=== PATIENT | male | born 1965 | race Caucasian/White ===

== ENCOUNTER → 2017-10-26 16:55 | Outpatient (CLI) | payer OTHER, SELFPAY ==
[2017-10-26 17:10] LABS: Absolute Lymphocyte Count 2.62 X10^3/ul (0.83-4.51); Absolute Neutrophil Count 7.2 X10^3/uL (2.0-7.7); Basophil# 0.02 X10^3/uL; Basophil% 0.2 % (0-1); Differential Indicated SCAN CRITERIA MET; Eosinophil# 0.07 X10^3/uL; Eosinophils% 0.7 % (0-5); Hematocrit 39.6 % (40-54); Hemoglobin 11.9 g/dl (13.0-16.5); Lymphocyte # 2.62 X10^3/ul (4.0); Mean Corp Hgb Conc 30.1 g/gl (32-36); Mean Corpuscular Hgb 22.5 pg (27.0-32.0); Mean Corpuscular Volume 74.9 fL (80-94); Mean Platelet Vol. 9.1 fl (6.2-12.0); Monocyte# 0.54 X10^3/uL; Monocyte% 5.2 % (0-10); Neutrophil # 7.19 X10^3/uL (2.7-7.7); Neutrophil % 68.6 % (47-70); POSITIVE COUNT NO; POSITIVE DIFFERENTIAL NO; POSITIVE MORPHOLOGY YES; Platelet Count 465 K/mm3 (150-450); RBC Distribution Width CV 17.4 % (11.6-14.6); RBC Distribution Width SD 45.7 fl (35.1-43.9); Red Blood Count 5.29 M/mm3 (4.6-6.2); White Blood Count 10.5 K/mm3 (4.4-11.0)
[2017-10-26 17:25] LABS: ALB/GLOB Ratio 0.4 RATIO (0.9-2.4); AST(SGOT) 6 U/L (15-37); Alanine Aminotransfer ALT/SGPT 13 U/L (16-61); Albumin, Serum 2.7 g/dL (3.2-5.0); Alkaline Phosphatase 131 U/L (45-117); Anion Gap 7 (5-15); BUN 6 mg/dL (7-18); BUN/Creat Ratio 6.7 RATIO (10-20); Calcium,Total 9.4 mg/dL (8.5-10.1); Chloride 99 mmol/L (98-107); EST Glomerular Filtration Rate 94 mL/min (>60); Est Glom Filt Rate - Afr Amer 113 mL/min (>60); Globulin 7.1 g/dL (2.2-4.2); Glucose 206 mg/dL (74-106); Potassium 4.4 mmol/L (3.5-5.1); Prealbumin 18.8 mg/dL (20.0-40.0); Protein, Total 9.8 g/dL (6.4-8.2); Sodium Level 135 mmol/L (136-145)
[2017-10-26 17:38] LABS: Differential Comment SCANNED
== END ==
PROVIDERS: Visit Provider Nurse Practitioner
DX: E44.0 Moderate protein-calorie malnutrition (principal); E11.8 Type 2 diabetes mellitus with unspecified complications; E11.65 Type 2 diabetes mellitus with hyperglycemia; D50.9 Iron deficiency anemia, unspecified
CPT/HCPCS: 80053; 84134; 84550; 85025

== ENCOUNTER → 2018-08-09 18:54 | Outpatient (CLI) | payer OTHER, SELFPAY ==
[2018-08-09 10:03] VITALS: BMI 26.1
[2018-08-09 19:55] LABS: ALB/GLOB Ratio 0.4 RATIO (0.9-2.4); AST(SGOT) 9 U/L (15-37); Alanine Aminotransfer ALT/SGPT 15 U/L (16-61); Albumin, Serum 2.7 g/dL (3.2-5.0); Alkaline Phosphatase 123 U/L (45-117); Anion Gap 7 (5-15); BUN 9 mg/dL (7-18); Chloride 102 mmol/L (98-107); Cholesterol 177 mg/dL (200); EST Glomerular Filtration Rate 83 mL/min (>60); Est Glom Filt Rate - Afr Amer 100 mL/min (>60); Globulin 6.7 g/dL (2.2-4.2); Glucose 219 mg/dL (74-106); High Density Lipoprotein 47 mg/dL; Magnesium 2.1 mg/dL (1.6-2.6); Potassium 4.4 mmol/L (3.5-5.1); Prealbumin 27.5 mg/dL (20.0-40.0); Protein, Total 9.4 g/dL (6.4-8.2); Sodium Level 137 mmol/L (136-145); Triglycerides 86 mg/dL; Very Low Density Lipoprotein 17 mg/dL (5-40)
[2018-08-09 19:56] LABS: Absolute Lymphocyte Count 2.84 X10^3/ul (0.83-4.51); Absolute Neutrophil Count 9.2 X10^3/uL (2.0-7.7); Basophil# 0.05 X10^3/uL; Basophil% 0.4 % (0-1); Eosinophils% 0.8 % (0-5); Hemoglobin 11.9 g/dl (13.0-16.5); Lymphocyte # 2.84 X10^3/ul (4.0); Lymphocyte % 21.9 % (19-41); Mean Corp Hgb Conc 30.5 g/gl (32-36); Mean Corpuscular Hgb 22.8 pg (27.0-32.0); Mean Corpuscular Volume 74.9 fL (80-94); Mean Platelet Vol. 9.5 fl (6.2-12.0); Monocyte# 0.71 X10^3/uL; Monocyte% 5.5 % (0-10); Neutrophil # 9.23 X10^3/uL (2.7-7.7); Neutrophil % 71.2 % (47-70); Platelet Count 386 K/mm3 (150-450); RBC Distribution Width CV 15.4 % (11.6-14.6); Red Blood Count 5.21 M/mm3 (4.6-6.2)
[2018-08-09 19:59] LABS: Differential Indicated SCAN CRITERIA MET; POSITIVE COUNT YES; POSITIVE DIFFERENTIAL NO; POSITIVE MORPHOLOGY YES
[2018-08-09 20:26] LABS: Anisocytosis RARE; Differential Comment SCANNED; Hypochromasia RARE
== END ==
PROVIDERS: Referring Provider Nurse Practitioner; Visit Provider Nurse Practitioner
DX: E46 Unspecified protein-calorie malnutrition (principal); L73.2 Hidradenitis suppurativa; R25.2 Cramp and spasm; E11.65 Type 2 diabetes mellitus with hyperglycemia
CPT/HCPCS: 80053; 80061; 83735; 84134; 85025; 86140

== ENCOUNTER → 2019-08-04 21:59 | Outpatient (CLI) | payer OTHER, SELFPAY ==
[2019-08-04 18:36] VITALS: BMI 27.2
[2019-08-04 22:11] LABS: Absolute Lymphocyte Count 2.85 X10^3/uL (0.83-4.51); Absolute Neutrophil Count 5.3 X10^3/uL (2.0-7.7); Basophil# 0.06 X10^3/uL; Basophil% 0.7 % (0-1); Eosinophil# 0.11 X10^3/uL; Eosinophils% 1.2 % (0-5); Hematocrit 31.8 % (40-54); Hemoglobin 9.3 g/dL (13.0-16.5); Lymphocyte # 2.85 X10^3/ul (4.0); Lymphocyte % 31.9 % (19-41); Mean Corp Hgb Conc 29.2 g/dL (32-36); Mean Corpuscular Hgb 22.4 pg (27.0-32.0); Mean Corpuscular Volume 76.4 fL (80-94); Monocyte# 0.61 X10^3/uL; Monocyte% 6.8 % (0-10); NRBC Flagged by Analyzer 0 % (0-5); Neutrophil # 5.28 X10^3/uL (2.7-7.7); Neutrophil % 59.1 % (47-70); Platelet Count 234 K/mm3 (150-450); RBC Distribution Width CV 17.1 % (11.6-14.6); RBC Distribution Width SD 46.3 fl (35.1-43.9); Red Blood Count 4.16 M/mm3 (4.6-6.2); White Blood Count 8.9 K/mm3 (4.4-11.0)
[2019-08-04 22:19] LABS: ALB/GLOB Ratio 0.4 RATIO (0.9-2.4); AST(SGOT) 13 U/L (15-37); Alanine Aminotransfer ALT/SGPT 15 U/L (16-61); Albumin, Serum 2.3 g/dL (3.2-5.0); Alkaline Phosphatase 116 U/L (45-117); Anion Gap 5 (5-15); BUN 5 mg/dL (7-18); BUN/Creat Ratio 4.4 RATIO (10-20); Calcium,Total 8.8 mg/dL (8.5-10.1); Chloride 100 mmol/L (98-107); Cholesterol 170 mg/dL (200); Creatinine, Serum 1.13 mg/dL (0.70-1.30); EST Glomerular Filtration Rate 71 mL/min (>60); Est Glom Filt Rate - Afr Amer 86 mL/min (>60); Globulin 6.4 g/dL (2.2-4.2); Glucose 176 mg/dL (74-106); High Density Lipoprotein 50 mg/dL; Potassium 4.1 mmol/L (3.5-5.1); Protein, Total 8.7 g/dL (6.4-8.2); Sodium Level 136 mmol/L (136-145); Triglycerides 99 mg/dL; Very Low Density Lipoprotein 20 mg/dL (5-40)
== END ==
PROVIDERS: Referring Provider Nurse Practitioner; Visit Provider Nurse Practitioner
DX: E11.65 Type 2 diabetes mellitus with hyperglycemia (principal)
CPT/HCPCS: 80053; 80061; 85025

== ENCOUNTER → 2020-01-04 09:54 | Outpatient (CLI) | payer OTHER, SELFPAY ==
[2019-12-28 19:00] VITALS: BMI 27.1
== END ==
PROVIDERS: PCP Nurse Practitioner; Referring Provider Nurse Practitioner; Visit Provider Nurse Practitioner
DX: L73.2 Hidradenitis suppurativa (principal)
CPT/HCPCS: 87635; C9803; U0003

== ENCOUNTER 2020-03-22 08:46 | Observation (INO) | payer OTHER, SELFPAY ==
[2020-02-17 11:14] VITALS: BMI 27.7
[2020-03-11 12:16] VITALS: BMI 26.6
--- NOTE | 2020-03-16 15:59 | EKG12_ITS ---
Test Reason : PRE-OP Blood Pressure : / mmHG Vent. Rate : 080 BPM Atrial Rate : 080 BPM P-R Int : 128 ms QRS Dur : 096 ms QT Int : 374 ms P-R-T Axes : -21 062 097 degrees QTc Int : 431 ms Normal sinus rhythm Nonspecific T wave abnormality Abnormal ECG Confirmed by JOHN RODRIGUEZ, RAN ([id number]), newspaper managing editor JORDON DODD ([id number]) on 03/17/2020 9:53:09 AM Referred By: Cortez Smith Confirmed By:RAN LOPEZ MD
--- NOTE | 2020-03-21 20:38 | PCM.HP.BLA ---
History and Physical Date of Admission: 03/22/20 HISTORY OF PRESENT ILLNESS 54 year old man presents with longstanding hidradenitis in his bilateral inguinal areas, perineal area, and bilateral perianal areas. He is currently on Remicade. He has been on antibiotics intermittently in the past. He has had recent drainage and increasing pain in these areas. He denies fever. He has a history of diabetes mellitus and he had a HgbA1c in 03/11/20 which was 8.8. His last dose of Remicade was 02/09/20. His next dose of Remicade was scheduled for 03/08/20 and was put on hold. He presents at this time to discuss surgical options for treatment. PAST MEDICAL HISTORY Hidradenitis suppurativa of anus Anemia Malnutrition Pneumonia involving right lung COPD (chronic obstructive pulmonary disease) Diabetes type 2, uncontrolled Heart disease Hydradenitis Hyperlipidemia associated with type 2 diabetes mellitus Myocardial infarct Hypertension PAST SURGICAL HISTORY removal of cyst tonsillectomy and adenoidectomy hernia repair Stented coronary artery ALLERGIES Penicillins Sulfa (Sulfonamide Antibiotics) bupropion [From Wellbutrin] MEDICATIONS ferrous sulfate infliximab - on hold tramadol empagliflozin-metformin ER lisinopril semaglutide minocycline FAMILY HISTORY Aunt - Lung disease, lung cancer Father - Heart disease, Hypertension, high cholesterol, Diabetes Mother - Diabetes Daughter - Epilepsy SOCIAL HISTORY Smoking Status: Current every day smoker counseling given: provider counseling, counseling >10 minutes alcohol intake: never substance use type: does not use REVIEW OF SYSTEMS General - Denies fever and weight loss. Has fatigue. Eyes - Denies cataracts and glaucoma. ENT - Denies nasal congestion and sore throat. Has chronic sinus problems. Endocrine - Denies excessive thirst and urination. Skin - Denies suspicious lesions and skin cancer. Has multiple areas of hidradenitis involving bilateral inguinal areas, perineal area, and bilateral perianal areas. Musculoskeletal - Has joint pain and joint stiffness. Denies weakness of muscles and joints, back pain, and arthritis. Neuro - Denies headaches. Has lightheadedness. Cardiovascular - Denies chest pain and shortness of breath with exertion. Has fatigue and lightheadedness. Psych - Denies anxiety and depression. Respiratory - Denies chronic cough and shortness of breath. Patient is a smoker. Gastrointestinal - Denies nausea, vomiting and constipation. Has diarrhea. Hematologic - Denies abnormal bruising and bleeding. Has anemia. Genitourinary - Denies hematuria and urinary frequency. PHYSICAL EXAMINATION General - Alert and Oriented. HEENT - PERRL. EOMI. Throat is clear. Neck - Supple and nontender. No cervical adenopathy. Lungs - Clear to auscultation. Heart - Regular rate and rhythm. Abdomen - Soft and nondistended. On bilateral inguinal areas are extensive hidradenitis with induration, redness, and tenderness. No fluctuance. No purulent drainage. The left inguinal area measures 12 cm. The right inguinal area measures 10 cm. There is extension into the perineal area. Rectal - On bilateral perianal areas are extensive hidradenitis with induration, redness, and tenderness. No fluctuance. No purulent drainage. The left perianal area measures 8 cm. The right perianal area measures 10 cm. Approaches the anal opening. Extremities - FROM. No axillary adenopathy. Radial pulses are palpable. Neuro - CN II-XII grossly intact. Psych - Normal mood and affect. ASSESSMENT 1. Extensive hidradenitis bilateral inguinal and perineal areas. 2. Extensive hidradenitis bilateral perianal areas. 3. Smoker. 4. On watermaster use of Remicade. 5. Diabetes mellitus. PLAN Patient has extensive hidradenitis involving bilateral inguinal and perineal areas and bilateral perianal areas. He needs excision of the hidradenitis. Will excise in stages. Will leave the wound open and proceed with postoperative wound care with the VAC or daily Dakin's or Silver dressing changes. He states his most symptomatic area at this time is the left inguinal area which will be done first. Surgery will be done under general anesthesia with a surgical observation overnight stay in the hospital. Will send tissue to Pathology for analysis to rule out carcinoma and to Microbiology for culture. A positive culture will necessitate antibiotic therapy. After discharge will followup at [facility]. If there is a plateau in the healing process, can proceed with delayed closure with skin grafting. After healing, can then proceed with the next area of hidradenitis. It is important to stop the Remicade prior to any surgery as it will have a deleterious effect on the healing process. I would like him to be off the Remicade for up to 6 weeks prior to surgery. Will tentatively schedule the surgery for the first week of March. I instructed him to not take the 03/08/20 dose of Remicade. In the meantime, will order Doxycycline that he will take until surgery and for flare ups in the future. His HgbA1c result from 03/11/20 was 8.8. For an elective skin graft, if needed, in the future, his HgbA1c needs to be less than 8. Patient was informed of the risks and complications of the procedure including alternatives to surgery. These were discussed with the patient personally. Patient voices understanding and wishes to proceed. Some of the risks and complications were included in a form from the [place] [employer]. Encouraged patient to stop smoking as it may have deleterious effects on wound healing. After excision of the perianal hidradenitis, if there is a problem with healing secondary to stool contamination, then he would need a diverting colostomy. After surgery, depending on the healing process and his need for narcotics, he may need evaluation with Pain Management. Patient voices understanding. We discussed the current risks associated with COVID-19. While it is understood that there is a community spread of COVID-19, the risk of brennan COVID-19 while at [facility] ([facility]) is very low; however, the risk cannot be completely mitigated because of the community spread of the disease. We discussed in detail the risk of exposure to and/or potential harm posed by the COVID-19 virus with having a surgery/procedure at this time versus the risk of delaying the surgery/procedure. It is not possible to know either the risk of delaying the surgery or procedure or chance of getting an infection with perfect accuracy, but a joint decision was made to proceed at this time with the scheduled surgery/procedure as indicated on the consent form. Patient was notified that we will need to comply with any screening or testing [facility] wishes to perform or that surgery may be delayed for any positive results. Discussed with the patient that I was tested for COVID-19 on 08/13/19 which was negative and on 08/27/19 which was negative and on 09/10/19 which was negative and on 09/24/19 which was negative and on 10/08/19 which was negative and on 10/29/19 which was negative and on 11/19/19 which was negative and on 12/24/19 which was negative and on 01/14/20 which was negative and on 02/02/20 which was negative. My testing regimen at this time is to be COVID-19 tested every 2 weeks or so. I received the COVID-19 vaccine (Moderna) on 02/10/20 and the second vaccine dose was received on 03/09/20. Procedure Criteria Procedure Type: Elective COVID Risk Discussion: The surgeon/proceduralist and patient have discussed in detail the risk of exposure to and/or potential harm posed by the COVID-19 virus with having a surgery/procedure at this time versus the risk of delaying the surgery/procedure. It is not possible to know either the risk of delaying the surgery or procedure or chance of getting an infection with perfect accuracy, but a joint decision was made between the patient and the surgeon/proceduralist to proceed at this time with the scheduled surgery/procedure as indicated on the consent form.
[2020-03-22] VITALS (10 sets, daily range): BP systolic 100–160; BP diastolic 43–77; PULSE 76–90; RESP 16–18; TEMP 36.4–38.2; O2SAT 92–100; BMI 24.5
--- NOTE | 2020-03-22 | IMM_PTH ---
PATIENT: SVEN DUONG LOC: MS3 U#:[id number] AGE/SX: 54/M ROOM: [facility] [place] RE03/22/[address]: Dr. Cortez Smith MD : 1965 BED: 1 DIS: 03/24/2020 SPEC #: [id number] RECD: 03/23/20 13:05 STATUS: SOUT REQ #: [id number] DARRELL: 03/22/20 00:[address]: Cortez Smith DEPT: IMMUNOHISTOCHEMISTRY RECD BY: Criselda Scott ENTERED: 03/23/20 13:07 SP TYPE: IMMUNO OTHR DR: Adina Bhat, RADIOLOGIC TECHNOLOGIST MAMMOGRAM-C Tissues: Inguinal region, NOS Procedures: BCL-2 (add) CD138 (add) CD20 (add) CD3 (add) CD43 (add) CD45 (add) CD5 (add) CD79A (add) KI-67 (add) Pankeratin (initial) PHYSICIAN & [address] [address] SPECIMEN INFORMATION: Tissue Source: Left inguinal and perineal areas Clinical Info: Hidradenitis bilateral inguinal and perineal areas Specimen Number: [id number] #4 CPT code: 19681, 52563 x9 METHODOLOGY: Deparaffinized sections of prefer/formalin-fixed tissue or PAP/DQ stained slides are incubated with monoclonal/polyclonal antibodies/oligonucleotide probes. Localization is made via biotin free immunoperoxidase method. Appropriate controls are performed and reacted as expected. Results on target cell population are indicated in the following table: RESULTS: ANTIBODY / CLONE RESULT Block 4 AE1-3 (AE1/AE3/PCK26) negative CD3 (PS1) positive CD5 (SP10) positive CD20 (L26) positive CD43 (L60) positive CD45 (RP2/18) positive CD79a (11E3) positive CD138 (B-A38) negative BCL-2 (bcl-2/100/D5) negative Ki-67 (30-9) negative These tests were developed and their performance characteristics determined by [facility]. They may not have been cleared or approved by the U.S. Food and Drug Administration. The FDA has determined that such clearance or approval is not necessary. The above immunohistochemical/dualISH markers are ordered and reviewed by the Pathologist. INTERPRETATION: Skin and soft tissue of left inguinal and perineal regions, excisions: Polytypic (benign) lymph node tissue. AM:chrissie 03/24/2020
[2020-03-22 06:36] LABS: Bedside Glucose 129 mg/dL (70-110)
[2020-03-22] MEDS: Lactated Ringers 1,000 ML 100 ML IV ×2 (06:42→08:31)
--- NOTE | 2020-03-22 07:30 | SOF_PTH ---
PATIENT: SVEN DUONG LOC: MS3 U#:[id number] AGE/SX: 54/M ROOM: [facility] RE03/22/[address]: Dr. Cortez Smith MD : 1965 BED: 1 DIS: 03/24/2020 SPEC #: [id number] RECD: 03/22/20 09:26 STATUS: NIELS REGuero #: [id number] DARRELL: 03/22/20 07:[address]: Cortez Smith DEPT: SURGICAL PATHOLOGY RECD BY: Belinda Rondon ENTERED: 03/22/20 09:49 SP TYPE: SOFT TISS OTHR DR: Adina Bhat, DEVONTE Tissues: Soft tissues, NOS Procedures: Surgery Specimen Level IV HEADER OPERATION: Surgical preparation inguinal and perineal areas with excision PRE-OP DIAGNOSIS: Extensive hidradenitis bilateral inguinal and perineal areas; extensive hidradenitis bilateral perianal areas TISSUE SUBMITTED: Debrided hidradenitis left inguinal and perineal area MICROSCOPIC DIAGNOSIS Skin and soft tissue of left inguinal and perineal regions, excisions: Consistent with hidradenitis. Lymph node with reactive change. See comment. MELO:chrissie 03/23/2020 COMMENT Immunohistochemistry ([id number]) supports the above diagnosis. MICROSCOPIC DESCRIPTION Slides are reviewed. GROSS DESCRIPTION Received in fixative is one container labeled with the patient's name and designated debrided hidradenitis left inguinal and perineal area. The specimen consists of an irregular to semi-circular piece of ha-white to light brown skin measuring 17 x 6.5 cm and up to 2 cm in thickness. Also present in the container is a piece of soft tissue measuring 1.5 x 1.5 x 1.5 cm. The smaller piece may represent lymph node tissue. Sections do not reveal any mass lesion. Store Clerk Checker sections are submitted in four cassettes as follows: 1-3 - largest piece of skin with soft tissue, 4 - detached piece of soft tissue and possible lymph node, entirely submitted. / SJ:chrissie 03/22/20 TC:2 CPT: 14411
[2020-03-22] MEDS: Lidocaine 2% /Epi 1:100 (50ml) 50 ML Vial (08:10)
--- NOTE | 2020-03-22 08:37 | PCM.OPRPT ---
Report of Operation Date of Procedure: 03/22/20 Pre-Operative Diagnosis: 1. Extensive hidradenitis bilateral inguinal and perineal areas. 2. Extensive hidradenitis bilateral perianal areas. 3. Smoker. 4. On long term care pharmacist use of Remicade. 5. Diabetes mellitus. Post-Operative Diagnosis: 1. Extensive hidradenitis bilateral inguinal and perineal areas with extension to base of scrotum. 2. Extensive hidradenitis bilateral perianal areas. 3. Smoker. 4. On long term care pharmacist use of Remicade. 5. Diabetes mellitus. Surgery/Procedure Performed:: 1. Surgical preparation left inguinal area with excision hidradenitis (315 cm2 total wound). 2. Surgical preparation perineal area with excision hidradenitis (315 cm2 total wound). 3. Surgical preparation base left scrotum with incision and drainage and excision hidradenitis (315 cm2 total wound). Description of Surgical Findings:: 54 year old man presents with longstanding hidradenitis in his bilateral inguinal areas, perineal area, and bilateral perianal areas. He is currently on Remicade. He has been on antibiotics intermittently in the past. He has had recent drainage and increasing pain in these areas. He denies fever. He has a history of diabetes mellitus and he had a HgbA1c in 03/11/20 which was 8.8. His last dose of Remicade was 02/09/20. His next dose of Remicade was scheduled for 03/08/20 and was put on hold. He presents at this time to discuss surgical options for treatment. Patient was informed of the risks and complications of the procedure including alternatives to surgery. These were discussed with the patient personally. Patient voices understanding and wishes to proceed. Some of the risks and complications were included in a form from the [place] [employer]. Encouraged patient to stop smoking as it may have deleterious effects on wound healing. Size of defect left inguinal, perineal, and left base of scrotum - 21 x 15 x 2 cm. caramel cutter machine: None Type of Anesthesia:: General Specimen's removed: Hidradenitis left inguinal, perineal, and left base of scrotum to Pathology and Microbiology. Drains: None. Estimated Blood Loss (mL): 350 ml. Description of Procedure: Patient was taken to OR in supine position and was placed under general anesthesia. The left inguinal, perineal, and left scrotum areas werer prepped and draped in the usual fashion. Excess hair was shaved. SCD's were placed for DVT prophylaxis. Perioperative antibiotics were given intravenously. A lucas catheter was placed. Using xylocaine with epinephrine, the left inguinal, perineal, and left base of scrotum was infiltrated to help with postoperative pain relief. After waiting 5 minutes for the anesthetic to take effect, I proceeded with excision of extensive hidradenitis with purulent drainage and induration extending from the left inguinal area and mons pubis and perineal area and left base of scrotum. Extensive scarring was seen in the subcutaneous tissue and fat necrosis was present. Excision was carried down to the underlying muscular fascia. Hemostasis was obtained with electrocautery. The wound was irrigated with saline. There was more hidradenitis present in his right inguinal and mons pubis area and right perineal area and bilateral perianal area that will need excision in the future depending on how well this current wound heals. Discussed with the patient the need for a temporary diverting colostomy when the excision occurs in the perianal area. He understands that if stool contamination occurs after the surgery today, then the diverting colostomy would need to be done sooner. The size of the large hidradenitis wound involving the left inguinal area, mons pubis, perineal, and left base of scrotum area is 21 x 15 x 2 cm or 315 cm2. The wound was packed with Mepitel nonadherent dressing followed by Kerlix gauze and Betadine followed by dry Kerlix gauze and ABD pads compression dressing followed by meshed underwear. Patient tolerated the procedure well and was sent to PACU in satisfactory condition. Patient will be sent upstairs for continued postop care. Will begin Dakin's dressing changes tomorrow. Won't be able to maintain a VAC seal because of the surrounding infection that is still present. He will discharged home when he is tolerating po analgesia. After discharge, he will followup at the [facility]. If there is a plateau in the healing process, can then proceed with delayed closure with skin grafting. Grafts/Implants Used: None. - Complications None. - Admit VTE Documentation VTE Present on Admission: No VTE Mechan Device Prophylaxis: SCD's VTE Pharm Prophylaxis ordered?: No Surgery Charges CPT - 81501 ICD-10 - L73.2, E11.8, Z79.899, F17.200 00276 L73.2, E11.8, Z79.899, F17.200 87140 N49.2, L73.2, E11.8, Z79.899, F17.200
[2020-03-22 09:36] LABS: Bedside Glucose 144 mg/dL (70-110)
[2020-03-22] MEDS: Juven (unflavored) Packet 1 PACKET PO (16:21)
[2020-03-22] MEDS: Lactated Ringers 1,000 ML 60 ML IV (17:59)
[2020-03-22] MEDS: Lisinopril 20 MG Tablet PO (21:33)
[2020-03-23] VITALS (8 sets, daily range): BP systolic 128–166; BP diastolic 55–71; PULSE 70–85; RESP 16–20; TEMP 36.9–37.9; O2SAT 95–99
[2020-03-23 05:27] LABS: Hematocrit 24.6 % (40-54); Hemoglobin 7.4 g/dL (13.0-16.5); Mean Corp Hgb Conc 30.1 g/dL (32-36); Mean Corpuscular Hgb 23.6 pg (27.0-32.0); Mean Corpuscular Volume 78.6 fL (80-94); Mean Platelet Vol. 8.3 fl (6.2-12.0); Platelet Count 315 K/mm3 (150-450); RBC Distribution Width CV 13.9 % (11.6-14.6); RBC Distribution Width SD 39.8 fl (35.1-43.9); Red Blood Count 3.13 M/mm3 (4.6-6.2)
[2020-03-23 05:37] LABS: Erythrocyte Sedimentation Rate 50 mm/hr (0-20)
[2020-03-23 05:58] LABS: ALB/GLOB Ratio 0.3 RATIO (0.9-2.4); AST(SGOT) 8 U/L (15-37); Alanine Aminotransfer ALT/SGPT 7 U/L (16-61); Albumin, Serum 1.6 g/dL (3.2-5.0); Alkaline Phosphatase 84 U/L (45-117); Anion Gap 6 (5-15); BUN 12 mg/dL (7-18); BUN/Creat Ratio 11.3 RATIO (10-20); Calcium,Total 7.8 mg/dL (8.5-10.1); Chloride 102 mmol/L (98-107); Creatinine, Serum 1.06 mg/dL (0.70-1.30); EST Glomerular Filtration Rate 77 mL/min (>60); Est Glom Filt Rate - Afr Amer 93 mL/min (>60); Estimated Creatinine Clearance 75.28 ml/min; Globulin 4.6 g/dL (2.2-4.2); Glucose 116 mg/dL (74-106); Potassium 4.2 mmol/L (3.5-5.1); Prealbumin 8.2 mg/dL (20.0-40.0); Protein, Total 6.2 g/dL (6.4-8.2); Sodium Level 137 mmol/L (136-145)
[2020-03-23] MEDS: Iron Polysaccharide Complex 150 MG CAPSULE PO (08:35)
[2020-03-23] MEDS: Juven (unflavored) Packet 1 PACKET PO (08:35)
[2020-03-23] MEDS: Lisinopril 20 MG Tablet PO ×2 (10:31→21:27)
[2020-03-23] MEDS: Docusate Sodium 100 MG Capsule PO ×2 (10:31→21:27)
[2020-03-23] MEDS: Glucerna Shake 120 ML LIQUID PO ×4 (10:31→21:27)
--- NOTE | 2020-03-23 10:50 | CASEMGMT ---
SOLANGE NATARAJAN updated that patient will need HHC for wound care. Patient was provided a list of HHC providers including quality and resource use data and consistent with the patient?s preferred geographic region, medical needs, and insurance network. Patient to review agencies with and give choices.
[2020-03-23] MEDS: Lactated Ringers 1,000 ML 60 ML IV (11:23)
[2020-03-23] MEDS: HYDROmorphone 1 MG/ML Syringe IV (11:29)
[2020-03-23] MEDS: DAKIN'S SOL HALF STRENGTH (=0.25%) 1 APPLIC TOPICAL (11:31)
--- NOTE | 2020-03-23 12:13 | NURSING ---
wound photo: left groin/perineum
--- NOTE | 2020-03-23 14:00 | CASEMGMT ---
SOLANGE NATARAJAN in to discuss C choices with patient and . Patient and prefer [facility] or [facility]. SOLANGE NATARAJAN sent referral to [facility] and awaiting call back. SOLANGE NATARAJAN will continue to follow this patient and plan for a safe discharge.
--- NOTE | 2020-03-23 15:25 | PN.SURG_ITS ---
Subjective: Postop #1 Resting in bed, requiring IV pain meds for pain control. - Physical Exam Vitals/I&O's: Vital Signs Temp Pulse Resp BP Pulse Ox 99.3 F H 75 20 H 128/55 H 98 03/23/20 11:01 03/23/20 11:01 03/23/20 11:01 03/23/20 11:01 03/23/20 11:01 Oxygen Flow Rate (L/min) 6 Oxygen Delivery Method Room Air Weight: 160 lb 14.999 oz Body Mass Index (BMI) 24.5 Finger Stick Blood Glucose 144 Intake and Output for Last 24 Hours 03/21/20 03/22/20 03/23/20 23:59 23:59 23:59 Intake Total 2070.67 / 2070.67 1504 / 1504 Output Total 1600 / 1600 1700 / 1700 Balance 470.67 / 470.67 -196 / -196 General: Alert, Oriented x3, Cooperative HEENT: Atraumatic Oral: Moist Mucosa Lungs: Normal air movement Cardiovascular: Regular rate Extremities: No edema, Capillary Refill Less than 3 Seconds Skin: Ulcer/ Wound - Left groin wound is stable, no active bleeding. Dakin's dressing applied. Musculoskeletal: No Tenderness to Palpation of Joints or Extremities Neurological: Cranial nerves II-XII grossly intact Psych/Mental Status: Normal Affect, Appropriate Microbiology Past 72 Hours 03/22/20 08:30 Incision/Surgical Site Gram Stain - Final 03/22/20 08:30 Incision/Surgical Site Wound Culture - Preliminary Mixed Gram Positive Organisms 03/21/20 08:35 Interface Orders SARS-CoV-2 Antigen (Rapid) - Final Laboratory Results 03/23/20 05:16: WBC 9.0, RBC 3.13 L, Hgb 7.4 L, Hct 24.6 L, MCV 78.6 L, MCH 23.6 L, MCHC 30.1 L, RDW Std Deviation 39.8, RDW Coeff of Dana 13.9, Plt Count 315, MPV 8.3, ESR 50 H 03/23/20 05:16: Sodium 137, Potassium 4.2, Chloride 102, Carbon Dioxide 29.0, Anion Gap 6, BUN 12, Creatinine 1.06, Estim Creat Clear Calc 75.28, Est GFR (MDRD) Af Amer 93, Est GFR (MDRD) Non-Af 77, BUN/Creatinine Ratio 11.3, Glucose 116 H, Calcium 7.8 L, Total Bilirubin 0.20, AST 8 L, ALT 7 L, Alkaline Phosp hatase 84, C-React Prot Ext Range 118.00 H, Total Protein 6.2 L, Albumin 1.6 L, Globulin 4.6 H, Albumin/Globulin Ratio 0.3 L, Prealbumin 8.2 L Current Medications Diazepam (Diazepam 5 Mg Tablet) 5 mg PO 4X/DAY PRN PRN PRN Reason: SPASMS Docusate Sodium (Docusate Sodium 100 Mg Capsule) 100 mg PO BID [facility] Last Admin: 03/23/20 10:31 Dose: 100 mg Documented by: Hydromorphone HCl (Hydromorphone 1 Mg/Ml Syringe) 1 mg IV Q3H PRN PRN PRN Reason: Pain Score 6-10 Last Admin: 03/23/20 11:29 Dose: 1 mg Documented by: Clindamycin Phosphate 600 mg/ (Dextrose) 54 mls @ 100 mls/hr IV Q8 [facility] Last Admin: 03/23/20 13:37 Dose: 100 mls/hr Documented by: Lactated Ringer's () 1,000 mls @ 60 mls/hr IV .[id number] [facility] Last Admin: 03/23/20 11:23 Dose: 60 mls/hr Documented by: Sodium Chloride () 250 mls @ 15 mls/hr IV .[id number] PRN PRN Reason: Saline Flush Sodium Chloride () 250 mls @ 15 mls/hr IV .[id number] PRN PRN Reason: Additional IVPB Infusion L-Arginine/L-Glutamine/Calcium HMB (Curtis (Unflavored) Packet) 1 packet PO BIDCM [facility] Last Admin: 03/23/20 08:35 Dose: 1 packet Documented by: Lisinopril (Lisinopril 20 Mg Tablet) 20 mg PO BID [facility] Last Admin: 03/23/20 10:31 Dose: 20 mg Documented by: Nutritional Formula (Lactose Free) (Glucerna Shake 120 Ml Liquid) 120 ml PO 4X/DAY [facility] Last Admin: 03/23/20 13:37 Dose: 120 ml Documented by: Ondansetron HCl (Ondansetron 4 Mg/2 Ml Vial) 4 mg IV Q6H PRN PRN PRN Reason: NAUSEA Oxycodone HCl (Oxycodone 5 Mg Tablet) 10 mg PO Q4H PRN PRN PRN Reason: Pain Score 4-5 Polysaccharide Iron Complex (Iron Polysaccharide Complex 150 Mg Capsule) 150 mg PO DAILYCM [facility] Last Admin: 03/23/20 08:35 Dose: 150 mg Documented by: Promethazine HCl (Promethazine 25 Mg Tablet) 25 mg PO Q4H PRN PRN PRN Reason: NAUSEA/VOMITING Sodium Chloride (0.9% Saline Lock 10 Ml Syringe) 10 - 40 ml IV UD PRN PRN Reason: SALINE FLUSH Sodium Hypochlorite (Dakin's Selena Half Strength (=0.25%)) 1 applic TOPICAL DAILY [facility]; Protocol Last Admin: 03/23/20 11:31 Dose: 1 dose Documented by: Tramadol HCl (Tramadol 50 Mg Tablet) 50 mg PO TID PRN PRN PRN Reason: Pain Score 1-3 Medical Necessity - Tobacco Use Smoking Status: Heavy Smoker (>10/day) Assessment/Plan All Active Problems (Last Reviewed 03/14/20 @ 12:17 by Adina Bhat SENIOR CHEMICAL ENGINEER, SENIOR CHEMICAL ENGINEER-C) Tobacco dependence syndrome (Acute) Anemia (Acute) Malnutrition (Acute) Cough (Acute) Pneumonia involving right lung (Acute) Pain in the groin (Acute) Diabetes mellitus type 2, uncontrolled, with complications (Acute) 1. Extensive hidradenitis bilateral inguinal and perineal areas. 2. Extensive hidradenitis bilateral perianal areas. 3. Smoker. 4. On senior care use of Remicade. 5. Diabetes mellitus. Patient is complaining of incisional pain and not being able to sleep at night. Requiring IV pain meds for pain control. Wound is stable. No active bleeding. Daily Dakin's moistened gauze dressing changes. Preliminary operative wound cultures show Mixed gram positive organisms, continue Clindamycin. Hgb 7.4. Will continue to monitor. Prealbumin 7.4. Continue protein supplementation. Plan on discharge tomorrow.
--- NOTE | 2020-03-23 17:02 | CHAPLAIN ---
Type of Pastoral Visit _x__ Initial Visit ___ Follow-up Visit ___ On-call Visit ___ General Patient Visit ___ Spiritual Assessment ___ Family Conference ___ Bereavement ___ Rapid Response ___ Code Blue ___ Other (describe below) Pastoral Care Referral From _x__ Patient ___ Family ___ Nurse ___ Physician ___ Amusement Park Worker ___ Insurance Legal Assistant ___ Other (describe below) Sacrament/Intervention ___ Active listening ___ Anointing ___ Muslim ___ Bereavement ___ Communion ___ Susy exploration ___ ___ Life review ___ Prayer ___ Reconciliation ___ Sacrament of Sick _x__ Supportive presence ___ Wedding ___ Other (describe below) Pastoral Comments a referral was made for this patient for spiritual care; pt was resting at time of visit and is at bedside; states that patient needs to rest and will go home tomorrow, saying they do not need anything
[2020-03-24] VITALS (10 sets, daily range): BP systolic 148–157; BP diastolic 65–99; PULSE 60–80; RESP 16–18; TEMP 36.9–37.6; O2SAT 95–100
[2020-03-24] MEDS: HYDROmorphone 1 MG/ML Syringe IV (00:12)
[2020-03-24 07:04] LABS: Hemoglobin 9.3 g/dL (13.0-16.5); Mean Corpuscular Hgb 24.6 pg (27.0-32.0); Mean Corpuscular Volume 79.4 fL (80-94); Mean Platelet Vol. 8.3 fl (6.2-12.0); Platelet Count 310 K/mm3 (150-450); RBC Distribution Width CV 15.1 % (11.6-14.6); RBC Distribution Width SD 43.3 fl (35.1-43.9); Red Blood Count 3.78 M/mm3 (4.6-6.2); White Blood Count 11.4 K/mm3 (4.4-11.0)
[2020-03-24 07:34] LABS: Anion Gap 3 (5-15); BUN 13 mg/dL (7-18); BUN/Creat Ratio 11.9 RATIO (10-20); Calcium,Total 8.7 mg/dL (8.5-10.1); Chloride 100 mmol/L (98-107); Creatinine, Serum 1.09 mg/dL (0.70-1.30); EST Glomerular Filtration Rate 74 mL/min (>60); Est Glom Filt Rate - Afr Amer 90 mL/min (>60); Estimated Creatinine Clearance 73.21 ml/min; Glucose 135 mg/dL (74-106); Potassium 4.6 mmol/L (3.5-5.1); Sodium Level 134 mmol/L (136-145)
--- NOTE | 2020-03-24 09:07 | CASEMGMT ---
SOLANGE NATARAJAN called [facility] to follow-up regarding referral for [facility] for usp. [facility] is able to accept the patient. CM to fax discharge instructions when available. SOLANGE NATARAJAN updated the patient regarding HHC setup. Patient voiced understanding. Patient had no further questions or concerns at this time.
[2020-03-24] MEDS: Lisinopril 20 MG Tablet PO (09:32)
[2020-03-24] MEDS: Iron Polysaccharide Complex 150 MG CAPSULE PO (09:32)
[2020-03-24] MEDS: Juven (unflavored) Packet 1 PACKET PO (09:32)
[2020-03-24] MEDS: Docusate Sodium 100 MG Capsule PO (09:32)
[2020-03-24] MEDS: DAKIN'S SOL HALF STRENGTH (=0.25%) 1 APPLIC TOPICAL (09:33)
[2020-03-24] MEDS: Glucerna Shake 120 ML LIQUID PO ×2 (09:46→14:39)
[2020-03-24] MEDS: Lactated Ringers 1,000 ML 60 ML IV (11:25)
--- NOTE | 2020-03-24 14:16 | PN.SURG_ITS ---
Subjective: Postop #2 Patient is resting in bed - Physical Exam Vitals/I&O's: Vital Signs Temp Pulse Resp BP Pulse Ox 98.5 F 60 18 153/69 H 97 03/24/20 09:25 03/24/20 09:25 03/24/20 09:25 03/24/20 09:25 03/24/20 09:25 Oxygen Flow Rate (L/min) 6 Oxygen Delivery Method Room Air Weight: 160 lb 14.999 oz Body Mass Index (BMI) 24.5 Finger Stick Blood Glucose 144 Intake and Output for Last 24 Hours 03/22/20 03/23/20 03/24/20 23:59 23:59 23:59 Intake Total 2070.67 / 2070.67 2616 / 2616 1250 / 1250 Output Total 1600 / 1600 3850 / 3850 1000 / 1000 Balance 470.67 / 470.67 -1234 / -1234 250 / 250 General: Alert, Oriented x3, Cooperative HEENT: Atraumatic Oral: Moist Mucosa Lungs: Normal air movement Cardiovascular: Regular rate Extremities: Capillary Refill Less than 3 Seconds, No Calf Tenderness Skin: Ulcer/ Wound - Left groin wound is stable, not active bleeding. Dakin's dressing intact. Musculoskeletal: No Tenderness to Palpation of Joints or Extremities Neurological: Cranial nerves II-XII grossly intact Psych/Mental Status: Normal Affect, Appropriate Microbiology Past 72 Hours 03/22/20 08:30 Incision/Surgical Site Gram Stain - Final 03/22/20 08:30 Incision/Surgical Site Wound Culture - Preliminary GPC Poss Enterococcus sp Streptococcus group F 03/22/20 08:30 Incision/Surgical Site Anaerobic Culture - Preliminary Checking for anaerobes, further studies to follow. 03/21/20 08:35 Interface Orders SARS-CoV-2 Antigen (Rapid) - Final Laboratory Results 03/23/20 22:19: Blood Type A POSITIVE, Antibody Screen NEGATIVE, Crossmatch See Detail 03/24/20 06:52: WBC 11.4 H, RBC 3.78 L, Hgb 9.3 L, Hct 30.0 L, MCV 79.4 L, MCH 24.6 L, MCHC 31.0 L, RDW Std Deviation 43.3, RDW Coeff of Dana 15.1 H, Plt Count 310, MPV 8.3 03/24/20 06:52: Sodium 134 L, Potassium 4.6, Chloride 100, Carbon Dioxide 31.0, Anion Gap 3 L, BUN 13, Creatinine 1.09, Estim Creat Clear Calc 73.21, Est GFR (MDRD) Af Amer 90, Est GFR (MDRD) Non-Af 74, BUN/Creatinine Ratio 11.9, Glucose 135 H, Calcium 8.7 Current Medications Diazepam (Diazepam 5 Mg Tablet) 5 mg PO 4X/DAY PRN PRN PRN Reason: SPASMS Diphenhydramine HCl (Diphenhydramine 25 Mg Capsule) 50 mg PO QHS PRN PRN PRN Reason: SLEEP Docusate Sodium (Docusate Sodium 100 Mg Capsule) 100 mg PO BID [facility] Last Admin: 03/24/20 09:32 Dose: 100 mg Documented by: Hydromorphone HCl (Hydromorphone 1 Mg/Ml Syringe) 1 mg IV Q3H PRN PRN PRN Reason: Pain Score 6-10 Last Admin: 03/24/20 00:12 Dose: 1 mg Documented by: Clindamycin Phosphate 600 mg/ (Dextrose) 54 mls @ 100 mls/hr IV Q8 [facility] Last Infusion: 03/24/20 06:38 Dose: Infused Documented by: Lactated Ringer's () 1,000 mls @ 60 mls/hr IV .[id number] [facility] Last Admin: 03/24/20 11:25 Dose: 60 mls/hr Documented by: Sodium Chloride () 250 mls @ 15 mls/hr IV .[id number] PRN PRN Reason: Saline Flush Sodium Chloride () 250 mls @ 15 mls/hr IV .[id number] PRN PRN Reason: Additional IVPB Infusion L-Arginine/L-Glutamine/Calcium HMB (Curtis (Unflavored) Packet) 1 packet PO BIDCM [facility] Last Admin: 03/24/20 09:32 Dose: 1 packet Documented by: Lisinopril (Lisinopril 20 Mg Tablet) 20 mg PO BID [facility] Last Admin: 03/24/20 09:32 Dose: 20 mg Documented by: Nutritional Formula (Lactose Free) (Glucerna Shake 120 Ml Liquid) 120 ml PO 4X/DAY [facility] Last Admin: 03/24/20 09:46 Dose: 120 ml Documented by: Ondansetron HCl (Ondansetron 4 Mg/2 Ml Vial) 4 mg IV Q6H PRN PRN PRN Reason: NAUSEA Oxycodone HCl (Oxycodone 5 Mg Tablet) 10 mg PO Q4H PRN PRN PRN Reason: Pain Score 4-5 Polysaccharide Iron Complex (Iron Polysaccharide Complex 150 Mg Capsule) 150 mg PO DAILYCM [facility] Last Admin: 03/24/20 09:32 Dose: 150 mg Documented by: Promethazine HCl (Promethazine 25 Mg Tablet) 25 mg PO Q4H PRN PRN PRN Reason: NAUSEA/VOMITING Sodium Chloride (0.9% Saline Lock 10 Ml Syringe) 10 - 40 ml IV UD PRN PRN Reason: SALINE FLUSH Sodium Hypochlorite (Dakin's Selena Half Strength (=0.25%)) 1 applic TOPICAL DAILY [facility]; Protocol Last Admin: 03/24/20 09:33 Dose: 1 dose Documented by: Tramadol HCl (Tramadol 50 Mg Tablet) 50 mg PO TID PRN PRN PRN Reason: Pain Score 1-3 Medical Necessity - Tobacco Use Smoking Status: Heavy Smoker (>10/day) Assessment/Plan All Active Problems (Last Reviewed 03/14/20 @ 12:17 by Adian Bhat MACHINE HOOP MAKER HELPER, MACHINE HOOP MAKER HELPER-C) Acute postoperative anemia due to expected blood loss (Acute) Tobacco dependence syndrome (Acute) Anemia (Acute) Malnutrition (Acute) Cough (Acute) Pneumonia involving right lung (Acute) Pain in the groin (Acute) Diabetes mellitus type 2, uncontrolled, with complications (Acute) 1. Extensive hidradenitis bilateral inguinal and perineal areas. 2. Extensive hidradenitis bilateral perianal areas. 3. Smoker. 4. 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 5. Diabetes mellitus. 6. Anemia of chronic disease, acute on chronic due to expected blood loss. Patient is complaining of incisional pain and not being able to sleep at night. Requiring IV pain meds for pain control. Wound is stable. No active bleeding. Daily Dakin's moistened gauze dressing changes. Preliminary operative wound cultures show Mixed gram positive organisms, continue Clindamycin. Hgb 7.4 yesterday. Transfused 2 units of PRBC's. Hgb today 9.3. Continue iron supplementation. Prealbumin 7.4. Continue protein supplementation. Discharge today.
--- NOTE | 2020-03-24 14:17 | DS.PCM_ITS ---
Discharge Date and Diagnosis Date of Admission: 03/22/20 - Secondary Discharge Diagnosis Chronic Problems: Chronic Problems (Last Reviewed 03/14/20 @ 12:17 by Adina Bhat NP, DOCUMENT MANAGEMENT SPECIALIST-C) Infliximab (Remicade) long-term use (Chronic) Hidradenitis suppurativa of anus (Chronic) Hypertension (Chronic) Hydradenitis (Chronic) Hospital Course and Treatment Consultations 03/22/20 10:05 Consult: Onc/Wound/freelance graphic designer Routine Comment: Reason for Consult:: left perineal wound Summary of Care Provided: The patient is a 54 year old M [] - Physical Exam Vitals/I&O's: Vital Signs Temp Pulse Resp BP Pulse Ox 98.5 F 60 18 153/69 H 97 03/24/20 09:25 03/24/20 09:25 03/24/20 09:25 03/24/20 09:25 03/24/20 09:25 Oxygen Flow Rate (L/min) 6 Oxygen Delivery Method Room Air Weight: 160 lb 14.999 oz Body Mass Index (BMI) 24.5 Finger Stick Blood Glucose 144 Intake and Output for Last 24 Hours 03/22/20 03/23/20 03/24/20 23:59 23:59 23:59 Intake Total 2070.67 / 2070.67 2616 / 2616 1250 / 1250 Output Total 1600 / 1600 3850 / 3850 1000 / 1000 Balance 470.67 / 470.67 -1234 / -1234 250 / 250 Microbiology Past 72 Hours 03/22/20 08:30 Incision/Surgical Site Gram Stain - Final 03/22/20 08:30 Incision/Surgical Site Wound Culture - Preliminary GPC Poss Enterococcus sp Streptococcus group F 03/22/20 08:30 Incision/Surgical Site Anaerobic Culture - Preliminary Checking for anaerobes, further studies to follow. 03/21/20 08:35 Interface Orders SARS-CoV-2 Antigen (Rapid) - Final Laboratory Results 03/23/20 22:19: Blood Type A POSITIVE, Antibody Screen NEGATIVE, Crossmatch See Detail 03/24/20 06:52: WBC 11.4 H, RBC 3.78 L, Hgb 9.3 L, Hct 30.0 L, MCV 79.4 L, MCH 24.6 L, MCHC 31.0 L, RDW Std Deviation 43.3, RDW Coeff of Dana 15.1 H, Plt Count 310, MPV 8.3 03/24/20 06:52: Sodium 134 L, Potassium 4.6, Chloride 100, Carbon Dioxide 31.0, Anion Gap 3 L, BUN 13, Creatinine 1.09, Estim Creat Clear Calc 73.21, Est GFR (MDRD) Af Amer 90, Est GFR (MDRD) Non-Af 74, BUN/Creatinine Ratio 11.9, Glucose 135 H, Calcium 8.7 Current Medications Diazepam (Diazepam 5 Mg Tablet) 5 mg PO 4X/DAY PRN PRN PRN Reason: SPASMS Diphenhydramine HCl (Diphenhydramine 25 Mg Capsule) 50 mg PO QHS PRN PRN PRN Reason: SLEEP Docusate Sodium (Docusate Sodium 100 Mg Capsule) 100 mg PO BID [facility] Last Admin: 03/24/20 09:32 Dose: 100 mg Documented by: Hydromorphone HCl (Hydromorphone 1 Mg/Ml Syringe) 1 mg IV Q3H PRN PRN PRN Reason: Pain Score 6-10 Last Admin: 03/24/20 00:12 Dose: 1 mg Documented by: Clindamycin Phosphate 600 mg/ (Dextrose) 54 mls @ 100 mls/hr IV Q8 [facility] Last Infusion: 03/24/20 06:38 Dose: Infused Documented by: Lactated Ringer's () 1,000 mls @ 60 mls/hr IV .[id number] [facility] Last Admin: 03/24/20 11:25 Dose: 60 mls/hr Documented by: Sodium Chloride () 250 mls @ 15 mls/hr IV .[id number] PRN PRN Reason: Saline Flush Sodium Chloride () 250 mls @ 15 mls/hr IV .[id number] PRN PRN Reason: Additional IVPB Infusion L-Arginine/L-Glutamine/Calcium HMB (Curtis (Unflavored) Packet) [facility] Last Admin: 03/24/20 09:32 Dose: 1 packet Documented by: Lisinopril (Lisinopril 20 Mg Tablet) 20 mg PO BID [facility] Last Admin: 03/24/20 09:32 Dose: 20 mg Documented by: Nutritional Formula (Lactose Free) (Glucerna Shake 120 Ml Liquid) 120 ml PO 4X/DAY [facility] Last Admin: 03/24/20 09:46 Dose: 120 ml Documented by: Ondansetron HCl (Ondansetron 4 Mg/2 Ml Vial) 4 mg IV Q6H PRN PRN PRN Reason: NAUSEA Oxycodone HCl (Oxycodone 5 Mg Tablet) 10 mg PO Q4H PRN PRN PRN Reason: Pain Score 4-5 Polysaccharide Iron Complex (Iron Polysaccharide Complex 150 Mg Capsule) 150 mg PO DAILYCM [facility] Last Admin: 03/24/20 09:32 Dose: 150 mg Documented by: Promethazine HCl (Promethazine 25 Mg Tablet) 25 mg PO Q4H PRN PRN PRN Reason: NAUSEA/VOMITING Sodium Chloride (0.9% Saline Lock 10 Ml Syringe) 10 - 40 ml IV UD PRN PRN Reason: SALINE FLUSH Sodium Hypochlorite (Dakin's Selena Half Strength (=0.25%)) 1 applic TOPICAL DAILY [facility]; Protocol Last Admin: 03/24/20 09:33 Dose: 1 dose Documented by: Tramadol HCl (Tramadol 50 Mg Tablet) 50 mg PO TID PRN PRN PRN Reason: Pain Score 1-3 Home Medications: Medications to take at Discharge pen needle, diabetic 32 gauge x 1/6 See Rx Instructions .ROUTE .MEDSUPPLY #1 ea 08/09/18 tramadol 50 mg tablet 50 mg PO TID PRN #90 tab 08/04/19 semaglutide 0.25 mg SC QWEEK 30 Days #1 ml 12/28/19 doxycycline hyclate 100 mg capsule 100 mg PO BID #60 cap 03/11/20 Ferrous Sulfate [High Potency Iron] 27 mg PO 03/15/20 Lisinopril 20 mg PO BID 03/15/20 Primary Care Physician: Adina Bhat NP, DOCUMENT MANAGEMENT SPECIALIST-C [Primary Care Provider] - Medical Necessity - Tobacco Use Smoking Status: Heavy Smoker (>10/day)
--- NOTE | 2020-03-24 16:26 | DCINST_ITS ---
You will use the following diet at home:: Regular Discharge Activity: May not drive while taking narcotic pain medications., May Shower, - - 20 lb weight lifting restriction May shower in (days): 1 - May wash wound with soap and water in the shower May resume sexual activity in: 4 weeks Weight Bearing Status: Weight bearing as tolerated Keep extremity elevated above heart level: Operative Extremity - When sitting keep legs elevated to help reduce swelling Call your doctor if your incision/area has: Continuous Slow Oozing, Sudden Increased Bleeding, Increased Pain/ Swelling, Increased Redness, Foul Smelling Discharge, Swelling at the incision site Call your doctor if you observe: Fever of 101 or Higher, Inability to urinate, Inability to have a bowel movement, Shortness of breath, Chest pain, Calf discomfort, Uncontrolled pain Change Dressing in (Days):: 1 - Wash wound with soap and water daily and apply Dakin's moistened gauze to the area, cover with ABDs and secure with tape Cleanse incision/area with: Soap & Water Allergies/Adverse Reactions: Allergies Penicillins Allergy (Verified 03/15/20 14:28) Unknown Sulfa (Sulfonamide Antibiotics) Allergy (Verified 03/15/20 14:28) Unknown bupropion [From Wellbutrin] Adverse Reaction (Severe, Verified 03/15/20 14:28) change in personality ,meanness and smoked more Medications to take at Discharge pen needle, diabetic 32 gauge x 1/6 See Rx Instructions .ROUTE .MEDSUPPLY #1 ea 08/09/18 tramadol 50 mg tablet 50 mg PO TID PRN #90 tab 08/04/19 semaglutide 0.25 mg SC QWEEK 30 Days #1 ml 12/28/19 Lisinopril 20 mg PO BID 03/15/20 Clindamycin [Cleocin] 300 mg PO TID 10 Days #60 cap 03/24/20 Docusate Sodium [Colace] 100 mg PO BID 30 Days #60 cap 03/24/20 Iron Polysaccharide Complex [Ferrex 150] 150 mg PO DAILYCM 30 Days #30 cap 03/24/20 Oxycodone HCl/Acetaminophen [Percocet 5-325 mg Tablet] 1 each PO Q6H PRN PRN 7 Days #40 tablet 03/24/20 Sodium Hypochlorite [Dakins Solution 0.25% (1/2 Strength)] 1 applic TOPICAL DAILY bottle 03/24/20 The following prescriptions were given: Clindamycin [Cleocin] 300 mg PO TID 10 Days #60 cap Transmission Status: Pending to [facility] Docusate Sodium [Colace] 100 mg PO BID 30 Days #60 cap Transmission Status: Pending to [facility] Iron Polysaccharide Complex [Ferrex 150] 150 mg PO DAILYCM 30 Days #30 cap Transmission Status: Pending to [facility] Oxycodone HCl/Acetaminophen [Percocet 5-325 mg Tablet] 1 each PO Q6H PRN PRN 7 Days #40 tablet PRN Reason: Pain Score 6-10 Transmission Status: Received by [facility] Primary Care Physician: Adina Bhat SWATCH MAKER, SWATCH MAKER-C [Primary Care Provider] - Test Results: Test results from this visit will be discussed in further detail at your follow- up appointment, if applicable. Please Follow Up With: Dr. Smith or Antonella When: Saturday03/28/20 at [facility] [phone] Proposed Discharge Date: 03/24/20
--- NOTE | 2020-03-24 17:10 | PCA ---
THIS WILTON WEAVER CALLED [facility] AND FAXED THE DISCHARGE INSTRUCTIONS, MEDICATION LIST, AND THE DRESSING INSTRUCTIONS TO THEM TO LET THEM KNOW THAT THEY ARE GOING HOME THIS EVENING
== END 2020-03-24 17:20 | disposition home health service (06) ==
LOC: MS3 03-23 07:14
PROVIDERS: Admitting Provider Surgery; PCP Nurse Practitioner; Referring Provider Surgery; Visit Provider Surgery
PROC: (CPT 11462; principal; 2020-03-22 07:15)
DX: L73.2 Hidradenitis suppurativa (principal); Z20.828 Contact with and (suspected) exposure to other viral communicable diseases; J44.9 Chronic obstructive pulmonary disease, unspecified; E78.5 Hyperlipidemia, unspecified; I10 Essential (primary) hypertension; I25.2 Old myocardial infarction; E11.9 Type 2 diabetes mellitus without complications; Z79.899 Other long term (current) drug therapy; F17.200 Nicotine dependence, unspecified, uncomplicated; D63.8 Anemia in other chronic diseases classified elsewhere; I25.10 Atherosclerotic heart disease of native coronary artery without angina pectoris; Z95.5 Presence of coronary angioplasty implant and graft; R94.31 Abnormal electrocardiogram [ECG] [EKG]
CPT/HCPCS: 00400; 11462; 11470; 55100; 36415; 36430; 80048; 80053; 82962; 84134; 85027; 85652; 86140; 86850; 86900; 86901; 86920; 86922; 87070; 87075; 87077; 87102; 87176; 87186; 87205; 87206; 87426; 88305; 88341; 88342; 93005; 94762; 96361; 96365; 96366; 96375; 96376; 97802; 99218; 99251; 99406; C9803; J7040; J7120; P9016; G0378; G0379; G0463; J2405

== ENCOUNTER 2020-04-04 08:15 | Outpatient (RCR) | payer OTHER, SELFPAY ==
[2020-03-22 11:10] VITALS: BMI 24.5
[2020-03-28 08:11] VITALS: BP 148/81; PULSE 106; RESP 18; TEMP 35.4; BMI 24.5
--- NOTE | 2020-03-28 23:08 | PCM.WC.PN ---
Type of Wound Date of Service: 03/28/20 Chief Complaint: Open surgical hidradenitis wound left inguinal, perineal, and base of scrotum. History of Wound: Surgery 03/22/20 - 1. Surgical preparation left inguinal area with excision hidradenitis (315 cm2 total wound). 2. Surgical preparation perineal area with excision hidradenitis (315 cm2 total wound). 3. Surgical preparation base left scrotum with incision and drainage and excision hidradenitis (315 cm2 total wound). Wound care - Dakin's dressing changes. Operative culture - Enterococcus faecalis and Streptococcus group F. Anaerobes are pending. Will stop his Cleocin and start Linezolid. Pathology - hidradenitis. Prealbumin from 03/23/20 was 8.2. Encourage nutritional supplementation with protein to help the healing process. HgbA1c from 03/11/20 was 8.8. Today he denies fever. His appetite is good. Progress of Wound: Recent surgery on 03/22/20. - Physical Exam Vital Signs Temp Pulse Resp BP 95.8 F L 106 H 18 148/81 H 03/28/20 08:11 03/28/20 08:11 03/28/20 08:11 03/28/20 08:11 Wound Measurements and Assessment WC - Nurse 1 - General Ulcer Measurement Start: 03/28/20 08:10 Freq: Status: Active Protocol: Activity Type Activity Date Activity User E-Sign Co-Sign Detail Recorded Client Recorded Date Recorded By Document 03/28/20 08:11 [facility] [id number] 03/28/20 08:37 [facility] 03/28/20 08:11 Wound Center Nurse 1 [Ulcer Assessment] #1- L GROIN/BUTTOCK POST OP -Combined with other wound No -Current Size (cm) - Length 23.7 -Current Size (cm) - Width 13.1 -Current Size (cm) - Depth 2.8 -Total Square Cm 310.47 -Date of Last Picture (Recall this 03/28/20 field) -Photo Taken Yes -Epithelialization None Present -Tunneling No -Undermining/Tunneling No -Circular Undermining No -Exudate Amt Large -Exudate Type Serosanguineous -Wound Margin Distinct, Outline Attached -Granulation Amt Large (67-100%) -Granulation Quality Pale,Red -Slough/Fibrin Yes -Necrosis Amt Small (1-33%) -Necrotic Tissue Type Adherent Slough -Texture ([place]imbola-wound Skin Appearance) Assessed, Scarring -Moisture ([place]imbola-wound Skin Appearance Assessed ) -Color ([place]ola-wound Skin Appearance) Assessed, Erythema -Temperature ([place]ola-wound Skin No Abnormality Appearance) (Pt Warm) -Tenderness on Palpation ([place]imbola-wound Yes Skin Appearance) -Ulcer Cleansing SOAPY WATER -Foul Odor after Cleansing No -Anesthetic Used 4% Lidocaine Solution - Nurse 2 - General Ulcer CM Notes Start: 03/28/20 08:10 Freq: Status: Active Protocol: Activity Type Activity Date Activity User E-Sign Co-Sign Detail Recorded Client Recorded Date Recorded By Document 03/28/20 09:37 LIZETTE [id number] 03/28/20 09:47 LIZETTE 03/28/20 09:37 Wound Center Nurse 2 [Procedure/Treatment] -Time 09:37 -Correct Patient No -Correct Side, Site, Position No -Correct Procedure No -Procedure Performed No -Tunneling No -Undermining/Tunneling No -Circular Undermining No -Wound/Ulcer Outcome Not Healed -Ulcer Cleansing Rinsed/ Irrigated with Saline -Foul Odor after Cleansing No -Bioengineered Tissue No -Treatment Response Procedure Tolerated Well -Debridement - Subq, 1st 20sq cm No [See Physician Procedure note for Specifics] Pain Scale: 0-10 Numeric [Pain] -Is Patient Pain Free? Yes - Nurse 3 - General Ulcer D/C NN Start: 03/28/20 08:10 Freq: Status: Active Protocol: Activity Type Activity Date Activity User E-Sign Co-Sign Detail Recorded Client Recorded Date Recorded By Document 03/28/20 10:00 DL [id number] 03/28/20 10:02 DL 03/28/20 10:00 Wound Care Nurse 3 [Wound Dressing] #1- L GROIN/BUTTOCK POST OP -Ulcer Cleansing Wound Cleanser -Foul Odor after Cleansing No -Other Dressing Moist Dressing -Primary Dressing Covered/Secured Dry Gauze, with Secured with Tape [Post Procedure Tolerated] -Treatment Response Procedure Tolerated Well Pain Scale: 0-10 Numeric [Pain] -Is Patient Pain Free? Yes - Visit Discharge [Visit Discharge Information] -Discharge Condition Stable -Ambulatory Status Ambulatory, Walker -Transportation Private Auto -Notes: Pt to resume Dakins at home Debridement Note Post-Debridement Measurements/Treatment WC - Nurse 2 - General Ulcer CM Notes Start: 03/28/20 08:10 Freq: Status: Active Protocol: Activity Type Activity Date Activity User E-Sign Co-Sign Detail Recorded Client Recorded Date Recorded By Document 03/28/20 09:37 [id number] 03/28/20 09:47 JF 03/28/20 09:37 Wound Center Nurse 2 #1- L GROIN/BUTTOCK POST OP -Time 09:37 -Correct Patient No -Correct Side, Site, Position No -Correct Procedure No -Procedure Performed No -Tunneling No -Undermining/Tunneling No -Circular Undermining No -Wound/Ulcer Outcome Not Healed -Ulcer Cleansing Rinsed/ Irrigated with Saline -Foul Odor after Cleansing No -Bioengineered Tissue No -Treatment Response Procedure Tolerated Well -Debridement - Subq, 1st 20sq cm No Pain Scale: 0-10 Numeric Is Patient Pain Free? Yes WC - Nurse 3 - General Ulcer D/C NN Start: 03/28/20 08:10 Freq: Status: Active Protocol: Activity Type Activity Date Activity User E-Sign Co-Sign Detail Recorded Client Recorded Date Recorded By Document 03/28/20 10:00 DL [id number] 03/28/20 10:02 DL 03/28/20 10:00 Wound Care Nurse 3 #1- L GROIN/BUTTOCK POST OP -Ulcer Cleansing Wound Cleanser -Foul Odor after Cleansing No -Other Dressing Moist Dressing -Primary Dressing Covered/Secured with Dry Gauze, Secured with Tape Treatment Response Procedure Tolerated Well Pain Scale: 0-10 Numeric Is Patient Pain Free? Yes WC - Visit Discharge Discharge Condition Stable Ambulatory Status Ambulatory, Walker Transportation Private Auto Notes: Pt to resume Dakins at home Wound debrided: #1 Left inguinal, perineal, and base of scrotum. Laterality: Left Wound Grade/Stage: 2. No debridement was completed today - Patient had recent surgery on 03/22/20. Assessment/Plan Assessment: 1. Extensive hidradenitis bilateral inguinal and perineal areas with extension to base of scrotum. 2. Extensive hidradenitis bilateral perianal areas. 3. Smoker. 4. 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 5. Diabetes mellitus. 6. s/p surgical preparation left inguinal area with excision hidradenitis (315 cm2 total wound) and surgical preparation perineal area with excision hidradenitis (315 cm2 total wound) and surgical preparation base left scrotum with incision and drainage and excision hidradenitis (315 cm2 total wound). Plan: Continue Dakin's dressing changes daily. Operative culture shows Enterococcus faecalis and Streptococcus group F. He will stop the Clindamycin and start Linezolid. Prealbumin from 03/23/20 was 8.2. Encourage nutritional supplementation with protein to help the healing process. HgbA1c from 03/11/20 was 8.8. If a skin graft is needed in the future, his HgbA1c needs to be less than 8. Followup one week. [id number]: [id number] Global Visit - ICD-10 - Z48.89, S31.104A, S31.30xA, N49.2, L73.2, E11.8, Z79.899, F17.200
[2020-04-04 08:07] VITALS: BP 158/63; PULSE 98; RESP 18; TEMP 35.8; BMI 24.5
--- NOTE | 2020-04-04 13:10 | PCM.WC.PN ---
(1) Non-healing open wound of left groin Status: Acute Code(s): S31.104A - Unspecified open wound of abdominal wall, left lower quadrant without penetration into peritoneal cavity, initial encounter (2) Open wound of scrotum Status: Acute Code(s): S31.30XA - Unspecified open wound of scrotum and testes, initial encounter (3) Acute postoperative anemia due to expected blood loss Status: Acute Code(s): D62 - Acute posthemorrhagic anemia (4) Malnutrition Status: Chronic Qualifiers: Malnutrition type: protein-calorie malnutrition Protein-calorie malnutrition severity: severe Qualified Code(s): E43 - Unspecified severe protein-calorie malnutrition Code(s): E46 - Unspecified protein-calorie malnutrition (5) Hydradenitis Status: Chronic Code(s): L73.2 - Hidradenitis suppurativa Comment: bilateral inguinal and left base of scrotum (6) Tobacco dependence syndrome Status: Chronic Code(s): F17.200 - Nicotine dependence, unspecified, uncomplicated (7) Infection of scrotum Status: Chronic Code(s): N49.2 - Inflammatory disorders of scrotum Comment: hidradenitis left base of scrotum Type of Wound Date of Service: 04/04/20 Chief Complaint: Open surgical hidradenitis wound left inguinal, perineal, and base of scrotum. History of Wound: Surgery 03/22/20 - 1. Surgical preparation left inguinal area with excision hidradenitis (315 cm2 total wound). 2. Surgical preparation perineal area with excision hidradenitis (315 cm2 total wound). 3. Surgical preparation base left scrotum with incision and drainage and excision hidradenitis (315 cm2 total wound). Wound care - Dakin's dressing changes. Operative culture - Enterococcus faecalis and Streptococcus group F, Anaerobic cocci and Prevotella bivia. Will stop his Cleocin and start Linezolid. Will start Flagyl for the anaerobes. Pathology - hidradenitis. Prealbumin from 03/23/20 was 8.2. Encourage nutritional supplementation with protein to help the healing process. HgbA1c from 03/11/20 was 8.8. Today he denies fever. His appetite has not been good. Encouraged protein supplementation. Progress of Wound: Recent surgery on 03/22/20. - Physical Exam Vital Signs Temp Pulse Resp BP 96.5 F L 98 18 158/63 H 04/04/20 08:07 04/04/20 08:07 04/04/20 08:07 04/04/20 08:07 General: Alert, Oriented x3, Cooperative HEENT: Atraumatic Oral: Moist Mucosa Lungs: Normal air movement Cardiovascular: Regular rate Abdomen: Soft Extremities: Capillary Refill Less than 3 Seconds Skin: Ulcer/ Wound - Left groin surgical wound is pink with granulation tissue. He is having drainage from an area on his right groin (not present at time of exam) but there is an area of firmness on the right groin. There is also a painful firm area on left buttock, just distal to the wound. The area is not draining. Wound Measurements and Assessment - Nurse 1 - General Ulcer Measurement Start: 03/28/20 08:10 Freq: Status: Active Protocol: Activity Type Activity Date Activity User E-Sign Co-Sign Detail Recorded Client Recorded Date Recorded By Document 04/04/20 08:07 [facility] [id number] 04/04/20 08:20 [facility] 04/04/20 08:07 Wound Center Nurse 1 [Ulcer Assessment] #1- L GROIN/BUTTOCK POST OP -Combined with other wound No -Current Size (cm) - Length 18 -Current Size (cm) - Width 13 -Current Size (cm) - Depth 2 -Total Square Cm 234 -Photo Taken No -Epithelialization None Present -Tunneling No -Undermining/Tunneling No -Circular Undermining No -Exudate Amt Large -Exudate Type Serosanguineous -Wound Margin Distinct, Outline Attached -Granulation Amt Large (67-100%) -Granulation Quality Red -Slough/Fibrin Yes -Necrosis Amt Medium (34-66%) -Texture (Abimbola-wound Skin Appearance) Assessed, Scarring -Moisture (Abimbola-wound Skin Appearance Assessed ) -Color (Abimbola-wound Skin Appearance) Assessed -Temperature (Abimbola-wound Skin No Abnormality Appearance) (Pt Warm) -Tenderness on Palpation (Abimbola-wound Yes Skin Appearance) -Ulcer Cleansing soapy water -Foul Odor after Cleansing No -Anesthetic Used 4% Lidocaine Solution BEKA - Nurse 2 - General Ulcer CM Notes Start: 03/28/20 08:10 Freq: Status: Active Protocol: Activity Type Activity Date Activity User E-Sign Co-Sign Detail Recorded Client Recorded Date Recorded By Document 04/04/20 09:02 [id number] 04/04/20 09:12 04/04/20 09:02 Wound Center Nurse 2 [Procedure/Treatment] -Time 09:05 -Correct Patient Yes -Correct Side, Site, Position Yes -Correct Procedure Yes -Procedure Performed Yes -Type of Procedure Debridement -Clinical Debridement Subcutaneous -Tissue Removed Subcutaneous -Post Debridement (cm) - Length 20 -Post Debridement (cm) - Width 9 -Post Debridement (cm) - Depth 1.5 -Total Square (Post) (cm) 180 -Area of Debridement (cm) - Length 20 -Area of Debridement (cm) - Width 9 -Total Square (Area) (cm) 180 -Tunneling No -Undermining/Tunneling No -Circular Undermining No -Wound/Ulcer Outcome Not Healed -Ulcer Cleansing Rinsed/ Irrigated with Saline -Foul Odor after Cleansing No -Bioengineered Tissue No -Bleeding Controlled with Pressure -Offloading No -Treatment Response Procedure Tolerated Well -Debridement - Subq, 1st 20sq cm Yes -Debridement, SubQ, ea addt'l 20sq cm 8 or part thereof [See Physician Procedure note for Specifics] Pain Scale: 0-10 Numeric [Pain] -Is Patient Pain Free? Yes Musculoskeletal: Tenderness Neurological: Cranial nerves II-XII grossly intact Psych/Mental Status: Normal Affect, Appropriate Debridement Note Post-Debridement Measurements/Treatment WC - Nurse 2 - General Ulcer CM Notes Start: 03/28/20 08:10 Freq: Status: Active Protocol: Activity Type Activity Date Activity User E-Sign Co-Sign Detail Recorded Client Recorded Date Recorded By Document 03/28/20 09:37 [id number] 03/28/20 09:47 Document 04/04/20 09:02 [id number] 04/04/20 09:12 03/28/20 04/04/20 09:37 09:02 Wound Center Nurse 2 #1- L GROIN/BUTTOCK POST OP -Time 09:37 09:05 -Correct Patient No Yes -Correct Side, Site, Position No Yes -Correct Procedure No Yes -Procedure Performed No Yes -Type of Procedure Debridement -Clinical Debridement Subcutaneous -Tissue Removed Subcutaneous -Post Debridement (cm) - Length 20 -Post Debridement (cm) - Width 9 -Post Debridement (cm) - Depth 1.5 -Total Square (Post) (cm) 180 -Area of Debridement (cm) - Length 20 -Area of Debridement (cm) - Width 9 -Total Square (Area) (cm) 180 -Tunneling No No -Undermining/Tunneling No No -Circular Undermining No No -Wound/Ulcer Outcome Not Healed Not Healed -Ulcer Cleansing Rinsed/ Rinsed/ Irrigated with Irrigated with Saline Saline -Foul Odor after Cleansing No No -Bioengineered Tissue No No -Bleeding Controlled with Pressure -Offloading No -Treatment Response Procedure Procedure Tolerated Well Tolerated Well -Debridement - Subq, 1st 20sq cm No Yes -Debridement, SubQ, ea addt'l 20sq cm 8 or part thereof Pain Scale: 0-10 Numeric Is Patient Pain Free? Yes Yes - Nurse 3 - General Ulcer D/C NN Start: 03/28/20 08:10 Freq: Status: Active Protocol: Activity Type Activity Date Activity User E-Sign Co-Sign Detail Recorded Client Recorded Date Recorded By Document 03/28/20 10:00 BREANNA [id number] 03/28/20 10:02 BREANNA 03/28/20 10:00 Wound Care Nurse 3 #1- L GROIN/BUTTOCK POST OP -Ulcer Cleansing Wound Cleanser -Foul Odor after Cleansing No -Other Dressing Moist Dressing -Primary Dressing Covered/Secured with Dry Gauze, Secured with Tape Treatment Response Procedure Tolerated Well Pain Scale: 0-10 Numeric Is Patient Pain Free? Yes WC - Visit Discharge Discharge Condition Stable Ambulatory Status Ambulatory, Walker Transportation Private Auto Notes: Pt to resume Dakins at home Wound debrided: Groin wound Laterality: Left Type of Debridement: Excisional debridement Anesthesia Used: 5% Lidocaine Gel, Cetacaine Depth: Down to and including healthy tissue, in the subcutaneous layer Percentage of wound debrided: 100 Instrument Used: 7mm curette Tissue Removed: Subcutaneous tissue and slough Severity: Fat Layer Exposed Amount of bleeding with debridement: Moderate Bleeding Controlled with: Pressure, Compression and gauze Patient tolerated procedure well Assessment/Plan Active Problems (Last Updated 03/24/20 @ 21:[address] Cortez Smith MD) Open wound of scrotum (Acute) Non-healing open wound of left groin (Acute) Infection of scrotum (Chronic) hidradenitis left base of scrotum Acute postoperative anemia due to expected blood loss (Acute) Tobacco dependence syndrome (Chronic) Malnutrition (Chronic) Hydradenitis (Chronic) bilateral inguinal and left base of scrotum Assessment: 1. Extensive hidradenitis bilateral inguinal and perineal areas with extension to base of scrotum. 2. Extensive hidradenitis bilateral perianal areas. 3. Smoker. 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 5. Diabetes mellitus. 6. s/p surgical preparation left inguinal area with excision hidradenitis (315 cm2 total wound) and surgical preparation perineal area with excision hidradenitis (315 cm2 total wound) and surgical preparation base left scrotum with incision and drainage and excision hidradenitis (315 cm2 total wound). Plan: Continue Dakin's dressing changes daily. Operative culture shows Enterococcus faecalis and Streptococcus group F, Anaerobic cocci and Prevotella bivia. He stopped the Clindamycin and is now taking Linezolid. Will start him on Flagyl for the anaerobes. Prealbumin from 03/23/20 was 8.2. Encourage nutritional supplementation with protein to help the healing process. Discussed this at length with both the patient and his . HgbA1c from 03/11/20 was 8.8. If a skin graft is needed in the future, his HgbA1c needs to be less than 8. Followup one week. 111xxx-113xx: [id number] Ayla subq tissue 20 sq cm/<
== END 2020-04-10 23:59 ==
LOC: WC 08:15
PROVIDERS: PCP Nurse Practitioner; Referring Provider Nurse Practitioner Family; Visit Provider Surgery
DX: L73.2 Hidradenitis suppurativa (principal); E11.9 Type 2 diabetes mellitus without complications; F17.200 Nicotine dependence, unspecified, uncomplicated; E43 Unspecified severe protein-calorie malnutrition; Z68.24 Body mass index [BMI] 24.0-24.9, adult; N49.2 Inflammatory disorders of scrotum; Z48.89 Encounter for other specified surgical aftercare; L98.492 Non-pressure chronic ulcer of skin of other sites with fat layer exposed
CPT/HCPCS: 11042; 11045; 99213; G0463

== ENCOUNTER → 2020-04-25 10:17 | Outpatient (CLI) | payer OTHER, SELFPAY ==
[2020-04-25 08:43] VITALS: BMI 24.5
--- NOTE | 2020-04-25 10:19 | VDLE_ITS ---
Reason For Study: Lt leg/foot swelling Procedure LEFT This is a venous duplex using B-mode, color GSV is normal. flow and spectral Doppler. FV is compressible, spontaneous, phasic, Exam performed in department. competent and demonstrates normal A preliminary report was called and/or faxed augmentation. to Jorge Alberto. POP V is compressible, spontaneous, phasic, competent and demonstrates normal augmentation. T/P Trunk is compressible. PTV is compressible. LT PerV is compressible. CFV and SFJ not visualized due to open wound with bandage. Interpretation Summary Deep veins of the left lower extremity are patent and compressible segmentally. There is no evidence of left lower extremity deep vein thrombosis. Valvular competence appears intact within the proximal deep venous system on the left . The left great saphenous vein appears patent and compressible segmentally. The left common femoral vein and sapheno-femoral junction were not visualized due to the presence of an open wound with a bandage. Ordering Physician: Antonella Azul Referring Physician: Adina Bhat Performed By: Valeria Kinney RVT
== END ==
PROVIDERS: PCP Nurse Practitioner; Referring Provider Nurse Practitioner Family; Visit Provider Nurse Practitioner Family
DX: M79.89 Other specified soft tissue disorders (principal)
CPT/HCPCS: 93971

== ENCOUNTER 2020-05-09 08:45 | Outpatient (RCR) | payer OTHER, SELFPAY ==
[2020-04-11 00:38] VITALS: BP 158/63; PULSE 98; RESP 18; TEMP 35.8
[2020-04-11 08:50] VITALS: BP 161/46; PULSE 84; RESP 16; TEMP 35.9; BMI 24.5
--- NOTE | 2020-04-11 11:01 | PN.PCM_ITS ---
(1) Non-healing open wound of left groin Status: Acute Code(s): S31.104A - Unspecified open wound of abdominal wall, left lower quadrant without penetration into peritoneal cavity, initial encounter (2) Hydradenitis Status: Chronic Code(s): L73.2 - Hidradenitis suppurativa Comment: bilateral inguinal and left base of scrotum (3) Acute postoperative anemia due to expected blood loss Status: Acute Code(s): D62 - Acute posthemorrhagic anemia (4) Tobacco dependence syndrome Status: Chronic Code(s): F17.200 - Nicotine dependence, unspecified, uncomplicated (5) Diabetes mellitus type 2, uncontrolled, with complications Status: Acute Code(s): E11.8 - Type 2 diabetes mellitus with unspecified complications; E11.65 - Type 2 diabetes mellitus with hyperglycemia Type of Wound Date of Service: 04/11/20 Chief Complaint: Open surgical hidradenitis wound left inguinal, perineal, and base of scrotum. History of Wound: Surgery 03/22/20 - 1. Surgical preparation left inguinal area with excision hidradenitis (315 cm2 total wound). 2. Surgical preparation perineal area with excision hidradenitis (315 cm2 total wound). 3. Surgical preparation base left scrotum with incision and drainage and excision hidradenitis (315 cm2 total wound). Wound care - Dakin's dressing changes. Operative culture - Enterococcus faecalis and Streptococcus group F, Anaerobic cocci and Prevotella bivia. Taking Linezolid and Flagyl. Pathology - hidradenitis. Prealbumin from 03/23/20 was 8.2. Encourage nutritional supplementation with protein to help the healing process. HgbA1c from 03/11/20 was 8.8. Today he denies fever. His appetite has not been good. Encouraged protein supplementation. Progress of Wound: Stable. Wound bed is a nice beefy pink color. - Physical Exam Vital Signs Temp Pulse Resp BP 96.6 F L 84 16 161/46 H 04/11/20 08:50 04/11/20 08:50 04/11/20 08:50 04/11/20 08:50 General: Alert, Oriented x3, Cooperative HEENT: Atraumatic Oral: Moist Mucosa Lungs: Normal air movement Cardiovascular: Regular rate Abdomen: Soft Extremities: Capillary Refill Less than 3 Seconds Skin: Ulcer/ Wound - Left groin woun is beefy pink. He has some undermining on the posterior aspect of the wound that has increased slough. He has a firm area on left buttocks just distal to wound. Right groin hidradenitis is stable and not draining at this time. Wound Measurements and Assessment WC - Nurse 1 - General Ulcer Measurement Start: 04/11/20 08:49 Freq: Status: Active Protocol: Activity Type Activity Date Activity User E-Sign Co-Sign Detail Recorded Client Recorded Date Recorded By Document 04/11/20 08:50 DL [id number] 04/11/20 08:58 DL 04/11/20 08:50 Wound Center Nurse 1 [Ulcer Assessment] #1- L GROIN/BUTTOCK POST OP -Combined with other wound No -Current Size (cm) - Length 16.5 -Current Size (cm) - Width 11.1 -Current Size (cm) - Depth 1 -Total Square Cm 183.15 -Photo Taken No -Epithelialization Small 1-33% -Tunneling No -Undermining/Tunneling Yes -Undermining/Tunneling Starts (O' 4 clock) -Undermining/Tunneling Ends (O'clock) 8 -Maximum Distance (cm) 1.8 -Circular Undermining No -Exudate Amt Large -Exudate Type Serosanguineous -Wound Margin Distinct, Outline Attached -Granulation Amt Large (67-100%) -Granulation Quality Red -Slough/Fibrin Yes -Necrosis Amt Small (1-33%) -Necrotic Tissue Type Adherent Slough -Texture (Abimbola-wound Skin Appearance) Assessed, Scarring -Moisture (Abimbola-wound Skin Appearance Assessed ) -Color (Abimbola-wound Skin Appearance) Assessed -Temperature (Abimbola-wound Skin No Abnormality Appearance) (Pt Warm) -Tenderness on Palpation (Abimbola-wound Yes Skin Appearance) -Ulcer Cleansing Wound Cleanser -Foul Odor after Cleansing No -Anesthetic Used 4% Lidocaine Solution WC - Nurse 2 - General Ulcer CM Notes Start: 04/11/20 08:49 Freq: Status: Active Protocol: Activity Type Activity Date Activity User E-Sign Co-Sign Detail Recorded Client Recorded Date Recorded By Document 04/11/20 09:29 [email or web address] [id number] 04/11/20 09:32 LIZETTE 04/11/20 09:29 Wound Center Nurse 2 [Procedure/Treatment] -Time 09:29 -Correct Patient Yes -Correct Side, Site, Position Yes -Correct Procedure Yes -Procedure Performed Yes -Type of Procedure Debridement -Clinical Debridement Subcutaneous -Tissue Removed Subcutaneous -Post Debridement (cm) - Length 18.6 -Post Debridement (cm) - Width 11.5 -Post Debridement (cm) - Depth 1.0 -Total Square (Post) (cm) 213.90 -Area of Debridement (cm) - Length 18.6 -Area of Debridement (cm) - Width 11.5 -Total Square (Area) (cm) 213.90 -Tunneling No -Undermining/Tunneling No -Circular Undermining No -Wound/Ulcer Outcome Not Healed -Ulcer Cleansing Rinsed/ Irrigated with Saline -Foul Odor after Cleansing No -Bioengineered Tissue No -Bleeding Controlled with Pressure -Offloading No -Treatment Response Procedure Tolerated Well -Debridement - Subq, 1st 20sq cm Yes -Debridement, SubQ, ea addt'l 20sq cm 10 or part thereof [See Physician Procedure note for Specifics] Pain Scale: 0-10 Numeric [Pain] -Is Patient Pain Free? Yes - Nurse 3 - General Ulcer D/C NN Start: 04/11/20 08:49 Freq: Status: Active Protocol: Activity Type Activity Date Activity User E-Sign Co-Sign Detail Recorded Client Recorded Date Recorded By Document 04/11/20 09:51 [facility] [id number] 04/11/20 09:53 [facility] 04/11/20 09:51 Wound Care Nurse 3 [Wound Dressing] #1- L GROIN/BUTTOCK POST OP -Ulcer Cleansing Rinsed/ Irrigated with Saline -Foul Odor after Cleansing No -Primary Dressing Applied Other -Other Dressing moist to dry -Primary Dressing Covered/Secured Dry Gauze, with Secured with Tape,Other -Other Covering abd [Post Procedure Tolerated] -Treatment Response Procedure Tolerated Well Pain Scale: 0-10 Numeric [Pain] -Is Patient Pain Free? Yes - Visit Discharge [Visit Discharge Information] -Discharge Condition Stable -Ambulatory Status Ambulatory -Transportation Private Auto -Accompanied by Musculoskeletal: No Tenderness to Palpation of Joints or Extremities Neurological: Cranial nerves II-XII grossly intact Psych/Mental Status: Normal Affect, Appropriate Debridement Note Post-Debridement Measurements/Treatment - Nurse 2 - General Ulcer CM Notes Start: 04/11/20 08:49 Freq: Status: Active Protocol: Activity Type Activity Date Activity User E-Sign Co-Sign Detail Recorded Client Recorded Date Recorded By Document 04/11/20 09:29 [id number] 04/11/20 09:32 LIZETTE 04/11/20 09:29 Wound Center Nurse 2 #1- L GROIN/BUTTOCK POST OP -Time 09:29 -Correct Patient Yes -Correct Side, Site, Position Yes -Correct Procedure Yes -Procedure Performed Yes -Type of Procedure Debridement -Clinical Debridement Subcutaneous -Tissue Removed Subcutaneous -Post Debridement (cm) - Length 18.6 -Post Debridement (cm) - Width 11.5 -Post Debridement (cm) - Depth 1.0 -Total Square (Post) (cm) 213.90 -Area of Debridement (cm) - Length 18.6 -Area of Debridement (cm) - Width 11.5 -Total Square (Area) (cm) 213.90 -Tunneling No -Undermining/Tunneling No -Circular Undermining No -Wound/Ulcer Outcome Not Healed -Ulcer Cleansing Rinsed/ Irrigated with Saline -Foul Odor after Cleansing No -Bioengineered Tissue No -Bleeding Controlled with Pressure -Offloading No -Treatment Response Procedure Tolerated Well -Debridement - Subq, 1st 20sq cm Yes -Debridement, SubQ, ea addt'l 20sq cm 10 or part thereof Pain Scale: 0-10 Numeric Is Patient Pain Free? Yes - Nurse 3 - General Ulcer D/C NN Start: 04/11/20 08:49 Freq: Status: Active Protocol: Activity Type Activity Date Activity User E-Sign Co-Sign Detail Recorded Client Recorded Date Recorded By Document 04/11/20 09:51 [facility] [id number] 04/11/20 09:53 [facility] 04/11/20 09:51 Wound Care Nurse 3 #1- L GROIN/BUTTOCK POST OP -Ulcer Cleansing Rinsed/ Irrigated with Saline -Foul Odor after Cleansing No -Primary Dressing Applied Other -Other Dressing moist to dry -Primary Dressing Covered/Secured with Dry Gauze, Secured with Tape,Other -Other Covering abd Treatment Response Procedure Tolerated Well Pain Scale: 0-10 Numeric Is Patient Pain Free? Yes - Visit Discharge Discharge Condition Stable Ambulatory Status Ambulatory Transportation Private Auto Accompanied by Wound debrided: Groin wound Laterality: Left Type of Debridement: Excisional debridement Anesthesia Used: 5% Lidocaine Gel Depth: Down to and including healthy tissue, in the subcutaneous layer Percentage of wound debrided: 100 Instrument Used: 7mm curette Tissue Removed: Subcutaneous tissue and slough. Increased biofilm on distal portion Severity: Fat Layer Exposed Amount of bleeding with debridement: Mild Bleeding Controlled with: Pressure, Compression and gauze Patient tolerated procedure well Assessment/Plan Assessment: 1. Extensive hidradenitis bilateral inguinal and perineal areas with extension to base of scrotum. 2. Extensive hidradenitis bilateral perianal areas. 3. Smoker. 4. On fdc use of Remicade. 5. Diabetes mellitus. 6. s/p surgical preparation left inguinal area with excision hidradenitis (315 cm2 total wound) and surgical preparation perineal area with excision hidradenitis (315 cm2 total wound) and surgical preparation base left scrotum with incision and drainage and excision hidradenitis (315 cm2 total wound). Plan: Continue Dakin's dressing changes daily. Make sure to place gauze on the distal portion of wound where there is some minor undermining. Operative culture shows Enterococcus faecalis and Streptococcus group F, Anaerobic cocci and Prevotella bivia. He stopped the Clindamycin and is now taking Linezolid and Flagyl for the anaerobes. The Flagyl is upsetting his stomach. Prealbumin from 03/23/20 was 8.2. Encourage nutritional supplementation with protein to help the healing process. Discussed this at length with both the patient and his . He has been drinking Boost. HgbA1c from 03/11/20 was 8.8. If a skin graft is needed in the future, his HgbA1c needs to be less than 8. Renewed his iron and Percocet (28 tabs). Followup one week. 111xxx-113xx: [id number] [facility] Visit
[2020-04-18 08:39] VITALS: BP 162/45; PULSE 82; RESP 18; TEMP 36.3; BMI 24.5
--- NOTE | 2020-04-18 09:56 | PN.PCM_ITS ---
(1) Non-healing open wound of left groin Status: Acute Code(s): S31.104A - Unspecified open wound of abdominal wall, left lower quadrant without penetration into peritoneal cavity, initial encounter (2) Hydradenitis Status: Chronic Code(s): L73.2 - Hidradenitis suppurativa Comment: bilateral inguinal and left base of scrotum (3) Acute postoperative anemia due to expected blood loss Status: Acute Code(s): D62 - Acute posthemorrhagic anemia (4) Diabetes mellitus type 2, uncontrolled, with complications Status: Chronic Code(s): E11.8 - Type 2 diabetes mellitus with unspecified complications; E11.65 - Type 2 diabetes mellitus with hyperglycemia (5) Tobacco dependence syndrome Status: Chronic Code(s): F17.200 - Nicotine dependence, unspecified, uncomplicated Type of Wound Date of Service: 04/18/20 Chief Complaint: Open surgical hidradenitis wound left inguinal, perineal, and base of scrotum. History of Wound: Surgery 03/22/20 - 1. Surgical preparation left inguinal area with excision hidradenitis (315 cm2 total wound). 2. Surgical preparation perineal area with excision hidradenitis (315 cm2 total wound). 3. Surgical preparation base left scrotum with incision and drainage and excision hidradenitis (315 cm2 total wound). Wound care - Dakin's dressing changes daily, covered with gauze or ABD. Operative culture - Enterococcus faecalis and Streptococcus group F, Anaerobic cocci and Prevotella bivia. Taking Linezolid and Flagyl. Pathology - hidradenitis. Prealbumin from 03/23/20 was 8.2. Encourage nutritional supplementation with protein to help the healing process. HgbA1c from 03/11/20 was 8.8. Today he denies fever. His appetite has not been good. Encouraged protein supplementation. Progress of Wound: Stable. Wound bed is a nice beefy pink color. - Physical Exam Vital Signs Temp Pulse Resp BP 97.4 F L 82 18 162/45 H 04/18/20 08:39 04/18/20 08:39 04/18/20 08:39 04/18/20 08:39 General: Alert, Oriented x3, Cooperative HEENT: Atraumatic Oral: Moist Mucosa Lungs: Normal air movement Cardiovascular: Regular rate Abdomen: Bowel Sounds Present Extremities: Capillary Refill Less than 3 Seconds Skin: Ulcer/ Wound - Left groin wound is beefy pink. There is undermining at 6 o'clock. Left groin is firm with several small areas that are draining a white drainage. Wound Measurements and Assessment WC - Nurse 1 - General Ulcer Measurement Start: 04/11/20 08:49 Freq: Status: Active Protocol: Activity Type Activity Date Activity User E-Sign Co-Sign Detail Recorded Client Recorded Date Recorded By Document 04/18/20 08:39 DL [id number] 04/18/20 08:51 DL 04/18/20 08:39 Wound Center Nurse 1 [Ulcer Assessment] #1- L GROIN/BUTTOCK POST OP -Current Size (cm) - Length 16.2 -Current Size (cm) - Width 10 -Current Size (cm) - Depth 0.7 -Total Square Cm 162.0 -Photo Taken No -Exudate Amt Medium -Exudate Type Serosanguineous -Wound Margin Thickened & Rolled Under -Granulation Amt Large (67-100%) -Granulation Quality Red -Necrosis Amt Small (1-33%) -Necrotic Tissue Type Adherent Slough -Structure Exposed N/A -Texture (Abimbola-wound Skin Appearance) Scarring -Moisture (Abimbola-wound Skin Appearance No Abnormality ) -Color (Abimbola-wound Skin Appearance) No Abnormality -Temperature (Abimbola-wound Skin No Abnormality Appearance) (Pt Warm) -Tenderness on Palpation (Abimbola-wound No Skin Appearance) -Ulcer Cleansing Wound Cleanser -Foul Odor after Cleansing No -Anesthetic Used 4% Lidocaine Solution WC - Nurse 2 - General Ulcer CM Notes Start: 04/11/20 08:49 Freq: Status: Active Protocol: Activity Type Activity Date Activity User E-Sign Co-Sign Detail Recorded Client Recorded Date Recorded By Document 04/18/20 09:09 LIZETTE [id number] 04/18/20 09:11 LIZETTE 04/18/20 09:09 Wound Center Nurse 2 [Procedure/Treatment] -Time 09:10 -Correct Patient Yes -Correct Side, Site, Position Yes -Correct Procedure Yes -Procedure Performed Yes -Type of Procedure Debridement -Clinical Debridement Subcutaneous -Tissue Removed Subcutaneous -Post Debridement (cm) - Length 16.5 -Post Debridement (cm) - Width 11 -Post Debridement (cm) - Depth 1 -Total Square (Post) (cm) 181.5 -Area of Debridement (cm) - Length 16.5 -Area of Debridement (cm) - Width 11 -Total Square (Area) (cm) 181.5 -Tunneling Yes -Tunneling Position (O'clock) 6 -Tunneling Distance (cm) 3.2 -Undermining/Tunneling No -Circular Undermining No -Wound/Ulcer Outcome Not Healed -Ulcer Cleansing Rinsed/ Irrigated with Saline -Foul Odor after Cleansing No -Bioengineered Tissue No -Bleeding Controlled with Pressure -Offloading No -Treatment Response Procedure Tolerated Well -Debridement - Subq, 1st 20sq cm Yes -Debridement, SubQ, ea addt'l 20sq cm 9 or part thereof [See Physician Procedure note for Specifics] Pain Scale: 0-10 Numeric [Pain] -Is Patient Pain Free? Yes Musculoskeletal: No Tenderness to Palpation of Joints or Extremities Neurological: Cranial nerves II-XII grossly intact Psych/Mental Status: Normal Affect, Appropriate Debridement Note Post-Debridement Measurements/Treatment WC - Nurse 2 - General Ulcer CM Notes Start: 04/11/20 08:49 Freq: Status: Active Protocol: Activity Type Activity Date Activity User E-Sign Co-Sign Detail Recorded Client Recorded Date Recorded By Document 04/11/20 09:29 [id number] 04/11/20 09:32 Document 04/18/20 09:09 [id number] 04/18/20 09:11 04/11/20 04/18/20 09:29 09:09 Wound Center Nurse 2 #1- L GROIN/BUTTOCK POST OP -Time 09:29 09:10 -Correct Patient Yes Yes -Correct Side, Site, Position Yes Yes -Correct Procedure Yes Yes -Procedure Performed Yes Yes -Type of Procedure Debridement Debridement -Clinical Debridement Subcutaneous Subcutaneous -Tissue Removed Subcutaneous Subcutaneous -Post Debridement (cm) - Length 18.6 16.5 -Post Debridement (cm) - Width 11.5 11 -Post Debridement (cm) - Depth 1.0 1 -Total Square (Post) (cm) 213.90 181.5 -Area of Debridement (cm) - Length 18.6 16.5 -Area of Debridement (cm) - Width 11.5 11 -Total Square (Area) (cm) 213.90 181.5 -Tunneling No Yes -Tunneling Position (O'clock) 6 -Tunneling Distance (cm) 3.2 -Undermining/Tunneling No No -Circular Undermining No No -Wound/Ulcer Outcome Not Healed Not Healed -Ulcer Cleansing Rinsed/ Rinsed/ Irrigated with Irrigated with Saline Saline -Foul Odor after Cleansing No No -Bioengineered Tissue No No -Bleeding Controlled with Pressure Pressure -Offloading No No -Treatment Response Procedure Procedure Tolerated Well Tolerated Well -Debridement - Subq, 1st 20sq cm Yes Yes -Debridement, SubQ, ea addt'l 20sq cm 10 9 or part thereof Pain Scale: 0-10 Numeric Is Patient Pain Free? Yes Yes - Nurse 3 - General Ulcer D/C NN Start: 04/11/20 08:49 Freq: Status: Active Protocol: Activity Type Activity Date Activity User E-Sign Co-Sign Detail Recorded Client Recorded Date Recorded By Document 04/11/20 09:51 [facility] [id number] 04/11/20 09:53 [facility] 04/11/20 09:51 Wound Care Nurse 3 #1- L GROIN/BUTTOCK POST OP -Ulcer Cleansing Rinsed/ Irrigated with Saline -Foul Odor after Cleansing No -Primary Dressing Applied Other -Other Dressing moist to dry -Primary Dressing Covered/Secured with Dry Gauze, Secured with Tape,Other -Other Covering abd Treatment Response Procedure Tolerated Well Pain Scale: 0-10 Numeric Is Patient Pain Free? Yes - Visit Discharge Discharge Condition Stable Ambulatory Status Ambulatory Transportation Private Auto Accompanied by Wound debrided: Groin wound Laterality: Left Type of Debridement: Excisional debridement Anesthesia Used: 5% Lidocaine Gel Depth: Down to and including healthy tissue, in the subcutaneous layer Percentage of wound debrided: 100 Instrument Used: 7mm curette Tissue Removed: Subcutaneous tissue and slough Severity: Fat Layer Exposed Amount of bleeding with debridement: Mild Bleeding Controlled with: Pressure, Compression and gauze Patient tolerated procedure well Assessment/Plan Active Problems (Last Updated 03/24/20 @ 21:[address] Cortez Smith MD) Non-healing open wound of left groin (Acute) Acute postoperative anemia due to expected blood loss (Acute) Tobacco dependence syndrome (Chronic) Hydradenitis (Chronic) bilateral inguinal and left base of scrotum Diabetes mellitus type 2, uncontrolled, with complications (Chronic) Assessment: 1. Extensive hidradenitis bilateral inguinal and perineal areas with extension to base of scrotum. 2. Extensive hidradenitis bilateral perianal areas. 3. Smoker. 4. On ch[facility] use of Remicade. 5. Diabetes mellitus. 6. s/p surgical preparation left inguinal area with excision hidradenitis (315 cm2 total wound) and surgical preparation perineal area with excision hidradenitis (315 cm2 total wound) and surgical preparation base left scrotum with incision and drainage and excision hidradenitis (315 cm2 total wound). Plan: Continue Dakin's dressing changes daily to the left groin. At the undermining at 6 o'clock, will place silver in that area due to the dakin's ,moistened gauze coms out when he sits. Operative culture shows Enterococcus faecalis and Streptococcus group F, Anaerobic cocci and Prevotella bivia. He stopped the Clindamycin and is now taking Linezolid and Flagyl for the anaerobes. The Flagyl is upsetting his stomach. Prealbumin from 03/23/20 was 8.2. Encourage nutritional supplementation with protein to help the healing process. Discussed this at length with both the patient and his . He has been drinking Boost. HgbA1c from 03/11/20 was 8.8. If a skin graft is needed in the future, his HgbA1c needs to be less than 8. Followup one week. [id number]: [id number] Global Visit
[2020-04-25 08:43] VITALS: BP 192/59; PULSE 94; RESP 18; TEMP 36.6; BMI 24.5
--- NOTE | 2020-04-25 10:36 | PCM.WC.PN ---
(1) Ulcer of left groin with fat layer exposed Status: Chronic Code(s): L98.492 - Non-pressure chronic ulcer of skin of other sites with fat layer exposed (2) Hydradenitis Status: Chronic Code(s): L73.2 - Hidradenitis suppurativa Comment: bilateral inguinal and left base of scrotum (3) Acute postoperative anemia due to expected blood loss Status: Acute Code(s): D62 - Acute posthemorrhagic anemia (4) Diabetes mellitus type 2, uncontrolled, with complications Status: Chronic Code(s): E11.8 - Type 2 diabetes mellitus with unspecified complications; E11.65 - Type 2 diabetes mellitus with hyperglycemia (5) Tobacco dependence syndrome Status: Chronic Code(s): F17.200 - Nicotine dependence, unspecified, uncomplicated Type of Wound Date of Service: 04/25/20 Chief Complaint: Open surgical hidradenitis wound left inguinal, perineal, and base of scrotum. History of Wound: Surgery 03/22/20 - 1. Surgical preparation left inguinal area with excision hidradenitis (315 cm2 total wound). 2. Surgical preparation perineal area with excision hidradenitis (315 cm2 total wound). 3. Surgical preparation base left scrotum with incision and drainage and excision hidradenitis (315 cm2 total wound). Wound care - Dakin's dressing changes daily, covered with gauze or ABD. Operative culture - Enterococcus faecalis and Streptococcus group F, Anaerobic cocci and Prevotella bivia. Taking Linezolid and Flagyl. Pathology - hidradenitis. Prealbumin from 03/23/20 was 8.2. Encourage nutritional supplementation with protein to help the healing process. HgbA1c from 03/11/20 was 8.8. Today he is complaining about left leg and foot swelling with some calf tenderness. Ultrasound of his his left lower extremity ordered and done 04/15/2020. It showed there was no evidence of left lower extremity deep vein thrombosis. Valves are competent and compressible. He will wear Tubigrip for compression. Instructed him to keep legs elevated when sitting. Instructed him to avoid standing for long periods of time. Today he denies fever. His appetite has not been good. Encouraged protein supplementation. Progress of Wound: Improved. Wound bed is a nice beefy pink color. - Physical Exam Vital Signs Temp Pulse Resp BP 97.9 F 94 18 192/59 H 04/25/20 08:43 04/25/20 08:43 04/25/20 08:43 04/25/20 08:43 General: Alert, Oriented x3, Cooperative HEENT: Atraumatic Oral: Moist Mucosa Lungs: Normal air movement Cardiovascular: Regular rate Extremities: Capillary Refill Less than 3 Seconds, Edema - Left leg and foot with edema., Tenderness - He states he is having some left calf tenderness. Positive Homans' sign. Skin: Ulcer/ Wound - Left groin ulcer is beefy pink. He does have some tunneling at the 6 o'clock position. Wound Measurements and Assessment WC - Nurse 1 - General Ulcer Measurement Start: 04/11/20 08:49 Freq: Status: Active Protocol: Activity Type Activity Date Activity User E-Sign Co-Sign Detail Recorded Client Recorded Date Recorded By Document 04/25/20 08:43 [facility] [id number] 04/25/20 08:51 BM 04/25/20 08:43 Wound Center Nurse 1 [Ulcer Assessment] #1- L GROIN/BUTTOCK POST OP -Combined with other wound No -Current Size (cm) - Length 14.8 -Current Size (cm) - Width 10.4 -Current Size (cm) - Depth 1.1 -Total Square Cm 153.92 -Photo Taken No -Epithelialization Small 1-33% -Tunneling No -Undermining/Tunneling Yes -Undermining/Tunneling Starts (O' 5 clock) -Undermining/Tunneling Ends (O'clock) 7 -Maximum Distance (cm) 1.5 -Circular Undermining No -Exudate Amt Large -Exudate Type Serosanguineous -Wound Margin Distinct, Outline Attached -Granulation Amt Large (67-100%) -Granulation Quality Red -Slough/Fibrin Yes -Necrosis Amt Small (1-33%) -Necrotic Tissue Type Adherent Slough -Texture (Abimbola-wound Skin Appearance) Not Assessed, Scarring -Moisture (Abimbola-wound Skin Appearance Assessed ) -Color (Abimbola-wound Skin Appearance) Assessed -Temperature (Abimbola-wound Skin No Abnormality Appearance) (Pt Warm) -Tenderness on Palpation (Abimbola-wound No Skin Appearance) -Ulcer Cleansing soapy water -Foul Odor after Cleansing No -Anesthetic Used 4% Lidocaine Solution WC - Nurse 2 - General Ulcer CM Notes Start: 04/11/20 08:49 Freq: Status: Active Protocol: Activity Type Activity Date Activity User E-Sign Co-Sign Detail Recorded Client Recorded Date Recorded By Document 04/25/20 09:23 [id number] 04/25/20 09:28 LIZETTE 04/25/20 09:23 Wound Center Nurse 2 [Procedure/Treatment] -Time 09:25 -Correct Patient Yes -Correct Side, Site, Position Yes -Correct Procedure Yes -Procedure Performed Yes -Type of Procedure Debridement -Clinical Debridement Subcutaneous -Tissue Removed Subcutaneous -Post Debridement (cm) - Length 16 -Post Debridement (cm) - Width 10.5 -Post Debridement (cm) - Depth 0.5 -Total Square (Post) (cm) 168.0 -Area of Debridement (cm) - Length 16 -Area of Debridement (cm) - Width 10.5 -Total Square (Area) (cm) 168.0 -Tunneling Yes -Tunneling Position (O'clock) 6 -Tunneling Distance (cm) 3 -Undermining/Tunneling No -Circular Undermining No -Wound/Ulcer Outcome Not Healed -Ulcer Cleansing Rinsed/ Irrigated with Saline -Foul Odor after Cleansing No -Bioengineered Tissue No -Bleeding Controlled with Pressure -Offloading No -Treatment Response Procedure Tolerated Well -Debridement - Subq, 1st 20sq cm Yes -Debridement, SubQ, ea addt'l 20sq cm 8 or part thereof [See Physician Procedure note for Specifics] Pain Scale: 0-10 Numeric [Pain] -Is Patient Pain Free? Yes WC - Nurse 3 - General Ulcer D/C NN Start: 04/11/20 08:49 Freq: Status: Active Protocol: Activity Type Activity Date Activity User E-Sign Co-Sign Detail Recorded Client Recorded Date Recorded By Document 04/25/20 09:44 [facility] [id number] 04/25/20 09:45 [facility] 04/25/20 09:44 Wound Care Nurse 3 [Wound Dressing] #1- L GROIN/BUTTOCK POST OP -Ulcer Cleansing Rinsed/ Irrigated with Saline -Foul Odor after Cleansing No -Primary Dressing Applied Other -Other Dressing moist to dry per r latanya rn -Primary Dressing Covered/Secured Secured with with Tape,Other -Other Covering abd [Post Procedure Tolerated] -Treatment Response Procedure Tolerated Well Pain Scale: 0-10 Numeric [Pain] -Is Patient Pain Free? Yes WC - Visit Discharge [Visit Discharge Information] -Discharge Condition Stable -Ambulatory Status Ambulatory -Transportation Private Auto -Accompanied by [Facility Notification] -Facility Type Home Health Musculoskeletal: Tenderness Neurological: Cranial nerves II-XII grossly intact Psych/Mental Status: Normal Affect, Appropriate Debridement Note Post-Debridement Measurements/Treatment - Nurse 2 - General Ulcer CM Notes Start: 04/11/20 08:49 Freq: Status: Active Protocol: Activity Type Activity Date Activity User E-Sign Co-Sign Detail Recorded Client Recorded Date Recorded By Document 04/11/20 09:29 [id number] 04/11/20 09:32 Document 04/18/20 09:09 [id number] 04/18/20 09:11 Document 04/25/20 09:23 [id number] 04/25/20 09:28 04/11/20 04/18/20 04/25/20 09:29 09:09 09:23 Wound Center Nurse 2 #1- L GROIN/BUTTOCK POST OP -Time 09:29 09:10 09:25 -Correct Patient Yes Yes Yes -Correct Side, Site, Position Yes Yes Yes -Correct Procedure Yes Yes Yes -Procedure Performed Yes Yes Yes -Type of Procedure Debridement Debridement Debridement -Clinical Debridement Subcutaneous Subcutaneous Subcutaneous -Tissue Removed Subcutaneous Subcutaneous Subcutaneous -Post Debridement (cm) - Length 18.6 16.5 16 -Post Debridement (cm) - Width 11.5 11 10.5 -Post Debridement (cm) - Depth 1.0 1 0.5 -Total Square (Post) (cm) 213.90 181.5 168.0 -Area of Debridement (cm) - Length 18.6 16.5 16 -Area of Debridement (cm) - Width 11.5 11 10.5 -Total Square (Area) (cm) 213.90 181.5 168.0 -Tunneling No Yes Yes -Tunneling Position (O'clock) 6 6 -Tunneling Distance (cm) 3.2 3 -Undermining/Tunneling No No No -Circular Undermining No No No -Wound/Ulcer Outcome Not Healed Not Healed Not Healed -Ulcer Cleansing Rinsed/ Rinsed/ Rinsed/ Irrigated with Irrigated with Irrigated with Saline Saline Saline -Foul Odor after Cleansing No No No -Bioengineered Tissue No No No -Bleeding Controlled with Pressure Pressure Pressure -Offloading No No No -Treatment Response Procedure Procedure Procedure Tolerated Well Tolerated Well Tolerated Well -Debridement - Subq, 1st 20sq cm Yes Yes Yes -Debridement, SubQ, ea addt'l 20sq cm 10 9 8 or part thereof Pain Scale: 0-10 Numeric Is Patient Pain Free? Yes Yes Yes - Nurse 3 - General Ulcer D/C NN Start: 04/11/20 08:49 Freq: Status: Active Protocol: Activity Type Activity Date Activity User E-Sign Co-Sign Detail Recorded Client Recorded Date Recorded By Document 04/11/20 09:51 [facility] [id number] 04/11/20 09:53 [facility] Document 04/25/20 09:44 [facility] [id number] 04/25/20 09:45 [facility] 04/11/20 04/25/20 09:51 09:44 Wound Care Nurse 3 #1- L GROIN/BUTTOCK POST OP -Ulcer Cleansing Rinsed/ Rinsed/ Irrigated with Irrigated with Saline Saline -Foul Odor after Cleansing No No -Primary Dressing Applied Other Other -Other Dressing moist to dry moist to dry per serena pelaez rn -Primary Dressing Covered/Secured with Dry Gauze, Secured with Secured with Tape,Other Tape,Other -Other Covering abd abd Treatment Response Procedure Procedure Tolerated Well Tolerated Well Pain Scale: 0-10 Numeric Is Patient Pain Free? Yes Yes - Visit Discharge Discharge Condition Stable Stable Ambulatory Status Ambulatory Ambulatory Transportation Private Auto Private Auto Accompanied by Facility Type Home Health Wound debrided: Groin ulcer Laterality: Left Type of Debridement: Excisional debridement Anesthesia Used: 5% Lidocaine Gel Depth: Down to and including healthy tissue, in the subcutaneous layer Percentage of wound debrided: 100 Instrument Used: 7mm curette Tissue Removed: Subcutaneous tissue and slough Severity: Fat Layer Exposed Amount of bleeding with debridement: Mild Bleeding Controlled with: Pressure, Compression and gauze Patient tolerated procedure well Assessment/Plan Active Problems (Last Updated 03/24/20 @ 21:[address] Cortez Smith MD) Acute postoperative anemia due to expected blood loss (Acute) Tobacco dependence syndrome (Chronic) Hydradenitis (Chronic) bilateral inguinal and left base of scrotum Diabetes mellitus type 2, uncontrolled, with complications (Chronic) Assessment: 1. Extensive hidradenitis bilateral inguinal and perineal areas with extension to base of scrotum. 2. Extensive hidradenitis bilateral perianal areas. 3. Smoker. 4. On fdc use of Remicade. 5. Diabetes mellitus. 6. s/p surgical preparation left inguinal area with excision hidradenitis (315 cm2 total wound) and surgical preparation perineal area with excision hidradenitis (315 cm2 total wound) and surgical preparation base left scrotum with incision and drainage and excision hidradenitis (315 cm2 total wound). Plan: Continue Dakin's dressing changes daily to the left groin ulcer. At the tunneling at 6 o'clock, will place silver in that area. Today he is complaining about left leg and foot swelling with some calf tenderness. Ultrasound of his his left lower extremity ordered and done today, 04/15/2020. It showed there was no evidence of left lower extremity deep vein thrombosis. Valves are competent and compressible. He will wear Tubigrip for compression. Instructed him to keep legs elevated when sitting. Instructed him to avoid standing for long periods of time. Operative culture shows Enterococcus faecalis and Streptococcus group F, Anaerobic cocci and Prevotella bivia. He stopped the Clindamycin and is now taking Linezolid and Flagyl for the anaerobes. The Flagyl is completed. Prealbumin from 03/23/20 was 8.2. Encourage nutritional supplementation with protein to help the healing process. Discussed this at length with both the patient and his . He has been drinking Boost. HgbA1c from 03/11/20 was 8.8. If a skin graft is needed in the future, his HgbA1c needs to be less than 8. Followup one week. 111xxx-113xx: [id number] Global Visit
[2020-05-02 08:41] VITALS: BP 187/65; PULSE 98; RESP 22; TEMP 37; BMI 24.5
--- NOTE | 2020-05-02 11:54 | PN.PCM_ITS ---
(1) Ulcer of left groin with fat layer exposed Status: Chronic Code(s): L98.492 - Non-pressure chronic ulcer of skin of other sites with fat layer exposed (2) Hydradenitis Status: Chronic Code(s): L73.2 - Hidradenitis suppurativa Comment: bilateral inguinal and left base of scrotum (3) Acute postoperative anemia due to expected blood loss Status: Acute Code(s): D62 - Acute posthemorrhagic anemia (4) Diabetes mellitus type 2, uncontrolled, with complications Status: Chronic Code(s): E11.8 - Type 2 diabetes mellitus with unspecified complications; E11.65 - Type 2 diabetes mellitus with hyperglycemia (5) Tobacco dependence syndrome Status: Chronic Code(s): F17.200 - Nicotine dependence, unspecified, uncomplicated Type of Wound Date of Service: 05/02/20 Chief Complaint: Open surgical hidradenitis wound left inguinal, perineal, and base of scrotum. History of Wound: Surgery 03/22/20 - 1. Surgical preparation left inguinal area with excision hidradenitis (315 cm2 total wound). 2. Surgical preparation perineal area with excision hidradenitis (315 cm2 total wound). 3. Surgical preparation base left scrotum with incision and drainage and excision hidradenitis (315 cm2 total wound). Wound care - Dakin's dressing changes daily, silver packed into undermining at 6:00, covered with gauze or ABD. Operative culture - Enterococcus faecalis and Streptococcus group F, Anaerobic cocci and Prevotella bivia. Taking Linezolid and Flagyl. Pathology - hidradenitis. Prealbumin from 03/23/20 was 8.2. Encourage nutritional supplementation with protein to help the healing process. HgbA1c from 03/11/20 was 8.8. Today he is complaining about left leg and foot swelling with some calf tenderness. Ultrasound of his his left lower extremity ordered and done 04/15/2020. It showed there was no evidence of left lower extremity deep vein thrombosis. Valves are competent and compressible. He will wear Tubigrip for compression. Instructed him to keep legs elevated when sitting. Instructed him to avoid standing for long periods of time. Today he denies fever. His appetite has not been good. Encouraged protein supplementation. Progress of Wound: Improved. Wound bed is a nice beefy pink color. - Physical Exam Vital Signs Temp Pulse Resp BP 98.6 F 98 22 H 187/65 H 05/02/20 08:41 05/02/20 08:41 05/02/20 08:41 05/02/20 08:41 General: Alert, Oriented x3, Cooperative HEENT: Atraumatic Oral: Moist Mucosa Lungs: Normal air movement Cardiovascular: Regular rate Extremities: Capillary Refill Less than 3 Seconds, Edema Skin: Ulcer/ Wound - Left groin ulcer is beefy. Undermining at 6:00. Wound Measurements and Assessment WC - Nurse 1 - General Ulcer Measurement Start: 04/11/20 08:49 Freq: Status: Active Protocol: Activity Type Activity Date Activity User E-Sign Co-Sign Detail Recorded Client Recorded Date Recorded By Document 05/02/20 08:41 DL [id number] 05/02/20 08:47 DL 05/02/20 08:41 Wound Center Nurse 1 [Ulcer Assessment] #1- L GROIN/BUTTOCK POST OP -Current Size (cm) - Length 15 -Current Size (cm) - Width 9 -Current Size (cm) - Depth 1.4 -Total Square Cm 135 -Photo Taken No -Exudate Amt Medium -Exudate Type Serosanguineous -Wound Margin Thickened & Rolled Under -Granulation Amt Medium (34-66%) -Granulation Quality Red -Necrosis Amt Small (1-33%) -Necrotic Tissue Type Adherent Slough -Structure Exposed N/A -Texture ([place]imbola-wound Skin Appearance) Scarring -Color ([place]ola-wound Skin Appearance) No Abnormality -Temperature ([place]ola-wound Skin No Abnormality Appearance) (Pt Warm) -Tenderness on Palpation ([place]ola-wound No Skin Appearance) -Ulcer Cleansing Wound Cleanser -Foul Odor after Cleansing No -Anesthetic Used 4% Lidocaine Solution WC - Nurse 2 - General Ulcer CM Notes Start: 04/11/20 08:49 Freq: Status: Active Protocol: Activity Type Activity Date Activity User E-Sign Co-Sign Detail Recorded Client Recorded Date Recorded By Document 05/02/20 09:08 LIZETTE [id number] 05/02/20 09:12 LIZETTE 05/02/20 09:08 Wound Center Nurse 2 [Procedure/Treatment] -Time 09:08 -Correct Patient Yes -Correct Side, Site, Position Yes -Correct Procedure Yes -Procedure Performed Yes -Type of Procedure Debridement -Clinical Debridement Subcutaneous -Tissue Removed Subcutaneous -Post Debridement (cm) - Length 17.5 -Post Debridement (cm) - Width 9 -Post Debridement (cm) - Depth 0.5 -Total Square (Post) (cm) 157.5 -Area of Debridement (cm) - Length 17.5 -Area of Debridement (cm) - Width 9 -Total Square (Area) (cm) 157.5 -Tunneling Yes -Tunneling Position (O'clock) 6 -Tunneling Distance (cm) 3.3 -Undermining/Tunneling No -Circular Undermining No -Wound/Ulcer Outcome Not Healed -Ulcer Cleansing Rinsed/ Irrigated with Saline -Foul Odor after Cleansing No -Bioengineered Tissue No -Bleeding Controlled with Pressure -Offloading No -Treatment Response Procedure Tolerated Well -Debridement - Subq, 1st 20sq cm Yes -Debridement, SubQ, ea addt'l 20sq cm 7 or part thereof [See Physician Procedure note for Specifics] Pain Scale: 0-10 Numeric [Pain] -Is Patient Pain Free? Yes - Nurse 3 - General Ulcer D/C NN Start: 04/11/20 08:49 Freq: Status: Active Protocol: Activity Type Activity Date Activity User E-Sign Co-Sign Detail Recorded Client Recorded Date Recorded By Document 05/02/20 09:28 DL [id number] 05/02/20 09:29 DL 05/02/20 09:28 Wound Care Nurse 3 [Wound Dressing] #1- L GROIN/BUTTOCK POST OP -Ulcer Cleansing Rinsed/ Irrigated with Saline -Foul Odor after Cleansing No -Primary Dressing Applied Aquacel AG 2x2 -Other Dressing moist gauze -Primary Dressing Covered/Secured Dry Gauze, with Secured with Tape -Aquacel AG 2x2 1 [Post Procedure Tolerated] -Treatment Response Procedure Tolerated Well Pain Scale: 0-10 Numeric [Pain] -Is Patient Pain Free? Yes - Visit Discharge [Visit Discharge Information] -Discharge Condition Stable -Ambulatory Status Ambulatory -Transportation Private Auto Musculoskeletal: No Tenderness to Palpation of Joints or Extremities Neurological: Cranial nerves II-XII grossly intact Psych/Mental Status: Normal Affect, Appropriate Debridement Note Post-Debridement Measurements/Treatment BEKA - Nurse 2 - General Ulcer CM Notes Start: 04/11/20 08:49 Freq: Status: Active Protocol: Activity Type Activity Date Activity User E-Sign Co-Sign Detail Recorded Client Recorded Date Recorded By Document 04/11/20 09:29 [id number] 04/11/20 09:32 Document 04/18/20 09:09 JF [id number] 04/18/20 09:11 JF Document 04/25/20 09:23 JF [id number] 04/25/20 09:28 JF Document 05/02/20 09:08 [id number] 05/02/20 09:12 04/11/20 04/18/20 04/25/20 09:29 09:09 09:23 Wound Center Nurse 2 #1- L GROIN/BUTTOCK POST OP -Time 09: 09:10 09:25 -Correct Patient Yes Yes Yes -Correct Side, Site, Position Yes Yes Yes -Correct Procedure Yes Yes Yes -Procedure Performed Yes Yes Yes -Type of Procedure Debridement Debridement Debridement -Clinical Debridement Subcutaneous Subcutaneous Subcutaneous -Tissue Removed Subcutaneous Subcutaneous Subcutaneous -Post Debridement (cm) - Length 18.6 16.5 16 -Post Debridement (cm) - Width 11.5 11 10.5 -Post Debridement (cm) - Depth 1.0 1 0.5 -Total Square (Post) (cm) 213.90 181.5 168.0 -Area of Debridement (cm) - Length 18.6 16.5 16 -Area of Debridement (cm) - Width 11.5 11 10.5 -Total Square (Area) (cm) 213.90 181.5 168.0 -Tunneling No Yes Yes -Tunneling Position (O'clock) 6 6 -Tunneling Distance (cm) 3.2 3 -Undermining/Tunneling No No No -Circular Undermining No No No -Wound/Ulcer Outcome Not Healed Not Healed Not Healed -Ulcer Cleansing Rinsed/ Rinsed/ Rinsed/ Irrigated with Irrigated with Irrigated with Saline Saline Saline -Foul Odor after Cleansing No No No -Bioengineered Tissue No No No -Bleeding Controlled with Pressure Pressure Pressure -Offloading No No No -Treatment Response Procedure Procedure Procedure Tolerated Well Tolerated Well Tolerated Well -Debridement - Subq, 1st 20sq cm Yes Yes Yes -Debridement, SubQ, ea addt'l 20sq cm 10 9 8 or part thereof Pain Scale: 0-10 Numeric Is Patient Pain Free? Yes Yes Yes 05/02/20 09:08 Wound Center Nurse 2 #1- L GROIN/BUTTOCK POST OP -Time 09:08 -Correct Patient Yes -Correct Side, Site, Position Yes -Correct Procedure Yes -Procedure Performed Yes -Type of Procedure Debridement -Clinical Debridement Subcutaneous -Tissue Removed Subcutaneous -Post Debridement (cm) - Length 17.5 -Post Debridement (cm) - Width 9 -Post Debridement (cm) - Depth 0.5 -Total Square (Post) (cm) 157.5 -Area of Debridement (cm) - Length 17.5 -Area of Debridement (cm) - Width 9 -Total Square (Area) (cm) 157.5 -Tunneling Yes -Tunneling Position (O'clock) 6 -Tunneling Distance (cm) 3.3 -Undermining/Tunneling No -Circular Undermining No -Wound/Ulcer Outcome Not Healed -Ulcer Cleansing Rinsed/ Irrigated with Saline -Foul Odor after Cleansing No -Bioengineered Tissue No -Bleeding Controlled with Pressure -Offloading No -Treatment Response Procedure Tolerated Well -Debridement - Subq, 1st 20sq cm Yes -Debridement, SubQ, ea addt'l 20sq cm 7 or part thereof Pain Scale: 0-10 Numeric Is Patient Pain Free? Yes WC - Nurse 3 - General Ulcer D/C NN Start: 04/11/20 08:49 Freq: Status: Active Protocol: Activity Type Activity Date Activity User E-Sign Co-Sign Detail Recorded Client Recorded Date Recorded By Document 04/11/20 09:51 [facility] [id number] 04/11/20 09:53 BM Document 04/25/20 09:44 BM [id number] 04/25/20 09:45 BM Document 05/02/20 09:28 DL [id number] 05/02/20 09:29 DL 04/11/20 04/25/20 05/02/20 09:51 09:44 09:28 Wound Care Nurse 3 #1- L GROIN/BUTTOCK POST OP -Ulcer Cleansing Rinsed/ Rinsed/ Rinsed/ Irrigated with Irrigated with Irrigated with Saline Saline Saline -Foul Odor after Cleansing No No No -Primary Dressing Applied Other Other Aquacel AG 2x2 -Other Dressing moist to dry moist to dry moist gauze per serena pelaez rn -Primary Dressing Covered/Secured with Dry Gauze, Secured with Dry Gauze, Secured with Tape,Other Secured with Tape,Other Tape -Other Covering abd abd -Aquacel AG 2x2 1 Treatment Response Procedure Procedure Procedure Tolerated Well Tolerated Well Tolerated Well Pain Scale: 0-10 Numeric Is Patient Pain Free? Yes Yes Yes WC - Visit Discharge Discharge Condition Stable Stable Stable Ambulatory Status Ambulatory Ambulatory Ambulatory Transportation Private Auto Private Auto Private Auto Accompanied by Facility Type Home Health Wound debrided: groin ulcer Laterality: Left Type of Debridement: Excisional debridement Anesthesia Used: 5% Lidocaine Gel Depth: Down to and including healthy tissue, in the subcutaneous layer Percentage of wound debrided: 100 Instrument Used: 7mm curette Tissue Removed: Subcutaneous tissue and slough Severity: Limited To Skin Breakdown Amount of bleeding with debridement: Mild Bleeding Controlled with: Pressure, Compression and gauze Patient tolerated procedure well Assessment/Plan Active Problems (Last Updated 03/24/20 @ 21:[address] Cortez Smith MD) Ulcer of left groin with fat layer exposed (Chronic) Acute postoperative anemia due to expected blood loss (Acute) Tobacco dependence syndrome (Chronic) Hydradenitis (Chronic) bilateral inguinal and left base of scrotum Diabetes mellitus type 2, uncontrolled, with complications (Chronic) Assessment: 1. Extensive hidradenitis bilateral inguinal and perineal areas with extension to base of scrotum. 2. Extensive hidradenitis bilateral perianal areas. 3. Smoker. 4. On fpc use of Remicade. 5. Diabetes mellitus. 6. s/p surgical preparation left inguinal area with excision hidradenitis (315 cm2 total wound) and surgical preparation perineal area with excision hidradenitis (315 cm2 total wound) and surgical preparation base left scrotum with incision and drainage and excision hidradenitis (315 cm2 total wound). Plan: Continue Dakin's dressing changes daily to the left groin ulcer. At the tunneling at 6 o'clock, will place silver in that area. Ultrasound of his his left lower extremity ordered and done on 04/15/2020. It showed there was no evidence of left lower extremity deep vein thrombosis. Valves are competent and compressible. He will wear Tubigrip for compression. Instructed him to keep legs elevated when sitting. Instructed him to avoid standing for long periods of time. Operative culture shows Enterococcus faecalis and Streptococcus group F, Anaerobic cocci and Prevotella bivia. He stopped the Clindamycin and is now taking Linezolid and Flagyl for the anaerobes. The Flagyl is completed. Prealbumin from 03/23/20 was 8.2. Encourage nutritional supplementation with protein to help the healing process. Discussed this at length with both the patient and his . He has been drinking Boost. HgbA1c from 03/11/20 was 8.8. If a skin graft is needed in the future, his HgbA1c needs to be less than 8. Renewed Percocet (14). PDMP reviewed. Followup one week. [id number]: [id number] Global Visit
[2020-05-09 08:50] VITALS: BP 180/60; PULSE 103; RESP 18; TEMP 36.6; BMI 24.5
--- NOTE | 2020-05-09 11:27 | PCM.WC.PN ---
(1) Ulcer of left groin with fat layer exposed Status: Chronic Code(s): L98.492 - Non-pressure chronic ulcer of skin of other sites with fat layer exposed (2) Hydradenitis Status: Chronic Code(s): L73.2 - Hidradenitis suppurativa Comment: bilateral inguinal and left base of scrotum (3) Acute postoperative anemia due to expected blood loss Status: Acute Code(s): D62 - Acute posthemorrhagic anemia (4) Diabetes mellitus type 2, uncontrolled, with complications Status: Chronic Code(s): E11.8 - Type 2 diabetes mellitus with unspecified complications; E11.65 - Type 2 diabetes mellitus with hyperglycemia (5) Tobacco dependence syndrome Status: Chronic Code(s): F17.200 - Nicotine dependence, unspecified, uncomplicated Type of Wound Date of Service: 05/09/20 Chief Complaint: Open surgical hidradenitis wound left inguinal, perineal, and base of scrotum. History of Wound: Surgery 03/22/20 - 1. Surgical preparation left inguinal area with excision hidradenitis (315 cm2 total wound). 2. Surgical preparation perineal area with excision hidradenitis (315 cm2 total wound). 3. Surgical preparation base left scrotum with incision and drainage and excision hidradenitis (315 cm2 total wound). Wound care - Dakin's dressing changes daily, silver packed into undermining at 6:00, covered with gauze or ABD. Operative culture - Enterococcus faecalis and Streptococcus group F, Anaerobic cocci and Prevotella bivia. Taking Linezolid and completed Flagyl. Pathology - hidradenitis. Prealbumin from 03/23/20 was 8.2. Encourage nutritional supplementation with protein to help the healing process. HgbA1c from 03/11/20 was 8.8. Today he is complaining about left leg and foot swelling with some calf tenderness. Ultrasound of his his left lower extremity ordered and done 04/15/2020. It showed there was no evidence of left lower extremity deep vein thrombosis. Valves are competent and compressible. He will wear Tubigrip for compression. Instructed him to keep legs elevated when sitting. Instructed him to avoid standing for long periods of time. Today he denies fever. His appetite has not been good. Encouraged protein supplementation. Progress of Wound: Improved. Wound bed is a nice beefy pink color. - Physical Exam Vital Signs Temp Pulse Resp BP 98 F 103 H 18 180/60 H 05/09/20 08:50 05/09/20 08:50 05/09/20 08:50 05/09/20 08:50 General: Alert, Oriented x3, Cooperative HEENT: Atraumatic Oral: Moist Mucosa Lungs: Normal air movement Cardiovascular: Regular rate Extremities: Capillary Refill Less than 3 Seconds, Edema - Bilateral lower extremity edema, +1 pitting. Skin: Ulcer/ Wound - Left groin ulcer is beefy pink. There is tunneling at 6:00 and some undermining at 9:00. Wound Measurements and Assessment WC - Nurse 1 - General Ulcer Measurement Start: 04/11/20 08:49 Freq: Status: Active Protocol: Activity Type Activity Date Activity User E-Sign Co-Sign Detail Recorded Client Recorded Date Recorded By Document 05/09/20 08:50 DL [id number] 05/09/20 08:53 DL 05/09/20 08:50 Wound Center Nurse 1 [Ulcer Assessment] #1- L GROIN/BUTTOCK POST OP -Current Size (cm) - Length 13.8 -Current Size (cm) - Width 8.2 -Current Size (cm) - Depth 0.6 -Total Square Cm 113.16 -Photo Taken No -Undermining/Tunneling Starts (O' 6 clock) -Undermining/Tunneling Ends (O'clock) 6 -Maximum Distance (cm) 0.2 -Exudate Amt Medium -Exudate Type Serosanguineous -Wound Margin Distinct, Outline Attached -Granulation Amt Large (67-100%) -Granulation Quality Red -Necrosis Amt Small (1-33%) -Necrotic Tissue Type Adherent Slough -Structure Exposed N/A -Texture ([place]imbola-wound Skin Appearance) Scarring -Moisture ([place]ola-wound Skin Appearance No Abnormality ) -Color ([place]ola-wound Skin Appearance) No Abnormality -Temperature ([place]ola-wound Skin No Abnormality Appearance) (Pt Warm) -Tenderness on Palpation ([place]imbola-wound No Skin Appearance) -Ulcer Cleansing Wound Cleanser -Foul Odor after Cleansing No -Anesthetic Used 4% Lidocaine Solution WC - Nurse 2 - General Ulcer CM Notes Start: 04/11/20 08:49 Freq: Status: Active Protocol: Activity Type Activity Date Activity User E-Sign Co-Sign Detail Recorded Client Recorded Date Recorded By Document 05/09/20 09:23 [id number] 05/09/20 09:34 LIZETTE 05/09/20 09:23 Wound Center Nurse 2 [Procedure/Treatment] -Time 09:23 -Correct Patient Yes -Correct Side, Site, Position Yes -Correct Procedure Yes -Procedure Performed Yes -Type of Procedure Debridement -Clinical Debridement Subcutaneous -Tissue Removed Subcutaneous -Post Debridement (cm) - Length 14.8 -Post Debridement (cm) - Width 9 -Post Debridement (cm) - Depth 0.4 -Total Square (Post) (cm) 133.2 -Area of Debridement (cm) - Length 14.8 -Area of Debridement (cm) - Width 9 -Total Square (Area) (cm) 133.2 -Tunneling Yes -Tunneling Position (O'clock) 6 -Tunneling Distance (cm) 4.5 -Undermining/Tunneling No -Circular Undermining No -Wound/Ulcer Outcome Not Healed -Ulcer Cleansing Rinsed/ Irrigated with Saline -Foul Odor after Cleansing No -Bioengineered Tissue No -Bleeding Controlled with Pressure,Silver Nitrate -Offloading No -Treatment Response Procedure Tolerated Well -Debridement - Subq, 1st 20sq cm Yes -Debridement, SubQ, ea addt'l 20sq cm 6 or part thereof [See Physician Procedure note for Specifics] Pain Scale: 0-10 Numeric [Pain] -Is Patient Pain Free? Yes - Nurse 3 - General Ulcer D/C NN Start: 04/11/20 08:49 Freq: Status: Active Protocol: Activity Type Activity Date Activity User E-Sign Co-Sign Detail Recorded Client Recorded Date Recorded By Document 05/09/20 09:50 [facility] [id number] 05/09/20 09:50 [facility] 05/09/20 09:50 Wound Care Nurse 3 [Wound Dressing] #1- L GROIN/BUTTOCK POST OP -Ulcer Cleansing Rinsed/ Irrigated with Saline -Foul Odor after Cleansing No -Primary Dressing Applied Aquacel AG 4x4, Other -Other Dressing moist to dry, ag to tunneled/ undermined area -Primary Dressing Covered/Secured Secured with with Tape,Other -Other Covering abd -Aquacel AG 4x4 1 [Post Procedure Tolerated] -Treatment Response Procedure Tolerated Well Pain Scale: 0-10 Numeric [Pain] -Is Patient Pain Free? Yes - Visit Discharge [Visit Discharge Information] -Discharge Condition Stable -Ambulatory Status Ambulatory -Transportation Private Auto -Accompanied by [Facility Notification] -Facility Type Home Health Musculoskeletal: No Tenderness to Palpation of Joints or Extremities Neurological: Cranial nerves II-XII grossly intact Psych/Mental Status: Normal Affect, Appropriate Debridement Note Post-Debridement Measurements/Treatment - Nurse 2 - General Ulcer CM Notes Start: 04/11/20 08:49 Freq: Status: Active Protocol: Activity Type Activity Date Activity User E-Sign Co-Sign Detail Recorded Client Recorded Date Recorded By Document 04/11/20 09:29 [id number] 04/11/20 09:32 Document 04/18/20 09:09 JF [id number] 04/18/20 09:11 Document 04/25/20 09:23 JF [id number] 04/25/20 09:28 Document 05/02/20 09:08 JF [id number] 05/02/20 09:12 Document 05/09/20 09:23 [id number] 05/09/20 09:34 JF 04/11/20 04/18/20 04/25/20 09:29 09:09 09:23 Wound Center Nurse 2 #1- L GROIN/BUTTOCK POST OP -Time 09:29 09:10 09:25 -Correct Patient Yes Yes Yes -Correct Side, Site, Position Yes Yes Yes -Correct Procedure Yes Yes Yes -Procedure Performed Yes Yes Yes -Type of Procedure Debridement Debridement Debridement -Clinical Debridement Subcutaneous Subcutaneous Subcutaneous -Tissue Removed Subcutaneous Subcutaneous Subcutaneous -Post Debridement (cm) - Length 18.6 16.5 16 -Post Debridement (cm) - Width 11.5 11 10.5 -Post Debridement (cm) - Depth 1.0 1 0.5 -Total Square (Post) (cm) 213.90 181.5 168.0 -Area of Debridement (cm) - Length 18.6 16.5 16 -Area of Debridement (cm) - Width 11.5 11 10.5 -Total Square (Area) (cm) 213.90 181.5 168.0 -Tunneling No Yes Yes -Tunneling Position (O'clock) 6 6 -Tunneling Distance (cm) 3.2 3 -Undermining/Tunneling No No No -Circular Undermining No No No -Wound/Ulcer Outcome Not Healed Not Healed Not Healed -Ulcer Cleansing Rinsed/ Rinsed/ Rinsed/ Irrigated with Irrigated with Irrigated with Saline Saline Saline -Foul Odor after Cleansing No No No -Bioengineered Tissue No No No -Bleeding Controlled with Pressure Pressure Pressure -Offloading No No No -Treatment Response Procedure Procedure Procedure Tolerated Well Tolerated Well Tolerated Well -Debridement - Subq, 1st 20sq cm Yes Yes Yes -Debridement, SubQ, ea addt'l 20sq cm 10 9 8 or part thereof Pain Scale: 0-10 Numeric Is Patient Pain Free? Yes Yes Yes 05/02/20 05/09/20 09:08 09:23 Wound Center Nurse 2 #1- L GROIN/BUTTOCK POST OP -Time 09:08 09:23 -Correct Patient Yes Yes -Correct Side, Site, Position Yes Yes -Correct Procedure Yes Yes -Procedure Performed Yes Yes -Type of Procedure Debridement Debridement -Clinical Debridement Subcutaneous Subcutaneous -Tissue Removed Subcutaneous Subcutaneous -Post Debridement (cm) - Length 17.5 14.8 -Post Debridement (cm) - Width 9 9 -Post Debridement (cm) - Depth 0.5 0.4 -Total Square (Post) (cm) 157.5 133.2 -Area of Debridement (cm) - Length 17.5 14.8 -Area of Debridement (cm) - Width 9 9 -Total Square (Area) (cm) 157.5 133.2 -Tunneling Yes Yes -Tunneling Position (O'clock) 6 6 -Tunneling Distance (cm) 3.3 4.5 -Undermining/Tunneling No No -Circular Undermining No No -Wound/Ulcer Outcome Not Healed Not Healed -Ulcer Cleansing Rinsed/ Rinsed/ Irrigated with Irrigated with Saline Saline -Foul Odor after Cleansing No No -Bioengineered Tissue No No -Bleeding Controlled with Pressure Pressure,Silver Nitrate -Offloading No No -Treatment Response Procedure Procedure Tolerated Well Tolerated Well -Debridement - Subq, 1st 20sq cm Yes Yes -Debridement, SubQ, ea addt'l 20sq cm 7 6 or part thereof Pain Scale: 0-10 Numeric Is Patient Pain Free? Yes Yes - Nurse 3 - General Ulcer D/C NN Start: 04/11/20 08:49 Freq: Status: Active Protocol: Activity Type Activity Date Activity User E-Sign Co-Sign Detail Recorded Client Recorded Date Recorded By Document 04/11/20 09:51 [facility] [id number] 04/11/20 09:53 BMF Document 04/25/20 09:44 BMF [id number] 04/25/20 09:45 BMF Document 05/02/20 09:28 DL [id number] 05/02/20 09:29 DL Document 05/09/20 09:50 [facility] [id number] 05/09/20 09:50 [facility] 04/11/20 04/25/20 05/02/20 09:51 09:44 09:28 Wound Care Nurse 3 #1- L GROIN/BUTTOCK POST OP -Ulcer Cleansing Rinsed/ Rinsed/ Rinsed/ Irrigated with Irrigated with Irrigated with Saline Saline Saline -Foul Odor after Cleansing No No No -Primary Dressing Applied Other Other Aquacel AG 2x2 -Other Dressing moist to dry moist to dry moist gauze per serena pelaez rn -Primary Dressing Covered/Secured with Dry Gauze, Secured with Dry Gauze, Secured with Tape,Other Secured with Tape,Other Tape -Other Covering abd abd -Aquacel AG 4x4 -Aquacel AG 2x2 1 Treatment Response Procedure Procedure Procedure Tolerated Well Tolerated Well Tolerated Well Pain Scale: 0-10 Numeric Is Patient Pain Free? Yes Yes Yes WC - Visit Discharge Discharge Condition Stable Stable Stable Ambulatory Status Ambulatory Ambulatory Ambulatory Transportation Private Auto Private Auto Private Auto Accompanied by Facility Type Home Health 05/09/20 09:50 Wound Care Nurse 3 #1- L GROIN/BUTTOCK POST OP -Ulcer Cleansing Rinsed/ Irrigated with Saline -Foul Odor after Cleansing No -Primary Dressing Applied Aquacel AG 4x4, Other -Other Dressing moist to dry, ag to tunneled/ undermined area -Primary Dressing Covered/Secured with Secured with Tape,Other -Other Covering abd -Aquacel AG 4x4 1 -Aquacel AG 2x2 Treatment Response Procedure Tolerated Well Pain Scale: 0-10 Numeric Is Patient Pain Free? Yes WC - Visit Discharge Discharge Condition Stable Ambulatory Status Ambulatory Transportation Private Auto Accompanied by Facility Type Home Health Wound debrided: Groin ulcer Laterality: Left Type of Debridement: Excisional debridement Anesthesia Used: 5% Lidocaine Gel Depth: Down to and including healthy tissue, in the subcutaneous layer Percentage of wound debrided: 100 Instrument Used: 7mm curette Tissue Removed: Subcutaneous tissue and slough Severity: Fat Layer Exposed Amount of bleeding with debridement: Moderate Bleeding Controlled with: Pressure, Compression and gauze, Silver Nitrate, Gel Foam Patient tolerated procedure well Assessment/Plan Active Problems (Last Updated 03/24/20 @ 21:[address] Cortez Smith MD) Ulcer of left groin with fat layer exposed (Chronic) Acute postoperative anemia due to expected blood loss (Acute) Tobacco dependence syndrome (Chronic) Hydradenitis (Chronic) bilateral inguinal and left base of scrotum Diabetes mellitus type 2, uncontrolled, with complications (Chronic) Assessment: 1. Extensive hidradenitis bilateral inguinal and perineal areas with extension to base of scrotum. 2. Extensive hidradenitis bilateral perianal areas. 3. Smoker. 4. On long term care social worker use of Remicade. 5. Diabetes mellitus. 6. s/p surgical preparation left inguinal area with excision hidradenitis (315 cm2 total wound) and surgical preparation perineal area with excision hidradenitis (315 cm2 total wound) and surgical preparation base left scrotum with incision and drainage and excision hidradenitis (315 cm2 total wound). Plan: Today with the debridement of his ulcer, he had increased bleeding from the tunneled area that required compression, gel foam and then finally silver nitrate before it stopped bleeding. The patient tolerated it well. Wound care - continue Dakin's dressing changes daily to the left groin ulcer. At the tunneling at 6 o'clock, will place silver in that area. Ultrasound of his his left lower extremity ordered and done on 04/15/2020. It showed there was no evidence of left lower extremity deep vein thrombosis. Valves are competent and compressible. He will wear Tubigrip for compression. Instructed him to keep legs elevated when sitting. Instructed him to avoid standing for long periods of time. Operative culture shows Enterococcus faecalis and Streptococcus group F, Anaerobic cocci and Prevotella bivia. He stopped the Clindamycin and is now taking Linezolid and has completed the Flagyl for the anaerobes. Prealbumin from 03/23/20 was 8.2. Encourage nutritional supplementation with protein to help the healing process. Discussed this at length with both the patient and his . He has been drinking Boost. HgbA1c from 03/11/20 was 8.8. If a skin graft is needed in the future, his HgbA1c needs to be less than 8. Renewed Percocet (14). PDMP reviewed. Followup one week. [id number]: [id number] Global Visit
== END 2020-05-11 23:59 ==
LOC: WC 08:45
PROVIDERS: PCP Nurse Practitioner; Referring Provider Nurse Practitioner Family; Visit Provider Surgery
DX: L73.2 Hidradenitis suppurativa (principal); F17.200 Nicotine dependence, unspecified, uncomplicated; E11.65 Type 2 diabetes mellitus with hyperglycemia; T81.89XA Other complications of procedures, not elsewhere classified, initial encounter; Y83.8 Other surgical procedures as the cause of abnormal reaction of the patient, or of later complication, without mention of misadventure at the time of the procedure; M79.89 Other specified soft tissue disorders; L98.491 Non-pressure chronic ulcer of skin of other sites limited to breakdown of skin; L98.492 Non-pressure chronic ulcer of skin of other sites with fat layer exposed
CPT/HCPCS: 11042; 11045

== ENCOUNTER → 2020-05-18 22:54 | Outpatient (CLI) | payer OTHER, SELFPAY ==
[2020-05-16 08:46] VITALS: BMI 24.5
[2020-05-18 23:04] LABS: Hematocrit 17.9 % (40-54); Hemoglobin 5.3 g/dL (13.0-16.5); Mean Corp Hgb Conc 29.6 g/dL (32-36); Mean Corpuscular Hgb 26.4 pg (27.0-32.0); Mean Corpuscular Volume 89.1 fL (80-94); Mean Platelet Vol. 10.9 fl (6.2-12.0); POSITIVE COUNT YES; POSITIVE MORPHOLOGY YES; Platelet Count 293 K/mm3 (150-450); RBC Distribution Width CV 24.5 % (11.6-14.6); RBC Distribution Width SD 63.8 fl (35.1-43.9); Red Blood Count 2.01 M/mm3 (4.6-6.2)
[2020-05-18 23:12] LABS: Differential Indicated MANUAL DIFF
[2020-05-18 23:25] LABS: ALB/GLOB Ratio 0.5 RATIO (0.9-2.4); AST(SGOT) 14 U/L (15-37); Alanine Aminotransfer ALT/SGPT 21 U/L (16-61); Albumin, Serum 2.6 g/dL (3.2-5.0); Alkaline Phosphatase 129 U/L (45-117); Anion Gap 3 (5-15); BUN 8 mg/dL (7-18); BUN/Creat Ratio 7.1 RATIO (10-20); Calcium,Total 8.4 mg/dL (8.5-10.1); Chloride 104 mmol/L (98-107); Cholesterol 116 mg/dL (200); Creatinine, Serum 1.12 mg/dL (0.70-1.30); EST Glomerular Filtration Rate 72 mL/min (>60); Est Glom Filt Rate - Afr Amer 87 mL/min (>60); Glucose 149 mg/dL (74-106); High Density Lipoprotein 34 mg/dL; Potassium 4.7 mmol/L (3.5-5.1); Protein, Total 7.6 g/dL (6.4-8.2); Sodium Level 133 mmol/L (136-145); Triglycerides 94 mg/dL; Very Low Density Lipoprotein 19 mg/dL (5-40)
[2020-05-18 23:53] LABS: Corrected WBC 14.2 K/mm3 (4.4-11.0); Hypochromasia 3+; Lymphocyte 20 % (19-41); Metamyelocyte 1 % (0-1); Monocyte 5 % (0-10); Neutrophil-Segmented 74 % (47-70); Nucleated Red Bld Cells,Manual 8 % (0-5); Platelet Estimate ADEQUATE (ADEQ); Red Cell Morphology N CYTIC NORMAL (NORM C&C); Total Cells Counted 100 (MANUAL DIFF)
[2020-05-19 00:05] LABS: Absolute Lymphocyte Count 2.85 X10^3/uL (0.83-4.51); Absolute Neutrophil Count 10.5 X10^3/uL (2.0-7.7)
[2020-05-19 14:21] LABS: Pathologist Review Reviewed
== END ==
PROVIDERS: PCP Nurse Practitioner; Referring Provider Nurse Practitioner; Visit Provider Nurse Practitioner
DX: E11.65 Type 2 diabetes mellitus with hyperglycemia (principal); I10 Essential (primary) hypertension; L73.2 Hidradenitis suppurativa
CPT/HCPCS: 80053; 80061; 83036; 85025

== ENCOUNTER 2020-05-19 08:42 | Inpatient (IN) | payer OTHER, SELFPAY ==
[2020-05-16 08:46] VITALS: BMI 24.5
[2020-05-19] VITALS (23 sets, daily range): BP systolic 148–182; BP diastolic 52–88; PULSE 77–90; RESP 14–24; TEMP 36.3–37.1; O2SAT 95–100; BMI 24.9
--- NOTE | 2020-05-19 09:11 | EKG12_ITS ---
Test Reason : ABN LABS Blood Pressure : / mmHG Vent. Rate : 085 BPM Atrial Rate : 085 BPM P-R Int : 126 ms QRS Dur : 086 ms QT Int : 386 ms P-R-T Axes : 070 070 096 degrees QTc Int : 459 ms Sinus rhythm with Premature supraventricular complexes Moderate voltage criteria for LVH, may be normal variant Borderline ECG Confirmed by NOE RODRIGUEZ, STELLA ([id number]), editor department JORDON DODD ([id number]) on 05/23/2020 2:12:37 PM Referred By: DIETER Confirmed By:STELLA LIU MD
--- NOTE | 2020-05-19 09:13 | ED.VISSUMM ---
- ER Visit Summary Date of Service: 05/19/20 Chief Complaint: [Abnormal labs] History of Present Illness: The patient is a 54 M [presents to the emergency department with complaint of abnormal labs that were drawn yesterday. Patient was called today and told to come to the ER because his hemoglobin was low and his white blood cell count was high. Patient tells me he had a surgery on March 22 for hidradenitis suppurativa of his left groin. Patient has a wound to this area that he goes and sees the wound center for every Saturday. Patient denies any blood in stool or black tarry stools. He denies abdominal pain. Patient also mentions that he is had some left-sided back pain for a couple of weeks in a week and a half ago when saw a chiropractor to get adjusted but does not seem to have helped the pain. He describes a sharp pain that at times takes his breath away. Pain at times is positional. Patient has history of coronary artery disease, COPD, hypertension, type 2 diabetes, and hidradenitis suppurativa. Patient states that after his surgery on March 22 he required a blood transfusion.] Physical Examination: [HEENT-PERRLA, EOMI. Cranial nerves II through XII grossly intact. TMs clear. Mucous membranes moist. No adenopathy. Cardiovascular-regular rate and rhythm without murmur or ectopy Lungs-clear to auscultation, chest wall stable without crepitus or subcu emphysema Abdomen-normoactive bowel sounds, soft, nontender, no rebound or rigidity, no peritoneal signs. Rectal exam-brown stool present. No rectal masses palpated. Back exam-patient does have tenderness palpation over the left thoracic paraspinal musculature as well as the left posterior mid rib area with no ecchymosis or bruising noted. No tenderness over the thoracic or lumbar spine noted. Extremities-intact ?4, normal range of motion, normal pulses, atraumatic. Left groin-patient does have a open wound with the dressings noted in place in the left groin. Small amount of drainage is noted that is yellowish in color. No significant cellulitic changes noted.] Test Results: [EKG obtained arrival shows sinus rhythm with a ventricular rate of 85 bpm with occasional PACs. CBC with differential showed a white count of 12, hemoglobin 5.6, hematocrit 19, platelets 321. Chemistries unremarkable. Urinalysis normal. D-dimer was elevated 1.14. Stool Hemoccult was positive. CTA of the chest showed no PE or dissection. He had findings consistent with some CHF and bilateral small pleural effusions. Troponin was less than 0.015.] Emergency Department Course and Treatment: [] IV line established on arrival. Patient was medicated morphine and Zofran for his back pain. Patient was typed and crossed for 2 units of packed red cells Treatment Plan: [Admit] Disposition: [Admit] Impression: [Anemia Back pain Positive stool occult blood] This note was generated with [employer] dictation software. It may contain incorrect words, spelling, and punctuation that were not noted in review of the chart prior to signing ED Disposition - Plan for ED Patient: Referrals: Adina Bhat NP, INSERTER OPERATOR-C [Primary Care Provider] -
[2020-05-19 10:01] LABS: Absolute Lymphocyte Count 1.84 X10^3/uL (0.83-4.51); Absolute Neutrophil Count 8.9 X10^3/uL (2.0-7.7); Basophil# 0.03 X10^3/uL; Basophil% 0.3 % (0-1); Eosinophil# 0.06 X10^3/uL; Eosinophils% 0.5 % (0-5); Hematocrit 19.2 % (40-54); Lymphocyte # 1.84 X10^3/ul (4.0); Lymphocyte % 15.4 % (19-41); Mean Corp Hgb Conc 29.2 g/dL (32-36); Mean Corpuscular Hgb 25.7 pg (27.0-32.0); Mean Corpuscular Volume 88.1 fL (80-94); Mean Platelet Vol. 8.9 fl (6.2-12.0); Monocyte# 0.92 X10^3/uL; Monocyte% 7.7 % (0-10); NRBC Flagged by Analyzer 4.8 % (0-5); Neutrophil # 8.85 X10^3/uL (2.7-7.7); Neutrophil % 73.8 % (47-70); POSITIVE COUNT YES; POSITIVE MORPHOLOGY YES; Platelet Count 321 K/mm3 (150-450); RBC Distribution Width CV 25.6 % (11.6-14.6); RBC Distribution Width SD 70.6 fl (35.1-43.9); Red Blood Count 2.18 M/mm3 (4.6-6.2)
[2020-05-19 10:03] LABS: Differential Indicated SCAN CRITERIA MET
[2020-05-19 10:07] LABS: Hemoglobin 5.6 g/dL (13.0-16.5)
[2020-05-19 10:10] LABS: D-Dimer Quantitative (DVT/PE) 1.14 FEU/ug/m (0.27-0.49)
[2020-05-19 10:13] LABS: Anion Gap 4 (5-15); BUN 8 mg/dL (7-18); BUN/Creat Ratio 8.3 RATIO (10-20); Calcium,Total 8.5 mg/dL (8.5-10.1); Chloride 103 mmol/L (98-107); Creatinine, Serum 0.96 mg/dL (0.70-1.30); EST Glomerular Filtration Rate 86 mL/min (>60); Est Glom Filt Rate - Afr Amer 104 mL/min (>60); Estimated Creatinine Clearance 83.13 ml/min; Glucose 181 mg/dL (74-106); Sodium Level 133 mmol/L (136-145)
[2020-05-19] MEDS: 0.9% Normal Saline 1,000 ML 150 ML IV (10:19)
[2020-05-19 10:21] LABS: Bacteria 0 SEEN /hpf (None Seen); Mucous, Urine 0 SEEN /hpf (<or=2+); Red Blood Cells-Urine 0 SEEN /hpf (0-5); Squamous Epithelial Cells - UA 0 SEEN /hpf (0-5); White Blood Cells 0 SEEN /hpf (0-5)
[2020-05-19 10:22] LABS: Color, Urine Straw (Yellow); Glucose, Dipstick Normal (Normal); Ketone-Dipstick Negative (Negative); Leukocyte Esterase-Dipstick Negative /ul (Negative); Nitrite-Dipstick Negative (Negative); Occult Blood-Urine 10 /ul (Negative); Protein-Dipstick 100 mg/dl (Negative); Urine Bilirubin Dipstick Negative (Negative); Urine Clarity Clear (Clear); Urine Urobilinogen Normal (Normal); Urine pH 6.5 (5.0 - 8.0)
[2020-05-19 10:22] LABS: Anisocytosis 1+; Hypochromasia 3+; Microcytosis 2+; Platelet Estimate ADEQUATE (ADEQ); Polychromasia 2+
--- NOTE | 2020-05-19 11:01 | CT_ITS ---
STUDY: CTA CHEST REASON FOR EXAM: Male, 54 years old. back pain RADIATION DOSAGE (If Supplied By Facility): CTDIvol = ( 9.31 ) mGy, DLP = ( 446.60 ) mGycm TECHNIQUE: The examination was performed with the intravenous administration of IV 100mL Isovue-370. Post-processing of the angiographic images was performed, with multiplanar reformation and 3D reconstruction. Individualized dose optimization techniques were used for this CT. COMPARISON: None. FINDINGS: Normal enhancement of the main pulmonary artery and right and left pulmonary arteries. Normal enhancement of the bilateral peripheral pulmonary arteries. There is no demonstrated pulmonary embolism. Normal thoracic aorta and visualized great vessels. There is no demonstrated aortic dissection. Normal heart and pericardium. There is borderline enlargement of the mediastinal lymph nodes most likely due to congestion or reactive lymphoid hyperplasia. Normal hilar regions. Normal visualized trachea and bronchi. The lungs are well expanded. There is diffuse interstitial thickening suggesting pulmonary edema. Small bilateral pleural effusions are evident. Normal chest wall structures. Normal osseous structures. Normal visualized upper abdomen. CT/CTA Chest W/WO Contrast IMPRESSION: CHF. No demonstrated pulmonary embolism or arterial dissection. Electronically Signed: Roxy Reveles MD at 12:40 EDT Tel , Service support ,
[2020-05-19] MEDS: Ondansetron 4 MG/2 ML Vial IV (12:35)
[2020-05-19] MEDS: Morphine 4 MG/ML Syringe IV ×2 (12:35→17:40)
--- NOTE | 2020-05-19 13:18 | PCM.HP.STD ---
Problem List (1) Acute blood loss anemia Status: Acute (2) Anemia of chronic disease Status: Chronic (3) Ulcer of left groin with fat layer exposed Status: Chronic (4) Open wound of scrotum Status: Acute (5) Infection of scrotum Status: Chronic Comment: hidradenitis left base of scrotum (6) Acute postoperative anemia due to expected blood loss Status: Acute (7) Infliximab (Remicade) long-term use Status: Chronic (8) Hidradenitis suppurativa of anus Status: Chronic Comment: bilateral perianal (9) Hypertension Status: Chronic Qualifiers: (10) Tobacco dependence syndrome Status: Chronic (11) Anemia Status: Acute Qualifiers: (12) Malnutrition Status: Chronic Qualifiers: (13) Cough Status: Acute (14) Pneumonia involving right lung Status: Acute (15) Pain in the groin Status: Acute Qualifiers: (16) Hydradenitis Status: Chronic Comment: bilateral inguinal and left base of scrotum (17) Diabetes mellitus type 2, uncontrolled, with complications Status: Chronic History of Present Illness Date of Admission: 05/19/20 Chief Complaint: Severe anemia The patient is a 54 year old M with history of hidradenitis in the groin status post debridement x2 in the last 2 weeks was sent by PCP for hemoglobin of about 5, WBC 15,000. Patient had left groin adenitis suppurativa and had surgery in March 2020. Last 2 weeks patient had debridement and had severe bleeding which took 15 to 20 minutes for hemostasis. For past 2 weeks, patient also feels generalized weakness, shortness of breath on exertion, bilateral lower leg swelling, left more than right. He denies obvious or visible hematemesis, melena or hematochezia. He never had EGD or colonoscopy. Stool for occult blood positive. In triage vitals shows blood pressure 168/65, heart rate 51. No hypoxia or tachypnea. Lab work in ER shows hemoglobin 5.6. Leukocytosis 12,000 improved from outpatient 14.2 thousand. Past Medical History Past Medical History (Chronic Problems): Chronic Problems (Last Updated 03/24/20 @ 21:[address] Cortez Smith MD) Ulcer of left groin with fat layer exposed (Chronic) Anemia of chronic disease (Chronic) Infection of scrotum (Chronic) hidradenitis left base of scrotum Infliximab (Remicade) long-term use (Chronic) Hidradenitis suppurativa of anus (Chronic) bilateral perianal Hypertension (Chronic) Tobacco dependence syndrome (Chronic) Malnutrition (Chronic) Hydradenitis (Chronic) bilateral inguinal and left base of scrotum Diabetes mellitus type 2, uncontrolled, with complications (Chronic) Medical History: Medical History (Last Updated 03/24/20 @ 21:[address] Cortez Smith MD) Hidradenitis suppurativa of anus (Chronic) L73.2 bilateral perianal Anemia (Acute) D64.9 Malnutrition (Chronic) E46 Pneumonia involving right lung (Acute) J18.9 Pain in the groin (Acute) R10.30 Hydradenitis (Chronic) L73.2 bilateral inguinal and left base of scrotum Diabetes mellitus type 2, uncontrolled, with complications (Chronic) E11.8, E11.65 COPD (chronic obstructive pulmonary disease) J44.9 Diabetes type 2, uncontrolled E11.65 Heart disease I51.9 Hydradenitis L73.2 groin Hyperlipidemia associated with type 2 diabetes mellitus E11.69, E78.5 Myocardial infarct I21.9 Hypertension I10 Allergies Penicillins Allergy (Verified 05/19/20 08:44) Unknown Sulfa (Sulfonamide Antibiotics) Allergy (Verified 05/19/20 08:44) Unknown bupropion [From Wellbutrin] Adverse Reaction (Severe, Verified 05/19/20 08:44) change in personality ,meanness and smoked more Home Medications: Ambulatory Orders Medication Instructions Recorded Oxycodone HCl/Acetaminophen 1 each PO BID PRN PRN 05/19/20 [Oxycodone-Acetaminophen 5-325] Surgical History: Surgical History (Last Reviewed 03/14/20 @ 12:17 by Adina Bhat NP, [employer] SALES CONSULTANT-C) History of removal of cyst Z98.890 History of tonsillectomy and adenoidectomy Z98.890 Hx of hernia repair Z98.890, Z87.19 Stented coronary artery Z95.5 2014 Smoking Status: Current every day smoker - *Family History Paternal Family History: Family History (Last Reviewed 03/14/20 @ 12:17 by Adina Bhat NP, [employer] SAL[employer] CONSULTANT-C) Aunt Lung disease Father Heart disease Hypertension Family history of high cholesterol Diabetes Mother Diabetes Daughter Epilepsy Review of Systems Constitutional: Denies: Chills, Fever, Weight Change HEENT: Denies: Head Aches, Sinus Congestion, Sinus Drainage Cardiovascular: Reports: Edema. Denies: Chest Pain, Palpitations Respiratory: Denies: Cough, Shortness of breath at rest, Sputum production Gastrointestinal: Denies: Abdominal Pain, Nausea, Vomiting Genitourinary: Denies: Dysuria Musculoskeletal: Reports: Joint Pain. Denies: Joint Tenderness Skin: Reports: Skin Changes, Wounds - Left groin wound with hidradenitis, scarring.. Denies: Rash Neurological: Denies: Numbness, Tingling, Focal weakness Psychiatric: Denies: Anxiety, Depression, Homicidal Ideations, Suicidal Ideations Hematologic/ Lymphatic: Denies: Easy Bruising, Easy Bleeding VTE Information - Inpt Only VTE Present on Admission: No VTE Mechan Device Prophylaxis: None VTE Pharm Prophylaxis ordered?: Yes Objective: Physical exam: General: Alert, Oriented x3, Cooperative HEENT: Atraumatic, PERRLA, EOMI, Normocephalic Oral: No Gingival or Mucosal Lesions/ Ulcerations Neck: Supple, No JVD, Negative Carotid Bruits Lungs: Air entry diminished in bilateral lung bases. No crepitation/rhonchi Cardiovascular: Regular rate, Regular Rhythm, Normal S1, Normal S2, No murmurs Abdomen: Bowel Sounds Present, Soft, Non Tender, Non-Distended : No renal angle tenderness. No suprapubic tenderness. Extremities: Acute bilateral leg eating edema, Capillary Refill Less than 3 Seconds Skin: Ulcer over left groin with surrounding scarring and skin changes of hidradenitis suppurativa. Tunneling of ulcer on posterior side of ulcer. Musculoskeletal: No Tenderness to Palpation of Joints or Extremities Neurological: Cranial nerves II-XII grossly intact, Deep Tendon Reflexes 2+/4 and Symmetrical, Neuro grossly intact Psych/Mental Status: Normal Affect, Appropriate. - Physical Exam Vitals/I&O's: Vital Signs Temp Pulse Resp BP Pulse Ox 97.9 F 88 19 H 167/83 H 99 05/19/20 13:00 05/19/20 13:00 05/19/20 13:00 05/19/20 13:00 05/19/20 13:00 Oxygen Delivery Method Room Air Weight: 164 lb Body Mass Index (BMI) 24.9 Finger Stick Blood Glucose 144 Intake and Output for Last 24 Hours 05/17/20 05/18/20 05/19/20 23:59 23:59 23:59 Intake Total 0 / 0 Balance 0 / 0 Microbiology Past 72 Hours 05/19/20 09:40 Stool Stool Occult Blood (RODRIGUE) - Final Occult Blood Positive Laboratory Results 05/19/20 09:42: WBC 12.0 H, RBC 2.18 L, Hgb 5.6 L*, Hct 19.2 L, MCV 88.1, MCH 25.7 L, MCHC 29.2 L, RDW Std Deviation 70.6 H, RDW Coeff of Dana 25.6 H, Plt Count 321, MPV 8.9, Immature Gran % (Auto) 2.300 H, Neut % (Auto) 73.8 H, Lymph % (Auto) 15.4 L, [place] % (Auto) 7.7, Eos % (Auto) 0.5, Baso % (Auto) 0.3, Absolute Neuts (auto) 8.9 H, Absolute Lymphs (auto) 1.84, Nucleated RBC % 4.8, Diff Path Review June, Platelet Estimate ADEQUATE, Polychromasia 2+, Hypochromasia 3+, Anisocytosis 1+, Microcytosis 2+ 05/19/20 09:42: D-Dimer Quant (PE/DVT) 1.14 H* 05/19/20 09:42: Sodium 133 L, Potassium 4.0, Chloride 103, Carbon Dioxide 26.0, Anion Gap 4 L, BUN 8, Creatinine 0.96, Estim Creat Clear Calc 83.13, Est GFR (MDRD) Af Amer 104, Est GFR (MDRD) Non-Af 86, BUN/Creatinine Ratio 8.3 L, Glucose 181 H, Calcium 8.5, Troponin I 0.027 05/19/20 09:42: Blood Type A POSITIVE, Antibody Screen NEGATIVE 05/19/20 09:42: Crossmatch See Detail 05/19/20 10:18: Urine Color Straw, Urine Clarity Clear, Urine pH 6.5, Ur Specific [place] 1.010, Urine Protein 100 H, Urine Glucose (UA) Normal, Urine Ketones Negative, Urine Occult Blood 10 H, Urine Nitrite Negative, Urine Bilirubin Negative, Urine Urobilinogen Normal, Ur Leukocyte Esterase Negative, Urine RBC 0 SEEN, Urine WBC 0 SEEN, Ur Squamous Epith Cells 0 SEEN, Urine Bacteria 0 SEEN, Urine Mucus 0 SEEN Current Medications Sodium Chloride () 1,000 mls @ 150 mls/hr IV .Q6H40M [facility] Last Admin: 05/19/20 10:19 Dose: 150 mls/hr Documented by: Assessment/Plan All Active Problems (Last Updated 03/24/20 @ 21:[address] Cortez Smith MD) Acute blood loss anemia (Acute) Open wound of scrotum (Acute) Acute postoperative anemia due to expected blood loss (Acute) Anemia (Acute) Cough (Acute) Pneumonia involving right lung (Acute) Pain in the groin (Acute) The patient is a 54 year old M with history of hidradenitis in the groin status post debridement x2 in the last 2 weeks was sent by PCP for hemoglobin of about 5, WBC 15,000 and clinical circumstance for subacute bleeding from wound debridement In triage vitals shows blood pressure 168/65, heart rate 51. No hypoxia or tachypnea. Lab work in ER shows hemoglobin 5.6. Leukocytosis 12,000 improved from outpatient 14.2 thousand. 1. Acute anemia of blood loss mostly due to recent wound debridement on top of anemia of chronic disease: Patient is being admitted in PCU. Patient baseline hemoglobin runs around 9.3/30 in March 2020. H&H dropped to 5.6/19. 2 units of PRBC transfusion ordered. Patient has occult blood test positive as per nursing staff probably trickling from wound. Patient denies recent or past history of GI bleed. If patient gets GI bleed during hospital course will consult surgeon. 2. Chronic left groin ulcer and inguinal and perineal area with tunneling, history of bilateral hidradenitis suppurativa status post debridement: Consult wound nurse. Patient has leukocytosis which is improving. He denies fever chills, nausea or vomiting or systemic symptoms. Blood culture ordered in ER. At present, no indication of systemic antibiotic. In April 03 wound culture grew Enterococcus faecalis and Streptococcus group F, anaerobic cocci. 3. Diabetes mellitus type 2: Accu-Chek insulin is covered with Humalog sliding scale. Currently is not on oral hypoglycemic agent. Glucose in BMP 181. 4. Chronic left-sided posterior back pain: Patient had the back pain for many years without benefit from chiropractor. In ER, CTPA was done with elevated D-dimer 1.14. It is negative for PE or arterial dissection. Shows small bilateral pleural effusion. No more IV fluid except blood transfusion. Lasix as needed for fluid overload in between PRBC transfusion VTE prophylaxis: Bilateral SCDs. Pharmacological prophylaxis contraindicated. Living will/advanced directive/end of life care: Patient does not have living will or advanced directive. His is power of business attorney for health after discussion of benefits/risks procedures involved with full code, DNR CC arrest and DNR CC, the patient and opted for full code Patient does want artificial life support including intubation, tube feed, ventilator and/chest compression, central venous catheter, vasopressor and DC shock if needed Total time spent in [id number] encounter in discussion of advanced directive 16 minutes. Clinical Impression(s) from Imaging Studies Chest CTA 05/19/20 11:01 IMPRESSION: CHF. No demonstrated pulmonary embolism or arterial dissection. Electronically Signed: Roxy Reveles MD at 12:40 EDT Tel , Service support , Inpatient E&M: 69603 Init Hosp L3 Procedures: 92248 Advncd Care Plan 30 Min
--- NOTE | 2020-05-19 15:20 | NURSING ---
wound photo: left groin
[2020-05-19] MEDS: Glucerna Shake 120 ML LIQUID PO ×2 (17:36→20:32)
[2020-05-19] MEDS: 0.9% Saline Lock 10 ML Syringe IV (17:40)
[2020-05-19] MEDS: oxyCODONE 5 MG Tablet PO (19:26)
--- NOTE | 2020-05-19 22:48 | PCM.PN.SRG ---
Patient Problems: Active and Suspected Problems (Last Reviewed 05/19/20 @ 13:24 by Adina Bhat RESEARCH LABORATORY TECHNICIAN, RESEARCH LABORATORY TECHNICIAN-C) Acute blood loss anemia (Acute) Acute postoperative anemia due to expected blood loss (Acute) Anemia (Acute) Cough (Acute) Pneumonia involving right lung (Acute) Pain in the groin (Acute) Subjective: Patient is known to me. Postop #[id number] On 03/22/20 patient underwent surgical preparation left inguinal area with excision hidradenitis (315 cm2 total wound) and surgical preparation perineal area with excision hidradenitis (315 cm2 total wound) and surgical preparation base left scrotum with incision and drainage and excision hidradenitis (315 cm2 total wound). He is admitted today because of a recent lab value, Hgb 5.6. His Hgb after his surgery in March was 9.3. He has had some debridements at [facility]. Had about 50 ml blood loss after a couple of debridements. Patient had no bleeding issues at home. He denies abdominal pain. - Physical Exam Vitals/I&O's: Vital Signs Temp Pulse Resp BP Pulse Ox 98.2 F 79 18 154/64 H 95 05/19/20 21:34 05/19/20 21:34 05/19/20 21:34 05/19/20 21:34 05/19/20 21:34 Oxygen Delivery Method Room Air Weight: 163 lb 15.995 oz Body Mass Index (BMI) 24.9 Finger Stick Blood Glucose 144 Intake and Output for Last 24 Hours 05/17/20 05/18/20 05/19/20 23:59 23:59 23:59 Intake Total 4 / 1864 Balance 1863 / 186 General: Alert, Oriented x3 HEENT: PERRLA, EOMI Oral: Moist Mucosa Neck: Supple Abdomen: Soft, Non-Distended Skin: Ulcer/ Wound - Hidradenitis ulcers are stable. No bleedings seen. Good granulation tissue seen. Ulcer redressed with Dakin's dressing changes. Neurological: Cranial nerves II-XII grossly intact Psych/Mental Status: Normal Affect, Appropriate Microbiology Past 72 Hours 05/19/20 09:40 Stool Stool Occult Blood (RODRIGUE) - Final Occult Blood Positive Laboratory Results 05/19/20 09:42: WBC 12.0 H, RBC 2.18 L, Hgb 5.6 L*, Hct 19.2 L, MCV 88.1, MCH 25.7 L, MCHC 29.2 L, RDW Std Deviation 70.6 H, RDW Coeff of Dana 25.6 H, Plt Count 321, MPV 8.9, Immature Gran % (Auto) 2.300 H, Neut % (Auto) 73.8 H, Lymph % (Auto) 15.4 L, [place] % (Auto) 7.7, Eos % (Auto) 0.5, Baso % (Auto) 0.3, Absolute Neuts (auto) 8.9 H, Absolute Lymphs (auto) 1.84, Nucleated RBC % 4.8, Diff Path Review June, Platelet Estimate ADEQUATE, Polychromasia 2+, Hypochromasia 3+, Anisocytosis 1+, Microcytosis 2+ 05/19/20 09:42: D-Dimer Quant (PE/DVT) 1.14 H* 05/19/20 09:42: Sodium 133 L, Potassium 4.0, Chloride 103, Carbon Dioxide 26.0, Anion Gap 4 L, BUN 8, Creatinine 0.96, Estim Creat Clear Calc 83.13, Est GFR (MDRD) Af Amer 104, Est GFR (MDRD) Non-Af 86, BUN/Creatinine Ratio 8.3 L, Glucose 181 H, Calcium 8.5, Troponin I 0.027 05/19/20 09:42: Blood Type A POSITIVE, Antibody Screen NEGATIVE 05/19/20 09:42: Crossmatch See Detail 05/19/20 10:18: Urine Color Straw, Urine Clarity Clear, Urine pH 6.5, Ur Specific [place] 1.010, Urine Protein 100 H, Urine Glucose (UA) Normal, Urine Ketones Negative, Urine Occult Blood 10 H, Urine Nitrite Negative, Urine Bilirubin Negative, Urine Urobilinogen Normal, Ur Leukocyte Esterase Negative, Urine RBC 0 SEEN, Urine WBC 0 SEEN, Ur Squamous Epith Cells 0 SEEN, Urine Bacteria 0 SEEN, Urine Mucus 0 SEEN Current Medications Acetaminophen (Acetaminophen 325 Mg Tablet) 650 mg PO Q6H PRN PRN PRN Reason: Pain Score 1-10/Temp > 100.7 F Melatonin (Melatonin 3 Mg Tablet) 3 mg PO QHS PRN PRN PRN Reason: INSOMNIA Morphine Sulfate (Morphine 4 Mg/Ml Syringe) 4 mg IV Q3H PRN PRN PRN Reason: Pain Score 6-10 Last Admin: 05/19/20 17:40 Dose: 4 mg Documented by: Nitroglycerin (Nitroglycerin (Inpatient Use) 0.4 Mg Tab.Subl) 0.4 mg SL Q5M PRN PRN Reason: CARDIAC/CHEST PAIN Nutritional Formula (Lactose Free) (Glucerna Shake 120 Ml Liquid) 120 ml PO 4X/DAY MAE Last Admin: 05/19/20 20:32 Dose: 120 ml Documented by: Oxycodone HCl (Oxycodone 5 Mg Tablet) 5 mg PO Q4H PRN PRN PRN Reason: Pain Score 4-5 Last Admin: 05/19/20 19:26 Dose: 5 mg Documented by: Prochlorperazine Edisylate (Prochlorperazine 10 Mg/2 Ml Vial) 5 mg IV Q4H PRN PRN PRN Reason: Breakthrough Nausea/Vomiting Senna/Docusate Sodium (Senna/Docusate Sodium 1 Tablet) 2 tablet PO BID PRN PRN PRN Reason: Constipation Sodium Chloride (0.9% Saline Lock 10 Ml Syringe) 10 - 40 ml IV UD PRN PRN Reason: SALINE FLUSH Last Admin: 05/19/20 17:40 Dose: 10 ml Documented by: Sodium Hypochlorite (Dakin's Selena Half Strength (=0.25%)) 1 applic TOPICAL DAILY MAE; Protocol Medical Necessity - Tobacco Use Smoking Status: Current every day smoker Tobacco Use: Cigarettes Assessment/Plan All Active Problems (Last Reviewed 05/19/20 @ 13:24 by Adina Bhat RESEARCH LABORATORY TECHNICIAN, RESEARCH LABORATORY TECHNICIAN-C) Acute blood loss anemia (Acute) Acute postoperative anemia due to expected blood loss (Acute) Anemia (Acute) Cough (Acute) Pneumonia involving right lung (Acute) Pain in the groin (Acute) 1. Extensive hidradenitis bilateral inguinal and perineal areas with extension to base of scrotum. 2. Extensive hidradenitis bilateral perianal areas. 3. Smoker. 4. On [facility] use of Remicade. 5. Diabetes mellitus. 6. s/p surgical preparation left inguinal area with excision hidradenitis (315 cm2 total wound) and surgical preparation perineal area with excision hidradenitis (315 cm2 total wound) and surgical preparation base left scrotum with incision and drainage and excision hidradenitis (315 cm2 total wound). 7. Acute blood loss anemia, acute on chronic. 8. Nonhealing hidradenitis ulcer left inguinal area, perineal area, and base left scrotum. Ulcers appear stable with good granulation tissue. He has surrounding areas of hidradenitis that will need further surgery as well. Getting Dakin's dressing changes. Will obtain a wound culture. A positive culture will necessitate antibiotic therapy. Patient had some bleeding after debridements at the [facility]. Hemostasis was obtained with gauze compression and silver nitrate chemical cauterization. Approximate volume about 50 ml each time. Hgb was 5.6 upon admission. Getting PRBC. His Hgb after surgery in March was 9.3. Patient may have lost a unit of blood since surgery. Recommend anemia workup to look for other areas of potential blood loss, such as upper and lower endoscopy. I discussed further surgery with the patient. He wants to hold off at this time. He wants to see some more healing before proceeding with additional surgery. Will discuss further at the Wound Center. After discharge, followup at the Wound Center on 05/30/20. Encouraged patient to stop smoking as it may have deleterious effects on wound healing.
[2020-05-20] VITALS (7 sets, daily range): BP systolic 151–161; BP diastolic 65–71; PULSE 66–78; RESP 15–18; TEMP 36.6; O2SAT 95–98
[2020-05-20 06:21] LABS: Absolute Lymphocyte Count 2.21 X10^3/uL (0.83-4.51); Basophil# 0.02 X10^3/uL; Basophil% 0.2 % (0-1); Eosinophils% 1.1 % (0-5); Hematocrit 25.8 % (40-54); Hemoglobin 7.6 g/dL (13.0-16.5); Lymphocyte # 2.21 X10^3/ul (4.0); Lymphocyte % 23.9 % (19-41); Mean Corp Hgb Conc 29.5 g/dL (32-36); Mean Corpuscular Hgb 26.7 pg (27.0-32.0); Mean Corpuscular Volume 90.5 fL (80-94); Mean Platelet Vol. 9.4 fl (6.2-12.0); Monocyte# 0.84 X10^3/uL; Monocyte% 9.1 % (0-10); Neutrophil # 5.95 X10^3/uL (2.7-7.7); Neutrophil % 64.5 % (47-70); POSITIVE MORPHOLOGY YES; Platelet Count 277 K/mm3 (150-450); RBC Distribution Width CV 22.4 % (11.6-14.6); RBC Distribution Width SD 69.6 fl (35.1-43.9); Red Blood Count 2.85 M/mm3 (4.6-6.2); White Blood Count 9.2 K/mm3 (4.4-11.0)
[2020-05-20 06:33] LABS: Differential Indicated SCAN CRITERIA MET
[2020-05-20 06:44] LABS: Anisocytosis 2+; Polychromasia 1+
[2020-05-20 07:11] LABS: Anion Gap 5 (5-15); BUN 12 mg/dL (7-18); BUN/Creat Ratio 12.2 RATIO (10-20); Calcium,Total 8.2 mg/dL (8.5-10.1); Chloride 106 mmol/L (98-107); Creatinine, Serum 0.98 mg/dL (0.70-1.30); EST Glomerular Filtration Rate 84 mL/min (>60); Est Glom Filt Rate - Afr Amer 101 mL/min (>60); Estimated Creatinine Clearance 81.43 ml/min; Glucose 156 mg/dL (74-106); Potassium 4.3 mmol/L (3.5-5.1); Sodium Level 134 mmol/L (136-145)
[2020-05-20 08:43] LABS: Magnesium 2.2 mg/dL (1.6-2.6); Phosphorus 3.2 mg/dL (2.5-4.9)
[2020-05-20] MEDS: Acetaminophen 325 MG Tablet 650 MG PO (09:03)
[2020-05-20] MEDS: Glucerna Shake 120 ML LIQUID PO ×2 (09:04→13:20)
--- NOTE | 2020-05-20 09:47 | PCM.PN.SRG ---
Patient Problems: Active and Suspected Problems (Last Reviewed 05/19/20 @ 13:24 by Adina Bhat AERIAL LINEMAN, AERIAL LINEMAN-C) Acute blood loss anemia (Acute) Open wound of scrotum (Acute) Acute postoperative anemia due to expected blood loss (Acute) Anemia (Acute) Cough (Acute) Pneumonia involving right lung (Acute) Pain in the groin (Acute) Subjective: Patient sitting up in bed. He states that his rib pain is not as severe if he is sitting up. - Physical Exam Vitals/I&O's: Vital Signs Temp Pulse Resp BP Pulse Ox 97.8 F 68 15 151/65 H 96 05/20/20 08:52 05/20/20 08:52 05/20/20 08:52 05/20/20 08:52 05/20/20 08:52 Oxygen Delivery Method Room Air Weight: 163 lb 15.995 oz Body Mass Index (BMI) 24.9 Finger Stick Blood Glucose 144 Intake and Output for Last 24 Hours 05/18/20 05/19/20 05/20/20 23:59 23:59 23:59 Intake Total 1864 / 2184 560 / 560 Balance 1864 / 2184 560 / 560 General: Alert, Oriented x3, Cooperative HEENT: Atraumatic Oral: Moist Mucosa Lungs: Normal air movement Cardiovascular: Regular rate Abdomen: Soft Extremities: Capillary Refill Less than 3 Seconds, Edema - Dependent edema bilateral lower extremities. Skin: Ulcer/ Wound - Left groin ulcer is beefy pink. He has tunneling at 6 o'clock. Today there is some yellow/green drainage present with the dressing change. Wound culture obtained. Musculoskeletal: No Tenderness to Palpation of Joints or Extremities Neurological: Cranial nerves II-XII grossly intact Psych/Mental Status: Normal Affect, Appropriate Microbiology Past 72 Hours 05/19/20 09:40 Stool Stool Occult Blood (RODRIGUE) - Final Occult Blood Positive Laboratory Results 05/19/20 09:42: WBC 12.0 H, RBC 2.18 L, Hgb 5.6 L*, Hct 19.2 L, MCV 88.1, MCH 25.7 L, MCHC 29.2 L, RDW Std Deviation 70.6 H, RDW Coeff of Dana 25.6 H, Plt Count 321, MPV 8.9, Immature Gran % (Auto) 2.300 H, Neut % (Auto) 73.8 H, Lymph % (Auto) 15.4 L, [place] % (Auto) 7.7, Eos % (Auto) 0.5, Baso % (Auto) 0.3, Absolute Neuts (auto) 8.9 H, Absolute Lymphs (auto) 1.84, Nucleated RBC % 4.8, Diff Path Review May , Platelet Estimate ADEQUATE, Polychromasia 2+, Hypochromasia 3+, Anisocytosis 1+, Microcytosis 2+ 05/19/20 09:42: D-Dimer Quant (PE/DVT) 1.14 H* 05/19/20 09:42: Sodium 133 L, Potassium 4.0, Chloride 103, Carbon Dioxide 26.0, Anion Gap 4 L, BUN 8, Creatinine 0.96, Estim Creat Clear Calc 83.13, Est GFR (MDRD) Af Amer 104, Est GFR (MDRD) Non-Af 86, BUN/Creatinine Ratio 8.3 L, Glucose 181 H, Calcium 8.5, Troponin I 0.027 05/19/20 09:42: Blood Type A POSITIVE, Antibody Screen NEGATIVE 05/19/20 09:42: Crossmatch See Detail 05/19/20 10:18: Urine Color Straw, Urine Clarity Clear, Urine pH 6.5, Ur Specific [place] 1.010, Urine Protein 100 H, Urine Glucose (UA) Normal, Urine Ketones Negative, Urine Occult Blood 10 H, Urine Nitrite Negative, Urine Bilirubin Negative, Urine Urobilinogen Normal, Ur Leukocyte Esterase Negative, Urine RBC 0 SEEN, Urine WBC 0 SEEN, Ur Squamous Epith Cells 0 SEEN, Urine Bacteria 0 SEEN, Urine Mucus 0 SEEN 05/20/20 05:40: WBC 9.2, RBC 2.85 L, Hgb 7.6 L, Hct 25.8 L, MCV 90.5, MCH 26.7 L, MCHC 29.5 L, RDW Std Deviation 69.6 H, RDW Coeff of Dana 22.4 H, Plt Count 277, MPV 9.4, Immature Gran % (Auto) 1.200 H, Neut % (Auto) 64.5, Lymph % (Auto) 23.9, [place] % (Auto) 9.1, Eos % (Auto) 1.1, Baso % (Auto) 0.2, Absolute Neuts (auto) 6.0, Absolute Lymphs (auto) 2.21, Nucleated RBC % 2.0, Polychromasia 1+, Anisocytosis 2+ 05/20/20 05:40: Sodium 134 L, Potassium 4.3, Chloride 106, Carbon Dioxide 23.0, Anion Gap 5, BUN 12, Creatinine 0.98, Estim Creat Clear Calc 81.43, Est GFR (MDRD) Af Amer 101, Est GFR (MDRD) Non-Af 84, BUN/Creatinine Ratio 12.2, Glucose 156 H, Calcium 8.2 L 05/20/20 05:40: Phosphorus 3.2, Magnesium 2.2 Current Medications Acetaminophen (Acetaminophen 325 Mg Tablet) 650 mg PO Q6H PRN PRN PRN Reason: Pain Score 1-10/Temp > 100.7 F Last Admin: 05/20/20 09:03 Dose: 650 mg Documented by: Melatonin (Melatonin 3 Mg Tablet) 3 mg PO QHS PRN PRN PRN Reason: INSOMNIA Morphine Sulfate (Morphine 4 Mg/Ml Syringe) 4 mg IV Q3H PRN PRN PRN Reason: Pain Score 6-10 Last Admin: 05/19/20 17:40 Dose: 4 mg Documented by: Nitroglycerin (Nitroglycerin (Inpatient Use) 0.4 Mg Tab.Subl) 0.4 mg SL Q5M PRN PRN Reason: CARDIAC/CHEST PAIN Nutritional Formula (Lactose Free) (Glucerna Shake 120 Ml Liquid) 120 ml PO 4X/DAY MAE Last Admin: 05/20/20 09:04 Dose: 120 ml Documented by: Oxycodone HCl (Oxycodone 5 Mg Tablet) 5 mg PO Q4H PRN PRN PRN Reason: Pain Score 4-5 Last Admin: 05/19/20 19:26 Dose: 5 mg Documented by: Prochlorperazine Edisylate (Prochlorperazine 10 Mg/2 Ml Vial) 5 mg IV Q4H PRN PRN PRN Reason: Breakthrough Nausea/Vomiting Senna/Docusate Sodium (Senna/Docusate Sodium 1 Tablet) 2 tablet PO BID PRN PRN PRN Reason: Constipation Sodium Chloride (0.9% Saline Lock 10 Ml Syringe) 10 - 40 ml IV UD PRN PRN Reason: SALINE FLUSH Last Admin: 05/19/20 17:40 Dose: 10 ml Documented by: Sodium Hypochlorite (Dakin's Selena Half Strength (=0.25%)) 1 applic TOPICAL DAILY MAE; Protocol Medical Necessity - Tobacco Use Smoking Status: Current every day smoker Tobacco Use: Cigarettes Assessment/Plan All Active Problems (Last Reviewed 05/19/20 @ 13:24 by Adina Bhat AERIAL LINEMAN, AERIAL LINEMAN-C) Acute blood loss anemia (Acute) Open wound of scrotum (Acute) Acute postoperative anemia due to expected blood loss (Acute) Anemia (Acute) Cough (Acute) Pneumonia involving right lung (Acute) Pain in the groin (Acute) 1. Acute blood loss anemia. 2. Left groin ulcer. 3. Left groin pain. 4. Hidradenitis suppurative 5. DM, type 2. 6. Left back/flank pain. 7. Tobacco dependance. Patient states his pain has been controlled with the medication they are giving him in the hospital. He states his left back pain is worse than his left groin pain from his ulcer. Left groin dressing changed. No bleeding noticed. Dakin's moistened gauzed placed in ulcer, including the tunneling at 6 o'clock. Covered by an ABD. Wound culture obtained today. Depending on the results of the culture, it may necessitate the need for treatment with antibiotics. He continues to have active flare up of hidradenitis of his right groin and right scrotum. He is draining thick, white drainage. When he was at the wound center this past Saturday and the on Saturday05/09/20,he experienced some bleeding from the tunnel area after debridement. This bleeding was controlled with pressure and silver nitrate. The approximate blood loss each week was 50 ml. He was no longer bleeding when he left the wound center. He has been having left back/flank pain for weeks. He had been seeing a chiropractor. On Saturday he was instructed to follow up with his PCP for further workup (which he did, because the lab work was obtained and hemoglobin 5.6 on 05/19/20). He has received 2 units of PRBC's. Hemoglobin 7.6 today. He does not need to follow up at the wound center on Tuesday 05/23. He can be seen 05/30/20. Encouraged to increase protein intake and to supplement protein. Encouraged to stop smoking. [id number]: [id number] Global Visit
[2020-05-20] MEDS: DAKIN'S SOL HALF STRENGTH (=0.25%) 1 APPLIC TOPICAL (09:52)
--- NOTE | 2020-05-20 10:00 | CASEMGMT ---
Per Evelia, principal secretary, [facility] called and states is active with pt. JAVY order placed and faxed with H&P to [facility]. CM to follow. Yoshi NARVAEZ CM
--- NOTE | 2020-05-20 10:15 | CASEMGMT ---
RN CM Face to Face with patient for initial transition planning/care coordination assessment. RN CM introduced self and role at [facility]. Patient lying in bed, alert and oriented. Patient willing to participate in assessment and is able to answer all questions appropriately. Care providers, pharmacy, and demographics verified. [facility] Patient states he has no further needs or concerns at this time. CM to follow for discharge planning needs that may arise. PCP: [facility] Specialists: fred Smith Preferred Pharmacy: [facility] Insurance: [place] Prescription Benefit: yes Living Will/HPOA: yes Shima Santos HPOA LNOK: , alisson Living Arrangements: Patient lives with in a single story home with 5 steps and railing to enter the home. Patient states he is independent at home. Transportation: self/ DME/HHC: Patient states he has raised toilet, cane, and walker at home. Patient is active with [facility]. Disposition Plan: Patient to discharge home with resumption of HHC, family support, and follow-up plans in place. Valeria TAYLORN, RN, CM
--- NOTE | 2020-05-20 11:18 | DCINST_ITS ---
- Discharge Diagnoses Current Active Problems: Current Active and Chronic Problems (Last Reviewed 05/19/20 @ 13:24 by Adina Bhat CENTRIFUGAL SUPERVISOR, CENTRIFUGAL SUPERVISOR-C) Ulcer of left groin with fat layer exposed (Chronic) Acute blood loss anemia (Acute) Anemia of chronic disease (Chronic) Open wound of scrotum (Acute) Infection of scrotum (Chronic) hidradenitis left base of scrotum Acute postoperative anemia due to expected blood loss (Acute) Infliximab (Remicade) long-term use (Chronic) Hidradenitis suppurativa of anus (Chronic) bilateral perianal Hypertension (Chronic) Tobacco dependence syndrome (Chronic) Anemia (Acute) Malnutrition (Chronic) Cough (Acute) Pneumonia involving right lung (Acute) Pain in the groin (Acute) Hydradenitis (Chronic) bilateral inguinal and left base of scrotum Diabetes mellitus type 2, uncontrolled, with complications (Chronic) You will use the following diet at home:: Cardiac Your food should be the consistency of: Regular Discharge Activity: May Not Drive Call your doctor if you observe: Fever of 101 or Higher, Numbness or Tingling, Change in Color, Inability to urinate, Inability to have a bowel movement, Shortness of breath, Dizziness, Fainting spells, Swelling in the ankles, Chest pain, Prolonged hiccoughing, Increased palpitations (irregular heartbeat), Calf discomfort, Uncontrolled pain Allergies/Adverse Reactions: Allergies Penicillins Allergy (Verified 05/19/20 08:44) Unknown Sulfa (Sulfonamide Antibiotics) Allergy (Verified 05/19/20 08:44) Unknown bupropion [From Wellbutrin] Adverse Reaction (Severe, Verified 05/19/20 08:44) change in personality ,meanness and smoked more Medications to take at Discharge Oxycodone HCl/Acetaminophen [Oxycodone-Acetaminophen 5-325] 1 each PO BID PRN PRN 05/19/20 Ascorbic Acid [Vitamin C] 500 mg PO BID #60 tablet 05/20/20 Cyanocobalamin [Vitamin B12] 1,000 mcg PO DAILY@0800 #30 tab 05/20/20 Ferrous Sulfate [Iron] 325 mg PO DAILY #90 tablet 05/20/20 Folic Acid 1 mg PO DAILY #30 tablet 05/20/20 The following prescriptions were given: Folic Acid 1 mg PO DAILY #30 tablet Transmission Status: Pending to [facility] Ferrous Sulfate [Iron] 325 mg PO DAILY #90 tablet Transmission Status: Pending to [facility] Cyanocobalamin [Vitamin B12] 1,000 mcg PO DAILY@0800 #30 tab Transmission Status: Pending to [facility] Ascorbic Acid [Vitamin C] 500 mg PO BID #60 tablet Transmission Status: Pending to [facility] Primary Care Physician: Adina Bhat CENTRIFUGAL SUPERVISOR, CENTRIFUGAL SUPERVISOR-C [Primary Care Provider] - Please follow up with your Primary Care Physician in: in 2 weeks for anemia Test Results: Test results from this visit will be discussed in further detail at your follow- up appointment, if applicable. Please Follow Up With: Cortez Smith MD When: in wound clinic
--- NOTE | 2020-05-20 11:21 | DS.PCM_ITS ---
Discharge Date and Diagnosis - Problem List Patient Problems: Active and Suspected Problems (Last Reviewed 05/19/20 @ 13:24 by Adina Bhat NP, CHAIN MAKER LOOM CONTROL-C) Acute blood loss anemia (Acute) Open wound of scrotum (Acute) Acute postoperative anemia due to expected blood loss (Acute) Anemia (Acute) Cough (Acute) Pneumonia involving right lung (Acute) Pain in the groin (Acute) Date of Admission: 05/19/20 Date of Discharge: 05/20/20 - Primary Discharge Diagnosis Acute Problems: Active Problems (Last Reviewed 05/19/20 @ 13:24 by Adina Bhat NP, CHAIN MAKER LOOM CONTROL-C) Acute blood loss anemia (Acute) Open wound of scrotum (Acute) Acute postoperative anemia due to expected blood loss (Acute) Anemia (Acute) Cough (Acute) Pneumonia involving right lung (Acute) Pain in the groin (Acute) - Secondary Discharge Diagnosis Chronic Problems: Chronic Problems (Last Reviewed 05/19/20 @ 13:24 by Adina Bhat NP, CHAIN MAKER LOOM CONTROL-C) Ulcer of left groin with fat layer exposed (Chronic) Anemia of chronic disease (Chronic) Infection of scrotum (Chronic) hidradenitis left base of scrotum Infliximab (Remicade) long-term use (Chronic) Hidradenitis suppurativa of anus (Chronic) bilateral perianal Hypertension (Chronic) Tobacco dependence syndrome (Chronic) Malnutrition (Chronic) Hydradenitis (Chronic) bilateral inguinal and left base of scrotum Diabetes mellitus type 2, uncontrolled, with complications (Chronic) Hospital Course and Treatment Consultations 05/19/20 14:19 Consult: Onc/Wound/poultry processing supervisor Routine Comment: Reason for Consult:: left groin wound Summary of Care Provided: [] The patient is a 54 year old M with history of hidradenitis in the groin status post debridement x2 in the last 2 weeks was sent by PCP for hemoglobin of about 5, WBC 15,000 and clinical circumstance for subacute bleeding from wound debridement In triage vitals shows blood pressure 168/65, heart rate 51. No hypoxia or tachypnea. Lab work in ER shows hemoglobin 5.6. Leukocytosis 12,000 improved from outpatient 14.2 thousand. 1. Acute anemia of blood loss mostly due to recent wound debridement on top of anemia of chronic disease: Patient is being admitted in PCU. Patient baseline hemoglobin runs around 9.3/30 in March 2020. H&H dropped to 5.6/19. 2 units of PRBC transfused. H&H improved to 7.6/25.8. Patient does not have GI bleed. 200 mg IV iron infusion done. B12 348. Folate 6.7. Discharged on ferrous sulfate 325 mg daily along with vitamin C, folic acid and vitamin B12. Patient has occult blood test positive as per nursing staff probably trickling from wound. 2. 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 Smith. Wound dressing was done. Leukocytosis resolved. Patient did not have systemic symptoms of severe sepsis or infection like fever chills, nausea or vomiting. Magnesium and phosphorus are normal today. 3. Diabetes mellitus type 2: Accu-Chek insulin is covered with Humalog sliding scale. Currently is not on oral hypoglycemic agent. Glucose in BMP 181. Repeat glucose 156. Discharged on Metformin 500 mg twice daily. 4. Chronic left-sided posterior back pain: Patient had the back pain for many years without benefit from chiropractor. In ER, CTPA was done with elevated D- dimer 1.14. It is negative for PE or arterial dissection. Shows small bilateral pleural effusion. No more IV fluid except blood transfusion. VTE prophylaxis: Bilateral SCDs. Pharmacological prophylaxis contraindicated. Discharge medication reconciliation done. Discharge follow-up instructions completed. Discharge process discussed with the patient and all questions were answered to patient's satisfaction. Patient was admitted as inpatient but was discharged because of sooner recovery than expected at time of admission. Total time spent, exact 35 minutes on discharge meds reconciliation, examination, coordination of care with nurses and ancillary staff, review of imaging and blood test and discussion with the patient on follow-up instructi ons Microbiology Past 72 Hours 05/20/20 09:30 Wound Drainage - Groin Gram Stain - Final 05/19/20 09:40 Stool Stool Occult Blood (RODRIGUE) - Final Occult Blood Positive Laboratory Results 05/19/20 09:42: Diff Path Review Reviewed 05/19/20 09:42: Crossmatch See Detail 05/19/20 09:42: Vitamin B12 348 05/20/20 05:40: WBC 9.2, RBC 2.85 L, Hgb 7.6 L, Hct 25.8 L, MCV 90.5, MCH 26.7 L , MCHC 29.5 L, RDW Std Deviation 69.6 H, RDW Coeff of Dana 22.4 H, Plt Count 277, MPV 9.4, Immature Gran % (Auto) 1.200 H, Neut % (Auto) 64.5, Lymph % (Auto) 23.9, [place] % (Auto) 9.1, Eos % (Auto) 1.1, Baso % (Auto) 0.2, Absolute Neuts (auto) 6.0, Absolute Lymphs (auto) 2.21, Nucleated RBC % 2.0, Polychromasia 1+, Anisocytosis 2+ 05/20/20 05:40: Sodium 134 L, Potassium 4.3, Chloride 106, Carbon Dioxide 23.0, Anion Gap 5, BUN 12, Creatinine 0.98, Estim Creat Clear Calc 81.43, Est GFR (MDRD) Af Amer 101, Est GFR (MDRD) Non-Af 84, BUN/Creatinine Ratio 12.2, Glucose 156 H, Calcium 8.2 L 05/20/20 05:40: Phosphorus 3.2, Magnesium 2.2 05/20/20 05:40: Folate 6.70 Patient Problems: Active and Suspected Problems (Last Reviewed 05/19/20 @ 13:24 by Adina Bhat CHAIN MAKER LOOM CONTROL, CHAIN MAKER LOOM CONTROL-C) Acute blood loss anemia (Acute) Open wound of scrotum (Acute) Acute postoperative anemia due to expected blood loss (Acute) Anemia (Acute) Cough (Acute) Pneumonia involving right lung (Acute) Pain in the groin (Acute) Objective: Seen and examined. Patient symptoms of weakness, dyspnea on exertion improved. No chest pain. No headache Blood pressure elevated 164/74?180/72. Most recent 161/65 Physical exam: General: Alert, Oriented x3, Cooperative HEENT: Atraumatic, PERRLA, EOMI, Normocephalic Oral: No Gingival or Mucosal Lesions/ Ulcerations Neck: Supple, No JVD, Negative Carotid Bruits Lungs: Air entry diminished in bilateral lung bases. No crepitation/rhonchi Cardiovascular: Regular rate, Regular Rhythm, Normal S1, Normal S2, No murmurs Abdomen: Bowel Sounds Present, Soft, Non Tender, Non-Distended : No renal angle tenderness. No suprapubic tenderness. Extremities: Acute bilateral leg eating edema, Capillary Refill Less than 3 Seconds Skin: Dressing was done in the morning. Ulcer over left inguinal region with scarring and skin changes of hidradenitis suppurativa. Tunneling of ulcer on posterior side of ulcer. Musculoskeletal: No Tenderness to Palpation of Joints or Extremities Neurological: Cranial nerves II-XII grossly intact, Deep Tendon Reflexes 2+/4 and Symmetrical, Neuro grossly intact Psych/Mental Status: Normal Affect, Appropriate. - Physical Exam Vitals/I&O's: Vital Signs Temp Pulse Resp BP Pulse Ox 97.8 F 77 15 151/65 H 97 05/20/20 08:52 05/20/20 10:35 05/20/20 08:52 05/20/20 08:52 05/20/20 10:33 Oxygen Delivery Method Room Air Weight: 163 lb 15.995 oz Body Mass Index (BMI) 24.9 Finger Stick Blood Glucose 144 Intake and Output for Last 24 Hours 05/18/20 05/19/20 05/20/20 23:59 23:59 23:59 Intake Total 1864 / 2184 920 / 920 Balance 1864 / 2184 920 / 920 Microbiology Past 72 Hours 05/19/20 09:40 Stool Stool Occult Blood (RODRIGUE) - Final Occult Blood Positive Laboratory Results 05/19/20 09:42: Crossmatch See Detail 05/20/20 05:40: WBC 9.2, RBC 2.85 L, Hgb 7.6 L, Hct 25.8 L, MCV 90.5, MCH 26.7 L , MCHC 29.5 L, RDW Std Deviation 69.6 H, RDW Coeff of Dana 22.4 H, Plt Count 277, MPV 9.4, Immature Gran % (Auto) 1.200 H, Neut % (Auto) 64.5, Lymph % (Auto) 23.9, [place] % (Auto) 9.1, Eos % (Auto) 1.1, Baso % (Auto) 0.2, Absolute Neuts (auto) 6.0, Absolute Lymphs (auto) 2.21, Nucleated RBC % 2.0, Polychromasia 1+, Anisocytosis 2+ 05/20/20 05:40: Sodium 134 L, Potassium 4.3, Chloride 106, Carbon Dioxide 23.0, Anion Gap 5, BUN 12, Creatinine 0.98, Estim Creat Clear Calc 81.43, Est GFR (MDRD) Af Amer 101, Est GFR (MDRD) Non-Af 84, BUN/Creatinine Ratio 12.2, Glucose 156 H, Calcium 8.2 L 05/20/20 05:40: Phosphorus 3.2, Magnesium 2.2 Current Medications Acetaminophen (Acetaminophen 325 Mg Tablet) 650 mg PO Q6H PRN PRN PRN Reason: Pain Score 1-10/Temp > 100.7 F Last Admin: 05/20/20 09:03 Dose: 650 mg Documented by: Ferric Sodium Gluconate Complex 250 mg/ Sodium Chloride 270 mls @ 135 mls/hr IV X1 ONE Stop: 05/20/20 13:59 Melatonin (Melatonin 3 Mg Tablet) 3 mg PO QHS PRN PRN PRN Reason: INSOMNIA Morphine Sulfate (Morphine 4 Mg/Ml Syringe) 4 mg IV Q3H PRN PRN PRN Reason: Pain Score 6-10 Last Admin: 05/19/20 17:40 Dose: 4 mg Documented by: Nitroglycerin (Nitroglycerin (Inpatient Use) 0.4 Mg Tab.Subl) 0.4 mg SL Q5M PRN PRN Reason: CARDIAC/CHEST PAIN Nutritional Formula (Lactose Free) (Glucerna Shake 120 Ml Liquid) 120 ml PO 4X/DAY MAE Last Admin: 05/20/20 09:04 Dose: 120 ml Documented by: Oxycodone HCl (Oxycodone 5 Mg Tablet) 5 mg PO Q4H PRN PRN PRN Reason: Pain Score 4-5 Last Admin: 05/19/20 19:26 Dose: 5 mg Documented by: Prochlorperazine Edisylate (Prochlorperazine 10 Mg/2 Ml Vial) 5 mg IV Q4H PRN PRN PRN Reason: Breakthrough Nausea/Vomiting Senna/Docusate Sodium (Senna/Docusate Sodium 1 Tablet) 2 tablet PO BID PRN PRN PRN Reason: Constipation Sodium Chloride (0.9% Saline Lock 10 Ml Syringe) 10 - 40 ml IV UD PRN PRN Reason: SALINE FLUSH Last Admin: 05/19/20 17:40 Dose: 10 ml Documented by: Sodium Hypochlorite (Dakin's Selena Half Strength (=0.25%)) 1 applic TOPICAL DAILY MAE; Protocol Last Admin: 05/20/20 09:52 Dose: 1 applic Documented by: Discharge Activity: May Not Drive Call your doctor if you observe: Fever of 101 or Higher, Numbness or Tingling, Change in Color, Inability to urinate, Inability to have a bowel movement, Shortness of breath, Dizziness, Fainting spells, Swelling in the ankles, Chest pain, Prolonged hiccoughing, Increased palpitations (irregular heartbeat), Calf discomfort, Uncontrolled pain Home Medications: Medications to take at Discharge Oxycodone HCl/Acetaminophen [Oxycodone-Acetaminophen 5-325] 1 each PO BID PRN PRN 05/19/20 Ascorbic Acid [Vitamin C] 500 mg PO BID #60 tablet 05/20/20 Cyanocobalamin [Vitamin B12] 1,000 mcg PO DAILY@0800 #30 tab 05/20/20 Ferrous Sulfate [Iron] 325 mg PO DAILY #90 tablet 05/20/20 Folic Acid 1 mg PO DAILY #30 tablet 05/20/20 Losartan Potassium [Cozaar] 50 mg PO DAILY #30 tablet 05/20/20 Following Prescriptions Were Given to Patient: Losartan Potassium [Cozaar] 50 mg PO DAILY #30 tablet Transmission Status: Received by [facility] Folic Acid 1 mg PO DAILY #30 tablet Transmission Status: Received by [facility] Ferrous Sulfate [Iron] 325 mg PO DAILY #90 tablet Transmission Status: Received by [facility] Cyanocobalamin [Vitamin B12] 1,000 mcg PO DAILY@0800 #30 tab Transmission Status: Received by [facility] Ascorbic Acid [Vitamin C] 500 mg PO BID #60 tablet Transmission Status: Received by [facility] Primary Care Physician: Adina Bhat CHAIN MAKER LOOM CONTROL, CHAIN MAKER LOOM CONTROL-C [Primary Care Provider] - Please follow up with your Primary Care Physician in: in 2 weeks for anemia Please Follow Up With: Cortez Smith MD When: in wound clinic Medical Necessity - Tobacco Use Smoking Status: Current every day smoker Tobacco Use: Cigarettes Meaningful Use Info Meaningful Use Diagnoses (Choose all that apply): None applicable Inpatient E&M: 00176 [facility]
[2020-05-20] MEDS: 0.9% Saline Lock 10 ML Syringe IV (11:47)
[2020-05-20] MEDS: Sodium Ferric Gluconat 250 MG in 0.9% Normal Saline 250 ML 135 MG IV (11:47)
[2020-05-20 12:11] LABS: Vitamin B12 348 pg/mL (211-911)
[2020-05-20 13:10] LABS: Pathologist Review Reviewed
[2020-05-20] MEDS: oxyCODONE 5 MG Tablet PO (14:00)
--- NOTE | 2020-05-20 14:24 | CASEMGMT ---
Addendum entered by Valeria Mabry 05/20/20 15:52: D/C summ/instructions faxed to [facility]. Yoshi NARVAEZ CM Original Note: Pt to be discharged. Call to [facility] to notify-voice understanding, and D/C summ/instructions to be faxed once obtained. Yoshi NARVAEZ CM
== END 2020-05-20 15:40 | disposition home health service (06) | DRG 812 ==
LOC: ED 09:17 → PCU 13:47
PROVIDERS: Admitting Provider Internal Medicine; Emergency Provider Emergency Medicine; PCP Nurse Practitioner; Visit Provider Internal Medicine
DX: D62 Acute posthemorrhagic anemia (principal); E44.0 Moderate protein-calorie malnutrition; L73.2 Hidradenitis suppurativa; I25.10 Atherosclerotic heart disease of native coronary artery without angina pectoris; J44.9 Chronic obstructive pulmonary disease, unspecified; I10 Essential (primary) hypertension; E11.9 Type 2 diabetes mellitus without complications; D63.8 Anemia in other chronic diseases classified elsewhere; E78.5 Hyperlipidemia, unspecified; I25.2 Old myocardial infarction; M54.9 Dorsalgia, unspecified; G89.29 Other chronic pain; F17.210 Nicotine dependence, cigarettes, uncomplicated; L98.492 Non-pressure chronic ulcer of skin of other sites with fat layer exposed; Z68.24 Body mass index [BMI] 24.0-24.9, adult
CPT/HCPCS: 36415; 71275; 80048; 81001; 82274; 82607; 82746; 83735; 84100; 84484; 85025; 85379; 86850; 86900; 86901; 86920; 87040; 87070; 87075; 87077; 87186; 87205; 93005; 97802; 99251; 99285; 99406; J7030; J7050; P9016; Q9967; A4216; G0463; J2405; J2916

== ENCOUNTER → 2020-05-25 21:23 | Outpatient (CLI) | payer OTHER, SELFPAY ==
[2020-05-25 18:46] VITALS: BMI 25.0
[2020-05-25 21:38] LABS: Absolute Lymphocyte Count 1.73 X10^3/uL (0.83-4.51); Absolute Neutrophil Count 12.5 X10^3/uL (2.0-7.7); Basophil# 0.03 X10^3/uL; Basophil% 0.2 % (0-1); Hematocrit 31.7 % (40-54); Hemoglobin 9.4 g/dL (13.0-16.5); Lymphocyte # 1.73 X10^3/ul (0.83-4.51); Lymphocyte % 11.6 % (19-41); Mean Corp Hgb Conc 29.7 g/dL (32-36); Mean Corpuscular Hgb 26.6 pg (27.0-32.0); Mean Corpuscular Volume 89.8 fL (80-94); Monocyte# 0.62 X10^3/uL; Monocyte% 4.1 % (0-10); NRBC Flagged by Analyzer 0 % (0-5); Neutrophil # 12.51 X10^3/uL (2.7-7.7); Neutrophil % 83.6 % (47-70); POSITIVE MORPHOLOGY YES; Platelet Count 342 K/mm3 (150-450); RBC Distribution Width CV 22.1 % (11.6-14.6); Red Blood Count 3.53 M/mm3 (4.6-6.2)
[2020-05-25 21:43] LABS: Differential Indicated SCAN CRITERIA MET
[2020-05-25 21:55] LABS: ALB/GLOB Ratio 0.5 RATIO (0.9-2.4); AST(SGOT) 8 U/L (15-37); Alanine Aminotransfer ALT/SGPT 27 U/L (16-61); Albumin, Serum 2.5 g/dL (3.2-5.0); Alkaline Phosphatase 107 U/L (45-117); Anion Gap 2 (5-15); BUN 8 mg/dL (7-18); BUN/Creat Ratio 7.7 RATIO (10-20); Calcium,Total 8.7 mg/dL (8.5-10.1); Chloride 103 mmol/L (98-107); Creatinine, Serum 1.04 mg/dL (0.70-1.30); EST Glomerular Filtration Rate 78 mL/min (>60); Est Glom Filt Rate - Afr Amer 95 mL/min (>60); Ferritin 153 ng/mL (26-388); Globulin 4.8 g/dL (2.2-4.2); Glucose 268 mg/dL (74-106); Iron Binding Capacity,Total 261 ug/dL (250-450); Lipase 105 U/L (73-393); Potassium 4.5 mmol/L (3.5-5.1); Protein, Total 7.3 g/dL (6.4-8.2); Sodium Level 134 mmol/L (136-145)
[2020-05-25 22:59] LABS: Anisocytosis 1+; Differential Comment SCANNED
[2020-05-27 15:49] LABS: Transferrin 217 mg/dL (177-329)
[2020-05-28 20:05] LABS: Vitamin D 1,25-Dihydroxy 49.6 pg/mL (19.9-79.3)
== END ==
PROVIDERS: PCP Nurse Practitioner; Referring Provider Nurse Practitioner; Visit Provider Nurse Practitioner
DX: D62 Acute posthemorrhagic anemia (principal); R10.9 Unspecified abdominal pain; E55.9 Vitamin D deficiency, unspecified; D64.9 Anemia, unspecified
CPT/HCPCS: 80053; 82652; 82728; 83550; 83690; 84466; 85025

== ENCOUNTER 2020-05-29 04:06 | Emergency (ER) | payer OTHER, SELFPAY ==
[2020-05-25 18:46] VITALS: BMI 25.0
[2020-05-29 04:07] VITALS: BP 148/60; PULSE 107; RESP 18; TEMP 39.3; O2SAT 95; BMI 24.2
[2020-05-29 04:10] VITALS: BP 148/60; PULSE 107; RESP 18; TEMP 39.3; O2SAT 95
[2020-05-29 04:52] LABS: Absolute Lymphocyte Count 0.39 X10^3/uL (0.83-4.51); Absolute Neutrophil Count 12.6 X10^3/uL (2.0-7.7); Basophil# 0.03 X10^3/uL; Basophil% 0.2 % (0-1); Differential Indicated SCAN CRITERIA MET; Eosinophil# 0.02 X10^3/uL; Eosinophils% 0.2 % (0-5); Hematocrit 30.5 % (40-54); Hemoglobin 9.1 g/dL (13.0-16.5); Lymphocyte # 0.39 X10^3/ul (0.83-4.51); Lymphocyte % 2.9 % (19-41); Mean Corp Hgb Conc 29.8 g/dL (32-36); Mean Corpuscular Hgb 26.5 pg (27.0-32.0); Mean Corpuscular Volume 88.9 fL (80-94); Mean Platelet Vol. 9.3 fl (6.2-12.0); Monocyte% 1.5 % (0-10); NRBC Flagged by Analyzer 0 % (0-5); Neutrophil # 12.58 X10^3/uL (2.7-7.7); Neutrophil % 94.7 % (47-70); POSITIVE DIFFERENTIAL YES; Platelet Count 333 K/mm3 (150-450); RBC Distribution Width CV 19.9 % (11.6-14.6); RBC Distribution Width SD 63.9 fl (35.1-43.9); Red Blood Count 3.43 M/mm3 (4.6-6.2); White Blood Count 13.3 K/mm3 (4.4-11.0)
--- NOTE | 2020-05-29 05:00 | RAD_ITS ---
STUDY: X-RAY CHEST REASON FOR EXAM: Male, 54 years old. fever -- recent EGD TECHNIQUE: Single AP portable view of the chest. 2 images COMPARISON: None. FINDINGS: There are superimposed monitor leads. There is bilateral predominantly basilar left greater than right interstitial prominence, blunting of the left costophrenic angle. There are areas of hyperinflation. There is no demonstrated pleural abnormality. Normal size heart. Normal mediastinum and anthony. Normal visualized pulmonary arteries. Normal visualized aortic arch and descending thoracic aorta. Normal visualized thoracic spine. Normal visualized ribs, clavicles, and shoulders. There is no demonstrated abnormality of the visualized soft tissue structures of the upper abdomen. RAD/Chest 1 View (Portable) IMPRESSION: Interstitial disease probably chronic. No pulmonary edema, congestive heart failure or confluent pneumonia. Electronically Signed: Lanie Henry MD at 5:32 EDT , Service support ,
[2020-05-29 05:07] LABS: AST(SGOT) 19 U/L (15-37); Alanine Aminotransfer ALT/SGPT 22 U/L (16-61); Albumin, Serum 2.3 g/dL (3.2-5.0); Alkaline Phosphatase 111 U/L (45-117); Anion Gap 6 (5-15); BUN 13 mg/dL (7-18); BUN/Creat Ratio 10.1 RATIO (10-20); Bilirubin, Direct 0.26 mg/dL (0.00-0.30); Calcium,Total 8.5 mg/dL (8.5-10.1); Chloride 100 mmol/L (98-107); Creatinine, Serum 1.29 mg/dL (0.70-1.30); EST Glomerular Filtration Rate 61 mL/min (>60); Est Glom Filt Rate - Afr Amer 74 mL/min (>60); Estimated Creatinine Clearance 61.86 ml/min; Globulin 4.7 g/dL (2.2-4.2); Glucose 180 mg/dL (74-106); Sodium Level 133 mmol/L (136-145)
[2020-05-29] MEDS: Acetaminophen 500 MG Tablet 1000 MG PO (05:18)
[2020-05-29] MEDS: 0.9% Normal Saline 1,000 ML 150 ML IV (05:18)
[2020-05-29 06:22] LABS: Anisocytosis 1+; Differential Comment SCANNED; Hypochromasia RARE
[2020-05-29 06:33] VITALS: BP 133/59; PULSE 87; RESP 21; O2SAT 93
--- NOTE | 2020-05-29 07:25 | ED.VIS.GEN ---
History of Present Illness Chief Complaint: Fever Informant: Patient Onset: Yesterday Timing: Waxes and wanes Current Severity: Moderate Maximum Severity: Moderate Narrative: Patient presents secondary to fever. Patient was recently admitted here with symptomatic anemia requiring blood transfusion. He also has had recent surgery to the left groin/scrotum secondary to hidradenitis. On the of this month patient underwent an upper GI scope in [place]. On the evening of the patient developed fever up to 103.9 max at home. Patient's spoke with Dr. Smith, the surgeon who did his surgery. He recommended taking ibuprofen. When the temperature returned he presented to the emergency room for evaluation. Patient does have follow-up scheduled with Dr. Smith in the office tomorrow. - Past Medical History (1) Hypertension Status: Chronic (2) Hydradenitis Status: Chronic Comment: bilateral inguinal and left base of scrotum (3) Diabetes mellitus type 2, uncontrolled, with complications Status: Chronic Past Medical History - Allergies and Home Meds Allergies/Adverse Reactions: Allergies Penicillins Allergy (Verified 05/29/20 04:13) Unknown Sulfa (Sulfonamide Antibiotics) Allergy (Verified 05/29/20 04:13) Unknown bupropion [From Wellbutrin] Adverse Reaction (Severe, Verified 05/29/20 04:13) change in personality ,meanness and smoked more Primary Care Physician: Cortez Smith MD [STAFF PHYSICIAN] - Keep Dorothy appointment Prior records reviewed: Yes Lives: Spouse/ Significant Other Smoking Status: Current every day smoker Review of Systems General: Reports: Fever Eyes: Denies: Visual changes - bilaterally ENT: Denies: Bilateral ear pain Cardiovascular: Denies: Chest pain Respiratory: Denies: Dyspnea, Cough Gastrointestinal: Denies: Abdominal pain, Nausea, Vomiting, Diarrhea Skin: Reports: Wounds - Open wound noted to the lateral scrotum. Neurological: Denies: Headache Hematologic: Denies: Easy bruising, Easy bleeding Allergy: Denies: Uticaria Physical Exam Vital Signs/Narrative: Vital Signs Temp Pulse Resp BP Pulse Ox 05/29/20 06:33 87 21 H 133/59 H 93 05/29/20 04:10 102.7 F H 107 H 18 148/60 H 95 05/29/20 04:07 102.7 F H 107 H 18 148/60 H 95 Inital Vital Signs reviewed: Yes General: Well nourished, Well developed Head: Normocephalic Neck: Supple Cardiovascular: Regular rate, Regular rhythm Respiratory: No distress, CTA bilaterally Abdomen: Soft, Nontender : - - Open wounds noted on the left groin line/lateral to scrotum. Wound edges are clean with no significant drainage. No evidence of surrounding cellulitis. Neurological: Alert, Oriented x3 Psychological: Normal affect Diagnostic/Tx/Re-eval Chest X-Ray - ED: 1 View, Read by ED Physician, Chronic Changes, No Infiltrates Impressions Chest X-Ray 05/29/20 05:00 IMPRESSION: Interstitial disease probably chronic. No pulmonary edema, congestive heart failure or confluent pneumonia. Electronically Signed: Lanie Henry MD at 5:32 EDT , Service support , 05/29/20 05:00 Chest 1 View (Portable) [RAD] Stat 05/29/20 04:53 Nasal Secretion SARS-CoV-2 Antigen (Rapid) - Final Laboratory Results 05/29/20 05/29/20 04:22 04:22 WBC 13.3 H RBC 3.43 L Hgb 9.1 L Hct 30.5 L MCV 88.9 MCH 26.5 L MCHC 29.8 L RDW Std Deviation 63.9 H RDW Coeff of Dana 19.9 H Plt Count 333 MPV 9.3 Immature Gran % (Auto) 0.500 Neut % (Auto) 94.7 H Lymph % (Auto) 2.9 L Freestone % (Auto) 1.5 Eos % (Auto) 0.2 Baso % (Auto) 0.2 Absolute Neuts (auto) 12.6 H Absolute Lymphs (auto) 0.39 L Nucleated RBC % 0 Differential Comment SCANNED Hypochromasia RARE Anisocytosis 1+ Sodium 133 L Potassium 4.0 Chloride 100 Carbon Dioxide 27.0 Anion Gap 6 BUN 13 Creatinine 1.29 Estim Creat Clear Calc 61.86 Est GFR (MDRD) Af Amer 74 Est GFR (MDRD) Non-Af 61 BUN/Creatinine Ratio 10.1 Glucose 180 H Calcium 8.5 Total Bilirubin 0.50 Direct Bilirubin 0.26 AST 19 ALT 22 Alkaline Phosphatase 111 Total Protein 7.0 Albumin 2.3 L Globulin 4.7 H - Medical Decision Making Patient was given Tylenol here for fever. Covid swab is negative. Portable chest x-ray per my interpretation reveals no infiltrate. Radiologist interpretation is reviewed. White count is 13, improved from a white count of 15 a few days ago. Chemistry studies are largely unremarkable. Blood and wound cultures were obtained today. Wound culture from May 20 is reviewed. Patient at that time had Serratia marcescens and E. coli. These are sensitive to Cipro so patient is placed on Cipro. At the time of discharge repeat temperature is 99. He will follow-up with Dr. Smith tomorrow morning as scheduled. He is given return instructions. ED Disposition - Plan for ED Patient: Disposition: Home or Assisted Living Diagnosis: Fever Instructions: ED FUO Adult Prescriptions: Ciprofloxacin [Cipro] 500 mg PO BID #14 tab Transmission Status: Received by [facility]69 Referrals: Cortez Smith MD [STAFF PHYSICIAN] - Keep Dorothy appointment
[2020-05-29 07:36] VITALS: BP 115/84; PULSE 80; RESP 18; O2SAT 95
[2020-05-29] MEDS: Ciprofloxacin 500 MG Tablet PO (07:38)
== END 2020-05-29 07:47 | disposition home or self-care (01) ==
PROVIDERS: Emergency Provider Emergency Medicine; PCP Nurse Practitioner
DX: R50.9 Fever, unspecified (principal); F17.200 Nicotine dependence, unspecified, uncomplicated; I10 Essential (primary) hypertension; E11.9 Type 2 diabetes mellitus without complications; Z79.84 Long term (current) use of oral hypoglycemic drugs
CPT/HCPCS: 71045; 80048; 80076; 85025; 87040; 87070; 87077; 87186; 87205; 87426; 96360; 96361; 99285; J7030; A4216

== ENCOUNTER 2020-06-06 08:30 | Outpatient (RCR) | payer OTHER, SELFPAY ==
[2020-05-12 00:44] VITALS: BP 180/60; PULSE 103; RESP 18; TEMP 36.6
[2020-05-16 08:46] VITALS: BP 148/47; PULSE 102; RESP 18; TEMP 37.2; BMI 24.5
--- NOTE | 2020-05-16 11:13 | PCM.WC.PN ---
(1) Ulcer of left groin with fat layer exposed Status: Chronic Code(s): L98.492 - Non-pressure chronic ulcer of skin of other sites with fat layer exposed (2) Hydradenitis Status: Chronic Code(s): L73.2 - Hidradenitis suppurativa Comment: bilateral inguinal and left base of scrotum (3) Diabetes mellitus type 2, uncontrolled, with complications Status: Chronic Code(s): E11.8 - Type 2 diabetes mellitus with unspecified complications; E11.65 - Type 2 diabetes mellitus with hyperglycemia (4) Tobacco dependence syndrome Status: Chronic Code(s): F17.200 - Nicotine dependence, unspecified, uncomplicated Type of Wound Date of Service: 05/16/20 Chief Complaint: Open surgical hidradenitis wound left inguinal, perineal, and base of scrotum. History of Wound: Surgery 03/22/20 - 1. Surgical preparation left inguinal area with excision hidradenitis (315 cm2 total wound). 2. Surgical preparation perineal area with excision hidradenitis (315 cm2 total wound). 3. Surgical preparation base left scrotum with incision and drainage and excision hidradenitis (315 cm2 total wound). Wound care - Dakin's dressing changes daily, silver packed into the tunnel at 6:00, covered with gauze or ABD. Operative culture - Enterococcus faecalis and Streptococcus group F, Anaerobic cocci and Prevotella bivia. Taking Linezolid and completed Flagyl. Pathology - hidradenitis. Prealbumin from 03/23/20 was 8.2. Encourage nutritional supplementation with protein to help the healing process. HgbA1c from 03/11/20 was 8.8. Today he is complaining about left leg and foot swelling with some calf tenderness. Ultrasound of his his left lower extremity ordered and done 04/15/2020. It showed there was no evidence of left lower extremity deep vein thrombosis. Valves are competent and compressible. He will wear Tubigrip for compression. Instructed him to keep legs elevated when sitting. Instructed him to avoid standing for long periods of time. Today he denies fever. His appetite has not been good. Encouraged protein supplementation. Progress of Wound: Improved. Wound bed is a nice beefy pink color. - Physical Exam Vital Signs Temp Pulse Resp BP 98.9 F 102 H 18 148/47 H 05/16/20 08:46 05/16/20 08:46 05/16/20 08:46 05/16/20 08:46 General: Alert, Oriented x3, Cooperative HEENT: Atraumatic Oral: Moist Mucosa Lungs: Normal air movement Cardiovascular: Regular rate Extremities: Capillary Refill Less than 3 Seconds, Edema - Bilateral lower extremities. Skin: Ulcer/ Wound - Left groin ulcer is beefy pink, there is tunneling at 6:00. He has a hidradenitis flare in his right groin and scrotum, draining thick white drainage. Wound Measurements and Assessment WC - Nurse 1 - General Ulcer Measurement Start: 05/16/20 08:46 Freq: Status: Active Protocol: Activity Type Activity Date Activity User E-Sign Co-Sign Detail Recorded Client Recorded Date Recorded By Document 05/16/20 08:46 [facility] [id number] 05/16/20 08:54 [facility] 05/16/20 08:46 Wound Center Nurse 1 [Ulcer Assessment] #1- L GROIN/BUTTOCK POST OP -Combined with other wound No -Current Size (cm) - Length 13.5 -Current Size (cm) - Width 8 -Current Size (cm) - Depth 0.7 -Total Square Cm 108.0 -Photo Taken No -Epithelialization Small 1-33% -Tunneling Yes -Tunneling Position (O'clock) 6 -Tunneling Distance (cm) 1.5 -Undermining/Tunneling No -Circular Undermining No -Exudate Amt Medium -Exudate Type Serosanguineous -Wound Margin Distinct, Outline Attached -Granulation Amt Large (67-100%) -Granulation Quality Red -Slough/Fibrin Yes -Necrosis Amt Small (1-33%) -Necrotic Tissue Type Adherent Slough -Texture (Abimbola-wound Skin Appearance) Assessed, Scarring -Moisture ([place]imbola-wound Skin Appearance Assessed ) -Color ([place]imbola-wound Skin Appearance) Assessed -Temperature ([place]imbola-wound Skin No Abnormality Appearance) (Pt Warm) -Tenderness on Palpation ([place]imbola-wound No Skin Appearance) -Ulcer Cleansing SOAPY WATER -Foul Odor after Cleansing No -Anesthetic Used 4% Lidocaine Solution WC - Nurse 2 - General Ulcer CM Notes Start: 05/16/20 08:46 Freq: Status: Active Protocol: Activity Type Activity Date Activity User E-Sign Co-Sign Detail Recorded Client Recorded Date Recorded By Document 05/16/20 09:18 LIZETTE [id number] 05/16/20 09:28 LIZETTE 05/16/20 09:18 Wound Center Nurse 2 [Procedure/Treatment] -Time 09:18 -Correct Patient Yes -Correct Side, Site, Position Yes -Correct Procedure Yes -Procedure Performed Yes -Type of Procedure Debridement -Clinical Debridement Subcutaneous -Tissue Removed Subcutaneous -Post Debridement (cm) - Length 14.8 -Post Debridement (cm) - Width 8.5 -Post Debridement (cm) - Depth 0.4 -Total Square (Post) (cm) 125.80 -Area of Debridement (cm) - Length 14.8 -Area of Debridement (cm) - Width 8.5 -Total Square (Area) (cm) 125.80 -Tunneling Yes -Tunneling Position (O'clock) 6 -Tunneling Distance (cm) 4.6 -Undermining/Tunneling No -Circular Undermining No -Wound/Ulcer Outcome Not Healed -Ulcer Cleansing Rinsed/ Irrigated with Saline -Foul Odor after Cleansing No -Bioengineered Tissue No -Bleeding Controlled with Pressure,Silver Nitrate -Offloading No -Treatment Response Procedure Tolerated Well -Debridement - Subq, 1st 20sq cm Yes -Debridement, SubQ, ea addt'l 20sq cm 6 or part thereof [See Physician Procedure note for Specifics] Pain Scale: 0-10 Numeric [Pain] -Is Patient Pain Free? Yes - Nurse 3 - General Ulcer D/C NN Start: 05/16/20 08:46 Freq: Status: Active Protocol: Activity Type Activity Date Activity User E-Sign Co-Sign Detail Recorded Client Recorded Date Recorded By Document 05/16/20 09:36 BREANNA [id number] 05/16/20 09:37 DL 05/16/20 09:36 Wound Care Nurse 3 [Wound Dressing] #1- L GROIN/BUTTOCK POST OP -Ulcer Cleansing Rinsed/ Irrigated with Saline -Foul Odor after Cleansing No -Primary Dressing Applied Aquacel AG 4x4 -Primary Dressing Covered/Secured Dry Gauze, with Secured with Tape -Other Covering moist gauze -Aquacel AG 4x4 1 [Post Procedure Tolerated] -Treatment Response Procedure Tolerated Well Pain Scale: 0-10 Numeric [Pain] -Is Patient Pain Free? Yes - Visit Discharge [Visit Discharge Information] -Discharge Condition Stable -Ambulatory Status Ambulatory -Transportation Private Auto [Facility Notification] -Facility Type Home Health -Telephoned (if yes, spoke with:) Yes Musculoskeletal: No Tenderness to Palpation of Joints or Extremities Neurological: Cranial nerves II-XII grossly intact Psych/Mental Status: Normal Affect, Appropriate Debridement Note Post-Debridement Measurements/Treatment WC - Nurse 2 - General Ulcer CM Notes Start: 05/16/20 08:46 Freq: Status: Active Protocol: Activity Type Activity Date Activity User E-Sign Co-Sign Detail Recorded Client Recorded Date Recorded By Document 05/16/20 09:18 LIZETTE [id number] 05/16/20 09:28 LIZETTE 05/16/20 09:18 Wound Center Nurse 2 #1- L GROIN/BUTTOCK POST OP -Time 09:18 -Correct Patient Yes -Correct Side, Site, Position Yes -Correct Procedure Yes -Procedure Performed Yes -Type of Procedure Debridement -Clinical Debridement Subcutaneous -Tissue Removed Subcutaneous -Post Debridement (cm) - Length 14.8 -Post Debridement (cm) - Width 8.5 -Post Debridement (cm) - Depth 0.4 -Total Square (Post) (cm) 125.80 -Area of Debridement (cm) - Length 14.8 -Area of Debridement (cm) - Width 8.5 -Total Square (Area) (cm) 125.80 -Tunneling Yes -Tunneling Position (O'clock) 6 -Tunneling Distance (cm) 4.6 -Undermining/Tunneling No -Circular Undermining No -Wound/Ulcer Outcome Not Healed -Ulcer Cleansing Rinsed/ Irrigated with Saline -Foul Odor after Cleansing No -Bioengineered Tissue No -Bleeding Controlled with Pressure,Silver Nitrate -Offloading No -Treatment Response Procedure Tolerated Well -Debridement - Subq, 1st 20sq cm Yes -Debridement, SubQ, ea addt'l 20sq cm 6 or part thereof Pain Scale: 0-10 Numeric Is Patient Pain Free? Yes WC - Nurse 3 - General Ulcer D/C NN Start: 05/16/20 08:46 Freq: Status: Active Protocol: Activity Type Activity Date Activity User E-Sign Co-Sign Detail Recorded Client Recorded Date Recorded By Document 05/16/20 09:36 DL [id number] 05/16/20 09:37 DL 05/16/20 09:36 Wound Care Nurse 3 #1- L GROIN/BUTTOCK POST OP -Ulcer Cleansing Rinsed/ Irrigated with Saline -Foul Odor after Cleansing No -Primary Dressing Applied Aquacel AG 4x4 -Primary Dressing Covered/Secured with Dry Gauze, Secured with Tape -Other Covering moist gauze -Aquacel AG 4x4 1 Treatment Response Procedure Tolerated Well Pain Scale: 0-10 Numeric Is Patient Pain Free? Yes WC - Visit Discharge Discharge Condition Stable Ambulatory Status Ambulatory Transportation Private Auto Facility Type Home Health Telephoned (if yes, spoke with:) Yes Wound debrided: Groin ulcer Laterality: Left Type of Debridement: Excisional debridement Anesthesia Used: 5% Lidocaine Gel Depth: Down to and including healthy tissue, in the subcutaneous layer Percentage of wound debrided: 100 Instrument Used: 5mm curette Tissue Removed: Subcutaneous tissue and slough Severity: Fat Layer Exposed Amount of bleeding with debridement: Moderate Bleeding Controlled with: Compression and gauze, Silver Nitrate - Silver nitrate and compression used into the the tunnel area at 6:00. Patient tolerated procedure well Assessment/Plan Assessment: 1. Extensive hidradenitis bilateral inguinal and perineal areas with extension to base of scrotum. 2. Extensive hidradenitis bilateral perianal areas. 3. Smoker. 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 5. Diabetes mellitus. 6. s/p surgical preparation left inguinal area with excision hidradenitis (315 cm2 total wound) and surgical preparation perineal area with excision hidradenitis (315 cm2 total wound) and surgical preparation base left scrotum with incision and drainage and excision hidradenitis (315 cm2 total wound). Plan: Today with the debridement of his ulcer, he had increased bleeding from the tunneled area that required compression and silver nitrate before it stopped bleeding. The patient tolerated it well. Wound care - continue Dakin's dressing changes daily to the left groin ulcer. At the tunneling at 6 o'clock, will place silver in that area. Instructed his to make sure that she is getting the silver into the base of the tunnel. Double Tubigrip's to bilateral lower extremities for compression. Ultrasound of his his left lower extremity ordered and done on 04/15/2020. It showed there was no evidence of left lower extremity deep vein thrombosis. Valves are competent and compressible. He will wear Tubigrip for compression. Instructed him to keep legs elevated when sitting. Instructed him to avoid standing for long periods of time. Operative culture shows Enterococcus faecalis and Streptococcus group F, Anaerobic cocci and Prevotella bivia. He stopped the Clindamycin and is now taking Linezolid and has completed the Flagyl for the anaerobes. Prealbumin from 03/23/20 was 8.2. Encourage nutritional supplementation with protein to help the healing process. Discussed this at length with both the patient and his . He has been drinking Boost. HgbA1c from 03/11/20 was 8.8. If a skin graft is needed in the future, his HgbA1c needs to be less than 8. He continues to have increased pain of his ulcer area. Renewed Percocet (14). PDMP reviewed. Followup one week. [id number]: [id number] Global Visit
[2020-05-30 08:35] VITALS: BP 130/45; PULSE 85; RESP 18; TEMP 35.5; BMI 24.5
--- NOTE | 2020-05-30 11:33 | PCM.WC.PN ---
(1) Ulcer of left groin with fat layer exposed Status: Chronic Code(s): L98.492 - Non-pressure chronic ulcer of skin of other sites with fat layer exposed (2) Hydradenitis Status: Chronic Code(s): L73.2 - Hidradenitis suppurativa Comment: bilateral inguinal and left base of scrotum (3) Diabetes mellitus type 2, uncontrolled, with complications Status: Chronic Code(s): E11.8 - Type 2 diabetes mellitus with unspecified complications; E11.65 - Type 2 diabetes mellitus with hyperglycemia (4) Tobacco dependence syndrome Status: Chronic Code(s): F17.200 - Nicotine dependence, unspecified, uncomplicated Type of Wound Date of Service: 05/30/20 Chief Complaint: Open surgical hidradenitis wound left inguinal, perineal, and base of scrotum. History of Wound: Surgery 03/22/20 - 1. Surgical preparation left inguinal area with excision hidradenitis (315 cm2 total wound). 2. Surgical preparation perineal area with excision hidradenitis (315 cm2 total wound). 3. Surgical preparation base left scrotum with incision and drainage and excision hidradenitis (315 cm2 total wound). Wound care - Dakin's dressing changes daily, silver packed into the tunnel at 6:00, covered with gauze or ABD. Wound culture 05/20/20- Serratia marcenscens, Escherichia coli, Streptococcus group F, Anaerobic cocci, Prevotella disiens. He was started on Cipro 2 days ago but he states he doesn't like how it makes him feel. Will start him on Levaquin and Flagyl. When he completes the Flagyl, we will start him on erythromycin to treat the Streptococcus group F. Operative culture - Enterococcus faecalis and Streptococcus group F, Anaerobic cocci and Prevotella bivia. Taking Linezolid and completed Flagyl. Pathology - hidradenitis. Prealbumin from 03/23/20 was 8.2. Encourage nutritional supplementation with protein to help the healing process. HgbA1c from 03/11/20 was 8.8. Today he is complaining about left leg and foot swelling with some calf tenderness. Ultrasound of his his left lower extremity ordered and done 04/15/2020. It showed there was no evidence of left lower extremity deep vein thrombosis. Valves are competent and compressible. He will wear Tubigrip for compression. Instructed him to keep legs elevated when sitting. Instructed him to avoid standing for long periods of time. Today he denies fever. His appetite has not been good. Encouraged protein supplementation. Progress of Wound: Improved. Wound bed is a nice beefy pink color. - Physical Exam Vital Signs Temp Pulse Resp BP 96 F L 85 18 130/45 H 05/30/20 08:35 05/30/20 08:35 05/30/20 08:35 05/30/20 08:35 General: Alert, Oriented x3, Cooperative HEENT: Atraumatic Oral: Moist Mucosa Lungs: Normal air movement Cardiovascular: Regular rate Abdomen: Distended Extremities: Capillary Refill Less than 3 Seconds Skin: Ulcer/ Wound - Left groin ulcer is beefy pink, there is tunneling at 6 o'clock, which is smaller than previous visit. Right groin has several areas of hidradenitis which are draining white, milky area. Wound Measurements and Assessment WC - Nurse 1 - General Ulcer Measurement Start: 05/16/20 08:46 Freq: Status: Active Protocol: Activity Type Activity Date Activity User E-Sign Co-Sign Detail Recorded Client Recorded Date Recorded By Document 05/30/20 08:35 [facility] [id number] 05/30/20 08:44 [facility] 05/30/20 08:35 Wound Center Nurse 1 [Ulcer Assessment] #1- L GROIN/BUTTOCK POST OP -Combined with other wound No -Current Size (cm) - Length 13.3 -Current Size (cm) - Width 6.5 -Current Size (cm) - Depth 0.1 -Total Square Cm 86.45 -Photo Taken No -Epithelialization Small 1-33% -Tunneling Yes -Tunneling Position (O'clock) 6 -Tunneling Distance (cm) 1.5 -Undermining/Tunneling No -Circular Undermining No -Wound Margin Distinct, Outline Attached -Granulation Amt Large (67-100%) -Granulation Quality Red -Slough/Fibrin Yes -Necrosis Amt Small (1-33%) -Necrotic Tissue Type Adherent Slough -Texture ([place]imbola-wound Skin Appearance) Assessed, Scarring -Moisture ([place]-wound Skin Appearance Assessed ) -Color ([place]-wound Skin Appearance) Assessed -Temperature ([place]-wound Skin No Abnormality Appearance) (Pt Warm) -Tenderness on Palpation ([place]-wound Yes Skin Appearance) -Ulcer Cleansing soapy water -Foul Odor after Cleansing No -Anesthetic Used 4% Lidocaine Solution BEKA - Nurse 2 - General Ulcer CM Notes Start: 05/16/20 08:46 Freq: Status: Active Protocol: Activity Type Activity Date Activity User E-Sign Co-Sign Detail Recorded Client Recorded Date Recorded By Document 05/30/20 08:56 [id number] 05/30/20 09:05 05/30/20 08:56 Wound Center Nurse 2 [Procedure/Treatment] -Time 08:56 -Correct Patient Yes -Correct Side, Site, Position Yes -Correct Procedure Yes -Procedure Performed Yes -Type of Procedure Debridement -Clinical Debridement Subcutaneous -Tissue Removed Subcutaneous -Post Debridement (cm) - Length 12.3 -Post Debridement (cm) - Width 6.5 -Post Debridement (cm) - Depth 0.3 -Total Square (Post) (cm) 79.95 -Area of Debridement (cm) - Length 12.3 -Area of Debridement (cm) - Width 6.5 -Total Square (Area) (cm) 79.95 -Tunneling Yes -Tunneling Position (O'clock) 6 -Tunneling Distance (cm) 2 -Undermining/Tunneling No -Circular Undermining No -Wound/Ulcer Outcome Not Healed -Ulcer Cleansing Rinsed/ Irrigated with Saline -Foul Odor after Cleansing No -Bioengineered Tissue No -Bleeding Controlled with Pressure -Offloading No -Treatment Response Procedure Tolerated Well -Debridement - Subq, 1st 20sq cm Yes -Debridement, SubQ, ea addt'l 20sq cm 3 or part thereof [See Physician Procedure note for Specifics] Pain Scale: 0-10 Numeric [Pain] -Is Patient Pain Free? Yes BEKA - Nurse 3 - General Ulcer D/C NN Start: 05/16/20 08:46 Freq: Status: Active Protocol: Activity Type Activity Date Activity User E-Sign Co-Sign Detail Recorded Client Recorded Date Recorded By Document 05/30/20 09:09 DL [id number] 05/30/20 09:12 DL 05/30/20 09:09 Wound Care Nurse 3 [Wound Dressing] #1- L GROIN/BUTTOCK POST OP -Ulcer Cleansing Rinsed/ Irrigated with Saline -Foul Odor after Cleansing No -Primary Dressing Applied Aquacel AG 4x4, Other -Other Dressing saline moistened gauze , ag to tunneled area -Primary Dressing Covered/Secured Secured with with Tape,Other -Other Covering abd -Aquacel AG 4x4 1 [Post Procedure Tolerated] -Treatment Response Procedure Tolerated Well Pain Scale: 0-10 Numeric [Pain] -Is Patient Pain Free? Yes WC - Visit Discharge [Visit Discharge Information] -Discharge Condition Stable -Ambulatory Status Ambulatory -Transportation Private Auto -Accompanied by [Facility Notification] -Facility Type Home Health Musculoskeletal: No Tenderness to Palpation of Joints or Extremities Neurological: Cranial nerves II-XII grossly intact Psych/Mental Status: Normal Affect, Appropriate Debridement Note Post-Debridement Measurements/Treatment WC - Nurse 2 - General Ulcer CM Notes Start: 05/16/20 08:46 Freq: Status: Active Protocol: Activity Type Activity Date Activity User E-Sign Co-Sign Detail Recorded Client Recorded Date Recorded By Document 05/16/20 09:18 [id number] 05/16/20 09:28 Document 05/30/20 08:56 [id number] 05/30/20 09:05 05/16/20 05/30/20 09:18 08:56 Wound Center Nurse 2 #1- L GROIN/BUTTOCK POST OP -Time 09:18 08:56 -Correct Patient Yes Yes -Correct Side, Site, Position Yes Yes -Correct Procedure Yes Yes -Procedure Performed Yes Yes -Type of Procedure Debridement Debridement -Clinical Debridement Subcutaneous Subcutaneous -Tissue Removed Subcutaneous Subcutaneous -Post Debridement (cm) - Length 14.8 12.3 -Post Debridement (cm) - Width 8.5 6.5 -Post Debridement (cm) - Depth 0.4 0.3 -Total Square (Post) (cm) 125.80 79.95 -Area of Debridement (cm) - Length 14.8 12.3 -Area of Debridement (cm) - Width 8.5 6.5 -Total Square (Area) (cm) 125.80 79.95 -Tunneling Yes Yes -Tunneling Position (O'clock) 6 6 -Tunneling Distance (cm) 4.6 2 -Undermining/Tunneling No No -Circular Undermining No No -Wound/Ulcer Outcome Not Healed Not Healed -Ulcer Cleansing Rinsed/ Rinsed/ Irrigated with Irrigated with Saline Saline -Foul Odor after Cleansing No No -Bioengineered Tissue No No -Bleeding Controlled with Pressure,Silver Pressure Nitrate -Offloading No No -Treatment Response Procedure Procedure Tolerated Well Tolerated Well -Debridement - Subq, 1st 20sq cm Yes Yes -Debridement, SubQ, ea addt'l 20sq cm 6 3 or part thereof Pain Scale: 0-10 Numeric Is Patient Pain Free? Yes Yes - Nurse 3 - General Ulcer D/C NN Start: 05/16/20 08:46 Freq: Status: Active Protocol: Activity Type Activity Date Activity User E-Sign Co-Sign Detail Recorded Client Recorded Date Recorded By Document 05/16/20 09:36 DL [id number] 05/16/20 09:37 DL Document 05/30/20 09:09 DL [id number] 05/30/20 09:12 DL 05/16/20 05/30/20 09:36 09:09 Wound Care Nurse 3 #1- L GROIN/BUTTOCK POST OP -Ulcer Cleansing Rinsed/ Rinsed/ Irrigated with Irrigated with Saline Saline -Foul Odor after Cleansing No No -Primary Dressing Applied Aquacel AG 4x4 Aquacel AG 4x4, Other -Other Dressing saline moistened gauze , ag to tunneled area -Primary Dressing Covered/Secured with Dry Gauze, Secured with Secured with Tape,Other Tape -Other Covering moist gauze abd -Aquacel AG 4x4 1 1 Treatment Response Procedure Procedure Tolerated Well Tolerated Well Pain Scale: 0-10 Numeric Is Patient Pain Free? Yes Yes - Visit Discharge Discharge Condition Stable Stable Ambulatory Status Ambulatory Ambulatory Transportation Private Auto Private Auto Accompanied by Facility Type Home Health Home Health Telephoned (if yes, spoke with:) Yes Wound debrided: Groin ulcer Laterality: Left Type of Debridement: Excisional debridement Anesthesia Used: 5% Lidocaine Gel Depth: Down to and including healthy tissue, in the subcutaneous layer Percentage of wound debrided: 100 Instrument Used: 7mm curette Tissue Removed: Subcutaneous tissue and slough Severity: Fat Layer Exposed Amount of bleeding with debridement: Mild Bleeding Controlled with: Pressure, Compression and gauze Patient tolerated procedure well Assessment/Plan Active Problems (Last Reviewed 05/19/20 @ 13:24 by Adina Bhat [employer]LECT[employer]ICAL TRANSMISSION ENGINEER, ELECTRICAL TRANSMISSION ENGINEER-C) Ulcer of left groin with fat layer exposed (Chronic) Tobacco dependence syndrome (Chronic) Hydradenitis (Chronic) bilateral inguinal and left base of scrotum Diabetes mellitus type 2, uncontrolled, with complications (Chronic) Assessment: 1. Extensive hidradenitis bilateral inguinal and perineal areas with extension to base of scrotum. 2. Extensive hidradenitis bilateral perianal areas. 3. Smoker. 4. On snf use of Remicade. 5. Diabetes mellitus. 6. s/p surgical preparation left inguinal area with excision hidradenitis (315 cm2 total wound) and surgical preparation perineal area with excision hidradenitis (315 cm2 total wound) and surgical preparation base left scrotum with incision and drainage and excision hidradenitis (315 cm2 total wound). Plan: Today with the debridement. Wound care - continue Dakin's dressing changes daily to the left groin ulcer. At the tunneling at 6 o'clock, will place silver in that area. Instructed his to make sure that she is getting the silver into the base of the tunnel. Double Tubigrip's to bilateral lower extremities for compression. Wound culture 05/20/20- Serratia marcenscens, Escherichia coli, Streptococcus group F, Anaerobic cocci, Prevotella disiens. He was started on Cipro 2 days ago but he states he doesn't like how it makes him feel. Will start him on Levaquin and Flagyl. When he completes the Flagyl, will start him on Erythromycin for the Streptococcus group F. Ultrasound of his his left lower extremity ordered and done on 04/15/2020. It showed there was no evidence of left lower extremity deep vein thrombosis. Valves are competent and compressible. He will wear Tubigrip for compression. Instructed him to keep legs elevated when sitting. Instructed him to avoid standing for long periods of time. Operative culture shows Enterococcus faecalis and Streptococcus group F, Anaerobic cocci and Prevotella bivia. He stopped the Clindamycin and is now taking Linezolid and has completed the Flagyl for the anaerobes. Prealbumin from 03/23/20 was 8.2. Encourage nutritional supplementation with protein to help the healing process. Discussed this at length with both the patient and his . He has been drinking Boost. HgbA1c from 03/11/20 was 8.8. If a skin graft is needed in the future, his HgbA1c needs to be less than 8. He continues to have increased pain of his ulcer area. Renewed Percocet (14). PDMP reviewed. Followup one week. [id number]: [id number] Global Visit
[2020-06-06 08:39] VITALS: BP 137/49; PULSE 89; RESP 18; TEMP 37.1; BMI 24.5
--- NOTE | 2020-06-06 11:36 | PN.PCM_ITS ---
(1) Ulcer of left groin with fat layer exposed Status: Chronic Code(s): L98.492 - Non-pressure chronic ulcer of skin of other sites with fat layer exposed (2) Hydradenitis Status: Chronic Code(s): L73.2 - Hidradenitis suppurativa Comment: bilateral inguinal and left base of scrotum (3) Diabetes mellitus type 2, uncontrolled, with complications Status: Chronic Code(s): E11.8 - Type 2 diabetes mellitus with unspecified complications; E11.65 - Type 2 diabetes mellitus with hyperglycemia (4) Tobacco dependence syndrome Status: Chronic Code(s): F17.200 - Nicotine dependence, unspecified, uncomplicated Type of Wound Date of Service: 06/06/20 Chief Complaint: Open surgical hidradenitis wound left inguinal, perineal, and base of scrotum. History of Wound: Surgery 03/22/20 - 1. Surgical preparation left inguinal area with excision hidradenitis (315 cm2 total wound). 2. Surgical preparation perineal area with excision hidradenitis (315 cm2 total wound). 3. Surgical preparation base left scrotum with incision and drainage and excision hidradenitis (315 cm2 total wound). Wound care - Dakin's dressing changes daily, silver packed into the tunnel at 6:00, covered with gauze or ABD. Wound culture 05/20/20- Serratia marcenscens, Escherichia coli, Streptococcus group F, Anaerobic cocci, Prevotella disiens. He was started on Cipro 2 days ago but he states he doesn't like how it makes him feel. Will start him on Levaquin and Flagyl. When he completes the Flagyl, we will start him on erythromycin to treat the Streptococcus group F. Operative culture - Enterococcus faecalis and Stre ptococcus group F, Anaerobic cocci and Prevotella bivia. Taking Linezolid and completed Flagyl. Pathology - hidradenitis. Prealbumin from 03/23/20 was 8.2. Encourage nutritional supplementation with protein to help the healing process. HgbA1c from 03/11/20 was 8.8. Today he is complaining about left leg and foot swelling with some calf tenderness. Ultrasound of his his left lower extremity ordered and done 04/15/2020. It showed there was no evidence of left lower extremity deep vein thrombosis. Valves are competent and compressible. He will wear Tubigrip for compression. Instructed him to keep legs elevated when sitting. Instructed him to avoid standing for long periods of time. Today he denies fever. His appetite has not been good. Encouraged protein supplementation. Progress of Wound: Improved. Wound bed is a nice beefy pink color. - Physical Exam Vital Signs Temp Pulse Resp BP 98.8 F 89 18 137/49 H 06/06/20 08:39 06/06/20 08:39 06/06/20 08:39 06/06/20 08:39 Wound Measurements and Assessment - Nurse 1 - General Ulcer Measurement Start: 05/16/20 08:46 Freq: Status: Active Protocol: Activity Type Activity Date Activity User E-Sign Co-Sign Detail Recorded Client Recorded Date Recorded By Document 06/06/20 08:39 DL [id number] 06/06/20 08:47 DL 06/06/20 08:39 Wound Center Nurse 1 [Ulcer Assessment] #1- L GROIN/BUTTOCK POST OP -Current Size (cm) - Length 11.7 -Current Size (cm) - Width 5.4 -Current Size (cm) - Depth 0.6 -Total Square Cm 63.18 -Photo Taken No -Undermining/Tunneling Starts (O' 5 clock) -Undermining/Tunneling Ends (O'clock) 6 -Maximum Distance (cm) 3.8 -Exudate Amt Medium -Exudate Type Serosanguineous -Wound Margin Thickened & Rolled Under -Granulation Amt Medium (34-66%) -Granulation Quality Red -Necrosis Amt Small (1-33%) -Necrotic Tissue Type Adherent Slough -Structure Exposed N/A -Texture (Abimbola-wound Skin Appearance) Scarring -Moisture ([place]imbola-wound Skin Appearance No Abnormality ) -Color ([place]imbola-wound Skin Appearance) No Abnormality -Temperature ([place]imbola-wound Skin No Abnormality Appearance) (Pt Warm) -Tenderness on Palpation ([place]imbola-wound No Skin Appearance) -Ulcer Cleansing Wound Cleanser -Foul Odor after Cleansing No -Anesthetic Used 4% Lidocaine Solution - Nurse 2 - General Ulcer CM Notes Start: 05/16/20 08:46 Freq: Status: Active Protocol: Activity Type Activity Date Activity User E-Sign Co-Sign Detail Recorded Client Recorded Date Recorded By Document 06/06/20 09:09 LIZETTE [id number] 06/06/20 09:13 JF 06/06/20 09:09 Wound Center Nurse 2 [Procedure/Treatment] -Time 09:10 -Correct Patient Yes -Correct Side, Site, Position Yes -Correct Procedure Yes -Procedure Performed Yes -Type of Procedure Debridement -Clinical Debridement Subcutaneous -Tissue Removed Subcutaneous -Post Debridement (cm) - Length 13 -Post Debridement (cm) - Width 5.4 -Post Debridement (cm) - Depth 0.2 -Total Square (Post) (cm) 70.2 -Area of Debridement (cm) - Length 13 -Area of Debridement (cm) - Width 5.4 -Total Square (Area) (cm) 70.2 -Tunneling Yes -Tunneling Position (O'clock) 6 -Tunneling Distance (cm) 1 -Undermining/Tunneling No -Circular Undermining No -Wound/Ulcer Outcome Not Healed -Ulcer Cleansing Rinsed/ Irrigated with Saline -Foul Odor after Cleansing No -Bioengineered Tissue No -Bleeding Controlled with Pressure -Offloading No -Treatment Response Procedure Tolerated Well -Debridement - Subq, 1st 20sq cm Yes -Debridement, SubQ, ea addt'l 20sq cm 3 or part thereof [See Physician Procedure note for Specifics] Pain Scale: 0-10 Numeric [Pain] -Is Patient Pain Free? Yes - Nurse 3 - General Ulcer D/C NN Start: 05/16/20 08:46 Freq: Status: Active Protocol: Activity Type Activity Date Activity User E-Sign Co-Sign Detail Recorded Client Recorded Date Recorded By Document 06/06/20 09:25 [facility] [id number] 06/06/20 09:26 [facility] 06/06/20 09:25 Wound Care Nurse 3 [Wound Dressing] #1- L GROIN/BUTTOCK POST OP -Ulcer Cleansing Rinsed/ Irrigated with Saline -Foul Odor after Cleansing No -Primary Dressing Applied Aquacel AG 4x4, Other -Other Dressing moist to dry, aquacel to undermined area -Primary Dressing Covered/Secured Secured with with Tape,Other -Other Covering abd -Aquacel AG 4x4 1 [Post Procedure Tolerated] -Treatment Response Procedure Tolerated Well Pain Scale: 0-10 Numeric [Pain] -Is Patient Pain Free? Yes WC - Visit Discharge [Visit Discharge Information] -Discharge Condition Stable -Ambulatory Status Ambulatory -Transportation Private Auto -Accompanied by Debridement Note Post-Debridement Measurements/Treatment - Nurse 2 - General Ulcer CM Notes Start: 05/16/20 08:46 Freq: Status: Active Protocol: Activity Type Activity Date Activity User E-Sign Co-Sign Detail Recorded Client Recorded Date Recorded By Document 05/16/20 09:18 LIZETTE [id number] 05/16/20 09:28 JF Document 05/30/20 08:56 JF [id number] 05/30/20 09:05 JF Document 06/06/20 09:09 JF [id number] 06/06/20 09:13 JF 05/16/20 05/30/20 06/06/20 09:18 08:56 09:09 Wound Center Nurse 2 #1- L GROIN/BUTTOCK POST OP -Time 09:18 08:56 09:10 -Correct Patient Yes Yes Yes -Correct Side, Site, Position Yes Yes Yes -Correct Procedure Yes Yes Yes -Procedure Performed Yes Yes Yes -Type of Procedure Debridement Debridement Debridement -Clinical Debridement Subcutaneous Subcutaneous Subcutaneous -Tissue Removed Subcutaneous Subcutaneous Subcutaneous -Post Debridement (cm) - Length 14.8 12.3 13 -Post Debridement (cm) - Width 8.5 6.5 5.4 -Post Debridement (cm) - Depth 0.4 0.3 0.2 -Total Square (Post) (cm) 125.80 79.95 70.2 -Area of Debridement (cm) - Length 14.8 12.3 13 -Area of Debridement (cm) - Width 8.5 6.5 5.4 -Total Square (Area) (cm) 125.80 79.95 70.2 -Tunneling Yes Yes Yes -Tunneling Position (O'clock) 6 6 6 -Tunneling Distance (cm) 4.6 2 1 -Undermining/Tunneling No No No -Circular Undermining No No No -Wound/Ulcer Outcome Not Healed Not Healed Not Healed -Ulcer Cleansing Rinsed/ Rinsed/ Rinsed/ Irrigated with Irrigated with Irrigated with Saline Saline Saline -Foul Odor after Cleansing No No No -Bioengineered Tissue No No No -Bleeding Controlled with Pressure,Silver Pressure Pressure Nitrate -Offloading No No No -Treatment Response Procedure Procedure Procedure Tolerated Well Tolerated Well Tolerated Well -Debridement - Subq, 1st 20sq cm Yes Yes Yes -Debridement, SubQ, ea addt'l 20sq cm 6 3 3 or part thereof Pain Scale: 0-10 Numeric Is Patient Pain Free? Yes Yes Yes - Nurse 3 - General Ulcer D/C NN Start: 05/16/20 08:46 Freq: Status: Active Protocol: Activity Type Activity Date Activity User E-Sign Co-Sign Detail Recorded Client Recorded Date Recorded By Document 05/16/20 09:36 DL [id number] 05/16/20 09:37 DL Document 05/30/20 09:09 DL [id number] 05/30/20 09:12 DL Document 06/06/20 09:25 [facility] [id number] 06/06/20 09:26 BM 05/16/20 05/30/20 06/06/20 09:36 09:09 09:25 Wound Care Nurse 3 #1- L GROIN/BUTTOCK POST OP -Ulcer Cleansing Rinsed/ Rinsed/ Rinsed/ Irrigated with Irrigated with Irrigated with Saline Saline Saline -Foul Odor after Cleansing No No No -Primary Dressing Applied Aquacel AG 4x4 Aquacel AG 4x4, Aquacel AG 4x4, Other Other -Other Dressing saline moist to dry, moistened gauze aquacel to , ag to undermined area tunneled area -Primary Dressing Covered/Secured with Dry Gauze, Secured with Secured with Secured with Tape,Other Tape,Other Tape -Other Covering moist gauze abd abd -Aquacel AG 4x4 1 1 1 Treatment Response Procedure Procedure Procedure Tolerated Well Tolerated Well Tolerated Well Pain Scale: 0-10 Numeric Is Patient Pain Free? Yes Yes Yes - Visit Discharge Discharge Condition Stable Stable Stable Ambulatory Status Ambulatory Ambulatory Ambulatory Transportation Private Auto Private Auto Private Auto Accompanied by Facility Type Home Health Home Health Telephoned (if yes, spoke with:) Yes Assessment/Plan Active Problems (Last Reviewed 05/19/20 @ 13:24 by Adina Bhat COOK CHILI, COOK CHILI-C) Tobacco dependence syndrome (Chronic) Ulcer of left groin with fat layer exposed (Chronic) Hydradenitis (Chronic) bilateral inguinal and left base of scrotum Diabetes mellitus type 2, uncontrolled, with complications (Chronic) Assessment: 1. Extensive hidradenitis bilateral inguinal and perineal areas with extension to base of scrotum. 2. Extensive hidradenitis bilateral perianal areas. 3. Smoker. 4. On manager long term care use of Remicade. 5. Diabetes mellitus. 6. s/p surgical preparation left inguinal area with excision hidradenitis (315 cm2 total wound) and surgical preparation perineal area with excision hidradenitis (315 cm2 total wound) and surgical preparation base left scrotum with incision and drainage and excision hidradenitis (315 cm2 total wound). Plan: Today with the debridement. Wound care - continue Dakin's dressing changes daily to the left groin ulcer. At the tunneling at 6 o'clock, will place silver in that area. Instructed his to make sure that she is getting the silver into the base of the tunnel. Double Tubigrip's to bilateral lower extremities for compression. Wound culture 05/20/20- Serratia marcenscens, Escherichia coli, Streptococcus group F, Anaerobic cocci, Prevotella disiens. He was started on Cipro 2 days ago but he states he doesn't like how it makes him feel. Will start him on Levaquin and Flagyl. When he completes the Flagyl, will start him on Erythromycin for the Streptococcus group F. Ultrasound of his his left lower extremity ordered and done on 04/15/2020. It showed there was no evidence of left lower extremity deep vein thrombosis. Valves are competent and compressible. He will wear Tubigrip for compression. Instructed him to keep legs elevated when sitting. Instructed him to avoid standing for long periods of time. Operative culture shows Enterococcus faecalis and Streptococcus group F, Anaerobic cocci and Prevotella bivia. He stopped the Clindamycin and is now taking Linezolid and has completed the Flagyl for the anaerobes. Prealbumin from 03/23/20 was 8.2. Encourage nutritional supplementation with protein to help the healing process. Discussed this at length with both the patient and his . He has been drinking Boost. HgbA1c from 03/11/20 was 8.8. If a skin graft is needed in the future, his HgbA1c needs to be less than 8. He continues to have increased pain of his ulcer area. Renewed Percocet (14). PDMP reviewed. Followup one week.
== END 2020-06-10 23:59 ==
LOC: WC 08:30
PROVIDERS: PCP Nurse Practitioner; Referring Provider Nurse Practitioner Family; Visit Provider Surgery
DX: L73.2 Hidradenitis suppurativa (principal); F17.200 Nicotine dependence, unspecified, uncomplicated; E11.65 Type 2 diabetes mellitus with hyperglycemia; L98.492 Non-pressure chronic ulcer of skin of other sites with fat layer exposed
CPT/HCPCS: 11042; 11045

== ENCOUNTER 2020-07-05 15:15 | Outpatient (RCR) | payer OTHER, SELFPAY ==
[2020-06-07 13:55] VITALS: BMI 24.2
[2020-06-11 00:42] VITALS: BP 137/49; PULSE 89; RESP 18; TEMP 37.1
[2020-06-13 08:48] VITALS: BP 151/73; PULSE 87; RESP 18; TEMP 37; BMI 24.2
--- NOTE | 2020-06-13 11:48 | PCM.WC.PN ---
History of Present Illness Date of Service: 06/13/20 Chief Complaint: Open surgical hidradenitis wound left inguinal, perineal, and base of scrotum. History of Wound: Surgery 03/22/20 - 1. Surgical preparation left inguinal area with excision hidradenitis (315 cm2 total wound). 2. Surgical preparation perineal area with excision hidradenitis (315 cm2 total wound). 3. Surgical preparation base left scrotum with incision and drainage and excision hidradenitis (315 cm2 total wound). Wound care - Dakin's dressing changes daily, silver packed into the tunnel at 6:00, covered with gauze or ABD. Wound culture 05/20/20- Serratia marcenscens, Escherichia coli, Streptococcus group F, Anaerobic cocci, Prevotella disiens. He was started on Cipro 2 days ago but he states he doesn't like how it makes him feel. Will start him on Levaquin and Flagyl. He has completed the Flagyl. After speaking with Dr. Palmer, the Strep group F is covered by the Levaquin. Operative culture - Enterococcus faecalis and Streptococcus group F, Anaerobic cocci and Prevotella bivia. Taking Linezolid and completed Flagyl. Pathology - hidradenitis. Prealbumin from 03/23/20 was 8.2. Encourage nutritional supplementation with protein to help the healing process. HgbA1c from 03/11/20 was 8.8. Ultrasound of his his left lower extremity ordered and done 04/15/2020. It showed there was no evidence of left lower extremity deep vein thrombosis. Valves are competent and compressible. He will wear Tubigrip for compression. Instructed him to keep legs elevated when sitting. Instructed him to avoid standing for long periods of time. Today he denies fever. His appetite has not been good. Encouraged protein supplementation. Subjective Subjective: Patient comes in today complaining of left back pain that has not improved for the past month. Objective Data Objective Data Vital Signs: Vital Signs Temp Pulse Resp BP 98.6 F 87 18 151/73 H 06/13/20 08:48 06/13/20 08:48 06/13/20 08:48 06/13/20 08:48 Oxygen Delivery Method Room Air Weight: 161 lb Body Mass Index (BMI) 24.2 Finger Stick Blood Glucose 144 Assessment & Plan Assessment/Plan (1) Ulcer of left groin with fat layer exposed: Status: Chronic Code(s): L98.492 - Non-pressure chronic ulcer of skin of other sites with fat layer exposed (2) Skin ulcer of scrotum: Status: Chronic Code(s): N50.89 - Other specified disorders of the male genital organs (3) Infection of scrotum: Status: Chronic Code(s): N49.2 - Inflammatory disorders of scrotum (4) Hydradenitis: Status: Chronic Code(s): L73.2 - Hidradenitis suppurativa (5) Diabetes mellitus type 2, uncontrolled, with complications: Status: Chronic Code(s): E11.8 - Type 2 diabetes mellitus with unspecified complications; E11.65 - Type 2 diabetes mellitus with hyperglycemia (6) Acute blood loss anemia: Status: Acute Code(s): D62 - Acute posthemorrhagic anemia (7) Tobacco dependence syndrome: Status: Chronic Code(s): F17.200 - Nicotine dependence, unspecified, uncomplicated Plan: Wound care - continue Dakin's dressing changes daily to the left groin ulcer. At the tunneling at 6 o'clock, will place silver in that area.? Ultrasound of his his left lower extremity ordered and done on 04/15/2020.? It showed there was no evidence of left lower extremity deep vein thrombosis.? Valves are competent and compressible.? He will wear Tubigrip for compression.? Instructed him to keep legs elevated when sitting.? Instructed him to avoid standing for long periods of time.? Operative culture shows Enterococcus faecalis and Streptococcus group F, Anaerobic cocci and Prevotella bivia.? He completed the Linezolid and the Flagyl for the anaerobes.? He was hospitalized 05/19-05/20/20 for Acute blood loss anemia.? He received 2 units of PRBCs for a Hgb 5.6.? Repeat Hgb 9.4 from 05/25/20. Wound Culture from 05/20/20 positive for Serratia marcescens, E coli, Streptococcus group F, Anaerobic cocci and Prevotella disiens.? He was placed on Levaquin and Flagyl.?? EGD 05/26/20, patient states he has an ulcer which is being treated medically.? He is scheduled to have a colonoscopy soon. He went to the ED on 05/29 for fevers.? They cultured his left groin ulcer and it showed Ecoli, Klebsiella pneumoniae, Serratia marcenscens, Streptococcus constellatus, Staphylococcus peudintermedia.? He was placed on levaquin and Flagyl.? Continue the Levaquin and he finished Flagyl. ?Prealbumin from 03/23/20 was 8.2.? Encourage nutritional supplementation with protein to help the healing process. Discussed this at length with both the patient and his . He has been drinking Boost.? HgbA1c from 03/11/20 was 8.8.? If a skin graft is needed in the future, his HgbA1c needs to be less than 8. He is scheduled to see his PCP later this week about his back pain. ? Renewed Percocet (14).? PDMP reviewed.? Followup one week. Physical Exam Const oriented x3 Constitutional Narrative: Patient appears uncomfortable sitting due to his left back pain. General Appearance: cooperative HEENT normocephalic Eyes PERRL Lymph Lymphatic: no lymphadenopathy noted Resp normal respiratory effort Cardio regular rate GI non-tender; Negative for non-distended Extremity normal to inspection Skin Wound Narrative: Left groin ulcer is beefy pink. There is improvement in the size of the ulcer. Neuro CN's II-XII intact bilaterally Psych Appearance: grossly normal Debridement Note Debridement Note Post-Debridement Measurements and Additional Note: Post-Debridement Measurements/Treatment WC - Nurse 2 - General Ulcer CM Notes Start: 06/13/20 08:47 Freq: Status: Active Protocol: Activity Type Activity Date Activity User E-Sign Co-Sign Detail Recorded Client Recorded Date Recorded By Document 06/13/20 09:19 LIZETTE [id number] 06/13/20 09:25 LIZETTE 06/13/20 09:19 Wound Center Nurse 2 #1- L GROIN/BUTTOCK POST OP -Time 09:20 -Correct Patient Yes -Correct Side, Site, Position Yes -Correct Procedure Yes -Procedure Performed Yes -Type of Procedure Debridement -Clinical Debridement Subcutaneous -Tissue Removed Subcutaneous -Post Debridement (cm) - Length 11.8 -Post Debridement (cm) - Width 5 -Post Debridement (cm) - Depth 0.1 -Total Square (Post) (cm) 59.0 -Area of Debridement (cm) - Length 11.8 -Area of Debridement (cm) - Width 5 -Total Square (Area) (cm) 59.0 -Tunneling Yes -Tunneling Position (O'clock) 6 -Tunneling Distance (cm) 5 -Undermining/Tunneling No -Circular Undermining No -Wound/Ulcer Outcome Not Healed -Foul Odor after Cleansing No -Bioengineered Tissue No -Bleeding Controlled with Pressure -Offloading No -Treatment Response Procedure Tolerated Well -Debridement - Subq, 1st 20sq cm Yes -Debridement, SubQ, ea addt'l 20sq cm 2 or part thereof Pain Scale: 0-10 Numeric Is Patient Pain Free? Yes WC - Nurse 3 - General Ulcer D/C NN Start: 06/13/20 08:47 Freq: Status: Active Protocol: Activity Type Activity Date Activity User E-Sign Co-Sign Detail Recorded Client Recorded Date Recorded By Document 06/13/20 09:36 BLUE [id number] 06/13/20 09:36 BLUE 06/13/20 09:36 Wound Care Nurse 3 #1- L GROIN/BUTTOCK POST OP -Ulcer Cleansing Rinsed/ Irrigated with Saline -Primary Dressing Applied Aquacel Extra -Primary Dressing Covered/Secured with Dry Gauze, Secured with Tape -Aquacel Extra 1 Pain Scale: 0-10 Numeric Is Patient Pain Free? Yes WC - Visit Discharge Discharge Condition Stable Ambulatory Status Ambulatory Transportation Private Auto Accompanied by Wound debrided: Left groin ulcer Laterality: Left Type of Debridement: Excisional debridement Anesthesia Used: 5% Lidocaine Gel Depth: Down to and including healthy tissue and in the subcutaneous layer Percentage of wound debrided: 100 Instrument Used: 7mm curette Tissue Removed: Subcutaneous tissue and slough Severity: Fat Layer Exposed Amount of bleeding with debridement: Moderate Bleeding Controlled with: Pressure and Compression and gauze Patient tolerated procedure: Patient tolerated procedure well
[2020-06-13 21:35] LABS: Absolute Lymphocyte Count 2.71 X10^3/uL (0.83-4.51); Absolute Neutrophil Count 8.5 X10^3/uL (2.0-7.7); Basophil# 0.07 X10^3/uL; Basophil% 0.6 % (0-1); Eosinophil# 0.12 X10^3/uL; Hematocrit 32.7 % (40-54); Hemoglobin 9.7 g/dL (13.0-16.5); Lymphocyte # 2.71 X10^3/ul (0.83-4.51); Lymphocyte % 22.1 % (19-41); Mean Corp Hgb Conc 29.7 g/dL (32-36); Mean Corpuscular Hgb 26.2 pg (27.0-32.0); Mean Corpuscular Volume 88.4 fL (80-94); Mean Platelet Vol. 10.7 fl (6.2-12.0); Monocyte# 0.77 X10^3/uL; Monocyte% 6.3 % (0-10); NRBC Flagged by Analyzer 0 % (0-5); Neutrophil # 8.52 X10^3/uL (2.7-7.7); Neutrophil % 69.6 % (47-70); Platelet Count 325 K/mm3 (150-450); RBC Distribution Width SD 61.5 fl (35.1-43.9); White Blood Count 12.2 K/mm3 (4.4-11.0)
[2020-06-13 21:49] LABS: ALB/GLOB Ratio 0.4 RATIO (0.9-2.4); AST(SGOT) 7 U/L (15-37); Alanine Aminotransfer ALT/SGPT 14 U/L (16-61); Albumin, Serum 2.4 g/dL (3.2-5.0); Alkaline Phosphatase 131 U/L (45-117); Amylase 40 U/L (25-115); Anion Gap 4 (5-15); BUN 8 mg/dL (7-18); BUN/Creat Ratio 7.3 RATIO (10-20); Calcium,Total 9.1 mg/dL (8.5-10.1); Chloride 101 mmol/L (98-107); EST Glomerular Filtration Rate 73 mL/min (>60); Est Glom Filt Rate - Afr Amer 89 mL/min (>60); Estimated Creatinine Clearance 72.55 ml/min; Globulin 5.6 g/dL (2.2-4.2); Glucose 186 mg/dL (74-106); Lipase 88 U/L (73-393); Potassium 4.9 mmol/L (3.5-5.1); Sodium Level 135 mmol/L (136-145)
[2020-06-20 08:35] VITALS: BP 166/76; PULSE 95; TEMP 36.1; BMI 24.2
--- NOTE | 2020-06-20 09:36 | RAD_ITS ---
STUDY: X-RAY CHEST REASON FOR EXAM: Male, 54 years old. L rib pain TECHNIQUE: PA and lateral views of the chest. COMPARISON: Comparison is made with prior study dated 05/29/2020. FINDINGS: Hyperinflation. Stable mild increased markings at the lung bases suggestive of a double scarring. Normal size heart. Normal mediastinum and anthony. Normal visualized pulmonary arteries. Normal visualized aortic arch and descending thoracic aorta. There are diffuse degenerative changes of the visualized thoracic spine. Normal visualized ribs, clavicles, and shoulders. There is no demonstrated abnormality of the visualized soft tissue structures of the upper abdomen. RAD/Chest PA and Lateral IMPRESSION: Hyperinflation. Stable examination. Electronically Signed: Jose Alberto Bartholomew MD at 10:11 EDT , Service support ,
--- NOTE | 2020-06-20 12:39 | PCM.WC.PN ---
History of Present Illness Date of Service: 06/20/20 Chief Complaint: Open surgical hidradenitis wound left inguinal, perineal, and base of scrotum. History of Wound: Surgery 03/22/20 - 1. Surgical preparation left inguinal area with excision hidradenitis (315 cm2 total wound). 2. Surgical preparation perineal area with excision hidradenitis (315 cm2 total wound). 3. Surgical preparation base left scrotum with incision and drainage and excision hidradenitis (315 cm2 total wound). Wound care - Dakin's dressing changes daily, silver packed into the tunnel at 6:00, covered with gauze or ABD. Wound culture 05/20/20- Serratia marcenscens, Escherichia coli, Streptococcus group F, Anaerobic cocci, Prevotella disiens. He was started on Cipro 2 days ago but he states he doesn't like how it makes him feel. Will start him on Levaquin and Flagyl. He has completed the Flagyl. After speaking with Dr. Palmer, the Strep group F is covered by the Levaquin. Operative culture - Enterococcus faecalis and Streptococcus group F, Anaerobic cocci and Prevotella bivia. Taking Linezolid and completed Flagyl. Pathology - hidradenitis. Prealbumin from 03/23/20 was 8.2. Encourage nutritional supplementation with protein to help the healing process. HgbA1c from 03/11/20 was 8.8. Ultrasound of his his left lower extremity ordered and done 04/15/2020. It showed there was no evidence of left lower extremity deep vein thrombosis. Valves are competent and compressible. He will wear Tubigrip for compression. Instructed him to keep legs elevated when sitting. Instructed him to avoid standing for long periods of time. Today he denies fever. His appetite has not been good. Encouraged protein supplementation. Progress of Wound: Left groin ulcer is improving. Right groin hidradenitis draining and right base of scrotum has areas of hidradenitis that are draining milky white drainage. Objective Data Objective Data Vital Signs: Vital Signs Temp Pulse Resp BP 97.0 F L 95 18 166/76 H 06/20/20 08:35 06/20/20 08:35 06/13/20 08:48 06/20/20 08:35 Oxygen Delivery Method Room Air Weight: 161 lb Body Mass Index (BMI) 24.2 Finger Stick Blood Glucose 144 Lab / Micro Data Result Diagrams: 06/13/20 Unknown 06/13/20 Unknown Assessment & Plan Assessment/Plan (1) Ulcer of left groin with fat layer exposed: (2) Tobacco dependence syndrome: (3) Acute postoperative anemia due to expected blood loss: (4) Infection of scrotum: (5) Anemia of chronic disease: (6) Ulcer of perineum with fat layer exposed: (7) Hidradenitis suppurativa of anus: (8) Malnutrition: QUALIFIERS: Malnutrition type: protein-calorie malnutrition Protein-calorie malnutrition severity: moderate Qualified Code(s): E44.0 - Moderate protein-calorie malnutrition (9) Hydradenitis: (10) Diabetes mellitus type 2, uncontrolled, with complications: PLAN: Wound care - Stop Dakin's dressing changes and start Aquacel-Ag? daily to the left groin ulcer. At the tunneling at 6 o'clock, will place silver in that area. Due to the increase in his drainage of his hidradenitis, he can use a handheld shower to rinse his groin and perineal area.? He may try sitz bath only if he cleans his bathtub before sitting in it, and rinses the left groin ulcer after the sitz bath with the handheld shower and then rinses the ulcer with Dakin's before applying his silver dressing.? Ultrasound of his his left lower extremity ordered and done on 04/15/2020.? It showed there was no evidence of left lower extremity deep vein thrombosis.? Valves are competent and compressible.? He will wear Tubigrip for compression.? Instructed him to keep legs elevated when sitting.? Instructed him to avoid standing for long periods of time.? Operative culture shows Enterococcus faecalis and Streptococcus group F, Anaerobic cocci and Prevotella bivia.? He completed the Linezolid and the Flagyl for the anaerobes.? He was hospitalized 05/19-05/20/20 for Acute blood loss anemia.? He received 2 units of PRBCs for a Hgb 5.6.? Repeat Hgb 9.4 from 05/25/20. Wound Culture from 05/20/20 positive for Serratia marcescens, E coli, Streptococcus group F, Anaerobic cocci and Prevotella disiens.? He was placed on Levaquin and Flagyl.?? EGD 05/26/20, patient states he has an ulcer which is being treated medically.? He is scheduled to have a colonoscopy soon. He went to the ED on 05/29 for fevers.? They cultured his left groin ulcer and it showed Ecoli, Klebsiella pneumoniae, Serratia marcenscens, Streptococcus constellatus, Staphylococcus peudintermedia.? He was placed on levaquin and Flagyl.? Continue the Levaquin and he finished Flagyl. ?Prealbumin from 03/23/20 was 8.2.? Encourage nutritional supplementation with protein to help the healing process. Discussed this at length with both the patient and his . He has been drinking Boost.? HgbA1c from 03/11/20 was 8.8.? If a skin graft is needed in the future, his HgbA1c needs to be less than 8. He is scheduled to see his PCP later this week about his back pain. Discussed with his PCP, Adina Bhat about his pain control.? She will have him make an appointment to discuss this issue with him.? This week I will renewed Percocet (14).? PDMP reviewed. ? Followup one week. Charges/Coding Procedures Integumentary [id number]: [id number] Ayla subq tissue 20 sq cm/< Add On Codes: 44832 Ayla subq tissue add-on (x2) Physical Exam Const alert and oriented x3 General Appearance: cooperative HEENT normocephalic Head and Scalp: atraumatic Eyes PERRL Resp normal respiratory effort Cardio regular rate Extremity normal capillary refill General Extremity: edema bilateral lower extremity Details: trace Skin Wound Narrative: Left groin ulcer is beefy pink, there are areas on base of scrotum that are draining milky white discharge on the left and right groin hidradenitis flare Neuro CN's II-XII intact bilaterally Psych Appearance: grossly normal Debridement Note Debridement Note Post-Debridement Measurements and Additional Note: Post-Debridement Measurements/Treatment BEKA - Nurse 1 - General Ulcer Assessment Start: 06/13/20 08:47 Freq: Status: Active Protocol: BEKA.LOWSARMAD Activity Type Activity Date Activity User E-Sign Co-Sign Detail Recorded Client Recorded Date Recorded By Document 06/13/20 08:48 BMF [id number] 06/13/20 08:54 BMF Document 06/20/20 08:35 KR [id number] 06/20/20 08:42 KR 06/13/20 06/20/20 08:48 08:35 - Today's Visit Information Type of service Follow-up Visit Follow-up Visit (Physician/CONFECTIONERY COOKER (Physician/CONFECTIONERY COOKER ) ) Arrival Mode Ambulatory Ambulatory Transfer Assistance None Accompanied by Patient Identification Verified (Name & Yes Yes ) Patient Requires Transmission-Based No Precautions Height and Weight Body Mass Index (BMI) 24.2 24.2 BMI Classification Normal Normal Vital Signs Temperature (97.8 F-99.1 F) 98.6 F 97.0 F L Temperature Source Temporal Temporal Pulse Rate (60-100) 87 95 Pulse Location Monitor Monitor Respiratory Rate (12-18) 18 Respiratory rate source Observation Oxygen Delivery Method Room Air Blood Pressure (90/60-120/80) 151/73 H 166/76 H Blood Pressure Mean (mm Hg) 99 106 Source Monitor Monitor Position Supine Semi-Fowlers Blood Pressure Location Left Arm Left Arm History Since Last Visit- (Skip if this is Patient's initial visit) Have you changed medications since your No No last visit? Any new allergies or adverse reactions No No Had a fall/change in ADL's that may No No increase risk of falls Signs or symptoms of abuse and/or No No neglect since last visit Have you been in the hospital since your No No last visit? Has dressing in place as prescribed Yes Yes Has compression in place as prescribed N/A N/A Has offloadiing in place as prescribed N/A N/A Experienced any changes in pain level or No No management Left Footwear Regular Shoe Regular Shoe Right Footwear Regular Shoe Regular Shoe Pain Scale: 0-10 Numeric Is Patient Pain Free? Yes Yes - Nurse 1 - General Ulcer Measurement Start: 06/13/20 08:47 Freq: Status: Active Protocol: Activity Type Activity Date Activity User E-Sign Co-Sign Detail Recorded Client Recorded Date Recorded By Document 06/13/20 08:48 [facility] [id number] 06/13/20 08:54 [facility] Document 06/20/20 08:35 KR [id number] 06/20/20 08:42 BLUE 06/13/20 06/20/20 08:48 08:35 Wound Center Nurse 1 #1- L GROIN/BUTTOCK POST OP -Current Size (cm) - Length 11.1 11.9 -Current Size (cm) - Width 3.3 4.8 -Current Size (cm) - Depth 0.9 0.1 -Total Square Cm 36.63 57.12 -Tunneling Position (O'clock) 6 -Tunneling Distance (cm) 2.1 -Exudate Amt Medium Large -Exudate Type Serosanguineous Serosanguineous -Wound Margin Distinct, Distinct, Outline Outline Attached Attached -Granulation Amt Large (67-100%) Large (67-100%) -Granulation Quality Red Red -Slough/Fibrin No -Necrosis Amt None Present (0 None Present (0 %) %) -Texture (Abimbola-wound Skin Appearance) Assessed, Assessed, Scarring Scarring -Moisture (Abimbola-wound Skin Appearance) No Abnormality, No Abnormality, Assessed Assessed -Color (Abimbola-wound Skin Appearance) No Abnormality, No Abnormality, Assessed Assessed, Ecchymosis -Temperature (Abimbola-wound Skin No Abnormality Appearance) (Pt Warm) -Tenderness on Palpation (Abimbola-wound No No Skin Appearance) -Ulcer Cleansing Rinsed/ Rinsed/ Irrigated with Irrigated with Saline Saline -Foul Odor after Cleansing No No -Anesthetic Used 4% Lidocaine 4% Lidocaine Solution Solution WC - Nurse 2 - General Ulcer CM Notes Start: 06/13/20 08:47 Freq: Status: Active Protocol: Activity Type Activity Date Activity User E-Sign Co-Sign Detail Recorded Client Recorded Date Recorded By Document 06/13/20 09:19 JF [id number] 06/13/20 09:25 Document 06/20/20 08:56 [id number] 06/20/20 09:04 06/13/20 06/20/20 09:19 08:56 Wound Center Nurse 2 #1- L GROIN/BUTTOCK POST OP -Time 09:20 08:56 -Correct Patient Yes Yes -Correct Side, Site, Position Yes Yes -Correct Procedure Yes Yes -Procedure Performed Yes Yes -Type of Procedure Debridement Debridement -Clinical Debridement Subcutaneous Subcutaneous -Tissue Removed Subcutaneous Subcutaneous -Post Debridement (cm) - Length 11.8 11.5 -Post Debridement (cm) - Width 5 3.5 -Post Debridement (cm) - Depth 0.1 0.1 -Total Square (Post) (cm) 59.0 40.25 -Area of Debridement (cm) - Length 11.8 11.5 -Area of Debridement (cm) - Width 5 3.5 -Total Square (Area) (cm) 59.0 40.25 -Tunneling Yes Yes -Tunneling Position (O'clock) 6 6 -Tunneling Distance (cm) 5 4.5 -Undermining/Tunneling No No -Circular Undermining No No -Wound/Ulcer Outcome Not Healed Not Healed -Ulcer Cleansing Rinsed/ Irrigated with Saline -Foul Odor after Cleansing No No -Bioengineered Tissue No No -Bleeding Controlled with Pressure Pressure -Offloading No No -Treatment Response Procedure Procedure Tolerated Well Tolerated Well -Debridement - Subq, 1st 20sq cm Yes Yes -Debridement, SubQ, ea addt'l 20sq cm 2 2 or part thereof Pain Scale: 0-10 Numeric Is Patient Pain Free? Yes Yes - Nurse 3 - General Ulcer D/C NN Start: 06/13/20 08:47 Freq: Status: Active Protocol: Activity Type Activity Date Activity User E-Sign Co-Sign Detail Recorded Client Recorded Date Recorded By Document 06/13/20 09:36 KR [id number] 06/13/20 09:36 KR Document 06/20/20 09:21 KR [id number] 06/20/20 09:21 KR 06/13/20 06/20/20 09:36 09:21 Wound Care Nurse 3 #1- L GROIN/BUTTOCK POST OP -Ulcer Cleansing Rinsed/ Rinsed/ Irrigated with Irrigated with Saline Saline -Foul Odor after Cleansing No -Primary Dressing Applied Aquacel Extra Aquacel AG 4x4 -Primary Dressing Covered/Secured with Dry Gauze, Dry Gauze, Secured with Secured with Tape Tape -Aquacel Extra 1 -Aquacel AG 4x4 1 Pain Scale: 0-10 Numeric Is Patient Pain Free? Yes Yes - Visit Discharge Discharge Condition Stable Stable Ambulatory Status Ambulatory Ambulatory Transportation Private Auto Private Auto Accompanied by Facility Type Home Health Orders Sent Yes Wound debrided: groin ulcer Laterality: Left Type of Debridement: Excisional debridement Anesthesia Used: 5% Lidocaine Gel Depth: Down to and including healthy tissue and in the subcutaneous layer Percentage of wound debrided: 100 Instrument Used: 7mm curette Tissue Removed: Subcutaneous tissue and slough Severity: Fat Layer Exposed Bleeding Controlled with: Compression and gauze Debridement Free Text: He has a tunnel at 6 o'clock on the left groin ulcer
[2020-06-28 15:58] VITALS: BP 170/66; PULSE 100; RESP 18; TEMP 37.1; BMI 24.2
--- NOTE | 2020-06-28 16:59 | PN.PCM_ITS ---
History of Present Illness Date of Service: 06/28/20 Chief Complaint: Open surgical hidradenitis wound left inguinal, perineal, and base of scrotum. History of Wound: Surgery 03/22/20 - 1. Surgical preparation left inguinal area with excision hidradenitis (315 cm2 total wound). 2. Surgical preparation perineal area with excision hidradenitis (315 cm2 total wound). 3. Surgical preparation base left scrotum with incision and drainage and excision hidradenitis (315 cm2 total wound). Wound care - Aquace-Ag, making sure to pack the silver into the tunnel at 6:00, covered with gauze or ABD. Wound culture 05/20/20- Serratia marcenscens, Escherichia coli, Streptococcus group F, Anaerobic cocci, Prevotella disiens. He was started on Cipro 2 days ago but he states he doesn't like how it makes him feel. Will start him on Levaquin and Flagyl. He has completed the Flagyl. After speaking with Dr. Palmer, the Strep group F is covered by the Levaquin. Operative culture - Enterococcus faecalis and Streptococcus group F, Anaerobic cocci and Prevotella bivia. Taking Linezolid and completed Flagyl. Pathology - hidradenitis. Prealbumin from 03/23/20 was 8.2. Encourage nutritional supplementation with protein to help the healing process. HgbA1c from 03/11/20 was 8.8. Ultrasound of his his left lower extremity ordered and done 04/15/2020. It showed there was no evidence of left lower extremity deep vein thrombosis. Valves are competent and compressible. He will wear Tubigrip for compression. Instructed him to keep legs elevated when sitting. Instructed him to avoid standing for lo ng periods of time. Today he denies fever. His appetite has not been good. Encouraged protein supp lementation. Progress of Wound: Left groin ulcer is improving. Right groin hidradenitis still has some drainage. Objective Data Objective Data Vital Signs: Vital Signs Temp Pulse Resp BP 98.7 F 100 18 170/66 H 06/28/20 15:58 06/28/20 15:58 06/28/20 15:58 06/28/20 15:58 Oxygen Delivery Method Room Air Weight: 161 lb Body Mass Index (BMI) 24.2 Lab / Micro Data Result Diagrams: 06/13/20 Unknown 06/13/20 Unknown Physical Exam Const alert and oriented x3 General Appearance: cooperative HEENT normocephalic Head and Scalp: atraumatic Eyes PERRL Lymph Lymphatic: no lymphedema noted Resp normal respiratory effort Cardio regular rate GI non-tender Palpation: soft Extremity General Extremity: edema bilateral lower extremity Details: mild Skin Wound Narrative: Left groin ulcer is beefy red. Tunnel at 6 o'clock is not as deep today. He continues to have discomfort, swelling and drainage on the right groin and the base of penis and scrotal area from hidradenitis. Neuro CN's II-XII intact bilaterally Psych Appearance: grossly normal Debridement Note Debridement Note Post-Debridement Measurements and Additional Note: Post-Debridement Measurements/Treatment - Nurse 1 - General Ulcer Assessment Start: 06/13/20 08:47 Freq: Status: Active Protocol: BEKA.[email or web address] Activity Type Activity Date Activity User E-Sign Co-Sign Detail Recorded Client Recorded Date Recorded By Document 06/13/20 08:48 [facility] [id number] 06/13/20 08:54 [facility] Document 06/20/20 08:35 KR [id number] 06/20/20 08:42 KR Document 06/28/20 15:58 PL Desktop 06/28/20 16:06 PL 06/13/20 06/20/20 06/28/20 08:48 08:35 15:58 - Today's Visit Information Type of service Follow-up Visit Follow-up Visit Follow-up Visit (Physician/REGIONAL SALES DIRECTOR (Physician/REGIONAL SALES DIRECTOR (Physician/REGIONAL SALES DIRECTOR ) ) ) Arrival Mode Ambulatory Ambulatory Ambulatory Transfer Assistance None None Accompanied by Patient Identification Verified (Name & Yes Yes Yes ) Patient Requires Transmission-Based No No Precautions Safety Precautions NA Height and Weight Body Mass Index (BMI) 24.2 24.2 24.2 BMI Classification Normal Normal Normal Vital Signs Temperature (97.8 F-99.1 F) 98.6 F 97.0 F L 98.7 F Temperature Source Temporal Temporal Temporal Pulse Rate (60-100) 87 95 100 Pulse Location Monitor Monitor Respiratory Rate (12-18) 18 18 Respiratory rate source Observation Oxygen Delivery Method Room Air Blood Pressure (90/60-120/80) 151/73 H 166/76 H 170/66 H Blood Pressure Mean (mm Hg) 99 106 100 Source Monitor Monitor Position Supine Semi-Fowlers Blood Pressure Location Left Arm Left Arm History Since Last Visit- (Skip if this is Patient's initial visit) Have you changed medications since your No No No last visit? Any new allergies or adverse reactions No No No Had a fall/change in ADL's that may No No No increase risk of falls Signs or symptoms of abuse and/or No No No neglect since last visit Have you been in the hospital since your No No No last visit? Has dressing in place as prescribed Yes Yes Yes Has compression in place as prescribed N/A N/A N/A Has offloadiing in place as prescribed N/A N/A N/A Experienced any changes in pain level or No No No management Left Footwear Regular Shoe Regular Shoe Right Footwear Regular Shoe Regular Shoe Pain Scale: 0-10 Numeric Is Patient Pain Free? Yes Yes Yes WC - Nurse 1 - General Ulcer Measurement Start: 06/13/20 08:47 Freq: Status: Active Protocol: Activity Type Activity Date Activity User E-Sign Co-Sign Detail Recorded Client Recorded Date Recorded By Document 06/13/20 08:48 [facility] [id number] 06/13/20 08:54 BM Document 06/20/20 08:35 KR [id number] 06/20/20 08:42 KR Document 06/28/20 15:58 PL Desktop 06/28/20 16:06 PL 06/13/20 06/20/20 06/28/20 08:48 08:35 15:58 Wound Center Nurse 1 #1- L GROIN/BUTTOCK POST OP -Combined with other wound No -Current Size (cm) - Length 11.1 11.9 11 -Current Size (cm) - Width 3.3 4.8 3.5 -Current Size (cm) - Depth 0.9 0.1 0.1 -Total Square Cm 36.63 57.12 38.5 -Photo Taken No -Epithelialization None Present -Tunneling Position (O'clock) 6 -Tunneling Distance (cm) 2.1 -Circular Undermining No -Exudate Amt Medium Large Large -Exudate Type Serosanguineous Serosanguineous Serosanguineous -Wound Margin Distinct, Distinct, Outline Outline Attached Attached -Granulation Amt Large (67-100%) Large (67-100%) Large (67-100%) -Granulation Quality Red Red [place],Red -Slough/Fibrin No Yes -Necrosis Amt None Present (0 None Present (0 None Present (0 %) %) %) -Necrotic Tissue Type Adherent Slough -Texture (Abimbola-wound Skin Appearance) Assessed, Assessed, No Abnormality Scarring Scarring -Moisture (Abimbola-wound Skin Appearance) No Abnormality, No Abnormality, No Abnormality Assessed Assessed -Color (Abimbola-wound Skin Appearance) No Abnormality, No Abnormality, No Abnormality Assessed Assessed, Ecchymosis -Temperature (Abimbola-wound Skin No Abnormality No Abnormality Appearance) (Pt Warm) (Pt Warm) -Tenderness on Palpation (Abimbola-wound No No Skin Appearance) -Ulcer Cleansing Rinsed/ Rinsed/ Rinsed/ Irrigated with Irrigated with Irrigated with Saline Saline Saline -Foul Odor after Cleansing No No No -Anesthetic Used 4% Lidocaine 4% Lidocaine 4% Lidocaine Solution Solution Solution WC - Nurse 2 - General Ulcer CM Notes Start: 06/13/20 08:47 Freq: Status: Active Protocol: Activity Type Activity Date Activity User E-Sign Co-Sign Detail Recorded Client Recorded Date Recorded By Document 06/13/20 09:19 [id number] 06/13/20 09:25 Document 06/20/20 08:56 [id number] 06/20/20 09:04 Document 06/28/20 16:14 [id number] 06/28/20 16:19 Edit Result 06/28/20 16:14 JF (1) [id number] 06/28/20 16:21 JF (1) #1- L GROIN/BUTTOCK POST OP - Tunneling No => Yes - Tunneling Position (O'clock) => 6 - Tunneling Distance (cm) => 2.6 06/13/20 06/20/20 06/28/20 09:19 08:56 16:14 Wound Center Nurse 2 #1- L GROIN/BUTTOCK POST OP -Time 09:20 08:56 16:15 -Correct Patient Yes Yes Yes -Correct Side, Site, Position Yes Yes Yes -Correct Procedure Yes Yes Yes -Procedure Performed Yes Yes Yes -Type of Procedure Debridement Debridement Debridement -Clinical Debridement Subcutaneous Subcutaneous Subcutaneous -Tissue Removed Subcutaneous Subcutaneous Subcutaneous -Post Debridement (cm) - Length 11.8 11.5 10.2 -Post Debridement (cm) - Width 5 3.5 4 -Post Debridement (cm) - Depth 0.1 0.1 0.2 -Total Square (Post) (cm) 59.0 40.25 40.8 -Area of Debridement (cm) - Length 11.8 11.5 10.2 -Area of Debridement (cm) - Width 5 3.5 4 -Total Square (Area) (cm) 59.0 40.25 40.8 -Tunneling Yes Yes Yes -Tunneling Position (O'clock) 6 6 6 -Tunneling Distance (cm) 5 4.5 2.6 -Undermining/Tunneling No No No -Circular Undermining No No No -Wound/Ulcer Outcome Not Healed Not Healed Not Healed -Ulcer Cleansing Rinsed/ Rinsed/ Irrigated with Irrigated with Saline Saline -Foul Odor after Cleansing No No No -Bioengineered Tissue No No No -Bleeding Controlled with Pressure Pressure Pressure -Offloading No No No -Treatment Response Procedure Procedure Procedure Tolerated Well Tolerated Well Tolerated Well -Debridement - Subq, 1st 20sq cm Yes Yes Yes -Debridement, SubQ, ea addt'l 20sq cm 2 2 2 or part thereof Pain Scale: 0-10 Numeric Is Patient Pain Free? Yes Yes Yes WC - Nurse 3 - General Ulcer D/C NN Start: 06/13/20 08:47 Freq: Status: Active Protocol: Activity Type Activity Date Activity User E-Sign Co-Sign Detail Recorded Client Recorded Date Recorded By Document 06/13/20 09:36 KR [id number] 06/13/20 09:36 KR Document 06/20/20 09:21 KR [id number] 06/20/20 09:21 KR Document 06/28/20 16:42 PL [id number] 06/28/20 16:43 PL 06/13/20 06/20/20 06/28/20 09:36 09:21 16:42 Wound Care Nurse 3 #1- L GROIN/BUTTOCK POST OP -Ulcer Cleansing Rinsed/ Rinsed/ Rinsed/ Irrigated with Irrigated with Irrigated with Saline Saline Saline -Foul Odor after Cleansing No No -Primary Dressing Applied Aquacel Extra Aquacel AG 4x4 Aquacel AG 4x4 -Other Dressing ABD -Primary Dressing Covered/Secured with Dry Gauze, Dry Gauze, Secured with Secured with Secured with Tape Tape Tape -Aquacel Extra 1 -Aquacel AG 4x4 1 1 Pain Scale: 0-10 Numeric Is Patient Pain Free? Yes Yes WC - Visit Discharge Discharge Condition Stable Stable Stable Ambulatory Status Ambulatory Ambulatory Ambulatory Transportation Private Auto Private Auto Private Auto Accompanied by Clinical Summary of Care Provided Yes Facility Type Home Health Orders Sent Yes Wound debrided: Groin ulcer Laterality: Left Type of Debridement: Excisional debridement Anesthesia Used: 5% Lidocaine Gel Depth: Down to and including healthy tissue and in the subcutaneous layer Percentage of wound debrided: 100 Instrument Used: 7mm curette Tissue Removed: Subcutaneous tissue and slough Severity: Fat Layer Exposed Amount of bleeding with debridement: Mild Bleeding Controlled with: Pressure Patient tolerated procedure: Patient tolerated procedure well
[2020-07-05 14:57] VITALS: BP 172/80; PULSE 94; RESP 18; TEMP 36.2; BMI 24.2
--- NOTE | 2020-07-05 16:35 | PN.PCM_ITS ---
History of Present Illness Date of Service: 07/05/20 Chief Complaint: Open surgical hidradenitis wound left inguinal, perineal, and base of scrotum. History of Wound: Surgery 03/22/20 - 1. Surgical preparation left inguinal area with excision hidradenitis (315 cm2 total wound). 2. Surgical preparation perineal area with excision hidradenitis (315 cm2 total wound). 3. Surgical preparation base left scrotum with incision and drainage and excision hidradenitis (315 cm2 total wound). Wound care - Aquacel-Ag, making sure to pack the silver into the tunnel at 6:00, covered with gauze or ABD. Wound culture obtained today, 07/05/20. Depending on the results of the culture, it may necessitate the need for antibiotics. Wound culture 05/20/20- Serratia marcenscens, Escherichia coli, Streptococcus group F, Anaerobic cocci, Prevotella disiens. He was started on Cipro 2 days ago but he states he doesn't like how it makes him feel. Will start him on Levaquin and Flagyl. He has completed the Flagyl. After speaking with Dr. Palmer, the Strep group F is covered by the Levaquin. Operative culture - Enterococcus faecalis and Streptococcus group F, Anaerobic cocci and Prevotella bivia. Taking Linezolid and completed Flagyl. Pathology - hidradenitis. Prealbumin from 03/23/20 was 8.2. Encourage nutritional supplementation with protein to help the healing process. HgbA1c from 03/11/20 was 8.8. Ultrasound of his his left lower extremity ordered and done 04/15/2020. It showed there was no evidence of left lower extremity deep vein thrombosis. Valves are competent and compressible. He will wear Tubigrip for compression. Instructed him to keep legs elevated when sitting. Instructed him to avoid standing for long periods of time. Today he denies fever. His appetite has not been good. Encouraged protein supplementation. Progress of Wound: Left groin ulcer is not beefy pink like it typically is. There is a purple hue to it and he is complaining of increased pain. Wound culture obtained today. Objective Data Objective Data Vital Signs: Vital Signs Temp Pulse Resp BP 97.1 F L 94 18 172/80 H 07/05/20 14:57 07/05/20 14:57 07/05/20 14:57 07/05/20 14:57 Oxygen Delivery Method Room Air Weight: 161 lb Body Mass Index (BMI) 24.2 Lab / Micro Data Result Diagrams: 06/13/20 Unknown 06/13/20 Unknown Charges/Coding Procedures Integumentary 111xxx-113xx: [id number] Ayla subq tissue 20 sq cm/< Add On Codes: 37069 Ayla subq tissue add-on (x2) Physical Exam Const alert and oriented x3 General Appearance: cooperative HEENT normocephalic Eyes PERRL Resp normal respiratory effort Cardio regular rate GI non-tender Palpation: soft Extremity normal capillary refill Skin Wound Narrative: Left groin ulcer is a purple/pink color. Continues to have a tunnel at 6 o'clock. He has some white drainage from his hidradenitis on his scrotum and base of penis. Neuro CN's II-XII intact bilaterally Psych Thought Process: normal thought process Debridement Note Debridement Note Post-Debridement Measurements and Additional Note: Post-Debridement Measurements/Treatment - Nurse 1 - General Ulcer Assessment Start: 06/13/20 08:47 Freq: Status: Active Protocol: BEKA.PADMINI Activity Type Activity Date Activity User E-Sign Co-Sign Detail Recorded Client Recorded Date Recorded By Document 06/13/20 08:48 [facility] [id number] 06/13/20 08:54 BMF Document 06/20/20 08:35 KR [id number] 06/20/20 08:42 KR Document 06/28/20 15:58 PL Desktop 06/28/20 16:06 PL Document 07/05/20 14:57 PL [id number] 07/05/20 15:04 PL 06/13/20 06/20/20 06/28/20 08:48 08:35 15:58 - Today's Visit Information Type of service Follow-up Visit Follow-up Visit Follow-up Visit (Physician/CONFERENCE TRANSLATOR (Physician/CONFERENCE TRANSLATOR (Physician/CONFERENCE TRANSLATOR ) ) ) Arrival Mode Ambulatory Ambulatory Ambulatory Transfer Assistance None None Accompanied by Patient Identification Verified (Name & Yes Yes Yes ) Patient Requires Transmission-Based No No Precautions Safety Precautions NA Height and Weight Body Mass Index (BMI) 24.2 24.2 24.2 BMI Classification Normal Normal Normal Vital Signs Temperature (97.8 F-99.1 F) 98.6 F 97.0 F L 98.7 F Temperature Source Temporal Temporal Temporal Pulse Rate (60-100) 87 95 100 Pulse Location Monitor Monitor Respiratory Rate (12-18) 18 18 Respiratory rate source Observation Oxygen Delivery Method Room Air Blood Pressure (90/60-120/80) 151/73 H 166/76 H 170/66 H Blood Pressure Mean (mm Hg) 99 106 100 Source Monitor Monitor Position Supine Semi-Fowlers Blood Pressure Location Left Arm Left Arm History Since Last Visit- (Skip if this is Patient's initial visit) Have you changed medications since your No No No last visit? Any new allergies or adverse reactions No No No Had a fall/change in ADL's that may No No No increase risk of falls Signs or symptoms of abuse and/or No No No neglect since last visit Have you been in the hospital since your No No No last visit? Has dressing in place as prescribed Yes Yes Yes Has compression in place as prescribed N/A N/A N/A Has offloadiing in place as prescribed N/A N/A N/A Experienced any changes in pain level or No No No management Left Footwear Regular Shoe Regular Shoe Right Footwear Regular Shoe Regular Shoe Pain Scale: 0-10 Numeric Is Patient Pain Free? Yes Yes Yes 07/05/20 14:57 WC - Today's Visit Information Type of service Follow-up Visit (Physician/CONFERENCE TRANSLATOR ) Arrival Mode Ambulatory Transfer Assistance None Accompanied by Patient Identification Verified (Name & Yes ) Patient Requires Transmission-Based No Precautions Safety Precautions NA Height and Weight Body Mass Index (BMI) 24.2 BMI Classification Normal Vital Signs Temperature (97.8 F-99.1 F) 97.1 F L Temperature Source Temporal Pulse Rate (60-100) 94 Pulse Location Respiratory Rate (12-18) 18 Respiratory rate source Oxygen Delivery Method Blood Pressure (90/60-120/80) 172/80 H Blood Pressure Mean (mm Hg) 110 Source Position Blood Pressure Location History Since Last Visit- (Skip if this is Patient's initial visit) Have you changed medications since your No last visit? Any new allergies or adverse reactions No Had a fall/change in ADL's that may No increase risk of falls Signs or symptoms of abuse and/or No neglect since last visit Have you been in the hospital since your No last visit? Has dressing in place as prescribed Yes Has compression in place as prescribed N/A Has offloadiing in place as prescribed N/A Experienced any changes in pain level or management Left Footwear Right Footwear Pain Scale: 0-10 Numeric Is Patient Pain Free? Yes WC - Nurse 1 - General Ulcer Measurement Start: 06/13/20 08:47 Freq: Status: Active Protocol: Activity Type Activity Date Activity User E-Sign Co-Sign Detail Recorded Client Recorded Date Recorded By Document 06/13/20 08:48 BMF [id number] 06/13/20 08:54 BMF Document 06/20/20 08:35 KR [id number] 06/20/20 08:42 KR Document 06/28/20 15:58 PL Desktop 06/28/20 16:06 PL Document 07/05/20 14:57 PL [id number] 07/05/20 15:04 PL 06/13/20 06/20/20 06/28/20 08:48 08:35 15:58 Wound Center Nurse 1 #1- L GROIN/BUTTOCK POST OP -Combined with other wound No -Current Size (cm) - Length 11.1 11.9 11 -Current Size (cm) - Width 3.3 4.8 3.5 -Current Size (cm) - Depth 0.9 0.1 0.1 -Total Square Cm 36.63 57.12 38.5 -Photo Taken No -Epithelialization None Present -Tunneling -Tunneling Position (O'clock) 6 -Tunneling Distance (cm) 2.1 -Undermining/Tunneling -Circular Undermining No -Exudate Amt Medium Large Large -Exudate Type Serosanguineous Serosanguineous Serosanguineous -Wound Margin Distinct, Distinct, Outline Outline Attached Attached -Granulation Amt Large (67-100%) Large (67-100%) Large (67-100%) -Granulation Quality Red Red [place],Red -Slough/Fibrin No Yes -Necrosis Amt None Present (0 None Present (0 None Present (0 %) %) %) -Necrotic Tissue Type Adherent Slough -Texture ([place]-wound Skin Appearance) Assessed, Assessed, No Abnormality Scarring Scarring -Moisture ([place]-wound Skin Appearance) No Abnormality, No Abnormality, No Abnormality Assessed Assessed -Color ([place]-wound Skin Appearance) No Abnormality, No Abnormality, No Abnormality Assessed Assessed, Ecchymosis -Temperature ([place]-wound Skin No Abnormality No Abnormality Appearance) (Pt Warm) (Pt Warm) -Tenderness on Palpation ([place]-wound No No Skin Appearance) -Ulcer Cleansing Rinsed/ Rinsed/ Rinsed/ Irrigated with Irrigated with Irrigated with Saline Saline Saline -Foul Odor after Cleansing No No No -Anesthetic Used 4% Lidocaine 4% Lidocaine 4% Lidocaine Solution Solution Solution 07/05/20 14:57 Wound Center Nurse 1 #1- L GROIN/BUTTOCK POST OP -Combined with other wound No -Current Size (cm) - Length 4.5 -Current Size (cm) - Width 9.5 -Current Size (cm) - Depth 0.2 -Total Square Cm 42.75 -Photo Taken No -Epithelialization None Present -Tunneling No -Tunneling Position (O'clock) -Tunneling Distance (cm) -Undermining/Tunneling No -Circular Undermining No -Exudate Amt Large -Exudate Type Serosanguineous -Wound Margin -Granulation Amt Large (67-100%) -Granulation Quality [place] -Slough/Fibrin Yes -Necrosis Amt Small (1-33%) -Necrotic Tissue Type Adherent Slough -Texture ([place]-wound Skin Appearance) -Moisture ([place]-wound Skin Appearance) -Color ([place]-wound Skin Appearance) -Temperature ([place]-wound Skin Appearance) -Tenderness on Palpation ([place]-wound Skin Appearance) -Ulcer Cleansing Rinsed/ Irrigated with Saline -Foul Odor after Cleansing No -Anesthetic Used 4% Lidocaine Solution WC - Nurse 2 - General Ulcer CM Notes Start: 06/13/20 08:47 Freq: Status: Active Protocol: Activity Type Activity Date Activity User E-Sign Co-Sign Detail Recorded Client Recorded Date Recorded By Document 06/13/20 09:19 [id number] 06/13/20 09:25 JF Document 06/20/20 08:56 JF [id number] 06/20/20 09:04 JF Document 06/28/20 16:14 JF [id number] 06/28/20 16:19 JF Edit Result 06/28/20 16:14 JF (1) [id number] 06/28/20 16:21 JF Document 07/05/20 15:26 JF [id number] 07/05/20 15:33 JF (1) #1- L GROIN/BUTTOCK POST OP - Tunneling No => Yes - Tunneling Position (O'clock) => 6 - Tunneling Distance (cm) => 2.6 06/13/20 06/20/20 06/28/20 09:19 08:56 16:14 Wound Center Nurse 2 #1- L GROIN/BUTTOCK POST OP -Time 09:20 08:56 16:15 -Correct Patient Yes Yes Yes -Correct Side, Site, Position Yes Yes Yes -Correct Procedure Yes Yes Yes -Procedure Performed Yes Yes Yes -Type of Procedure Debridement Debridement Debridement -Clinical Debridement Subcutaneous Subcutaneous Subcutaneous -Tissue Removed Subcutaneous Subcutaneous Subcutaneous -Post Debridement (cm) - Length 11.8 11.5 10.2 -Post Debridement (cm) - Width 5 3.5 4 -Post Debridement (cm) - Depth 0.1 0.1 0.2 -Total Square (Post) (cm) 59.0 40.25 40.8 -Area of Debridement (cm) - Length 11.8 11.5 10.2 -Area of Debridement (cm) - Width 5 3.5 4 -Total Square (Area) (cm) 59.0 40.25 40.8 -Tunneling Yes Yes Yes -Tunneling Position (O'clock) 6 6 6 -Tunneling Distance (cm) 5 4.5 2.6 -Undermining/Tunneling No No No -Circular Undermining No No No -Wound/Ulcer Outcome Not Healed Not Healed Not Healed -Ulcer Cleansing Rinsed/ Rinsed/ Irrigated with Irrigated with Saline Saline -Foul Odor after Cleansing No No No -Bioengineered Tissue No No No -Bleeding Controlled with Pressure Pressure Pressure -Offloading No No No -Treatment Response Procedure Procedure Procedure Tolerated Well Tolerated Well Tolerated Well -Debridement - Subq, 1st 20sq cm Yes Yes Yes -Debridement, SubQ, ea addt'l 20sq cm 2 2 2 or part thereof Pain Scale: 0-10 Numeric Is Patient Pain Free? Yes Yes Yes 07/05/20 15:26 Wound Center Nurse 2 #1- L GROIN/BUTTOCK POST OP -Time 15:32 -Correct Patient Yes -Correct Side, Site, Position Yes -Correct Procedure Yes -Procedure Performed Yes -Type of Procedure Debridement -Clinical Debridement Subcutaneous -Tissue Removed Subcutaneous -Post Debridement (cm) - Length 10.5 -Post Debridement (cm) - Width 4 -Post Debridement (cm) - Depth 0.1 -Total Square (Post) (cm) 42.0 -Area of Debridement (cm) - Length 10.5 -Area of Debridement (cm) - Width 4 -Total Square (Area) (cm) 42.0 -Tunneling No -Tunneling Position (O'clock) -Tunneling Distance (cm) -Undermining/Tunneling No -Circular Undermining No -Wound/Ulcer Outcome Not Healed -Ulcer Cleansing Rinsed/ Irrigated with Saline -Foul Odor after Cleansing No -Bioengineered Tissue No -Bleeding Controlled with Pressure -Offloading No -Treatment Response Procedure Tolerated Well -Debridement - Subq, 1st 20sq cm Yes -Debridement, SubQ, ea addt'l 20sq cm 2 or part thereof Pain Scale: 0-10 Numeric Is Patient Pain Free? Yes - Nurse 3 - General Ulcer D/C NN Start: 06/13/20 08:47 Freq: Status: Active Protocol: Activity Type Activity Date Activity User E-Sign Co-Sign Detail Recorded Client Recorded Date Recorded By Document 06/13/20 09:36 KR [id number] 06/13/20 09:36 KR Document 06/20/20 09:21 KR [id number] 06/20/20 09:21 KR Document 06/28/20 16:42 PL [id number] 06/28/20 16:43 PL Document 07/05/20 15:42 [facility] [id number] 07/05/20 15:43 [facility] 06/13/20 06/20/20 06/28/20 09:36 09:21 16:42 Wound Care Nurse 3 #1- L GROIN/BUTTOCK POST OP -Ulcer Cleansing Rinsed/ Rinsed/ Rinsed/ Irrigated with Irrigated with Irrigated with Saline Saline Saline -Foul Odor after Cleansing No No -Primary Dressing Applied Aquacel Extra Aquacel AG 4x4 Aquacel AG 4x4 -Other Dressing ABD -Primary Dressing Covered/Secured with Dry Gauze, Dry Gauze, Secured with Secured with Secured with Tape Tape Tape -Other Covering -Aquacel Extra 1 -Aquacel AG 4x4 1 1 Treatment Response Pain Scale: 0-10 Numeric Is Patient Pain Free? Yes Yes WC - Visit Discharge Discharge Condition Stable Stable Stable Ambulatory Status Ambulatory Ambulatory Ambulatory Transportation Private Auto Private Auto Private Auto Accompanied by Clinical Summary of Care Provided Yes Facility Type Home Health Orders Sent Yes 07/05/20 15:42 Wound Care Nurse 3 #1- L GROIN/BUTTOCK POST OP -Ulcer Cleansing Rinsed/ Irrigated with Saline -Foul Odor after Cleansing No -Primary Dressing Applied Aquacel AG 4x4 -Other Dressing -Primary Dressing Covered/Secured with Secured with Tape,Other -Other Covering abd -Aquacel Extra -Aquacel AG 4x4 1 Treatment Response Procedure Tolerated Well Pain Scale: 0-10 Numeric Is Patient Pain Free? WC - Visit Discharge Discharge Condition Stable Ambulatory Status Ambulatory Transportation Private Auto Accompanied by Clinical Summary of Care Provided Facility Type Home Health Orders Sent Wound debrided: Left groin ulcer Laterality: Left Type of Debridement: Excisional debridement Anesthesia Used: 5% Lidocaine Gel Depth: Down to and including healthy tissue and in the subcutaneous layer Percentage of wound debrided: 100 Instrument Used: 7mm curette Tissue Removed: Subcutaneous tissue and slough Severity: Fat Layer Exposed Amount of bleeding with debridement: Mild Bleeding Controlled with: Pressure Patient tolerated procedure: Patient tolerated procedure well Assessment/Plan Assessment/Plan (1) Ulcer of left groin with fat layer exposed: CODE(S): L98.492 - Non-pressure chronic ulcer of skin of other sites with fat layer exposed (2) Infection of scrotum: CODE(S): N49.2 - Inflammatory disorders of scrotum (3) Acute blood loss anemia: CODE(S): D62 - Acute posthemorrhagic anemia (4) Anemia of chronic disease: CODE(S): D63.8 - Anemia in other chronic diseases classified elsewhere (5) Hidradenitis suppurativa of anus: CODE(S): L73.2 - Hidradenitis suppurativa (6) Diabetes type 2, uncontrolled: CODE(S): E11.65 - Type 2 diabetes mellitus with hyperglycemia (7) Tobacco dependence syndrome: CODE(S): F17.200 - Nicotine dependence, unspecified, uncomplicated PLAN: Wound care - Aquacel-Ag? daily to the left groin ulcer. At the tunneling at 6 o'clock, will place silver in that area. Cover with dry gauze or ABD.? Due to the increase in his drainage of his hidradenitis, he can use a handheld shower to rinse his groin and perineal area.?Wound culture obtained today, 07/05/20 due to the color of his left groin ulcer and the increased pain he is having there.? Depending on the results of the culture, it may necessitate the need for antibiotic therapy. Ultrasound of his his left lower extremity ordered and done on 04/15/2020.? It showed there was no evidence of left lower extremity deep vein thrombosis.? Valves are competent and compressible.? He will wear Tubigrip for compression.? Instructed him to keep legs elevated when sitting.? Instructed him to avoid standing for long periods of time.? Operative culture shows Enterococcus faecalis and Streptococcus group F, Anaerobic cocci and Prevotella bivia.? He completed the Linezolid and the Flagyl for the anaerobes.? He was hospitalized 05/19-05/20/20 for Acute blood loss anemia.? He received 2 units of PRBCs for a Hgb 5.6.? Repeat Hgb 9.4 from 05/25/20. Wound Culture from 05/20/20 positive for Serratia marcescens, E coli, Streptococcus group F, Anaerobic cocci and Prevotella disiens.? He was placed on Levaquin and Flagyl.?? EGD 05/26/20, patient states he has an ulcer which is being treated medically.? He is scheduled to have a colonoscopy soon. He went to the ED on 05/29 for fevers.? They cultured his left groin ulcer and it showed Ecoli, Klebsiella pneumoniae, Serratia marcenscens, Streptococcus constellatus, Staphylococcus peudintermedia.? He was placed on levaquin and Flagyl.? Continue the Levaquin and he finished Flagyl. ?Prealbumin from 03/23/20 was 8.2.? Encourage nutritional supplementation with protein to help the healing process. Discussed this at length with both the patient and his . He has been drinking Boost.? HgbA1c from 03/11/20 was 8.8.? If a skin graft is needed in the future, his HgbA1c needs to be less than 8.? Followup two weeks due to the holiday next week.
== END 2020-07-11 23:59 ==
LOC: WC 15:15
PROVIDERS: PCP Nurse Practitioner; Referring Provider Nurse Practitioner Family; Visit Provider Surgery
DX: L73.2 Hidradenitis suppurativa (principal); L98.492 Non-pressure chronic ulcer of skin of other sites with fat layer exposed; M54.9 Dorsalgia, unspecified; N50.89 Other specified disorders of the male genital organs; N49.2 Inflammatory disorders of scrotum; E11.9 Type 2 diabetes mellitus without complications; F17.200 Nicotine dependence, unspecified, uncomplicated
CPT/HCPCS: 11042; 11045; 71046; 80053; 82150; 83690; 85025; 87070; 87075; 87077; 87186; 87205

== ENCOUNTER → 2020-07-18 21:31 | Outpatient (CLI) | payer OTHER, SELFPAY ==
[2020-07-18 08:38] VITALS: BMI 22.9
[2020-07-18 21:54] LABS: Absolute Lymphocyte Count 2.89 X10^3/uL (0.83-4.51); Absolute Neutrophil Count 6.9 X10^3/uL (2.0-7.7); Basophil# 0.06 X10^3/uL; Basophil% 0.6 % (0-1); Eosinophils% 1.9 % (0-5); Hematocrit 33.1 % (40-54); Hemoglobin 9.9 g/dL (13.0-16.5); Lymphocyte # 2.89 X10^3/ul (0.83-4.51); Lymphocyte % 26.8 % (19-41); Mean Corp Hgb Conc 29.9 g/dL (32-36); Mean Corpuscular Hgb 24.9 pg (27.0-32.0); Mean Corpuscular Volume 83.4 fL (80-94); Mean Platelet Vol. 9.8 fl (6.2-12.0); Monocyte# 0.71 X10^3/uL; Monocyte% 6.6 % (0-10); NRBC Flagged by Analyzer 0 % (0-5); Neutrophil # 6.87 X10^3/uL (2.7-7.7); Neutrophil % 63.6 % (47-70); Platelet Count 341 K/mm3 (150-450); RBC Distribution Width CV 16.2 % (11.6-14.6); RBC Distribution Width SD 48.5 fl (35.1-43.9); Red Blood Count 3.97 M/mm3 (4.6-6.2); White Blood Count 10.8 K/mm3 (4.4-11.0)
[2020-07-18 22:14] LABS: Vitamin B12 337 pg/mL (211-911)
[2020-07-18 22:17] LABS: Hemoglobin A1c 7.8 % (3.8-5.6)
[2020-07-18 22:21] LABS: ALB/GLOB Ratio 0.4 RATIO (0.9-2.4); AST(SGOT) 9 U/L (15-37); Alanine Aminotransfer ALT/SGPT 10 U/L (16-61); Albumin, Serum 2.4 g/dL (3.2-5.0); Alkaline Phosphatase 99 U/L (45-117); Anion Gap 9 (5-15); BUN 8 mg/dL (7-18); Calcium,Total 8.8 mg/dL (8.5-10.1); Chloride 104 mmol/L (98-107); EST Glomerular Filtration Rate 82 mL/min (>60); Est Glom Filt Rate - Afr Amer 99 mL/min (>60); Ferritin 128 ng/mL (26-388); Globulin 5.4 g/dL (2.2-4.2); Glucose 159 mg/dL (74-106); Iron 31 ug/dL (65-175); Iron Binding Capacity,Total 183 ug/dL (250-450); Potassium 4.1 mmol/L (3.5-5.1); Protein, Total 7.8 g/dL (6.4-8.2); Sodium Level 139 mmol/L (136-145)
== END ==
PROVIDERS: PCP Nurse Practitioner; Referring Provider Nurse Practitioner; Visit Provider Nurse Practitioner
DX: D62 Acute posthemorrhagic anemia (principal); D63.8 Anemia in other chronic diseases classified elsewhere; E53.8 Deficiency of other specified B group vitamins; E11.65 Type 2 diabetes mellitus with hyperglycemia
CPT/HCPCS: 80053; 82607; 82728; 83036; 83540; 83550; 85025

== ENCOUNTER → 2020-07-27 15:02 | Outpatient (CLI) | payer OTHER, SELFPAY ==
[2020-07-25 08:36] VITALS: BMI 22.9
[2020-07-27 15:18] VITALS: BP 171/88; PULSE 91; RESP 18; TEMP 37.1; O2SAT 99; BMI 22.9
[2020-07-27] MEDS: 0.9% NaCl Peripheral Flush Adult/Peds IV (15:23)
[2020-07-27] MEDS: 0.9% NaCl IVPB Med Flush (250 mL) 15 ML IV (15:25)
[2020-07-27 16:18] VITALS: BP 182/71; PULSE 88
== END ==
PROVIDERS: PCP Nurse Practitioner; Referring Provider Nurse Practitioner; Visit Provider Nurse Practitioner
DX: D64.9 Anemia, unspecified (principal); E46 Unspecified protein-calorie malnutrition
CPT/HCPCS: 96365; J1756; J7050; A4216

== ENCOUNTER → 2020-07-29 14:57 | Outpatient (CLI) | payer OTHER, SELFPAY ==
[2020-07-25 08:36] VITALS: BMI 22.9
[2020-07-27 15:18] VITALS: BMI 22.9
[2020-07-29 15:06] VITALS: BP 168/91; PULSE 96; RESP 16; TEMP 36.6; O2SAT 99; BMI 22.9
[2020-07-29] MEDS: 0.9% NaCl Peripheral Flush Adult/Peds IV (15:10)
[2020-07-29] MEDS: 0.9% NaCl IVPB Med Flush (250 mL) 15 ML IV (15:11)
[2020-07-29 16:00] VITALS: BP 181/72; PULSE 77; RESP 16; TEMP 36.8; O2SAT 99
== END ==
PROVIDERS: PCP Nurse Practitioner; Referring Provider Nurse Practitioner; Visit Provider Nurse Practitioner
DX: D64.9 Anemia, unspecified (principal)
CPT/HCPCS: 96365; J1756; J7050; A4216

== ENCOUNTER 2020-08-01 08:45 | Outpatient (RCR) | payer OTHER, SELFPAY ==
[2020-07-06 13:47] VITALS: BMI 22.9
[2020-07-12 00:28] VITALS: BP 172/80; PULSE 94; RESP 18; TEMP 36.2
[2020-07-18 08:38] VITALS: BP 166/61; PULSE 83; RESP 16; TEMP 36.8; BMI 22.9
--- NOTE | 2020-07-18 15:46 | PN.PCM_ITS ---
History of Present Illness Date of Service: 07/18/20 Chief Complaint: Nonhealing hidradenitis ulcer left inguinal, perineal, and base of scrotum. History of Wound: Surgery 03/22/20 - 1. Surgical preparation left inguinal area with excision hidradenitis (315 cm2 total wound). 2. Surgical preparation perineal area with excision hidradenitis (315 cm2 total wound). 3. Surgical preparation base left scrotum with incision and drainage and excision hidradenitis (315 cm2 total wound). Wound care - [facility]. Wound culture from 07/05/20 showed Methicillin resistant Staphylococcus haemolyticus, Corynebacterium striatum, and Prevotella bivia. He was started on Doxycycline and Flagyl. He went to the ED on 05/29 for fevers. They cultured his left groin ulcer and it showed Ecoli, Klebsiella pneumoniae, Serratia marcenscens, Streptococcus constellatus, Staphylococcus peudintermedia. He continued the Levaquin and Flagyl and has completed them. Wound culture 05/20/20- Serratia marcenscens, Escherichia coli, Streptococcus group F, Anaerobic cocci, Prevotella disiens. He was started on Levaquin and Flagyl and has completed them. After speaking with Dr. Palmer, the Strep group F was covered by the Levaquin. Operative culture from 03/22/20 - Enterococcus faecalis and Streptococcus group F, Anaerobic cocci and Prevotella bivia. He was treated with Linezolid and Flagyl and has completed them. He was hospitalized on 05/19/20 and his Hgb was 5.6. He received PRBC. EGD was done on 05/26/20. According to the patient he has a gastric ulcer and is being treated medically. He is scheduled to have a colonoscopy as well. Pathology - hidradenitis. Prealbumin from 03/23/20 was 8.2. Encourage nutritional supplementation with protein to help the healing process. HgbA1c from 03/11/20 was 8.8. Ultrasound of his his left lower extremity ordered and done 04/15/2020. It showed there was no evidence of left lower extremity deep vein thrombosis. Valves are competent and compressible. He will wear Tubigrip for compression. Instructed him to keep legs elevated when sitting. Instructed him to avoid standing for long periods of time. Today he denies fever. His appetite has not been good. Encouraged protein supplementation. Progress of Wound: Improved. Objective Data Objective Data Vital Signs: Vital Signs Temp Pulse Resp BP 98.3 F 83 16 166/61 H 07/18/20 08:38 07/18/20 08:38 07/18/20 08:38 07/18/20 08:38 Oxygen Delivery Method Room Air Weight: 161 lb Body Mass Index (BMI) 22.9 Charges/Coding Procedures Integumentary 111xxx-113xx: [id number] Ayla subq tissue 20 sq cm/< ( ICD-10 - L98.492, N50.89, L73.2, E11.65, D62, D63.8, Z79.899, F17.200) Add On Codes: 82537 Ayla subq tissue add-on (ICD-10 - L98.492, N50.89, L73.2, E11.65, D62, D63.8, Z79.899, F17.200) Debridement Note Debridement Note Post-Debridement Measurements and Additional Note: Post-Debridement Measurements/Treatment - Nurse 1 - General Ulcer Assessment Start: 07/18/20 08:38 Freq: Status: Active Protocol: BEKA.PADMINI Activity Type Activity Date Activity User E-Sign Co-Sign Detail Recorded Client Recorded Date Recorded By Document 07/18/20 08:38 [facility] [id number] 07/18/20 08:44 [facility] 07/18/20 08:38 - Today's Visit Information Type of service Follow-up Visit (Physician/[employer] ) Arrival Mode Ambulatory Transfer Assistance None Accompanied by Patient Identification Verified (Name & Yes ) Patient Requires Transmission-Based No Precautions Height and Weight Body Mass Index (BMI) 22.9 BMI Classification Normal Vital Signs Temperature (97.8 F-99.1 F) 98.3 F Temperature Source Temporal Pulse Rate (60-100) 83 Pulse Location Monitor Respiratory Rate (12-18) 16 Respiratory rate source Observation Oxygen Delivery Method Room Air Blood Pressure (90/60-120/80) 166/61 H Blood Pressure Mean (mm Hg) 96 Source Monitor Position Sitting Blood Pressure Location Right Arm History Since Last Visit- (Skip if this is Patient's initial visit) Have you changed medications since your No last visit? Any new allergies or adverse reactions No Had a fall/change in ADL's that may No increase risk of falls Signs or symptoms of abuse and/or No neglect since last visit Have you been in the hospital since your No last visit? Has dressing in place as prescribed Yes Has compression in place as prescribed N/A Has offloadiing in place as prescribed N/A Experienced any changes in pain level or No management Left Footwear Regular Shoe Right Footwear Regular Shoe Pain Scale: 0-10 Numeric Is Patient Pain Free? Yes BEKA - Nurse 1 - General Ulcer Measurement Start: 07/18/20 08:38 Freq: Status: Active Protocol: Activity Type Activity Date Activity User E-Sign Co-Sign Detail Recorded Client Recorded Date Recorded By Document 07/18/20 08:38 [facility] [id number] 07/18/20 08:44 [facility] 07/18/20 08:38 Wound Center Nurse 1 #1- L GROIN/BUTTOCK POST OP -Combined with other wound No -Current Size (cm) - Length 9.5 -Current Size (cm) - Width 3.5 -Current Size (cm) - Depth 0.2 -Total Square Cm 33.25 -Photo Taken No -Epithelialization Small 1-33% -Tunneling Yes -Tunneling Position (O'clock) 6 -Tunneling Distance (cm) 0.3 -Undermining/Tunneling No -Circular Undermining No -Exudate Amt Large -Exudate Type Serosanguineous -Wound Margin Distinct, Outline Attached -Granulation Amt Large (67-100%) -Granulation Quality Red -Slough/Fibrin No -Necrosis Amt None Present (0 %) -Texture ([place]-wound Skin Appearance) Assessed, Scarring -Moisture ([place]-wound Skin Appearance) Assessed -Color ([place]-wound Skin Appearance) Assessed -Temperature ([place]-wound Skin No Abnormality Appearance) (Pt Warm) -Tenderness on Palpation ([place]-wound No Skin Appearance) -Ulcer Cleansing Rinsed/ Irrigated with Saline -Foul Odor after Cleansing No -Anesthetic Used 4% Lidocaine Solution BEKA - Nurse 2 - General Ulcer CM Notes Start: 07/18/20 08:38 Freq: Status: Active Protocol: Activity Type Activity Date Activity User E-Sign Co-Sign Detail Recorded Client Recorded Date Recorded By Document 07/18/20 08:55 LIZETTE [id number] 07/18/20 08:56 LIZETTE 07/18/20 08:55 Wound Center Nurse 2 -Time 08:55 -Correct Patient Yes -Correct Side, Site, Position Yes -Correct Procedure Yes -Procedure Performed Yes -Type of Procedure Debridement -Clinical Debridement Subcutaneous -Tissue Removed Subcutaneous -Post Debridement (cm) - Length 9.5 -Post Debridement (cm) - Width 3.6 -Post Debridement (cm) - Depth 0.3 -Total Square (Post) (cm) 34.20 -Area of Debridement (cm) - Length 9.5 -Area of Debridement (cm) - Width 3.6 -Total Square (Area) (cm) 34.20 -Tunneling No -Undermining/Tunneling No -Circular Undermining No -Wound/Ulcer Outcome Not Healed -Ulcer Cleansing Rinsed/ Irrigated with Saline -Foul Odor after Cleansing No -Bioengineered Tissue No -Bleeding Controlled with Pressure -Offloading No -Treatment Response Procedure Tolerated Well -Debridement - Subq, 1st 20sq cm Yes -Debridement, SubQ, ea addt'l 20sq cm 1 or part thereof Pain Scale: 0-10 Numeric Is Patient Pain Free? Yes - Nurse 3 - General Ulcer D/C NN Start: 07/18/20 08:38 Freq: Status: Active Protocol: Activity Type Activity Date Activity User E-Sign Co-Sign Detail Recorded Client Recorded Date Recorded By Document 07/18/20 09:10 [facility] [id number] 07/18/20 09:10 [facility] 07/18/20 09:10 Wound Care Nurse 3 #1- L GROIN/BUTTOCK POST OP -Ulcer Cleansing Rinsed/ Irrigated with Saline -Foul Odor after Cleansing No -Primary Dressing Applied Other -Other Dressing moist to dry -Primary Dressing Covered/Secured with Secured with Tape,Other -Other Covering abd Treatment Response Procedure Tolerated Well Pain Scale: 0-10 Numeric Is Patient Pain Free? Yes - Visit Discharge Discharge Condition Stable Ambulatory Status Ambulatory Transportation Private Auto Accompanied by Facility Type Home Health Additional Wound Wound debrided: #1 Left inguinal, perineal, and base of scrotum Laterality: Left Wound Grade/Stage: 2. Type of Debridement: Excisional debridement Anesthesia Used: 4% Lidocaine Solution Depth: Down to and including healthy tissue and in the subcutaneous layer Percentage of wound debrided: 100 Instrument Used: 5mm curette Tissue Removed: subcutaneous tissue. Severity: Fat Layer Exposed Amount of bleeding with debridement: Mild Bleeding Controlled with: Pressure and Compression and gauze Patient tolerated procedure: Patient tolerated procedure well Assessment/Plan Assessment/Plan (1) Ulcer of left groin with fat layer exposed: CODE(S): L98.492 - Non-pressure chronic ulcer of skin of other sites with fat layer exposed (2) Skin ulcer of scrotum: CODE(S): N50.89 - Other specified disorders of the male genital organs (3) Ulcer of perineum with fat layer exposed: CODE(S): L98.492 - Non-pressure chronic ulcer of skin of other sites with fat layer exposed (4) Hidradenitis suppurativa of anus: CODE(S): L73.2 - Hidradenitis suppurativa (5) Hydradenitis: CODE(S): L73.2 - Hidradenitis suppurativa (6) Tobacco dependence syndrome: CODE(S): F17.200 - Nicotine dependence, unspecified, uncomplicated (7) Diabetes type 2, uncontrolled: CODE(S): E11.65 - Type 2 diabetes mellitus with hyperglycemia (8) Acute blood loss anemia: CODE(S): D62 - Acute posthemorrhagic anemia (9) Anemia of chronic disease: CODE(S): D63.8 - Anemia in other chronic diseases classified elsewhere (10) Infliximab (Remicade) long-term use: CODE(S): Z79.899 - Other [facility] (current) drug therapy PLAN: Continue wound care with Dakin's dressing changes daily. At home he can use a handheld shower to rinse his groin and perineal area when showering and after going to the bathroom. Wound culture from 07/05/20 showed Methicillin resistant Staphylococcus haemolyticus, Corynebacterium striatum, and Prevotella bivia. He was placed on Doxycycline and Flagyl. Ultrasound of his his left lower extremity ordered and done on 04/15/2020. It showed there was no evidence of left lower extremity deep vein thrombosis. Valves are competent and compressible. He will wear Tubigrip for compression. Instructed him to keep legs elevated when sitting. Instructed him to avoid standing for long periods of time. He was hospitalized 05/19-05/20/20 for Acute blood loss anemia. He received 2 units of PRBCs for a Hgb 5.6. Repeat Hgb 9.4 from 05/25/20. EGD 05/26/20, patient states he has an ulcer which is being treated medically. He is scheduled to have a colonoscopy as well. Prealbumin from 03/23/20 was 8.2. Encourage nutritional supplementation with protein to help the healing process. Discussed this at length with both the patient and his . He has been drinking Boost. HgbA1c from 03/11/20 was 8.8. If a skin graft is needed in the future, his HgbA1c needs to be less than 8. He voices understanding. Discussed further surgery with the patient regarding his right inguinal area and the base of his scrotum. His perianal area is stable at the moment. If that area worsens, sometimes a diverting colostomy is needed as well as surgical excision followed by wound care in order for his perianal wounds to heal. He voices understanding. Once healed, the colostomy can be reversed. He states his right side drains intermittently but is not stopping him from activities of daily living at the present time. He is working ok. He would like to wait ideally until the Fall to proceed with surgery. Will continue to observe. He understands that if the right side gets acute infected that needs IV antibiotics in the hospital, then operative intervention would be needed sooner before the Fall. Followup one week.
[2020-07-25 08:36] VITALS: BP 185/61; PULSE 80; RESP 18; TEMP 36.9; BMI 22.9
--- NOTE | 2020-07-25 12:42 | PN.PCM_ITS ---
History of Present Illness Date of Service: 07/25/20 Chief Complaint: Nonhealing hidradenitis ulcer left inguinal, perineal, and base of scrotum. History of Wound: Surgery 03/22/20 - 1. Surgical preparation left inguinal area with excision hidradenitis (315 cm2 total wound). 2. Surgical preparation perineal area with excision hidradenitis (315 cm2 total wound). 3. Surgical preparation base left scrotum with incision and drainage and excision hidradenitis (315 cm2 total wound). Wound care - Dakin's 0.25% moistened gauze daily, Aquacel-Ag wicked into the tunnel at 6 o'clock. Wound culture from 07/05/20 showed Methicillin resistant Staphylococcus haemolyticus, Corynebacterium striatum, and Prevotella bivia. He was started on Doxycycline and Flagyl. He went to the ED on 05/29 for fevers. They cultured his left groin ulcer and it showed Ecoli, Klebsiella pneumoniae, Serratia marcenscens, Streptococcus constellatus, Staphylococcus peudintermedia. He continued the Levaquin and Flagyl and has completed them. Wound culture 05/20/20- Serratia marcenscens, Escherichia coli, Streptococcus group F, Anaerobic cocci, Prevotella disiens. He was started on Levaquin and Flagyl and has completed them. After speaking with Dr. Palmer, the Strep group F was covered by the Levaquin. Operative culture from 03/22/20 - Enterococcus faecalis and Streptococcus group F, Anaerobic cocci and Prevotella bivia. He was treated with Linezolid and Flagyl and has completed them. He was hospitalized on 05/19/20 and his Hgb was 5.6. He received PRBC. EGD was done on 05/26/20. According to the patient he has a gastric ulcer and is being treated medically. He is scheduled to have a colonoscopy as well. Pathology - hidradenitis. Prealbumin from 03/23/20 was 8.2. Encourage nutritional supplementation with protein to help the healing process. HgbA1c from 03/11/20 was 8.8. Ultrasound of his his left lower extremity ordered and done 04/15/2020. It showed there was no evidence of left lower extremity deep vein thrombosis. Valves are competent and compressible. He will wear Tubigrip for compression. Instructed him to keep legs elevated when sitting. Instructed him to avoid standing for long periods of time. Today he denies fever. His appetite has not been good. Encouraged protein supplementation. Progress of Wound: Improved. Objective Data Objective Data Vital Signs: Vital Signs Temp Pulse Resp BP 98.4 F 80 18 185/61 H 07/25/20 08:36 07/25/20 08:36 07/25/20 08:36 07/25/20 08:36 Oxygen Delivery Method Room Air Weight: 161 lb Body Mass Index (BMI) 22.9 Charges/Coding Procedures Integumentary 111xxx-113xx: [id number] Ayla subq tissue 20 sq cm/< Physical Exam Const alert and oriented x3 General Appearance: cooperative HEENT normocephalic Head and Scalp: atraumatic Eyes PERRL Lymph Lymphatic: no lymphedema noted Resp normal respiratory effort Cardio regular rate GI Palpation: soft Extremity normal capillary refill and no calf tenderness Skin Wound Narrative: Left groin ulcer is beefy pink. Ulcer bed is improved since restarting to use Dakin's moistened gauze dressing changes. Continues to have a tunnel at 6 o'clock. Neuro CN's II-XII intact bilaterally Cranial Nerves: CN normal except as noted Psych Appearance: grossly normal Debridement Note Debridement Note Post-Debridement Measurements and Additional Note: Post-Debridement Measurements/Treatment - Nurse 1 - General Ulcer Assessment Start: 07/18/20 08:38 Freq: Status: Active Protocol: WC.LOWEXT Activity Type Activity Date Activity User E-Sign Co-Sign Detail Recorded Client Recorded Date Recorded By Document 07/18/20 08:38 [facility] [id number] 07/18/20 08:44 [facility] Document 07/25/20 08:36 [facility] [id number] 07/25/20 08:45 [facility] 07/18/20 07/25/20 08:38 08:36 - Today's Visit Information Type of service Follow-up Visit Follow-up Visit (Physician/YACHT MASTER (Physician/YACHT MASTER ) ) Arrival Mode Ambulatory Ambulatory Transfer Assistance None None Accompanied by Patient Identification Verified (Name & Yes Yes ) Patient Requires Transmission-Based No No Precautions Height and Weight Body Mass Index (BMI) 22.9 22.9 BMI Classification Normal Normal Vital Signs Temperature (97.8 F-99.1 F) 98.3 F 98.4 F Temperature Source Temporal Temporal Pulse Rate (60-100) 83 80 Pulse Location Monitor Monitor Respiratory Rate (12-18) 16 18 Respiratory rate source Observation Observation Oxygen Delivery Method Room Air Room Air Blood Pressure (90/60-120/80) 166/61 H 185/61 H Blood Pressure Mean (mm Hg) 96 102 Source Monitor Monitor Position Sitting Sitting Blood Pressure Location Right Arm Left Arm History Since Last Visit- (Skip if this is Patient's initial visit) Have you changed medications since your No No last visit? Any new allergies or adverse reactions No No Had a fall/change in ADL's that may No No increase risk of falls Signs or symptoms of abuse and/or No No neglect since last visit Have you been in the hospital since your No No last visit? Has dressing in place as prescribed Yes Yes Has compression in place as prescribed N/A N/A Has offloadiing in place as prescribed N/A N/A Experienced any changes in pain level or No No management Left Footwear Regular Shoe Regular Shoe Right Footwear Regular Shoe Regular Shoe Pain Scale: 0-10 Numeric Is Patient Pain Free? Yes Yes - Nurse 1 - General Ulcer Measurement Start: 07/18/20 08:38 Freq: Status: Active Protocol: Activity Type Activity Date Activity User E-Sign Co-Sign Detail Recorded Client Recorded Date Recorded By Document 07/18/20 08:38 [facility] [id number] 07/18/20 08:44 [facility] Document 07/25/20 08:36 [facility] [id number] 07/25/20 08:45 [facility] 07/18/20 07/25/20 08:38 08:36 Wound Center Nurse 1 #1- L GROIN/BUTTOCK POST OP -Combined with other wound No No -Current Size (cm) - Length 9.5 8.8 -Current Size (cm) - Width 3.5 2.2 -Current Size (cm) - Depth 0.2 0.1 -Total Square Cm 33.25 19.36 -Photo Taken No No -Epithelialization Small 1-33% Small 1-33% -Tunneling Yes No -Tunneling Position (O'clock) 6 -Tunneling Distance (cm) 0.3 -Undermining/Tunneling No No -Circular Undermining No No -Exudate Amt Large Large -Exudate Type Serosanguineous Yellow/Green -Wound Margin Distinct, Distinct, Outline Outline Attached Attached -Granulation Amt Large (67-100%) Large (67-100%) -Granulation Quality Red Red -Slough/Fibrin No No -Necrosis Amt None Present (0 None Present (0 %) %) -Texture ([place]-wound Skin Appearance) Assessed, Assessed, Scarring Scarring -Moisture ([place]-wound Skin Appearance) Assessed Assessed -Color ([place]-wound Skin Appearance) Assessed Assessed -Temperature ([place]-wound Skin No Abnormality No Abnormality Appearance) (Pt Warm) (Pt Warm) -Tenderness on Palpation ([place]-wound No No Skin Appearance) -Ulcer Cleansing Rinsed/ Rinsed/ Irrigated with Irrigated with Saline Saline -Foul Odor after Cleansing No No -Anesthetic Used 4% Lidocaine 4% Lidocaine Solution Solution WC - Nurse 2 - General Ulcer CM Notes Start: 07/18/20 08:38 Freq: Status: Active Protocol: Activity Type Activity Date Activity User E-Sign Co-Sign Detail Recorded Client Recorded Date Recorded By Document 07/18/20 08:55 [id number] 07/18/20 08:56 Document 07/25/20 09:48 PL [id number] 07/25/20 09:50 PL 07/18/20 07/25/20 08:55 09:48 Wound Center Nurse 2 #1- L GROIN/BUTTOCK POST OP -Time 08:55 09:02 -Correct Patient Yes Yes -Correct Side, Site, Position Yes Yes -Correct Procedure Yes Yes -Procedure Performed Yes Yes -Type of Procedure Debridement Debridement -Clinical Debridement Subcutaneous Subcutaneous -Tissue Removed Subcutaneous Subcutaneous -Post Debridement (cm) - Length 9.5 9 -Post Debridement (cm) - Width 3.6 3.4 -Post Debridement (cm) - Depth 0.3 0.3 -Total Square (Post) (cm) 34.20 30.6 -Area of Debridement (cm) - Length 9.5 9 -Area of Debridement (cm) - Width 3.6 3.4 -Total Square (Area) (cm) 34.20 30.6 -Tunneling No Yes -Tunneling Position (O'clock) 6 -Tunneling Distance (cm) 4.0 -Undermining/Tunneling No No -Circular Undermining No No -Wound/Ulcer Outcome Not Healed Not Healed -Ulcer Cleansing Rinsed/ Rinsed/ Irrigated with Irrigated with Saline Saline -Foul Odor after Cleansing No No -Bioengineered Tissue No No -Bleeding Controlled with Pressure Pressure -Offloading No -Treatment Response Procedure Procedure Tolerated Well Tolerated Well -Debridement - Subq, 1st 20sq cm Yes Yes -Debridement, SubQ, ea addt'l 20sq cm 1 1 or part thereof Pain Scale: 0-10 Numeric Is Patient Pain Free? Yes Yes - Nurse 3 - General Ulcer D/C NN Start: 07/18/20 08:38 Freq: Status: Active Protocol: Activity Type Activity Date Activity User E-Sign Co-Sign Detail Recorded Client Recorded Date Recorded By Document 07/18/20 09:10 [facility] [id number] 07/18/20 09:10 [facility] 07/18/20 09:10 Wound Care Nurse 3 #1- L GROIN/BUTTOCK POST OP -Ulcer Cleansing Rinsed/ Irrigated with Saline -Foul Odor after Cleansing No -Primary Dressing Applied Other -Other Dressing moist to dry -Primary Dressing Covered/Secured with Secured with Tape,Other -Other Covering abd Treatment Response Procedure Tolerated Well Pain Scale: 0-10 Numeric Is Patient Pain Free? Yes - Visit Discharge Discharge Condition Stable Ambulatory Status Ambulatory Transportation Private Auto Accompanied by Facility Type Home Health Wound debrided: Groin ulcer Laterality: Left Type of Debridement: Excisional debridement Anesthesia Used: 5% Lidocaine Gel Depth: Down to and including healthy tissue and in the subcutaneous layer Percentage of wound debrided: 100 Instrument Used: 7mm curette Tissue Removed: Subcutaneous tissue and slough Severity: Fat Layer Exposed Amount of bleeding with debridement: Mild Bleeding Controlled with: Compression and gauze Patient tolerated procedure: Patient tolerated procedure well Assessment/Plan Assessment/Plan (1) Ulcer of left groin with fat layer exposed: CODE(S): L98.492 - Non-pressure chronic ulcer of skin of other sites with fat layer exposed (2) Skin ulcer of scrotum: CODE(S): N50.89 - Other specified disorders of the male genital organs (3) Ulcer of perineum with fat layer exposed: CODE(S): L98.492 - Non-pressure chronic ulcer of skin of other sites with fat layer exposed (4) Hidradenitis suppurativa of anus: CODE(S): L73.2 - Hidradenitis suppurativa (5) Hydradenitis: CODE(S): L73.2 - Hidradenitis suppurativa (6) Tobacco dependence syndrome: CODE(S): F17.200 - Nicotine dependence, unspecified, uncomplicated (7) Diabetes mellitus type 2, uncontrolled, with complications: CODE(S): E11.8 - Type 2 diabetes mellitus with unspecified complications; E11.65 - Type 2 diabetes mellitus with hyperglycemia (8) Acute blood loss anemia: CODE(S): D62 - Acute posthemorrhagic anemia (9) Anemia of chronic disease: CODE(S): D63.8 - Anemia in other chronic diseases classified elsewhere (10) Infliximab (Remicade) long-term use: CODE(S): Z79.899 - Other extermination supervisor (current) drug therapy PLAN: Continue wound care with Dakin's moistened gauze, with Aquacel-Ag wicked into the tunnel at 6 o'clock, covered by ABD dressing changes daily. At home he can use a handheld shower to rinse his groin and perineal area when showering and after going to the bathroom. Wound culture from 07/05/20 showed Methicillin resistant Staphylococcus haemolyticus, Corynebacterium striatum, and Prevotella bivia. He was placed on Doxycycline and Flagyl. He has completed the Flagyl. Ultrasound of his his left lower extremity ordered and done on 04/15/2020. It showed there was no evidence of left lower extremity deep vein thrombosis. Valves are competent and compressible. He will wear Tubigrip for compression. Instructed him to keep legs elevated when sitting. Instructed him to avoid standing for long periods of time. He was hospitalized 05/19-05/20/20 for Acute blood loss anemia. He received 2 units of PRBCs for a Hgb 5.6. Repeat Hgb 9.4 from 05/25/20. Repeat Hgb 9.9 from 07/18/20. EGD 05/26/20, patient states he has an ulcer which is being treated medically. He is scheduled to have a colonoscopy as well. Prealbumin from 03/23/20 was 8.2. Encourage nutritional supplementation with protein to help the healing process. Discussed this at length with both the patient and his . He has been drinking Boost. HgbA1c from 03/11/20 was 8.8. If a skin graft is needed in the future, his HgbA1c needs to be less than 8. He voices understanding. Discussed further surgery with the patient regarding his right inguinal area and the base of his scrotum. His perianal area is stable at the moment. If that area worsens, sometimes a diverting colostomy is needed as well as surgical excision followed by wound care in order for his perianal wounds to heal. He voices understanding. Once healed, the colostomy can be reversed. He states his right side drains intermittently but is not stopping him from activities of daily living at the present time. He is working ok. He would like to wait ideally until the Fall to proceed with surgery. Will continue to observe. He understands that if the right side gets acute infected that needs IV antibiotics in the hospital, then operative intervention would be needed sooner before the Fall. Followup one week.
[2020-08-01 08:42] VITALS: BP 185/74; PULSE 73; TEMP 36.3; BMI 22.9
--- NOTE | 2020-08-01 10:06 | PCM.WC.PN ---
History of Present Illness Date of Service: 08/01/20 Chief Complaint: Nonhealing hidradenitis ulcer left inguinal, perineal, and base of scrotum. History of Wound: Surgery 03/22/20 - 1. Surgical preparation left inguinal area with excision hidradenitis (315 cm2 total wound). 2. Surgical preparation perineal area with excision hidradenitis (315 cm2 total wound). 3. Surgical preparation base left scrotum with incision and drainage and excision hidradenitis (315 cm2 total wound). Wound care - Dakin's 0.25% moistened gauze daily, Aquacel-Ag wicked into the tunnel at 6 o'clock. Wound culture from 07/05/20 showed Methicillin resistant Staphylococcus haemolyticus, Corynebacterium striatum, and Prevotella bivia. He was started on Doxycycline and Flagyl. He went to the ED on 05/29 for fevers. They cultured his left groin ulcer and it showed Ecoli, Klebsiella pneumoniae, Serratia marcenscens, Streptococcus constellatus, Staphylococcus peudintermedia. He continued the Levaquin and Flagyl and has completed them. Wound culture 05/20/20- Serratia marcenscens, Escherichia coli, Streptococcus group F, Anaerobic cocci, Prevotella disiens. He was started on Levaquin and Flagyl and has completed them. After speaking with Dr. Palmer, the Strep group F was covered by the Levaquin. Operative culture from 03/22/20 - Enterococcus faecalis and Streptococcus group F, Anaerobic cocci and Prevotella bivia. He was treated with Linezolid and Flagyl and has completed them. He was hospitalized on 05/19/20 and his Hgb was 5.6. He received PRBC. EGD was done on 05/26/20. According to the patient he has a gastric ulcer and is being treated medically. He is scheduled to have a colonoscopy as well. Pathology - hidradenitis. Prealbumin from 03/23/20 was 8.2. Encourage nutritional supplementation with protein to help the healing process. HgbA1c from 03/11/20 was 8.8. Ultrasound of his his left lower extremity ordered and done 04/15/2020. It showed there was no evidence of left lower extremity deep vein thrombosis. Valves are competent and compressible. He will wear Tubigrip for compression. Instructed him to keep legs elevated when sitting. Instructed him to avoid standing for long periods of time. Today he denies fever. His appetite has not been good. Encouraged protein supplementation. Progress of Wound: Improved. Objective Data Objective Data Vital Signs: Vital Signs Temp Pulse Resp BP 97.4 F L 73 18 185/74 H 08/01/20 08:42 08/01/20 08:42 07/25/20 08:36 08/01/20 08:42 Oxygen Delivery Method Room Air Weight: 161 lb Body Mass Index (BMI) 22.9 Charges/Coding Procedures Integumentary 111xxx-113xx: 38127 Ayla subq tissue 20 sq cm/< Add On Codes: 59718 Ayla subq tissue add-on (x1) Physical Exam Const alert and oriented x3 General Appearance: cooperative HEENT normocephalic Head and Scalp: atraumatic Eyes PERRL Lymph Lymphatic: no lymphedema noted Resp normal respiratory effort Cardio regular rate GI Palpation: soft Extremity normal capillary refill and no calf tenderness Skin Wound Narrative: Left groin ulcer is beefy pink. He continues to have tunneling at 6 o'clock that needs to be packed. Ulcer is decreasing in size. Neuro CN's II-XII intact bilaterally Psych Appearance: grossly normal Debridement Note Debridement Note Post-Debridement Measurements and Additional Note: Post-Debridement Measurements/Treatment - Nurse 1 - General Ulcer Assessment Start: 07/18/20 08:38 Freq: Status: Active Protocol: BEKA.[email or web address] Activity Type Activity Date Activity User E-Sign Co-Sign Detail Recorded Client Recorded Date Recorded By Document 07/18/20 08:38 [facility] [id number] 07/18/20 08:44 [facility] Document 07/25/20 08:36 [facility] [id number] 07/25/20 08:45 [facility] Document 08/01/20 08:42 KR [id number] 08/01/20 08:44 KR 07/18/20 07/25/20 08/01/20 08:38 08:36 08:42 - Today's Visit Information Type of service Follow-up Visit Follow-up Visit Follow-up Visit (Physician/EDUCATION SITE MANAGER (Physician/EDUCATION SITE MANAGER (Physician/EDUCATION SITE MANAGER ) ) ) Arrival Mode Ambulatory Ambulatory Ambulatory Transfer Assistance None None Accompanied by Patient Identification Verified (Name & Yes Yes Yes ) Patient Requires Transmission-Based No No Precautions Height and Weight Body Mass Index (BMI) 22.9 22.9 22.9 BMI Classification Normal Normal Normal Vital Signs Temperature (97.8 F-99.1 F) 98.3 F 98.4 F 97.4 F L Temperature Source Temporal Temporal Temporal Pulse Rate (60-100) 83 80 73 Pulse Location Monitor Monitor Monitor Respiratory Rate (12-18) 16 18 Respiratory rate source Observation Observation Oxygen Delivery Method Room Air Room Air Blood Pressure (90/60-120/80) 166/61 H 185/61 H 185/74 H Blood Pressure Mean (mm Hg) 96 102 111 Source Monitor Monitor Monitor Position Sitting Sitting Semi-Fowlers Blood Pressure Location Right Arm Left Arm Left Arm History Since Last Visit- (Skip if this is Patient's initial visit) Have you changed medications since your No No No last visit? Any new allergies or adverse reactions No No No Had a fall/change in ADL's that may No No No increase risk of falls Signs or symptoms of abuse and/or No No No neglect since last visit Have you been in the hospital since your No No No last visit? Has dressing in place as prescribed Yes Yes Yes Has compression in place as prescribed N/A N/A N/A Has offloadiing in place as prescribed N/A N/A N/A Experienced any changes in pain level or No No No management Left Footwear Regular Shoe Regular Shoe Regular Shoe Right Footwear Regular Shoe Regular Shoe Regular Shoe Pain Scale: 0-10 Numeric Is Patient Pain Free? Yes Yes Yes WC - Nurse 1 - General Ulcer Measurement Start: 07/18/20 08:38 Freq: Status: Active Protocol: Activity Type Activity Date Activity User E-Sign Co-Sign Detail Recorded Client Recorded Date Recorded By Document 07/18/20 08:38 [facility] [id number] 07/18/20 08:44 [facility] Document 07/25/20 08:36 [facility] [id number] 07/25/20 08:45 BM Document 08/01/20 08:42 KR [id number] 08/01/20 08:44 KR 07/18/20 07/25/20 08/01/20 08:38 08:36 08:42 Wound Center Nurse 1 #1- L GROIN/BUTTOCK POST OP -Combined with other wound No No -Current Size (cm) - Length 9.5 8.8 8.5 -Current Size (cm) - Width 3.5 2.2 3.5 -Current Size (cm) - Depth 0.2 0.1 0.1 -Total Square Cm 33.25 19.36 29.75 -Photo Taken No No -Epithelialization Small 1-33% Small 1-33% -Tunneling Yes No -Tunneling Position (O'clock) 6 6 -Tunneling Distance (cm) 0.3 2.3 -Undermining/Tunneling No No -Circular Undermining No No -Exudate Amt Large Large Medium -Exudate Type Serosanguineous Yellow/Green Serosanguineous -Wound Margin Distinct, Distinct, Distinct, Outline Outline Outline Attached Attached Attached -Granulation Amt Large (67-100%) Large (67-100%) Large (67-100%) -Granulation Quality Red Red Red -Slough/Fibrin No No -Necrosis Amt None Present (0 None Present (0 Small (1-33%) %) %) -Necrotic Tissue Type Adherent Slough -Texture ([place]ola-wound Skin Appearance) Assessed, Assessed, Assessed, Scarring Scarring Scarring -Moisture ([place]-wound Skin Appearance) Assessed Assessed No Abnormality, Assessed -Color ([place]-wound Skin Appearance) Assessed Assessed No Abnormality, Assessed -Temperature ([place]-wound Skin No Abnormality No Abnormality No Abnormality Appearance) (Pt Warm) (Pt Warm) (Pt Warm) -Tenderness on Palpation ([place]-wound No No No Skin Appearance) -Ulcer Cleansing Rinsed/ Rinsed/ Rinsed/ Irrigated with Irrigated with Irrigated with Saline Saline Saline -Foul Odor after Cleansing No No No -Anesthetic Used 4% Lidocaine 4% Lidocaine 5% Lidocaine Solution Solution Gel WC - Nurse 2 - General Ulcer CM Notes Start: 07/18/20 08:38 Freq: Status: Active Protocol: Activity Type Activity Date Activity User E-Sign Co-Sign Detail Recorded Client Recorded Date Recorded By Document 07/18/20 08:55 JF [id number] 07/18/20 08:56 JF Document 07/25/20 09:48 PL [id number] 07/25/20 09:50 PL Document 08/01/20 09:27 JF [id number] 08/01/20 09:29 JF 07/18/20 07/25/20 08/01/20 08:55 09:48 09:27 Wound Center Nurse 2 #1- L GROIN/BUTTOCK POST OP -Time 08:55 09:02 09:27 -Correct Patient Yes Yes Yes -Correct Side, Site, Position Yes Yes Yes -Correct Procedure Yes Yes -Procedure Performed Yes Yes Yes -Type of Procedure Debridement Debridement Debridement -Clinical Debridement Subcutaneous Subcutaneous Subcutaneous -Tissue Removed Subcutaneous Subcutaneous Subcutaneous -Post Debridement (cm) - Length 9.5 9 9 -Post Debridement (cm) - Width 3.6 3.4 2.7 -Post Debridement (cm) - Depth 0.3 0.3 0.2 -Total Square (Post) (cm) 34.20 30.6 24.3 -Area of Debridement (cm) - Length 9.5 9 9 -Area of Debridement (cm) - Width 3.6 3.4 2.7 -Total Square (Area) (cm) 34.20 30.6 24.3 -Tunneling No Yes Yes -Tunneling Position (O'clock) 6 6 -Tunneling Distance (cm) 4.0 3.6 -Undermining/Tunneling No No No -Circular Undermining No No No -Wound/Ulcer Outcome Not Healed Not Healed Not Healed -Ulcer Cleansing Rinsed/ Rinsed/ Rinsed/ Irrigated with Irrigated with Irrigated with Saline Saline Saline -Foul Odor after Cleansing No No No -Bioengineered Tissue No No No -Bleeding Controlled with Pressure Pressure Pressure -Offloading No No -Treatment Response Procedure Procedure Procedure Tolerated Well Tolerated Well Tolerated Well -Debridement - Subq, 1st 20sq cm Yes Yes Yes -Debridement, SubQ, ea addt'l 20sq cm 1 1 1 or part thereof Pain Scale: 0-10 Numeric Is Patient Pain Free? Yes Yes Yes - Nurse 3 - General Ulcer D/C NN Start: 07/18/20 08:38 Freq: Status: Active Protocol: Activity Type Activity Date Activity User E-Sign Co-Sign Detail Recorded Client Recorded Date Recorded By Document 07/18/20 09:10 [facility] [id number] 07/18/20 09:10 [facility] Document 08/01/20 09:38 KR [id number] 08/01/20 09:38 KR 07/18/20 08/01/20 09:10 09:38 Wound Care Nurse 3 #1- L GROIN/BUTTOCK POST OP -Ulcer Cleansing Rinsed/ Rinsed/ Irrigated with Irrigated with Saline Saline -Foul Odor after Cleansing No -Primary Dressing Applied Other Aquacel AG 4x4 -Other Dressing moist to dry -Primary Dressing Covered/Secured with Secured with Dry Gauze, Tape,Other Secured with Tape -Other Covering abd -Aquacel AG 4x4 1 Treatment Response Procedure Tolerated Well Pain Scale: 0-10 Numeric Is Patient Pain Free? Yes Yes WC - Visit Discharge Discharge Condition Stable Stable Ambulatory Status Ambulatory Ambulatory Transportation Private Auto Private Auto Accompanied by Facility Type Home Health Wound debrided: Groin ulcer Laterality: Left Type of Debridement: Excisional debridement Anesthesia Used: 5% Lidocaine Gel Depth: Down to and including healthy tissue and in the subcutaneous layer Percentage of wound debrided: 100 Instrument Used: 5mm curette Tissue Removed: Subcutaneous tissue and slough Severity: Fat Layer Exposed Amount of bleeding with debridement: Mild Bleeding Controlled with: Pressure and Compression and gauze Patient tolerated procedure: Patient tolerated procedure well Assessment/Plan Assessment/Plan (1) Ulcer of perineum with fat layer exposed: CODE(S): L98.492 - Non-pressure chronic ulcer of skin of other sites with fat layer exposed (2) Skin ulcer of scrotum: CODE(S): N50.89 - Other specified disorders of the male genital organs (3) Ulcer of left groin with fat layer exposed: CODE(S): L98.492 - Non-pressure chronic ulcer of skin of other sites with fat layer exposed (4) Hydradenitis: CODE(S): L73.2 - Hidradenitis suppurativa (5) Tobacco dependence syndrome: CODE(S): F17.200 - Nicotine dependence, unspecified, uncomplicated (6) Anemia: CODE(S): D64.9 - Anemia, unspecified (7) Malnutrition: CODE(S): E46 - Unspecified protein-calorie malnutrition QUALIFIERS: Malnutrition type: protein-calorie malnutrition Protein-calorie malnutrition severity: moderate Qualified Code(s): E44.0 - Moderate protein-calorie malnutrition (8) Diabetes type 2, uncontrolled: CODE(S): E11.65 - Type 2 diabetes mellitus with hyperglycemia (9) Infliximab (Remicade) long-term use: CODE(S): Z79.899 - Other intermediate manager (current) drug therapy (10) Infection of scrotum: CODE(S): N49.2 - Inflammatory disorders of scrotum PLAN: Continue wound care with Dakin's moistened gauze, with Aquacel-Ag wicked into the tunnel at 6 o'clock, covered by ABD dressing changes daily. At home he can use a handheld shower to rinse his groin and perineal area when showering and after going to the bathroom. Wound culture from 07/05/20 showed Methicillin resistant Staphylococcus haemolyticus, Corynebacterium striatum, and Prevotella bivia. He was placed on Doxycycline and Flagyl. He has completed the Flagyl. Ultrasound of his his left lower extremity ordered and done on 04/15/2020. It showed there was no evidence of left lower extremity deep vein thrombosis. Valves are competent and compressible. He will wear Tubigrip for compression. Instructed him to keep legs elevated when sitting. Instructed him to avoid standing for long periods of time. He was hospitalized 05/19-05/20/20 for Acute blood loss anemia. He received 2 units of PRBCs for a Hgb 5.6. Repeat Hgb 9.4 from 05/25/20. Repeat Hgb 9.9 from 07/18/20. EGD 05/26/20, patient states he has an ulcer which is being treated medically. He is scheduled to have a colonoscopy as well. Prealbumin from 03/23/20 was 8.2. Encourage nutritional supplementation with protein to help the healing process. Discussed this at length with both the patient and his . He has been drinking Boost. HgbA1c from 03/11/20 was 8.8. If a skin graft is needed in the future, his HgbA1c needs to be less than 8. He voices understanding. Discussed further surgery with the patient regarding his right inguinal area and the base of his scrotum. His perianal area is stable at the moment. If that area worsens, sometimes a diverting colostomy is needed as well as surgical excision followed by wound care in order for his perianal wounds to heal. He voices understanding. Once healed, the colostomy can be reversed. He states his right side drains intermittently but is not stopping him from activities of daily living at the present time. He is working ok. He would like to wait ideally until the Fall to proceed with surgery. Will continue to observe. He understands that if the right side gets acute infected that needs IV antibiotics in the hospital, then operative intervention would be needed sooner before the Fall. He is back to work and is doing ok. Followup three weeks due to me being on vacation and the following week is August 14 hol.
== END 2020-08-10 23:59 ==
LOC: WC 08:45
PROVIDERS: PCP Nurse Practitioner; Referring Provider Nurse Practitioner Family; Visit Provider Surgery
DX: L73.2 Hidradenitis suppurativa (principal); L98.492 Non-pressure chronic ulcer of skin of other sites with fat layer exposed; F17.200 Nicotine dependence, unspecified, uncomplicated; E11.65 Type 2 diabetes mellitus with hyperglycemia; Z79.899 Other long term (current) drug therapy
CPT/HCPCS: 11042; 11045

== ENCOUNTER → 2020-08-01 09:49 | Outpatient (CLI) | payer OTHER, SELFPAY ==
[2020-07-25 08:36] VITALS: BMI 22.9
[2020-08-01 08:42] VITALS: BMI 22.9
[2020-08-01 09:59] VITALS: BP 133/78; PULSE 82; RESP 16; TEMP 36.1; O2SAT 97; BMI 22.9
[2020-08-01] MEDS: 0.9% NaCl IVPB Med Flush (250 mL) 15 ML IV (10:23)
[2020-08-01] MEDS: 0.9% NaCl Peripheral Flush Adult/Peds IV (10:23)
[2020-08-01 11:07] VITALS: BP 155/70; PULSE 70; RESP 16; TEMP 36.2; O2SAT 98
== END ==
PROVIDERS: PCP Nurse Practitioner; Referring Provider Nurse Practitioner; Visit Provider Nurse Practitioner
DX: D64.9 Anemia, unspecified (principal); E46 Unspecified protein-calorie malnutrition
CPT/HCPCS: 96365; J1756; J7050; A4216

== ENCOUNTER → 2020-08-03 14:39 | Outpatient (CLI) | payer OTHER, SELFPAY ==
[2020-07-25 08:36] VITALS: BMI 22.9
[2020-08-01 09:59] VITALS: BMI 22.9
[2020-08-03] MEDS: 0.9% NaCl IVPB Med Flush (250 mL) 15 ML IV (14:53)
[2020-08-03] MEDS: 0.9% NaCl Peripheral Flush Adult/Peds IV (14:54)
[2020-08-03 14:55] VITALS: BP 171/95; PULSE 114; RESP 16; TEMP 36.6; O2SAT 100; BMI 22.9
[2020-08-03 15:39] VITALS: BP 181/69; PULSE 89; RESP 14; TEMP 36.8; O2SAT 99
== END ==
PROVIDERS: PCP Nurse Practitioner; Referring Provider Nurse Practitioner; Visit Provider Nurse Practitioner
DX: D64.9 Anemia, unspecified (principal); E46 Unspecified protein-calorie malnutrition
CPT/HCPCS: 96365; J1756; J7050; A4216

== ENCOUNTER → 2020-08-05 14:44 | Outpatient (CLI) | payer OTHER, SELFPAY ==
[2020-07-25 08:36] VITALS: BMI 22.9
[2020-08-03 14:55] VITALS: BMI 22.9
[2020-08-05 14:54] VITALS: BP 183/85; PULSE 87; RESP 16; TEMP 36.6; O2SAT 98
[2020-08-05] MEDS: 0.9% NaCl Peripheral Flush Adult/Peds IV (14:58)
[2020-08-05] MEDS: 0.9% NaCl IVPB Med Flush (250 mL) 15 ML IV (14:58)
[2020-08-05 15:47] VITALS: BP 149/81; PULSE 86; RESP 16; O2SAT 98
== END ==
PROVIDERS: PCP Nurse Practitioner; Referring Provider Nurse Practitioner; Visit Provider Nurse Practitioner
DX: D64.9 Anemia, unspecified (principal); E46 Unspecified protein-calorie malnutrition
CPT/HCPCS: 96365; J1756; J7050; A4216

== ENCOUNTER → 2020-09-02 21:51 | Outpatient (CLI) | payer OTHER, SELFPAY ==
[2020-09-02 18:08] VITALS: BMI 23.1
[2020-09-02 21:58] LABS: Absolute Lymphocyte Count 3.11 X10^3/uL (0.83-4.51); Absolute Neutrophil Count 8.3 X10^3/uL (2.0-7.7); Basophil# 0.06 X10^3/uL; Basophil% 0.5 % (0-1); Eosinophil# 0.14 X10^3/uL; Eosinophils% 1.1 % (0-5); Hematocrit 34.7 % (40-54); Hemoglobin 10.6 g/dL (13.0-16.5); Lymphocyte # 3.11 X10^3/ul (0.83-4.51); Lymphocyte % 25.2 % (19-41); Mean Corp Hgb Conc 30.5 g/dL (32-36); Mean Platelet Vol. 9.7 fl (6.2-12.0); Monocyte# 0.71 X10^3/uL; Monocyte% 5.7 % (0-10); NRBC Flagged by Analyzer 0 % (0-5); Neutrophil # 8.28 X10^3/uL (2.7-7.7); Neutrophil % 67.1 % (47-70); Platelet Count 367 K/mm3 (150-450); RBC Distribution Width CV 15.1 % (11.6-14.6); RBC Distribution Width SD 46.9 fl (35.1-43.9); Red Blood Count 4.08 M/mm3 (4.6-6.2); White Blood Count 12.4 K/mm3 (4.4-11.0)
[2020-09-02 22:10] LABS: Ferritin 478 ng/mL (26-388); Iron 37 ug/dL (65-175); Iron Binding Capacity,Total 150 ug/dL (250-450)
== END ==
PROVIDERS: PCP Nurse Practitioner; Referring Provider Nurse Practitioner; Visit Provider Nurse Practitioner
DX: D50.9 Iron deficiency anemia, unspecified (principal); D63.8 Anemia in other chronic diseases classified elsewhere
CPT/HCPCS: 82728; 83540; 83550; 85025

== ENCOUNTER 2020-09-05 09:00 | Outpatient (RCR) | payer OTHER, SELFPAY ==
[2020-08-03 14:55] VITALS: BMI 22.9
[2020-08-11 00:22] VITALS: BP 185/74; PULSE 73; RESP 18; TEMP 36.3
[2020-08-22 09:15] VITALS: BP 193/71; PULSE 78; RESP 16; TEMP 36.3; BMI 22.9
--- NOTE | 2020-08-22 12:18 | PCM.WC.PN ---
History of Present Illness Date of Service: 08/22/20 Chief Complaint: Nonhealing hidradenitis ulcer left inguinal, perineal, and base of scrotum. History of Wound: Surgery 03/22/20 - 1. Surgical preparation left inguinal area with excision hidradenitis (315 cm2 total wound). 2. Surgical preparation perineal area with excision hidradenitis (315 cm2 total wound). 3. Surgical preparation base left scrotum with incision and drainage and excision hidradenitis (315 cm2 total wound). Wound care - Dakin's 0.25% moistened gauze daily, Aquacel-Ag wicked into the tunnel at 6 o'clock. Wound culture from 07/05/20 showed Methicillin resistant Staphylococcus haemolyticus, Corynebacterium striatum, and Prevotella bivia. He has completed the Doxycycline and Flagyl. He went to the ED on 05/29 for fevers. They cultured his left groin ulcer and it showed Ecoli, Klebsiella pneumoniae, Serratia marcenscens, Streptococcus constellatus, Staphylococcus peudintermedia. He continued the Levaquin and Flagyl and has completed them. Wound culture 05/20/20- Serratia marcenscens, Escherichia coli, Streptococcus group F, Anaerobic cocci, Prevotella disiens. He was started on Levaquin and Flagyl and has completed them. After speaking with Dr. Palmer, the Strep group F was covered by the Levaquin. Operative culture from 03/22/20 - Enterococcus faecalis and Streptococcus group F, Anaerobic cocci and Prevotella bivia. He was treated with Linezolid and Flagyl and has completed them. He was hospitalized on 05/19/20 and his Hgb was 5.6. He received PRBC. EGD was done on 05/26/20. According to the patient he has a gastric ulcer and is being treated medically. He is scheduled to have a colonoscopy as well. Pathology - hidradenitis. Prealbumin from 03/23/20 was 8.2. Encourage nutritional supplementation with protein to help the healing process. HgbA1c from 03/11/20 was 8.8. Ultrasound of his his left lower extremity ordered and done 04/15/2020. It showed there was no evidence of left lower extremity deep vein thrombosis. Valves are competent and compressible. He will wear Tubigrip for compression. Instructed him to keep legs elevated when sitting. Instructed him to avoid standing for long periods of time. Today he denies fever. His appetite has not been good. Encouraged protein supplementation. Progress of Wound: Improved. The tunnel is also not as deep. Subjective Subjective He states he is doing ok back at work. He has increased fatigue and pain, but they are manageable. Objective Data Objective Data Vital Signs: Vital Signs Temp Pulse Resp BP 97.4 F L 78 16 193/71 H 08/22/20 09:15 08/22/20 09:15 08/22/20 09:15 08/22/20 09:15 Oxygen Delivery Method Room Air Weight: 161 lb Body Mass Index (BMI) 22.9 Charges/Coding Procedures Integumentary 111xxx-113xx: 35038 Ayla subq tissue 20 sq cm/< Physical Exam Const alert and oriented x3 HEENT normocephalic Head and Scalp: atraumatic Eyes PERRL Lymph Lymphatic: no lymphedema noted Resp normal respiratory effort Cardio regular rate GI non-tender Extremity normal capillary refill Skin Wound Narrative: Left groin ulcer is beefy pink and smaller in size. He continues to have a tunnel at 6 o'clock that is not as deep. Neuro CN's II-XII intact bilaterally Psych Appearance: grossly normal Debridement Note Debridement Note Post-Debridement Measurements and Additional Note: Post-Debridement Measurements/Treatment - Nurse 1 - General Ulcer Assessment Start: 08/22/20 09:14 Freq: Status: Active Protocol: .LOWEXFederico Activity Type Activity Date Activity User E-Sign Co-Sign Detail Recorded Client Recorded Date Recorded By Document 08/22/20 09:15 [facility] [id number] 08/22/20 09:23 [facility] 08/22/20 09:15 - Today's Visit Information Type of service Follow-up Visit (Physician/[employer] ) Arrival Mode Ambulatory Transfer Assistance None Patient Identification Verified (Name & Yes ) Patient Requires Transmission-Based No Precautions Height and Weight Body Mass Index (BMI) 22.9 BMI Classification Normal Vital Signs Temperature (97.8 F-99.1 F) 97.4 F L Temperature Source Temporal Pulse Rate (60-100) 78 Pulse Location Monitor Respiratory Rate (12-18) 16 Respiratory rate source Observation Oxygen Delivery Method Room Air Blood Pressure (90/60-120/80) 193/71 H Blood Pressure Mean (mm Hg) 111 Source Monitor Position Sitting Blood Pressure Location Right Arm History Since Last Visit- (Skip if this is Patient's initial visit) Have you changed medications since your No last visit? Any new allergies or adverse reactions No Had a fall/change in ADL's that may No increase risk of falls Signs or symptoms of abuse and/or No neglect since last visit Have you been in the hospital since your No last visit? Has dressing in place as prescribed Yes Has compression in place as prescribed N/A Has offloadiing in place as prescribed N/A Experienced any changes in pain level or No management Left Footwear Regular Shoe Right Footwear Regular Shoe Pain Scale: 0-10 Numeric Is Patient Pain Free? Yes - Nurse 1 - General Ulcer Measurement Start: 08/22/20 09:14 Freq: Status: Active Protocol: Activity Type Activity Date Activity User E-Sign Co-Sign Detail Recorded Client Recorded Date Recorded By Document 08/22/20 09:15 [facility] [id number] 08/22/20 09:23 [facility] 08/22/20 09:15 Wound Center Nurse 1 #1- L GROIN/BUTTOCK POST OP -Combined with other wound No -Current Size (cm) - Length 9 -Current Size (cm) - Width 2.5 -Current Size (cm) - Depth 0.2 -Total Square Cm 22.5 -Photo Taken No -Epithelialization None Present -Tunneling Yes -Tunneling Position (O'clock) 6 -Tunneling Distance (cm) 1.7 -Undermining/Tunneling No -Circular Undermining No -Exudate Amt Large -Exudate Type Serosanguineous -Wound Margin Distinct, Outline Attached -Granulation Amt Large (67-100%) -Granulation Quality Red -Slough/Fibrin Yes -Necrosis Amt Small (1-33%) -Necrotic Tissue Type Adherent Slough -Texture ([place]imbola-wound Skin Appearance) Assessed, Scarring -Moisture ([place]ola-wound Skin Appearance) Assessed -Color ([place]ola-wound Skin Appearance) Assessed -Temperature ([place]ola-wound Skin No Abnormality Appearance) (Pt Warm) -Tenderness on Palpation ([place]ola-wound Yes Skin Appearance) -Ulcer Cleansing Rinsed/ Irrigated with Saline -Foul Odor after Cleansing No -Anesthetic Used 4% Lidocaine Solution - Nurse 2 - General Ulcer CM Notes Start: 08/22/20 09:14 Freq: Status: Active Protocol: Activity Type Activity Date Activity User E-Sign Co-Sign Detail Recorded Client Recorded Date Recorded By Document 08/22/20 12:13 PL [id number] 08/22/20 12:15 PL 08/22/20 12:13 Wound Center Nurse 2 -Time 09:47 -Correct Patient Yes -Correct Side, Site, Position Yes -Correct Procedure Yes -Procedure Performed Yes -Type of Procedure Debridement -Clinical Debridement Subcutaneous -Tissue Removed Subcutaneous -Post Debridement (cm) - Length 7.0 -Post Debridement (cm) - Width 3.5 -Post Debridement (cm) - Depth 0.2 -Total Square (Post) (cm) 24.50 -Area of Debridement (cm) - Length 7.0 -Area of Debridement (cm) - Width 3.5 -Total Square (Area) (cm) 24.50 -Tunneling No -Undermining/Tunneling No -Circular Undermining No -Wound/Ulcer Outcome Not Healed -Ulcer Cleansing Rinsed/ Irrigated with Saline -Foul Odor after Cleansing No -Bioengineered Tissue No -Bleeding Controlled with Pressure -Treatment Response Procedure Tolerated Well -Debridement - Subq, 1st 20sq cm Yes -Debridement, SubQ, ea addt'l 20sq cm 1 or part thereof Pain Scale: 0-10 Numeric Is Patient Pain Free? Yes WC - Nurse 3 - General Ulcer D/C NN Start: 08/22/20 09:14 Freq: Status: Active Protocol: Activity Type Activity Date Activity User E-Sign Co-Sign Detail Recorded Client Recorded Date Recorded By Document 08/22/20 10:00 [facility] [id number] 08/22/20 10:02 [facility] 08/22/20 10:00 Wound Care Nurse 3 #1- L GROIN/BUTTOCK POST OP -Ulcer Cleansing Rinsed/ Irrigated with Saline -Foul Odor after Cleansing No -Primary Dressing Applied Aquacel AG 4x4, Other -Other Dressing moist to dry -Primary Dressing Covered/Secured with Secured with Tape,Other -Other Covering abd -Aquacel AG 4x4 1 Treatment Response Procedure Tolerated Well Pain Scale: 0-10 Numeric Is Patient Pain Free? Yes WC - Visit Discharge Discharge Condition Stable Ambulatory Status Ambulatory Transportation Private Auto Accompanied by Wound debrided: Groin ulcer Laterality: Left Type of Debridement: Excisional debridement Anesthesia Used: 5% Lidocaine Gel Depth: Down to and including healthy tissue and in the subcutaneous layer Percentage of wound debrided: 100 Instrument Used: 5mm curette Tissue Removed: Subcutaneous tissue and slough Severity: Fat Layer Exposed Amount of bleeding with debridement: Mild Bleeding Controlled with: Pressure and Compression and gauze Patient tolerated procedure: Patient tolerated procedure well Assessment/Plan Assessment/Plan (1) Ulcer of perineum with fat layer exposed: CODE(S): L98.492 - Non-pressure chronic ulcer of skin of other sites with fat layer exposed (2) Skin ulcer of scrotum: CODE(S): N50.89 - Other specified disorders of the male genital organs (3) Anemia of chronic disease: CODE(S): D63.8 - Anemia in other chronic diseases classified elsewhere (4) Ulcer of left groin with fat layer exposed: CODE(S): L98.492 - Non-pressure chronic ulcer of skin of other sites with fat layer exposed (5) Diabetes type 2, uncontrolled: CODE(S): E11.65 - Type 2 diabetes mellitus with hyperglycemia (6) Acute blood loss anemia: CODE(S): D62 - Acute posthemorrhagic anemia (7) Tobacco dependence syndrome: CODE(S): F17.200 - Nicotine dependence, unspecified, uncomplicated (8) Infliximab (Remicade) long-term use: CODE(S): 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 (9) Malnutrition: CODE(S): E46 - Unspecified protein-calorie malnutrition QUALIFIERS: Malnutrition type: protein-calorie malnutrition Protein-calorie malnutrition severity: moderate Qualified Code(s): E44.0 - Moderate protein-calorie malnutrition (10) Hydradenitis: CODE(S): L73.2 - Hidradenitis suppurativa (11) Diabetes mellitus type 2, uncontrolled, with complications: CODE(S): E11.8 - Type 2 diabetes mellitus with unspecified complications; E11.65 - Type 2 diabetes mellitus with hyperglycemia PLAN: Continue wound care with Dakin's moistened gauze, with Aquacel-Ag wicked into the tunnel at 6 o'clock, covered by ABD dressing changes daily. At home he can use a handheld shower to rinse his groin and perineal area when showering and after going to the bathroom. Wound culture from 07/05/20 showed Methicillin resistant Staphylococcus haemolyticus, Corynebacterium striatum, and Prevotella bivia. He has completed the Doxycycline and Flagyl. Ultrasound of his his left lower extremity ordered and done on 04/15/2020. It showed there was no evidence of left lower extremity deep vein thrombosis. Valves are competent and compressible. He will wear Tubigrip for compression. Instructed him to keep legs elevated when sitting. Instructed him to avoid standing for long periods of time. He was hospitalized 05/19-05/20/20 for Acute blood loss anemia. He received 2 units of PRBCs for a Hgb 5.6. Repeat Hgb 9.4 from 05/25/20. Repeat Hgb 9.9 from 07/18/20. EGD 05/26/20, patient states he has an ulcer which is being treated medically. He is scheduled to have a colonoscopy as well. Prealbumin from 03/23/20 was 8.2. Encourage nutritional supplementation with protein to help the healing process. Discussed this at length with both the patient and his . He has been drinking Boost. HgbA1c from 03/11/20 was 8.8. If a skin graft is needed in the future, his HgbA1c needs to be less than 8. He voices understanding. Discussed further surgery with the patient regarding his right inguinal area and the base of his scrotum. His perianal area is stable at the moment. If that area worsens, sometimes a diverting colostomy is needed as well as surgical excision followed by wound care in order for his perianal wounds to heal. He voices understanding. Once healed, the colostomy can be reversed. He states his right side drains intermittently but is not stopping him from activities of daily living at the present time. He is working ok. He would like to wait ideally until the Fall to proceed with surgery. Will continue to observe. He understands that if the right side gets acute infected that needs IV antibiotics in the hospital, then operative intervention would be needed sooner before the Fall. He is back to work and is doing ok. Followup two weeks.
[2020-09-05 08:52] VITALS: PULSE 82; TEMP 36.3; BMI 22.9
--- NOTE | 2020-09-05 14:45 | PCM.WC.PN ---
History of Present Illness Date of Service: 09/05/20 Chief Complaint: Nonhealing hidradenitis ulcer left inguinal, perineal, and base of scrotum. History of Wound: Surgery 03/22/20 - 1. Surgical preparation left inguinal area with excision hidradenitis (315 cm2 total wound). 2. Surgical preparation perineal area with excision hidradenitis (315 cm2 total wound). 3. Surgical preparation base left scrotum with incision and drainage and excision hidradenitis (315 cm2 total wound). Wound care - Dakin's 0.25% moistened gauze daily to the left groin. The posterior ulcer tunnel will start Iodoform gauze packed daily. He is having increased drainage. Wound culture obtained today, 09/05/20. Wound culture from 07/05/20 showed Methicillin resistant Staphylococcus haemolyticus, Corynebacterium striatum, and Prevotella bivia. He has completed the Doxycycline and Flagyl. He went to the ED on 05/29 for fevers. They cultured his left groin ulcer and it showed Ecoli, Klebsiella pneumoniae, Serratia marcenscens, Streptococcus constellatus, Staphylococcus peudintermedia. He continued the Levaquin and Flagyl and has completed them. Wound culture 05/20/20- Serratia marcenscens, Escherichia coli, Streptococcus group F, Anaerobic cocci, Prevotella disiens. He was started on Levaquin and Flagyl and has completed them. After speaking with Dr. Palmer, the Strep group F was covered by the Levaquin. Operative culture from 03/22/20 - Enterococcus faecalis and Streptococcus group F, Anaerobic cocci and Prevotella bivia. He was treated with Linezolid and Flagyl and has completed them. He was hospitalized on 05/19/20 and his Hgb was 5.6. He received PRBC. EGD was done on 05/26/20. According to the patient he has a gastric ulcer and is being treated medically. He is scheduled to have a colonoscopy as well. Pathology - hidradenitis. Prealbumin from 03/23/20 was 8.2. Encourage nutritional supplementation with protein to help the healing process. HgbA1c from 03/11/20 was 8.8. Ultrasound of his his left lower extremity ordered and done 04/15/2020. It showed there was no evidence of left lower extremity deep vein thrombosis. Valves are competent and compressible. He will wear Tubigrip for compression. Instructed him to keep legs elevated when sitting. Instructed him to avoid standing for long periods of time. Today he denies fever. His appetite has not been good. Encouraged protein supplementation. Progress of Wound: Stable. Increased drainage. There is now healed skin between the left groin ulcer and the tunnel area, we will separate these two ulcers. Objective Data Objective Data Vital Signs: Vital Signs Temp Pulse Resp BP 97.4 F L 82 16 193/71 H 09/05/20 08:52 09/05/20 08:52 08/22/20 09:15 08/22/20 09:15 Oxygen Delivery Method Room Air Weight: 161 lb Body Mass Index (BMI) 22.9 Charges/Coding Procedures Integumentary 111xxx-113xx: [id number] Ayla subq tissue 20 sq cm/< Add On Codes: 04040 Ayla subq tissue add-on Physical Exam Const alert and oriented x3 General Appearance: cooperative HEENT normocephalic Eyes PERRL Lymph Lymphatic: no lymphedema noted Resp normal respiratory effort Cardio regular rate GI non-tender Extremity normal capillary refill Skin Wound Narrative: Left groin ulcer is stable. Increased drainage. Left posterior ulcer tunnel is stable, becoming more difficult to pack due to the opening becoming smaller. Neuro CN's II-XII intact bilaterally Psych Appearance: grossly normal Debridement Note Debridement Note Post-Debridement Measurements and Additional Note: Post-Debridement Measurements/Treatment - Nurse 1 - General Ulcer Assessment Start: 08/22/20 09:14 Freq: Status: Active Protocol: ROC Activity Type Activity Date Activity User E-Sign Co-Sign Detail Recorded Client Recorded Date Recorded By Document 08/22/20 09:15 [facility] [id number] 08/22/20 09:23 [facility] Document 09/05/20 08:52 KR [id number] 09/05/20 08:58 KR 08/22/20 09/05/20 09:15 08:52 - Today's Visit Information Type of service Follow-up Visit Follow-up Visit (Physician/INSPECTOR FLOOR SUB ASSEMBLY (Physician/INSPECTOR FLOOR SUB ASSEMBLY ) ) Arrival Mode Ambulatory Ambulatory Transfer Assistance None Patient Identification Verified (Name & Yes Yes ) Patient Requires Transmission-Based No Precautions Height and Weight Body Mass Index (BMI) 22.9 22.9 BMI Classification Normal Normal Vital Signs Temperature (97.8 F-99.1 F) 97.4 F L 97.4 F L Temperature Source Temporal Temporal Pulse Rate (60-100) 78 82 Pulse Location Monitor Monitor Respiratory Rate (12-18) 16 Respiratory rate source Observation Oxygen Delivery Method Room Air Blood Pressure (90/60-120/80) 193/71 H Blood Pressure Mean (mm Hg) 111 Source Monitor Position Sitting Blood Pressure Location Right Arm History Since Last Visit- (Skip if this is Patient's initial visit) Have you changed medications since your No No last visit? Any new allergies or adverse reactions No No Had a fall/change in ADL's that may No No increase risk of falls Signs or symptoms of abuse and/or No No neglect since last visit Have you been in the hospital since your No No last visit? Has dressing in place as prescribed Yes Yes Has compression in place as prescribed N/A N/A Has offloadiing in place as prescribed N/A N/A Experienced any changes in pain level or No No management Left Footwear Regular Shoe Regular Shoe Right Footwear Regular Shoe Regular Shoe Pain Scale: 0-10 Numeric Is Patient Pain Free? Yes Yes WC - Nurse 1 - General Ulcer Measurement Start: 08/22/20 09:14 Freq: Status: Active Protocol: Activity Type Activity Date Activity User E-Sign Co-Sign Detail Recorded Client Recorded Date Recorded By Document 08/22/20 09:15 [facility] [id number] 08/22/20 09:23 [facility] Document 09/05/20 08:52 KR [id number] 09/05/20 08:58 KR 08/22/20 09/05/20 09:15 08:52 Wound Center Nurse 1 #1- L GROIN -Combined with other wound No -Current Size (cm) - Length 9 7.5 -Current Size (cm) - Width 2.5 3.3 -Current Size (cm) - Depth 0.2 0.1 -Total Square Cm 22.5 24.75 -Photo Taken No -Epithelialization None Present -Tunneling Yes -Tunneling Position (O'clock) 6 -Tunneling Distance (cm) 1.7 -Undermining/Tunneling No -Circular Undermining No -Exudate Amt Large Small -Exudate Type Serosanguineous Serosanguineous -Wound Margin Distinct, Distinct, Outline Outline Attached Attached -Granulation Amt Large (67-100%) Medium (34-66%) -Granulation Quality Red Red -Slough/Fibrin Yes No -Necrosis Amt Small (1-33%) -Necrotic Tissue Type Adherent Slough -Texture ([place]ola-wound Skin Appearance) Assessed, Assessed, Scarring Scarring -Moisture ([place]-wound Skin Appearance) Assessed No Abnormality, Assessed -Color ([place]ola-wound Skin Appearance) Assessed No Abnormality, Assessed -Temperature ([place]-wound Skin No Abnormality No Abnormality Appearance) (Pt Warm) (Pt Warm) -Tenderness on Palpation ([place]ola-wound Yes No Skin Appearance) -Ulcer Cleansing Rinsed/ soap and water Irrigated with Saline -Foul Odor after Cleansing No No -Anesthetic Used 4% Lidocaine 4% Lidocaine Solution Solution WC - Nurse 2 - General Ulcer CM Notes Start: 08/22/20 09:14 Freq: Status: Active Protocol: Activity Type Activity Date Activity User E-Sign Co-Sign Detail Recorded Client Recorded Date Recorded By Document 08/22/20 12:13 PL [id number] 08/22/20 12:15 PL Document 09/05/20 09:12 [id number] 09/05/20 09:17 08/22/20 09/05/20 12:13 09:12 Wound Center Nurse 2 2-left posterior groin -Time 09:16 -Correct Patient Yes -Correct Side, Site, Position Yes -Correct Procedure Yes -Procedure Performed Yes -Type of Procedure Debridement -Clinical Debridement Subcutaneous -Tissue Removed Subcutaneous -Post Debridement (cm) - Length 0.2 -Post Debridement (cm) - Width 0.2 -Post Debridement (cm) - Depth 3.5 -Total Square (Post) (cm) 0.04 -Area of Debridement (cm) - Length 0.2 -Area of Debridement (cm) - Width 0.2 -Total Square (Area) (cm) 0.04 -Tunneling No -Undermining/Tunneling No -Circular Undermining No -Wound/Ulcer Outcome Not Healed -Ulcer Cleansing Rinsed/ Irrigated with Saline -Foul Odor after Cleansing No -Bioengineered Tissue No -Bleeding Controlled with Pressure -Offloading No -Treatment Response Procedure Tolerated Well -Debridement - Subq, 1st 20sq cm No #1- L GROIN -Time 09:47 09:15 -Correct Patient Yes Yes -Correct Side, Site, Position Yes Yes -Correct Procedure Yes Yes -Procedure Performed Yes Yes -Type of Procedure Debridement Debridement -Clinical Debridement Subcutaneous Subcutaneous -Tissue Removed Subcutaneous Subcutaneous -Post Debridement (cm) - Length 7.0 7 -Post Debridement (cm) - Width 3.5 4.4 -Post Debridement (cm) - Depth 0.2 0.2 -Total Square (Post) (cm) 24.50 30.8 -Area of Debridement (cm) - Length 7.0 7 -Area of Debridement (cm) - Width 3.5 4.4 -Total Square (Area) (cm) 24.50 30.8 -Tunneling No No -Undermining/Tunneling No No -Circular Undermining No No -Wound/Ulcer Outcome Not Healed Not Healed -Ulcer Cleansing Rinsed/ Rinsed/ Irrigated with Irrigated with Saline Saline -Foul Odor after Cleansing No Yes, Due to Product Use -Bioengineered Tissue No No -Bleeding Controlled with Pressure Pressure -Offloading No -Treatment Response Procedure Procedure Tolerated Well Tolerated Well -Debridement - Subq, 1st 20sq cm Yes Yes -Debridement, SubQ, ea addt'l 20sq cm 1 1 or part thereof Pain Scale: 0-10 Numeric Is Patient Pain Free? Yes Yes WC - Nurse 3 - General Ulcer D/C NN Start: 08/22/20 09:14 Freq: Status: Active Protocol: Activity Type Activity Date Activity User E-Sign Co-Sign Detail Recorded Client Recorded Date Recorded By Document 08/22/20 10:00 [facility] [id number] 08/22/20 10:02 [facility] Document 09/05/20 09:32 [place] [id number] 09/05/20 09:34 [place] 08/22/20 09/05/20 10:00 09:32 Wound Care Nurse 3 2-left posterior groin -Primary Dressing Applied Nugauze, Iodoform -Primary Dressing Covered/Secured with Dry Gauze, Secured with Tape -Nugauze, Iodoform 1/4 1 #1- L GROIN -Ulcer Cleansing Rinsed/ Irrigated with Saline -Foul Odor after Cleansing No -Primary Dressing Applied Aquacel AG 4x4, Aquacel AG 4x4 Other -Other Dressing moist to dry -Primary Dressing Covered/Secured with Secured with Tape,Other -Other Covering abd -Aquacel AG 4x4 1 1 Treatment Response Procedure Tolerated Well Pain Scale: 0-10 Numeric Is Patient Pain Free? Yes Yes WC - Visit Discharge Discharge Condition Stable Stable Ambulatory Status Ambulatory Ambulatory Transportation Private Auto Private Auto Accompanied by Wound debrided: Left groin ulcer Laterality: Left Type of Debridement: Excisional debridement Anesthesia Used: 5% Lidocaine Gel Depth: Down to and including healthy tissue and in the subcutaneous layer Instrument Used: 5mm curette Tissue Removed: Subcutaneous tissue and slough Severity: Fat Layer Exposed Amount of bleeding with debridement: Mild Bleeding Controlled with: Pressure Patient tolerated procedure: Patient tolerated procedure well Additional Wound Wound debrided: Left posterior ulcer Laterality: Left Type of Debridement: Excisional debridement Anesthesia Used: 5% Lidocaine Gel Depth: Down to and including healthy tissue and in the subcutaneous layer Percentage of wound debrided: 100 Instrument Used: 5mm curette Tissue Removed: Subcutaneous tissue and slough Severity: Fat Layer Exposed Amount of bleeding with debridement: Mild Bleeding Controlled with: Pressure and Compression and gauze Patient tolerated procedure: Patient tolerated procedure well Assessment/Plan Assessment/Plan (1) Ulcer of left groin with fat layer exposed: CODE(S): L98.492 - Non-pressure chronic ulcer of skin of other sites with fat layer exposed (2) Ulcer of perineum with fat layer exposed: CODE(S): L98.492 - Non-pressure chronic ulcer of skin of other sites with fat layer exposed (3) Hydradenitis: CODE(S): L73.2 - Hidradenitis suppurativa (4) Anemia of chronic disease: CODE(S): D63.8 - Anemia in other chronic diseases classified elsewhere (5) Tobacco dependence syndrome: CODE(S): F17.200 - Nicotine dependence, unspecified, uncomplicated (6) Diabetes mellitus type 2, uncontrolled, with complications: CODE(S): E11.8 - Type 2 diabetes mellitus with unspecified complications; E11.65 - Type 2 diabetes mellitus with hyperglycemia (7) Malnutrition: CODE(S): E46 - Unspecified protein-calorie malnutrition QUALIFIERS: Malnutrition type: protein-calorie malnutrition Protein-calorie malnutrition severity: moderate Qualified Code(s): E44.0 - Moderate protein-calorie malnutrition PLAN: Continue wound care with Dakin's moistened gauze to the left groin ulcer daily. Will place Aquacel -Ag because he did not bring his Dakin's solution today. Will stop the Aquacel-Ag wicked into the posterior ulcer tunnel at 6 o'clock and start Iodoform gauze, covered by ABD dressing changes daily. At home he can use a handheld shower to rinse his groin and perineal area when showering and after going to the bathroom. Obtained a new wound culture today due to increased drainage and odor. Wound culture from 07/05/20 showed Methicillin resistant Staphylococcus haemolyticus, Corynebacterium striatum, and Prevotella bivia. He has completed the Doxycycline and Flagyl. Ultrasound of his his left lower extremity ordered and done on 04/15/2020. It showed there was no evidence of left lower extremity deep vein thrombosis. Valves are competent and compressible. He will wear Tubigrip for compression. Instructed him to keep legs elevated when sitting. Instructed him to avoid standing for long periods of time. He was hospitalized 05/19-05/20/20 for Acute blood loss anemia. He received 2 units of PRBCs for a Hgb 5.6. Repeat Hgb 9.4 from 05/25/20. Repeat Hgb 9.9 from 07/18/20. EGD 05/26/20, patient states he has an ulcer which is being treated medically. He is scheduled to have a colonoscopy as well. Prealbumin from 03/23/20 was 8.2. Encourage nutritional supplementation with protein to help the healing process. Discussed this at length with both the patient and his . He has been drinking Boost. HgbA1c from 03/11/20 was 8.8. If a skin graft is needed in the future, his HgbA1c needs to be less than 8. He voices understanding. Discussed further surgery with the patient regarding his right inguinal area and the base of his scrotum. His perianal area is stable at the moment. If that area worsens, sometimes a diverting colostomy is needed as well as surgical excision followed by wound care in order for his perianal wounds to heal. He voices understanding. Once healed, the colostomy can be reversed. He states his right side drains intermittently but is not stopping him from activities of daily living at the present time. He is working ok. He would like to wait ideally until the Fall to proceed with surgery. Will continue to observe. He understands that if the right side gets acute infected that needs IV antibiotics in the hospital, then operative intervention would be needed sooner before the Fall. He is back to work and is doing ok. Encouraged patient to stop smoking as it may have deleterious effects on wound healing. Followup two weeks.
== END 2020-09-10 23:59 ==
LOC: WC 09:00
PROVIDERS: PCP Nurse Practitioner; Referring Provider Nurse Practitioner Family; Visit Provider Nurse Practitioner Family
DX: L73.2 Hidradenitis suppurativa (principal); L98.492 Non-pressure chronic ulcer of skin of other sites with fat layer exposed; E11.65 Type 2 diabetes mellitus with hyperglycemia; Z79.899 Other long term (current) drug therapy
CPT/HCPCS: 11042; 11045; 87070; 87075; 87077; 87186; 87205

== ENCOUNTER 2020-09-14 06:25 | Emergency (ER) | payer OTHER, SELFPAY ==
[2020-09-07 09:18] VITALS: BMI 23.1
[2020-09-14 06:26] VITALS: BP 175/78; PULSE 89; RESP 18; TEMP 36.2; O2SAT 100; BMI 22.1
--- NOTE | 2020-09-14 06:35 | RAD_ITS ---
STUDY: X-RAY - LEFT ANKLE REASON FOR EXAM: Medial malleolar left ankle pain, no specific injury. TECHNIQUE: 3 view(s) of the ankle. COMPARISON: None. FINDINGS: Normal visualized distal tibia and fibula. Normal medial and lateral malleoli. There is a radiolucency in the medial talar dome suggestive of an osteochondral lesion. Normal visualized calcaneus. The visualized subtalar, talonavicular, calcaneocuboid and tarsal articulations are normal. The soft tissue structures are unremarkable. RAD/Ankle min 3 Views IMPRESSION: Radiolucency in the medial talar dome suggestive of an osteochondral lesion. Electronically Signed: Bals Contreras MD at 7:33 EDT Tel , Service support ,
--- NOTE | 2020-09-14 06:42 | EDS_ITS ---
HPI History of Present Illness Chief Complaint: Lower Extremity Injury Informant: patient Narrative Narrative: Patient is a 55-year-old male with a past medical history of hidradenitis suppurativa, diabetes, hypertension who presents to the emergency department for left ankle pain. He states that has been bothersome over the past couple of weeks. Over the past 2 to 3 days has become very severe. Is worse initially in the mornings. He noticed a red spot starting on the medial aspect of his ankle yesterday. He denies any fevers or chills. He states he has been vomiting. He was started on cefdinir as well as metronidazole given his groin wound from his hidradenitis. Patient denies any previous injury to the left ankle. No pain going up the leg. No loss of sensation. He has not been taking anything for this. He currently describes the pain as severe. [facility] Medical History Acute blood loss anemia Anemia Anemia of chronic disease COPD (chronic obstructive pulmonary disease) Diabetes mellitus type 2, uncontrolled, with complications Diabetes type 2, uncontrolled Heart disease Hidradenitis suppurativa of anus Hydradenitis Hydradenitis Hyperlipidemia associated with type 2 diabetes mellitus Hypertension Malnutrition Myocardial infarct Pain in the groin Skin ulcer of scrotum Ulcer of left groin with fat layer exposed Ulcer of perineum with fat layer exposed Home Medications ascorbic acid (vitamin C) 500 mg PO BID #60 tablet 05/20/20 [Rx Last Taken Unknown] cyanocobalamin (vitamin B-12) 1,000 mcg PO DAILY@0800 #30 tab 05/20/20 [Rx Last Taken Unknown] folic acid 1 mg PO DAILY #30 tablet 05/20/20 [Rx Last Taken Unknown] metformin 500 mg PO BID #60 tablet 05/20/20 [Rx Last Taken Unknown] cyclobenzaprine 5 mg tablet 5 mg PO TID PRN 05/25/20 [History Last Taken Unknown] lisinopril 20 mg tablet 20 mg PO DAILY 05/25/20 [History Last Taken Unknown] pantoprazole 40 mg PO DAILY 05/29/20 [History Last Taken Unknown] levofloxacin 500 mg PO DAILY 21 Days #21 tablet 05/30/20 [Rx Last Taken Unknown] buspirone 15 mg tablet 5 mg PO TID tab 06/13/20 [History Last Taken Unknown] diazepam 10 mg tablet 10 mg PO BID PRN #60 tab 06/13/20 [Rx Last Taken Unknown] ferrous sulfate 325 mg (65 mg iron) tablet 325 mg PO DAILY #30 tab 06/13/20 [Rx Last Taken Unknown] fluconazole 100 mg tablet 100 mg PO DAILY 06/13/20 [History Last Taken Unknown] levofloxacin 500 mg tablet 500 mg PO DAILY 06/13/20 [History Last Taken Unknown] oxycodone-acetaminophen [Percocet] 1 tab PO BID 7 Days #14 tab 06/20/20 [Rx Last Taken Unknown] doxycycline monohydrate 100 mg capsule 100 mg PO BID 21 Days #42 cap 07/12/20 [Rx Last Taken Unknown] tramadol 50 mg tablet 50 mg PO Q6H PRN 30 Days #120 tab 09/02/20 [Rx Last Taken Unknown] doxycycline monohydrate 100 mg tablet 100 mg PO BID 21 Days #42 tab 09/05/20 [Rx Last Taken Unknown] metronidazole 500 mg tablet 500 mg PO TID #30 tab 09/05/20 [Rx Last Taken Unknown] cefdinir 300 mg capsule 300 mg PO Q12H 21 Days #42 cap 09/09/20 [Rx Last Taken Unknown] doxycycline hyclate 100 mg PO BID #14 cap 09/14/20 [Rx Last Taken Unknown] hydrocodone-acetaminophen 1 tab PO Q8H PRN 3 Days #10 tab 09/14/20 [Rx Last Taken Unknown] Allergy/AdvReac Type Severity Reaction Status Date / Time Penicillins Allergy Unknown Verified 09/14/20 06:29 Sulfa (Sulfonamide Allergy Unknown Verified 09/14/20 06:29 Antibiotics) bupropion [From Wellbutrin] AdvReac Severe change in Verified 09/14/20 06:29 personality ,meanness and smoked more Family History Aunt Lung disease lung cancer Father Heart disease Hypertension Family history of high cholesterol Diabetes Mother Diabetes Daughter Epilepsy Surgical History History of removal of cyst History of tonsillectomy and adenoidectomy Hx of hernia repair Stented coronary artery Social History (Reviewed 09/14/20 @ 06:43 by DrDESMOND Randolph Smoking Status: Current every day smoker tobacco type: cigarettes alcohol intake: never substance use type: does not use additional social history: DOES NOT TAKE ASPIRIN DOES NOT TAKE IBUPROFEN ROS ROS ED Constitutional Constitutional ED: Denies chills or fever(s) ENT ENT ED: Denies epistaxis or rhinorrhea Cardiovascular Cardiovascular: Denies chest pain Respiratory/Chest Respiratory/Chest: Reports dyspnea; Denies cough or sputum Gastrointestinal Gastrointestinal: Reports vomiting; Denies abdominal pain, diarrhea or nausea Genitourinary Genitourinary ED: Denies dysuria, hematuria or urinary frequency Musculoskeletal Musculoskeletal: Reports arthralgias; Denies back pain or neck pain Integumentary Denies rash Neurologic Neurologic: Denies dizziness, headache(s) or weakness EXAM Physical Exam Const Vital Signs: 09/14/20 06:26 Temperature 97.2 F L Temperature Source Temporal Pulse Rate 89 Respiratory Rate 18 Blood Pressure 175/78 H Blood Pressure Mean 110 Pulse Ox 100 Oxygen Delivery Method Room Air Positive well nourished and well developed General Appearance ED: well developed and NAD HEENT Reports normocephalic and head/scalp atraumatic Eyes PERRL and EOMs intact bilaterally Neck supple Chest Wall inspection of chest normal Resp normal respiratory effort Auscultation: wheezes; Negative for rales or rhonchi Cardio regular rate, regular rhythm and no murmurs GI normal to inspection, nondistended, normoactive bowel sounds and non-tender Palpation: soft; Negative for guarding or rebound tenderness present Extremity Extremity Narrative: There is a 2 cm area of erythema, warmth and tenderness over the medial malleolus of the left ankle. He does have good range of motion. 2+ DP pulse. Sensation intact. General Extremety ED: Negative for edema General Extremity: Negative for edema Neuro no sensory deficits noted Sensorium / Orientation: alert Motor Exam: strength 5/5 throughout Psych mental status grossly normal Skin Skin Narrative: Hidradenitis suppurativa wound in the left groin without any evidence of active infection. MDM MDM MDM Narrative Medical decision making narrative: Patient presents to the ED for left ankle pain. This has been going on for a few weeks but worsening recently. There is now a red spot which is very tender over his medial ankle. On arrival to the ED his vital signs are within normal limits. He is in no acute distress. With the erythema, warmth and tenderness I would consider this to be infectious. He does have a groin wound which is currently packed. This does not appear infected. I would expect if this was an infection at the ankle causing his pain that the cefdinir he has been taking should be treating this. Given this fact will check basic lab work along with x-ray of the ankle. I have low concern for septic ar thritis given that he has good range of motion without pain out of proportion. Was drawn around the area of erythema. Does not have a high white blood cell count. His ESR is elevated. His CRP is actually come down from previous lab draw. We will add doxycycline to cover staph aureus. Patient has an allergy to sulfa. He is to ice and elevate that area. If any significant erythema, warmth spreads past the line he needs to come back for further evaluation or if he develops any fever/chills. He otherwise is to contact his PCP today to get a appointment in the next 2 days for repeat examination of this. He understands and is agreeable this plan. Discharged home in stable condition. All questions are answered. Lab Data Labs: Laboratory Results - last 24 hr 09/14/20 09/14/20 06:40 06:40 WBC 11.3 H RBC 4.20 L Hgb 11.0 L Hct 35.2 L MCV 83.8 MCH 26.2 L MCHC 31.3 L RDW Std Deviation 45.0 H RDW Coeff of Dana 14.8 H Plt Count 399 MPV 8.4 Immature Gran % (Auto) 0.500 Neut % (Auto) 69.8 Lymph % (Auto) 22.9 [place] % (Auto) 5.4 Eos % (Auto) 0.9 Baso % (Auto) 0.5 Absolute Neuts (auto) 7.9 H Absolute Lymphs (auto) 2.59 Nucleated RBC % 0 ESR 97 H Sodium 134 L Potassium 4.1 Chloride 103 Carbon Dioxide 25.0 Anion Gap 6 BUN 6 L Creatinine 1.02 Estim Creat Clear Calc 74.82 Est GFR (MDRD) Af Amer 97 Est GFR (MDRD) Non-Af 80 BUN/Creatinine Ratio 5.9 L Glucose 193 H Calcium 8.8 C-React Prot Ext Range 50.60 H Discharge Plan Triage Chief Complaint: Lower Extremity Injury ED Provider: Herminio Corbin Dx/Rx/DC Orders Clinical Impression: Ankle pain, Cellulitis Instructions: ED Cellulitis Prescriptions: New doxycycline hyclate 100 mg capsule 100 mg PO BID Qty: 14 RF: 0 hydrocodone-acetaminophen 5-325 mg tablet 1 tab PO Q8H PRN (Reason: pain) 3 Days Qty: 10 RF: 0 No Action lisinopril 20 mg tablet 20 mg PO DAILY RF: 0 cyclobenzaprine 5 mg tablet 5 mg PO TID PRN (Reason: Pain 1-10 Or Fever) RF: 0 buspirone 15 mg tablet 5 mg PO TID RF: 0 levofloxacin 500 mg tablet 500 mg PO DAILY RF: 0 fluconazole 100 mg tablet 100 mg PO DAILY RF: 0 ferrous sulfate 325 mg (65 mg iron) tablet 325 mg PO DAILY Qty: 30 RF: 12 diazepam 10 mg tablet 10 mg PO BID PRN (Reason: muscle spasm) Qty: 60 RF: 5 tramadol 50 mg tablet 50 mg PO Q6H PRN (Reason: wound pain) 30 Days Qty: 120 RF: 5 levofloxacin 500 MG tablet 500 mg PO DAILY 21 Days Qty: 21 RF: 1 cyanocobalamin (vitamin B-12) 500 MCG tablet 1,000 mcg PO DAILY@0800 Qty: 30 RF: 0 ascorbic acid (vitamin C) 500 MG tablet 500 mg PO BID Qty: 60 RF: 0 folic acid 1 MG tablet 1 mg PO DAILY Qty: 30 RF: 0 metformin 500 MG tablet 500 mg PO BID Qty: 60 RF: 0 pantoprazole 40 MG tablet 40 mg PO DAILY RF: 0 oxycodone-acetaminophen [Percocet] 5-325 mg tablet 1 tab PO BID 7 Days Qty: 14 RF: 0 doxycycline monohydrate 100 mg capsule 100 mg PO BID 21 Days Qty: 42 RF: 1 doxycycline monohydrate 100 mg tablet 100 mg PO BID 21 Days Qty: 42 RF: 1 metronidazole [Flagyl] 500 mg tablet 500 mg PO TID Qty: 30 RF: 0 cefdinir 300 mg capsule 300 mg PO Q12H 21 Days Qty: 42 RF: 1 Primary Care Provider: Adina Bhat NP Referrals: Adina Bhat NP, [employer] [Primary Care Provider] - 2 Days for wound check Disposition Disposition: Home, Self Care
[2020-09-14] MEDS: HYDROcodone Bitartrate/Apap 5/325 Tablet PO (06:45)
[2020-09-14 06:47] LABS: Absolute Lymphocyte Count 2.59 X10^3/uL (0.83-4.51); Absolute Neutrophil Count 7.9 X10^3/uL (2.0-7.7); Basophil# 0.06 X10^3/uL; Basophil% 0.5 % (0-1); Eosinophils% 0.9 % (0-5); Hematocrit 35.2 % (40-54); Lymphocyte # 2.59 X10^3/ul (0.83-4.51); Lymphocyte % 22.9 % (19-41); Mean Corp Hgb Conc 31.3 g/dL (32-36); Mean Corpuscular Hgb 26.2 pg (27.0-32.0); Mean Corpuscular Volume 83.8 fL (80-94); Mean Platelet Vol. 8.4 fl (6.2-12.0); Monocyte# 0.61 X10^3/uL; Monocyte% 5.4 % (0-10); NRBC Flagged by Analyzer 0 % (0-5); Neutrophil % 69.8 % (47-70); Platelet Count 399 K/mm3 (150-450); RBC Distribution Width CV 14.8 % (11.6-14.6); White Blood Count 11.3 K/mm3 (4.4-11.0)
[2020-09-14 06:52] LABS: Erythrocyte Sedimentation Rate 97 mm/hr (0-20)
[2020-09-14 07:00] LABS: Anion Gap 6 (5-15); BUN 6 mg/dL (7-18); BUN/Creat Ratio 5.9 RATIO (10-20); Calcium,Total 8.8 mg/dL (8.5-10.1); Chloride 103 mmol/L (98-107); Creatinine, Serum 1.02 mg/dL (0.70-1.30); EST Glomerular Filtration Rate 80 mL/min (>60); Est Glom Filt Rate - Afr Amer 97 mL/min (>60); Estimated Creatinine Clearance 74.82 ml/min; Glucose 193 mg/dL (74-106); Potassium 4.1 mmol/L (3.5-5.1); Sodium Level 134 mmol/L (136-145)
== END 2020-09-14 08:21 | disposition home or self-care (01) ==
PROVIDERS: Emergency Provider Emergency Medicine; PCP Nurse Practitioner
DX: M25.572 Pain in left ankle and joints of left foot (principal); L03.90 Cellulitis, unspecified; F17.210 Nicotine dependence, cigarettes, uncomplicated; I25.2 Old myocardial infarction
CPT/HCPCS: 73610; 80048; 85025; 85652; 86140; 99284

== ENCOUNTER 2020-09-19 09:00 | Outpatient (RCR) | payer OTHER, SELFPAY ==
[2020-09-07 09:18] VITALS: BMI 23.1
[2020-09-11 00:26] VITALS: BP 193/71; PULSE 82; RESP 16; TEMP 36.3
[2020-09-19 09:05] VITALS: BP 199/82; PULSE 91; RESP 20; TEMP 36.3; BMI 22.1
--- NOTE | 2020-09-19 09:56 | PN.PCM_ITS ---
History of Present Illness Date of Service: 09/19/20 Chief Complaint: Nonhealing hidradenitis ulcer left inguinal, perineal, and base of scrotum. History of Wound: Surgery 03/22/20 - 1. Surgical preparation left inguinal area with excision hidradenitis (315 cm2 total wound). 2. Surgical preparation perineal area with excision hidradenitis (315 cm2 total wound). 3. Surgical preparation base left scrotum with incision and drainage and excision hidradenitis (315 cm2 total wound). Wound care - Rinse ulcer with Dakin's 0.25% moistened gauze daily to the left groin. Place Aquaphor-AG onto left groin ulcer and wick into the left posterior groin ulcer tunnel and cover with gauze daily. Wound culture from 09/05/20 positive for Streptococcus constellatus, Kocuria Kristinae, Staphylococcus epidermidis, Anaerobic cocci, Bacteroides caccae, Prevotella bivia and Lactobacillus fermentum. He is being treated with Cefdinir and Flagyl. Wound culture from 07/05/20 showed Methicillin resistant Staphylococcus haemolyticus, Corynebacterium striatum, and Prevotella bivia. He has completed the Doxycycline and Flagyl. He went to the ED on 05/29 for fevers. They cultured his left groin ulcer and it showed Ecoli, Klebsiella pneumoniae, Serratia marcenscens, Streptococcus constellatus, Staphylococcus peudintermedia. He continued the Levaquin and Flagyl and has completed them. Wound culture 05/20/20- Serratia marcenscens, Escherichia coli, Streptococcus group F, Anaerobic cocci, Prevotella disiens. He was started on Levaquin and Flagyl and has completed them. After speaking with Dr. Palmer, the Strep group F was covered by the Levaquin. Operative culture from 03/22/20 - Enterococcus faecalis and Streptococcus group F, Anaerobic cocci and Prevotella bivia. He was treated with Linezolid and Flagyl and has completed them. He was hospitalized on 05/19/20 and his Hgb was 5.6. He received PRBC. EGD was done on 05/26/20. According to the patient he has a gastric ulcer and is being treated medically. He is scheduled to have a colonoscopy as well. Pathology - hidradenitis. Prealbumin from 03/23/20 was 8.2. Encourage nutritional supplementation with protein to help the healing process. HgbA1c from 03/11/20 was 8.8. Ultrasound of his his left lower extremity ordered and done 04/15/2020. It showed there was no evidence of left lower extremity deep vein thrombosis. Valves are competent and compressible. He will wear Tubigrip for compression. Instructed him to keep legs elevated when sitting. Instructed him to avoid standing for long periods of time. Today he denies fever. His appetite has not been good. Encouraged protein supplementation. Objective Data Objective Data Vital Signs: Vital Signs Temp Pulse Resp BP 97.4 F L 91 20 H 199/82 H 09/19/20 09:05 09/19/20 09:05 09/19/20 09:05 09/19/20 09:05 Weight: 161 lb Body Mass Index (BMI) 22.1 Charges/Coding Procedures Integumentary [id number]: [id number] Ayla subq tissue 20 sq cm/< Physical Exam Const alert and oriented x3 General Appearance: cooperative HEENT normocephalic Head and Scalp: atraumatic Eyes PERRL Lymph Lymphatic: no lymphedema noted Resp normal respiratory effort Cardio regular rate GI non-tender Palpation: soft Extremity normal capillary refill General Extremity: Negative for edema Skin Wound Narrative: Left groin ulcers are beefy pink. Tunneling on the posterior u lcer. He continues to have areas at the base of his scrotum where he has flare of his hidradenitis and will drain a thick, white drainage. Neuro CN's II-XII intact bilaterally Psych Appearance: grossly normal Debridement Note Debridement Note Post-Debridement Measurements and Additional Note: Post-Debridement Measurements/Treatment - Nurse 1 - General Ulcer Assessment Start: 09/19/20 09:05 Freq: Status: Active Protocol: [email or web address].[email or web address] Activity Type Activity Date Activity User E-Sign Co-Sign Detail Recorded Client Recorded Date Recorded By Document 09/19/20 09:05 BREANNA [id number] 09/19/20 09:14 DL 09/19/20 09:05 - Today's Visit Information Type of service Follow-up Visit (Physician/[employer] ) Arrival Mode Ambulatory Transfer Assistance Transfer Board Patient Identification Verified (Name & Yes ) Patient Requires Transmission-Based No Precautions Height and Weight Body Mass Index (BMI) 22.1 BMI Classification Normal Vital Signs Temperature (97.8 F-99.1 F) 97.4 F L Temperature Source Temporal Pulse Rate (60-100) 91 Pulse Location Monitor Respiratory Rate (12-18) 20 H Respiratory rate source Observation Blood Pressure (90/60-120/80) 199/82 H Blood Pressure Mean (mm Hg) 121 Source Monitor History Since Last Visit- (Skip if this is Patient's initial visit) Any new allergies or adverse reactions No Had a fall/change in ADL's that may No increase risk of falls Signs or symptoms of abuse and/or No neglect since last visit Have you been in the hospital since your No last visit? Has dressing in place as prescribed Yes Has compression in place as prescribed N/A Pain Scale: 0-10 Numeric Is Patient Pain Free? Yes WC - Nurse 1 - General Ulcer Measurement Start: 09/19/20 09:05 Freq: Status: Active Protocol: Activity Type Activity Date Activity User E-Sign Co-Sign Detail Recorded Client Recorded Date Recorded By Document 09/19/20 09:05 BREANNA [id number] 09/19/20 09:14 BREANNA 09/19/20 09:05 Wound Center Nurse 1 2-left posterior groin -Current Size (cm) - Length 0.2 -Current Size (cm) - Width 0.4 -Current Size (cm) - Depth 2.6 -Total Square Cm 0.08 -Tunneling Position (O'clock) 1 -Tunneling Distance (cm) 2.6 -Exudate Amt Medium -Exudate Type Serosanguineous -Wound Margin Distinct, Outline Attached -Granulation Amt Medium (34-66%) -Granulation Quality Red -Necrosis Amt None Present (0 %) -Texture ([place]imbola-wound Skin Appearance) Assessed, Scarring -Moisture ([place]ola-wound Skin Appearance) No Abnormality, Assessed -Color ([place]imbola-wound Skin Appearance) No Abnormality, Assessed -Temperature ([place]imbola-wound Skin No Abnormality Appearance) (Pt Warm) -Tenderness on Palpation ([place]imbola-wound No Skin Appearance) -Ulcer Cleansing Rinsed/ Irrigated with Saline -Foul Odor after Cleansing No -Anesthetic Used 4% Lidocaine Solution #1- L GROIN -Current Size (cm) - Length 6.7 -Current Size (cm) - Width 2.4 -Current Size (cm) - Depth 0.2 -Total Square Cm 16.08 -Exudate Amt Medium -Exudate Type Serosanguineous -Wound Margin Distinct, Outline Attached -Granulation Amt Medium (34-66%) -Granulation Quality Red -Necrosis Amt None Present (0 %) -Texture ([place]imbola-wound Skin Appearance) Assessed, Scarring -Moisture ([place]imbola-wound Skin Appearance) No Abnormality, Assessed -Color ([place]imbola-wound Skin Appearance) No Abnormality, Assessed -Temperature ([place]imbola-wound Skin No Abnormality Appearance) (Pt Warm) -Tenderness on Palpation ([place]imbola-wound No Skin Appearance) -Ulcer Cleansing Rinsed/ Irrigated with Saline -Foul Odor after Cleansing No -Anesthetic Used 4% Lidocaine Solution WC - Nurse 2 - General Ulcer CM Notes Start: 09/19/20 09:05 Freq: Status: Active Protocol: Activity Type Activity Date Activity User E-Sign Co-Sign Detail Recorded Client Recorded Date Recorded By Document 09/19/20 09:39 LIZETTE [id number] 09/19/20 09:42 LIZETTE 09/19/20 09:39 Wound Center Nurse 2 2-left posterior groin -Time 09:39 -Correct Patient Yes -Correct Side, Site, Position Yes -Correct Procedure Yes -Procedure Performed Yes -Type of Procedure Debridement -Clinical Debridement Subcutaneous -Tissue Removed Subcutaneous -Post Debridement (cm) - Length 0.3 -Post Debridement (cm) - Width 0.2 -Post Debridement (cm) - Depth 3.5 -Total Square (Post) (cm) 0.06 -Area of Debridement (cm) - Length 0.3 -Area of Debridement (cm) - Width 0.2 -Total Square (Area) (cm) 0.06 -Tunneling No -Undermining/Tunneling No -Circular Undermining No -Wound/Ulcer Outcome Healed- Surgical Closure -Foul Odor after Cleansing No -Bioengineered Tissue No -Bleeding Controlled with Pressure -Offloading No -Treatment Response Procedure Tolerated Well -Debridement - Subq, 1st 20sq cm Yes #1- L GROIN -Time 09:39 -Correct Patient Yes -Correct Side, Site, Position Yes -Correct Procedure Yes -Procedure Performed Yes -Type of Procedure Debridement -Clinical Debridement Subcutaneous -Tissue Removed Subcutaneous -Post Debridement (cm) - Length 6.5 -Post Debridement (cm) - Width 2.5 -Post Debridement (cm) - Depth 0.2 -Total Square (Post) (cm) 16.25 -Area of Debridement (cm) - Length 6.5 -Area of Debridement (cm) - Width 2.5 -Total Square (Area) (cm) 16.25 -Tunneling No -Undermining/Tunneling No -Circular Undermining No -Wound/Ulcer Outcome Not Healed -Ulcer Cleansing Rinsed/ Irrigated with Saline -Foul Odor after Cleansing No -Bioengineered Tissue No -Bleeding Controlled with Pressure -Offloading No -Treatment Response Procedure Tolerated Well -Debridement - Subq, 1st 20sq cm No Pain Scale: 0-10 Numeric Is Patient Pain Free? Yes - Nurse 3 - General Ulcer D/C NN Start: 09/19/20 09:05 Freq: Status: Active Protocol: Activity Type Activity Date Activity User E-Sign Co-Sign Detail Recorded Client Recorded Date Recorded By Document 09/19/20 09:53 LIZETTE [id number] 09/19/20 09:54 LIZETTE 09/19/20 09:53 Wound Care Nurse 3 2-left posterior groin -Ulcer Cleansing Rinsed/ Irrigated with Saline -Foul Odor after Cleansing No -Primary Dressing Applied Aquacel AG 4x4 -Primary Dressing Covered/Secured with Dry Gauze & Roll Gauze, Secured with Tape -Aquacel AG 4x4 1 #1- L GROIN -Ulcer Cleansing Rinsed/ Irrigated with Saline -Foul Odor after Cleansing No -Primary Dressing Applied Aquacel AG 4x4 -Primary Dressing Covered/Secured with Dry Gauze, Secured with Tape -Aquacel AG 4x4 0 Pain Scale: 0-10 Numeric Is Patient Pain Free? Yes - Visit Discharge Discharge Condition Stable Ambulatory Status Ambulatory Transportation Private Auto Medication Reconcilliation completed & Yes provided to patient/care provider Clinical Summary of Care Provided Yes Wound debrided: Groin/scrotal ulcer Laterality: Left Type of Debridement: Excisional debridement Anesthesia Used: 5% Lidocaine Gel Depth: Down to and including healthy tissue and in the subcutaneous layer Percentage of wound debrided: 100 Instrument Used: 5mm curette Tissue Removed: Subcutaneous tissue and slough Severity: Fat Layer Exposed Amount of bleeding with debridement: Mild Bleeding Controlled with: Pressure Patient tolerated procedure: Patient tolerated procedure well Additional Wound Wound debrided: Posterior groin ulcer/tunnel Laterality: Left Type of Debridement: Excisional debridement Anesthesia Used: 5% Lidocaine Gel Depth: Down to and including healthy tissue and in the subcutaneous layer Percentage of wound debrided: 100 Instrument Used: 5mm curette Tissue Removed: Subcutaneous tissue and slough Severity: Fat Layer Exposed Amount of bleeding with debridement: Mild Bleeding Controlled with: Pressure and Compression and gauze Patient tolerated procedure: Patient tolerated procedure well Assessment/Plan Assessment/Plan (1) Ulcer of left groin with fat layer exposed: CODE(S): L98.492 - Non-pressure chronic ulcer of skin of other sites with fat layer exposed (2) Ulcer of perineum with fat layer exposed: CODE(S): L98.492 - Non-pressure chronic ulcer of skin of other sites with fat layer exposed (3) Skin ulcer of scrotum: CODE(S): N50.89 - Other specified disorders of the male genital organs (4) Tobacco dependence syndrome: CODE(S): F17.200 - Nicotine dependence, unspecified, uncomplicated (5) Acute postoperative anemia due to expected blood loss: CODE(S): D62 - Acute posthemorrhagic anemia (6) Diabetes mellitus type 2, uncontrolled, with complications: CODE(S): E11.8 - Type 2 diabetes mellitus with unspecified complications; E11.65 - Type 2 diabetes mellitus with hyperglycemia (7) Infliximab (Remicade) long-term use: CODE(S): Z79.899 - Other watermelon inspector (current) drug therapy (8) Hidradenitis suppurativa of anus: CODE(S): L73.2 - Hidradenitis suppurativa (9) Hydradenitis: CODE(S): L73.2 - Hidradenitis suppurativa PLAN: Rinse wound with Dakin's and then place Aquacel-Ag onto the left groin ulcer with Aquacel-Ag wicked into the tunnel at 6 o'clock, covered by ABD dressing changes daily. At home he can use a handheld shower to rinse his groin and perineal area when showering and after going to the bathroom. Wound culture from 09/05/20 positive for Streptococcus constellatus, Kocuria Kristinae, Staphylococcus epidermidis, Anaerobic cocci, Bacteroides caccae, Prevotella bivia and Lactobacillus fermentum. He is being treated with Cefdinir and Flagyl. Wound culture from 07/05/20 showed Methicillin resistant Staphylococcus haemolyticus, Corynebacterium striatum, and Prevotella bivia. He has completed the Doxycycline and Flagyl. Ultrasound of his his left lower extremity ordered and done on 04/15/2020. It showed there was no evidence of left lower extremity deep vein thrombosis. Valves are competent and compressible. He will wear Tubigrip for compression. Instructed him to keep legs elevated when sitting. Instructed him to avoid standing for long periods of time. He was hospitalized 05/19-05/20/20 for Acute blood loss anemia. He received 2 units of PRBCs for a Hgb 5.6. Repeat Hgb 9.4 from 05/25/20. Repeat Hgb 9.9 from 07/18/20. EGD 05/26/20, patient states he has an ulcer which is being treated medically. He is scheduled to have a colonoscopy as well. Prealbumin from 03/23/20 was 8.2. Encourage nutritional supplementation with protein to help the healing process. Discussed this at length with both the patient and his . He has been drinking Boost. HgbA1c from 03/11/20 was 8.8. If a skin graft is needed in the future, his HgbA1c needs to be less than 8. He voices understanding. Discussed further surgery with the patient regarding his right inguinal area and the base of his scrotum. His perianal area is stable at the moment. If that area worsens, sometimes a diverting colostomy is needed as well as surgical excision followed by wound care in order for his perianal wounds to heal. He voices understanding. Once healed, the colostomy can be reversed. He states his right side drains intermittently but is not stopping him from activities of daily living at the present time. He is working ok. He would like to wait ideally until the Fall to proceed with surgery. Will continue to observe. He understands that if the right side gets acute infected that needs IV antibiotics in the hospital, then operative intervention would be needed sooner before the Fall. He is back to work and is doing ok. Encouraged patient to stop smoking as it may have deleterious effects on wound healing. Patient had questions about if he should receive the Covid-19 vaccine. Dis cussed the pros and cons of both receiving and not receiving the vaccine. With his significant medical history, of being on Remicade and smoking, it would benefit him to receive the vaccine. He states he will think about it. Followup two weeks.
== END 2020-10-11 23:59 ==
LOC: WC 09:00
PROVIDERS: PCP Nurse Practitioner; Referring Provider Nurse Practitioner Family; Visit Provider Nurse Practitioner Family
DX: L73.2 Hidradenitis suppurativa (principal); L98.492 Non-pressure chronic ulcer of skin of other sites with fat layer exposed; E11.622 Type 2 diabetes mellitus with other skin ulcer; E11.65 Type 2 diabetes mellitus with hyperglycemia
CPT/HCPCS: 11042

== ENCOUNTER 2020-09-27 19:00 | Inpatient (IN) | payer OTHER, SELFPAY ==
[2020-09-27 19:02] VITALS: BP 173/81; PULSE 106; RESP 18; TEMP 36.2; O2SAT 100; BMI 22.8
--- NOTE | 2020-09-27 19:41 | CT_ITS ---
STUDY: CT LEFT FEMUR WITH CONTRAST REASON FOR EXAM: Male, 55 years old. Wound left femur/buttock. Cellulitis. Hx of COPD, HTN, heart stent RADIATION DOSAGE (If Supplied By Facility): CTDIvol = ( 16.64 ) mGy, DLP = ( 1132.93 ) mGycm TECHNIQUE: Transaxial CT imaging of the femur was performed post contrast administration. The examination was performed with intravenous administration of IV 100mL Isovue-370. Sagittal and coronal images were reconstructed. Individualized dose optimization techniques were used for this CT. COMPARISON: None. FINDINGS: The skin in the perineum and inner buttock regions is moderately thickened and indurated. The perianal soft tissues are also moderately thickened. Moderate to significant thickening of the skin and induration of the underlying subcutaneous fat is seen in the medial and posterior aspects of the left upper thigh with 2 loculated ovoid fluid collections located in the subcutaneous fat and lateral aspect of the left buttock measuring 6.66 x 1.26 cm and the second collection is present in the posterior and slightly medial aspect of the left thigh measuring 11.0 x 5.39 x 1.38 cm. The outer investing fascia of the semimembranosus and semitendinosus muscles is mildly thickened and forms a posterior wall of the fluid collection in the upper to mid thigh region, however the underlying muscles and intervening fat plane are preserved. The remaining muscles of the anterior and posterior compartments of the left extremity are normal. Subcutaneous abscesses are favored particularly given the extension from the perineum/upper gluteal region into these collections. Alternatively the loculated fluid collections could be related to chronic pressure sores, with granulation/inflammatory cells and cellulitis. Aspiration or wound washout can be performed for definitive pathologic diagnosis. No visualized subcutaneous gas. Small cortical-based cyst of the left kidney noted. The remaining visualized internal structures of the abdomen and pelvis are grossly unremarkable. Degenerative changes are present in the knee and hip joints. No fracture is seen. There is no evidence of osteomyelitis. Normal visualized femur. IMPRESSION:Subcutaneous abscesses are favored particularly given the extension from the perineum/upper gluteal region into these upper posterior left thigh collections. Alternatively the loculated fluid collections could be related to chronic pressure sores, with granulation/inflammatory cells and cellulitis. 1. The skin in the perineum and inner buttock regions is moderately thickened and indurated. The perianal soft tissues are also moderately thickened. Moderate to significant thickening of the skin and induration of the underlying subcutaneous fat is seen in the medial and posterior aspects of the left upper thigh with 2 loculated ovoid fluid collections located in the subcutaneous fat and lateral aspect of the left buttock measuring 6.66 x 1.26 cm and the second collection is present in the posterior and slightly medial aspect of the left thigh measuring 11.0 x 5.39 x 1.38 cm. 2. The outer investing fascia of the semimembranosus and semitendinosus muscles is mildly thickened and forms a posterior wall of the fluid collection in the upper to mid thigh region, however the underlying muscles and intervening fat plane are preserved. Electronically Signed: Kalin Raman MD at 22:16 EDT , Service support , CT/Extremity Lower WITH Contrast
[2020-09-27] MEDS: 0.9% Normal Saline 1,000 ML 999 ML IV (20:03)
[2020-09-27] MEDS: Morphine 4 MG/ML Syringe IV (20:04)
[2020-09-27 20:16] LABS: Absolute Lymphocyte Count 2.37 X10^3/uL (0.83-4.51); Absolute Neutrophil Count 8.2 X10^3/uL (2.0-7.7); Basophil# 0.05 X10^3/uL; Basophil% 0.4 % (0-1); Eosinophils% 0.9 % (0-5); Hematocrit 32.6 % (40-54); Hemoglobin 10.1 g/dL (13.0-16.5); Lymphocyte # 2.37 X10^3/ul (0.83-4.51); Lymphocyte % 20.9 % (19-41); Mean Corpuscular Hgb 26.2 pg (27.0-32.0); Mean Corpuscular Volume 84.7 fL (80-94); Monocyte# 0.53 X10^3/uL; Monocyte% 4.7 % (0-10); NRBC Flagged by Analyzer 0 % (0-5); Neutrophil # 8.24 X10^3/uL (2.7-7.7); Neutrophil % 72.6 % (47-70); Platelet Count 349 K/mm3 (150-450); RBC Distribution Width CV 14.6 % (11.6-14.6); RBC Distribution Width SD 44.9 fl (35.1-43.9); Red Blood Count 3.85 M/mm3 (4.6-6.2); White Blood Count 11.4 K/mm3 (4.4-11.0)
[2020-09-27 20:39] LABS: ALB/GLOB Ratio 0.4 RATIO (0.9-2.4); AST(SGOT) 12 U/L (15-37); Alanine Aminotransfer ALT/SGPT 20 U/L (16-61); Albumin, Serum 2.1 g/dL (3.2-5.0); Alkaline Phosphatase 85 U/L (45-117); Anion Gap 6 (5-15); BUN 12 mg/dL (7-18); BUN/Creat Ratio 11.3 RATIO (10-20); Calcium,Total 8.9 mg/dL (8.5-10.1); Chloride 99 mmol/L (98-107); Creatinine, Serum 1.06 mg/dL (0.70-1.30); EST Glomerular Filtration Rate 77 mL/min (>60); Est Glom Filt Rate - Afr Amer 93 mL/min (>60); Estimated Creatinine Clearance 73.99 ml/min; Glucose 196 mg/dL (74-106); Protein, Total 8.1 g/dL (6.4-8.2); Sodium Level 132 mmol/L (136-145)
[2020-09-27 20:41] LABS: Lactic Acid 1.1 mmol/L (0.4-1.9)
[2020-09-27 21:00] VITALS: BP 124/88; PULSE 72; RESP 12; O2SAT 95
[2020-09-27] MEDS: Vancomycin IV 1,000 MG/200 ML BAG 200 MG IV (21:16)
[2020-09-27 22:38] VITALS: BP 163/76; PULSE 75; RESP 16; TEMP 37.1; O2SAT 99
--- NOTE | 2020-09-27 22:53 | EDS_ITS ---
HPI History of Present Illness Chief Complaint: Cellulitis Informant: patient Onset/Context/Timing Onset: Weeks (1) Context: Gradual Onset Timing: Continuous Current Severity: Severe Maximum Severity: Severe Worsened by: palpation, movement Relieved by: remaining still Associated Symptoms Associated Symptoms: see below. no fevers/chills or other new systemic sx. Narrative Narrative: Patient presents with painful swollen area in his left medial posterior thigh that has become erythematous he thinks in the past week, he is not exactly sure, but it developed while he was on doxycycline. He is a very poor historian with regards to the details, but states that a nurse practitioner with Dr. Smith sent him to the hospital to possibly be admitted, although they did not call to discuss an I am limited to the information given to me by the patient. Patient states back in March he had a surgery in his left groin and buttocks to remove an abnormal area of tissue related to hidradenitis suppurativa, and he is supposed to go back for other surgeries later after this heals. He has been having wound care in order to get these wounds to heal. Around 2 weeks ago he developed some redness at the medial aspect of his left ankle and was put on doxycycline. Similar timeframe, he had a wound culture done, was put on antibiotics empirically, and when the culture returned he was narrowed down to doxycycline as well. States he had 2 prescriptions, he saved one of them and started taking it several days ago, starting it a couple days after he finished the other 1 that he took for 10 days. During all of this, his left thigh distal to the wound started to become red, swollen, and painful. He states if I press hard enough, I can get more discharge to come out of my open wound. [facility] Medical History Acute blood loss anemia Anemia Anemia of chronic disease COPD (chronic obstructive pulmonary disease) Diabetes mellitus type 2, uncontrolled, with complications Diabetes type 2, uncontrolled Heart disease Hidradenitis suppurativa of anus Hydradenitis Hydradenitis Hyperlipidemia associated with type 2 diabetes mellitus Hypertension Malnutrition Myocardial infarct Pain in the groin Skin ulcer of scrotum Ulcer of left groin with fat layer exposed Ulcer of perineum with fat layer exposed Home Medications tramadol 50 mg tablet 50 mg PO Q6H PRN 30 Days #120 tab 09/02/20 [Rx Last Taken Unknown] cefdinir 300 mg capsule 300 mg PO Q12H 21 Days #42 cap 09/09/20 [Rx Last Taken Unknown] Allergy/AdvReac Type Severity Reaction Status Date / Time Penicillins Allergy Unknown Verified 09/27/20 19:04 Sulfa (Sulfonamide Allergy Unknown Verified 09/27/20 19:04 Antibiotics) bupropion [From Wellbutrin] AdvReac Severe change in Verified 09/27/20 19:04 personality ,meanness and smoked more Family History (Reviewed 09/02/20 @ 20:45 by Adina Bhat SHOWER SCREEN INSTALLER, SHOWER SCREEN INSTALLER-C) Aunt Lung disease lung cancer Father Heart disease Hypertension Family history of high cholesterol Diabetes Mother Diabetes Daughter Epilepsy Surgical History History of removal of cyst History of tonsillectomy and adenoidectomy Hx of hernia repair Stented coronary artery Social History Smoking Status: Current every day smoker tobacco type: cigarettes alcohol intake: never substance use type: does not use additional social history: DOES NOT TAKE ASPIRIN DOES NOT TAKE IBUPROFEN ROS ROS ED Constitutional Constitutional ED: Denies chills or fever(s) Eyes Eyes: Denies change in vision or diplopia ENT ENT ED: Denies rhinorrhea or sore throat Cardiovascular Cardiovascular: Denies chest pain or palpitations Respiratory/Chest Respiratory/Chest: Denies cough or dyspnea Gastrointestinal Gastrointestinal: Denies abdominal pain, diarrhea, nausea or vomiting Genitourinary Genitourinary ED: Denies dysuria or hematuria Musculoskeletal Musculoskeletal: Reports as per HPI and extremity pain; Denies back pain or neck pain Integumentary Reports as per HPI, rash and wounds Neurologic Neurologic: Denies headache(s), paresthesias or weakness Psychiatric Psychiatric: Denies anxiety or suicidal thoughts EXAM Physical Exam Const Vital Signs: 09/27/20 19:02 09/27/20 20:02 09/27/20 21:00 Temperature 97.2 F L Temperature Source Temporal Pulse Rate 106 H 72 Respiratory Rate 18 12 Blood Pressure 173/81 H 124/88 H Blood Pressure Mean 111 100 Pulse Ox 100 95 Oxygen Delivery Method Room Air Room Air Room Air 09/27/20 22:38 Temperature 98.7 F Temperature Source Temporal Pulse Rate 75 Respiratory Rate 16 Blood Pressure 163/76 H Blood Pressure Mean 105 Pulse Ox 99 Oxygen Delivery Method Room Air Positive well nourished and well developed General Appearance ED: well developed and NAD HEENT Reports moist mucous membranes normocephalic and atraumatic Eyes PERRL and EOMs intact bilaterally Neck full ROM and supple Resp normal respiratory effort and clear to auscultation bilaterally Cardio regular rate, regular rhythm and no murmurs GI non-tender and non-distended Auscultation: normoactive bowel sounds Palpation: soft Back/Spine no CVA tenderness General Back: other FROM Extremity Extremity Narrative: Tender in erythematous area left proximal medial thigh, down to almost the mid-thigh. All compartments soft. Full range of motion of hip and knee as well as the ankle which is mildly tender at a small erythematous area at the medial malleolus, where there is no soft tissue swelling or lymphangitis. General Extremety ED: Yes tenderness; Negative for edema or pulses abnormal General Extremity: Negative for edema or pulses abnormal Neuro oriented x3, CN's II-XII intact bilaterally and no sensory deficits noted Sensorium / Orientation: awake and alert Motor Exam: strength 5/5 throughout Skin Skin Narrative: Large open wound with granulation tissue in the left groin, progressing posterior toward the perineum/buttock, with some mild thin discharge present in multiple areas. Distal to the wound, in the thigh, very tender erythema and feels nodular to palpation. MDM MDM MDM Narrative Medical decision making narrative: Septic work-up was performed including blood cultures prior to starting vancomycin for 3 recent organisms seen in the recent wound culture, all of which are sensitive to vancomycin. Blood work is all unremarkable including normal lactate, except for white blood count slightly abnormal 11.4. I performed a CT of the hip and thigh to evaluate the soft tissue areas, it confirms the presence of multiple abscesses. I discussed with Dr. Smith, he was unaware the patient was here and agrees with admitting him and he will consult and see the patient tomorrow. Discussed with hospitalist. Lab Data Attestation: I reviewed the patient's lab results. Labs: Laboratory Results - last 24 hr 09/27/20 09/27/20 09/27/20 20:00 20:00 20:00 WBC 11.4 H RBC 3.85 L Hgb 10.1 L Hct 32.6 L MCV 84.7 MCH 26.2 L MCHC 31.0 L RDW Std Deviation 44.9 H RDW Coeff of Dana 14.6 Plt Count 349 MPV 9.0 Immature Gran % (Auto) 0.500 Neut % (Auto) 72.6 H Lymph % (Auto) 20.9 [place] % (Auto) 4.7 Eos % (Auto) 0.9 Baso % (Auto) 0.4 Absolute Neuts (auto) 8.2 H Absolute Lymphs (auto) 2.37 Nucleated RBC % 0 Sodium 132 L Potassium 4.0 Chloride 99 Carbon Dioxide 27.0 Anion Gap 6 BUN 12 Creatinine 1.06 Estim Creat Clear Calc 73.99 Est GFR (MDRD) Af Amer 93 Est GFR (MDRD) Non-Af 77 BUN/Creatinine Ratio 11.3 Glucose 196 H Lactic Acid 1.1 Calcium 8.9 Total Bilirubin 0.20 AST 12 L ALT 20 Alkaline Phosphatase 85 Total Protein 8.1 Albumin 2.1 L Globulin 6.0 H Albumin/Globulin Ratio 0.4 L Radiography Diagnostic Testing: Radiology Impression Lower Extremity CT 09/27/20 19:41 Discharge Plan Dx/Rx/DC Orders Clinical Impression: Wound infection, Failure of outpatient treatment, Abscess of left thigh Disposition Disposition: Acute Care [facility]
--- NOTE | 2020-09-27 23:15 | HP.PCM_ITS ---
Documented by User: GUSTABO MoranC 09/27/20 23:46 HPI - General General Date of Admission: 09/27/20 Date of Service: 09/27/20 Chief Complaint: Nonhealing wound HPI Narrative SVEN DUONG, is a 55 M who presents with concerns regarding a nonhealing wound to left groin. Patient has a history of hydradenitis suppurativa. Patient has been following with Dr. Smith following his last surgery on 05/20/19. Patient states that his he has continued to have difficulties with his wound healing and has been on multiple courses of doxycycline and most recently cefdinir. Patient reports that he has noticed that area has become more red and more swollen and painful and has been able to get pussy discharge out of it. Patient also reports that he has diabetes mellitus type 2 that is uncontrolled. Patient denies fever, chills, shortness of breath, chest pain, cough, nausea, vomiting, diarrhea, constipation. [facility] Medical History (Updated 09/27/20 @ 23:59 by Irma Neely) Acute blood loss anemia Anemia Anemia of chronic disease COPD (chronic obstructive pulmonary disease) Coronary artery disease Diabetes Diabetes mellitus type 2, uncontrolled, with complications Diabetes type 2, uncontrolled Heart disease Hidradenitis suppurativa of anus Hydradenitis Hydradenitis Hyperlipidemia associated with type 2 diabetes mellitus Hypertension Malnutrition Myocardial infarct Pain in the groin Skin ulcer of scrotum Sleep apnea Smoker Ulcer of left groin with fat layer exposed Ulcer of perineum with fat layer exposed Home Medications tramadol 50 mg tablet 50 mg PO Q6H PRN 30 Days #120 tab 09/02/20 [Rx Last Taken 09/26/20 14:00] cefdinir 300 mg capsule 300 mg PO Q12H 21 Days #42 cap 09/09/20 [Rx Last Taken 09/27/20 09:00] Allergy/AdvReac Type Severity Reaction Status Date / Time Penicillins Allergy Unknown Verified 09/27/20 19:04 Sulfa (Sulfonamide Allergy Unknown Verified 09/27/20 19:04 Antibiotics) bupropion [From Wellbutrin] AdvReac Severe change in Verified 09/27/20 19:04 personality ,meanness and smoked more Family History Aunt Lung disease lung cancer Father Heart disease Hypertension Family history of high cholesterol Diabetes Mother Diabetes Daughter Epilepsy Surgical History (Updated 09/27/20 @ 23:59 by Irma Neely) History of coronary artery stent placement History of removal of cyst History of tonsillectomy and adenoidectomy Hx of CABG Hx of hernia repair Stented coronary artery Social History Smoking Status: Current every day smoker tobacco type: cigarettes alcohol intake: never substance use type: does not use additional social history: DOES NOT TAKE ASPIRIN DOES NOT TAKE IBUPROFEN ROS Constitutional Constitutional: Denies anorexia, chills, fever(s) or weakness Cardiovascular Cardiovascular: Denies chest pain, edema or palpitations Respiratory/Chest Respiratory/Chest: Denies cough, shortness of breath at rest, shortness of breath with exertion or wheezing Gastrointestinal Gastrointestinal: Denies abdominal pain, constipation, diarrhea, nausea or vomiting Genitourinary Genitourinary: Denies dysuria Musculoskeletal Musculoskeletal: Denies back pain, extremity pain, joint pain or joint stiffness Integumentary Integumentary: Reports wounds; Denies dry skin Neurologic Neurologic: Denies abnormal gait, abnormal speech, confusion, dizziness or focal weakness Psychiatric Psychiatric: Denies anxiety or depression Endocrine Endocrinology: Denies change in body appearance Hematologic/Lymphatic Hematologic/Lymphatic: Denies easy bleeding or easy bruising Vital Signs Vital Signs Vital Signs: 09/27/20 19:02 09/27/20 20:02 09/27/20 21:00 Temperature 97.2 F L Temperature Source Temporal Pulse Rate 106 H 72 Respiratory Rate 18 12 Blood Pressure 173/81 H 124/88 H Blood Pressure Mean 111 100 Pulse Ox 100 95 Oxygen Delivery Method Room Air Room Air Room Air 09/27/20 22:38 Temperature 98.7 F Temperature Source Temporal Pulse Rate 75 Respiratory Rate 16 Blood Pressure 163/76 H Blood Pressure Mean 105 Pulse Ox 99 Oxygen Delivery Method Room Air Weight Weight: 150 lb Body Mass Index (BMI) 22.8 Physical Exam Const alert and oriented x3 General Appearance: cooperative HEENT normocephalic and head/scalp atraumatic Eyes conjunctivae normal and no scleral icterus Neck supple and no JVD General: trachea midline Resp normal respiratory effort, normal air movement and clear to auscultation bilaterally Cardio regular rate, regular rhythm, S1 normal heart sound and S2 normal heart sound GI normal to inspection, nondistended, normoactive bowel sounds, soft to palpation and non-tender Extremity normal capillary refill and no clubbing, cyanosis or edema General Extremity: no tenderness to palpation of joints or extremities Skin Skin Narrative: Patient has a large open wound with granulation to left groin extending to the perineum and buttock. There is moderate amounts of purulent drainage noted in multiple areas. Surrounding tissue is erythematous. General Skin Exam: turgor normal Lesions: no lesions Rashes: no rashes Wounds: wounds noted Neuro no focal motor deficits and no sensory deficits noted Speech: speech normal Motor Exam: Negative for general weakness Psych thought process normal, cooperative and affect normal Appearance: appropriate Results Lab / Micro Data Result Diagrams: 09/27/20 20:00 09/27/20 20:00 Labs: Laboratory Results - last 24 hr 09/27/20 20:00: WBC 11.4 H, RBC 3.85 L, Hgb 10.1 L, Hct 32.6 L, MCV 84.7, MCH 26.2 L, MCHC 31.0 L, RDW Std Deviation 44.9 H, RDW Coeff of Dana 14.6, Plt Count 349, MPV 9.0, Immature Gran % (Auto) 0.500, Neut % (Auto) 72.6 H, Lymph % (Auto) 20.9, [place] % (Auto) 4.7, Eos % (Auto) 0.9, Baso % (Auto) 0.4, Absolute Neuts (auto) 8.2 H, Absolute Lymphs (auto) 2.37, Nucleated RBC % 0 09/27/20 20:00: Sodium 132 L, Potassium 4.0, Chloride 99, Carbon Dioxide 27.0, Anion Gap 6, BUN 12, Creatinine 1.06, Estim Creat Clear Calc 73.99, Est GFR (MDRD) Af Amer 93, Est GFR (MDRD) Non-Af 77, BUN/Creatinine Ratio 11.3, Glucose 196 H, Calcium 8.9, Total Bilirubin 0.20, AST 12 L, ALT 20, Alkaline Phosphatase 85, Total Protein 8.1, Albumin 2.1 L, Globulin 6.0 H, Albumin/Globulin Ratio 0.4 L 09/27/20 20:00: Lactic Acid 1.1 Radiology Impression Lower Extremity CT 09/27/20 19:41 Assessment & Plan Assessment/Plan (1) Abscess of left thigh: (2) Failure of outpatient treatment: PLAN: 1. Abscess of left thigh, failure of outpatient treatment -Admit to [facility] -Patient has completed multiple courses of doxycycline and most recently cefdinir. -Dr. Smith consulted, case discussed with him by ER physician. Patient has followed with Dr. Smith for months regarding this wound. -Vancomycin initiated in ER, will continue. Review of wound culture completed 09/05/2020 organisms all susceptible to vancomycin. -Consult case management for assistance with discharge planning, will need wound care follow-up -Consult wound nurse -Regular diet ordered, n.p.o. at midnight pending surgical evaluation in a.m. -Encourage I-S -O2 per protocol -Vital signs per protocol -CBC and BMP ordered for a.m. -Tylenol, oxycodone, morphine ordered as needed for pain 2. Hypertension -Patient not currently on medication regimen, noncompliant -Vital signs per protocol -As needed hydralazine ordered 3. Diabetes mellitus type 2 -AC at bedtime blood sugars with sliding scale insulin ordered -Consult nutrition, patient noncompliant with diet 4. Tobacco use -Inpatient smoking cessation ordered -1 to 1-1/2 packs/day smoker -Nicotine patch ordered DVT prophylaxis-SCDs This patient was seen by GUSTABO MoranC under the supervision of Dr. Chang. Documented by User: Dr. Herminio Chang MD 09/28/20 00:47 HPI - General General Date of Admission: 09/27/20 [facility] Medical History (Updated 09/27/20 @ 23:59 by Irma Neely) Acute blood loss anemia Anemia Anemia of chronic disease COPD (chronic obstructive pulmonary disease) Coronary artery disease Diabetes Diabetes mellitus type 2, uncontrolled, with complications Diabetes type 2, uncontrolled Heart disease Hidradenitis suppurativa of anus Hydradenitis Hydradenitis Hyperlipidemia associated with type 2 diabetes mellitus Hypertension Malnutrition Myocardial infarct Pain in the groin Skin ulcer of scrotum Sleep apnea Smoker Ulcer of left groin with fat layer exposed Ulcer of perineum with fat layer exposed Home Medications tramadol 50 mg tablet 50 mg PO Q6H PRN 30 Days #120 tab 09/02/20 [Rx Last Taken 09/26/20 14:00] cefdinir 300 mg capsule 300 mg PO Q12H 21 Days #42 cap 09/09/20 [Rx Last Taken 09/27/20 09:00] Allergy/AdvReac Type Severity Reaction Status Date / Time Penicillins Allergy Unknown Verified 09/27/20 19:04 Sulfa (Sulfonamide Allergy Unknown Verified 09/27/20 19:04 Antibiotics) bupropion [From Wellbutrin] AdvReac Severe change in Verified 09/27/20 19:04 personality ,meanness and smoked more Family History Aunt Lung disease lung cancer Father Heart disease Hypertension Family history of high cholesterol Diabetes Mother Diabetes Daughter Epilepsy Surgical History (Updated 09/27/20 @ 23:59 by Irma Neely) History of coronary artery stent placement History of removal of cyst History of tonsillectomy and adenoidectomy Hx of CABG Hx of hernia repair Stented coronary artery Social History Smoking Status: Current every day smoker tobacco type: cigarettes alcohol intake: never substance use type: does not use additional social history: DOES NOT TAKE ASPIRIN DOES NOT TAKE IBUPROFEN Results Lab / Micro Data Result Diagrams: 09/27/20 20:00 09/27/20 20:00 Charges/Coding Addendum Addendum: Patient was seen and examined independently. I agree with assessment and plan by Jane Morel NP-C In summary patient is a 55-year-old male with a significant history of hidradenitis suppurativa who had excision of his hidradenitis by Dr. Osman, plastic surgeon. He follows up with the wound care center. He reported that for the past 2 weeks he has had excruciating pain; swelling and tenderness of his posterior left thigh. Also he develop an area of erythema on his left ankle. He has been on multiple p.o. antibiotics. He called his plastic surgeon group/wound care and he was instructed to come to the emergency department. Physical exam: General: Well-nourished, well-developed, no acute distress Head: Normocephalic, atraumatic, no tenderness Eyes: PERRLA, EOMI ENT, no trauma, moist mucous membranes, no rhinorrhea Neck: Nontender, full range of motion, no spinal tenderness, deformities, step- off CVS: Regular rate and rhythm Respiratory no acute distress, clear to auscultation bilaterally, chest wall n ontender, no wheezing Abdomen: Soft, nontender, nondistended, normal bowel sounds, no masses : Deferred Back: Nontender, no CVA tenderness, no midline spinal tenderness, deformities, step-offs Extremities: Nontender full range of motion, no trauma Skin: Open wound and drainage on the buttocks; tender. Erythema of left ankle. Neuro: Alert, oriented, cranial nerves II through XII grossly intact. Psychiatry: Normal mood. Normal affect. Not depressed. Not anxious. Abscess of left thigh Wound culture obtained on 09/05/2020 showed up a polymicrobial infection susceptible to Flagyl and vancomycin. Vancomycin and Flagyl ordered. Trend CBC and BMP. N.p.o. after midnight. Consult plastic surgery. Tobacco abuse Counseled Nicotine patch prescribed. Hypertension Blood pressure is not within goal Previously prescribed lisinopril but patient has not been taking. Lisinopril ordered. As needed hydralazine ordered. Trend blood pressure and adjust blood pressure medications. Diabetes mellitus Patient with hyperglycemia on presentation Accu-Chek with correction scale insulin ordered. DVT prophylaxis: SCD ordered. Visit Charges [facility]M: [id number]
[2020-09-27 23:30] VITALS: BP 163/76; PULSE 75; RESP 16; TEMP 37.1; O2SAT 99
[2020-09-27 23:40] VITALS: BMI 22.4
[2020-09-28] VITALS (11 sets, daily range): BP systolic 150–189; BP diastolic 63–82; PULSE 68–96; RESP 12–18; TEMP 36.7–37.4; O2SAT 97–100
[2020-09-28] MEDS: 0.9% Normal Saline 1,000 ML 100 ML IV ×2 (00:50→17:25)
[2020-09-28] MEDS: Morphine 2 MG/ML Syringe IV ×2 (00:53→06:14)
[2020-09-28] MEDS: metroNIDAZOLE 500 MG/100 ML BAG 100 MG IV ×4 (01:00→22:42)
--- NOTE | 2020-09-28 02:24 | PCM.RX.CS ---
Consult Pharmacy has been consulted to manage selected antiobiotic: Vancomycin Type of Consult: New start Suspected Infection: Skin/Soft tissue Labs: Sodium 132 mmol/L (136-145) L 09/27/20 20:00 Potassium 4.0 mmol/L (3.5-5.1) 09/27/20 20:00 Chloride 99 mmol/L (98-107) 09/27/20 20:00 Carbon Dioxide 27.0 mmol/L (21.0-32.0) 09/27/20 20:00 Anion Gap 6 (5-15) 09/27/20 20:00 BUN 12 mg/dL (7-18) 09/27/20 20:00 Creatinine 1.06 mg/dL (0.70-1.30) 09/27/20 20:00 Est GFR (MDRD) Af Amer 93 mL/min (>60) 09/27/20 20:00 Est GFR (MDRD) Non-Af 77 mL/min (>60) 09/27/20 20:00 BUN/Creatinine Ratio 11.3 RATIO (10-20) 09/27/20 20:00 Glucose 196 mg/dL (74-106) H 09/27/20 20:00 Goal Trough: 10-15 mcg/mL Pharmacy Plan for Drug Dosing: Pharmacy Service will continue to monitor and adjust dosing as required. Medications Vancomycin HCl 750 mg/ Sodium (Chloride) 265 mls @ 250 mls/hr IV Q12H MAE Discontinued Medications Vancomycin HCl (Vancomycin) 1,000 mg in 200 mls @ 200 mls/hr 15 mg/kg (1000 mg) IV X1 ONE Stop: 09/27/20 20:40 Last Admin: 09/27/20 22:31 Dose: Infused Documented by: Follow-Up Labs: Trough Vancomycin Labs to be done on [date and time ordered]: 09/29 @ 4001
[2020-09-28 05:53] LABS: Absolute Lymphocyte Count 2.28 X10^3/uL (0.83-4.51); Absolute Neutrophil Count 6.7 X10^3/uL (2.0-7.7); Basophil# 0.03 X10^3/uL; Basophil% 0.3 % (0-1); Eosinophil# 0.16 X10^3/uL; Eosinophils% 1.6 % (0-5); Hemoglobin 9.2 g/dL (13.0-16.5); Lymphocyte # 2.28 X10^3/ul (0.83-4.51); Lymphocyte % 23.2 % (19-41); Mean Corp Hgb Conc 30.7 g/dL (32-36); Mean Corpuscular Hgb 26.1 pg (27.0-32.0); Mean Corpuscular Volume 85.2 fL (80-94); Mean Platelet Vol. 9.2 fl (6.2-12.0); Monocyte# 0.57 X10^3/uL; Monocyte% 5.8 % (0-10); NRBC Flagged by Analyzer 0 % (0-5); Neutrophil # 6.73 X10^3/uL (2.7-7.7); Neutrophil % 68.6 % (47-70); Platelet Count 333 K/mm3 (150-450); RBC Distribution Width CV 14.6 % (11.6-14.6); RBC Distribution Width SD 45.7 fl (35.1-43.9); Red Blood Count 3.52 M/mm3 (4.6-6.2); White Blood Count 9.8 K/mm3 (4.4-11.0)
[2020-09-28] MEDS: 0.9% Saline Lock 10 ML Syringe IV ×3 (06:14→21:22)
[2020-09-28 06:17] LABS: Anion Gap 6 (5-15); BUN 8 mg/dL (7-18); BUN/Creat Ratio 9.5 RATIO (10-20); Calcium,Total 8.7 mg/dL (8.5-10.1); Chloride 105 mmol/L (98-107); Creatinine, Serum 0.84 mg/dL (0.70-1.30); EST Glomerular Filtration Rate 99 mL/min (>60); Est Glom Filt Rate - Afr Amer 120 mL/min (>60); Estimated Creatinine Clearance 91.54 ml/min; Glucose 142 mg/dL (74-106); Sodium Level 137 mmol/L (136-145)
[2020-09-28 06:21] LABS: Bedside Glucose 141 mg/dL (70-110)
[2020-09-28] MEDS: oxyCODONE 5 MG Tablet PO (07:27)
[2020-09-28] MEDS: Morphine 2 MG/ML Syringe 4 MG IV ×2 (09:45→22:28)
[2020-09-28] MEDS: Lisinopril 10 MG Tablet PO (09:48)
--- NOTE | 2020-09-28 09:59 | PN.HOSP_ITS ---
Subjective Subjective Patient was seen and examined. he complained of pain in his perineum. Going for surgery today. Kept NPO. Objective Data Objective Data Vital Signs: Vital Signs Temp Pulse Resp BP Pulse Ox 98.4 F 74 16 156/79 H 99 09/28/20 06:07 09/28/20 07:22 09/28/20 06:07 09/28/20 07:22 09/28/20 06:07 Oxygen Delivery Method Room Air Weight: 66.7 kg Body Mass Index (BMI) 22.4 Intake & Output: Intake and Output for Last 24 Hours 09/26/20 09/27/20 09/28/20 23:59 23:59 23:59 Intake Total 1200 / 1200 895.00 / 895.00 Balance 1200 / 1200 895.00 / 895.00 Lab / Micro Data Result Diagrams: 09/28/20 05:08 09/28/20 05:08 Labs: Laboratory Results - last 24 hr 09/27/20 20:00: WBC 11.4 H, RBC 3.85 L, Hgb 10.1 L, Hct 32.6 L, MCV 84.7, MCH 26.2 L, MCHC 31.0 L, RDW Std Deviation 44.9 H, RDW Coeff of Dana 14.6, Plt Count 349, MPV 9.0, Immature Gran % (Auto) 0.500, Neut % (Auto) 72.6 H, Lymph % (Auto) 20.9, [place] % (Auto) 4.7, Eos % (Auto) 0.9, Baso % (Auto) 0.4, Absolute Neuts (auto) 8.2 H, Absolute Lymphs (auto) 2.37, Nucleated RBC % 0 09/27/20 20:00: Sodium 132 L, Potassium 4.0, Chloride 99, Carbon Dioxide 27.0, Anion Gap 6, BUN 12, Creatinine 1.06, Estim Creat Clear Calc 73.99, Est GFR (MDRD) Af Amer 93, Est GFR (MDRD) Non-Af 77, BUN/Creatinine Ratio 11.3, Glucose 196 H, Calcium 8.9, Total Bilirubin 0.20, AST 12 L, ALT 20, Alkaline Phosphatase 85, Total Protein 8.1, Albumin 2.1 L, Globulin 6.0 H, Albumin/Globulin Ratio 0.4 L 09/27/20 20:00: Lactic Acid 1.1 09/28/20 05:08: Sodium 137, Potassium 4.0, Chloride 105, Carbon Dioxide 26.0, Anion Gap 6, BUN 8, Creatinine 0.84, Estim Creat Clear Calc 91.54, Est GFR ( MDRD) Af Amer 120, Est GFR (MDRD) Non-Af 99, BUN/Creatinine Ratio 9.5 L, Glucose 142 H, Calcium 8.7 09/28/20 05:08: WBC 9.8, RBC 3.52 L, Hgb 9.2 L, Hct 30.0 L, MCV 85.2, MCH 26.1 L , MCHC 30.7 L, RDW Std Deviation 45.7 H, RDW Coeff of Dana 14.6, Plt Count 333, MPV 9.2, Immature Gran % (Auto) 0.500, Neut % (Auto) 68.6, Lymph % (Auto) 23.2, [place] % (Auto) 5.8, Eos % (Auto) 1.6, Baso % (Auto) 0.3, Absolute Neuts (auto) 6.7, Absolute Lymphs (auto) 2.28, Nucleated RBC % 0 09/28/20 06:09: POC Glucose 141 H Radiography Diagnostic Testing: Radiology Impression Lower Extremity CT 09/27/20 19:41 Physical Exam Narrative Physical exam: General: Alert, Oriented x3, Cooperative, No apparent distress, in mild distress from pain HEENT: Atraumatic Oral: Moist Mucosa Neck: Supple Lungs: Clear to auscultation Cardiovascular: HS I+II, regular, no murmurs Abdomen: Bowel Sounds Present, Soft, Non Tender, ulcerations in the left groin and perineal area Extremities: No edema Assessment & Plan Assessment/Plan (1) Abscess of left thigh: (2) Failure of outpatient treatment: PLAN: 1. Acute multiple subcutaneous abscesses in the perineal, upper gluteal and posterior left thigh, infected ulcers/hidradenitis In a patient with severe hidradenitis. Going for I&D and excision Pain regimen increased-morphine increased to 4 mg every 3h We will add IV Levaquin to vancomycin and Flagyl Consult ID 2. Hypertension, blood pressure is uncontrolled, Will increase lisinopril to 20 mg p.o. daily, continue with hydralazine as needed 3. Diabetes mellitus type 2, blood glucose is controlled Last HbA1c in July 2020 was 7.8 Continue with insulin sliding scale 4. Nicotine dependence, continue replacement Charges/Coding Visit Charges Inpatient E&M: 79664 Subs Hosp L3
[2020-09-28] MEDS: hydrALAZINE 20 MG/ML Vial 5 MG IV ×2 (11:42→17:40)
[2020-09-28 11:51] LABS: Bedside Glucose 133 mg/dL (70-110)
--- NOTE | 2020-09-28 14:50 | CASEMGMT ---
RN CM Assessment Introduced role of RN CM to patient.? Patient is alert, oriented and able?to participate in RN CM Assessment. ?Care providers, pharmacy, and demographics verified. Admit Dx: Cellulitis, Nonhealing wound. Re-Admit: Barriers/Issues: H/o Hydradenitis Suppurativa. 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 Does not have a Glucometer and does not check blood sugars. has a Glucometer. Current at [facility] Wound clinic- sent by [place] and has an appointment on 10/10/20. Wound Cx 09/05/20 susceptible to Vancomycin. PCP: [facility]- Adina Bhat Specialists: Foot and ankle- Sarah Luis- last surgery 05/19/20. [facility]erred [facility]acy: [facility] Insurance: [employer] Rx Benefit:?Yes LNOK: Shima Santos LW/HPOA: Believes he has completed both and HPOA is . Aware not on file with [facility] and if brought in a copy can be scanned on file. Aware if does not have completed, can return as an outpatient and complete with dept. Living Arrangements:?Lives with in a [facility], 5 steps to enter. ADL?s: Independent with ambulation and ADLs Transportation: Both patient and drive. will transport upon DC DME: Cane, stationary walker, crutches, ortho boot HHC: Past [facility]: None Goal: Home and continue to f/u with wound clinic, vs possible HH wound care and IV Abx. Discussed with patient has Dr Smith to see patient and decide if needs to go to OR. If IV Abx/Wound care needed- discussed in network list of HH and infusion companies. Patient states [facility] as first preference. Second HH Preference [facility]. DC PLAN: Home with possible HH SN wound care, IV Abx and resume [facility] wound clinic. Chandrakant Sunshine RNCM
--- NOTE | 2020-09-28 15:03 | PCM.PN.SRG ---
Subjective Subjective Patient resting in bed. Currently NPO Objective Data Objective Data Vital Signs: Vital Signs Temp Pulse Resp BP Pulse Ox 99.0 F 68 16 164/73 H 100 09/28/20 12:52 09/28/20 12:52 09/28/20 12:52 09/28/20 12:52 09/28/20 12:52 Oxygen Delivery Method Room Air Weight: 147 lb 0.773 oz Body Mass Index (BMI) 22.4 Intake & Output: Intake and Output for Last 24 Hours 09/26/20 09/27/20 09/28/20 23:59 23:59 23:59 Intake Total 1200 / 1200 1435.00 / 1435.00 Balance 1200 / 1200 1435.00 / 1435.00 Medical Nutrition Assessment Dietitian: Malnutrition Criteria Met Start: 09/28/20 11:20 Freq: Status: Active Protocol: Document 09/28/20 11:30 AG (Rec: 09/28/20 11:30 AG Desktop) Nutrition Malnutrition Evidence of Malnutrition Exists Yes Malnutrition (severe): Chronic Evidenced By Suboptimal Energy Intake ( Severe),Weight Loss (Severe) Clinical Problem Chronic Disease or Condition Related Malnutrition Etiology severe malnutrition r/t inadequate energy intake w/ increased nutrient need d/t nonhealing wound Signs/Symptoms as evidenced by estimataed PO intake meeting <75% of estimated nutritional needs x 4 months, unintentional wt loss of 17#/10% x 4 months Status Active Problem Recommendation Dietitian Recommendations/Changes consistent carbohydrate diet, Curtis BID, and Glucerna 120mL 4x/day when PO diet is medically indicated. Lab / Micro Data Attestation: I reviewed the patient's lab results. Result Diagrams: 09/28/20 05:08 09/28/20 05:08 Labs: Laboratory Results - last 24 hr 09/27/20 20:00: WBC 11.4 H, RBC 3.85 L, Hgb 10.1 L, Hct 32.6 L, MCV 84.7, MCH 26.2 L, MCHC 31.0 L, RDW Std Deviation 44.9 H, RDW Coeff of Dana 14.6, Plt Count 349, MPV 9.0, Immature Gran % (Auto) 0.500, Neut % (Auto) 72.6 H, Lymph % (Auto) 20.9, [place] % (Auto) 4.7, Eos % (Auto) 0.9, Baso % (Auto) 0.4, Absolute Neuts (auto) 8.2 H, Absolute Lymphs (auto) 2.37, Nucleated RBC % 0 09/27/20 20:00: Sodium 132 L, Potassium 4.0, Chloride 99, Carbon Dioxide 27.0, Anion Gap 6, BUN 12, Creatinine 1.06, Estim Creat Clear Calc 73.99, Est GFR (MDRD) Af Amer 93, Est GFR (MDRD) Non-Af 77, BUN/Creatinine Ratio 11.3, Glucose 196 H, Calcium 8.9, Total Bilirubin 0.20, AST 12 L, ALT 20, Alkaline Phosphatase 85, Total Protein 8.1, Albumin 2.1 L, Globulin 6.0 H, Albumin/Globulin Ratio 0.4 L 09/27/20 20:00: Lactic Acid 1.1 09/28/20 05:08: Sodium 137, Potassium 4.0, Chloride 105, Carbon Dioxide 26.0, Anion Gap 6, BUN 8, Creatinine 0.84, Estim Creat Clear Calc 91.54, Est GFR (MDRD) Af Amer 120, Est GFR (MDRD) Non-Af 99, BUN/Creatinine Ratio 9.5 L, Glucose 142 H, Calcium 8.7 09/28/20 05:08: WBC 9.8, RBC 3.52 L, Hgb 9.2 L, Hct 30.0 L, MCV 85.2, MCH 26.1 L, MCHC 30.7 L, RDW Std Deviation 45.7 H, RDW Coeff of Dana 14.6, Plt Count 333, MPV 9.2, Immature Gran % (Auto) 0.500, Neut % (Auto) 68.6, Lymph % (Auto) 23.2, [place] % (Auto) 5.8, Eos % (Auto) 1.6, Baso % (Auto) 0.3, Absolute Neuts (auto) 6.7, Absolute Lymphs (auto) 2.28, Nucleated RBC % 0 09/28/20 06:09: POC Glucose 141 H 09/28/20 11:12: POC Glucose 133 H Radiography Diagnostic Testing: Radiology Impression Lower Extremity CT 09/27/20 19:41 IMPRESSION:Subcutaneous abscesses are favored particularly given the extension from the perineum/upper gluteal region into these upper posterior left thigh collections. Alternatively the loculated fluid collections could be related to chronic pressure sores, with granulation/inflammatory cells and cellulitis. 1. The skin in the perineum and inner buttock regions is moderately thickened and indurated. The perianal soft tissues are also moderately thickened. Moderate to significant thickening of the skin and induration of the underlying subcutaneous fat is seen in the medial and posterior aspects of the left upper thigh with 2 loculated ovoid fluid collections located in the subcutaneous fat and lateral aspect of the left buttock measuring 6.66 x 1.26 cm and the second collection is present in the posterior and slightly medial aspect of the left thigh measuring 11.0 x 5.39 x 1.38 cm. 2. The outer investing fascia of the semimembranosus and semitendinosus muscles is mildly thickened and forms a posterior wall of the fluid collection in the upper to mid thigh region, however the underlying muscles and intervening fat plane are preserved. Electronically Signed: Kailn Raman MD at 22:16 EDT , Service support , CT/Extremity Lower WITH Contrast Physical Exam Const oriented x3 Eyes PERRL Resp normal respiratory effort Cardio regular rate GI soft to palpation and non-tender Extremity full ROM Skin Wound Narrative: Left groin ulcer is stable. Pain, swelling, induration of left perineum, gluteus to proximal posterior thigh with tunnelled areas of white, thick drainage. Neuro oriented x3 Psych mental status grossly normal Assessment & Plan Assessment/Plan (1) Ulcer of left groin with fat layer exposed: (2) Hidradenitis suppurativa of anus: (3) Malnutrition: QUALIFIERS: Malnutrition type: protein-calorie malnutrition Protein-calorie malnutrition severity: moderate Qualified Code(s): E44.0 - Moderate protein-calorie malnutrition (4) Pain in the groin: (5) Diabetes type 2, uncontrolled: (6) Tobacco dependence syndrome: PLAN: Left groin ulcer is stable. Pain, swelling, induration of left perineum, gluteus to proximal posterior thigh with tunnelled areas of white, thick drainage. Currently on Levaquin and Vancomycin. Currently NPO until I speak with Dr. Smith. Once he is able to eat, encouraged protein intake for wound healing with protein supplementation. Currently has a Nicotine patch on. Encouraged to stop smoking.
[2020-09-28] MEDS: levoFLOXacin IV 500 MG/100 ML BAG 100 MG IV (17:25)
[2020-09-28 17:41] LABS: Bedside Glucose 295 mg/dL (70-110)
[2020-09-28] MEDS: Insulin Lispro 100 UNIT/ML INSULN.PEN SC ×2 (17:42→22:41)
[2020-09-28] MEDS: amLODIPine 5 MG Tablet PO (21:29)
[2020-09-28] MEDS: Heparin Injection (Vial) 5,000 UNIT/ML VIAL 5000 UNIT SC (22:19)
[2020-09-28 23:40] LABS: Bedside Glucose 195 mg/dL (70-110)
[2020-09-29] VITALS (12 sets, daily range): BP systolic 97–168; BP diastolic 60–81; PULSE 70–91; RESP 14–18; TEMP 36.3–36.9; O2SAT 94–100; BMI 22.4
[2020-09-29] MEDS: Acetaminophen 325 MG Tablet 650 MG PO ×2 (01:22→22:42)
[2020-09-29] MEDS: oxyCODONE 5 MG Tablet PO ×2 (01:22→22:42)
[2020-09-29] MEDS: Morphine 4 MG/ML Syringe IV ×2 (02:22→08:37)
[2020-09-29] MEDS: metroNIDAZOLE 500 MG/100 ML BAG 100 MG IV ×3 (05:25→22:27)
[2020-09-29 06:00] LABS: Absolute Neutrophil Count 5.6 X10^3/uL (2.0-7.7); Basophil# 0.05 X10^3/uL; Basophil% 0.6 % (0-1); Eosinophil# 0.14 X10^3/uL; Eosinophils% 1.6 % (0-5); Hematocrit 28.3 % (40-54); Hemoglobin 8.8 g/dL (13.0-16.5); Lymphocyte % 25.7 % (19-41); Mean Corp Hgb Conc 31.1 g/dL (32-36); Mean Corpuscular Hgb 26.6 pg (27.0-32.0); Mean Corpuscular Volume 85.5 fL (80-94); Mean Platelet Vol. 8.9 fl (6.2-12.0); Monocyte% 5.8 % (0-10); NRBC Flagged by Analyzer 0 % (0-5); Neutrophil # 5.63 X10^3/uL (2.7-7.7); Neutrophil % 65.8 % (47-70); Platelet Count 329 K/mm3 (150-450); RBC Distribution Width CV 14.6 % (11.6-14.6); RBC Distribution Width SD 45.1 fl (35.1-43.9); Red Blood Count 3.31 M/mm3 (4.6-6.2); White Blood Count 8.6 K/mm3 (4.4-11.0)
--- NOTE | 2020-09-29 06:00 | EKG12_ITS ---
Test Reason : PRE-OP Blood Pressure : / mmHG Vent. Rate : 066 BPM Atrial Rate : 066 BPM P-R Int : 146 ms QRS Dur : 092 ms QT Int : 436 ms P-R-T Axes : 063 048 104 degrees QTc Int : 457 ms Normal sinus rhythm Nonspecific T wave abnormality Abnormal ECG Confirmed by NOE RODRIGUEZ, STELLA ([id number]), photographic editor GILLIAN GONCALVES ([id number]) on 10/03/2020 1:13:32 PM Referred By: PABLITO Confirmed By:STELLA LIU MD
[2020-09-29 06:20] LABS: International Normalized Ratio 1.2; Prothrombin Time (Protime)PT. 14.6 SECONDS (11.7-14.9)
[2020-09-29 06:21] LABS: Partial Thromboplast Time 46.4 Seconds (24.1-36.2)
[2020-09-29] MEDS: Insulin Lispro 100 UNIT/ML INSULN.PEN SC ×2 (06:26→22:34)
[2020-09-29 06:27] LABS: Anion Gap 6 (5-15); BUN 7 mg/dL (7-18); BUN/Creat Ratio 7.7 RATIO (10-20); Calcium,Total 8.6 mg/dL (8.5-10.1); Chloride 108 mmol/L (98-107); Creatinine, Serum 0.91 mg/dL (0.70-1.30); EST Glomerular Filtration Rate 91 mL/min (>60); Est Glom Filt Rate - Afr Amer 110 mL/min (>60); Estimated Creatinine Clearance 84.49 ml/min; Glucose 133 mg/dL (74-106); Potassium 3.6 mmol/L (3.5-5.1); Sodium Level 139 mmol/L (136-145)
[2020-09-29 06:30] LABS: Bedside Glucose 153 mg/dL (70-110)
[2020-09-29] MEDS: 0.9% Normal Saline 1,000 ML 100 ML IV ×2 (08:08→15:47)
[2020-09-29] MEDS: 0.9% Saline Lock 10 ML Syringe IV (08:37)
[2020-09-29 08:57] LABS: Vancomycin, Trough Level 12.6 ug/mL (5.0-15.0)
--- NOTE | 2020-09-29 09:48 | PCM.RX.CS ---
Consult Pharmacy has been consulted to manage selected antiobiotic: Vancomycin Type of Consult: Follow-up Suspected Infection: Skin/Soft tissue Labs: Sodium 139 mmol/L (136-145) 09/29/20 05:40 Potassium 3.6 mmol/L (3.5-5.1) 09/29/20 05:40 Chloride 108 mmol/L (98-107) H 09/29/20 05:40 Carbon Dioxide 25.0 mmol/L (21.0-32.0) 09/29/20 05:40 Anion Gap 6 (5-15) 09/29/20 05:40 BUN 7 mg/dL (7-18) 09/29/20 05:40 Creatinine 0.91 mg/dL (0.70-1.30) 09/29/20 05:40 Est GFR (MDRD) Af Amer 110 mL/min (>60) 09/29/20 05:40 Est GFR (MDRD) Non-Af 91 mL/min (>60) 09/29/20 05:40 BUN/Creatinine Ratio 7.7 RATIO (10-20) L 09/29/20 05:40 Glucose 133 mg/dL (74-106) H 09/29/20 05:40 Vancomycin Trough 12.6 ug/mL (5.0-15.0) 09/29/20 08:18 Microbiology: Microbiology 09/29/20 08:15 Mucosa - Nose SARS-CoV-2 Antigen (Rapid) - Final Goal Trough: 10-15 mcg/mL Pharmacy Plan for Drug Dosing: VANCOMYCIN LEVEL RECEIVED Current Vancomycin Dose: 750mg q12h () Number of Doses Received: x1 dose of 1000mg, x2 doses of 750mg Vancomycin Level: 12.6 Hours Since Last Dose: 11 Renal Function: SrCr is 0.91 Renal Function Trend: stable Lab/Micro: Vancomycin Plan/Comments: trough resulted at 12.6 which is within the ordered goal range of 10-15. recommend continuing current dose of 750mg q12h Pending Level: 09/30/20 at 2030 Pharmacy Service will continue to monitor and adjust dosing as required. Follow-Up Labs: Trough Vancomycin - 09/30/20 at 2030
--- NOTE | 2020-09-29 10:33 | NURSING ---
wound photo: left groin
--- NOTE | 2020-09-29 10:37 | CON.PCM.ID_ITS ---
Assessment & Plan Assessment/Plan (1) Abscess of left thigh: PLAN: Surgery planned for today. On vanc/levaquin/flagyl, will change levaquin to ceftriaxone. Had no issue with omnicef as an outpt. Encouraged him to get covid vaccine. Will follow, thank you HPI Consult Data Date of Consult: 09/29/20 HPI Narrative HPI Narrative: SVEN DUONG, is a 55 M with DM, hidradenitis, CAD, COPD, presented with 2-3 weeks of worsening L ankle pain and L upper thigh/groin woun d. No inciting event, does have a puppy at home that scratches a lot. No fever or chills. Was started on doxy/omnicef/flagyl as outpt. 50 years ago has reported h/o unknown PCN reaction. No issues with omnicef. Follows at wound center. Admitted here on vanc/levaquin/flagyl, CT done, plan is for OR today for fluid collections seen. Full ROS performed and neg except as noted above. [facility] Medical History Acute blood loss anemia Anemia Anemia of chronic disease Back pain due to injury COPD (chronic obstructive pulmonary disease) Coronary artery disease Current use of insulin Diabetes Diabetes mellitus type 2, uncontrolled, with complications Diabetes type 2, uncontrolled Heart disease Hidradenitis suppurativa of anus History of stress test Hydradenitis Hydradenitis Hyperlipidemia associated with type 2 diabetes mellitus Hypertension Malnutrition Myocardial infarct Pain in the groin Skin ulcer of scrotum Sleep apnea Smoker Ulcer of left groin with fat layer exposed Ulcer of perineum with fat layer exposed Home Medications tramadol 50 mg tablet 50 mg PO Q6H PRN 30 Days #120 tab 09/02/20 [Rx Last Taken 09/26/20 14:00] cefdinir 300 mg capsule 300 mg PO Q12H 21 Days #42 cap 09/09/20 [Rx Last Taken 09/27/20 09:00] Allergy/AdvReac Type Severity Reaction Status Date / Time Penicillins Allergy Unknown Verified 09/27/20 19:04 Sulfa (Sulfonamide Allergy Unknown Verified 09/27/20 19:04 Antibiotics) bupropion [From Wellbutrin] AdvReac Severe change in Verified 09/27/20 19:04 personality ,meanness and smoked more Family History Aunt Lung disease lung cancer Father Heart disease Hypertension Family history of high cholesterol Diabetes Mother Diabetes Daughter Epilepsy Surgical History History of coronary artery stent placement History of removal of cyst History of tonsillectomy and adenoidectomy Hx of CABG Hx of hernia repair Stented coronary artery Social History Smoking Status: Current every day smoker tobacco type: cigarettes alcohol intake: never substance use type: does not use additional social history: DOES NOT TAKE ASPIRIN DOES NOT TAKE IBUPROFEN Physical Exam Const alert, oriented x3 and no apparent distress General Appearance: cooperative HEENT normocephalic and head/scalp atraumatic Eyes PERRL and EOMs intact bilaterally Neck supple and No nodes Resp normal air movement and clear to auscultation bilaterally Cardio regular rate and regular rhythm GI normal to inspection, nondistended, normoactive bowel sounds Extremity no clubbing, cyanosis or edema Skin Skin Narrative: L posterior thigh/inguinal induration and wound Neuro CN's II-XII intact bilaterally Medical Records Data Medical Nutrition Assessment Dietitian: Malnutrition Criteria Met Start: 09/28/20 11:20 Freq: Status: Active Protocol: Document 09/28/20 11:30 AG (Rec: 09/28/20 11:30 AG Desktop) Nutrition Malnutrition Evidence of Malnutrition Exists Yes Malnutrition (severe): Chronic Evidenced By Suboptimal Energy Intake ( Severe),Weight Loss (Severe) Clinical Problem Chronic Disease or Condition Related Malnutrition Etiology severe malnutrition r/t inadequate energy intake w/ increased nutrient need d/t nonhealing wound Signs/Symptoms as evidenced by estimataed PO intake meeting <75% of estimated nutritional needs x 4 months, unintentional wt loss of 17#/10% x 4 months Status Active Problem Recommendation Dietitian Recommendations/Changes consistent carbohydrate diet, Curtis BID, and Glucerna 120mL 4x/day when PO diet is medically indicated. Lab / Micro Data Result Diagrams: 09/29/20 05:40 09/29/20 05:40 Labs: Laboratory Results - last 24 hr 09/28/20 11:12: POC Glucose 133 H 09/28/20 17:28: POC Glucose 295 H 09/28/20 22:40: POC Glucose 195 H 09/29/20 05:40: WBC 8.6, RBC 3.31 L, Hgb 8.8 L, Hct 28.3 L, MCV 85.5, MCH 26.6 L , MCHC 31.1 L, RDW Std Deviation 45.1 H, RDW Coeff of Dana 14.6, Plt Count 329, MPV 8.9, Immature Gran % (Auto) 0.500, Neut % (Auto) 65.8, Lymph % (Auto) 25.7, [place] % (Auto) 5.8, Eos % (Auto) 1.6, Baso % (Auto) 0.6, Absolute Neuts (auto) 5.6, Absolute Lymphs (auto) 2.20, Nucleated RBC % 0 09/29/20 05:40: Sodium 139, Potassium 3.6, Chloride 108 H, Carbon Dioxide 25.0, Anion Gap 6, BUN 7, Creatinine 0.91, Estim Creat Clear Calc 84.49, Est GFR (MDRD) Af Amer 110, Est GFR (MDRD) Non-Af 91, BUN/Creatinine Ratio 7.7 L, Glucose 133 H, Calcium 8.6 09/29/20 05:40: PT 14.6, INR 1.2, APTT 46.4 H 09/29/20 06:24: POC Glucose 153 H 09/29/20 08:18: Vancomycin Trough 12.6 Micro: Microbiology 09/29/20 08:15 Mucosa - Nose SARS-CoV-2 Antigen (Rapid) - Final
--- NOTE | 2020-09-29 11:30 | NURSING ---
Patient off unit to at this time. 1100 atb sent down in tube system. SOLANGE Esteves aware.
--- NOTE | 2020-09-29 12:00 | PCM.PN.HOSP ---
Subjective Subjective Patient was seen and examined. Denied any new complaint. Going for surgery today. Objective Data Objective Data Vital Signs: Vital Signs Temp Pulse Resp BP Pulse Ox 97.8 F 70 18 150/63 H 99 09/29/20 08:05 09/29/20 08:05 09/29/20 08:05 09/29/20 08:05 09/29/20 08:05 Oxygen Delivery Method Room Air Weight: 66.7 kg Body Mass Index (BMI) 22.4 Intake & Output: Intake and Output for Last 24 Hours 09/27/20 09/28/20 09/29/20 23:59 23:59 23:59 Intake Total 1200 / 1200 2541.67 / 2741.67 1091.66 / 1091.66 Balance 1200 / 1200 2541.67 / 2741.67 1091.66 / 1091.66 Medical Nutrition Assessment Dietitian: Malnutrition Criteria Met Start: 09/28/20 11:20 Freq: Status: Active Protocol: Document 09/28/20 11:30 AG (Rec: 09/28/20 11:30 AG Desktop) Nutrition Malnutrition Evidence of Malnutrition Exists Yes Malnutrition (severe): Chronic Evidenced By Suboptimal Energy Intake ( Severe),Weight Loss (Severe) Clinical Problem Chronic Disease or Condition Related Malnutrition Etiology severe malnutrition r/t inadequate energy intake w/ increased nutrient need d/t nonhealing wound Signs/Symptoms as evidenced by estimataed PO intake meeting <75% of estimated nutritional needs x 4 months, unintentional wt loss of 17#/10% x 4 months Status Active Problem Recommendation Dietitian Recommendations/Changes consistent carbohydrate diet, Curtis BID, and Glucerna 120mL 4x/day when PO diet is medically indicated. Lab / Micro Data Result Diagrams: 09/29/20 05:40 09/29/20 05:40 Labs: Laboratory Results - last 24 hr 09/28/20 17:28: POC Glucose 295 H 09/28/20 22:40: POC Glucose 195 H 09/29/20 05:40: WBC 8.6, RBC 3.31 L, Hgb 8.8 L, Hct 28.3 L, MCV 85.5, MCH 26.6 L, MCHC 31.1 L, RDW Std Deviation 45.1 H, RDW Coeff of Dana 14.6, Plt Count 329, MPV 8.9, Immature Gran % (Auto) 0.500, Neut % (Auto) 65.8, Lymph % (Auto) 25.7, [place] % (Auto) 5.8, Eos % (Auto) 1.6, Baso % (Auto) 0.6, Absolute Neuts (auto) 5.6, Absolute Lymphs (auto) 2.20, Nucleated RBC % 0 09/29/20 05:40: Sodium 139, Potassium 3.6, Chloride 108 H, Carbon Dioxide 25.0, Anion Gap 6, BUN 7, Creatinine 0.91, Estim Creat Clear Calc 84.49, Est GFR (MDRD) Af Amer 110, Est GFR (MDRD) Non-Af 91, BUN/Creatinine Ratio 7.7 L, Glucose 133 H, Calcium 8.6 09/29/20 05:40: PT 14.6, INR 1.2, APTT 46.4 H 09/29/20 06:24: POC Glucose 153 H 09/29/20 08:18: Vancomycin Trough 12.6 Micro: Microbiology 09/29/20 08:15 Mucosa - Nose SARS-CoV-2 Antigen (Rapid) - Final Physical Exam Narrative Physical exam: General: Alert, Oriented x3, Cooperative, No apparent distress, in mild distress from pain HEENT: Atraumatic Oral: Moist Mucosa Neck: Supple Lungs: Clear to auscultation Cardiovascular: HS I+II, regular, no murmurs Abdomen: Bowel Sounds Present, Soft, Non Tender, ulcerations in the left groin and perineal area Extremities: No edema Assessment & Plan Assessment/Plan (1) Abscess of left thigh: (2) Failure of outpatient treatment: PLAN: 1. Acute multiple subcutaneous abscesses in the perineal, upper gluteal and posterior left thigh, infected ulcers/hidradenitis In a patient with severe hidradenitis. Going for I&D and excision Pain regimen increased-morphine increased to 4 mg every 3h Continue on IV vancomycin, ceftriaxone and Flagyl ID consulted 2. Hypertension, blood pressure is fairly uncontrolled, Started on amlodipine 5 mg yesterday; will increase it to 10 mg today Continue lisinopril 3. Diabetes mellitus type 2, blood glucose is controlled Last HbA1c in July 2020 was 7.8 Continue with insulin sliding scale 4. Nicotine dependence, continue replacement Charges/Coding Visit Charges Inpatient E&M: 79872 Subs Hosp L2
--- NOTE | 2020-09-29 12:07 | RAD_ITS ---
STUDY: X-RAY CHEST REASON FOR EXAM: Male, 55 years old. SOB TECHNIQUE: Single AP portable view of the chest. COMPARISON: Comparison is made with prior examination dated 06/20/2020. FINDINGS: There is hyperinflation of the lungs consistent with chronic obstructive lung disease (COPD). No acute abnormality is seen. There is no demonstrated pleural abnormality. Normal size heart. Normal mediastinum and anthony. Normal visualized pulmonary arteries. Normal visualized aortic arch and descending thoracic aorta. There are degenerative changes of the visualized thoracic spine. Normal visualized ribs, clavicles, and shoulders. There is no demonstrated abnormality of the visualized soft tissue structures of the upper abdomen. RAD/Chest 1 View (Portable) IMPRESSION: Hyperinflation. No acute abnormality is seen. Electronically Signed: Jose Alberto Bartholomew MD at 12:56 EDT , Service support ,
[2020-09-29] MEDS: Lactated Ringers 1,000 ML 100 ML IV ×2 (13:00→14:00)
--- NOTE | 2020-09-29 13:55 | HID_PTH ---
PATIENT: SVEN DUONG LOC: MS3 U#:[id number] AGE/SX: 55/M ROOM: [place] RE09/27/[address]: Dr. Wai Cavazos MD : 1965 BED: 1 DIS: 10/03/2020 SPEC #: [id number] RECD: 09/29/20 15:10 STATUS: NIELS RE #: [id number] DARRELL: 09/29/20 13:[address]: Cortez Smith DEPT: SURGICAL PATHOLOGY RECD BY: Belinda Rondon ENTERED: 09/30/20 07:44 SP TYPE: Hidradenit OTHR DR: MD Dr. Herminio Miller MD Dr. James A Slaby, MD Dr. Robert Leininger, MD Dora Richardson, PARALEGALS-C Tissues: Perianal tissue Procedures: Surgery Specimen Level III Comments: @ Ordering doctor for SUIV edited from to @ by VICENTA at 09/30/20 0856 @ Submitting doctor edited from to @ by RGOOD at 09/30/20 0856 HEADER OPERATION: Excision hidradenitis, I & D left buttock, posterior thigh PRE-OP DIAGNOSIS: Ulcer of left groin with fat layer exposed; hidradenitis suppurativa of anus TISSUE SUBMITTED: Hidradenitis abscess, left perianal abscess and left posterior thigh abscess MICROSCOPIC DIAGNOSIS Left perianal and left posterior thigh abscess: Pieces of skin with underlying tissue with acute and chronic inflammation, granulation tissue reaction and abscess formation. PAPA:chrissie 10/03/2020 MICROSCOPIC DESCRIPTION Slides are reviewed. GROSS DESCRIPTION Received in fixative is one container labeled with the patient's name and designated hidradenitis abscess, left perianal abscess and left posterior thigh abscess. The specimen consists of multiple pieces of skin with underlying tissue that in aggregate measure 16 x 15 x 4 cm. Aged Or Disabled Care Worker sections are submitted in four cassettes. / Royce 09/30/20 TC:2 CPT: 19644
--- NOTE | 2020-09-29 14:23 | OP.PCM_ITS ---
Problems Associated Problem List Diagnoses (1) Abscess of buttock, left: (2) Abscess of left thigh: (3) Hidradenitis suppurativa of anus: (4) Hydradenitis: (5) Infliximab (Remicade) long-term use: (6) Anemia of chronic disease: (7) Diabetes type 2, uncontrolled: (8) Tobacco dependence syndrome: (9) Open wound of left buttock with complication: (10) Complicated open wound of left thigh: Report of Operation Date of Procedure: 09/29/20 Pre-Operative Diagnosis: 1. Left perianal hidradenitis abscess. 2. Left posterior thigh hidradenitis abscess. 3. Extensive hidradenitis bilateral inguinal and perineal areas. 4. Extensive hidradenitis bilateral perianal areas. 5. Smoker. 6. On terminal make up operator use of Remicade, on hold presently. 7. Diabetes mellitus. 8. Anemia of chronic disease. Post-Operative Diagnosis: 1. Left perianal hidradenitis abscess. 2. Left posterior thigh hidradenitis abscess. 3. Open surgical hidradenitis abscess wound left perianal area. 4. Open surgical hidradenitis abscess wound left posterior thigh. 5. Extensive hidradenitis bilateral inguinal and perineal areas. 6. Extensive hidradenitis bilateral perianal areas. 7. Smoker. 8. On halfway use of Remicade, on hold presently. 9. Diabetes mellitus. 10. Anemia of chronic disease. Surgery/Procedure Performed:: 1. Surgical preparation left perianal area with excision hidradenitis abscess (144 cm2). 2. Surgical preparation left posterior thigh with incision and drainage and excisional debridement hidradenitis abscess (96 cm2). Description of Surgical Findings:: Patient was admitted with increasing pain and redness and swelling involving his left buttock, perineum, and posterior thigh. He has complex extensive hidradenitis involving his bilateral inguinal and perineal areas with extension to base of scrotum and bilateral perianal areas. He had surgery on 03/22/20 where he underwent surgical preparation left inguinal area with excision hidradenitis (315 cm2 total wound) and surgical preparation perineal area with excision hidradenitis (315 cm2 total wound) and surgical preparation base left scrotum with incision and drainage and excision hidradenitis (315 cm2 total wound). Postoperatively he has been going to the [facility] with Dakin's dressing changes and antibiotics. He has had multiple cultures that have shown Staphylococcus (some resistant), Streptococcus, Anaerobes, E. coli, Klebsiella, Serratia, and Enterococcus faecalis. He was admitted to the hospital and started on Vancomycin. Levaquin and Flagyl have been added. Levaquin has been changed to Ceftriaxone. CT scan shows fluid collections in his lateral buttock and left posteromedial thigh. I was asked to evaluate this patient for surgical options for treatment. Patient was informed of the risks and complications of the procedure including alternatives to surgery. These were discussed with the patient personally. Patient voices understanding and wishes to proceed. Encouraged patient to stop smoking as it may have deleterious effects on wound healing. Size of defect left perianal area - 16 x 9 x 3 cm. Size of defect left posterior thigh area - 16 x 6 x 3 cm. Surgeon: Cortez Smith sanitation worker hosing machinery: None Type of Anesthesia: General Specimen's removed: Left perianal and left posterior thigh hidradenitis abscess to Pathology and Microbiology. Drains: None. Estimated Blood Loss (mL): 150. Description of Procedure: Patient was taken to OR in supine position and was placed under general anesthesia. He was then placed in the prone position. The buttocks and left posterior thigh areas were prepped and draped in the usual fashion. SCD's were placed for DVT prophylaxis. Perioperative antibiotics were given intravenously. Incision was made on the left buttock around areas of purulent drainage. He has extensive redness and induration on the buttocks. Incision was very close to the anal opening. Incision was carried down to the gluteus muscle as there was extensive fat necrosis and pus noted. There were some purulent tracks of infection laterally and inferiorly toward the gluteal crease. The fat necrosis and exudate and areas of hidradenitis induration were excised and debrided. Hemostasis was obtained with electrocautery. The size of the left perianal hidradenitis abscess wound was 16 x 9 x 3 cm. I now addressed the left posterior thigh area as there was redness and induration and fluctuance. It extended medially to the healing left inguinal hidradenitis ulcer. There was a cavity involving the edge of this ulcer as the hidradenitis abscess extended to the ulcer. Laterally on the left posterior thigh there was copious pus seen extending down to the hamstring muscles. Some thickened capsular scar tissue remained after draining the pus. Extensive fat necrosis and exudate were seen. The capsular scar tissue along with the extensive fat necrosis and exudate were excised and debrided. Hemostasis was obtained with electrocautery. The left posterior thigh wound extended medially to the left inguinal hidradenitis ulcer as that infected cavity adjacent to the left inguinal hidradenitis ulcer was opened up. Both wounds (left perianal and left posterior thigh) were copiously irrigated with saline. Both abscess wounds were very close to each other so I excised the small skin bridge to make this one larger abscess wound to make the wound care easier. The size of the left posterior thigh hidradenitis abscess wound was 16 x 6 x 3 cm. Tissue that was removed from both abscesses were sent as one specimen to Pathology for analysis to rule out carcinoma and to Microbiology for culture. A positive culture will necessitate antibiotic therapy. The abscess wound was then dressed with Mepitel nonadherent dressing followed by Kerlix gauze and Betadine followed by dry Kerlix gauze and ABD pads compression dressing. Patient tolerated the procedure well and was sent to PACU in satisfactory condition. Patient will be sent upstairs for continued postop care. The left perianal wound is very close to the anal opening (about 1.5 cm). Will discuss with the patient and family postoperatively that he would benefit from a diverting colostomy. Will start Dakin's dressing changes tomorrow. Grafts/Implants Used: None. Complications None. Admit VTE Documentation VTE Present on Admission: No VTE Mechan Device Prophylaxis: SCD's VTE Pharm Prophylaxis ordered?: Yes Addendum Addendum: Surgery Charges CPT - 59543 ICD-10 - L02.31, S31.829A, L73.2, L02.416, S71.102A, E11.65, D63.8, Z79.899, F17.200 79339 S71.102A, L02.416, L73.2, L02.31, S31.829A, E11.65, D63.8, Z79.899, F17.200 16761 L02.416, S71.102A, L73.2, L02.31, S31.829A, E11.65, D63.8, Z79.899, F17.200
--- NOTE | 2020-09-29 14:44 | CASEMGMT ---
Pt screened with [facility] Palliative Care Screening Tool due to strata 3, pt did not meet criteria.
[2020-09-29 14:46] LABS: Bedside Glucose 126 mg/dL (70-110)
--- NOTE | 2020-09-29 16:03 | SUR.PHASEI ---
1550; awaiting transportation to [facility]
[2020-09-29 17:30] LABS: Bedside Glucose 159 mg/dL (70-110)
[2020-09-29] MEDS: Lisinopril 20 MG Tablet PO (18:42)
[2020-09-29] MEDS: HYDROmorphone 1 MG/ML Syringe IV (20:46)
[2020-09-29] MEDS: Heparin Injection (Vial) 5,000 UNIT/ML VIAL 5000 UNIT SC (22:28)
[2020-09-29 22:41] LABS: Bedside Glucose 157 mg/dL (70-110)
[2020-09-30 00:25] VITALS: BP 128/68; PULSE 72; RESP 16; TEMP 36.9; O2SAT 98
[2020-09-30] MEDS: HYDROmorphone 1 MG/ML Syringe IV (00:30)
[2020-09-30] MEDS: oxyCODONE 5 MG Tablet PO ×2 (02:49→08:49)
[2020-09-30 04:48] VITALS: BP 150/72; PULSE 64; RESP 16; TEMP 36.8; O2SAT 99
[2020-09-30] MEDS: metroNIDAZOLE 500 MG/100 ML BAG 100 MG IV ×3 (05:22→22:18)
[2020-09-30] MEDS: Insulin Lispro 100 UNIT/ML INSULN.PEN SC ×4 (06:35→22:23)
[2020-09-30 06:56] LABS: Bedside Glucose 228 mg/dL (70-110)
[2020-09-30 06:58] LABS: Absolute Lymphocyte Count 1.66 X10^3/uL (0.83-4.51); Absolute Neutrophil Count 5.8 X10^3/uL (2.0-7.7); Basophil# 0.04 X10^3/uL; Basophil% 0.5 % (0-1); Eosinophil# 0.12 X10^3/uL; Eosinophils% 1.5 % (0-5); Hematocrit 26.3 % (40-54); Lymphocyte # 1.66 X10^3/ul (0.83-4.51); Lymphocyte % 20.4 % (19-41); Mean Corp Hgb Conc 30.4 g/dL (32-36); Mean Corpuscular Hgb 26.6 pg (27.0-32.0); Mean Corpuscular Volume 87.4 fL (80-94); Mean Platelet Vol. 9.3 fl (6.2-12.0); Monocyte# 0.46 X10^3/uL; Monocyte% 5.7 % (0-10); NRBC Flagged by Analyzer 0 % (0-5); Neutrophil % 71.4 % (47-70); Platelet Count 320 K/mm3 (150-450); RBC Distribution Width CV 14.6 % (11.6-14.6); Red Blood Count 3.01 M/mm3 (4.6-6.2); White Blood Count 8.1 K/mm3 (4.4-11.0)
[2020-09-30 07:20] VITALS: O2SAT 98
[2020-09-30 07:27] LABS: ALB/GLOB Ratio 0.4 RATIO (0.9-2.4); AST(SGOT) 9 U/L (15-37); Alanine Aminotransfer ALT/SGPT 11 U/L (16-61); Albumin, Serum 1.8 g/dL (3.2-5.0); Alkaline Phosphatase 61 U/L (45-117); Anion Gap 6 (5-15); BUN 5 mg/dL (7-18); BUN/Creat Ratio 4.9 RATIO (10-20); Calcium,Total 8.1 mg/dL (8.5-10.1); Chloride 106 mmol/L (98-107); Creatinine, Serum 1.03 mg/dL (0.70-1.30); EST Glomerular Filtration Rate 79 mL/min (>60); Est Glom Filt Rate - Afr Amer 96 mL/min (>60); Estimated Creatinine Clearance 74.65 ml/min; Globulin 4.5 g/dL (2.2-4.2); Glucose 275 mg/dL (74-106); Potassium 3.8 mmol/L (3.5-5.1); Protein, Total 6.3 g/dL (6.4-8.2); Sodium Level 137 mmol/L (136-145)
[2020-09-30] MEDS: DAKIN'S SOL HALF STRENGTH (=0.25%) 1 APPLIC TOPICAL (08:50)
[2020-09-30] MEDS: 0.9% Normal Saline 1,000 ML 100 ML IV (08:50)
[2020-09-30] MEDS: Acetaminophen 325 MG Tablet 650 MG PO ×2 (08:50→18:06)
[2020-09-30 09:13] VITALS: BP 184/77; PULSE 84; RESP 18; TEMP 36.8; O2SAT 100
[2020-09-30] MEDS: amLODIPine 10 MG Tablet PO (09:20)
[2020-09-30] MEDS: Lisinopril 20 MG Tablet PO (09:20)
[2020-09-30] MEDS: Senna/Docusate Sodium 1 Tablet 2 TABLET PO (09:20)
--- NOTE | 2020-09-30 10:07 | NURSING ---
wound photo: left buttock/posterior thigh
--- NOTE | 2020-09-30 10:08 | NURSING ---
wound photo: left groin
--- NOTE | 2020-09-30 10:25 | CASEMGMT ---
Addendum entered by Kristina Wang 09/30/20 10:47: TC to [facility] to cancel HHC as pt is going to SNF. Addendum entered by Kristina Wang 09/30/20 10:31: Received notification from wound nurse and hospitalist that pt would greatly benefit to being placed in a SNF due to extensive wounds. to discuss with patient. Original Note: RN CM in to pt room, pt states he has previously had [facility] and would prefer them back. He states his has been doing dressing changes and will continue. TC to Osmany at [facility] who states they will be able to take pt back for SN services. Faxed referral info at this time.
--- NOTE | 2020-09-30 10:56 | CASEMGMT ---
Addendum entered by Valeria Monet 09/30/20 15:24: SW received call from Leyda with TCU stating pt's insurance is stating they are contracted with one [facility], [facility] which is [place] miles away from pt's home address. Leyda states pt could still admit to TCU/ or other SNF but pt will be out of network and have out of network costs and copays. Leyda states she is not able to say how much pt's out of pocket costs would be. MICHAEL in to speak with pt. SW informed pt that pt's insurance is stating they are only contracted with [facility] in [place], [place]. SW explained in network vs out of network. SW explained pt can still admit to TCU but pt will have higher out of network costs for TCU then other SNF in the area as TCU rates are more expensive. Pt states he would like to discuss options with his . Plan: TBD Original Note: Social Work Note SW updated that pt will need to go to a SNF at discharge. Pt has MMO/TPA insurance. SW checked insurance website and was directed to MMO's website. SW reviewed SNF in network with pt's insurance. SW in to speak with pt. SW introduced self and role at [facility]. SW spoke with pt about recommendation of SNF. Patient was provided a list of SNF providers including quality and resource use data and consistent with the patient?s preferred geographic region, medical needs, and insurance network. Pt's preferred provider is [facility]. SW explained referral process and that pt will need a pre-cert. Pt states understanding. SW placed a call to Leyda with TCU and provided referral. TCU is able to accept pt and will submit for pre-cert. Plan: TCU pending pre-cert Valeria Monet EMERGENCY DEPARTMENT MANAGER, DIRECTOR ELECTRONICS
--- NOTE | 2020-09-30 11:45 | PCM.PN.HOSP ---
Subjective Subjective Patient was seen and examined. His pain is fairly uncontrolled. He denied any fever chills Objective Data Objective Data Vital Signs: Vital Signs Temp Pulse Resp BP Pulse Ox 98.2 F 84 18 184/77 H 100 09/30/20 09:13 09/30/20 09:13 09/30/20 09:13 09/30/20 09:13 09/30/20 09:13 Oxygen Flow Rate (L/min) 2 Oxygen Delivery Method Room Air Weight: 66.7 kg Body Mass Index (BMI) 22.4 Intake & Output: Intake and Output for Last 24 Hours 09/28/20 09/29/20 09/30/20 23:59 23:59 23:59 Intake Total 2541.67 / 2741.67 4933.33 / 4933.33 1886.67 / 1886.67 Output Total 925 / 925 525 / 525 Balance 2541.67 / 2741.67 4008.33 / 4008.33 1361.67 / 1361.67 Medical Nutrition Assessment Dietitian: Malnutrition Criteria Met Start: 09/28/20 11:20 Freq: Status: Active Protocol: Document 09/28/20 11:30 AG (Rec: 09/28/20 11:30 AG Desktop) Nutrition Malnutrition Evidence of Malnutrition Exists Yes Malnutrition (severe): Chronic Evidenced By Suboptimal Energy Intake ( Severe),Weight Loss (Severe) Clinical Problem Chronic Disease or Condition Related Malnutrition Etiology severe malnutrition r/t inadequate energy intake w/ increased nutrient need d/t nonhealing wound Signs/Symptoms as evidenced by estimataed PO intake meeting <75% of estimated nutritional needs x 4 months, unintentional wt loss of 17#/10% x 4 months Status Active Problem Recommendation Dietitian Recommendations/Changes consistent carbohydrate diet, Curtis BID, and Glucerna 120mL 4x/day when PO diet is medically indicated. Lab / Micro Data Result Diagrams: 09/30/20 05:40 09/30/20 05:40 Labs: Laboratory Results - last 24 hr 09/29/20 14:42: POC Glucose 126 H 09/29/20 17:22: POC Glucose 159 H 09/29/20 22:34: POC Glucose 157 H 09/30/20 05:40: WBC 8.1, RBC 3.01 L, Hgb 8.0 L, Hct 26.3 L, MCV 87.4, MCH 26.6 L, MCHC 30.4 L, RDW Std Deviation 47.0 H, RDW Coeff of Dana 14.6, Plt Count 320, MPV 9.3, Immature Gran % (Auto) 0.500, Neut % (Auto) 71.4 H, Lymph % (Auto) 20.4, [place] % (Auto) 5.7, Eos % (Auto) 1.5, Baso % (Auto) 0.5, Absolute Neuts (auto) 5.8, Absolute Lymphs (auto) 1.66, Nucleated RBC % 0 09/30/20 05:40: Sodium 137, Potassium 3.8, Chloride 106, Carbon Dioxide 25.0, Anion Gap 6, BUN 5 L, Creatinine 1.03, Estim Creat Clear Calc 74.65, Est GFR (MDRD) Af Amer 96, Est GFR (MDRD) Non-Af 79, BUN/Creatinine Ratio 4.9 L, Glucose 275 H, Calcium 8.1 L, Total Bilirubin 0.20, AST 9 L, ALT 11 L, Alkaline Phosphatase 61, Total Protein 6.3 L, Albumin 1.8 L, Globulin 4.5 H, Albumin/Globulin Ratio 0.4 L 09/30/20 06:34: POC Glucose 228 H Micro: Microbiology 09/27/20 21:15 Blood Culture (Wb) - Anticubital Right Blood Culture - Preliminary No growth in 48 hours. 09/27/20 20:00 Blood Culture (Wb) - Anticubital Left Blood Culture - Preliminary No growth in 48 hours. 09/29/20 14:00 Tissue - Sacral Gram Stain - Final 09/29/20 08:15 Mucosa - Nose SARS-CoV-2 Antigen (Rapid) - Final Radiography Diagnostic Testing: Radiology Impression Chest X-Ray 09/29/20 12:07 IMPRESSION: Hyperinflation. No acute abnormality is seen. Electronically Signed: Jose Alberto Bartholomew MD at 12:56 EDT , Service support , Physical Exam Narrative Physical exam: General: Alert, Oriented x3, Cooperative, No apparent distress, in mild distress from pain HEENT: Atraumatic Oral: Moist Mucosa Neck: Supple Lungs: Clear to auscultation Cardiovascular: HS I+II, regular, no murmurs Abdomen: Bowel Sounds Present, Soft, Non Tender, ulcerations in the left groin and perineal area Extremities: No edema Assessment & Plan Assessment/Plan (1) Abscess of left thigh: (2) Failure of outpatient treatment: PLAN: 1. POD #1 status post I&D and excision of hidradenitis abscess for acute multiple subcutaneous abscesses in the perineal, upper gluteal and posterior left thigh, infected ulcers/hidradenitis Pain is uncontrolled, will increase Dilaudid and oxycodone -2 mg IV Dilaudid every 3 hours, oxycodone 10 mg p.o. every 4 as needed Intraoperative wound cultures are pending Continue on IV vancomycin, ceftriaxone and Flagyl ID consulted 2. Hypertension, blood pressure is fairly uncontrolled, suspect it is related to pain Continue lisinopril and amlodipine 3. Diabetes mellitus type 2, blood glucose is controlled Last HbA1c in July 2020 was 7.8 Continue with insulin sliding scale for now 4. Nicotine dependence, continue replacement Charges/Coding Visit Charges Inpatient E&M: 31523 Subs Hosp L2
--- NOTE | 2020-09-30 12:13 | PN.SURG_ITS ---
Subjective Subjective Postop #1 Resting in bed. States pain is controlled. Objective Data Objective Data Vital Signs: Vital Signs Temp Pulse Resp BP Pulse Ox 98.2 F 84 18 184/77 H 100 09/30/20 09:13 09/30/20 09:13 09/30/20 09:13 09/30/20 09:13 09/30/20 09:13 Oxygen Flow Rate (L/min) 2 Oxygen Delivery Method Room Air Weight: 147 lb 0.773 oz Body Mass Index (BMI) 22.4 Intake & Output: Intake and Output for Last 24 Hours 09/28/20 09/29/20 09/30/20 23:59 23:59 23:59 Intake Total 2541.67 / 2741.67 4933.33 / 4933.33 1886.67 / 1886.67 Output Total 925 / 925 525 / 525 Balance 2541.67 / 2741.67 4008.33 / 4008.33 1361.67 / 1361.67 Medical Nutrition Assessment Dietitian: Malnutrition Criteria Met Start: 09/28/20 11:20 Freq: Status: Active Protocol: Document 09/28/20 11:30 AG (Rec: 09/28/20 11:30 AG Desktop) Nutrition Malnutrition Evidence of Malnutrition Exists Yes Malnutrition (severe): Chronic Evidenced By Suboptimal Energy Intake ( Severe),Weight Loss (Severe) Clinical Problem Chronic Disease or Condition Related Malnutrition Etiology severe malnutrition r/t inadequate energy intake w/ increased nutrient need d/t nonhealing wound Signs/Symptoms as evidenced by estimataed PO intake meeting <75% of estimated nutritional needs x 4 months, unintentional wt loss of 17#/10% x 4 months Status Active Problem Recommendation Dietitian Recommendations/Changes consistent carbohydrate diet, Curtis BID, and Glucerna 120mL 4x/day when PO diet is medically indicated. Lab / Micro Data Result Diagrams: 09/30/20 05:40 09/30/20 05:40 Labs: Laboratory Results - last 24 hr 09/29/20 14:42: POC Glucose 126 H 09/29/20 17:22: POC Glucose 159 H 09/29/20 22:34: POC Glucose 157 H 09/30/20 05:40: WBC 8.1, RBC 3.01 L, Hgb 8.0 L, Hct 26.3 L, MCV 87.4, MCH 26.6 L , MCHC 30.4 L, RDW Std Deviation 47.0 H, RDW Coeff of Dana 14.6, Plt Count 320, MPV 9.3, Immature Gran % (Auto) 0.500, Neut % (Auto) 71.4 H, Lymph % (Auto) 20.4, [place] % (Auto) 5.7, Eos % (Auto) 1.5, Baso % (Auto) 0.5, Absolute Neuts (auto) 5.8, Absolute Lymphs (auto) 1.66, Nucleated RBC % 0 09/30/20 05:40: Sodium 137, Potassium 3.8, Chloride 106, Carbon Dioxide 25.0, A nion Gap 6, BUN 5 L, Creatinine 1.03, Estim Creat Clear Calc 74.65, Est GFR ( MDRD) Af Amer 96, Est GFR (MDRD) Non-Af 79, BUN/Creatinine Ratio 4.9 L, Glucose 275 H, Calcium 8.1 L, Total Bilirubin 0.20, AST 9 L, ALT 11 L, Alkaline Phosphatase 61, Total Protein 6.3 L, Albumin 1.8 L, Globulin 4.5 H, Albumin/Globulin Ratio 0.4 L 09/30/20 06:34: POC Glucose 228 H Micro: Microbiology 09/27/20 21:15 Blood Culture (Wb) - Anticubital Right Blood Culture - Preli minary No growth in 48 hours. 09/27/20 20:00 Blood Culture (Wb) - Anticubital Left Blood Culture - Preliminary No growth in 48 hours. 09/29/20 14:00 Tissue - Sacral Gram Stain - Final 09/29/20 08:15 Mucosa - Nose SARS-CoV-2 Antigen (Rapid) - Final Radiography Diagnostic Testing: Radiology Impression Chest X-Ray 09/29/20 12:07 IMPRESSION: Hyperinflation. No acute abnormality is seen. Electronically Signed: Jose Alberto Bartholomew MD at 12:56 EDT , Service support , Physical Exam Const oriented x3 and no apparent distress Resp normal respiratory effort Cardio regular rate GI soft to palpation and non-tender Extremity full ROM Skin Wound Narrative: Left posterior thigh and left perianal surgical wounds are stable and not actively bleeding. Left groin ulcer is pink and stable. Neuro oriented x3 Psych mental status grossly normal Assessment & Plan Assessment/Plan (1) Abscess of buttock, left: (2) Abscess of left thigh: (3) Hidradenitis suppurativa of anus: (4) Hydradenitis: (5) Diabetes type 2, uncontrolled: (6) Ulcer of left groin with fat layer exposed: (7) Ulcer of perineum with fat layer exposed: (8) Acute postoperative anemia due to expected blood loss: (9) Tobacco dependence syndrome: PLAN: Patient is resting in bed. He states his pain is well controlled. Operative cultures are pending. He is currently on Ceftriaxone and Vancomycin IV. Left posterior thigh and left perianal wounds are stable with no active bleeding. Redressed today with Dakin's wet to dry dressings. Left groin ulcer is stable. Hgb 8.0 today. Acute postoperative anemia due to expected blood loss. He also has a history of chronic anemia. Will continue to monitor. Will obtain Prealbumin level in the morning. His last level was 8.2 on 03/23/20. With his chronic ulcers, he will need protein supplementation. He will need a SNF at discharge to help manage his recovery. When he is discharged from the SNF, he will follow up at the wound healing center. Charges/Coding Procedures Integumentary [id number]: 18190 Global Visit
[2020-09-30 12:25] LABS: Bedside Glucose 180 mg/dL (70-110)
[2020-09-30] MEDS: oxyCODONE 5 MG Tablet 10 MG PO ×3 (13:22→22:26)
[2020-09-30] MEDS: Heparin Injection (Vial) 5,000 UNIT/ML VIAL 5000 UNIT SC (13:23)
--- NOTE | 2020-09-30 14:26 | PCM.PN.ID ---
Physical Exam Narrative Feeling ok, some pain, no fever Const alert and no apparent distress General Appearance: cooperative Resp normal air movement and clear to auscultation bilaterally Cardio regular rate and regular rhythm GI normal to inspection, nondistended, normoactive bowel sounds Skin Skin Narrative: reviewed photos ID ID: Route of nutrition/ use of supplements: [] Nutritional Intake: [] IV Site: [] Murillo Catheter: [] Assessment & Plan Assessment/Plan (1) Abscess of left thigh: PLAN: Surgery 09/[address] Smith. On vanc/ceftriaxone/flagyl. Had no issue with omnicef as an outpt. Encouraged him to get covid vaccine. With extent and location of the wound, high concern for contamination with any bowel movement. Will consult surgery for diverting ostomy. Will follow, d/w Dr. Perez
[2020-09-30 15:29] VITALS: BP 170/73; PULSE 79; RESP 16; TEMP 36.9; O2SAT 100
[2020-09-30 17:56] LABS: Bedside Glucose 211 mg/dL (70-110)
--- NOTE | 2020-09-30 18:28 | CON.PCM.SX_ITS ---
Assessment & Plan Assessment/Plan (1) Open wound of left buttock with complication: QUALIFIERS: Encounter type: initial encounter Qualified Code(s): S31.829A - Unspecified open wound of left buttock, initial encounter PLAN: My plan is to perform a laparoscopic diverting colostomy on him. We reviewed the pre-operative plans with the patient. Risks and benefits of the procedure were fully explained, including but not limited to infection, neurovascular injury, continued pain, arthritis, stiffness, need for further surgery, re-injury, DVT, PE, general risks of anesthesia, and loss of the limb or life. The patient understands all the risks and does wish to proceed with written consent. I have discussed this case with Dr. Smith and he is in agreement that with the further surgeries that he is going to undertake having a diverting colostomy on him would be of benefit. HPI Consult Data Date of Consult: 09/30/20 HPI Narrative HPI Narrative: SVEN DUONG, is a 55 M who presents nonhealing hidradenitis suppurativa to his perineal area.Patient has a history of hydradenitis suppurativa. Patient has been following with Dr. Smith following his last surgery on 05/19/2020. Patient states that his he has continued to have difficulties with his wound healing and has been on multiple courses of doxycycline and most recently cefdinir. Patient reports that he has noticed th at area has become more red and more swollen and painful and has been able to get pussy discharge out of it. Patient also reports that he has diabetes mellitus type 2 that is uncontrolled. Patient denies fever, chills, shortness of breath, chest pain, cough, nausea, vomiting, diarrhea, constipation. Patient underwent extensive debridement of the left perineal area size of the defect was 16 x 9 x 3 cm. In addition he has other disease located in the right perineal area is going to need surgery at a later date. I been asked to see this patient for diverting colostomy to aid in the healing of this perineal wound. [facility] Medical History Abscess of buttock, left Abscess of left thigh Acute blood loss anemia Anemia Anemia of chronic disease Back pain due to injury Complicated open wound of left thigh COPD (chronic obstructive pulmonary disease) Coronary artery disease Current use of insulin Diabetes Diabetes mellitus type 2, uncontrolled, with complications Diabetes type 2, uncontrolled Heart disease Hidradenitis suppurativa of anus History of stress test Hydradenitis Hydradenitis Hyperlipidemia associated with type 2 diabetes mellitus Hypertension Malnutrition Myocardial infarct Open wound of left buttock with complication Pain in the groin Skin ulcer of scrotum Sleep apnea Smoker Ulcer of left groin with fat layer exposed Ulcer of perineum with fat layer exposed Home Medications tramadol 50 mg tablet 50 mg PO Q6H PRN 30 Days #120 tab 09/02/20 [Rx Last Taken 09/26/20 14:00] cefdinir 300 mg capsule 300 mg PO Q12H 21 Days #42 cap 09/09/20 [Rx Last Taken 09/27/20 09:00] Allergy/AdvReac Type Severity Reaction Status Date / Time Penicillins Allergy Unknown Verified 09/27/20 19:04 Sulfa (Sulfonamide Allergy Unknown Verified 09/27/20 19:04 Antibiotics) bupropion [From Wellbutrin] AdvReac Severe change in Verified 09/27/20 19:04 personality ,meanness and smoked more Family History Aunt Lung disease lung cancer Father Heart disease Hypertension Family history of high cholesterol Diabetes Mother Diabetes Daughter Epilepsy Surgical History History of coronary artery stent placement History of removal of cyst History of tonsillectomy and adenoidectomy Hx of CABG Hx of hernia repair Stented coronary artery Social History Smoking Status: Current every day smoker tobacco type: cigarettes alcohol intake: never substance use type: does not use additional social history: DOES NOT TAKE ASPIRIN DOES NOT TAKE IBUPROFEN ROS Constitutional Constitutional: Denies anorexia, chills or fatigue Cardiovascular Cardiovascular: Denies chest pain Respiratory/Chest Respiratory/Chest: Denies cough or dyspnea Gastrointestinal Gastrointestinal: Denies abdominal pain or bloating Physical Exam Const alert, oriented x3 and no apparent distress General Appearance: cooperative HEENT normocephalic and head/scalp atraumatic Eyes PERRL and EOMs intact bilaterally Resp normal respiratory effort and clear to auscultation bilaterally Cardio Rate: regular rate Rhythm: regular rhythm GI soft to palpation, non-tender and non-distended Medical Records Data Medical Nutrition Assessment Dietitian: Malnutrition Criteria Met Start: 09/28/20 11:20 Freq: Status: Active Protocol: Document 09/28/20 11:30 AG (Rec: 09/28/20 11:30 AG Desktop) Nutrition Malnutrition Evidence of Malnutrition Exists Yes Malnutrition (severe): Chronic Evidenced By Suboptimal Energy Intake ( Severe),Weight Loss (Severe) Clinical Problem Chronic Disease or Condition Related Malnutrition Etiology severe malnutrition r/t inadequate energy intake w/ increased nutrient need d/t nonhealing wound Signs/Symptoms as evidenced by estimataed PO intake meeting <75% of estimated nutritional needs x 4 months, unintentional wt loss of 17#/10% x 4 months Status Active Problem Recommendation Dietitian Recommendations/Changes consistent carbohydrate diet, Curtis BID, and Glucerna 120mL 4x/day when PO diet is medically indicated. Lab / Micro Data Result Diagrams: 09/30/20 05:40 09/30/20 05:40 Labs: Laboratory Results - last 24 hr 09/29/20 22:34: POC Glucose 157 H 09/30/20 05:40: WBC 8.1, RBC 3.01 L, Hgb 8.0 L, Hct 26.3 L, MCV 87.4, MCH 26.6 L , MCHC 30.4 L, RDW Std Deviation 47.0 H, RDW Coeff of Dana 14.6, Plt Count 320, MPV 9.3, Immature Gran % (Auto) 0.500, Neut % (Auto) 71.4 H, Lymph % (Auto) 20.4, Gladwin % (Auto) 5.7, Eos % (Auto) 1.5, Baso % (Auto) 0.5, Absolute Neuts (auto) 5.8, Absolute Lymphs (auto) 1.66, Nucleated RBC % 0 09/30/20 05:40: Sodium 137, Potassium 3.8, Chloride 106, Carbon Dioxide 25.0, Anion Gap 6, BUN 5 L, Creatinine 1.03, Estim Creat Clear Calc 74.65, Est GFR (MDRD) Af Amer 96, Est GFR (MDRD) Non-Af 79, BUN/Creatinine Ratio 4.9 L, Glucose 275 H, Calcium 8.1 L, Total Bilirubin 0.20, AST 9 L, ALT 11 L, Alkaline Phosphatase 61, Total Protein 6.3 L, Albumin 1.8 L, Globulin 4.5 H, Albumin/Globulin Ratio 0.4 L 09/30/20 06:34: POC Glucose 228 H 09/30/20 12:20: POC Glucose 180 H 09/30/20 17:43: POC Glucose 211 H Micro: Microbiology 09/29/20 14:00 Tissue - Sacral Gram Stain - Final 09/29/20 14:00 Tissue - Sacral Wound Culture - Preliminary No growth-Final to follow 09/27/20 21:15 Blood Culture (Wb) - Anticubital Right Blood Culture - Preliminary No growth in 48 hours. 09/27/20 20:00 Blood Culture (Wb) - Anticubital Left Blood Culture - Preliminary No growth in 48 hours.
[2020-09-30 21:11] LABS: Vancomycin, Trough Level 15.7 ug/mL (5.0-15.0)
[2020-09-30 21:30] VITALS: BP 163/75; PULSE 67; RESP 16; TEMP 36.6; O2SAT 99
--- NOTE | 2020-09-30 22:24 | PCM.RX.CS ---
Consult Pharmacy has been consulted to manage selected antiobiotic: Vancomycin Type of Consult: Follow-up Suspected Infection: Skin/Soft tissue Prior Doses of Antibiotics Received/Current Regimen: Medications Vancomycin HCl 750 mg/ Sodium (Chloride) 265 mls @ 250 mls/hr IV Q12H MAE Last Admin: 09/30/20 20:50 Dose: 250 mls/hr Labs: Sodium 137 mmol/L (136-145) 09/30/20 05:40 Potassium 3.8 mmol/L (3.5-5.1) 09/30/20 05:40 Chloride 106 mmol/L (98-107) 09/30/20 05:40 Carbon Dioxide 25.0 mmol/L (21.0-32.0) 09/30/20 05:40 Anion Gap 6 (5-15) 09/30/20 05:40 BUN 5 mg/dL (7-18) L 09/30/20 05:40 Creatinine 1.03 mg/dL (0.70-1.30) 09/30/20 05:40 Est GFR (MDRD) Af Amer 96 mL/min (>60) 09/30/20 05:40 Est GFR (MDRD) Non-Af 79 mL/min (>60) 09/30/20 05:40 BUN/Creatinine Ratio 4.9 RATIO (10-20) L 09/30/20 05:40 Glucose 275 mg/dL (74-106) H 09/30/20 05:40 Vancomycin Trough 15.7 ug/mL (5.0-15.0) H 09/30/20 20:31 Microbiology: Microbiology 09/29/20 14:00 Tissue - Sacral Gram Stain - Final 09/29/20 14:00 Tissue - Sacral Wound Culture - Preliminary No growth-Final to follow 09/27/20 21:15 Blood Culture (Wb) - Anticubital Right Blood Culture - Preliminary No growth in 48 hours. 09/27/20 20:00 Blood Culture (Wb) - Anticubital Left Blood Culture - Preliminary No growth in 48 hours. 09/29/20 08:15 Mucosa - Nose SARS-CoV-2 Antigen (Rapid) - Final Weight used for dosin.7 kg Estimated Creatinine Clearance: 75 Goal Trough: 10-15 mcg/mL Pharmacy Plan for Drug Dosing: Vancomycin trough level of 15.7 was just at the top end of the target range of 10-15. Will continue same dosing of 750mg q12h and re-draw trough on 10/03/20. Pharmacy Service will continue to monitor and adjust dosing as required. Follow-Up Labs: Trough Vancomycin Labs to be done on [date and time ordered]: 10/03/20 @2775
[2020-09-30 22:31] LABS: Bedside Glucose 309 mg/dL (70-110)
[2020-10-01] VITALS (13 sets, daily range): BP systolic 132–183; BP diastolic 63–79; PULSE 72–94; RESP 16–20; TEMP 36.4–37.3; O2SAT 93–98; BMI 22.4
[2020-10-01] MEDS: hydrALAZINE 20 MG/ML Vial 5 MG IV ×2 (03:35→08:07)
[2020-10-01] MEDS: 0.9% Saline Lock 10 ML Syringe IV ×3 (03:36→20:15)
[2020-10-01] MEDS: metroNIDAZOLE 500 MG/100 ML BAG 100 MG IV ×3 (05:46→22:17)
[2020-10-01] MEDS: oxyCODONE 5 MG Tablet 10 MG PO ×2 (05:53→15:25)
[2020-10-01] MEDS: Insulin Lispro 100 UNIT/ML INSULN.PEN SC ×4 (06:43→21:40)
[2020-10-01 06:50] LABS: Bedside Glucose 156 mg/dL (70-110)
[2020-10-01 07:14] LABS: Absolute Lymphocyte Count 1.57 X10^3/uL (0.83-4.51); Absolute Neutrophil Count 4.8 X10^3/uL (2.0-7.7); Basophil# 0.04 X10^3/uL; Basophil% 0.6 % (0-1); Eosinophils% 1.4 % (0-5); Hematocrit 25.8 % (40-54); Hemoglobin 8.1 g/dL (13.0-16.5); Lymphocyte # 1.57 X10^3/ul (0.83-4.51); Lymphocyte % 22.6 % (19-41); Mean Corp Hgb Conc 31.4 g/dL (32-36); Mean Corpuscular Hgb 26.9 pg (27.0-32.0); Mean Corpuscular Volume 85.7 fL (80-94); Mean Platelet Vol. 9.2 fl (6.2-12.0); Monocyte# 0.41 X10^3/uL; Monocyte% 5.9 % (0-10); NRBC Flagged by Analyzer 0 % (0-5); Neutrophil % 69.2 % (47-70); Platelet Count 302 K/mm3 (150-450); RBC Distribution Width CV 14.4 % (11.6-14.6); RBC Distribution Width SD 45.1 fl (35.1-43.9); Red Blood Count 3.01 M/mm3 (4.6-6.2); White Blood Count 6.9 K/mm3 (4.4-11.0)
[2020-10-01 07:53] LABS: ALB/GLOB Ratio 0.4 RATIO (0.9-2.4); AST(SGOT) 9 U/L (15-37); Alanine Aminotransfer ALT/SGPT 10 U/L (16-61); Albumin, Serum 1.9 g/dL (3.2-5.0); Alkaline Phosphatase 63 U/L (45-117); Anion Gap 6 (5-15); BUN 2 mg/dL (7-18); BUN/Creat Ratio 2.4 RATIO (10-20); Calcium,Total 8.6 mg/dL (8.5-10.1); Chloride 109 mmol/L (98-107); Creatinine, Serum 0.84 mg/dL (0.70-1.30); EST Glomerular Filtration Rate 100 mL/min (>60); Est Glom Filt Rate - Afr Amer 122 mL/min (>60); Estimated Creatinine Clearance 91.54 ml/min; Globulin 4.5 g/dL (2.2-4.2); Glucose 154 mg/dL (74-106); Potassium 3.5 mmol/L (3.5-5.1); Prealbumin 10.8 mg/dL (20.0-40.0); Protein, Total 6.4 g/dL (6.4-8.2); Sodium Level 139 mmol/L (136-145)
[2020-10-01] MEDS: Lisinopril 20 MG Tablet PO (08:00)
[2020-10-01] MEDS: amLODIPine 10 MG Tablet PO (08:01)
[2020-10-01] MEDS: BUPIVACAINE LIPOSOME/PF 20 ML VIAL OPERA.SITE ×2 (09:52)
--- NOTE | 2020-10-01 09:59 | PCM.OPRPT ---
Problems Associated Problem List Diagnoses (1) Open wound of left buttock with complication: Report of Operation Date of Procedure: 10/01/20 Pre-Operative Diagnosis: Complicated perineal wound secondary to hidradenitis suppurativa status post excision Post-Operative Diagnosis: Same Surgery/Procedure Performed:: Laparoscopic sigmoid colostomy Description of Surgical Findings:: This 55-year-old white male who had an extensive debridement of the perineal area secondary to hidradenitis suppurativa I was consulted for diverting colostomy so that the wound would not get significantly contaminated when he had bowel movements. Surgeon: Barney Osorio Type of Anesthesia: General Anesthesiologist: Lena Thompson Specimen's removed: Sigmoid staple line Drains: None Estimated Blood Loss (mL): < 25 cc Fluids Replaced: 600 cc Description of Procedure: Patient was brought in the operating room. Placed in the supine position. Under excellent general endotracheal intubation. Murillo catheter was placed. The abdomen was sterilely prepped draped in usual fashion. Local was injected above the umbilicus. Incision was made varies needle was placed inside the abdomen the abdomen was insufflated 15 torr a #5 trocar was placed without difficulty. Under direct visualization in the right lower quadrant a 1012 trocar was placed in the midclavicular line on the right side another #5 trocar was placed suprapubically a #5 trocar was placed all these under direct visualization without injury to underlying structures. Patient was placed in the headdown and rotated to the left position I grasped the sigmoid colon lifted in the cephalad direction came down on the mesentery with the Enseal created a preperitoneal window I then dissected down the mesentery and then up towards the colon itself. I transected the colon with the 60 stapler. I mobilized more of the mesentery check to make sure I was going to have adequate length to bring my stoma up I had excellent length. I injected local into the fascia. I cut a circular incision on the left side of the abdomen made a cruciate incision on the anterior aspect of the fascia split the rectus muscle came down to the posterior fascia and entered this without difficulty. I presented the end of the sigmoid colon through the stoma grabbed with a Arnie clamp. It came up very easily. I reinflated the abdomen there was no twisting of the mesentery it looked viable it look good as far as being straight without twist. I deflated the abdomen. I put 2 sutures of 0 Vicryl into the fascia tacking one of them into the colon itself. This was on the lateral aspect of the medial aspect 8 put another suture of 0 Vicryl into the fascia. I then matured the stoma with 3-0 Vicryl repeat creating a cherokee type of pattern to the colonic mucosa. It was pink and viable and the ends were bleeding. Once this was completed I closed the fascia of the 1012 trocar with a single suture of 0 Vicryl. Skin incisions were closed with subcuticular stitches of 4-0 Monocryl. Steri-Strips were applied sterile dressings were applied ostomy device was applied. Patient tolerated the procedure well. He made 400 cc of urine during the procedure. Admit VTE Documentation VTE Present on Admission: No VTE Mechan Device Prophylaxis: SCD's VTE Pharm Prophylaxis ordered?: No Reason prophylaxis not ordered:: Treatment Not Indicated
[2020-10-01 10:41] LABS: Bedside Glucose 154 mg/dL (70-110)
--- NOTE | 2020-10-01 11:20 | PN.HOSP_ITS ---
Subjective Subjective Patient was seen and examined. He had colostomy placement done today. His pain is fairly controlled. Objective Data Objective Data Vital Signs: Vital Signs Temp Pulse Resp BP Pulse Ox 98.2 F 79 16 138/66 H 95 10/01/20 11:12 10/01/20 11:12 10/01/20 11:12 10/01/20 11:12 10/01/20 11:12 Oxygen Flow Rate (L/min) 2 Oxygen Delivery Method Room Air Weight: 66.7 kg Body Mass Index (BMI) 22.4 Intake & Output: Intake and Output for Last 24 Hours 09/29/20 09/30/20 10/01/20 23:59 23:59 23:59 Intake Total 4933.33 / 4933.33 3331.67 / 3331.67 415 / 415 Output Total 925 / 925 1125 / 1125 500 / 500 Balance 4008.33 / 4008.33 2206.67 / 2206.67 -85 / -85 Medical Nutrition Assessment Dietitian: Malnutrition Criteria Met Start: 09/28/20 11:20 Freq: Status: Active Protocol: Document 09/28/20 11:30 AG (Rec: 09/28/20 11:30 AG Desktop) Nutrition Malnutrition Evidence of Malnutrition Exists Yes Malnutrition (severe): Chronic Evidenced By Suboptimal Energy Intake ( Severe),Weight Loss (Severe) Clinical Problem Chronic Disease or Condition Related Malnutrition Etiology severe malnutrition r/t inadequate energy intake w/ increased nutrient need d/t nonhealing wound Signs/Symptoms as evidenced by estimataed PO intake meeting <75% of estimated nutritional needs x 4 months, unintentional wt loss of 17#/10% x 4 months Status Active Problem Recommendation Dietitian Recommendations/Changes consistent carbohydrate diet, Curtis BID, and Glucerna 120mL 4x/day when PO diet is medically indicated. Lab / Micro Data Result Diagrams: 10/01/20 06:10 10/01/20 06:10 Labs: Laboratory Results - last 24 hr 09/30/20 12:20: POC Glucose 180 H 09/30/20 17:43: POC Glucose 211 H 09/30/20 20:31: Vancomycin Trough 15.7 H 09/30/20 22:22: POC Glucose 309 H 10/01/20 06:10: WBC 6.9, RBC 3.01 L, Hgb 8.1 L, Hct 25.8 L, MCV 85.7, MCH 26.9 L , MCHC 31.4 L, RDW Std Deviation 45.1 H, RDW Coeff of Dana 14.4, Plt Count 302, MPV 9.2, Immature Gran % (Auto) 0.300, Neut % (Auto) 69.2, Lymph % (Auto) 22.6, Lipscomb % (Auto) 5.9, Eos % (Auto) 1.4, Baso % (Auto) 0.6, Absolute Neuts (auto) 4.8, Absolute Lymphs (auto) 1.57, Nucleated RBC % 0 10/01/20 06:10: Sodium 139, Potassium 3.5, Chloride 109 H, Carbon Dioxide 24.0, Anion Gap 6, BUN 2 L, Creatinine 0.84, Estim Creat Clear Calc 91.54, Est GFR (MDRD) Af Amer 122, Est GFR (MDRD) Non-Af 100, BUN/Creatinine Ratio 2.4 L, Glucose 154 H, Calcium 8.6, Total Bilirubin 0.20, AST 9 L, ALT 10 L, Alkaline Phosphatase 63, Total Protein 6.4, Albumin 1.9 L, Globulin 4.5 H, Al bumin/Globulin Ratio 0.4 L, Prealbumin 10.8 L 10/01/20 06:40: POC Glucose 156 H 10/01/20 10:36: POC Glucose 154 H Micro: Microbiology 09/29/20 14:00 Tissue - Sacral Gram Stain - Final 09/29/20 14:00 Tissue - Sacral Wound Culture - Preliminary Beta streptococcus 09/27/20 21:15 Blood Culture (Wb) - Anticubital Right Blood Culture - Preliminary No growth in 48 hours. 09/27/20 20:00 Blood Culture (Wb) - Anticubital Left Blood Culture - P reliminary No growth in 48 hours. 09/29/20 08:15 Mucosa - Nose SARS-CoV-2 Antigen (Rapid) - Final Physical Exam Narrative Physical exam: General: Alert, Oriented x3, Cooperative, No apparent distress, in mild distress from pain HEENT: Atraumatic Oral: Moist Mucosa Neck: Supple Lungs: Clear to auscultation Cardiovascular: HS I+II, regular, no murmurs Abdomen: Left upper quadrant colostomy, bowel Sounds Present, Soft, Non Tender, ulcerations in the left groin and perineal area Extremities: No edema Assessment & Plan Assessment/Plan (1) Abscess of left thigh: (2) Failure of outpatient treatment: PLAN: 1. POD #2 status post I&D and excision of hidradenitis abscess for acute multiple subcutaneous abscesses in the perineal, upper gluteal and posterior left thigh, infected ulcers/hidradenitis POD#0 s/p left diverting colostomy Intraoperative cultures growing beta Streptococcus continue on IV antibiotics - IV vancomycin, ceftriaxone and Flagyl ID, plastic surgery, general surgery following 2. Hypertension, blood pressure is fairly uncontrolled, suspect it is related to pain Continue lisinopril and amlodipine 3. Diabetes mellitus type 2, blood glucose is controlled Last HbA1c in July 2020 was 7.8 Continue with insulin sliding scale for now 4. Nicotine dependence, continue replacement Charges/Coding Visit Charges Inpatient E&M: 12736 [facility] Hosp L3
[2020-10-01 12:21] LABS: Bedside Glucose 183 mg/dL (70-110)
[2020-10-01] MEDS: Ondansetron 4 MG/2 ML Vial IV (15:24)
[2020-10-01] MEDS: DAKIN'S SOL HALF STRENGTH (=0.25%) 1 APPLIC TOPICAL (15:29)
--- NOTE | 2020-10-01 16:23 | CASEMGMT ---
MICHAEL Note: Referral Source: [employer] Referral Reason: SNF placement SW met with patient and his called just as this technical document writer introduced self. said that she called the insurance and they are looking at using out of area benefits. She said that [place] is too far away. She said that she has talked to Leyda in TCU and they would like to go to the TCU but Leyda is needing additional information. Patient's said that there second choice in [facility] in [place] ([phone]). MICHAEL sent email to Leyda and CC'd to Valeria Monet. SW remains available if needs arise. Plan: To Be determined Vivi LIN
[2020-10-01 19:31] LABS: Bedside Glucose 354 mg/dL (70-110)
[2020-10-01] MEDS: Senna/Docusate Sodium 1 Tablet 2 TABLET PO (21:38)
[2020-10-01 22:00] LABS: Bedside Glucose 210 mg/dL (70-110)
[2020-10-02] VITALS (10 sets, daily range): BP systolic 150–181; BP diastolic 54–84; PULSE 63–80; RESP 16–20; TEMP 36.5–36.7; O2SAT 94–99
[2020-10-02] MEDS: 0.9% Saline Lock 10 ML Syringe IV ×3 (00:15→21:41)
[2020-10-02] MEDS: oxyCODONE 5 MG Tablet 10 MG PO ×2 (04:23→09:13)
[2020-10-02 05:27] LABS: Absolute Lymphocyte Count 1.68 X10^3/uL (0.83-4.51); Absolute Neutrophil Count 9.3 X10^3/uL (2.0-7.7); Basophil# 0.01 X10^3/uL; Basophil% 0.1 % (0-1); Eosinophil# 0.01 X10^3/uL; Eosinophils% 0.1 % (0-5); Hematocrit 24.1 % (40-54); Hemoglobin 7.8 g/dL (13.0-16.5); Lymphocyte # 1.68 X10^3/ul (0.83-4.51); Lymphocyte % 14.6 % (19-41); Mean Corp Hgb Conc 32.4 g/dL (32-36); Mean Corpuscular Hgb 27.5 pg (27.0-32.0); Mean Corpuscular Volume 84.9 fL (80-94); Mean Platelet Vol. 8.8 fl (6.2-12.0); Monocyte# 0.47 X10^3/uL; Monocyte% 4.1 % (0-10); NRBC Flagged by Analyzer 0 % (0-5); Neutrophil # 9.28 X10^3/uL (2.7-7.7); Neutrophil % 80.6 % (47-70); Platelet Count 302 K/mm3 (150-450); RBC Distribution Width CV 14.6 % (11.6-14.6); RBC Distribution Width SD 45.1 fl (35.1-43.9); Red Blood Count 2.84 M/mm3 (4.6-6.2); White Blood Count 11.5 K/mm3 (4.4-11.0)
[2020-10-02] MEDS: Insulin Lispro 100 UNIT/ML INSULN.PEN SC ×4 (05:38→21:49)
[2020-10-02] MEDS: metroNIDAZOLE 500 MG/100 ML BAG 100 MG IV ×3 (05:46→21:48)
[2020-10-02 05:56] LABS: ALB/GLOB Ratio 0.4 RATIO (0.9-2.4); AST(SGOT) 9 U/L (15-37); Alanine Aminotransfer ALT/SGPT 9 U/L (16-61); Albumin, Serum 1.9 g/dL (3.2-5.0); Alkaline Phosphatase 60 U/L (45-117); Anion Gap 7 (5-15); BUN 3 mg/dL (7-18); BUN/Creat Ratio 2.8 RATIO (10-20); Calcium,Total 8.3 mg/dL (8.5-10.1); Chloride 107 mmol/L (98-107); Creatinine, Serum 1.06 mg/dL (0.70-1.30); EST Glomerular Filtration Rate 77 mL/min (>60); Est Glom Filt Rate - Afr Amer 93 mL/min (>60); Estimated Creatinine Clearance 72.54 ml/min; Globulin 4.4 g/dL (2.2-4.2); Glucose 310 mg/dL (74-106); Potassium 3.4 mmol/L (3.5-5.1); Protein, Total 6.3 g/dL (6.4-8.2); Sodium Level 138 mmol/L (136-145)
[2020-10-02 06:11] LABS: Bedside Glucose 293 mg/dL (70-110)
[2020-10-02] MEDS: Lisinopril 20 MG Tablet PO (09:00)
[2020-10-02] MEDS: amLODIPine 10 MG Tablet PO (09:00)
[2020-10-02] MEDS: Acetaminophen 325 MG Tablet 650 MG PO (09:13)
--- NOTE | 2020-10-02 09:47 | PN.SURG_ITS ---
Subjective Subjective Minimal discomfort in his abdomen at this time. Ostomy is functioning on postoperative day #1 Objective Data Objective Data Stoma slightly swollen stool coming out of it looks great dressings are dry Vital Signs: Vital Signs Temp Pulse Resp BP Pulse Ox 98 F 63 20 H 150/60 H 94 10/02/20 07:59 10/02/20 08:01 10/02/20 08:01 10/02/20 07:59 10/02/20 08:01 Oxygen Flow Rate (L/min) 2 Oxygen Delivery Method Room Air Weight: 147 lb 0.773 oz Body Mass Index (BMI) 22.4 Intake & Output: Intake and Output for Last 24 Hours 09/30/20 10/01/20 10/02/20 23:59 23:59 23:59 Intake Total 3331.67 / 3331.67 1380 / 1880 800 / 800 Output Total 1125 / 1125 1350 / 2650 2300 / 2300 Balance 2206.67 / 2206.67 30 / -770 -1500 / -1500 Medical Nutrition Assessment Dietitian: Malnutrition Criteria Met Start: 09/28/20 11:20 Freq: Status: Active Protocol: Document 09/28/20 11:30 AG (Rec: 09/28/20 11:30 AG Desktop) Nutrition Malnutrition Evidence of Malnutrition Exists Yes Malnutrition (severe): Chronic Evidenced By Suboptimal Energy Intake ( Severe),Weight Loss (Severe) Clinical Problem Chronic Disease or Condition Related Malnutrition Etiology severe malnutrition r/t inadequate energy intake w/ increased nutrient need d/t nonhealing wound Signs/Symptoms as evidenced by estimataed PO intake meeting <75% of estimated nutritional needs x 4 months, unintentional wt loss of 17#/10% x 4 months Status Active Problem Recommendation Dietitian Recommendations/Changes consistent carbohydrate diet, Curtis BID, and Glucerna 120mL 4x/day when PO diet is medically indicated. Lab / Micro Data Result Diagrams: 10/02/20 05:10 10/02/20 05:10 Labs: Laboratory Results - last 24 hr 10/01/20 10:36: POC Glucose 154 H 10/01/20 12:06: POC Glucose 183 H 10/01/20 17:50: POC Glucose 354 H 10/01/20 21:40: POC Glucose 210 H 10/02/20 05:10: WBC 11.5 H, RBC 2.84 L, Hgb 7.8 L, Hct 24.1 L, MCV 84.9, MCH 27.5, MCHC 32.4, RDW Std Deviation 45.1 H, RDW Coeff of Dana 14.6, Plt Count 302, MPV 8.8, Immature Gran % (Auto) 0.500, Neut % (Auto) 80.6 H, Lymph % (Auto) 14.6 L, Travis % (Auto) 4.1, Eos % (Auto) 0.1, Baso % (Auto) 0.1, Absolute Neuts (auto) 9.3 H, Absolute Lymphs (auto) 1.68, Nucleated RBC % 0 10/02/20 05:10: Sodium 138, Potassium 3.4 L, Chloride 107, Carbon Dioxide 24.0, Anion Gap 7, BUN 3 L, Creatinine 1.06, Estim Creat Clear Calc 72.54, Est GFR (MDRD) Af Amer 93, Est GFR (MDRD) Non-Af 77, BUN/Creatinine Ratio 2.8 L, Glucose 310 H, Calcium 8.3 L, Total Bilirubin 0.20, AST 9 L, ALT 9 L, Alkaline Phosphatase 60, Total Protein 6.3 L, Albumin 1.9 L, Globulin 4.4 H, Albumin/Globulin Ratio 0.4 L 10/02/20 05:36: POC Glucose 293 H Micro: Microbiology 09/29/20 14:00 Tissue - Sacral Gram Stain - Final 09/29/20 14:00 Tissue - Sacral Wound Culture - Preliminary Beta streptococcus 09/27/20 21:15 Blood Culture (Wb) - Anticubital Right Blood Culture - Preliminary No growth in 48 hours. 09/27/20 20:00 Blood Culture (Wb) - Anticubital Left Blood Culture - Preliminary No growth in 48 hours. 09/29/20 08:15 Mucosa - Nose SARS-CoV-2 Antigen (Rapid) - Final Assessment & Plan Assessment/Plan (1) Open wound of left buttock with complication: QUALIFIERS: Encounter type: initial encounter Qualified Code(s): S31.829A - Unspecified open wound of left buttock, initial encounter PLAN: Postoperative day #1 Advance diet Remove Murillo
--- NOTE | 2020-10-02 10:44 | PCM.PN.HOSP ---
Subjective Subjective Patient was seen and examined. No new complaints. No acute events. Denied any fever or chills. No diarrhea. Objective Data Objective Data Vital Signs: Vital Signs Temp Pulse Resp BP Pulse Ox 98 F 63 20 H 150/60 H 94 10/02/20 07:59 10/02/20 08:01 10/02/20 08:01 10/02/20 07:59 10/02/20 08:01 Oxygen Flow Rate (L/min) 2 Oxygen Delivery Method Room Air Weight: 66.7 kg Body Mass Index (BMI) 22.4 Intake & Output: Intake and Output for Last 24 Hours 09/30/20 10/01/20 10/02/20 23:59 23:59 23:59 Intake Total 3331.67 / 3331.67 1380 / 1880 800 / 800 Output Total 1125 / 1125 1350 / 2650 2300 / 2300 Balance 2206.67 / 2206.67 30 / -770 -1500 / -1500 Medical Nutrition Assessment Dietitian: Malnutrition Criteria Met Start: 09/28/20 11:20 Freq: Status: Active Protocol: Document 09/28/20 11:30 AG (Rec: 09/28/20 11:30 AG Desktop) Nutrition Malnutrition Evidence of Malnutrition Exists Yes Malnutrition (severe): Chronic Evidenced By Suboptimal Energy Intake ( Severe),Weight Loss (Severe) Clinical Problem Chronic Disease or Condition Related Malnutrition Etiology severe malnutrition r/t inadequate energy intake w/ increased nutrient need d/t nonhealing wound Signs/Symptoms as evidenced by estimataed PO intake meeting <75% of estimated nutritional needs x 4 months, unintentional wt loss of 17#/10% x 4 months Status Active Problem Recommendation Dietitian Recommendations/Changes consistent carbohydrate diet, Curtis BID, and Glucerna 120mL 4x/day when PO diet is medically indicated. Lab / Micro Data Result Diagrams: 10/02/20 05:10 10/02/20 05:10 Labs: Laboratory Results - last 24 hr 10/01/20 12:06: POC Glucose 183 H 10/01/20 17:50: POC Glucose 354 H 10/01/20 21:40: POC Glucose 210 H 10/02/20 05:10: WBC 11.5 H, RBC 2.84 L, Hgb 7.8 L, Hct 24.1 L, MCV 84.9, MCH 27.5, MCHC 32.4, RDW Std Deviation 45.1 H, RDW Coeff of Dana 14.6, Plt Count 302, MPV 8.8, Immature Gran % (Auto) 0.500, Neut % (Auto) 80.6 H, Lymph % (Auto) 14.6 L, [place] % (Auto) 4.1, Eos % (Auto) 0.1, Baso % (Auto) 0.1, Absolute Neuts (auto) 9.3 H, Absolute Lymphs (auto) 1.68, Nucleated RBC % 0 10/02/20 05:10: Sodium 138, Potassium 3.4 L, Chloride 107, Carbon Dioxide 24.0, Anion Gap 7, BUN 3 L, Creatinine 1.06, Estim Creat Clear Calc 72.54, Est GFR (MDRD) Af Amer 93, Est GFR (MDRD) Non-Af 77, BUN/Creatinine Ratio 2.8 L, Glucose 310 H, Calcium 8.3 L, Total Bilirubin 0.20, AST 9 L, ALT 9 L, Alkaline Phosphatase 60, Total Protein 6.3 L, Albumin 1.9 L, Globulin 4.4 H, Albumin/Globulin Ratio 0.4 L 10/02/20 05:36: POC Glucose 293 H Micro: Microbiology 09/29/20 14:00 Tissue - Sacral Gram Stain - Final 09/29/20 14:00 Tissue - Sacral Wound Culture - Preliminary Beta streptococcus 09/27/20 21:15 Blood Culture (Wb) - Anticubital Right Blood Culture - Preliminary No growth in 48 hours. 09/27/20 20:00 Blood Culture (Wb) - Anticubital Left Blood Culture - Preliminary No growth in 48 hours. 09/29/20 08:15 Mucosa - Nose SARS-CoV-2 Antigen (Rapid) - Final Physical Exam Narrative Physical exam: General: Alert, Oriented x3, Cooperative, No apparent distress, in mild distress from pain HEENT: Atraumatic Oral: Moist Mucosa Neck: Supple Lungs: Clear to auscultation Cardiovascular: HS I+II, regular, no murmurs Abdomen: Left upper quadrant colostomy, bowel Sounds Present, Soft, Non Tender, ulcerations in the left groin and perineal area Extremities: No edema Assessment & Plan Assessment/Plan (1) Abscess of left thigh: (2) Failure of outpatient treatment: PLAN: Summary: 55-year-old diabetic who comes in referred from Dr. Smith's office for surgery for infected extensive perineal, left thigh hidradenitis /abscesses 1. POD #3 status post I&D and excision of hidradenitis abscesses in the perineal, upper gluteal and posterior left thigh POD#1 s/p left diverting colostomy to allow for wound healing Intraoperative cultures growing beta Streptococcus Continue on IV antibiotics - IV vancomycin, ceftriaxone and Flagyl ID, plastic surgery, general surgery, wound RN following 2. Hypokalemia, replaced 3. Anemia, likely secondary to acute blood loss from surgeries Drop in hemoglobin from 10.1-7.8 We will check iron stores, start on oral iron, vitamin C, continue stool softeners 4. Hypertension, blood pressure remains uncontrolled, this may be related to pain control However will increase lisinopril to 40 mg p.o. daily, amlodipine 10 mg daily, continue hydralazine as needed 5. Diabetes mellitus type 2, blood glucose is uncontrolled as patient is eating Last HbA1c in July 2020 was 7.8 We will start on Lantus 5 units nightly today, continue with medium to high-dose insulin sliding scale 6. Nicotine dependence, continue replacement Disposition: Pending discharge to SNF Charges/Coding Visit Charges Inpatient E&M: 07870 Subs Hosp L2
[2020-10-02 11:20] LABS: Iron 51 ug/dL (65-175); Iron Binding Capacity,Total 106 ug/dL (250-450); PERCENT IRON SATURATION 48.1 % (15.0-55.0)
[2020-10-02] MEDS: Potassium Chloride Oral Tablet 20 MEQ 60 MEQ PO (12:47)
[2020-10-02] MEDS: Ferrous Sulfate 325 MG Tablet PO ×2 (12:50→16:22)
[2020-10-02 13:51] LABS: Bedside Glucose 187 mg/dL (70-110)
[2020-10-02] MEDS: DAKIN'S SOL HALF STRENGTH (=0.25%) 1 APPLIC TOPICAL (14:55)
[2020-10-02] MEDS: hydrALAZINE 20 MG/ML Vial 5 MG IV (16:15)
[2020-10-02 16:16] LABS: Bedside Glucose 151 mg/dL (70-110)
[2020-10-02] MEDS: HYDROmorphone 1 MG/ML Syringe 2 MG IV ×2 (16:16→21:41)
[2020-10-02] MEDS: Ascorbic Acid 500 MG Tablet PO (16:16)
[2020-10-02] MEDS: Senna/Docusate Sodium 1 Tablet 2 TABLET PO (21:50)
[2020-10-02 22:06] LABS: Bedside Glucose 224 mg/dL (70-110)
[2020-10-03 02:41] VITALS: BP 176/81; PULSE 72; RESP 16; TEMP 36.8; O2SAT 98
[2020-10-03] MEDS: HYDROmorphone 1 MG/ML Syringe 2 MG IV ×3 (02:48→10:07)
[2020-10-03] MEDS: 0.9% Saline Lock 10 ML Syringe IV ×2 (02:48→06:36)
[2020-10-03 06:32] VITALS: BP 191/84
[2020-10-03 06:41] LABS: Bedside Glucose 122 mg/dL (70-110)
[2020-10-03 06:43] VITALS: BP 191/84; PULSE 75
[2020-10-03] MEDS: hydrALAZINE 20 MG/ML Vial 5 MG IV (06:43)
[2020-10-03 06:44] LABS: Absolute Lymphocyte Count 2.32 X10^3/uL (0.83-4.51); Absolute Neutrophil Count 5.7 X10^3/uL (2.0-7.7); Basophil# 0.06 X10^3/uL; Basophil% 0.7 % (0-1); Eosinophil# 0.14 X10^3/uL; Eosinophils% 1.6 % (0-5); Hemoglobin 8.7 g/dL (13.0-16.5); Lymphocyte # 2.32 X10^3/ul (0.83-4.51); Lymphocyte % 26.2 % (19-41); Mean Corp Hgb Conc 31.1 g/dL (32-36); Mean Corpuscular Hgb 26.9 pg (27.0-32.0); Mean Corpuscular Volume 86.4 fL (80-94); Mean Platelet Vol. 8.6 fl (6.2-12.0); Monocyte# 0.57 X10^3/uL; Monocyte% 6.4 % (0-10); NRBC Flagged by Analyzer 0 % (0-5); Neutrophil # 5.71 X10^3/uL (2.7-7.7); Neutrophil % 64.4 % (47-70); Platelet Count 351 K/mm3 (150-450); RBC Distribution Width SD 47.1 fl (35.1-43.9); Red Blood Count 3.24 M/mm3 (4.6-6.2); White Blood Count 8.9 K/mm3 (4.4-11.0)
[2020-10-03] MEDS: metroNIDAZOLE 500 MG/100 ML BAG 100 MG IV ×2 (06:49→13:59)
[2020-10-03 07:09] LABS: ALB/GLOB Ratio 0.4 RATIO (0.9-2.4); AST(SGOT) 13 U/L (15-37); Alanine Aminotransfer ALT/SGPT 13 U/L (16-61); Albumin, Serum 2.1 g/dL (3.2-5.0); Alkaline Phosphatase 66 U/L (45-117); Anion Gap 5 (5-15); BUN 4 mg/dL (7-18); BUN/Creat Ratio 4.5 RATIO (10-20); Calcium,Total 8.6 mg/dL (8.5-10.1); Chloride 109 mmol/L (98-107); Creatinine, Serum 0.89 mg/dL (0.70-1.30); EST Glomerular Filtration Rate 94 mL/min (>60); Est Glom Filt Rate - Afr Amer 113 mL/min (>60); Estimated Creatinine Clearance 86.39 ml/min; Globulin 4.7 g/dL (2.2-4.2); Glucose 127 mg/dL (74-106); Potassium 3.7 mmol/L (3.5-5.1); Protein, Total 6.8 g/dL (6.4-8.2); Sodium Level 142 mmol/L (136-145)
--- NOTE | 2020-10-03 08:35 | NURSING ---
removed the ostomy appliance from the left lower abdomen. there was a small amount of serosanguineous drainage noted in the appliance. stoma is beefy red, moist, and edematous. Peristomal skin is intact. no redness noted. stoma is very well budded and measures approx 2 in diameter. cleansed peristomal skin with warm water. pat dry. applied a new 2 piece flat Shruthi appliance with an [employer] ring. pt tolerated well. pt states plan is for a short stay in a [place] [facility] facility prior to discharge home with .
[2020-10-03 08:40] VITALS: BP 159/60; PULSE 93; RESP 18; TEMP 36.3; O2SAT 97
--- NOTE | 2020-10-03 08:42 | NURSING ---
stoma photo: left abdomen
--- NOTE | 2020-10-03 08:42 | NURSING ---
wound photo: left buttock/posterior thigh
--- NOTE | 2020-10-03 08:43 | NURSING ---
wound photo: left groin
[2020-10-03] MEDS: DAKIN'S SOL HALF STRENGTH (=0.25%) 1 APPLIC TOPICAL (08:55)
--- NOTE | 2020-10-03 08:55 | PN.HOSP_ITS ---
Subjective Subjective 55-year-old diabetic who comes in referred from Dr. Smith's office for surgery for infected extensive perineal, left thigh hidradenitis /abscesses Objective Data Objective Data Vital Signs: Vital Signs Temp Pulse Resp BP Pulse Ox 97.3 F L 93 18 159/60 H 97 10/03/20 08:40 10/03/20 08:40 10/03/20 08:40 10/03/20 08:40 10/03/20 08:40 Oxygen Flow Rate (L/min) 2 Oxygen Delivery Method Room Air Weight: 66.7 kg Body Mass Index (BMI) 22.4 Intake & Output: Intake and Output for Last 24 Hours 10/01/20 10/02/20 10/03/20 23:59 23:59 23:59 Intake Total 1380 / 1880 2430 / 2930 500 / 500 Output Total 1350 / 2650 2500 / 2500 75 / 75 Balance 30 / -770 -70 / 430 425 / 425 Medical Nutrition Assessment Dietitian: Malnutrition Criteria Met Start: 09/28/20 11:20 Freq: Status: Active Protocol: Document 09/28/20 11:30 AG (Rec: 09/28/20 11:30 AG Desktop) Nutrition Malnutrition Evidence of Malnutrition Exists Yes Malnutrition (severe): Chronic Evidenced By Suboptimal Energy Intake ( Severe),Weight Loss (Severe) Clinical Problem Chronic Disease or Condition Related Malnutrition Etiology severe malnutrition r/t inadequate energy intake w/ increased nutrient need d/t nonhealing wound Signs/Symptoms as evidenced by estimataed PO intake meeting <75% of estimated nutritional needs x 4 months, unintentional wt loss of 17#/10% x 4 months Status Active Problem Recommendation Dietitian Recommendations/Changes consistent carbohydrate diet, Curtis BID, and Glucerna 120mL 4x/day when PO diet is medically indicated. Lab / Micro Data Result Diagrams: 10/03/20 05:45 10/03/20 05:45 Labs: Laboratory Results - last 24 hr 10/02/20 05:10: Iron 51 L, TIBC 106 L, Iron Saturation 48.1 10/02/20 13:32: POC Glucose 187 H 10/02/20 16:08: POC Glucose 151 H 10/02/20 21:46: POC Glucose 224 H 10/03/20 05:45: WBC 8.9, RBC 3.24 L, Hgb 8.7 L, Hct 28.0 L, MCV 86.4, MCH 26.9 L , MCHC 31.1 L, RDW Std Deviation 47.1 H, RDW Coeff of Dana 15.0 H, Plt Count 351, MPV 8.6, Immature Gran % (Auto) 0.700, Neut % (Auto) 64.4, Lymph % (Auto) 26.2, [place] % (Auto) 6.4, Eos % (Auto) 1.6, Baso % (Auto) 0.7, Absolute Neuts (auto) 5.7, Absolute Lymphs (auto) 2.32, Nucleated RBC % 0 10/03/20 05:45: Sodium 142, Potassium 3.7, Chloride 109 H, Carbon Dioxide 28.0, Anion Gap 5, BUN 4 L, Creatinine 0.89, Estim Creat Clear Calc 86.39, Est GFR (MDRD) Af Amer 113, Est GFR (MDRD) Non-Af 94, BUN/Creatinine Ratio 4.5 L, Glucose 127 H, Calcium 8.6, Total Bilirubin 0.20, AST 13 L, ALT 13 L, Alkaline Phosphatase 66, Total Protein 6.8, Albumin 2.1 L, Globulin 4.7 H, Albumin/Globulin Ratio 0.4 L 10/03/20 06:35: POC Glucose 122 H Micro: Microbiology 09/29/20 14:00 Tissue - Sacral Gram Stain - Final 09/29/20 14:00 Tissue - Sacral Wound Culture - Final Streptococcus constellatus pha Corynebacterium striatum 09/29/20 14:00 Tissue - Sacral Anaerobic Culture - Preliminary Checking for anaerobes, further studies to follow. 09/27/20 21:15 Blood Culture (Wb) - Anticubital Right Blood Culture - Final No growth in 5 days. 09/27/20 20:00 Blood Culture (Wb) - Anticubital Left Blood Culture - Final No growth in 5 days. 09/29/20 08:15 Mucosa - Nose SARS-CoV-2 Antigen (Rapid) - Final Physical Exam Narrative GENERAL: cooperative HEENT: Atraumatic; EYES; Anicteric, Normal Conjunctiva NECK; supple, normal thyroid, RESPIRATORY: Diminished to auscultation CARDIOVASCULAR: Regular S1 S2, GI: soft, normoactive bowel sounds, colostomy left lower quadrant : No Renal angle tenderness; EXTREMITIES: Surgical dressing in groin MUSCULOSKELETAL: no muscle waisting NEURO: Awake; no lateralizing signs. SKIN: No Rash PSYCH; Flat affect Assessment & Plan Assessment/Plan (1) Abscess of left thigh: (2) Failure of outpatient treatment: PLAN: 55-year-old diabetic who comes in referred from Dr. Smith's office for surgery for infected extensive perineal, left thigh hidradenitis /abscesses 1. Infected left thigh hidradenitis as well as abscess of the left buttock ?Patient underwent incision and drainage by Dr. Smith on 09/29/2020 as well as Laparoscopic sigmoid dilating colostomy by Dr. Osorio on 09/29/2020. Subsequently started on broad-spectrum antibiotic therapy. Cultures so far positive for Streptococcus constellatus pha and Corynebacterium striatum antibiotic therapy deferred to infectious disease 2. Hypertension - Blood pressure controlled, home medications continued with dose adjustment as needed 3. Diabetes mellitus type 2 uncontrolled with hyperglycemia ?Due to patient not being compliant with diet therapy. Did continue with long- acting insulin in addition to Accu-Cheks before meals and at bedtime with sliding scale coverage 4. Anemia - Secondary to chronic disorder as well as acute blood loss anemia monitoring H&H and transfuse if patient becomes symptomatic or hemoglobin falls below 7 5. Tobacco dependence - Counseled on cessation, offered nicotine patch for tobacco cravings 6. DVT prophylaxis - On enoxaparin Charges/Coding Visit Charges Inpatient E&M: 45921 Subs Hosp L2
[2020-10-03] MEDS: amLODIPine 10 MG Tablet PO (08:57)
[2020-10-03] MEDS: Senna/Docusate Sodium 1 Tablet 2 TABLET PO (08:57)
[2020-10-03] MEDS: Ascorbic Acid 500 MG Tablet PO (08:58)
[2020-10-03] MEDS: Lisinopril 40 MG Tablet PO (08:58)
[2020-10-03 09:00] VITALS: RESP 18
[2020-10-03] MEDS: oxyCODONE 5 MG Tablet 10 MG PO (09:04)
[2020-10-03] MEDS: Acetaminophen 325 MG Tablet 650 MG PO (09:04)
[2020-10-03 09:08] LABS: Vancomycin, Trough Level 15.9 ug/mL (5.0-15.0)
--- NOTE | 2020-10-03 09:46 | PCM.RX.CS ---
Consult Pharmacy has been consulted to manage selected antiobiotic: Vancomycin Type of Consult: Follow-up Suspected Infection: Skin/Soft tissue Labs: Sodium 142 mmol/L (136-145) 10/03/20 05:45 Potassium 3.7 mmol/L (3.5-5.1) 10/03/20 05:45 Chloride 109 mmol/L (98-107) H 10/03/20 05:45 Carbon Dioxide 28.0 mmol/L (21.0-32.0) 10/03/20 05:45 Anion Gap 5 (5-15) 10/03/20 05:45 BUN 4 mg/dL (7-18) L 10/03/20 05:45 Creatinine 0.89 mg/dL (0.70-1.30) 10/03/20 05:45 Est GFR (MDRD) Af Amer 113 mL/min (>60) 10/03/20 05:45 Est GFR (MDRD) Non-Af 94 mL/min (>60) 10/03/20 05:45 BUN/Creatinine Ratio 4.5 RATIO (10-20) L 10/03/20 05:45 Glucose 127 mg/dL (74-106) H 10/03/20 05:45 Vancomycin Trough 15.9 ug/mL (5.0-15.0) H 10/03/20 08:28 Microbiology: Microbiology 09/29/20 14:00 Tissue - Sacral Gram Stain - Final 09/29/20 14:00 Tissue - Sacral Wound Culture - Final Streptococcus constellatus pha Corynebacterium striatum 09/29/20 14:00 Tissue - Sacral Anaerobic Culture - Preliminary Checking for anaerobes, further studies to follow. 09/27/20 21:15 Blood Culture (Wb) - Anticubital Right Blood Culture - Final No growth in 5 days. 09/27/20 20:00 Blood Culture (Wb) - Anticubital Left Blood Culture - Final No growth in 5 days. 09/29/20 08:15 Mucosa - Nose SARS-CoV-2 Antigen (Rapid) - Final Goal Trough: 10-15 mcg/mL Pharmacy Plan for Drug Dosing: Patient trough is 15.9 today, although that is a little high, he will be continued on vancomycin 750mg q12h. trough level scheduled for 2099 Pharmacy Service will continue to monitor and adjust dosing as required. Follow-Up Labs: Trough Vancomycin Labs to be done on [date and time ordered]: 10/01/2020 @ 2100
[2020-10-03] MEDS: Enoxaparin 40 MG/0.4 ML Syringe SC (10:15)
--- NOTE | 2020-10-03 10:24 | DS.PCM_ITS ---
Providers Date of Admission: 09/27/20 Primary Care Physician: DEVONTE Zimmerman Consultations 09/27/20 23:53 Consult: Onc/Wound/radio division officer Routine Comment: Consult: Plastic Surgery Routine Consulting Provider: Cortez Smith Reason for Consult: HS EMERGENT Consult: No Notified: Yes Date Notified: 09/27/20 Time Notified: 23:20 Method of Notification: Provider Initiated 09/28/20 15:54 Consult: Infectious Disease Routine Consulting Provider: Mariano Palmer Reason for Consult: Severe infected hidradenitis EMERGENT Consult: No MD Notified: Yes Date Notified: 09/28/20 Time Notified: 16:43 Method of Notification: Text 09/30/20 14:25 Consult: General Surgery Routine Consulting Provider: Barney Osorio Reason for Consult: diverting ostomy EMERGENT Consult: No Notified: Yes Date Notified: 09/30/20 Time Notified: 17:53 Method of Notification: spoke on phone Reason For Visit: CELLULITIS, NONHEALING WOUND Diagnosis Discharge Diagnosis (1) Abscess of left thigh: Status: Acute Code(s): L02.416 - Cutaneous abscess of left lower limb (2) Failure of outpatient treatment: Status: Acute Code(s): Z78.9 - Other specified health status Medications at Discharge Home Medications cefdinir 300 mg capsule 300 mg PO Q12H 21 Days #42 cap 09/09/20 acetaminophen [Tylenol] 650 mg PO Q6H PRN PRN #0 tab 10/03/20 albuterol sulfate 2.5 mg INHALATION Q2H PRN PRN #0 ml 10/03/20 amlodipine 10 mg PO DAILY #0 tab 10/03/20 ascorbic acid (vitamin C) 500 mg PO BIDCM #0 tab 10/03/20 docusate sodium [DOK] 100 mg PO BID PRN PRN #0 cap 10/03/20 doxycycline hyclate 100 mg PO BID #14 cap 10/03/20 ferrous sulfate [FeroSul] 325 mg PO 1200,1700 #0 tab 10/03/20 insulin glargine [Lantus Solostar U-100 Insulin] 5 units SUBCUT QHS #0 ml 10/03/20 insulin lispro [Humalog KwikPen Insulin] See Protocol SUBCUT ACHS #0 ml 10/03/20 lisinopril 40 mg PO DAILY #0 tab 10/03/20 melatonin 3 mg PO QHS PRN PRN #0 tab 10/03/20 nicotine 21 mg TRANSDERMAL DAILY #0 ea 10/03/20 oxycodone 10 mg PO Q4H PRN PRN 3 Days #12 tab 10/03/20 polyethylene glycol 3350 17 g PO DAILY PRN #0 ea 10/03/20 sennosides-docusate sodium [Stool Softener-Stimulant Laxat] 2 tab PO BID #0 tab 10/03/20 Hospital Course Summary of Care Provided Minutes Spent on Discharge: 45 Hospital Course: 55-year-old diabetic who comes in referred from Dr. Smith's office for surgery for infected extensive perineal, left thigh hidradenitis /abscesses 1. Infected left thigh hidradenitis as well as abscess of the left buttock ?Patient underwent incision and drainage by Dr. Smith on 09/29/2020 as well as Laparoscopic sigmoid dilating colostomy by Dr. Oosrio on 09/29/2020. Subsequently started on broad-spectrum antibiotic therapy. Cultures so far positive for Streptococcus constellatus pha and Corynebacterium striatum antibiotic therapy deferred to infectious disease -Patient was discharged to the transitional care unit to continue with recuperation. Patient was discharged on cefdinir and doxycycline 2. Hypertension - Blood pressure controlled, home medications continued with dose adjustment as needed 3. Diabetes mellitus type 2 uncontrolled with hyperglycemia ?Due to patient not being compliant with diet therapy. Did continue with long- acting insulin in addition to Accu-Cheks before meals and at bedtime with sliding scale coverage 4. Anemia - Secondary to chronic disorder as well as acute blood loss anemia monitoring H&H and transfuse if patient becomes symptomatic or hemoglobin falls below 7 5. Tobacco dependence - Counseled on cessation, offered nicotine patch for tobacco cravings 6. DVT prophylaxis - On enoxaparin Physical Exam Narrative GENERAL: cooperative HEENT: Atraumatic; EYES; Anicteric, Normal Conjunctiva NECK; supple, normal thyroid, RESPIRATORY: Diminished to auscultation CARDIOVASCULAR: Regular S1 S2, GI: soft, normoactive bowel sounds, colostomy left lower quadrant : No Renal angle tenderness; EXTREMITIES: Surgical dressing in groin MUSCULOSKELETAL: no muscle waisting NEURO: Awake; no lateralizing signs. SKIN: No Rash PSYCH; Flat affect Medical Records Data Medical Nutrition Assessment Dietitian: Malnutrition Criteria Met Start: 09/28/20 11:20 Freq: Status: Active Protocol: Document 09/28/20 11:30 AG (Rec: 09/28/20 11:30 AG Desktop) Nutrition Malnutrition Evidence of Malnutrition Exists Yes Malnutrition (severe): Chronic Evidenced By Suboptimal Energy Intake ( Severe),Weight Loss (Severe) Clinical Problem Chronic Disease or Condition Related Malnutrition Etiology severe malnutrition r/t inadequate energy intake w/ increased nutrient need d/t nonhealing wound Signs/Symptoms as evidenced by estimataed PO intake meeting <75% of estimated nutritional needs x 4 months, unintentional wt loss of 17#/10% x 4 months Status Active Problem Recommendation Dietitian Recommendations/Changes consistent carbohydrate diet, Curtis BID, and Glucerna 120mL 4x/day when PO diet is medically indicated. Weight / BMI Weight Weight: 66.7 kg Body Mass Index (BMI) 22.4 ABG / Lab / Microbiology Data Result Diagrams: 10/03/20 05:45 10/03/20 05:45 Laboratory: Laboratory Results - last 24 hr 10/02/20 05:10: Iron 51 L, TIBC 106 L, Iron Saturation 48.1 10/02/20 13:32: POC Glucose 187 H 10/02/20 16:08: POC Glucose 151 H 10/02/20 21:46: POC Glucose 224 H 10/03/20 05:45: WBC 8.9, RBC 3.24 L, Hgb 8.7 L, Hct 28.0 L, MCV 86.4, MCH 26.9 L , MCHC 31.1 L, RDW Std Deviation 47.1 H, RDW Coeff of Dana 15.0 H, Plt Count 351, MPV 8.6, Immature Gran % (Auto) 0.700, Neut % (Auto) 64.4, Lymph % (Auto) 26.2, [place] % (Auto) 6.4, Eos % (Auto) 1.6, Baso % (Auto) 0.7, Absolute Neuts (auto) 5.7, Absolute Lymphs (auto) 2.32, Nucleated RBC % 0 10/03/20 05:45: Sodium 142, Potassium 3.7, Chloride 109 H, Carbon Dioxide 28.0, Anion Gap 5, BUN 4 L, Creatinine 0.89, Estim Creat Clear Calc 86.39, Est GFR (MDRD) Af Amer 113, Est GFR (MDRD) Non-Af 94, BUN/Creatinine Ratio 4.5 L, Glucose 127 H, Calcium 8.6, Total Bilirubin 0.20, AST 13 L, ALT 13 L, Alkaline Phosphatase 66, Total Protein 6.8, Albumin 2.1 L, Globulin 4.7 H, Albumin/Globulin Ratio 0.4 L 10/03/20 06:35: POC Glucose 122 H 10/03/20 08:28: Vancomycin Trough 15.9 H Microbiology: Microbiology 09/29/20 14:00 Tissue - Sacral Gram Stain - Final 09/29/20 14:00 Tissue - Sacral Wound Culture - Final Streptococcus constellatus pha Corynebacterium striatum 09/29/20 14:00 Tissue - Sacral Anaerobic Culture - Preliminary Checking for anaerobes, further studies to follow. 09/27/20 21:15 Blood Culture (Wb) - Anticubital Right Blood Culture - Final No growth in 5 days. 09/27/20 20:00 Blood Culture (Wb) - Anticubital Left Blood Culture - Final No growth in 5 days. 09/29/20 08:15 Mucosa - Nose SARS-CoV-2 Antigen (Rapid) - Final D/C Instructions Discharge Diet: 1800 Calorie Control Diet Discharge Activity: Return to Normal Activity Call your doctor if you observe: Fever of 101 or Higher, Shortness of breath, Fainting spells and Chest pain Meaningful Use Info Meaningful Use Diagnoses (Choose all that apply): None applicable Discharge Plan Admission Admit Date/Time: 09/27/20 23:21 Primary Reason for Your Visit: Gluteal abscess, hidradenitis Attending Provider: Wai Cavazos Primary Care Provider: Adina Bhat NP Consulting Providers: Barney Osorio ; Mariano Palmer ; Cortez Smith Discharge Orders/Prescriptions Prescriptions: New acetaminophen [Tylenol] 325 mg Tablet 650 mg PO Q6H PRN PRN (Reason: Pain Score 1-10/Temp > 100.7 F) Qty: 0 RF: 0 albuterol sulfate 2.5 mg /3 mL (0.083 %) Solution For Nebulization 2.5 mg inhalation Q2H PRN PRN (Reason: Shortness of Breath/Wheezing) Qty: 0 RF: 0 ascorbic acid (vitamin C) 500 mg Tablet 500 mg PO BIDCM Qty: 0 RF: 0 amlodipine 10 mg Tablet 10 mg PO DAILY Qty: 0 RF: 0 docusate sodium [DOK] 100 mg Capsule 100 mg PO BID PRN PRN (Reason: constipation) Qty: 0 RF: 0 ferrous sulfate [FeroSul] 325 mg (65 mg iron) Tablet 325 mg PO 1200,1700 Qty: 0 RF: 0 insulin lispro [Humalog KwikPen Insulin] 100 unit/mL Insulin Pen See Protocol unit subcut ACHS Qty: 0 RF: 0 Lantus Solostar U-100 Insulin 100 unit/mL (3 mL) Insulin Pen 5 units subcut QHS Qty: 0 RF: 0 melatonin 3 mg Tablet 3 mg PO QHS PRN PRN (Reason: Insomnia) Qty: 0 RF: 0 lisinopril 40 mg Tablet 40 mg PO DAILY Qty: 0 RF: 0 polyethylene glycol 3350 17 gram Powder In Packet 17 g PO DAILY PRN (Reason: Constipation) Qty: 0 RF: 0 nicotine 21 mg/24 hr Patch 24 Hour 21 mg transdermal DAILY Qty: 0 RF: 0 oxycodone 5 mg Tablet 10 mg PO Q4H PRN PRN (Reason: Pain Score 4-5) 3 Days Qty: 12 RF: 0 sennosides-docusate sodium [Stool Softener-Stimulant Laxat] 8.6-50 mg Tablet 2 tab PO BID Qty: 0 RF: 0 doxycycline hyclate 100 mg capsule 100 mg PO BID Qty: 14 RF: 0 Continued cefdinir 300 mg capsule 300 mg PO Q12H 21 Days Qty: 42 RF: 1 Discontinued tramadol 50 mg tablet 50 mg PO Q6H PRN (Reason: wound pain) 30 Days Qty: 120 RF: 5 Referrals / Follow Up: Adina Bhat NP, ACCREDITED LEGAL SECRETARY-C [Primary Care Provider] - Disposition Disposition (needs filled in before D/C Order can be placed): Intermediate Facility Charges/Coding Visit Charges Inpatient E&M: 33625 Disch Hosp
--- NOTE | 2020-10-03 10:25 | TREXTCAR_ITS ---
Diet 10/02/20 00:46 Diet: Regular - General Is pt able to select menu?: Yes Wound(s) left medial thigh and left buttock: Wound Type: Surgical Incision L groin: Wound Type: Open Surgical Wound Dressing Change: AntiMicrobial (Aquacel AG, etc) left posterior thigh and left buttock: Wound Type: Open Surgical Wound left buttock/left posterior thigh/left groin: Wound Type: Open Surgical Wound Dressing Change: Dakins moistened gauze abd: Wound Type: Surgical Incision left abd: Wound Type: colostomy Therapies Physical Therapy: Eval and Treat Occupational Therapy: Eval and Treat Problem/Diagnosis (1) Abscess of left thigh: Status: Acute (2) Failure of outpatient treatment: Status: Acute Allergies/Procedures Done in Hospital Allergies Penicillins Allergy (Verified 09/27/20 19:04) Unknown Sulfa (Sulfonamide Antibiotics) Allergy (Verified 09/27/20 19:04) Unknown bupropion [From Wellbutrin] Adverse Reaction (Severe, Verified 09/27/20 19:04) change in personality ,meanness and smoked more Type of Care/Length of Stay Estimated LOS: Convalescent Care Less Than 30 days Type of Care Needed: Skilled Rehab Potential: Good Prognosis: Good Additional Orders/Day of Discharge Day of Discharge: 10/03/20 Dietary and Speech Recommendations Dietitian Recommendations/Changes: consistent carbohydrate diet, Curtis BID, and Glucerna 120mL 4x/day when PO diet is medically indicated. Follow Up Care Please Follow Up With: fatoumata Please Follow Up With: Mariano Palmer MD Please Follow Up With: Barney Osorio MD Please Follow Up With: wound care Discharge Plan Admission Admit Date/Time: 09/27/20 23:21 Primary Reason for Your Visit: Gluteal abscess, hidradenitis Attending Provider: Wai Cavazos Primary Care Provider: Adina Bhat NP Consulting Providers: Barney Osorio ; Mariano Palmer ; Cortze Smith Discharge Orders/Prescriptions Prescriptions: New acetaminophen [Tylenol] 325 mg Tablet 650 mg PO Q6H PRN PRN (Reason: Pain Score 1-10/Temp > 100.7 F) Qty: 0 RF: 0 albuterol sulfate 2.5 mg /3 mL (0.083 %) Solution For Nebulization 2.5 mg inhalation Q2H PRN PRN (Reason: Shortness of Breath/Wheezing) Qty: 0 RF: 0 ascorbic acid (vitamin C) 500 mg Tablet 500 mg PO BIDCM Qty: 0 RF: 0 amlodipine 10 mg Tablet 10 mg PO DAILY Qty: 0 RF: 0 docusate sodium [DOK] 100 mg Capsule 100 mg PO BID PRN PRN (Reason: constipation) Qty: 0 RF: 0 ferrous sulfate [FeroSul] 325 mg (65 mg iron) Tablet 325 mg PO 1200,1700 Qty: 0 RF: 0 insulin lispro [Humalog KwikPen Insulin] 100 unit/mL Insulin Pen See Protocol unit subcut ACHS Qty: 0 RF: 0 Lantus Solostar U-100 Insulin 100 unit/mL (3 mL) Insulin Pen 5 units subcut QHS Qty: 0 RF: 0 melatonin 3 mg Tablet 3 mg PO QHS PRN PRN (Reason: Insomnia) Qty: 0 RF: 0 lisinopril 40 mg Tablet 40 mg PO DAILY Qty: 0 RF: 0 polyethylene glycol 3350 17 gram Powder In Packet 17 g PO DAILY PRN (Reason: Constipation) Qty: 0 RF: 0 nicotine 21 mg/24 hr Patch 24 Hour 21 mg transdermal DAILY Qty: 0 RF: 0 oxycodone 5 mg Tablet 10 mg PO Q4H PRN PRN (Reason: Pain Score 4-5) 3 Days Qty: 12 RF: 0 sennosides-docusate sodium [Stool Softener-Stimulant Laxat] 8.6-50 mg Tablet 2 tab PO BID Qty: 0 RF: 0 doxycycline hyclate 100 mg capsule 100 mg PO BID Qty: 14 RF: 0 Continued cefdinir 300 mg capsule 300 mg PO Q12H 21 Days Qty: 42 RF: 1 Discontinued tramadol 50 mg tablet 50 mg PO Q6H PRN (Reason: wound pain) 30 Days Qty: 120 RF: 5 Referrals / Follow Up: Adina Bhat NP, [employer] [Primary Care Provider] - Disposition Disposition (needs filled in before D/C Order can be placed): [facility]
[2020-10-03] MEDS: Insulin Lispro 100 UNIT/ML INSULN.PEN SC (11:38)
--- NOTE | 2020-10-03 11:39 | CASEMGMT ---
Social Work Note MICHAEL received call from Leyda with TCU stating pre-cert has been obtained, pt can discharge to TCU today. MICHAEL updated physician. SW in to speak with pt. SW updated pt on approval to TCU and discharge to TCU today. Pt states understanding. 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
[2020-10-03] MEDS: Ferrous Sulfate 325 MG Tablet PO (11:42)
[2020-10-03 12:11] LABS: Bedside Glucose 245 mg/dL (70-110)
--- NOTE | 2020-10-03 13:15 | PCM.PN.SRG ---
Subjective Subjective Tolerating a diet. Pain controlled with oral medications Objective Data Objective Data Stoma looks viable in has output from it. Vital Signs: Vital Signs Temp Pulse Resp BP Pulse Ox 97.3 F L 93 18 159/60 H 97 10/03/20 08:40 10/03/20 08:40 10/03/20 08:40 10/03/20 08:40 10/03/20 08:40 Oxygen Flow Rate (L/min) 2 Oxygen Delivery Method Room Air Weight: 147 lb 0.773 oz Body Mass Index (BMI) 22.4 Intake & Output: Intake and Output for Last 24 Hours 10/01/20 10/02/20 10/03/20 23:59 23:59 23:59 Intake Total 1380 / 1880 2430 / 2930 915 / 915 Output Total 1350 / 2650 2500 / 2500 75 / 75 Balance 30 / -770 -70 / 430 840 / 840 Medical Nutrition Assessment Dietitian: Malnutrition Criteria Met Start: 09/28/20 11:20 Freq: Status: Active Protocol: Document 09/28/20 11:30 AG (Rec: 09/28/20 11:30 AG Desktop) Nutrition Malnutrition Evidence of Malnutrition Exists Yes Malnutrition (severe): Chronic Evidenced By Suboptimal Energy Intake ( Severe),Weight Loss (Severe) Clinical Problem Chronic Disease or Condition Related Malnutrition Etiology severe malnutrition r/t inadequate energy intake w/ increased nutrient need d/t nonhealing wound Signs/Symptoms as evidenced by estimataed PO intake meeting <75% of estimated nutritional needs x 4 months, unintentional wt loss of 17#/10% x 4 months Status Active Problem Recommendation Dietitian Recommendations/Changes consistent carbohydrate diet, Curtis BID, and Glucerna 120mL 4x/day when PO diet is medically indicated. Lab / Micro Data Result Diagrams: 10/03/20 05:45 10/03/20 05:45 Labs: Laboratory Results - last 24 hr 10/02/20 13:32: POC Glucose 187 H 10/02/20 16:08: POC Glucose 151 H 10/02/20 21:46: POC Glucose 224 H 10/03/20 05:45: WBC 8.9, RBC 3.24 L, Hgb 8.7 L, Hct 28.0 L, MCV 86.4, MCH 26.9 L, MCHC 31.1 L, RDW Std Deviation 47.1 H, RDW Coeff of Dnaa 15.0 H, Plt Count 351, MPV 8.6, Immature Gran % (Auto) 0.700, Neut % (Auto) 64.4, Lymph % (Auto) 26.2, Bollinger % (Auto) 6.4, Eos % (Auto) 1.6, Baso % (Auto) 0.7, Absolute Neuts (auto) 5.7, Absolute Lymphs (auto) 2.32, Nucleated RBC % 0 10/03/20 05:45: Sodium 142, Potassium 3.7, Chloride 109 H, Carbon Dioxide 28.0, Anion Gap 5, BUN 4 L, Creatinine 0.89, Estim Creat Clear Calc 86.39, Est GFR (MDRD) Af Amer 113, Est GFR (MDRD) Non-Af 94, BUN/Creatinine Ratio 4.5 L, Glucose 127 H, Calcium 8.6, Total Bilirubin 0.20, AST 13 L, ALT 13 L, Alkaline Phosphatase 66, Total Protein 6.8, Albumin 2.1 L, Globulin 4.7 H, Albumin/Globulin Ratio 0.4 L 10/03/20 06:35: POC Glucose 122 H 10/03/20 08:28: Vancomycin Trough 15.9 H 10/03/20 11:35: POC Glucose 245 H Micro: Microbiology 09/29/20 14:00 Tissue - Sacral Gram Stain - Final 09/29/20 14:00 Tissue - Sacral Wound Culture - Final Streptococcus constellatus pha Corynebacterium striatum 09/29/20 14:00 Tissue - Sacral Anaerobic Culture - Preliminary Checking for anaerobes, further studies to follow. 09/27/20 21:15 Blood Culture (Wb) - Anticubital Right Blood Culture - Final No growth in 5 days. 09/27/20 20:00 Blood Culture (Wb) - Anticubital Left Blood Culture - Final No growth in 5 days. 09/29/20 08:15 Mucosa - Nose SARS-CoV-2 Antigen (Rapid) - Final Assessment & Plan Assessment/Plan (1) Open wound of left buttock with complication: QUALIFIERS: Encounter type: initial encounter Qualified Code(s): S31.829A - Unspecified open wound of left buttock, initial encounter PLAN: Okay to be transferred to TCU from my standpoint. Follow-up with me in 1 week
[2020-10-03 14:10] VITALS: BP 155/72; PULSE 88; RESP 18; TEMP 36.7; O2SAT 97
--- NOTE | 2020-10-03 14:15 | NURSING ---
REPORT CALLED TO SOLANGE ISAAC ON TCU
--- NOTE | 2020-10-03 14:45 | PCM.PN.ID ---
Physical Exam Narrative Feeling ok, some abd soreness, no fever Const alert General Appearance: cooperative Resp normal air movement and clear to auscultation bilaterally Cardio regular rate and regular rhythm GI normal to inspection, nondistended, normoactive bowel sounds Skin Skin Narrative: reviewed photos ID ID: Route of nutrition/ use of supplements: [] Nutritional Intake: [] IV Site: [] Murillo Catheter: [] Assessment & Plan Assessment/Plan (1) Abscess of left thigh: PLAN: Surgery 09/[address] Smith. On vanc/ceftriaxone/flagyl. Had no issue with omnicef as an outpt. Encouraged him to get covid vaccine. With extent and location of the wound, high concern for contamination with any bowel movement, ostomy placed by Dr. Osorio 10/01. Ok for tcu on one week doxy/omnicef/flagyl. Will follow as needed, d/w Dr. Cavazos
== END 2020-10-03 14:55 | disposition skilled nursing facility (03) | DRG 570 ==
LOC: ED 22:57 → MS3 23:23
PROVIDERS: Anesthesiology; Internal Medicine; Nurse Practitioner Family; Surgery; Admitting Provider Hospitalist; Emergency Provider Emergency Medicine; PCP Nurse Practitioner; Visit Provider Internal Medicine
PROC: 0JBB0ZZ Excision of Perineum Subcutaneous Tissue and Fascia, Open Approach (ICD-10-PCS; principal; 2020-09-29 13:40)
PROC: 0D1E4Z4 Bypass Large Intestine to Cutaneous, Percutaneous Endoscopic Approach (ICD-10-PCS; CPT 44188; principal; 2020-10-01 09:00)
DX: L02.416 Cutaneous abscess of left lower limb (principal); E43 Unspecified severe protein-calorie malnutrition; L02.31 Cutaneous abscess of buttock; D62 Acute posthemorrhagic anemia; J44.0 Chronic obstructive pulmonary disease with (acute) lower respiratory infection; L02.215 Cutaneous abscess of perineum; L73.2 Hidradenitis suppurativa; I10 Essential (primary) hypertension; E11.65 Type 2 diabetes mellitus with hyperglycemia; D63.8 Anemia in other chronic diseases classified elsewhere; F17.210 Nicotine dependence, cigarettes, uncomplicated; I25.10 Atherosclerotic heart disease of native coronary artery without angina pectoris; B95.4 Other streptococcus as the cause of diseases classified elsewhere; B96.89 Other specified bacterial agents as the cause of diseases classified elsewhere; G47.30 Sleep apnea, unspecified; E11.622 Type 2 diabetes mellitus with other skin ulcer; L98.492 Non-pressure chronic ulcer of skin of other sites with fat layer exposed; E78.5 Hyperlipidemia, unspecified; I25.2 Old myocardial infarction; Z91.11 Patient's noncompliance with dietary regimen; Z68.22 Body mass index [BMI] 22.0-22.9, adult; Z95.1 Presence of aortocoronary bypass graft; Z46.89 Encounter for fitting and adjustment of other specified devices
CPT/HCPCS: 36415; 71045; 73701; 80048; 80053; 80202; 82962; 83540; 83550; 83605; 84134; 85025; 85610; 85730; 87040; 87070; 87075; 87077; 87176; 87186; 87205; 87426; 88304; 88305; 93005; 97110; 97162; 97166; 97530; 97535; 97802; 99251; 99285; 99406; J7030; J7050; J7120; Q9967; A4216; C1760; G0463; J0696; J2405; J3490

== ENCOUNTER 2020-10-03 15:05 | Inpatient (IN) | payer OTHER, SELFPAY ==
[2020-10-03 15:27] VITALS: BP 174/69; PULSE 92; RESP 18; TEMP 36.2; O2SAT 98; BMI 22.8
[2020-10-03 16:56] LABS: Bedside Glucose 305 mg/dL (70-110)
[2020-10-03] MEDS: oxyCODONE 5 MG Tablet 10 MG PO ×3 (17:14→22:23)
[2020-10-03] MEDS: Doxycycline 100 MG CAPSULE PO (18:18)
[2020-10-03] MEDS: Cefdinir 300 MG Capsule PO (18:18)
[2020-10-03] MEDS: Ascorbic Acid 500 MG Tablet PO (18:19)
[2020-10-03] MEDS: Senna Tablet 2 TABLET PO (18:19)
[2020-10-03] MEDS: Ferrous Sulfate 325 MG Tablet PO (18:20)
[2020-10-03 18:25] LABS: Bedside Glucose 232 mg/dL (70-110)
[2020-10-03] MEDS: Acetaminophen 325 MG Tablet 650 MG PO (18:29)
--- NOTE | 2020-10-03 19:43 | HP.PCM_ITS ---
HPI - General General Date of Admission: 10/03/20 HPI Narrative 09/27/2020 SVEN DUONG, is a 55 Male who presents to [facility] Emergency Department. Cellulitis of left buttock, left thigh, on Doxycycline, Cefdinir. Pancultured, Vancomycin given. CT left hip, left groin showed multiple abscesses. 09/27/2020 Admit to hospital. Continue Vancomycin IV left buttock cellulitis. Tylenol, Oxycodone, Morphine for pain. Consult Dr. Smith. 09/28/2020 Perineal pain. Levaquin, Vancomycin, Flagyl, consult Infectious disease for left buttock cellulitis. 09/29/2020 Dr. Palmer changed antibiotics to Vancomycin, Ceftriaxone, Flagyl pending cultures. 09/29/2020 Dr. Smith performed surgical preparation left perineal area, left posterior thigh with incision, drainage, excisional debridement of hydradenitis abscess. 09/30/2020 Increase Dilaudid, Oxycodone for pain control. Continue Vancomycin, Ceftriaxone, Flagyl. 09/30/2020 Dr. Palmer recommended diverting colostomy. 10/01/2020 Dr. Osorio performed laparoscopic sigmoid colostomy. 10/03/2020 Dr. Palmer recommended 1 week of Doxycycline, Cefdinir, Flagyl. 10/03/2020 Admit to TCU with debility, here for rehabilitation, strengthening, wound care, prior to discharge home with . [facility] Medical History (Updated 10/03/20 @ 19:[address] Yogesh Daniel MD) Abscess of buttock, left Abscess of left thigh Acute blood loss anemia Anemia Anemia of chronic disease Back pain due to injury Colostomy in place Complicated open wound of left thigh COPD (chronic obstructive pulmonary disease) Coronary artery disease Current use of insulin Diabetes Diabetes mellitus type 2, uncontrolled, with complications Diabetes type 2, uncontrolled Heart disease Hidradenitis suppurativa of anus History of stress test Hydradenitis Hydradenitis Hyperlipidemia associated with type 2 diabetes mellitus Hypertension Malnutrition Myocardial infarct Open wound of left buttock with complication Pain in the groin Skin ulcer of scrotum Sleep apnea Smoker Ulcer of left groin with fat layer exposed Ulcer of perineum with fat layer exposed Home Medications cefdinir 300 mg capsule 300 mg PO Q12H 21 Days #42 cap 09/09/20 [Rx Last Taken 09/27/20 09:00] acetaminophen [Tylenol] 650 mg PO Q6H PRN PRN #0 tab 10/03/20 [Rx Last Taken Unknown] albuterol sulfate 2.5 mg INHALATION Q2H PRN PRN #0 ml 10/03/20 [Rx Last Taken Unknown] amlodipine 10 mg PO DAILY #0 tab 10/03/20 [Rx Last Taken Unknown] ascorbic acid (vitamin C) 500 mg PO BIDCM #0 tab 10/03/20 [Rx Last Taken Unknown] docusate sodium [DOK] 100 mg PO BID PRN PRN #0 cap 10/03/20 [Rx Last Taken Unknown] doxycycline hyclate 100 mg PO BID #14 cap 10/03/20 [Rx Last Taken Unknown] ferrous sulfate [FeroSul] 325 mg PO 1200,1700 #0 tab 10/03/20 [Rx Last Taken Unknown] insulin glargine [Lantus Solostar U-100 Insulin] 5 units SUBCUT QHS #0 ml 10/03/20 [Rx Last Taken Unknown] insulin lispro [Humalog KwikPen Insulin] See Protocol SUBCUT ACHS #0 ml 10/03/20 [Rx Last Taken Unknown] lisinopril 40 mg PO DAILY #0 tab 10/03/20 [Rx Last Taken Unknown] melatonin 3 mg PO QHS PRN PRN #0 tab 10/03/20 [Rx Last Taken Unknown] metronidazole [Flagyl] 500 mg PO TID #20 tab 10/03/20 [Rx Last Taken Unknown] nicotine 21 mg TRANSDERMAL DAILY #0 ea 10/03/20 [Rx Last Taken Unknown] oxycodone 10 mg PO Q4H PRN PRN 3 Days #12 tab 10/03/20 [Rx Last Taken Unknown] polyethylene glycol 3350 17 g PO DAILY PRN #0 ea 10/03/20 [Rx Last Taken Unknown] sennosides-docusate sodium [Stool Softener-Stimulant Laxat] 2 tab PO BID #0 tab 10/03/20 [Rx Last Taken Unknown] Allergy/AdvReac Type Severity Reaction Status Date / Time Penicillins Allergy Unknown Verified 09/27/20 19:04 Sulfa (Sulfonamide Allergy Unknown Verified 09/27/20 19:04 Antibiotics) bupropion [From Wellbutrin] AdvReac Severe change in Verified 09/27/20 19:04 personality ,meanness and smoked more Family History Aunt Lung disease lung cancer Father Heart disease Hypertension Family history of high cholesterol Diabetes Mother Diabetes Daughter Epilepsy Surgical History (Updated 10/03/20 @ 19:[address] Yogesh Daniel MD) History of coronary artery stent placement History of incision and drainage History of removal of cyst History of tonsillectomy and adenoidectomy Hx of CABG Hx of hernia repair Stented coronary artery Social History (Updated 10/03/20 @ 19:[address] Yogesh Daniel MD) household members: spouse Smoking Status: Current every day smoker tobacco type: cigarettes alcohol intake: never substance use type: does not use additional social history: DOES NOT TAKE ASPIRIN DOES NOT TAKE IBUPROFEN ROS Constitutional Constitutional: Denies chills, fever(s) or weight gain ENT HEENT: Denies headache(s), nasal congestion or nasal discharge Cardiovascular Cardiovascular: Denies chest pain or palpitations Respiratory/Chest Respiratory/Chest: Denies cough, excessive phlegm production or shortness of breath with exertion Gastrointestinal Gastrointestinal: Denies abdominal pain, nausea or vomiting Genitourinary Genitourinary: Denies dysuria Musculoskeletal Musculoskeletal: Denies joint pain or joint swelling Integumentary Integumentary: Reports wounds; Denies rash Neurologic Neurologic: Denies focal weakness, numbness or tingling Psychiatric Psychiatric: Reports auditory hallucinations; Denies anxiety, depression, homicidal ideation or suicidal ideation Vital Signs Vital Signs Vital Signs: 10/03/20 15:27 Temperature 97.2 F L Temperature Source Temporal Pulse Rate 92 Respiratory Rate 18 Respiratory Effort Normal Non-Labored Blood Pressure 174/69 H Blood Pressure Mean 104 Blood Pressure Source Monitor Blood Pressure Position Supine Blood Pressure Location Left Arm Pulse Ox 98 Oxygen Delivery Method Room Air Weight Weight: 68.039 kg Body Mass Index (BMI) 22.8 Physical Exam Const alert and oriented x3 General Appearance: cooperative HEENT normocephalic Eyes PERRL and EOMs intact bilaterally Neck supple, no JVD and no carotid bruits Resp normal respiratory effort, normal air movement and clear to auscultation bilaterally Cardio regular rate and regular rhythm GI normal to inspection, nondistended, normoactive bowel sounds, non-tender and non-distended GI Narrative: Colostomy in place. Extremity normal capillary refill General Extremity: Negative for edema Skin no rashes or lesions noted Skin Narrative: Left buttock, left thigh wound per wound nurse. General Skin Exam: no breakdown Psych affect normal Appearance: appropriate Results Lab / Micro Data Labs: Laboratory Results - last 24 hr 10/03/20 16:36: POC Glucose 305 H 10/03/20 18:20: POC Glucose 232 H Assessment & Plan Assessment/Plan (1) Debility: (2) Hydradenitis: (3) Hidradenitis suppurativa of anus: (4) Abscess of buttock, left: (5) Abscess of left thigh: (6) Open wound of left buttock with complication: QUALIFIERS: Encounter type: initial encounter Qualified Code(s): S31.829A - Unspecified open wound of left buttock, initial encounter (7) Complicated open wound of left thigh: (8) Hypertension: (9) Diabetes type 2, uncontrolled: (10) Chronic obstructive pulmonary disease: (11) Diabetes mellitus: (12) Coronary artery disease: (13) Hyperlipidemia: PLAN: 55 year old male with below past medical history significant for hydradenitis suppurativa, hospitalized for left buttock cellulitis/abscess, underwent incision & drainage 09/29/[address] Smith, the diverting colostomy 10/01/[address] Osorio, admitted to TCU with debility, here for rehabilitation, strengthening, wound care, prior to discharge home with . * Debility - PT/OT. * Pain - Tylenol 1000mg Q6H prn pain (1-3), Oxycodone 10mg Q4H prn pain (4-10). * Bowel - Miralax 17gm daily, Senna/colace 2 tablets twice daily, Dulcolax 10MG daily PRN. * Adult immunization - Administer Pneumovax 23, flushot, covid19 vaccine as appropriate. * DVT prophylaxis - Lovenox 40mg sc daily. * COPD - Albuterol 2.5MG Q2H PRN. * Hypertension - Lisinopril 40MG daily, Amlodipine 10mg daily. * Vitamin C deficiency - Vitamin C 500mg twice daily. * Left buttock abscess status post debridement - Cefdinir 300mg Q12H, Doxycycline 100mg twice daily, Flagyl 500mg tid thru 10/10/2020. Dakins daily, wound nurse consult. * Iron deficiency anemia - Iron sulfate 325mg twice daily. * Diabetes Mellitus II - Lantus 5 units QHS. * Insomnia - Melatonin 3mg QHS PRN. * Tobacco abuse - Nicotine patch 21mg 1 patch daily.
[2020-10-03 21:20] LABS: Bedside Glucose 183 mg/dL (70-110)
[2020-10-03] MEDS: Ondansetron ODT 4 MG Tablet PO (22:22)
[2020-10-03] MEDS: metroNIDAZOLE 500 MG Tablet PO (22:23)
[2020-10-04 05:00] VITALS: BP 182/77; PULSE 81
[2020-10-04 05:55] LABS: Absolute Lymphocyte Count 1.66 X10^3/uL (0.83-4.51); Absolute Neutrophil Count 6.9 X10^3/uL (2.0-7.7); Basophil# 0.03 X10^3/uL; Basophil% 0.3 % (0-1); Eosinophil# 0.15 X10^3/uL; Eosinophils% 1.6 % (0-5); Hematocrit 27.5 % (40-54); Hemoglobin 8.6 g/dL (13.0-16.5); Lymphocyte # 1.66 X10^3/ul (0.83-4.51); Lymphocyte % 17.6 % (19-41); Mean Corp Hgb Conc 31.3 g/dL (32-36); Mean Corpuscular Hgb 26.7 pg (27.0-32.0); Mean Corpuscular Volume 85.4 fL (80-94); Mean Platelet Vol. 8.4 fl (6.2-12.0); Monocyte# 0.65 X10^3/uL; Monocyte% 6.9 % (0-10); NRBC Flagged by Analyzer 0 % (0-5); Platelet Count 329 K/mm3 (150-450); RBC Distribution Width SD 45.9 fl (35.1-43.9); Red Blood Count 3.22 M/mm3 (4.6-6.2); White Blood Count 9.5 K/mm3 (4.4-11.0)
[2020-10-04] MEDS: Ondansetron ODT 4 MG Tablet PO (05:57)
[2020-10-04] MEDS: Doxycycline 100 MG CAPSULE PO ×2 (05:58→17:34)
[2020-10-04] MEDS: oxyCODONE 5 MG Tablet 10 MG PO (05:58)
[2020-10-04] MEDS: metroNIDAZOLE 500 MG Tablet PO ×3 (05:59→22:30)
[2020-10-04] MEDS: amLODIPine 10 MG Tablet PO (06:00)
[2020-10-04] MEDS: Cefdinir 300 MG Capsule PO ×2 (06:00→17:33)
[2020-10-04] MEDS: Senna Tablet 2 TABLET PO ×2 (06:01→17:33)
[2020-10-04] MEDS: Lisinopril 40 MG Tablet PO (06:01)
[2020-10-04] MEDS: Enoxaparin 40 MG/0.4 ML Syringe SC (06:03)
[2020-10-04] MEDS: Polyethylene Glycol 3350 17 GM PACKET PO (06:03)
[2020-10-04 06:21] LABS: Anion Gap 5 (5-15); BUN 4 mg/dL (7-18); BUN/Creat Ratio 4.5 RATIO (10-20); Calcium,Total 8.7 mg/dL (8.5-10.1); Chloride 106 mmol/L (98-107); Creatinine, Serum 0.88 mg/dL (0.70-1.30); EST Glomerular Filtration Rate 95 mL/min (>60); Est Glom Filt Rate - Afr Amer 115 mL/min (>60); Estimated Creatinine Clearance 89.13 ml/min; Glucose 155 mg/dL (74-106); Potassium 3.7 mmol/L (3.5-5.1); Sodium Level 138 mmol/L (136-145)
[2020-10-04] MEDS: Ascorbic Acid 500 MG Tablet PO ×2 (08:43→17:33)
[2020-10-04 08:46] VITALS: BP 177/79; PULSE 79
[2020-10-04] MEDS: HYDROmorphone 2 MG TABLET PO ×4 (09:05→22:38)
[2020-10-04] MEDS: Iron Polysaccharide Complex 150 MG CAPSULE PO ×2 (09:06→22:29)
[2020-10-04 10:56] LABS: Bedside Glucose 209 mg/dL (70-110)
[2020-10-04 11:26] LABS: Bedside Glucose 158 mg/dL (70-110)
[2020-10-04] MEDS: Tuberculin,Purif.prot.deriv. 50 TU/ML Vial 0.1 ML ID (12:16)
--- NOTE | 2020-10-04 12:18 | NURSING ---
Pt had order for Ferrous BID and Ferrex Daily Clarified order with Dr. Daniel New order to stop Ferrous and change Ferrex BID.
[2020-10-04 13:25] VITALS: BP 140/73; PULSE 107; RESP 18; TEMP 36.9; O2SAT 95
--- NOTE | 2020-10-04 14:12 | NURSING ---
wound photo: left buttock/posterior thigh
--- NOTE | 2020-10-04 14:12 | NURSING ---
wound photo: left groin
[2020-10-04] MEDS: Glucerna Shake 120 ML LIQUID PO ×3 (14:27→22:30)
[2020-10-04] MEDS: DAKIN'S SOL HALF STRENGTH (=0.25%) 1 APPLIC TOPICAL (14:28)
[2020-10-04] MEDS: 0.9% Saline Lock 10 ML Syringe IV (14:29)
[2020-10-04 14:44] VITALS: PULSE 80; RESP 16; O2SAT 98
--- NOTE | 2020-10-04 14:58 | PHA.CONS_ITS ---
Progress Note - Pharmacy Subjective: TCU Admission Objective: Allergies Penicillins Allergy (Verified 09/27/20 19:04) Unknown Sulfa (Sulfonamide Antibiotics) Allergy (Verified 09/27/20 19:04) Unknown bupropion [From Wellbutrin] Adverse Reaction (Severe, Verified 09/27/20 19:04) change in personality ,meanness and smoked more Current Medications Generic Name Dose Route Start Last Admin Trade Name Freq PRN Reason Stop Dose Admin Acetaminophen 1,000 mg 10/03/20 20:08 Acetaminophen 500 Mg Tablet PO Q6H PRN PRN Pain Score 1-3 Albuterol Sulfate 2.5 mg 10/03/20 16:29 Albuterol 2.5 Mg/3 Ml Vial.Neb. INHALATION Q2H PRN PRN WHEEZING Amlodipine Besylate 10 mg 10/04/20 06:00 10/04/20 06:00 Amlodipine 10 Mg Tablet PO 10 mg DAILY MAE Administration Ascorbic Acid 500 mg 10/03/20 17:00 10/04/20 08:43 Ascorbic Acid 500 Mg Tablet PO 500 mg BIDCM MAE Administration Cefdinir 300 mg 10/03/20 18:00 10/04/20 06:00 Cefdinir 300 Mg Capsule PO 10/10/20 06:01 300 mg Q12 MAE Administration Doxycycline Monohydrate 100 mg 10/03/20 18:00 10/04/20 05:58 Doxycycline 100 Mg Capsule PO 10/10/20 06:01 100 mg BID MAE Administration Hydromorphone HCl 2 mg 10/04/20 07:44 10/04/20 12:15 Hydromorphone 2 Mg Tablet PO 2 mg Q3H PRN PRN Administration Pain Score 6-10 Insulin Glargine 5 units 10/04/20 22:00 Insulin Glargine 100 Units/Ml Pen SC DAILY [facility] L-Arginine/L-Glutamine/Calcium HMB 1 packet 10/04/20 17:00 Curtis (Unflavored) Packet PO BIDCM [facility] Lisinopril 40 mg 10/04/20 06:00 10/04/20 06:01 Lisinopril 40 Mg Tablet PO 40 mg DAILY MAE Administration Melatonin 3 mg 10/03/20 16:43 Melatonin 3 Mg Tablet PO QHS PRN INSOMNIA Metronidazole 500 mg 10/03/20 22:00 10/04/20 14:27 Metronidazole 500 Mg Tablet PO 10/10/20 06:01 500 mg TID MAE Administration Nicotine 21 mg 10/04/20 06:00 10/04/20 05:59 Nicotine 21 Mg Patch TD 21 mg DAILY MAE Administration Nutritional Formula (Lactose Free) 120 ml 10/04/20 17:00 10/04/20 14:27 Glucerna Shake 120 Ml Liquid PO 120 ml 4X/DAY MAE Administration Ondansetron HCl 4 mg 10/03/20 20:13 10/04/20 05:57 Ondansetron Odt 4 Mg Tablet PO 4 mg Q6H PRN PRN Administration NAUSEA Oxycodone HCl 10 mg 10/04/20 07:45 Oxycodone 5 Mg Tablet PO Q4H PRN PRN Pain Score 1-5 Polyethylene Glycol 17 gm 10/04/20 06:00 10/04/20 06:03 Polyethylene Glycol 3350 17 Gm Packet PO 17 gm DAILY MAE Administration Polysaccharide Iron Complex 150 mg 10/04/20 22:00 Iron Polysaccharide Complex 150 Mg Capsule PO BID@1000,2200 MAE Senna 2 tablet 10/03/20 18:00 10/04/20 06:01 Senna Tablet PO 2 tablet BID MAE Administration Sodium Chloride 10 - 40 ml 10/03/20 17:55 10/04/20 14:29 0.9% Saline Lock 10 Ml Syringe IV 10 ml UD PRN Administration SALINE FLUSH Sodium Hypochlorite 1 applic 10/04/20 06:00 10/04/20 14:28 Dakin's Selena Half Strength (=0.25%) TOPICAL 1 applic DAILY MAE Administration Protocol Tuberculin PPD 0.1 ml 10/11/20 10:00 Tuberculin,Purif.Prot.Deriv. 50 Tu/Ml Vial ID 10/11/20 10:01 X1 ONE Problem List (Last Updated 10/03/20 @ 19:[address] Yogesh Daniel MD) Hyperlipidemia (Acute) Coronary artery disease (Acute) Diabetes mellitus (Acute) Chronic obstructive pulmonary disease (Chronic) Debility (Acute) Complicated open wound of left thigh (Acute) Open wound of left buttock with complication (Acute) Abscess of buttock, left (Acute) Abscess of left thigh (Acute) Hypertension (Chronic) Diabetes type 2, uncontrolled (Chronic) Hidradenitis suppurativa of anus (Chronic) Hydradenitis (Chronic) Vital Signs Temp Pulse Resp BP Pulse Ox 98.5 F 107 H 18 140/73 H 95 10/04/20 13:25 10/04/20 13:25 10/04/20 13:25 10/04/20 13:25 10/04/20 13:25 Oxygen Delivery Method Room Air Weight: 68.577 kg Body Mass Index (BMI) 22.8 Sodium 138 mmol/L (136-145) 10/04/20 05:40 Potassium 3.7 mmol/L (3.5-5.1) 10/04/20 05:40 Chloride 106 mmol/L (98-107) 10/04/20 05:40 Carbon Dioxide 27.0 mmol/L (21.0-32.0) 10/04/20 05:40 Anion Gap 5 (5-15) 10/04/20 05:40 BUN 4 mg/dL (7-18) L 10/04/20 05:40 Creatinine 0.88 mg/dL (0.70-1.30) 10/04/20 05:40 Est GFR (MDRD) Af Amer 115 mL/min (>60) 10/04/20 05:40 Est GFR (MDRD) Non-Af 95 mL/min (>60) 10/04/20 05:40 BUN/Creatinine Ratio 4.5 RATIO (10-20) L 10/04/20 05:40 Glucose 155 mg/dL (74-106) H 10/04/20 05:40 Assessment/Plan: 1. Pain: acetaminophen 1000mg PO Q6H PRN pain 1-3, oxycodone 10mg PO Q4H PRN pain 1-5 and hydromorphone 2mg PO Q3H PRN pain 6-10. Please continue to monitor for S/S of increased pain, PRN usage, constipation and respiratory depression. 2. Left buttock abscess s/p debridement: cefdinir 300mg PO Q12H thru 10/10/20, doxycycline 100mg PO BID thru 10/10/20 and metronidazole 500mg PO TID thru 10/10/20. Please continue to monitor for S/S of infection, diarrhea, renal function, stool discoloration, and metallic taste. 3. Hypertension: lisinopril 40mg PO daily and amlodipine 10mg PO daily. Please continue to monitor BP (last 140/73), potassium (last 3.7mmol/L), cough, swelling and renal function. 4. COPD: albuterol nebulized solution 2.5mg inhalation Q2H PRN wheezing. Please continue to monitor for wheezing and PRN usage. 5. Iron deficiency anemia: Ferrex 150mg PO BID. Please continue to monitor hemoglobin (last 8.6g/dL), constipation and dark stools. 6. Diabetes mellitus II: insulin glargine 5units SC QHS. Please continue to monitor for S/S of hypoglycemia, hemoglobin A1c (last 7.8% 07/18/20) and blood glucose (last 155mg/dL). 7. Insomnia: melatonin 3mg PO QHS PRN insomnia. Please continue to monitor for excessive drowsiness and PRN usage. 8. Tobacco abuse: nicotine patch 21mg 1patch TD daily. Please continue to monitor for nicotine cravings, skin irritation and vivid dreams. 9. Nausea: ondansetron 4mg PO Q6H PRN nausea. Please continue to monitor for nausea and PRN usage. 10. Vitamin C deficiency: ascorbic acid 500mg PO BIDCM. Please continue to monitor. Psychotropic Medications: None Unnecessary Medications: None Bowel Regimen: Miralax 17gm PO daily and senna 2T PO BID. Please continue to monitor for S/S of constipation. Date of Note:: 10/04/20
--- NOTE | 2020-10-04 16:03 | CASEMGMT ---
Social Work Met with pt for initial assessment. MICHAEL discussed code status with pt and assisted with completing MOLST form. Pt wishes for full code with intubation. Nursing and physician notified of MOLST and form placed in the chart. SW spoke with pt about insurance with next review date on 10/10/20 and that pt is responsible for calling insurance about copay amount. Per pt request, VM left with pt about insurance as well. Pt had been assisting pt with are needs and dressing changes prior to admission and pt plans to return home at time of discharge. SW to follow. DAV Baptiste
[2020-10-04 16:21] LABS: Bedside Glucose 274 mg/dL (70-110)
[2020-10-04] MEDS: Juven (unflavored) Packet 1 PACKET PO (17:32)
[2020-10-04 21:31] LABS: Bedside Glucose 216 mg/dL (70-110)
[2020-10-05 06:25] LABS: Bedside Glucose 163 mg/dL (70-110)
[2020-10-05] MEDS: Lisinopril 40 MG Tablet PO (06:33)
[2020-10-05] MEDS: Senna Tablet 2 TABLET PO ×2 (06:33→17:10)
[2020-10-05] MEDS: amLODIPine 10 MG Tablet PO (06:34)
[2020-10-05] MEDS: metroNIDAZOLE 500 MG Tablet PO ×3 (06:34→21:27)
[2020-10-05] MEDS: Cefdinir 300 MG Capsule PO ×2 (06:34→17:10)
[2020-10-05] MEDS: Doxycycline 100 MG CAPSULE PO ×2 (06:34→20:03)
[2020-10-05] MEDS: Polyethylene Glycol 3350 17 GM PACKET PO (07:08)
[2020-10-05] MEDS: Glucerna Shake 120 ML LIQUID PO ×4 (08:36→21:27)
[2020-10-05] MEDS: Juven (unflavored) Packet 1 PACKET PO ×2 (08:37→17:09)
[2020-10-05] MEDS: Ascorbic Acid 500 MG Tablet PO ×2 (08:37→17:09)
[2020-10-05] MEDS: Iron Polysaccharide Complex 150 MG CAPSULE PO ×2 (10:40→21:27)
[2020-10-05] MEDS: HYDROmorphone 2 MG TABLET PO ×3 (10:42→19:58)
--- NOTE | 2020-10-05 10:50 | NURSING ---
Nicotene patch to Lt deltoid. Resident wanting to get up on his own. He states he will talk to therapy about this today. at bedside and shows interest in caring for colostomy when this nurse does care.
[2020-10-05 11:11] LABS: Bedside Glucose 261 mg/dL (70-110)
--- NOTE | 2020-10-05 11:40 | NURSING ---
Dr Smith callled in regards to resident being able to shower. He states resident can shower right before his dressing changes. Will let resident know.
[2020-10-05] MEDS: DAKIN'S SOL HALF STRENGTH (=0.25%) 1 APPLIC TOPICAL (15:06)
[2020-10-05 16:21] LABS: Bedside Glucose 217 mg/dL (70-110)
[2020-10-05 16:32] VITALS: BP 157/89; PULSE 88; RESP 18; TEMP 36.7; O2SAT 96
[2020-10-05] MEDS: 0.9% Saline Lock 10 ML Syringe IV (20:03)
[2020-10-05 20:11] VITALS: PULSE 86; RESP 16; O2SAT 94
[2020-10-05] MEDS: oxyCODONE 5 MG Tablet 10 MG PO (21:32)
[2020-10-05 21:41] LABS: Bedside Glucose 261 mg/dL (70-110)
[2020-10-06] MEDS: HYDROmorphone 2 MG TABLET PO ×5 (04:24→19:45)
[2020-10-06] MEDS: Glucerna Shake 120 ML LIQUID PO ×4 (05:00→20:09)
[2020-10-06] MEDS: DAKIN'S SOL HALF STRENGTH (=0.25%) 1 APPLIC TOPICAL (05:01)
[2020-10-06] MEDS: metroNIDAZOLE 500 MG Tablet PO ×3 (05:06→20:10)
[2020-10-06] MEDS: amLODIPine 10 MG Tablet PO (05:07)
[2020-10-06] MEDS: Lisinopril 40 MG Tablet PO (05:07)
[2020-10-06] MEDS: Cefdinir 300 MG Capsule PO ×2 (05:07→18:33)
[2020-10-06] MEDS: Senna Tablet 2 TABLET PO (05:07)
[2020-10-06] MEDS: Doxycycline 100 MG CAPSULE PO ×2 (05:10→18:33)
[2020-10-06] MEDS: Polyethylene Glycol 3350 17 GM PACKET PO (05:11)
[2020-10-06 05:16] VITALS: BP 147/69; PULSE 86
--- NOTE | 2020-10-06 05:21 | NURSING ---
Patient asking for pain medicine and to have RN to check his dressing. Dilaudid given. Dressings coming off, noted small amount of loose stool from rectum when removing dressings. Helped patient to shower to clean up, helped him back to bed and applied dakins moistened gauze to wound beds, covered w/ DSD and secured with tape. Patient tolerated fairly well, continues to have to pain groin/gluteal area and lower abdomen.
[2020-10-06 05:45] LABS: Hematocrit 29.2 % (40-54); Hemoglobin 9.3 g/dL (13.0-16.5)
[2020-10-06 06:16] LABS: Bedside Glucose 299 mg/dL (70-110)
[2020-10-06] MEDS: Iron Polysaccharide Complex 150 MG CAPSULE PO ×2 (08:08→20:10)
[2020-10-06] MEDS: Ascorbic Acid 500 MG Tablet PO ×2 (08:08→18:33)
[2020-10-06] MEDS: Juven (unflavored) Packet 1 PACKET PO (08:08)
[2020-10-06] MEDS: Acetaminophen 500 MG Tablet 1000 MG PO ×2 (08:09→18:38)
[2020-10-06 13:06] LABS: Bedside Glucose 270 mg/dL (70-110)
--- NOTE | 2020-10-06 14:27 | CASEMGMT ---
Social Work Clinical Statistical Programmer reporting pt making statements of wanting a gun and frustration with pain. SW met with pt in room and introduced self to pt. SW inquired about pt pain level and he states it is a manageable 10/10. SW inquired about pt coping with chronic illness and now new medical issues including wounds and associated pain. Pt stating that he does not believe in all the pills for your head but that you need to pull yourself together and look forward. SW asked pt if he would ever consider harming himself. Pt denies stating that he says some rough things some times but would not harm himself. Pt stating, that's the chicken shit way out. I would be out of misery but would cause so much pain for the people I love. 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 Pt denies suicidal attempts in the past and denies having a plan to harm himself at this time. 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 No denies any suicidal ideation or plans, SW will continue to follow. DAV Baptiste
[2020-10-06 16:35] LABS: Bedside Glucose 264 mg/dL (70-110)
[2020-10-06] MEDS: oxyCODONE 5 MG Tablet 10 MG PO ×2 (18:38→22:43)
[2020-10-06] MEDS: MELATONIN 3 MG TABLET PO (20:14)
[2020-10-06 21:31] LABS: Bedside Glucose 347 mg/dL (70-110)
[2020-10-07] MEDS: HYDROmorphone 2 MG TABLET PO ×7 (00:13→21:45)
[2020-10-07 04:50] VITALS: BP 134/57; PULSE 73; RESP 14; TEMP 36.6; O2SAT 98
[2020-10-07] MEDS: metroNIDAZOLE 500 MG Tablet PO ×3 (04:54→21:45)
[2020-10-07] MEDS: Doxycycline 100 MG CAPSULE PO ×2 (04:54→17:00)
[2020-10-07] MEDS: Senna Tablet 2 TABLET PO (04:54)
[2020-10-07] MEDS: amLODIPine 10 MG Tablet PO (04:54)
[2020-10-07] MEDS: Cefdinir 300 MG Capsule PO ×2 (04:55→17:00)
[2020-10-07] MEDS: Lisinopril 40 MG Tablet PO (04:55)
[2020-10-07] MEDS: Glucerna Shake 120 ML LIQUID PO ×4 (04:57→21:45)
[2020-10-07 06:31] LABS: Bedside Glucose 243 mg/dL (70-110)
[2020-10-07] MEDS: Ascorbic Acid 500 MG Tablet PO ×2 (08:22→17:00)
[2020-10-07] MEDS: Juven (unflavored) Packet 1 PACKET PO ×2 (08:22→17:03)
[2020-10-07] MEDS: Iron Polysaccharide Complex 150 MG CAPSULE PO ×2 (08:23→21:45)
--- NOTE | 2020-10-07 09:07 | NURSING ---
Was going to change patient's dressing, but patient is wanting to shower first. will try to assess wound again on Saturday.
[2020-10-07] MEDS: oxyCODONE 5 MG Tablet 10 MG PO (09:51)
[2020-10-07 10:45] LABS: Bedside Glucose 277 mg/dL (70-110)
[2020-10-07] MEDS: DAKIN'S SOL HALF STRENGTH (=0.25%) 1 APPLIC TOPICAL (10:46)
[2020-10-07 12:37] VITALS: PULSE 78; RESP 16; O2SAT 97
--- NOTE | 2020-10-07 14:20 | CASEMGMT ---
Social Work SW met with pt and in room and provided written information on applying for disability. Questions answered and pt appreciative for information. Chandrakant DEMARCO
[2020-10-07 14:58] VITALS: BP 130/69; PULSE 85; RESP 20; TEMP 36.5; O2SAT 95
[2020-10-07 17:06] LABS: Bedside Glucose 180 mg/dL (70-110)
--- NOTE | 2020-10-07 17:10 | PN.SURG_ITS ---
Subjective Subjective Postop day #8 from 1. Surgical preparation left perianal area with excision hidradenitis abscess (144 cm2). 2. Surgical preparation left posterior thigh with incision and drainage and excisional debridement hidradenitis abscess (96 cm2). Resting in bed. States he is having issues with pain control. Objective Data Objective Data Vital Signs: Vital Signs Temp Pulse Resp BP Pulse Ox 97.7 F L 85 20 H 130/69 H 95 10/07/20 14:58 10/07/20 14:58 10/07/20 14:58 10/07/20 14:58 10/07/20 14:58 Oxygen Delivery Method Room Air Weight: 151 lb 2.982 oz Body Mass Index (BMI) 22.8 Intake & Output: Intake and Output for Last 24 Hours 10/05/20 10/06/20 10/07/20 23:59 23:59 23:59 Intake Total 480 / 480 1100 / 1100 480 / 480 Output Total 725 / 725 450 / 450 75 / 75 Balance -245 / -245 650 / 650 405 / 405 Medical Nutrition Assessment Dietitian: Malnutrition Criteria Met Start: 10/04/20 12:24 Freq: Status: Active Protocol: Document 10/04/20 12:24 AG (Rec: 10/04/20 12:25 [id number]) Nutrition Malnutrition Evidence of Malnutrition Exists Yes Malnutrition (severe): Chronic Evidenced By Suboptimal Energy Intake ( Severe),Weight Loss (Severe) Clinical Problem Chronic Disease or Condition Related Malnutrition Etiology severe malnutrition r/t inadequate energy intake w/ increased nutrient need d/t nonhealing wound Signs/Symptoms as evidenced by estimated PO intake meeting <50% of estimated nutritional needs >3 months, unintentional wt loss of 12.8#/8% wt loss x 3-4 months Status Active Problem Recommendation Dietitian Recommendations/Changes continue CHO controlled diet; will add 120mL ensure enlive 4x/day and Curtis BID for additional calories/protein. Lab / Micro Data Result Diagrams: 10/06/20 05:17 10/04/20 05:40 Labs: Laboratory Results - last 24 hr 10/06/20 21:21: POC Glucose 347 H 10/07/20 06:23: POC Glucose 243 H 10/07/20 10:36: POC Glucose 277 H 10/07/20 17:01: POC Glucose 180 H Physical Exam Const oriented x3 Constitutional Narrative: Looks uncomfortable do to being in pain. Resp normal respiratory effort Cardio regular rate GI soft to palpation Extremity full ROM Skin Wound Narrative: Left perianal and left posterior thigh ulcer is stable. No active bleeding. Dressing dry and intact. Neuro oriented x3 Psych mental status grossly normal Assessment & Plan Assessment/Plan (1) Open wound of left buttock with complication: QUALIFIERS: Encounter type: initial encounter Qualified Code(s): S31.829A - Unspecified open wound of left buttock, initial encounter (2) Complicated open wound of left thigh: (3) Debility: (4) Diabetes mellitus: (5) Acute postoperative anemia due to expected blood loss: (6) Malnutrition: QUALIFIERS: Malnutrition type: protein-calorie malnutrition Protein-calorie malnutrition severity: moderate Qualified Code(s): E44.0 - Moderate protein-calorie malnutrition (7) Other acute postprocedural pain: PLAN: Patient is resting in bed. He states he is having issues with pain control. Operative cultures from 09/29/20 positive for Streptococcus constellatus, Corynebacterium striatum, Anaerobic cocci and Prevotella species. He is currently on Cefdinir, Doxycycline, and FLagyl. Left posterior thigh and left perianal wounds are stable with no active bleedi ng. Redressed today with Dakin's wet to dry dressings. Left groin ulcer is stable. Hgb 9.3 on 10/06/20. Acute postoperative anemia due to expected blood loss. He also has a history of chronic anemia. Will continue to monitor. Encouraged increase protein intake and protein supplementation to help with healing his ulcer. When he is discharged from the TCU, he will follow up at the wound healing c enter. Charges/Coding Procedures Integumentary [id number]: [id number] Global Visit
[2020-10-07 21:31] LABS: Bedside Glucose 197 mg/dL (70-110)
[2020-10-07] MEDS: Acetaminophen 500 MG Tablet 1000 MG PO (21:44)
[2020-10-08] MEDS: HYDROmorphone 2 MG TABLET PO ×6 (02:27→23:16)
--- NOTE | 2020-10-08 02:30 | NURSING ---
Dressing changed per dr order to lt buttock and medial thigh d/t soiling of ABDs. Large aount of serosanguinous and yellow drainage. No foul odor.Wound bed pink and w/ small amounts of yellow slough. Several 4x4s moistened w/ Dakins solution, covered w/ ABDs, and secured w/ medipore tape. Pt tolerated fair. Medicated w/ Dilaudid just prior to start of wound care. Ostomy then starts to leak and entire appliance change completed. Stool dark brown and of liquid consistency. Flange removed w/ etoh. Periwound skin cleansed w/ bathing wipes, skin prep [id number] and allowed to dry, thin layer of stoma paste applied, flange applied w/ drainage bag attached, pt tolerated fair. In no acute distress.
[2020-10-08] MEDS: DAKIN'S SOL HALF STRENGTH (=0.25%) 1 APPLIC TOPICAL (02:52)
[2020-10-08] MEDS: oxyCODONE 5 MG Tablet 10 MG PO ×2 (03:35→16:26)
[2020-10-08] MEDS: Glucerna Shake 120 ML LIQUID PO ×4 (04:55→20:12)
[2020-10-08] MEDS: Acetaminophen 500 MG Tablet 1000 MG PO (04:56)
[2020-10-08] MEDS: Lisinopril 40 MG Tablet PO (04:56)
[2020-10-08] MEDS: Doxycycline 100 MG CAPSULE PO ×2 (04:57→17:29)
[2020-10-08] MEDS: Cefdinir 300 MG Capsule PO ×2 (04:57→17:29)
[2020-10-08] MEDS: amLODIPine 10 MG Tablet PO (04:57)
[2020-10-08] MEDS: Polyethylene Glycol 3350 17 GM PACKET PO (04:58)
[2020-10-08] MEDS: metroNIDAZOLE 500 MG Tablet PO ×4 (04:58→21:01)
[2020-10-08 05:04] VITALS: BP 130/55; PULSE 79; RESP 16; O2SAT 96
[2020-10-08 06:30] LABS: Bedside Glucose 304 mg/dL (70-110)
--- NOTE | 2020-10-08 07:23 | NURSING ---
Addendum entered by Belinda Turner 10/08/20 07:30: Appliance change completed at 2200. Original Note: DRAWBRIDGE OPERATOR reports colostomy is dislodged. Upon entering room, one wet wipe is covering stoma. Dried stool noted on abdomen. Soiled skin cleansed w/ soap and water. Stoma paste removed. Skin prep applied to periwound skin and allowed to dry. Thin layer of stoma paste applied to periwound skin. Stoma red, round, and moist. Flange applied and bag applied. Pt tolerated well.
[2020-10-08] MEDS: Ascorbic Acid 500 MG Tablet PO ×2 (08:29→17:29)
[2020-10-08] MEDS: Juven (unflavored) Packet 1 PACKET PO ×2 (08:29→16:32)
[2020-10-08 10:41] LABS: Bedside Glucose 318 mg/dL (70-110)
[2020-10-08] MEDS: Iron Polysaccharide Complex 150 MG CAPSULE PO ×2 (10:59→21:00)
[2020-10-08 17:05] LABS: Bedside Glucose 196 mg/dL (70-110)
[2020-10-09] MEDS: oxyCODONE 5 MG Tablet 10 MG PO ×3 (00:29→17:35)
[2020-10-09 01:01] LABS: Bedside Glucose 151 mg/dL (70-110)
[2020-10-09] MEDS: HYDROmorphone 2 MG TABLET PO ×5 (03:25→20:41)
[2020-10-09 06:53] VITALS: BP 134/58; PULSE 78
[2020-10-09] MEDS: Polyethylene Glycol 3350 17 GM PACKET PO (06:54)
[2020-10-09] MEDS: Cefdinir 300 MG Capsule PO ×2 (06:55→17:35)
[2020-10-09] MEDS: amLODIPine 10 MG Tablet PO (06:55)
[2020-10-09] MEDS: Doxycycline 100 MG CAPSULE PO ×2 (06:56→17:35)
[2020-10-09] MEDS: Lisinopril 40 MG Tablet PO (06:56)
[2020-10-09 07:10] LABS: Bedside Glucose 134 mg/dL (70-110)
[2020-10-09] MEDS: Ascorbic Acid 500 MG Tablet PO ×2 (09:23→17:35)
[2020-10-09] MEDS: Juven (unflavored) Packet 1 PACKET PO ×2 (09:23→16:36)
[2020-10-09] MEDS: Iron Polysaccharide Complex 150 MG CAPSULE PO ×2 (10:45→20:41)
[2020-10-09 11:01] LABS: Bedside Glucose 300 mg/dL (70-110)
[2020-10-09] MEDS: DAKIN'S SOL HALF STRENGTH (=0.25%) 1 APPLIC TOPICAL (13:01)
[2020-10-09] MEDS: Glucerna Shake 120 ML LIQUID PO ×3 (13:25→20:42)
[2020-10-09] MEDS: metroNIDAZOLE 500 MG Tablet PO ×2 (13:25→20:41)
[2020-10-09 15:12] VITALS: BP 126/71; PULSE 87; RESP 16; TEMP 36.6; O2SAT 98
[2020-10-09 17:05] LABS: Bedside Glucose 130 mg/dL (70-110)
--- NOTE | 2020-10-09 18:00 | RAD_ITS ---
STUDY: X-RAY - ABDOMEN/PELVIS REASON FOR EXAM: Male, 55 years old. Rule out Constipation recent placed colostomy TECHNIQUE: Single AP view of the abdomen / pelvis. COMPARISON: None. FINDINGS: Normal visualized lung bases. There is an unremarkable bowel gas pattern. There is no demonstrated free abdominal air. The visualized liver, spleen and kidneys are grossly normal in size and morphology. Normal soft tissue structures. There are diffuse degenerative changes of the visualized lumbar spine. RAD/Abdomen Single View (Portable) IMPRESSION: Nonobstructive bowel gas pattern. Electronically Signed: Uli Junior MD (Brooks) at 18:21 EDT , Service support ,
[2020-10-09 21:21] LABS: Bedside Glucose 257 mg/dL (70-110)
[2020-10-10] MEDS: HYDROmorphone 2 MG TABLET PO ×4 (00:25→20:20)
[2020-10-10] MEDS: Polyethylene Glycol 3350 17 GM PACKET PO (05:51)
[2020-10-10] MEDS: oxyCODONE 5 MG Tablet 10 MG PO ×4 (05:51→23:14)
[2020-10-10] MEDS: Cefdinir 300 MG Capsule PO (05:52)
[2020-10-10] MEDS: Doxycycline 100 MG CAPSULE PO (05:53)
[2020-10-10] MEDS: metroNIDAZOLE 500 MG Tablet PO (05:53)
[2020-10-10] MEDS: Lisinopril 40 MG Tablet PO (05:54)
[2020-10-10] MEDS: amLODIPine 10 MG Tablet PO (05:54)
[2020-10-10 05:55] LABS: Absolute Lymphocyte Count 2.14 X10^3/uL (0.83-4.51); Absolute Neutrophil Count 8.9 X10^3/uL (2.0-7.7); Basophil# 0.04 X10^3/uL; Basophil% 0.3 % (0-1); Eosinophil# 0.12 X10^3/uL; Hematocrit 27.5 % (40-54); Hemoglobin 8.6 g/dL (13.0-16.5); Lymphocyte # 2.14 X10^3/ul (0.83-4.51); Lymphocyte % 17.8 % (19-41); Mean Corp Hgb Conc 31.3 g/dL (32-36); Mean Corpuscular Hgb 27.1 pg (27.0-32.0); Mean Corpuscular Volume 86.8 fL (80-94); Monocyte# 0.76 X10^3/uL; Monocyte% 6.3 % (0-10); NRBC Flagged by Analyzer 0 % (0-5); Neutrophil # 8.89 X10^3/uL (2.7-7.7); Neutrophil % 74.3 % (47-70); Platelet Count 351 K/mm3 (150-450); RBC Distribution Width CV 15.4 % (11.6-14.6); RBC Distribution Width SD 49.1 fl (35.1-43.9); Red Blood Count 3.17 M/mm3 (4.6-6.2)
[2020-10-10] MEDS: Ondansetron ODT 4 MG Tablet PO (05:58)
[2020-10-10] MEDS: Glucerna Shake 120 ML LIQUID PO ×4 (05:58→20:27)
[2020-10-10 05:59] VITALS: BP 148/57; PULSE 86
[2020-10-10 06:06] LABS: Bedside Glucose 170 mg/dL (70-110)
[2020-10-10 06:24] LABS: Anion Gap 5 (5-15); BUN 22 mg/dL (7-18); BUN/Creat Ratio 23.8 RATIO (10-20); Calcium,Total 8.7 mg/dL (8.5-10.1); Chloride 107 mmol/L (98-107); Creatinine, Serum 0.92 mg/dL (0.70-1.30); EST Glomerular Filtration Rate 90 mL/min (>60); Est Glom Filt Rate - Afr Amer 109 mL/min (>60); Estimated Creatinine Clearance 85.71 ml/min; Glucose 204 mg/dL (74-106); Potassium 4.4 mmol/L (3.5-5.1); Sodium Level 137 mmol/L (136-145)
[2020-10-10] MEDS: Juven (unflavored) Packet 1 PACKET PO ×2 (08:35→16:10)
[2020-10-10] MEDS: Ascorbic Acid 500 MG Tablet PO ×2 (08:39→16:10)
--- NOTE | 2020-10-10 08:59 | CASEMGMT ---
Social Work Referral made to palliative medicine for consultation per physician request. DAV Baptiste
[2020-10-10] MEDS: DAKIN'S SOL HALF STRENGTH (=0.25%) 1 APPLIC TOPICAL (10:00)
[2020-10-10] MEDS: Iron Polysaccharide Complex 150 MG CAPSULE PO ×2 (10:03→20:28)
[2020-10-10 10:51] LABS: Bedside Glucose 206 mg/dL (70-110)
[2020-10-10 16:00] VITALS: BP 136/54; PULSE 79; RESP 16; TEMP 36.8; O2SAT 98
[2020-10-10 16:01] LABS: Bedside Glucose 281 mg/dL (70-110)
[2020-10-10 21:27] LABS: Bedside Glucose 209 mg/dL (70-110)
[2020-10-11] MEDS: HYDROmorphone 2 MG TABLET PO ×5 (00:59→23:50)
[2020-10-11] MEDS: Polyethylene Glycol 3350 17 GM PACKET PO (05:35)
[2020-10-11] MEDS: Glucerna Shake 120 ML LIQUID PO ×4 (05:37→19:53)
[2020-10-11] MEDS: Lisinopril 40 MG Tablet PO (05:40)
[2020-10-11] MEDS: amLODIPine 10 MG Tablet PO (05:40)
--- NOTE | 2020-10-11 05:40 | NURSING ---
Attempt to locate and remove prior nicotine patch before application of new patch as ordered, no patch located on body/skin- pt. states It came off earlier, I had a shower yesterday. New patch applied. Pt. educated only one nicotine patch to be on body at a time, nurse to remove- pt. verbalizes understanding.
[2020-10-11 06:26] LABS: Bedside Glucose 175 mg/dL (70-110)
[2020-10-11] MEDS: oxyCODONE 5 MG Tablet 10 MG PO ×3 (07:57→19:53)
--- NOTE | 2020-10-11 09:02 | PCM.CONS.P ---
Assessment & Plan Assessment/Plan (1) Chronic pain: QUALIFIERS: Chronic pain type: other chronic pain Qualified Code(s): G89.29 - Other chronic pain (2) Complicated open wound of left thigh: (3) Open wound of left buttock with complication: QUALIFIERS: Encounter type: initial encounter Qualified Code(s): S31.829A - Unspecified open wound of left buttock, initial encounter (4) Abscess of buttock, left: (5) Debility: (6) Diabetes mellitus: QUALIFIERS: Diabetes mellitus type: type 2 (7) Chronic obstructive pulmonary disease: (8) Coronary artery disease: PLAN: SVEN DUONG, is a 55 Male referred to [facility] for management of acute on chronic pain. Due to life expectancy greater than 3 years or without documented homebound status, patient would not qualify for Palliative pain management. 1) Chronic pain: Discussed case with Dr. Daniel and feel that pain management would be the best option to control acute on chronic pain. Referral to Dr. Ramirez would be our recommendation. 2) DM, debility, COPD, CAD, Hidradenitis suppurativa, wound complications: Defer to PCP and specialists. OT/PT was ordered. Palliative willing to follow patient if continues to have frequent hospitalizations, increased functional and physical decline. Discussed with patient options for Palliative to follow at discharge for support of chronic conditions. Will have Liaison reach out at discharge. Thank you for the opportunity to participate in this patient's care, please do not hesitate to contact [facility] with any further questions or concerns. Palliative direct line is [phone]. Greater than 50% of F2F visit dedicated to education and counseling of palliative care, comorbid conditions and qualifications of management, and plan of care moving forward. . Start time: 08:15 End time: 09:30 . HPI Consult Data Date of Consult: 10/11/20 HPI Narrative HPI Narrative: SVEN DUONG, is a 55 M who was referred to [facility] for management of acute pain related to drainage of abscess and cellulitis of left buttocks/ srini area related to nonhealing hidradenitis suppurativa. He was on Tramadol at home and was on multiple courses of Doxycycline and a course of Cefdinir. Noted increased pain and pus drainage. He underwent debridement of the perineal area. Dr. Osorio performed a laparoscopic sigmoid colostomy on 10/01/20 to aide with wound healing. Dr. Paulino recommended 1 week of Doxycycline, Cefdiner and Flagyl. He was admitted to TCU on 10/03/20 with debility, rehab and strengthening, wound care before discharge home with his . He has uncontrolled diabetes and past medical history included below. Seen today in his TCU room holding to the left side rail with gritted teeth. They don't know how to control my pain. I take Dilaudid then fall asleep and wake up completely miserable. Describes pain in hips and legs 10/10 and that it hurts to move them. Incisional pain and colostomy is not bad. Denies any accompanying symptoms at this time. Patient was standing at bedside when re-entered room. Mood was improved. Describes pain over 10/10 in back, hip and knees. Reports accidents dating back to childhood and has tried critical care physician etc. Understanding of pain management consult and Palliative management and support discussed with patient more open to discussion. [facility] Medical History (Updated 10/11/20 @ 09:30 by Michelle Renee NP-C) Abscess of buttock, left Abscess of left thigh Acute blood loss anemia Anemia Anemia of chronic disease Back pain due to injury Colostomy in place Complicated open wound of left thigh COPD (chronic obstructive pulmonary disease) Coronary artery disease Current use of insulin Diabetes Diabetes mellitus type 2, uncontrolled, with complications Diabetes type 2, uncontrolled Heart disease Hidradenitis suppurativa of anus History of stress test Hydradenitis Hydradenitis Hyperlipidemia associated with type 2 diabetes mellitus Hypertension Malnutrition Myocardial infarct Open wound of left buttock with complication Pain in the groin Skin ulcer of scrotum Sleep apnea Smoker Ulcer of left groin with fat layer exposed Ulcer of perineum with fat layer exposed Home Medications acetaminophen [Tylenol] 650 mg PO Q6H PRN PRN #0 tab 10/03/20 [Rx Last Taken Unknown] albuterol sulfate 2.5 mg INHALATION Q2H PRN PRN #0 ml 10/03/20 [Rx Last Taken Unknown] docusate sodium [DOK] 100 mg PO BID PRN PRN #0 cap 10/03/20 [Rx Last Taken Unknown] melatonin 3 mg PO QHS PRN PRN #0 tab 10/03/20 [Rx Last Taken Unknown] oxycodone 10 mg PO Q4H PRN PRN 3 Days #12 tab 10/03/20 [Rx Last Taken Unknown] polyethylene glycol 3350 17 g PO DAILY PRN #0 ea 10/03/20 [Rx Last Taken Unknown] amlodipine 10 mg PO DAILY 10/10/20 [History Last Taken Unknown] ascorbic acid (vitamin C) 500 mg PO BIDCM 10/10/20 [History Last Taken Unknown] cefdinir 300 mg PO Q12H 10/10/20 [History Last Taken Unknown] doxycycline hyclate 100 mg PO BID 10/10/20 [History Last Taken Unknown] ferrous sulfate [FeroSul] 325 mg PO 1200,1700 10/10/20 [History Last Taken Unknown] insulin glargine [Lantus Solostar U-100 Insulin] 5 units SUBCUT QHS 10/10/20 [History Last Taken Unknown] insulin lispro [Humalog KwikPen Insulin] See Protocol SUBCUT ACHS 10/10/20 [History Last Taken Unknown] lisinopril 40 mg PO DAILY 10/10/20 [History Last Taken Unknown] metronidazole [Flagyl] 500 mg PO TID 10/10/20 [History Last Taken Unknown] nicotine 21 mg TRANSDERMAL DAILY 10/10/20 [History Last Taken Unknown] sennosides-docusate sodium [Stool Softener-Stimulant Laxat] 2 tab PO BID 10/10/20 [History Last Taken Unknown] Allergy/AdvReac Type Severity Reaction Status Date / Time Penicillins Allergy Unknown Verified 09/27/20 19:04 Sulfa (Sulfonamide Allergy Unknown Verified 09/27/20 19:04 Antibiotics) bupropion [From Wellbutrin] AdvReac Severe change in Verified 09/27/20 19:04 personality ,meanness and smoked more Family History Aunt Lung disease lung cancer Father Heart disease Hypertension Family history of high cholesterol Diabetes Mother Diabetes Daughter Epilepsy Surgical History History of coronary artery stent placement History of incision and drainage History of removal of cyst History of tonsillectomy and adenoidectomy Hx of CABG Hx of hernia repair Stented coronary artery Social History (Updated 10/03/20 @ 19:[address] Yogesh Daniel MD) household members: spouse Smoking Status: Current every day smoker tobacco type: cigarettes alcohol intake: never substance use type: does not use additional social history: DOES NOT TAKE ASPIRIN DOES NOT TAKE IBUPROFEN ROS Cardiovascular Cardiovascular: Denies chest pain at rest or chest pain with activity Respiratory/Chest Respiratory/Chest: Denies chest congestion, chest tightness, cough or dyspnea on exertion Gastrointestinal Gastrointestinal: Reports other Details: Denies issues with colostomy ; Denies abdominal pain, constipation or nausea Musculoskeletal Musculoskeletal: Reports back pain, difficulty walking, extremity pain, joint pain and joint stiffness Integumentary Integumentary: Reports other Details: perineal/ left hip wound Psychiatric Psychiatric: Reports irritability Physical Exam Const General Appearance: in distress Positive for moderate (tense, painful), anxious and disheveled Orientation / Consciousness: awake, oriented to person, oriented to place and oriented to time Exam Limitations: behavioral limitations HEENT Head and Scalp: normal to inspection, normocephalic and atraumatic Chest Chest: symmetrical chest wall rise Resp normal respiratory effort and normal air movement Effort and Inspection: able to speak in complete sentences and symmetric chest movement Auscultation: clear to auscultation bilaterally Cardio regular rate, regular rhythm, S1 normal heart sound and S2 normal heart sound GI Auscultation: normoactive bowel sounds and other Other Details: colostomy intact Palpation: soft Back/Spine Thoracic Spine / Upper Back: ROM limited Extremity no clubbing, cyanosis or edema Skin General Skin Exam: other Dressings to left hip/ groin intact Psych Attitude: belligerent and agitated
[2020-10-11] MEDS: Juven (unflavored) Packet 1 PACKET PO ×2 (09:45→17:35)
[2020-10-11] MEDS: Ascorbic Acid 500 MG Tablet PO ×2 (09:46→17:35)
[2020-10-11] MEDS: DAKIN'S SOL HALF STRENGTH (=0.25%) 1 APPLIC TOPICAL (09:50)
[2020-10-11 10:00] VITALS: PULSE 107; RESP 16; O2SAT 99
--- NOTE | 2020-10-11 10:13 | WOUNDNOTE ---
Nursing had just changed dressing. will attempt to assess wound again tomorrow.
[2020-10-11] MEDS: Iron Polysaccharide Complex 150 MG CAPSULE PO ×2 (11:01→19:53)
[2020-10-11] MEDS: Tuberculin,Purif.prot.deriv. 50 TU/ML Vial 0.1 ML ID (11:02)
[2020-10-11] MEDS: Acetaminophen 500 MG Tablet 1000 MG PO ×2 (11:06→19:54)
[2020-10-11 11:25] LABS: Bedside Glucose 214 mg/dL (70-110)
--- NOTE | 2020-10-11 12:01 | PCA ---
patient got taco waters brought into him
--- NOTE | 2020-10-11 15:12 | NURSING ---
Resident educated on COVID Vaccine and does not want to receive it. Resident and spouse, Shima, notified of COVID status on the unit.
[2020-10-11 16:36] VITALS: BP 124/52; PULSE 79; RESP 15; TEMP 37; O2SAT 98
[2020-10-11 17:26] LABS: Bedside Glucose 216 mg/dL (70-110)
--- NOTE | 2020-10-11 18:52 | NURSING ---
Dr Ramirez to unit to see patient.
--- NOTE | 2020-10-11 20:18 | RAD_ITS ---
STUDY: X-RAY - THORACIC SPINE REASON FOR EXAM: Male, 55 years old. Mid back pain TECHNIQUE: 3 view(s) of the thoracic spine were obtained. COMPARISON: None. FINDINGS: Normal kyphosis of the thoracic spine. There is no substantial scoliosis. There is demineralization of the thoracic spine with endplate spondylosis. There is multilevel disc space narrowing of the thoracic spine. The soft tissue structures are unremarkable. RAD/Thoracic Spine 3 Views IMPRESSION: Multilevel degenerative changes, no acute findings Electronically Signed: Douglas Avila MD at 21:36 EDT , Service support ,
[2020-10-11 21:31] LABS: Bedside Glucose 315 mg/dL (70-110)
[2020-10-11] MEDS: MELATONIN 3 MG TABLET PO (23:55)
[2020-10-12] MEDS: HYDROmorphone 2 MG TABLET PO ×5 (03:15→19:48)
[2020-10-12 05:58] LABS: Hematocrit 27.3 % (40-54); Hemoglobin 8.3 g/dL (13.0-16.5)
[2020-10-12 06:25] LABS: Bedside Glucose 150 mg/dL (70-110)
[2020-10-12] MEDS: Acetaminophen 500 MG Tablet 1000 MG PO ×2 (06:43→21:16)
[2020-10-12] MEDS: amLODIPine 10 MG Tablet PO (06:44)
[2020-10-12] MEDS: Lisinopril 40 MG Tablet PO (06:44)
[2020-10-12] MEDS: Polyethylene Glycol 3350 17 GM PACKET PO (06:46)
[2020-10-12] MEDS: Glucerna Shake 120 ML LIQUID PO ×4 (06:46→19:48)
[2020-10-12] MEDS: Juven (unflavored) Packet 1 PACKET PO ×2 (08:31→17:15)
[2020-10-12] MEDS: Ascorbic Acid 500 MG Tablet PO ×2 (08:31→17:15)
--- NOTE | 2020-10-12 10:32 | WOUNDNOTE ---
wound photo: left buttock/posterior thigh
--- NOTE | 2020-10-12 10:33 | WOUNDNOTE ---
wound photo: left groin
[2020-10-12] MEDS: DAKIN'S SOL HALF STRENGTH (=0.25%) 1 APPLIC TOPICAL (11:32)
[2020-10-12] MEDS: Iron Polysaccharide Complex 150 MG CAPSULE PO ×2 (11:32→19:53)
--- NOTE | 2020-10-12 12:13 | CASEMGMT ---
Social Work Plan of care meeting held with pt present and pt on conference call. Pt is receiving PT/OT and making good progress. [facility] for wound care and new colostomy care. Pt states that he has been learning and taking care of his colostomy. Pt lives at home with his and plans to return home at time of discharge. Pt's was assisting with wound care dressing changes at home and can assist again. Pt was active with [facility] prior to admission and pt would like to restart this upon discharge. Pt aware that Insurance has approved stay with an update on 10/19/20 and that pt will discharge on day after insurance issues non coverage date. Will continue with treatment plan on TCU at this time. DAV Baptiste
--- NOTE | 2020-10-12 15:58 | NURSING ---
Addendum entered by Valeria Guthrie 10/12/20 17:18: NOTIFIED R' OF NEW ORDER. AGREEABLE. Original Note: Called Dr. Ramirez's office and spoke with junior legal secretary let them know that pharmacy does not carry Butran Patches. Awaiting call back.
[2020-10-12] MEDS: Gabapentin 300 MG Capsule PO (17:15)
[2020-10-12 17:25] LABS: Bedside Glucose 181 mg/dL (70-110)
[2020-10-12 17:33] VITALS: BP 144/90; PULSE 101; RESP 20; TEMP 36.7; O2SAT 95
[2020-10-12 20:15] VITALS: PULSE 103; RESP 16; O2SAT 95
[2020-10-12] MEDS: oxyCODONE 5 MG Tablet 10 MG PO (21:16)
[2020-10-12 21:36] LABS: Bedside Glucose 302 mg/dL (70-110)
[2020-10-13] MEDS: HYDROmorphone 2 MG TABLET PO ×6 (00:20→23:57)
[2020-10-13 06:20] LABS: Bedside Glucose 142 mg/dL (70-110)
[2020-10-13] MEDS: amLODIPine 10 MG Tablet PO (06:38)
[2020-10-13] MEDS: Polyethylene Glycol 3350 17 GM PACKET PO (06:39)
[2020-10-13] MEDS: Lisinopril 40 MG Tablet PO (06:39)
[2020-10-13 06:44] VITALS: BP 138/76; PULSE 83
--- NOTE | 2020-10-13 07:35 | NURSING ---
Ostomy leaking out from under wafer early this morning. Cleansed around stoma, applied skin prep, applied new wafer and ostomy bag. Patient tolerated well. Peristomal skin intact without redness.
[2020-10-13] MEDS: Ascorbic Acid 500 MG Tablet PO ×2 (08:30→16:57)
[2020-10-13] MEDS: Juven (unflavored) Packet 1 PACKET PO ×2 (08:30→16:57)
[2020-10-13] MEDS: Gabapentin 300 MG Capsule PO ×2 (08:30→16:57)
--- NOTE | 2020-10-13 09:33 | MDS.RN ---
Information for the mds was obtained from review of the clinical record, interview of resident, staff, and direct observation of resident's care.
[2020-10-13 11:00] LABS: Bedside Glucose 310 mg/dL (70-110)
[2020-10-13] MEDS: oxyCODONE 5 MG Tablet 10 MG PO ×2 (12:50→21:45)
[2020-10-13] MEDS: Iron Polysaccharide Complex 150 MG CAPSULE PO ×2 (12:51→20:28)
[2020-10-13 14:08] VITALS: PULSE 118; RESP 22; O2SAT 95
[2020-10-13 16:17] LABS: Bedside Glucose 272 mg/dL (70-110)
[2020-10-13] MEDS: Glucerna Shake 120 ML LIQUID PO ×2 (16:57→20:28)
[2020-10-13] MEDS: DAKIN'S SOL HALF STRENGTH (=0.25%) 1 APPLIC TOPICAL (16:58)
[2020-10-13 18:35] VITALS: BP 144/81; PULSE 118; RESP 22; TEMP 36.6; O2SAT 95
[2020-10-13 21:16] LABS: Bedside Glucose 230 mg/dL (70-110)
[2020-10-14] MEDS: HYDROmorphone 2 MG TABLET PO ×5 (04:21→21:58)
[2020-10-14] MEDS: Polyethylene Glycol 3350 17 GM PACKET PO (04:30)
[2020-10-14] MEDS: Glucerna Shake 120 ML LIQUID PO ×4 (04:30→20:10)
[2020-10-14] MEDS: Lisinopril 40 MG Tablet PO (04:31)
[2020-10-14] MEDS: amLODIPine 10 MG Tablet PO (04:31)
[2020-10-14 04:40] VITALS: BP 153/61; PULSE 61
[2020-10-14 06:20] LABS: Bedside Glucose 199 mg/dL (70-110)
[2020-10-14] MEDS: Gabapentin 300 MG Capsule PO ×2 (08:30→17:22)
[2020-10-14] MEDS: Iron Polysaccharide Complex 150 MG CAPSULE PO ×2 (08:30→20:10)
[2020-10-14] MEDS: Ascorbic Acid 500 MG Tablet PO ×2 (08:31→17:22)
[2020-10-14] MEDS: Juven (unflavored) Packet 1 PACKET PO ×2 (08:31→17:21)
[2020-10-14] MEDS: DAKIN'S SOL HALF STRENGTH (=0.25%) 1 APPLIC TOPICAL (08:32)
[2020-10-14 11:10] LABS: Bedside Glucose 282 mg/dL (70-110)
--- NOTE | 2020-10-14 12:41 | NURSING ---
R' STATES HE IS TOLERATING GABAPENTIN AND IS REQUESTING IT BE INCREASED TO TID. DR HERNANDEZ'S OFFICE NOTIFIED. SPOKE WITH BASILIA AND THE ORDER IS NOW INCREASED TO TID. WILL UPDATE R'. R' CONT' TO RATE PAIN 10/10 IN BACK. R' CURRENTLY RESTING IN BED/RECENTLY MEDICATED WITH DILAUDID. WILL MONITOR.
[2020-10-14] MEDS: oxyCODONE 5 MG Tablet 10 MG PO ×3 (13:19→23:59)
--- NOTE | 2020-10-14 13:32 | NURSING ---
Addendum entered by Valeria Guthrie 10/14/20 17:27: R' MADE AWARE OF NEW ORDERS FOR INSULIN AND INCREASED GABAPENTIN FREQUENCY STARTING TOMORROW. AGREEABLE. Original Note: NOTIFIED DR RUBIO OF INCREASED BLOOD SUGARS. NEW ORDERS TO INCREASE LANTUS AND START ON HUMALOG.
[2020-10-14 15:10] VITALS: BP 128/70; PULSE 81; RESP 18; TEMP 36.8; O2SAT 97
[2020-10-14 17:11] LABS: Bedside Glucose 176 mg/dL (70-110)
[2020-10-14] MEDS: Insulin Lispro 100 UNIT/ML INSULN.PEN 7 UNIT SC (17:22)
[2020-10-14 20:00] VITALS: PULSE 104; RESP 20; O2SAT 99
--- NOTE | 2020-10-14 20:22 | NURSING ---
New colostomy appliance applied at this time due to patient report of leaking. Stoma moist, beefy red, soft dark brown stool observed. Pt. education provided regarding stoma assessment and colostomy appliance application, education effective as evidence by pt. verbalizing understanding and repeating back steps of application. HS medication administered with PRN Oxy per pt. request. No distress observed or reported. Denies further requests. Call light in reach.
[2020-10-14 22:20] LABS: Bedside Glucose 219 mg/dL (70-110)
[2020-10-15] MEDS: HYDROmorphone 2 MG TABLET PO ×5 (02:10→17:17)
[2020-10-15] MEDS: Glucerna Shake 120 ML LIQUID PO ×3 (06:38→17:17)
[2020-10-15] MEDS: Polyethylene Glycol 3350 17 GM PACKET PO (06:39)
[2020-10-15 06:41] LABS: Bedside Glucose 237 mg/dL (70-110)
[2020-10-15] MEDS: Lisinopril 40 MG Tablet PO (06:43)
[2020-10-15] MEDS: amLODIPine 10 MG Tablet PO (06:43)
[2020-10-15 07:08] VITALS: BP 146/70; PULSE 100; RESP 16
[2020-10-15] MEDS: Gabapentin 300 MG Capsule PO ×3 (09:08→17:20)
[2020-10-15] MEDS: Juven (unflavored) Packet 1 PACKET PO ×2 (09:08→17:19)
[2020-10-15] MEDS: Ascorbic Acid 500 MG Tablet PO ×2 (09:08→17:20)
[2020-10-15] MEDS: oxyCODONE 5 MG Tablet 10 MG PO ×2 (09:09→16:11)
[2020-10-15] MEDS: Iron Polysaccharide Complex 150 MG CAPSULE PO ×2 (09:09→17:20)
[2020-10-15] MEDS: Insulin Lispro 100 UNIT/ML INSULN.PEN 7 UNIT SC (09:09)
[2020-10-15 11:30] VITALS: RESP 18; O2SAT 98
[2020-10-15] MEDS: DAKIN'S SOL HALF STRENGTH (=0.25%) 1 APPLIC TOPICAL (12:34)
[2020-10-15] MEDS: Insulin Lispro 100 UNIT/ML INSULN.PEN 10 UNIT SC ×2 (12:35→17:21)
[2020-10-15] MEDS: Lidocaine 5% Patch 2 PATCH TOPICAL (14:04)
[2020-10-15 14:06] LABS: Bedside Glucose 151 mg/dL (70-110)
[2020-10-15 16:00] VITALS: BP 126/48; PULSE 86; RESP 16; TEMP 36.9; O2SAT 100
[2020-10-15] MEDS: Acetaminophen 500 MG Tablet 1000 MG PO (16:11)
[2020-10-15 17:31] LABS: Bedside Glucose 206 mg/dL (70-110)
--- NOTE | 2020-10-15 23:08 | NURSING ---
Pt sleeping. Glucerna not given. Plan to leave patch on as initial application was less than 12 hours ago.
[2020-10-15 23:41] LABS: Bedside Glucose 145 mg/dL (70-110)
[2020-10-16] MEDS: HYDROmorphone 2 MG TABLET PO ×5 (00:43→17:34)
[2020-10-16 05:21] VITALS: BP 140/52; PULSE 81; RESP 16; TEMP 37
[2020-10-16] MEDS: Lidocaine 5% Patch 2 PATCH TOPICAL (05:23)
[2020-10-16] MEDS: Glucerna Shake 120 ML LIQUID PO ×4 (05:23→20:36)
[2020-10-16] MEDS: Lisinopril 40 MG Tablet PO (05:25)
[2020-10-16] MEDS: amLODIPine 10 MG Tablet PO (05:25)
[2020-10-16] MEDS: Polyethylene Glycol 3350 17 GM PACKET PO (05:42)
--- NOTE | 2020-10-16 05:42 | NURSING ---
Pt requests only one Lidoderm patch. Does not think patch afforded any relief. In no acute distress. Will continue to monitor.
[2020-10-16 06:25] LABS: Bedside Glucose 147 mg/dL (70-110)
[2020-10-16] MEDS: oxyCODONE 5 MG Tablet 10 MG PO ×3 (07:03→20:19)
[2020-10-16] MEDS: Gabapentin 300 MG Capsule PO ×3 (08:37→17:34)
[2020-10-16] MEDS: Ascorbic Acid 500 MG Tablet PO ×2 (08:37→17:34)
[2020-10-16] MEDS: Insulin Lispro 100 UNIT/ML INSULN.PEN 10 UNIT SC ×3 (08:37→17:34)
[2020-10-16] MEDS: Juven (unflavored) Packet 1 PACKET PO ×2 (08:37→17:34)
[2020-10-16] MEDS: Iron Polysaccharide Complex 150 MG CAPSULE PO ×2 (09:44→20:42)
[2020-10-16 12:45] LABS: Bedside Glucose 190 mg/dL (70-110)
[2020-10-16 16:25] VITALS: BP 124/77; PULSE 88; RESP 18; TEMP 36.6; O2SAT 97
[2020-10-16 17:21] LABS: Bedside Glucose 210 mg/dL (70-110)
[2020-10-16] MEDS: DAKIN'S SOL HALF STRENGTH (=0.25%) 1 APPLIC TOPICAL (17:28)
[2020-10-16] MEDS: Acetaminophen 500 MG Tablet 1000 MG PO (20:19)
[2020-10-16 21:25] LABS: Bedside Glucose 243 mg/dL (70-110)
[2020-10-17] MEDS: HYDROmorphone 2 MG TABLET PO ×5 (02:58→22:20)
--- NOTE | 2020-10-17 03:30 | NURSING ---
Wound care completed per dr order d/t heavily soiled dressing to lt buttock/gluteal cleft, posterior thigh, and groin. Drainage serosanguinous and thick, dark yellow. Slightlt malodorous. Pt on hands and knees in bed d/t pain associated w/ wound. Wound irrigated w/ sterile water and pat dry. One roll of kerlex moistened w/ Dakins solution applied to wound bed. Covered w/ three ABD pads, secured w/ paper tape, wrapped w/ roll gauze from base of distal end of wound to groin, securing kerlex w/ additional paper tape. Pt tolerated well and reports some relief of nursing pain due to roll gauze wrapped over dressing. All linens changed d/t soiling fro wound drainage.
[2020-10-17] MEDS: oxyCODONE 5 MG Tablet 10 MG PO ×3 (04:17→14:17)
[2020-10-17] MEDS: Acetaminophen 500 MG Tablet 1000 MG PO ×2 (04:18→17:32)
[2020-10-17] MEDS: DAKIN'S SOL HALF STRENGTH (=0.25%) 1 APPLIC TOPICAL (04:19)
[2020-10-17 06:15] VITALS: BP 131/40; PULSE 79; RESP 16; TEMP 36.2; O2SAT 97
[2020-10-17] MEDS: amLODIPine 10 MG Tablet PO (06:18)
[2020-10-17] MEDS: Lisinopril 40 MG Tablet PO (06:19)
[2020-10-17 06:21] LABS: Bedside Glucose 154 mg/dL (70-110)
[2020-10-17] MEDS: Polyethylene Glycol 3350 17 GM PACKET PO (06:27)
[2020-10-17 07:39] LABS: Absolute Lymphocyte Count 2.14 X10^3/uL (0.83-4.51); Absolute Neutrophil Count 6.4 X10^3/uL (2.0-7.7); Basophil# 0.06 X10^3/uL; Basophil% 0.6 % (0-1); Eosinophil# 0.14 X10^3/uL; Eosinophils% 1.5 % (0-5); Hematocrit 25.4 % (40-54); Lymphocyte # 2.14 X10^3/ul (0.83-4.51); Lymphocyte % 22.9 % (19-41); Mean Corp Hgb Conc 31.5 g/dL (32-36); Mean Corpuscular Hgb 27.4 pg (27.0-32.0); Mean Platelet Vol. 8.9 fl (6.2-12.0); Monocyte# 0.61 X10^3/uL; Monocyte% 6.5 % (0-10); NRBC Flagged by Analyzer 0 % (0-5); Neutrophil # 6.35 X10^3/uL (2.7-7.7); Neutrophil % 68.1 % (47-70); Platelet Count 356 K/mm3 (150-450); RBC Distribution Width CV 14.5 % (11.6-14.6); RBC Distribution Width SD 46.1 fl (35.1-43.9); Red Blood Count 2.92 M/mm3 (4.6-6.2); White Blood Count 9.3 K/mm3 (4.4-11.0)
[2020-10-17 07:51] LABS: Anion Gap 5 (5-15); BUN 33 mg/dL (7-18); BUN/Creat Ratio 26.4 RATIO (10-20); Chloride 102 mmol/L (98-107); Creatinine, Serum 1.25 mg/dL (0.70-1.30); EST Glomerular Filtration Rate 63 mL/min (>60); Est Glom Filt Rate - Afr Amer 77 mL/min (>60); Estimated Creatinine Clearance 63.08 ml/min; Glucose 277 mg/dL (74-106); Potassium 4.8 mmol/L (3.5-5.1); Sodium Level 133 mmol/L (136-145)
[2020-10-17] MEDS: Gabapentin 300 MG Capsule PO ×3 (08:22→17:08)
[2020-10-17] MEDS: Juven (unflavored) Packet 1 PACKET PO ×2 (08:22→17:08)
[2020-10-17] MEDS: Ascorbic Acid 500 MG Tablet PO ×2 (08:22→17:08)
[2020-10-17] MEDS: Insulin Lispro 100 UNIT/ML INSULN.PEN 10 UNIT SC ×3 (08:23→17:32)
[2020-10-17] MEDS: Iron Polysaccharide Complex 150 MG CAPSULE PO ×2 (09:48→22:20)
[2020-10-17 10:30] VITALS: RESP 18
[2020-10-17 11:21] LABS: Bedside Glucose 190 mg/dL (70-110)
[2020-10-17] MEDS: Glucerna Shake 120 ML LIQUID PO ×3 (12:16→22:20)
[2020-10-17 14:51] VITALS: BP 109/87; PULSE 76; RESP 16; TEMP 36.3; O2SAT 97
[2020-10-17 16:26] LABS: Bedside Glucose 210 mg/dL (70-110)
[2020-10-17 22:11] LABS: Bedside Glucose 192 mg/dL (70-110)
[2020-10-18 06:50] VITALS: BP 138/37; PULSE 76; RESP 16; TEMP 36.6; O2SAT 97
[2020-10-18] MEDS: Glucerna Shake 120 ML LIQUID PO ×4 (06:51→20:44)
[2020-10-18] MEDS: Polyethylene Glycol 3350 17 GM PACKET PO (06:52)
[2020-10-18] MEDS: amLODIPine 10 MG Tablet PO (06:52)
[2020-10-18] MEDS: Lisinopril 40 MG Tablet PO (06:53)
[2020-10-18 07:01] LABS: Bedside Glucose 214 mg/dL (70-110)
[2020-10-18] MEDS: HYDROmorphone 2 MG TABLET PO ×3 (07:01→17:37)
[2020-10-18] MEDS: oxyCODONE 5 MG Tablet 10 MG PO ×2 (08:33→19:48)
[2020-10-18] MEDS: Gabapentin 300 MG Capsule PO ×3 (08:34→17:34)
[2020-10-18] MEDS: Juven (unflavored) Packet 1 PACKET PO ×2 (08:34→17:34)
[2020-10-18] MEDS: Ascorbic Acid 500 MG Tablet PO ×2 (08:35→17:35)
[2020-10-18] MEDS: Insulin Lispro 100 UNIT/ML INSULN.PEN 10 UNIT SC ×3 (08:36→17:34)
[2020-10-18 10:41] LABS: Bedside Glucose 193 mg/dL (70-110)
[2020-10-18] MEDS: Iron Polysaccharide Complex 150 MG CAPSULE PO ×2 (11:14→20:45)
[2020-10-18] MEDS: DAKIN'S SOL HALF STRENGTH (=0.25%) 1 APPLIC TOPICAL (14:06)
[2020-10-18 14:11] VITALS: BP 120/51; PULSE 86; RESP 16; TEMP 36.4; O2SAT 96
--- NOTE | 2020-10-18 15:52 | WOUNDNOTE ---
wound photo: left buttock/posterior thigh
--- NOTE | 2020-10-18 15:53 | WOUNDNOTE ---
wound photo: left groin
[2020-10-18 17:10] LABS: Bedside Glucose 170 mg/dL (70-110)
[2020-10-18 21:25] LABS: Bedside Glucose 274 mg/dL (70-110)
[2020-10-18 23:01] VITALS: PULSE 90; RESP 18; O2SAT 99
[2020-10-19] MEDS: HYDROmorphone 2 MG TABLET PO ×5 (01:45→22:31)
[2020-10-19] MEDS: Glucerna Shake 120 ML LIQUID PO ×4 (04:58→20:24)
[2020-10-19] MEDS: Polyethylene Glycol 3350 17 GM PACKET PO (05:07)
[2020-10-19] MEDS: DAKIN'S SOL HALF STRENGTH (=0.25%) 1 APPLIC TOPICAL (05:08)
[2020-10-19 05:20] VITALS: BP 146/46; PULSE 74; RESP 16
--- NOTE | 2020-10-19 05:25 | NURSING ---
pt. observed self-removing dressing, requests new dressing at this time. Dressing applied to buttock/groin area per order, pt. tolerated well. No distress observed or reported. Call light in reach.
[2020-10-19] MEDS: Lisinopril 40 MG Tablet PO (05:28)
[2020-10-19] MEDS: amLODIPine 10 MG Tablet PO (05:28)
[2020-10-19 06:00] LABS: Hematocrit 27.1 % (40-54); Hemoglobin 8.4 g/dL (13.0-16.5)
[2020-10-19 06:31] LABS: Bedside Glucose 156 mg/dL (70-110)
[2020-10-19] MEDS: oxyCODONE 5 MG Tablet 10 MG PO ×2 (07:35→20:25)
[2020-10-19] MEDS: Ascorbic Acid 500 MG Tablet PO ×2 (08:38→17:45)
[2020-10-19] MEDS: Insulin Lispro 100 UNIT/ML INSULN.PEN 13 UNIT SC ×3 (08:38→17:44)
[2020-10-19] MEDS: Juven (unflavored) Packet 1 PACKET PO ×2 (08:38→17:45)
[2020-10-19] MEDS: Gabapentin 300 MG Capsule PO ×3 (08:38→17:45)
[2020-10-19] MEDS: Iron Polysaccharide Complex 150 MG CAPSULE PO ×2 (10:15→20:34)
--- NOTE | 2020-10-19 11:30 | NURSING ---
Addendum entered by Carina Mendes 10/19/20 13:40: Back from appointment. Brings lunch from [employer]. Eating burrito at this time. Insulin given at this time. Original Note: Out with to go to chirpractor appointment.
[2020-10-19 13:46] LABS: Bedside Glucose 102 mg/dL (70-110)
[2020-10-19 16:50] VITALS: BP 130/56; PULSE 79; RESP 16; TEMP 35.8; O2SAT 97
[2020-10-19 17:10] LABS: Bedside Glucose 168 mg/dL (70-110)
[2020-10-19] MEDS: Acetaminophen 500 MG Tablet 1000 MG PO (20:24)
[2020-10-19 21:26] LABS: Bedside Glucose 169 mg/dL (70-110)
--- NOTE | 2020-10-19 22:30 | NURSING ---
Dressing falling apart and coming off. Cleansed wounds with sterile NS, applied dakins moistened gauze to wound bed, covered with ABD pads and secured with tape. Patient tolerated well.
[2020-10-20] MEDS: amLODIPine 10 MG Tablet PO (06:28)
[2020-10-20] MEDS: Lisinopril 40 MG Tablet PO (06:28)
[2020-10-20] MEDS: Lidocaine 5% Patch 2 PATCH TOPICAL (06:29)
[2020-10-20] MEDS: HYDROmorphone 2 MG TABLET PO ×4 (06:33→18:23)
[2020-10-20] MEDS: Polyethylene Glycol 3350 17 GM PACKET PO (06:36)
[2020-10-20] MEDS: Glucerna Shake 120 ML LIQUID PO ×4 (06:36→21:45)
[2020-10-20 07:05] LABS: Bedside Glucose 181 mg/dL (70-110)
[2020-10-20] MEDS: Ascorbic Acid 500 MG Tablet PO ×2 (08:49→17:11)
[2020-10-20] MEDS: Gabapentin 300 MG Capsule PO ×3 (08:49→17:11)
[2020-10-20] MEDS: Juven (unflavored) Packet 1 PACKET PO ×2 (08:49→17:11)
[2020-10-20] MEDS: Insulin Lispro 100 UNIT/ML INSULN.PEN 13 UNIT SC ×3 (08:51→17:25)
[2020-10-20] MEDS: Iron Polysaccharide Complex 150 MG CAPSULE PO ×2 (10:16→21:46)
[2020-10-20 10:46] LABS: Bedside Glucose 132 mg/dL (70-110)
[2020-10-20] MEDS: DAKIN'S SOL HALF STRENGTH (=0.25%) 1 APPLIC TOPICAL (11:37)
[2020-10-20 11:44] VITALS: PULSE 103; RESP 20; O2SAT 98
[2020-10-20 15:26] VITALS: BP 145/64; PULSE 103; RESP 20; TEMP 36.8; O2SAT 98
[2020-10-20] MEDS: oxyCODONE 5 MG Tablet 10 MG PO (15:43)
[2020-10-20] MEDS: Acetaminophen 500 MG Tablet 1000 MG PO (15:43)
--- NOTE | 2020-10-20 15:50 | CASEMGMT ---
Social Work This social and political studies professor updated patient that continued stay was approved by insurance with next update being 10/26. Patient voiced understanding Will continue to follow. Nico GOOD, BERNADETTE-S
[2020-10-20 16:50] LABS: Bedside Glucose 108 mg/dL (70-110)
[2020-10-20 22:16] LABS: Bedside Glucose 126 mg/dL (70-110)
--- NOTE | 2020-10-21 00:15 | NURSING ---
Patient asked nurse to check dressing, said some pieces were falling out. Dressing coming off, removed dressing and cleansed wounds w/ NS. Re-applied dakins moistened gauze, covered w/ abds, secured w/ tape.
[2020-10-21] MEDS: HYDROmorphone 2 MG TABLET PO ×3 (00:38→18:11)
[2020-10-21 05:48] LABS: Hematocrit 26.5 % (40-54); Hemoglobin 8.1 g/dL (13.0-16.5)
[2020-10-21 06:13] VITALS: BP 115/52; PULSE 80
[2020-10-21] MEDS: amLODIPine 10 MG Tablet PO (06:14)
[2020-10-21] MEDS: Lisinopril 40 MG Tablet PO (06:14)
[2020-10-21] MEDS: Glucerna Shake 120 ML LIQUID PO ×4 (06:19→20:03)
[2020-10-21] MEDS: Polyethylene Glycol 3350 17 GM PACKET PO (06:19)
[2020-10-21] MEDS: DAKIN'S SOL HALF STRENGTH (=0.25%) 1 APPLIC TOPICAL (06:20)
[2020-10-21 06:21] LABS: Bedside Glucose 185 mg/dL (70-110)
[2020-10-21 06:39] VITALS: BP 156/71; PULSE 82
[2020-10-21] MEDS: Insulin Lispro 100 UNIT/ML INSULN.PEN 13 UNIT SC ×3 (08:45→18:06)
[2020-10-21] MEDS: Juven (unflavored) Packet 1 PACKET PO ×2 (08:46→18:07)
[2020-10-21] MEDS: Iron Polysaccharide Complex 150 MG CAPSULE PO ×2 (08:46→20:02)
[2020-10-21] MEDS: Gabapentin 300 MG Capsule PO ×3 (08:46→18:08)
[2020-10-21] MEDS: Ascorbic Acid 500 MG Tablet PO ×2 (08:46→18:08)
[2020-10-21 11:04] LABS: Bedside Glucose 117 mg/dL (70-110)
[2020-10-21] MEDS: oxyCODONE 5 MG Tablet 10 MG PO ×2 (11:17→20:00)
[2020-10-21 12:06] VITALS: BP 145/62; PULSE 84; RESP 16; TEMP 35.7; O2SAT 97
--- NOTE | 2020-10-21 13:46 | PCM.PN.SRG ---
Subjective Subjective Postop day #22 from 1. Surgical preparation left perianal area with excision hidradenitis abscess (144 cm2). 2. Surgical preparation left posterior thigh with incision and drainage and excisional debridement hidradenitis abscess (96 cm2). Sitting up in bed. States his pain is better controlled today. The abdominal pain is starting to improve. He states he is still getting white drainage from his scrotum/base of penis/right groin area. He states his is wanting him to go home. He is not sure if he is ready to go home due to all the drainage he is having from his left posterior thigh wound. Objective Data Objective Data Vital Signs: Vital Signs Temp Pulse Resp BP Pulse Ox 96.2 F L 84 16 145/62 H 97 10/21/20 12:06 10/21/20 12:06 10/21/20 12:06 10/21/20 12:10/21/20 12:06 Oxygen Delivery Method Room Air Weight: 142 lb 7 oz Body Mass Index (BMI) 22.8 Intake & Output: Intake and Output for Last 24 Hours 10/19/20 10/20/20 10/21/20 23:59 23:59 23:59 Intake Total 240 / 240 1200 / 1200 360 / 360 Balance 240 / 240 1200 / 1200 360 / 360 Medical Nutrition Assessment Dietitian: Malnutrition Criteria Met Start: 10/04/20 12:24 Freq: Status: Active Protocol: Document 10/04/20 12:24 AG (Rec: 10/04/20 12:25 [id number]) Nutrition Malnutrition Evidence of Malnutrition Exists Yes Malnutrition (severe): Chronic Evidenced By Suboptimal Energy Intake ( Severe),Weight Loss (Severe) Clinical Problem Chronic Disease or Condition Related Malnutrition Etiology severe malnutrition r/t inadequate energy intake w/ increased nutrient need d/t nonhealing wound Signs/Symptoms as evidenced by estimated PO intake meeting <50% of estimated nutritional needs >3 months, unintentional wt loss of 12.8#/8% wt loss x 3-4 months Status Active Problem Recommendation Dietitian Recommendations/Changes continue CHO controlled diet; will add 120mL ensure enlive 4x/day and Curtis BID for additional calories/protein. Lab / Micro Data Result Diagrams: 10/21/20 05:22 10/17/20 07:25 Labs: Laboratory Results - last 24 hr 10/20/20 16:40: POC Glucose 108 10/20/20 22:09: POC Glucose 126 H 10/21/20 05:22: Hgb 8.1 L, Hct 26.5 L 10/21/20 06:07: POC Glucose 185 H 10/21/20 10:52: POC Glucose 117 H Physical Exam Const oriented x3 and no apparent distress Resp normal respiratory effort Cardio regular rate GI soft to palpation and non-tender GI Narrative: Colostomy bag intact. Extremity full ROM Skin Wound Narrative: Left posterior thigh and left perianal area ulcer dressing intact. It is saturated with serosanguineous drainage at the bottom. Pictures of ulcer reviewed from earlier this week. Neuro oriented x3 and CN's II-XII intact bilaterally Psych mental status grossly normal Assessment & Plan Assessment/Plan (1) Open wound of left buttock with complication: QUALIFIERS: Encounter type: initial encounter Qualified Code(s): S31.829A - Unspecified open wound of left buttock, initial encounter (2) Complicated open wound of left thigh: (3) Debility: (4) Diabetes mellitus: QUALIFIERS: Diabetes mellitus type: type 2 (5) Acute postoperative anemia due to expected blood loss: (6) Malnutrition: QUALIFIERS: Malnutrition type: protein-calorie malnutrition Protein-calorie malnutrition severity: moderate Qualified Code(s): E44.0 - Moderate protein-calorie malnutrition (7) Infection of scrotum: (8) Hidradenitis suppurativa of anus: (9) Hydradenitis: PLAN: Pain is better controlled. He states that Dilaudid works but makes him sleepy. Percocet takes the edge off of his pain but he continues to have pain while taking it. Dressing changes are Dakin's 0.25% moistened gauze/kerlix covered with ABDs daily and prn. Wounds need to be washed with soap and water daily. Will order an MRI due to continued pain and drainage of hidradenitis of scrotum, rectum, base of penis and groin areas. Unable to find where he has ever had a CT or MRI in the past of his pelvis. Hgb 8.1 today. Acute postoperative anemia due to expected blood loss. He also has a history of chronic anemia. He is on Iron supplementation. Will continue to monitor. Prealbumin 10.8 on 10/01/20. Encouraged increased protein intake with supplementation. His would like him to go home, he states he is not sure he is ready to go home due to the size of his wound and the amount of drainage he is experiencing. His concern is it will be too much on his . When he is discharged from TCU, he will need to follow up with me at the wound healing center. Charges/Coding Procedures Integumentary [id number]: [id number] Global Visit
--- NOTE | 2020-10-21 15:29 | NURSING ---
. Precert called for authorization of MRI of pelvis that was ordered by Antonella Azul NP. MRI to go to clincial review. Papers filled out and faxed to [phone].
[2020-10-21 17:15] LABS: Bedside Glucose 122 mg/dL (70-110)
[2020-10-21] MEDS: Acetaminophen 500 MG Tablet 1000 MG PO (20:00)
[2020-10-21 21:35] LABS: Bedside Glucose 245 mg/dL (70-110)
--- NOTE | 2020-10-21 22:49 | NURSING ---
pt's Blood Sugar 224 pt educated on importance of controlling Blood sugar. Pt wants to wait to see if Blood sugar comes down in the morning adv him I would update Dr. Daniel of his Blood sugar patient refused.
--- NOTE | 2020-10-21 22:51 | NURSING ---
Pt took shower this evening dressing was removed. Reapplied dressing after shower applied Dakins soaked gauze and covered with abds.
[2020-10-22] MEDS: HYDROmorphone 2 MG TABLET PO ×3 (06:20→19:49)
[2020-10-22] MEDS: Glucerna Shake 120 ML LIQUID PO ×4 (06:20→23:03)
[2020-10-22] MEDS: Lisinopril 40 MG Tablet PO (06:21)
[2020-10-22] MEDS: Lidocaine 5% Patch 2 PATCH TOPICAL (06:22)
[2020-10-22] MEDS: amLODIPine 10 MG Tablet PO (06:23)
[2020-10-22 06:29] VITALS: BP 132/55; PULSE 72
[2020-10-22] MEDS: Polyethylene Glycol 3350 17 GM PACKET PO (06:36)
[2020-10-22 06:50] LABS: Bedside Glucose 106 mg/dL (70-110)
[2020-10-22] MEDS: Ascorbic Acid 500 MG Tablet PO ×2 (08:42→16:19)
[2020-10-22] MEDS: Juven (unflavored) Packet 1 PACKET PO ×2 (08:42→16:19)
[2020-10-22] MEDS: Gabapentin 300 MG Capsule PO ×3 (08:42→16:22)
[2020-10-22] MEDS: Iron Polysaccharide Complex 150 MG CAPSULE PO ×2 (08:42→23:03)
[2020-10-22] MEDS: Acetaminophen 500 MG Tablet 1000 MG PO (08:48)
[2020-10-22] MEDS: oxyCODONE 5 MG Tablet 10 MG PO (08:48)
[2020-10-22] MEDS: DAKIN'S SOL HALF STRENGTH (=0.25%) 1 APPLIC TOPICAL (10:30)
[2020-10-22 11:21] LABS: Bedside Glucose 286 mg/dL (70-110)
[2020-10-22] MEDS: Insulin Lispro 100 UNIT/ML INSULN.PEN 13 UNIT SC (12:18)
[2020-10-22 16:00] VITALS: BP 119/63; PULSE 79; RESP 18; TEMP 36.5; O2SAT 98
[2020-10-22 16:11] LABS: Bedside Glucose 109 mg/dL (70-110)
[2020-10-22 20:10] VITALS: PULSE 89; RESP 18; O2SAT 99
[2020-10-22 21:46] LABS: Bedside Glucose 167 mg/dL (70-110)
[2020-10-23] MEDS: HYDROmorphone 2 MG TABLET PO ×3 (02:50→21:33)
[2020-10-23] MEDS: Glucerna Shake 120 ML LIQUID PO ×4 (06:31→21:31)
[2020-10-23] MEDS: Polyethylene Glycol 3350 17 GM PACKET PO (06:32)
[2020-10-23] MEDS: Lisinopril 40 MG Tablet PO (06:34)
[2020-10-23] MEDS: amLODIPine 10 MG Tablet PO (06:34)
[2020-10-23 06:36] LABS: Bedside Glucose 110 mg/dL (70-110)
--- NOTE | 2020-10-23 06:40 | NURSING ---
Pt. declined Lantus this AM despite education, pt. states I don't take insulin at home, I don't need to take it here, my blood sugar was fine this morning.
[2020-10-23 07:12] LABS: Hematocrit 27.6 % (40-54); Hemoglobin 8.5 g/dL (13.0-16.5)
[2020-10-23] MEDS: Iron Polysaccharide Complex 150 MG CAPSULE PO ×2 (08:11→21:31)
[2020-10-23] MEDS: Juven (unflavored) Packet 1 PACKET PO ×2 (08:11→16:32)
[2020-10-23] MEDS: Ascorbic Acid 500 MG Tablet PO ×2 (08:11→16:32)
[2020-10-23] MEDS: Gabapentin 300 MG Capsule PO ×3 (08:12→16:31)
[2020-10-23] MEDS: oxyCODONE 5 MG Tablet 10 MG PO (08:16)
[2020-10-23 11:11] LABS: Bedside Glucose 244 mg/dL (70-110)
[2020-10-23] MEDS: DAKIN'S SOL HALF STRENGTH (=0.25%) 1 APPLIC TOPICAL (11:45)
[2020-10-23] MEDS: Insulin Lispro 100 UNIT/ML INSULN.PEN 13 UNIT SC (12:30)
[2020-10-23 14:02] VITALS: BP 125/62; PULSE 73; RESP 18; TEMP 36.2; O2SAT 98
[2020-10-23 16:20] LABS: Bedside Glucose 114 mg/dL (70-110)
[2020-10-23 21:36] LABS: Bedside Glucose 200 mg/dL (70-110)
--- NOTE | 2020-10-23 22:04 | NURSING ---
Pt. 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 states it wasn't insulin but it was for my diabetes but it didn't work and I kept cutting it back because it would make me go days without eating. Pt. states nothing works and I don't want insulin. Pt reports my blood sugars are fine at home, I don't even need to check them. updated via telephone of patient refusal. New order to discontinue Humalog and Lantus due to patient refusal.
[2020-10-24] MEDS: Glucerna Shake 120 ML LIQUID PO ×4 (05:27→22:33)
[2020-10-24] MEDS: HYDROmorphone 2 MG TABLET PO ×2 (05:27→22:33)
[2020-10-24] MEDS: Polyethylene Glycol 3350 17 GM PACKET PO (05:27)
[2020-10-24] MEDS: Lisinopril 40 MG Tablet PO (05:28)
[2020-10-24] MEDS: amLODIPine 10 MG Tablet PO (05:28)
[2020-10-24 05:57] LABS: Absolute Lymphocyte Count 1.94 X10^3/uL (0.83-4.51); Absolute Neutrophil Count 6.7 X10^3/uL (2.0-7.7); Basophil# 0.04 X10^3/uL; Basophil% 0.4 % (0-1); Eosinophil# 0.22 X10^3/uL; Eosinophils% 2.3 % (0-5); Hematocrit 26.6 % (40-54); Hemoglobin 8.3 g/dL (13.0-16.5); Lymphocyte # 1.94 X10^3/ul (0.83-4.51); Lymphocyte % 20.1 % (19-41); Mean Corp Hgb Conc 31.2 g/dL (32-36); Mean Corpuscular Hgb 27.3 pg (27.0-32.0); Mean Corpuscular Volume 87.5 fL (80-94); Mean Platelet Vol. 8.5 fl (6.2-12.0); Monocyte# 0.67 X10^3/uL; Monocyte% 6.9 % (0-10); NRBC Flagged by Analyzer 0 % (0-5); Neutrophil # 6.74 X10^3/uL (2.7-7.7); Neutrophil % 69.7 % (47-70); Platelet Count 350 K/mm3 (150-450); RBC Distribution Width CV 14.3 % (11.6-14.6); RBC Distribution Width SD 45.9 fl (35.1-43.9); Red Blood Count 3.04 M/mm3 (4.6-6.2); White Blood Count 9.7 K/mm3 (4.4-11.0)
[2020-10-24 06:11] LABS: Bedside Glucose 139 mg/dL (70-110)
[2020-10-24 06:20] LABS: Anion Gap 5 (5-15); BUN 31 mg/dL (7-18); BUN/Creat Ratio 27.9 RATIO (10-20); Calcium,Total 9.1 mg/dL (8.5-10.1); Chloride 104 mmol/L (98-107); Creatinine, Serum 1.11 mg/dL (0.70-1.30); EST Glomerular Filtration Rate 73 mL/min (>60); Est Glom Filt Rate - Afr Amer 88 mL/min (>60); Glucose 112 mg/dL (74-106); Potassium 5.4 mmol/L (3.5-5.1); Sodium Level 137 mmol/L (136-145)
[2020-10-24] MEDS: Sodium Polystyrene Sulfonate 15 GM/60 ML UDC 30 GM PO (08:21)
[2020-10-24] MEDS: Gabapentin 300 MG Capsule PO ×3 (08:23→16:07)
[2020-10-24] MEDS: Ascorbic Acid 500 MG Tablet PO ×2 (08:23→16:07)
[2020-10-24] MEDS: Juven (unflavored) Packet 1 PACKET PO ×2 (08:24→16:07)
[2020-10-24] MEDS: oxyCODONE 5 MG Tablet 10 MG PO ×2 (09:49→16:10)
[2020-10-24] MEDS: Iron Polysaccharide Complex 150 MG CAPSULE PO ×2 (09:50→22:32)
[2020-10-24] MEDS: Acetaminophen 500 MG Tablet 1000 MG PO ×2 (09:50→16:11)
--- NOTE | 2020-10-24 10:48 | WOUNDNOTE ---
Ostomy appliance changed with . removed the appliance. small amount of unformed brown stool noted in the appliance. some mild irritation noted to the peristomal skin. washed the skin with warm water. pat dry. applied a new 2 piece flat [place] appliance with a small amount of stoma paste. pt tolerated well. and patient deny questions. there is a prescription on the front of the chart for ostomy supplies once patient is discharged home which feels will be later this week.
--- NOTE | 2020-10-24 10:51 | WOUNDNOTE ---
wound photo: left buttock/posterior thigh
--- NOTE | 2020-10-24 10:52 | WOUNDNOTE ---
wound photo: left groin
[2020-10-24] MEDS: DAKIN'S SOL HALF STRENGTH (=0.25%) 1 APPLIC TOPICAL (11:23)
[2020-10-24 15:46] VITALS: BP 123/63; PULSE 95; RESP 18; TEMP 36.2; O2SAT 98
--- NOTE | 2020-10-24 16:32 | NURSING ---
Called [facility] to check on pre-cert for MRI of pelvis, it is still under review at this time.
[2020-10-24 16:56] LABS: Bedside Glucose 271 mg/dL (70-110)
[2020-10-24 17:16] LABS: Bedside Glucose 197 mg/dL (70-110)
[2020-10-24 21:27] LABS: Bedside Glucose 152 mg/dL (70-110)
[2020-10-24 22:45] VITALS: PULSE 68; RESP 16; O2SAT 98
--- NOTE | 2020-10-24 22:45 | NURSING ---
Dressing coming off and packing fell out, removed remaining pieces of dressing and cleansed wounds with NS. Applied dakins moistened gauze covered by abd pads and secured with tape.
[2020-10-25 05:38] LABS: Anion Gap 4 (5-15); BUN 37 mg/dL (7-18); BUN/Creat Ratio 30.3 RATIO (10-20); Calcium,Total 8.9 mg/dL (8.5-10.1); Chloride 104 mmol/L (98-107); Creatinine, Serum 1.22 mg/dL (0.70-1.30); EST Glomerular Filtration Rate 65 mL/min (>60); Est Glom Filt Rate - Afr Amer 79 mL/min (>60); Estimated Creatinine Clearance 61.05 ml/min; Glucose 132 mg/dL (74-106); Potassium 5.4 mmol/L (3.5-5.1); Sodium Level 134 mmol/L (136-145)
[2020-10-25] MEDS: HYDROmorphone 2 MG TABLET PO ×2 (05:42→21:19)
[2020-10-25] MEDS: Glucerna Shake 120 ML LIQUID PO ×4 (05:43→21:16)
[2020-10-25] MEDS: Lisinopril 40 MG Tablet PO (05:44)
[2020-10-25] MEDS: amLODIPine 10 MG Tablet PO (05:44)
[2020-10-25] MEDS: Polyethylene Glycol 3350 17 GM PACKET PO (05:45)
[2020-10-25 06:36] LABS: Bedside Glucose 138 mg/dL (70-110)
[2020-10-25] MEDS: Ascorbic Acid 500 MG Tablet PO ×2 (08:28→17:37)
[2020-10-25] MEDS: Gabapentin 300 MG Capsule PO ×3 (08:28→17:37)
[2020-10-25] MEDS: Juven (unflavored) Packet 1 PACKET PO ×2 (08:28→17:36)
[2020-10-25 10:46] LABS: Bedside Glucose 326 mg/dL (70-110)
[2020-10-25] MEDS: DAKIN'S SOL HALF STRENGTH (=0.25%) 1 APPLIC TOPICAL (11:02)
[2020-10-25] MEDS: Iron Polysaccharide Complex 150 MG CAPSULE PO ×2 (11:02→21:17)
[2020-10-25] MEDS: oxyCODONE 5 MG Tablet 10 MG PO (11:12)
[2020-10-25] MEDS: Acetaminophen 500 MG Tablet 1000 MG PO (11:13)
[2020-10-25 13:21] VITALS: PULSE 84; RESP 18; O2SAT 98
[2020-10-25 15:29] VITALS: BP 119/57; PULSE 84; RESP 18; TEMP 37.2; O2SAT 98
--- NOTE | 2020-10-25 16:23 | NURSING ---
[employer] called asking for clinical information for MRI precert, information faxed to [phone]
[2020-10-25 17:01] LABS: Bedside Glucose 136 mg/dL (70-110)
[2020-10-25 21:31] LABS: Bedside Glucose 136 mg/dL (70-110)
[2020-10-26] MEDS: amLODIPine 10 MG Tablet PO (06:23)
[2020-10-26] MEDS: Polyethylene Glycol 3350 17 GM PACKET PO (06:23)
[2020-10-26] MEDS: Lisinopril 40 MG Tablet PO (06:23)
[2020-10-26] MEDS: Glucerna Shake 120 ML LIQUID PO ×4 (06:28→21:23)
[2020-10-26 06:31] LABS: Bedside Glucose 184 mg/dL (70-110)
[2020-10-26 06:32] VITALS: BP 117/56; PULSE 76
[2020-10-26] MEDS: Gabapentin 300 MG Capsule PO ×3 (07:47→17:13)
[2020-10-26] MEDS: Juven (unflavored) Packet 1 PACKET PO ×2 (07:47→17:13)
[2020-10-26] MEDS: Ascorbic Acid 500 MG Tablet PO ×2 (07:47→17:13)
[2020-10-26 08:52] LABS: Anion Gap 4 (5-15); BUN 31 mg/dL (7-18); BUN/Creat Ratio 25.4 RATIO (10-20); Calcium,Total 9.3 mg/dL (8.5-10.1); Chloride 103 mmol/L (98-107); Creatinine, Serum 1.22 mg/dL (0.70-1.30); EST Glomerular Filtration Rate 65 mL/min (>60); Est Glom Filt Rate - Afr Amer 79 mL/min (>60); Estimated Creatinine Clearance 60.97 ml/min; Glucose 225 mg/dL (74-106); Potassium 4.8 mmol/L (3.5-5.1); Sodium Level 135 mmol/L (136-145)
[2020-10-26] MEDS: Iron Polysaccharide Complex 150 MG CAPSULE PO ×2 (11:07→21:15)
[2020-10-26 11:11] LABS: Bedside Glucose 207 mg/dL (70-110)
--- NOTE | 2020-10-26 12:19 | CASEMGMT ---
Social Work Insurance issued LCD 10/27, DC 10/28. Spoke with patient about DC 10/28, explained appeal rights. Pt agreed to DC 10/28 with previously used [facility] for wound care/supplies. Referral made to [facility] SN. Pt's states can transport home. No DME needs. Plan: DC home with and [facility] SN 10/28 LATISHA BoseW
[2020-10-26] MEDS: DAKIN'S SOL HALF STRENGTH (=0.25%) 1 APPLIC TOPICAL (13:08)
[2020-10-26 15:56] LABS: Bedside Glucose 122 mg/dL (70-110)
[2020-10-26 16:00] VITALS: BP 125/59; PULSE 78; RESP 16; TEMP 36.6; O2SAT 98
--- NOTE | 2020-10-26 16:42 | NURSING ---
Addendum entered by Candida Llamas 10/26/20 18:42: Fax received with Authorization Number [id number]. Original Note: Called [facility] to check on status of pre-cert for MRI of pelvis. [facility] transferred this nurse to [facility] insurance d/t pending status of out of network. Talked with [facility] (ref # [id number]) and it is being reviewed by the medical management team. We are to call The medical Management team tomorrow to check for approval [id number].
--- NOTE | 2020-10-26 20:39 | DS.PCM_ITS ---
Providers Date of Admission: 10/03/20 Primary Care Physician: DEVONTE Zimmerman Consultations 10/04/20 06:31 Consult: Onc/Wound/landing worker Routine Comment: Reason for Consult:: new colostomy 10/10/20 07:52 Consult: Hospice / Palliative Care Routine Consulting Provider: [facility] Reason for Consult: Palliative for uncontrolled pain. EMERGENT Consult: Yes MD Notified: Yes Date Notified: 10/10/20 Time Notified: 07:52 Method of Notification: Verbal 10/11/20 09:03 Consult: Pain Management Routine Consulting Provider: Derrek Ramirez Reason for Consult: Uncontrolled pain EMERGENT Consult: No MD Notified: Yes Date Notified: 10/11/20 Time Notified: 09:03 Method of Notification: Verbal Reason For Visit: COLOSTOMY WOUND/NONHEALING WOUNDS Diagnosis Discharge Diagnosis (1) Open wound of left buttock with complication: Status: Acute Code(s): S31.829A - Unspecified open wound of left buttock, initial encounter Qualifiers: Encounter type: initial encounter Qualified Code(s): S31.829A - Unspecified open wound of left buttock, initial encounter (2) Complicated open wound of left thigh: Status: Acute Code(s): S71.102A - Unspecified open wound, left thigh, initial encounter (3) Debility: Status: Acute Code(s): R53.81 - Other malaise (4) Diabetes mellitus: Status: Acute Code(s): E11.9 - Type 2 diabetes mellitus without complications Qualifiers: Diabetes mellitus type: type 2 (5) Acute postoperative anemia due to expected blood loss: Status: Acute Code(s): D62 - Acute posthemorrhagic anemia (6) Malnutrition: Status: Chronic Code(s): E46 - Unspecified protein-calorie malnutrition Qualifiers: Malnutrition type: protein-calorie malnutrition Protein-calorie malnutrition severity: moderate Qualified Code(s): E44.0 - Moderate protein- calorie malnutrition (7) Infection of scrotum: Status: Chronic Code(s): N49.2 - Inflammatory disorders of scrotum (8) Hidradenitis suppurativa of anus: Status: Chronic Code(s): L73.2 - Hidradenitis suppurativa (9) Hydradenitis: Status: Chronic Code(s): L73.2 - Hidradenitis suppurativa Medications at Discharge Home Medications acetaminophen [Tylenol] 650 mg PO Q6H PRN PRN #0 tab 10/03/20 albuterol sulfate 2.5 mg INHALATION Q2H PRN PRN #0 ml 10/03/20 docusate sodium [DOK] 100 mg PO BID PRN PRN #0 cap 10/03/20 melatonin 3 mg PO QHS PRN PRN #0 tab 10/03/20 oxycodone 10 mg PO Q4H PRN PRN 3 Days #12 tab 10/03/20 polyethylene glycol 3350 17 g PO DAILY PRN #0 ea 10/03/20 amlodipine 10 mg PO DAILY 10/10/20 ascorbic acid (vitamin C) 500 mg PO BIDCM 10/10/20 cefdinir 300 mg PO Q12H 10/10/20 doxycycline hyclate 100 mg PO BID 10/10/20 ferrous sulfate [FeroSul] 325 mg PO 1200,1700 10/10/20 insulin glargine [Lantus Solostar U-100 Insulin] 5 units SUBCUT QHS 10/10/20 insulin lispro [Humalog KwikPen Insulin] See Protocol SUBCUT ACHS 10/10/20 lisinopril 40 mg PO DAILY 10/10/20 metronidazole [Flagyl] 500 mg PO TID 10/10/20 nicotine 21 mg TRANSDERMAL DAILY 10/10/20 sennosides-docusate sodium [Stool Softener-Stimulant Laxat] 2 tab PO BID 10/10/20 acetaminophen 1,000 mg PO Q6H PRN PRN #0 tab 10/26/20 amlodipine 10 mg PO DAILY 30 Days #30 tab 10/26/20 [id number] [Curtis (with collagen)] 1 packet PO BIDCM 30 Days #60 ea 10/26/20 ascorbic acid (vitamin C) 500 mg PO BIDCM #0 tab 10/26/20 gabapentin 300 mg PO TIDCM 30 Days #90 cap 10/26/20 hydromorphone 2 mg PO Q3H PRN PRN 7 Days #56 tab 10/26/20 lidocaine 2 patch TOPICAL DAILY 30 Days #60 ea 10/26/20 lisinopril 40 mg PO DAILY 30 Days #30 tab 10/26/20 melatonin 3 mg PO QHS PRN #0 tab 10/26/20 nicotine 21 mg TRANSDERMAL DAILY 30 Days #30 ea 10/26/20 oxycodone 10 mg PO Q4H PRN PRN 7 Days #84 tab 10/26/20 polyethylene glycol 3350 [HealthyLax] 17 g PO DAILY 30 Days #30 ea 10/26/20 polysaccharide iron complex [Ferrex 150] 150 mg PO BID@1000,2200 30 Days #60 cap 10/26/20 sodium hypochlorite [HySept] 1 applic TOPICAL DAILY 30 Days #500 ml 10/26/20 Hospital Course Operations - (Incision and Drainage buttock abscess.) Procedures None Summary of Care Provided Minutes Spent on Discharge: 35 Hospital Course: 55 year old male with below past medical history significant for hydradenitis suppurativa, hospitalized for left buttock cellulitis/abscess, underwent incision & drainage 09/29/[address] Smith, the diverting colostomy 10/01/[address] Osorio, admitted to TCU with debility, here for rehabilitation, strengthening, wound care, prior to discharge home with . Discharge home with 10/28/2020, [facility] SN. Physical Exam Const alert and oriented x3 General Appearance: cooperative HEENT normocephalic Eyes PERRL and EOMs intact bilaterally Neck supple, no JVD and no carotid bruits Resp normal respiratory effort, normal air movement and clear to auscultation bilaterally Cardio regular rate and regular rhythm GI normal to inspection, nondistended, normoactive bowel sounds, non-tender and non-distended Extremity normal capillary refill General Extremity: Negative for edema Skin Skin Narrative: Per wound nurse. General Skin Exam: no breakdown Psych affect normal Appearance: appropriate Medical Records Data Medical Nutrition Assessment Dietitian: Malnutrition Criteria Met Start: 10/04/20 12:24 Freq: Status: Active Protocol: Document 10/04/20 12:24 AG (Rec: 10/04/20 12:25 [id number]) Nutrition Malnutrition Evidence of Malnutrition Exists Yes Malnutrition (severe): Chronic Evidenced By Suboptimal Energy Intake ( Severe),Weight Loss (Severe) Clinical Problem Chronic Disease or Condition Related Malnutrition Etiology severe malnutrition r/t inadequate energy intake w/ increased nutrient need d/t nonhealing wound Signs/Symptoms as evidenced by estimated PO intake meeting <50% of estimated nutritional needs >3 months, unintentional wt loss of 12.8#/8% wt loss x 3-4 months Status Active Problem Recommendation Dietitian Recommendations/Changes continue CHO controlled diet; will add 120mL ensure enlive 4x/day and Curtis BID for additional calories/protein. Weight / BMI Weight Weight: 64.524 kg Body Mass Index (BMI) 22.8 ABG / Lab / Microbiology Data Result Diagrams: 10/24/20 05:20 10/26/20 08:32 Laboratory: Laboratory Results - last 24 hr 10/25/20 21:24: POC Glucose 136 H 10/26/20 06:28: POC Glucose 184 H 10/26/20 08:32: Sodium 135 L, Potassium 4.8, Chloride 103, Carbon Dioxide 28.0, Anion Gap 4 L, BUN 31 H, Creatinine 1.22, Estim Creat Clear Calc 60.97, Est GFR (MDRD) Af Amer 79, Est GFR (MDRD) Non-Af 65, BUN/Creatinine Ratio 25.4 H, Glucose 225 H, Calcium 9.3 10/26/20 11:08: POC Glucose 207 H 10/26/20 15:52: POC Glucose 122 H D/C Instructions Discharge Diet: No restrictions Discharge Activity: Return to Normal Activity and May Shower May resume sexual activity in: 4-6 weeks Weight Bearing Status: Weight bearing as tolerated Call your doctor if you observe: Fever of 101 or Higher, Inability to urinate, Inability to have a bowel movement, Shortness of breath, Dizziness, Fainting spells, Swelling in the ankles, Chest pain, Increased palpitations (irregular heartbeat) and Uncontrolled pain Additional Instructions: Discharge home with 10/28/2020, [facility] . Please Follow Up With: fatoumata When: 2 weeks. Meaningful Use Info Meaningful Use Diagnoses (Choose all that apply): None applicable Discharge Plan Admission Admit Date/Time: 10/03/20 15:05 Primary Reason for Your Visit: Debility. Attending Provider: Yogesh Daniel Chi Primary Care Provider: Adina Bhat NP Consulting Providers: Julia Tee ; Wai Mayer ; Abbi Seay ; Monica Munguia ; Michelle Renee ; Acacia Gaitan MEDICAL SECRETARY RECEPTIONIST ; Derrek Ramirez Instructions Additional Instructions / Restrictions: Discharge home with 10/28/2020, [facility] . Discharge Orders/Prescriptions Prescriptions: New acetaminophen 500 mg Tablet 1,000 mg PO Q6H PRN PRN (Reason: Pain Score 1-3) Qty: 0 RF: 0 ascorbic acid (vitamin C) 500 mg Tablet 500 mg PO BIDCM Qty: 0 RF: 0 amlodipine 10 mg Tablet 10 mg PO DAILY 30 Days Qty: 30 RF: 0 polysaccharide iron complex [Ferrex 150] 150 mg iron Capsule 150 mg PO BID@1000,2200 30 Days Qty: 60 RF: 0 hydromorphone 2 mg Tablet 2 mg PO Q3H PRN PRN (Reason: Pain Score 6-10) 7 Days Qty: 56 RF: 0 gabapentin 300 mg Capsule 300 mg PO TIDCM 30 Days Qty: 90 RF: 0 melatonin 3 mg Tablet 3 mg PO QHS PRN (Reason: Insomnia) Qty: 0 RF: 0 lidocaine 5 % Adhesive Patch,Medicated 2 patch topical DAILY 30 Days Qty: 60 RF: 0 lisinopril 40 mg Tablet 40 mg PO DAILY 30 Days Qty: 30 RF: 0 Curtis (with collagen) 7-7-1.5 gram Powder In Packet 1 packet PO BIDCM 30 Days Qty: 60 RF: 0 polyethylene glycol 3350 [HealthyLax] 17 gram Powder In Packet 17 g PO DAILY 30 Days Qty: 30 RF: 0 nicotine 21 mg/24 hr Patch 24 Hour 21 mg transdermal DAILY 30 Days Qty: 30 RF: 0 oxycodone 5 mg Tablet 10 mg PO Q4H PRN PRN (Reason: Pain Score 1-5) 7 Days Qty: 84 RF: 0 HySept 0.25 % Solution 1 applic topical DAILY 30 Days Qty: 500 RF: 0 No Action acetaminophen [Tylenol] 325 mg Tablet 650 mg PO Q6H PRN PRN (Reason: Pain Score 1-10/Temp > 100.7 F) Qty: 0 RF: 0 albuterol sulfate 2.5 mg /3 mL (0.083 %) Solution For Nebulization 2.5 mg inhalation Q2H PRN PRN (Reason: Shortness of Breath/Wheezing) Qty: 0 RF: 0 docusate sodium [DOK] 100 mg Capsule 100 mg PO BID PRN PRN (Reason: constipation) Qty: 0 RF: 0 melatonin 3 mg Tablet 3 mg PO QHS PRN PRN (Reason: Insomnia) Qty: 0 RF: 0 polyethylene glycol 3350 17 gram Powder In Packet 17 g PO DAILY PRN (Reason: Constipation) Qty: 0 RF: 0 oxycodone 5 mg Tablet 10 mg PO Q4H PRN PRN (Reason: Pain Score 4-5) 3 Days Qty: 12 RF: 0 doxycycline hyclate 100 mg capsule 100 mg PO BID RF: 0 ascorbic acid (vitamin C) 500 mg tablet 500 mg PO BIDCM RF: 0 amlodipine 10 mg tablet 10 mg PO DAILY RF: 0 ferrous sulfate [FeroSul] 325 mg (65 mg iron) tablet 325 mg PO 1200,1700 RF: 0 cefdinir 300 mg capsule 300 mg PO Q12H RF: 0 sennosides-docusate sodium [Stool Softener-Stimulant Laxat] 8.6-50 mg tablet 2 tab PO BID RF: 0 metronidazole [Flagyl] 500 mg tablet 500 mg PO TID RF: 0 nicotine 21 mg/24 hr patch 24 hour 21 mg transdermal DAILY RF: 0 lisinopril 40 mg tablet 40 mg PO DAILY RF: 0 insulin lispro [Humalog KwikPen Insulin] 100 unit/mL insulin pen See Protocol unit subcut ACHS RF: 0 Lantus Solostar U-100 Insulin 100 unit/mL (3 mL) insulin pen 5 units subcut QHS RF: 0 Referrals / Follow Up: Adina Bhat NP, MEDICAL SECRETARY RECEPTIONIST-C [Primary Care Provider] - Disposition Disposition (needs filled in before D/C Order can be placed): Home Health Service
[2020-10-26] MEDS: Acetaminophen 500 MG Tablet 1000 MG PO (21:23)
[2020-10-26] MEDS: oxyCODONE 5 MG Tablet 10 MG PO (21:23)
[2020-10-26 21:40] LABS: Bedside Glucose 277 mg/dL (70-110)
[2020-10-27] MEDS: Lisinopril 40 MG Tablet PO (05:38)
[2020-10-27] MEDS: Glucerna Shake 120 ML LIQUID PO ×4 (05:38→21:40)
[2020-10-27] MEDS: amLODIPine 10 MG Tablet PO (05:39)
[2020-10-27 05:41] VITALS: BP 133/50; PULSE 70
[2020-10-27] MEDS: Polyethylene Glycol 3350 17 GM PACKET PO (05:41)
[2020-10-27 06:35] LABS: Bedside Glucose 155 mg/dL (70-110)
[2020-10-27] MEDS: Gabapentin 300 MG Capsule PO ×3 (08:04→16:18)
[2020-10-27] MEDS: Juven (unflavored) Packet 1 PACKET PO ×2 (08:04→16:18)
[2020-10-27] MEDS: Ascorbic Acid 500 MG Tablet PO ×2 (08:04→16:19)
[2020-10-27] MEDS: oxyCODONE 5 MG Tablet 10 MG PO ×2 (08:06→21:39)
[2020-10-27] MEDS: Acetaminophen 500 MG Tablet 1000 MG PO ×2 (08:06→21:39)
[2020-10-27] MEDS: Iron Polysaccharide Complex 150 MG CAPSULE PO ×2 (09:06→21:39)
[2020-10-27] MEDS: DAKIN'S SOL HALF STRENGTH (=0.25%) 1 APPLIC TOPICAL (10:57)
[2020-10-27 11:10] LABS: Bedside Glucose 251 mg/dL (70-110)
[2020-10-27 15:06] VITALS: BP 111/59; PULSE 92; RESP 16; TEMP 36.1; O2SAT 93
[2020-10-27 15:09] VITALS: PULSE 92; RESP 16; O2SAT 93
[2020-10-27 16:41] LABS: Bedside Glucose 108 mg/dL (70-110)
[2020-10-27 22:36] LABS: Bedside Glucose 253 mg/dL (70-110)
[2020-10-28] MEDS: Glucerna Shake 120 ML LIQUID PO ×2 (05:22→11:21)
[2020-10-28] MEDS: amLODIPine 10 MG Tablet PO (05:23)
[2020-10-28] MEDS: Lisinopril 40 MG Tablet PO (05:23)
[2020-10-28] MEDS: Polyethylene Glycol 3350 17 GM PACKET PO (05:23)
[2020-10-28 06:03] VITALS: BP 116/48; PULSE 67; RESP 16
[2020-10-28 06:40] LABS: Bedside Glucose 242 mg/dL (70-110)
[2020-10-28] MEDS: Juven (unflavored) Packet 1 PACKET PO (07:56)
[2020-10-28] MEDS: Ascorbic Acid 500 MG Tablet PO (07:56)
[2020-10-28] MEDS: Gabapentin 300 MG Capsule PO ×2 (07:56→11:22)
[2020-10-28] MEDS: Iron Polysaccharide Complex 150 MG CAPSULE PO (07:56)
[2020-10-28] MEDS: Acetaminophen 500 MG Tablet 1000 MG PO (08:01)
[2020-10-28] MEDS: oxyCODONE 5 MG Tablet 10 MG PO ×2 (08:02→14:59)
[2020-10-28] MEDS: DAKIN'S SOL HALF STRENGTH (=0.25%) 1 APPLIC TOPICAL (09:49)
[2020-10-28] MEDS: HYDROmorphone 2 MG TABLET PO (10:01)
[2020-10-28 10:56] LABS: Bedside Glucose 288 mg/dL (70-110)
--- NOTE | 2020-10-28 11:40 | WOUNDNOTE ---
Nursing had changed dressing. 3 ostomy appliance will be sent home with patient. Home health will be ordering supplies for patient at home.
[2020-10-28 15:14] VITALS: BP 133/76; PULSE 90; RESP 18; TEMP 35.8; O2SAT 99
== END 2020-10-28 16:30 | disposition home health service (06) | DRG 949 ==
PROVIDERS: Admitting Provider Family Medicine Geriatric Medicine; PCP Nurse Practitioner; Visit Provider Family Medicine Geriatric Medicine
DX: Z48.815 Encounter for surgical aftercare following surgery on the digestive system (principal); L03.317 Cellulitis of buttock; L02.31 Cutaneous abscess of buttock; E44.0 Moderate protein-calorie malnutrition; D62 Acute posthemorrhagic anemia; L03.116 Cellulitis of left lower limb; L02.416 Cutaneous abscess of left lower limb; L73.2 Hidradenitis suppurativa; J44.9 Chronic obstructive pulmonary disease, unspecified; I10 Essential (primary) hypertension; I25.10 Atherosclerotic heart disease of native coronary artery without angina pectoris; E11.69 Type 2 diabetes mellitus with other specified complication; E78.5 Hyperlipidemia, unspecified; F17.210 Nicotine dependence, cigarettes, uncomplicated; N49.2 Inflammatory disorders of scrotum; G47.30 Sleep apnea, unspecified; I25.2 Old myocardial infarction; S71.102D Unspecified open wound, left thigh, subsequent encounter; S31.829D Unspecified open wound of left buttock, subsequent encounter; X58.XXXD Exposure to other specified factors, subsequent encounter; Z93.3 Colostomy status; Z79.4 Long term (current) use of insulin; Z79.899 Other long term (current) drug therapy; Z68.22 Body mass index [BMI] 22.0-22.9, adult
CPT/HCPCS: 36415; 72072; 74018; 80048; 82962; 85014; 85018; 85025; 87635; 97110; 97116; 97162; 97166; 97530; 97535; 97802; 99406; U0005; A4216; U0003

== ENCOUNTER → 2020-10-27 10:18 | Outpatient (CLI) | payer OTHER, SELFPAY ==
--- NOTE | 2020-10-27 14:33 | MRI_ITS ---
EXAM: MR PELVIS WITHOUT INTRAVENOUS CONTRAST : 1965 CLINICAL INDICATION: HIDRADENITIS SUPPURATIVE OF ANUS, SCROTUM AND GROIN TECHNIQUE: Multiplanar and multisequence MR images of the pelvis without intravenous contrast. This report was created using [employer] report [employer] technology. COMPARISON: None. FINDINGS: APPENDIX: No evidence of acute appendicitis. INTRAPERITONEAL SPACE: Unremarkable. No ascites or other fluid collection. BLADDER: Unremarkable. REPRODUCTIVE: Prostate gland appears normal. Seminal vesicles are normal. BONES/JOINTS: Unremarkable. No suspicious lytic or blastic abnormality. SOFT TISSUES: Perianal fistula noted arising from the 5 to 6 o'clock position and involving the intersphincteric region. Associated edema of the medial portion of the buttocks noted bilaterally. 2.4 and 12 mm fluid collections are seen within the subcutaneous tissues of the right buttock medially which may represent localized abscesses. Inflammatory changes extends along the right side of the perineum and involves the right side of the scrotum. Inflammatory process also extends along the posterior superior aspect of the right buttock. No pelvic wall hernia. LYMPH NODES: Unremarkable. No enlarged lymph nodes. MRI/Pelvis (Routine) IMPRESSION: 1. 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 2. 2.4 and 1.2 cm fluid collections along the medial subcutaneous tissues of the right buttock suggestive of localized abscesses. at 1536 Reported and signed by: Berry Ramirez MD Electronically Signed: Berry Ramirez MD at 15:34 EDT Tel , Service support ,
== END ==
PROVIDERS: PCP Nurse Practitioner; Visit Provider Nurse Practitioner Family
DX: L73.2 Hidradenitis suppurativa (principal)
CPT/HCPCS: 72195

== ENCOUNTER 2020-10-31 08:01 | Outpatient (RCR) | payer OTHER, SELFPAY ==
[2020-10-12 00:31] VITALS: BP 199/82; PULSE 91; RESP 20; TEMP 36.3; BMI 22.1
[2020-10-31 08:03] VITALS: BP 150/51; PULSE 75; TEMP 36.6; BMI 22.1
--- NOTE | 2020-10-31 12:52 | PCM.WC.PN ---
History of Present Illness Date of Service: 10/31/20 Chief Complaint: Nonhealing hidradenitis ulcer left inguinal, perineal, and base of scrotum. History of Wound: Patient admitted to the hospital for increased redness and swelling of his left groin and buttocks on 09/27/20. Patient was started on IV Vancomycin, Levaquin and Flagyl by ID. Surgery 09/29/20 - 1. Surgical preparation left perianal area with excision hidradenitis abscess (144 cm2). 2. Surgical preparation left posterior thigh with incision and drainage and excisional debridement hidradenitis abscess (96 cm2). Operative cultures from 09/29/20 positive for Streptococcus constellatus, Corynebacterium striatum, Anaerobic cocci, and Prevotella species. Pathology of left perianal and left posterior thigh abscess showed pieces of skin with underlying tisse with acute and chronic inflammation, granulation tissue reaction and abscess formation. 10/01/20 - Laparoscopic sigmoid colostomy placed by Dr. Osorio due to the complicated perineal wound secondary to hidradenitis suppurativa status post excision. Transferred TCU on 10/03/20. On Doxycycline and Cefdinir while in TCU. Discharged home on 10/28/20. 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 2.4 and 1.2 cm fluid collections along the medial subcutaneous tissues of the right buttock suggestive of localized abscesses. We will refer him to Dr. Osorio who placed his colostomy. Wound care - Dakin's 0.25% moistened gauze covered with ABD daily and as needed. Today he denies fever. His appetite has not been good. Encouraged protein supplementation. Surgery 03/22/20 - 1. Surgical preparation left inguinal area with excision hidradenitis (315 cm2 total wound). 2. Surgical preparation perineal area with excision hidradenitis (315 cm2 total wound). 3. Surgical preparation base left scrotum with incision and drainage and excision hidradenitis (315 cm2 total wound). Wound culture from 09/05/20 positive for Streptococcus constellatus, Kocuria Kristinae, Staphylococcus epidermidis, Anaerobic cocci, Bacteroides caccae, Prevotella bivia and Lactobacillus fermentum. He is being treated with Cefdinir and Flagyl. Wound culture from 07/05/20 showed Methicillin resistant Staphylococcus haemolyticus, Corynebacterium striatum, and Prevotella bivia. He has completed the Doxycycline and Flagyl. He went to the ED on 05/29 for fevers. They cultured his left groin ulcer and it showed Ecoli, Klebsiella pneumoniae, Serratia marcenscens, Streptococcus constellatus, Staphylococcus peudintermedia. He continued the Levaquin and Flagyl and has completed them. Wound culture 05/20/20- Serratia marcenscens, Escherichia coli, Streptococcus group F, Anaerobic cocci, Prevotella disiens. He was started on Levaquin and Flagyl and has completed them. After speaking with Dr. Palmer, the Strep group F was covered by the Levaquin. Operative culture from 03/22/20 - Enterococcus faecalis and Streptococcus group F, Anaerobic cocci and Prevotella bivia. He was treated with Linezolid and Flagyl and has completed them. He was hospitalized on 05/19/20 and his Hgb was 5.6. He received PRBC. EGD was done on 05/26/20. According to the patient he has a gastric ulcer and is being treated medically. He is scheduled to have a colonoscopy as well. Pathology - hidradenitis. Prealbumin from 03/23/20 was 8.2. Encourage nutritional supplementation with protein to help the healing process. HgbA1c from 03/11/20 was 8.8. Ultrasound of his his left lower extremity ordered and done 04/15/2020. It showed there was no evidence of left lower extremity deep vein thrombosis. Valves are competent and compressible. He will wear Tubigrip for compression. Instructed him to keep legs elevated when sitting. Instructed him to avoid standing for long periods of time. Progress of Wound: Stable. Objective Data Objective Data Vital Signs: Vital Signs Temp Pulse Resp BP 97.8 F 75 20 H 150/51 H 10/31/20 08:03 10/31/20 08:03 10/12/20 00:31 10/31/20 08:03 Weight: 161 lb Body Mass Index (BMI) 22.1 Charges/Coding Procedures Integumentary 111xxx-113xx: 89753 Global Visit Physical Exam Const alert and oriented x3 General Appearance: cooperative HEENT normocephalic Eyes PERRL Lymph Lymphatic: no lymphedema noted Resp normal respiratory effort Cardio regular rate GI non-tender Palpation: soft Extremity normal capillary refill Skin Wound Narrative: Left groin, perianal and posterior thigh ulcer is pink and stable. It is into the muscle. Neuro CN's II-XII intact bilaterally Psych Appearance: grossly normal Debridement Note Debridement Note Wound debrided: perianal, posterior thigh, groin ulcer Laterality: Left Type of Debridement: Excisional debridement Anesthesia Used: 4% Lidocaine Solution Depth: Down to and including healthy tissue, in the subcutaneous layer and to muscle Percentage of wound debrided: 100 Instrument Used: 7mm curette Tissue Removed: Subcutaneous tissue and slough into the muscle. Severity: Fat Layer Exposed Amount of bleeding with debridement: Mild Bleeding Controlled with: Pressure and Compression and gauze Patient tolerated procedure: Patient tolerated procedure well Post-Debridement Measurements and Additional Note: Post-Debridement Measurements/Treatment - Nurse 1 - General Ulcer Assessment Start: 10/31/20 08:03 Freq: Status: Active Protocol: BEKA.PADMINI Activity Type Activity Date Activity User E-Sign Co-Sign Detail Recorded Client Recorded Date Recorded By Document 10/31/20 08:03 JAN [id number] 10/31/20 08:12 JAN 10/31/20 08:03 - Today's Visit Information Type of service Follow-up Visit (Physician/BIOMETRIC FINGERPRINTING TECHNICIAN ) Arrival Mode Ambulatory Patient Identification Verified (Name & Yes ) Height and Weight Body Mass Index (BMI) 22.1 BMI Classification Normal Vital Signs Temperature (97.8 F-99.1 F) 97.8 F Temperature Source Temporal Pulse Rate (60-100) 75 Pulse Location Monitor Blood Pressure (90/60-120/80) 150/51 H Blood Pressure Mean (mm Hg) 84 Source Monitor Position Semi-Fowlers Blood Pressure Location Right Arm History Since Last Visit- (Skip if this is Patient's initial visit) Have you changed medications since your No last visit? Any new allergies or adverse reactions No Had a fall/change in ADL's that may No increase risk of falls Signs or symptoms of abuse and/or No neglect since last visit Have you been in the hospital since your No last visit? Has dressing in place as prescribed Yes Has compression in place as prescribed N/A Has offloadiing in place as prescribed N/A Experienced any changes in pain level or No management Left Footwear Regular Shoe Right Footwear Regular Shoe Pain Scale: 0-10 Numeric Is Patient Pain Free? Yes - Nurse 1 - General Ulcer Measurement Start: 10/31/20 08:03 Freq: Status: Active Protocol: Activity Type Activity Date Activity User E-Sign Co-Sign Detail Recorded Client Recorded Date Recorded By Document 10/31/20 08:03 JAN [id number] 10/31/20 08:12 JAN 10/31/20 08:03 Wound Center Nurse 1 2-left posterior groin -Current Size (cm) - Length 0.1 -Current Size (cm) - Width 0.1 -Current Size (cm) - Depth 0.1 -Total Square Cm 0.01 -Exudate Amt Medium -Exudate Type Serosanguineous -Wound Margin Distinct, Outline Attached -Granulation Amt Large (67-100%) -Granulation Quality Red -Texture (Abimbola-wound Skin Appearance) Assessed, Scarring -Moisture (Abimbola-wound Skin Appearance) No Abnormality, Assessed -Color (Abimbola-wound Skin Appearance) No Abnormality, Assessed -Temperature (Abimbola-wound Skin No Abnormality Appearance) (Pt Warm) -Tenderness on Palpation (Abimbola-wound No Skin Appearance) -Ulcer Cleansing Rinsed/ Irrigated with Saline -Foul Odor after Cleansing No -Anesthetic Used 4% Lidocaine Solution - Nurse 2 - General Ulcer CM Notes Start: 10/31/20 08:03 Freq: Status: Active Protocol: Activity Type Activity Date Activity User E-Sign Co-Sign Detail Recorded Client Recorded Date Recorded By Document 10/31/20 08:25 LIZETTE [id number] 10/31/20 08:44 LIZETTE 10/31/20 08:25 Wound Center Nurse 2 -Correct Patient No -Correct Side, Site, Position No -Correct Procedure No -Procedure Performed No -Wound/Ulcer Outcome Converted #1- L GROIN -Time 08:32 -Correct Patient Yes -Correct Side, Site, Position Yes -Correct Procedure Yes -Procedure Performed Yes -Type of Procedure Debridement -Clinical Debridement Subcutaneous -Tissue Removed Subcutaneous -Post Debridement (cm) - Length 26.5 -Post Debridement (cm) - Width 13 -Post Debridement (cm) - Depth 5 -Total Square (Post) (cm) 344.5 -Area of Debridement (cm) - Length 26.5 -Area of Debridement (cm) - Width 13 -Total Square (Area) (cm) 344.5 -Tunneling No -Undermining/Tunneling No -Circular Undermining No -Wound/Ulcer Outcome Not Healed -Ulcer Cleansing Rinsed/ Irrigated with Saline -Foul Odor after Cleansing No -Bioengineered Tissue No -Bleeding Controlled with Pressure -Offloading No -Treatment Response Procedure Tolerated Well -Debridement - Subq, 1st 20sq cm Yes -Debridement, SubQ, ea addt'l 20sq cm 11 or part thereof Pain Scale: 0-10 Numeric Is Patient Pain Free? Yes - Nurse 3 - General Ulcer D/C NN Start: 10/31/20 08:03 Freq: Status: Active Protocol: Activity Type Activity Date Activity User E-Sign Co-Sign Detail Recorded Client Recorded Date Recorded By Document 10/31/20 08:49 DL [id number] 10/31/20 08:50 DL 10/31/20 08:49 Wound Care Nurse 3 #1- L GROIN -Ulcer Cleansing soap and water -Primary Dressing Applied Other -Other Dressing wet to dry -Primary Dressing Covered/Secured with Dry Gauze, Secured with Tape Pain Scale: 0-10 Numeric Is Patient Pain Free? Yes - Visit Discharge Discharge Condition Stable Ambulatory Status Ambulatory Transportation Private Auto Assessment/Plan Assessment/Plan (1) Open wound of left buttock with complication: CODE(S): S31.829A - Unspecified open wound of left buttock, initial encounter QUALIFIERS: Encounter type: initial encounter Qualified Code(s): S31.829A - Unspecified open wound of left buttock, initial encounter (2) Complicated open wound of left thigh: CODE(S): S71.102A - Unspecified open wound, left thigh, initial encounter (3) Diabetes mellitus: CODE(S): E11.9 - Type 2 diabetes mellitus without complications QUALIFIERS: Diabetes mellitus type: type 2 (4) Acute postoperative anemia due to expected blood loss: CODE(S): D62 - Acute posthemorrhagic anemia (5) Iron deficiency anemia: CODE(S): D50.9 - Iron deficiency anemia, unspecified QUALIFIERS: Iron deficiency anemia type: chronic blood loss Qualified Code(s): D50.0 - Iron deficiency anemia secondary to blood loss (chronic) (6) Tobacco dependence syndrome: CODE(S): F17.200 - Nicotine dependence, unspecified, uncomplicated (7) Hidradenitis suppurativa of anus: CODE(S): L73.2 - Hidradenitis suppurativa (8) Hydradenitis: CODE(S): L73.2 - Hidradenitis suppurativa PLAN: Wound care - Dakin's 0.25% moistened gauze covered by ABD daily. Discussed MRI results. Will refer him to Dr. Osorio for intersphincteric perianal fistula for further evaluation. Prealbumin 10.8 on 10/01/20. Encouraged increased protein intake to help with wound healing. Encouraged to stop smoking to help with wound healing. Follow up 2 weeks.
== END 2020-11-10 23:59 ==
LOC: WC 08:01
PROVIDERS: PCP Nurse Practitioner; Referring Provider Nurse Practitioner Family; Visit Provider Nurse Practitioner Family
DX: L73.2 Hidradenitis suppurativa (principal); L02.416 Cutaneous abscess of left lower limb; Z86.718 Personal history of other venous thrombosis and embolism; L98.492 Non-pressure chronic ulcer of skin of other sites with fat layer exposed; E11.622 Type 2 diabetes mellitus with other skin ulcer; F17.200 Nicotine dependence, unspecified, uncomplicated; D50.9 Iron deficiency anemia, unspecified; K60.3 Anal fistula
CPT/HCPCS: 11042; 11045

== ENCOUNTER → 2020-11-24 09:29 | Outpatient (CLI) | payer OTHER, SELFPAY ==
--- NOTE | 2020-11-24 09:34 | ART_ITS ---
Reason For Study: PVD Procedure A bilateral lower extremity continuous wave Doppler with analog waveform analysis,segmental pressures,and ankle brachial indexes without exercise. Left Segmental Pressures Left brachial= 158mmHg. Left thigh = 99mmHg. Left calf = 78mmHg. Left posterior tibial artery = 81mmHg. Left dorsalis pedis artery = 78mmHg. Left digit = 52 mmHg. The left dorsalis pedis waveforms are monophasic. The left posterior tibial artery waveforms are monophasic. Right Segmental Pressures Right brachial= 160mmHg. Right thigh = 83mmHg. Right calf = 66mmHg. Right posterior tibial artery = 76mmHg. Right dorsalis pedis artery = 65mmHg. Right digit = 51 mmHg. The right dorsalis pedis waveforms are monophasic. The right posterior tibial artery waveforms are monophasic. Indices The right ankle brachial index by the dorsalis pedis is 0.41. The right ankle brachial index by the posterior tibial artery is 0.48. The right digital-brachial index is 0.32. The left ankle brachial index by the dorsalis pedis is 0.49. The left ankle brachial index by the posterior tibial artery is 0.51. The left digital-brachial index is 0.33. VL/Lower Ext Art Exam w/o Exercis Interpretation Summary Abnormal right lower extremity ankle-brachial indices of rest of 0.48 and 0.41 for the PT and DP respectively. Monophasic right posterior tibial and dorsalis pedis Doppler wave forms consistent with severe disease Abnormal left lower extremity ankle-brachial indices of 0.51 and 0.49 for the P T and DP respectively at rest. Left posterior tibial and dorsalis pedis monophasic Doppler waveforms consistent with severe disease Abnormal right digital brachial index of 0.32 and abnormal left digital brachia l index of 0.33 Ordering Physician: Dileep Luis Referring Physician: Adina Bhat Performed By: Valeria Kinney RVT
== END ==
PROVIDERS: PCP Nurse Practitioner; Referring Provider Podiatrist; Visit Provider Podiatrist
DX: I73.9 Peripheral vascular disease, unspecified (principal)
CPT/HCPCS: 93923

== ENCOUNTER 2020-11-28 08:30 | Outpatient (RCR) | payer OTHER, SELFPAY ==
[2020-11-11 00:24] VITALS: BP 150/51; PULSE 75; RESP 20; TEMP 36.6; BMI 22.1
[2020-11-14 08:05] VITALS: BP 157/48; PULSE 83; TEMP 36.4; BMI 22.1
--- NOTE | 2020-11-14 12:52 | PCM.WC.PN ---
History of Present Illness Date of Service: 11/14/20 Chief Complaint: Nonhealing hidradenitis ulcer left inguinal, perineal, and base of scrotum. History of Wound: Patient admitted to the hospital for increased redness and swelling of his left groin and buttocks on 09/27/20. Patient was started on IV Vancomycin, Levaquin and Flagyl by ID. Surgery 09/29/20 - 1. Surgical preparation left perianal area with excision hidradenitis abscess (144 cm2). 2. Surgical preparation left posterior thigh with incision and drainage and excisional debridement hidradenitis abscess (96 cm2). Operative cultures from 09/29/20 positive for Streptococcus constellatus, Corynebacterium striatum, Anaerobic cocci, and Prevotella species. Pathology of left perianal and left posterior thigh abscess showed pieces of skin with underlying tisse with acute and chronic inflammation, granulation tissue reaction and abscess formation. 10/01/20 - Laparoscopic sigmoid colostomy placed by Dr. Osorio due to the complicated perineal wound secondary to hidradenitis suppurativa status post excision. Transferred TCU on 10/03/20. On Doxycycline and Cefdinir while in TCU. Discharged home on 10/28/20. 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 2.4 and 1.2 cm fluid collections along the medial subcutaneous tissues of the right buttock suggestive of localized abscesses. He saw Dr. Osorio who placed his colostomy, and he said this is all related to his hidradenitis and that Dr. Smith is able to keep treating him. He does suggest doing daily Epsom sitz baths to help with the drainage of the hidradenitis abscesses. Wound care - Dakin's 0.25% moistened gauze covered with ABD daily and as needed. Today he denies fever. His appetite has not been good. Encouraged protein supplementation. Surgery 03/22/20 - 1. Surgical preparation left inguinal area with excision hidradenitis (315 cm2 total wound). 2. Surgical preparation perineal area with excision hidradenitis (315 cm2 total wound). 3. Surgical preparation base left scrotum with incision and drainage and excision hidradenitis (315 cm2 total wound). Wound culture from 09/05/20 positive for Streptococcus constellatus, Kocuria Kristinae, Staphylococcus epidermidis, Anaerobic cocci, Bacteroides caccae, Prevotella bivia and Lactobacillus fermentum. He is being treated with Cefdinir and Flagyl. Wound culture from 07/05/20 showed Methicillin resistant Staphylococcus haemolyticus, Corynebacterium striatum, and Prevotella bivia. He has completed the Doxycycline and Flagyl. He went to the ED on 05/29 for fevers. They cultured his left groin ulcer and it showed Ecoli, Klebsiella pneumoniae, Serratia marcenscens, Streptococcus constellatus, Staphylococcus peudintermedia. He continued the Levaquin and Flagyl and has completed them. Wound culture 05/20/20- Serratia marcenscens, Escherichia coli, Streptococcus group F, Anaerobic cocci, Prevotella disiens. He was started on Levaquin and Flagyl and has completed them. After speaking with Dr. Palmer, the Strep group F was covered by the Levaquin. Operative culture from 03/22/20 - Enterococcus faecalis and Streptococcus group F, Anaerobic cocci and Prevotella bivia. He was treated with Linezolid and Flagyl and has completed them. He was hospitalized on 05/19/20 and his Hgb was 5.6. He received PRBC. EGD was done on 05/26/20. According to the patient he has a gastric ulcer and is being treated medically. He is scheduled to have a colonoscopy as well. Pathology - hidradenitis. Prealbumin from 03/23/20 was 8.2. Encourage nutritional supplementation with protein to help the healing process. HgbA1c from 03/11/20 was 8.8. Ultrasound of his his left lower extremity ordered and done 04/15/2020. It showed there was no evidence of left lower extremity deep vein thrombosis. Valves are competent and compressible. He will wear Tubigrip for compression. Instructed him to keep legs elevated when sitting. Instructed him to avoid standing for long periods of time. Progress of Wound: Improved. Objective Data Objective Data Vital Signs: Vital Signs Temp Pulse Resp BP 97.6 F L 83 20 H 157/48 H 10/04/21 08:05 11/14/20 08:05 11/11/20 00:24 11/14/20 08:05 Weight: 161 lb Body Mass Index (BMI) 22.1 Charges/Coding Procedures Integumentary 111xxx-113xx: 29503 Global Visit Physical Exam Const alert and oriented x3 HEENT normocephalic Head and Scalp: atraumatic Lymph Lymphatic: no lymphedema noted Resp normal respiratory effort Cardio regular rate GI non-tender Palpation: soft Extremity normal capillary refill Skin Wound Narrative: Left groin, buttocks and posterior thigh ulcer is beefy pink. It looks good. He does have firmness on his right buttocks that if palpated it will drain thick, white drainage from his hidradenitis that he has there. Neuro CN's II-XII intact bilaterally Psych Appearance: grossly normal Debridement Note Debridement Note Wound debrided: Groin/buttocks/posterior thigh ulcer Laterality: Left Type of Debridement: Excisional debridement Anesthesia Used: 5% Lidocaine Gel Depth: Down to and including healthy tissue and in the subcutaneous layer Percentage of wound debrided: 100 Instrument Used: 7mm curette Tissue Removed: Subcutaneous tissue and slough Severity: Fat Layer Exposed Amount of bleeding with debridement: Mild Bleeding Controlled with: Pressure and Compression and gauze Patient tolerated procedure: Patient tolerated procedure well Post-Debridement Measurements and Additional Note: Post-Debridement Measurements/Treatment - Nurse 1 - General Ulcer Assessment Start: 11/14/20 08:05 Freq: Status: Active Protocol: [email or web address].[email or web address] Activity Type Activity Date Activity User E-Sign Co-Sign Detail Recorded Client Recorded Date Recorded By Document 11/14/20 08:05 JAN [id number] 11/14/20 08:13 JAN 11/14/20 08:05 - Today's Visit Information Type of service Follow-up Visit (Physician/PRESS TENDER INCENDIARY GRENADE ) Arrival Mode Ambulatory Patient Identification Verified (Name & No ) Patient Requires Transmission-Based No Precautions Safety Precautions NA Height and Weight Body Mass Index (BMI) 22.1 BMI Classification Normal Vital Signs Temperature (97.8 F-99.1 F) 97.6 F L Temperature Source Temporal Pulse Rate (60-100) 83 Pulse Location Monitor Blood Pressure (90/60-120/80) 157/48 H Blood Pressure Mean (mm Hg) 84 Source Monitor History Since Last Visit- (Skip if this is Patient's initial visit) Have you changed medications since your No last visit? Any new allergies or adverse reactions No Had a fall/change in ADL's that may No increase risk of falls Signs or symptoms of abuse and/or No neglect since last visit Have you been in the hospital since your No last visit? Has dressing in place as prescribed Yes Has compression in place as prescribed N/A Has offloadiing in place as prescribed N/A Left Footwear Regular Shoe Right Footwear Regular Shoe Pain Scale: 0-10 Numeric Is Patient Pain Free? Yes WC - Nurse 1 - General Ulcer Measurement Start: 11/14/20 08:05 Freq: Status: Active Protocol: Activity Type Activity Date Activity User E-Sign Co-Sign Detail Recorded Client Recorded Date Recorded By Document 11/14/20 08:05 JAN [id number] 11/14/20 08:13 JAN 11/14/20 08:05 Wound Center Nurse 1 2-left posterior groin -Combined with other wound No -Current Size (cm) - Length 24.2 -Current Size (cm) - Width 17 -Total Square Cm 411.4 -Photo Taken No -Epithelialization None Present -Tunneling No -Undermining/Tunneling No -Circular Undermining No -Change in Wound Grade/Stage No #3 LEFT GROIN -Combined with other wound No -Current Size (cm) - Length 24.2 -Current Size (cm) - Width 17 -Current Size (cm) - Depth 0.3 -Total Square Cm 411.4 -Photo Taken No -Epithelialization None Present -Tunneling No -Undermining/Tunneling No -Circular Undermining No -Exudate Amt Medium -Exudate Type Serosanguineous -Wound Margin Distinct, Outline Attached -Granulation Amt Large (67-100%) -Granulation Quality Hyper- granulation,Red -Slough/Fibrin No -Necrosis Amt None Present (0 %) -Structure Exposed N/A -Texture (Abimbola-wound Skin Appearance) No Abnormality, Assessed -Moisture (Abimbola-wound Skin Appearance) No Abnormality, Assessed -Color (Abimbola-wound Skin Appearance) No Abnormality, Assessed -Temperature (Abimbola-wound Skin No Abnormality Appearance) (Pt Warm) -Tenderness on Palpation (Abimbola-wound Yes Skin Appearance) -Ulcer Cleansing Soap and Water -Foul Odor after Cleansing No -Anesthetic Used 4% Lidocaine Solution - Nurse 2 - General Ulcer CM Notes Start: 11/14/20 08:05 Freq: Status: Active Protocol: Activity Type Activity Date Activity User E-Sign Co-Sign Detail Recorded Client Recorded Date Recorded By Document 11/14/20 08:46 LIZETTE [id number] 11/14/20 08:56 LIZETTE 11/14/20 08:46 Wound Center Nurse 2 -Time 08:46 -Correct Patient Yes -Correct Side, Site, Position Yes -Correct Procedure Yes -Procedure Performed Yes -Type of Procedure Debridement -Clinical Debridement Subcutaneous -Tissue Removed Subcutaneous -Post Debridement (cm) - Length 24.5 -Post Debridement (cm) - Width 10.5 -Post Debridement (cm) - Depth 4.2 -Total Square (Post) (cm) 257.25 -Area of Debridement (cm) - Length 24.5 -Area of Debridement (cm) - Width 10.5 -Total Square (Area) (cm) 257.25 -Tunneling No -Undermining/Tunneling No -Circular Undermining No -Wound/Ulcer Outcome Not Healed -Ulcer Cleansing Rinsed/ Irrigated with Saline -Foul Odor after Cleansing No -Bioengineered Tissue No -Bleeding Controlled with Pressure -Offloading No -Treatment Response Procedure Tolerated Well -Debridement - Subq, 1st 20sq cm Yes -Debridement, SubQ, ea addt'l 20sq cm 11 or part thereof Pain Scale: 0-10 Numeric Is Patient Pain Free? Yes - Nurse 3 - General Ulcer D/C NN Start: 11/14/20 08:05 Freq: Status: Active Protocol: Activity Type Activity Date Activity User E-Sign Co-Sign Detail Recorded Client Recorded Date Recorded By Document 11/14/20 09:05 [facility] [id number] 11/14/20 09:05 [facility] 11/14/20 09:05 Wound Care Nurse 3 #3 LEFT GROIN -Ulcer Cleansing Rinsed/ Irrigated with Saline -Foul Odor after Cleansing No -Primary Dressing Applied Other -Other Dressing moist to dry, per ak manual training teacher -Primary Dressing Covered/Secured with Secured with Tape,Other -Other Covering abd Treatment Response Procedure Tolerated Well Pain Scale: 0-10 Numeric Is Patient Pain Free? Yes - Visit Discharge Discharge Condition Stable Ambulatory Status Ambulatory Transportation Private [facility] Facility Type Home Health Assessment/Plan Assessment/Plan (1) Ulcer of left groin with fat layer exposed: CODE(S): L98.492 - Non-pressure chronic ulcer of skin of other sites with fat layer exposed (2) Chronic ulcer of buttock: CODE(S): L98.419 - Non-pressure chronic ulcer of buttock with unspecified severity (3) Diabetes mellitus: CODE(S): E11.9 - Type 2 diabetes mellitus without complications QUALIFIERS: Diabetes mellitus type: type 2 Diabetes mellitus supplier quality engineer insulin use: without supplier quality engineer use Diabetes mellitus complication status: with circulatory complication Diabetes mellitus complication detail: with other circulatory complications Qualified Code(s): E11.59 - Type 2 diabetes mellitus with other circulatory complications (4) Debility: CODE(S): R53.81 - Other malaise (5) 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 He saw Dr. Osorio who would like him to do daily Epsom salt bath soaks for 20 minutes daily. Prealbumin 10.8 on 10/01/20. Encouraged increased protein intake to help with wound healing. Encouraged to stop smoking to help with wound healing. He has been taking his pain medication. He currently states he does not need any refills at this time. Follow up 2 weeks.
[2020-11-28 08:27] VITALS: BP 165/54; PULSE 80; RESP 20; TEMP 36.2; BMI 22.1
--- NOTE | 2020-11-28 10:45 | PN.PCM_ITS ---
History of Present Illness Date of Service: 11/28/20 Chief Complaint: Nonhealing hidradenitis ulcer left inguinal, perineal, and base of scrotum. History of Wound: Patient admitted to the hospital for increased redness and swelling of his left groin and buttocks on 09/27/20. Patient was started on IV Vancomycin, Levaquin and Flagyl by ID. Surgery 09/29/20 - 1. Surgical preparation left perianal area with excision hidradenitis abscess (144 cm2). 2. Surgical preparation left posterior thigh with incision and drainage and excisional debridement hidradenitis abscess (96 cm2). Operative cultures from 09/29/20 positive for Streptococcus constellatus, Corynebacterium striatum, Anaerobic cocci, and Prevotella species. Pathology of left perianal and left posterior thigh abscess showed pieces of skin with underlying tisse with acute and chronic inflammation, granulation tissue reaction and abscess formation. 10/01/20 - Laparoscopic sigmoid colostomy placed by Dr. Osorio due to the complicated perineal wound secondary to hidradenitis suppurativa status post excision. Transferred TCU on 10/03/20. On Doxycycline and Cefdinir while in TCU. Discharged home on 10/28/20. 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 2.4 and 1.2 cm fluid collections along the medial subcutaneous tissues of the right buttock suggestive of localized abscesses. He saw Dr. Osorio who placed his colostomy, and he said this is all related to his hidradenitis and that Dr. Smith is able to keep treating him. He does suggest doing daily Epsom sitz baths to help with the drainage of the hidradenitis abscesses. Wound care - Alternate between silver alginate and Dakin's 0.25% moistened gauze covered with ABD daily. Some areas are becoming difficult to keep Dakin's on. Will re-evaluate at next visit. Today he denies fever. His appetite has not been good. Encouraged protein supplementation. Surgery 03/22/20 - 1. Surgical preparation left inguinal area with excision hidradenitis (315 cm2 total wound). 2. Surgical preparation perineal area with excision hidradenitis (315 cm2 total wound). 3. Surgical preparation base left scrotum with incision and drainage and excision hidradenitis (315 cm2 total wound). Wound culture from 09/05/20 positive for Streptococcus constellatus, Kocuria Kristinae, Staphylococcus epidermidis, Anaerobic cocci, Bacteroides caccae, Prevotella bivia and Lactobacillus fermentum. He is being treated with Cefdinir and Flagyl. Wound culture from 07/05/20 showed Methicillin resistant Staphylococcus haemolyticus, Corynebacterium striatum, and Prevotella bivia. He has completed the Doxycycline and Flagyl. He went to the ED on 05/29 for fevers. They cultured his left groin ulcer and it showed Ecoli, Klebsiella pneumoniae, Serratia marcenscens, Streptococcus constellatus, Staphylococcus peudintermedia. He continued the Levaquin and Flagyl and has completed them. Wound culture 05/20/20- Serratia marcenscens, Escherichia coli, Streptococcus group F, Anaerobic cocci, Prevotella disiens. He was started on Levaquin and Flagyl and has completed them. After speaking with Dr. Palmer, the Strep group F was covered by the Levaquin. Operative culture from 03/22/20 - Enterococcus faecalis and Streptococcus group F, Anaerobic cocci and Prevotella bivia. He was treated with Linezolid and Flagyl and has completed them. He was hospitalized on 05/19/20 and his Hgb was 5.6. He received PRBC. EGD was done on 05/26/20. According to the patient he has a gastric ulcer and is being treated medically. He is scheduled to have a colonoscopy as well. Pathology - hidradenitis. Prealbumin from 03/23/20 was 8.2. Encourage nutritional supplementation with protein to help the healing process. HgbA1c from 03/11/20 was 8.8. Ultrasound of his his left lower extremity ordered and done 04/15/2020. It showed there was no evidence of left lower extremity deep vein thrombosis. Valves are competent and compressible. He will wear Tubigrip for compression. Instructed him to keep legs elevated when sitting. Instructed him to avoid standing for long periods of time. Progress of Wound: Improved. Objective Data Objective Data Vital Signs: Vital Signs Temp Pulse Resp BP 97.1 F L 80 20 H 165/54 H 11/28/20 08:27 11/28/20 08:27 11/28/20 08:27 11/28/20 08:27 Weight: 161 lb Body Mass Index (BMI) 22.1 Charges/Coding Procedures Integumentary [id number]: [id number] Global Visit Physical Exam Const alert and oriented x3 General Appearance: cooperative HEENT normocephalic Lymph Lymphatic: no lymphedema noted Resp normal respiratory effort GI non-tender Palpation: soft Extremity normal capillary refill Skin Wound Narrative: Ulcer that starts in left groin and continues into left buttock. It is decreasing in size. He has areas of hidradenitis that do not look as inflamed and are not draining thick white drainage like they usually do, since he has been doing epsome salt sitz baths daily. Neuro CN's II-XII intact bilaterally Psych Appearance: grossly normal Debridement Note Debridement Note Wound debrided: Ulcer starts left groin and goes to left buttock Laterality: Left Type of Debridement: Excisional debridement Anesthesia Used: 4% Lidocaine Solution and 5% Lidocaine Gel Depth: Down to and including healthy tissue and in the subcutaneous layer Percentage of wound debrided: 100 Instrument Used: 7mm curette Tissue Removed: Subcutaneous tissue and slough Severity: Fat Layer Exposed Amount of bleeding with debridement: Moderate Bleeding Controlled with: Pressure, Compression and gauze and Silver Nitrate Patient tolerated procedure: Patient tolerated procedure well Post-Debridement Measurements and Additional Note: Post-Debridement Measurements/Treatment - Nurse 1 - General Ulcer Assessment Start: 11/14/20 08:05 Freq: Status: Active Protocol: ROC Activity Type Activity Date Activity User E-Sign Co-Sign Detail Recorded Client Recorded Date Recorded By Document 11/14/20 08:05 AK [id number] 11/14/20 08:13 AK Document 11/28/20 08:27 DL [id number] 11/28/20 08:35 DL 11/14/20 11/28/20 08:05 08:27 - Today's Visit Information Type of service Follow-up Visit Follow-up Visit (Physician/SUPERVISOR ENGINE REPAIR (Physician/SUPERVISOR ENGINE REPAIR ) ) Arrival Mode Ambulatory Ambulatory Transfer Assistance None Patient Identification Verified (Name & No Yes ) Patient Requires Transmission-Based No No Precautions Safety Precautions NA Finger Stick Blood Sugar(mg/dl) (if didnt check indicated): Blood Sugar Stated by Patient Height and Weight Body Mass Index (BMI) 22.1 22.1 BMI Classification Normal Normal Vital Signs Temperature (97.8 F-99.1 F) 97.6 F L 97.1 F L Temperature Source Temporal Temporal Pulse Rate (60-100) 83 80 Pulse Location Monitor Monitor Respiratory Rate (12-18) 20 H Respiratory rate source Observation Blood Pressure (90/60-120/80) 157/48 H 165/54 H Blood Pressure Mean (mm Hg) 84 91 Source Monitor Monitor History Since Last Visit- (Skip if this is Patient's initial visit) Have you changed medications since your No No last visit? Any new allergies or adverse reactions No No Had a fall/change in ADL's that may No No increase risk of falls Signs or symptoms of abuse and/or No No neglect since last visit Have you been in the hospital since your No No last visit? Has dressing in place as prescribed Yes Yes Has compression in place as prescribed N/A N/A Has offloadiing in place as prescribed N/A Yes Experienced any changes in pain level or No management Left Footwear Regular Shoe Right Footwear Regular Shoe Pain Scale: 0-10 Numeric Is Patient Pain Free? Yes Yes WC - Nurse 1 - General Ulcer Measurement Start: 11/14/20 08:05 Freq: Status: Active Protocol: Activity Type Activity Date Activity User E-Sign Co-Sign Detail Recorded Client Recorded Date Recorded By Document 11/14/20 08:05 AK [id number] 11/14/20 08:13 AK Document 11/28/20 08:27 DL [id number] 11/28/20 08:35 DL 11/14/20 11/28/20 08:05 08:27 Wound Center Nurse 1 2-left posterior groin -Combined with other wound No -Current Size (cm) - Length 24.2 -Current Size (cm) - Width 17 -Total Square Cm 411.4 -Photo Taken No -Epithelialization None Present -Tunneling No -Undermining/Tunneling No -Circular Undermining No -Change in Wound Grade/Stage No #3 LEFT GROIN -Combined with other wound No -Current Size (cm) - Length 24.2 21 -Current Size (cm) - Width 17 10 -Current Size (cm) - Depth 0.3 0.2 -Total Square Cm 411.4 210 -Photo Taken No No -Epithelialization None Present -Tunneling No -Tunneling Position (O'clock) 7 -Tunneling Distance (cm) 1.4 -Undermining/Tunneling No -Undermining/Tunneling Starts (O'clock 7 ) -Circular Undermining No -Exudate Amt Medium Medium -Exudate Type Serosanguineous Serosanguineous -Wound Margin Distinct, Distinct, Outline Outline Attached Attached -Granulation Amt Large (67-100%) Large (67-100%) -Granulation Quality Hyper- granulation,Red -Slough/Fibrin No -Necrosis Amt None Present (0 Small (1-33%) %) -Necrotic Tissue Type Adherent Slough -Structure Exposed N/A N/A -Texture ([place]ola-wound Skin Appearance) No Abnormality, Scarring Assessed -Moisture ([place]ola-wound Skin Appearance) No Abnormality, No Abnormality Assessed -Color ([place]ola-wound Skin Appearance) No Abnormality, No Abnormality Assessed -Temperature ([place]-wound Skin No Abnormality No Abnormality Appearance) (Pt Warm) (Pt Warm) -Tenderness on Palpation ([place]ola-wound Yes No Skin Appearance) -Ulcer Cleansing Soap and Water Wound Cleanser -Foul Odor after Cleansing No No -Anesthetic Used 4% Lidocaine 4% Lidocaine Solution Solution WC - Nurse 2 - General Ulcer CM Notes Start: 11/14/20 08:05 Freq: Status: Active Protocol: Activity Type Activity Date Activity User E-Sign Co-Sign Detail Recorded Client Recorded Date Recorded By Document 11/14/20 08:46 [id number] 11/14/20 08:56 Document 11/28/20 08:58 [id number] 11/28/20 09:04 11/14/20 11/28/20 08:46 08:58 Wound Center Nurse 2 #3 LEFT GROIN -Time 08:46 08:58 -Correct Patient Yes Yes -Correct Side, Site, Position Yes Yes -Correct Procedure Yes Yes -Procedure Performed Yes Yes -Type of Procedure Debridement Debridement -Clinical Debridement Subcutaneous Subcutaneous -Tissue Removed Subcutaneous Subcutaneous -Post Debridement (cm) - Length 24.5 15 -Post Debridement (cm) - Width 10.5 9.5 -Post Debridement (cm) - Depth 4.2 1.6 -Total Square (Post) (cm) 257.25 142.5 -Area of Debridement (cm) - Length 24.5 15 -Area of Debridement (cm) - Width 10.5 9.5 -Total Square (Area) (cm) 257.25 142.5 -Tunneling No No -Undermining/Tunneling No No -Circular Undermining No No -Wound/Ulcer Outcome Not Healed Not Healed -Ulcer Cleansing Rinsed/ Rinsed/ Irrigated with Irrigated with Saline Saline -Foul Odor after Cleansing No No -Bioengineered Tissue No No -Bleeding Controlled with Pressure Pressure,Silver Nitrate -Offloading No No -Treatment Response Procedure Procedure Tolerated Well Tolerated Well -Debridement - Subq, 1st 20sq cm Yes Yes -Debridement, SubQ, ea addt'l 20sq cm 11 7 or part thereof Pain Scale: 0-10 Numeric Is Patient Pain Free? Yes Yes - Nurse 3 - General Ulcer D/C NN Start: 11/14/20 08:05 Freq: Status: Active Protocol: Activity Type Activity Date Activity User E-Sign Co-Sign Detail Recorded Client Recorded Date Recorded By Document 11/14/20 09:05 BMF [id number] 11/14/20 09:05 BMF Document 11/28/20 09:10 DL [id number] 11/28/20 09:11 DL Edit Result 11/28/20 09:10 DL (1) [id number] 11/28/20 09:13 DL (1) Notes: => Dressing applied per Chuy Lee LPN today 11/14/20 11/28/20 09:05 09:10 Wound Care Nurse 3 #3 LEFT GROIN -Ulcer Cleansing Rinsed/ Rinsed/ Irrigated with Irrigated with Saline Saline -Foul Odor after Cleansing No No -Primary Dressing Applied Other Aquacel AG 4x4 -Other Dressing moist to dry, per [place] residential electrician -Primary Dressing Covered/Secured with Secured with Dry Gauze, Tape,Other Secured with Tape -Other Covering abd ABD -Aquacel AG 4x4 1 Treatment Response Procedure Procedure Tolerated Well Tolerated Well Pain Scale: 0-10 Numeric Is Patient Pain Free? Yes Yes WC - Visit Discharge Discharge Condition Stable Stable Ambulatory Status Ambulatory Ambulatory Transportation Private Auto Private Auto Notes: Dressing applied per Chuy Lee LPN today Facility Type Home Health Home Health Orders Sent Yes Assessment/Plan Assessment/Plan (1) Chronic ulcer of left thigh with fat layer exposed: CODE(S): L97.122 - Non-pressure chronic ulcer of left thigh with fat layer exposed (2) Chronic ulcer of buttock: CODE(S): L98.419 - Non-pressure chronic ulcer of buttock with unspecified severity (3) Ulcer of left groin with fat layer exposed: CODE(S): L98.492 - Non-pressure chronic ulcer of skin of other sites with fat layer exposed (4) Diabetes mellitus type 2, uncontrolled, with complications: CODE(S): E11.8 - Type 2 diabetes mellitus with unspecified complications; E11.65 - Type 2 diabetes mellitus with hyperglycemia (5) Hydradenitis: CODE(S): L73.2 - Hidradenitis suppurativa (6) Malnutrition: CODE(S): E46 - Unspecified protein-calorie malnutrition QUALIFIERS: Malnutrition type: protein-calorie malnutrition Protein-calorie malnutrition severity: moderate Qualified Code(s): E44.0 - Moderate protein-calorie malnutrition (7) Anemia: CODE(S): D64.9 - Anemia, unspecified (8) Tobacco dependence syndrome: CODE(S): F17.200 - Nicotine dependence, unspecified, uncomplicated (9) Debility: CODE(S): R53.81 - Other malaise PLAN: Wound care - Alternate between silver alginate and Dakin's 0.25% moistened gauze covered with ABD daily. Some areas are becoming difficult to keep Dakin's on. Will re-evaluate at next visit. He saw Dr. Osorio who would like him to do daily Epsom salt bath soaks for 20 minutes daily. This has shown an improvement in the erythema and there is no thick, white drainage from the hidradenitis today. Prealbumin 10.8 on 10/01/20. Encouraged increased protein intake to help with wound healing. Encouraged to stop smoking to help with wound healing. Follow up 2 weeks.
== END 2020-12-11 23:59 ==
LOC: WC 08:30
PROVIDERS: PCP Nurse Practitioner; Referring Provider Nurse Practitioner Family; Visit Provider Nurse Practitioner Family
DX: L73.2 Hidradenitis suppurativa (principal); L02.416 Cutaneous abscess of left lower limb; L97.122 Non-pressure chronic ulcer of left thigh with fat layer exposed; L98.492 Non-pressure chronic ulcer of skin of other sites with fat layer exposed; E11.622 Type 2 diabetes mellitus with other skin ulcer; E11.59 Type 2 diabetes mellitus with other circulatory complications; F17.200 Nicotine dependence, unspecified, uncomplicated; K60.3 Anal fistula
CPT/HCPCS: 11042; 11045

== ENCOUNTER 2020-12-26 08:30 | Outpatient (RCR) | payer OTHER, SELFPAY ==
[2020-12-12 00:20] VITALS: BP 165/54; PULSE 80; RESP 20; TEMP 36.2; BMI 22.1
[2020-12-12 08:32] VITALS: BP 192/77; PULSE 82; RESP 18; TEMP 36.7; BMI 22.1
--- NOTE | 2020-12-12 12:44 | PCM.WC.PN ---
History of Present Illness Date of Service: 12/12/20 Chief Complaint: Nonhealing hidradenitis ulcer left inguinal, perineal, and base of scrotum. History of Wound: Patient admitted to the hospital for increased redness and swelling of his left groin and buttocks on 09/27/20. Patient was started on IV Vancomycin, Levaquin and Flagyl by ID. Surgery 09/29/20 - 1. Surgical preparation left perianal area with excision hidradenitis abscess (144 cm2). 2. Surgical preparation left posterior thigh with incision and drainage and excisional debridement hidradenitis abscess (96 cm2). Operative cultures from 09/29/20 positive for Streptococcus constellatus, Corynebacterium striatum, Anaerobic cocci, and Prevotella species. Pathology of left perianal and left posterior thigh abscess showed pieces of skin with underlying tisse with acute and chronic inflammation, granulation tissue reaction and abscess formation. 10/01/20 - Laparoscopic sigmoid colostomy placed by Dr. Osorio due to the complicated perineal wound secondary to hidradenitis suppurativa status post excision. Transferred TCU on 10/03/20. On Doxycycline and Cefdinir while in TCU. Discharged home on 10/28/20. 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 2.4 and 1.2 cm fluid collections along the medial subcutaneous tissues of the right buttock suggestive of localized abscesses. He saw Dr. Osorio who placed his colostomy, and he said this is all related to his hidradenitis and that Dr. Smith is able to keep treating him. He does suggest doing daily Epsom sitz baths to help with the drainage of the hidradenitis abscesses. Wound care - Alternate between silver alginate and Dakin's 0.25% moistened gauze covered with ABD daily. Some areas are becoming difficult to keep Dakin's on. Will re-evaluate at next visit. Today he denies fever. His appetite has not been good. Encouraged protein supplementation. Surgery 03/22/20 - 1. Surgical preparation left inguinal area with excision hidradenitis (315 cm2 total wound). 2. Surgical preparation perineal area with excision hidradenitis (315 cm2 total wound). 3. Surgical preparation base left scrotum with incision and drainage and excision hidradenitis (315 cm2 total wound). Wound culture from 09/05/20 positive for Streptococcus constellatus, Kocuria Kristinae, Staphylococcus epidermidis, Anaerobic cocci, Bacteroides caccae, Prevotella bivia and Lactobacillus fermentum. He is being treated with Cefdinir and Flagyl. Wound culture from 07/05/20 showed Methicillin resistant Staphylococcus haemolyticus, Corynebacterium striatum, and Prevotella bivia. He has completed the Doxycycline and Flagyl. He went to the ED on 05/29 for fevers. They cultured his left groin ulcer and it showed Ecoli, Klebsiella pneumoniae, Serratia marcenscens, Streptococcus constellatus, Staphylococcus peudintermedia. He continued the Levaquin and Flagyl and has completed them. Wound culture 05/20/20- Serratia marcenscens, Escherichia coli, Streptococcus group F, Anaerobic cocci, Prevotella disiens. He was started on Levaquin and Flagyl and has completed them. After speaking with Dr. Palmer, the Strep group F was covered by the Levaquin. Operative culture from 03/22/20 - Enterococcus faecalis and Streptococcus group F, Anaerobic cocci and Prevotella bivia. He was treated with Linezolid and Flagyl and has completed them. He was hospitalized on 05/19/20 and his Hgb was 5.6. He received PRBC. EGD was done on 05/26/20. According to the patient he has a gastric ulcer and is being treated medically. He is scheduled to have a colonoscopy as well. Pathology - hidradenitis. Prealbumin from 03/23/20 was 8.2. Encourage nutritional supplementation with protein to help the healing process. HgbA1c from 03/11/20 was 8.8. Ultrasound of his his left lower extremity ordered and done 04/15/2020. It showed there was no evidence of left lower extremity deep vein thrombosis. Valves are competent and compressible. He will wear Tubigrip for compression. Instructed him to keep legs elevated when sitting. Instructed him to avoid standing for long periods of time. He sees Dr. Parks on Saturday. Progress of Wound: Improved. Objective Data Objective Data Vital Signs: Vital Signs Temp Pulse Resp BP 98.1 F 82 18 192/77 H 12/12/20 08:32 12/12/20 08:32 12/12/20 08:32 12/12/20 08:32 Oxygen Delivery Method Room Air Weight: 161 lb Body Mass Index (BMI) 22.1 Charges/Coding Procedures Integumentary 111xxx-113xx: [id number] Global Visit Physical Exam Const alert and oriented x3 General Appearance: cooperative HEENT normocephalic Resp normal respiratory effort Cardio regular rate GI non-tender Palpation: soft Extremity normal capillary refill Skin Wound Narrative: Left groin, left buttock/perianal ulcer is beefy pink and decreasing in size. Neuro CN's II-XII intact bilaterally Psych Appearance: grossly normal Debridement Note Debridement Note Wound debrided: groin/buttock/perianal ulcer Laterality: Left Type of Debridement: Excisional debridement Anesthesia Used: 5% Lidocaine Gel Depth: Down to and including healthy tissue and in the subcutaneous layer Percentage of wound debrided: 100 Instrument Used: 7mm curette Tissue Removed: Subcutaneous tissue and slough Severity: Fat Layer Exposed Amount of bleeding with debridement: Mild Bleeding Controlled with: Pressure and Compression and gauze Patient tolerated procedure: Patient tolerated procedure well Post-Debridement Measurements and Additional Note: Post-Debridement Measurements/Treatment - Nurse 1 - General Ulcer Assessment Start: 12/12/20 08:32 Freq: Status: Active Protocol: .PADMINI Activity Type Activity Date Activity User E-Sign Co-Sign Detail Recorded Client Recorded Date Recorded By Document 12/12/20 08:32 [facility] [id number] 12/12/20 08:36 [facility] 12/12/20 08:32 - Today's Visit Information 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 service 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 ) Arrival Mode Ambulatory Transfer Assistance None Accompanied by Patient Identification Verified (Name & Yes ) Patient Requires Transmission-Based No Precautions Height and Weight Body Mass Index (BMI) 22.1 BMI Classification Normal Vital Signs Temperature (97.8 F-99.1 F) 98.1 F Temperature Source Temporal Pulse Rate (60-100) 82 Pulse Location Monitor Respiratory Rate (12-18) 18 Respiratory rate source Observation Oxygen Delivery Method Room Air Blood Pressure (90/60-120/80) 192/77 H Blood Pressure Mean (mm Hg) 115 Source Monitor Position Sitting Blood Pressure Location Right Arm History Since Last Visit- (Skip if this is Patient's initial visit) Have you changed medications since your No last visit? Any new allergies or adverse reactions No Had a fall/change in ADL's that may No increase risk of falls Signs or symptoms of abuse and/or No neglect since last visit Have you been in the hospital since your No last visit? Has dressing in place as prescribed Yes Has compression in place as prescribed N/A Has offloadiing in place as prescribed N/A Experienced any changes in pain level or No management Left Footwear Regular Shoe Right Footwear Regular Shoe Pain Scale: 0-10 Numeric Is Patient Pain Free? Yes BEKA - Nurse 1 - General Ulcer Measurement Start: 12/12/20 08:32 Freq: Status: Active Protocol: Activity Type Activity Date Activity User E-Sign Co-Sign Detail Recorded Client Recorded Date Recorded By Document 12/12/20 08:32 [facility] [id number] 12/12/20 08:36 [facility] 12/12/20 08:32 Wound Center Nurse 1 #3 LEFT GROIN -Combined with other wound No -Current Size (cm) - Length 15.5 -Current Size (cm) - Width 7.2 -Current Size (cm) - Depth 0.1 -Total Square Cm 111.60 -Photo Taken No -Epithelialization Small 1-33% -Tunneling No -Undermining/Tunneling No -Circular Undermining No -Exudate Amt Large -Exudate Type Serosanguineous -Wound Margin Distinct, Outline Attached -Granulation Amt Large (67-100%) -Granulation Quality Red -Slough/Fibrin Yes -Necrosis Amt Small (1-33%) -Necrotic Tissue Type Adherent Slough -Texture ([place]-wound Skin Appearance) Assessed,Rash -Moisture ([place]-wound Skin Appearance) Assessed -Color ([place]-wound Skin Appearance) Assessed -Temperature ([place]-wound Skin No Abnormality Appearance) (Pt Warm) -Tenderness on Palpation ([place]-wound No Skin Appearance) -Ulcer Cleansing Soap and Water -Foul Odor after Cleansing No -Anesthetic Used 4% Lidocaine Solution BEKA - Nurse 2 - General Ulcer CM Notes Start: 12/12/20 08:32 Freq: Status: Active Protocol: Activity Type Activity Date Activity User E-Sign Co-Sign Detail Recorded Client Recorded Date Recorded By Document 12/12/20 09:02 LIZETTE [id number] 12/12/20 09:07 LIZETTE 12/12/20 09:02 Wound Center Nurse 2 -Time 09:05 -Correct Patient Yes -Correct Side, Site, Position Yes -Correct Procedure Yes -Procedure Performed Yes -Type of Procedure Debridement -Clinical Debridement Subcutaneous -Tissue Removed Subcutaneous -Post Debridement (cm) - Length 19 -Post Debridement (cm) - Width 9.5 -Post Debridement (cm) - Depth 1.0 -Total Square (Post) (cm) 180.5 -Area of Debridement (cm) - Length 19 -Area of Debridement (cm) - Width 9.5 -Total Square (Area) (cm) 180.5 -Tunneling No -Undermining/Tunneling No -Circular Undermining No -Wound/Ulcer Outcome Not Healed -Ulcer Cleansing Rinsed/ Irrigated with Saline -Foul Odor after Cleansing No -Bioengineered Tissue No -Bleeding Controlled with Pressure -Offloading No -Treatment Response Procedure Tolerated Well -Debridement - Subq, 1st 20sq cm Yes -Debridement, SubQ, ea addt'l 20sq cm 9 or part thereof Pain Scale: 0-10 Numeric Is Patient Pain Free? Yes WC - Nurse 3 - General Ulcer D/C NN Start: 12/12/20 08:32 Freq: Status: Active Protocol: Activity Type Activity Date Activity User E-Sign Co-Sign Detail Recorded Client Recorded Date Recorded By Document 12/12/20 09:13 DL [id number] 12/12/20 09:14 DL 12/12/20 09:13 Wound Care Nurse 3 #3 LEFT GROIN -Ulcer Cleansing Rinsed/ Irrigated with Saline -Foul Odor after Cleansing No -Primary Dressing Applied Aquacel AG 4x4 -Primary Dressing Covered/Secured with Secured with Tape,Other -Other Covering abd -Aquacel AG 4x4 1 Treatment Response Procedure Tolerated Well Pain Scale: 0-10 Numeric Is Patient Pain Free? 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: CODE(S): L97.122 - Non-pressure chronic ulcer of left thigh with fat layer exposed (2) Chronic ulcer of buttock: CODE(S): L98.419 - Non-pressure chronic ulcer of buttock with unspecified severity (3) Ulcer of left groin with fat layer exposed: CODE(S): L98.492 - Non-pressure chronic ulcer of skin of other sites with fat layer exposed (4) Diabetes mellitus type 2, uncontrolled, with complications: CODE(S): E11.8 - Type 2 diabetes mellitus with unspecified complications; E11.65 - Type 2 diabetes mellitus with hyperglycemia (5) Hydradenitis: CODE(S): L73.2 - Hidradenitis suppurativa (6) Malnutrition: CODE(S): E46 - Unspecified protein-calorie malnutrition QUALIFIERS: Malnutrition type: protein-calorie malnutrition Protein-calorie malnutrition severity: moderate Qualified Code(s): E44.0 - Moderate protein-calorie malnutrition (7) Acute post-operative pain: CODE(S): G89.18 - Other acute postprocedural pain (8) Tobacco dependence syndrome: CODE(S): F17.200 - Nicotine dependence, unspecified, uncomplicated PLAN: Wound care - Alternate between silver alginate and Dakin's 0.25% moistened gauze covered with ABD daily. Some areas are becoming difficult to keep Dakin's on. Will re-evaluate at next visit. He saw Dr. Osorio who would like him to do daily Epsom salt bath soaks for 20 minutes daily. This has shown an improvement in the erythema and there is no thick, white drainage from the hidradenitis today. Prealbumin 10.8 on 10/01/20. Encouraged increased protein intake to help with wound healing. Encouraged to stop smoking to help with wound healing. He sees Dr. Parks on Saturday for further vascular issues. He is complaining of pain. Will renew Percocet (20 tabs). PDMP reviewed. Follow up 2 weeks.
[2020-12-26 08:58] VITALS: BP 169/76; PULSE 71; TEMP 36.4; BMI 22.1
--- NOTE | 2020-12-26 15:30 | PCM.WC.PN ---
History of Present Illness Date of Service: 12/26/20 Chief Complaint: Nonhealing hidradenitis ulcer left inguinal, perineal, and base of scrotum. History of Wound: Patient admitted to the hospital for increased redness and swelling of his left groin and buttocks on 09/27/20. Patient was started on IV Vancomycin, Levaquin and Flagyl by ID. Surgery 09/29/20 - 1. Surgical preparation left perianal area with excision hidradenitis abscess (144 cm2). 2. Surgical preparation left posterior thigh with incision and drainage and excisional debridement hidradenitis abscess (96 cm2). Operative cultures from 09/29/20 positive for Streptococcus constellatus, Corynebacterium striatum, Anaerobic cocci, and Prevotella species. Pathology of left perianal and left posterior thigh abscess showed pieces of skin with underlying tisse with acute and chronic inflammation, granulation tissue reaction and abscess formation. 10/01/20 - Laparoscopic sigmoid colostomy placed by Dr. Osorio due to the complicated perineal wound secondary to hidradenitis suppurativa status post excision. Transferred TCU on 10/03/20. On Doxycycline and Cefdinir while in TCU. Discharged home on 10/28/20. 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 2.4 and 1.2 cm fluid collections along the medial subcutaneous tissues of the right buttock suggestive of localized abscesses. He saw Dr. Osorio who placed his colostomy, and he said this is all related to his hidradenitis and that Dr. Smith is able to keep treating him. He does suggest doing daily Epsom sitz baths to help with the drainage of the hidradenitis abscesses. Wound care - Alternate between silver alginate and Dakin's 0.25% moistened gauze covered with ABD daily. Some areas are becoming difficult to keep Dakin's on. Will re-evaluate at next visit. Today he denies fever. His appetite has not been good. Encouraged protein supplementation. Surgery 03/22/20 - 1. Surgical preparation left inguinal area with excision hidradenitis (315 cm2 total wound). 2. Surgical preparation perineal area with excision hidradenitis (315 cm2 total wound). 3. Surgical preparation base left scrotum with incision and drainage and excision hidradenitis (315 cm2 total wound). Wound culture from 09/05/20 positive for Streptococcus constellatus, Kocuria Kristinae, Staphylococcus epidermidis, Anaerobic cocci, Bacteroides caccae, Prevotella bivia and Lactobacillus fermentum. He is being treated with Cefdinir and Flagyl. Wound culture from 07/05/20 showed Methicillin resistant Staphylococcus haemolyticus, Corynebacterium striatum, and Prevotella bivia. He has completed the Doxycycline and Flagyl. He went to the ED on 05/29 for fevers. They cultured his left groin ulcer and it showed Ecoli, Klebsiella pneumoniae, Serratia marcenscens, Streptococcus constellatus, Staphylococcus peudintermedia. He continued the Levaquin and Flagyl and has completed them. Wound culture 05/20/20- Serratia marcenscens, Escherichia coli, Streptococcus group F, Anaerobic cocci, Prevotella disiens. He was started on Levaquin and Flagyl and has completed them. After speaking with Dr. Palmer, the Strep group F was covered by the Levaquin. Operative culture from 03/22/20 - Enterococcus faecalis and Streptococcus group F, Anaerobic cocci and Prevotella bivia. He was treated with Linezolid and Flagyl and has completed them. He was hospitalized on 05/19/20 and his Hgb was 5.6. He received PRBC. EGD was done on 05/26/20. According to the patient he has a gastric ulcer and is being treated medically. He is scheduled to have a colonoscopy as well. Pathology - hidradenitis. Prealbumin from 03/23/20 was 8.2. Encourage nutritional supplementation with protein to help the healing process. HgbA1c from 03/11/20 was 8.8. Ultrasound of his his left lower extremity ordered and done 04/15/2020. It showed there was no evidence of left lower extremity deep vein thrombosis. Valves are competent and compressible. He will wear Tubigrip for compression. Instructed him to keep legs elevated when sitting. Instructed him to avoid standing for long periods of time. He sees Dr. Parks on Saturday. Progress of Wound: Improved on the left ulcer. He is having increased pain and drainage from his right groin, even with doing the sitz baths. He has redness there with thick, white drainage. Objective Data Objective Data Vital Signs: Vital Signs Temp Pulse Resp BP 97.6 F L 71 18 169/76 H 12/26/20 08:58 12/26/20 08:58 12/12/20 08:32 12/26/20 08:58 Oxygen Delivery Method Room Air Weight: 161 lb Body Mass Index (BMI) 22.1 Charges/Coding Procedures Integumentary 111xxx-113xx: [id number] Global Visit Physical Exam Const alert and oriented x3 General Appearance: cooperative HEENT normocephalic Head and Scalp: atraumatic Eyes PERRL Lymph Lymphatic: no lymphedema noted Resp normal respiratory effort Cardio regular rate GI non-tender Palpation: soft Extremity normal capillary refill Extremity Narrative: Left leg +1 edema Skin Wound Narrative: Improved on the left ulcer. He is having increased pain and drainage from his right groin, even with doing the sitz baths. He has redness there with thick, white odoriferous drainage. Neuro CN's II-XII intact bilaterally Psych Appearance: grossly normal Debridement Note Debridement Note Wound debrided: groin/perineal/perianal/buttock ulcer Laterality: Left Type of Debridement: Excisional debridement Anesthesia Used: 5% Lidocaine Gel Depth: Down to and including healthy tissue and in the subcutaneous layer Percentage of wound debrided: 100 Instrument Used: 5mm curette Tissue Removed: Subcutaneous tissue and slough Severity: Fat Layer Exposed Amount of bleeding with debridement: Mild Bleeding Controlled with: Pressure and Compression and gauze Patient tolerated procedure: Patient tolerated procedure well Post-Debridement Measurements and Additional Note: Post-Debridement Measurements/Treatment BEKA - Nurse 1 - General Ulcer Assessment Start: 12/12/20 08:32 Freq: Status: Active Protocol: ROC Activity Type Activity Date Activity User E-Sign Co-Sign Detail Recorded Client Recorded Date Recorded By Document 12/12/20 08:32 [facility] [id number] 12/12/20 08:36 [facility] Document 12/26/20 08:58 BLUE [id number] 12/26/20 09:03 BLUE 12/12/20 12/26/20 08:32 08:58 WC - Today's Visit Information Type of service Follow-up Visit Follow-up Visit (Physician/MACHINE REPAIR PERSON (Physician/MACHINE REPAIR PERSON ) ) Arrival Mode Ambulatory Ambulatory Transfer Assistance None Accompanied by Patient Identification Verified (Name & Yes Yes ) Patient Requires Transmission-Based No Precautions Height and Weight Body Mass Index (BMI) 22.1 22.1 BMI Classification Normal Normal Vital Signs Temperature (97.8 F-99.1 F) 98.1 F 97.6 F L Temperature Source Temporal Temporal Pulse Rate (60-100) 82 71 Pulse Location Monitor Monitor Respiratory Rate (12-18) 18 Respiratory rate source Observation Oxygen Delivery Method Room Air Blood Pressure (90/60-120/80) 192/77 H 169/76 H Blood Pressure Mean (mm Hg) 115 107 Source Monitor Monitor Position Sitting Sitting Blood Pressure Location Right Arm Left Arm History Since Last Visit- (Skip if this is Patient's initial visit) Have you changed medications since your No No last visit? Any new allergies or adverse reactions No No Had a fall/change in ADL's that may No No increase risk of falls Signs or symptoms of abuse and/or No No neglect since last visit Have you been in the hospital since your No No last visit? Has dressing in place as prescribed Yes Yes Has compression in place as prescribed N/A N/A Has offloadiing in place as prescribed N/A N/A Experienced any changes in pain level or No No management Left Footwear Regular Shoe Regular Shoe Right Footwear Regular Shoe Regular Shoe Pain Scale: 0-10 Numeric Is Patient Pain Free? Yes Yes - Nurse 1 - General Ulcer Measurement Start: 12/12/20 08:32 Freq: Status: Active Protocol: Activity Type Activity Date Activity User E-Sign Co-Sign Detail Recorded Client Recorded Date Recorded By Document 12/12/20 08:32 [facility] [id number] 12/12/20 08:36 BM Document 12/26/20 08:58 KR [id number] 12/26/20 09:03 KR 12/12/20 12/26/20 08:32 08:58 Wound Center Nurse 1 #3 LEFT GROIN -Combined with other wound No -Current Size (cm) - Length 15.5 18.7 -Current Size (cm) - Width 7.2 9.5 -Current Size (cm) - Depth 0.1 0.1 -Total Square Cm 111.60 177.65 -Photo Taken No -Epithelialization Small 1-33% -Tunneling No -Undermining/Tunneling No -Circular Undermining No -Exudate Amt Large Medium -Exudate Type Serosanguineous Serosanguineous -Wound Margin Distinct, Distinct, Outline Outline Attached Attached -Granulation Amt Large (67-100%) Large (67-100%) -Granulation Quality Red Red -Slough/Fibrin Yes No -Necrosis Amt Small (1-33%) -Necrotic Tissue Type Adherent Slough -Texture ([place]imbola-wound Skin Appearance) Assessed,Rash Assessed, Scarring -Moisture ([place]ola-wound Skin Appearance) Assessed No Abnormality, Assessed -Color ([place]ola-wound Skin Appearance) Assessed No Abnormality, Assessed -Temperature ([place]ola-wound Skin No Abnormality No Abnormality Appearance) (Pt Warm) (Pt Warm) -Tenderness on Palpation ([place]ola-wound No No Skin Appearance) -Ulcer Cleansing Soap and Water Rinsed/ Irrigated with Saline -Foul Odor after Cleansing No No -Anesthetic Used 4% Lidocaine 4% Lidocaine Solution Solution WC - Nurse 2 - General Ulcer CM Notes Start: 12/12/20 08:32 Freq: Status: Active Protocol: Activity Type Activity Date Activity User E-Sign Co-Sign Detail Recorded Client Recorded Date Recorded By Document 12/12/20 09:02 JF [id number] 12/12/20 09:07 Document 12/26/20 09:17 JF [id number] 12/26/20 09:22 12/12/20 12/26/20 09:02 09:17 Wound Center Nurse 2 #3 LEFT GROIN -Time 09:05 09:18 -Correct Patient Yes Yes -Correct Side, Site, Position Yes Yes -Correct Procedure Yes Yes -Procedure Performed Yes Yes -Type of Procedure Debridement Debridement -Clinical Debridement Subcutaneous Subcutaneous -Tissue Removed Subcutaneous Subcutaneous -Post Debridement (cm) - Length 19 14.5 -Post Debridement (cm) - Width 9.5 10.5 -Post Debridement (cm) - Depth 1.0 1 -Total Square (Post) (cm) 180.5 152.25 -Area of Debridement (cm) - Length 19 14.5 -Area of Debridement (cm) - Width 9.5 10.5 -Total Square (Area) (cm) 180.5 152.25 -Tunneling No No -Undermining/Tunneling No No -Circular Undermining No No -Wound/Ulcer Outcome Not Healed Not Healed -Ulcer Cleansing Rinsed/ Rinsed/ Irrigated with Irrigated with Saline Saline -Foul Odor after Cleansing No No -Bioengineered Tissue No No -Bleeding Controlled with Pressure Pressure -Offloading No No -Treatment Response Procedure Procedure Tolerated Well Tolerated Well -Debridement - Subq, 1st 20sq cm Yes Yes -Debridement, SubQ, ea addt'l 20sq cm 9 7 or part thereof Pain Scale: 0-10 Numeric Is Patient Pain Free? Yes Yes - Nurse 3 - General Ulcer D/C NN Start: 12/12/20 08:32 Freq: Status: Active Protocol: Activity Type Activity Date Activity User E-Sign Co-Sign Detail Recorded Client Recorded Date Recorded By Document 12/12/20 09:13 DL [id number] 12/12/20 09:14 DL Document 12/26/20 09:30 KR [id number] 12/26/20 09:31 KR 12/12/20 12/26/20 09:13 09:30 Wound Care Nurse 3 #3 LEFT GROIN -Ulcer Cleansing Rinsed/ Irrigated with Saline -Foul Odor after Cleansing No -Primary Dressing Applied Aquacel AG 4x4 Aquacel AG 4x4 -Primary Dressing Covered/Secured with Secured with Dry Gauze, Tape,Other Secured with Tape -Other Covering abd -Aquacel AG 4x4 1 1 Treatment Response Procedure Tolerated Well Pain Scale: 0-10 Numeric Is Patient Pain Free? Yes Yes - Visit Discharge Discharge Condition Stable Stable Ambulatory Status Ambulatory Ambulatory Transportation Private Auto Private Auto Accompanied by Facility Type Home Health Assessment/Plan Assessment/Plan (1) Chronic ulcer of left thigh with fat layer exposed: CODE(S): L97.122 - Non-pressure chronic ulcer of left thigh with fat layer exposed (2) Chronic ulcer of buttock: CODE(S): L98.419 - Non-pressure chronic ulcer of buttock with unspecified severity (3) Ulcer of left groin with fat layer exposed: CODE(S): L98.492 - Non-pressure chronic ulcer of skin of other sites with fat layer exposed (4) Hydradenitis: CODE(S): L73.2 - Hidradenitis suppurativa (5) Diabetes mellitus type 2, uncontrolled, with complications: CODE(S): E11.8 - Type 2 diabetes mellitus with unspecified complications; E11.65 - Type 2 diabetes mellitus with hyperglycemia (6) Tobacco dependence syndrome: CODE(S): F17.200 - Nicotine dependence, unspecified, uncomplicated (7) Edema of both legs: CODE(S): R60.0 - Localized edema PLAN: Wound care - Alternate between silver alginate and Dakin's 0.25% moistened gauze covered with ABD daily. Some areas are becoming difficult to keep Dakin's on. Will re-evaluate at next visit. He saw Dr. Osorio who would like him to do daily Epsom salt bath soaks for 20 minutes daily. He is having issues with a hidradenitis flare on his right groin. It is red, painful with thick, white, odoriferous drainage. Will start him on Doxycycline to see if this will help temper his infection. He is currently on Prednisone from his PCP due to right eye pain. Prealbumin 10.8 on 10/01/20. Encouraged increased protein intake to help with wound healing. Encouraged to stop smoking to help with wound healing. He sees Dr. Parks on 12/28/20 for further vascular issues. He is dealing with his edema. He is complaining of pain. Will renew Percocet (20 tabs). PDMP reviewed. Follow up 2 weeks.
== END 2021-01-10 23:59 ==
LOC: WC 08:30
PROVIDERS: PCP Nurse Practitioner; Referring Provider Nurse Practitioner Family; Visit Provider Nurse Practitioner Family
DX: L73.2 Hidradenitis suppurativa (principal); Z93.3 Colostomy status; K25.9 Gastric ulcer, unspecified as acute or chronic, without hemorrhage or perforation; L98.492 Non-pressure chronic ulcer of skin of other sites with fat layer exposed; L97.122 Non-pressure chronic ulcer of left thigh with fat layer exposed; F17.200 Nicotine dependence, unspecified, uncomplicated; E11.65 Type 2 diabetes mellitus with hyperglycemia; R60.0 Localized edema
CPT/HCPCS: 11042; 11045

== ENCOUNTER → 2020-12-28 13:09 | Outpatient (CLI) | payer OTHER, SELFPAY ==
[2020-12-16 10:23] LABS: BUN 27 mg/dL (7-18); Creatinine, Serum 1.34 mg/dL (0.70-1.30); EST Glomerular Filtration Rate 58 mL/min (>60); Est Glom Filt Rate - Afr Amer 71 mL/min (>60)
--- NOTE | 2020-12-28 13:16 | CDU_ITS ---
Reason For Study: STENOSIS Rt. Velocities/BP Lt. Velocities/BP Prox CCA 104/11 cm/sec. Prox CCA 119/16 cm/sec. Mid CCA 86/15 cm/sec. Mid CCA 116/21 cm/sec. Dist CCA 67/15 cm/sec. Dist CCA 78/19 cm/sec. Prox ICA 83/24 cm/sec. Prox ICA 61/13 cm/sec. Mid ICA 79/27 cm/sec. Mid ICA 85/18 cm/sec. Dist ICA 99/36 cm/sec. Dist ICA 96/30 cm/sec. Rt. ICA/CCA = 1.2. Lt. ICA/CCA = .8. Prox ECA 92/10 cm/sec. Prox ECA 125/10 cm/sec. Rt. Vert. 49/16 cm/sec. Right Extracranial There is homogeneous, smooth atherosclerotic plaque noted in the right common carotid artery. There is homogeneous, irregular atherosclerotic plaque noted in the right internal carotid artery. There is homogeneous, smooth atherosclerotic plaque noted in the right external carotid artery. Antegrade flow is noted in the right vertebral artery. There is homogeneous, smooth atherosclerotic plaque noted in the right bulb. There is homogeneous, irregular atherosclerotic plaque noted in the right bulb. Left Extracranial There is homogeneous, smooth atherosclerotic plaque noted in the left common carotid artery. There is heterogeneous, irregular atherosclerotic plaque noted in the left internal carotid artery. There is homogeneous, smooth atherosclerotic plaque noted in the left external carotid artery. Flow could not be demonstrated in the left vertebral artery. There is heterogeneous, irregular atherosclerotic plaque noted in the left bulb. Procedure Carotid Duplex 16917. Exam performed in department. VL/Carotid Duplex Ultrasound Interpretation Summary Mild (<50%) stenosis right extracranial internal carotid. Mild (<50%) stenosis left extracranial internal carotid. Flow within the right verterbral artery is antegrade. Left ve rtebral occluded. Flow could not be demonstrated in the left vertebral artery. Ordering Physician: Juliano Parks Referring Physician: VINAY RO Performed By: Amanda Genao, CONTRERAS, RVT
--- NOTE | 2020-12-28 13:18 | CT_ITS ---
STUDY: CTA OF THE ABDOMINAL AORTA AND BILATERAL LOWER EXTREMITIES REASON FOR EXAM: Male, 55 years old. Stricture of the arteries RADIATION DOSAGE (If Supplied By Facility): CTDIvol = ( 7.12 ) mGy, DLP = ( 1034.37 ) mGycm TECHNIQUE: Axial CT angiography multi-detector data acquisition was obtained from the diaphragm to the feet following intravenous administration of IV 100mL Isovue-370. Axial images and MIP images were reconstructed from the axial data set. Post-processing of the angiographic images was performed, with multiplanar reformation and 3D reconstruction. Individualized dose optimization techniques were used for this CT. TECHNICAL QUALITY: Good COMPARISON: None. Descriptors of Narrowing: None (0%) Mild (< 50%) Moderate (50-70%) Severe (70-90%) Subtotal/Total Occlusion (90-100%) Non-Evaluable (technically non-diagnostic FINDINGS: Abdominal aorta: Atherosclerotic changes of the abdominal aorta without marked stricture dissection or aneurysm. Celiac and superior mesenteric arteries: No demonstrated narrowing. Inferior mesenteric artery: No demonstrated narrowing. Right renal artery(arteries): No demonstrated narrowing. Left renal artery(arteries): No demonstrated narrowing. Right common iliac artery: Minimal atherosclerotic changes without stenosis. Right external iliac artery: Occluded Right internal iliac artery: Minimal atherosclerotic changes without stenosis. Left common iliac artery: Occluded Left external iliac artery: Occluded Left internal iliac artery: Occluded proximally. Reconstitutes distally via collaterals. RIGHT LOWER EXTREMITY Right common femoral artery: Reconstitutes via collaterals. Atherosclerotic changes with mild stenosis. Right profundus femoris: No demonstrated narrowing. Right superficial femoral: Normal proximally. There is short segment occlusion in the distal SFA. Right popliteal artery: No demonstrated narrowing. Right tibioperoneal trunk: No demonstrated narrowing. Right anterior tibial artery: No demonstrated narrowing. Right posterior tibial artery: No demonstrated narrowing. Right peroneal artery: No demonstrated narrowing. LEFT LOWER EXTREMITY Left common femoral artery: Reconstitute via collaterals. There is atherosclerotic change and mild stenosis. Left profundus femoris: Reconstitutes via collaterals. Otherwise grossly normal. Left superficial femoral: Focal areas of calcific plaque with mild stenosis. Left popliteal artery: No demonstrated narrowing. Left tibioperoneal trunk: No demonstrated narrowing. Left anterior tibial artery: No demonstrated narrowing. Left posterior tibial artery: No demonstrated narrowing. Left peroneal artery: No demonstrated narrowing. Lung bases are clear. The heart is normal in size. Geographic fatty infiltration of the liver. Normal gallbladder and biliary ductal system. Normal spleen. Normal pancreas. Normal adrenal glands. Normal kidneys. Normal visualized ureter. Normal IVC and retroperitoneum. Normal stomach. Normal small bowel. There is evidence of resection of the left colon with left lower quadrant colostomy. The rectal stump appears grossly normal. Normal retrocecal appendix. Normal urinary bladder. Normal prostate. No pelvic lymphadenopathy. No free air or free fluid is seen within the peritoneal cavity. Left lower quadrant colostomy. The abdominal wall is otherwise intact. There are enlarged bilateral inguinal lymph nodes.. There is mildly enhancing soft tissue thickening along the inner thighs and in the perineal region raising concern for inflammatory change. Minimal foci of gas is seen in the soft tissues. Similar findings are seen on MRI of 10/27/2020. 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 Degenerative changes lumbar spine and hips. CT/CTA Abd w/Runoff W/WO Contrast IMPRESSION: 1. Atherosclerotic changes of the abdominal aorta without aneurysm or dissection. 2. Occlusion of the right external iliac artery. 3. Short segment occlusion of the distal right SFA. 4. Occlusion of the left common iliac and external iliac arteries. 5. Enhancing soft tissue thickening in the perineum and groin pain with small foci of air. These findings appear stable when compared to a prior MRI. Fatty infiltration of the liver. Electronically Signed: Serafin Mobley DO at 17:49 EST Tel [phone], Service support ,
== END ==
PROVIDERS: PCP Nurse Practitioner; Referring Provider Surgery Vascular Surgery; Visit Provider Surgery Vascular Surgery
DX: I77.1 Stricture of artery (principal); I70.213 Atherosclerosis of native arteries of extremities with intermittent claudication, bilateral legs; I10 Essential (primary) hypertension; I20.9 Angina pectoris, unspecified; E11.9 Type 2 diabetes mellitus without complications; D64.9 Anemia, unspecified; F17.290 Nicotine dependence, other tobacco product, uncomplicated; I65.29 Occlusion and stenosis of unspecified carotid artery
CPT/HCPCS: 36415; 75635; 82565; 84520; 93880; Q9967

== ENCOUNTER → 2021-01-12 21:27 | Outpatient (CLI) | payer OTHER, SELFPAY ==
[2021-01-12 21:33] LABS: Absolute Lymphocyte Count 2.41 X10^3/uL (0.83-4.51); Absolute Neutrophil Count 9.2 X10^3/uL (2.0-7.7); Basophil# 0.07 X10^3/uL; Basophil% 0.6 % (0-1); Eosinophil# 0.08 X10^3/uL; Eosinophils% 0.6 % (0-5); Hematocrit 35.4 % (40-54); Hemoglobin 11.5 g/dL (13.0-16.5); Lymphocyte # 2.41 X10^3/ul (0.83-4.51); Lymphocyte % 19.1 % (19-41); Mean Corp Hgb Conc 32.5 g/dL (32-36); Mean Corpuscular Hgb 27.5 pg (27.0-32.0); Mean Corpuscular Volume 84.7 fL (80-94); Mean Platelet Vol. 10.5 fl (6.2-12.0); Monocyte# 0.81 X10^3/uL; Monocyte% 6.4 % (0-10); NRBC Flagged by Analyzer 0 % (0-5); Neutrophil # 9.22 X10^3/uL (2.7-7.7); Neutrophil % 72.8 % (47-70); Platelet Count 298 K/mm3 (150-450); RBC Distribution Width CV 14.1 % (11.6-14.6); RBC Distribution Width SD 43.6 fl (35.1-43.9); Red Blood Count 4.18 M/mm3 (4.6-6.2); White Blood Count 12.7 K/mm3 (4.4-11.0)
[2021-01-12 21:54] LABS: ALB/GLOB Ratio 0.3 RATIO (0.9-2.4); AST(SGOT) 8 U/L (15-37); Alanine Aminotransfer ALT/SGPT 12 U/L (16-61); Albumin, Serum 1.7 g/dL (3.2-5.0); Alkaline Phosphatase 125 U/L (45-117); Anion Gap 6 (5-15); BUN 18 mg/dL (7-18); BUN/Creat Ratio 12.9 RATIO (10-20); Calcium,Total 9.3 mg/dL (8.5-10.1); Chloride 101 mmol/L (98-107); Cholesterol 227 mg/dL (200); Creatinine, Serum 1.39 mg/dL (0.70-1.30); EST Glomerular Filtration Rate 56 mL/min (>60); Est Glom Filt Rate - Afr Amer 68 mL/min (>60); Globulin 5.6 g/dL (2.2-4.2); Glucose 368 mg/dL (74-106); Hemoglobin A1c 11.9 % (3.8-5.6); High Density Lipoprotein 51 mg/dL; Potassium 4.4 mmol/L (3.5-5.1); Protein, Total 7.3 g/dL (6.4-8.2); Sodium Level 134 mmol/L (136-145); Thyroid Stim Hormone (TSH) 1.01 uIU/mL (0.358-3.74); Triglycerides 146 mg/dL; Very Low Density Lipoprotein 29 mg/dL (5-40)
[2021-01-15 17:07] LABS: ANTINUCLEAR ANTIBODIES DIRECT Positive (Negative); Anti-Centromere B Ab <0.2 AI (0.0-0.9); Anti-Chromatin <0.2 AI (0.0-0.9); Anti-Jo <0.2 AI (0.0-0.9); Anti-Scleroderma-70 AB <0.2 AI (0.0-0.9); RNP Ab 0.4 AI (0.0-0.9); SJOGREN'S Anti-SS-A test < 0.2 AI (0.0-0.9); SJOGREN'S Anti-SS-B test < 0.2 AI (0.0-0.9); Smith Ab <0.2 AI (0.0-0.9)
[2021-01-16 08:59] LABS: Anti-dsDNA Ab 12 IU/mL (0-9)
== END ==
PROVIDERS: PCP Nurse Practitioner; Visit Provider Nurse Practitioner
DX: E11.59 Type 2 diabetes mellitus with other circulatory complications (principal); R53.1 Weakness; D63.8 Anemia in other chronic diseases classified elsewhere; R53.81 Other malaise; E78.5 Hyperlipidemia, unspecified
CPT/HCPCS: 80053; 80061; 83036; 84443; 85025; 86038; 86225; 86235

== ENCOUNTER 2021-01-14 22:15 | Emergency (ER) | payer OTHER, SELFPAY ==
[2021-01-14 22:15] VITALS: BP 175/72; PULSE 90; RESP 16; TEMP 36.8; O2SAT 97; BMI 24.9
--- NOTE | 2021-01-14 23:01 | RAD_ITS ---
STUDY: X-RAY - RIGHT KNEE REASON FOR EXAM: Male, 55 years old. pain TECHNIQUE: 4 view(s) of the knee. COMPARISON: None. FINDINGS: No acute fracture or dislocation. No destructive bone changes. Joint spaces are well-maintained. Normal alignment. Soft tissues are unremarkable. No radiopaque foreign body or soft tissue gas. RAD/Knee 4 or More Views IMPRESSION: Normal x-ray examination of the knee. Electronically Signed: Clara Peres MD at 23:53 EST Tel , Service support ,
--- NOTE | 2021-01-15 00:17 | ED.VIS.LOWEX ---
HPI History of Present Illness Chief Complaint: Lower Extremity Injury Narrative Narrative: 55-year-old male presenting with nontraumatic right knee pain. He describes it as pain on the medial aspect of the inferior portion of the right knee. Patient is ambulatory. He states he took Tylenol, 2 tramadol, hydromorphone at home today. His pain is not improving. He has not tried ice. He states he is not allowed to take anti-inflammatories. He has had no systemic signs or symptoms. [facility] Medical History Abscess of buttock, left Abscess of left thigh Acute blood loss anemia Anemia Anemia of chronic disease Back pain due to injury Colostomy in place Complicated open wound of left thigh COPD (chronic obstructive pulmonary disease) Coronary artery disease Current use of insulin Diabetes Diabetes mellitus type 2, uncontrolled, with complications Diabetes type 2, uncontrolled Heart disease Hidradenitis suppurativa of anus History of stress test Hydradenitis Hydradenitis Hyperlipidemia associated with type 2 diabetes mellitus Hypertension Malnutrition Myocardial infarct Open wound of left buttock with complication Open wound of scrotum Pain in the groin Skin ulcer of scrotum Sleep apnea Smoker Ulcer of left groin with fat layer exposed Ulcer of perineum with fat layer exposed Home Medications oxycodone 10 mg PO Q4H PRN PRN 3 Days #12 tab 10/03/20 [Rx Last Taken Unknown] hydromorphone 2 mg PO Q3H PRN PRN 7 Days #56 tab 10/26/20 [Rx Last Taken Unknown] nicotine 21 mg TRANSDERMAL DAILY 30 Days #30 ea 10/26/20 [Rx Last Taken Unknown] amlodipine 10 mg tablet 10 mg PO DAILY #30 tab 11/29/20 [Rx Last Taken Unknown] docusate sodium 100 mg capsule 100 mg PO BID #60 cap 11/29/20 [Rx Last Taken Unknown] lisinopril 40 mg tablet 40 mg PO DAILY #30 tab 11/29/20 [Rx Last Taken Unknown] doxycycline monohydrate 100 mg PO BID 14 Days #28 tab 12/27/20 [Rx Last Taken Unknown] tramadol 50 mg tablet 50 mg PO TID PRN 12/30/20 [History Last Taken Unknown] clopidogrel 75 mg PO DAILY 01/14/21 [History Last Taken Unknown] Allergy/AdvReac Type Severity Reaction Status Date / Time Penicillins Allergy Unknown Verified 01/14/21 22:21 Sulfa (Sulfonamide Allergy Unknown Verified 01/14/21 22:21 Antibiotics) bupropion [From Wellbutrin] AdvReac Severe change in Verified 01/14/21 22:21 personality ,meanness and smoked more Family History Aunt Lung disease lung cancer Father Heart disease Hypertension Family history of high cholesterol Diabetes Mother Diabetes Daughter Epilepsy Surgical History History of coronary artery stent placement History of incision and drainage History of removal of cyst History of tonsillectomy and adenoidectomy Hx of CABG Hx of hernia repair Stented coronary artery Social History household members: spouse Smoking Status: Current every day smoker tobacco type: cigarettes alcohol intake: never substance use type: does not use additional social history: DOES NOT TAKE ASPIRIN DOES NOT TAKE IBUPROFEN ROS ROS ED Constitutional Constitutional ED: Denies chills or fever(s) Eyes Eyes: Denies blurry vision or diplopia ENT ENT ED: Denies rhinorrhea or sore throat Cardiovascular Cardiovascular: Denies chest pain or palpitations Respiratory/Chest Respiratory/Chest: Denies cough or dyspnea Gastrointestinal Gastrointestinal: Denies abdominal pain or nausea Genitourinary Genitourinary ED: Denies dysuria or hematuria Musculoskeletal Musculoskeletal: Reports other Details: Right knee pain ; Denies arthralgias or myalgias Integumentary Denies Abrasions or rash Neurologic Neurologic: Denies headache(s) or weakness EXAM Physical Exam Const Vital Signs: 01/14/21 22:15 Temperature 98.3 F Temperature Source Temporal Pulse Rate 90 Respiratory Rate 16 Blood Pressure 175/72 H Blood Pressure Mean 106 Pulse Ox 97 Oxygen Delivery Method Room Air Positive well nourished General Appearance ED: NAD HEENT normocephalic and atraumatic Resp normal respiratory effort and clear to auscultation bilaterally Cardio regular rate and regular rhythm Extremity Extremity Narrative: Tenderness palpation over the right medial joint line. Slight edema at the inferior aspect medially. Right knee has full range of motion. Right knee extensor mechanism is intact. There is no warmth or erythema. Neuro oriented x3 Sensorium / Orientation: alert Psych mental status grossly normal Skin no wounds Rashes: no rashes MDM MDM MDM Narrative Medical decision making narrative: Patient given a shot of Toradol and Dilaudid for control his pain. His x-ray on my interpretation of the right knee does not show any acute findings. The radiologist does agree. Patient will be given a referral to follow-up with orthopedics as this is a chronic intermittent problem. Patient is discharged home in stable condition. Impression: 1. Right knee strain Lab Data Attestation: I reviewed the patient's lab results. Radiography Diagnostic Testing: Clinical Impression(s) from Imaging Studies Knee X-Ray 01/14/21 23:01 IMPRESSION: Normal x-ray examination of the knee. Electronically Signed: Clara Peres MD at 23:53 EST Tel , Service support , Discharge Plan Triage Chief Complaint: Lower Extremity Injury ED Provider: Kvng Callahan Dx/Rx/DC Orders Prescriptions: No Action docusate sodium 100 mg capsule 100 mg PO BID Qty: 60 RF: 12 amlodipine 10 mg tablet 10 mg PO DAILY Qty: 30 RF: 12 lisinopril 40 mg tablet 40 mg PO DAILY Qty: 30 RF: 12 tramadol 50 mg tablet 50 mg PO TID PRN (Reason: Pain (Scale Score 4-6)) RF: 0 oxycodone 5 mg Tablet 10 mg PO Q4H PRN PRN (Reason: Pain Score 4-5) 3 Days Qty: 12 RF: 0 hydromorphone 2 mg Tablet 2 mg PO Q3H PRN PRN (Reason: Pain Score 6-10) 7 Days Qty: 56 RF: 0 nicotine 21 mg/24 hr Patch 24 Hour 21 mg transdermal DAILY 30 Days Qty: 30 RF: 0 doxycycline monohydrate 100 mg tablet 100 mg PO BID 14 Days Qty: 28 RF: 0 clopidogrel 75 mg Tablet 75 mg PO DAILY RF: 0 Primary Care Provider: Adina Bhat NP
[2021-01-15] MEDS: Ketorolac 15 MG/ML Vial IM (00:47)
[2021-01-15] MEDS: HYDROmorphone 0.5 MG/0.5 ML SYRINGE IM (00:48)
== END 2021-01-15 01:15 | disposition home or self-care (01) ==
PROVIDERS: Emergency Provider Student in an Organized Health Care Education/Training Program; PCP Nurse Practitioner
DX: S86.911A Strain of unspecified muscle(s) and tendon(s) at lower leg level, right leg, initial encounter (principal); I25.2 Old myocardial infarction; G47.30 Sleep apnea, unspecified; F17.210 Nicotine dependence, cigarettes, uncomplicated; I25.10 Atherosclerotic heart disease of native coronary artery without angina pectoris; I10 Essential (primary) hypertension; Z93.3 Colostomy status; Z79.899 Other long term (current) drug therapy; X58.XXXA Exposure to other specified factors, initial encounter
CPT/HCPCS: 73564; 96372; 99281

== ENCOUNTER 2021-01-30 08:45 | Outpatient (RCR) | payer OTHER, SELFPAY ==
[2021-01-11 00:25] VITALS: BP 169/76; PULSE 71; RESP 18; TEMP 36.4; BMI 22.1
[2021-01-16 08:31] VITALS: BP 178/57; PULSE 87; RESP 20; TEMP 36.6; BMI 22.1
--- NOTE | 2021-01-16 11:58 | PN.PCM_ITS ---
History of Present Illness Date of Service: 01/16/21 Chief Complaint: Nonhealing hidradenitis ulcer left inguinal, perineal, and base of scrotum. History of Wound: Patient admitted to the hospital for increased redness and swelling of his left groin and buttocks on 09/27/20. Patient was started on IV Vancomycin, Levaquin and Flagyl by ID. Surgery 09/29/20 - 1. Surgical preparation left perianal area with excision hidradenitis abscess (144 cm2). 2. Surgical preparation left posterior thigh with incision and drainage and excisional debridement hidradenitis abscess (96 cm2). Operative cultures from 09/29/20 positive for Streptococcus constellatus, Corynebacterium striatum, Anaerobic cocci, and Prevotella species. Pathology of left perianal and left posterior thigh abscess showed pieces of skin with underlying tisse with acute and chronic inflammation, granulation tissue reaction and abscess formation. 10/01/20 - Laparoscopic sigmoid colostomy placed by Dr. Osorio due to the complicated perineal wound secondary to hidradenitis suppurativa status post excision. Transferred TCU on 10/03/20. On Doxycycline and Cefdinir while in TCU. Discharged home on 10/28/20. 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 2.4 and 1.2 cm fluid collections along the medial subcutaneous tissues of the right buttock suggestive of localized abscesses. He saw Dr. Osorio who placed his colostomy, and he said this is all related to his hidradenitis and that Dr. Smith is able to keep treating him. He does suggest doing daily Epsom sitz baths to help with the drainage of the hidradenitis abscesses. Wound care - Alternate between silver alginate and Dakin's 0.25% moistened gauze covered with ABD daily. Some areas are becoming difficult to keep Dakin's on. Will re-evaluate at next visit. Today he denies fever. His appetite has not been good. Encouraged protein supplementation. Surgery 03/22/20 - 1. Surgical preparation left inguinal area with excision hidradenitis (315 cm2 total wound). 2. Surgical preparation perineal area with excision hidradenitis (315 cm2 total wound). 3. Surgical preparation base left scrotum with incision and drainage and excision hidradenitis (315 cm2 total wound). Wound culture from 09/05/20 positive for Streptococcus constellatus, Kocuria Kristinae, Staphylococcus epidermidis, Anaerobic cocci, Bacteroides caccae, Prevotella bivia and Lactobacillus fermentum. He is being treated with Cefdinir and Flagyl. Wound culture from 07/05/20 showed Methicillin resistant Staphylococcus haemolyticus, Corynebacterium striatum, and Prevotella bivia. He has completed the Doxycycline and Flagyl. He went to the ED on 05/29 for fevers. They cultured his left groin ulcer and it showed Ecoli, Klebsiella pneumoniae, Serratia marcenscens, Streptococcus constellatus, Staphylococcus peudintermedia. He continued the Levaquin and Flagyl and has completed them. Wound culture 05/20/20- Serratia marcenscens, Escherichia coli, Streptococcus group F, Anaerobic cocci, Prevotella disiens. He was started on Levaquin and Flagyl and has completed them. After speaking with Dr. Palmer, the Strep group F was covered by the Levaquin. Operative culture from 03/22/20 - Enterococcus faecalis and Streptococcus group F, Anaerobic cocci and Prevotella bivia. He was treated with Linezolid and Flagyl and has completed them. He was hospitalized on 05/19/20 and his Hgb was 5.6. He received PRBC. EGD was done on 05/26/20. According to the patient he has a gastric ulcer and is being treated medically. He is scheduled to have a colonoscopy as well. Pathology - hidradenitis. Prealbumin from 03/23/20 was 8.2. Encourage nutritional supplementation with protein to help the healing process. HgbA1c from 03/11/20 was 8.8. Ultrasound of his his left lower extremity ordered and done 04/15/2020. It showed there was no evidence of left lower extremity deep vein thrombosis. Valves are competent and compressible. He will wear Tubigrip for compression. Instructed him to keep legs elevated when sitting. Instructed him to avoid standing for long periods of time. He sees Dr. Parks on Saturday. Progress of Wound: Left groin/buttock ulcer is decreasing in size. The abscess on the right buttock and groin is draining white, thick drainage today. He states he is still doing his daily sitz bath to help with that but it is painful. He completed the Doxycycline that he was on. Objective Data Objective Data Vital Signs: Vital Signs Temp Pulse Resp BP 97.9 F 87 20 H 178/57 H 01/16/21 08:31 01/16/21 08:31 01/16/21 08:31 01/16/21 08:31 Weight: 161 lb Body Mass Index (BMI) 22.1 Charges/Coding Procedures Integumentary 111xxx-113xx: 48230 Ayla subq tissue 20 sq cm/< Add On Codes: 14003 Ayla subq tissue add-on (x5) Physical Exam Const alert and oriented x3 General Appearance: cooperative HEENT normocephalic Head and Scalp: atraumatic Eyes PERRL Lymph Lymphatic: no lymphedema noted Resp normal respiratory effort Cardio regular rate GI non-tender Palpation: soft Extremity Extremity Narrative: Bilateral lower extremity edema, left leg is more edematous than right at a +2. Skin Wound Narrative: Left groin/buttock ulcer is beefy pink and decreasing in size. His right buttock hidradenitis abscess is draining thick, white drainage today. Neuro CN's II-XII intact bilaterally Psych Appearance: grossly normal Debridement Note Debridement Note Wound debrided: groin/buttock ulcer Laterality: Left Type of Debridement: Excisional debridement Anesthesia Used: 4% Lidocaine Solution Depth: Down to and including healthy tissue and in the subcutaneous layer Percentage of wound debrided: 100 Instrument Used: 5mm curette Tissue Removed: Subcutaneous tissue and slough Severity: Fat Layer Exposed Amount of bleeding with debridement: Mild Bleeding Controlled with: Pressure and Compression and gauze Patient tolerated procedure: Patient tolerated procedure well Post-Debridement Measurements and Additional Note: Post-Debridement Measurements/Treatment WC - Nurse 1 - General Ulcer Assessment Start: 01/16/21 08:28 Freq: Status: Active Protocol: ROC Activity Type Activity Date Activity User E-Sign Co-Sign Detail Recorded Client Recorded Date Recorded By Document 01/16/21 08:31 DL [id number] 01/16/21 08:39 DL 01/16/21 08:31 - Today's Visit Information Type of service Follow-up Visit (Physician/APPLICATIONS SYSTEM ANALYST ) Arrival Mode Ambulatory Transfer Assistance None Patient Identification Verified (Name & Yes ) Patient Requires Transmission-Based No Precautions Height and Weight Body Mass Index (BMI) 22.1 BMI Classification Normal Vital Signs Temperature (97.8 F-99.1 F) 97.9 F Temperature Source Temporal Pulse Rate (60-100) 87 Pulse Location Monitor Respiratory Rate (12-18) 20 H Respiratory rate source Observation Blood Pressure (90/60-120/80) 178/57 H Blood Pressure Mean (mm Hg) 97 Source Monitor History Since Last Visit- (Skip if this is Patient's initial visit) Have you changed medications since your No last visit? Any new allergies or adverse reactions No Had a fall/change in ADL's that may No increase risk of falls Signs or symptoms of abuse and/or No neglect since last visit Have you been in the hospital since your No last visit? Has dressing in place as prescribed Yes Has offloadiing in place as prescribed Yes Experienced any changes in pain level or No management Pain Scale: 0-10 Numeric Is Patient Pain Free? Yes - Nurse 1 - General Ulcer Measurement Start: 01/16/21 08:28 Freq: Status: Active Protocol: Activity Type Activity Date Activity User E-Sign Co-Sign Detail Recorded Client Recorded Date Recorded By Document 01/16/21 08:31 DL [id number] 01/16/21 08:39 DL 01/16/21 08:31 Wound Center Nurse 1 #3 LEFT GROIN -Current Size (cm) - Length 14.5 -Current Size (cm) - Width 9.2 -Current Size (cm) - Depth 0.1 -Total Square Cm 133.40 -Photo Taken No -Exudate Amt Medium -Exudate Type Serosanguineous -Wound Margin Distinct, Outline Attached -Granulation Amt Large (67-100%) -Granulation Quality Red -Necrosis Amt Small (1-33%) -Necrotic Tissue Type Adherent Slough -Structure Exposed N/A -Texture ([place]-wound Skin Appearance) Scarring -Moisture ([place]-wound Skin Appearance) No Abnormality -Color ([place]-wound Skin Appearance) No Abnormality -Temperature ([place]-wound Skin No Abnormality Appearance) (Pt Warm) -Ulcer Cleansing Soap and Water -Foul Odor after Cleansing Yes, Due to Product Use -Anesthetic Used 4% Lidocaine Solution WC - Nurse 2 - General Ulcer CM Notes Start: 01/16/21 08:28 Freq: Status: Active Protocol: Activity Type Activity Date Activity User E-Sign Co-Sign Detail Recorded Client Recorded Date Recorded By Document 01/16/21 08:56 LIZETTE [id number] 01/16/21 09:55 LIZETTE 01/16/21 08:56 Wound Center Nurse 2 -Time 08:56 -Correct Patient Yes -Correct Side, Site, Position Yes -Correct Procedure Yes -Procedure Performed Yes -Type of Procedure Debridement -Clinical Debridement Subcutaneous -Tissue Removed Subcutaneous -Post Debridement (cm) - Length 13 -Post Debridement (cm) - Width 8 -Post Debridement (cm) - Depth 0.7 -Total Square (Post) (cm) 104 -Area of Debridement (cm) - Length 13 -Area of Debridement (cm) - Width 8 -Total Square (Area) (cm) 104 -Tunneling No -Undermining/Tunneling No -Circular Undermining No -Wound/Ulcer Outcome Not Healed -Ulcer Cleansing Rinsed/ Irrigated with Saline -Foul Odor after Cleansing No -Bioengineered Tissue No -Bleeding Controlled with Pressure -Offloading No -Treatment Response Procedure Tolerated Well -Debridement - Subq, 1st 20sq cm Yes -Debridement, SubQ, ea addt'l 20sq cm 5 or part thereof Pain Scale: 0-10 Numeric Is Patient Pain Free? Yes - Nurse 3 - General Ulcer D/C NN Start: 01/16/21 08:28 Freq: Status: Active Protocol: Activity Type Activity Date Activity User E-Sign Co-Sign Detail Recorded Client Recorded Date Recorded By Document 01/16/21 09:11 [id number] 01/16/21 09:12 DL 01/16/21 09:11 Wound Care Nurse 3 #3 LEFT GROIN -Ulcer Cleansing Rinsed/ Irrigated with Saline -Foul Odor after Cleansing No -Primary Dressing Applied Aquacel AG 4x4 -Primary Dressing Covered/Secured with Dry Gauze, Secured with Tape -Aquacel AG 4x4 1 Treatment Response Procedure Tolerated Well Pain Scale: 0-10 Numeric Is Patient Pain Free? 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: CODE(S): L97.122 - Non-pressure chronic ulcer of left thigh with fat layer exposed (2) Chronic ulcer of buttock: CODE(S): L98.419 - Non-pressure chronic ulcer of buttock with unspecified severity (3) Ulcer of left groin with fat layer exposed: CODE(S): L98.492 - Non-pressure chronic ulcer of skin of other sites with fat layer exposed (4) Hydradenitis: CODE(S): L73.2 - Hidradenitis suppurativa (5) Diabetes mellitus type 2, uncontrolled, with complications: CODE(S): E11.8 - Type 2 diabetes mellitus with unspecified complications; E11.65 - Type 2 diabetes mellitus with hyperglycemia (6) Tobacco dependence syndrome: CODE(S): F17.200 - Nicotine dependence, unspecified, uncomplicated (7) Edema of both legs: CODE(S): R60.0 - Localized edema PLAN: Wound care - Alternate between silver alginate and Dakin's 0.25% moistened gauze covered with ABD daily. Some areas are becoming difficult to keep Dakin's on. Will re-evaluate at next visit. He saw Dr. Osorio who would like him to do daily Epsom salt bath soaks for 20 minutes daily. He is having issues with a hidradenitis flare on his right groin. It is red, painful with thick, white, odoriferous drainage. He completed the Doxycycline, the hidradenitis showed minimal improvement on the Doxycycline. He completed Prednisone from his PCP due to right eye pain. Prealbumin 10.8 on 10/01/20. Encouraged increased protein intake to help with wound healing. Encouraged to stop smoking to help with wound healing. He saw Dr. Parks on 12/28/20 for further vascular issues. He is dealing with his edema. Patient is waiting to have a vascular procedure. He is now on blood thinners from Dr. Parks until he has his procedure. Follow up 2 weeks.
[2021-01-30 08:28] VITALS: BP 189/73; PULSE 94; RESP 16; TEMP 36.2; BMI 22.1
--- NOTE | 2021-01-30 09:12 | PCM.WC.PN ---
History of Present Illness Date of Service: 01/30/21 Chief Complaint: Nonhealing hidradenitis ulcer left inguinal, perineal, and base of scrotum. History of Wound: Patient admitted to the hospital for increased redness and swelling of his left groin and buttocks on 09/27/20. Patient was started on IV Vancomycin, Levaquin and Flagyl by ID. Surgery 09/29/20 - 1. Surgical preparation left perianal area with excision hidradenitis abscess (144 cm2). 2. Surgical preparation left posterior thigh with incision and drainage and excisional debridement hidradenitis abscess (96 cm2). Operative cultures from 09/29/20 positive for Streptococcus constellatus, Corynebacterium striatum, Anaerobic cocci, and Prevotella species. Pathology of left perianal and left posterior thigh abscess showed pieces of skin with underlying tisse with acute and chronic inflammation, granulation tissue reaction and abscess formation. 10/01/20 - Laparoscopic sigmoid colostomy placed by Dr. Osorio due to the complicated perineal wound secondary to hidradenitis suppurativa status post excision. Transferred TCU on 10/03/20. On Doxycycline and Cefdinir while in TCU. Discharged home on 10/28/20. 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 2.4 and 1.2 cm fluid collections along the medial subcutaneous tissues of the right buttock suggestive of localized abscesses. He saw Dr. Osorio who placed his colostomy, and he said this is all related to his hidradenitis and that Dr. Smith is able to keep treating him. He does suggest doing daily Epsom sitz baths to help with the drainage of the hidradenitis abscesses. Wound care - Silver alginate covered with ABD daily. Today he denies fever. His appetite has not been good. Encouraged protein supplementation. Surgery 03/22/20 - 1. Surgical preparation left inguinal area with excision hidradenitis (315 cm2 total wound). 2. Surgical preparation perineal area with excision hidradenitis (315 cm2 total wound). 3. Surgical preparation base left scrotum with incision and drainage and excision hidradenitis (315 cm2 total wound). Wound culture from 09/05/20 positive for Streptococcus constellatus, Kocuria Kristinae, Staphylococcus epidermidis, Anaerobic cocci, Bacteroides caccae, Prevotella bivia and Lactobacillus fermentum. He is being treated with Cefdinir and Flagyl. Wound culture from 07/05/20 showed Methicillin resistant Staphylococcus haemolyticus, Corynebacterium striatum, and Prevotella bivia. He has completed the Doxycycline and Flagyl. He went to the ED on 05/29 for fevers. They cultured his left groin ulcer and it showed Ecoli, Klebsiella pneumoniae, Serratia marcenscens, Streptococcus constellatus, Staphylococcus peudintermedia. He continued the Levaquin and Flagyl and has completed them. Wound culture 05/20/20- Serratia marcenscens, Escherichia coli, Streptococcus group F, Anaerobic cocci, Prevotella disiens. He was started on Levaquin and Flagyl and has completed them. After speaking with Dr. Palmer, the Strep group F was covered by the Levaquin. Operative culture from 03/22/20 - Enterococcus faecalis and Streptococcus group F, Anaerobic cocci and Prevotella bivia. He was treated with Linezolid and Flagyl and has completed them. He was hospitalized on 05/19/20 and his Hgb was 5.6. He received PRBC. EGD was done on 05/26/20. According to the patient he has a gastric ulcer and is being treated medically. He is scheduled to have a colonoscopy as well. Pathology - hidradenitis. Prealbumin from 03/23/20 was 8.2. Encourage nutritional supplementation with protein to help the healing process. HgbA1c from 03/11/20 was 8.8. Ultrasound of his his left lower extremity ordered and done 04/15/2020. It showed there was no evidence of left lower extremity deep vein thrombosis. Valves are competent and compressible. He will wear Tubigrip for compression. Instructed him to keep legs elevated when sitting. Instructed him to avoid standing for long periods of time. He saw Dr. Kasey live had an angioplasty of some of his vessels in his legs last week. He states that his PCP ran some blood work and states he has Lupus. He has an appointment in March with a facsimile operator. Progress of Wound: Left groin/buttock ulcer is decreasing in size. The abscess on the right buttock and groin is not draining today. He just completed his antibiotics. Will renew his Doxycycline so he has it on hand over the holiday weekend in case the redness and drainage start to worsen. He states he is still doing his daily sitz bath to help with the drainage. Objective Data Objective Data Vital Signs: Vital Signs Temp Pulse Resp BP 97.2 F L 94 16 189/73 H 01/30/21 08:28 01/30/21 08:28 01/30/21 08:28 01/30/21 08:28 Oxygen Delivery Method Room Air Weight: 161 lb Body Mass Index (BMI) 22.1 Charges/Coding Procedures Integumentary 111xxx-113xx: [id number] Ayla subq tissue 20 sq cm/< Add On Codes: 75239 Ayla subq tissue add-on (x5) Physical Exam Const alert and oriented x3 General Appearance: cooperative HEENT normocephalic Head and Scalp: atraumatic Eyes PERRL Lymph Lymphatic: no lymphedema noted Resp normal respiratory effort Cardio regular rate GI non-tender Palpation: soft Extremity normal capillary refill Skin Wound Narrative: Left groin, perineum and left buttock ulcer is pink, granulation tissue present. The right buttock abscess is currently stable, no drainage present today. Neuro CN's II-XII intact bilaterally Psych Appearance: grossly normal Debridement Note Debridement Note Wound debrided: Groin/perineum/buttock ulcer Laterality: Left Type of Debridement: Excisional debridement Anesthesia Used: 4% Lidocaine Solution Depth: Down to and including healthy tissue and in the subcutaneous layer Percentage of wound debrided: 100 Instrument Used: 5mm curette Tissue Removed: Subcutaneous tissue and slough Severity: Fat Layer Exposed Amount of bleeding with debridement: Mild Bleeding Controlled with: Pressure and Compression and gauze Patient tolerated procedure: Patient tolerated procedure well Post-Debridement Measurements and Additional Note: Post-Debridement Measurements/Treatment WC - Nurse 1 - General Ulcer Assessment Start: 01/16/21 08:28 Freq: Status: Active Protocol: ROC Activity Type Activity Date Activity User E-Sign Co-Sign Detail Recorded Client Recorded Date Recorded By Document 01/16/21 08:31 DL [id number] 01/16/21 08:39 DL Document 01/30/21 08:28 BM [id number] 01/30/21 08:36 BMF 01/16/21 01/30/21 08:31 08:28 - Today's Visit Information Type of service Follow-up Visit Follow-up Visit (Physician/FROG SHAKER (Physician/FROG SHAKER ) ) Arrival Mode Ambulatory Ambulatory Transfer Assistance None None Patient Identification Verified (Name & Yes Yes ) Patient Requires Transmission-Based No No Precautions Height and Weight Body Mass Index (BMI) 22.1 22.1 BMI Classification Normal Normal Vital Signs Temperature (97.8 F-99.1 F) 97.9 F 97.2 F L Temperature Source Temporal Temporal Pulse Rate (60-100) 87 94 Pulse Location Monitor Monitor Respiratory Rate (12-18) 20 H 16 Respiratory rate source Observation Observation Oxygen Delivery Method Room Air Blood Pressure (90/60-120/80) 178/57 H 189/73 H Blood Pressure Mean (mm Hg) 97 111 Source Monitor Monitor Position Supine Blood Pressure Location Left Arm History Since Last Visit- (Skip if this is Patient's initial visit) Have you changed medications since your No No last visit? Any new allergies or adverse reactions No No Had a fall/change in ADL's that may No No increase risk of falls Signs or symptoms of abuse and/or No No neglect since last visit Have you been in the hospital since your No No last visit? Has dressing in place as prescribed Yes Yes Has compression in place as prescribed N/A Has offloadiing in place as prescribed Yes N/A Experienced any changes in pain level or No No management Left Footwear Regular Shoe Right Footwear Regular Shoe Pain Scale: 0-10 Numeric Is Patient Pain Free? Yes Yes - Nurse 1 - General Ulcer Measurement Start: 01/16/21 08:28 Freq: Status: Active Protocol: Activity Type Activity Date Activity User E-Sign Co-Sign Detail Recorded Client Recorded Date Recorded By Document 01/16/21 08:31 DL [id number] 01/16/21 08:39 DL Document 01/30/21 08:28 [facility] [id number] 01/30/21 08:36 BMF 01/16/21 01/30/21 08:31 08:28 Wound Center Nurse 1 #3 LEFT GROIN -Combined with other wound No -Current Size (cm) - Length 14.5 11.2 -Current Size (cm) - Width 9.2 3 -Current Size (cm) - Depth 0.1 0.1 -Total Square Cm 133.40 33.6 -Photo Taken No No -Epithelialization Small 1-33% -Tunneling No -Undermining/Tunneling No -Circular Undermining No -Exudate Amt Medium Large -Exudate Type Serosanguineous Serosanguineous -Wound Margin Distinct, Distinct, Outline Outline Attached Attached -Granulation Amt Large (67-100%) Large (67-100%) -Granulation Quality Red Red -Slough/Fibrin Yes -Necrosis Amt Small (1-33%) Small (1-33%) -Necrotic Tissue Type Adherent Slough Adherent Slough -Structure Exposed N/A -Texture ([place]-wound Skin Appearance) Scarring Assessed, Scarring -Moisture ([place]-wound Skin Appearance) No Abnormality Assessed -Color ([place]-wound Skin Appearance) No Abnormality Assessed -Temperature ([place]-wound Skin No Abnormality No Abnormality Appearance) (Pt Warm) (Pt Warm) -Tenderness on Palpation ([place]ola-wound No Skin Appearance) -Ulcer Cleansing Soap and Water Soap and Water -Foul Odor after Cleansing Yes, Due to No Product Use -Anesthetic Used 4% Lidocaine 4% Lidocaine Solution Solution WC - Nurse 2 - General Ulcer CM Notes Start: 01/16/21 08:28 Freq: Status: Active Protocol: Activity Type Activity Date Activity User E-Sign Co-Sign Detail Recorded Client Recorded Date Recorded By Document 01/16/21 08:56 [id number] 01/16/21 09:55 Document 01/30/21 08:46 [id number] 01/30/21 08:52 01/16/21 01/30/21 08:56 08:46 Wound Center Nurse 2 #3 LEFT GROIN -Time 08:56 08:47 -Correct Patient Yes Yes -Correct Side, Site, Position Yes Yes -Correct Procedure Yes Yes -Procedure Performed Yes Yes -Type of Procedure Debridement Debridement -Clinical Debridement Subcutaneous Subcutaneous -Tissue Removed Subcutaneous Subcutaneous -Post Debridement (cm) - Length 13 15 -Post Debridement (cm) - Width 8 8 -Post Debridement (cm) - Depth 0.7 0.4 -Total Square (Post) (cm) 104 120 -Area of Debridement (cm) - Length 13 15 -Area of Debridement (cm) - Width 8 8 -Total Square (Area) (cm) 104 120 -Tunneling No No -Undermining/Tunneling No No -Circular Undermining No No -Wound/Ulcer Outcome Not Healed Not Healed -Ulcer Cleansing Rinsed/ Rinsed/ Irrigated with Irrigated with Saline Saline -Foul Odor after Cleansing No No -Bioengineered Tissue No No -Bleeding Controlled with Pressure Pressure -Offloading No No -Treatment Response Procedure Procedure Tolerated Well Tolerated Well -Debridement - Subq, 1st 20sq cm Yes Yes -Debridement, SubQ, ea addt'l 20sq cm 5 5 or part thereof Pain Scale: 0-10 Numeric Is Patient Pain Free? Yes Yes - Nurse 3 - General Ulcer D/C NN Start: 01/16/21 08:28 Freq: Status: Active Protocol: Activity Type Activity Date Activity User E-Sign Co-Sign Detail Recorded Client Recorded Date Recorded By Document 01/16/21 09:11 DL [id number] 01/16/21 09:12 DL Document 01/30/21 08:58 [facility] [id number] 01/30/21 08:59 BM 01/16/21 01/30/21 09:11 08:58 Wound Care Nurse 3 #3 LEFT GROIN -Ulcer Cleansing Rinsed/ Rinsed/ Irrigated with Irrigated with Saline Saline -Foul Odor after Cleansing No No -Primary Dressing Applied Aquacel AG 4x4 Aquacel AG 4x4 -Other Dressing drsg per [place] disaster recovery analyst -Primary Dressing Covered/Secured with Dry Gauze, Secured with Secured with Tape,Other Tape -Other Covering abd -Aquacel AG 4x4 1 1 Treatment Response Procedure Procedure Tolerated Well Tolerated Well Pain Scale: 0-10 Numeric Is Patient Pain Free? 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: CODE(S): L97.122 - Non-pressure chronic ulcer of left thigh with fat layer exposed (2) Chronic ulcer of buttock: CODE(S): L98.419 - Non-pressure chronic ulcer of buttock with unspecified severity (3) Ulcer of perineum with fat layer exposed: CODE(S): L98.492 - Non-pressure chronic ulcer of skin of other sites with fat layer exposed (4) Hydradenitis: CODE(S): L73.2 - Hidradenitis suppurativa (5) Diabetes type 2, uncontrolled: CODE(S): E11.65 - Type 2 diabetes mellitus with hyperglycemia (6) Tobacco dependence syndrome: CODE(S): F17.200 - Nicotine dependence, unspecified, uncomplicated (7) Edema of both legs: CODE(S): R60.0 - Localized edema PLAN: Wound care - Silver alginate covered with ABD daily. He saw Dr. Osorio who would like him to do daily Epsom salt bath soaks for 20 minutes daily. He is having issues with a hidradenitis flare on his right groin. He completed the Doxycycline. I will renew it so he can start it if his right groin/buttocks starts to increase pain, redness and drainage. He completed Prednisone from his PCP due to right eye pain. Prealbumin 10.8 on 10/01/20. Encouraged increased protein intake to help with wound healing. Encouraged to stop smoking to help with wound healing. He states he has cut back to 1/2 pack per day. He saw Dr. Parks recently and he did a procedure with a balloon on his vessels. Dr. Parks is dealing with his edema. His PCP states he now has Lupus due to labwork, he will see a facsimile operator in March. Follow up 2 weeks.
== END 2021-02-10 23:59 ==
LOC: WC 08:45
PROVIDERS: PCP Nurse Practitioner; Referring Provider Nurse Practitioner Family; Visit Provider Nurse Practitioner Family
DX: L73.2 Hidradenitis suppurativa (principal); Z93.3 Colostomy status; K25.9 Gastric ulcer, unspecified as acute or chronic, without hemorrhage or perforation; R60.0 Localized edema; L97.122 Non-pressure chronic ulcer of left thigh with fat layer exposed; E11.65 Type 2 diabetes mellitus with hyperglycemia; F17.200 Nicotine dependence, unspecified, uncomplicated; L98.492 Non-pressure chronic ulcer of skin of other sites with fat layer exposed
CPT/HCPCS: 11042; 11045

== ENCOUNTER 2021-03-13 08:45 | Outpatient (RCR) | payer OTHER, SELFPAY ==
[2021-02-11 00:24] VITALS: BP 189/73; PULSE 94; RESP 16; TEMP 36.2; BMI 22.1
[2021-02-13 08:48] VITALS: RESP 16; TEMP 36.4; BMI 22.1
--- NOTE | 2021-02-13 09:55 | PCM.WC.PN ---
History of Present Illness Date of Service: 02/13/21 Chief Complaint: Nonhealing hidradenitis ulcer left inguinal, perineal, and base of scrotum. History of Wound: Patient admitted to the hospital for increased redness and swelling of his left groin and buttocks on 09/27/20. Patient was started on IV Vancomycin, Levaquin and Flagyl by ID. Surgery 09/29/20 - 1. Surgical preparation left perianal area with excision hidradenitis abscess (144 cm2). 2. Surgical preparation left posterior thigh with incision and drainage and excisional debridement hidradenitis abscess (96 cm2). Operative cultures from 09/29/20 positive for Streptococcus constellatus, Corynebacterium striatum, Anaerobic cocci, and Prevotella species. Pathology of left perianal and left posterior thigh abscess showed pieces of skin with underlying tisse with acute and chronic inflammation, granulation tissue reaction and abscess formation. 10/01/20 - Laparoscopic sigmoid colostomy placed by Dr. Osorio due to the complicated perineal wound secondary to hidradenitis suppurativa status post excision. Transferred TCU on 10/03/20. On Doxycycline and Cefdinir while in TCU. Discharged home on 10/28/20. 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 2.4 and 1.2 cm fluid collections along the medial subcutaneous tissues of the right buttock suggestive of localized abscesses. He saw Dr. Osorio who placed his colostomy, and he said this is all related to his hidradenitis and that Dr. Smith is able to keep treating him. He does suggest doing daily Epsom sitz baths to help with the drainage of the hidradenitis abscesses. Wound care - Silver alginate covered with ABD daily. Today he denies fever. His appetite has not been good. Encouraged protein supplementation. Surgery 03/22/20 - 1. Surgical preparation left inguinal area with excision hidradenitis (315 cm2 total wound). 2. Surgical preparation perineal area with excision hidradenitis (315 cm2 total wound). 3. Surgical preparation base left scrotum with incision and drainage and excision hidradenitis (315 cm2 total wound). Wound culture from 09/05/20 positive for Streptococcus constellatus, Kocuria Kristinae, Staphylococcus epidermidis, Anaerobic cocci, Bacteroides caccae, Prevotella bivia and Lactobacillus fermentum. He is being treated with Cefdinir and Flagyl. Wound culture from 07/05/20 showed Methicillin resistant Staphylococcus haemolyticus, Corynebacterium striatum, and Prevotella bivia. He has completed the Doxycycline and Flagyl. He went to the ED on 05/29 for fevers. They cultured his left groin ulcer and it showed Ecoli, Klebsiella pneumoniae, Serratia marcenscens, Streptococcus constellatus, Staphylococcus peudintermedia. He continued the Levaquin and Flagyl and has completed them. Wound culture 05/20/20- Serratia marcenscens, Escherichia coli, Streptococcus group F, Anaerobic cocci, Prevotella disiens. He was started on Levaquin and Flagyl and has completed them. After speaking with Dr. Palmer, the Strep group F was covered by the Levaquin. Operative culture from 03/22/20 - Enterococcus faecalis and Streptococcus group F, Anaerobic cocci and Prevotella bivia. He was treated with Linezolid and Flagyl and has completed them. He was hospitalized on 05/19/20 and his Hgb was 5.6. He received PRBC. EGD was done on 05/26/20. According to the patient he has a gastric ulcer and is being treated medically. He is scheduled to have a colonoscopy as well. Pathology - hidradenitis. Prealbumin from 03/23/20 was 8.2. Encourage nutritional supplementation with protein to help the healing process. HgbA1c from 03/11/20 was 8.8. Ultrasound of his his left lower extremity ordered and done 04/15/2020. It showed there was no evidence of left lower extremity deep vein thrombosis. Valves are competent and compressible. He will wear Tubigrip for compression. Instructed him to keep legs elevated when sitting. Instructed him to avoid standing for long periods of time. He saw Dr. Kasey live had an angioplasty of some of his vessels in his legs last week. He states that his PCP ran some blood work and states he has Lupus. He has an appointment in March with a hot metal crane operator. Progress of Wound: He now has a 4 cm tunnel on the posterior portion near the perianal area. It is too small to pack. It was discovered when measuring the depth of the ulcer. His over ulcer size has improved and is not a cluster with healing skin bridge between sections of his ulcer. Objective Data Objective Data Vital Signs: Vital Signs Temp Pulse Resp BP 97.6 F L 94 16 189/73 H 02/13/21 08:48 02/11/21 00:24 02/13/21 08:48 02/11/21 00:24 Oxygen Delivery Method Room Air Weight: 161 lb Body Mass Index (BMI) 22.1 Charges/Coding Procedures Integumentary 111xxx-113xx: [id number] Ayla subq tissue 20 sq cm/< Add On Codes: 57131 Ayla subq tissue add-on (x4) Physical Exam Const alert and oriented x3 General Appearance: cooperative HEENT normocephalic Head and Scalp: atraumatic Resp normal respiratory effort Cardio regular rate GI non-tender Palpation: soft Extremity normal capillary refill General Extremity: edema Skin Wound Narrative: Left groin, perineal, perianal ulcer is pink with areas of healed skin to make this ulcer now a cluster. He has a 4 cm tunnel in the perianal ulcer area, it is too small to pack, only able to get the stick end of the cotton swap into it. Neuro CN's II-XII intact bilaterally Psych Appearance: grossly normal Debridement Note Debridement Note Wound debrided: groin/perineal/perianal ulcer Laterality: Left Type of Debridement: Excisional debridement Anesthesia Used: 5% Lidocaine Gel Depth: Down to and including healthy tissue and in the subcutaneous layer Percentage of wound debrided: 100 Instrument Used: 7mm curette Tissue Removed: Subcutaneous tissue and slough Severity: Fat Layer Exposed Amount of bleeding with debridement: Mild Bleeding Controlled with: Pressure and Compression and gauze Patient tolerated procedure: Patient tolerated procedure well Post-Debridement Measurements and Additional Note: Post-Debridement Measurements/Treatment WC - Nurse 1 - General Ulcer Assessment Start: 02/13/21 08:48 Freq: Status: Active Protocol: ROC Activity Type Activity Date Activity User E-Sign Co-Sign Detail Recorded Client Recorded Date Recorded By Document 02/13/21 08:48 [facility] [id number] 02/13/21 08:53 BMF 02/13/21 08:48 - Today's Visit Information Type of service Follow-up Visit (Physician/INSTRUCTIONAL SUPPORT ASSISTANT ) Arrival Mode Ambulatory Transfer Assistance None Patient Identification Verified (Name & Yes ) Patient Requires Transmission-Based No Precautions Height and Weight Body Mass Index (BMI) 22.1 BMI Classification Normal Vital Signs Temperature (97.8 F-99.1 F) 97.6 F L Temperature Source Temporal Pulse Location Monitor Respiratory Rate (12-18) 16 Respiratory rate source Observation Oxygen Delivery Method Room Air Source Monitor Position Supine Blood Pressure Location Right Arm History Since Last Visit- (Skip if this is Patient's initial visit) Have you changed medications since your No last visit? Any new allergies or adverse reactions No Had a fall/change in ADL's that may No increase risk of falls Signs or symptoms of abuse and/or No neglect since last visit Have you been in the hospital since your No last visit? Has dressing in place as prescribed Yes Has compression in place as prescribed N/A Has offloadiing in place as prescribed N/A Experienced any changes in pain level or No management Left Footwear Regular Shoe Right Footwear Regular Shoe Pain Scale: 0-10 Numeric Is Patient Pain Free? Yes - Nurse 1 - General Ulcer Measurement Start: 02/13/21 08:48 Freq: Status: Active Protocol: Activity Type Activity Date Activity User E-Sign Co-Sign Detail Recorded Client Recorded Date Recorded By Document 02/13/21 08:48 [facility] [id number] 02/13/21 08:53 [facility] 02/13/21 08:48 Wound Center Nurse 1 #3 LEFT GROIN -Combined with other wound No -Current Size (cm) - Length 10.5 -Current Size (cm) - Width 7.8 -Current Size (cm) - Depth 0.1 -Total Square Cm 81.90 -Photo Taken No -Epithelialization Small 1-33% -Tunneling No -Undermining/Tunneling No -Circular Undermining No -Exudate Amt Large -Exudate Type Serosanguineous -Wound Margin Distinct, Outline Attached -Granulation Amt Large (67-100%) -Granulation Quality Red -Texture ([place]-wound Skin Appearance) Assessed, Scarring -Moisture ([place]-wound Skin Appearance) Assessed -Color ([place]-wound Skin Appearance) Assessed -Temperature ([place]-wound Skin No Abnormality Appearance) (Pt Warm) -Tenderness on Palpation ([place]-wound No Skin Appearance) -Ulcer Cleansing Soap and Water -Foul Odor after Cleansing No -Anesthetic Used 4% Lidocaine Solution BEKA - Nurse 2 - General Ulcer CM Notes Start: 02/13/21 08:48 Freq: Status: Active Protocol: Activity Type Activity Date Activity User E-Sign Co-Sign Detail Recorded Client Recorded Date Recorded By Document 02/13/21 09:09 [id number] 02/13/21 09:15 02/13/21 09:09 Wound Center Nurse 2 -Time 09:10 -Correct Patient Yes -Correct Side, Site, Position Yes -Correct Procedure Yes -Procedure Performed Yes -Type of Procedure Debridement -Clinical Debridement Subcutaneous -Tissue Removed Subcutaneous -Post Debridement (cm) - Length 12.0 -Post Debridement (cm) - Width 8.0 -Post Debridement (cm) - Depth 4.0 -Total Square (Post) (cm) 96.00 -Area of Debridement (cm) - Length 12 -Area of Debridement (cm) - Width 8.0 -Total Square (Area) (cm) 96.0 -Tunneling No -Undermining/Tunneling No -Circular Undermining No -Wound/Ulcer Outcome Not Healed -Ulcer Cleansing Rinsed/ Irrigated with Saline -Foul Odor after Cleansing No -Bioengineered Tissue No -Bleeding Controlled with Pressure -Offloading No -Treatment Response Procedure Tolerated Well -Debridement - Subq, 1st 20sq cm Yes -Debridement, SubQ, ea addt'l 20sq cm 4 or part thereof Pain Scale: 0-10 Numeric Is Patient Pain Free? Yes - Nurse 3 - General Ulcer D/C NN Start: 02/13/21 08:48 Freq: Status: Active Protocol: Activity Type Activity Date Activity User E-Sign Co-Sign Detail Recorded Client Recorded Date Recorded By Document 02/13/21 09:23 [facility] [id number] 02/13/21 09:24 [facility] 02/13/21 09:23 Wound Care Nurse 3 #3 LEFT GROIN -Ulcer Cleansing Rinsed/ Irrigated with Saline -Foul Odor after Cleansing No -Primary Dressing Applied Aquacel AG 4x4 -Other Dressing drsg per ak audit manager -Primary Dressing Covered/Secured with Secured with Tape,Other -Other Covering abd -Aquacel AG 4x4 1 Treatment Response Procedure Tolerated Well Pain Scale: 0-10 Numeric Is Patient Pain Free? 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: CODE(S): L97.122 - Non-pressure chronic ulcer of left thigh with fat layer exposed (3) Chronic ulcer of buttock: CODE(S): L98.419 - Non-pressure chronic ulcer of buttock with unspecified severity (4) Hydradenitis: CODE(S): L73.2 - Hidradenitis suppurativa (5) Edema of both legs: CODE(S): R60.0 - Localized edema (6) Diabetes mellitus: CODE(S): E11.9 - Type 2 diabetes mellitus without complications QUALIFIERS: Diabetes mellitus complication detail: with other circulatory complications Diabetes mellitus complication status: with circulatory complication 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 use: without buttermilk drier operator use Diabetes mellitus type: type 2 Qualified Code(s): E11.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 He has a 4 cm tunnel on the left perianal area that is too small to pack. Will continue to monitor this area. He saw Dr. Osorio who would like him to do daily Epsom salt bath soaks for 20 minutes daily. He is having issues with a hidradenitis flare on his right groin. He completed the Doxycycline. It is more stable. He completed Prednisone from his PCP due to right eye pain. Prealbumin 10.8 on 10/01/20. Encouraged increased protein intake to help with wound healing. Encouraged to stop smoking to help with wound healing. He states he has cut back to 1/2 pack per day. He saw Dr. Parks recently and he did a procedure with a balloon on his vessels. Dr. Parks is dealing with his edema. His PCP states he now has Lupus due to labwork, he will see a hot metal crane operator in March. Follow up 2 weeks.
[2021-03-13 08:32] VITALS: BP 196/71; PULSE 76; RESP 16; TEMP 36.3; BMI 22.1
--- NOTE | 2021-03-13 09:45 | PCM.WC.PN ---
History of Present Illness Date of Service: 03/13/21 Chief Complaint: Nonhealing hidradenitis ulcer left inguinal, perineal, and base of scrotum. History of Wound: Patient admitted to the hospital for increased redness and swelling of his left groin and buttocks on 09/27/20. Patient was started on IV Vancomycin, Levaquin and Flagyl by ID. Surgery 09/29/20 - 1. Surgical preparation left perianal area with excision hidradenitis abscess (144 cm2). 2. Surgical preparation left posterior thigh with incision and drainage and excisional debridement hidradenitis abscess (96 cm2). Operative cultures from 09/29/20 positive for Streptococcus constellatus, Corynebacterium striatum, Anaerobic cocci, and Prevotella species. Pathology of left perianal and left posterior thigh abscess showed pieces of skin with underlying tisse with acute and chronic inflammation, granulation tissue reaction and abscess formation. 10/01/20 - Laparoscopic sigmoid colostomy placed by Dr. Osorio due to the complicated perineal wound secondary to hidradenitis suppurativa status post excision. Transferred TCU on 10/03/20. On Doxycycline and Cefdinir while in TCU. Discharged home on 10/28/20. 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 2.4 and 1.2 cm fluid collections along the medial subcutaneous tissues of the right buttock suggestive of localized abscesses. He saw Dr. Osorio who placed his colostomy, and he said this is all related to his hidradenitis and that Dr. Smith is able to keep treating him. He does suggest doing daily Epsom sitz baths to help with the drainage of the hidradenitis abscesses. Wound care - Silver alginate covered with ABD daily. Pack silver into the tunnel on the perianal portion of the ulcer. Today he denies fever. His appetite has not been good. Encouraged protein supplementation. Surgery 03/22/20 - 1. Surgical preparation left inguinal area with excision hidradenitis (315 cm2 total wound). 2. Surgical preparation perineal area with excision hidradenitis (315 cm2 total wound). 3. Surgical preparation base left scrotum with incision and drainage and excision hidradenitis (315 cm2 total wound). Wound culture from 09/05/20 positive for Streptococcus constellatus, Kocuria Kristinae, Staphylococcus epidermidis, Anaerobic cocci, Bacteroides caccae, Prevotella bivia and Lactobacillus fermentum. He is being treated with Cefdinir and Flagyl. Wound culture from 07/05/20 showed Methicillin resistant Staphylococcus haemolyticus, Corynebacterium striatum, and Prevotella bivia. He has completed the Doxycycline and Flagyl. He went to the ED on 05/29 for fevers. They cultured his left groin ulcer and it showed Ecoli, Klebsiella pneumoniae, Serratia marcenscens, Streptococcus constellatus, Staphylococcus peudintermedia. He continued the Levaquin and Flagyl and has completed them. Wound culture 05/20/20- Serratia marcenscens, Escherichia coli, Streptococcus group F, Anaerobic cocci, Prevotella disiens. He was started on Levaquin and Flagyl and has completed them. After speaking with Dr. Palmer, the Strep group F was covered by the Levaquin. Operative culture from 03/22/20 - Enterococcus faecalis and Streptococcus group F, Anaerobic cocci and Prevotella bivia. He was treated with Linezolid and Flagyl and has completed them. He was hospitalized on 05/19/20 and his Hgb was 5.6. He received PRBC. EGD was done on 05/26/20. According to the patient he has a gastric ulcer and is being treated medically. He is scheduled to have a colonoscopy as well. Pathology - hidradenitis. Prealbumin from 03/23/20 was 8.2. Encourage nutritional supplementation with protein to help the healing process. HgbA1c from 03/11/20 was 8.8. Ultrasound of his his left lower extremity ordered and done 04/15/2020. It showed there was no evidence of left lower extremity deep vein thrombosis. Valves are competent and compressible. He will wear Tubigrip for compression. Instructed him to keep legs elevated when sitting. Instructed him to avoid standing for long periods of time. He saw Dr. Kasey live had an angioplasty of some of his vessels in his legs last week. He states that his PCP ran some blood work and states he has Lupus. He has an appointment in March with a associate spa director. Progress of Wound: He now has a tunnel on the posterior portion near the perianal area, which is measuring smaller today. I believe it can now be backed. His ulcer is now a cluster. Objective Data Objective Data Vital Signs: Vital Signs Temp Pulse Resp BP 97.4 F L 76 16 196/71 H 03/13/21 08:32 03/13/21 08:32 03/13/21 08:32 03/13/21 08:32 Oxygen Delivery Method Room Air Weight: 161 lb Body Mass Index (BMI) 22.1 Charges/Coding Procedures Integumentary 111xxx-113xx: 31961 Ayla subq tissue 20 sq cm/< Add On Codes: 24098 Ayla subq tissue add-on (x3) Physical Exam Const alert and oriented x3 General Appearance: cooperative HEENT normocephalic Resp normal respiratory effort Cardio regular rate GI non-tender Palpation: soft Extremity normal capillary refill Extremity Narrative: bilateral +1 edema of lower legs Skin Wound Narrative: Left groin, perineum and perianal ulcer is now a cluster. The tunnel near the perianal ulcer is large enough to pack and is not as deep as it was previously was. Neuro CN's II-XII intact bilaterally Psych Appearance: grossly normal Debridement Note Debridement Note Wound debrided: groin/perineal/perianal ulcer cluster Laterality: Left Type of Debridement: Excisional debridement Anesthesia Used: 4% Lidocaine Solution and 5% Lidocaine Gel Depth: Down to and including healthy tissue and in the subcutaneous layer Percentage of wound debrided: 100 Instrument Used: 3mm curette Tissue Removed: Subcutaneous tissue and slough Severity: Fat Layer Exposed Amount of bleeding with debridement: Moderate Bleeding Controlled with: Pressure and Compression and gauze Patient tolerated procedure: Patient tolerated procedure well Post-Debridement Measurements and Additional Note: Post-Debridement Measurements/Treatment - Nurse 1 - General Ulcer Assessment Start: 02/13/21 08:48 Freq: Status: Active Protocol: ROC Activity Type Activity Date Activity User E-Sign Co-Sign Detail Recorded Client Recorded Date Recorded By Document 02/13/21 08:48 [facility] [id number] 02/13/21 08:53 [facility] Document 03/13/21 08:32 [facility] [id number] 03/13/21 08:42 [facility] 02/13/21 03/13/21 08:48 08:32 - Today's Visit Information Type of service Follow-up Visit Follow-up Visit (Physician/[facility] (Physician/[facility] ) ) Arrival Mode Ambulatory Ambulatory Transfer Assistance None None Patient Identification Verified (Name & Yes Yes ) Patient Requires Transmission-Based No Precautions Height and Weight Body Mass Index (BMI) 22.1 22.1 BMI Classification Normal Normal Vital Signs Temperature (97.8 F-99.1 F) 97.6 F L 97.4 F L Temperature Source Temporal Temporal Pulse Rate (60-100) 76 Pulse Location Monitor Monitor Respiratory Rate (12-18) 16 16 Respiratory rate source Observation Observation Oxygen Delivery Method Room Air Room Air Blood Pressure (90/60-120/80) 196/71 H Blood Pressure Mean (mm Hg) 112 Source Monitor Monitor Position Supine Supine Blood Pressure Location Right Arm Left Arm Comment counseled on bp . will update pcb designer/cm History Since Last Visit- (Skip if this is Patient's initial visit) Have you changed medications since your No No last visit? Any new allergies or adverse reactions No No Had a fall/change in ADL's that may No No increase risk of falls Signs or symptoms of abuse and/or No No neglect since last visit Have you been in the hospital since your No No last visit? Has dressing in place as prescribed Yes Yes Has compression in place as prescribed N/A N/A Has offloadiing in place as prescribed N/A N/A Experienced any changes in pain level or No No management Left Footwear Regular Shoe Regular Shoe Right Footwear Regular Shoe Regular Shoe Pain Scale: 0-10 Numeric Is Patient Pain Free? Yes Yes - Nurse 1 - General Ulcer Measurement Start: 02/13/21 08:48 Freq: Status: Active Protocol: Activity Type Activity Date Activity User E-Sign Co-Sign Detail Recorded Client Recorded Date Recorded By Document 02/13/21 08:48 [facility] [id number] 02/13/21 08:53 [facility] Document 03/13/21 08:32 [facility] [id number] 03/13/21 08:42 [facility] 02/13/21 03/13/21 08:48 08:32 Wound Center Nurse 1 #3 LEFT GROIN cluster -Combined with other wound No No -Current Size (cm) - Length 10.5 2.4 -Current Size (cm) - Width 7.8 6.5 -Current Size (cm) - Depth 0.1 0.1 -Total Square Cm 81.90 15.60 -Date of Last Picture (Recall this 03/13/21 field) -Photo Taken No Yes -Epithelialization Small 1-33% Small 1-33% -Tunneling No No -Undermining/Tunneling No No -Circular Undermining No No -Exudate Amt Large Large -Exudate Type Serosanguineous Serosanguineous -Wound Margin Distinct, Distinct, Outline Outline Attached Attached -Granulation Amt Large (67-100%) Large (67-100%) -Granulation Quality Red Red -Slough/Fibrin Yes -Necrosis Amt Small (1-33%) -Necrotic Tissue Type Adherent Slough -Texture ([place]-wound Skin Appearance) Assessed, Assessed, Scarring Scarring -Moisture ([place]-wound Skin Appearance) Assessed Assessed -Color ([place]-wound Skin Appearance) Assessed Assessed -Temperature ([place]-wound Skin No Abnormality No Abnormality Appearance) (Pt Warm) (Pt Warm) -Tenderness on Palpation ([place]-wound No No Skin Appearance) -Ulcer Cleansing Soap and Water Soap and Water -Foul Odor after Cleansing No No -Anesthetic Used 4% Lidocaine 4% Lidocaine Solution Solution WC - Nurse 2 - General Ulcer CM Notes Start: 02/13/21 08:48 Freq: Status: Active Protocol: Activity Type Activity Date Activity User E-Sign Co-Sign Detail Recorded Client Recorded Date Recorded By Document 02/13/21 09:09 [id number] 02/13/21 09:15 Document 03/13/21 08:59 [id number] 03/13/21 09:03 JF 02/13/21 03/13/21 09:09 08:59 Wound Center Nurse 2 #3 LEFT GROIN cluster -Time 09:10 08:59 -Correct Patient Yes Yes -Correct Side, Site, Position Yes Yes -Correct Procedure Yes Yes -Procedure Performed Yes Yes -Type of Procedure Debridement Debridement -Clinical Debridement Subcutaneous Subcutaneous -Tissue Removed Subcutaneous Subcutaneous -Post Debridement (cm) - Length 12.0 12.0 -Post Debridement (cm) - Width 8.0 6.2 -Post Debridement (cm) - Depth 4.0 2.5 -Total Square (Post) (cm) 96.00 74.40 -Area of Debridement (cm) - Length 12 12 -Area of Debridement (cm) - Width 8.0 6.2 -Total Square (Area) (cm) 96.0 74.4 -Tunneling No No -Undermining/Tunneling No No -Circular Undermining No No -Wound/Ulcer Outcome Not Healed Not Healed -Ulcer Cleansing Rinsed/ Rinsed/ Irrigated with Irrigated with Saline Saline -Foul Odor after Cleansing No No -Bioengineered Tissue No No -Bleeding Controlled with Pressure Pressure -Offloading No No -Treatment Response Procedure Procedure Tolerated Well Tolerated Well -Debridement - Subq, 1st 20sq cm Yes Yes -Debridement, SubQ, ea addt'l 20sq cm 4 3 or part thereof Pain Scale: 0-10 Numeric Is Patient Pain Free? Yes Yes - Nurse 3 - General Ulcer D/C NN Start: 02/13/21 08:48 Freq: Status: Active Protocol: Activity Type Activity Date Activity User E-Sign Co-Sign Detail Recorded Client Recorded Date Recorded By Document 02/13/21 09:23 [facility] [id number] 02/13/21 09:24 [facility] Document 03/13/21 09:18 [facility] [id number] 03/13/21 09:19 [facility] 02/13/21 03/13/21 09:23 09:18 Wound Care Nurse 3 #3 LEFT GROIN cluster -Ulcer Cleansing Rinsed/ Rinsed/ Irrigated with Irrigated with Saline Saline -Foul Odor after Cleansing No No -Primary Dressing Applied Aquacel AG 4x4 Aquacel AG 4x4 -Other Dressing drsg per [place] anesthesiology fellow -Primary Dressing Covered/Secured with Secured with Secured with Tape,Other Tape,Other -Other Covering abd abd -Aquacel AG 4x4 1 1 Treatment Response Procedure Procedure Tolerated Well Tolerated Well Pain Scale: 0-10 Numeric Is Patient Pain Free? 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: CODE(S): L97.122 - Non-pressure chronic ulcer of left thigh with fat layer exposed (3) Chronic ulcer of buttock: CODE(S): L98.419 - Non-pressure chronic ulcer of buttock with unspecified severity (4) Diabetes mellitus: CODE(S): E11.9 - Type 2 diabetes mellitus without complications QUALIFIERS: Diabetes mellitus type: type 2 Diabetes mellitus chcf insulin use: without chcf use Diabetes mellitus complication status: with circulatory complication Diabetes mellitus complication detail: with other circulatory complications Qualified Code(s): E11.59 - Type 2 diabetes mellitus with other circulatory complications (5) Tobacco dependence syndrome: CODE(S): F17.200 - Nicotine dependence, unspecified, uncomplicated (6) Hydradenitis: CODE(S): L73.2 - Hidradenitis suppurativa PLAN: Wound care - ULcer is now a cluster. Silver alginate covered with ABD daily. His tunnel on the left perianal area that is not as deep but is able to pack with silver. He saw Dr. Osorio who would like him to do daily Epsom salt bath soaks for 20 minutes daily. He is having issues with a hidradenitis flare on his right groin. He completed the Doxycycline. It is more stable. He completed Prednisone from his PCP due to right eye pain. Prealbumin 10.8 on 10/01/20. Encouraged increased protein intake to help with wound healing. Encouraged to stop smoking to help with wound healing. He states he has cut back to 1/2 pack per day. He saw Dr. Parks recently and he did a procedure with a balloon on his vessels. Dr. Parks is dealing with his edema. He has +1 edema of bilateral lower extremities. His PCP states he now has Lupus due to labwork, he will see a associate spa director in March. Follow up 2 weeks.
== END 2021-03-13 23:59 ==
LOC: WC 08:45
PROVIDERS: PCP Nurse Practitioner; Referring Provider Nurse Practitioner Family; Visit Provider Nurse Practitioner Family
DX: E11.622 Type 2 diabetes mellitus with other skin ulcer (principal); L73.2 Hidradenitis suppurativa; L97.122 Non-pressure chronic ulcer of left thigh with fat layer exposed; L98.492 Non-pressure chronic ulcer of skin of other sites with fat layer exposed; E11.59 Type 2 diabetes mellitus with other circulatory complications; R60.0 Localized edema; F17.200 Nicotine dependence, unspecified, uncomplicated
CPT/HCPCS: 11042; 11045

== ENCOUNTER 2021-03-22 10:08 | Outpatient (CLI) | payer OTHER, SELFPAY ==
[2021-03-22 11:26] LABS: EXAGEN MAILED SPECIMEN
[2021-03-22 12:24] LABS: Color, Urine Yellow (Yellow); Glucose, Dipstick 50 mg/dl (Normal); Ketone-Dipstick Negative (Negative); Leukocyte Esterase-Dipstick Negative /ul (Negative); Nitrite-Dipstick Negative (Negative); Occult Blood-Urine 25 /ul (Negative); Protein-Dipstick 500 mg/dl (Negative); Specific Gravity, Urine 1.015 (1.002-1.030); Urine Bilirubin Dipstick Negative (Negative); Urine Clarity Sl. Cloudy (Clear); Urine Urobilinogen Normal (Normal)
[2021-03-22 12:30] LABS: Erythrocyte Sedimentation Rate 63 mm/hr (0-20)
[2021-03-22 12:32] LABS: Absolute Lymphocyte Count 2.26 X10^3/uL (0.83-4.51); Absolute Neutrophil Count 9.4 X10^3/uL (2.0-7.7); Basophil# 0.08 X10^3/uL; Basophil% 0.6 % (0-1); Eosinophil# 0.16 X10^3/uL; Eosinophils% 1.3 % (0-5); Hematocrit 33.1 % (40-54); Hemoglobin 10.3 g/dL (13.0-16.5); Lymphocyte # 2.26 X10^3/ul (0.83-4.51); Mean Corp Hgb Conc 31.1 g/dL (32-36); Mean Corpuscular Hgb 26.8 pg (27.0-32.0); Mean Platelet Vol. 9.3 fl (6.2-12.0); Monocyte# 0.66 X10^3/uL; Monocyte% 5.2 % (0-10); NRBC Flagged by Analyzer 0 % (0-5); Neutrophil # 9.37 X10^3/uL (2.7-7.7); Neutrophil % 74.4 % (47-70); Platelet Count 460 K/mm3 (150-450); RBC Distribution Width CV 14.1 % (11.6-14.6); Red Blood Count 3.85 M/mm3 (4.6-6.2); White Blood Count 12.6 K/mm3 (4.4-11.0)
[2021-03-22 12:50] LABS: ALB/GLOB Ratio 0.3 RATIO (0.9-2.4); AST(SGOT) 8 U/L (15-37); Alanine Aminotransfer ALT/SGPT 11 U/L (16-61); Albumin, Serum 1.9 g/dL (3.2-5.0); Alkaline Phosphatase 145 U/L (45-117); Anion Gap 6 (5-15); BUN 5 mg/dL (7-18); BUN/Creat Ratio 4.7 RATIO (10-20); Calcium,Total 8.6 mg/dL (8.5-10.1); Chloride 104 mmol/L (98-107); Creatinine, Serum 1.06 mg/dL (0.70-1.30); EST Glomerular Filtration Rate 76 mL/min (>60); Est Glom Filt Rate - Afr Amer 92 mL/min (>60); Globulin 5.7 g/dL (2.2-4.2); Glucose 140 mg/dL (74-106); Potassium 3.6 mmol/L (3.5-5.1); Protein, Total 7.6 g/dL (6.4-8.2); Sodium Level 138 mmol/L (136-145)
[2021-03-22 12:51] LABS: Partial Thromboplast Time 46.5 Seconds (24.1-36.2); Prothrombin Time (Protime)PT. 12.8 SECONDS (11.7-14.9)
[2021-03-22 13:11] LABS: Protein, Urine (Random) 498.4 mg/dL (<11.9); Protein:Creat Ratio 6071 mg/g CRE (0-200)
[2021-03-22 13:21] LABS: Hepatitis B Surface Antibody Non-Reactive; Hepatitis B Surface Antigen Non-Reactive (Nonreactive); Hepatitis C Antibody Non-Reactive (Nonreactive)
[2021-03-24 14:34] LABS: Thrombin Time 15.8 sec (0.0-23.0)
[2021-03-24 16:09] LABS: Albumin 2.3 g/dL (2.9-4.4); Alpha-1-Globulins 0.4 g/dL (0.0-0.4); Alpha-2-Globulins 1.3 g/dL (0.4-1.0); Immunoglobulin G 1047 mg/dL (603-1613); Immunoglobulin M 137 mg/dL (20-172); PROEL- TOTAL PROTEIN 6.6 g/dL (6.0-8.5)
[2021-03-24 20:46] LABS: IMMUNOFIXATION RESULT,S Comment: (.); Immunoglobulin A 814 mg/dL (90-386)
[2021-03-26 15:07] LABS: Dilute Prothrombin Time (dPT) 40.3 sec (0.0-47.6); Dilute Russell Viper Venom 59.8 sec (0.0-47.0); Hexagonal Phase Phospholipid 3 sec (0-11); Hexagonal Phase Phospholipid 2 3 sec (0-11); PTT-LA Mix 55.1 sec (0.0-48.9); Thrombin Time 15.1 sec (0.0-23.0); dPT Confirm Ratio 1.22 Ratio (0.00-1.34)
[2021-03-27 08:10] LABS: Interpretation Comment: (.)
== END 2021-03-22 23:59 | disposition home or self-care (01) ==
LOC: MTLAB 10:10
PROVIDERS: PCP Nurse Practitioner; Referring Provider Internal Medicine Rheumatology; Visit Provider Internal Medicine Rheumatology
DX: M06.4 Inflammatory polyarthropathy (principal); J44.9 Chronic obstructive pulmonary disease, unspecified; I73.9 Peripheral vascular disease, unspecified; E11.9 Type 2 diabetes mellitus without complications; R76.8 Other specified abnormal immunological findings in serum; L73.2 Hidradenitis suppurativa; I25.10 Atherosclerotic heart disease of native coronary artery without angina pectoris; I10 Essential (primary) hypertension; E78.5 Hyperlipidemia, unspecified
CPT/HCPCS: 36415; 80053; 81002; 82570; 82784; 84156; 84165; 85025; 85598; 85610; 85652; 85670; 85730; 86140; 86334; 86706; 86803; 87340

== ENCOUNTER 2021-04-10 08:45 | Outpatient (RCR) | payer OTHER, SELFPAY ==
[2021-03-14 00:29] VITALS: BP 196/71; PULSE 76; RESP 16; TEMP 36.3; BMI 22.1
[2021-03-27 08:39] VITALS: BP 192/61; PULSE 83; RESP 16; TEMP 36.8; BMI 22.1
--- NOTE | 2021-03-27 11:02 | PN.PCM_ITS ---
History of Present Illness Date of Service: 03/27/21 Chief Complaint: Nonhealing hidradenitis ulcer left inguinal, perineal, and base of scrotum. History of Wound: Patient admitted to the hospital for increased redness and swelling of his left groin and buttocks on 09/27/20. Patient was started on IV Vancomycin, Levaquin and Flagyl by ID. Surgery 09/29/20 - 1. Surgical preparation left perianal area with excision hidradenitis abscess (144 cm2). 2. Surgical preparation left posterior thigh with incision and drainage and excisional debridement hidradenitis abscess (96 cm2). Operative cultures from 09/29/20 positive for Streptococcus constellatus, Corynebacterium striatum, Anaerobic cocci, and Prevotella species. Pathology of left perianal and left posterior thigh abscess showed pieces of skin with underlying tisse with acute and chronic inflammation, granulation tissue reaction and abscess formation. 10/01/20 - Laparoscopic sigmoid colostomy placed by Dr. Osorio due to the complicated perineal wound secondary to hidradenitis suppurativa status post excision. Transferred TCU on 10/03/20. On Doxycycline and Cefdinir while in TCU. Discharged home on 10/28/20. 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 2.4 and 1.2 cm fluid collections along the medial subcutaneous tissues of the right buttock suggestive of localized abscesses. He saw Dr. Osorio who placed his colostomy, and he said this is all related to his hidradenitis and that Dr. Smith is able to keep treating him. He does suggest doing daily Epsom sitz baths to help with the drainage of the hidradenitis abscesses. Wound care - Silver alginate covered with ABD daily. Pack silver into the tunnel on the perianal portion of the ulcer. Today he denies fever. His appetite has not been good. Encouraged protein supplementation. Surgery 03/22/20 - 1. Surgical preparation left inguinal area with excision hidradenitis (315 cm2 total wound). 2. Surgical preparation perineal area with excision hidradenitis (315 cm2 total wound). 3. Surgical preparation base left scrotum with incision and drainage and excision hidradenitis (315 cm2 total wound). Wound culture from 09/05/20 positive for Streptococcus constellatus, Kocuria Kristinae, Staphylococcus epidermidis, Anaerobic cocci, Bacteroides caccae, Prevotella bivia and Lactobacillus fermentum. He is being treated with Cefdinir and Flagyl. Wound culture from 07/05/20 showed Methicillin resistant Staphylococcus haemolyticus, Corynebacterium striatum, and Prevotella bivia. He has completed the Doxycycline and Flagyl. He went to the ED on 05/29 for fevers. They cultured his left groin ulcer and it showed Ecoli, Klebsiella pneumoniae, Serratia marcenscens, Streptococcus constellatus, Staphylococcus peudintermedia. He continued the Levaquin and Flagyl and has completed them. Wound culture 05/20/20- Serratia marcenscens, Escherichia coli, Streptococcus group F, Anaerobic cocci, Prevotella disiens. He was started on Levaquin and Flagyl and has completed them. After speaking with Dr. Palmer, the Strep group F was covered by the Levaquin. Operative culture from 03/22/20 - Enterococcus faecalis and Streptococcus group F, Anaerobic cocci and Prevotella bivia. He was treated with Linezolid and Flagyl and has completed them. He was hospitalized on 05/19/20 and his Hgb was 5.6. He received PRBC. EGD was done on 05/26/20. According to the patient he has a gastric ulcer and is being treated medically. He is scheduled to have a colonoscopy as well. Pathology - hidradenitis. Prealbumin from 03/23/20 was 8.2. Encourage nutritional supplementation with protein to help the healing process. HgbA1c from 03/11/20 was 8.8. Ultrasound of his his left lower extremity ordered and done 04/15/2020. It showed there was no evidence of left lower extremity deep vein thrombosis. Valves are competent and compressible. He will wear Tubigrip for compression. Instructed him to keep legs elevated when sitting. Instructed him to avoid standing for long periods of time. He saw Dr. Kasey live had an angioplasty of some of his vessels in his legs last week. He states that his PCP ran some blood work and states he has Lupus. He has an appointment in March with a heart nurse. Progress of Wound: Ulcer cluster is much improved. The left groin area is healed. There continues to be a tunnel in the left perianal area. Objective Data Objective Data Vital Signs: Vital Signs Temp Pulse Resp BP 98.3 F 83 16 192/61 H 03/27/21 08:39 03/27/21 08:39 03/27/21 08:39 03/27/21 08:39 Oxygen Delivery Method Room Air Weight: 161 lb Body Mass Index (BMI) 22.1 Charges/Coding Procedures Integumentary 111xxx-113xx: 10969 Ayla subq tissue 20 sq cm/< Add On Codes: 00356 Ayla subq tissue add-on (x2) Physical Exam Const alert and oriented x3 HEENT normocephalic Resp normal respiratory effort Cardio regular rate Extremity normal capillary refill Extremity Narrative: +1 to +2 edema bilateral lower extremities. Skin Wound Narrative: Ulcer cluster is much improved. The left groin area is healed. There continues to be a tunnel in the left perianal area. Neuro CN's II-XII intact bilaterally Psych Appearance: grossly normal Debridement Note Debridement Note Wound debrided: Buttock and perianal area ulcer cluster Laterality: Left Type of Debridement: Excisional debridement Anesthesia Used: 5% Lidocaine Gel Depth: Down to and including healthy tissue and in the subcutaneous layer Percentage of wound debrided: 100 Instrument Used: 5mm curette Tissue Removed: Subcutaneous tissue and slough Severity: Fat Layer Exposed Amount of bleeding with debridement: Mild Bleeding Controlled with: Pressure and Compression and gauze Patient tolerated procedure: Patient tolerated procedure well Post-Debridement Measurements and Additional Note: Post-Debridement Measurements/Treatment - Nurse 1 - General Ulcer Assessment Start: 03/27/21 08:39 Freq: Status: Active Protocol: ROC Activity Type Activity Date Activity User E-Sign Co-Sign Detail Recorded Client Recorded Date Recorded By Document 03/27/21 08:39 [facility] [id number] 03/27/21 08:48 [facility] 03/27/21 08:39 - Today's Visit Information Type of service Follow-up Visit (Physician/SUBSTATION OPERATOR CONVERSION ) Arrival Mode Ambulatory Transfer Assistance None Accompanied by Patient Identification Verified (Name & Yes ) Height and Weight Body Mass Index (BMI) 22.1 BMI Classification Normal Vital Signs Temperature (97.8 F-99.1 F) 98.3 F Temperature Source Temporal Pulse Rate (60-100) 83 Pulse Location Monitor Respiratory Rate (12-18) 16 Respiratory rate source Observation Oxygen Delivery Method Room Air Blood Pressure (90/60-120/80) 192/61 H Blood Pressure Mean (mm Hg) 104 Source Monitor Position Supine Blood Pressure Location Right Arm Comment counseled pt about bp History Since Last Visit- (Skip if this is Patient's initial visit) Have you changed medications since your No last visit? Any new allergies or adverse reactions No Had a fall/change in ADL's that may No increase risk of falls Signs or symptoms of abuse and/or No neglect since last visit Have you been in the hospital since your No last visit? Has dressing in place as prescribed Yes Has compression in place as prescribed N/A Has offloadiing in place as prescribed N/A Experienced any changes in pain level or No management Left Footwear Regular Shoe Right Footwear Regular Shoe Pain Scale: 0-10 Numeric Is Patient Pain Free? Yes WC - Nurse 1 - General Ulcer Measurement Start: 03/27/21 08:39 Freq: Status: Active Protocol: Activity Type Activity Date Activity User E-Sign Co-Sign Detail Recorded Client Recorded Date Recorded By Document 03/27/21 08:39 [facility] [id number] 03/27/21 08:48 [facility] 03/27/21 08:39 Wound Center Nurse 1 #3 LEFT GROIN cluster -Combined with other wound No -Current Size (cm) - Length 16 -Current Size (cm) - Width 6 -Current Size (cm) - Depth 3 -Total Square Cm 96 -Date of Last Picture (Recall this 03/27/21 field) -Photo Taken Yes -Epithelialization Small 1-33% -Tunneling No -Undermining/Tunneling No -Circular Undermining No -Exudate Amt Large -Exudate Type Serosanguineous -Wound Margin Distinct, Outline Attached -Granulation Amt Large (67-100%) -Granulation Quality [place] -Slough/Fibrin Yes -Necrosis Amt Small (1-33%) -Necrotic Tissue Type Adherent Slough -Texture ([place]ola-wound Skin Appearance) Assessed, Scarring -Moisture ([place]-wound Skin Appearance) Assessed -Color ([place]-wound Skin Appearance) Assessed -Temperature ([place]-wound Skin No Abnormality Appearance) (Pt Warm) -Tenderness on Palpation ([place]-wound No Skin Appearance) -Ulcer Cleansing Soap and Water -Foul Odor after Cleansing No -Anesthetic Used 4% Lidocaine Solution - Nurse 2 - General Ulcer CM Notes Start: 03/27/21 08:39 Freq: Status: Active Protocol: Activity Type Activity Date Activity User E-Sign Co-Sign Detail Recorded Client Recorded Date Recorded By Document 03/27/21 09:07 [id number] 03/27/21 09:17 03/27/21 09:07 Wound Center Nurse 2 -Time 09:07 -Correct Patient Yes -Correct Side, Site, Position Yes -Correct Procedure Yes -Procedure Performed Yes -Type of Procedure Debridement -Clinical Debridement Subcutaneous -Tissue Removed Subcutaneous -Post Debridement (cm) - Length 6.5 -Post Debridement (cm) - Width 6.3 -Post Debridement (cm) - Depth 3.0 -Total Square (Post) (cm) 40.95 -Area of Debridement (cm) - Length 6.5 -Area of Debridement (cm) - Width 6.3 -Total Square (Area) (cm) 40.95 -Tunneling No -Undermining/Tunneling No -Circular Undermining No -Wound/Ulcer Outcome Not Healed -Ulcer Cleansing Rinsed/ Irrigated with Saline -Foul Odor after Cleansing No -Bioengineered Tissue No -Bleeding Controlled with Pressure -Offloading No -Treatment Response Procedure Tolerated Well -Debridement - Subq, 1st 20sq cm Yes -Debridement, SubQ, ea addt'l 20sq cm 2 or part thereof Pain Scale: 0-10 Numeric Is Patient Pain Free? Yes - Nurse 3 - General Ulcer D/C NN Start: 03/27/21 08:39 Freq: Status: Active Protocol: Activity Type Activity Date Activity User E-Sign Co-Sign Detail Recorded Client Recorded Date Recorded By Document 03/27/21 09:26 [facility] [id number] 03/27/21 09:26 [facility] 03/27/21 09:26 Wound Care Nurse 3 #3 LEFT GROIN cluster -Ulcer Cleansing Rinsed/ Irrigated with Saline -Foul Odor after Cleansing No -Primary Dressing Applied Aquacel AG 4x4 -Primary Dressing Covered/Secured with Other -Other Covering abd -Aquacel AG 4x4 1 Treatment Response Procedure Tolerated Well Pain Scale: 0-10 Numeric Is Patient Pain Free? 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: CODE(S): L97.122 - Non-pressure chronic ulcer of left thigh with fat layer exposed (3) Chronic ulcer of buttock: CODE(S): L98.419 - Non-pressure chronic ulcer of buttock with unspecified severity (4) Edema of both legs: CODE(S): R60.0 - Localized edema (5) Diabetes mellitus: CODE(S): E11.9 - Type 2 diabetes mellitus without complications QUALIFIERS: Diabetes mellitus type: type 2 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 Silver alginate covered with ABD daily. His tunnel on the left perianal area that is not as deep but is able to pack with silver. He saw Dr. Osorio who would like him to do daily Epsom salt bath soaks for 20 minutes daily. He is having issues with a hidradenitis flare on his right groin. He completed the Doxycycline. It is more stable. He completed Prednisone from his PCP due to right eye pain. Prealbumin 10.8 on 10/01/20. Encouraged increased protein intake to help with wound healing. Encouraged to stop smoking to help with wound healing. He states he has cut back to 1/2 pack per day. He saw Dr. Parks recently and he did a procedure with a balloon on his vessels. Dr. Parks is dealing with his edema. He has +1 - +2 edema of bilateral lower extremities. His PCP states he now has Lupus due to labwork, he will see a heart nurse in March. He is interested in having his right buttock abscess surgically debrided as previously discussed with Dr. Smith. Now that his left side is almost healed he want to discuss the right side. Dr. Smith will be notified of this. Follow up 2 weeks.
[2021-04-10 08:35] VITALS: BP 195/79; PULSE 84; RESP 18; TEMP 36.9; BMI 22.1
--- NOTE | 2021-04-10 13:45 | PCM.WC.PN ---
History of Present Illness Date of Service: 04/10/21 Chief Complaint: Nonhealing hidradenitis ulcer left inguinal, perineal, and base of scrotum. History of Wound: Patient admitted to the hospital for increased redness and swelling of his left groin and buttocks on 09/27/20. Patient was started on IV Vancomycin, Levaquin and Flagyl by ID. Surgery 09/29/20 - 1. Surgical preparation left perianal area with excision hidradenitis abscess (144 cm2). 2. Surgical preparation left posterior thigh with incision and drainage and excisional debridement hidradenitis abscess (96 cm2). Operative cultures from 09/29/20 positive for Streptococcus constellatus, Corynebacterium striatum, Anaerobic cocci, and Prevotella species. Pathology of left perianal and left posterior thigh abscess showed pieces of skin with underlying tisse with acute and chronic inflammation, granulation tissue reaction and abscess formation. 10/01/20 - Laparoscopic sigmoid colostomy placed by Dr. Osorio due to the complicated perineal wound secondary to hidradenitis suppurativa status post excision. Transferred TCU on 10/03/20. On Doxycycline and Cefdinir while in TCU. Discharged home on 10/28/20. 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 2.4 and 1.2 cm fluid collections along the medial subcutaneous tissues of the right buttock suggestive of localized abscesses. He saw Dr. Osorio who placed his colostomy, and he said this is all related to his hidradenitis and that Dr. Smith is able to keep treating him. He does suggest doing daily Epsom sitz baths to help with the drainage of the hidradenitis abscesses. Wound care - Silver alginate covered with ABD daily. Pack iodiform gauze into the tunnel on the perianal portion of the ulcer. He continues to have drainage from the right buttock and right groin. Today he denies fever. His appetite has not been good. Encouraged protein supplementation. Surgery 03/22/20 - 1. Surgical preparation left inguinal area with excision hidradenitis (315 cm2 total wound). 2. Surgical preparation perineal area with excision hidradenitis (315 cm2 total wound). 3. Surgical preparation base left scrotum with incision and drainage and excision hidradenitis (315 cm2 total wound). Wound culture from 09/05/20 positive for Streptococcus constellatus, Kocuria Kristinae, Staphylococcus epidermidis, Anaerobic cocci, Bacteroides caccae, Prevotella bivia and Lactobacillus fermentum. He is being treated with Cefdinir and Flagyl. Wound culture from 07/05/20 showed Methicillin resistant Staphylococcus haemolyticus, Corynebacterium striatum, and Prevotella bivia. He has completed the Doxycycline and Flagyl. He went to the ED on 05/29 for fevers. They cultured his left groin ulcer and it showed Ecoli, Klebsiella pneumoniae, Serratia marcenscens, Streptococcus constellatus, Staphylococcus peudintermedia. He continued the Levaquin and Flagyl and has completed them. Wound culture 05/20/20- Serratia marcenscens, Escherichia coli, Streptococcus group F, Anaerobic cocci, Prevotella disiens. He was started on Levaquin and Flagyl and has completed them. After speaking with Dr. Palmer, the Strep group F was covered by the Levaquin. Operative culture from 03/22/20 - Enterococcus faecalis and Streptococcus group F, Anaerobic cocci and Prevotella bivia. He was treated with Linezolid and Flagyl and has completed them. He was hospitalized on 05/19/20 and his Hgb was 5.6. He received PRBC. EGD was done on 05/26/20. According to the patient he has a gastric ulcer and is being treated medically. He is scheduled to have a colonoscopy as well. Pathology - hidradenitis. Prealbumin from 03/23/20 was 8.2. Encourage nutritional supplementation with protein to help the healing process. HgbA1c from 03/11/20 was 8.8. Ultrasound of his his left lower extremity ordered and done 04/15/2020. It showed there was no evidence of left lower extremity deep vein thrombosis. Valves are competent and compressible. He will wear Tubigrip for compression. Instructed him to keep legs elevated when sitting. Instructed him to avoid standing for long periods of time. He saw Dr. Kasey live had an angioplasty of some of his vessels in his legs last week. He states that his PCP ran some blood work and states he has Lupus. He has an appointment in March with a silver wrapper. Progress of Wound: Ulcer cluster is much improved. The left groin area is healed. There continues to be a tunnel in the left perianal area. He continues to have drainage from his right buttocks and right inguinal hidradenitis areas. Objective Data Objective Data Vital Signs: Vital Signs Temp Pulse Resp BP 98.5 F 84 18 195/79 H 04/10/21 08:35 04/10/21 08:35 04/10/21 08:35 04/10/21 08:35 Oxygen Delivery Method Room Air Weight: 161 lb Body Mass Index (BMI) 22.1 Charges/Coding Procedures Integumentary 111xxx-113xx: 94273 Ayla subq tissue 20 sq cm/< Add On Codes: 15351 Ayla subq tissue add-on (x2) Physical Exam Const alert and oriented x3 General Appearance: cooperative HEENT normocephalic Head and Scalp: atraumatic Resp normal respiratory effort Cardio regular rate GI non-tender Palpation: soft Extremity normal capillary refill Skin Wound Narrative: Left groin/buttock/abimbola anal ulcer cluster is improving. He continues to have a tunnel near the abimbola anal opening. The ulcer is pink and improving in size. Right buttocks and inguinal areas continue to have thick, white drainage and are inflamed. Neuro CN's II-XII intact bilaterally Psych Appearance: grossly normal Debridement Note Debridement Note Wound debrided: Perianal/inguinal ulcer cluster Laterality: Left Type of Debridement: Excisional debridement Anesthesia Used: 5% Lidocaine Gel Depth: Down to and including healthy tissue and in the subcutaneous layer Percentage of wound debrided: 100 Instrument Used: 5mm curette Tissue Removed: Subcutaneous tissue and slough Severity: Fat Layer Exposed Amount of bleeding with debridement: Mild Bleeding Controlled with: Compression and gauze Patient tolerated procedure: Patient tolerated procedure well Post-Debridement Measurements and Additional Note: Post-Debridement Measurements/Treatment BEKA - Nurse 1 - General Ulcer Assessment Start: 03/27/21 08:39 Freq: Status: Active Protocol: ROC Activity Type Activity Date Activity User E-Sign Co-Sign Detail Recorded Client Recorded Date Recorded By Document 03/27/21 08:39 [facility] [id number] 03/27/21 08:48 [facility] Document 04/10/21 08:35 DL [id number] 04/10/21 08:39 DL 03/27/21 04/10/21 08:39 08:35 - Today's Visit Information Type of service Follow-up Visit Follow-up Visit (Physician/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 (Physician/LAMINATING 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 ) ) Arrival Mode Ambulatory Ambulatory Transfer Assistance None None Accompanied by Patient Identification Verified (Name & Yes Yes ) Patient Requires Transmission-Based No Precautions Height and Weight Body Mass Index (BMI) 22.1 22.1 BMI Classification Normal Normal Vital Signs Temperature (97.8 F-99.1 F) 98.3 F 98.5 F Temperature Source Temporal Temporal Pulse Rate (60-100) 83 84 Pulse Location Monitor Monitor Respiratory Rate (12-18) 16 18 Respiratory rate source Observation Observation Oxygen Delivery Method Room Air Blood Pressure (90/60-120/80) 192/61 H 195/79 H Blood Pressure Mean (mm Hg) 104 117 Source Monitor Monitor Position Supine Blood Pressure Location Right Arm Comment counseled pt about bp History Since Last Visit- (Skip if this is Patient's initial visit) Have you changed medications since your No last visit? Any new allergies or adverse reactions No Had a fall/change in ADL's that may No increase risk of falls Signs or symptoms of abuse and/or No neglect since last visit Have you been in the hospital since your No last visit? Has dressing in place as prescribed Yes Has compression in place as prescribed N/A Has offloadiing in place as prescribed N/A Experienced any changes in pain level or No management Left Footwear Regular Shoe Right Footwear Regular Shoe Pain Scale: 0-10 Numeric Is Patient Pain Free? Yes Yes - Nurse 1 - General Ulcer Measurement Start: 03/27/21 08:39 Freq: Status: Active Protocol: Activity Type Activity Date Activity User E-Sign Co-Sign Detail Recorded Client Recorded Date Recorded By Document 03/27/21 08:39 [facility] [id number] 03/27/21 08:48 [facility] Document 04/10/21 08:35 DL [id number] 04/10/21 08:39 DL 03/27/21 04/10/21 08:39 08:35 Wound Center Nurse 1 #3 LEFT GROIN cluster -Combined with other wound No -Current Size (cm) - Length 16 2.8 -Current Size (cm) - Width 6 4.5 -Current Size (cm) - Depth 3 0.1 -Total Square Cm 96 12.60 -Date of Last Picture (Recall this 03/27/21 field) -Photo Taken Yes No -Epithelialization Small 1-33% -Tunneling No -Undermining/Tunneling No -Circular Undermining No -Exudate Amt Large Medium -Exudate Type Serosanguineous Serosanguineous -Wound Margin Distinct, Distinct, Outline Outline Attached Attached -Granulation Amt Large (67-100%) Large (67-100%) -Granulation Quality [place] -Slough/Fibrin Yes -Necrosis Amt Small (1-33%) None Present (0 %) -Necrotic Tissue Type Adherent Slough -Structure Exposed N/A -Texture (Abimbola-wound Skin Appearance) Assessed, Scarring Scarring -Moisture (Abimbola-wound Skin Appearance) Assessed No Abnormality -Color (Abimbola-wound Skin Appearance) Assessed No Abnormality -Temperature (Abimbola-wound Skin No Abnormality No Abnormality Appearance) (Pt Warm) (Pt Warm) -Tenderness on Palpation (Abimbola-wound No No Skin Appearance) -Ulcer Cleansing Soap and Water Soap and Water -Foul Odor after Cleansing No No -Anesthetic Used 4% Lidocaine 4% Lidocaine Solution Solution WC - Nurse 2 - General Ulcer CM Notes Start: 03/27/21 08:39 Freq: Status: Active Protocol: Activity Type Activity Date Activity User E-Sign Co-Sign Detail Recorded Client Recorded Date Recorded By Document 03/27/21 09:07 [id number] 03/27/21 09:17 Document 04/10/21 09:05 [id number] 04/10/21 09:09 03/27/21 04/10/21 09:07 09:05 Wound Center Nurse 2 #3 LEFT GROIN cluster -Time 09:07 09:05 -Correct Patient Yes Yes -Correct Side, Site, Position Yes Yes -Correct Procedure Yes Yes -Procedure Performed Yes Yes -Type of Procedure Debridement Debridement -Clinical Debridement Subcutaneous Subcutaneous -Tissue Removed Subcutaneous Subcutaneous -Post Debridement (cm) - Length 6.5 9.0 -Post Debridement (cm) - Width 6.3 5.6 -Post Debridement (cm) - Depth 3.0 2.6 -Total Square (Post) (cm) 40.95 50.40 -Area of Debridement (cm) - Length 6.5 9.0 -Area of Debridement (cm) - Width 6.3 5.6 -Total Square (Area) (cm) 40.95 50.40 -Tunneling No No -Undermining/Tunneling No No -Circular Undermining No No -Wound/Ulcer Outcome Not Healed Not Healed -Ulcer Cleansing Rinsed/ Rinsed/ Irrigated with Irrigated with Saline Saline -Foul Odor after Cleansing No No -Bioengineered Tissue No No -Bleeding Controlled with Pressure Pressure -Offloading No No -Treatment Response Procedure Procedure Tolerated Well Tolerated Well -Debridement - Subq, 1st 20sq cm Yes Yes -Debridement, SubQ, ea addt'l 20sq cm 2 2 or part thereof Pain Scale: 0-10 Numeric Is Patient Pain Free? Yes Yes - Nurse 3 - General Ulcer D/C NN Start: 03/27/21 08:39 Freq: Status: Active Protocol: Activity Type Activity Date Activity User E-Sign Co-Sign Detail Recorded Client Recorded Date Recorded By Document 03/27/21 09:26 [facility] [id number] 03/27/21 09:26 [facility] Document 04/10/21 09:22 [id number] 04/10/21 09:23 DL 03/27/21 04/10/21 09:26 09:22 Wound Care Nurse 3 #3 LEFT GROIN cluster -Ulcer Cleansing Rinsed/ Soap and Water Irrigated with Saline -Foul Odor after Cleansing No No -Primary Dressing Applied Aquacel AG 4x4 Aquacel AG 4x4, Nugauze, Iodoform -Primary Dressing Covered/Secured with Other Dry Gauze, Secured with Tape -Other Covering abd -Aquacel AG 4x4 1 1 -Nugauze, Iodoform /4 1 Treatment Response Procedure Procedure Tolerated Well Tolerated Well Pain Scale: 0-10 Numeric Is Patient Pain Free? Yes Yes - Visit Discharge Discharge Condition Stable Stable Ambulatory Status Ambulatory Ambulatory Transportation Private Auto Private Auto Accompanied by Facility Type Alf Care Facility Orders Sent Yes Assessment/Plan Assessment/Plan (1) Ulcer of perineum with fat layer exposed: CODE(S): L98.492 - Non-pressure chronic ulcer of skin of other sites with fat layer exposed (2) Chronic ulcer of left thigh with fat layer exposed: CODE(S): L97.122 - Non-pressure chronic ulcer of left thigh with fat layer exposed (3) Chronic ulcer of buttock: CODE(S): L98.419 - Non-pressure chronic ulcer of buttock with unspecified severity (4) Diabetes mellitus: CODE(S): E11.9 - Type 2 diabetes mellitus without complications QUALIFIERS: Diabetes mellitus type: type 2 Diabetes mellitus security incident response engineer insulin use: without security incident response engineer use Diabetes mellitus complication status: with circulatory complication Diabetes mellitus complication detail: with other circulatory complications Qualified Code(s): E11.59 - Type 2 diabetes mellitus with other circulatory complications (5) Ulcer of left groin with fat layer exposed: CODE(S): L98.492 - Non-pressure chronic ulcer of skin of other sites with fat layer exposed (6) Hydradenitis: CODE(S): L73.2 - Hidradenitis suppurativa (7) Tobacco dependence syndrome: CODE(S): F17.200 - Nicotine dependence, unspecified, uncomplicated (8) Lupus (systemic lupus erythematosus): CODE(S): M32.9 - Systemic lupus erythematosus, unspecified PLAN: Wound care - ULcer is now a cluster. Silver alginate covered with ABD daily. His tunnel on the left perianal area will pack iodoform gauze into the tunnel daily. He saw Dr. Osorio who would like him to do daily Epsom salt bath soaks for 20 minutes daily. He is having issues with a hidradenitis flare on his right groin. He completed the Doxycycline. It is more stable. He completed Prednisone from his PCP due to right eye pain. Prealbumin 10.8 on 10/01/20. Encouraged increased protein intake to help with wound healing. Encouraged to stop smoking to help with wound healing. He states he has cut back to 1/2 pack per day. He saw Dr. Parks recently and he did a procedure with a balloon on his vessels. Dr. Parks is dealing with his edema. He has +1 - +2 edema of bilateral lower extremities. His PCP states he now has Lupus due to labwork, he will see a silver wrapper in March. He is interested in having his right buttock abscess surgically debrided as previously discussed with Dr. Smith. Now that his left side is almost healed he want to discuss the right side. Dr. Smith will be notified of this. Follow up 2 weeks.
== END 2021-04-10 23:59 ==
LOC: WC 08:45
PROVIDERS: PCP Nurse Practitioner; Referring Provider Nurse Practitioner Family; Visit Provider Nurse Practitioner Family
DX: E11.622 Type 2 diabetes mellitus with other skin ulcer (principal); L98.492 Non-pressure chronic ulcer of skin of other sites with fat layer exposed; L97.122 Non-pressure chronic ulcer of left thigh with fat layer exposed; M32.9 Systemic lupus erythematosus, unspecified; E11.59 Type 2 diabetes mellitus with other circulatory complications; L73.2 Hidradenitis suppurativa; F17.200 Nicotine dependence, unspecified, uncomplicated; R60.0 Localized edema
CPT/HCPCS: 11042; 11045

== ENCOUNTER 2021-04-24 08:45 | Outpatient (RCR) | payer OTHER, SELFPAY ==
[2021-04-11 00:27] VITALS: BP 195/79; PULSE 84; RESP 18; TEMP 36.9; BMI 22.1
[2021-04-24 08:41] VITALS: BP 174/74; PULSE 90; TEMP 36.3; BMI 22.1
--- NOTE | 2021-04-24 09:28 | PN.PCM_ITS ---
History of Present Illness Date of Service: 04/24/21 Chief Complaint: Nonhealing hidradenitis ulcer left inguinal, perineal, and base of scrotum. History of Wound: Patient admitted to the hospital for increased redness and swelling of his left groin and buttocks on 09/27/20. Patient was started on IV Vancomycin, Levaquin and Flagyl by ID. Surgery 09/29/20 - 1. Surgical preparation left perianal area with excision hidradenitis abscess (144 cm2). 2. Surgical preparation left posterior thigh with incision and drainage and excisional debridement hidradenitis abscess (96 cm2). Operative cultures from 09/29/20 positive for Streptococcus constellatus, Corynebacterium striatum, Anaerobic cocci, and Prevotella species. Pathology of left perianal and left posterior thigh abscess showed pieces of skin with underlying tisse with acute and chronic inflammation, granulation tissue reaction and abscess formation. 10/01/20 - Laparoscopic sigmoid colostomy placed by Dr. Osorio due to the complicated perineal wound secondary to hidradenitis suppurativa status post excision. Transferred TCU on 10/03/20. On Doxycycline and Cefdinir while in TCU. Discharged home on 10/28/20. 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 2.4 and 1.2 cm fluid collections along the medial subcutaneous tissues of the right buttock suggestive of localized abscesses. He saw Dr. Osorio who placed his colostomy, and he said this is all related to his hidradenitis and that Dr. Smith is able to keep treating him. He does suggest doing daily Epsom sitz baths to help with the drainage of the hidradenitis abscesses. Wound care - Will rinse the ulcer cluster with Dakin's 0.25%, then apply Silver alginate covered with ABD daily. Pack silver or iodoform gauze into the tunnel on the perianal portion of the ulcer. Today he denies fever. His appetite has not been good. Encouraged protein supplementation. Surgery 03/22/20 - 1. Surgical preparation left inguinal area with excision hidradenitis (315 cm2 total wound). 2. Surgical preparation perineal area with excision hidradenitis (315 cm2 total wound). 3. Surgical preparation base left scrotum with incision and drainage and excision hidradenitis (315 cm2 total wound). Wound culture from 09/05/20 positive for Streptococcus constellatus, Kocuria Kristinae, Staphylococcus epidermidis, Anaerobic cocci, Bacteroides caccae, Prevotella bivia and Lactobacillus fermentum. He is being treated with Cefdinir and Flagyl. Wound culture from 07/05/20 showed Methicillin resistant Staphylococcus haemolyticus, Corynebacterium striatum, and Prevotella bivia. He has completed the Doxycycline and Flagyl. He went to the ED on 05/29 for fevers. They cultured his left groin ulcer and it showed Ecoli, Klebsiella pneumoniae, Serratia marcenscens, Streptococcus constellatus, Staphylococcus peudintermedia. He continued the Levaquin and Flagyl and has completed them. Wound culture 05/20/20- Serratia marcenscens, Escherichia coli, Streptococcus group F, Anaerobic cocci, Prevotella disiens. He was started on Levaquin and Flagyl and has completed them. After speaking with Dr. Palmer, the Strep group F was covered by the Levaquin. Operative culture from 03/22/20 - Enterococcus faecalis and Streptococcus group F, Anaerobic cocci and Prevotella bivia. He was treated with Linezolid and Flagyl and has completed them. He was hospitalized on 05/19/20 and his Hgb was 5.6. He received PRBC. EGD was done on 05/26/20. According to the patient he has a gastric ulcer and is being treated medically. He is scheduled to have a colonoscopy as well. Pathology - hidradenitis. Prealbumin from 03/23/20 was 8.2. Encourage nutritional supplementation with protein to help the healing process. HgbA1c from 03/11/20 was 8.8. Ultrasound of his his left lower extremity ordered and done 04/15/2020. It showed there was no evidence of left lower extremity deep vein thrombosis. Valves are competent and compressible. He will wear Tubigrip for compression. Instructed him to keep legs elevated when sitting. Instructed him to avoid standing for long periods of time. He saw Dr. Parks an had an angioplasty of some of his vessels in his legs last week. He states that his PCP ran some blood work and states he has Lupus. He has an appointment in March with a bilingual medical assistant. Progress of Wound: Left groin/perianal cluster ulcers are stable, there is an area that reopened above his anus. He still has a tunnel in the perianal area. Left perianal hidradenitis is draining thick, white drainage. Is stable, not angry red, will continue to monitor. Objective Data Objective Data Vital Signs: Vital Signs Temp Pulse Resp BP 97.3 F L 90 18 174/74 H 04/24/21 08:41 04/24/21 08:41 04/11/21 00:27 04/24/21 08:41 Weight: 161 lb Body Mass Index (BMI) 22.1 Charges/Coding Procedures Integumentary [id number]: [id number] Ayla subq tissue 20 sq cm/< Add On Codes: 54303 Ayla subq tissue add-on (x3) Physical Exam Const alert and oriented x3 General Appearance: cooperative HEENT normocephalic Resp normal respiratory effort Cardio regular rate GI non-tender Palpation: soft Extremity normal capillary refill Skin Wound Narrative: Left groin/perianal cluster ulcers are stable, there is an area that reopened above his anus. He still has a tunnel in the perianal area. Left perianal hidradenitis is draining thick, white drainage. Is stable, not angry red, will continue to monitor. Neuro CN's II-XII intact bilaterally Psych Appearance: grossly normal Debridement Note Debridement Note Wound debrided: groin/perianal ulcer cluster Laterality: Left Type of Debridement: Excisional debridement Anesthesia Used: 4% Lidocaine Solution Depth: Down to and including healthy tissue and in the subcutaneous layer Percentage of wound debrided: 100 Instrument Used: 5mm curette Tissue Removed: Subcutaneous tissue and slough Severity: Fat Layer Exposed Amount of bleeding with debridement: Mild Bleeding Controlled with: Pressure and Compression and gauze Patient tolerated procedure: Patient tolerated procedure well Post-Debridement Measurements and Additional Note: Post-Debridement Measurements/Treatment BEKA - Nurse 1 - General Ulcer Assessment Start: 04/24/21 08:40 Freq: Status: Active Protocol: ROC Activity Type Activity Date Activity User E-Sign Co-Sign Detail Recorded Client Recorded Date Recorded By Document 04/24/21 08:41 BLUE [id number] 04/24/21 08:46 BLUE 04/24/21 08:41 WC - Today's Visit Information Type of service Follow-up Visit (Physician/PURCHASING DEPARTMENT CLERK ) Arrival Mode Ambulatory Patient Identification Verified (Name & Yes ) Finger Stick Blood Sugar(mg/dl) (if 219 indicated): Blood Sugar Stated by Patient Height and Weight Body Mass Index (BMI) 22.1 BMI Classification Normal Vital Signs Temperature (97.8 F-99.1 F) 97.3 F L Temperature Source Temporal Pulse Rate (60-100) 90 Pulse Location Monitor Blood Pressure (90/60-120/80) 174/74 H Blood Pressure Mean (mm Hg) 107 Source Monitor Position Sitting Blood Pressure Location Left Arm History Since Last Visit- (Skip if this is Patient's initial visit) Have you changed medications since your No last visit? Any new allergies or adverse reactions No Had a fall/change in ADL's that may No increase risk of falls Signs or symptoms of abuse and/or No neglect since last visit Have you been in the hospital since your No last visit? Has dressing in place as prescribed Yes Has compression in place as prescribed N/A Has offloadiing in place as prescribed N/A Experienced any changes in pain level or No management Left Footwear Regular Shoe Right Footwear Regular Shoe Pain Scale: 0-10 Numeric Is Patient Pain Free? Yes - Nurse 1 - General Ulcer Measurement Start: 04/24/21 08:40 Freq: Status: Active Protocol: Activity Type Activity Date Activity User E-Sign Co-Sign Detail Recorded Client Recorded Date Recorded By Document 04/24/21 08:41 BLUE [id number] 04/24/21 08:46 BLUE 04/24/21 08:41 Wound Center Nurse 1 #3 LEFT GROIN cluster -Current Size (cm) - Length 8.9 -Current Size (cm) - Width 4.7 -Current Size (cm) - Depth 2.7 -Total Square Cm 41.83 -Exudate Amt Small -Exudate Type Serosanguineous -Wound Margin Distinct, Outline Attached -Granulation Amt Medium (34-66%) -Granulation Quality Red -Necrosis Amt Small (1-33%) -Necrotic Tissue Type Adherent Slough -Texture ([place]imbola-wound Skin Appearance) Assessed, Scarring -Moisture ([place]imbola-wound Skin Appearance) No Abnormality, Assessed -Color ([place]imbola-wound Skin Appearance) No Abnormality, Assessed -Temperature ([place]imbola-wound Skin No Abnormality Appearance) (Pt Warm) -Tenderness on Palpation ([place]imbola-wound No Skin Appearance) -Ulcer Cleansing Rinsed/ Irrigated with Saline -Foul Odor after Cleansing No -Anesthetic Used 4% Lidocaine Solution WC - Nurse 2 - General Ulcer CM Notes Start: 04/24/21 08:40 Freq: Status: Active Protocol: Activity Type Activity Date Activity User E-Sign Co-Sign Detail Recorded Client Recorded Date Recorded By Document 04/24/21 09:24 PL [id number] 04/24/21 09:26 PL 04/24/21 09:24 Wound Center Nurse 2 -Time 08:58 -Correct Patient Yes -Correct Side, Site, Position Yes -Correct Procedure Yes -Procedure Performed Yes -Type of Procedure Debridement -Clinical Debridement Subcutaneous -Tissue Removed Subcutaneous -Post Debridement (cm) - Length 10.5 -Post Debridement (cm) - Width 6.5 -Post Debridement (cm) - Depth 3.5 -Total Square (Post) (cm) 68.25 -Area of Debridement (cm) - Length 10.5 -Area of Debridement (cm) - Width 6.5 -Total Square (Area) (cm) 68.25 -Tunneling No -Undermining/Tunneling No -Circular Undermining No -Wound/Ulcer Outcome Not Healed -Ulcer Cleansing Rinsed/ Irrigated with Saline -Foul Odor after Cleansing No -Bioengineered Tissue No -Bleeding Controlled with Pressure -Treatment Response Procedure Tolerated Well -Debridement - Subq, 1st 20sq cm Yes -Debridement, SubQ, ea addt'l 20sq cm 3 or part thereof Pain Scale: 0-10 Numeric Is Patient Pain Free? 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: CODE(S): L97.122 - Non-pressure chronic ulcer of left thigh with fat layer exposed (5) Diabetes mellitus: CODE(S): E11.9 - Type 2 diabetes mellitus without complications QUALIFIERS: Diabetes mellitus complication detail: with other circulatory complications Diabetes mellitus complication status: with circulatory complication Diabetes mellitus mcfp insulin use: without marine oil terminal superintendent use Diabetes mellitus type: type 2 Qualified Code(s): E11.59 - Type 2 diabetes mellitus with other circulatory complications (6) Tobacco dependence syndrome: CODE(S): F17.200 - Nicotine dependence, unspecified, uncomplicated (7) Malnutrition: CODE(S): E46 - Unspecified protein-calorie malnutrition QUALIFIERS: Malnutrition type: protein-calorie malnutrition Protein-calorie malnutrition severity: moderate Qualified Code(s): E44.0 - Moderate protein-calorie malnutrition PLAN: Wound care - ULcer is now a cluster. Rinse ulcer with Dakin's 0.25%, then apply Silver alginate covered with ABD daily. His tunnel on the left perianal area will pack iodoform gauze or silver into the tunnel daily. He saw Dr. Osorio who would like him to do daily Epsom salt bath soaks for 20 minutes daily. He is having issues with a hidradenitis flare on his right groin. He completed the Doxycycline. It is more stable. He completed Prednisone from his PCP due to right eye pain. Prealbumin 10.8 on 10/01/20. Encouraged increased protein intake to help with wound healing. Encouraged to stop smoking to help with wound healing. He states he has cut back to 1/2 pack per day. He saw Dr. Parks recently and he did a procedure with a balloon on his vessels. Dr. Parks is dealing with his edema. He has +1 - +2 edema of bilateral lower extremities. His PCP states he now has Lupus due to labwork, he will see a bilingual medical assistant in March. He is interested in having his right buttock abscess surgically debrided as pr eviously discussed with Dr. Smith. Now that his left side is almost healed he want to discuss the right side. Dr. Smith will be notified of this. Follow up 3 weeks.
== END 2021-05-11 23:59 | disposition home or self-care (01) ==
LOC: WC 08:45
PROVIDERS: PCP Nurse Practitioner; Referring Provider Nurse Practitioner Family; Visit Provider Nurse Practitioner Family
DX: E11.622 Type 2 diabetes mellitus with other skin ulcer (principal); L98.492 Non-pressure chronic ulcer of skin of other sites with fat layer exposed; L97.122 Non-pressure chronic ulcer of left thigh with fat layer exposed; E44.0 Moderate protein-calorie malnutrition; E11.59 Type 2 diabetes mellitus with other circulatory complications; L73.2 Hidradenitis suppurativa; F17.200 Nicotine dependence, unspecified, uncomplicated
CPT/HCPCS: 11042; 11045

== ENCOUNTER 2021-06-05 08:30 | Outpatient (RCR) | payer OTHER, SELFPAY ==
[2021-05-12 00:29] VITALS: BP 174/74; PULSE 90; RESP 18; TEMP 36.3; BMI 22.1
[2021-05-15 08:28] VITALS: BP 181/81; PULSE 100; TEMP 36.3; BMI 22.1
--- NOTE | 2021-05-15 12:08 | PN.PCM_ITS ---
History of Present Illness Date of Service: 05/15/21 Chief Complaint: Nonhealing hidradenitis ulcer left inguinal, perineal, and base of scrotum. History of Wound: Patient admitted to the hospital for increased redness and swelling of his left groin and buttocks on 09/27/20. Patient was started on IV Vancomycin, Levaquin and Flagyl by ID. Surgery 09/29/20 - 1. Surgical preparation left perianal area with excision hidradenitis abscess (144 cm2). 2. Surgical preparation left posterior thigh with incision and drainage and excisional debridement hidradenitis abscess (96 cm2). Operative cultures from 09/29/20 positive for Streptococcus constellatus, Corynebacterium striatum, Anaerobic cocci, and Prevotella species. Pathology of left perianal and left posterior thigh abscess showed pieces of skin with underlying tisse with acute and chronic inflammation, granulation tissue reaction and abscess formation. 10/01/20 - Laparoscopic sigmoid colostomy placed by Dr. Osorio due to the complicated perineal wound secondary to hidradenitis suppurativa status post excision. Transferred TCU on 10/03/20. On Doxycycline and Cefdinir while in TCU. Discharged home on 10/28/20. 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 2.4 and 1.2 cm fluid collections along the medial subcutaneous tissues of the right buttock suggestive of localized abscesses. He saw Dr. Osorio who placed his colostomy, and he said this is all related to his hidradenitis and that Dr. Smith is able to keep treating him. He does suggest doing daily Epsom sitz baths to help with the drainage of the hidradenitis abscesses. Wound care - Will rinse the ulcer cluster with Dakin's 0.25%. Apply Jacqueline to the left ischial portion of the ulcer. Apply Silver alginate to the tunnel and the perianal portion of the ulcer. Cover with gauze. Change dressing daily and as needed. Today he denies fever. His appetite has not been good. Encouraged protein supplementation. Surgery 03/22/20 - 1. Surgical preparation left inguinal area with excision hidradenitis (315 cm2 total wound). 2. Surgical preparation perineal area with excision hidradenitis (315 cm2 total wound). 3. Surgical preparation base left scrotum with incision and drainage and excision hidradenitis (315 cm2 total wound). Wound culture from 09/05/20 positive for Streptococcus constellatus, Kocuria Kristinae, Staphylococcus epidermidis, Anaerobic cocci, Bacteroides caccae, Prevotella bivia and Lactobacillus fermentum. He is being treated with Cefdinir and Flagyl. Wound culture from 07/05/20 showed Methicillin resistant Staphylococcus haemolyticus, Corynebacterium striatum, and Prevotella bivia. He has completed the Doxycycline and Flagyl. He went to the ED on 05/29 for fevers. They cultured his left groin ulcer and it showed Ecoli, Klebsiella pneumoniae, Serratia marcenscens, Streptococcus constellatus, Staphylococcus peudintermedia. He continued the Levaquin and Flagyl and has completed them. Wound culture 05/20/20- Serratia marcenscens, Escherichia coli, Streptococcus group F, Anaerobic cocci, Prevotella disiens. He was started on Levaquin and Flagyl and has completed them. After speaking with Dr. Palmer, the Strep group F was covered by the Levaquin. Operative culture from 03/22/20 - Enterococcus faecalis and Streptococcus group F, Anaerobic cocci and Prevotella bivia. He was treated with Linezolid and Flagyl and has completed them. He was hospitalized on 05/19/20 and his Hgb was 5.6. He received PRBC. EGD was done on 05/26/20. According to the patient he has a gastric ulcer and is being treated medically. He is scheduled to have a colonoscopy as well. Pathology - hidradenitis. Prealbumin from 03/23/20 was 8.2. Encourage nutritional supplementation with protein to help the healing process. HgbA1c from 03/11/20 was 8.8. Ultrasound of his his left lower extremity ordered and done 04/15/2020. It showed there was no evidence of left lower extremity deep vein thrombosis. Valves are competent and compressible. He will wear Tubigrip for compression. Instructed him to keep legs elevated when sitting. Instructed him to avoid standing for long periods of time. He saw Dr. Parks an had an angioplasty of some of his vessels in his legs last week. He states that his PCP ran some blood work and states he has Lupus. He has an appointment in March with a construction skills teacher. Progress of Wound: Left ischial part of ulcer is getting too dry, will change his dressing to Jacqueline. There continues to be a tunnel on the left perianal portion of the ulcer, it is difficult to pack. There is still an ulcer near the perianal portion of the ulcer. His right perianal hidradenitis is stable this week with only a small amount of white drainage. Objective Data Objective Data Vital Signs: Vital Signs Temp Pulse Resp BP 97.3 F L 100 18 181/81 H 05/15/21 08:28 05/15/21 08:28 05/12/21 00:29 05/15/21 08:28 Weight: 161 lb Body Mass Index (BMI) 22.1 Charges/Coding Procedures Integumentary [id number]: [id number] Global Visit Physical Exam Const alert and oriented x3 General Appearance: cooperative HEENT normocephalic Resp normal respiratory effort Cardio regular rate GI non-tender Palpation: soft Extremity normal capillary refill Extremity Narrative: +1 dependent edema bilateral lower legs Skin Wound Narrative: Left ischial/perianal cluster ulcer with a tunnel near the perianal area. Neuro CN's II-XII intact bilaterally Psych Appearance: grossly normal Debridement Note Debridement Note Wound debrided: ischial/perianal ulcer cluster Laterality: Left Type of Debridement: Excisional debridement Anesthesia Used: 5% Lidocaine Gel Depth: Down to and including healthy tissue and in the subcutaneous layer Percentage of wound debrided: 100 Instrument Used: 3mm curette and 5mm curette Tissue Removed: Nonviable tissue and slough Severity: Fat Layer Exposed Amount of bleeding with debridement: Mild Bleeding Controlled with: Pressure and Compression and gauze Patient tolerated procedure: Patient tolerated procedure well Debridement Free Text: Needed a size 3 curette to debride the tunnel area, a 5 was used on the other areas. Post-Debridement Measurements and Additional Note: Post-Debridement Measurements/Treatment [facility] - Nurse 1 - General Ulcer Assessment Start: 05/15/21 08:28 Freq: Status: Active Protocol: ROC Activity Type Activity Date Activity User E-Sign Co-Sign Detail Recorded Client Recorded Date Recorded By Document 05/15/21 08:28 BLUE [id number] 05/15/21 08:33 BLUE 05/15/21 08:28 WC - Today's Visit Information Type of service Follow-up Visit (Physician/MAKE UP WORKER ) Arrival Mode Ambulatory Patient Identification Verified (Name & Yes ) Height and Weight Body Mass Index (BMI) 22.1 BMI Classification Normal Vital Signs Temperature (97.8 F-99.1 F) 97.3 F L Temperature Source Temporal Pulse Rate (60-100) 100 Pulse Location Monitor Blood Pressure (90/60-120/80) 181/81 H Blood Pressure Mean (mm Hg) 114 Source Monitor Position Semi-Fowlers Blood Pressure Location Left Arm History Since Last Visit- (Skip if this is Patient's initial visit) Have you changed medications since your No last visit? Any new allergies or adverse reactions No Had a fall/change in ADL's that may No increase risk of falls Signs or symptoms of abuse and/or No neglect since last visit Have you been in the hospital since your No last visit? Has dressing in place as prescribed Yes Has compression in place as prescribed N/A Has offloadiing in place as prescribed N/A Experienced any changes in pain level or No management Left Footwear Regular Shoe Right Footwear Regular Shoe Pain Scale: 0-10 Numeric Is Patient Pain Free? Yes - Nurse 1 - General Ulcer Measurement Start: 05/15/21 08:28 Freq: Status: Active Protocol: Activity Type Activity Date Activity User E-Sign Co-Sign Detail Recorded Client Recorded Date Recorded By Document 05/15/21 08:28 BLUE [id number] 05/15/21 08:33 BLUE 05/15/21 08:28 Wound Center Nurse 1 #3 LEFT GROIN cluster -Current Size (cm) - Length 13.3 -Current Size (cm) - Width 5.3 -Current Size (cm) - Depth 0.1 -Total Square Cm 70.49 -Exudate Amt Medium -Exudate Type Serosanguineous -Wound Margin Distinct, Outline Attached -Granulation Amt Large (67-100%) -Granulation Quality Red -Necrosis Amt None Present (0 %) -Texture ([place]imbola-wound Skin Appearance) Assessed, Localized Edema -Moisture ([place]ola-wound Skin Appearance) No Abnormality, Assessed -Color ([place]imbola-wound Skin Appearance) No Abnormality, Assessed -Temperature ([place]imbola-wound Skin No Abnormality Appearance) (Pt Warm) -Tenderness on Palpation ([place]imbola-wound No Skin Appearance) -Ulcer Cleansing Rinsed/ Irrigated with Saline -Foul Odor after Cleansing No -Anesthetic Used 4% Lidocaine Solution [facility] - Nurse 2 - General Ulcer CM Notes Start: 05/15/21 08:28 Freq: Status: Active Protocol: Activity Type Activity Date Activity User E-Sign Co-Sign Detail Recorded Client Recorded Date Recorded By Document 05/15/21 09:01 LIZETTE [id number] 05/15/21 09:04 LIZETTE 05/15/21 09:01 Wound Center Nurse 2 -Time 09:01 -Correct Patient Yes -Correct Side, Site, Position Yes -Correct Procedure Yes -Procedure Performed Yes -Type of Procedure Debridement -Clinical Debridement Subcutaneous -Tissue Removed Subcutaneous -Post Debridement (cm) - Length 7.5 -Post Debridement (cm) - Width 5.0 -Post Debridement (cm) - Depth 3.0 -Total Square (Post) (cm) 37.50 -Area of Debridement (cm) - Length 7.5 -Area of Debridement (cm) - Width 5.0 -Total Square (Area) (cm) 37.50 -Tunneling No -Undermining/Tunneling No -Circular Undermining No -Wound/Ulcer Outcome Not Healed -Ulcer Cleansing Rinsed/ Irrigated with Saline -Foul Odor after Cleansing No -Bioengineered Tissue No -Bleeding Controlled with Pressure -Treatment Response Procedure Tolerated Well -Offloading No -Debridement - Subq, 1st 20sq cm Yes -Debridement, SubQ, ea addt'l 20sq cm 1 or part thereof Pain Scale: 0-10 Numeric Is Patient Pain Free? Yes [facility] - Nurse 3 - General Ulcer D/C NN Start: 05/15/21 08:28 Freq: Status: Active Protocol: Activity Type Activity Date Activity User E-Sign Co-Sign Detail Recorded Client Recorded Date Recorded By Document 05/15/21 09:13 BLUE [id number] 05/15/21 09:13 BLUE 05/15/21 09:13 Wound Care Nurse 3 #3 LEFT GROIN cluster -Primary Dressing Applied Aquacel AG 4x4, Promogran Jacqueline Matter -Other Dressing ABD -Primary Dressing Covered/Secured with Dry Gauze, Secured with Tape -Aquacel AG 4x4 1 -Promogran Jacqueline Matter 1 Pain Scale: 0-10 Numeric Is Patient Pain Free? Yes WC - Visit Discharge Discharge Condition Stable Ambulatory Status Ambulatory Transportation Private Auto Accompanied by Assessment/Plan Assessment/Plan (1) Ulcer of perineum with fat layer exposed: CODE(S): L98.492 - Non-pressure chronic ulcer of skin of other sites with fat layer exposed (2) Chronic ulcer of buttock: CODE(S): L98.419 - Non-pressure chronic ulcer of buttock with unspecified severity (3) Diabetes mellitus: CODE(S): E11.9 - Type 2 diabetes mellitus without complications QUALIFIERS: Diabetes mellitus type: type 2 Diabetes mellitus penitentiary insulin use: without long chain quiller tender use Diabetes mellitus complication status: with circulatory complication Diabetes mellitus complication detail: with other circulatory complications Qualified Code(s): E11.59 - Type 2 diabetes mellitus with other circulatory complications (4) Tobacco dependence syndrome: CODE(S): F17.200 - Nicotine dependence, unspecified, uncomplicated (5) Hydradenitis: CODE(S): L73.2 - Hidradenitis suppurativa (6) Edema of both legs: CODE(S): R60.0 - Localized edema PLAN: Ulcer is now a cluster, the anterior groin portion is healed. Ulcer cluster on the posterior portion of buttocks/ischial/perianal area. There is a tunnel near the perianal opening. Wound care - Will rinse the ulcer cluster with Dakin's 0.25%. Apply Jacqueline to the left ischial portion of the ulcer. Apply Silver alginate to the tunnel and the perianal portion of the ulcer. Cover with gauze. Change dressing daily and as needed. Continue Sitz baths daily to help with the other areas of hidradenitis. Prealbumin 10.8 on 10/01/20. Encouraged increased protein intake to help with wound healing. Encouraged to stop smoking to help with wound healing. He states he has cut back to 1/2 pack per day. He saw Dr. Parks who did a procedure with a balloon on his vessels. Dr. Parks is dealing with his edema. He has +1 edema of bilateral lower extremities. His PCP states he now has Lupus due to labwork, he saw a construction skills teacher in March who says he does not have lupus. He is interested in having his right buttock abscess surgically debrided as previously discussed with Dr. Smith. Now that his left side is almost healed he want to discuss the right side. Follow up 2 weeks.
[2021-06-05 08:42] VITALS: BP 136/68; PULSE 95; TEMP 36.3; BMI 22.1
--- NOTE | 2021-06-05 10:50 | PN.PCM_ITS ---
History of Present Illness Date of Service: 06/05/21 Chief Complaint: Nonhealing hidradenitis ulcer left inguinal, perineal, and base of scrotum. History of Wound: Patient admitted to the hospital for increased redness and swelling of his left groin and buttocks on 09/27/20. Patient was started on IV Vancomycin, Levaquin and Flagyl by ID. Surgery 09/29/20 - 1. Surgical preparation left perianal area with excision hidradenitis abscess (144 cm2). 2. Surgical preparation left posterior thigh with incision and drainage and excisional debridement hidradenitis abscess (96 cm2). Operative cultures from 09/29/20 positive for Streptococcus constellatus, Corynebacterium striatum, Anaerobic cocci, and Prevotella species. Pathology of left perianal and left posterior thigh abscess showed pieces of skin with underlying tisse with acute and chronic inflammation, granulation tissue reaction and abscess formation. 10/01/20 - Laparoscopic sigmoid colostomy placed by Dr. Osorio due to the complicated perineal wound secondary to hidradenitis suppurativa status post excision. Transferred TCU on 10/03/20. On Doxycycline and Cefdinir while in TCU. Discharged home on 10/28/20. 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 2.4 and 1.2 cm fluid collections along the medial subcutaneous tissues of the right buttock suggestive of localized abscesses. He saw Dr. Osorio who placed his colostomy, and he said this is all related to his hidradenitis and that Dr. Smith is able to keep treating him. He does suggest doing daily Epsom sitz baths to help with the drainage of the hidradenitis abscesses. Wound care - Will rinse the ulcer cluster with Dakin's 0.25%. Apply Jacqueline to the left ischial portion ulcer. Apply Silver alginate to the tunnel and the perianal ulcer. Cover with gauze. Change dressing daily and as needed. Today he denies fever. His appetite has not been good. Encouraged protein supplementation. Surgery 03/22/20 - 1. Surgical preparation left inguinal area with excision hidradenitis (315 cm2 total wound). 2. Surgical preparation perineal area with excision hidradenitis (315 cm2 total wound). 3. Surgical preparation base left scrotum with incision and drainage and excision hidradenitis (315 cm2 total wound). Wound culture from 09/05/20 positive for Streptococcus constellatus, Kocuria Kristinae, Staphylococcus epidermidis, Anaerobic cocci, Bacteroides caccae, Prevotella bivia and Lactobacillus fermentum. He is being treated with Cefdinir and Flagyl. Wound culture from 07/05/20 showed Methicillin resistant Staphylococcus haemolyticus, Corynebacterium striatum, and Prevotella bivia. He has completed the Doxycycline and Flagyl. He went to the ED on 05/29 for fevers. They cultured his left groin ulcer and it showed Ecoli, Klebsiella pneumoniae, Serratia marcenscens, Streptococcus constellatus, Staphylococcus peudintermedia. He continued the Levaquin and Flagyl and has completed them. Wound culture 05/20/20- Serratia marcenscens, Escherichia coli, Streptococcus group F, Anaerobic cocci, Prevotella disiens. He was started on Levaquin and Flagyl and has completed them. After speaking with Dr. Palmer, the Strep group F was covered by the Levaquin. Operative culture from 03/22/20 - Enterococcus faecalis and Streptococcus group F, Anaerobic cocci and Prevotella bivia. He was treated with Linezolid and Flagyl and has completed them. He was hospitalized on 05/19/20 and his Hgb was 5.6. He received PRBC. EGD was done on 05/26/20. According to the patient he has a gastric ulcer and is being treated medically. He is scheduled to have a colonoscopy as well. Pathology - hidradenitis. Prealbumin from 03/23/20 was 8.2. Encourage nutritional supplementation with protein to help the healing process. HgbA1c from 03/11/20 was 8.8. Ultrasound of his his left lower extremity ordered and done 04/15/2020. It showed there was no evidence of left lower extremity deep vein thrombosis. Valves are competent and compressible. He will wear Tubigrip for compression. Instructed him to keep legs elevated when sitting. Instructed him to avoid standing for long periods of time. He saw Dr. Parks an had an angioplasty of some of his vessels in his legs last week. He states that his PCP ran some blood work and states he has Lupus. He has an appointment in March with a watch hairspring assembler. Progress of Wound: Left ischial ulcer is pink and smaller in appearance. There continues to be a tunnel on the left perianal portion of the ulcer, it is difficult to pack. There is still an ulcer near the perianal portion of the ulcer. His right perianal hidradenitis is stable this week. Objective Data Objective Data Vital Signs: Vital Signs Temp Pulse Resp BP 97.3 F L 95 18 136/68 H 06/05/21 08:42 06/05/21 08:42 05/12/21 00:29 06/05/21 08:42 Weight: 161 lb Body Mass Index (BMI) 22.1 Charges/Coding Procedures Integumentary 111xxx-113xx: [id number] Ayla subq tissue 20 sq cm/< Physical Exam Const alert and oriented x3 General Appearance: cooperative HEENT normocephalic Head and Scalp: atraumatic Resp normal respiratory effort Cardio regular rate Extremity normal capillary refill Skin Wound Narrative: The large ulcer has healed into two individual ulcers. Left ischial ulcer is beefy pink. The abimbola anal ulcer has a tunnel that is still present. His hidradenitis is stable. Neuro CN's II-XII intact bilaterally Psych Appearance: grossly normal Debridement Note Debridement Note Wound debrided: Ischial ulcer Laterality: Left Type of Debridement: Excisional debridement Depth: Down to and including healthy tissue and in the subcutaneous layer Percentage of wound debrided: 100 Instrument Used: 5mm curette Tissue Removed: Nonviable tissue and slough Severity: Fat Layer Exposed Amount of bleeding with debridement: Mild Bleeding Controlled with: Pressure and Compression and gauze Patient tolerated procedure: Patient tolerated procedure well Post-Debridement Measurements and Additional Note: Post-Debridement Lashawn surements/Treatment BEKA - Nurse 1 - General Ulcer Assessment Start: 05/15/21 08:28 Freq: Status: Active Protocol: ROC Activity Type Activity Date Activity User E-Sign Co-Sign Detail Recorded Client Recorded Date Recorded By Document 05/15/21 08:28 BLUE [id number] 05/15/21 08:33 KR Document 06/05/21 08:42 BLUE [id number] 06/05/21 08:43 BLUE 05/15/21 06/05/21 08:28 08:42 - Today's Visit Information Type of service Follow-up Visit Follow-up Visit (Physician/RESIDENTIAL FEE APPRAISER (Physician/RESIDENTIAL FEE APPRAISER ) ) Arrival Mode Ambulatory Ambulatory Accompanied by Patient Identification Verified (Name & Yes Yes ) Height and Weight Body Mass Index (BMI) 22.1 22.1 BMI Classification Normal Normal Vital Signs Temperature (97.8 F-99.1 F) 97.3 F L 97.3 F L Temperature Source Temporal Temporal Pulse Rate (60-100) 100 95 Pulse Location Monitor Monitor Blood Pressure (90/60-120/80) 181/81 H 136/68 H Blood Pressure Mean (mm Hg) 114 90 Source Monitor Monitor Position Semi-Fowlers Sitting Blood Pressure Location Left Arm Left Arm History Since Last Visit- (Skip if this is Patient's initial visit) Have you changed medications since your No No last visit? Any new allergies or adverse reactions No No Had a fall/change in ADL's that may No No increase risk of falls Signs or symptoms of abuse and/or No No neglect since last visit Have you been in the hospital since your No No last visit? Has dressing in place as prescribed Yes Yes Has compression in place as prescribed N/A N/A Has offloadiing in place as prescribed N/A N/A Experienced any changes in pain level or No No management Left Footwear Regular Shoe Regular Shoe Right Footwear Regular Shoe Regular Shoe Pain Scale: 0-10 Numeric Is Patient Pain Free? Yes Yes - Nurse 1 - General Ulcer Measurement Start: 05/15/21 08:28 Freq: Status: Active Protocol: Activity Type Activity Date Activity User E-Sign Co-Sign Detail Recorded Client Recorded Date Recorded By Document 05/15/21 08:28 BLUE [id number] 05/15/21 08:33 KR Document 06/05/21 08:42 BLUE [id number] 06/05/21 08:43 BLUE 05/15/21 06/05/21 08:28 08:42 Wound Center Nurse 1 #3 Perianal ulcer -Current Size (cm) - Length 13.3 6.5 -Current Size (cm) - Width 5.3 1.5 -Current Size (cm) - Depth 0.1 0.2 -Total Square Cm 70.49 9.75 -Exudate Amt Medium Small -Exudate Type Serosanguineous Serosanguineous -Wound Margin Distinct, Distinct, Outline Outline Attached Attached -Granulation Amt Large (67-100%) Medium (34-66%) -Granulation Quality [place] -Necrosis Amt None Present (0 Small (1-33%) %) -Necrotic Tissue Type Adherent Slough -Texture (Abimbola-wound Skin Appearance) Assessed, Assessed, Localized Edema Scarring -Moisture (Abimbola-wound Skin Appearance) No Abnormality, No Abnormality, Assessed Assessed -Color (Abimbola-wound Skin Appearance) No Abnormality, No Abnormality, Assessed Assessed -Temperature (Abimbola-wound Skin No Abnormality No Abnormality Appearance) (Pt Warm) (Pt Warm) -Tenderness on Palpation (Abimbola-wound No No Skin Appearance) -Ulcer Cleansing Rinsed/ Rinsed/ Irrigated with Irrigated with Saline Saline -Foul Odor after Cleansing No No -Anesthetic Used 4% Lidocaine 4% Lidocaine Solution Solution,5% Lidocaine Gel WC - Nurse 2 - General Ulcer CM Notes Start: 05/15/21 08:28 Freq: Status: Active Protocol: Activity Type Activity Date Activity User E-Sign Co-Sign Detail Recorded Client Recorded Date Recorded By Document 05/15/21 09:01 [id number] 05/15/21 09:04 Document 06/05/21 09:03 [id number] 06/05/21 09:10 05/15/21 06/05/21 09:01 09:03 Wound Center Nurse 2 4-left ischium ulcer -Correct Patient Yes -Correct Side, Site, Position Yes -Correct Procedure Yes -Procedure Performed Yes -Type of Procedure Debridement -Clinical Debridement Subcutaneous -Tissue Removed Subcutaneous -Post Debridement (cm) - Length 1.7 -Post Debridement (cm) - Width 3.5 -Post Debridement (cm) - Depth 0.1 -Total Square (Post) (cm) 5.95 -Area of Debridement (cm) - Length 1.7 -Area of Debridement (cm) - Width 3.5 -Total Square (Area) (cm) 5.95 -Tunneling No -Undermining/Tunneling No -Circular Undermining No -Wound/Ulcer Outcome Not Healed -Ulcer Cleansing Rinsed/ Irrigated with Saline -Foul Odor after Cleansing No -Bioengineered Tissue No -Bleeding Controlled with Pressure -Treatment Response Procedure Tolerated Well -Offloading No -Debridement - Subq, 1st 20sq cm No #3 Perianal ulcer -Time 09:01 09:03 -Correct Patient Yes Yes -Correct Side, Site, Position Yes Yes -Correct Procedure Yes Yes -Procedure Performed Yes Yes -Type of Procedure Debridement Debridement -Clinical Debridement Subcutaneous Subcutaneous -Tissue Removed Subcutaneous Subcutaneous -Post Debridement (cm) - Length 7.5 1.5 -Post Debridement (cm) - Width 5.0 0.5 -Post Debridement (cm) - Depth 3.0 2.8 -Total Square (Post) (cm) 37.50 0.75 -Area of Debridement (cm) - Length 7.5 1.5 -Area of Debridement (cm) - Width 5.0 0.5 -Total Square (Area) (cm) 37.50 0.75 -Tunneling No No -Undermining/Tunneling No No -Circular Undermining No No -Wound/Ulcer Outcome Not Healed Not Healed -Ulcer Cleansing Rinsed/ Rinsed/ Irrigated with Irrigated with Saline Saline -Foul Odor after Cleansing No No -Bioengineered Tissue No No -Bleeding Controlled with Pressure Pressure -Treatment Response Procedure Procedure Tolerated Well Tolerated Well -Offloading No No -Debridement - Subq, 1st 20sq cm Yes Yes -Debridement, SubQ, ea addt'l 20sq cm 1 or part thereof Pain Scale: 0-10 Numeric Is Patient Pain Free? Yes Yes - Nurse 3 - General Ulcer D/C NN Start: 05/15/21 08:28 Freq: Status: Active Protocol: Activity Type Activity Date Activity User E-Sign Co-Sign Detail Recorded Client Recorded Date Recorded By Document 05/15/21 09:13 BLUE [id number] 05/15/21 09:13 BLUE 05/15/21 09:13 Wound Care Nurse 3 #3 Perianal ulcer -Primary Dressing Applied Aquacel AG 4x4, Promogran Jacqueline Matter -Other Dressing ABD -Primary Dressing Covered/Secured with Dry Gauze, Secured with Tape -Aquacel AG 4x4 1 -Promogran Jacqueline Matter 1 Pain Scale: 0-10 Numeric Is Patient Pain Free? Yes - Visit Discharge Discharge Condition Stable Ambulatory Status Ambulatory Transportation Private Auto Accompanied by Additional Wound Wound debrided: Perianal ulcer Laterality: Left Type of Debridement: Excisional debridement Anesthesia Used: 5% Lidocaine Gel Depth: Down to and including healthy tissue and in the subcutaneous layer Percentage of wound debrided: 100 Instrument Used: 5mm curette Tissue Removed: Nonviable tissue and slough Severity: Fat Layer Exposed Amount of bleeding with debridement: Mild Bleeding Controlled with: Pressure and Compression and gauze Patient tolerated procedure: Patient tolerated procedure well Assessment/Plan Assessment/Plan (1) Chronic ulcer of buttock: CODE(S): L98.419 - Non-pressure chronic ulcer of buttock with unspecified severity (2) Hydradenitis: CODE(S): L73.2 - Hidradenitis suppurativa (3) Diabetes mellitus type 2, uncontrolled, with complications: CODE(S): E11.8 - Type 2 diabetes mellitus with unspecified complications; E11.65 - Type 2 diabetes mellitus with hyperglycemia (4) 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 The left ischial/posterior thigh and the left perianal ulcer with a tunnel. The anterior groin portion is healed. Wound care - Will rinse the ulcer cluster with Dakin's 0.25%. Apply Jacqueline to the left ischial portion of the ulcer. Apply Silver alginate to the tunnel and the perianal portion of the ulcer. Cover with gauze. Change dressing daily and as needed. Continue Sitz baths daily to help with the other areas of hidradenitis. Prealbumin 10.8 on 10/01/20. HgA1c on 05/26/21 10.6. Changed his medications to Trijardy xr. Encouraged increased protein intake to help with wound healing. Encouraged to stop smoking to help with wound healing. He states he has cut back to 1/2 pack per day. He saw Dr. Parks who did a procedure with a balloon on his vessels. Dr. Parks is dealing with his edema. He has +1 edema of bilateral lower extremities. Due to he Lupus and uncontrolle DM, it may cause a delay in his wound healing. Follow up 3 weeks.
== END 2021-06-10 23:59 | disposition home or self-care (01) ==
LOC: WC 08:30
PROVIDERS: PCP Nurse Practitioner; Referring Provider Nurse Practitioner Family; Visit Provider Nurse Practitioner Family
DX: E11.622 Type 2 diabetes mellitus with other skin ulcer (principal); L98.492 Non-pressure chronic ulcer of skin of other sites with fat layer exposed; M32.9 Systemic lupus erythematosus, unspecified; E11.59 Type 2 diabetes mellitus with other circulatory complications; R60.0 Localized edema; L73.2 Hidradenitis suppurativa; F17.200 Nicotine dependence, unspecified, uncomplicated; L02.416 Cutaneous abscess of left lower limb
CPT/HCPCS: 11042; 11045

== ENCOUNTER 2021-07-03 08:45 | Outpatient (RCR) | payer OTHER, SELFPAY ==
[2021-06-11 00:28] VITALS: BP 136/68; PULSE 95; RESP 18; TEMP 36.3; BMI 22.1
[2021-07-03 08:42] VITALS: BP 190/55; PULSE 86; RESP 16; TEMP 36.4; BMI 22.1
--- NOTE | 2021-07-03 09:24 | PCM.WC.PN ---
History of Present Illness Date of Service: 07/03/21 Chief Complaint: Nonhealing hidradenitis ulcer left inguinal, perineal, and base of scrotum. History of Wound: Surgery 03/22/20 - 1. Surgical preparation left inguinal area with excision hidradenitis (315 cm2 total wound). 2. Surgical preparation perineal area with excision hidradenitis (315 cm2 total wound). 3. Surgical preparation base left scrotum with incision and drainage and excision hidradenitis (315 cm2 total wound). Operative culture from 03/22/20 - Enterococcus faecalis and Streptococcus group F, Anaerobic cocci and Prevotella bivia. He was treated with Linezolid and Flagyl and has completed them. Ultrasound of his his left lower extremity ordered and done 04/15/2020. It showed there was no evidence of left lower extremity deep vein thrombosis. Valves are competent and compressible. He will wear Tubigrip for compression. Instructed him to keep legs elevated when sitting. Instructed him to avoid standing for long periods of time. He saw Dr. Kasey live had an angioplasty of some of his vessels in his legs last week. He states that his PCP ran some blood work and states he has Lupus. He went to the ED on 05/29/20 for fevers. They cultured his left groin ulcer and it showed Ecoli, Klebsiella pneumoniae, Serratia marcenscens, Streptococcus constellatus, Staphylococcus peudintermedia. He continued the Levaquin and Flagyl and has completed them. Patient admitted to the hospital for increased redness and swelling of his left groin and buttocks on 09/27/20. Patient was started on IV Vancomycin, Levaquin and Flagyl by ID. Surgery 09/29/20 - 1. Surgical preparation left perianal area with excision hidradenitis abscess (144 cm2). 2. Surgical preparation left posterior thigh with incision and drainage and excisional debridement hidradenitis abscess (96 cm2). Operative cultures from 09/29/20 positive for Streptococcus constellatus, Corynebacterium striatum, Anaerobic cocci, and Prevotella species. Pathology of left perianal and left posterior thigh abscess showed pieces of skin with underlying tisse with acute and chronic inflammation, granulation tissue reaction and abscess formation. 10/01/20 - Laparoscopic sigmoid colostomy placed by Dr. Osorio due to the complicated perineal wound secondary to hidradenitis suppurativa status post excision. Transferred TCU on 10/03/20. On Doxycycline and Cefdinir while in TCU. Discharged home on 10/28/20. 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 2.4 and 1.2 cm fluid collections along the medial subcutaneous tissues of the right buttock suggestive of localized abscesses. He saw Dr. Osorio who placed his colostomy, and he said this is all related to his hidradenitis and that Dr. Smith is able to keep treating him. He does suggest doing daily Epsom sitz baths to help with the drainage of the hidradenitis abscesses. Wound care - Wash daily with soap and water. Still encouraging daily Sitz baths with Epsome salt. Dry well, apply Collagen hydrogel covered with adaptic and topped with gauze. Tho the abimbola anal tunnel place 1/4 iodoform gauze and cover with gauze daily. Today he denies fever. His appetite has not been good. Encouraged protein supplementation. Progress of Wound: Left abimbola anal ulcer tunnel is stable. Left posterior thigh/ischial ulcer are improving. He continues to have thick, white drainage from his multiple areas of hidradenitis on his right groin and perineal area. Objective Data Objective Data Vital Signs: Vital Signs Temp Pulse Resp BP 97.6 F L 86 16 190/55 H 07/03/21 08:42 07/03/21 08:42 07/03/21 08:42 07/03/21 08:42 Oxygen Delivery Method Room Air Weight: 161 lb Body Mass Index (BMI) 22.1 Charges/Coding Procedures Integumentary 111xxx-113xx: [id number] Ayla subq tissue 20 sq cm/< Physical Exam Const alert and oriented x3 General Appearance: cooperative HEENT normocephalic Head and Scalp: atraumatic Resp normal respiratory effort Cardio regular rate Extremity normal capillary refill Skin Wound Narrative: Left abimbola anal ulcer tunnel is stable. Left posterior thigh/ischial ulcer are improving. He continues to have thick, white drainage from his multiple areas of hidradenitis on his right groin and perineal area. Neuro CN's II-XII intact bilaterally Psych Appearance: grossly normal Debridement Note Debridement Note Wound debrided: posterior thigh/ischium ulcer Laterality: Left Type of Debridement: Excisional debridement Anesthesia Used: 4% Lidocaine Solution Depth: Down to and including healthy tissue and in the subcutaneous layer Percentage of wound debrided: 100 Instrument Used: 5mm curette Tissue Removed: Non viable tissue and slough Severity: Fat Layer Exposed Amount of bleeding with debridement: Mild Bleeding Controlled with: Compression and gauze Patient tolerated procedure: Patient tolerated procedure well Post-Debridement Measurements and Additional Note: Post-Debridement Measurements/Treatment - Nurse 1 - General Ulcer Assessment Start: 07/03/21 08:41 Freq: Status: Active Protocol: ROC Activity Type Activity Date Activity User E-Sign Co-Sign Detail Recorded Client Recorded Date Recorded By Document 07/03/21 08:42 [facility] [id number] 07/03/21 08:48 [facility] 07/03/21 08:42 - Today's Visit Information Type of service Follow-up Visit (Physician/SLAT GRADER ) Arrival Mode Ambulatory Transfer Assistance None Accompanied by Patient Identification Verified (Name & Yes ) Patient Requires Transmission-Based No Precautions Height and Weight Body Mass Index (BMI) 22.1 BMI Classification Normal Vital Signs Temperature (97.8 F-99.1 F) 97.6 F L Temperature Source Temporal Pulse Rate (60-100) 86 Pulse Location Monitor Respiratory Rate (12-18) 16 Respiratory rate source Observation Oxygen Delivery Method Room Air Blood Pressure (90/60-120/80) 190/55 H Blood Pressure Mean (mm Hg) 100 Source Monitor Position Semi-Fowlers Blood Pressure Location Left Arm Comment didn't take bp meds this am per and pt ; counseled History Since Last Visit- (Skip if this is Patient's initial visit) Have you changed medications since your No last visit? Any new allergies or adverse reactions No Had a fall/change in ADL's that may Yes increase risk of falls Signs or symptoms of abuse and/or No neglect since last visit Have you been in the hospital since your No last visit? Has dressing in place as prescribed Yes Has compression in place as prescribed N/A Has offloadiing in place as prescribed N/A Experienced any changes in pain level or No management Left Footwear Regular Shoe Right Footwear Regular Shoe Pain Scale: 0-10 Numeric Is Patient Pain Free? Yes WC - Nurse 1 - General Ulcer Measurement Start: 07/03/21 08:41 Freq: Status: Active Protocol: Activity Type Activity Date Activity User E-Sign Co-Sign Detail Recorded Client Recorded Date Recorded By Document 07/03/21 08:42 [facility] [id number] 07/03/21 08:48 [facility] 07/03/21 08:42 Wound Center Nurse 1 4-left ischium ulcer -Combined with other wound No -Current Size (cm) - Length 2 -Current Size (cm) - Width 2.7 -Current Size (cm) - Depth 0.1 -Total Square Cm 5.4 -Date of Last Picture (Recall this 07/03/21 field) -Photo Taken Yes -Epithelialization Small 1-33% -Tunneling No -Undermining/Tunneling No -Circular Undermining No -Exudate Amt Small -Exudate Type Serosanguineous -Wound Margin Distinct, Outline Attached -Granulation Amt Large (67-100%) -Granulation Quality Red -Slough/Fibrin Yes -Necrosis Amt Small (1-33%) -Necrotic Tissue Type Adherent Slough -Texture (Abimbola-wound Skin Appearance) Assessed, Scarring -Moisture (Abimbola-wound Skin Appearance) Assessed -Color (Abimbola-wound Skin Appearance) Assessed -Temperature (Abimbola-wound Skin No Abnormality Appearance) (Pt Warm) -Tenderness on Palpation (Abimbola-wound No Skin Appearance) -Ulcer Cleansing Soap and Water -Foul Odor after Cleansing No -Anesthetic Used 4% Lidocaine Solution #3 Perianal ulcer -Combined with other wound No -Current Size (cm) - Length 1 -Current Size (cm) - Width 0.1 -Current Size (cm) - Depth 0.1 -Total Square Cm 0.1 -Date of Last Picture (Recall this 07/03/21 field) -Photo Taken Yes -Epithelialization Large 67-100% -Tunneling No -Undermining/Tunneling No -Circular Undermining No -Exudate Amt Small -Exudate Type Serosanguineous -Wound Margin Distinct, Outline Attached -Granulation Amt Small (1-33%) -Granulation Quality [place] -Slough/Fibrin Yes -Necrosis Amt Large (67-100%) -Necrotic Tissue Type Adherent Slough -Texture (Abimbola-wound Skin Appearance) Assessed, Scarring -Moisture (Abimbola-wound Skin Appearance) Assessed -Color (Abimbola-wound Skin Appearance) Assessed -Temperature (Abimbola-wound Skin No Abnormality Appearance) (Pt Warm) -Tenderness on Palpation (Abimbola-wound No Skin Appearance) -Ulcer Cleansing Soap and Water -Foul Odor after Cleansing No -Anesthetic Used 4% Lidocaine Solution WC - Nurse 2 - General Ulcer CM Notes Start: 07/03/21 08:41 Freq: Status: Active Protocol: Activity Type Activity Date Activity User E-Sign Co-Sign Detail Recorded Client Recorded Date Recorded By Document 07/03/21 08:57 LIZETTE [id number] 07/03/21 09:03 LIZETTE 07/03/21 08:57 Wound Center Nurse 2 4-left ischium ulcer -Time 08:57 -Correct Patient Yes -Correct Side, Site, Position Yes -Correct Procedure Yes -Procedure Performed Yes -Type of Procedure Debridement -Clinical Debridement Subcutaneous -Tissue Removed Subcutaneous -Post Debridement (cm) - Length 2.0 -Post Debridement (cm) - Width 3.5 -Post Debridement (cm) - Depth 0.1 -Total Square (Post) (cm) 7.00 -Area of Debridement (cm) - Length 2.0 -Area of Debridement (cm) - Width 3.5 -Total Square (Area) (cm) 7.00 -Tunneling No -Undermining/Tunneling No -Circular Undermining No -Wound/Ulcer Outcome Not Healed -Ulcer Cleansing Rinsed/ Irrigated with Saline -Foul Odor after Cleansing No -Bioengineered Tissue No -Bleeding Controlled with Pressure -Treatment Response Procedure Tolerated Well -Offloading No -Debridement - Subq, 1st 20sq cm Yes #3 Perianal ulcer -Time 08:58 -Correct Patient Yes -Correct Side, Site, Position Yes -Correct Procedure Yes -Procedure Performed Yes -Type of Procedure Debridement -Clinical Debridement Subcutaneous -Tissue Removed Subcutaneous -Post Debridement (cm) - Length 0.1 -Post Debridement (cm) - Width 0.1 -Post Debridement (cm) - Depth 2.6 -Total Square (Post) (cm) 0.01 -Area of Debridement (cm) - Length 0.1 -Area of Debridement (cm) - Width 0.1 -Total Square (Area) (cm) 0.01 -Tunneling No -Undermining/Tunneling No -Circular Undermining No -Wound/Ulcer Outcome Not Healed -Ulcer Cleansing Rinsed/ Irrigated with Saline -Foul Odor after Cleansing No -Bioengineered Tissue No -Bleeding Controlled with Pressure -Treatment Response Procedure Tolerated Well -Offloading No -Debridement - Subq, 1st 20sq cm No Pain Scale: 0-10 Numeric Is Patient Pain Free? Yes WC - Nurse 3 - General Ulcer D/C NN Start: 07/03/21 08:41 Freq: Status: Active Protocol: Activity Type Activity Date Activity User E-Sign Co-Sign Detail Recorded Client Recorded Date Recorded By Document 07/03/21 09:10 [id number] 07/03/21 09:11 BLUE 07/03/21 09:10 Wound Care Nurse 3 4-left ischium ulcer -Ulcer Cleansing Rinsed/ Irrigated with Saline -Primary Dressing Applied C Hydrogel ($), NonAdherent Contact Layer -Primary Dressing Covered/Secured with Dry Gauze, Secured with Tape #3 Perianal ulcer -Ulcer Cleansing Rinsed/ Irrigated with Saline -Primary Dressing Covered/Secured with Dry Gauze, Secured with Tape Pain Scale: 0-10 Numeric Is Patient Pain Free? Yes WC - Visit Discharge Discharge Condition Stable Ambulatory Status Ambulatory Transportation Private Auto Accompanied by Additional Wound Wound debrided: abimbola anal ulcer/tunnel Laterality: Left Type of Debridement: Excisional debridement Anesthesia Used: 5% Lidocaine Gel Depth: Down to and including healthy tissue and in the subcutaneous layer Percentage of wound debrided: 100 Instrument Used: 3mm curette Tissue Removed: Non viable tissue and slough Severity: Fat Layer Exposed Amount of bleeding with debridement: Mild Bleeding Controlled with: Pressure and Compression and gauze Patient tolerated procedure: Patient tolerated procedure well Assessment/Plan Assessment/Plan (1) Chronic ulcer of buttock: CODE(S): L98.419 - Non-pressure chronic ulcer of buttock with unspecified severity (2) Hydradenitis: CODE(S): L73.2 - Hidradenitis suppurativa (3) Diabetes mellitus type 2, uncontrolled, with complications: CODE(S): E11.8 - Type 2 diabetes mellitus with unspecified complications; E11.65 - Type 2 diabetes mellitus with hyperglycemia (4) 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 The left ischial/posterior thigh and the left perianal ulcer with a tunnel. The anterior groin portion is healed. Wound care - Wash with soap and water daily. Continue daily Sitz baths to help with the other areas of hidradenitis drainage/irriatation. Apply Collagen hydrogel to the left posterior thigh/ischial ulcer covered with adaptic and topped with gauze daily and as needed. The left abimbola anal ulcer pack 1/4 iodoform gauze into the base of the ulcer daily and as needed. Continue Sitz baths daily to help with the other areas of hidradenitis. Prealbumin 10.8 on 10/01/20. HgA1c on 05/26/21 10.6. Changed his medications to Trijardy xr. Encouraged increased protein intake to help with wound healing. Encouraged to stop smoking to help with wound healing. He states he has cut back to 1/2 pack per day. He saw Dr. Parks who did a procedure with a balloon on his vessels. Dr. Parks is dealing with his edema. He has +1 edema of bilateral lower extremities. Due to he Lupus and uncontrolled DM, it may cause a delay in his wound healing. Follow up 3 weeks.
== END 2021-07-11 23:59 | disposition home or self-care (01) ==
LOC: WC 08:45
PROVIDERS: PCP Nurse Practitioner; Referring Provider Nurse Practitioner Family; Visit Provider Nurse Practitioner Family
DX: E11.622 Type 2 diabetes mellitus with other skin ulcer (principal); L97.122 Non-pressure chronic ulcer of left thigh with fat layer exposed; L98.412 Non-pressure chronic ulcer of buttock with fat layer exposed; M32.9 Systemic lupus erythematosus, unspecified; E11.65 Type 2 diabetes mellitus with hyperglycemia; E11.59 Type 2 diabetes mellitus with other circulatory complications; L73.2 Hidradenitis suppurativa
CPT/HCPCS: 11042

== ENCOUNTER → 2021-07-18 | Outpatient (CLI) | payer OTHER, SELFPAY ==
[2021-07-18 12:00] LABS: Absolute Lymphocyte Count 2.02 X10^3/uL (0.83-4.51); Absolute Neutrophil Count 8.1 X10^3/uL (2.0-7.7); Basophil# 0.06 X10^3/uL; Basophil% 0.5 % (0-1); Eosinophil# 0.14 X10^3/uL; Eosinophils% 1.3 % (0-5); Hematocrit 31.1 % (40-54); Hemoglobin 9.1 g/dL (13.0-16.5); Lymphocyte # 2.02 X10^3/ul (0.83-4.51); Lymphocyte % 18.4 % (19-41); Mean Corp Hgb Conc 29.3 g/dL (32-36); Mean Corpuscular Hgb 23.9 pg (27.0-32.0); Mean Corpuscular Volume 81.8 fL (80-94); Mean Platelet Vol. 8.9 fl (6.2-12.0); Monocyte# 0.61 X10^3/uL; Monocyte% 5.6 % (0-10); NRBC Flagged by Analyzer 0 % (0-5); Neutrophil # 8.11 X10^3/uL (2.7-7.7); Neutrophil % 73.8 % (47-70); Platelet Count 398 K/mm3 (150-450); RBC Distribution Width CV 14.3 % (11.6-14.6); RBC Distribution Width SD 42.2 fl (35.1-43.9)
[2021-07-18 12:53] LABS: ALB/GLOB Ratio 0.3 RATIO (0.9-2.4); AST(SGOT) 12 U/L (15-37); Alanine Aminotransfer ALT/SGPT 11 U/L (16-61); Alkaline Phosphatase 101 U/L (45-117); Anion Gap 7 (5-15); BUN 8 mg/dL (7-18); BUN/Creat Ratio 6.8 RATIO (10-20); Chloride 107 mmol/L (98-107); Creatinine, Serum 1.17 mg/dL (0.70-1.30); EST Glomerular Filtration Rate 68 mL/min (>60); Est Glom Filt Rate - Afr Amer 82 mL/min (>60); Globulin 5.8 g/dL (2.2-4.2); Glucose 161 mg/dL (74-106); Potassium 3.8 mmol/L (3.5-5.1); Protein, Total 7.8 g/dL (6.4-8.2); Sodium Level 139 mmol/L (136-145)
== END | disposition home or self-care (01) ==
LOC: MTLAB 11:07
PROVIDERS: PCP Nurse Practitioner; Referring Provider Internal Medicine Rheumatology; Visit Provider Internal Medicine Rheumatology
DX: M06.4 Inflammatory polyarthropathy (principal); J44.9 Chronic obstructive pulmonary disease, unspecified; E11.9 Type 2 diabetes mellitus without complications; R76.8 Other specified abnormal immunological findings in serum; L73.2 Hidradenitis suppurativa; I25.10 Atherosclerotic heart disease of native coronary artery without angina pectoris; I10 Essential (primary) hypertension; M21.41 Flat foot [pes planus] (acquired), right foot; E78.5 Hyperlipidemia, unspecified; Z79.899 Other long term (current) drug therapy
CPT/HCPCS: 36415; 80053; 85025

== ENCOUNTER 2021-07-24 08:45 | Outpatient (RCR) | payer OTHER, SELFPAY ==
[2021-07-12 00:44] VITALS: BP 190/55; PULSE 86; RESP 16; TEMP 36.4; BMI 22.1
[2021-07-24 08:39] VITALS: BP 168/74; PULSE 87; TEMP 36.6; BMI 22.1
--- NOTE | 2021-07-24 12:10 | PN.PCM_ITS ---
History of Present Illness Date of Service: 07/24/21 Chief Complaint: Nonhealing hidradenitis ulcer left inguinal, perineal, and base of scrotum. History of Wound: Surgery 03/22/20 - 1. Surgical preparation left inguinal area with excision hidradenitis (315 cm2 total wound). 2. Surgical preparation perineal area with excision hidradenitis (315 cm2 total wound). 3. Surgical preparation base left scrotum with incision and drainage and excision hidradenitis (315 cm2 total wound). Operative culture from 03/22/20 - Enterococcus faecalis and Streptococcus group F, Anaerobic cocci and Prevotella bivia. He was treated with Linezolid and Flagyl and has completed them. Ultrasound of his his left lower extremity ordered and done 04/15/2020. It showed there was no evidence of left lower extremity deep vein thrombosis. Valves are competent and compressible. He will wear Tubigrip for compression. Instructed him to keep legs elevated when sitting. Instructed him to avoid standing for long periods of time. He saw Dr. Parks an had an angioplasty of some of his vessels in his legs last week. He states that his PCP ran some blood work and states he has Lupus. He went to the ED on 05/29/20 for fevers. They cultured his left groin ulcer and it showed Ecoli, Klebsiella pneumoniae, Serratia marcenscens, Streptococcus constellatus, Staphylococcus peudintermedia. He continued the Levaquin and Flagyl and has completed them. Patient admitted to the hospital for increased redness and swelling of his left groin and buttocks on 09/27/20. Patient was started on IV Vancomycin, Levaquin and Flagyl by ID. Surgery 09/29/20 - 1. Surgical preparation left perianal area with excision hi dradenitis abscess (144 cm2). 2. Surgical preparation left posterior thigh with incision and drainage and excisional debridement hidradenitis abscess (96 cm2). Operative cultures from 09/29/20 positive for Streptococcus constellatus, Corynebacterium striatum, Anaerobic cocci, and Prevotella species. Pathology of left perianal and left posterior thigh abscess showed pieces of skin with underlying tisse with acute and chronic inflammation, granulation tissue reaction and abscess formation. 10/01/20 - Laparoscopic sigmoid colostomy placed by Dr. Osorio due to the complicated perineal wound secondary to hidradenitis suppurativa status post excision. Transferred TCU on 10/03/20. On Doxycycline and Cefdinir while in TCU. Discharged home on 10/28/20. 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 2.4 and 1.2 cm fluid collections along the medial subcutaneous tissues of the right buttock suggestive of localized abscesses. He saw Dr. Osorio who placed his colostomy, and he said this is all related to his hidradenitis and that Dr. Smith is able to keep treating him. He does suggest doing daily Epsom sitz baths to help with the drainage of the hidradenitis abscesses. Wound care - Wash daily with soap and water. Still encouraging daily Sitz baths with Epsom salt. Dry well, apply Collagen hydrogel covered with adaptic and topped with gauze to the left ischial ulcer cluster. The abimbola anal tunnel place has become too difficult for his to pack, place Aquacel-Ag on top to help absorb the drainage. Today he denies fever. His appetite has been ok. Encouraged protein supplementation. Progress of Wound: Left ischial ulcer cluster is pink. The abimbola anal tunnel is difficult to pack. His area of hidradenitis on the right is firm and draining thick, white drainage. Objective Data Objective Data Vital Signs: Vital Signs Temp Pulse Resp BP 97.8 F 87 16 168/74 H 07/24/21 08:39 07/24/21 08:39 07/12/21 00:44 07/24/21 08:39 Weight: 161 lb Body Mass Index (BMI) 22.1 Charges/Coding Procedures Integumentary 111xxx-113xx: [id number] Ayla subq tissue 20 sq cm/< Physical Exam Const alert and oriented x3 General Appearance: cooperative HEENT normocephalic Resp normal respiratory effort Cardio regular rate Skin Wound Narrative: Left ischial ulcer cluster is pink. The abimbola anal tunnel is difficult to pack. His area of hidradenitis on the right is firm and draining thick, white drainage. Neuro Sensorium / Orientation: awake and alert Psych Appearance: grossly normal Debridement Note Debridement Note Wound debrided: ischial ulcer cluster Laterality: Left Type of Debridement: Excisional debridement Anesthesia Used: 5% Lidocaine Gel Depth: Down to and including healthy tissue and in the subcutaneous layer Percentage of wound debrided: 100 Instrument Used: 3mm curette Tissue Removed: Non viable tissue and slough Severity: Fat Layer Exposed Amount of bleeding with debridement: Mild Bleeding Controlled with: Compression and gauze Patient tolerated procedure: Patient tolerated procedure well Post-Debridement Measurements and Additional Note: Post-Debridement Measurements/Treatment - Nurse 1 - General Ulcer Assessment Start: 07/24/21 08:39 Freq: Status: Active Protocol: ROC Activity Type Activity Date Activity User E-Sign Co-Sign Detail Recorded Client Recorded Date Recorded By Document 07/24/21 08:39 BLUE [id number] 07/24/21 08:45 BLUE 07/24/21 08:39 WC - Today's Visit Information Type of service Follow-up Visit (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 Any new allergies or adverse reactions No Had a fall/change in ADL's that may No increase risk of falls Signs or symptoms of abuse and/or No neglect since last visit Have you been in the hospital since your No last visit? Has dressing in place as prescribed Yes Has compression in place as prescribed N/A Has offloadiing in place as prescribed N/A Experienced any changes in pain level or No management Left Footwear Regular Shoe Right Footwear Regular Shoe Pain Scale: 0-10 Numeric Is Patient Pain Free? Yes BEKA - Nurse 1 - General Ulcer Measurement Start: 07/24/21 08:39 Freq: Status: Active Protocol: Activity Type Activity Date Activity User E-Sign Co-Sign Detail Recorded Client Recorded Date Recorded By Document 07/24/21 08:39 BLUE [id number] 07/24/21 08:45 KR 07/24/21 08:39 Wound Center Nurse 1 4-left ischium ulcer -Current Size (cm) - Length 2 -Current Size (cm) - Width 3.5 -Current Size (cm) - Depth 0.1 -Total Square Cm 7.0 -Exudate Amt Small -Exudate Type Serosanguineous -Wound Margin Distinct, Outline Attached -Granulation Amt Large (67-100%) -Granulation Quality [place] -Necrosis Amt None Present (0 %) -Texture (Abimbola-wound Skin Appearance) Assessed, Scarring -Moisture (Abimbola-wound Skin Appearance) No Abnormality, Assessed -Color (Abimbola-wound Skin Appearance) No Abnormality, Assessed -Temperature (Abimbola-wound Skin No Abnormality Appearance) (Pt Warm) -Tenderness on Palpation (Abimbola-wound No Skin Appearance) -Ulcer Cleansing Rinsed/ Irrigated with Saline -Foul Odor after Cleansing No -Anesthetic Used 4% Lidocaine Solution #3 Perianal ulcer -Current Size (cm) - Length 0.1 -Current Size (cm) - Width 0.1 -Current Size (cm) - Depth 0.1 -Total Square Cm 0.01 -Wound Margin Distinct, Outline Attached -Granulation Amt Large (67-100%) -Granulation Quality [place] -Texture (Abimbola-wound Skin Appearance) Assessed, Scarring -Moisture (Abimbola-wound Skin Appearance) No Abnormality, Assessed -Color (Abimbola-wound Skin Appearance) No Abnormality, Assessed -Temperature (Abimbola-wound Skin No Abnormality Appearance) (Pt Warm) -Tenderness on Palpation (Abimbola-wound No Skin Appearance) -Ulcer Cleansing Rinsed/ Irrigated with Saline -Foul Odor after Cleansing No -Anesthetic Used 4% Lidocaine Solution WC - Nurse 2 - General Ulcer CM Notes Start: 07/24/21 08:39 Freq: Status: Active Protocol: Activity Type Activity Date Activity User E-Sign Co-Sign Detail Recorded Client Recorded Date Recorded By Document 07/24/21 08:54 LIZETTE [id number] 07/24/21 09:00 LIZETTE 07/24/21 08:54 Wound Center Nurse 2 4-left ischium ulcer -Time 08:56 -Correct Patient Yes -Correct Side, Site, Position Yes -Correct Procedure Yes -Procedure Performed Yes -Type of Procedure Debridement -Clinical Debridement Subcutaneous -Tissue Removed Subcutaneous -Post Debridement (cm) - Length 2.0 -Post Debridement (cm) - Width 4.0 -Post Debridement (cm) - Depth 0.1 -Total Square (Post) (cm) 8.00 -Area of Debridement (cm) - Length 2.0 -Area of Debridement (cm) - Width 4.0 -Total Square (Area) (cm) 8.00 -Tunneling No -Undermining/Tunneling No -Circular Undermining No -Wound/Ulcer Outcome Not Healed -Ulcer Cleansing Rinsed/ Irrigated with Saline -Foul Odor after Cleansing No -Bioengineered Tissue No -Bleeding Controlled with Pressure -Treatment Response Procedure Tolerated Well -Offloading No -Debridement - Subq, 1st 20sq cm Yes #3 Perianal ulcer -Time 08:57 -Correct Patient Yes -Correct Side, Site, Position Yes -Correct Procedure Yes -Procedure Performed Yes -Type of Procedure Debridement -Clinical Debridement Subcutaneous -Tissue Removed Subcutaneous -Post Debridement (cm) - Length 0.1 -Post Debridement (cm) - Width 0.1 -Post Debridement (cm) - Depth 2.6 -Total Square (Post) (cm) 0.01 -Area of Debridement (cm) - Length 0.1 -Area of Debridement (cm) - Width 0.1 -Total Square (Area) (cm) 0.01 -Tunneling No -Undermining/Tunneling No -Circular Undermining No -Wound/Ulcer Outcome Not Healed -Ulcer Cleansing Rinsed/ Irrigated with Saline -Foul Odor after Cleansing No -Bioengineered Tissue No -Bleeding Controlled with Pressure -Treatment Response Procedure Tolerated Well -Offloading No -Debridement - Subq, 1st 20sq cm No Pain Scale: 0-10 Numeric Is Patient Pain Free? Yes WC - Nurse 3 - General Ulcer D/C NN Start: 07/24/21 08:39 Freq: Status: Active Protocol: Activity Type Activity Date Activity User E-Sign Co-Sign Detail Recorded Client Recorded Date Recorded By Document 07/24/21 09:10 BLUE [id number] 07/24/21 09:11 BLUE 07/24/21 09:10 Wound Care Nurse 3 4-left ischium ulcer -Ulcer Cleansing Rinsed/ Irrigated with Saline -Primary Dressing Applied Aquacel AG 4x4, C Hydrogel ($) -Primary Dressing Covered/Secured with Dry Gauze, Secured with Tape -Aquacel AG 4x4 1 Pain Scale: 0-10 Numeric Is Patient Pain Free? Yes WC - Visit Discharge Discharge Condition Stable Ambulatory Status Ambulatory Transportation Private Auto Accompanied by Additional Wound Wound debrided: abimbola anal ulcer Laterality: Left Type of Debridement: Excisional debridement Anesthesia Used: 5% Lidocaine Gel Depth: Down to and including healthy tissue and in the subcutaneous layer Percentage of wound debrided: 100 Instrument Used: 3mm curette Tissue Removed: Non viable tissue and slough Severity: Fat Layer Exposed Amount of bleeding with debridement: Mild Bleeding Controlled with: Pressure Patient tolerated procedure: Patient tolerated procedure well Assessment/Plan Assessment/Plan (1) Chronic ulcer of buttock: CODE(S): L98.419 - Non-pressure chronic ulcer of buttock with unspecified severity (2) Hydradenitis: CODE(S): L73.2 - Hidradenitis suppurativa (3) Diabetes mellitus type 2, uncontrolled, with complications: CODE(S): E11.8 - Type 2 diabetes mellitus with unspecified complications; E11.65 - Type 2 diabetes mellitus with hyperglycemia (4) 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 The left ischial/posterior thigh and the left perianal ulcer with a tunnel. The anterior groin portion is healed. Wound care - Wash with soap and water daily. Continue daily Sitz baths to help with the other areas of hidradenitis drainage/irritation. Apply Collagen hydrogel cover with adaptic and top with gauze to the left posterior thigh/ischial ulcer covered with adaptic and topped with gauze daily and as needed. The left abimbola anal ulcer is becoming too difficult for his to pack, so will have her place Aquacel-Ag over the perianal ulcer opening to absorb the drainage daily. Continue Sitz baths daily to help with the other areas of hidradenitis. Prealbumin 10.8 on 10/01/20. HgA1c on 05/26/21 10.6. Changed his medications to Trijardy xr. Encouraged increased protein intake to help with wound healing. Encouraged to stop smoking to help with wound healing. He states he has cut back to 1/2 pack per day. He saw Dr. Parks who did a procedure with a balloon on his vessels. Dr. Parks is dealing with his edema. He has +1 edema of bilateral lower extremities. Due to he Lupus and uncontrolled DM, it may cause a delay in his wound healing. Encouraged patient to stop smoking as it may have deleterious effects on wound healing. Follow up 3 weeks.
[2021-07-24 13:18] VITALS: BP 112/71; PULSE 76; TEMP 35.9; BMI 22.1
== END 2021-08-10 23:59 | disposition home or self-care (01) ==
LOC: WC 08:45
PROVIDERS: PCP Nurse Practitioner; Referring Provider Nurse Practitioner Family; Visit Provider Nurse Practitioner Family
DX: E11.622 Type 2 diabetes mellitus with other skin ulcer (principal); L97.122 Non-pressure chronic ulcer of left thigh with fat layer exposed; M32.9 Systemic lupus erythematosus, unspecified; E11.65 Type 2 diabetes mellitus with hyperglycemia; E11.59 Type 2 diabetes mellitus with other circulatory complications; L73.2 Hidradenitis suppurativa; K62.6 Ulcer of anus and rectum
CPT/HCPCS: 11042

== ENCOUNTER 2021-08-21 08:36 | Outpatient (RCR) | payer OTHER, SELFPAY ==
[2021-08-11 00:27] VITALS: BP 112/71; PULSE 76; RESP 16; TEMP 35.9; BMI 22.1
[2021-08-21 08:45] VITALS: BP 190/74; PULSE 65; TEMP 36.2; BMI 22.1
--- NOTE | 2021-08-21 10:24 | PCM.WC.PN ---
History of Present Illness Date of Service: 08/21/21 Chief Complaint: Nonhealing hidradenitis ulcer left inguinal, perineal, and base of scrotum. History of Wound: Surgery 03/22/20 - 1. Surgical preparation left inguinal area with excision hidradenitis (315 cm2 total wound). 2. Surgical preparation perineal area with excision hidradenitis (315 cm2 total wound). 3. Surgical preparation base left scrotum with incision and drainage and excision hidradenitis (315 cm2 total wound). Operative culture from 03/22/20 - Enterococcus faecalis and Streptococcus group F, Anaerobic cocci and Prevotella bivia. He was treated with Linezolid and Flagyl and has completed them. Ultrasound of his his left lower extremity ordered and done 04/15/2020. It showed there was no evidence of left lower extremity deep vein thrombosis. Valves are competent and compressible. He will wear Tubigrip for compression. Instructed him to keep legs elevated when sitting. Instructed him to avoid standing for long periods of time. He saw Dr. Kasey live had an angioplasty of some of his vessels in his legs last week. He states that his PCP ran some blood work and states he has Lupus. He went to the ED on 05/29/20 for fevers. They cultured his left groin ulcer and it showed Ecoli, Klebsiella pneumoniae, Serratia marcenscens, Streptococcus constellatus, Staphylococcus peudintermedia. He continued the Levaquin and Flagyl and has completed them. Patient admitted to the hospital for increased redness and swelling of his left groin and buttocks on 09/27/20. Patient was started on IV Vancomycin, Levaquin and Flagyl by ID. Surgery 09/29/20 - 1. Surgical preparation left perianal area with excision hidradenitis abscess (144 cm2). 2. Surgical preparation left posterior thigh with incision and drainage and excisional debridement hidradenitis abscess (96 cm2). Operative cultures from 09/29/20 positive for Streptococcus constellatus, Corynebacterium striatum, Anaerobic cocci, and Prevotella species. Pathology of left perianal and left posterior thigh abscess showed pieces of skin with underlying tisse with acute and chronic inflammation, granulation tissue reaction and abscess formation. 10/01/20 - Laparoscopic sigmoid colostomy placed by Dr. Osorio due to the complicated perineal wound secondary to hidradenitis suppurativa status post excision. Transferred TCU on 10/03/20. On Doxycycline and Cefdinir while in TCU. Discharged home on 10/28/20. 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 2.4 and 1.2 cm fluid collections along the medial subcutaneous tissues of the right buttock suggestive of localized abscesses. He saw Dr. Osorio who placed his colostomy, and he said this is all related to his hidradenitis and that Dr. Smith is able to keep treating him. He does suggest doing daily Epsom sitz baths to help with the drainage of the hidradenitis abscesses. Wound care - Wash daily with soap and water. Still encouraging daily Sitz baths with Epsom salt. Dry well. Pack the abimbola anal tunnel with iodiform packing, cover with gauze daily. Today he denies fever. His appetite has been ok. Encouraged protein supplementation. Progress of Wound: Left ischial ulcer is healed. The perianal ulcer continues to have a tunnel. His hidradenitis is stable today. Objective Data Objective Data Vital Signs: Vital Signs Temp Pulse Resp BP 97.2 F L 65 16 190/74 H 08/21/21 08:45 08/21/21 08:45 08/11/21 00:27 08/21/21 08:45 Weight: 161 lb Body Mass Index (BMI) 22.1 Charges/Coding Procedures Integumentary 111xxx-113xx: 29446 Ayla subq tissue 20 sq cm/< Physical Exam Const alert and oriented x3 General Appearance: cooperative HEENT normocephalic Resp normal respiratory effort Cardio regular rate Extremity normal capillary refill Skin Wound Narrative: Left ischial ulcer cluster is healed today. The abimbola anal tunnel is still present and stable. His area of hidradenitis on the right is stable today. Neuro Sensorium / Orientation: awake and alert Psych Appearance: grossly normal Debridement Note Debridement Note Wound debrided: perianal ulcer Laterality: Left Type of Debridement: Excisional debridement Anesthesia Used: 5% Lidocaine Gel Depth: Down to and including healthy tissue and in the subcutaneous layer Percentage of wound debrided: 100 Instrument Used: 3mm curette Tissue Removed: Non viable tissue and slough Severity: Fat Layer Exposed Amount of bleeding with debridement: Mild Bleeding Controlled with: Pressure Patient tolerated procedure: Patient tolerated procedure well Post-Debridement Measurements and Additional Note: Post-Debridement Measurements/Treatment - Nurse 1 - General Ulcer Assessment Start: 08/21/21 08:45 Freq: Status: Active Protocol: ROC Activity Type Activity Date Activity User E-sign Co-sign Detail Recorded Client Recorded Date Recorded By Document 08/21/21 08:45 JAN [id number] 08/21/21 08:54 JAN 08/21/21 08:45 - Today's Visit Information Type of service Follow-up Visit (Physician/FINISHING AREA SUPERVISOR ) Arrival Mode Ambulatory Patient Identification Verified (Name & Yes ) Patient Requires Transmission-Based No Precautions Safety Precautions NA Height and Weight Body Mass Index (BMI) 22.1 BMI Classification Normal Vital Signs Temperature (97.8 F-99.1 F) 97.2 F L Temperature Source Temporal Pulse Rate (60-100) 65 Pulse Location Monitor Blood Pressure (90/60-120/80) 190/74 H Blood Pressure Mean (mm Hg) 112 Source Monitor History Since Last Visit- (Skip if this is Patient's initial visit) Have you changed medications since your No last visit? Any new allergies or adverse reactions No Had a fall/change in ADL's that may No increase risk of falls Signs or symptoms of abuse and/or No neglect since last visit Have you been in the hospital since your No last visit? Has dressing in place as prescribed Yes Has compression in place as prescribed N/A Has offloadiing in place as prescribed N/A Experienced any changes in pain level or No management Left Footwear Regular Shoe Right Footwear Regular Shoe Pain Scale: 0-10 Numeric Is Patient Pain Free? Yes - Nurse 1 - General Ulcer Measurement Start: 08/21/21 08:45 Freq: Status: Active Protocol: Activity Type Activity Date Activity User E-sign Co-sign Detail Recorded Client Recorded Date Recorded By Document 08/21/21 08:45 JAN [id number] 08/21/21 08:54 JAN 08/21/21 08:45 Wound Center Nurse 1 4-left ischium ulcer -Combined with other wound No -Current Size (cm) - Length 0.1 -Current Size (cm) - Width 0.1 -Current Size (cm) - Depth 0.1 -Total Square Cm 0.01 -Date of Last Picture (Recall this 08/21/21 field) -Photo Taken Yes -Epithelialization None Present -Tunneling No -Undermining/Tunneling No -Circular Undermining No -Change in Wound Grade/Stage No -Exudate Amt None Present -Wound Margin Distinct, Outline Attached -Granulation Amt Large (67-100%) -Granulation Quality [place],Red -Slough/Fibrin No -Necrosis Amt None Present (0 %) -Structure Exposed N/A -Texture (Abimbola-wound Skin Appearance) Assessed, Scarring -Moisture (Abimbola-wound Skin Appearance) No Abnormality, Assessed -Color (Abimbola-wound Skin Appearance) No Abnormality, Assessed -Temperature (Abimbola-wound Skin No Abnormality Appearance) (Pt Warm) -Tenderness on Palpation (Abimbola-wound No Skin Appearance) -Ulcer Cleansing Rinsed/ Irrigated with Saline -Foul Odor after Cleansing No -Anesthetic Used 4% Lidocaine Solution #3 Perianal ulcer -Combined with other wound No -Current Size (cm) - Length 0.1 -Current Size (cm) - Width 0.1 -Current Size (cm) - Depth 0.1 -Total Square Cm 0.01 -Date of Last Picture (Recall this 08/21/21 field) -Photo Taken Yes -Tunneling No -Undermining/Tunneling No -Circular Undermining No -Change in Wound Grade/Stage No -Exudate Amt None Present -Slough/Fibrin No -Necrosis Amt None Present (0 %) -Structure Exposed N/A -Texture (Abimbola-wound Skin Appearance) Assessed, Scarring -Moisture (Abimbola-wound Skin Appearance) No Abnormality, Assessed -Color (Abimbola-wound Skin Appearance) No Abnormality, Assessed -Temperature (Abimbola-wound Skin No Abnormality Appearance) (Pt Warm) -Tenderness on Palpation (Abimbola-wound No Skin Appearance) -Ulcer Cleansing Rinsed/ Irrigated with Saline -Foul Odor after Cleansing No -Anesthetic Used 5% Lidocaine Gel WC - Nurse 2 - General Ulcer CM Notes Start: 08/21/21 08:45 Freq: Status: Active Protocol: Activity Type Activity Date Activity User E-sign Co-sign Detail Recorded Client Recorded Date Recorded By Document 08/21/21 09:06 LIZETTE [id number] 08/21/21 09:08 LIZETTE 08/21/21 09:06 Wound Center Nurse 2 4-left ischium ulcer -Correct Patient No -Correct Side, Site, Position No -Correct Procedure No -Procedure Performed No -Post Debridement (cm) - Length 0 -Post Debridement (cm) - Width 0 -Post Debridement (cm) - Depth 0 -Total Square (Post) (cm) 0 -Area of Debridement (cm) - Length 0 -Area of Debridement (cm) - Width 0 -Total Square (Area) (cm) 0 -Wound/Ulcer Outcome Healed- Epithelialized #3 Perianal ulcer -Correct Patient Yes -Correct Side, Site, Position Yes -Correct Procedure Yes -Procedure Performed Yes -Type of Procedure Debridement -Clinical Debridement Subcutaneous -Tissue Removed Subcutaneous -Post Debridement (cm) - Length 0.2 -Post Debridement (cm) - Width 0.2 -Post Debridement (cm) - Depth 2.5 -Total Square (Post) (cm) 0.04 -Area of Debridement (cm) - Length 0.2 -Area of Debridement (cm) - Width 0.2 -Total Square (Area) (cm) 0.04 -Undermining/Tunneling No -Circular Undermining No -Wound/Ulcer Outcome Not Healed -Ulcer Cleansing Rinsed/ Irrigated with Saline -Foul Odor after Cleansing No -Bioengineered Tissue No -Bleeding Controlled with Pressure -Treatment Response Procedure Tolerated Well -Offloading No -Debridement - Subq, 1st 20sq cm Yes Pain Scale: 0-10 Numeric Is Patient Pain Free? Yes Assessment/Plan Assessment/Plan (1) Ulcer of perianal area with fat layer exposed: CODE(S): L98.492 - Non-pressure chronic ulcer of skin of other sites with fat layer exposed (2) Chronic ulcer of buttock: CODE(S): L98.419 - Non-pressure chronic ulcer of buttock with unspecified severity (3) Hydradenitis: CODE(S): L73.2 - Hidradenitis suppurativa (4) Diabetes mellitus type 2, uncontrolled, with complications: CODE(S): E11.8 - Type 2 diabetes mellitus with unspecified complications; E11.65 - Type 2 diabetes mellitus with hyperglycemia (5) Diabetes mellitus: CODE(S): E11.9 - Type 2 diabetes mellitus without complications QUALIFIERS: Diabetes mellitus type: type 2 Diabetes mellitus assisted insulin use: without rodent exterminator use Diabetes mellitus complication status: with circulatory complication Diabetes mellitus complication detail: with other circulatory complications Qualified Code(s): E11.59 - Type 2 diabetes mellitus with other circulatory complications (6) Tobacco dependence syndrome: CODE(S): F17.200 - Nicotine dependence, unspecified, uncomplicated PLAN: Plan The left ischial/posterior thigh ulcer is healed today. He continues to have the left perianal ulcer with a tunnel. Wound care - Wash with soap and water daily. Continue daily Sitz baths to help with the other areas of hidradenitis drainage/irritation. Apply lotion to the left posterior thigh/ischial healed area to help soften the scar tissue. The left abimbola anal ulcer is large enough to pack so will start to pack with iodoform gauze daily and top wit gauze. Continue Sitz baths daily to help with the other areas of hidradenitis. Prealbumin 10.8 on 10/01/20. HgA1c on 05/26/21 10.6. Changed his medications to Trijardy xr. Encouraged increased protein intake to help with wound healing. Encouraged to stop smoking to help with wound healing. He states he has cut back to 1/2 pack per day. He saw Dr. Parks who did a procedure with a balloon on his vessels. Dr. Parks is dealing with his edema. He has +1 edema of bilateral lower extremities. Due to he Lupus and uncontrolled DM, it may cause a delay in his wound healing. Encouraged patient to stop smoking as it may have deleterious effects on wound healing. Follow up 3 weeks.
== END 2021-09-10 23:59 | disposition home or self-care (01) ==
LOC: WC 08:36
PROVIDERS: PCP Nurse Practitioner; Referring Provider Nurse Practitioner Family; Visit Provider Nurse Practitioner Family
DX: E11.622 Type 2 diabetes mellitus with other skin ulcer (principal); L98.492 Non-pressure chronic ulcer of skin of other sites with fat layer exposed; M32.9 Systemic lupus erythematosus, unspecified; E11.59 Type 2 diabetes mellitus with other circulatory complications; F17.200 Nicotine dependence, unspecified, uncomplicated; L73.2 Hidradenitis suppurativa
CPT/HCPCS: 11042

== ENCOUNTER → 2021-09-05 | Outpatient (CLI) | payer OTHER, SELFPAY ==
[2021-09-04 21:42] LABS: Absolute Lymphocyte Count 2.17 X10^3/uL (0.83-4.51); Absolute Neutrophil Count 9.1 X10^3/uL (2.0-7.7); Basophil# 0.05 X10^3/uL; Basophil% 0.4 % (0-1); Eosinophils% 0.8 % (0-5); Hematocrit 29.1 % (40-54); Hemoglobin 8.8 g/dL (13.0-16.5); Lymphocyte # 2.17 X10^3/ul (0.83-4.51); Lymphocyte % 17.9 % (19-41); Mean Corp Hgb Conc 30.2 g/dL (32-36); Mean Corpuscular Volume 79.5 fL (80-94); Mean Platelet Vol. 9.4 fl (6.2-12.0); Monocyte# 0.63 X10^3/uL; Monocyte% 5.2 % (0-10); NRBC Flagged by Analyzer 0 % (0-5); Neutrophil # 9.11 X10^3/uL (2.7-7.7); Neutrophil % 75.2 % (47-70); Platelet Count 432 K/mm3 (150-450); RBC Distribution Width CV 14.7 % (11.6-14.6); RBC Distribution Width SD 42.5 fl (35.1-43.9); Red Blood Count 3.66 M/mm3 (4.6-6.2); White Blood Count 12.1 K/mm3 (4.4-11.0)
[2021-09-04 21:59] LABS: ALB/GLOB Ratio 0.4 RATIO (0.9-2.4); AST(SGOT) 10 U/L (15-37); Alanine Aminotransfer ALT/SGPT 9 U/L (16-61); Albumin, Serum 1.9 g/dL (3.2-5.0); Alkaline Phosphatase 110 U/L (45-117); Anion Gap 2 (5-15); BUN 9 mg/dL (7-18); BUN/Creat Ratio 6.9 RATIO (10-20); Calcium,Total 8.7 mg/dL (8.5-10.1); Chloride 105 mmol/L (98-107); Creatinine, Serum 1.31 mg/dL (0.70-1.30); EST Glomerular Filtration Rate 60 mL/min (>60); Est Glom Filt Rate - Afr Amer 72 mL/min (>60); Globulin 5.4 g/dL (2.2-4.2); Glucose 240 mg/dL (74-106); Potassium 3.9 mmol/L (3.5-5.1); Protein, Total 7.3 g/dL (6.4-8.2); Sodium Level 136 mmol/L (136-145)
[2021-09-05 11:30] LABS: Iron Binding Capacity,Total 167 ug/dL (250-450)
[2021-09-06 13:25] LABS: Transferrin 150 mg/dL (177-329)
== END | disposition home or self-care (01) ==
PROVIDERS: Referring Provider Nurse Practitioner; Visit Provider Nurse Practitioner
DX: E11.9 Type 2 diabetes mellitus without complications (principal); D63.8 Anemia in other chronic diseases classified elsewhere
CPT/HCPCS: 80053; 83550; 84466; 85025

== ENCOUNTER 2021-09-11 08:28 | Outpatient (RCR) | payer OTHER, SELFPAY ==
[2021-09-11 00:23] VITALS: BP 190/74; PULSE 65; RESP 16; TEMP 36.2; BMI 22.1
[2021-09-11 08:42] VITALS: BP 179/61; PULSE 78; RESP 20; TEMP 36.9; BMI 22.1
--- NOTE | 2021-09-11 11:10 | PN.PCM_ITS ---
History of Present Illness Date of Service: 09/11/21 Chief Complaint: Nonhealing hidradenitis ulcer left inguinal, perineal, and base of scrotum. History of Wound: Surgery 03/22/20 - 1. Surgical preparation left inguinal area with excision hidradenitis (315 cm2 total wound). 2. Surgical preparation pe rineal area with excision hidradenitis (315 cm2 total wound). 3. Surgical preparation base left scrotum with incision and drainage and excision hidradenitis (315 cm2 total wound). Operative culture from 03/22/20 - Enterococcus faecalis and Streptococcus group F, Anaerobic cocci and Prevotella bivia. He was treated with Linezolid and Flagyl and has completed them. Ultrasound of his his left lower extremity ordered and done 04/15/2020. It showed there was no evidence of left lower extremity deep vein thrombosis. Valves are competent and compressible. He will wear Tubigrip for compression. Instructed him to keep legs elevated when sitting. Instructed him to avoid standing for long periods of time. He saw Dr. Kasey live had an angioplasty of some of his vessels in his legs last week. He states that his PCP ran some blood work and states he has Lupus. He went to the ED on 05/29/20 for fevers. They cultured his left groin ulcer and it showed Ecoli, Klebsiella pneumoniae, Serratia marcenscens, Streptococcus constellatus, Staphylococcus peudintermedia. He continued the Levaquin and Flagyl and has completed them. Patient admitted to the hospital for increased redness and swelling of his left groin and buttocks on 09/27/20. Patient was started on IV Vancomycin, Levaquin and Flagyl by ID. Surgery 09/29/20 - 1. Surgical preparation left perianal area with excision hidr adenitis abscess (144 cm2). 2. Surgical preparation left posterior thigh with incision and drainage and excisional debridement hidradenitis abscess (96 cm2). Operative cultures from 09/29/20 positive for Streptococcus constellatus, Corynebacterium striatum, Anaerobic cocci, and Prevotella species. Pathology of left perianal and left posterior thigh abscess showed pieces of skin with underlying tisse with acute and chronic inflammation, granulation tissue reaction and abscess formation. 10/01/20 - Laparoscopic sigmoid colostomy placed by Dr. Osorio due to the complicated perineal wound secondary to hidradenitis suppurativa status post excision. Transferred TCU on 10/03/20. On Doxycycline and Cefdinir while in TCU. Discharged home on 10/28/20. 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 2.4 and 1.2 cm fluid collections along the medial subcutaneous tissues of the right buttock suggestive of localized abscesses. He saw Dr. Osorio who placed his colostomy, and he said this is all related to his hidradenitis and that Dr. Smith is able to keep treating him. He does suggest doing daily Epsom sitz baths to help with the drainage of the hidradenitis abscesses. Wound care - Wash daily with soap and water. Still encouraging daily Sitz baths with Epsom salt. Dry well. Keep the areas of hydradenitis and dried to prevent excoriation of the surrounding skin. Today he denies fever. His appetite has been ok. Encouraged protein supplementation. Progress of Wound: His left abimbola anal tunnel is closed/healed today. He continues to have drainage from his hydradenitis, especially on his right side. He should continue to keep this area dry to prevent maceration of the surrounding skin. Objective Data Objective Data Vital Signs: Vital Signs Temp Pulse Resp BP 98.4 F 78 20 H 179/61 H 09/11/21 08:42 09/11/21 08:42 09/11/21 08:42 09/11/21 08:42 Weight: 161 lb Body Mass Index (BMI) 22.1 Charges/Coding Visit Charges Office Visits / Consults: 13304 OV L3 Est Physical Exam Const alert and oriented x3 General Appearance: cooperative HEENT normocephalic Resp normal respiratory effort Cardio regular rate Extremity normal capillary refill Extremity Narrative: +1edema of bilateral lower extremities. Skin Wound Narrative: Left perianal ulcer tunnel is closed today. He continues to have areas of hidradenitis drainage but his skin is currently not macerated. Neuro Sensorium / Orientation: awake and alert Psych Appearance: grossly normal Debridement Note Debridement Note No debridement was completed: No debridement was completed today Post-Debridement Measurements and Additional Note: Post-Debridement Measurements/Treatment BEKA - Nurse 1 - General Ulcer Assessment Start: 09/11/21 08:42 Freq: Status: Active Protocol: ROC Activity Type Activity Date Activity User E-sign Co-sign Detail Recorded Client Recorded Date Recorded By Document 09/11/21 08:42 DL [id number] 09/11/21 08:48 DL 09/11/21 08:42 WC - Today's Visit Information Type of service Follow-up Visit (Physician/FABRICATION DEPARTMENT SUPERVISOR ) Arrival Mode Ambulatory Transfer Assistance None Patient Identification Verified (Name & Yes ) Patient Requires Transmission-Based No Precautions Finger Stick Blood Sugar(mg/dl) (if not checked indicated): Blood Sugar Stated by Patient Height and Weight Body Mass Index (BMI) 22.1 BMI Classification Normal Vital Signs Temperature (97.8 F-99.1 F) 98.4 F Temperature Source Temporal Pulse Rate (60-100) 78 Pulse Location Monitor Respiratory Rate (12-18) 20 H Respiratory rate source Observation Blood Pressure (90/60-120/80) 179/61 H Blood Pressure Mean (mm Hg) 100 Source Monitor History Since Last Visit- (Skip if this is Patient's initial visit) Have you changed medications since your No last visit? Any new allergies or adverse reactions No Had a fall/change in ADL's that may No increase risk of falls Signs or symptoms of abuse and/or No neglect since last visit Has dressing in place as prescribed Yes Has compression in place as prescribed N/A Has offloadiing in place as prescribed N/A Experienced any changes in pain level or No management Pain Scale: 0-10 Numeric Is Patient Pain Free? Yes [facility] Nurse 1 - General Ulcer Measurement Start: 09/11/21 08:42 Freq: Status: Active Protocol: Activity Type Activity Date Activity User E-sign Co-sign Detail Recorded Client Recorded Date Recorded By Document 09/11/21 08:42 DL [id number] 09/11/21 08:48 DL 09/11/21 08:42 Wound Center Nurse 1 #3 Perianal ulcer -Current Size (cm) - Length 0.1 -Current Size (cm) - Width 0.1 -Current Size (cm) - Depth 0.1 -Total Square Cm 0.01 -Photo Taken No -Exudate Amt None Present -Wound Margin Flat & Intact -Granulation Amt Large (67-100%) -Granulation Quality [place] -Necrosis Amt None Present (0 %) -Structure Exposed N/A -Texture (Abimbola-wound Skin Appearance) Scarring -Moisture (Abimbola-wound Skin Appearance) No Abnormality -Color (Abimbola-wound Skin Appearance) No Abnormality -Ulcer Cleansing Wound Cleanser -Foul Odor after Cleansing No -Anesthetic Used 5% Lidocaine Gel - Nurse 2 - General Ulcer CM Notes Start: 09/11/21 08:42 Freq: Status: Active Protocol: Activity Type Activity Date Activity User E-sign Co-sign Detail Recorded Client Recorded Date Recorded By Document 09/11/21 09:26 [id number] 09/11/21 09:29 09/11/21 09:26 Wound Center Nurse 2 -Correct Patient No -Correct Side, Site, Position No -Correct Procedure No -Procedure Performed No -Post Debridement (cm) - Length 0 -Post Debridement (cm) - Width 0 -Post Debridement (cm) - Depth 0 -Total Square (Post) (cm) 0 -Area of Debridement (cm) - Length 0 -Area of Debridement (cm) - Width 0 -Total Square (Area) (cm) 0 -Wound/Ulcer Outcome Healed- Epithelialized Pain Scale: 0-10 Numeric Is Patient Pain Free? Yes - Nurse 3 - General Ulcer D/C NN Start: 09/11/21 08:42 Freq: Status: Active Protocol: Activity Type Activity Date Activity User E-sign Co-sign Detail Recorded Client Recorded Date Recorded By Document 09/11/21 09:29 [id number] 09/11/21 09:29 09/11/21 09:29 Is Patient Pain Free? Yes - Visit Discharge Discharge Condition Stable Ambulatory Status Ambulatory Transportation Private Auto Medication Reconcilliation completed & Yes provided to patient/care provider Clinical Summary of Care Provided Yes Assessment/Plan Assessment/Plan (1) Ulcer of perianal area with fat layer exposed: CODE(S): L98.492 - Non-pressure chronic ulcer of skin of other sites with fat layer exposed (2) Chronic ulcer of buttock: CODE(S): L98.419 - Non-pressure chronic ulcer of buttock with unspecified severity (3) Hydradenitis: CODE(S): L73.2 - Hidradenitis suppurativa (4) Diabetes mellitus type 2, uncontrolled, with complications: CODE(S): E11.8 - Type 2 diabetes mellitus with unspecified complications; E11.65 - Type 2 diabetes mellitus with hyperglycemia (5) Diabetes mellitus: CODE(S): E11.9 - Type 2 diabetes mellitus without complications QUALIFIERS: Diabetes mellitus type: type 2 Diabetes mellitus penitentiary insulin use: without penitentiary use Diabetes mellitus complication status: with circulatory complication Diabetes mellitus complication detail: with other circulatory complications Qualified Code(s): E11.59 - Type 2 diabetes mellitus with other circulatory complications (6) Tobacco dependence syndrome: CODE(S): F17.200 - Nicotine dependence, unspecified, uncomplicated PLAN: Plan The left ischial/posterior thigh ulcer remains healed. The left perianal ulcer with a tunnel is healed today. Wound care - Continue to wash the area with soap and water daily. Continue daily Sitz baths to help with the areas of hidradenitis drainage/irritation daily. Keep the areas of hidradenitis dry with placing gauze or something to absorb the drainage to prevent maceration of the surrounding skin. Apply lotion to the left posterior thigh/ischial healed area to help soften the scar tissue. Prealbumin 10.8 on 10/01/20. HgA1c on 05/26/21 10.6. Changed his medications to Trijardy xr. Encouraged increased protein intake and low carbohydrates. Encouraged patient to stop smoking as it may have deleterious effects on wound healing. Discussed with them about referring them to another plastic surgeon for evaluation of his hidradenitis, but the patient and his are declining that option right now. Follow up on an as needed basis.
== END 2021-09-11 14:59 | disposition home or self-care (01) ==
LOC: WC 08:28
PROVIDERS: Referring Provider Nurse Practitioner Family; Visit Provider Nurse Practitioner Family
DX: L73.2 Hidradenitis suppurativa (principal); M32.9 Systemic lupus erythematosus, unspecified; E11.59 Type 2 diabetes mellitus with other circulatory complications; F17.200 Nicotine dependence, unspecified, uncomplicated
CPT/HCPCS: 99213; G0463

== ENCOUNTER 2021-11-23 13:36 | Observation (INO) | payer OTHER, SELFPAY ==
[2021-11-23] VITALS (12 sets, daily range): BP systolic 153–191; BP diastolic 59–94; PULSE 69–81; RESP 16–18; TEMP 36.6–37.1; O2SAT 94–100; BMI 23.1; BMI 23.0
--- NOTE | 2021-11-23 08:45 | HP.PCM_ITS ---
History and Physical Date of Admission: 11/23/21 HISTORY OF PRESENT ILLNESS 56 year old man presents with extensive infected, draining, hidradenitis in his right inguinal area, right perineal area, and right perianal area.? Since his office visit, there has been some purulent drainage noted on the right scrotum with associated pain. He has had the left side done over two procedures, the latest being on September 29, 2020 where he underwent surgical preparation left perianal area with excision hidradenitis abscess (144 cm2) and surgical preparation left posterior thigh with incision and drainage and excisional debridement hidradenitis abscess (96 cm2).? He was aggressively treated with IV antibiotics and aggressive wound care.? As of now, the right side is getting worse.? There is drainage and pain both anteriorly and posteriorly. ? He had resistant Staph during the prior surgeries.? His last MRI Pelvis was done in October,.? Will repeat MRI Pelvis at time of surgery.? At the beginning, I told the patient that we would proceed with serial excisions.? The left side is stable at this time, most of it already healed.? With increasing pain and drainage, he is ready for additional surgery on the right side.? His HgbA1c from 11/06/21 was 8.1.? Today he denies fever.? He has persistent drainage from these chronically infected areas of hidradenitis. PAST MEDICAL HISTORY Abscess of buttock, left Abscess of left thigh Acute blood loss anemia Anemia of chronic disease Back pain due to injury Colostomy in place Complicated open wound of left thigh COPD (chronic obstructive pulmonary disease) Coronary artery disease Current use of insulin Diabetes mellitus type 2, uncontrolled, with complications Heart disease Hidradenitis suppurativa of anus History of stress test Hydradenitis Hyperlipidemia associated with type 2 diabetes mellitus Hypertension Lupus (systemic lupus erythematosus) Malnutrition Myocardial infarct Open wound of left buttock with complication Open wound of scrotum Pain in the groin Skin ulcer of scrotum Sleep apnea Smoker Ulcer of left groin with fat layer exposed Ulcer of perineum with fat layer exposed PAST SURGICAL HISTORY coronary artery stent placement incision and drainage removal of cyst tonsillectomy and adenoidectomy CABG hernia repair ALLERGIES Penicillins Sulfa bupropion [From Wellbutrin] MEDICATIONS oxycodone docusate sodium tramadol pantoprazole ondansetron HCl sucralfate 1 gram tablet (Carafate) hydroxychloroquine amlodipine clopidogrel empagliflozin lisinopril FAMILY HISTORY Aunt - Lung disease, lung cancer Father - Heart disease, Hypertension, high cholesterol, Diabetes Mother - Diabetes Daughter - Epilepsy SOCIAL HISTORY Smoking Status:? Current every day smoker tobacco type: cigarettes counseling given:? provider counseling alcohol intake:? never substance use type:? does not use REVIEW OF SYSTEMS General - Denies fever and weight loss.? Has fatigue. Eyes - Denies cataracts and glaucoma. ENT - Denies nasal congestion and sore throat.? Has chronic sinus problems. Endocrine - Denies excessive thirst and urination. Skin - Denies suspicious lesions and skin cancer.? Has multiple areas of suppurative hidradenitis abscesses involving right inguinal area, perineal area, right scrotal area, and right perianal area. Musculoskeletal - Has joint pain and joint stiffness.? Denies weakness of muscles and joints, back pain, and arthritis. Neuro - Denies headaches.? Has lightheadedness. Cardiovascular - Denies chest pain and shortness of breath with exertion.? Has fatigue and lightheadedness. Psych - Denies anxiety and depression. Respiratory - Denies chronic cough and shortness of breath.? Patient is a smoker. Gastrointestinal - Denies nausea, vomiting and constipation.? Has diarrhea. Hematologic - Denies abnormal bruising and bleeding.? Has anemia. Genitourinary - Denies hematuria and urinary frequency. PHYSICAL EXAMINATION General - Alert and Oriented. HEENT - PERRL. EOMI.? Throat is clear. Neck - Supple and nontender.? No cervical adenopathy. Lungs - Clear to auscultation. Heart - Regular rate and rhythm. Abdomen - Soft and nondistended.? Has healing hidradenitis ulcer left inguinal area.? Has extensive hidradenitis with some induration, redness, purulent drainage, and tenderness in his right inguinal area with extension into the perineal area.? Rectal - On right perianal area is an area of extensive hidradenitis with induration, redness, purulent drainage, and tenderness.? ? Approaches the anal opening. Genitals - On the right scrotal area is an area of hidradenitis with induration, redness, purulent drainage, and tenderness. Extremities - FROM. No axillary adenopathy.? Radial pulses are palpable.? Hard to assess inguinal adenopathy with the surrounding induration.? Dorsalis pedis pulses are palpable. Neuro - CN II-XII grossly intact. Psych - Normal mood and affect. ASSESSMENT 1.? Right inguinal suppurative hidradenitis abscess. 2. Right scrotal suppurative hidradenitis abscess. 3.? Right perineal suppurative hidradenitis abscess. 4.? Right perianal hidradenitis. 5. Diabetes mellitus. 6.? Anemia of chronic disease. 7. Smoker. PLAN Continue wound care at the [facility].? After surgery, will place him on Dakin's dressing changes. Will check an MRI or CT Pelvis at the time of surgery. When I started with his hidradenitis excision back in March,, he knew that additional surgeries will be necessary to treat the multiple areas of hidradenitis.?? Thus far we had two major ope rations, the latest one in September,. Recommend surgical preparation of his right inguinal area with extension to right scrotum, and? perineal area, and right perianal areas with incision and drainage and excisional debridement hidradenitis abscess. Surgery will be done under general anesthesia with a surgical observation overnight stay in the hospital. Will leave the wound open and begin postoperative wound care with Dakin's dressing changes.? Due to the proximity to the anal opening, a diverting colostomy was placed in September,. His HgbA1c is 8.1.? If elective skin grafting were needed in the future, his HgbA1c needs to be less than 8. ? At the time of surgery, will send tissue to Pathology for analysis to rule out carcinoma and to Microbiology for culture.? A positive culture will necessitate antibiotic therapy. Anticipate increased metabolic demands from the infection.? Will check a Prealbumin and encourage nutritional supplementation with protein to help the healing process. Patient was informed of the risks and complications of the procedure including alternatives to surgery.? These were discussed with the patient personally.? Patient voices understanding and wishes to proceed. Encouraged patient to stop smoking as it may have deleterious effects on wound healing. After discharge, will followup at the [facility].
[2021-11-23] MEDS: Lactated Ringers 1,000 ML 15 ML IV ×2 (09:47→12:42)
[2021-11-23] MEDS: Vancomycin IV 1,000 MG/200 ML BAG 200 MG IV (09:50)
[2021-11-23 10:15] LABS: Bedside Glucose 125 mg/dL (74-106)
--- NOTE | 2021-11-23 10:30 | HID_PTH ---
PATIENT: SVEN DUONG LOC: [facility] U#:[id number] AGE/SX: 56/M ROOM: NH310 RE11/23/[address]: Dr. Cortez Smith MD : [id number] BED: 1 DIS: 11/25/2021 SPEC #: [id number] RECD: 11/23/21 14:32 STATUS: NIELS HOUSTONGuero #: [id number] DARRELL: 11/23/21 10:[address]: Cortez Smith DEPT: SURGICAL PATHOLOGY RECD BY: Gabbi Sánchez ENTERED: 11/24/21 07:55 SP TYPE: Hidradenit OTHR DR: Adina Bhat, DEVONTE Tissues: Inguinal region, NOS Procedures: Surgery Specimen Level III HEADER OPERATION: Surgical preparation inguinal area and perineal area PRE-OP DIAGNOSIS: Right inguinal hidradenitis, perineal hidradenitis, right perianal hidradenitis TISSUE SUBMITTED: Hidradenitis right inguinal, perineal and scrotal area MICROSCOPIC DIAGNOSIS Skin and soft tissue, right inguinal, perineal and scrotal region, excisions: Consistent with hidradenitis with associated acute and chronic inflammation and granulation. MELO:chrissie 11/27/2021 MICROSCOPIC DESCRIPTION Slides are reviewed. GROSS DESCRIPTION Received in fixative is one container labeled with the patient's name and designated hidradenitis right inguinal, perineal and scrotal area. The specimen consists of two piece of skin with underlying tissue measuring 14 x 7 cm and up to 2.5 cm in thickness and 7 x 3 cm and up to 2 cm in thickness. Sections do not reveal any mass lesion. Tomato Paste Maker sections are submitted in four cassettes. / PAPA:chrissie 11/24/2021 TC:2 CPT: 01223
[2021-11-23] MEDS: levoFLOXacin IV 500 MG/100 ML BAG 100 MG IV (10:51)
[2021-11-23] MEDS: metroNIDAZOLE 500 MG/100 ML BAG 100 MG IV ×2 (11:01→19:40)
[2021-11-23] MEDS: Lidocaine 1%/Epi 1:200 (30ml) 30 ML AMPUL (11:10)
--- NOTE | 2021-11-23 12:29 | PCM.OPRPT ---
Problems Associated Problem List Diagnoses (1) Abscess of right groin: (2) Abscess of scrotal wall: (3) Abscess, perineum: (4) Suppurative hidradenitis: (5) Diabetes type 2, uncontrolled: (6) Anemia of chronic disease: (7) Smoker: (8) Non-healing open wound of right groin: (9) Open wound of buttock with complication: (10) Open wound of scrotum with complication: (11) Hemoglobin A1c greater than 8.0 percent: Report of Operation Date of Procedure: 11/23/21 Pre-Operative Diagnosis: 1.? Right inguinal suppurative hidradenitis abscess. 2.? Right scrotal suppurative hidradenitis abscess. 3. Right perineal suppurative hidradenitis abscess. 4.? Diabetes mellitus. 5.? Anemia of chronic disease. 6. Smoker. Post-Operative Diagnosis: 1.? Right inguinal suppurative hidradenitis abscess. 2.? Right scrotal suppurative hidradenitis abscess. 3. Right perineal suppurative hidradenitis abscess. 4. Open surgical suppurative hidradenitis abscess wound right inguinal area. 5. Open surgical suppurative hidradenitis abscess wound right scrotal area. 6. Open surgical suppurative hidradenitis abscess wound right perineal area. 7.? Diabetes mellitus. 8.? Anemia of chronic disease. 9. Smoker. Surgery/Procedure Performed:: 1. Surgical preparation right inguinal area with excision suppurative hidradenitis abscess (112 cm2, and 192 cm2 total). 2. Surgical preparation right scrotum with incision and drainage and excision suppurative hidradenitis abscess (50 cm2, and 192 cm2 total). 3. Surgical preparation right perineal area with excision suppurative hidradenitis abscess (30 cm2, and 192 cm2 total). Description of Surgical Findings:: 56 year old man presents with extensive infected, draining, hidradenitis in his right inguinal area, right perineal area, and right perianal area.? Since his office visit, there has been some purulent drainage noted on the right scrotum with associated pain. He has had the left side done over two procedures, the latest being on September 29, 2020 where he underwent surgical preparation left perianal area with excision hidradenitis abscess (144 cm2) and surgical preparation left posterior thigh with incision and drainage and excisional debridement hidradenitis abscess (96 cm2).? He was aggressively treated with IV antibiotics and aggressive wound care.? As of now, the right side is getting worse.? There is drainage and pain both anteriorly and posteriorly. ? He had resistant Staph during the prior surgeries.? His last MRI Pelvis was done in October,.? Will repeat MRI Pelvis at time of surgery.? At the beginning, I told the patient that we would proceed with serial excisions.? The left side is stable at this time, most of it already healed.? With increasing pain and drainage, he is ready for additional surgery on the right side.? His HgbA1c from 11/06/21 was 8.1.? Today he denies fever.? He has persistent drainage from these chronically infected areas of hidradenitis. Patient was informed of the risks and complications of the procedure including alternatives to surgery. These were discussed with the patient personally. Patient voices understanding and wishes to proceed. Encouraged patient to stop smoking as it may have deleterious effects on wound healing. Size of wound right inguinal, scrotal, and perineal areas - 16 x 12 x 2 cm. Right inguinal component - 16 x 7 cm. Right scrotal component - 10 x 5 cm. Right perineal component - 6 x 5 cm. Surgeon: Cortez Smith endoscopy tech: Niall Chilel Type of Anesthesia: General Anesthesiologist: Liam Amado Specimen's removed: 1. Suppurative hidradenitis abscess right inguinal, scrotal, and perineal areas to Pathology and Microbiology. 2. MRSA Wound DNA by PCR. Drains: None. Estimated Blood Loss (mL): 250. Description of Procedure: Patient was taken to OR in supine position and was placed under general anesthesia.? The right inguinal, scrotal, and perineal areas were prepped and draped in the usual fashion.? SCD's were placed for DVT prophylaxis.? Perioperative antibiotics were given intravenously.? A lucas catheter was placed.? Using xylocaine with epinephrine, the right inguinal, scrotal, and perineal areas were infiltrated to help with postoperative pain relief.? After waiting 5 minutes for the anesthetic to take effect,? I proceeded with excision of extensive hidradenitis with purulent drainage and induration extending from the right inguinal area extending onto the right scrotum and the right perineal area. Extensive scarring was seen in the subcutaneous tissue and fat necrosis was present.? Excision was carried down to the underlying muscular fascia.?On the right scrotum, excision was carried down through Dartos fascia to the external spermatic fascia. The spermatic cord was seen and preserved. The testicle was palpable but not exposed. A lot of pus was seen during the procedure. Hemostasis was obtained with electrocautery.? The wound was irrigated with saline.? There was more hidradenitis present in his right perianal area that will need excision in the future depending on how well this current wound heals.? He would be in the prone position for that surgery. The size of the large suppurative hidradenitis abscess wound involving the right inguinal area, right scrotum, and right perineal areas is 16 x 12 x 2 cm or 192 cm2.? Within the large wound, the inguinal component was 112 cm2 (16 x 7 cm), the right scrotal component was 50 cm2 (10 x 5 cm), and the right perineal component was 30 cm2 (6 x 5 cm). The wound was packed with Mepitel nonadherent dressing followed by Kerlix gauze and Betadine followed by dry Kerlix gauze and ABD pads compression dressing followed by meshed underwear.? Tissue that was excised was sent to Pathology for analysis to rule out carcinoma and to Microbiology for culture. A positive culture will necessitate antibiotic therapy. Also sent an MRSA Wound DNA by PCR. Patient tolerated the procedure well and was sent to PACU in satisfactory condition.? Patient will be sent upstairs for continued postop care. Will begin Dakin's dressing changes tomorrow.? Won't be able to maintain a VAC seal because of the surrounding infection that is still present. He will discharged home when he is tolerating po analgesia.? After discharge, he will followup at the [facility].? If there is a plateau in the healing process, can then proceed with delayed closure with skin grafting. Grafts/Implants Used: None. Procedure Start Time: 11:01 Procedure Stop Time: 12:23 Complications None. Admit VTE Documentation VTE Present on Admission: No VTE Mechan Device Prophylaxis: SCD's VTE Pharm Prophylaxis ordered?: Yes Addendum Addendum: Surgery Charges CPT - 16023 ICD-10 - L02.14, L73.2, S31.103A, E11.65, R73.09, D63.8, F17.200 [id number] L02.15, L73.2, S31.809A, E11.65, R73.09, D63.8, F17.200 [id number] N49.2, L73.2, S31.30xA, E11.65, R73.09, D63.8, F17.200 22427 S31.30xA, N49.2, L73.2, E11.65, R73.09, D63.8, F17.200
[2021-11-23 13:11] LABS: Bedside Glucose 134 mg/dL (74-106)
--- NOTE | 2021-11-23 14:15 | CPS ---
Pt declined Incentive Spirometry. RN in room and aware.
--- NOTE | 2021-11-23 14:28 | CPS ---
In pt's H&P, it says sleep apnea, pt denies, doesn't wear a PAP machine at home.
--- NOTE | 2021-11-23 14:28 | NURSING ---
1400 flagnathan not on unit for pt administration
[2021-11-23 15:21] LABS: M R Staph aureus DNA By PCR Negative (Negative); Probe Check PASS; Specimen Processing Control PASS; Staph aureus DNA By PCR NEGATIVE (Negative)
[2021-11-23] MEDS: Pantoprazole Sodium 40 MG Tablet PO (15:34)
[2021-11-23] MEDS: Lisinopril 40 MG Tablet PO (15:34)
[2021-11-23] MEDS: amLODIPine 10 MG Tablet PO (15:34)
[2021-11-23] MEDS: Sucralfate 1 GM Tablet PO ×2 (15:34→21:02)
[2021-11-23] MEDS: HYDROmorphone 1 MG/ML Syringe IV (15:35)
[2021-11-23 15:50] LABS: Anion Gap 3 (5-15); BUN 6 mg/dL (7-18); BUN/Creat Ratio 4.9 RATIO (10-20); Calcium,Total 8.5 mg/dL (8.5-10.1); Chloride 111 mmol/L (98-107); Creatinine, Serum 1.22 mg/dL (0.70-1.30); EST Glomerular Filtration Rate 65 mL/min (>60); Est Glom Filt Rate - Afr Amer 78 mL/min (>60); Estimated Creatinine Clearance 63.85 ml/min; Glucose 117 mg/dL (74-106); Potassium 3.4 mmol/L (3.5-5.1); Sodium Level 141 mmol/L (136-145)
[2021-11-23 17:20] LABS: Bedside Glucose 113 mg/dL (74-106)
[2021-11-23] MEDS: Vancomycin IV 500 MG/100 ML BAG 100 MG IV (21:02)
[2021-11-23] MEDS: Hydroxychloroquine 200 MG Tablet 100 MG PO (21:25)
[2021-11-24] VITALS (12 sets, daily range): BP systolic 153–183; BP diastolic 62–78; PULSE 68–94; RESP 16–18; TEMP 36.4–37.6; O2SAT 94–100
[2021-11-24] MEDS: metroNIDAZOLE 500 MG/100 ML BAG 100 MG IV ×3 (02:09→19:59)
[2021-11-24 06:17] LABS: Absolute Lymphocyte Count 1.31 X10^3/uL (0.83-4.51); Absolute Neutrophil Count 9.6 X10^3/uL (2.0-7.7); Basophil# 0.06 X10^3/uL; Basophil% 0.5 % (0-1); Eosinophil# 0.07 X10^3/uL; Eosinophils% 0.6 % (0-5); Hematocrit 24.3 % (40-54); Hemoglobin 7.1 g/dL (13.0-16.5); Lymphocyte # 1.31 X10^3/ul (0.83-4.51); Lymphocyte % 11.3 % (19-41); Mean Corp Hgb Conc 29.2 g/dL (32-36); Mean Corpuscular Hgb 22.5 pg (27.0-32.0); Mean Corpuscular Volume 77.1 fL (80-94); Mean Platelet Vol. 9.1 fl (6.2-12.0); Monocyte# 0.48 X10^3/uL; Monocyte% 4.1 % (0-10); NRBC Flagged by Analyzer 0 % (0-5); Neutrophil # 9.64 X10^3/uL (2.7-7.7); Neutrophil % 83.2 % (47-70); Platelet Count 346 K/mm3 (150-450); RBC Distribution Width CV 15.1 % (11.6-14.6); RBC Distribution Width SD 41.7 fl (35.1-43.9); Red Blood Count 3.15 M/mm3 (4.6-6.2); White Blood Count 11.6 K/mm3 (4.4-11.0)
[2021-11-24 07:09] LABS: Anion Gap 8 (5-15); BUN 8 mg/dL (7-18); BUN/Creat Ratio 5.2 RATIO (10-20); Calcium,Total 7.8 mg/dL (8.5-10.1); Chloride 108 mmol/L (98-107); Creatinine, Serum 1.55 mg/dL (0.70-1.30); EST Glomerular Filtration Rate 49 mL/min (>60); Est Glom Filt Rate - Afr Amer 59 mL/min (>60); Estimated Creatinine Clearance 50.26 ml/min; Glucose 155 mg/dL (74-106); Potassium 3.3 mmol/L (3.5-5.1); Sodium Level 140 mmol/L (136-145)
[2021-11-24] MEDS: amLODIPine 10 MG Tablet PO (09:41)
[2021-11-24] MEDS: Enoxaparin 40 MG/0.4 ML Syringe SC (09:41)
[2021-11-24] MEDS: Pantoprazole Sodium 40 MG Tablet PO (09:41)
[2021-11-24] MEDS: levoFLOXacin IV 500 MG/100 ML BAG 100 MG IV (09:41)
[2021-11-24] MEDS: Lisinopril 40 MG Tablet PO (09:41)
[2021-11-24] MEDS: Meloxicam 15 MG Tablet PO (09:42)
[2021-11-24] MEDS: Hydroxychloroquine 200 MG Tablet 100 MG PO ×2 (09:42→20:54)
[2021-11-24] MEDS: Vancomycin IV 500 MG/100 ML BAG 100 MG IV (11:10)
[2021-11-24] MEDS: HYDROmorphone 2 MG TABLET PO (11:36)
[2021-11-24] MEDS: DAKIN'S SOL HALF STRENGTH (=0.25%) 1 APPLIC TOPICAL (11:38)
--- NOTE | 2021-11-24 12:20 | MRI_ITS ---
STUDY: MR PELVIS WITHOUT CONTRAST REASON FOR EXAM: Male, 56 years old. Large chronic abscess of the left buttock and thigh. Abscess of right coronary scrotum and perianal region. Recently had large area of tissue removed from the right groin. Suppurative hidradenitis with abscess. TECHNIQUE : Standardized fat and water weighted pulse sequences were obtained in all 3 orthogonal planes. COMPARISON: CT of the abdomen and pelvis, 12/28/2020. MRI of the pelvis, 10/27/2020. FINDINGS: Normal urinary bladder. Normal visualized small intestine. Normal visualized colon. There is an ostomy in the left lower quadrant. Normal prostate. There is no pelvic fluid. There is no free air within the abdominal cavity There is mild lateral pelvic lymphadenopathy. Normal visualized pelvic arteries. Normal osseous structures. There is left inguinal lymphadenopathy. There is subcutaneous inflammation over the anterior right hip extending downward towards the inguinal region. This surrounds the inguinal canal and spermatic cord into the scrotum which demonstrates marked soft tissue inflammation. Inflammation extends around the penis and also along the peritoneal surface just to or surrounding the rectum. In the right buttock at the level of the anus there are multiple small fluid density masses thought to represent abscess. Increased appear to be interconnected. Fluid density also extends upward into the soft tissues of the right aspect of the upper sacrum. There is diffuse inflammatory change in the subcutaneous tissues of the lower right buttock as well as evidence of inflammation involving the right adductor musculature. Minimal soft tissue stranding is seen in the left buttock. MRI/Pelvis (Routine) IMPRESSION: 1. Diffuse inflammatory changes in the right inguinal region extending into the scrotum and penis perineal region and posteriorly into the right buttock where there are associated small abscess collections. Inflammation also involves the musculature of the right hip and upper thigh. 2. Surgical defect in the right inguinal region. 3. Cul-de-sac and inguinal lymphadenopathy. Electronically Signed: Serafin Mobley DO at 16:26 EDT ,
--- NOTE | 2021-11-24 12:26 | PCM.PN.SRG ---
Subjective Subjective Postop #1 Patient sitting in bed. States his pain is controlled. Objective Data Objective Data Vital Signs: Vital Signs Temp Pulse Resp BP Pulse Ox O2 Del Method 99.7 F H 87 18 183/72 H 94 Room Air 11/24/21 11:54 11/24/21 11:54 11/24/21 11:54 11/24/21 11:54 11/24/21 11:54 11/24/21 11:54 Oxygen Delivery Method Room Air Weight: 151 lb 12.789 oz Body Mass Index (BMI) 23.0 Intake & Output: Intake and Output for Last 24 Hours 11/22/21 11/23/21 11/24/21 23:59 23:59 23:59 Intake Total 2083 / 2083 951.75 / 951.75 Output Total 1340 / 2340 2200 / 2200 Balance 743 / -257 -1248.25 / -1248.25 Lab / Micro Data Attestation: I reviewed the patient's lab results. Result Diagrams: 11/24/21 05:17 11/24/21 05:17 Labs: Laboratory Results - last 24 hr 11/23/21 11:40: S.aureus Protein A PCR NEGATIVE, MRSA (PCR) Negative 11/23/21 12:50: POC Glucose 134 H 11/23/21 15:15: Sodium 141, Potassium 3.4 L, Chloride 111 H, Carbon Dioxide 27.0, Anion Gap 3 L, BUN 6 L, Creatinine 1.22, Estim Creat Clear Calc 63.85, Est GFR (MDRD) Af Amer 78, Est GFR (MDRD) Non-Af 65, BUN/Creatinine Ratio 4.9 L, Glucose 117 H, Calcium 8.5 11/23/21 16:59: POC Glucose 113 H 11/24/21 05:17: WBC 11.6 H, RBC 3.15 L, Hgb 7.1 L, Hct 24.3 L, MCV 77.1 L, MCH 22.5 L, MCHC 29.2 L, RDW Std Deviation 41.7, RDW Coeff of Dana 15.1 H, Plt Count 346, MPV 9.1, Immature Gran % (Auto) 0.300, Neut % (Auto) 83.2 H, Lymph % (Auto) 11.3 L, [place] % (Auto) 4.1, Eos % (Auto) 0.6, Baso % (Auto) 0.5, Absolute Neuts (auto) 9.6 H, Absolute Lymphs (auto) 1.31, Nucleated RBC % 0 11/24/21 05:17: Sodium 140, Potassium 3.3 L, Chloride 108 H, Carbon Dioxide 24.0, Anion Gap 8, BUN 8, Creatinine 1.55 H, Estim Creat Clear Calc 50.26, Est GFR (MDRD) Af Amer 59 L, Est GFR (MDRD) Non-Af 49 L, BUN/Creatinine Ratio 5.2 L, Glucose 155 H, Calcium 7.8 L Micro: Microbiology 11/23/21 11:40 Tissue - Other Gram Stain - Final 11/23/21 11:40 Tissue - Other Wound Culture - Preliminary Beta streptococcus Physical Exam Const alert and oriented x3 General Appearance: cooperative and comfortable HEENT normocephalic Resp normal respiratory effort Effort and Inspection: able to speak in complete sentences Cardio regular rate GI soft to palpation Bladder / Kidney Exam: catheter in place Testes: testicular swelling Extremity normal capillary refill Skin Wound Narrative: Right groin, scrotal, and perineal wound is stable with no active bleeding. Operative dressing removed and new dressing with Dakin's moistened gauze placed and topped with ABD. Secured with tape and wearing mesh underwear. Neuro oriented x3 Psych mental status grossly normal, thought process normal and cooperative Assessment & Plan Assessment/Plan (1) Open wound of scrotum with complication: (2) Non-healing open wound of right groin: (3) Abscess, perineum: (4) Open wound of buttock with complication: (5) Abscess of scrotal wall: (6) Abscess of right groin: (7) Smoker: (8) Suppurative hidradenitis: (9) Tobacco dependence syndrome: (10) Acute postoperative anemia due to expected blood loss: (11) Hypokalemia: (12) Hemoglobin A1c greater than 8.0 percent: PLAN: Plan Patient resting in bed, states pain is well controlled. Preliminary operative cultures show Beta Streptococcus. Creatinine elevated to 1.55 today. Stop the IV Vancomycin. Continue Levofloxacin and Metronidazole. Will start Ceftriaxone. Hgb 7.1. He has a history of anemia of chronic disease and has postop anemia due to expected blood loss. Will transfuse 2 units of PRBC's today. Will recheck h/h in the am. K+ 3.3. Will start on Kdur 20 mEq daily. MRI ordered due to the severity of his hidradenitis infection. Right groin, scrotal, and perineal wound is stable with no active bleeding. Operative dressing removed and new dressing with Dakin's moistened gauze placed and topped with ABD. Secured with tape and wearing mesh underwear. Murillo catheter discontinued. Now that wound is stable, please encourage patient to ambulate.. Will plan discharge for tomorrow. [facility] on Saturday11/27/21 at 0830.
--- NOTE | 2021-11-24 13:14 | WOUNDNOTE ---
wound photo: right groin
--- NOTE | 2021-11-24 13:16 | WOUNDNOTE ---
wound photo: left gluteal fold
[2021-11-24] MEDS: Potassium Chloride Oral Tablet 20 MEQ PO (13:28)
--- NOTE | 2021-11-24 13:40 | CASEMGMT ---
SOLANGE NATARAJAN NOTE: RN CM to room to talk w/pt. Introduced self and role. Pt states he lives w/his in [facility] [place] w/5 steps to enter. Pt states he does okay w/stairs. Pt states he is mostly independent. able to assist as needed. He states is able to do dressing changes, as she has done them in the past after his prior surgeries. Pt states he has all DME needed. He would like [facility]. A list of [facility] providers including quality and resource use data and consistent with the patient?s preferred geographic region, medical needs, and insurance network were provided from the [facility] Guide. Pt chooses [facility], stating that is who he has had in the past. Referral to [facility] sent via [employer]. TC to Kalin @ [facility] re: referral. He states they are able to accept pt. He was made aware pt has appt [facility] on Saturday so SOC not needed until Saturday. Script for supplies received from Dr Smith and provided to pt. Script also sent to [facility] via [employer]. Pt denies having further discharge planning needs. Pt instructed to ask for RN CM if any additional needs arise. Jackelyn WILLIS RN, CM
[2021-11-24] MEDS: 0.9% Saline Lock 10 ML Syringe IV (19:59)
[2021-11-24] MEDS: Sucralfate 1 GM Tablet PO (20:54)
[2021-11-25 00:05] VITALS: BP 178/71; PULSE 69; RESP 20; TEMP 37.3; O2SAT 100
[2021-11-25] MEDS: Acetaminophen 325 MG Tablet 650 MG PO (00:09)
[2021-11-25 01:08] VITALS: BP 180/67; PULSE 65; RESP 20; TEMP 37.4; O2SAT 94
[2021-11-25] MEDS: metroNIDAZOLE 500 MG/100 ML BAG 100 MG IV ×2 (03:03→11:37)
[2021-11-25 03:47] VITALS: BP 165/81; PULSE 60; RESP 20; TEMP 36.8; O2SAT 97
[2021-11-25 06:28] LABS: Hematocrit 27.9 % (40-54); Hemoglobin 8.7 g/dL (13.0-16.5); Mean Corp Hgb Conc 31.2 g/dL (32-36); Mean Corpuscular Hgb 24.8 pg (27.0-32.0); Mean Corpuscular Volume 79.5 fL (80-94); Mean Platelet Vol. 9.2 fl (6.2-12.0); Platelet Count 309 K/mm3 (150-450); RBC Distribution Width CV 15.9 % (11.6-14.6); RBC Distribution Width SD 45.7 fl (35.1-43.9); Red Blood Count 3.51 M/mm3 (4.6-6.2); White Blood Count 8.5 K/mm3 (4.4-11.0)
[2021-11-25] MEDS: 0.9% Saline Lock 10 ML Syringe IV (06:41)
[2021-11-25 07:01] LABS: Anion Gap 4 (5-15); BUN 11 mg/dL (7-18); BUN/Creat Ratio 6.4 RATIO (10-20); Chloride 110 mmol/L (98-107); Creatinine, Serum 1.73 mg/dL (0.70-1.30); EST Glomerular Filtration Rate 43 mL/min (>60); Est Glom Filt Rate - Afr Amer 52 mL/min (>60); Estimated Creatinine Clearance 45.03 ml/min; Glucose 118 mg/dL (74-106); Potassium 3.8 mmol/L (3.5-5.1); Sodium Level 141 mmol/L (136-145)
[2021-11-25] MEDS: Potassium Chloride Oral Tablet 20 MEQ PO (08:54)
[2021-11-25] MEDS: Ceftriaxone 1 GM/50 ML BAG IV (08:54)
[2021-11-25 09:13] VITALS: BP 180/79; PULSE 68; RESP 17; TEMP 36.5; O2SAT 98
[2021-11-25] MEDS: levoFLOXacin IV 500 MG/100 ML BAG 100 MG IV (10:15)
[2021-11-25] MEDS: Lisinopril 40 MG Tablet PO (10:21)
[2021-11-25] MEDS: Enoxaparin 40 MG/0.4 ML Syringe SC (10:21)
[2021-11-25] MEDS: Meloxicam 15 MG Tablet PO (10:23)
[2021-11-25] MEDS: amLODIPine 10 MG Tablet PO (10:23)
[2021-11-25] MEDS: Hydroxychloroquine 200 MG Tablet 100 MG PO (10:23)
[2021-11-25] MEDS: Pantoprazole Sodium 40 MG Tablet PO (10:24)
[2021-11-25] MEDS: DAKIN'S SOL HALF STRENGTH (=0.25%) 1 APPLIC TOPICAL (10:25)
[2021-11-25 11:00] VITALS: BP 170/71; PULSE 67; RESP 17; TEMP 36.6; O2SAT 98
[2021-11-25] MEDS: HYDROmorphone 2 MG TABLET PO (14:05)
--- NOTE | 2021-11-25 17:20 | NURSING ---
DR LESLEY ESPINOZA. HAS BEEN OUT TO DESK 2X IN LAST 5 MINUTES FOR DC INSTRUCTIONS
--- NOTE | 2021-11-25 17:38 | PCM.DC ---
Discharge Instructions Diet Discharge Diet: Carb Control Diet and - (encourage nutritional supplementation with protein to help the healing process.) Activity Discharge Activity: No Restrictions May shower in (days): 1 May resume sexual activity in: No Restrictions Weight Bearing Status: Weight bearing as tolerated Keep extremity elevated above heart level: Right Leg Dressing / Incision Call your doctor if your incision/area has: Continuous Slow Oozing, Sudden Increased Bleeding, Increased Pain/ Swelling, Increased Redness and Foul Smelling Discharge Call your doctor if you observe: Fever of 101 or Higher, Coldness, Increased Pain, Shortness of breath, Chest pain, Calf discomfort and Uncontrolled pain Change Dressing in: 1 day (Dakin's dressing changes daily.) Cleanse incision/area with: Soap & Water (at the time of the dressing change. Use a portable shower head to help cleanse the area with pulsations from the shower at time of dressing change.) Follow Up Care Please Follow Up With: gerson When: saturday11/27/21 at [facility] at 830 am. Test Results: Test results from this visit will be discussed in further detail at your follow-up appointment, if applicable. Will repeat the BMP on Saturday to monitor the Creatinine. It was 1.73. Will also discuss with his PCP regarding his high blood pressure. Patient states she knows. He is on two medications for his blood pressure. Pending Tests Upon Discharge: Will order a BMP to be done on Saturday11/27/21. Discharge Plan Admission Admit Date/Time: 11/23/21 14:15 Primary Reason for Your Visit: excision suppurative hidradenitis abscess Attending Provider: Cortez Smith Primary Care Provider: Adina Bhat NP Discharge Orders/Prescriptions Prescriptions: New cefdinir 300 mg capsule 300 mg PO BID Qty: 42 1RF hydromorphone [Dilaudid] 2 mg tablet 2 mg PO 4X/DAY PRN PRN (Reason: pain (scale score 7-10)) 7 Days Qty: 28 0RF No Action tramadol 50 mg tablet 100 mg PO TID PRN (Reason: pain (scale score 7-10)) 30 Days Qty: 180 5RF ondansetron HCl 8 mg tablet 8 mg PO Q8H PRN (Reason: nausea and vomiting) Qty: 30 12RF hydroxychloroquine 100 mg tablet 100 mg PO BID amlodipine 10 mg tablet 10 mg PO DAILY Qty: 30 12RF lisinopril 40 mg tablet 40 mg PO DAILY Qty: 30 12RF oxycodone 5 mg Tablet 10 mg PO Q4H PRN PRN (Reason: Pain Score 4-5) 3 Days Qty: 12 0RF meloxicam [Mobic] 15 mg Tablet 15 mg PO DAILY Trijardy XR 25-5-1,000 mg Tablet, Ir - Er, Biphasic 24hr 1 tab PO DAILY docusate sodium 100 mg capsule 100 mg PO BID PRN (Reason: Constipation) sucralfate [Carafate] 1 gram tablet 1 g PO QACHS clopidogrel 75 mg tablet 75 mg PO DAILY pantoprazole 40 mg tablet,delayed release (DR/EC) 40 mg PO DAILY Other Ambulatory Orders: Basic Metabolic Profile (BMP) (Routine) Timeframe: 2 Days Facility: [facility] - Location: Laboratory Ordered By: Dr. Cortez Smith Referrals / Follow Up: Adina Bhat LUNCH TRUCK OPERATOR, LUNCH TRUCK OPERATOR-C [Primary Care Provider] - Disposition Disposition (needs filled in before D/C Order can be placed): Home Health Service
[2021-11-25 18:00] VITALS: BP 167/70; PULSE 63; RESP 16; TEMP 36.7; O2SAT 97
--- NOTE | 2021-11-25 18:01 | DS.PCM_ITS ---
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 Routine Comment: Reason for Consult:: right inguinal wound Reason For Visit: EXCISION HIDRADENITIS Diagnosis Discharge Diagnosis (1) Suppurative hidradenitis: Status: Chronic Code(s): L73.2 - Hidradenitis suppurativa (2) Abscess of right groin: Status: Chronic Code(s): L02.214 - Cutaneous abscess of groin (3) Abscess of scrotal wall: Status: Chronic Code(s): N49.2 - Inflammatory disorders of scrotum (4) Abscess, perineum: Status: Chronic Code(s): L02.215 - Cutaneous abscess of perineum (5) Non-healing open wound of right groin: Status: Acute Code(s): S31.103A - Unspecified open wound of abdominal wall, right lower quadrant without penetration into peritoneal cavity, initial encounter (6) Open wound of scrotum with complication: Status: Acute Code(s): S31.30XA - Unspecified open wound of scrotum and testes, initial encounter (7) Open wound of buttock with complication: Status: Acute Code(s): S31.809A - Unspecified open wound of unspecified buttock, initial encounter (8) Diabetes type 2, uncontrolled: Status: Chronic Code(s): E11.65 - Type 2 diabetes mellitus with hyperglycemia (9) Hemoglobin A1c greater than 8.0 percent: Status: Chronic Code(s): R73.09 - Other abnormal glucose (10) Acute postoperative anemia due to expected blood loss: Status: Acute Code(s): D62 - Acute posthemorrhagic anemia Plan: Hgb at discharge was 8.7 after PRBC. He states he takes a supplement with iron. Will followup with PCP. (11) Anemia of chronic disease: Status: Chronic Code(s): D63.8 - Anemia in other chronic diseases classified elsewhere Plan: Hgb at discharge was 8.7 after PRBC. He states he takes a supplement with iron. Will followup with PCP. (12) Hypokalemia: Status: Acute Code(s): E87.6 - Hypokalemia Plan: Encourage eating bananas and drinking orange juice. Will followup with PCP. (13) Elevated serum creatinine: Status: Acute Code(s): R79.89 - Other specified abnormal findings of blood chemistry Plan: Will recheck a BMP when he goes to his [facility] appointment on Saturday11/27/21. His Creatinine was 1.73. Will followup with his PCP. (14) Hypertension: Status: Chronic Code(s): I10 - Essential (primary) hypertension Qualifiers: Hypertension type: primary hypertension Qualified Code(s): I10 - Essential (primary) hypertension Plan: At the [facility]ound Center, will discuss with PCP regarding his chronic hypertension. He is on Amlodipine and Lisinopril. His BP ranged from 153-191/59-94. At discharge his BP was 167/70. (15) Smoker: Status: Acute Code(s): F17.200 - Nicotine dependence, unspecified, uncomplicated Plan: Encouraged patient to stop smoking as it may have deleterious effects on wound healing. Medications at Discharge Home Medications oxycodone 5 mg tablet 10 mg PO Q4H PRN PRN Pain Score 4-5 3 days #12 tabs 10/03/20 tramadol 50 mg tablet 100 mg PO TID PRN pain (scale score 7-10) 30 days #180 tabs 03/28/21 ondansetron HCl 8 mg tablet 8 mg PO Q8H PRN nausea and vomiting #30 tabs 06/29/21 hydroxychloroquine 100 mg tablet 100 mg PO BID lupus 10/05/21 amlodipine 10 mg tablet 10 mg PO DAILY BP #30 tabs 11/06/21 lisinopril 40 mg tablet 40 mg PO DAILY Blood pressure #30 tabs 11/06/21 docusate sodium 100 mg capsule 100 mg PO BID PRN Constipation 11/17/21 empagliflozin 25 mg-linagliptin 5 mg-metformin ER 1,000 mg tablet,24hr (Trijardy XR) 1 tab PO DAILY diabetes 11/17/21 meloxicam 15 mg tablet 15 mg PO DAILY inflamation 11/17/21 clopidogrel 75 mg tablet 75 mg PO DAILY blood thinner 11/23/21 pantoprazole 40 mg tablet,delayed release 40 mg PO DAILY GERD 11/23/21 sucralfate 1 gram tablet (Carafate) 1 g PO QACHS GERD 10/13/22 cefdinir 300 mg capsule 300 mg PO BID #42 caps 11/25/21 hydromorphone 2 mg tablet (Dilaudid) 2 mg PO 4X/DAY PRN PRN pain (scale score 7- 10) 7 days #28 tabs 11/25/21 Hospital Course Operations - (11/23/21 - 1. Surgical preparation right inguinal area with excision suppurative hidradenitis abscess (112 cm2, and 192 cm2 total). 2. Surgical preparation right scrotum with incision and drainage and excision suppurative hidradenitis abscess (50 cm2, and 192 cm2 total). 3. Surgical preparation r) Procedures Blood transfusion (2 units PRBC) Summary of Care Provided Minutes Spent on Discharge: 40 Hospital Course: 56 year old man presents with extensive infected, draining, hidradenitis in his right inguinal area, right perineal area, and right perianal area.? Since his office visit, there has been some purulent drainage noted on the right scrotum with associated pain.? He has had the left side done over two procedures, the latest being on September 29, 2020 where he underwent surgical preparation left perianal area with excision hidradenitis abscess (144 cm2) and surgical preparation left posterior thigh with incision and drainage and excisional debridement hidradenitis abscess (96 cm2).? He was aggressively treated with IV antibiotics and aggressive wound care.? As of now, the right side is getting worse.? There is drainage and pain both anteriorly and posteriorly. ? He had resistant Staph during the prior surgeries.? His last MRI Pelvis was done in October,.? Will repeat MRI Pelvis during this admission.? At the beginning, I told the patient that we would proceed with serial excisions.? The left side is stable at this time, most of it already healed.? With increasing pain and drainage, he is ready for additional surgery on the right side.? His HgbA1c from 11/06/21 was 8.1.? Today he denies fever.? He has persistent drainage from these chronically infected areas of hidradenitis. He states the right groin area is more painful and problematic than the right perianal area. He was taken to the operating room on 11/23/21 where he underwent surgical preparation right inguinal area with excision suppurative hidradenitis abscess (112 cm2, and 192 cm2 total) and surgical preparation right scrotum with incision and drainage and excision suppurative hidradenitis abscess (50 cm2, and 192 cm2 total) and surgical preparation right perineal area with excision suppurative hidradenitis abscess (30 cm2, and 192 cm2 total). He tolerated the procedure well. Dakin's dressing changes were started. He was treated perioperatively with Vancomycin, Flagyl, and Levaquin due to previous cultures. The first postop day, the wound was stable with no active bleeding, and he tolerated the Dakin's dressing change reasonably well. He had an MRI Pelvis which showed diffuse inflammatory changes in the right inguinal region extending into the scrotum and penis perineal region and posteriorly into the right buttock where there are associated small abscess collections.? Inflammation also involves the musculature of the right hip and upper thigh. Surgical defect in the right inguinal region. Cul-de-sac and inguinal lymphadenopathy. ? 1.) His Hgb was 7.1. He was given 2 units PRBC. The next day on 11/25/21, the Hgb was 8.7. Preoperatively the Hgb was 8.8. He stated he had a multivitamin with iron supplementation at home. He will followup with his PCP. 2.) His Potassium the first postop day was 3.3. He was given Potassium supplementation. The next day on 11/25/21, the K was 3.8. Encouraged him to eat bananas and drink orange juice. He will followup with his PCP. 3.) His Creatinine the first postop day was 1.55. His Vancomycin was stopped. Ceftriaxone was added. Preoperatively the Creatinine was 1.22. The next day on 11/25/21, the Creatinine was 1.73. Encouraged hydration. Will recheck the BMP on Saturday11/27/21 at the [facility]. Will discuss with his PCP at the [facility]ound Center. 4.) Patient has chronic hypertension. He is on Amlodipine and Lisinopril. During the hospital stay his BP ranged from 153-191/59-94. Upon discharge, his BP was 167/70. Patient has appointment with his PCP in early December. Will discuss with his PCP at the [facility] Center. 5.) Smoker - Encouraged patient to stop smoking as it may have deleterious effects on wound healing. 6.) Diabetes and Hgb A1c 8.1. For further elective surgery, his HgbA1c needs to be less than 8. He will followup with his PCP. His operative culture at the time of discharge showed Beta Streptococcus. Will discharge him home on Cefdinir for 21 days and a refill. Also wrote a script for Dilaudid for pain (28 tabs). His wound at discharge was stable with no active bleeding noted. Patient tolerated the Dakin's dressing change. His feels comfortable with the Dakin's dressing changes. They can cleanse the wound with soap and water using shower pulsations at the time of the Dakin's dressing change. Home Health is available to them as needed from his previous surgeries. His condition upon discharge was good. Followup at the [facility] Center on 11/27/21 at 830am. Physical Exam Narrative PHYSICAL EXAMINATION General - Alert and Oriented. HEENT - PERRL. EOMI.? Throat is clear. Neck - Supple and nontender.? No cervical adenopathy. Lungs - Clear to auscultation. Heart - Regular rate and rhythm. Abdomen - Soft and nondistended.? Has healing hidradenitis ulcer left inguinal area.? Has extensive open surgical suppurative hidradenitis abscess wound in the right inguinal area. This open surgical suppurative hidradenitis abscess wound extends into the perineal area.? Rectal - On right perianal area is an area of extensive hidradenitis with induration, redness, purulent drainage, and tenderness.? ? Approaches the anal opening. Genitals - On the right scrotal area is an extensive open surgical suppurative hidradenitis abscess wound. Spermatic cord is palpable but not exposed. Melissa ticle is palpable but not exposed.? Extremities - FROM. No axillary adenopathy.? Radial pulses are palpable.? Hard to assess inguinal adenopathy with the surrounding induration.? Dorsalis pedis pulses are palpable. Neuro - CN II-XII grossly intact. Psych - Normal mood and affect. Weight / BMI Weight Weight: 151 lb 12.789 oz Body Mass Index (BMI) 23.0 ABG / Lab / Microbiology Data Attestation: I reviewed the patient's lab results. Result Diagrams: 11/25/21 05:40 11/25/21 05:40 Laboratory: Laboratory Results - last 24 hr 11/24/21 12:50: Blood Type A POSITIVE, Antibody Screen NEGATIVE, Crossmatch See Detail 11/25/21 05:40: WBC 8.5, RBC 3.51 L, Hgb 8.7 L, Hct 27.9 L, MCV 79.5 L, MCH 24.8 L, MCHC 31.2 L D, RDW Std Deviation 45.7 H, RDW Coeff of Dana 15.9 H, Plt Count 309, MPV 9.2 11/25/21 05:40: Sodium 141, Potassium 3.8, Chloride 110 H, Carbon Dioxide 27.0, Anion Gap 4 L, BUN 11, Creatinine 1.73 H, Estim Creat Clear Calc 45.03, Est GFR (MDRD) Af Amer 52 L, Est GFR (MDRD) Non-Af 43 L, BUN/Creatinine Ratio 6.4 L, Glucose 118 H, Calcium 8.0 L Microbiology: Microbiology 11/23/21 11:40 Tissue - Other Gram Stain - Final 11/23/21 11:40 Tissue - Other Wound Culture - Preliminary Beta streptococcus Gram positive marcus Radiography Diagnostic Testing: MRI/Pelvis (Routine) IMPRESSION: 1.? Diffuse inflammatory changes in the right inguinal region extending into the scrotum and penis perineal region and posteriorly into the right buttock where there are associated small abscess collections.? Inflammation also involves the musculature of the right hip and upper thigh. 2.? Surgical defect in the right inguinal region. 3.? Cul-de-sac and inguinal lymphadenopathy. ? Electronically Signed: Serafin Mobley DO at 16:26 EDT Reading Location ID and State: [address] [place] [address] Tel [phone], Service support? , D/C Instructions Discharge Diet: Carb Control Diet and - (encourage nutritional supplementation with protein to help the healing process.) May shower in (days): 1 May resume sexual activity in: No Restrictions Weight Bearing Status: Weight bearing as tolerated Keep extremity elevated above heart level: Right Leg Call your doctor if your incision/area has: Continuous Slow Oozing, Sudden Increased Bleeding, Increased Pain/ Swelling, Increased Redness and Foul Smelling Discharge Call your doctor if you observe: Fever of 101 or Higher, Coldness, Increased Pain, Shortness of breath, Chest pain, Calf discomfort and Uncontrolled pain Cleanse incision/area with: Soap & Water (at the time of the dressing change. Use a portable shower head to help cleanse the area with pulsations from the shower at time of dressing change.) Pending Tests Upon Discharge: Will order a BMP to be done on Saturday11/27/21. Please Follow Up With: DEVONTE Ann When: saturday11/27/21 at the [facility] at 830 am. Meaningful Use Info Meaningful Use Diagnoses (Choose all that apply): None applicable Discharge Plan Admission Admit Date/Time: 11/23/21 14:15 Primary Reason for Your Visit: excision suppurative hidradenitis abscess Attending Provider: Cortez Smith Primary Care Provider: Adina Bhat NP Discharge Orders/Prescriptions Prescriptions: New cefdinir 300 mg capsule 300 mg PO BID Qty: 42 1RF hydromorphone [Dilaudid] 2 mg tablet 2 mg PO 4X/DAY PRN PRN (Reason: pain (scale score 7-10)) 7 Days Qty: 28 0RF No Action tramadol 50 mg tablet 100 mg PO TID PRN (Reason: pain (scale score 7-10)) 30 Days Qty: 180 5RF ondansetron HCl 8 mg tablet 8 mg PO Q8H PRN (Reason: nausea and vomiting) Qty: 30 12RF hydroxychloroquine 100 mg tablet 100 mg PO BID amlodipine 10 mg tablet 10 mg PO DAILY Qty: 30 12RF lisinopril 40 mg tablet 40 mg PO DAILY Qty: 30 12RF oxycodone 5 mg Tablet 10 mg PO Q4H PRN PRN (Reason: Pain Score 4-5) 3 Days Qty: 12 0RF meloxicam [Mobic] 15 mg Tablet 15 mg PO DAILY Trijardy XR 25-5-1,000 mg Tablet, Ir - Er, Biphasic 24hr 1 tab PO DAILY docusate sodium 100 mg capsule 100 mg PO BID PRN (Reason: Constipation) sucralfate [Carafate] 1 gram tablet 1 g PO QACHS clopidogrel 75 mg tablet 75 mg PO DAILY pantoprazole 40 mg tablet,delayed release (DR/EC) 40 mg PO DAILY Other Ambulatory Orders: Basic Metabolic Profile (BMP) (Routine) Timeframe: 2 Days Facility: [facility] - Location: Laboratory Ordered By: Dr. Cortez Smith Referrals / Follow Up: Cortez Smith MD [Med Staff - Active Staff] - (Antonella Azul NP-C will see the patient at the [facility] Center on Saturday11/27/21 at 830 am.) Adina Bhat NP, MARLEN-C [Primary Care Provider] - (At the [facility]ound Center, will discuss with her the patient's hypertension (on Amlodipine and Lisinopril), increased Creatinine of 1.73, and hypokalemia of 3.8 after supplementation.) Disposition Disposition (needs filled in before D/C Order can be placed): Home Health Service Charges/Coding Addendum Addendum: This visit is part of his surgical aftercare. CPT - 21549
== END 2021-11-25 18:14 | disposition home health service (06) ==
LOC: MS3 11-24 09:36
PROVIDERS: Admitting Provider Surgery; PCP Nurse Practitioner; Referring Provider Surgery; Visit Provider Surgery
PROC: (CPT 11463; principal; 2021-11-23 10:15)
DX: L73.2 Hidradenitis suppurativa (principal); Z93.3 Colostomy status; J44.9 Chronic obstructive pulmonary disease, unspecified; E11.65 Type 2 diabetes mellitus with hyperglycemia; I10 Essential (primary) hypertension; L02.214 Cutaneous abscess of groin; Z79.84 Long term (current) use of oral hypoglycemic drugs; D63.8 Anemia in other chronic diseases classified elsewhere; I25.10 Atherosclerotic heart disease of native coronary artery without angina pectoris; E87.6 Hypokalemia; L02.215 Cutaneous abscess of perineum; Z79.899 Other long term (current) drug therapy; Z79.02 Long term (current) use of antithrombotics/antiplatelets; G47.30 Sleep apnea, unspecified; Z95.1 Presence of aortocoronary bypass graft; F17.210 Nicotine dependence, cigarettes, uncomplicated; L49 Exfoliation due to erythematous conditions according to extent of body surface involved
CPT/HCPCS: 11463; 15004; 55100; 11470; 36415; 36430; 72195; 80048; 82962; 85025; 85027; 86644; 86850; 86900; 86901; 86920; 86922; 87070; 87075; 87077; 87102; 87186; 87205; 87206; 87640; 88304; 96365; 96366; 96367; 96372; 96375; 99218; 99251; 99406; J7040; J7120; P9016; A4216; G0378; G0463; J2405

== ENCOUNTER 2021-12-11 09:15 | Outpatient (RCR) | payer OTHER, SELFPAY ==
[2021-11-27 08:38] VITALS: BP 196/82; PULSE 88; RESP 18; TEMP 36.3
--- NOTE | 2021-11-27 10:58 | PCM.WC.HP ---
History of Present Illness Date of Service: 11/27/21 Chief Complaint: Excision of hidradenitis of right inguinal, scrotal and perineal area History of Wound: 56 year old male who is known to me. He has a history significant for hidradenitis, DM type II, HTN, CAD, arterial insufficiency, and smoker. He had surgery on 11/23/21 for 1. Surgical preparation right inguinal area with excision suppurative hidradenitis abscess (112 cm2, and 192 cm2 total). 2. Surgical preparation right scrotum with incision and drainage and excision suppurative hidradenitis abscess (50 cm2, and 192 cm2 total). 3. Surgical preparation right perineal area with excision suppurative hidradenitis abscess (30 cm2, and 192 cm2 total). Operative wound cultures from 11/23/21 positive for Streptococcus constellatus and Corynebacterium striatum. He was started on Cefdinir 300mg BID. Creatinine repeat today, 11/27/21, down to 1.62 from 1.73 on 11/25/21. Wound care - Dakin's 0.25% moistened gauze covered by ABD/super absorber daily and prn to right groin. Left ischial ulcer reopened, place aquacel-ag covered with gauze daily. Today he denies fevers, chills, nausea and vomiting. He states that he has a good appetite. Other history: Surgery 03/22/20 - 1. Surgical preparation left inguinal area with excision hidradenitis (315 cm2 total wound). 2. Surgical preparation perineal area with excision hidradenitis (315 cm2 total wound). 3. Surgical preparation base left scrotum with incision and drainage and excision hidradenitis (315 cm2 total wound). Operative culture from 03/22/20 - Enterococcus faecalis and Streptococcus group F, Anaerobic cocci and Prevotella bivia. He was treated with Linezolid and Flagyl and has completed them. He saw Dr. Kasey live had an angioplasty of some of his vessels in his legs. Patient admitted to the hospital for increased redness and swelling of his left groin and buttocks on 09/27/20. Patient was started on IV Vancomycin, Levaquin and Flagyl by ID. Surgery 09/29/20 - 1. Surgical preparation left perianal area with excision hidradenitis abscess (144 cm2). 2. Surgical preparation left posterior thigh with incision and drainage and excisional debridement hidradenitis abscess (96 cm2). Operative cultures from 09/29/20 positive for Streptococcus constellatus, Corynebacterium striatum, Anaerobic cocci, and Prevotella species. Pathology of left perianal and left posterior thigh abscess showed pieces of skin with underlying tisse with acute and chronic inflammation, granulation tissue reaction and abscess formation. 10/01/20 - Laparoscopic sigmoid colostomy placed by Dr. Osorio due to the complicated perineal wound secondary to hidradenitis suppurativa status post excision. Progress of Wound: Right groin is stable. No active bleeding. Left ischial ulcer is stable. FORMERLY [facility], [facility] Medical History (Reviewed 12/01/21 @ 16:40 by Antonella Azul COSMETOLOGY INSTRUCTOR, COSMETOLOGY INSTRUCTOR-C) Abscess of buttock, left Abscess of left thigh Abscess of right groin Abscess of scrotal wall Abscess, perineum Acute blood loss anemia Alcohol use Anemia Anemia of chronic disease Back pain Back pain due to injury Colostomy in place Complete edentulism, class III Complicated open wound of left thigh COPD (chronic obstructive pulmonary disease) Coronary artery disease Diabetes Diabetes mellitus type 2, uncontrolled, with complications Diabetes type 2, uncontrolled Dietary restriction Gastric reflux Hemoglobin A1c greater than 8.0 percent Hidradenitis suppurativa of anus History of edema History of pain when walking History of stress test History of ulceration Hydradenitis Hydradenitis Hyperlipidemia associated with type 2 diabetes mellitus Hypertension Lupus (systemic lupus erythematosus) Malnutrition Non-healing open wound of right groin Open wound of buttock with complication Open wound of left buttock with complication Open wound of scrotum Open wound of scrotum with complication Pain in the groin Shortness of breath on exertion Skin ulcer of scrotum Smoker Suppurative hidradenitis Ulcer of left groin with fat layer exposed Ulcer of perineum with fat layer exposed Home Medications oxycodone 5 mg tablet 10 mg PO Q4H PRN PRN Pain Score 4-5 3 days #12 tabs 10/03/20 [Rx Last Taken Unknown] tramadol 50 mg tablet 100 mg PO TID PRN pain (scale score 7-10) 30 days #180 tabs 03/28/21 [Rx Last Taken Unknown] ondansetron HCl 8 mg tablet 8 mg PO Q8H PRN nausea and vomiting #30 tabs 06/29/21 [Rx Last Taken Unknown] hydroxychloroquine 100 mg tablet 100 mg PO BID lupus 10/05/21 [History Last Taken 11/22/21 16:00] amlodipine 10 mg tablet 10 mg PO DAILY BP #30 tabs 11/06/21 [Rx Last Taken Unknown] lisinopril 40 mg tablet 40 mg PO DAILY Blood pressure #30 tabs 11/06/21 [Rx Last Taken Unknown] docusate sodium 100 mg capsule 100 mg PO BID PRN Constipation 11/17/21 [History Last Taken Unknown] empagliflozin 25 mg-linagliptin 5 mg-metformin ER 1,000 mg tablet,24hr (Trijardy XR) 1 tab PO DAILY diabetes 11/17/21 [History Last Taken Unknown] meloxicam 15 mg tablet 15 mg PO DAILY inflamation 11/17/21 [History Last Taken Unknown] clopidogrel 75 mg tablet 75 mg PO DAILY blood thinner 11/23/21 [History Last Taken 11/17/21] pantoprazole 40 mg tablet,delayed release 40 mg PO DAILY GERD 11/23/21 [History Last Taken Unknown] sucralfate 1 gram tablet (Carafate) 1 g PO QACHS GERD 11/23/21 [History Last Taken Unknown] cefdinir 300 mg capsule 300 mg PO BID #42 caps 11/25/21 [Rx Last Taken Unknown] hydromorphone 2 mg tablet (Dilaudid) 2 mg PO 4X/DAY PRN PRN pain (scale score 7-10) 7 days #28 tabs 11/25/21 [Rx Last Taken Unknown] clonidine HCl 0.1 mg tablet 0.1 mg PO BID #60 tabs 11/28/21 [Rx Last Taken Unknown] doxycycline hyclate 100 mg capsule 100 mg PO DAILY 11/28/21 [History Last Taken Unknown] minocycline 100 mg capsule 100 mg PO DAILY 11/28/21 [History Last Taken Unknown] promethazine 12.5 mg tablet 12.5 mg PO TID 11/28/21 [History Last Taken Unknown] Allergy/AdvReac Type Severity Reaction Status Date / Time Penicillins Allergy Unknown Verified 11/27/21 09:02 Sulfa (Sulfonamide Allergy Unknown Verified 11/27/21 09:02 Antibiotics) bupropion [From Wellbutrin] AdvReac Severe change in Verified 11/27/21 09:02 personality ,meanness and smoked more Family History (Reviewed 12/01/21 @ 16:40 by Antonella Azul COSMETOLOGY INSTRUCTOR, COSMETOLOGY INSTRUCTOR-C) Aunt Lung disease lung cancer Father Heart disease Hypertension Family history of high cholesterol Diabetes Mother Diabetes Daughter Epilepsy Surgical History (Reviewed 12/01/21 @ 16:40 by Antonella Azul COSMETOLOGY INSTRUCTOR, COSMETOLOGY INSTRUCTOR-C) History of coronary artery stent placement History of incision and drainage History of removal of cyst History of tonsillectomy and adenoidectomy Hx of hernia repair Stented coronary artery Social History (Reviewed 12/01/21 @ 16:40 by Antonella Azul COSMETOLOGY INSTRUCTOR, COSMETOLOGY INSTRUCTOR-C) household members: spouse Smoking Status: Current every day smoker tobacco type: cigarettes counseling given: provider counseling alcohol intake: never substance use type: does not use additional social history: DOES NOT TAKE ASPIRIN DOES NOT TAKE IBUPROFEN ROS Constitutional Constitutional: Reports systems reviewed and no addt'l complaints, except as documented and fatigue; Denies fever(s), frequent falls or headache(s) Eyes Eyes: Reports as per HPI ENT HEENT: Reports systems reviewed and no addt'l complaints, except as documented Cardiovascular Cardiovascular: Denies chest pain or dyspnea Respiratory/Chest Respiratory/Chest: Denies cough or dyspnea Gastrointestinal Gastrointestinal: Reports systems reviewed and no addt'l complaints, except as documented Genitourinary Genitourinary: Reports penile swelling and scrotal swelling Musculoskeletal Musculoskeletal: Reports joint pain and joint stiffness Integumentary Integumentary: Reports skin ulcer Neurologic Neurologic: Denies confusion Psychiatric Psychiatric: Denies behavioral changes or change in appetite Endocrine Endocrinology: Reports as per HPI Hematologic/Lymphatic Hematologic/Lymphatic: Reports as per HPI Allergic/Immunologic Allergic/Immunologic: Reports as per HPI Vital Signs Vital Signs Vital Signs: 11/27/21 08:38 Temperature 97.3 F L Temperature Source Temporal Pulse Rate 88 Respiratory Rate 18 Blood Pressure 196/82 H Blood Pressure Mean 120 Blood Pressure Source Monitor Physical Exam Const alert and oriented x3 General Appearance: cooperative Orientation / Consciousness: awake Nutritional Appearance: underweight HEENT normocephalic Eyes General Eye: normal appearance of both eyes Neck full ROM Lymph Lymphatic: no lymphedema noted Resp normal respiratory effort, normal air movement and clear to auscultation bilaterally Effort and Inspection: able to speak in complete sentences Cardio regular rate and regular rhythm GI soft to palpation GI Narrative: Colostomy bag intact, stoma pink. Narrative: Mild penile and scrotal edema. No bruising. No issues voiding. Back/Spine normal ROM Extremity normal capillary refill Skin Wound Narrative: Right groin/scrotal and perineal wound is pink, clean, with no active bleeding. Neuro oriented x3 Psych mental status grossly normal, thought process normal and cooperative Debridement Note Debridement Note No debridement was completed: No debridement was completed today Post-Debridement Measurements and Additional Note: Post-Debridement Measurements/Treatment - Nurse 1 - General Ulcer Assessment Start: 11/27/21 08:38 Freq: Status: Active Protocol: BEKA.PADMINI Activity Type Activity Date Activity User E-sign Co-sign Detail Recorded Client Recorded Date Recorded By Document 11/27/21 08:38 DL [id number] 11/27/21 08:58 DL 11/27/21 08:38 WC - Today's Visit Information Type of service Initial Visit Arrival Mode Ambulatory Transfer Assistance None Patient Identification Verified (Name & Yes ) Patient Requires Transmission-Based No Precautions Finger Stick Blood Sugar(mg/dl) (if 141 indicated): Blood Sugar Stated by Patient Vital Signs Temperature (97.8 F-99.1 F) 97.3 F L Temperature Source Temporal Pulse Rate (60-100) 88 Pulse Location Monitor Respiratory Rate (12-18) 18 Blood Pressure (90/60-120/80) 196/82 H Blood Pressure Mean 120 Source Monitor Pain Scale: 0-10 Numeric Is Patient Pain Free? Yes Communication Assessment Preferred language Kyrgyz Able to Read Yes Able to Write Yes Communication Tools None Right Hearing Abillity Normal Left Hearing Abillity Normal Visual Assistive Devices Glasses Teaching Assessment Preferences Verbal,Written, Demonstration Barriers to Learning None Readiness To Learn Good Willingness to Engage in Self Management Med Activies Readiness to Engage in Self Management Med Activities Anxiety Level Calm Cooperation Cooperative Perception Coherent Interest in Health Problem Asks Questions Education Importance Acknowledges Need Does Patient Smoke tobacco or other Yes substances Smoking Status Current every day smoker Is Patient Diabetic Yes Functional Assessment Recent Decline in Ability to Perform Denies Any Declines Culture/Jewish/Piece Meat Trimmer Cultural/Jewish Needs that may affect No Treatment Plan Would you allow our hospital yard goods salesperson to No meet you for the purpose of spiritual/ emotional support? Piece Meat Trimmer to contact place of buddhist No Teaching: Wound Center Discharge Instructions -Person Taught Patient Smoking Cessation -Person Taught Patient surgical debridement -Person Taught Patient *Infection -Person Taught Patient Skin Care -Person Taught Patient *Home Safety (Medications/Transfers/ Personal Safety) -Person Taught Patient Dressing Your Wound -Person Taught Patient *Debridement -Person Taught Patient WC - Nurse 1 - General Ulcer Measurement Start: 11/27/21 08:38 Freq: Status: Active Protocol: Activity Type Activity Date Activity User E-sign Co-sign Detail Recorded Client Recorded Date Recorded By Document 11/27/21 08:38 DL [id number] 11/27/21 08:58 DL Edit Result 11/27/21 08:38 DL (1) [id number] 11/27/21 09:10 AK (1) #5scrotum/R Groin Cluster - Current Size (cm) - Width 18 => 15 - Total Square Cm 306 => 255 11/27/21 08:38 Wound Center Nurse 1 #6 L Ischium -Current Size (cm) - Length 1.6 -Current Size (cm) - Width 2.8 -Current Size (cm) - Depth 0.2 -Total Square Cm 4.48 -Photo Taken Yes -Exudate Amt Small -Exudate Type Serosanguineous -Wound Margin Distinct, Outline Attached -Granulation Amt Large (67-100%) -Granulation Quality [place] -Necrosis Amt None Present (0 %) -Structure Exposed N/A -Texture ([place]-wound Skin Appearance) Scarring -Moisture ([place]-wound Skin Appearance) No Abnormality -Color ([place]-wound Skin Appearance) No Abnormality -Temperature ([place]-wound Skin No Abnormality Appearance) (Pt Warm) -Tenderness on Palpation ([place]-wound No Skin Appearance) -Ulcer Cleansing Soap and Water -Foul Odor after Cleansing No -Anesthetic Used 5% Lidocaine Gel #5scrotum/R Groin Cluster -Current Size (cm) - Length 17 -Current Size (cm) - Width 15 -Current Size (cm) - Depth 3.5 -Total Square Cm 255 -Photo Taken Yes -Exudate Amt Medium -Exudate Type Serosanguineous -Wound Margin Distinct, Outline Attached -Granulation Amt Medium (34-66%) -Granulation Quality Red -Necrosis Amt Medium (34-66%) -Necrotic Tissue Type Adherent Slough -Structure Exposed N/A -Texture ([place]-wound Skin Appearance) Localized Edema ,Scarring -Moisture ([place]-wound Skin Appearance) No Abnormality -Color ([place]-wound Skin Appearance) No Abnormality -Temperature ([place]-wound Skin No Abnormality Appearance) (Pt Warm) -Tenderness on Palpation ([place]-wound No Skin Appearance) -Ulcer Cleansing Not Cleansed -Foul Odor after Cleansing No -Anesthetic Used 5% Lidocaine Gel WC - Nurse 2 - General Ulcer CM Notes Start: 11/27/21 08:38 Freq: Status: Active Protocol: Activity Type Activity Date Activity User E-sign Co-sign Detail Recorded Client Recorded Date Recorded By Document 11/27/21 09:30 LIZETTE [id number] 11/27/21 09:32 LIZETTE Edit Result 11/27/21 09:30 JF (1) [id number] 11/27/21 09:36 JF (1) #6 L Ischium - Time => 09:35 - Correct Patient No => Yes - Correct Side, Site, Position No => Yes - Correct Procedure No => Yes - Procedure Performed No => Yes - Type of Procedure => Debridement - Clinical Debridement => Subcutaneous - Tissue Removed => Subcutaneous - Post Debridement (cm) - Length => 2.8 - Post Debridement (cm) - Width => 3.3 - Post Debridement (cm) - Depth => 0.1 - Total Square (Post) (cm) => 9.24 - Area of Debridement (cm) - Length => 2.8 - Area of Debridement (cm) - Width => 3.3 - Total Square (Area) (cm) => 9.24 - Tunneling => No - Undermining/Tunneling => No - Circular Undermining => No - Ulcer Cleansing => Rinsed/Irrigated => with Saline - Foul Odor after Cleansing => No - Bioengineered Tissue => No - Bleeding Controlled with => Pressure - Treatment Response => Procedure => Tolerated Well - Offloading => No - Debridement - Subq, 1st 20sq cm => Yes 11/27/21 09:30 Wound Center Nurse 2 #6 L Ischium -Time 09:35 -Correct Patient Yes -Correct Side, Site, Position Yes -Correct Procedure Yes -Procedure Performed Yes -Type of Procedure Debridement -Clinical Debridement Subcutaneous -Tissue Removed Subcutaneous -Post Debridement (cm) - Length 2.8 -Post Debridement (cm) - Width 3.3 -Post Debridement (cm) - Depth 0.1 -Total Square (Post) (cm) 9.24 -Area of Debridement (cm) - Length 2.8 -Area of Debridement (cm) - Width 3.3 -Total Square (Area) (cm) 9.24 -Tunneling No -Undermining/Tunneling No -Circular Undermining No -Wound/Ulcer Outcome Not Healed -Ulcer Cleansing Rinsed/ Irrigated with Saline -Foul Odor after Cleansing No -Bioengineered Tissue No -Bleeding Controlled with Pressure -Treatment Response Procedure Tolerated Well -Offloading No -Debridement - Subq, 1st 20sq cm Yes #5scrotum/R Groin Cluster -Correct Patient No -Correct Side, Site, Position No -Correct Procedure No -Procedure Performed No -Wound/Ulcer Outcome Not Healed Pain Scale: 0-10 Numeric Is Patient Pain Free? Yes WC - Nurse 3 - General Ulcer D/C NN Start: 11/27/21 08:38 Freq: Status: Active Protocol: Activity Type Activity Date Activity User E-sign Co-sign Detail Recorded Client Recorded Date Recorded By Document 11/27/21 10:01 DL [id number] 11/27/21 10:02 DL 11/27/21 10:01 Wound Care Nurse 3 #6 L Ischium -Ulcer Cleansing Rinsed/ Irrigated with Saline -Foul Odor after Cleansing No -Primary Dressing Applied Aquacel AG 4x4 -Primary Dressing Covered/Secured with Dry Gauze, Secured with Tape -Aquacel AG 4x4 1 #5scrotum/R Groin Cluster -Ulcer Cleansing Soap and Water -Foul Odor after Cleansing No -Other Dressing Dakins -Primary Dressing Covered/Secured with Dry Gauze, Secured with Tape Treatment Response Procedure Tolerated Well Pain Scale: 0-10 Numeric Is Patient Pain Free? Yes WC - Visit Discharge Discharge Condition Stable Ambulatory Status Ambulatory Transportation Private [facility] Facility Type Set Painter Care Facility Orders Sent Yes Lab / Micro Data Result Diagrams: 11/27/21 10:10 Charges/Coding Procedures Integumentary [id number]: [id number] Ayla subq tissue 20 sq cm/< (left buttock ulcer) Assessment/Plan Assessment/Plan (1) Open wound of scrotum with complication: CODE(S): S31.30XA - Unspecified open wound of scrotum and testes, initial encounter (2) Open wound of buttock with complication: CODE(S): S31.809A - Unspecified open wound of unspecified buttock, initial encounter (3) Non-healing open wound of right groin: CODE(S): S31.103A - Unspecified open wound of abdominal wall, right lower quadrant without penetration into peritoneal cavity, initial encounter (4) Chronic ulcer of buttock: CODE(S): L98.419 - Non-pressure chronic ulcer of buttock with unspecified severity (5) Suppurative hidradenitis: CODE(S): L73.2 - Hidradenitis suppurativa (6) Smoker: CODE(S): F17.200 - Nicotine dependence, unspecified, uncomplicated (7) Hypertension: CODE(S): I10 - Essential (primary) hypertension QUALIFIERS: Hypertension type: primary hypertension Qualified Code(s): I10 - Essential (primary) hypertension (8) Acute postoperative anemia due to expected blood loss: CODE(S): D62 - Acute posthemorrhagic anemia (9) Diabetes type 2, uncontrolled: CODE(S): E11.65 - Type 2 diabetes mellitus with hyperglycemia (10) Hypokalemia: CODE(S): E87.6 - Hypokalemia (11) Hemoglobin A1c greater than 8.0 percent: CODE(S): R73.09 - Other abnormal glucose (12) Elevated serum creatinine: CODE(S): R79.89 - Other specified abnormal findings of blood chemistry PLAN: Plan Patient was evaluated at the wound healing center. A subcutaneous debridement was performed to the left buttock/ischial ulcer only. Operative wound cultures from 11/23/21 positive for Streptococcus constellatus and Corynebacterium striatum. He was started on Cefdinir 300mg BID. Creatinine repeat today, 11/27/21, down to 1.62 from 1.73 on 11/25/21. Also, repeat K+ 4.0. Patient may restart Plavix today. Wound care - Dakin's 0.25% moistened gauze covered by ABD/super absorber daily and prn to right groin. Left ischial ulcer reopened, place aquacel-ag covered with gauze daily. Encouraged increase protein intake and increase Vitamin C intake. Will need supplemental protein to help heal this wound. He states his pain has been well controlled. He is to complete the antibiotics that were prescribed upon discharge. Encouraged patient to stop smoking as it may have deleterious effects on wound healing. Follow up one week.
[2021-11-27 12:03] LABS: Anion Gap 8 (5-15); BUN 8 mg/dL (7-18); BUN/Creat Ratio 4.9 RATIO (10-20); Calcium,Total 9.1 mg/dL (8.5-10.1); Chloride 107 mmol/L (98-107); Creatinine, Serum 1.62 mg/dL (0.70-1.30); EST Glomerular Filtration Rate 47 mL/min (>60); Est Glom Filt Rate - Afr Amer 57 mL/min (>60); Glucose 109 mg/dL (74-106); Sodium Level 141 mmol/L (136-145)
[2021-12-04 09:22] VITALS: BP 185/65; PULSE 104; TEMP 36.4
--- NOTE | 2021-12-04 09:54 | PCM.WC.PN ---
History of Present Illness Date of Service: 12/04/21 Chief Complaint: Excision of hidradenitis of right inguinal, scrotal and perineal area History of Wound: 56 year old male who is known to me. He has a history significant for hidradenitis, DM type II, HTN, CAD, arterial insufficiency, and smoker. He had surgery on 11/23/21 for 1. Surgical preparation right inguinal area with excision suppurative hidradenitis abscess (112 cm2, and 192 cm2 total). 2. Surgical preparation right scrotum with incision and drainage and excision suppurative hidradenitis abscess (50 cm2, and 192 cm2 total). 3. Surgical preparation right perineal area with excision suppurative hidradenitis abscess (30 cm2, and 192 cm2 total). Operative wound cultures from 11/23/21 positive for Streptococcus constellatus and Corynebacterium striatum. He was started on Cefdinir 300mg BID. Creatinine repeat today, 11/27/21, down to 1.62 from 1.73 on 11/25/21. Wound care - Dakin's 0.25% moistened gauze covered by ABD/super absorber daily and prn to right groin. Left ischial ulcer reopened, place aquacel-ag covered with gauze daily. Today he denies fevers, chills, nausea and vomiting. He states that he has a good appetite. Other history: Surgery 03/22/20 - 1. Surgical preparation left inguinal area with excision hidradenitis (315 cm2 total wound). 2. Surgical preparation perineal area with excision hidradenitis (315 cm2 total wound). 3. Surgical preparation base left scrotum with incision and drainage and excision hidradenitis (315 cm2 total wound). Operative culture from 03/22/20 - Enterococcus faecalis and Streptococcus group F, Anaerobic cocci and Prevotella bivia. He was treated with Linezolid and Flagyl and has completed them. He saw Dr. Kasey live had an angioplasty of some of his vessels in his legs. Patient admitted to the hospital for increased redness and swelling of his left groin and buttocks on 09/27/20. Patient was started on IV Vancomycin, Levaquin and Flagyl by ID. Surgery 09/29/20 - 1. Surgical preparation left perianal area with excision hidradenitis abscess (144 cm2). 2. Surgical preparation left posterior thigh with incision and drainage and excisional debridement hidradenitis abscess (96 cm2). Operative cultures from 09/29/20 positive for Streptococcus constellatus, Corynebacterium striatum, Anaerobic cocci, and Prevotella species. Pathology of left perianal and left posterior thigh abscess showed pieces of skin with underlying tisse with acute and chronic inflammation, granulation tissue reaction and abscess formation. 10/01/20 - Laparoscopic sigmoid colostomy placed by Dr. Osorio due to the complicated perineal wound secondary to hidradenitis suppurativa status post excision. Progress of Wound: Right groin is stable. No active bleeding. Left ischial ulcer is slightly smaller, wound bed is pink. Patient is in obvious discomfort today. He states that he took a pain pill before coming in today but it doesn't seem to be helping. His pain is 8/10. Objective Data Objective Data Vital Signs: Vital Signs Temp Pulse Resp BP 97.6 F L 104 H 18 185/65 H 12/04/21 09:22 12/04/21 09:22 11/27/21 08:38 12/04/21 09:22 Lab / Micro Data Result Diagrams: 11/27/21 10:10 Charges/Coding Procedures Integumentary 111xxx-113xx: [id number] Ayla subq tissue 20 sq cm/< (Left ischial ulcer) Debridement Note Debridement Note Wound debrided: groin, scrotum, perineal area Laterality: Right Wound Grade/Stage: Stage IV No debridement was completed: No debridement was completed today Post-Debridement Measurements and Additional Note: Post-Debridement Measurements/Treatment - Nurse 1 - General Ulcer Assessment Start: 11/27/21 08:38 Freq: Status: Active Protocol: BEKA.PADMINI Activity Type Activity Date Activity User E-sign Co-sign Detail Recorded Client Recorded Date Recorded By Document 11/27/21 08:38 DL [id number] 11/27/21 08:58 DL Document 12/04/21 09:22 KR [id number] 12/04/21 09:30 KR 11/27/21 12/04/21 08:38 09:22 - Today's Visit Information Type of service Initial Visit Follow-up Visit (Physician/FITNESS AND WELLNESS INSTRUCTOR ) Arrival Mode Ambulatory Ambulatory Transfer Assistance None Patient Identification Verified (Name & Yes Yes ) Patient Requires Transmission-Based No Precautions Finger Stick Blood Sugar(mg/dl) (if 141 indicated): Blood Sugar Stated by Patient Vital Signs Temperature (97.8 F-99.1 F) 97.3 F L 97.6 F L Temperature Source Temporal Temporal Pulse Rate (60-100) 88 104 H Pulse Location Monitor Monitor Respiratory Rate (12-18) 18 Blood Pressure (90/60-120/80) 196/82 H 185/65 H Blood Pressure Mean (mm Hg) 120 105 Source Monitor Monitor Position Semi-Fowlers Blood Pressure Location Right Arm History Since Last Visit- (Skip if this is Patient's initial visit) Have you changed medications since your No last visit? Any new allergies or adverse reactions No Had a fall/change in ADL's that may No increase risk of falls Signs or symptoms of abuse and/or No neglect since last visit Have you been in the hospital since your No last visit? Has dressing in place as prescribed Yes Has compression in place as prescribed N/A Has offloadiing in place as prescribed N/A Experienced any changes in pain level or No management Left Footwear Regular Shoe Right Footwear Regular Shoe Pain Scale: 0-10 Numeric Is Patient Pain Free? Yes Yes Communication Assessment Preferred language Telugu Able to Read Yes Able to Write Yes Communication Tools None Right Hearing Abillity Normal Left Hearing Abillity Normal Visual Assistive Devices Glasses Teaching Assessment Preferences Verbal,Written, Demonstration Barriers to Learning None Readiness To Learn Good Willingness to Engage in Self Management Med Activies Readiness to Engage in Self Management Med Activities Anxiety Level Calm Cooperation Cooperative Perception Coherent Interest in Health Problem Asks Questions Education Importance Acknowledges Need Does Patient Smoke tobacco or other Yes substances Smoking Status Current every day smoker Is Patient Diabetic Yes Functional Assessment Recent Decline in Ability to Perform Denies Any Declines Culture/Zoroastrianism/Call Center Consultant Cultural/Zoroastrianism Needs that may affect No Treatment Plan Would you allow our hospital drivematic machine operator to No meet you for the purpose of spiritual/ emotional support? Call Center Consultant to contact place of orthodox No Teaching: Wound Center Discharge Instructions -Person Taught Patient Smoking Cessation -Person Taught Patient surgical debridement -Person Taught Patient *Infection -Person Taught Patient Skin Care -Person Taught Patient *Home Safety (Medications/Transfers/ Personal Safety) -Person Taught Patient Dressing Your Wound -Person Taught Patient *Debridement -Person Taught Patient WC - Nurse 1 - General Ulcer Measurement Start: 11/27/21 08:38 Freq: Status: Active Protocol: Activity Type Activity Date Activity User E-sign Co-sign Detail Recorded Client Recorded Date Recorded By Document 11/27/21 08:38 DL [id number] 11/27/21 08:58 DL Edit Result 11/27/21 08:38 DL (1) [id number] 11/27/21 09:10 AK Document 12/04/21 09:22 KR [id number] 12/04/21 09:30 KR (1) #5scrotum/R Groin Cluster - Current Size (cm) - Width 18 => 15 - Total Square Cm 306 => 255 11/27/21 12/04/21 08:38 09:22 Wound Center Nurse 1 #6 L Ischium -Current Size (cm) - Length 1.6 1 -Current Size (cm) - Width 2.8 2.5 -Current Size (cm) - Depth 0.2 0.1 -Total Square Cm 4.48 2.5 -Photo Taken Yes -Exudate Amt Small Medium -Exudate Type Serosanguineous Serosanguineous -Wound Margin Distinct, Distinct, Outline Outline Attached Attached -Granulation Amt Large (67-100%) Medium (34-66%) -Granulation Quality Fleming Fleming -Necrosis Amt None Present (0 Medium (34-66%) %) -Necrotic Tissue Type Adherent Slough -Structure Exposed N/A -Texture (Abimbola-wound Skin Appearance) Scarring Assessed, Scarring -Moisture (Abimbola-wound Skin Appearance) No Abnormality No Abnormality, Assessed -Color (Abimbola-wound Skin Appearance) No Abnormality No Abnormality, Assessed -Temperature (Abimbola-wound Skin No Abnormality No Abnormality Appearance) (Pt Warm) (Pt Warm) -Tenderness on Palpation (Abimbola-wound No No Skin Appearance) -Ulcer Cleansing Soap and Water Soap and Water -Foul Odor after Cleansing No -Anesthetic Used 5% Lidocaine 4% Lidocaine Gel Solution,5% Lidocaine Gel #5scrotum/R Groin Cluster -Current Size (cm) - Length 17 18 -Current Size (cm) - Width 15 12 -Current Size (cm) - Depth 3.5 0.2 -Total Square Cm 255 216 -Photo Taken Yes -Undermining/Tunneling Starts (O'clock 5 ) -Undermining/Tunneling Ends (O'clock) 6 -Maximum Distance (cm) 0.2 -Exudate Amt Medium Large -Exudate Type Serosanguineous Serosanguineous -Wound Margin Distinct, Distinct, Outline Outline Attached Attached -Granulation Amt Medium (34-66%) Large (67-100%) -Granulation Quality Red Red -Necrosis Amt Medium (34-66%) Small (1-33%) -Necrotic Tissue Type Adherent Slough Adherent Slough -Structure Exposed N/A -Texture (Abimbola-wound Skin Appearance) Localized Edema Assessed, ,Scarring Scarring -Moisture (Abimbola-wound Skin Appearance) No Abnormality No Abnormality, Assessed -Color (Abimbola-wound Skin Appearance) No Abnormality No Abnormality, Assessed -Temperature (Abimbola-wound Skin No Abnormality No Abnormality Appearance) (Pt Warm) (Pt Warm) -Tenderness on Palpation (Abimbola-wound No No Skin Appearance) -Ulcer Cleansing Not Cleansed Rinsed/ Irrigated with Saline -Foul Odor after Cleansing No No -Anesthetic Used 5% Lidocaine 4% Lidocaine Gel Solution,5% Lidocaine Gel WC - Nurse 2 - General Ulcer CM Notes Start: 11/27/21 08:38 Freq: Status: Active Protocol: Activity Type Activity Date Activity User E-sign Co-sign Detail Recorded Client Recorded Date Recorded By Document 11/27/21 09:30 [id number] 11/27/21 09:32 Edit Result 11/27/21 09:30 (1) [id number] 11/27/21 09:36 Document 12/04/21 09:39 [id number] 12/04/21 09:41 (1) #6 L Ischium - Time => 09:35 - Correct Patient No => Yes - Correct Side, Site, Position No => Yes - Correct Procedure No => Yes - Procedure Performed No => Yes - Type of Procedure => Debridement - Clinical Debridement => Subcutaneous - Tissue Removed => Subcutaneous - Post Debridement (cm) - Length => 2.8 - Post Debridement (cm) - Width => 3.3 - Post Debridement (cm) - Depth => 0.1 - Total Square (Post) (cm) => 9.24 - Area of Debridement (cm) - Length => 2.8 - Area of Debridement (cm) - Width => 3.3 - Total Square (Area) (cm) => 9.24 - Tunneling => No - Undermining/Tunneling => No - Circular Undermining => No - Ulcer Cleansing => Rinsed/Irrigated => with Saline - Foul Odor after Cleansing => No - Bioengineered Tissue => No - Bleeding Controlled with => Pressure - Treatment Response => Procedure => Tolerated Well - Offloading => No - Debridement - Subq, 1st 20sq cm => Yes 11/27/21 12/04/21 09:30 09:39 Wound Center Nurse 2 #6 L Ischium -Time 09:35 09:40 -Correct Patient Yes Yes -Correct Side, Site, Position Yes Yes -Correct Procedure Yes Yes -Procedure Performed Yes Yes -Type of Procedure Debridement Debridement -Clinical Debridement Subcutaneous Subcutaneous -Tissue Removed Subcutaneous Subcutaneous -Post Debridement (cm) - Length 2.8 2.5 -Post Debridement (cm) - Width 3.3 2.6 -Post Debridement (cm) - Depth 0.1 0.1 -Total Square (Post) (cm) 9.24 6.50 -Area of Debridement (cm) - Length 2.8 2.5 -Area of Debridement (cm) - Width 3.3 2.6 -Total Square (Area) (cm) 9.24 6.50 -Tunneling No No -Undermining/Tunneling No No -Circular Undermining No No -Wound/Ulcer Outcome Not Healed Not Healed -Ulcer Cleansing Rinsed/ Rinsed/ Irrigated with Irrigated with Saline Saline -Foul Odor after Cleansing No No -Bioengineered Tissue No No -Bleeding Controlled with Pressure Pressure -Treatment Response Procedure Procedure Tolerated Well Tolerated Well -Offloading No No -Debridement - Subq, 1st 20sq cm Yes Yes #5scrotum/R Groin Cluster -Correct Patient No No -Correct Side, Site, Position No No -Correct Procedure No No -Procedure Performed No No -Wound/Ulcer Outcome Not Healed Not Healed Pain Scale: 0-10 Numeric Is Patient Pain Free? Yes Yes WC - Nurse 3 - General Ulcer D/C NN Start: 11/27/21 08:38 Freq: Status: Active Protocol: Activity Type Activity Date Activity User E-sign Co-sign Detail Recorded Client Recorded Date Recorded By Document 11/27/21 10:01 BREANNA [id number] 11/27/21 10:02 BREANNA 11/27/21 10:01 Wound Care Nurse 3 #6 L Ischium -Ulcer Cleansing Rinsed/ Irrigated with Saline -Foul Odor after Cleansing No -Primary Dressing Applied Aquacel AG 4x4 -Primary Dressing Covered/Secured with Dry Gauze, Secured with Tape -Aquacel AG 4x4 1 #5scrotum/R Groin Cluster -Ulcer Cleansing Soap and Water -Foul Odor after Cleansing No -Other Dressing Dakins -Primary Dressing Covered/Secured with Dry Gauze, Secured with Tape Treatment Response Procedure Tolerated Well Pain Scale: 0-10 Numeric Is Patient Pain Free? Yes WC - Visit Discharge Discharge Condition Stable Ambulatory Status Ambulatory Transportation Private [facility] Facility Type Shelter Care Facility Orders Sent Yes Additional Wound Wound debrided: ischial ulcer Laterality: Left Wound Grade/Stage: Stage II Type of Debridement: Excisional debridement Depth: Down to and including healthy tissue and in the subcutaneous layer Percentage of wound debrided: 100 Instrument Used: 5mm curette Tissue Removed: Devitalized tissue and slough Severity: Fat Layer Exposed Amount of bleeding with debridement: Mild Bleeding Controlled with: Compression and gauze Patient tolerated procedure: Patient tolerated procedure well Assessment/Plan Assessment/Plan (1) Open wound of scrotum with complication: CODE(S): S31.30XA - Unspecified open wound of scrotum and testes, initial encounter (2) Open wound of buttock with complication: CODE(S): S31.809A - Unspecified open wound of unspecified buttock, initial encounter (3) Non-healing open wound of right groin: CODE(S): S31.103A - Unspecified open wound of abdominal wall, right lower quadrant without penetration into peritoneal cavity, initial encounter (4) Chronic ulcer of buttock: CODE(S): L98.419 - Non-pressure chronic ulcer of buttock with unspecified severity (5) Suppurative hidradenitis: CODE(S): L73.2 - Hidradenitis suppurativa (6) Smoker: CODE(S): F17.200 - Nicotine dependence, unspecified, uncomplicated (7) Hypertension: CODE(S): I10 - Essential (primary) hypertension QUALIFIERS: Hypertension type: primary hypertension Qualified Code(s): I10 - Essential (primary) hypertension (8) Acute postoperative anemia due to expected blood loss: CODE(S): D62 - Acute posthemorrhagic anemia (9) Diabetes type 2, uncontrolled: CODE(S): E11.65 - Type 2 diabetes mellitus with hyperglycemia (10) Hypokalemia: CODE(S): E87.6 - Hypokalemia (11) Hemoglobin A1c greater than 8.0 percent: CODE(S): R73.09 - Other abnormal glucose (12) Elevated serum creatinine: CODE(S): R79.89 - Other specified abnormal findings of blood chemistry PLAN: Plan Patient was evaluated at the wound healing center. A subcutaneous debridement was performed to the left buttock/ischial ulcer only. Operative wound cultures from 11/23/21 positive for Streptococcus constellatus and Corynebacterium striatum. He was started on Cefdinir 300mg BID. Creatinine repeat on 11/27/21, which was down to 1.62 from 1.73 on 11/25/21. Also, repeat K+ 4.0. Patient restarted Plavix. Wound care - Dakin's 0.25% moistened gauze covered by ABD/super absorber daily and prn to right groin. Left ischial ulcer reopened, place aquacel-ag covered with gauze daily. Encouraged increase protein intake and increase Vitamin C intake. Will need supplemental protein to help heal this wound. He is having issues with pain control. Renewed Hydromorphone 2mg tabs (24 tabs). PDMP reviewed. Encouraged ambulation but not to over do activity, such as cutting wood. He is to complete the antibiotics that were prescribed upon discharge. Encouraged patient to stop smoking as it may have deleterious effects on wound healing. Follow up one week. Call or come in sooner if develop any questions or concerns.
[2021-12-11 09:25] VITALS: BP 161/86; PULSE 101; TEMP 35.7
--- NOTE | 2021-12-11 11:09 | PN.PCM_ITS ---
History of Present Illness Date of Service: 12/11/21 Chief Complaint: Excision of hidradenitis of right inguinal, scrotal and p erineal area History of Wound: 56 year old male who is known to me. He has a history significant for hidradenitis, DM type II, HTN, CAD, arterial insufficiency, and smoker. He had surgery on 11/23/21 for 1. Surgical preparation right inguinal area with excision suppurative hidradenitis abscess (112 cm2, and 192 cm2 total). 2. Surgical preparation right scrotum with incision and drainage and excision suppurative hidradenitis abscess (50 cm2, and 192 cm2 total). 3. Surgical preparation right perineal area with excision suppurative hidradenitis abscess (30 cm2, and 192 cm2 total). Operative wound cultures from 11/23/21 positive for Streptococcus constellatus and Corynebacterium striatum. He was started on Cefdinir 300mg BID. Creatinine repeat today, 11/27/21, down to 1.62 from 1.73 on 11/25/21. Wound care - Dakin's 0.25% moistened gauze covered by ABD/super absorber daily and prn to right groin. Left ischial ulcer reopened, place aquacel-ag covered with gauze daily. Today he denies fevers, chills, nausea and vomiting. He states that he has a good appetite. Other history: Surgery 03/22/20 - 1. Surgical preparation left inguinal area with excision hidradenitis (315 cm2 total wound). 2. Surgical preparation perineal area with excision hidradenitis (315 cm2 total wound). 3. Surgical preparation base left scrotum with incision and drainage and excision hidradenitis (315 cm2 total wound). Operative culture from 03/22/20 - Enterococcus faecalis and Streptococcus group F, Anaerobic cocci and Prevotella bivia. He was treated with Linezolid and Flagyl and has completed them. He saw Dr. Kasey live had an angioplasty of some of his vessels in his legs. Patient admitted to the hospital for increased redness and swelling of his left groin and buttocks on 09/27/20. Patient was started on IV Vancomycin, Levaquin and Flagyl by ID. Surgery 09/29/20 - 1. Surgical preparation left perianal area with excision hidradenitis abscess (144 cm2). 2. Surgical preparation left posterior thigh with incision and drainage and excisional debridement hidradenitis abscess (96 cm2). Operative cultures from 09/29/20 positive for Streptococcus constellatus, Corynebacterium striatum, Anaerobic cocci, and Prevotella species. Pathology of left perianal and left posterior thigh abscess showed pieces of skin with underlying tisse with acute and chronic inflammation, granulation tissue reaction and abscess formation. 10/01/20 - Laparoscopic sigmoid colostomy placed by Dr. Osorio due to the complicated perineal wound secondary to hidradenitis suppurativa status post excision. Progress of Wound: Right groin is stable. There are a couple areas of fat necrosis in the crease of his groin and scrotum. No active bleeding. Left ischial ulcer is slightly smaller, wound bed is pink. His pain is better controlled this week. Objective Data Objective Data Vital Signs: Vital Signs Temp Pulse Resp BP 96.3 F L 101 H 18 161/86 H 12/11/21 09:25 12/11/21 09:25 11/27/21 08:38 12/11/21 09:25 Lab / Micro Data Result Diagrams: 11/27/21 10:10 Charges/Coding Procedures Integumentary [id number]: [id number] Ayla subq tissue 20 sq cm/< (Left ischial ulcer) Debridement Note Debridement Note Wound debrided: groin, scrotum, perineal area Laterality: Right Wound Grade/Stage: Stage IV Type of Debridement: Excisional debridement Anesthesia Used: 5% Lidocaine Gel Depth: Down to and including healthy tissue, in the subcutaneous layer and to muscle Percentage of wound debrided: 100 Instrument Used: 7mm curette Tissue Removed: Devitalized tissue and slough Severity: Fat Layer Exposed Amount of bleeding with debridement: Mild Bleeding Controlled with: Pressure and Compression and gauze Patient tolerated procedure: Patient tolerated procedure well Post-Debridement Measurements and Additional Note: Post-Debridement Measurements/Treatment BEKA - Nurse 1 - General Ulcer Assessment Start: 11/27/21 08:38 Freq: Status: Active Protocol: ROC Activity Type Activity Date Activity User E-sign Co-sign Detail Recorded Client Recorded Date Recorded By Document 11/27/21 08:38 DL [id number] 11/27/21 08:58 DL Document 12/04/21 09:22 KR [id number] 12/04/21 09:30 KR Document 12/11/21 09:25 AK [id number] 12/11/21 09:27 AK 11/27/21 12/04/21 12/11/21 08:38 09:22 09:25 WC - Today's Visit Information Type of service Initial Visit Follow-up Visit Follow-up Visit (Physician/AGRICULTURAL LABOR CAMP MANAGER (Physician/AGRICULTURAL LABOR 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 MANAGER ) ) Arrival Mode Ambulatory Ambulatory Ambulatory Transfer Assistance None Patient Identification Verified (Name & Yes Yes Yes ) Patient Requires Transmission-Based No Precautions Finger Stick Blood Sugar(mg/dl) (if 141 indicated): Blood Sugar Stated by Patient Vital Signs Temperature (97.8 F-99.1 F) 97.3 F L 97.6 F L 96.3 F L Temperature Source Temporal Temporal Temporal Pulse Rate (60-100) 88 104 H 101 H Pulse Location Monitor Monitor Monitor Respiratory Rate (12-18) 18 Blood Pressure (90/60-120/80) 196/82 H 185/65 H 161/86 H Blood Pressure Mean (mm Hg) 120 105 111 Source Monitor Monitor Monitor Position Semi-Fowlers Blood Pressure Location Right Arm History Since Last Visit- (Skip if this is Patient's initial visit) Have you changed medications since your No No last visit? Any new allergies or adverse reactions No No Had a fall/change in ADL's that may No No increase risk of falls Signs or symptoms of abuse and/or No No neglect since last visit Have you been in the hospital since your No No last visit? Has dressing in place as prescribed Yes Yes Has compression in place as prescribed N/A N/A Has offloadiing in place as prescribed N/A N/A Experienced any changes in pain level or No No management Left Footwear Regular Shoe Regular Shoe Right Footwear Regular Shoe Regular Shoe Pain Scale: 0-10 Numeric Is Patient Pain Free? Yes Yes No Communication Assessment Preferred language Tanzanian Able to Read Yes Able to Write Yes Communication Tools None Right Hearing Abillity Normal Left Hearing Abillity Normal Visual Assistive Devices Glasses Teaching Assessment Preferences Verbal,Written, Demonstration Barriers to Learning None Readiness To Learn Good Willingness to Engage in Self Management Med Activies Readiness to Engage in Self Management Med Activities Anxiety Level Calm Cooperation Cooperative Perception Coherent Interest in Health Problem Asks Questions Education Importance Acknowledges Need Does Patient Smoke tobacco or other Yes substances Smoking Status Current every day smoker Is Patient Diabetic Yes Functional Assessment Recent Decline in Ability to Perform Denies Any Declines Culture/Christianity/Staff Field Engineer Cultural/Christianity Needs that may affect No Treatment Plan Would you allow our hospital claim attorney to No meet you for the purpose of spiritual/ emotional support? Staff Field Engineer to contact place of sabianist No Teaching: Wound Center Discharge Instructions -Person Taught Patient Smoking Cessation -Person Taught Patient surgical debridement -Person Taught Patient *Infection -Person Taught Patient Skin Care -Person Taught Patient *Home Safety (Medications/Transfers/ Personal Safety) -Person Taught Patient Dressing Your Wound -Person Taught Patient *Debridement -Person Taught Patient WC - Nurse 1 - General Ulcer Measurement Start: 11/27/21 08:38 Freq: Status: Active Protocol: Activity Type Activity Date Activity User E-sign Co-sign Detail Recorded Client Recorded Date Recorded By Document 11/27/21 08:38 DL [id number] 11/27/21 08:58 DL Edit Result 11/27/21 08:38 DL (1) [id number] 11/27/21 09:10 AK Document 12/04/21 09:22 KR [id number] 12/04/21 09:30 KR Document 12/11/21 09:25 AK [id number] 12/11/21 09:27 AK (1) #5scrotum/R Groin Cluster - Current Size (cm) - Width 18 => 15 - Total Square Cm 306 => 255 11/27/21 12/04/21 12/11/21 08:38 09:22 09:25 Wound Center Nurse 1 #6 L Ischium -Combined with other wound No -Current Size (cm) - Length 1.6 1 1 -Current Size (cm) - Width 2.8 2.5 2.9 -Current Size (cm) - Depth 0.2 0.1 0.1 -Total Square Cm 4.48 2.5 2.9 -Photo Taken Yes No -Tunneling No -Undermining/Tunneling No -Circular Undermining No -Change in Wound Grade/Stage No -Exudate Amt Small Medium Small -Exudate Type Serosanguineous Serosanguineous Serosanguineous -Wound Margin Distinct, Distinct, Distinct, Outline Outline Outline Attached Attached Attached -Granulation Amt Large (67-100%) Medium (34-66%) -Granulation Quality Hiltonia Hiltonia Hiltonia -Slough/Fibrin No -Necrosis Amt None Present (0 Medium (34-66%) None Present (0 %) %) -Necrotic Tissue Type Adherent Slough -Structure Exposed N/A N/A -Texture (Abimbola-wound Skin Appearance) Scarring Assessed, No Abnormality, Scarring Assessed -Moisture (Abimbola-wound Skin Appearance) No Abnormality No Abnormality, No Abnormality, Assessed Assessed -Color (Abimbola-wound Skin Appearance) No Abnormality No Abnormality, No Abnormality, Assessed Assessed -Temperature (Abimbola-wound Skin No Abnormality No Abnormality No Abnormality Appearance) (Pt Warm) (Pt Warm) (Pt Warm) -Tenderness on Palpation (Abimbola-wound No No No Skin Appearance) -Ulcer Cleansing Soap and Water Soap and Water Soap and Water -Foul Odor after Cleansing No No -Anesthetic Used 5% Lidocaine 4% Lidocaine 4% Lidocaine Gel Solution,5% Solution Lidocaine Gel #5scrotum/R Groin Cluster -Combined with other wound No -Current Size (cm) - Length 17 18 20 -Current Size (cm) - Width 15 12 11 -Current Size (cm) - Depth 3.5 0.2 -Total Square Cm 255 216 220 -Photo Taken Yes No -Tunneling No -Undermining/Tunneling No -Undermining/Tunneling Starts (O'clock 5 ) -Undermining/Tunneling Ends (O'clock) 6 -Maximum Distance (cm) 0.2 -Circular Undermining No -Change in Wound Grade/Stage No -Exudate Amt Medium Large Large -Exudate Type Serosanguineous Serosanguineous Serosanguineous -Wound Margin Distinct, Distinct, Distinct, Outline Outline Outline Attached Attached Attached -Granulation Amt Medium (34-66%) Large (67-100%) None Present (0 %) -Granulation Quality Red Red -Slough/Fibrin Yes -Necrosis Amt Medium (34-66%) Small (1-33%) Medium (34-66%) -Necrotic Tissue Type Adherent Slough Adherent Slough Adherent Slough -Structure Exposed N/A Muscle -Texture (Abimbola-wound Skin Appearance) Localized Edema Assessed, No Abnormality, ,Scarring Scarring Assessed -Moisture (Abimbola-wound Skin Appearance) No Abnormality No Abnormality, No Abnormality, Assessed Assessed -Color (Abimbola-wound Skin Appearance) No Abnormality No Abnormality, No Abnormality, Assessed Assessed -Temperature (Abimbola-wound Skin No Abnormality No Abnormality No Abnormality Appearance) (Pt Warm) (Pt Warm) (Pt Warm) -Tenderness on Palpation (Abimbola-wound No No No Skin Appearance) -Ulcer Cleansing Not Cleansed Rinsed/ Irrigated with Saline -Foul Odor after Cleansing No No No -Anesthetic Used 5% Lidocaine 4% Lidocaine 4% Lidocaine Gel Solution,5% Solution Lidocaine Gel WC - Nurse 2 - General Ulcer CM Notes Start: 11/27/21 08:38 Freq: Status: Active Protocol: Activity Type Activity Date Activity User E-sign Co-sign Detail Recorded Client Recorded Date Recorded By Document 11/27/21 09:30 JF [id number] 11/27/21 09:32 JF Edit Result 11/27/21 09:30 JF (1) [id number] 11/27/21 09:36 JF Document 12/04/21 09:39 JF [id number] 12/04/21 09:41 JF Document 12/11/21 09:41 JF [id number] 12/11/21 09:52 JF Edit Result 12/11/21 09:41 JF (2) [id number] 12/11/21 09:55 JF (1) #6 L Ischium - Time => 09:35 - Correct Patient No => Yes - Correct Side, Site, Position No => Yes - Correct Procedure No => Yes - Procedure Performed No => Yes - Type of Procedure => Debridement - Clinical Debridement => Subcutaneous - Tissue Removed => Subcutaneous - Post Debridement (cm) - Length => 2.8 - Post Debridement (cm) - Width => 3.3 - Post Debridement (cm) - Depth => 0.1 - Total Square (Post) (cm) => 9.24 - Area of Debridement (cm) - Length => 2.8 - Area of Debridement (cm) - Width => 3.3 - Total Square (Area) (cm) => 9.24 - Tunneling => No - Undermining/Tunneling => No - Circular Undermining => No - Ulcer Cleansing => Rinsed/Irrigated => with Saline - Foul Odor after Cleansing => No - Bioengineered Tissue => No - Bleeding Controlled with => Pressure - Treatment Response => Procedure => Tolerated Well - Offloading => No - Debridement - Subq, 1st 20sq cm => Yes (2) #6 L Ischium - Debridement - Subq, 1st 20sq cm No => Yes #5scrotum/R Groin Cluster - Clinical Debridement Subcutaneous => Muscle / Fascia - Tissue Removed Subcutaneous => Muscle - Debridement - Subq, 1st 20sq cm Yes => No - Debridement, SubQ, ea addt'l 20sq cm 10 => or part thereof - Debridement - Muscle / Fascia, 1st => Yes 20sq cm - Debridement, Muscle/Fascia, ea addt'l => 10 20sq cm or part thereof 11/27/21 12/04/21 12/11/21 09:30 09:39 09:41 Wound Center Nurse 2 #6 L Ischium -Time 09:35 09:40 09:41 -Correct Patient Yes Yes Yes -Correct Side, Site, Position Yes Yes Yes -Correct Procedure Yes Yes Yes -Procedure Performed Yes Yes Yes -Type of Procedure Debridement Debridement Debridement -Clinical Debridement Subcutaneous Subcutaneous Subcutaneous -Tissue Removed Subcutaneous Subcutaneous Subcutaneous -Post Debridement (cm) - Length 2.8 2.5 1.7 -Post Debridement (cm) - Width 3.3 2.6 2.5 -Post Debridement (cm) - Depth 0.1 0.1 0.1 -Total Square (Post) (cm) 9.24 6.50 4.25 -Area of Debridement (cm) - Length 2.8 2.5 1.7 -Area of Debridement (cm) - Width 3.3 2.6 2.5 -Total Square (Area) (cm) 9.24 6.50 4.25 -Tunneling No No No -Undermining/Tunneling No No No -Circular Undermining No No No -Wound/Ulcer Outcome Not Healed Not Healed Not Healed -Ulcer Cleansing Rinsed/ Rinsed/ Rinsed/ Irrigated with Irrigated with Irrigated with Saline Saline Saline -Foul Odor after Cleansing No No No -Bioengineered Tissue No No No -Bleeding Controlled with Pressure Pressure Pressure -Treatment Response Procedure Procedure Procedure Tolerated Well Tolerated Well Tolerated Well -Offloading No No No -Debridement - Subq, 1st 20sq cm Yes Yes Yes #5scrotum/R Groin Cluster -Time 09:42 -Correct Patient No No Yes -Correct Side, Site, Position No No Yes -Correct Procedure No No Yes -Procedure Performed No No Yes -Type of Procedure Debridement -Clinical Debridement Muscle / Fascia -Tissue Removed Muscle -Post Debridement (cm) - Length 15.5 -Post Debridement (cm) - Width 13.0 -Post Debridement (cm) - Depth 0.7 -Total Square (Post) (cm) 201.50 -Area of Debridement (cm) - Length 15.5 -Area of Debridement (cm) - Width 13.0 -Total Square (Area) (cm) 201.50 -Tunneling Yes -Tunneling Position (O'clock) 6 -Tunneling Distance (cm) 0.8 -Undermining/Tunneling No -Circular Undermining No -Wound/Ulcer Outcome Not Healed Not Healed Not Healed -Ulcer Cleansing Rinsed/ Irrigated with Saline -Foul Odor after Cleansing No -Bioengineered Tissue No -Bleeding Controlled with Pressure -Treatment Response Procedure Tolerated Well -Offloading No -Debridement - Subq, 1st 20sq cm No -Debridement - Muscle / Fascia, 1st Yes 20sq cm -Debridement, Muscle/Fascia, ea addt'l 10 20sq cm or part thereof Pain Scale: 0-10 Numeric Is Patient Pain Free? Yes Yes Yes WC - Nurse 3 - General Ulcer D/C NN Start: 11/27/21 08:38 Freq: Status: Active Protocol: Activity Type Activity Date Activity User E-sign Co-sign Detail Recorded Client Recorded Date Recorded By Document 11/27/21 10:01 DL [id number] 11/27/21 10:02 DL Document 12/04/21 10:11 DL [id number] 12/04/21 10:15 DL Document 12/11/21 10:08 DL [id number] 12/11/21 10:09 DL 11/27/21 12/04/21 12/11/21 10:01 10:11 10:08 Wound Care Nurse 3 #6 L Ischium -Ulcer Cleansing Rinsed/ Soap and Water Soap and Water Irrigated with Saline -Foul Odor after Cleansing No No No -Primary Dressing Applied Aquacel AG 4x4 Silvercel Silvercel -Primary Dressing Covered/Secured with Dry Gauze, Dry Gauze, Dry Gauze, Secured with Secured with Secured with Tape Tape Tape -Aquacel AG 4x4 1 -Silvercel 1 1 #5scrotum/R Groin Cluster -Ulcer Cleansing Soap and Water Soap and Water Soap and Water -Foul Odor after Cleansing No No No -Other Dressing Dakins dakins dakins -Primary Dressing Covered/Secured with Dry Gauze, Dry Gauze Dry Gauze & Secured with Roll Gauze, Tape Secured with Tape Treatment Response Procedure Procedure Procedure Tolerated Well Tolerated Well Tolerated Well Pain Scale: 0-10 Numeric Is Patient Pain Free? Yes Yes Yes WC - Visit Discharge Discharge Condition Stable Stable Stable Ambulatory Status Ambulatory Ambulatory Ambulatory Transportation Private Auto Private Auto Private Auto Facility Type Gunstock Repairer [facility] Facility Orders Sent Yes Yes Yes Additional Wound Wound debrided: ischial ulcer Laterality: Left Wound Grade/Stage: Stage II Type of Debridement: Excisional debridement Depth: Down to and including healthy tissue and in the subcutaneous layer Percentage of wound debrided: 100 Instrument Used: 5mm curette Tissue Removed: Devitalized tissue and slough Severity: Fat Layer Exposed Amount of bleeding with debridement: Mild Bleeding Controlled with: Compression and gauze Patient tolerated procedure: Patient tolerated procedure well Assessment/Plan Assessment/Plan (1) Open wound of scrotum with complication: CODE(S): S31.30XA - Unspecified open wound of scrotum and testes, initial encounter (2) Open wound of buttock with complication: CODE(S): S31.809A - Unspecified open wound of unspecified buttock, initial encounter (3) Non-healing open wound of right groin: CODE(S): S31.103A - Unspecified open wound of abdominal wall, right lower quadrant without penetration into peritoneal cavity, initial encounter (4) Chronic ulcer of buttock: CODE(S): L98.419 - Non-pressure chronic ulcer of buttock with unspecified severity (5) Suppurative hidradenitis: CODE(S): L73.2 - Hidradenitis suppurativa (6) Smoker: CODE(S): F17.200 - Nicotine dependence, unspecified, uncomplicated (7) Hypertension: CODE(S): I10 - Essential (primary) hypertension QUALIFIERS: Hypertension type: primary hypertension Qualified Code(s): I10 - Essential (primary) hypertension (8) Acute postoperative anemia due to expected blood loss: CODE(S): D62 - Acute posthemorrhagic anemia (9) Diabetes type 2, uncontrolled: CODE(S): E11.65 - Type 2 diabetes mellitus with hyperglycemia (10) Hypokalemia: CODE(S): E87.6 - Hypokalemia (11) Hemoglobin A1c greater than 8.0 percent: CODE(S): R73.09 - Other abnormal glucose (12) Elevated serum creatinine: CODE(S): R79.89 - Other specified abnormal findings of blood chemistry PLAN: Plan Patient was evaluated at the wound healing center. A subcutaneous debridement was performed to the left buttock/ischial ulcer only. Operative wound cultures from 11/23/21 positive for Streptococcus constellatus and Corynebacterium striatum. He was started on Cefdinir 300mg BID. Creatinine repeat on 11/27/21, which was down to 1.62 from 1.73 on 11/25/21. Also, repeat K+ 4.0. Patient restarted Plavix. Wound care - Dakin's 0.25% moistened gauze covered by ABD/super absorber daily and prn to right groin. Left ischial ulcer, place aquacel-ag covered with gauze daily. Encouraged increase protein intake and increase Vitamin C intake. Will need supplemental protein to help heal this wound. He is states he has enough pain medication. His pain was better controlled since he was less active over the past week. Encouraged ambulation but not to over do activity, such as cutting wood. He is to complete the antibiotics that were prescribed upon discharge. Encouraged patient to stop smoking as it may have deleterious effects on wound healing. Follow up one week. Call or come in sooner if develop any questions or concerns.
== END 2021-12-11 23:59 | disposition home or self-care (01) ==
LOC: WC 09:15
PROVIDERS: Surgery; PCP Nurse Practitioner; Referring Provider Nurse Practitioner Family; Visit Provider Nurse Practitioner Family
DX: L73.2 Hidradenitis suppurativa (principal); E11.622 Type 2 diabetes mellitus with other skin ulcer; L98.412 Non-pressure chronic ulcer of buttock with fat layer exposed; L98.492 Non-pressure chronic ulcer of skin of other sites with fat layer exposed; J44.9 Chronic obstructive pulmonary disease, unspecified; I10 Essential (primary) hypertension; I25.10 Atherosclerotic heart disease of native coronary artery without angina pectoris; F17.210 Nicotine dependence, cigarettes, uncomplicated; Z79.899 Other long term (current) drug therapy; Z79.02 Long term (current) use of antithrombotics/antiplatelets; L02.31 Cutaneous abscess of buttock; B95.4 Other streptococcus as the cause of diseases classified elsewhere; B96.89 Other specified bacterial agents as the cause of diseases classified elsewhere
CPT/HCPCS: 11042; 11043; 11045; 11046; 36415; 80048; 99214; G0463

== ENCOUNTER 2022-01-08 09:00 | Outpatient (RCR) | payer OTHER, SELFPAY ==
[2021-12-12 00:43] VITALS: BP 161/86; PULSE 101; RESP 18; TEMP 35.7
[2021-12-18 09:05] VITALS: BP 201/116; PULSE 82; RESP 18; TEMP 36.3
--- NOTE | 2021-12-18 10:27 | PN.PCM_ITS ---
History of Present Illness Date of Service: 12/18/21 Chief Complaint: Excision of hidradenitis of right inguinal, scrotal and p erineal area History of Wound: 56 year old male who is known to me. He has a history significant for hidradenitis, DM type II, HTN, CAD, arterial insufficiency, and smoker. He had surgery on 11/23/21 for 1. Surgical preparation right inguinal area with excision suppurative hidradenitis abscess (112 cm2, and 192 cm2 total). 2. Surgical preparation right scrotum with incision and drainage and excision suppurative hidradenitis abscess (50 cm2, and 192 cm2 total). 3. Surgical preparation right perineal area with excision suppurative hidradenitis abscess (30 cm2, and 192 cm2 total). Operative wound cultures from 11/23/21 positive for Streptococcus constellatus and Corynebacterium striatum. He was started on Cefdinir 300mg BID. Creatinine repeat today, 11/27/21, down to 1.62 from 1.73 on 11/25/21. Wound care - Dakin's 0.25% moistened gauze covered by ABD/super absorber daily and prn to right groin. Left ischial ulcer reopened, place aquacel-ag covered with gauze daily. Today he denies fevers, chills, nausea and vomiting. He states that he has a good appetite. Other history: Surgery 03/22/20 - 1. Surgical preparation left inguinal area with excision hidradenitis (315 cm2 total wound). 2. Surgical preparation perineal area with excision hidradenitis (315 cm2 total wound). 3. Surgical preparation base left scrotum with incision and drainage and excision hidradenitis (315 cm2 total wound). Operative culture from 03/22/20 - Enterococcus faecalis and Streptococcus group F, Anaerobic cocci and Prevotella bivia. He was treated with Linezolid and Flagyl and has completed them. He saw Dr. Kasey live had an angioplasty of some of his vessels in his legs. Patient admitted to the hospital for increased redness and swelling of his left groin and buttocks on 09/27/20. Patient was started on IV Vancomycin, Levaquin and Flagyl by ID. Surgery 09/29/20 - 1. Surgical preparation left perianal area with excision hidradenitis abscess (144 cm2). 2. Surgical preparation left posterior thigh with incision and drainage and excisional debridement hidradenitis abscess (96 cm2). Operative cultures from 09/29/20 positive for Streptococcus constellatus, Corynebacterium striatum, Anaerobic cocci, and Prevotella species. Pathology of left perianal and left posterior thigh abscess showed pieces of skin with underlying tisse with acute and chronic inflammation, granulation tissue reaction and abscess formation. 10/01/20 - Laparoscopic sigmoid colostomy placed by Dr. Osorio due to the complicated perineal wound secondary to hidradenitis suppurativa status post excision. Progress of Wound: Right groin wound has improved. Wound bed is pink. No active bleeding. He is experiencing increased pain with the Dakin's solution on the day of debridement and the day after. He is also experiencing increased pain in his right groin wound area. Left ischial ulcer is slightly smaller, wound bed is pink. Objective Data Objective Data Vital Signs: Vital Signs Temp Pulse Resp BP 97.3 F L 82 18 201/116 H 12/18/21 09:05 12/18/21 09:05 12/18/21 09:05 12/18/21 09:05 Charges/Coding Procedures Integumentary [id number]: [id number] Ayla subq tissue 20 sq cm/< (left ischial ulcer) Debridement Note Debridement Note Wound debrided: groin, scrotum, perineal area Laterality: Right Wound Grade/Stage: Stage IV Type of Debridement: Excisional debridement Anesthesia Used: 5% Lidocaine Gel Depth: Down to and including healthy tissue, in the subcutaneous layer and to muscle Percentage of wound debrided: 100 Instrument Used: 7mm curette Tissue Removed: Devitalized tissue and slough Severity: Fat Layer Exposed Amount of bleeding with debridement: Mild Bleeding Controlled with: Pressure, Compression and gauze and Silver Nitrate Patient tolerated procedure: Patient tolerated procedure well Post-Debridement Measurements and Additional Note: Post-Debridement Measurements/Treatment BEKA - Nurse 1 - General Ulcer Assessment Start: 12/18/21 09:05 Freq: Status: Active Protocol: ROC Activity Type Activity Date Activity User E-sign Co-sign Detail Recorded Client Recorded Date Recorded By Document 12/18/21 09:05 BREANNA [id number] 12/18/21 09:09 DL 12/18/21 09:05 WC - Today's Visit Information Type of service Follow-up Visit (Physician/DATABASE MANAGER ) Arrival Mode Ambulatory Transfer Assistance None Patient Identification Verified (Name & Yes ) Patient Requires Transmission-Based No Precautions Finger Stick Blood Sugar(mg/dl) (if not checked indicated): Blood Sugar Stated by Patient Vital Signs Temperature (97.8 F-99.1 F) 97.3 F L Temperature Source Temporal Pulse Rate (60-100) 82 Pulse Location Monitor Respiratory Rate (12-18) 18 Respiratory rate source Observation Blood Pressure (90/60-120/80) 201/116 H Blood Pressure Mean (mm Hg) 144 Source Monitor History Since Last Visit- (Skip if this is Patient's initial visit) Have you changed medications since your No last visit? Any new allergies or adverse reactions No Had a fall/change in ADL's that may No increase risk of falls Signs or symptoms of abuse and/or No neglect since last visit Have you been in the hospital since your No last visit? Has dressing in place as prescribed Yes Has compression in place as prescribed N/A Has offloadiing in place as prescribed N/A Experienced any changes in pain level or No management Pain Scale: 0-10 Numeric Is Patient Pain Free? Yes - Nurse 1 - General Ulcer Measurement Start: 12/18/21 09:05 Freq: Status: Active Protocol: Activity Type Activity Date Activity User E-sign Co-sign Detail Recorded Client Recorded Date Recorded By Document 12/18/21 09:05 DL [id number] 12/18/21 09:09 DL 12/18/21 09:05 Wound Center Nurse 1 #6 L Ischium -Current Size (cm) - Length 1 -Current Size (cm) - Width 2.1 -Current Size (cm) - Depth 0.1 -Total Square Cm 2.1 -Photo Taken Yes -Exudate Amt Medium -Exudate Type Serosanguineous -Wound Margin Distinct, Outline Attached -Granulation Quality Pale,[place] -Necrosis Amt None Present (0 %) -Structure Exposed N/A -Texture ([place]-wound Skin Appearance) Scarring -Moisture ([place]-wound Skin Appearance) No Abnormality -Color ([place]-wound Skin Appearance) No Abnormality -Ulcer Cleansing Soap and Water -Foul Odor after Cleansing No -Anesthetic Used 4% Lidocaine Solution #5scrotum/R Groin Cluster -Current Size (cm) - Length 16 -Current Size (cm) - Width 13 -Current Size (cm) - Depth 0.7 -Total Square Cm 208 -Photo Taken Yes -Undermining/Tunneling Starts (O'clock 5 ) -Undermining/Tunneling Ends (O'clock) 6 -Maximum Distance (cm) 0.3 -Exudate Amt Medium -Exudate Type Serosanguineous -Wound Margin Distinct, Outline Attached -Granulation Amt Large (67-100%) -Granulation Quality [place] -Necrosis Amt Small (1-33%) -Necrotic Tissue Type Adherent Slough -Structure Exposed N/A -Texture ([place]-wound Skin Appearance) Scarring -Moisture ([place]-wound Skin Appearance) No Abnormality -Color ([place]-wound Skin Appearance) No Abnormality -Tenderness on Palpation ([place]-wound No Skin Appearance) -Ulcer Cleansing Soap and Water -Foul Odor after Cleansing No -Anesthetic Used 4% Lidocaine Solution WC - Nurse 2 - General Ulcer CM Notes Start: 12/18/21 09:05 Freq: Status: Active Protocol: Activity Type Activity Date Activity User E-sign Co-sign Detail Recorded Client Recorded Date Recorded By Document 12/18/21 09:17 [id number] 12/18/21 09:28 LIZETTE 12/18/21 09:17 Wound Center Nurse 2 #6 L Ischium -Time 09:18 -Correct Patient Yes -Correct Side, Site, Position Yes -Correct Procedure Yes -Procedure Performed Yes -Type of Procedure Debridement -Clinical Debridement Subcutaneous -Tissue Removed Subcutaneous -Post Debridement (cm) - Length 1.8 -Post Debridement (cm) - Width 2.2 -Post Debridement (cm) - Depth 0.1 -Total Square (Post) (cm) 3.96 -Area of Debridement (cm) - Length 1.8 -Area of Debridement (cm) - Width 2.2 -Total Square (Area) (cm) 3.96 -Tunneling No -Undermining/Tunneling No -Circular Undermining No -Wound/Ulcer Outcome Not Healed -Ulcer Cleansing Rinsed/ Irrigated with Saline -Foul Odor after Cleansing No -Bioengineered Tissue No -Bleeding Controlled with Pressure -Treatment Response Procedure Tolerated Well -Offloading No -Debridement - Subq, 1st 20sq cm Yes #5scrotum/R Groin Cluster -Time 09:18 -Correct Patient Yes -Correct Side, Site, Position Yes -Correct Procedure Yes -Procedure Performed Yes -Type of Procedure Debridement -Clinical Debridement Muscle / Fascia -Tissue Removed Muscle,Fascia -Post Debridement (cm) - Length 13.5 -Post Debridement (cm) - Width 12.5 -Post Debridement (cm) - Depth 2.0 -Total Square (Post) (cm) 168.75 -Area of Debridement (cm) - Length 13.5 -Area of Debridement (cm) - Width 12.5 -Total Square (Area) (cm) 168.75 -Tunneling Yes -Tunneling Position (O'clock) 6 -Tunneling Distance (cm) 0.8 -Undermining/Tunneling No -Circular Undermining No -Wound/Ulcer Outcome Not Healed -Ulcer Cleansing Rinsed/ Irrigated with Saline -Foul Odor after Cleansing No -Bioengineered Tissue No -Bleeding Controlled with Pressure,Silver Nitrate -Treatment Response Procedure Tolerated Well -Offloading No -Debridement - Muscle / Fascia, 1st Yes 20sq cm -Debridement, Muscle/Fascia, ea addt'l 8 20sq cm or part thereof Pain Scale: 0-10 Numeric Is Patient Pain Free? Yes - Nurse 3 - General Ulcer D/C NN Start: 12/18/21 09:05 Freq: Status: Active Protocol: Activity Type Activity Date Activity User E-sign Co-sign Detail Recorded Client Recorded Date Recorded By Document 12/18/21 09:34 GEORGE [id number] 12/18/21 09:35 GEORGE 12/18/21 09:34 Wound Care Nurse 3 #6 L Ischium -Ulcer Cleansing Rinsed/ Irrigated with Saline -Primary Dressing Applied Silvercel -Primary Dressing Covered/Secured with Dry Gauze, Secured with Tape -[place] 1 #5scrotum/R Groin Cluster -Other Dressing saline moistened gauze -Primary Dressing Covered/Secured with Dry Gauze, Secured with Tape Treatment Response Procedure Tolerated Well Pain Scale: 0-10 Numeric Is Patient Pain Free? Yes WC - Visit Discharge Discharge Condition Stable Ambulatory Status Ambulatory Transportation Private Auto Medication Reconcilliation completed & No provided to patient/care provider Clinical Summary of Care Provided Yes Additional Wound Wound debrided: ischial ulcer Laterality: Left Wound Grade/Stage: Stage II Type of Debridement: Excisional debridement Depth: Down to and including healthy tissue and in the subcutaneous layer Percentage of wound debrided: 100 Instrument Used: 5mm curette Tissue Removed: Devitalized tissue and slough Severity: Fat Layer Exposed Amount of bleeding with debridement: Mild Bleeding Controlled with: Compression and gauze Patient tolerated procedure: Patient tolerated procedure well Assessment/Plan Assessment/Plan (1) Open wound of scrotum with complication: CODE(S): S31.30XA - Unspecified open wound of scrotum and testes, initial encounter (2) Open wound of buttock with complication: CODE(S): S31.809A - Unspecified open wound of unspecified buttock, initial encounter (3) Non-healing open wound of right groin: CODE(S): S31.103A - Unspecified open wound of abdominal wall, right lower quadrant without penetration into peritoneal cavity, initial encounter (4) Chronic ulcer of buttock: CODE(S): L98.419 - Non-pressure chronic ulcer of buttock with unspecified severity (5) Suppurative hidradenitis: CODE(S): L73.2 - Hidradenitis suppurativa (6) Smoker: CODE(S): F17.200 - Nicotine dependence, unspecified, uncomplicated (7) Hypertension: CODE(S): I10 - Essential (primary) hypertension QUALIFIERS: Hypertension type: primary hypertension Qualified Code(s): I10 - Essential (primary) hypertension (8) Acute postoperative anemia due to expected blood loss: CODE(S): D62 - Acute posthemorrhagic anemia (9) Diabetes type 2, uncontrolled: CODE(S): E11.65 - Type 2 diabetes mellitus with hyperglycemia (10) Hypokalemia: CODE(S): E87.6 - Hypokalemia (11) Hemoglobin A1c greater than 8.0 percent: CODE(S): R73.09 - Other abnormal glucose (12) Elevated serum creatinine: CODE(S): R79.89 - Other specified abnormal findings of blood chemistry PLAN: Plan Patient was evaluated at the wound healing center. A subcutaneous debridement was performed to the left buttock/ischial ulcer only. Operative wound cultures from 11/23/21 positive for Streptococcus constellatus and Corynebacterium striatum. He was started on Cefdinir 300mg BID. Creatinine repeat on 11/27/21, which was down to 1.62 from 1.73 on 11/25/21. Also, repeat K+ 4.0. Patient restarted Plavix. Wound care - Saline moistened gauze for the first day or two after debridement then Dakin's 0.25% moistened covered by ABD/super absorber daily and prn to right groin. Left ischial ulcer, place aquacel-ag covered with gauze daily. Encouraged increase protein intake and increase Vitamin C intake. Will need supplemental protein to help heal this wound. He is states he has enough pain medication. His pain was better controlled since he was less active over the past week. Encouraged ambulation but not to over do activity, such as cutting wood. He is to complete the antibiotics that were prescribed upon discharge. Encouraged patient to stop smoking as it may have deleterious effects on wound healing. Will order Percocet (28 tabs) to help his pain control. Follow up one week. Call or come in sooner if develop any questions or concerns.
[2021-12-25 08:58] VITALS: BP 195/84; PULSE 72; TEMP 36.6
--- NOTE | 2021-12-25 09:47 | PN.PCM_ITS ---
History of Present Illness Date of Service: 12/25/21 Chief Complaint: Excision of hidradenitis of right inguinal, scrotal and p erineal area History of Wound: 56 year old male who is known to me. He has a history significant for hidradenitis, DM type II, HTN, CAD, arterial insufficiency, and smoker. He had surgery on 11/23/21 for 1. Surgical preparation right inguinal area with excision suppurative hidradenitis abscess (112 cm2, and 192 cm2 total). 2. Surgical preparation right scrotum with incision and drainage and excision suppurative hidradenitis abscess (50 cm2, and 192 cm2 total). 3. Surgical preparation right perineal area with excision suppurative hidradenitis abscess (30 cm2, and 192 cm2 total). Operative wound cultures from 11/23/21 positive for Streptococcus constellatus and Corynebacterium striatum. He was started on Cefdinir 300mg BID. Creatinine repeat today, 11/27/21, down to 1.62 from 1.73 on 11/25/21. Wound care - Dakin's 0.25% moistened gauze covered by ABD/super absorber daily and prn to right groin. Left ischial ulcer reopened, place aquacel-ag covered with gauze daily. Today he denies fevers, chills, nausea and vomiting. He states that he has a good appetite. Other history: Surgery 03/22/20 - 1. Surgical preparation left inguinal area with excision hidradenitis (315 cm2 total wound). 2. Surgical preparation perineal area with excision hidradenitis (315 cm2 total wound). 3. Surgical preparation base left scrotum with incision and drainage and excision hidradenitis (315 cm2 total wound). Operative culture from 03/22/20 - Enterococcus faecalis and Streptococcus group F, Anaerobic cocci and Prevotella bivia. He was treated with Linezolid and Flagyl and has completed them. He saw Dr. Kasey live had an angioplasty of some of his vessels in his legs. Patient admitted to the hospital for increased redness and swelling of his left groin and buttocks on 09/27/20. Patient was started on IV Vancomycin, Levaquin and Flagyl by ID. Surgery 09/29/20 - 1. Surgical preparation left perianal area with excision hidradenitis abscess (144 cm2). 2. Surgical preparation left posterior thigh with incision and drainage and excisional debridement hidradenitis abscess (96 cm2). Operative cultures from 09/29/20 positive for Streptococcus constellatus, Corynebacterium striatum, Anaerobic cocci, and Prevotella species. Pathology of left perianal and left posterior thigh abscess showed pieces of skin with underlying tisse with acute and chronic inflammation, granulation tissue reaction and abscess formation. 10/01/20 - Laparoscopic sigmoid colostomy placed by Dr. Osorio due to the complicated perineal wound secondary to hidradenitis suppurativa status post excision. Progress of Wound: Right groin wound has improved. Wound bed is pink. No active bleeding. He is experiencing increased pain with the Dakin's solution on the day of debridement, so he is using saline moistened gauze on the day he is debrided. Left ischial ulcer is slightly smaller, wound bed is pink. Objective Data Objective Data Vital Signs: Vital Signs Temp Pulse Resp BP 97.9 F 72 18 195/84 H 12/25/21 08:58 12/25/21 08:58 12/18/21 09:05 12/25/21 08:58 Charges/Coding Procedures Integumentary [id number]: [id number] Ayla subq tissue 20 sq cm/< (left ischial ulcer) Debridement Note Debridement Note Wound debrided: groin, scrotum, perineal area Laterality: Right Wound Grade/Stage: Stage IV Type of Debridement: Excisional debridement Anesthesia Used: 5% Lidocaine Gel Depth: Down to and including healthy tissue, in the subcutaneous layer and to muscle Percentage of wound debrided: 100 Instrument Used: 7mm curette Tissue Removed: Devitalized tissue and slough Severity: Fat Layer Exposed Amount of bleeding with debridement: Mild Bleeding Controlled with: Pressure, Compression and gauze and Silver Nitrate (at the increased depth at 4 o'clock) Patient tolerated procedure: Patient tolerated procedure well Post-Debridement Measurements and Additional Note: Post-Debridement Measurements/Treatment BEKA - Nurse 1 - General Ulcer Assessment Start: 12/18/21 09:05 Freq: Status: Active Protocol: ROC Activity Type Activity Date Activity User E-sign Co-sign Detail Recorded Client Recorded Date Recorded By Document 12/18/21 09:05 BREANNA [id number] 12/18/21 09:09 DL Document 12/25/21 08:58 AK [id number] 12/25/21 09:07 AK 12/18/21 12/25/21 09:05 08:58 - Today's Visit Information Type of service Follow-up Visit Follow-up Visit (Physician/PHOTOGRAPH DEVELOPER (Physician/PHOTOGRAPH DEVELOPER ) ) Arrival Mode Ambulatory Ambulatory Transfer Assistance None Patient Identification Verified (Name & Yes Yes ) Patient Requires Transmission-Based No No Precautions Safety Precautions NA Finger Stick Blood Sugar(mg/dl) (if not checked indicated): Blood Sugar Stated by Patient Vital Signs Temperature (97.8 F-99.1 F) 97.3 F L 97.9 F Temperature Source Temporal Temporal Pulse Rate (60-100) 82 72 Pulse Location Monitor Respiratory Rate (12-18) 18 Respiratory rate source Observation Blood Pressure (90/60-120/80) 201/116 H 195/84 H Blood Pressure Mean (mm Hg) 144 121 Source Monitor History Since Last Visit- (Skip if this is Patient's initial visit) Have you changed medications since your No last visit? Any new allergies or adverse reactions No Had a fall/change in ADL's that may No increase risk of falls Signs or symptoms of abuse and/or No neglect since last visit Have you been in the hospital since your No last visit? Has dressing in place as prescribed Yes Has compression in place as prescribed N/A Has offloadiing in place as prescribed N/A Experienced any changes in pain level or No management Pain Scale: 0-10 Numeric Is Patient Pain Free? Yes Yes - Nurse 1 - General Ulcer Measurement Start: 12/18/21 09:05 Freq: Status: Active Protocol: Activity Type Activity Date Activity User E-sign Co-sign Detail Recorded Client Recorded Date Recorded By Document 12/18/21 09:05 DL [id number] 12/18/21 09:09 DL Document 12/25/21 08:58 AK [id number] 12/25/21 09:07 AK 12/18/21 12/25/21 09:05 08:58 Wound Center Nurse 1 #6 L Ischium -Current Size (cm) - Length 1 0.9 -Current Size (cm) - Width 2.1 2 -Current Size (cm) - Depth 0.1 0.2 -Total Square Cm 2.1 1.8 -Date of Last Picture (Recall this 12/25/21 field) -Photo Taken Yes Yes -Tunneling No -Undermining/Tunneling No -Circular Undermining No -Exudate Amt Medium Large -Exudate Type Serosanguineous Serosanguineous -Wound Margin Distinct, Distinct, Outline Outline Attached Attached -Granulation Amt Medium (34-66%) -Granulation Quality Pale,[place] -Necrosis Amt None Present (0 None Present (0 %) %) -Structure Exposed N/A N/A -Texture ([place]-wound Skin Appearance) Scarring No Abnormality, Assessed -Moisture ([place]-wound Skin Appearance) No Abnormality No Abnormality, Assessed -Color ([place]-wound Skin Appearance) No Abnormality No Abnormality, Assessed -Temperature ([place]-wound Skin No Abnormality Appearance) (Pt Warm) -Tenderness on Palpation ([place]-wound No Skin Appearance) -Ulcer Cleansing Soap and Water Rinsed/ Irrigated with Saline -Foul Odor after Cleansing No No -Anesthetic Used 4% Lidocaine 4% Lidocaine Solution Solution #5scrotum/R Groin Cluster -Current Size (cm) - Length 16 14.4 -Current Size (cm) - Width 13 8.4 -Current Size (cm) - Depth 0.7 1.8 -Total Square Cm 208 120.96 -Photo Taken Yes Yes -Tunneling No -Undermining/Tunneling No -Undermining/Tunneling Starts (O'clock 5 ) -Undermining/Tunneling Ends (O'clock) 6 -Maximum Distance (cm) 0.3 -Circular Undermining No -Change in Wound Grade/Stage No -Exudate Amt Medium Large -Exudate Type Serosanguineous Serosanguineous -Wound Margin Distinct, Distinct, Outline Outline Attached Attached -Granulation Amt Large (67-100%) Medium (34-66%) -Granulation Quality [place] -Slough/Fibrin Yes -Necrosis Amt Small (1-33%) Medium (34-66%) -Necrotic Tissue Type Adherent Slough Adherent Slough -Structure Exposed N/A N/A -Texture ([place]-wound Skin Appearance) Scarring No Abnormality, Assessed -Moisture ([place]-wound Skin Appearance) No Abnormality No Abnormality, Assessed -Color ([place]-wound Skin Appearance) No Abnormality No Abnormality, Assessed -Temperature ([place]-wound Skin No Abnormality Appearance) (Pt Warm) -Tenderness on Palpation ([place]-wound No No Skin Appearance) -Ulcer Cleansing Soap and Water Soap and Water -Foul Odor after Cleansing No No -Anesthetic Used 4% Lidocaine 5% Lidocaine Solution Gel Lower Limb Edema Present No WC - Nurse 2 - General Ulcer CM Notes Start: 12/18/21 09:05 Freq: Status: Active Protocol: Activity Type Activity Date Activity User E-sign Co-sign Detail Recorded Client Recorded Date Recorded By Document 12/18/21 09:17 [id number] 12/18/21 09:28 Document 12/25/21 09:27 [id number] 12/25/21 09:34 12/18/21 12/25/21 09:17 09:27 Wound Center Nurse 2 #6 L Ischium -Time 09:18 09:27 -Correct Patient Yes Yes -Correct Side, Site, Position Yes Yes -Correct Procedure Yes Yes -Procedure Performed Yes Yes -Type of Procedure Debridement Debridement -Clinical Debridement Subcutaneous Subcutaneous -Tissue Removed Subcutaneous Subcutaneous -Post Debridement (cm) - Length 1.8 0.8 -Post Debridement (cm) - Width 2.2 2.0 -Post Debridement (cm) - Depth 0.1 0.1 -Total Square (Post) (cm) 3.96 1.60 -Area of Debridement (cm) - Length 1.8 0.8 -Area of Debridement (cm) - Width 2.2 2.0 -Total Square (Area) (cm) 3.96 1.60 -Tunneling No No -Undermining/Tunneling No No -Circular Undermining No No -Wound/Ulcer Outcome Not Healed Not Healed -Ulcer Cleansing Rinsed/ Rinsed/ Irrigated with Irrigated with Saline Saline -Foul Odor after Cleansing No No -Bioengineered Tissue No No -Bleeding Controlled with Pressure Pressure -Treatment Response Procedure Procedure Tolerated Well Tolerated Well -Offloading No No -Debridement - Subq, 1st 20sq cm Yes Yes #5scrotum/R Groin Cluster -Time 09:18 09:27 -Correct Patient Yes Yes -Correct Side, Site, Position Yes Yes -Correct Procedure Yes Yes -Procedure Performed Yes Yes -Type of Procedure Debridement Debridement -Clinical Debridement Muscle / Fascia Muscle / Fascia -Tissue Removed Muscle,Fascia Muscle -Post Debridement (cm) - Length 13.5 14.0 -Post Debridement (cm) - Width 12.5 8.5 -Post Debridement (cm) - Depth 2.0 2.0 -Total Square (Post) (cm) 168.75 119.00 -Area of Debridement (cm) - Length 13.5 14.0 -Area of Debridement (cm) - Width 12.5 8.5 -Total Square (Area) (cm) 168.75 119.00 -Tunneling Yes Yes -Tunneling Position (O'clock) 6 6 -Tunneling Distance (cm) 0.8 0.6 -Undermining/Tunneling No No -Circular Undermining No No -Wound/Ulcer Outcome Not Healed Not Healed -Ulcer Cleansing Rinsed/ Rinsed/ Irrigated with Irrigated with Saline Saline -Foul Odor after Cleansing No No -Bioengineered Tissue No No -Bleeding Controlled with Pressure,Silver Pressure,Silver Nitrate Nitrate -Treatment Response Procedure Procedure Tolerated Well Tolerated Well -Offloading No No -Debridement - Muscle / Fascia, 1st Yes Yes 20sq cm -Debridement, Muscle/Fascia, ea addt'l 8 5 20sq cm or part thereof Pain Scale: 0-10 Numeric Is Patient Pain Free? Yes Yes WC - Nurse 3 - General Ulcer D/C NN Start: 12/18/21 09:05 Freq: Status: Active Protocol: Activity Type Activity Date Activity User E-sign Co-sign Detail Recorded Client Recorded Date Recorded By Document 12/18/21 09:34 RB [id number] 12/18/21 09:35 RB Document 12/25/21 09:45 AK [id number] 12/25/21 09:46 AK 12/18/21 12/25/21 09:34 09:45 Wound Care Nurse 3 #6 L Ischium -Ulcer Cleansing Rinsed/ Rinsed/ Irrigated with Irrigated with Saline Saline -Foul Odor after Cleansing No -Negative Pressure Wound Therapy N/A -Primary Dressing Applied Silvercel Silvercel -Primary Dressing Covered/Secured with Dry Gauze, Dry Gauze & Secured with Roll Gauze, Tape Secured with Tape -[place]cel 1 1 #5scrotum/R Groin Cluster -Ulcer Cleansing Rinsed/ Irrigated with Saline -Foul Odor after Cleansing No -Negative Pressure Wound Therapy N/A -Other Dressing saline dakins moistened gauze -Primary Dressing Covered/Secured with Dry Gauze, Dry Gauze & Secured with Roll Gauze, Tape Secured with Tape Treatment Response Procedure Tolerated Well Pain Scale: 0-10 Numeric Is Patient Pain Free? Yes No WC - Visit Discharge Discharge Condition Stable Stable Ambulatory Status Ambulatory Ambulatory Transportation Private Auto Private Auto Accompanied by Medication Reconcilliation completed & No Yes provided to patient/care provider Clinical Summary of Care Provided Yes Yes Additional Wound Wound debrided: ischial ulcer Laterality: Left Wound Grade/Stage: Stage II Type of Debridement: Excisional debridement Depth: Down to and including healthy tissue and in the subcutaneous layer Percentage of wound debrided: 100 Instrument Used: 5mm curette Tissue Removed: Devitalized tissue and slough Severity: Fat Layer Exposed Amount of bleeding with debridement: Mild Bleeding Controlled with: Compression and gauze Patient tolerated procedure: Patient tolerated procedure well Assessment/Plan Assessment/Plan (1) Open wound of scrotum with complication: CODE(S): S31.30XA - Unspecified open wound of scrotum and testes, initial encounter (2) Open wound of buttock with complication: CODE(S): S31.809A - Unspecified open wound of unspecified buttock, initial encounter (3) Non-healing open wound of right groin: CODE(S): S31.103A - Unspecified open wound of abdominal wall, right lower quadrant without penetration into peritoneal cavity, initial encounter (4) Chronic ulcer of buttock: CODE(S): L98.419 - Non-pressure chronic ulcer of buttock with unspecified severity (5) Suppurative hidradenitis: CODE(S): L73.2 - Hidradenitis suppurativa (6) Smoker: CODE(S): F17.200 - Nicotine dependence, unspecified, uncomplicated (7) Hypertension: CODE(S): I10 - Essential (primary) hypertension QUALIFIERS: Hypertension type: primary hypertension Qualified Code(s): I10 - Essential (primary) hypertension (8) Acute postoperative anemia due to expected blood loss: CODE(S): D62 - Acute posthemorrhagic anemia (9) Diabetes type 2, uncontrolled: CODE(S): E11.65 - Type 2 diabetes mellitus with hyperglycemia (10) Hypokalemia: CODE(S): E87.6 - Hypokalemia (11) Hemoglobin A1c greater than 8.0 percent: CODE(S): R73.09 - Other abnormal glucose (12) Elevated serum creatinine: CODE(S): R79.89 - Other specified abnormal findings of blood chemistry PLAN: Plan Patient was evaluated at the wound healing center. A subcutaneous debridement was performed to the left buttock/ischial ulcer only. Operative wound cultures from 11/23/21 positive for Streptococcus constellatus and Corynebacterium striatum. He was started on Cefdinir 300mg BID. Creatinine repeat on 11/27/21, which was down to 1.62 from 1.73 on 11/25/21. Also, repeat K+ 4.0. Patient restarted Plavix. Wound care - Saline moistened gauze for the first day after debridement then Dakin's 0.25% moistened covered by ABD/super absorber daily and prn to right groin. Left ischial ulcer, place aquacel-ag covered with gauze daily. Encouraged increase protein intake and increase Vitamin C intake. Will need supplemental protein to help heal this wound. He is states he has enough pain medication. His pain was better controlled since he was less active over the past week. Encouraged ambulation but not to over do activity, such as cutting wood. He is to complete the antibiotics that were prescribed upon discharge. Encouraged patient to stop smoking as it may have deleterious effects on wound healing. Will order Percocet (21 tabs) to help his pain control. PDMP reviewed. Follow up one week. Call or come in sooner if develop any questions or concerns.
[2022-01-01 08:44] VITALS: BP 189/75; PULSE 90; RESP 16; TEMP 36.2
--- NOTE | 2022-01-01 09:51 | PN.PCM_ITS ---
History of Present Illness Date of Service: 01/01/22 Chief Complaint: Excision of hidradenitis of right inguinal, scrotal and p erineal area History of Wound: 56 year old male who is known to me. He has a history significant for hidradenitis, DM type II, HTN, CAD, arterial insufficiency, and smoker. He had surgery on 11/23/21 for 1. Surgical preparation right inguinal area with excision suppurative hidradenitis abscess (112 cm2, and 192 cm2 total). 2. Surgical preparation right scrotum with incision and drainage and excision suppurative hidradenitis abscess (50 cm2, and 192 cm2 total). 3. Surgical preparation right perineal area with excision suppurative hidradenitis abscess (30 cm2, and 192 cm2 total). Operative wound cultures from 11/23/21 positive for Streptococcus constellatus and Corynebacterium striatum. He was started on Cefdinir 300mg BID. Creatinine repeat today, 11/27/21, down to 1.62 from 1.73 on 11/25/21. Wound care - Dakin's 0.25% moistened gauze covered by ABD/super absorber daily and prn to right groin. Left ischial ulcer reopened, place aquacel-ag covered with gauze daily. Today he denies fevers, chills, nausea and vomiting. He states that he has a good appetite. Other history: Surgery 03/22/20 - 1. Surgical preparation left inguinal area with excision hidradenitis (315 cm2 total wound). 2. Surgical preparation perineal area with excision hidradenitis (315 cm2 total wound). 3. Surgical preparation base left scrotum with incision and drainage and excision hidradenitis (315 cm2 total wound). Operative culture from 03/22/20 - Enterococcus faecalis and Streptococcus group F, Anaerobic cocci and Prevotella bivia. He was treated with Linezolid and Flagyl and has completed them. He saw Dr. Kasey live had an angioplasty of some of his vessels in his legs. Patient admitted to the hospital for increased redness and swelling of his left groin and buttocks on 09/27/20. Patient was started on IV Vancomycin, Levaquin and Flagyl by ID. Surgery 09/29/20 - 1. Surgical preparation left perianal area with excision hidradenitis abscess (144 cm2). 2. Surgical preparation left posterior thigh with incision and drainage and excisional debridement hidradenitis abscess (96 cm2). Operative cultures from 09/29/20 positive for Streptococcus constellatus, Corynebacterium striatum, Anaerobic cocci, and Prevotella species. Pathology of left perianal and left posterior thigh abscess showed pieces of skin with underlying tisse with acute and chronic inflammation, granulation tissue reaction and abscess formation. 10/01/20 - Laparoscopic sigmoid colostomy placed by Dr. Osorio due to the complicated perineal wound secondary to hidradenitis suppurativa status post excision. Progress of Wound: Right groin wound has improved. Wound bed is pink. No active bleeding and is smaller in size. The tunneling and undermining are slightly improved. He is experiencing increased pain with the Dakin's solution on the day of debridement, so he is using saline moistened gauze on the day he is debrided, then Dakin's moistened gauze daily after that. His pain is manageable using the Percocet. Left ischial ulcer is stable, the wound bed is pink with some dried scabbing surrounding the edges. Objective Data Objective Data Vital Signs: Vital Signs Temp Pulse Resp BP O2 Del Method 97.2 F L 90 16 189/75 H Room Air 01/01/22 08:44 01/01/22 08:44 01/01/22 08:44 01/01/22 08:44 01/01/22 08:44 Oxygen Delivery Method Room Air Charges/Coding Procedures Integumentary [id number]: [id number] Global Visit Debridement Note Debridement Note Wound debrided: groin, scrotum, perineal area Laterality: Right Wound Grade/Stage: Stage IV Type of Debridement: Excisional debridement Anesthesia Used: 5% Lidocaine Gel Depth: Down to and including healthy tissue, in the subcutaneous layer and to muscle Percentage of wound debrided: 100 Instrument Used: 7mm curette Tissue Removed: Devitalized tissue and slough Severity: Fat Layer Exposed Amount of bleeding with debridement: Mild Bleeding Controlled with: Pressure and Compression and gauze Patient tolerated procedure: Patient tolerated procedure well Post-Debridement Measurements and Additional Note: Post-Debridement Measurements/Treatment WC - Nurse 1 - General Ulcer Assessment Start: 12/18/21 09:05 Freq: Status: Active Protocol: BEKA.DEANAT Activity Type Activity Date Activity User E-sign Co-sign Detail Recorded Client Recorded Date Recorded By Document 12/18/21 09:05 DL [id number] 12/18/21 09:09 DL Document 12/25/21 08:58 AK [id number] 12/25/21 09:07 AK Document 01/01/22 08:44 [facility] [id number] 01/01/22 08:53 BM 12/18/21 12/25/21 01/01/22 09:05 08:58 08:44 - Today's Visit Information Type of service Follow-up Visit Follow-up Visit Follow-up Visit (Physician/SPECIAL DELIVERY MAIL CARRIER (Physician/SPECIAL DELIVERY MAIL CARRIER (Physician/SPECIAL DELIVERY MAIL CARRIER ) ) ) Arrival Mode Ambulatory Ambulatory Ambulatory Transfer Assistance None None Accompanied by Patient Identification Verified (Name & Yes Yes Yes ) Patient Requires Transmission-Based No No No Precautions Safety Precautions NA Finger Stick Blood Sugar(mg/dl) (if not checked indicated): Blood Sugar Stated by Patient Vital Signs Temperature (97.8 F-99.1 F) 97.3 F L 97.9 F 97.2 F L Temperature Source Temporal Temporal Temporal Pulse Rate (60-100) 82 72 90 Pulse Location Monitor Monitor Respiratory Rate (12-18) 18 16 Respiratory rate source Observation Observation Oxygen Delivery Method Room Air Blood Pressure (90/60-120/80) 201/116 H 195/84 H 189/75 H Blood Pressure Mean (mm Hg) 144 121 113 Source Monitor Monitor Position Sitting Blood Pressure Location Left Arm History Since Last Visit- (Skip if this is Patient's initial visit) Have you changed medications since your No Yes last visit? Any new allergies or adverse reactions No No Had a fall/change in ADL's that may No No increase risk of falls Signs or symptoms of abuse and/or No No neglect since last visit Have you been in the hospital since your No Yes last visit? Has dressing in place as prescribed Yes Yes Has compression in place as prescribed N/A N/A Has offloadiing in place as prescribed N/A N/A Experienced any changes in pain level or No No management Left Footwear Regular Shoe Right Footwear Regular Shoe Pain Scale: 0-10 Numeric Is Patient Pain Free? Yes Yes Yes - Nurse 1 - General Ulcer Measurement Start: 12/18/21 09:05 Freq: Status: Active Protocol: Activity Type Activity Date Activity User E-sign Co-sign Detail Recorded Client Recorded Date Recorded By Document 12/18/21 09:05 DL [id number] 12/18/21 09:09 DL Document 12/25/21 08:58 AK [id number] 12/25/21 09:07 AK Document 01/01/22 08:44 BM [id number] 01/01/22 08:53 BMF 12/18/21 12/25/21 01/01/22 09:05 08:58 08:44 Wound Center Nurse 1 #6 L Ischium -Combined with other wound No -Current Size (cm) - Length 1 0.9 1 -Current Size (cm) - Width 2.1 2 2 -Current Size (cm) - Depth 0.1 0.2 0.1 -Total Square Cm 2.1 1.8 2 -Date of Last Picture (Recall this 12/25/21 01/01/22 field) -Photo Taken Yes Yes Yes -Epithelialization Small 1-33% -Tunneling No No -Undermining/Tunneling No No -Circular Undermining No No -Exudate Amt Medium Large Small -Exudate Type Serosanguineous Serosanguineous Serosanguineous -Wound Margin Distinct, Distinct, Flat & Intact Outline Outline Attached Attached -Granulation Amt Medium (34-66%) Large (67-100%) -Granulation Quality Pale,[place] Red -Slough/Fibrin No -Necrosis Amt None Present (0 None Present (0 None Present (0 %) %) %) -Structure Exposed N/A N/A -Texture ([place]imbola-wound Skin Appearance) Scarring No Abnormality, Assessed, Assessed Scarring -Moisture ([place]-wound Skin Appearance) No Abnormality No Abnormality, Assessed Assessed -Color ([place]-wound Skin Appearance) No Abnormality No Abnormality, Assessed Assessed -Temperature ([place]-wound Skin No Abnormality No Abnormality Appearance) (Pt Warm) (Pt Warm) -Tenderness on Palpation ([place]-wound No No Skin Appearance) -Ulcer Cleansing Soap and Water Rinsed/ Soap and Water Irrigated with Saline -Foul Odor after Cleansing No No No -Anesthetic Used 4% Lidocaine 4% Lidocaine 4% Lidocaine Solution Solution Solution #5scrotum/R Groin Cluster -Combined with other wound No -Current Size (cm) - Length 16 14.4 13 -Current Size (cm) - Width 13 8.4 8 -Current Size (cm) - Depth 0.7 1.8 0.1 -Total Square Cm 208 120.96 104 -Date of Last Picture (Recall this 01/01/22 field) -Photo Taken Yes Yes Yes -Epithelialization Small 1-33% -Tunneling No No -Undermining/Tunneling No No -Undermining/Tunneling Starts (O'clock 5 ) -Undermining/Tunneling Ends (O'clock) 6 -Maximum Distance (cm) 0.3 -Circular Undermining No No -Change in Wound Grade/Stage No -Exudate Amt Medium Large Large -Exudate Type Serosanguineous Serosanguineous Yellow/Green -Wound Margin Distinct, Distinct, Distinct, Outline Outline Outline Attached Attached Attached -Granulation Amt Large (67-100%) Medium (34-66%) Large (67-100%) -Granulation Quality [place] Red -Slough/Fibrin Yes Yes -Necrosis Amt Small (1-33%) Medium (34-66%) Small (1-33%) -Necrotic Tissue Type Adherent Slough Adherent Slough Adherent Slough -Structure Exposed N/A N/A -Texture ([place]-wound Skin Appearance) Scarring No Abnormality, Assessed, Assessed Scarring -Moisture ([place]-wound Skin Appearance) No Abnormality No Abnormality, Assessed Assessed -Color ([place]-wound Skin Appearance) No Abnormality No Abnormality, Assessed Assessed -Temperature ([place]-wound Skin No Abnormality No Abnormality Appearance) (Pt Warm) (Pt Warm) -Tenderness on Palpation ([place]-wound No No No Skin Appearance) -Ulcer Cleansing Soap and Water Soap and Water Soap and Water -Foul Odor after Cleansing No No Yes, Due to Product Use -Anesthetic Used 4% Lidocaine 5% Lidocaine 4% Lidocaine Solution Gel Solution Lower Limb Edema Present No WC - Nurse 2 - General Ulcer CM Notes Start: 12/18/21 09:05 Freq: Status: Active Protocol: Activity Type Activity Date Activity User E-sign Co-sign Detail Recorded Client Recorded Date Recorded By Document 12/18/21 09:17 LIZETTE [id number] 12/18/21 09:28 Document 12/25/21 09:27 [id number] 12/25/21 09:34 Document 01/01/22 09:13 [id number] 01/01/22 09:18 12/18/21 12/25/21 01/01/22 09:17 09:27 09:13 Wound Center Nurse 2 #6 L Ischium -Time 09:18 09:27 09:13 -Correct Patient Yes Yes Yes -Correct Side, Site, Position Yes Yes Yes -Correct Procedure Yes Yes Yes -Procedure Performed Yes Yes Yes -Type of Procedure Debridement Debridement Debridement -Clinical Debridement Subcutaneous Subcutaneous Subcutaneous -Tissue Removed Subcutaneous Subcutaneous Subcutaneous -Post Debridement (cm) - Length 1.8 0.8 1.2 -Post Debridement (cm) - Width 2.2 2.0 2 -Post Debridement (cm) - Depth 0.1 0.1 0.1 -Total Square (Post) (cm) 3.96 1.60 2.4 -Area of Debridement (cm) - Length 1.8 0.8 1.2 -Area of Debridement (cm) - Width 2.2 2.0 2 -Total Square (Area) (cm) 3.96 1.60 2.4 -Tunneling No No No -Undermining/Tunneling No No -Circular Undermining No No No -Wound/Ulcer Outcome Not Healed Not Healed Not Healed -Ulcer Cleansing Rinsed/ Rinsed/ Rinsed/ Irrigated with Irrigated with Irrigated with Saline Saline Saline -Foul Odor after Cleansing No No No -Bioengineered Tissue No No No -Bleeding Controlled with Pressure Pressure Pressure -Treatment Response Procedure Procedure Procedure Tolerated Well Tolerated Well Tolerated Well -Offloading No No No -Debridement - Subq, 1st 20sq cm Yes Yes Yes #5scrotum/R Groin Cluster -Time 09:18 09:27 09:14 -Correct Patient Yes Yes Yes -Correct Side, Site, Position Yes Yes Yes -Correct Procedure Yes Yes Yes -Procedure Performed Yes Yes Yes -Type of Procedure Debridement Debridement Debridement -Clinical Debridement Muscle / Fascia Muscle / Fascia Muscle / Fascia -Tissue Removed Muscle,Fascia Muscle Muscle -Post Debridement (cm) - Length 13.5 14.0 13.5 -Post Debridement (cm) - Width 12.5 8.5 8 -Post Debridement (cm) - Depth 2.0 2.0 2.4 -Total Square (Post) (cm) 168.75 119.00 108.0 -Area of Debridement (cm) - Length 13.5 14.0 13.5 -Area of Debridement (cm) - Width 12.5 8.5 8 -Total Square (Area) (cm) 168.75 119.00 108.0 -Tunneling Yes Yes No -Tunneling Position (O'clock) 6 6 -Tunneling Distance (cm) 0.8 0.6 -Undermining/Tunneling No No No -Circular Undermining No No No -Wound/Ulcer Outcome Not Healed Not Healed Not Healed -Ulcer Cleansing Rinsed/ Rinsed/ Wound Cleanser Irrigated with Irrigated with Saline Saline -Foul Odor after Cleansing No No -Bioengineered Tissue No No No -Bleeding Controlled with Pressure,Silver Pressure,Silver Pressure Nitrate Nitrate -Treatment Response Procedure Procedure Procedure Tolerated Well Tolerated Well Tolerated Well -Offloading No No No -Debridement - Muscle / Fascia, 1st Yes Yes Yes 20sq cm -Debridement, Muscle/Fascia, ea addt'l 8 5 5 20sq cm or part thereof Pain Scale: 0-10 Numeric Is Patient Pain Free? Yes Yes Yes WC - Nurse 3 - General Ulcer D/C NN Start: 12/18/21 09:05 Freq: Status: Active Protocol: Activity Type Activity Date Activity User E-sign Co-sign Detail Recorded Client Recorded Date Recorded By Document 12/18/21 09:34 [id number] 12/18/21 09:35 RB Document 12/25/21 09:45 DC [id number] 12/25/21 09:46 DC Document 01/01/22 09:28 [facility] [id number] 01/01/22 09:29 [facility] 12/18/21 12/25/21 01/01/22 09:34 09:45 09:28 Wound Care Nurse 3 #6 L Ischium -Ulcer Cleansing Rinsed/ Rinsed/ Rinsed/ Irrigated with Irrigated with Irrigated with Saline Saline Saline -Foul Odor after Cleansing No No -Negative Pressure Wound Therapy N/A -Primary Dressing Applied Silvercel Silvercel Promogran Jacqueline Matter -Other Dressing DRSG PER [place] PLASTIC SHAPER -Primary Dressing Covered/Secured with Dry Gauze, Dry Gauze & Dry Gauze Secured with Roll Gauze, Tape Secured with Tape -Other Covering SECURED W/ [place] -Promogran Jacqueline Matter 1 -Silvercel 1 1 #5scrotum/R Groin Cluster -Ulcer Cleansing Rinsed/ Rinsed/ Irrigated with Irrigated with Saline Saline -Foul Odor after Cleansing No No -Negative Pressure Wound Therapy N/A -Other Dressing saline dakins MOIST TO DRY moistened gauze DRSG PER [place] PLASTIC SHAPER -Primary Dressing Covered/Secured with Dry Gauze, Dry Gauze & Secured with Secured with Roll Gauze, Tape Tape Secured with Tape -Other Covering ABD Treatment Response Procedure Procedure Tolerated Well Tolerated Well Pain Scale: 0-10 Numeric Is Patient Pain Free? Yes No Yes WC - Visit Discharge Discharge Condition Stable Stable Stable Ambulatory Status Ambulatory Ambulatory Ambulatory Transportation Private Auto Private Auto Private Auto Accompanied by Medication Reconcilliation completed & No Yes provided to patient/care provider Clinical Summary of Care Provided Yes Yes Facility Type [facility] Additional Wound Wound debrided: ischial ulcer Laterality: Left Wound Grade/Stage: Stage II Type of Debridement: Excisional debridement Depth: Down to and including healthy tissue and in the subcutaneous layer Percentage of wound debrided: 100 Instrument Used: 5mm curette Tissue Removed: Devitalized tissue and slough Severity: Fat Layer Exposed Amount of bleeding with debridement: Mild Bleeding Controlled with: Pressure and Compression and gauze Patient tolerated procedure: Patient tolerated procedure well Assessment/Plan Assessment/Plan (1) Open wound of scrotum with complication: CODE(S): S31.30XA - Unspecified open wound of scrotum and testes, initial encounter (2) Open wound of buttock with complication: CODE(S): S31.809A - Unspecified open wound of unspecified buttock, initial encounter (3) Non-healing open wound of right groin: CODE(S): S31.103A - Unspecified open wound of abdominal wall, right lower quadrant without penetration into peritoneal cavity, initial encounter (4) Chronic ulcer of buttock: CODE(S): L98.419 - Non-pressure chronic ulcer of buttock with unspecified severity (5) Suppurative hidradenitis: CODE(S): L73.2 - Hidradenitis suppurativa (6) Smoker: CODE(S): F17.200 - Nicotine dependence, unspecified, uncomplicated (7) Hypertension: CODE(S): I10 - Essential (primary) hypertension QUALIFIERS: Hypertension type: primary hypertension Qualified Code(s): I10 - Essential (primary) hypertension (8) Acute postoperative anemia due to expected blood loss: CODE(S): D62 - Acute posthemorrhagic anemia (9) Diabetes type 2, uncontrolled: CODE(S): E11.65 - Type 2 diabetes mellitus with hyperglycemia (10) Hypokalemia: CODE(S): E87.6 - Hypokalemia (11) Hemoglobin A1c greater than 8.0 percent: CODE(S): R73.09 - Other abnormal glucose (12) Elevated serum creatinine: CODE(S): R79.89 - Other specified abnormal findings of blood chemistry PLAN: Plan Patient was evaluated at the wound healing center. A subcutaneous debridement was performed to the left buttock/ischial ulcer only. Operative wound cultures from 11/23/21 positive for Streptococcus constellatus and Corynebacterium striatum. He was started on Cefdinir 300mg BID. Creatinine repeat on 11/27/21, which was down to 1.62 from 1.73 on 11/25/21. Also, repeat K+ 4.0. Patient restarted Plavix. Wound care - Saline moistened gauze on the day of debridement then Dakin's 0.25% moistened covered by ABD/super absorber daily and prn to right groin. Left ischial ulcer, will change to moistened Jacqueline covered with gauze daily, to see if this will help improve the ulcer. Encouraged increase protein intake and increase Vitamin C intake. Will need supplemental protein to help heal this wound. Encouraged ambulation but not to over do activity, such as cutting wood. He is to complete the antibiotics that were prescribed upon discharge. Encouraged patient to stop smoking as it may have deleterious effects on wound healing. Will order Percocet (21 tabs) to help his pain control. PDMP reviewed. Follow up one week. Call or come in sooner if develop any questions or concerns.
[2022-01-08 08:47] VITALS: BP 193/73; PULSE 86
--- NOTE | 2022-01-08 11:06 | PN.PCM_ITS ---
History of Present Illness Date of Service: 01/08/22 Chief Complaint: Excision of hidradenitis of right inguinal, scrotal and p erineal area History of Wound: 56 year old male who is known to me. He has a history significant for hidradenitis, DM type II, HTN, CAD, arterial insufficiency, and smoker. He had surgery on 11/23/21 for 1. Surgical preparation right inguinal area with excision suppurative hidradenitis abscess (112 cm2, and 192 cm2 total). 2. Surgical preparation right scrotum with incision and drainage and excision suppurative hidradenitis abscess (50 cm2, and 192 cm2 total). 3. Surgical preparation right perineal area with excision suppurative hidradenitis abscess (30 cm2, and 192 cm2 total). Operative wound cultures from 11/23/21 positive for Streptococcus constellatus and Corynebacterium striatum. He was started on Cefdinir 300mg BID. Creatinine repeat today, 11/27/21, down to 1.62 from 1.73 on 11/25/21. Wound care - Dakin's 0.25% moistened gauze covered by ABD/super absorber daily and prn to right groin. Left ischial ulcer reopened, place aquacel-ag covered with gauze daily. Today he denies fevers, chills, nausea and vomiting. He states that he has a good appetite. Other history: Surgery 03/22/20 - 1. Surgical preparation left inguinal area with excision hidradenitis (315 cm2 total wound). 2. Surgical preparation perineal area with excision hidradenitis (315 cm2 total wound). 3. Surgical preparation base left scrotum with incision and drainage and excision hidradenitis (315 cm2 total wound). Operative culture from 03/22/20 - Enterococcus faecalis and Streptococcus group F, Anaerobic cocci and Prevotella bivia. He was treated with Linezolid and Flagyl and has completed them. He saw Dr. Kasey live had an angioplasty of some of his vessels in his legs. Patient admitted to the hospital for increased redness and swelling of his left groin and buttocks on 09/27/20. Patient was started on IV Vancomycin, Levaquin and Flagyl by ID. Surgery 09/29/20 - 1. Surgical preparation left perianal area with excision hidradenitis abscess (144 cm2). 2. Surgical preparation left posterior thigh with incision and drainage and excisional debridement hidradenitis abscess (96 cm2). Operative cultures from 09/29/20 positive for Streptococcus constellatus, Corynebacterium striatum, Anaerobic cocci, and Prevotella species. Pathology of left perianal and left posterior thigh abscess showed pieces of skin with underlying tisse with acute and chronic inflammation, granulation tissue reaction and abscess formation. 10/01/20 - Laparoscopic sigmoid colostomy placed by Dr. Osorio due to the complicated perineal wound secondary to hidradenitis suppurativa status post excision. Progress of Wound: Right groin wound has improved. Wound bed is pink. No active bleeding and is smaller in size. The tunneling and undermining are slightly improved. On the proximal edge of the ulcer on the scrotal area there is a new area that has some depth. He is experiencing increased pain with the Dakin's solution on the day of debridement, so he is using saline moistened gauze on the day he is debrided, then Dakin's moistened gauze daily after that. His pain is manageable using the Percocet. Left ischial ulcer is slightly smaller. Objective Data Objective Data Vital Signs: Vital Signs Temp Pulse Resp BP O2 Del Method 97.2 F L 86 16 193/73 H Room Air 01/01/22 08:44 01/08/22 08:47 01/01/22 08:44 01/08/22 08:47 01/01/22 08:44 Oxygen Delivery Method Room Air Charges/Coding Procedures Integumentary 111xxx-113xx: [id number] Global Visit Debridement Note Debridement Note Wound debrided: groin, scrotum, perineal area Laterality: Right Wound Grade/Stage: Stage IV Type of Debridement: Excisional debridement Anesthesia Used: 5% Lidocaine Gel Depth: Down to and including healthy tissue, in the subcutaneous layer and to muscle Percentage of wound debrided: 100 Instrument Used: 7mm curette Tissue Removed: Devitalized tissue and slough Severity: Fat Layer Exposed Amount of bleeding with debridement: Mild Bleeding Controlled with: Pressure and Compression and gauze Patient tolerated procedure: Patient tolerated procedure well Post-Debridement Measurements and Additional Note: Post-Debridement Measurements/Treatment WC - Nurse 1 - General Ulcer Assessment Start: 12/18/21 09:05 Freq: Status: Active Protocol: WC.LOWEXT Activity Type Activity Date Activity User E-sign Co-sign Detail Recorded Client Recorded Date Recorded By Document 12/18/21 09:05 DL [id number] 12/18/21 09:09 DL Document 12/25/21 08:58 AK [id number] 12/25/21 09:07 AK Document 01/01/22 08:44 BMF [id number] 01/01/22 08:53 BMF Document 01/08/22 08:47 KR [id number] 01/08/22 08:53 KR 12/18/21 12/25/21 01/01/22 09:05 08:58 08:44 WC - Today's Visit Information Type of service Follow-up Visit Follow-up Visit Follow-up Visit (Physician/DIGITAL MARKETING APPRENTICE (Physician/DIGITAL MARKETING APPRENTICE (Physician/DIGITAL MARKETING APPRENTICE ) ) ) Arrival Mode Ambulatory Ambulatory Ambulatory Transfer Assistance None None Accompanied by Patient Identification Verified (Name & Yes Yes Yes ) Patient Requires Transmission-Based No No No Precautions Safety Precautions NA Finger Stick Blood Sugar(mg/dl) (if not checked indicated): Blood Sugar Stated by Patient Vital Signs Temperature (97.8 F-99.1 F) 97.3 F L 97.9 F 97.2 F L Temperature Source Temporal Temporal Temporal Pulse Rate (60-100) 82 72 90 Pulse Location Monitor Monitor Respiratory Rate (12-18) 18 16 Respiratory rate source Observation Observation Oxygen Delivery Method Room Air Blood Pressure (90/60-120/80) 201/116 H 195/84 H 189/75 H Blood Pressure Mean (mm Hg) 144 121 113 Source Monitor Monitor Position Sitting Blood Pressure Location Left Arm History Since Last Visit- (Skip if this is Patient's initial visit) Have you changed medications since your No Yes last visit? Any new allergies or adverse reactions No No Had a fall/change in ADL's that may No No increase risk of falls Signs or symptoms of abuse and/or No No neglect since last visit Have you been in the hospital since your No Yes last visit? Has dressing in place as prescribed Yes Yes Has compression in place as prescribed N/A N/A Has offloadiing in place as prescribed N/A N/A Experienced any changes in pain level or No No management Left Footwear Regular Shoe Right Footwear Regular Shoe Pain Scale: 0-10 Numeric Is Patient Pain Free? Yes Yes Yes 01/08/22 08:47 WC - Today's Visit Information Type of service Follow-up Visit (Physician/DIGITAL MARKETING APPRENTICE ) Arrival Mode Ambulatory Transfer Assistance Accompanied by Patient Identification Verified (Name & Yes ) Patient Requires Transmission-Based Precautions Safety Precautions Finger Stick Blood Sugar(mg/dl) (if indicated): Blood Sugar Vital Signs Temperature (97.8 F-99.1 F) Temperature Source Temporal Pulse Rate (60-100) 86 Pulse Location Monitor Respiratory Rate (12-18) Respiratory rate source Oxygen Delivery Method Blood Pressure (90/60-120/80) 193/73 H Blood Pressure Mean (mm Hg) 113 Source Monitor Position Semi-Fowlers Blood Pressure Location Right Arm History Since Last Visit- (Skip if this is Patient's initial visit) Have you changed medications since your No last visit? Any new allergies or adverse reactions No Had a fall/change in ADL's that may No increase risk of falls Signs or symptoms of abuse and/or No neglect since last visit Have you been in the hospital since your No last visit? Has dressing in place as prescribed Yes Has compression in place as prescribed N/A Has offloadiing in place as prescribed N/A Experienced any changes in pain level or No management Left Footwear Regular Shoe Right Footwear Regular Shoe Pain Scale: 0-10 Numeric Is Patient Pain Free? Yes WC - Nurse 1 - General Ulcer Measurement Start: 12/18/21 09:05 Freq: Status: Active Protocol: Activity Type Activity Date Activity User E-sign Co-sign Detail Recorded Client Recorded Date Recorded By Document 12/18/21 09:05 DL [id number] 12/18/21 09:09 DL Document 12/25/21 08:58 AK [id number] 12/25/21 09:07 AK Document 01/01/22 08:44 BMF [id number] 01/01/22 08:53 BMF Document 01/08/22 08:47 KR [id number] 01/08/22 08:53 KR 12/18/21 12/25/21 01/01/22 09:05 08:58 08:44 Wound Center Nurse 1 #6 L Ischium -Combined with other wound No -Current Size (cm) - Length 1 0.9 1 -Current Size (cm) - Width 2.1 2 2 -Current Size (cm) - Depth 0.1 0.2 0.1 -Total Square Cm 2.1 1.8 2 -Date of Last Picture (Recall this 12/25/21 01/01/22 field) -Photo Taken Yes Yes Yes -Epithelialization Small 1-33% -Tunneling No No -Undermining/Tunneling No No -Circular Undermining No No -Exudate Amt Medium Large Small -Exudate Type Serosanguineous Serosanguineous Serosanguineous -Wound Margin Distinct, Distinct, Flat & Intact Outline Outline Attached Attached -Granulation Amt Medium (34-66%) Large (67-100%) -Granulation Quality Pale,Vaiva Vo Vaiva Vo Red -Slough/Fibrin No -Necrosis Amt None Present (0 None Present (0 None Present (0 %) %) %) -Structure Exposed N/A N/A -Texture (Abimbola-wound Skin Appearance) Scarring No Abnormality, Assessed, Assessed Scarring -Moisture (Abimbola-wound Skin Appearance) No Abnormality No Abnormality, Assessed Assessed -Color (Abimbola-wound Skin Appearance) No Abnormality No Abnormality, Assessed Assessed -Temperature (Abimbola-wound Skin No Abnormality No Abnormality Appearance) (Pt Warm) (Pt Warm) -Tenderness on Palpation (Abimbola-wound No No Skin Appearance) -Ulcer Cleansing Soap and Water Rinsed/ Soap and Water Irrigated with Saline -Foul Odor after Cleansing No No No -Anesthetic Used 4% Lidocaine 4% Lidocaine 4% Lidocaine Solution Solution Solution #5scrotum/R Groin Cluster -Combined with other wound No -Current Size (cm) - Length 16 14.4 13 -Current Size (cm) - Width 13 8.4 8 -Current Size (cm) - Depth 0.7 1.8 0.1 -Total Square Cm 208 120.96 104 -Date of Last Picture (Recall this 01/01/22 field) -Photo Taken Yes Yes Yes -Epithelialization Small 1-33% -Tunneling No No -Undermining/Tunneling No No -Undermining/Tunneling Starts (O'clock 5 ) -Undermining/Tunneling Ends (O'clock) 6 -Maximum Distance (cm) 0.3 -Circular Undermining No No -Change in Wound Grade/Stage No -Exudate Amt Medium Large Large -Exudate Type Serosanguineous Serosanguineous Yellow/Green -Wound Margin Distinct, Distinct, Distinct, Outline Outline Outline Attached Attached Attached -Granulation Amt Large (67-100%) Medium (34-66%) Large (67-100%) -Granulation Quality Vaiva Vo Vaiva Vo Red -Slough/Fibrin Yes Yes -Necrosis Amt Small (1-33%) Medium (34-66%) Small (1-33%) -Necrotic Tissue Type Adherent Slough Adherent Slough Adherent Slough -Structure Exposed N/A N/A -Texture (Abimbola-wound Skin Appearance) Scarring No Abnormality, Assessed, Assessed Scarring -Moisture (Abimbola-wound Skin Appearance) No Abnormality No Abnormality, Assessed Assessed -Color (Abimbola-wound Skin Appearance) No Abnormality No Abnormality, Assessed Assessed -Temperature (Abimbola-wound Skin No Abnormality No Abnormality Appearance) (Pt Warm) (Pt Warm) -Tenderness on Palpation (Abmibola-wound No No No Skin Appearance) -Ulcer Cleansing Soap and Water Soap and Water Soap and Water -Foul Odor after Cleansing No No Yes, Due to Product Use -Anesthetic Used 4% Lidocaine 5% Lidocaine 4% Lidocaine Solution Gel Solution Lower Limb Edema Present No 01/08/22 08:47 Wound Center Nurse 1 #6 L Ischium -Combined with other wound -Current Size (cm) - Length 0.8 -Current Size (cm) - Width 1.6 -Current Size (cm) - Depth 0.2 -Total Square Cm 1.28 -Date of Last Picture (Recall this field) -Photo Taken -Epithelialization -Tunneling -Undermining/Tunneling -Circular Undermining -Exudate Amt Large -Exudate Type Serosanguineous -Wound Margin Distinct, Outline Attached -Granulation Amt Large (67-100%) -Granulation Quality Vaiva Vo -Slough/Fibrin -Necrosis Amt None Present (0 %) -Structure Exposed -Texture (Abimbola-wound Skin Appearance) Assessed, Scarring -Moisture (Abimbola-wound Skin Appearance) No Abnormality, Assessed -Color (Abimbola-wound Skin Appearance) No Abnormality, Assessed -Temperature (Abimbola-wound Skin No Abnormality Appearance) (Pt Warm) -Tenderness on Palpation (Abimbola-wound No Skin Appearance) -Ulcer Cleansing Rinsed/ Irrigated with Saline -Foul Odor after Cleansing No -Anesthetic Used 5% Lidocaine Gel #5scrotum/R Groin Cluster -Combined with other wound -Current Size (cm) - Length 16 -Current Size (cm) - Width 8 -Current Size (cm) - Depth 2.4 -Total Square Cm 128 -Date of Last Picture (Recall this field) -Photo Taken -Epithelialization -Tunneling -Undermining/Tunneling -Undermining/Tunneling Starts (O'clock ) -Undermining/Tunneling Ends (O'clock) -Maximum Distance (cm) -Circular Undermining -Change in Wound Grade/Stage -Exudate Amt Large -Exudate Type Serosanguineous -Wound Margin Distinct, Outline Attached -Granulation Amt Large (67-100%) -Granulation Quality Vaiva Vo -Slough/Fibrin -Necrosis Amt None Present (0 %) -Necrotic Tissue Type -Structure Exposed -Texture (Abimbola-wound Skin Appearance) Assessed, Scarring -Moisture (Abimbola-wound Skin Appearance) No Abnormality, Assessed -Color (Abimbola-wound Skin Appearance) No Abnormality, Assessed -Temperature (Abimbola-wound Skin No Abnormality Appearance) (Pt Warm) -Tenderness on Palpation (Abimbola-wound No Skin Appearance) -Ulcer Cleansing Rinsed/ Irrigated with Saline -Foul Odor after Cleansing No -Anesthetic Used 5% Lidocaine Gel Lower Limb Edema Present WC - Nurse 2 - General Ulcer CM Notes Start: 12/18/21 09:05 Freq: Status: Active Protocol: Activity Type Activity Date Activity User E-sign Co-sign Detail Recorded Client Recorded Date Recorded By Document 12/18/21 09:17 [id number] 12/18/21 09:28 Document 12/25/21 09:27 [id number] 12/25/21 09:34 Document 01/01/22 09:13 [id number] 01/01/22 09:18 Document 01/08/22 09:15 [id number] 01/08/22 09:18 12/18/21 12/25/21 01/01/22 09:17 09:27 09:13 Wound Center Nurse 2 #6 L Ischium -Time 09:18 09:27 09:13 -Correct Patient Yes Yes Yes -Correct Side, Site, Position Yes Yes Yes -Correct Procedure Yes Yes Yes -Procedure Performed Yes Yes Yes -Type of Procedure Debridement Debridement Debridement -Clinical Debridement Subcutaneous Subcutaneous Subcutaneous -Tissue Removed Subcutaneous Subcutaneous Subcutaneous -Post Debridement (cm) - Length 1.8 0.8 1.2 -Post Debridement (cm) - Width 2.2 2.0 2 -Post Debridement (cm) - Depth 0.1 0.1 0.1 -Total Square (Post) (cm) 3.96 1.60 2.4 -Area of Debridement (cm) - Length 1.8 0.8 1.2 -Area of Debridement (cm) - Width 2.2 2.0 2 -Total Square (Area) (cm) 3.96 1.60 2.4 -Tunneling No No No -Undermining/Tunneling No No -Circular Undermining No No No -Wound/Ulcer Outcome Not Healed Not Healed Not Healed -Ulcer Cleansing Rinsed/ Rinsed/ Rinsed/ Irrigated with Irrigated with Irrigated with Saline Saline Saline -Foul Odor after Cleansing No No No -Bioengineered Tissue No No No -Bleeding Controlled with Pressure Pressure Pressure -Treatment Response Procedure Procedure Procedure Tolerated Well Tolerated Well Tolerated Well -Offloading No No No -Debridement - Subq, 1st 20sq cm Yes Yes Yes #5scrotum/R Groin Cluster -Time 09:18 09:27 09:14 -Correct Patient Yes Yes Yes -Correct Side, Site, Position Yes Yes Yes -Correct Procedure Yes Yes Yes -Procedure Performed Yes Yes Yes -Type of Procedure Debridement Debridement Debridement -Clinical Debridement Muscle / Fascia Muscle / Fascia Muscle / Fascia -Tissue Removed Muscle,Fascia Muscle Muscle -Post Debridement (cm) - Length 13.5 14.0 13.5 -Post Debridement (cm) - Width 12.5 8.5 8 -Post Debridement (cm) - Depth 2.0 2.0 2.4 -Total Square (Post) (cm) 168.75 119.00 108.0 -Area of Debridement (cm) - Length 13.5 14.0 13.5 -Area of Debridement (cm) - Width 12.5 8.5 8 -Total Square (Area) (cm) 168.75 119.00 108.0 -Tunneling Yes Yes No -Tunneling Position (O'clock) 6 6 -Tunneling Distance (cm) 0.8 0.6 -Undermining/Tunneling No No No -Circular Undermining No No No -Wound/Ulcer Outcome Not Healed Not Healed Not Healed -Ulcer Cleansing Rinsed/ Rinsed/ Wound Cleanser Irrigated with Irrigated with Saline Saline -Foul Odor after Cleansing No No -Bioengineered Tissue No No No -Bleeding Controlled with Pressure,Silver Pressure,Silver Pressure Nitrate Nitrate -Treatment Response Procedure Procedure Procedure Tolerated Well Tolerated Well Tolerated Well -Offloading No No No -Debridement - Muscle / Fascia, 1st Yes Yes Yes 20sq cm -Debridement, Muscle/Fascia, ea addt'l 8 5 5 20sq cm or part thereof Pain Scale: 0-10 Numeric Is Patient Pain Free? Yes Yes Yes 01/08/22 09:15 Wound Center Nurse 2 #6 L Ischium -Time 09:15 -Correct Patient Yes -Correct Side, Site, Position Yes -Correct Procedure Yes -Procedure Performed Yes -Type of Procedure Debridement -Clinical Debridement Subcutaneous -Tissue Removed Subcutaneous -Post Debridement (cm) - Length 1.3 -Post Debridement (cm) - Width 2 -Post Debridement (cm) - Depth 0.1 -Total Square (Post) (cm) 2.6 -Area of Debridement (cm) - Length 1.3 -Area of Debridement (cm) - Width 2.0 -Total Square (Area) (cm) 2.60 -Tunneling No -Undermining/Tunneling No -Circular Undermining No -Wound/Ulcer Outcome Not Healed -Ulcer Cleansing Rinsed/ Irrigated with Saline -Foul Odor after Cleansing No -Bioengineered Tissue No -Bleeding Controlled with Pressure -Treatment Response Procedure Tolerated Well -Offloading No -Debridement - Subq, 1st 20sq cm Yes #5scrotum/R Groin Cluster -Time 09:16 -Correct Patient Yes -Correct Side, Site, Position Yes -Correct Procedure Yes -Procedure Performed Yes -Type of Procedure Debridement -Clinical Debridement Muscle / Fascia -Tissue Removed Muscle -Post Debridement (cm) - Length 13.3 -Post Debridement (cm) - Width 8.5 -Post Debridement (cm) - Depth 1.8 -Total Square (Post) (cm) 113.05 -Area of Debridement (cm) - Length 13.3 -Area of Debridement (cm) - Width 8.5 -Total Square (Area) (cm) 113.05 -Tunneling Yes -Tunneling Position (O'clock) 6 -Tunneling Distance (cm) 1.0 -Undermining/Tunneling No -Circular Undermining No -Wound/Ulcer Outcome Not Healed -Ulcer Cleansing Rinsed/ Irrigated with Saline -Foul Odor after Cleansing No -Bioengineered Tissue No -Bleeding Controlled with Pressure -Treatment Response Procedure Tolerated Well -Offloading No -Debridement - Muscle / Fascia, 1st Yes 20sq cm -Debridement, Muscle/Fascia, ea addt'l 5 20sq cm or part thereof Pain Scale: 0-10 Numeric Is Patient Pain Free? Yes WC - Nurse 3 - General Ulcer D/C NN Start: 12/18/21 09:05 Freq: Status: Active Protocol: Activity Type Activity Date Activity User E-sign Co-sign Detail Recorded Client Recorded Date Recorded By Document 12/18/21 09:34 RB [id number] 12/18/21 09:35 RB Document 12/25/21 09:45 SD [id number] 12/25/21 09:46 AK Document 01/01/22 09:28 [facility] [id number] 01/01/22 09:29 [facility] Document 01/08/22 09:51 AK [id number] 01/08/22 09:52 AK 12/18/21 12/25/21 01/01/22 09:34 09:45 09:28 Wound Care Nurse 3 #6 L Ischium -Ulcer Cleansing Rinsed/ Rinsed/ Rinsed/ Irrigated with Irrigated with Irrigated with Saline Saline Saline -Foul Odor after Cleansing No No -Negative Pressure Wound Therapy N/A -Primary Dressing Applied Silvercel Silvercel Promogran Jacqueline Matter -Other Dressing DRSG PER SD MARINE [employer]IO INST[employer]ER AND SERVICER -Primary Dressing Covered/Secured with Dry Gauze, Dry Gauze & Dry Gauze Secured with Roll Gauze, Tape Secured with Tape -Other Covering SECURED W/ [place] -Promogran Jacqueline Matter 1 -Silvercel 1 1 #5scrotum/R Groin Cluster -Ulcer Cleansing Rinsed/ Rinsed/ Irrigated with Irrigated with Saline Saline -Foul Odor after Cleansing No No -Negative Pressure Wound Therapy N/A -Primary Dressing Applied -Other Dressing saline dakins MOIST TO DRY moistened gauze DRSG PER SD MARINE [employer] INST[employer]ER AND SERVICER -Primary Dressing Covered/Secured with Dry Gauze, Dry Gauze & Secured with Secured with Roll Gauze, Tape Tape Secured with Tape -Other Covering ABD -Promogran Jacqueline Matter Treatment Response Procedure Procedure Tolerated Well Tolerated Well Pain Scale: 0-10 Numeric Is Patient Pain Free? Yes No Yes WC - Visit Discharge Discharge Condition Stable Stable Stable Ambulatory Status Ambulatory Ambulatory Ambulatory Transportation Private Auto Private Auto Private Auto Accompanied by Medication Reconcilliation completed & No Yes provided to patient/care provider Clinical Summary of Care Provided Yes Yes Facility Type Home Health 01/08/22 09:51 Wound Care Nurse 3 #6 L Ischium -Ulcer Cleansing Rinsed/ Irrigated with Saline -Foul Odor after Cleansing No -Negative Pressure Wound Therapy N/A -Primary Dressing Applied Promogran Jacqueline Matter -Other Dressing -Primary Dressing Covered/Secured with -Other Covering -Promogran Jacqueline Matter 1 -Silvercel #5scrotum/R Groin Cluster -Ulcer Cleansing Rinsed/ Irrigated with Saline -Foul Odor after Cleansing No -Negative Pressure Wound Therapy N/A -Primary Dressing Applied Promogran Jacqueline Matter -Other Dressing -Primary Dressing Covered/Secured with Dry Gauze & Roll Gauze, Secured with Tape -Other Covering -Promogran Jacqueline Matter 0 Treatment Response Pain Scale: 0-10 Numeric Is Patient Pain Free? No WC - Visit Discharge Discharge Condition Stable Ambulatory Status Ambulatory Transportation Private Auto Accompanied by Medication Reconcilliation completed & Yes provided to patient/care provider Clinical Summary of Care Provided Yes Facility Type Additional Wound Wound debrided: ischial ulcer Laterality: Left Wound Grade/Stage: Stage II Type of Debridement: Excisional debridement Depth: Down to and including healthy tissue and in the subcutaneous layer Percentage of wound debrided: 100 Instrument Used: 5mm curette Tissue Removed: Devitalized tissue and slough Severity: Fat Layer Exposed Amount of bleeding with debridement: Mild Bleeding Controlled with: Pressure and Compression and gauze Patient tolerated procedure: Patient tolerated procedure well Assessment/Plan Assessment/Plan (1) Open wound of scrotum with complication: CODE(S): S31.30XA - Unspecified open wound of scrotum and testes, initial encounter (2) Open wound of buttock with complication: CODE(S): S31.809A - Unspecified open wound of unspecified buttock, initial encounter (3) Non-healing open wound of right groin: CODE(S): S31.103A - Unspecified open wound of abdominal wall, right lower quadrant without penetration into peritoneal cavity, initial encounter (4) Chronic ulcer of buttock: CODE(S): L98.419 - Non-pressure chronic ulcer of buttock with unspecified severity (5) Suppurative hidradenitis: CODE(S): L73.2 - Hidradenitis suppurativa (6) Smoker: CODE(S): F17.200 - Nicotine dependence, unspecified, uncomplicated (7) Hypertension: CODE(S): I10 - Essential (primary) hypertension QUALIFIERS: Hypertension type: primary hypertension Qualified Code(s): I10 - Essential (primary) hypertension (8) Acute postoperative anemia due to expected blood loss: CODE(S): D62 - Acute posthemorrhagic anemia (9) Diabetes type 2, uncontrolled: CODE(S): E11.65 - Type 2 diabetes mellitus with hyperglycemia (10) Hypokalemia: CODE(S): E87.6 - Hypokalemia (11) Hemoglobin A1c greater than 8.0 percent: CODE(S): R73.09 - Other abnormal glucose (12) Elevated serum creatinine: CODE(S): R79.89 - Other specified abnormal findings of blood chemistry PLAN: Plan Patient was evaluated at the wound healing center. A subcutaneous debridement was performed to the left buttock/ischial ulcer only. Operative wound cultures from 11/23/21 positive for Streptococcus constellatus and Corynebacterium striatum. He was started on Cefdinir 300mg BID. Creatinine repeat on 11/27/21, which was down to 1.62 from 1.73 on 11/25/21. Also, repeat K+ 4.0. Patient restarted Plavix. Wound care - Saline moistened gauze on the day of debridement then Dakin's 0.25% moistened covered by ABD/super absorber daily and prn to right groin. Make sure to pack into the base of the tunnels and undermining. Left ischial ulcer, will change to moistened Jacqueline covered with gauze daily, to see if this will help improve the ulcer. Encouraged increase protein intake and increase Vitamin C intake. Will need supplemental protein to help heal this wound. Encouraged ambulation but not to over do activity, such as cutting wood. He is to complete the antibiotics that were prescribed upon discharge. Encouraged patient to stop smoking as it may have deleterious effects on wound healing. Will order Percocet (14 tabs) to help his pain control. PDMP reviewed. Follow up one week. Call or come in sooner if develop any questions or concerns.
== END 2022-01-10 23:59 | disposition home or self-care (01) ==
LOC: WC 09:00
PROVIDERS: PCP Nurse Practitioner; Referring Provider Nurse Practitioner Family; Visit Provider Nurse Practitioner Family
DX: L73.2 Hidradenitis suppurativa (principal); E11.622 Type 2 diabetes mellitus with other skin ulcer; L98.412 Non-pressure chronic ulcer of buttock with fat layer exposed; L98.492 Non-pressure chronic ulcer of skin of other sites with fat layer exposed; I25.10 Atherosclerotic heart disease of native coronary artery without angina pectoris; I10 Essential (primary) hypertension; F17.200 Nicotine dependence, unspecified, uncomplicated
CPT/HCPCS: 11042; 11043; 11046

== ENCOUNTER 2022-02-07 09:15 | Outpatient (RCR) | payer OTHER, SELFPAY ==
[2022-01-11 00:35] VITALS: BP 193/73; PULSE 86; RESP 16; TEMP 36.2
[2022-01-15 09:06] VITALS: BP 167/79; PULSE 88; TEMP 36.1
--- NOTE | 2022-01-15 12:33 | PCM.WC.PN ---
History of Present Illness Date of Service: 01/15/22 Chief Complaint: Excision of hidradenitis of right inguinal, scrotal and perineal area History of Wound: 56 year old male who is known to me. He has a history significant for hidradenitis, DM type II, HTN, CAD, arterial insufficiency, and smoker. He had surgery on 11/23/21 for 1. Surgical preparation right inguinal area with excision suppurative hidradenitis abscess (112 cm2, and 192 cm2 total). 2. Surgical preparation right scrotum with incision and drainage and excision suppurative hidradenitis abscess (50 cm2, and 192 cm2 total). 3. Surgical preparation right perineal area with excision suppurative hidradenitis abscess (30 cm2, and 192 cm2 total). Operative wound cultures from 11/23/21 positive for Streptococcus constellatus and Corynebacterium striatum. He was started on Cefdinir 300mg BID. Creatinine repeat today, 11/27/21, down to 1.62 from 1.73 on 11/25/21. Wound care - Dakin's 0.25% moistened gauze covered by ABD/super absorber daily and prn to right groin. Left ischial ulcer reopened, place aquacel-ag covered with gauze daily. Today he denies fevers, chills, nausea and vomiting. He states that he has a good appetite. Other history: Surgery 03/22/20 - 1. Surgical preparation left inguinal area with excision hidradenitis (315 cm2 total wound). 2. Surgical preparation perineal area with excision hidradenitis (315 cm2 total wound). 3. Surgical preparation base left scrotum with incision and drainage and excision hidradenitis (315 cm2 total wound). Operative culture from 03/22/20 - Enterococcus faecalis and Streptococcus group F, Anaerobic cocci and Prevotella bivia. He was treated with Linezolid and Flagyl and has completed them. He saw Dr. Kasey live had an angioplasty of some of his vessels in his legs. Patient admitted to the hospital for increased redness and swelling of his left groin and buttocks on 09/27/20. Patient was started on IV Vancomycin, Levaquin and Flagyl by ID. Surgery 09/29/20 - 1. Surgical preparation left perianal area with excision hidradenitis abscess (144 cm2). 2. Surgical preparation left posterior thigh with incision and drainage and excisional debridement hidradenitis abscess (96 cm2). Operative cultures from 09/29/20 positive for Streptococcus constellatus, Corynebacterium striatum, Anaerobic cocci, and Prevotella species. Pathology of left perianal and left posterior thigh abscess showed pieces of skin with underlying tisse with acute and chronic inflammation, granulation tissue reaction and abscess formation. 10/01/20 - Laparoscopic sigmoid colostomy placed by Dr. Osorio due to the complicated perineal wound secondary to hidradenitis suppurativa status post excision. Progress of Wound: Right groin wound has improved. Wound bed is pink. No active bleeding and is smaller in size. The tunneling and undermining are improving. On the proximal edge of the ulcer on the scrotal area there is a new area that has some depth that has decreased since packing with dakins. He is experiencing increased pain with the Dakin's solution on the day of debridement, so he is using saline moistened gauze on the day he is debrided, then Dakin's moistened gauze daily after that. His pain is manageable using the Percocet. Left ischial ulcer is stable. Objective Data Objective Data Vital Signs: Vital Signs Temp Pulse Resp BP 96.9 F L 88 16 167/79 H 01/15/22 09:06 01/15/22 09:06 01/11/22 00:35 01/15/22 09:06 Charges/Coding Procedures Integumentary [id number]: 40221 Global Visit Debridement Note Debridement Note Wound debrided: groin, scrotum, perineal area Laterality: Right Wound Grade/Stage: Stage IV Type of Debridement: Excisional debridement Anesthesia Used: 5% Lidocaine Gel Depth: Down to and including healthy tissue and in the subcutaneous layer Percentage of wound debrided: 100 Instrument Used: 7mm curette Tissue Removed: Devitalized tissue and slough Severity: Fat Layer Exposed Amount of bleeding with debridement: Mild Bleeding Controlled with: Pressure and Compression and gauze Patient tolerated procedure: Patient tolerated procedure well Post-Debridement Measurements and Additional Note: Post-Debridement Measurements/Treatment BEKA - Nurse 1 - General Ulcer Assessment Start: 01/15/22 09:05 Freq: Status: Active Protocol: ROC Activity Type Activity Date Activity User E-sign Co-sign Detail Recorded Client Recorded Date Recorded By Document 01/15/22 09:06 AK [id number] 01/15/22 09:11 JAN 01/15/22 09:06 WC - Today's Visit Information 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 Any new allergies or adverse reactions No Had a fall/change in ADL's that may No increase risk of falls Signs or symptoms of abuse and/or No neglect since last visit Have you been in the hospital since your No last visit? Has dressing in place as prescribed No Has compression in place as prescribed N/A Has offloadiing in place as prescribed N/A Experienced any changes in pain level or No management Left Footwear Regular Shoe Right Footwear Regular Shoe Pain Scale: 0-10 Numeric Is Patient Pain Free? No BEKA - Nurse 1 - General Ulcer Measurement Start: 01/15/22 09:05 Freq: Status: Active Protocol: Activity Type Activity Date Activity User E-sign Co-sign Detail Recorded Client Recorded Date Recorded By Document 01/15/22 09:06 AK [id number] 01/15/22 09:11 JAN 01/15/22 09:06 Wound Center Nurse 1 #6 L Ischium -Combined with other wound No -Current Size (cm) - Length 1 -Current Size (cm) - Width 1.8 -Current Size (cm) - Depth 0.1 -Total Square Cm 1.8 -Date of Last Picture (Recall this 01/15/22 field) -Photo Taken Yes -Tunneling No -Undermining/Tunneling No -Circular Undermining No -Change in Wound Grade/Stage No -Exudate Amt None Present -Wound Margin Distinct, Outline Attached -Granulation Amt None Present (0 %) -Granulation Quality [place],Red -Slough/Fibrin Yes -Necrosis Amt Small (1-33%) -Necrotic Tissue Type Adherent Slough -Structure Exposed N/A -Texture ([place]-wound Skin Appearance) No Abnormality, Assessed -Moisture ([place]-wound Skin Appearance) No Abnormality, Assessed -Color ([place]-wound Skin Appearance) No Abnormality, Assessed -Temperature ([place]-wound Skin No Abnormality Appearance) (Pt Warm) -Tenderness on Palpation ([place]-wound No Skin Appearance) -Ulcer Cleansing Soap and Water -Foul Odor after Cleansing No -Anesthetic Used 4% Lidocaine Solution #5scrotum/R Groin Cluster -Combined with other wound No -Current Size (cm) - Length 16 -Current Size (cm) - Width 7.5 -Current Size (cm) - Depth 0.3 -Total Square Cm 120.0 -Photo Taken No -Tunneling No -Undermining/Tunneling No -Circular Undermining No -Change in Wound Grade/Stage No -Exudate Amt Large -Exudate Type Yellow/Green -Wound Margin Distinct, Outline Attached -Granulation Amt None Present (0 %) -Granulation Quality N/A,[place] -Slough/Fibrin No -Necrosis Amt Small (1-33%) -Structure Exposed N/A -Texture ([place]-wound Skin Appearance) No Abnormality, Assessed -Moisture ([place]-wound Skin Appearance) No Abnormality, Assessed -Color ([place]-wound Skin Appearance) No Abnormality, Assessed -Temperature ([place]-wound Skin No Abnormality Appearance) (Pt Warm) -Tenderness on Palpation ([place]-wound No Skin Appearance) -Ulcer Cleansing Soap and Water -Foul Odor after Cleansing No -Anesthetic Used 4% Lidocaine Solution WC - Nurse 2 - General Ulcer CM Notes Start: 01/15/22 09:05 Freq: Status: Active Protocol: Activity Type Activity Date Activity User E-sign Co-sign Detail Recorded Client Recorded Date Recorded By Document 01/15/22 09:28 LIZETTE [id number] 01/15/22 09:35 LIZETTE 01/15/22 09:28 Wound Center Nurse 2 #6 L Ischium -Time 09:28 -Correct Patient Yes -Correct Side, Site, Position Yes -Correct Procedure Yes -Procedure Performed Yes -Type of Procedure Debridement -Clinical Debridement Subcutaneous -Tissue Removed Subcutaneous -Post Debridement (cm) - Length 1.2 -Post Debridement (cm) - Width 2 -Post Debridement (cm) - Depth 0.1 -Total Square (Post) (cm) 2.4 -Area of Debridement (cm) - Length 1.2 -Area of Debridement (cm) - Width 2 -Total Square (Area) (cm) 2.4 -Tunneling No -Undermining/Tunneling No -Circular Undermining No -Wound/Ulcer Outcome Not Healed -Ulcer Cleansing Rinsed/ Irrigated with Saline -Foul Odor after Cleansing No -Bioengineered Tissue No -Bleeding Controlled with Pressure -Treatment Response Procedure Tolerated Well -Offloading No -Debridement - Subq, 1st 20sq cm No #5scrotum/R Groin Cluster -Time 09:29 -Correct Patient Yes -Correct Side, Site, Position Yes -Correct Procedure Yes -Procedure Performed Yes -Type of Procedure Debridement -Clinical Debridement Subcutaneous -Tissue Removed Subcutaneous -Post Debridement (cm) - Length 13 -Post Debridement (cm) - Width 6.5 -Post Debridement (cm) - Depth 1.4 -Total Square (Post) (cm) 84.5 -Area of Debridement (cm) - Length 13 -Area of Debridement (cm) - Width 6.5 -Total Square (Area) (cm) 84.5 -Tunneling Yes -Tunneling Position (O'clock) 6 -Tunneling Distance (cm) 0.5 -Undermining/Tunneling No -Circular Undermining No -Wound/Ulcer Outcome Not Healed -Ulcer Cleansing Rinsed/ Irrigated with Saline -Foul Odor after Cleansing No -Bioengineered Tissue No -Bleeding Controlled with Pressure -Treatment Response Procedure Tolerated Well -Offloading No -Debridement - Subq, 1st 20sq cm Yes -Debridement, SubQ, ea addt'l 20sq cm 4 or part thereof -Debridement - Muscle / Fascia, 1st Yes 20sq cm Pain Scale: 0-10 Numeric Is Patient Pain Free? Yes WC - Nurse 3 - General Ulcer D/C NN Start: 01/15/22 09:05 Freq: Status: Active Protocol: Activity Type Activity Date Activity User E-sign Co-sign Detail Recorded Client Recorded Date Recorded By Document 01/15/22 09:45 DL [id number] 01/15/22 09:46 DL 01/15/22 09:45 Wound Care Nurse 3 #6 L Ischium -Ulcer Cleansing Soap and Water -Foul Odor after Cleansing No -Primary Dressing Applied C Hydrogel ($) -Primary Dressing Covered/Secured with Dry Gauze -Other Covering coban #5scrotum/R Groin Cluster -Ulcer Cleansing Soap and Water -Foul Odor after Cleansing No -Other Dressing saline gauze -Primary Dressing Covered/Secured with Dry Gauze -Other Covering ABD/[place] Treatment Response Procedure Tolerated Well Pain Scale: 0-10 Numeric Is Patient Pain Free? Yes WC - Visit Discharge Discharge Condition Stable Ambulatory Status Ambulatory Transportation Private Auto Additional Wound Wound debrided: ischial ulcer Laterality: Left Wound Grade/Stage: Stage II Type of Debridement: Excisional debridement Depth: Down to and including healthy tissue and in the subcutaneous layer Percentage of wound debrided: 100 Instrument Used: 5mm curette Tissue Removed: Devitalized tissue and slough Severity: Fat Layer Exposed Amount of bleeding with debridement: Mild Bleeding Controlled with: Pressure and Compression and gauze Patient tolerated procedure: Patient tolerated procedure well Assessment/Plan Assessment/Plan (1) Open wound of scrotum with complication: CODE(S): S31.30XA - Unspecified open wound of scrotum and testes, initial encounter (2) Open wound of buttock with complication: CODE(S): S31.809A - Unspecified open wound of unspecified buttock, initial encounter (3) Non-healing open wound of right groin: CODE(S): S31.103A - Unspecified open wound of abdominal wall, right lower quadrant without penetration into peritoneal cavity, initial encounter (4) Chronic ulcer of buttock: CODE(S): L98.419 - Non-pressure chronic ulcer of buttock with unspecified severity (5) Suppurative hidradenitis: CODE(S): L73.2 - Hidradenitis suppurativa (6) Smoker: CODE(S): F17.200 - Nicotine dependence, unspecified, uncomplicated (7) Hypertension: CODE(S): I10 - Essential (primary) hypertension QUALIFIERS: Hypertension type: primary hypertension Qualified Code(s): I10 - Essential (primary) hypertension (8) Acute postoperative anemia due to expected blood loss: CODE(S): D62 - Acute posthemorrhagic anemia (9) Diabetes type 2, uncontrolled: CODE(S): E11.65 - Type 2 diabetes mellitus with hyperglycemia (10) Hypokalemia: CODE(S): E87.6 - Hypokalemia (11) Hemoglobin A1c greater than 8.0 percent: CODE(S): R73.09 - Other abnormal glucose (12) Elevated serum creatinine: CODE(S): R79.89 - Other specified abnormal findings of blood chemistry PLAN: Plan Patient was evaluated at the wound healing center. A subcutaneous debridement was performed to the left buttock/ischial ulcer only. Operative wound cultures from 11/23/21 positive for Streptococcus constellatus and Corynebacterium striatum. He was started on Cefdinir 300mg BID. Creatinine repeat on 11/27/21, which was down to 1.62 from 1.73 on 11/25/21. Also, repeat K+ 4.0. Patient restarted Plavix. Wound care - Saline moistened gauze on the day of debridement then Dakin's 0.25% moistened covered by ABD/super absorber daily and prn to right groin. Make sure to pack into the base of the tunnels and undermining. Left ischial ulcer collagen hydrogel covered with gauze daily. Encouraged increase protein intake and increase Vitamin C intake. Will need supplemental protein to help heal this wound. Encouraged ambulation but not to over do activity, such as cutting wood. He is to complete the antibiotics that were prescribed upon discharge. Encouraged patient to stop smoking as it may have deleterious effects on wound healing. Will order Percocet (14 tabs) to help his pain control. PDMP reviewed. Follow up one week. Call or come in sooner if develop any questions or concerns.
[2022-01-22 09:04] VITALS: BP 204/76; PULSE 92; TEMP 36.2
--- NOTE | 2022-01-22 12:14 | PCM.WC.PN ---
History of Present Illness Date of Service: 01/22/22 Chief Complaint: Excision of hidradenitis of right inguinal, scrotal and perineal area History of Wound: 56 year old male who is known to me. He has a history significant for hidradenitis, DM type II, HTN, CAD, arterial insufficiency, and smoker. He had surgery on 11/23/21 for 1. Surgical preparation right inguinal area with excision suppurative hidradenitis abscess (112 cm2, and 192 cm2 total). 2. Surgical preparation right scrotum with incision and drainage and excision suppurative hidradenitis abscess (50 cm2, and 192 cm2 total). 3. Surgical preparation right perineal area with excision suppurative hidradenitis abscess (30 cm2, and 192 cm2 total). Operative wound cultures from 11/23/21 positive for Streptococcus constellatus and Corynebacterium striatum. He was started on Cefdinir 300mg BID. Creatinine repeat today, 11/27/21, down to 1.62 from 1.73 on 11/25/21. Wound care - Dakin's 0.25% moistened gauze covered by ABD/super absorber daily and prn to right groin. Left ischial ulcer reopened, place aquacel-ag covered with gauze daily. Today he denies fevers, chills, nausea and vomiting. He states that he has a good appetite. Other history: Surgery 03/22/20 - 1. Surgical preparation left inguinal area with excision hidradenitis (315 cm2 total wound). 2. Surgical preparation perineal area with excision hidradenitis (315 cm2 total wound). 3. Surgical preparation base left scrotum with incision and drainage and excision hidradenitis (315 cm2 total wound). Operative culture from 03/22/20 - Enterococcus faecalis and Streptococcus group F, Anaerobic cocci and Prevotella bivia. He was treated with Linezolid and Flagyl and has completed them. He saw Dr. Kasey live had an angioplasty of some of his vessels in his legs. Patient admitted to the hospital for increased redness and swelling of his left groin and buttocks on 09/27/20. Patient was started on IV Vancomycin, Levaquin and Flagyl by ID. Surgery 09/29/20 - 1. Surgical preparation left perianal area with excision hidradenitis abscess (144 cm2). 2. Surgical preparation left posterior thigh with incision and drainage and excisional debridement hidradenitis abscess (96 cm2). Operative cultures from 09/29/20 positive for Streptococcus constellatus, Corynebacterium striatum, Anaerobic cocci, and Prevotella species. Pathology of left perianal and left posterior thigh abscess showed pieces of skin with underlying tisse with acute and chronic inflammation, granulation tissue reaction and abscess formation. 10/01/20 - Laparoscopic sigmoid colostomy placed by Dr. Osorio due to the complicated perineal wound secondary to hidradenitis suppurativa status post excision. Progress of Wound: Right groin wound has improved. Wound bed is pink. No active bleeding and is smaller in size. The tunneling and undermining are improving. On the proximal edge of the ulcer on the scrotal area there is a new area that has some depth that has decreased since packing with dakins. He is experiencing increased pain with the Dakin's solution on the day of debridement, so he is using saline moistened gauze on the day he is debrided, then Dakin's moistened gauze daily after that. His pain is manageable using the Percocet. Left ischial ulcer is stable. Objective Data Objective Data Vital Signs: Vital Signs Temp Pulse Resp BP 97.1 F L 92 16 204/76 H 01/22/22 09:04 01/22/22 09:04 01/11/22 00:35 01/22/22 09:04 Charges/Coding Procedures Integumentary [id number]: [id number] Global Visit Debridement Note Debridement Note Wound debrided: groin, scrotum, perineal area Laterality: Right Wound Grade/Stage: Stage IV Type of Debridement: Excisional debridement Anesthesia Used: 5% Lidocaine Gel Depth: Down to and including healthy tissue and in the subcutaneous layer Percentage of wound debrided: 100 Instrument Used: 7mm curette Tissue Removed: Devitalized tissue and slough Severity: Fat Layer Exposed Amount of bleeding with debridement: Mild Bleeding Controlled with: Pressure and Compression and gauze Patient tolerated procedure: Patient tolerated procedure well Post-Debridement Measurements and Additional Note: Post-Debridement Measurements/Treatment BEKA - Nurse 1 - General Ulcer Assessment Start: 01/15/22 09:05 Freq: Status: Active Protocol: ROC Activity Type Activity Date Activity User E-sign Co-sign Detail Recorded Client Recorded Date Recorded By Document 01/15/22 09:06 JAN [id number] 01/15/22 09:11 AK Document 01/22/22 09:04 JAN [id number] 01/22/22 09:08 AK 01/15/22 01/22/22 09:06 09:04 - Today's Visit Information Type of service Follow-up Visit Follow-up Visit (Physician/SUBMARINE ELEMENT COORDINATOR (Physician/SUBMARINE ELEMENT COORDINATOR ) ) Arrival Mode Ambulatory Ambulatory Patient Identification Verified (Name & Yes Yes ) Patient Requires Transmission-Based No No Precautions Vital Signs Temperature (97.8 F-99.1 F) 96.9 F L 97.1 F L Temperature Source Temporal Temporal Pulse Rate (60-100) 88 92 Pulse Location Monitor Monitor Blood Pressure (90/60-120/80) 167/79 H 204/76 H Blood Pressure Mean (mm Hg) 108 118 Source Monitor Monitor History Since Last Visit- (Skip if this is Patient's initial visit) Have you changed medications since your No No last visit? Any new allergies or adverse reactions No No Had a fall/change in ADL's that may No No increase risk of falls Signs or symptoms of abuse and/or No No neglect since last visit Have you been in the hospital since your No No last visit? Has dressing in place as prescribed No Yes Has compression in place as prescribed N/A Yes Has offloadiing in place as prescribed N/A N/A Experienced any changes in pain level or No No management Left Footwear Regular Shoe Regular Shoe Right Footwear Regular Shoe Regular Shoe Pain Scale: 0-10 Numeric Is Patient Pain Free? No No - Nurse 1 - General Ulcer Measurement Start: 01/15/22 09:05 Freq: Status: Active Protocol: Activity Type Activity Date Activity User E-sign Co-sign Detail Recorded Client Recorded Date Recorded By Document 01/15/22 09:06 JAN [id number] 01/15/22 09:11 AK Document 01/22/22 09:04 JAN [id number] 01/22/22 09:08 AK 01/15/22 01/22/22 09:06 09:04 Wound Center Nurse 1 #6 L Ischium -Combined with other wound No No -Current Size (cm) - Length 1 0.8 -Current Size (cm) - Width 1.8 1.5 -Current Size (cm) - Depth 0.1 0.1 -Total Square Cm 1.8 1.20 -Date of Last Picture (Recall this 01/15/22 01/22/22 field) -Photo Taken Yes Yes -Tunneling No No -Undermining/Tunneling No No -Circular Undermining No No -Change in Wound Grade/Stage No No -Exudate Amt None Present Medium -Exudate Type Serosanguineous -Wound Margin Distinct, Distinct, Outline Outline Attached Attached -Granulation Amt None Present (0 Large (67-100%) %) -Granulation Quality [place] -Slough/Fibrin Yes No -Necrosis Amt Small (1-33%) None Present (0 %) -Necrotic Tissue Type Adherent Slough -Structure Exposed N/A N/A -Texture (Abimbola-wound Skin Appearance) No Abnormality, No Abnormality, Assessed Assessed -Moisture ([place]imbola-wound Skin Appearance) No Abnormality, No Abnormality, Assessed Assessed -Color ([place]imbola-wound Skin Appearance) No Abnormality, No Abnormality, Assessed Assessed,Not Assessed -Temperature ([place]imbola-wound Skin No Abnormality No Abnormality Appearance) (Pt Warm) (Pt Warm) -Tenderness on Palpation (Abimbola-wound No No Skin Appearance) -Ulcer Cleansing Soap and Water Soap and Water -Foul Odor after Cleansing No No -Anesthetic Used 4% Lidocaine 4% Lidocaine Solution Solution #5scrotum/R Groin Cluster -Combined with other wound No No -Current Size (cm) - Length 16 11 -Current Size (cm) - Width 7.5 5 -Current Size (cm) - Depth 0.3 0.2 -Total Square Cm 120.0 55 -Date of Last Picture (Recall this 01/22/22 field) -Photo Taken No Yes -Tunneling No No -Undermining/Tunneling No No -Circular Undermining No No -Change in Wound Grade/Stage No No -Exudate Amt Large Small -Exudate Type Yellow/Green Serosanguineous -Wound Margin Distinct, Distinct, Outline Outline Attached Attached -Granulation Amt None Present (0 Medium (34-66%) %) -Granulation Quality N/A,[place] -Slough/Fibrin No No -Necrosis Amt Small (1-33%) None Present (0 %) -Structure Exposed N/A N/A -Texture ([place]imbola-wound Skin Appearance) No Abnormality, No Abnormality, Assessed Assessed -Moisture ([place]imbola-wound Skin Appearance) No Abnormality, No Abnormality, Assessed Assessed -Color ([place]imbola-wound Skin Appearance) No Abnormality, No Abnormality, Assessed Assessed -Temperature ([place]imbola-wound Skin No Abnormality No Abnormality Appearance) (Pt Warm) (Pt Warm) -Tenderness on Palpation (Abimbola-wound No No Skin Appearance) -Ulcer Cleansing Soap and Water Soap and Water -Foul Odor after Cleansing No No -Anesthetic Used 4% Lidocaine 4% Lidocaine Solution Solution WC - Nurse 2 - General Ulcer CM Notes Start: 01/15/22 09:05 Freq: Status: Active Protocol: Activity Type Activity Date Activity User E-sign Co-sign Detail Recorded Client Recorded Date Recorded By Document 01/15/22 09:28 [id number] 01/15/22 09:35 Document 01/22/22 09:24 [id number] 01/22/22 09:30 01/15/22 01/22/22 09:28 09:24 Wound Center Nurse 2 #6 L Ischium -Time 09:28 09:24 -Correct Patient Yes Yes -Correct Side, Site, Position Yes Yes -Correct Procedure Yes Yes -Procedure Performed Yes Yes -Type of Procedure Debridement Debridement -Clinical Debridement Subcutaneous Subcutaneous -Tissue Removed Subcutaneous Subcutaneous -Post Debridement (cm) - Length 1.2 1.1 -Post Debridement (cm) - Width 2 1.9 -Post Debridement (cm) - Depth 0.1 0.1 -Total Square (Post) (cm) 2.4 2.09 -Area of Debridement (cm) - Length 1.2 1.1 -Area of Debridement (cm) - Width 2 1.9 -Total Square (Area) (cm) 2.4 2.09 -Tunneling No No -Undermining/Tunneling No No -Circular Undermining No No -Wound/Ulcer Outcome Not Healed Not Healed -Ulcer Cleansing Rinsed/ Rinsed/ Irrigated with Irrigated with Saline Saline -Foul Odor after Cleansing No No -Bioengineered Tissue No No -Bleeding Controlled with Pressure Pressure -Treatment Response Procedure Procedure Tolerated Well Tolerated Well -Offloading No No -Debridement - Subq, 1st 20sq cm No No #5scrotum/R Groin Cluster -Time 09:29 09:25 -Correct Patient Yes Yes -Correct Side, Site, Position Yes Yes -Correct Procedure Yes Yes -Procedure Performed Yes Yes -Type of Procedure Debridement Debridement -Clinical Debridement Subcutaneous Subcutaneous -Tissue Removed Subcutaneous Subcutaneous -Post Debridement (cm) - Length 13 12.0 -Post Debridement (cm) - Width 6.5 7.0 -Post Debridement (cm) - Depth 1.4 1.4 -Total Square (Post) (cm) 84.5 84.00 -Area of Debridement (cm) - Length 13 12.0 -Area of Debridement (cm) - Width 6.5 7 -Total Square (Area) (cm) 84.5 84.0 -Tunneling Yes No -Tunneling Position (O'clock) 6 -Tunneling Distance (cm) 0.5 -Undermining/Tunneling No No -Circular Undermining No No -Wound/Ulcer Outcome Not Healed Not Healed -Ulcer Cleansing Rinsed/ Rinsed/ Irrigated with Irrigated with Saline Saline -Foul Odor after Cleansing No No -Bioengineered Tissue No No -Bleeding Controlled with Pressure Pressure -Treatment Response Procedure Procedure Tolerated Well Tolerated Well -Offloading No No -Debridement - Subq, 1st 20sq cm Yes Yes -Debridement, SubQ, ea addt'l 20sq cm 4 4 or part thereof -Debridement - Muscle / Fascia, 1st Yes 20sq cm Pain Scale: 0-10 Numeric Is Patient Pain Free? Yes Yes WC - Nurse 3 - General Ulcer D/C NN Start: 01/15/22 09:05 Freq: Status: Active Protocol: Activity Type Activity Date Activity User E-sign Co-sign Detail Recorded Client Recorded Date Recorded By Document 01/15/22 09:45 DL [id number] 01/15/22 09:46 DL Document 01/22/22 10:01 PL [id number] 01/22/22 10:02 PL 01/15/22 01/22/22 09:45 10:01 Wound Care Nurse 3 #6 L Ischium -Ulcer Cleansing Soap and Water Rinsed/ Irrigated with Saline -Foul Odor after Cleansing No No -Primary Dressing Applied C Hydrogel ($) -Other Dressing Hydrogel -Primary Dressing Covered/Secured with Dry Gauze Dry Gauze, Secured with Tape -Other Covering coban #5scrotum/R Groin Cluster -Ulcer Cleansing Soap and Water Rinsed/ Irrigated with Saline -Foul Odor after Cleansing No No -Other Dressing saline gauze Saline gauze -Primary Dressing Covered/Secured with Dry Gauze Dry Gauze, Secured with Tape -Other Covering ABD/Coban Treatment Response Procedure Tolerated Well Pain Scale: 0-10 Numeric Is Patient Pain Free? Yes Yes WC - Visit Discharge Discharge Condition Stable Stable Ambulatory Status Ambulatory Ambulatory Transportation Private Auto Private Auto Additional Wound Wound debrided: ischial ulcer Laterality: Left Wound Grade/Stage: Stage II Type of Debridement: Excisional debridement Depth: Down to and including healthy tissue and in the subcutaneous layer Percentage of wound debrided: 100 Instrument Used: 3mm curette Tissue Removed: Devitalized tissue and slough Severity: Fat Layer Exposed Amount of bleeding with debridement: Mild Bleeding Controlled with: Pressure and Compression and gauze Patient tolerated procedure: Patient tolerated procedure well Assessment/Plan Assessment/Plan (1) Open wound of scrotum with complication: CODE(S): S31.30XA - Unspecified open wound of scrotum and testes, initial encounter (2) Open wound of buttock with complication: CODE(S): S31.809A - Unspecified open wound of unspecified buttock, initial encounter (3) Non-healing open wound of right groin: CODE(S): S31.103A - Unspecified open wound of abdominal wall, right lower quadrant without penetration into peritoneal cavity, initial encounter (4) Chronic ulcer of buttock: CODE(S): L98.419 - Non-pressure chronic ulcer of buttock with unspecified severity (5) Suppurative hidradenitis: CODE(S): L73.2 - Hidradenitis suppurativa (6) Smoker: CODE(S): F17.200 - Nicotine dependence, unspecified, uncomplicated (7) Hypertension: CODE(S): I10 - Essential (primary) hypertension QUALIFIERS: Hypertension type: primary hypertension Qualified Code(s): I10 - Essential (primary) hypertension (8) Acute postoperative anemia due to expected blood loss: CODE(S): D62 - Acute posthemorrhagic anemia (9) Diabetes type 2, uncontrolled: CODE(S): E11.65 - Type 2 diabetes mellitus with hyperglycemia (10) Hypokalemia: CODE(S): E87.6 - Hypokalemia (11) Hemoglobin A1c greater than 8.0 percent: CODE(S): R73.09 - Other abnormal glucose (12) Elevated serum creatinine: CODE(S): R79.89 - Other specified abnormal findings of blood chemistry PLAN: Plan Patient was evaluated at the wound healing center. A subcutaneous debridement was performed to the left buttock/ischial ulcer only. Operative wound cultures from 11/23/21 positive for Streptococcus constellatus and Corynebacterium striatum. He was started on Cefdinir 300mg BID. Creatinine repeat on 11/27/21, which was down to 1.62 from 1.73 on 11/25/21. Also, repeat K+ 4.0. Patient restarted Plavix. Wound care - Saline moistened gauze on the day of debridement then Dakin's 0.25% moistened covered by ABD/super absorber daily and prn to right groin. Make sure to pack into the base of the tunnels and undermining. Left ischial ulcer collagen hydrogel covered with gauze daily. Encouraged increase protein intake and increase Vitamin C intake. Will need supplemental protein to help heal this wound. Encouraged ambulation but not to over do activity, such as cutting wood. He is to complete the antibiotics that were prescribed upon discharge. Encouraged patient to stop smoking as it may have deleterious effects on wound healing. Will order Percocet (7 tabs) to help his pain control. PDMP reviewed. Follow up one week. Call or come in sooner if develop any questions or concerns.
[2022-01-29 08:44] VITALS: BP 179/65; PULSE 91; TEMP 36.2
--- NOTE | 2022-01-29 10:43 | PN.PCM_ITS ---
History of Present Illness Date of Service: 01/29/22 Chief Complaint: Excision of hidradenitis of right inguinal, scrotal and p erineal area History of Wound: 56 year old male who is known to me. He has a history significant for hidradenitis, DM type II, HTN, CAD, arterial insufficiency, and smoker. He had surgery on 11/23/21 for 1. Surgical preparation right inguinal area with excision suppurative hidradenitis abscess (112 cm2, and 192 cm2 total). 2. Surgical preparation right scrotum with incision and drainage and excision suppurative hidradenitis abscess (50 cm2, and 192 cm2 total). 3. Surgical preparation right perineal area with excision suppurative hidradenitis abscess (30 cm2, and 192 cm2 total). Operative wound cultures from 11/23/21 positive for Streptococcus constellatus and Corynebacterium striatum. He was started on Cefdinir 300mg BID. Creatinine repeat today, 11/27/21, down to 1.62 from 1.73 on 11/25/21. Wound care - Dakin's 0.25% moistened gauze covered by ABD/super absorber daily and prn to right groin. Left ischial ulcer reopened, place aquacel-ag covered with gauze daily. Today he denies fevers, chills, nausea and vomiting. He states that he has a good appetite. Other history: Surgery 03/22/20 - 1. Surgical preparation left inguinal area with excision hidradenitis (315 cm2 total wound). 2. Surgical preparation perineal area with excision hidradenitis (315 cm2 total wound). 3. Surgical preparation base left scrotum with incision and drainage and excision hidradenitis (315 cm2 total wound). Operative culture from 03/22/20 - Enterococcus faecalis and Streptococcus group F, Anaerobic cocci and Prevotella bivia. He was treated with Linezolid and Flagyl and has completed them. He saw Dr. Kasey live had an angioplasty of some of his vessels in his legs. Patient admitted to the hospital for increased redness and swelling of his left groin and buttocks on 09/27/20. Patient was started on IV Vancomycin, Levaquin and Flagyl by ID. Surgery 09/29/20 - 1. Surgical preparation left perianal area with excision hidradenitis abscess (144 cm2). 2. Surgical preparation left posterior thigh with incision and drainage and excisional debridement hidradenitis abscess (96 cm2). Operative cultures from 09/29/20 positive for Streptococcus constellatus, Corynebacterium striatum, Anaerobic cocci, and Prevotella species. Pathology of left perianal and left posterior thigh abscess showed pieces of skin with underlying tisse with acute and chronic inflammation, granulation tissue reaction and abscess formation. 10/01/20 - Laparoscopic sigmoid colostomy placed by Dr. Osorio due to the complicated perineal wound secondary to hidradenitis suppurativa status post excision. Progress of Wound: Right groin wound has improved. Wound bed is pink. No active bleeding and is smaller in size. The tunneling and undermining are improving. On the proximal edge of the ulcer on the scrotal area the ulcer has some depth that has decreased since packing with dakins. He is experiencing increased pain with the Dakin's solution on the day of debridement, so he is using saline moistened gauze on the day he is debrided, then Dakin's moistened gauze daily after that. His pain is manageable using the Percocet. Left ischial ulcer is stable. Objective Data Objective Data Vital Signs: Vital Signs Temp Pulse Resp BP 97.2 F L 91 16 179/65 H 01/29/22 08:44 01/29/22 08:44 01/11/22 00:35 01/29/22 08:44 Charges/Coding Procedures Integumentary [id number]: [id number] Global Visit Debridement Note Debridement Note Wound debrided: groin, scrotum, perineal area Laterality: Right Wound Grade/Stage: Stage IV Type of Debridement: Excisional debridement Anesthesia Used: 5% Lidocaine Gel Depth: Down to and including healthy tissue and in the subcutaneous layer Percentage of wound debrided: 100 Instrument Used: 7mm curette Tissue Removed: Devitalized tissue and slough Severity: Fat Layer Exposed Amount of bleeding with debridement: Mild Bleeding Controlled with: Pressure and Compression and gauze Patient tolerated procedure: Patient tolerated procedure well Post-Debridement Measurements and Additional Note: Post-Debridement Measurements/Treatment BEKA - Nurse 1 - General Ulcer Assessment Start: 01/15/22 09:05 Freq: Status: Active Protocol: WC.LOWEXT Activity Type Activity Date Activity User E-sign Co-sign Detail Recorded Client Recorded Date Recorded By Document 01/15/22 09:06 JAN [id number] 01/15/22 09:11 AK Document 01/22/22 09:04 UT [id number] 01/22/22 09:08 AK Document 01/29/22 08:44 UT [id number] 01/29/22 08:55 AK 01/15/22 01/22/22 01/29/22 09:06 09:04 08:44 - Today's Visit Information Type of service Follow-up Visit Follow-up Visit Follow-up Visit (Physician/PUBLIC SERVICE ADMINISTRATOR (Physician/PUBLIC SERVICE ADMINISTRATOR (Physician/PUBLIC SERVICE ADMINISTRATOR ) ) ) Arrival Mode Ambulatory Ambulatory Ambulatory Patient Identification Verified (Name & Yes Yes Yes ) Patient Requires Transmission-Based No No No Precautions Vital Signs Temperature (97.8 F-99.1 F) 96.9 F L 97.1 F L 97.2 F L Temperature Source Temporal Temporal Temporal Pulse Rate (60-100) 88 92 91 Pulse Location Monitor Monitor Monitor Blood Pressure (90/60-120/80) 167/79 H 204/76 H 179/65 H Blood Pressure Mean (mm Hg) 108 118 103 Source Monitor Monitor Monitor History Since Last Visit- (Skip if this is Patient's initial visit) Have you changed medications since your No No No last visit? Any new allergies or adverse reactions No No No Had a fall/change in ADL's that may No No No increase risk of falls Signs or symptoms of abuse and/or No No No neglect since last visit Have you been in the hospital since your No No No last visit? Has dressing in place as prescribed No Yes Yes Has compression in place as prescribed N/A Yes N/A Has offloadiing in place as prescribed N/A N/A N/A Experienced any changes in pain level or No No No management Left Footwear Regular Shoe Regular Shoe Regular Shoe Right Footwear Regular Shoe Regular Shoe Regular Shoe Pain Scale: 0-10 Numeric Is Patient Pain Free? No No Yes - Nurse 1 - General Ulcer Measurement Start: 01/15/22 09:05 Freq: Status: Active Protocol: Activity Type Activity Date Activity User E-sign Co-sign Detail Recorded Client Recorded Date Recorded By Document 01/15/22 09:06 JAN [id number] 01/15/22 09:11 AK Document 01/22/22 09:04 AK [id number] 01/22/22 09:08 AK Document 01/29/22 08:44 UT [id number] 01/29/22 08:55 UT 01/15/22 01/22/22 01/29/22 09:06 09:04 08:44 Wound Center Nurse 1 #6 L Ischium -Combined with other wound No No No -Current Size (cm) - Length 1 0.8 0.5 -Current Size (cm) - Width 1.8 1.5 1 -Current Size (cm) - Depth 0.1 0.1 0.1 -Total Square Cm 1.8 1.20 0.5 -Date of Last Picture (Recall this 01/15/22 01/22/22 01/29/22 field) -Photo Taken Yes Yes Yes -Tunneling No No No -Undermining/Tunneling No No No -Circular Undermining No No No -Change in Wound Grade/Stage No No No -Exudate Amt None Present Medium Medium -Exudate Type Serosanguineous Serosanguineous -Wound Margin Distinct, Distinct, Distinct, Outline Outline Outline Attached Attached Attached -Granulation Amt None Present (0 Large (67-100%) Large (67-100%) %) -Granulation Quality Northchase,Red Northchase N/A,Northchase,Red -Slough/Fibrin Yes No No -Necrosis Amt Small (1-33%) None Present (0 None Present (0 %) %) -Necrotic Tissue Type Adherent Slough -Structure Exposed N/A N/A N/A -Texture (Abimbola-wound Skin Appearance) No Abnormality, No Abnormality, Assessed, Assessed Assessed Scarring -Moisture (Abimbola-wound Skin Appearance) No Abnormality, No Abnormality, No Abnormality, Assessed Assessed Assessed -Color (Abimbola-wound Skin Appearance) No Abnormality, No Abnormality, No Abnormality, Assessed Assessed,Not Assessed Assessed -Temperature (Abimbola-wound Skin No Abnormality No Abnormality No Abnormality Appearance) (Pt Warm) (Pt Warm) (Pt Warm) -Tenderness on Palpation (Abimbola-wound No No No Skin Appearance) -Ulcer Cleansing Soap and Water Soap and Water Rinsed/ Irrigated with Saline -Foul Odor after Cleansing No No No -Anesthetic Used 4% Lidocaine 4% Lidocaine 4% Lidocaine Solution Solution Solution #5scrotum/R Groin Cluster -Combined with other wound No No No -Current Size (cm) - Length 16 11 13 -Current Size (cm) - Width 7.5 5 5.5 -Current Size (cm) - Depth 0.3 0.2 0.2 -Total Square Cm 120.0 55 71.5 -Date of Last Picture (Recall this 01/22/22 field) -Photo Taken No Yes Yes -Tunneling No No No -Undermining/Tunneling No No No -Circular Undermining No No No -Change in Wound Grade/Stage No No No -Exudate Amt Large Small Large -Exudate Type Yellow/Green Serosanguineous Yellow/Green -Wound Margin Distinct, Distinct, Distinct, Outline Outline Outline Attached Attached Attached -Granulation Amt None Present (0 Medium (34-66%) Large (67-100%) %) -Granulation Quality N/A,Northchase Northchase Northchase,Red -Slough/Fibrin No No No -Necrosis Amt Small (1-33%) None Present (0 None Present (0 %) %) -Structure Exposed N/A N/A N/A -Texture (Abimbola-wound Skin Appearance) No Abnormality, No Abnormality, No Abnormality, Assessed Assessed Assessed -Moisture (Abimbola-wound Skin Appearance) No Abnormality, No Abnormality, No Abnormality, Assessed Assessed Assessed -Color (Abimbola-wound Skin Appearance) No Abnormality, No Abnormality, No Abnormality, Assessed Assessed Assessed -Temperature (Abimbola-wound Skin No Abnormality No Abnormality No Abnormality Appearance) (Pt Warm) (Pt Warm) (Pt Warm) -Tenderness on Palpation (Abimbola-wound No No No Skin Appearance) -Ulcer Cleansing Soap and Water Soap and Water Rinsed/ Irrigated with Saline -Foul Odor after Cleansing No No No -Anesthetic Used 4% Lidocaine 4% Lidocaine 4% Lidocaine Solution Solution Solution WC - Nurse 2 - General Ulcer CM Notes Start: 01/15/22 09:05 Freq: Status: Active Protocol: Activity Type Activity Date Activity User E-sign Co-sign Detail Recorded Client Recorded Date Recorded By Document 01/15/22 09:28 JF [id number] 01/15/22 09:35 Document 01/22/22 09:24 LIZETTE [id number] 01/22/22 09:30 Document 01/29/22 09:12 [id number] 01/29/22 09:17 01/15/22 01/22/22 01/29/22 09:28 09:24 09:12 Wound Center Nurse 2 #6 L Ischium -Time 09:24 09:12 -Correct Patient Yes Yes Yes -Correct Side, Site, Position Yes Yes Yes -Correct Procedure Yes Yes Yes -Procedure Performed Yes Yes Yes -Type of Procedure Debridement Debridement Debridement -Clinical Debridement Subcutaneous Subcutaneous Subcutaneous -Tissue Removed Subcutaneous Subcutaneous Subcutaneous -Post Debridement (cm) - Length 1.2 1.1 1.0 -Post Debridement (cm) - Width 2 1.9 1.8 -Post Debridement (cm) - Depth 0.1 0.1 0.1 -Total Square (Post) (cm) 2.4 2.09 1.80 -Area of Debridement (cm) - Length 1.2 1.1 1.0 -Area of Debridement (cm) - Width 2 1.9 1.8 -Total Square (Area) (cm) 2.4 2.09 1.80 -Tunneling No No No -Undermining/Tunneling No No No -Circular Undermining No No No -Wound/Ulcer Outcome Not Healed Not Healed Not Healed -Ulcer Cleansing Rinsed/ Rinsed/ Rinsed/ Irrigated with Irrigated with Irrigated with Saline Saline Saline -Foul Odor after Cleansing No No No -Bioengineered Tissue No No No -Bleeding Controlled with Pressure Pressure Pressure -Treatment Response Procedure Procedure Procedure Tolerated Well Tolerated Well Tolerated Well -Offloading No No No -Debridement - Subq, 1st 20sq cm No No No #5scrotum/R Groin Cluster -Time 09:25 09:12 -Correct Patient Yes Yes Yes -Correct Side, Site, Position Yes Yes Yes -Correct Procedure Yes Yes Yes -Procedure Performed Yes Yes Yes -Type of Procedure Debridement Debridement Debridement -Clinical Debridement Subcutaneous Subcutaneous Subcutaneous -Tissue Removed Subcutaneous Subcutaneous Subcutaneous -Post Debridement (cm) - Length 13 12.0 12.2 -Post Debridement (cm) - Width 6.5 7.0 5.2 -Post Debridement (cm) - Depth 1.4 1.4 1.5 -Total Square (Post) (cm) 84.5 84.00 63.44 -Area of Debridement (cm) - Length 13 12.0 12.2 -Area of Debridement (cm) - Width 6.5 7 5.2 -Total Square (Area) (cm) 84.5 84.0 63.44 -Tunneling Yes No No -Tunneling Position (O'clock) 6 5 -Tunneling Distance (cm) 0.5 2.1 -Tunneling Position #2 (O'clock) 12 -Tunneling Distance #2 (cm) 1.5 -Undermining/Tunneling No No Yes -Circular Undermining No No No -Wound/Ulcer Outcome Not Healed Not Healed Not Healed -Ulcer Cleansing Rinsed/ Rinsed/ Rinsed/ Irrigated with Irrigated with Irrigated with Saline Saline Saline -Foul Odor after Cleansing No No No -Bioengineered Tissue No No No -Bleeding Controlled with Pressure Pressure Pressure -Treatment Response Procedure Procedure Procedure Tolerated Well Tolerated Well Tolerated Well -Offloading No No No -Debridement - Subq, 1st 20sq cm Yes Yes Yes -Debridement, SubQ, ea addt'l 20sq cm 4 4 3 or part thereof -Debridement - Muscle / Fascia, 1st Yes 20sq cm Pain Scale: 0-10 Numeric Is Patient Pain Free? Yes Yes Yes WC - Nurse 3 - General Ulcer D/C NN Start: 01/15/22 09:05 Freq: Status: Active Protocol: Activity Type Activity Date Activity User E-sign Co-sign Detail Recorded Client Recorded Date Recorded By Document 01/15/22 09:45 DL [id number] 01/15/22 09:46 DL Document 01/22/22 10:01 PL [id number] 01/22/22 10:02 PL Document 01/29/22 09:30 DL [id number] 01/29/22 09:32 DL 01/15/22 01/22/22 01/29/22 09:45 10:01 09:30 Wound Care Nurse 3 #6 L Ischium -Ulcer Cleansing Soap and Water Rinsed/ Not Cleansed Irrigated with Saline -Foul Odor after Cleansing No No No -Primary Dressing Applied C Hydrogel ($) C Hydrogel ($) -Other Dressing Hydrogel -Primary Dressing Covered/Secured with Dry Gauze Dry Gauze, Dry Gauze Secured with Tape -Other Covering coban coban #5scrotum/R Groin Cluster -Ulcer Cleansing Soap and Water Rinsed/ Soap and Water Irrigated with Saline -Foul Odor after Cleansing No No No -Other Dressing saline gauze Saline gauze moist saline gauze -Primary Dressing Covered/Secured with Dry Gauze Dry Gauze, Dry Gauze Secured with Tape -Other Covering ABD/Coban coban Treatment Response Procedure Procedure Tolerated Well Tolerated Well Pain Scale: 0-10 Numeric Is Patient Pain Free? Yes Yes Yes WC - Visit Discharge Discharge Condition Stable Stable Stable Ambulatory Status Ambulatory Ambulatory Ambulatory Transportation Private Auto Private Auto Private Auto Notes: Pt to resume Dakins at home. Additional Wound Wound debrided: ischial ulcer Laterality: Left Wound Grade/Stage: Stage II Type of Debridement: Excisional debridement Depth: Down to and including healthy tissue and in the subcutaneous layer Percentage of wound debrided: 100 Instrument Used: 3mm curette Tissue Removed: Devitalized tissue and slough Severity: Fat Layer Exposed Amount of bleeding with debridement: Mild Bleeding Controlled with: Pressure and Compression and gauze Patient tolerated procedure: Patient tolerated procedure well Assessment/Plan Assessment/Plan (1) Ulcer of right groin with fat layer exposed: CODE(S): L98.492 - Non-pressure chronic ulcer of skin of other sites with fat layer exposed (2) Ulcer of scrotum: CODE(S): N50.89 - Other specified disorders of the male genital organs (3) Ulcer of perineum with fat layer exposed: CODE(S): L98.492 - Non-pressure chronic ulcer of skin of other sites with fat layer exposed (4) Chronic ulcer of buttock: CODE(S): L98.419 - Non-pressure chronic ulcer of buttock with unspecified severity (5) Suppurative hidradenitis: CODE(S): L73.2 - Hidradenitis suppurativa (6) Smoker: CODE(S): F17.200 - Nicotine dependence, unspecified, uncomplicated (7) Hypertension: CODE(S): I10 - Essential (primary) hypertension QUALIFIERS: Hypertension type: primary hypertension Qualified Code(s): I10 - Essential (primary) hypertension (8) Acute postoperative anemia due to expected blood loss: CODE(S): D62 - Acute posthemorrhagic anemia (9) Diabetes type 2, uncontrolled: CODE(S): E11.65 - Type 2 diabetes mellitus with hyperglycemia (10) Hypokalemia: CODE(S): E87.6 - Hypokalemia (11) Hemoglobin A1c greater than 8.0 percent: CODE(S): R73.09 - Other abnormal glucose (12) Post-operative pain: CODE(S): G89.18 - Other acute postprocedural pain PLAN: Plan Patient was evaluated at the wound healing center. Operative wound cultures from 11/23/21 positive for Streptococcus constellatus and Corynebacterium striatum. He was started on Cefdinir 300mg BID. Creatinine repeat on 11/27/21, which was down to 1.62 from 1.73 on 11/25/21. Also, repeat K+ 4.0. Patient restarted Plavix. Wound care - Saline moistened gauze on the day of debridement then Dakin's 0.25% moistened covered by ABD/super absorber daily and prn to right groin. Make sure to pack into the base of the tunnels and undermining. Left ischial ulcer collagen hydrogel covered with gauze daily. Encouraged increase protein intake and increase Vitamin C intake. Will need supplemental protein to help heal this wound. Encouraged ambulation but not to over do activity, such as cutting wood. He is to complete the antibiotics that were prescribed upon discharge. Encouraged patient to stop smoking as it may have deleterious effects on wound healing. Follow up one week. Call or come in sooner if develop any questions or concerns.
[2022-02-07 08:47] VITALS: BP 171/71; PULSE 80; RESP 16; TEMP 35.7
--- NOTE | 2022-02-07 12:05 | PCM.WC.PN ---
History of Present Illness Date of Service: 02/07/22 Chief Complaint: Excision of hidradenitis of right inguinal, scrotal and perineal area History of Wound: 56 year old male who is known to me. He has a history significant for hidradenitis, DM type II, HTN, CAD, arterial insufficiency, and smoker. He had surgery on 11/23/21 for 1. Surgical preparation right inguinal area with excision suppurative hidradenitis abscess (112 cm2, and 192 cm2 total). 2. Surgical preparation right scrotum with incision and drainage and excision suppurative hidradenitis abscess (50 cm2, and 192 cm2 total). 3. Surgical preparation right perineal area with excision suppurative hidradenitis abscess (30 cm2, and 192 cm2 total). Operative wound cultures from 11/23/21 positive for Streptococcus constellatus and Corynebacterium striatum. He was started on Cefdinir 300mg BID. Creatinine repeat today, 11/27/21, down to 1.62 from 1.73 on 11/25/21. Wound care - Dakin's 0.25% moistened gauze covered by ABD/super absorber daily and prn to right groin. Left ischial ulcer reopened, place aquacel-ag covered with gauze daily. Today he denies fevers, chills, nausea and vomiting. He states that he has a good appetite. Other history: Surgery 03/22/20 - 1. Surgical preparation left inguinal area with excision hidradenitis (315 cm2 total wound). 2. Surgical preparation perineal area with excision hidradenitis (315 cm2 total wound). 3. Surgical preparation base left scrotum with incision and drainage and excision hidradenitis (315 cm2 total wound). Operative culture from 03/22/20 - Enterococcus faecalis and Streptococcus group F, Anaerobic cocci and Prevotella bivia. He was treated with Linezolid and Flagyl and has completed them. He saw Dr. Kasey live had an angioplasty of some of his vessels in his legs. Patient admitted to the hospital for increased redness and swelling of his left groin and buttocks on 09/27/20. Patient was started on IV Vancomycin, Levaquin and Flagyl by ID. Surgery 09/29/20 - 1. Surgical preparation left perianal area with excision hidradenitis abscess (144 cm2). 2. Surgical preparation left posterior thigh with incision and drainage and excisional debridement hidradenitis abscess (96 cm2). Operative cultures from 09/29/20 positive for Streptococcus constellatus, Corynebacterium striatum, Anaerobic cocci, and Prevotella species. Pathology of left perianal and left posterior thigh abscess showed pieces of skin with underlying tisse with acute and chronic inflammation, granulation tissue reaction and abscess formation. 10/01/20 - Laparoscopic sigmoid colostomy placed by Dr. Osorio due to the complicated perineal wound secondary to hidradenitis suppurativa status post excision. Progress of Wound: Right groin wound has improved. Wound bed is pink. The tunneling and undermining are improving. On the proximal edge of the ulcer on the scrotal area the depth has resolved. He is experiencing increased pain with the Dakin's solution on the day of debridement, so he is using saline moistened gauze on the day he is debrided, then Dakin's moistened gauze daily after that. Left ischial ulcer is slightly smaller. Objective Data Objective Data Vital Signs: Vital Signs Temp Pulse Resp BP O2 Del Method 96.2 F L 80 16 171/71 H Room Air 02/07/22 08:47 02/07/22 08:47 02/07/22 08:47 02/07/22 08:47 02/07/22 08:47 Oxygen Delivery Method Room Air Charges/Coding Procedures Integumentary [id number]: [id number] Global Visit Debridement Note Debridement Note Wound debrided: groin, scrotum, perineal area Laterality: Right Wound Grade/Stage: Stage IV Type of Debridement: Excisional debridement Anesthesia Used: 5% Lidocaine Gel Depth: Down to and including healthy tissue and in the subcutaneous layer Percentage of wound debrided: 100 Instrument Used: 7mm curette Tissue Removed: Devitalized tissue and slough Severity: Fat Layer Exposed Amount of bleeding with debridement: Mild Bleeding Controlled with: Pressure, Compression and gauze and Silver Nitrate (to tunnel area on distal portion of the ulcer) Patient tolerated procedure: Patient tolerated procedure well Post-Debridement Measurements and Additional Note: Post-Debridement Measurements/Treatment BEKA - Nurse 1 - General Ulcer Assessment Start: 01/15/22 09:05 Freq: Status: Active Protocol: WC.LOWEXT Activity Type Activity Date Activity User E-sign Co-sign Detail Recorded Client Recorded Date Recorded By Document 01/15/22 09:06 OK [id number] 01/15/22 09:11 AK Document 01/22/22 09:04 AK [id number] 01/22/22 09:08 AK Document 01/29/22 08:44 AK [id number] 01/29/22 08:55 AK Document 02/07/22 08:47 [facility] [id number] 02/07/22 08:54 [facility] 01/15/22 01/22/22 01/29/22 09:06 09:04 08:44 - Today's Visit Information Type of service Follow-up Visit Follow-up Visit Follow-up Visit (Physician/BAR GAUGER AND LUBRICATOR TENDER (Physician/BAR GAUGER AND LUBRICATOR TENDER (Physician/BAR GAUGER AND LUBRICATOR TENDER ) ) ) Arrival Mode Ambulatory Ambulatory Ambulatory Transfer Assistance Accompanied by Patient Identification Verified (Name & Yes Yes Yes ) Patient Requires Transmission-Based No No No Precautions Vital Signs Temperature (97.8 F-99.1 F) 96.9 F L 97.1 F L 97.2 F L Temperature Source Temporal Temporal Temporal Pulse Rate (60-100) 88 92 91 Pulse Location Monitor Monitor Monitor Respiratory Rate (12-18) Respiratory rate source Oxygen Delivery Method Blood Pressure (90/60-120/80) 167/79 H 204/76 H 179/65 H Blood Pressure Mean (mm Hg) 108 118 103 Source Monitor Monitor Monitor Position Blood Pressure Location History Since Last Visit- (Skip if this is Patient's initial visit) Have you changed medications since your No No No last visit? Any new allergies or adverse reactions No No No Had a fall/change in ADL's that may No No No increase risk of falls Signs or symptoms of abuse and/or No No No neglect since last visit Have you been in the hospital since your No No No last visit? Has dressing in place as prescribed No Yes Yes Has compression in place as prescribed N/A Yes N/A Has offloadiing in place as prescribed N/A N/A N/A Experienced any changes in pain level or No No No management Left Footwear Regular Shoe Regular Shoe Regular Shoe Right Footwear Regular Shoe Regular Shoe Regular Shoe Pain Scale: 0-10 Numeric Is Patient Pain Free? No No Yes 02/07/22 08:47 - Today's Visit Information Type of service Follow-up Visit (Physician/BAR GAUGER AND LUBRICATOR TENDER ) Arrival Mode Ambulatory Transfer Assistance None Accompanied by Patient Identification Verified (Name & Yes ) Patient Requires Transmission-Based No Precautions Vital Signs Temperature (97.8 F-99.1 F) 96.2 F L Temperature Source Temporal Pulse Rate (60-100) 80 Pulse Location Monitor Respiratory Rate (12-18) 16 Respiratory rate source Ventilator Oxygen Delivery Method Room Air Blood Pressure (90/60-120/80) 171/71 H Blood Pressure Mean (mm Hg) 104 Source Monitor Position Sitting Blood Pressure Location Left Arm History Since Last Visit- (Skip if this is Patient's initial visit) Have you changed medications since your No last visit? Any new allergies or adverse reactions No Had a fall/change in ADL's that may No increase risk of falls Signs or symptoms of abuse and/or No neglect since last visit Have you been in the hospital since your No last visit? Has dressing in place as prescribed Yes Has compression in place as prescribed N/A Has offloadiing in place as prescribed N/A Experienced any changes in pain level or No management Left Footwear Regular Shoe Right Footwear Regular Shoe Pain Scale: 0-10 Numeric Is Patient Pain Free? Yes - Nurse 1 - General Ulcer Measurement Start: 01/15/22 09:05 Freq: Status: Active Protocol: Activity Type Activity Date Activity User E-sign Co-sign Detail Recorded Client Recorded Date Recorded By Document 01/15/22 09:06 OK [id number] 01/15/22 09:11 OK Document 01/22/22 09:04 OK [id number] 01/22/22 09:08 OK Document 01/29/22 08:44 OK [id number] 01/29/22 08:55 OK Document 02/07/22 08:47 [facility] [id number] 02/07/22 08:54 [facility] 01/15/22 01/22/22 01/29/22 09:06 09:04 08:44 Wound Center Nurse 1 #6 L Ischium -Combined with other wound No No No -Current Size (cm) - Length 1 0.8 0.5 -Current Size (cm) - Width 1.8 1.5 1 -Current Size (cm) - Depth 0.1 0.1 0.1 -Total Square Cm 1.8 1.20 0.5 -Date of Last Picture (Recall this 01/15/22 01/22/22 01/29/22 field) -Photo Taken Yes Yes Yes -Epithelialization -Tunneling No No No -Undermining/Tunneling No No No -Circular Undermining No No No -Change in Wound Grade/Stage No No No -Exudate Amt None Present Medium Medium -Exudate Type Serosanguineous Serosanguineous -Wound Margin Distinct, Distinct, Distinct, Outline Outline Outline Attached Attached Attached -Granulation Amt None Present (0 Large (67-100%) Large (67-100%) %) -Granulation Quality [place],Red [place] N/A,[place],Red -Slough/Fibrin Yes No No -Necrosis Amt Small (1-33%) None Present (0 None Present (0 %) %) -Necrotic Tissue Type Adherent Slough -Structure Exposed N/A N/A N/A -Texture ([place]imbola-wound Skin Appearance) No Abnormality, No Abnormality, Assessed, Assessed Assessed Scarring -Moisture ([place]ola-wound Skin Appearance) No Abnormality, No Abnormality, No Abnormality, Assessed Assessed Assessed -Color (Abimbola-wound Skin Appearance) No Abnormality, No Abnormality, No Abnormality, Assessed Assessed,Not Assessed Assessed -Temperature (Abimbola-wound Skin No Abnormality No Abnormality No Abnormality Appearance) (Pt Warm) (Pt Warm) (Pt Warm) -Tenderness on Palpation (Abimbola-wound No No No Skin Appearance) -Ulcer Cleansing Soap and Water Soap and Water Rinsed/ Irrigated with Saline -Foul Odor after Cleansing No No No -Anesthetic Used 4% Lidocaine 4% Lidocaine 4% Lidocaine Solution Solution Solution #5scrotum/R Groin Cluster -Combined with other wound No No No -Current Size (cm) - Length 16 11 13 -Current Size (cm) - Width 7.5 5 5.5 -Current Size (cm) - Depth 0.3 0.2 0.2 -Total Square Cm 120.0 55 71.5 -Date of Last Picture (Recall this 01/22/22 field) -Photo Taken No Yes Yes -Epithelialization -Tunneling No No No -Tunneling Position (O'clock) -Tunneling Distance (cm) -Undermining/Tunneling No No No -Circular Undermining No No No -Change in Wound Grade/Stage No No No -Exudate Amt Large Small Large -Exudate Type Yellow/Green Serosanguineous Yellow/Green -Wound Margin Distinct, Distinct, Distinct, Outline Outline Outline Attached Attached Attached -Granulation Amt None Present (0 Medium (34-66%) Large (67-100%) %) -Granulation Quality N/A,[place],Red -Slough/Fibrin No No No -Necrosis Amt Small (1-33%) None Present (0 None Present (0 %) %) -Necrotic Tissue Type -Structure Exposed N/A N/A N/A -Texture ([place]-wound Skin Appearance) No Abnormality, No Abnormality, No Abnormality, Assessed Assessed Assessed -Moisture (Abimbola-wound Skin Appearance) No Abnormality, No Abnormality, No Abnormality, Assessed Assessed Assessed -Color ([place]imbola-wound Skin Appearance) No Abnormality, No Abnormality, No Abnormality, Assessed Assessed Assessed -Temperature ([place]imbola-wound Skin No Abnormality No Abnormality No Abnormality Appearance) (Pt Warm) (Pt Warm) (Pt Warm) -Tenderness on Palpation (Abimbola-wound No No No Skin Appearance) -Ulcer Cleansing Soap and Water Soap and Water Rinsed/ Irrigated with Saline -Foul Odor after Cleansing No No No -Anesthetic Used 4% Lidocaine 4% Lidocaine 4% Lidocaine Solution Solution Solution 02/07/22 08:47 Wound Center Nurse 1 #6 L Ischium -Combined with other wound No -Current Size (cm) - Length 0.7 -Current Size (cm) - Width 1.2 -Current Size (cm) - Depth 0.1 -Total Square Cm 0.84 -Date of Last Picture (Recall this 02/07/22 field) -Photo Taken Yes -Epithelialization Small 1-33% -Tunneling No -Undermining/Tunneling No -Circular Undermining No -Change in Wound Grade/Stage -Exudate Amt Small -Exudate Type Serosanguineous -Wound Margin Distinct, Outline Attached -Granulation Amt Large (67-100%) -Granulation Quality [place] -Slough/Fibrin No -Necrosis Amt None Present (0 %) -Necrotic Tissue Type -Structure Exposed -Texture ([place]-wound Skin Appearance) Assessed, Scarring -Moisture ([place]imbola-wound Skin Appearance) Assessed -Color ([place]imbola-wound Skin Appearance) Assessed -Temperature ([place]-wound Skin No Abnormality Appearance) (Pt Warm) -Tenderness on Palpation (Abimbola-wound No Skin Appearance) -Ulcer Cleansing Soap and Water -Foul Odor after Cleansing No -Anesthetic Used 4% Lidocaine Solution #5scrotum/R Groin Cluster -Combined with other wound No -Current Size (cm) - Length 9.2 -Current Size (cm) - Width 4.2 -Current Size (cm) - Depth 1.2 -Total Square Cm 38.64 -Date of Last Picture (Recall this 02/07/22 field) -Photo Taken Yes -Epithelialization Small 1-33% -Tunneling Yes -Tunneling Position (O'clock) 6 -Tunneling Distance (cm) 3.3 -Undermining/Tunneling No -Circular Undermining No -Change in Wound Grade/Stage -Exudate Amt Large -Exudate Type Serosanguineous -Wound Margin Distinct, Outline Attached -Granulation Amt Large (67-100%) -Granulation Quality Red -Slough/Fibrin Yes -Necrosis Amt Small (1-33%) -Necrotic Tissue Type Adherent Slough -Structure Exposed -Texture ([place]imbola-wound Skin Appearance) Assessed, Scarring -Moisture ([place]imbola-wound Skin Appearance) Assessed -Color (Abimbola-wound Skin Appearance) Assessed -Temperature ([place]imbola-wound Skin No Abnormality Appearance) (Pt Warm) -Tenderness on Palpation (Abimbola-wound No Skin Appearance) -Ulcer Cleansing Soap and Water -Foul Odor after Cleansing No -Anesthetic Used 4% Lidocaine Solution WC - Nurse 2 - General Ulcer CM Notes Start: 01/15/22 09:05 Freq: Status: Active Protocol: Activity Type Activity Date Activity User E-sign Co-sign Detail Recorded Client Recorded Date Recorded By Document 01/15/22 09:28 [id number] 01/15/22 09:35 Document 01/22/22 09:24 [id number] 01/22/22 09:30 Document 01/29/22 09:12 [id number] 01/29/22 09:17 Document 02/07/22 09:11 [id number] 02/07/22 09:15 01/15/22 01/22/22 01/29/22 09:28 09:24 09:12 Wound Center Nurse 2 #6 L Ischium -Time 09:28 09:24 09:12 -Correct Patient Yes Yes Yes -Correct Side, Site, Position Yes Yes Yes -Correct Procedure Yes Yes Yes -Procedure Performed Yes Yes Yes -Type of Procedure Debridement Debridement Debridement -Clinical Debridement Subcutaneous Subcutaneous Subcutaneous -Tissue Removed Subcutaneous Subcutaneous Subcutaneous -Post Debridement (cm) - Length 1.2 1.1 1.0 -Post Debridement (cm) - Width 2 1.9 1.8 -Post Debridement (cm) - Depth 0.1 0.1 0.1 -Total Square (Post) (cm) 2.4 2.09 1.80 -Area of Debridement (cm) - Length 1.2 1.1 1.0 -Area of Debridement (cm) - Width 2 1.9 1.8 -Total Square (Area) (cm) 2.4 2.09 1.80 -Tunneling No No No -Undermining/Tunneling No No No -Circular Undermining No No No -Wound/Ulcer Outcome Not Healed Not Healed Not Healed -Ulcer Cleansing Rinsed/ Rinsed/ Rinsed/ Irrigated with Irrigated with Irrigated with Saline Saline Saline -Foul Odor after Cleansing No No No -Bioengineered Tissue No No No -Bleeding Controlled with Pressure Pressure Pressure -Treatment Response Procedure Procedure Procedure Tolerated Well Tolerated Well Tolerated Well -Offloading No No No -Debridement - Subq, 1st 20sq cm No No No #5scrotum/R Groin Cluster -Time 09:29 09:25 09:12 -Correct Patient Yes Yes Yes -Correct Side, Site, Position Yes Yes Yes -Correct Procedure Yes Yes Yes -Procedure Performed Yes Yes Yes -Type of Procedure Debridement Debridement Debridement -Clinical Debridement Subcutaneous Subcutaneous Subcutaneous -Tissue Removed Subcutaneous Subcutaneous Subcutaneous -Post Debridement (cm) - Length 13 12.0 12.2 -Post Debridement (cm) - Width 6.5 7.0 5.2 -Post Debridement (cm) - Depth 1.4 1.4 1.5 -Total Square (Post) (cm) 84.5 84.00 63.44 -Area of Debridement (cm) - Length 13 12.0 12.2 -Area of Debridement (cm) - Width 6.5 7 5.2 -Total Square (Area) (cm) 84.5 84.0 63.44 -Tunneling Yes No No -Tunneling Position (O'clock) 6 5 -Tunneling Distance (cm) 0.5 2.1 -Tunneling Position #2 (O'clock) 12 -Tunneling Distance #2 (cm) 1.5 -Undermining/Tunneling No No Yes -Circular Undermining No No No -Wound/Ulcer Outcome Not Healed Not Healed Not Healed -Ulcer Cleansing Rinsed/ Rinsed/ Rinsed/ Irrigated with Irrigated with Irrigated with Saline Saline Saline -Foul Odor after Cleansing No No No -Bioengineered Tissue No No No -Bleeding Controlled with Pressure Pressure Pressure -Treatment Response Procedure Procedure Procedure Tolerated Well Tolerated Well Tolerated Well -Offloading No No No -Debridement - Subq, 1st 20sq cm Yes Yes Yes -Debridement, SubQ, ea addt'l 20sq cm 4 4 3 or part thereof -Debridement - Muscle / Fascia, 1st Yes 20sq cm Pain Scale: 0-10 Numeric Is Patient Pain Free? Yes Yes Yes 02/07/22 09:11 Wound Center Nurse 2 #6 L Ischium -Time 09:11 -Correct Patient Yes -Correct Side, Site, Position Yes -Correct Procedure Yes -Procedure Performed Yes -Type of Procedure Debridement -Clinical Debridement Subcutaneous -Tissue Removed Subcutaneous -Post Debridement (cm) - Length 0.7 -Post Debridement (cm) - Width 1.5 -Post Debridement (cm) - Depth 0.1 -Total Square (Post) (cm) 1.05 -Area of Debridement (cm) - Length 0.7 -Area of Debridement (cm) - Width 1.5 -Total Square (Area) (cm) 1.05 -Tunneling No -Undermining/Tunneling No -Circular Undermining No -Wound/Ulcer Outcome Not Healed -Ulcer Cleansing Rinsed/ Irrigated with Saline -Foul Odor after Cleansing No -Bioengineered Tissue No -Bleeding Controlled with Pressure -Treatment Response Procedure Tolerated Well -Offloading No -Debridement - Subq, 1st 20sq cm No #5scrotum/R Groin Cluster -Time 09:12 -Correct Patient Yes -Correct Side, Site, Position Yes -Correct Procedure Yes -Procedure Performed Yes -Type of Procedure Debridement -Clinical Debridement Subcutaneous -Tissue Removed Subcutaneous -Post Debridement (cm) - Length 9.5 -Post Debridement (cm) - Width 5.0 -Post Debridement (cm) - Depth 0.5 -Total Square (Post) (cm) 47.50 -Area of Debridement (cm) - Length 9.5 -Area of Debridement (cm) - Width 5.0 -Total Square (Area) (cm) 47.50 -Tunneling Yes -Tunneling Position (O'clock) 6 -Tunneling Distance (cm) 3 -Tunneling Position #2 (O'clock) -Tunneling Distance #2 (cm) -Undermining/Tunneling -Circular Undermining No -Wound/Ulcer Outcome Not Healed -Ulcer Cleansing Rinsed/ Irrigated with Saline -Foul Odor after Cleansing No -Bioengineered Tissue No -Bleeding Controlled with Pressure,Silver Nitrate -Treatment Response Procedure Tolerated Well -Offloading No -Debridement - Subq, 1st 20sq cm Yes -Debridement, SubQ, ea addt'l 20sq cm 2 or part thereof -Debridement - Muscle / Fascia, 1st 20sq cm Pain Scale: 0-10 Numeric Is Patient Pain Free? Yes WC - Nurse 3 - General Ulcer D/C NN Start: 01/15/22 09:05 Freq: Status: Active Protocol: Activity Type Activity Date Activity User E-sign Co-sign Detail Recorded Client Recorded Date Recorded By Document 01/15/22 09:45 DL [id number] 01/15/22 09:46 DL Document 01/22/22 10:01 PL [id number] 01/22/22 10:02 PL Document 01/29/22 09:30 DL [id number] 01/29/22 09:32 DL Document 02/07/22 09:21 BM [id number] 02/07/22 09:22 [facility] 01/15/22 01/22/22 01/29/22 09:45 10:01 09:30 Wound Care Nurse 3 #6 L Ischium -Ulcer Cleansing Soap and Water Rinsed/ Not Cleansed Irrigated with Saline -Foul Odor after Cleansing No No No -Primary Dressing Applied C Hydrogel ($) C Hydrogel ($) -Other Dressing Hydrogel -Primary Dressing Covered/Secured with Dry Gauze Dry Gauze, Dry Gauze Secured with Tape -Other Covering coban coban #5scrotum/R Groin Cluster -Ulcer Cleansing Soap and Water Rinsed/ Soap and Water Irrigated with Saline -Foul Odor after Cleansing No No No -Other Dressing saline gauze Saline gauze moist saline gauze -Primary Dressing Covered/Secured with Dry Gauze Dry Gauze, Dry Gauze Secured with Tape -Other Covering ABD/Coban coban Treatment Response Procedure Procedure Tolerated Well Tolerated Well Pain Scale: 0-10 Numeric Is Patient Pain Free? Yes Yes Yes WC - Visit Discharge Discharge Condition Stable Stable Stable Ambulatory Status Ambulatory Ambulatory Ambulatory Transportation Private Auto Private Auto Private Auto Accompanied by Notes: Pt to resume Dakins at home. Facility Type 02/07/22 09:21 Wound Care Nurse 3 #6 L Ischium -Ulcer Cleansing Rinsed/ Irrigated with Saline -Foul Odor after Cleansing No -Primary Dressing Applied C Hydrogel ($) -Other Dressing abd, drsg per dl terrestrial ecologist -Primary Dressing Covered/Secured with Dry Gauze, Secured with Tape -Other Covering #5scrotum/R Groin Cluster -Ulcer Cleansing Rinsed/ Irrigated with Saline -Foul Odor after Cleansing No -Other Dressing abd; moist to dry; refuses dakins after debridement -Primary Dressing Covered/Secured with Secured with Tape -Other Covering Treatment Response Procedure Tolerated Well Pain Scale: 0-10 Numeric Is Patient Pain Free? Yes WC - Visit Discharge Discharge Condition Stable Ambulatory Status Ambulatory Transportation Private Auto Accompanied by Notes: Facility Type Home Health Additional Wound Wound debrided: ischial ulcer Laterality: Left Wound Grade/Stage: Stage II Type of Debridement: Excisional debridement Depth: Down to and including healthy tissue and in the subcutaneous layer Percentage of wound debrided: 100 Instrument Used: 3mm curette Tissue Removed: Devitalized tissue and slough Severity: Fat Layer Exposed Amount of bleeding with debridement: Mild Bleeding Controlled with: Pressure and Compression and gauze Patient tolerated procedure: Patient tolerated procedure well Assessment/Plan Assessment/Plan (1) Ulcer of right groin with fat layer exposed: CODE(S): L98.492 - Non-pressure chronic ulcer of skin of other sites with fat layer exposed (2) Ulcer of scrotum: CODE(S): N50.89 - Other specified disorders of the male genital organs (3) Ulcer of perineum with fat layer exposed: CODE(S): L98.492 - Non-pressure chronic ulcer of skin of other sites with fat layer exposed (4) Chronic ulcer of buttock: CODE(S): L98.419 - Non-pressure chronic ulcer of buttock with unspecified severity (5) Suppurative hidradenitis: CODE(S): L73.2 - Hidradenitis suppurativa (6) Smoker: CODE(S): F17.200 - Nicotine dependence, unspecified, uncomplicated (7) Hypertension: CODE(S): I10 - Essential (primary) hypertension QUALIFIERS: Hypertension type: primary hypertension Qualified Code(s): I10 - Essential (primary) hypertension (8) Acute postoperative anemia due to expected blood loss: CODE(S): D62 - Acute posthemorrhagic anemia (9) Diabetes type 2, uncontrolled: CODE(S): E11.65 - Type 2 diabetes mellitus with hyperglycemia (10) Hypokalemia: CODE(S): E87.6 - Hypokalemia (11) Hemoglobin A1c greater than 8.0 percent: CODE(S): R73.09 - Other abnormal glucose (12) Post-operative pain: CODE(S): G89.18 - Other acute postprocedural pain PLAN: Plan Patient was evaluated at the wound healing center. Operative wound cultures from 11/23/21 positive for Streptococcus constellatus and Corynebacterium striatum. He was started on Cefdinir 300mg BID. Creatinine repeat on 11/27/21, which was down to 1.62 from 1.73 on 11/25/21. Also, repeat K+ 4.0. Patient restarted Plavix. Wound care - Saline moistened gauze on the day of debridement then Dakin's 0.25% moistened covered by ABD/super absorber daily and prn to right groin. Make sure to pack into the base of the tunnels and undermining. Left ischial ulcer collagen hydrogel covered with gauze daily. Encouraged increase protein intake and increase Vitamin C intake. Will need supplemental protein to help heal this wound. Encouraged patient to stop smoking as it may have deleterious effects on wound healing. Follow up one week. Call or come in sooner if develop any questions or concerns.
== END 2022-02-10 23:59 | disposition home or self-care (01) ==
LOC: WC 09:15
PROVIDERS: PCP Nurse Practitioner; Referring Provider Nurse Practitioner Family; Visit Provider Nurse Practitioner Family
DX: L73.2 Hidradenitis suppurativa (principal); E11.622 Type 2 diabetes mellitus with other skin ulcer; L98.492 Non-pressure chronic ulcer of skin of other sites with fat layer exposed; E11.65 Type 2 diabetes mellitus with hyperglycemia; R79.9 Abnormal finding of blood chemistry, unspecified; I25.10 Atherosclerotic heart disease of native coronary artery without angina pectoris; G89.18 Other acute postprocedural pain; I10 Essential (primary) hypertension
CPT/HCPCS: 11042; 11043; 11045

== ENCOUNTER 2022-03-05 09:15 | Outpatient (RCR) | payer BC, SELFPAY ==
[2022-02-11 00:28] VITALS: BP 171/71; PULSE 80; RESP 16; TEMP 35.7
[2022-02-14 08:39] VITALS: BP 183/52; PULSE 71; RESP 18; TEMP 36.1
--- NOTE | 2022-02-14 09:50 | PCM.WC.PN ---
History of Present Illness Date of Service: 02/14/22 Chief Complaint: Excision of hidradenitis of right inguinal, scrotal and perineal area History of Wound: 56 year old male who is known to me. He has a history significant for hidradenitis, DM type II, HTN, CAD, arterial insufficiency, and smoker. He had surgery on 11/23/21 for 1. Surgical preparation right inguinal area with excision suppurative hidradenitis abscess (112 cm2, and 192 cm2 total). 2. Surgical preparation right scrotum with incision and drainage and excision suppurative hidradenitis abscess (50 cm2, and 192 cm2 total). 3. Surgical preparation right perineal area with excision suppurative hidradenitis abscess (30 cm2, and 192 cm2 total). Operative wound cultures from 11/23/21 positive for Streptococcus constellatus and Corynebacterium striatum. He was started on Cefdinir 300mg BID. Creatinine repeat today, 11/27/21, down to 1.62 from 1.73 on 11/25/21. Wound care - Dakin's 0.25% moistened gauze covered by ABD/super absorber daily and prn to right groin. Left ischial ulcer aquacel-ag covered with gauze daily. Today he denies fevers, chills, nausea and vomiting. He states that he has a good appetite. Other history: Surgery 03/22/20 - 1. Surgical preparation left inguinal area with excision hidradenitis (315 cm2 total wound). 2. Surgical preparation perineal area with excision hidradenitis (315 cm2 total wound). 3. Surgical preparation base left scrotum with incision and drainage and excision hidradenitis (315 cm2 total wound). Operative culture from 03/22/20 - Enterococcus faecalis and Streptococcus group F, Anaerobic cocci and Prevotella bivia. He was treated with Linezolid and Flagyl and has completed them. He saw Dr. Kasey live had an angioplasty of some of his vessels in his legs. Patient admitted to the hospital for increased redness and swelling of his left groin and buttocks on 09/27/20. Patient was started on IV Vancomycin, Levaquin and Flagyl by ID. Surgery 09/29/20 - 1. Surgical preparation left perianal area with excision hidradenitis abscess (144 cm2). 2. Surgical preparation left posterior thigh with incision and drainage and excisional debridement hidradenitis abscess (96 cm2). Operative cultures from 09/29/20 positive for Streptococcus constellatus, Corynebacterium striatum, Anaerobic cocci, and Prevotella species. Pathology of left perianal and left posterior thigh abscess showed pieces of skin with underlying tisse with acute and chronic inflammation, granulation tissue reaction and abscess formation. 10/01/20 - Laparoscopic sigmoid colostomy placed by Dr. Osorio due to the complicated perineal wound secondary to hidradenitis suppurativa status post excision. Progress of Wound: Right groin wound has improved. Wound bed is pink. The tunneling and undermining are improving. He is experiencing increased pain with the Dakin's solution on the day of debridement, so he is using saline moistened gauze on the day he is debrided, then Dakin's moistened gauze daily after that. Left ischial ulcer is slightly smaller. He is experiencing increased pain of the left ischial ulcer that radiates down his leg. He is very tender to light palpation in the entire area. Objective Data Objective Data Vital Signs: Vital Signs Temp Pulse Resp BP 97 F L 71 18 183/52 H 02/14/22 08:39 02/14/22 08:39 02/14/22 08:39 02/14/22 08:39 Charges/Coding Procedures Integumentary 111xxx-113xx: [id number] Ayla subq tissue 20 sq cm/< (left ischial area) Debridement Note Debridement Note Wound debrided: groin, scrotum, perineal area Laterality: Right Wound Grade/Stage: Stage IV Type of Debridement: Excisional debridement Anesthesia Used: 5% Lidocaine Gel Depth: Down to and including healthy tissue and in the subcutaneous layer Percentage of wound debrided: 100 Instrument Used: 7mm curette Tissue Removed: Devitalized tissue and slough Severity: Fat Layer Exposed Amount of bleeding with debridement: Mild Bleeding Controlled with: Pressure and Compression and gauze Patient tolerated procedure: Patient tolerated procedure well Post-Debridement Measurements and Additional Note: Post-Debridement Measurements/Treatment BEKA - Nurse 1 - General Ulcer Assessment Start: 02/14/22 08:39 Freq: Status: Active Protocol: ROC Activity Type Activity Date Activity User E-sign Co-sign Detail Recorded Client Recorded Date Recorded By Document 02/14/22 08:39 RB [id number] 02/14/22 08:44 RB 02/14/22 08:39 WC - Today's Visit Information Type of service Follow-up Visit (Physician/EQUAL OPPORTUNITY OFFICER ) Arrival Mode Ambulatory Transfer Assistance None Patient Identification Verified (Name & Yes ) Patient Requires Transmission-Based No Precautions Vital Signs Temperature (97.8 F-99.1 F) 97 F L Temperature Source Temporal Pulse Rate (60-100) 71 Pulse Location Apical Respiratory Rate (12-18) 18 Respiratory rate source Observation Blood Pressure (90/60-120/80) 183/52 H Blood Pressure Mean (mm Hg) 95 Source Monitor Position Semi-Fowlers Blood Pressure Location Left Arm History Since Last Visit- (Skip if this is Patient's initial visit) Have you changed medications since your No last visit? Any new allergies or adverse reactions No Had a fall/change in ADL's that may No increase risk of falls Signs or symptoms of abuse and/or No neglect since last visit Have you been in the hospital since your No last visit? Has dressing in place as prescribed Yes Has compression in place as prescribed No Has offloadiing in place as prescribed No Experienced any changes in pain level or No management Pain Scale: 0-10 Numeric Is Patient Pain Free? Yes - Nurse 1 - General Ulcer Measurement Start: 02/14/22 08:39 Freq: Status: Active Protocol: Activity Type Activity Date Activity User E-sign Co-sign Detail Recorded Client Recorded Date Recorded By Document 02/14/22 08:39 [id number] 02/14/22 08:44 RB 02/14/22 08:39 Wound Center Nurse 1 #6 L Ischium -Combined with other wound No -Current Size (cm) - Length 0.5 -Current Size (cm) - Width 1 -Current Size (cm) - Depth 0.1 -Total Square Cm 0.5 -Tunneling No -Undermining/Tunneling No -Circular Undermining No -Exudate Amt Small -Exudate Type Serosanguineous -Wound Margin Distinct, Outline Attached -Granulation Amt Large (67-100%) -Granulation Quality [place] -Slough/Fibrin Yes -Necrosis Amt Small (1-33%) -Necrotic Tissue Type Adherent Slough -Structure Exposed N/A -Texture ([place]-wound Skin Appearance) Assessed, Scarring -Moisture ([place]-wound Skin Appearance) Assessed -Color ([place]-wound Skin Appearance) Assessed -Temperature ([place]-wound Skin No Abnormality Appearance) (Pt Warm) -Tenderness on Palpation ([place]-wound No Skin Appearance) -Ulcer Cleansing Wound Cleanser -Foul Odor after Cleansing No -Anesthetic Used 4% Lidocaine Solution #5scrotum/R Groin Cluster -Combined with other wound No -Current Size (cm) - Length 10.4 -Current Size (cm) - Width 4.4 -Current Size (cm) - Depth 0.4 -Total Square Cm 45.76 -Tunneling Yes -Tunneling Position (O'clock) 6 -Tunneling Distance (cm) 2.7 -Undermining/Tunneling No -Exudate Amt Large -Exudate Type Serosanguineous -Wound Margin Distinct, Outline Attached -Granulation Amt Large (67-100%) -Granulation Quality [place] -Slough/Fibrin Yes -Necrosis Amt Small (1-33%) -Necrotic Tissue Type Adherent Slough -Structure Exposed N/A -Texture ([place]-wound Skin Appearance) Assessed -Moisture ([place]-wound Skin Appearance) Assessed -Color ([place]-wound Skin Appearance) Assessed -Temperature ([place]-wound Skin No Abnormality Appearance) (Pt Warm) -Tenderness on Palpation ([place]-wound No Skin Appearance) -Ulcer Cleansing Wound Cleanser -Foul Odor after Cleansing No -Anesthetic Used 4% Lidocaine Solution WC - Nurse 2 - General Ulcer CM Notes Start: 02/14/22 08:39 Freq: Status: Active Protocol: Activity Type Activity Date Activity User E-sign Co-sign Detail Recorded Client Recorded Date Recorded By Document 02/14/22 08:59 LIZETTE [id number] 02/14/22 09:01 JF Edit Result 02/14/22 08:59 LIZETTE (1) [id number] 02/14/22 09:06 JF (1) #5scrotum/R Groin Cluster - Tunneling No => Yes - Tunneling Position (O'clock) => 6 - Tunneling Distance (cm) => 2.8 02/14/22 08:59 Wound Center Nurse 2 #6 L Ischium -Time 08:59 -Correct Patient Yes -Correct Side, Site, Position Yes -Correct Procedure Yes -Procedure Performed Yes -Type of Procedure Debridement -Clinical Debridement Subcutaneous -Tissue Removed Subcutaneous -Post Debridement (cm) - Length 0.7 -Post Debridement (cm) - Width 1.3 -Post Debridement (cm) - Depth 0.1 -Total Square (Post) (cm) 0.91 -Area of Debridement (cm) - Length 0.7 -Area of Debridement (cm) - Width 1.3 -Total Square (Area) (cm) 0.91 -Tunneling No -Undermining/Tunneling No -Circular Undermining No -Ulcer Cleansing Rinsed/ Irrigated with Saline -Foul Odor after Cleansing No -Bioengineered Tissue No -Bleeding Controlled with Pressure -Treatment Response Procedure Tolerated Well -Offloading No -Debridement - Subq, 1st 20sq cm No #5scrotum/R Groin Cluster -Time 08:59 -Correct Patient Yes -Correct Side, Site, Position Yes -Correct Procedure Yes -Procedure Performed Yes -Type of Procedure Debridement -Clinical Debridement Subcutaneous -Tissue Removed Subcutaneous -Post Debridement (cm) - Length 9.5 -Post Debridement (cm) - Width 4.7 -Post Debridement (cm) - Depth 0.3 -Total Square (Post) (cm) 44.65 -Area of Debridement (cm) - Length 9.5 -Area of Debridement (cm) - Width 4.7 -Total Square (Area) (cm) 44.65 -Tunneling Yes -Tunneling Position (O'clock) 6 -Tunneling Distance (cm) 2.8 -Undermining/Tunneling No -Circular Undermining No -Wound/Ulcer Outcome Not Healed -Ulcer Cleansing Rinsed/ Irrigated with Saline -Foul Odor after Cleansing No -Bioengineered Tissue No -Bleeding Controlled with Pressure -Treatment Response Procedure Tolerated Well -Offloading No -Debridement - Subq, 1st 20sq cm Yes -Debridement, SubQ, ea addt'l 20sq cm 2 or part thereof Pain Scale: 0-10 Numeric Is Patient Pain Free? Yes WC - Nurse 3 - General Ulcer D/C NN Start: 02/14/22 08:39 Freq: Status: Active Protocol: Activity Type Activity Date Activity User E-sign Co-sign Detail Recorded Client Recorded Date Recorded By Document 02/14/22 09:16 DL [id number] 02/14/22 09:17 DL 02/14/22 09:16 Wound Care Nurse 3 #6 L Ischium -Ulcer Cleansing Wound Cleanser -Foul Odor after Cleansing No -Other Dressing hydrogel -Primary Dressing Covered/Secured with Dry Gauze -Other Covering coban #5scrotum/R Groin Cluster -Ulcer Cleansing Rinsed/ Irrigated with Saline -Foul Odor after Cleansing No -Other Dressing moistened gauze -Other Covering ABD/[place] Treatment Response Procedure Tolerated Well Pain Scale: 0-10 Numeric Is Patient Pain Free? Yes WC - Visit Discharge Discharge Condition Stable Ambulatory Status Ambulatory Transportation Private Auto Orders Sent Yes Additional Wound Wound debrided: ischial ulcer Laterality: Left Wound Grade/Stage: Stage II Type of Debridement: Excisional debridement Depth: Down to and including healthy tissue and in the subcutaneous layer Percentage of wound debrided: 100 Instrument Used: 3mm curette Tissue Removed: Devitalized tissue and slough Severity: Fat Layer Exposed Amount of bleeding with debridement: Mild Bleeding Controlled with: Compression and gauze Patient tolerated procedure: Patient tolerated procedure well Assessment/Plan Assessment/Plan (1) Ulcer of right groin with fat layer exposed: CODE(S): L98.492 - Non-pressure chronic ulcer of skin of other sites with fat layer exposed (2) Ulcer of scrotum: CODE(S): N50.89 - Other specified disorders of the male genital organs (3) Ulcer of perineum with fat layer exposed: CODE(S): L98.492 - Non-pressure chronic ulcer of skin of other sites with fat layer exposed (4) Chronic ulcer of buttock: CODE(S): L98.419 - Non-pressure chronic ulcer of buttock with unspecified severity (5) Suppurative hidradenitis: CODE(S): L73.2 - Hidradenitis suppurativa (6) Smoker: CODE(S): F17.200 - Nicotine dependence, unspecified, uncomplicated (7) Hypertension: CODE(S): I10 - Essential (primary) hypertension QUALIFIERS: Hypertension type: primary hypertension Qualified Code(s): I10 - Essential (primary) hypertension (8) Diabetes type 2, uncontrolled: CODE(S): E11.65 - Type 2 diabetes mellitus with hyperglycemia (9) Hemoglobin A1c greater than 8.0 percent: CODE(S): R73.09 - Other abnormal glucose (10) Post-operative pain: CODE(S): G89.18 - Other acute postprocedural pain PLAN: Plan Patient was evaluated at the wound healing center. Operative wound cultures from 11/23/21 positive for Streptococcus constellatus and Corynebacterium striatum. He completed Cefdinir 300mg BID. Creatinine repeat on 11/27/21, which was down to 1.62 from 1.73 on 11/25/21. Also, repeat K+ 4.0. Patient is on his Plavix. Wound care - Saline moistened gauze on the day of debridement then Dakin's 0.25% moistened covered by ABD/super absorber daily and prn to right groin. Make sure to pack into the base of the tunnels and undermining. Left ischial ulcer Aquacel-Ag covered with gauze daily. Encouraged increase protein intake and increase Vitamin C intake. Will need supplemental protein to help heal this wound. Encouraged patient to stop smoking as it may have deleterious effects on wound healing. Patient sees dermatology who is managing the medical portion of his hidradenitis. Follow up one week. Call or come in sooner if develop any questions or concerns.
[2022-02-19 08:53] VITALS: BP 184/62; PULSE 79; TEMP 36.2
--- NOTE | 2022-02-19 11:45 | PN.PCM_ITS ---
History of Present Illness Date of Service: 02/19/22 Chief Complaint: Excision of hidradenitis of right inguinal, scrotal and p erineal area History of Wound: 56 year old male who is known to me. He has a history significant for hidradenitis, DM type II, HTN, CAD, arterial insufficiency, and smoker. He had surgery on 11/23/21 for 1. Surgical preparation right inguinal area with excision suppurative hidradenitis abscess (112 cm2, and 192 cm2 total). 2. Surgical preparation right scrotum with incision and drainage and excision suppurative hidradenitis abscess (50 cm2, and 192 cm2 total). 3. Surgical preparation right perineal area with excision suppurative hidradenitis abscess (30 cm2, and 192 cm2 total). Operative wound cultures from 11/23/21 positive for Streptococcus constellatus and Corynebacterium striatum. He was started on Cefdinir 300mg BID. Creatinine repeat today, 11/27/21, down to 1.62 from 1.73 on 11/25/21. Wound care - Dakin's 0.25% moistened gauze covered by ABD/super absorber daily and prn to right groin. Left ischial ulcer aquacel-ag covered with gauze daily. Today he denies fevers, chills, nausea and vomiting. He states that he has a good appetite. Other history: Surgery 03/22/20 - 1. Surgical preparation left inguinal area with excision hidradenitis (315 cm2 total wound). 2. Surgical preparation perineal area with excision hidradenitis (315 cm2 total wound). 3. Surgical preparation base left scrotum with incision and drainage and excision hidradenitis (315 cm2 total wound). Operative culture from 03/22/20 - Enterococcus faecalis and Streptococcus group F, Anaerobic cocci and Prevotella bivia. He was treated with Linezolid and Flagyl and has completed them. He saw Dr. Kasey live had an angioplasty of some of his vessels in his legs. Patient admitted to the hospital for increased redness and swelling of his left groin and buttocks on 09/27/20. Patient was started on IV Vancomycin, Levaquin and Flagyl by ID. Surgery 09/29/20 - 1. Surgical preparation left perianal area with excision hidradenitis abscess (144 cm2). 2. Surgical preparation left posterior thigh with incision and drainage and excisional debridement hidradenitis abscess (96 cm2). Operative cultures from 09/29/20 positive for Streptococcus constellatus, Co rynebacterium striatum, Anaerobic cocci, and Prevotella species. Pathology of left perianal and left posterior thigh abscess showed pieces of skin with underlying tisse with acute and chronic inflammation, granulation tissue reaction and abscess formation. 10/01/20 - Laparoscopic sigmoid colostomy placed by Dr. Osorio due to the complicated perineal wound secondary to hidradenitis suppurativa status post excision. Progress of Wound: Right groin wound has improved. Wound bed is pink. The tunneling and undermining are improving. He is experiencing increased pain with the Dakin's solution on the day of debridement, so he is using saline moistened gauze on the day he is debrided, then Dakin's moistened gauze daily after that. Left ischial ulcer is stable. Wound culture from last week was negative for bacterial growth. He has a new ulceration on his right scrotal area that is proximal to the groin ulcer. There are white pustules in the base of the ulcer. Objective Data Objective Data Vital Signs: Vital Signs Temp Pulse Resp BP 97.1 F L 79 18 184/62 H 02/19/22 08:53 02/19/22 08:53 02/14/22 08:39 02/19/22 08:53 Lab / Micro Data Micro: Microbiology 02/14/22 Unknown Wound Abcess - Ischium Gram Stain - Final 02/14/22 Unknown Wound Abcess - Ischium Wound Culture - Final Corynebacterium striatum 02/14/22 Unknown Wound Abcess - Ischium Anaerobic Culture - Preliminary Charges/Coding Procedures Integumentary [id number]: [id number] Ayla subq tissue 20 sq cm/< (Left ischial ulcer and right scrotal ulcer.) Debridement Note Debridement Note Wound debrided: groin, scrotum, perineal area Laterality: Right Wound Grade/Stage: Stage IV Type of Debridement: Excisional debridement Anesthesia Used: 5% Lidocaine Gel Depth: Down to and including healthy tissue and in the subcutaneous layer Percentage of wound debrided: 100 Instrument Used: 7mm curette Tissue Removed: Devitalized tissue and slough Severity: Fat Layer Exposed Amount of bleeding with debridement: Mild Bleeding Controlled with: Pressure and Compression and gauze Patient tolerated procedure: Patient tolerated procedure well Debridement Free Text: He has a new area on his right scrotum just proximal to the larger ulcer. Post-Debridement Measurements and Additional Note: Post-Debridement Measurements/Treatment WC - Nurse 1 - General Ulcer Assessment Start: 02/14/22 08:39 Freq: Status: Active Protocol: ROC Activity Type Activity Date Activity User E-sign Co-sign Detail Recorded Client Recorded Date Recorded By Document 02/14/22 08:39 RB [id number] 02/14/22 08:44 RB Document 02/19/22 08:53 AK [id number] 02/19/22 08:57 AK 02/14/22 02/19/22 08:39 08:53 WC - Today's Visit Information Type of service Follow-up Visit Follow-up Visit (Physician/GINGER FARMER (Physician/GINGER FARMER ) ) Arrival Mode Ambulatory Ambulatory Transfer Assistance None Patient Identification Verified (Name & Yes Yes ) Patient Requires Transmission-Based No No Precautions Vital Signs Temperature (97.8 F-99.1 F) 97 F L 97.1 F L Temperature Source Temporal Temporal Pulse Rate (60-100) 71 79 Pulse Location Apical Monitor Respiratory Rate (12-18) 18 Respiratory rate source Observation Blood Pressure (90/60-120/80) 183/52 H 184/62 H Blood Pressure Mean (mm Hg) 95 102 Source Monitor Monitor Position Semi-Fowlers Blood Pressure Location Left Arm History Since Last Visit- (Skip if this is Patient's initial visit) Have you changed medications since your No No last visit? Any new allergies or adverse reactions No No Had a fall/change in ADL's that may No No increase risk of falls Signs or symptoms of abuse and/or No No neglect since last visit Have you been in the hospital since your No No last visit? Has dressing in place as prescribed Yes Yes Has compression in place as prescribed No N/A Has offloadiing in place as prescribed No N/A Experienced any changes in pain level or No No management Left Footwear Regular Shoe Right Footwear Regular Shoe Pain Scale: 0-10 Numeric Is Patient Pain Free? Yes No BEKA Corley Nurse 1 - General Ulcer Measurement Start: 02/14/22 08:39 Freq: Status: Active Protocol: Activity Type Activity Date Activity User E-sign Co-sign Detail Recorded Client Recorded Date Recorded By Document 02/14/22 08:39 RB [id number] 02/14/22 08:44 RB Document 02/19/22 08:53 AK [id number] 02/19/22 08:57 AK 02/14/22 02/19/22 08:39 08:53 Wound Center Nurse 1 #6 L Ischium -Combined with other wound No No -Current Size (cm) - Length 0.5 0.4 -Current Size (cm) - Width 1 1 -Current Size (cm) - Depth 0.1 0.1 -Total Square Cm 0.5 0.4 -Date of Last Picture (Recall this 02/19/22 field) -Photo Taken Yes -Tunneling No No -Undermining/Tunneling No No -Circular Undermining No No -Change in Wound Grade/Stage No -Exudate Amt Small Large -Exudate Type Serosanguineous Yellow/Green -Wound Margin Distinct, Distinct, Outline Outline Attached Attached -Granulation Amt Large (67-100%) Large (67-100%) -Granulation Quality [place] -Slough/Fibrin Yes No -Necrosis Amt Small (1-33%) None Present (0 %) -Necrotic Tissue Type Adherent Slough -Structure Exposed N/A N/A -Texture ([place]-wound Skin Appearance) Assessed, No Abnormality, Scarring Assessed -Moisture ([place]-wound Skin Appearance) Assessed No Abnormality, Assessed -Color ([place]-wound Skin Appearance) Assessed No Abnormality, Assessed -Temperature ([place]-wound Skin No Abnormality No Abnormality Appearance) (Pt Warm) (Pt Warm) -Tenderness on Palpation ([place]-wound No No Skin Appearance) -Ulcer Cleansing Wound Cleanser Soap and Water -Foul Odor after Cleansing No No -Anesthetic Used 4% Lidocaine 4% Lidocaine Solution Solution #5scrotum/R Groin Cluster -Combined with other wound No No -Current Size (cm) - Length 10.4 10.5 -Current Size (cm) - Width 4.4 4.5 -Current Size (cm) - Depth 0.4 1.4 -Total Square Cm 45.76 47.25 -Date of Last Picture (Recall this 02/19/22 field) -Photo Taken Yes -Tunneling Yes No -Tunneling Position (O'clock) 6 -Tunneling Distance (cm) 2.7 -Undermining/Tunneling No No -Circular Undermining No -Exudate Amt Large Large -Exudate Type Serosanguineous Yellow/Green -Wound Margin Distinct, Distinct, Outline Outline Attached Attached -Granulation Amt Large (67-100%) Large (67-100%) -Granulation Quality [place],Red -Slough/Fibrin Yes No -Necrosis Amt Small (1-33%) None Present (0 %) -Necrotic Tissue Type Adherent Slough -Structure Exposed N/A N/A -Texture ([place]ola-wound Skin Appearance) Assessed No Abnormality, Assessed -Moisture ([place]-wound Skin Appearance) Assessed No Abnormality, Assessed -Color ([place]-wound Skin Appearance) Assessed No Abnormality, Assessed -Temperature ([place]-wound Skin No Abnormality No Abnormality Appearance) (Pt Warm) (Pt Warm) -Tenderness on Palpation ([place]-wound No No Skin Appearance) -Ulcer Cleansing Wound Cleanser Soap and Water -Foul Odor after Cleansing No No -Anesthetic Used 4% Lidocaine 4% Lidocaine Solution Solution WC - Nurse 2 - General Ulcer CM Notes Start: 02/14/22 08:39 Freq: Status: Active Protocol: Activity Type Activity Date Activity User E-sign Co-sign Detail Recorded Client Recorded Date Recorded By Document 02/14/22 08:59 LIZETTE [id number] 02/14/22 09:01 Edit Result 02/14/22 08:59 LIZETTE (1) [id number] 02/14/22 09:06 JF Document 02/19/22 09:07 LIZETTE [id number] 02/19/22 09:16 LIZETTE (1) #5scrotum/R Groin Cluster - Tunneling No => Yes - Tunneling Position (O'clock) => 6 - Tunneling Distance (cm) => 2.8 02/14/22 02/19/22 08:59 09:07 Wound Center Nurse 2 7-right scrotum -Time 09:09 -Correct Patient Yes -Correct Side, Site, Position Yes -Correct Procedure Yes -Procedure Performed Yes -Type of Procedure Debridement -Clinical Debridement Subcutaneous -Tissue Removed Subcutaneous -Post Debridement (cm) - Length 1.0 -Post Debridement (cm) - Width 0.6 -Post Debridement (cm) - Depth 0.1 -Total Square (Post) (cm) 0.60 -Area of Debridement (cm) - Length 1.0 -Area of Debridement (cm) - Width 0.6 -Total Square (Area) (cm) 0.60 -Tunneling No -Undermining/Tunneling No -Circular Undermining No -Wound/Ulcer Outcome Not Healed -Ulcer Cleansing Rinsed/ Irrigated with Saline -Foul Odor after Cleansing No -Bioengineered Tissue No -Bleeding Controlled with Pressure -Treatment Response Procedure Tolerated Well -Offloading No -Debridement - Subq, 1st 20sq cm No #6 L Ischium -Time 08:59 09:08 -Correct Patient Yes Yes -Correct Side, Site, Position Yes Yes -Correct Procedure Yes Yes -Procedure Performed Yes Yes -Type of Procedure Debridement Debridement -Clinical Debridement Subcutaneous Subcutaneous -Tissue Removed Subcutaneous Subcutaneous -Post Debridement (cm) - Length 0.7 0.7 -Post Debridement (cm) - Width 1.3 1.4 -Post Debridement (cm) - Depth 0.1 0.1 -Total Square (Post) (cm) 0.91 0.98 -Area of Debridement (cm) - Length 0.7 0.7 -Area of Debridement (cm) - Width 1.3 1.4 -Total Square (Area) (cm) 0.91 0.98 -Tunneling No No -Undermining/Tunneling No No -Circular Undermining No No -Wound/Ulcer Outcome Not Healed -Ulcer Cleansing Rinsed/ Rinsed/ Irrigated with Irrigated with Saline Saline -Foul Odor after Cleansing No No -Bioengineered Tissue No No -Bleeding Controlled with Pressure Pressure -Treatment Response Procedure Procedure Tolerated Well Tolerated Well -Offloading No No -Debridement - Subq, 1st 20sq cm No No #5scrotum/R Groin Cluster -Time 08:59 09:11 -Correct Patient Yes Yes -Correct Side, Site, Position Yes Yes -Correct Procedure Yes Yes -Procedure Performed Yes Yes -Type of Procedure Debridement Debridement -Clinical Debridement Subcutaneous Subcutaneous -Tissue Removed Subcutaneous Subcutaneous -Post Debridement (cm) - Length 9.5 9.5 -Post Debridement (cm) - Width 4.7 4.2 -Post Debridement (cm) - Depth 0.3 0.2 -Total Square (Post) (cm) 44.65 39.90 -Area of Debridement (cm) - Length 9.5 9.5 -Area of Debridement (cm) - Width 4.7 4.2 -Total Square (Area) (cm) 44.65 39.90 -Tunneling Yes No -Tunneling Position (O'clock) 6 -Tunneling Distance (cm) 2.8 -Undermining/Tunneling No No -Circular Undermining No No -Wound/Ulcer Outcome Not Healed Not Healed -Ulcer Cleansing Rinsed/ Rinsed/ Irrigated with Irrigated with Saline Saline -Foul Odor after Cleansing No No -Bioengineered Tissue No No -Bleeding Controlled with Pressure Pressure -Treatment Response Procedure Procedure Tolerated Well Tolerated Well -Offloading No No -Debridement - Subq, 1st 20sq cm Yes Yes -Debridement, SubQ, ea addt'l 20sq cm 2 2 or part thereof Pain Scale: 0-10 Numeric Is Patient Pain Free? Yes Yes WC - Nurse 3 - General Ulcer D/C NN Start: 02/14/22 08:39 Freq: Status: Active Protocol: Activity Type Activity Date Activity User E-sign Co-sign Detail Recorded Client Recorded Date Recorded By Document 02/14/22 09:16 DL [id number] 02/14/22 09:17 DL Document 02/19/22 10:12 AK [id number] 02/19/22 10:16 AK 02/14/22 02/19/22 09:16 10:12 Wound Care Nurse 3 7-right scrotum -Ulcer Cleansing Rinsed/ Irrigated with Saline -Foul Odor after Cleansing No -Negative Pressure Wound Therapy N/A -Primary Dressing Applied Aquacel AG 4x4 -Primary Dressing Covered/Secured with Dry Gauze, Secured with Tape -Aquacel AG 4x4 1 #6 L Ischium -Ulcer Cleansing Wound Cleanser Rinsed/ Irrigated with Saline -Foul Odor after Cleansing No No -Negative Pressure Wound Therapy N/A -Primary Dressing Applied C Hydrogel ($) -Other Dressing hydrogel -Primary Dressing Covered/Secured with Dry Gauze Dry Gauze, Secured with Tape -Other Covering coban #5scrotum/R Groin Cluster -Ulcer Cleansing Rinsed/ Irrigated with Saline -Foul Odor after Cleansing No -Other Dressing moistened gauze own dakins and ABD -Primary Dressing Covered/Secured with Dry Gauze, Secured with Tape -Other Covering ABD/Coban Treatment Response Procedure Tolerated Well Pain Scale: 0-10 Numeric Is Patient Pain Free? Yes No WC - Visit Discharge Discharge Condition Stable Stable Ambulatory Status Ambulatory Ambulatory Transportation Private Auto Private Auto Accompanied by Medication Reconcilliation completed & Yes provided to patient/care provider Clinical Summary of Care Provided Yes Orders Sent Yes Additional Wound Wound debrided: ischial ulcer Laterality: Left Wound Grade/Stage: Stage II Type of Debridement: Excisional debridement Depth: Down to and including healthy tissue and in the subcutaneous layer Percentage of wound debrided: 100 Instrument Used: 3mm curette Tissue Removed: Devitalized tissue and slough Severity: Fat Layer Exposed Amount of bleeding with debridement: Mild Bleeding Controlled with: Compression and gauze Patient tolerated procedure: Patient tolerated procedure well Assessment/Plan Assessment/Plan (1) Ulcer of right groin with fat layer exposed: CODE(S): L98.492 - Non-pressure chronic ulcer of skin of other sites with fat layer exposed (2) Ulcer of scrotum: CODE(S): N50.89 - Other specified disorders of the male genital organs (3) Ulcer of perineum with fat layer exposed: CODE(S): L98.492 - Non-pressure chronic ulcer of skin of other sites with fat layer exposed (4) Chronic ulcer of buttock: CODE(S): L98.419 - Non-pressure chronic ulcer of buttock with unspecified severity (5) Suppurative hidradenitis: CODE(S): L73.2 - Hidradenitis suppurativa (6) Smoker: CODE(S): F17.200 - Nicotine dependence, unspecified, uncomplicated (7) Hypertension: CODE(S): I10 - Essential (primary) hypertension QUALIFIERS: Hypertension type: primary hypertension Qualified Code(s): I10 - Essential (primary) hypertension (8) Diabetes type 2, uncontrolled: CODE(S): E11.65 - Type 2 diabetes mellitus with hyperglycemia (9) Hemoglobin A1c greater than 8.0 percent: CODE(S): R73.09 - Other abnormal glucose (10) Post-operative pain: CODE(S): G89.18 - Other acute postprocedural pain PLAN: Plan Patient was evaluated at the wound healing center. Operative wound cultures from 11/23/21 positive for Streptococcus constellatus and Corynebacterium striatum. He completed Cefdinir 300mg BID. Creatinine repeat on 11/27/21, which was down to 1.62 from 1.73 on 11/25/21. Also, repeat K+ 4.0. Patient is on his Plavix. Left ischial ulcer wound culture obtained 02/14/21 which was positive for Corynebacterium striatum which is not typically treated with antibiotics. Wound care - Saline moistened gauze on the day of debridement then Dakin's 0.25% moistened covered by ABD/super absorber daily and prn to right groin. Make sure to pack into the base of the tunnels and undermining. Left ischial ulcer collagen hydrogel covered with adaptic and topped with gauze daily. Right scrotal ulcer place Aquacel-Ag covered with gauze daily. Encouraged increase protein intake and increase Vitamin C intake. Will need supplemental protein to help heal this wound. Encouraged patient to stop smoking as it may have deleterious effects on wound healing. Patient sees dermatology who is managing the medical portion of his hidradenitis. Follow up one week. Call or come in sooner if develop any questions or concerns.
[2022-02-26 08:48] VITALS: BP 179/46; PULSE 80; RESP 20; TEMP 36.2
--- NOTE | 2022-02-26 15:11 | PN.PCM_ITS ---
History of Present Illness Date of Service: 02/26/22 Chief Complaint: Excision of hidradenitis of right inguinal, scrotal and p erineal area History of Wound: 56 year old male who is known to me. He has a history significant for hidradenitis, DM type II, HTN, CAD, arterial insufficiency, and smoker. He had surgery on 11/23/21 for 1. Surgical preparation right inguinal area with excision suppurative hidradenitis abscess (112 cm2, and 192 cm2 total). 2. Surgical preparation right scrotum with incision and drainage and excision suppurative hidradenitis abscess (50 cm2, and 192 cm2 total). 3. Surgical preparation right perineal area with excision suppurative hidradenitis abscess (30 cm2, and 192 cm2 total). Operative wound cultures from 11/23/21 positive for Streptococcus constellatus and Corynebacterium striatum. He was started on Cefdinir 300mg BID. Creatinine repeat today, 11/27/21, down to 1.62 from 1.73 on 11/25/21. Wound care - Dakin's 0.25% moistened gauze covered by ABD/super absorber daily and prn to right groin. Left ischial ulcer aquacel-ag covered with gauze daily. Today he denies fevers, chills, nausea and vomiting. He states that he has a good appetite. Other history: Surgery 03/22/20 - 1. Surgical preparation left inguinal area with excision hidradenitis (315 cm2 total wound). 2. Surgical preparation perineal area with excision hidradenitis (315 cm2 total wound). 3. Surgical preparation base left scrotum with incision and drainage and excision hidradenitis (315 cm2 total wound). Operative culture from 03/22/20 - Enterococcus faecalis and Streptococcus group F, Anaerobic cocci and Prevotella bivia. He was treated with Linezolid and Flagyl and has completed them. He saw Dr. Kasey live had an angioplasty of some of his vessels in his legs. Patient admitted to the hospital for increased redness and swelling of his left groin and buttocks on 09/27/20. Patient was started on IV Vancomycin, Levaquin and Flagyl by ID. Surgery 09/29/20 - 1. Surgical preparation left perianal area with excision hidradenitis abscess (144 cm2). 2. Surgical preparation left posterior thigh with incision and drainage and excisional debridement hidradenitis abscess (96 cm2). Operative cultures from 09/29/20 positive for Streptococcus constellatus, Co rynebacterium striatum, Anaerobic cocci, and Prevotella species. Pathology of left perianal and left posterior thigh abscess showed pieces of skin with underlying tisse with acute and chronic inflammation, granulation tissue reaction and abscess formation. 10/01/20 - Laparoscopic sigmoid colostomy placed by Dr. Osorio due to the complicated perineal wound secondary to hidradenitis suppurativa status post excision. Culture from 02/14/22 positive for Corynebacterium striatum. Progress of Wound: Right groin wound has improved. Wound bed is pink. The tunneling and undermining are improving. He is experiencing increased pain with the Dakin's solution on the day of debridement, so he is using saline moistened gauze on the day he is debrided, then Dakin's moistened gauze daily after that. Left ischial ulcer is slightly improved. The ulcer on his right scrotal area that is proximal to the groin ulcer is smaller. Objective Data Objective Data Vital Signs: Vital Signs Temp Pulse Resp BP 97.1 F L 80 20 H 179/46 H 02/26/22 08:48 02/26/22 08:48 02/26/22 08:48 02/26/22 08:48 Lab / Micro Data Micro: Microbiology 02/14/22 Unknown Wound Abcess - Ischium Gram Stain - Final 02/14/22 Unknown Wound Abcess - Ischium Wound Culture - Final Corynebacterium striatum 02/14/22 Unknown Wound Abcess - Ischium Anaerobic Culture - Final No anaerobic bacteria isolated. Charges/Coding Procedures Integumentary [id number]: [id number] Ayla subq tissue 20 sq cm/< Add On Codes: 84184 Ayla subq tissue add-on Debridement Note Debridement Note Wound debrided: groin, scrotum, perineal area Laterality: Right Wound Grade/Stage: Stage IV Type of Debridement: Excisional debridement Anesthesia Used: 5% Lidocaine Gel Depth: Down to and including healthy tissue and in the subcutaneous layer Percentage of wound debrided: 100 Instrument Used: 7mm curette Tissue Removed: Devitalized tissue and slough Severity: Fat Layer Exposed Amount of bleeding with debridement: Mild Bleeding Controlled with: Pressure and Compression and gauze Patient tolerated procedure: Patient tolerated procedure well Post-Debridement Measurements and Additional Note: Post-Debridement Measurements/Treatment WC - Nurse 1 - General Ulcer Assessment Start: 02/14/22 08:39 Freq: Status: Active Protocol: PALMAT Activity Type Activity Date Activity User E-sign Co-sign Detail Recorded Client Recorded Date Recorded By Document 02/14/22 08:39 RB [id number] 02/14/22 08:44 RB Document 02/19/22 08:53 AK [id number] 02/19/22 08:57 AK Document 02/26/22 08:48 DL [id number] 02/26/22 08:55 DL 02/14/22 02/19/22 02/26/22 08:39 08:53 08:48 - Today's Visit Information Type of service Follow-up Visit Follow-up Visit Follow-up Visit (Physician/OXYGEN SYSTEM TESTER (Physician/OXYGEN SYSTEM TESTER (Physician/OXYGEN SYSTEM TESTER ) ) ) Arrival Mode Ambulatory Ambulatory Ambulatory Transfer Assistance None None Patient Identification Verified (Name & Yes Yes Yes ) Patient Requires Transmission-Based No No No Precautions Finger Stick Blood Sugar(mg/dl) (if 112 indicated): Blood Sugar Stated by Patient Vital Signs Temperature (97.8 F-99.1 F) 97 F L 97.1 F L 97.1 F L Temperature Source Temporal Temporal Temporal Pulse Rate (60-100) 71 79 80 Pulse Location Apical Monitor Monitor Respiratory Rate (12-18) 18 20 H Respiratory rate source Observation Observation Blood Pressure (90/60-120/80) 183/52 H 184/62 H 179/46 H Blood Pressure Mean (mm Hg) 95 102 90 Source Monitor Monitor Monitor Position Semi-Fowlers Blood Pressure Location Left Arm History Since Last Visit- (Skip if this is Patient's initial visit) Have you changed medications since your No No No last visit? Any new allergies or adverse reactions No No No Had a fall/change in ADL's that may No No No increase risk of falls Signs or symptoms of abuse and/or No No No neglect since last visit Have you been in the hospital since your No No No last visit? Has dressing in place as prescribed Yes Yes Yes Has compression in place as prescribed No N/A N/A Has offloadiing in place as prescribed No N/A Yes Experienced any changes in pain level or No No No management Left Footwear Regular Shoe Right Footwear Regular Shoe Pain Scale: 0-10 Numeric Is Patient Pain Free? Yes No Yes WC - Nurse 1 - General Ulcer Measurement Start: 02/14/22 08:39 Freq: Status: Active Protocol: Activity Type Activity Date Activity User E-sign Co-sign Detail Recorded Client Recorded Date Recorded By Document 02/14/22 08:39 RB [id number] 02/14/22 08:44 RB Document 02/19/22 08:53 AK [id number] 02/19/22 08:57 AK Document 02/26/22 08:48 DL [id number] 02/26/22 08:55 DL 02/14/22 02/19/22 02/26/22 08:39 08:53 08:48 Wound Center Nurse 1 7-right scrotum -Current Size (cm) - Length 7.8 -Current Size (cm) - Width 3.8 -Current Size (cm) - Depth 0.1 -Total Square Cm 29.64 -Photo Taken No -Exudate Amt Medium -Exudate Type Yellow/Green -Wound Margin Distinct, Outline Attached -Granulation Amt Large (67-100%) -Granulation Quality Red -Necrosis Amt None Present (0 %) -Structure Exposed N/A -Texture ([place]-wound Skin Appearance) Scarring -Moisture ([place]-wound Skin Appearance) No Abnormality -Color ([place]-wound Skin Appearance) No Abnormality -Temperature ([place]-wound Skin No Abnormality Appearance) (Pt Warm) -Tenderness on Palpation ([place]-wound No Skin Appearance) -Ulcer Cleansing Soap and Water -Foul Odor after Cleansing No -Anesthetic Used 5% Lidocaine Gel #6 L Ischium -Combined with other wound No No -Current Size (cm) - Length 0.5 0.4 0.1 -Current Size (cm) - Width 1 1 0.1 -Current Size (cm) - Depth 0.1 0.1 0.1 -Total Square Cm 0.5 0.4 0.01 -Date of Last Picture (Recall this 02/19/22 field) -Photo Taken Yes No -Tunneling No No -Undermining/Tunneling No No -Circular Undermining No No -Change in Wound Grade/Stage No -Exudate Amt Small Large None Present -Exudate Type Serosanguineous Yellow/Green -Wound Margin Distinct, Distinct, Distinct, Outline Outline Outline Attached Attached Attached -Granulation Amt Large (67-100%) Large (67-100%) Large (67-100%) -Granulation Quality [place] -Slough/Fibrin Yes No -Necrosis Amt Small (1-33%) None Present (0 None Present (0 %) %) -Necrotic Tissue Type Adherent Slough -Structure Exposed N/A N/A N/A -Texture ([place]-wound Skin Appearance) Assessed, No Abnormality, Scarring Scarring Assessed -Moisture ([place]-wound Skin Appearance) Assessed No Abnormality, No Abnormality Assessed -Color ([place]-wound Skin Appearance) Assessed No Abnormality, No Abnormality Assessed -Temperature ([place]-wound Skin No Abnormality No Abnormality No Abnormality Appearance) (Pt Warm) (Pt Warm) (Pt Warm) -Tenderness on Palpation ([place]-wound No No No Skin Appearance) -Ulcer Cleansing Wound Cleanser Soap and Water Soap and Water -Foul Odor after Cleansing No No No -Anesthetic Used 4% Lidocaine 4% Lidocaine 5% Lidocaine Solution Solution Gel #5scrotum/R Groin Cluster -Combined with other wound No No -Current Size (cm) - Length 10.4 10.5 0.1 -Current Size (cm) - Width 4.4 4.5 0.1 -Current Size (cm) - Depth 0.4 1.4 0.1 -Total Square Cm 45.76 47.25 0.01 -Date of Last Picture (Recall this 02/19/22 field) -Photo Taken Yes No -Tunneling Yes No -Tunneling Position (O'clock) 6 -Tunneling Distance (cm) 2.7 -Undermining/Tunneling No No -Circular Undermining No -Exudate Amt Large Large None Present -Exudate Type Serosanguineous Yellow/Green -Wound Margin Distinct, Distinct, Distinct, Outline Outline Outline Attached Attached Attached -Granulation Amt Large (67-100%) Large (67-100%) Large (67-100%) -Granulation Quality [place] -Slough/Fibrin Yes No -Necrosis Amt Small (1-33%) None Present (0 None Present (0 %) %) -Necrotic Tissue Type Adherent Slough -Structure Exposed N/A N/A N/A -Texture ([place]-wound Skin Appearance) Assessed No Abnormality, Scarring Assessed -Moisture ([place]-wound Skin Appearance) Assessed No Abnormality, No Abnormality Assessed -Color ([place]-wound Skin Appearance) Assessed No Abnormality, No Abnormality Assessed -Temperature ([place]-wound Skin No Abnormality No Abnormality No Abnormality Appearance) (Pt Warm) (Pt Warm) (Pt Warm) -Tenderness on Palpation ([place]-wound No No No Skin Appearance) -Ulcer Cleansing Wound Cleanser Soap and Water Soap and Water -Foul Odor after Cleansing No No -Anesthetic Used 4% Lidocaine 4% Lidocaine 5% Lidocaine Solution Solution Gel WC - Nurse 2 - General Ulcer CM Notes Start: 02/14/22 08:39 Freq: Status: Active Protocol: Activity Type Activity Date Activity User E-sign Co-sign Detail Recorded Client Recorded Date Recorded By Document 02/14/22 08:59 [id number] 02/14/22 09:01 Edit Result 02/14/22 08:59 JF (1) [id number] 02/14/22 09:06 JF Document 02/19/22 09:07 [id number] 02/19/22 09:16 Document 02/26/22 09:37 [id number] 02/26/22 09:43 JF (1) #5scrotum/R Groin Cluster - Tunneling No => Yes - Tunneling Position (O'clock) => 6 - Tunneling Distance (cm) => 2.8 02/14/22 02/19/22 02/26/22 08:59 09:07 09:37 Wound Center Nurse 2 7-right scrotum -Time 09:09 09:37 -Correct Patient Yes Yes -Correct Side, Site, Position Yes Yes -Correct Procedure Yes Yes -Procedure Performed Yes Yes -Type of Procedure Debridement Debridement -Clinical Debridement Subcutaneous Subcutaneous -Tissue Removed Subcutaneous Subcutaneous -Post Debridement (cm) - Length 1.0 1.0 -Post Debridement (cm) - Width 0.6 0.3 -Post Debridement (cm) - Depth 0.1 0.2 -Total Square (Post) (cm) 0.60 0.30 -Area of Debridement (cm) - Length 1.0 1.0 -Area of Debridement (cm) - Width 0.6 0.3 -Total Square (Area) (cm) 0.60 0.30 -Tunneling No No -Undermining/Tunneling No No -Circular Undermining No No -Wound/Ulcer Outcome Not Healed Not Healed -Ulcer Cleansing Rinsed/ Rinsed/ Irrigated with Irrigated with Saline Saline -Foul Odor after Cleansing No No -Bioengineered Tissue No No -Bleeding Controlled with Pressure Pressure -Treatment Response Procedure Procedure Tolerated Well Tolerated Well -Offloading No No -Debridement - Subq, 1st 20sq cm No No #6 L Ischium -Time 08:59 09:08 09:37 -Correct Patient Yes Yes Yes -Correct Side, Site, Position Yes Yes Yes -Correct Procedure Yes Yes Yes -Procedure Performed Yes Yes Yes -Type of Procedure Debridement Debridement Debridement -Clinical Debridement Subcutaneous Subcutaneous Subcutaneous -Tissue Removed Subcutaneous Subcutaneous Subcutaneous -Post Debridement (cm) - Length 0.7 0.7 0.6 -Post Debridement (cm) - Width 1.3 1.4 1.0 -Post Debridement (cm) - Depth 0.1 0.1 0.1 -Total Square (Post) (cm) 0.91 0.98 0.60 -Area of Debridement (cm) - Length 0.7 0.7 0.6 -Area of Debridement (cm) - Width 1.3 1.4 1.0 -Total Square (Area) (cm) 0.91 0.98 0.60 -Tunneling No No No -Undermining/Tunneling No No No -Circular Undermining No No No -Wound/Ulcer Outcome Not Healed Not Healed -Ulcer Cleansing Rinsed/ Rinsed/ Rinsed/ Irrigated with Irrigated with Irrigated with Saline Saline Saline -Foul Odor after Cleansing No No No -Bioengineered Tissue No No No -Bleeding Controlled with Pressure Pressure Pressure -Treatment Response Procedure Procedure Procedure Tolerated Well Tolerated Well Tolerated Well -Offloading No No No -Debridement - Subq, 1st 20sq cm No No No #5scrotum/R Groin Cluster -Time 08:59 09:11 09:40 -Correct Patient Yes Yes Yes -Correct Side, Site, Position Yes Yes Yes -Correct Procedure Yes Yes Yes -Procedure Performed Yes Yes Yes -Type of Procedure Debridement Debridement Debridement -Clinical Debridement Subcutaneous Subcutaneous Subcutaneous -Tissue Removed Subcutaneous Subcutaneous Subcutaneous -Post Debridement (cm) - Length 9.5 9.5 9.0 -Post Debridement (cm) - Width 4.7 4.2 3.8 -Post Debridement (cm) - Depth 0.3 0.2 0.1 -Total Square (Post) (cm) 44.65 39.90 34.20 -Area of Debridement (cm) - Length 9.5 9.5 9.0 -Area of Debridement (cm) - Width 4.7 4.2 3.8 -Total Square (Area) (cm) 44.65 39.90 34.20 -Tunneling Yes No Yes -Tunneling Position (O'clock) 6 6 -Tunneling Distance (cm) 2.8 2.9 -Undermining/Tunneling No No No -Circular Undermining No No No -Wound/Ulcer Outcome Not Healed Not Healed Not Healed -Ulcer Cleansing Rinsed/ Rinsed/ Rinsed/ Irrigated with Irrigated with Irrigated with Saline Saline Saline -Foul Odor after Cleansing No No No -Bioengineered Tissue No No No -Bleeding Controlled with Pressure Pressure Pressure -Treatment Response Procedure Procedure Procedure Tolerated Well Tolerated Well Tolerated Well -Offloading No No No -Debridement - Subq, 1st 20sq cm Yes Yes Yes -Debridement, SubQ, ea addt'l 20sq cm 2 2 1 or part thereof Pain Scale: 0-10 Numeric Is Patient Pain Free? Yes Yes Yes WC - Nurse 3 - General Ulcer D/C NN Start: 02/14/22 08:39 Freq: Status: Active Protocol: Activity Type Activity Date Activity User E-sign Co-sign Detail Recorded Client Recorded Date Recorded By Document 02/14/22 09:16 DL [id number] 02/14/22 09:17 DL Document 02/19/22 10:12 AK [id number] 02/19/22 10:16 AK Document 02/26/22 09:54 AK [id number] 02/26/22 09:57 AK 02/14/22 02/19/22 02/26/22 09:16 10:12 09:54 Wound Care Nurse 3 7-right scrotum -Ulcer Cleansing Rinsed/ Irrigated with Saline -Foul Odor after Cleansing No -Negative Pressure Wound Therapy N/A -Primary Dressing Applied Aquacel AG 4x4 Aquacel AG 4x4 -Other Dressing ABD -Primary Dressing Covered/Secured with Dry Gauze, Secured with Tape -Aquacel AG 4x4 1 1 #6 L Ischium -Ulcer Cleansing Wound Cleanser Rinsed/ Rinsed/ Irrigated with Irrigated with Saline Saline -Foul Odor after Cleansing No No No -Negative Pressure Wound Therapy N/A N/A -Primary Dressing Applied C Hydrogel ($) -Other Dressing hydrogel hydrogel -Primary Dressing Covered/Secured with Dry Gauze Dry Gauze, Dry Gauze, Secured with Secured with Tape Tape -Other Covering coban #5scrotum/R Groin Cluster -Ulcer Cleansing Rinsed/ Rinsed/ Irrigated with Irrigated with Saline Saline -Foul Odor after Cleansing No No -Negative Pressure Wound Therapy N/A -Other Dressing moistened gauze own dakins and saline today ABD then dakins -Primary Dressing Covered/Secured with Dry Gauze, Secured with Tape -Other Covering ABD/Coban ABD Treatment Response Procedure Tolerated Well Pain Scale: 0-10 Numeric Is Patient Pain Free? Yes No Yes WC - Visit Discharge Discharge Condition Stable Stable Stable Ambulatory Status Ambulatory Ambulatory Ambulatory Transportation Private Auto Private Auto Private Auto Accompanied by Medication Reconcilliation completed & Yes Yes provided to patient/care provider Clinical Summary of Care Provided Yes Yes Orders Sent Yes Additional Wound Wound debrided: ischial ulcer Laterality: Left Wound Grade/Stage: Stage II Type of Debridement: Excisional debridement Depth: Down to and including healthy tissue and in the subcutaneous layer Percentage of wound debrided: 100 Instrument Used: 3mm curette Tissue Removed: Devitalized tissue and slough Severity: Fat Layer Exposed Amount of bleeding with debridement: Mild Bleeding Controlled with: Compression and gauze Patient tolerated procedure: Patient tolerated procedure well Assessment/Plan Assessment/Plan (1) Ulcer of right groin with fat layer exposed: CODE(S): L98.492 - Non-pressure chronic ulcer of skin of other sites with fat layer exposed (2) Ulcer of scrotum: CODE(S): N50.89 - Other specified disorders of the male genital organs (3) Ulcer of perineum with fat layer exposed: CODE(S): L98.492 - Non-pressure chronic ulcer of skin of other sites with fat layer exposed (4) Chronic ulcer of buttock: CODE(S): L98.419 - Non-pressure chronic ulcer of buttock with unspecified severity (5) Suppurative hidradenitis: CODE(S): L73.2 - Hidradenitis suppurativa (6) Smoker: CODE(S): F17.200 - Nicotine dependence, unspecified, uncomplicated (7) Hypertension: CODE(S): I10 - Essential (primary) hypertension QUALIFIERS: Hypertension type: primary hypertension Qualified Code(s): I10 - Essential (primary) hypertension (8) Diabetes type 2, uncontrolled: CODE(S): E11.65 - Type 2 diabetes mellitus with hyperglycemia (9) Hemoglobin A1c greater than 8.0 percent: CODE(S): R73.09 - Other abnormal glucose (10) Post-operative pain: CODE(S): G89.18 - Other acute postprocedural pain PLAN: Plan Patient was evaluated at the wound healing center. Operative wound cultures from 11/23/21 positive for Streptococcus constellatus and Corynebacterium striatum. He completed Cefdinir 300mg BID. Creatinine repeat on 11/27/21, which was down to 1.62 from 1.73 on 11/25/21. Also, repeat K+ 4.0. Patient is on his Plavix. Left ischial ulcer wound culture obtained 02/14/21 which was positive for Corynebacterium striatum which is not typically treated with antibiotics. Wound care - Saline moistened gauze on the day of debridement then Dakin's 0.25% moistened covered by ABD/super absorber daily and prn to right groin. Make sure to pack into the base of the tunnels and undermining. Left ischial ulcer collagen hydrogel covered with adaptic and topped with gauze daily. Right scrotal ulcer place Aquacel-Ag covered with gauze daily. Encouraged increase protein intake and increase Vitamin C intake. Will need supplemental protein to help heal this wound. Encouraged patient to stop smoking as it may have deleterious effects on wound healing. Patient sees dermatology who is managing the medical portion of his hidradenitis. Follow up one week. Call or come in sooner if develop any questions or concerns.
[2022-03-05 09:17] VITALS: BP 192/85; PULSE 77; TEMP 36.5
--- NOTE | 2022-03-05 13:53 | PCM.WC.PN ---
History of Present Illness Date of Service: 03/05/22 Chief Complaint: Excision of hidradenitis of right inguinal, scrotal and perineal area History of Wound: 56 year old male who is known to me. He has a history significant for hidradenitis, DM type II, HTN, CAD, arterial insufficiency, and smoker. He had surgery on 11/23/21 for 1. Surgical preparation right inguinal area with excision suppurative hidradenitis abscess (112 cm2, and 192 cm2 total). 2. Surgical preparation right scrotum with incision and drainage and excision suppurative hidradenitis abscess (50 cm2, and 192 cm2 total). 3. Surgical preparation right perineal area with excision suppurative hidradenitis abscess (30 cm2, and 192 cm2 total). Operative wound cultures from 11/23/21 positive for Streptococcus constellatus and Corynebacterium striatum. He was started on Cefdinir 300mg BID. Creatinine repeat today, 11/27/21, down to 1.62 from 1.73 on 11/25/21. Wound care - Dakin's 0.25% moistened gauze covered by ABD/super absorber daily and prn to right groin. Left ischial ulcer aquacel-ag covered with gauze daily. Today he denies fevers, chills, nausea and vomiting. He states that he has a good appetite. Other history: Surgery 03/22/20 - 1. Surgical preparation left inguinal area with excision hidradenitis (315 cm2 total wound). 2. Surgical preparation perineal area with excision hidradenitis (315 cm2 total wound). 3. Surgical preparation base left scrotum with incision and drainage and excision hidradenitis (315 cm2 total wound). Operative culture from 03/22/20 - Enterococcus faecalis and Streptococcus group F, Anaerobic cocci and Prevotella bivia. He was treated with Linezolid and Flagyl and has completed them. He saw Dr. Kasey live had an angioplasty of some of his vessels in his legs. Patient admitted to the hospital for increased redness and swelling of his left groin and buttocks on 09/27/20. Patient was started on IV Vancomycin, Levaquin and Flagyl by ID. Surgery 09/29/20 - 1. Surgical preparation left perianal area with excision hidradenitis abscess (144 cm2). 2. Surgical preparation left posterior thigh with incision and drainage and excisional debridement hidradenitis abscess (96 cm2). Operative cultures from 09/29/20 positive for Streptococcus constellatus, Corynebacterium striatum, Anaerobic cocci, and Prevotella species. Pathology of left perianal and left posterior thigh abscess showed pieces of skin with underlying tisse with acute and chronic inflammation, granulation tissue reaction and abscess formation. 10/01/20 - Laparoscopic sigmoid colostomy placed by Dr. Osorio due to the complicated perineal wound secondary to hidradenitis suppurativa status post excision. Culture from 02/14/22 positive for Corynebacterium striatum. Progress of Wound: Right groin wound has improved. Wound bed is pink. The tunneling and undermining are improving. He is experiencing increased pain with the Dakin's solution on the day of debridement, so he is using saline moistened gauze on the day he is debrided, then Dakin's moistened gauze daily after that. Left ischial ulcer is slightly improved, it is now a cluster. The ulcer on his right scrotal area that is proximal to the groin ulcer is healed today. He has swelling and white drainage with palpation to his right medial buttock where his hidradenitis is flaring. Objective Data Objective Data Vital Signs: Vital Signs Temp Pulse Resp BP 97.7 F L 77 20 H 192/85 H 03/05/22 09:17 03/05/22 09:17 02/26/22 08:48 03/05/22 09:17 Lab / Micro Data Micro: Microbiology 02/14/22 Unknown Wound Abcess - Ischium Gram Stain - Final 02/14/22 Unknown Wound Abcess - Ischium Wound Culture - Final Corynebacterium striatum 02/14/22 Unknown Wound Abcess - Ischium Anaerobic Culture - Final No anaerobic bacteria isolated. Charges/Coding Procedures Integumentary 111xxx-113xx: 13960 Ayla subq tissue 20 sq cm/< Add On Codes: 85453 Ayla subq tissue add-on (x1) Debridement Note Debridement Note Wound debrided: groin, scrotum, perineal area Laterality: Right Wound Grade/Stage: Stage IV Type of Debridement: Excisional debridement Anesthesia Used: 5% Lidocaine Gel Depth: Down to and including healthy tissue and in the subcutaneous layer Percentage of wound debrided: 100 Instrument Used: 7mm curette Tissue Removed: Devitalized tissue and biofilm Severity: Fat Layer Exposed Amount of bleeding with debridement: Mild Bleeding Controlled with: Pressure and Compression and gauze Patient tolerated procedure: Patient tolerated procedure well Post-Debridement Measurements and Additional Note: Post-Debridement Measurements/Treatment WC - Nurse 1 - General Ulcer Assessment Start: 02/14/22 08:39 Freq: Status: Active Protocol: ROC Activity Type Activity Date Activity User E-sign Co-sign Detail Recorded Client Recorded Date Recorded By Document 02/14/22 08:39 RB [id number] 02/14/22 08:44 RB Document 02/19/22 08:53 AK [id number] 02/19/22 08:57 AK Document 02/26/22 08:48 DL [id number] 02/26/22 08:55 DL Document 03/05/22 09:06 DL [id number] 03/05/22 09:28 DL Document 03/05/22 09:17 AK [id number] 03/05/22 09:21 AK 02/14/22 02/19/22 02/26/22 08:39 08:53 08:48 - Today's Visit Information Type of service Follow-up Visit Follow-up Visit Follow-up Visit (Physician/SERVICE DESK TEAM LEAD (Physician/SERVICE DESK TEAM LEAD (Physician/SERVICE DESK TEAM LEAD ) ) ) Arrival Mode Ambulatory Ambulatory Ambulatory Transfer Assistance None None Patient Identification Verified (Name & Yes Yes Yes ) Patient Requires Transmission-Based No No No Precautions Safety Precautions Finger Stick Blood Sugar(mg/dl) (if 112 indicated): Blood Sugar Stated by Patient Vital Signs Temperature (97.8 F-99.1 F) 97 F L 97.1 F L 97.1 F L Temperature Source Temporal Temporal Temporal Pulse Rate (60-100) 71 79 80 Pulse Location Apical Monitor Monitor Respiratory Rate (12-18) 18 20 H Respiratory rate source Observation Observation Blood Pressure (90/60-120/80) 183/52 H 184/62 H 179/46 H Blood Pressure Mean (mm Hg) 95 102 90 Source Monitor Monitor Monitor Position Semi-Fowlers Blood Pressure Location Left Arm History Since Last Visit- (Skip if this is Patient's initial visit) Have you changed medications since your No No No last visit? Any new allergies or adverse reactions No No No Had a fall/change in ADL's that may No No No increase risk of falls Signs or symptoms of abuse and/or No No No neglect since last visit Have you been in the hospital since your No No No last visit? Has dressing in place as prescribed Yes Yes Yes Has compression in place as prescribed No N/A N/A Has offloadiing in place as prescribed No N/A Yes Experienced any changes in pain level or No No No management Left Footwear Regular Shoe Right Footwear Regular Shoe Pain Scale: 0-10 Numeric Is Patient Pain Free? Yes No Yes 03/05/22 03/05/22 09:06 09:17 WC - Today's Visit Information Type of service Follow-up Visit Follow-up Visit (Physician/SERVICE DESK TEAM LEAD (Physician/SERVICE DESK TEAM LEAD ) ) Arrival Mode Ambulatory Transfer Assistance Patient Identification Verified (Name & Yes ) Patient Requires Transmission-Based No Precautions Safety Precautions NA Finger Stick Blood Sugar(mg/dl) (if indicated): Blood Sugar Vital Signs Temperature (97.8 F-99.1 F) 97.7 F L Temperature Source Temporal Pulse Rate (60-100) 77 Pulse Location Monitor Respiratory Rate (12-18) Respiratory rate source Blood Pressure (90/60-120/80) 192/85 H Blood Pressure Mean (mm Hg) 120 Source Position Blood Pressure Location History Since Last Visit- (Skip if this is Patient's initial visit) Have you changed medications since your No last visit? Any new allergies or adverse reactions No Had a fall/change in ADL's that may No increase risk of falls Signs or symptoms of abuse and/or No neglect since last visit Have you been in the hospital since your No last visit? Has dressing in place as prescribed Yes Has compression in place as prescribed N/A Has offloadiing in place as prescribed N/A Experienced any changes in pain level or No management Left Footwear Regular Shoe Right Footwear Regular Shoe Pain Scale: 0-10 Numeric Is Patient Pain Free? Yes Yes - Nurse 1 - General Ulcer Measurement Start: 02/14/22 08:39 Freq: Status: Active Protocol: Activity Type Activity Date Activity User E-sign Co-sign Detail Recorded Client Recorded Date Recorded By Document 02/14/22 08:39 RB [id number] 02/14/22 08:44 RB Document 02/19/22 08:53 AK [id number] 02/19/22 08:57 AK Document 02/26/22 08:48 DL [id number] 02/26/22 08:55 DL Document 03/05/22 09:17 AK [id number] 03/05/22 09:21 AK 02/14/22 02/19/22 02/26/22 08:39 08:53 08:48 Wound Center Nurse 1 7-right scrotum -Combined with other wound -Current Size (cm) - Length 7.8 -Current Size (cm) - Width 3.8 -Current Size (cm) - Depth 0.1 -Total Square Cm 29.64 -Date of Last Picture (Recall this field) -Photo Taken No -Tunneling -Undermining/Tunneling -Circular Undermining -Change in Wound Grade/Stage -Exudate Amt Medium -Exudate Type Yellow/Green -Wound Margin Distinct, Outline Attached -Granulation Amt Large (67-100%) -Granulation Quality Red -Slough/Fibrin -Necrosis Amt None Present (0 %) -Structure Exposed N/A -Texture (Abimbola-wound Skin Appearance) Scarring -Moisture (Abimbola-wound Skin Appearance) No Abnormality -Color (Abimbola-wound Skin Appearance) No Abnormality -Temperature (Abimbola-wound Skin No Abnormality Appearance) (Pt Warm) -Tenderness on Palpation (Abimbola-wound No Skin Appearance) -Ulcer Cleansing Soap and Water -Foul Odor after Cleansing No -Anesthetic Used 5% Lidocaine Gel #6 L Ischium cluster -Combined with other wound No No -Current Size (cm) - Length 0.5 0.4 0.1 -Current Size (cm) - Width 1 1 0.1 -Current Size (cm) - Depth 0.1 0.1 0.1 -Total Square Cm 0.5 0.4 0.01 -Date of Last Picture (Recall this 02/19/22 field) -Photo Taken Yes No -Tunneling No No -Undermining/Tunneling No No -Circular Undermining No No -Change in Wound Grade/Stage No -Exudate Amt Small Large None Present -Exudate Type Serosanguineous Yellow/Green -Wound Margin Distinct, Distinct, Distinct, Outline Outline Outline Attached Attached Attached -Granulation Amt Large (67-100%) Large (67-100%) Large (67-100%) -Granulation Quality Cochran Cochran Cochran -Slough/Fibrin Yes No -Necrosis Amt Small (1-33%) None Present (0 None Present (0 %) %) -Necrotic Tissue Type Adherent Slough -Structure Exposed N/A N/A N/A -Texture (Abimbola-wound Skin Appearance) Assessed, No Abnormality, Scarring Scarring Assessed -Moisture (Abimbola-wound Skin Appearance) Assessed No Abnormality, No Abnormality Assessed -Color (Abimbola-wound Skin Appearance) Assessed No Abnormality, No Abnormality Assessed -Temperature (Abimbola-wound Skin No Abnormality No Abnormality No Abnormality Appearance) (Pt Warm) (Pt Warm) (Pt Warm) -Tenderness on Palpation (Abimbola-wound No No No Skin Appearance) -Ulcer Cleansing Wound Cleanser Soap and Water Soap and Water -Foul Odor after Cleansing No No No -Anesthetic Used 4% Lidocaine 4% Lidocaine 5% Lidocaine Solution Solution Gel #5scrotum/R Groin Cluster -Combined with other wound No No -Current Size (cm) - Length 10.4 10.5 0.1 -Current Size (cm) - Width 4.4 4.5 0.1 -Current Size (cm) - Depth 0.4 1.4 0.1 -Total Square Cm 45.76 47.25 0.01 -Date of Last Picture (Recall this 02/19/22 field) -Photo Taken Yes No -Tunneling Yes No -Tunneling Position (O'clock) 6 -Tunneling Distance (cm) 2.7 -Undermining/Tunneling No No -Circular Undermining No -Change in Wound Grade/Stage -Exudate Amt Large Large None Present -Exudate Type Serosanguineous Yellow/Green -Wound Margin Distinct, Distinct, Distinct, Outline Outline Outline Attached Attached Attached -Granulation Amt Large (67-100%) Large (67-100%) Large (67-100%) -Granulation Quality Cochran Cochran,Red Cochran -Slough/Fibrin Yes No -Necrosis Amt Small (1-33%) None Present (0 None Present (0 %) %) -Necrotic Tissue Type Adherent Slough -Structure Exposed N/A N/A N/A -Texture (Abimbola-wound Skin Appearance) Assessed No Abnormality, Scarring Assessed -Moisture (Abimbola-wound Skin Appearance) Assessed No Abnormality, No Abnormality Assessed -Color (Abimbola-wound Skin Appearance) Assessed No Abnormality, No Abnormality Assessed -Temperature (Abimbola-wound Skin No Abnormality No Abnormality No Abnormality Appearance) (Pt Warm) (Pt Warm) (Pt Warm) -Tenderness on Palpation (Abimbola-wound No No No Skin Appearance) -Ulcer Cleansing Wound Cleanser Soap and Water Soap and Water -Foul Odor after Cleansing No No -Anesthetic Used 4% Lidocaine 4% Lidocaine 5% Lidocaine Solution Solution Gel 03/05/22 09:17 Wound Center Nurse 1 7-right scrotum -Combined with other wound No -Current Size (cm) - Length 0.1 -Current Size (cm) - Width 0.1 -Current Size (cm) - Depth 0.1 -Total Square Cm 0.01 -Date of Last Picture (Recall this 03/05/22 field) -Photo Taken Yes -Tunneling No -Undermining/Tunneling No -Circular Undermining No -Change in Wound Grade/Stage No -Exudate Amt None Present -Exudate Type -Wound Margin -Granulation Amt -Granulation Quality N/A -Slough/Fibrin No -Necrosis Amt None Present (0 %) -Structure Exposed N/A -Texture (Abimbola-wound Skin Appearance) No Abnormality, Assessed -Moisture (Abimbola-wound Skin Appearance) No Abnormality, Assessed -Color (Abimbola-wound Skin Appearance) No Abnormality, Assessed -Temperature (Abimbola-wound Skin No Abnormality Appearance) (Pt Warm) -Tenderness on Palpation (Abimbola-wound No Skin Appearance) -Ulcer Cleansing Rinsed/ Irrigated with Saline -Foul Odor after Cleansing No -Anesthetic Used 4% Lidocaine Solution #6 L Ischium cluster -Combined with other wound No -Current Size (cm) - Length 0.1 -Current Size (cm) - Width 0.1 -Current Size (cm) - Depth 0.1 -Total Square Cm 0.01 -Date of Last Picture (Recall this field) -Photo Taken Yes -Tunneling No -Undermining/Tunneling No -Circular Undermining No -Change in Wound Grade/Stage No -Exudate Amt -Exudate Type -Wound Margin -Granulation Amt None Present (0 %) -Granulation Quality N/A -Slough/Fibrin No -Necrosis Amt None Present (0 %) -Necrotic Tissue Type -Structure Exposed N/A -Texture (Abimbola-wound Skin Appearance) Assessed, Scarring -Moisture (Abimbola-wound Skin Appearance) No Abnormality, Assessed -Color (Abimbola-wound Skin Appearance) No Abnormality, Assessed -Temperature (Abimbola-wound Skin No Abnormality Appearance) (Pt Warm) -Tenderness on Palpation (Abimbola-wound No Skin Appearance) -Ulcer Cleansing Rinsed/ Irrigated with Saline -Foul Odor after Cleansing No -Anesthetic Used #5scrotum/R Groin Cluster -Combined with other wound No -Current Size (cm) - Length 9.5 -Current Size (cm) - Width 3.5 -Current Size (cm) - Depth 0.2 -Total Square Cm 33.25 -Date of Last Picture (Recall this field) -Photo Taken Yes -Tunneling No -Tunneling Position (O'clock) -Tunneling Distance (cm) -Undermining/Tunneling No -Circular Undermining No -Change in Wound Grade/Stage No -Exudate Amt Large -Exudate Type Yellow/Green -Wound Margin Distinct, Outline Attached -Granulation Amt Large (67-100%) -Granulation Quality Red -Slough/Fibrin Yes -Necrosis Amt Small (1-33%) -Necrotic Tissue Type Adherent Slough -Structure Exposed N/A -Texture (Abimbola-wound Skin Appearance) No Abnormality, Assessed -Moisture (Abimbola-wound Skin Appearance) No Abnormality, Assessed -Color (Abimbola-wound Skin Appearance) No Abnormality, Assessed -Temperature (Abimbola-wound Skin No Abnormality Appearance) (Pt Warm) -Tenderness on Palpation (Abimbola-wound No Skin Appearance) -Ulcer Cleansing Rinsed/ Irrigated with Saline -Foul Odor after Cleansing No -Anesthetic Used 4% Lidocaine Solution WC - Nurse 2 - General Ulcer CM Notes Start: 02/14/22 08:39 Freq: Status: Active Protocol: Activity Type Activity Date Activity User E-sign Co-sign Detail Recorded Client Recorded Date Recorded By Document 02/14/22 08:59 LIZETTE [id number] 02/14/22 09:01 Edit Result 02/14/22 08:59 LIZETTE (1) [id number] 02/14/22 09:06 JF Document 02/19/22 09:07 LIZETTE [id number] 02/19/22 09:16 JF Document 02/26/22 09:37 LIZETTE [id number] 02/26/22 09:43 JF Document 03/05/22 09:30 [id number] 03/05/22 09:36 JF (1) #5scrotum/R Groin Cluster - Tunneling No => Yes - Tunneling Position (O'clock) => 6 - Tunneling Distance (cm) => 2.8 02/14/22 02/19/22 02/26/22 08:59 09:07 09:37 Wound Center Nurse 2 7-right scrotum -Time 09:09 09:37 -Correct Patient Yes Yes -Correct Side, Site, Position Yes Yes -Correct Procedure Yes Yes -Procedure Performed Yes Yes -Type of Procedure Debridement Debridement -Clinical Debridement Subcutaneous Subcutaneous -Tissue Removed Subcutaneous Subcutaneous -Post Debridement (cm) - Length 1.0 1.0 -Post Debridement (cm) - Width 0.6 0.3 -Post Debridement (cm) - Depth 0.1 0.2 -Total Square (Post) (cm) 0.60 0.30 -Area of Debridement (cm) - Length 1.0 1.0 -Area of Debridement (cm) - Width 0.6 0.3 -Total Square (Area) (cm) 0.60 0.30 -Tunneling No No -Undermining/Tunneling No No -Circular Undermining No No -Wound/Ulcer Outcome Not Healed Not Healed -Ulcer Cleansing Rinsed/ Rinsed/ Irrigated with Irrigated with Saline Saline -Foul Odor after Cleansing No No -Bioengineered Tissue No No -Bleeding Controlled with Pressure Pressure -Treatment Response Procedure Procedure Tolerated Well Tolerated Well -Offloading No No -Debridement - Subq, 1st 20sq cm No No #6 L Ischium cluster -Time 08:59 09:08 09:37 -Correct Patient Yes Yes Yes -Correct Side, Site, Position Yes Yes Yes -Correct Procedure Yes Yes Yes -Procedure Performed Yes Yes Yes -Type of Procedure -Type of Procedure Debridement Debridement Debridement -Clinical Debridement Subcutaneous Subcutaneous Subcutaneous -Tissue Removed Subcutaneous Subcutaneous Subcutaneous -Post Debridement (cm) - Length 0.7 0.7 0.6 -Post Debridement (cm) - Width 1.3 1.4 1.0 -Post Debridement (cm) - Depth 0.1 0.1 0.1 -Total Square (Post) (cm) 0.91 0.98 0.60 -Area of Debridement (cm) - Length 0.7 0.7 0.6 -Area of Debridement (cm) - Width 1.3 1.4 1.0 -Total Square (Area) (cm) 0.91 0.98 0.60 -Tunneling No No No -Undermining/Tunneling No No No -Circular Undermining No No No -Wound/Ulcer Outcome Not Healed Not Healed -Ulcer Cleansing Rinsed/ Rinsed/ Rinsed/ Irrigated with Irrigated with Irrigated with Saline Saline Saline -Foul Odor after Cleansing No No No -Bioengineered Tissue No No No -Bleeding Controlled with Pressure Pressure Pressure -Treatment Response Procedure Procedure Procedure Tolerated Well Tolerated Well Tolerated Well -Offloading No No No -Debridement - Subq, 1st 20sq cm No No No #5scrotum/R Groin Cluster -Time 08:59 09:11 09:40 -Correct Patient Yes Yes Yes -Correct Side, Site, Position Yes Yes Yes -Correct Procedure Yes Yes Yes -Procedure Performed Yes Yes Yes -Type of Procedure -Type of Procedure Debridement Debridement Debridement -Clinical Debridement Subcutaneous Subcutaneous Subcutaneous -Tissue Removed Subcutaneous Subcutaneous Subcutaneous -Post Debridement (cm) - Length 9.5 9.5 9.0 -Post Debridement (cm) - Width 4.7 4.2 3.8 -Post Debridement (cm) - Depth 0.3 0.2 0.1 -Total Square (Post) (cm) 44.65 39.90 34.20 -Area of Debridement (cm) - Length 9.5 9.5 9.0 -Area of Debridement (cm) - Width 4.7 4.2 3.8 -Total Square (Area) (cm) 44.65 39.90 34.20 -Tunneling Yes No Yes -Tunneling Position (O'clock) 6 6 -Tunneling Distance (cm) 2.8 2.9 -Undermining/Tunneling No No No -Circular Undermining No No No -Wound/Ulcer Outcome Not Healed Not Healed Not Healed -Ulcer Cleansing Rinsed/ Rinsed/ Rinsed/ Irrigated with Irrigated with Irrigated with Saline Saline Saline -Foul Odor after Cleansing No No No -Bioengineered Tissue No No No -Bleeding Controlled with Pressure Pressure Pressure -Treatment Response Procedure Procedure Procedure Tolerated Well Tolerated Well Tolerated Well -Offloading No No No -Debridement - Subq, 1st 20sq cm Yes Yes Yes -Debridement, SubQ, ea addt'l 20sq cm 2 2 1 or part thereof Pain Scale: 0-10 Numeric Is Patient Pain Free? Yes Yes Yes 03/05/22 09:30 Wound Center Nurse 2 7-right scrotum -Time -Correct Patient No -Correct Side, Site, Position No -Correct Procedure No -Procedure Performed No -Type of Procedure -Clinical Debridement -Tissue Removed -Post Debridement (cm) - Length 0 -Post Debridement (cm) - Width 0 -Post Debridement (cm) - Depth 0 -Total Square (Post) (cm) 0 -Area of Debridement (cm) - Length 0 -Area of Debridement (cm) - Width 0 -Total Square (Area) (cm) 0 -Tunneling -Undermining/Tunneling -Circular Undermining -Wound/Ulcer Outcome Healed- Epithelialized -Ulcer Cleansing -Foul Odor after Cleansing -Bioengineered Tissue -Bleeding Controlled with -Treatment Response -Offloading -Debridement - Subq, 1st 20sq cm #6 L Ischium cluster -Time 09:31 -Correct Patient Yes -Correct Side, Site, Position Yes -Correct Procedure Yes -Procedure Performed Yes -Type of Procedure Debridement -Type of Procedure -Clinical Debridement Subcutaneous -Tissue Removed Subcutaneous -Post Debridement (cm) - Length 0.6 -Post Debridement (cm) - Width 2.0 -Post Debridement (cm) - Depth 0.1 -Total Square (Post) (cm) 1.20 -Area of Debridement (cm) - Length 0.6 -Area of Debridement (cm) - Width 2.0 -Total Square (Area) (cm) 1.20 -Tunneling No -Undermining/Tunneling No -Circular Undermining No -Wound/Ulcer Outcome Not Healed -Ulcer Cleansing Rinsed/ Irrigated with Saline -Foul Odor after Cleansing No -Bioengineered Tissue No -Bleeding Controlled with Pressure -Treatment Response Procedure Tolerated Well -Offloading No -Debridement - Subq, 1st 20sq cm No #5scrotum/R Groin Cluster -Time 09:32 -Correct Patient Yes -Correct Side, Site, Position Yes -Correct Procedure Yes -Procedure Performed Yes -Type of Procedure Debridement -Type of Procedure -Clinical Debridement Subcutaneous -Tissue Removed Subcutaneous -Post Debridement (cm) - Length 7.2 -Post Debridement (cm) - Width 3.5 -Post Debridement (cm) - Depth 0.1 -Total Square (Post) (cm) 25.20 -Area of Debridement (cm) - Length 7.2 -Area of Debridement (cm) - Width 3.5 -Total Square (Area) (cm) 25.20 -Tunneling Yes -Tunneling Position (O'clock) 6 -Tunneling Distance (cm) 2.0 -Undermining/Tunneling No -Circular Undermining No -Wound/Ulcer Outcome Not Healed -Ulcer Cleansing Rinsed/ Irrigated with Saline -Foul Odor after Cleansing No -Bioengineered Tissue No -Bleeding Controlled with Pressure -Treatment Response Procedure Tolerated Well -Offloading No -Debridement - Subq, 1st 20sq cm Yes -Debridement, SubQ, ea addt'l 20sq cm 1 or part thereof Pain Scale: 0-10 Numeric Is Patient Pain Free? Yes WC - Nurse 3 - General Ulcer D/C NN Start: 02/14/22 08:39 Freq: Status: Active Protocol: Activity Type Activity Date Activity User E-sign Co-sign Detail Recorded Client Recorded Date Recorded By Document 02/14/22 09:16 DL [id number] 02/14/22 09:17 DL Document 02/19/22 10:12 AK [id number] 02/19/22 10:16 AK Document 02/26/22 09:54 AK [id number] 02/26/22 09:57 AK Document 03/05/22 09:49 AK [id number] 03/05/22 09:51 AK 02/14/22 02/19/22 02/26/22 09:16 10:12 09:54 Wound Care Center Nurse 3 7-right scrotum -Ulcer Cleansing Rinsed/ Irrigated with Saline -Foul Odor after Cleansing No -Negative Pressure Wound Therapy N/A -Primary Dressing Applied Aquacel AG 4x4 Aquacel AG 4x4 -Other Dressing ABD -Primary Dressing Covered/Secured with Dry Gauze, Secured with Tape -Aquacel AG 4x4 1 1 #6 L Ischium cluster -Ulcer Cleansing Wound Cleanser Rinsed/ Rinsed/ Irrigated with Irrigated with Saline Saline -Foul Odor after Cleansing No No No -Negative Pressure Wound Therapy N/A N/A -Primary Dressing Applied C Hydrogel ($) -Other Dressing hydrogel hydrogel -Primary Dressing Covered/Secured with Dry Gauze Dry Gauze, Dry Gauze, Secured with Secured with Tape Tape -Other Covering coban #5scrotum/R Groin Cluster -Ulcer Cleansing Rinsed/ Rinsed/ Irrigated with Irrigated with Saline Saline -Foul Odor after Cleansing No No -Negative Pressure Wound Therapy N/A -Other Dressing moistened gauze own dakins and saline today ABD then dakins -Primary Dressing Covered/Secured with Dry Gauze, Secured with Tape -Other Covering ABD/Coban ABD Treatment Response Procedure Tolerated Well Pain Scale: 0-10 Numeric Is Patient Pain Free? Yes No Yes WC - Visit Discharge Discharge Condition Stable Stable Stable Ambulatory Status Ambulatory Ambulatory Ambulatory Transportation Private Auto Private Auto Private Auto Accompanied by Medication Reconcilliation completed & Yes Yes provided to patient/care provider Clinical Summary of Care Provided Yes Yes Orders Sent Yes 03/05/22 09:49 Wound Care Center Nurse 3 7-right scrotum -Ulcer Cleansing -Foul Odor after Cleansing -Negative Pressure Wound Therapy -Primary Dressing Applied -Other Dressing -Primary Dressing Covered/Secured with -Aquacel AG 4x4 #6 L Ischium cluster -Ulcer Cleansing Rinsed/ Irrigated with Saline -Foul Odor after Cleansing No -Negative Pressure Wound Therapy N/A -Primary Dressing Applied C Hydrogel ($), NonAdherent Contact Layer -Other Dressing ABD -Primary Dressing Covered/Secured with Dry Gauze & Roll Gauze, Secured with Tape -Other Covering #5scrotum/R Groin Cluster -Ulcer Cleansing Rinsed/ Irrigated with Saline -Foul Odor after Cleansing No -Negative Pressure Wound Therapy N/A -Other Dressing wet to dry today ABD -Primary Dressing Covered/Secured with Dry Gauze, Secured with Tape -Other Covering Treatment Response Pain Scale: 0-10 Numeric Is Patient Pain Free? Yes WC - Visit Discharge Discharge Condition Stable Ambulatory Status Ambulatory Transportation Private Auto Accompanied by Medication Reconcilliation completed & Yes provided to patient/care provider Clinical Summary of Care Provided Yes Orders Sent Additional Wound Wound debrided: ischial ulcer cluster Laterality: Left Wound Grade/Stage: Stage II Type of Debridement: Excisional debridement Depth: Down to and including healthy tissue and in the subcutaneous layer Percentage of wound debrided: 100 Instrument Used: 3mm curette Tissue Removed: Devitalized tissue and slough Severity: Fat Layer Exposed Amount of bleeding with debridement: Mild Bleeding Controlled with: Compression and gauze Patient tolerated procedure: Patient tolerated procedure well Assessment/Plan Assessment/Plan (1) Ulcer of right groin with fat layer exposed: CODE(S): L98.492 - Non-pressure chronic ulcer of skin of other sites with fat layer exposed (2) Ulcer of scrotum: CODE(S): N50.89 - Other specified disorders of the male genital organs (3) Ulcer of perineum with fat layer exposed: CODE(S): L98.492 - Non-pressure chronic ulcer of skin of other sites with fat layer exposed (4) Chronic ulcer of buttock: CODE(S): L98.419 - Non-pressure chronic ulcer of buttock with unspecified severity (5) Suppurative hidradenitis: CODE(S): L73.2 - Hidradenitis suppurativa (6) Smoker: CODE(S): F17.200 - Nicotine dependence, unspecified, uncomplicated (7) Hypertension: CODE(S): I10 - Essential (primary) hypertension QUALIFIERS: Hypertension type: primary hypertension Qualified Code(s): I10 - Essential (primary) hypertension (8) Diabetes type 2, uncontrolled: CODE(S): E11.65 - Type 2 diabetes mellitus with hyperglycemia (9) Hemoglobin A1c greater than 8.0 percent: CODE(S): R73.09 - Other abnormal glucose (10) Post-operative pain: CODE(S): G89.18 - Other acute postprocedural pain PLAN: Plan Patient was evaluated at the wound healing center. Operative wound cultures from 11/23/21 positive for Streptococcus constellatus and Corynebacterium striatum. He completed Cefdinir 300mg BID. Creatinine repeat on 11/27/21, which was down to 1.62 from 1.73 on 11/25/21. Also, repeat K+ 4.0. Patient is on his Plavix. Left ischial ulcer wound culture obtained 02/14/21 which was positive for Corynebacterium striatum which is not typically treated with antibiotics. Wound care - Saline moistened gauze on the day of debridement then Dakin's 0.25% moistened covered by ABD/super absorber daily and prn to right groin. Make sure to pack into the base of the tunnels and undermining. Left ischial ulcer cluster collagen hydrogel covered with adaptic and topped with gauze daily. Right scrotal ulcer is healed today. Encouraged increase protein intake and increase Vitamin C intake. Will need supplemental protein to help heal this wound. Encouraged patient to stop smoking as it may have deleterious effects on wound healing. Patient sees dermatology who is managing the medical portion of his hidradenitis. Follow up two weeks. Call or come in sooner if develop any questions or concerns.
== END 2022-03-13 23:59 | disposition home or self-care (01) ==
LOC: WC 09:15
PROVIDERS: PCP Nurse Practitioner; Referring Provider Nurse Practitioner Family; Visit Provider Nurse Practitioner Family
DX: L73.2 Hidradenitis suppurativa (principal); E11.622 Type 2 diabetes mellitus with other skin ulcer; L98.492 Non-pressure chronic ulcer of skin of other sites with fat layer exposed; I10 Essential (primary) hypertension; N50.89 Other specified disorders of the male genital organs; I25.10 Atherosclerotic heart disease of native coronary artery without angina pectoris; F17.200 Nicotine dependence, unspecified, uncomplicated
CPT/HCPCS: 11042; 11045; 87070; 87075; 87077; 87205

== ENCOUNTER 2022-04-02 09:00 | Outpatient (RCR) | payer BC, SELFPAY ==
[2022-03-14 00:32] VITALS: BP 192/85; PULSE 77; RESP 20; TEMP 36.5
[2022-03-19 08:50] VITALS: RESP 18; TEMP 36.2
[2022-03-19 09:10] VITALS: BP 240/120
--- NOTE | 2022-03-19 12:33 | PN.PCM_ITS ---
History of Present Illness Date of Service: 03/19/22 Chief Complaint: Excision of hidradenitis of right inguinal, scrotal and p erineal area History of Wound: 56 year old male who is known to me. He has a history significant for hidradenitis, DM type II, HTN, CAD, arterial insufficiency, and smoker. He had surgery on 11/23/21 for 1. Surgical preparation right inguinal area with excision suppurative hidradenitis abscess (112 cm2, and 192 cm2 total). 2. Surgical preparation right scrotum with incision and drainage and excision suppurative hidradenitis abscess (50 cm2, and 192 cm2 total). 3. Surgical preparation right perineal area with excision suppurative hidradenitis abscess (30 cm2, and 192 cm2 total). Operative wound cultures from 11/23/21 positive for Streptococcus constellatus and Corynebacterium striatum. He was started on Cefdinir 300mg BID. Creatinine repeat today, 11/27/21, down to 1.62 from 1.73 on 11/25/21. Wound care - Dakin's 0.25% moistened gauze covered by ABD/super absorber daily and prn to right groin. Left ischial ulcer aquacel-ag covered with gauze daily. Today he denies fevers, chills, nausea and vomiting. He states that he has a good appetite. Other history: Surgery 03/22/20 - 1. Surgical preparation left inguinal area with excision hidradenitis (315 cm2 total wound). 2. Surgical preparation perineal area with excision hidradenitis (315 cm2 total wound). 3. Surgical preparation base left scrotum with incision and drainage and excision hidradenitis (315 cm2 total wound). Operative culture from 03/22/20 - Enterococcus faecalis and Streptococcus group F, Anaerobic cocci and Prevotella bivia. He was treated with Linezolid and Flagyl and has completed them. He saw Dr. Kasey live had an angioplasty of some of his vessels in his legs. Patient admitted to the hospital for increased redness and swelling of his left groin and buttocks on 09/27/20. Patient was started on IV Vancomycin, Levaquin and Flagyl by ID. Surgery 09/29/20 - 1. Surgical preparation left perianal area with excision hidradenitis abscess (144 cm2). 2. Surgical preparation left posterior thigh with incision and drainage and excisional debridement hidradenitis abscess (96 cm2). Operative cultures from 09/29/20 positive for Streptococcus constellatus, Co rynebacterium striatum, Anaerobic cocci, and Prevotella species. Pathology of left perianal and left posterior thigh abscess showed pieces of skin with underlying tisse with acute and chronic inflammation, granulation tissue reaction and abscess formation. 10/01/20 - Laparoscopic sigmoid colostomy placed by Dr. Osorio due to the complicated perineal wound secondary to hidradenitis suppurativa status post excision. Culture from 02/14/22 positive for Corynebacterium striatum. Progress of Wound: Right groin wound appears smaller. Wound bed is pink. The tunneling at 6 o'clock is stable. Left ischial ulcer is healed today. Objective Data Objective Data Vital Signs: Vital Signs Temp Pulse Resp BP 97.1 F L 77 18 240/120 H 03/19/22 08:50 03/14/22 00:32 03/19/22 08:50 03/19/22 09:10 Charges/Coding Procedures Integumentary [id number]: [id number] Ayla subq tissue 20 sq cm/< Debridement Note Debridement Note Wound debrided: groin, scrotum, perineal area Laterality: Right Wound Grade/Stage: Stage IV Type of Debridement: Excisional debridement Anesthesia Used: 5% Lidocaine Gel Depth: Down to and including healthy tissue and in the subcutaneous layer Percentage of wound debrided: 100 Instrument Used: 7mm curette Tissue Removed: Devitalized tissue and biofilm Severity: Fat Layer Exposed Amount of bleeding with debridement: Mild Bleeding Controlled with: Pressure and Compression and gauze Patient tolerated procedure: Patient tolerated procedure well Post-Debridement Measurements and Additional Note: Post-Debridement Measurements/Treatment - Nurse 1 - General Ulcer Assessment Start: 03/19/22 08:49 Freq: Status: Active Protocol: ROC Activity Type Activity Date Activity User E-sign Co-sign Detail Recorded Client Recorded Date Recorded By Document 03/19/22 08:50 DL [id number] 03/19/22 08:55 DL 03/19/22 08:50 - Today's Visit Information Type of service Follow-up Visit (Physician/COIL BINDER ) Arrival Mode Cane Transfer Assistance None Patient Identification Verified (Name & Yes ) Patient Requires Transmission-Based No Precautions Finger Stick Blood Sugar(mg/dl) (if not checked indicated): Blood Sugar Stated by Patient Vital Signs Temperature (97.8 F-99.1 F) 97.1 F L Temperature Source Temporal Respiratory Rate (12-18) 18 Respiratory rate source Observation History Since Last Visit- (Skip if this is Patient's initial visit) Have you changed medications since your No last visit? Any new allergies or adverse reactions No Had a fall/change in ADL's that may No increase risk of falls Signs or symptoms of abuse and/or No neglect since last visit Have you been in the hospital since your No last visit? Has dressing in place as prescribed Yes Has compression in place as prescribed N/A Has offloadiing in place as prescribed Yes Experienced any changes in pain level or No management Pain Scale: 0-10 Numeric Is Patient Pain Free? Yes WC - Nurse 1 - General Ulcer Measurement Start: 03/19/22 08:49 Freq: Status: Active Protocol: Activity Type Activity Date Activity User E-sign Co-sign Detail Recorded Client Recorded Date Recorded By Document 03/19/22 08:50 DL [id number] 03/19/22 08:55 DL 03/19/22 08:50 Wound Center Nurse 1 #6 L Ischium cluster -Current Size (cm) - Length 0.1 -Current Size (cm) - Width 0.1 -Current Size (cm) - Depth 0.1 -Total Square Cm 0.01 -Photo Taken Yes -Exudate Amt None Present -Wound Margin Flat & Intact -Granulation Amt Large (67-100%) -Granulation Quality [place] -Necrosis Amt None Present (0 %) -Structure Exposed N/A -Texture ([place]-wound Skin Appearance) Scarring -Moisture ([place]ola-wound Skin Appearance) No Abnormality -Color ([place]ola-wound Skin Appearance) No Abnormality -Temperature ([place]-wound Skin No Abnormality Appearance) (Pt Warm) -Tenderness on Palpation ([place]-wound No Skin Appearance) -Ulcer Cleansing Soap and Water -Foul Odor after Cleansing No -Anesthetic Used 5% Lidocaine Gel #5scrotum/R Groin Cluster -Current Size (cm) - Length 7.1 -Current Size (cm) - Width 3.5 -Current Size (cm) - Depth 0.3 -Total Square Cm 24.85 -Photo Taken Yes -Exudate Amt Medium -Exudate Type Serosanguineous -Wound Margin Distinct, Outline Attached -Granulation Amt Large (67-100%) -Granulation Quality Red -Necrosis Amt Small (1-33%) -Necrotic Tissue Type Adherent Slough -Structure Exposed N/A -Texture ([place]imbola-wound Skin Appearance) Scarring -Moisture ([place]imbola-wound Skin Appearance) No Abnormality -Color ([place]imbola-wound Skin Appearance) No Abnormality -Temperature ([place]-wound Skin No Abnormality Appearance) (Pt Warm) -Anesthetic Used 5% Lidocaine Gel,Cetacaine WC - Nurse 2 - General Ulcer CM Notes Start: 03/19/22 08:49 Freq: Status: Active Protocol: Activity Type Activity Date Activity User E-sign Co-sign Detail Recorded Client Recorded Date Recorded By Document 03/19/22 09:04 LIZETTE [id number] 03/19/22 09:07 LIZETTE 03/19/22 09:04 Wound Center Nurse 2 #6 L Ischium cluster -Correct Patient No -Correct Side, Site, Position No -Correct Procedure No -Procedure Performed No -Post Debridement (cm) - Length 0 -Post Debridement (cm) - Width 0 -Post Debridement (cm) - Depth 0 -Total Square (Post) (cm) 0 -Area of Debridement (cm) - Length 0 -Area of Debridement (cm) - Width 0 -Total Square (Area) (cm) 0 -Wound/Ulcer Outcome Healed- Epithelialized #5scrotum/R Groin Cluster -Time 09:05 -Correct Patient Yes -Correct Side, Site, Position Yes -Correct Procedure Yes -Procedure Performed Yes -Type of Procedure Debridement -Clinical Debridement Subcutaneous -Tissue Removed Subcutaneous -Post Debridement (cm) - Length 8.8 -Post Debridement (cm) - Width 3.0 -Post Debridement (cm) - Depth 0.1 -Total Square (Post) (cm) 26.40 -Area of Debridement (cm) - Length 8.8 -Area of Debridement (cm) - Width 3.0 -Total Square (Area) (cm) 26.40 -Tunneling Yes -Tunneling Position (O'clock) 6 -Tunneling Distance (cm) 2.5 -Undermining/Tunneling No -Circular Undermining No -Wound/Ulcer Outcome Not Healed -Ulcer Cleansing Rinsed/ Irrigated with Saline -Foul Odor after Cleansing No -Bioengineered Tissue No -Bleeding Controlled with Pressure -Treatment Response Procedure Tolerated Well -Offloading No -Debridement - Subq, 1st 20sq cm Yes -Debridement, SubQ, ea addt'l 20sq cm 1 or part thereof -Debridement - Muscle / Fascia, 1st No 20sq cm -Debridement - Bone, 1st 20sq cm No Pain Scale: 0-10 Numeric Is Patient Pain Free? Yes WC - Nurse 3 - General Ulcer D/C NN Start: 03/19/22 08:49 Freq: Status: Active Protocol: Activity Type Activity Date Activity User E-sign Co-sign Detail Recorded Client Recorded Date Recorded By Document 03/19/22 09:10 AK [id number] 03/19/22 09:21 AK Edit Result 03/19/22 09:10 AK (1) [id number] 03/19/22 09:25 DL (1) Notes: Pt BP elevated. states he does not take his BP meds like he should. Instructed take them as ordered, pt doesnt seem concerned. INSURANCE CLAIMS SPECIALIST aware. => Pt BP elevated. states he does not take his BP meds like he should. Instructed take them as ordered, refusing to go to ER. Pt doesn't seem concerned. INSURANCE CLAIMS SPECIALIST aware. 03/19/22 09:10 Wound Care Center Nurse 3 #5scrotum/R Groin Cluster -Ulcer Cleansing Rinsed/ Irrigated with Saline -Foul Odor after Cleansing No -Negative Pressure Wound Therapy N/A -Other Dressing own dakins @ home -saline here, ABD Vital Signs Blood Pressure (90/60-120/80) 240/120 H Blood Pressure Mean (mm Hg) 160 Source Manual Comment BP rechecked Manual:240/120 Pt states he doesnt take his meds regularly . Pain Scale: 0-10 Numeric Is Patient Pain Free? No WC - Visit Discharge Discharge Condition Stable Ambulatory Status Ambulatory Transportation Private Auto Accompanied by Medication Reconcilliation completed & Yes provided to patient/care provider Clinical Summary of Care Provided Yes Notes: Pt BP elevated. states he does not take his BP meds like he should. Instructed take them as ordered, refusing to go to ER. Pt doesn 't seem concerned. INSURANCE CLAIMS SPECIALIST aware. Assessment/Plan Assessment/Plan (1) Ulcer of right groin with fat layer exposed: CODE(S): L98.492 - Non-pressure chronic ulcer of skin of other sites with fat layer exposed (2) Ulcer of scrotum: CODE(S): N50.89 - Other specified disorders of the male genital organs (3) Ulcer of perineum with fat layer exposed: CODE(S): L98.492 - Non-pressure chronic ulcer of skin of other sites with fat layer exposed (4) Chronic ulcer of buttock: CODE(S): L98.419 - Non-pressure chronic ulcer of buttock with unspecified severity (5) Suppurative hidradenitis: CODE(S): L73.2 - Hidradenitis suppurativa (6) Smoker: CODE(S): F17.200 - Nicotine dependence, unspecified, uncomplicated (7) Hypertension: CODE(S): I10 - Essential (primary) hypertension QUALIFIERS: Hypertension type: primary hypertension Qualified Code(s): I10 - Essential (primary) hypertension (8) Diabetes type 2, uncontrolled: CODE(S): E11.65 - Type 2 diabetes mellitus with hyperglycemia (9) Hemoglobin A1c greater than 8.0 percent: CODE(S): R73.09 - Other abnormal glucose (10) Post-operative pain: CODE(S): G89.18 - Other acute postprocedural pain PLAN: Plan Patient was evaluated at the wound healing center. Operative wound cultures from 11/23/21 positive for Streptococcus constellatus and Corynebacterium striatum. He completed Cefdinir 300mg BID. Creatinine repeat on 11/27/21, which was down to 1.62 from 1.73 on 11/25/21. Also, repeat K+ 4.0. Patient is on his Plavix. Left ischial ulcer wound culture obtained 02/14/21 which was positive for Corynebacterium striatum which is not typically treated with antibiotics. Wound care - Right groin is saline moistened gauze on the day of debridement then Dakin's 0.25% moistened covered by ABD/super absorber daily and prn to right groin. Make sure to pack into the base of the tunnel and undermining. Left ischial ulcer cluster is healed today and the right scrotal ulcer remains. Encouraged increase protein intake and increase Vitamin C intake. Will need supplemental protein to help heal this wound. Encouraged patient to stop smoking as it may have deleterious effects on wound healing. Patient sees dermatology who is managing the medical portion of his hidradenitis. Follow up two weeks. Call or come in sooner if develop any questions or concerns.
[2022-04-02 08:51] VITALS: BP 166/77; PULSE 90; RESP 16; TEMP 35.2
--- NOTE | 2022-04-02 10:21 | PCM.WC.PN ---
History of Present Illness Date of Service: 04/02/22 Chief Complaint: Excision of hidradenitis of right inguinal, scrotal and perineal area History of Wound: 56 year old male who is known to me. He has a history significant for hidradenitis, DM type II, HTN, CAD, arterial insufficiency, and smoker. He had surgery on 11/23/21 for 1. Surgical preparation right inguinal area with excision suppurative hidradenitis abscess (112 cm2, and 192 cm2 total). 2. Surgical preparation right scrotum with incision and drainage and excision suppurative hidradenitis abscess (50 cm2, and 192 cm2 total). 3. Surgical preparation right perineal area with excision suppurative hidradenitis abscess (30 cm2, and 192 cm2 total). Operative wound cultures from 11/23/21 positive for Streptococcus constellatus and Corynebacterium striatum. He was started on Cefdinir 300mg BID. Creatinine repeat today, 11/27/21, down to 1.62 from 1.73 on 11/25/21. Wound care - Dakin's 0.25% moistened gauze covered by ABD/super absorber daily and prn to right groin. Left ischial ulcer aquacel-ag covered with gauze daily. Today he denies fevers, chills, nausea and vomiting. He states that he has a good appetite. Other history: Surgery 03/22/20 - 1. Surgical preparation left inguinal area with excision hidradenitis (315 cm2 total wound). 2. Surgical preparation perineal area with excision hidradenitis (315 cm2 total wound). 3. Surgical preparation base left scrotum with incision and drainage and excision hidradenitis (315 cm2 total wound). Operative culture from 03/22/20 - Enterococcus faecalis and Streptococcus group F, Anaerobic cocci and Prevotella bivia. He was treated with Linezolid and Flagyl and has completed them. He saw Dr. Kasey live had an angioplasty of some of his vessels in his legs. Patient admitted to the hospital for increased redness and swelling of his left groin and buttocks on 09/27/20. Patient was started on IV Vancomycin, Levaquin and Flagyl by ID. Surgery 09/29/20 - 1. Surgical preparation left perianal area with excision hidradenitis abscess (144 cm2). 2. Surgical preparation left posterior thigh with incision and drainage and excisional debridement hidradenitis abscess (96 cm2). Operative cultures from 09/29/20 positive for Streptococcus constellatus, Corynebacterium striatum, Anaerobic cocci, and Prevotella species. Pathology of left perianal and left posterior thigh abscess showed pieces of skin with underlying tisse with acute and chronic inflammation, granulation tissue reaction and abscess formation. 10/01/20 - Laparoscopic sigmoid colostomy placed by Dr. Osorio due to the complicated perineal wound secondary to hidradenitis suppurativa status post excision. Culture from 02/14/22 positive for Corynebacterium striatum. Progress of Wound: Right groin wound is smaller. Wound bed is pink. The tunneling at 6 o'clock is stable. Left ischial ulcer remains healed today. Objective Data Objective Data Vital Signs: Vital Signs Temp Pulse Resp BP O2 Del Method 95.4 F L 90 16 166/77 H Room Air 04/02/22 08:51 04/02/22 08:51 04/02/22 08:51 04/02/22 08:51 04/02/22 08:51 Oxygen Delivery Method Room Air Charges/Coding Procedures Integumentary 111xxx-113xx: 80250 Ayla subq tissue 20 sq cm/< Add On Codes: 34052 Ayla subq tissue add-on Debridement Note Debridement Note Wound debrided: groin, scrotum, perineal area Laterality: Right Wound Grade/Stage: Stage IV Type of Debridement: Excisional debridement Anesthesia Used: 5% Lidocaine Gel Depth: Down to and including healthy tissue and in the subcutaneous layer Percentage of wound debrided: 100 Instrument Used: 5mm curette Tissue Removed: Devitalized tissue and biofilm Severity: Fat Layer Exposed Amount of bleeding with debridement: Mild Bleeding Controlled with: Pressure and Compression and gauze Patient tolerated procedure: Patient tolerated procedure well Post-Debridement Measurements and Additional Note: Post-Debridement Measurements/Treatment WC - Nurse 1 - General Ulcer Assessment Start: 03/19/22 08:49 Freq: Status: Active Protocol: BEKA.LOWSARMAD Activity Type Activity Date Activity User E-sign Co-sign Detail Recorded Client Recorded Date Recorded By Document 03/19/22 08:50 DL [id number] 03/19/22 08:55 DL Document 04/02/22 08:51 [facility] [id number] 04/02/22 08:54 BM 03/19/22 04/02/22 08:50 08:51 - Today's Visit Information Type of service Follow-up Visit Follow-up Visit (Physician/SENIOR HEALTH EDUCATOR (Physician/SENIOR HEALTH EDUCATOR ) ) Arrival Mode Cane Ambulatory Transfer Assistance None None Patient Identification Verified (Name & Yes Yes ) Patient Requires Transmission-Based No No Precautions Finger Stick Blood Sugar(mg/dl) (if not checked indicated): Blood Sugar Stated by Patient Vital Signs Temperature (97.8 F-99.1 F) 97.1 F L 95.4 F L Temperature Source Temporal Temporal Pulse Rate (60-100) 90 Pulse Location Monitor Respiratory Rate (12-18) 18 16 Respiratory rate source Observation Observation Oxygen Delivery Method Room Air Blood Pressure (90/60-120/80) 166/77 H Blood Pressure Mean (mm Hg) 106 Source Monitor Position Sitting History Since Last Visit- (Skip if this is Patient's initial visit) Have you changed medications since your No No last visit? Any new allergies or adverse reactions No No Had a fall/change in ADL's that may No No increase risk of falls Signs or symptoms of abuse and/or No No neglect since last visit Have you been in the hospital since your No No last visit? Has dressing in place as prescribed Yes Yes Has compression in place as prescribed N/A N/A Has offloadiing in place as prescribed Yes N/A Experienced any changes in pain level or No No management Left Footwear Regular Shoe Right Footwear Regular Shoe Pain Scale: 0-10 Numeric Is Patient Pain Free? Yes Yes - Nurse 1 - General Ulcer Measurement Start: 03/19/22 08:49 Freq: Status: Active Protocol: Activity Type Activity Date Activity User E-sign Co-sign Detail Recorded Client Recorded Date Recorded By Document 03/19/22 08:50 DL [id number] 03/19/22 08:55 DL Document 04/02/22 08:51 [facility] [id number] 04/02/22 08:54 BM 03/19/22 04/02/22 08:50 08:51 Wound Center Nurse 1 #6 L Ischium cluster -Current Size (cm) - Length 0.1 -Current Size (cm) - Width 0.1 -Current Size (cm) - Depth 0.1 -Total Square Cm 0.01 -Photo Taken Yes -Exudate Amt None Present -Wound Margin Flat & Intact -Granulation Amt Large (67-100%) -Granulation Quality [place] -Necrosis Amt None Present (0 %) -Structure Exposed N/A -Texture ([place]-wound Skin Appearance) Scarring -Moisture ([place]-wound Skin Appearance) No Abnormality -Color ([place]-wound Skin Appearance) No Abnormality -Temperature ([place]-wound Skin No Abnormality Appearance) (Pt Warm) -Tenderness on Palpation ([place]-wound No Skin Appearance) -Ulcer Cleansing Soap and Water -Foul Odor after Cleansing No -Anesthetic Used 5% Lidocaine Gel #5scrotum/R Groin Cluster -Combined with other wound No -Current Size (cm) - Length 7.1 5.7 -Current Size (cm) - Width 3.5 2.5 -Current Size (cm) - Depth 0.3 0.1 -Total Square Cm 24.85 14.25 -Date of Last Picture (Recall this 04/02/22 field) -Photo Taken Yes Yes -Epithelialization Small 1-33% -Tunneling No -Undermining/Tunneling No -Circular Undermining No -Exudate Amt Medium Large -Exudate Type Serosanguineous Serosanguineous -Wound Margin Distinct, Distinct, Outline Outline Attached Attached -Granulation Amt Large (67-100%) Large (67-100%) -Granulation Quality Red [place] -Slough/Fibrin No -Necrosis Amt Small (1-33%) None Present (0 %) -Necrotic Tissue Type Adherent Slough -Structure Exposed N/A -Texture ([place]-wound Skin Appearance) Scarring Assessed, Scarring -Moisture ([place]-wound Skin Appearance) No Abnormality Assessed -Color ([place]-wound Skin Appearance) No Abnormality Assessed -Temperature ([place]-wound Skin No Abnormality No Abnormality Appearance) (Pt Warm) (Pt Warm) -Tenderness on Palpation ([place]-wound No Skin Appearance) -Ulcer Cleansing Soap and Water -Foul Odor after Cleansing No -Anesthetic Used 5% Lidocaine 4% Lidocaine Gel,Cetacaine Solution WC - Nurse 2 - General Ulcer CM Notes Start: 03/19/22 08:49 Freq: Status: Active Protocol: Activity Type Activity Date Activity User E-sign Co-sign Detail Recorded Client Recorded Date Recorded By Document 03/19/22 09:04 [id number] 03/19/22 09:07 Document 04/02/22 09:20 [id number] 04/02/22 09:22 03/19/22 04/02/22 09:04 09:20 Wound Center Nurse 2 #6 L Ischium cluster -Correct Patient No -Correct Side, Site, Position No -Correct Procedure No -Procedure Performed No -Post Debridement (cm) - Length 0 -Post Debridement (cm) - Width 0 -Post Debridement (cm) - Depth 0 -Total Square (Post) (cm) 0 -Area of Debridement (cm) - Length 0 -Area of Debridement (cm) - Width 0 -Total Square (Area) (cm) 0 -Wound/Ulcer Outcome Healed- Epithelialized #5scrotum/R Groin Cluster -Time 09:05 09:20 -Correct Patient Yes Yes -Correct Side, Site, Position Yes Yes -Correct Procedure Yes Yes -Procedure Performed Yes Yes -Type of Procedure Debridement Debridement -Clinical Debridement Subcutaneous Subcutaneous -Tissue Removed Subcutaneous Subcutaneous -Post Debridement (cm) - Length 8.8 8.5 -Post Debridement (cm) - Width 3.0 3.0 -Post Debridement (cm) - Depth 0.1 0.1 -Total Square (Post) (cm) 26.40 25.50 -Area of Debridement (cm) - Length 8.8 8.5 -Area of Debridement (cm) - Width 3.0 3.0 -Total Square (Area) (cm) 26.40 25.50 -Tunneling Yes Yes -Tunneling Position (O'clock) 6 6 -Tunneling Distance (cm) 2.5 3.1 -Undermining/Tunneling No No -Circular Undermining No No -Wound/Ulcer Outcome Not Healed Not Healed -Ulcer Cleansing Rinsed/ Rinsed/ Irrigated with Irrigated with Saline Saline -Foul Odor after Cleansing No No -Bioengineered Tissue No No -Bleeding Controlled with Pressure Pressure -Treatment Response Procedure Procedure Tolerated Well Tolerated Well -Offloading No No -Debridement - Subq, 1st 20sq cm Yes Yes -Debridement, SubQ, ea addt'l 20sq cm 1 1 or part thereof -Debridement - Muscle / Fascia, 1st No 20sq cm -Debridement - Bone, 1st 20sq cm No Pain Scale: 0-10 Numeric Is Patient Pain Free? Yes Yes WC - Nurse 3 - General Ulcer D/C NN Start: 03/19/22 08:49 Freq: Status: Active Protocol: Activity Type Activity Date Activity User E-sign Co-sign Detail Recorded Client Recorded Date Recorded By Document 03/19/22 09:10 AK [id number] 03/19/22 09:21 AK Edit Result 03/19/22 09:10 AK (1) [id number] 03/19/22 09:25 DL Document 04/02/22 09:34 BMF [id number] 04/02/22 09:35 BMF (1) Notes: Pt BP elevated. states he does not take his BP meds like he should. Instructed take them as ordered, pt doesnt seem concerned. CYLINDER HANDLER aware. => Pt BP elevated. states he does not take his BP meds like he should. Instructed take them as ordered, refusing to go to ER. Pt doesn't seem concerned. CYLINDER HANDLER aware. 03/19/22 04/02/22 09:10 09:34 Wound Care Center Nurse 3 #5scrotum/R Groin Cluster -Ulcer Cleansing Rinsed/ Rinsed/ Irrigated with Irrigated with Saline Saline -Foul Odor after Cleansing No No -Negative Pressure Wound Therapy N/A -Other Dressing own dakins @ [email or web address], home -saline secured w/ here, ABD coban per pt preference; abd -Other Covering drsg per dl personal care attendant Treatment Response Procedure Tolerated Well Vital Signs Blood Pressure (90/60-120/80) 240/120 H Blood Pressure Mean (mm Hg) 160 Source Manual Comment BP rechecked Manual:240/120 Pt states he doesnt take his meds regularly . Pain Scale: 0-10 Numeric Is Patient Pain Free? No Yes WC - Visit Discharge Discharge Condition Stable Stable Ambulatory Status Ambulatory Ambulatory Transportation Private Auto Private Auto Accompanied by Medication Reconcilliation completed & Yes provided to patient/care provider Clinical Summary of Care Provided Yes Notes: Pt BP elevated. states he does not take his BP meds like he should. Instructed take them as ordered, refusing to go to ER. Pt doesn 't seem concerned. CYLINDER HANDLER aware. Facility Type Home Health Assessment/Plan Assessment/Plan (1) Ulcer of right groin with fat layer exposed: CODE(S): L98.492 - Non-pressure chronic ulcer of skin of other sites with fat layer exposed (2) Ulcer of scrotum: CODE(S): N50.89 - Other specified disorders of the male genital organs (3) Ulcer of perineum with fat layer exposed: CODE(S): L98.492 - Non-pressure chronic ulcer of skin of other sites with fat layer exposed (4) Suppurative hidradenitis: CODE(S): L73.2 - Hidradenitis suppurativa (5) Smoker: CODE(S): F17.200 - Nicotine dependence, unspecified, uncomplicated (6) Hypertension: CODE(S): I10 - Essential (primary) hypertension QUALIFIERS: Hypertension type: primary hypertension Qualified Code(s): I10 - Essential (primary) hypertension (7) Diabetes type 2, uncontrolled: CODE(S): E11.65 - Type 2 diabetes mellitus with hyperglycemia (8) Hemoglobin A1c greater than 8.0 percent: CODE(S): R73.09 - Other abnormal glucose (9) Post-operative pain: CODE(S): G89.18 - Other acute postprocedural pain PLAN: Plan Patient was evaluated at the wound healing center. Wound care - Right groin is moistened Aquacel-Ag covered by gauze/ABD/super absorber daily and prn to right groin. Make sure to pack into the base of the tunnel around 6 o'clock. Left ischial ulcer cluster remains healed, but is dry flakey, so make sure to massage with lotion 1-2 times daily. Operative wound cultures from 11/23/21 positive for Streptococcus constellatus and Corynebacterium striatum. He completed Cefdinir 300mg BID. Creatinine repeat on 11/27/21, which was down to 1.62 from 1.73 on 11/25/21. Also, repeat K+ 4.0. Patient is on his Plavix. Left ischial ulcer wound culture obtained 02/14/21 which was positive for Corynebacterium striatum which is not typically treated with antibiotics. Encouraged increase protein intake and increase Vitamin C intake. Will need supplemental protein to help heal this wound. Encouraged patient to stop smoking as it may have deleterious effects on wound healing. Patient sees dermatology who is managing the medical portion of his hidradenitis. Follow up two weeks. Call or come in sooner if develop any questions or concerns.
== END 2022-04-10 23:59 | disposition home or self-care (01) ==
LOC: WC 09:00
PROVIDERS: PCP Nurse Practitioner; Referring Provider Nurse Practitioner Family; Visit Provider Nurse Practitioner Family
DX: L73.2 Hidradenitis suppurativa (principal); E11.622 Type 2 diabetes mellitus with other skin ulcer; L98.492 Non-pressure chronic ulcer of skin of other sites with fat layer exposed; E11.65 Type 2 diabetes mellitus with hyperglycemia; I25.10 Atherosclerotic heart disease of native coronary artery without angina pectoris; I10 Essential (primary) hypertension; F17.200 Nicotine dependence, unspecified, uncomplicated; N50.89 Other specified disorders of the male genital organs
CPT/HCPCS: 11042; 11045

== ENCOUNTER → 2022-04-23 | Outpatient (CLI) | payer BC, SELFPAY ==
[2022-04-23 22:34] LABS: Absolute Lymphocyte Count 2.52 X10^3/uL (0.83-4.51); Absolute Neutrophil Count 5.7 X10^3/uL (2.0-7.7); Basophil# 0.07 X10^3/uL; Basophil% 0.8 % (0-1); Eosinophil# 0.19 X10^3/uL; Eosinophils% 2.1 % (0-5); Hematocrit 34.8 % (40-54); Hemoglobin 10.7 g/dL (13.0-16.5); Lymphocyte # 2.52 X10^3/ul (0.83-4.51); Lymphocyte % 27.7 % (19-41); Mean Corp Hgb Conc 30.7 g/dL (32-36); Mean Corpuscular Volume 84.5 fL (80-94); Mean Platelet Vol. 9.6 fl (6.2-12.0); Monocyte# 0.56 X10^3/uL; Monocyte% 6.2 % (0-10); NRBC Flagged by Analyzer 0 % (0-5); Neutrophil # 5.73 X10^3/uL (2.7-7.7); Neutrophil % 62.9 % (47-70); Platelet Count 352 K/mm3 (150-450); RBC Distribution Width CV 14.4 % (11.6-14.6); RBC Distribution Width SD 43.8 fl (35.1-43.9); Red Blood Count 4.12 M/mm3 (4.6-6.2); White Blood Count 9.1 K/mm3 (4.4-11.0)
[2022-04-23 23:06] LABS: ALB/GLOB Ratio 0.5 RATIO (0.9-2.4); AST(SGOT) 10 U/L (15-37); Alanine Aminotransfer ALT/SGPT 14 U/L (16-61); Albumin, Serum 2.4 g/dL (3.2-5.0); Alkaline Phosphatase 142 U/L (45-117); Anion Gap 6 (5-15); BUN 9 mg/dL (7-18); BUN/Creat Ratio 5.8 RATIO (10-20); Calcium,Total 8.5 mg/dL (8.5-10.1); Chloride 108 mmol/L (98-107); Creatinine, Serum 1.56 mg/dL (0.70-1.30); EST Glomerular Filtration Rate 49 mL/min (>60); Est Glom Filt Rate - Afr Amer 59 mL/min (>60); Globulin 5.3 g/dL (2.2-4.2); Glucose 129 mg/dL (74-106); Potassium 4.5 mmol/L (3.5-5.1); Prealbumin 19.8 mg/dL (20.0-40.0); Protein, Total 7.7 g/dL (6.4-8.2); Sodium Level 140 mmol/L (136-145); Thyroid Stim Hormone (TSH) 1.91 uIU/mL (0.358-3.74)
== END | disposition home or self-care (01) ==
PROVIDERS: PCP Nurse Practitioner; Visit Provider Nurse Practitioner
DX: E87.6 Hypokalemia (principal); E46 Unspecified protein-calorie malnutrition; I10 Essential (primary) hypertension; D50.9 Iron deficiency anemia, unspecified
CPT/HCPCS: 80053; 84134; 84443; 85025

== ENCOUNTER 2022-04-30 09:00 | Outpatient (RCR) | payer BC, SELFPAY ==
[2022-04-11 00:22] VITALS: BP 166/77; PULSE 90; RESP 16; TEMP 35.2
[2022-04-16 08:56] VITALS: BP 204/74; PULSE 81; TEMP 36.2
--- NOTE | 2022-04-16 11:25 | PN.PCM_ITS ---
History of Present Illness Date of Service: 04/16/22 Chief Complaint: Excision of hidradenitis of right inguinal, scrotal and p erineal area History of Wound: 56 year old male who is known to me. He has a history significant for hidradenitis, DM type II, HTN, CAD, arterial insufficiency, and smoker. He had surgery on 11/23/21 for 1. Surgical preparation right inguinal area with excision suppurative hidradenitis abscess (112 cm2, and 192 cm2 total). 2. Surgical preparation right scrotum with incision and drainage and excision suppurative hidradenitis abscess (50 cm2, and 192 cm2 total). 3. Surgical preparation right perineal area with excision suppurative hidradenitis abscess (30 cm2, and 192 cm2 total). Operative wound cultures from 11/23/21 positive for Streptococcus constellatus and Corynebacterium striatum. He was started on Cefdinir 300mg BID. Creatinine repeat today, 11/27/21, down to 1.62 from 1.73 on 11/25/21. Wound care - Dakin's 0.25% moistened gauze covered by ABD/super absorber daily and prn to right groin. Left ischial ulcer aquacel-ag covered with gauze daily. Today he denies fevers, chills, nausea and vomiting. He states that he has a good appetite. Other history: Surgery 03/22/20 - 1. Surgical preparation left inguinal area with excision hidradenitis (315 cm2 total wound). 2. Surgical preparation perineal area with excision hidradenitis (315 cm2 total wound). 3. Surgical preparation base left scrotum with incision and drainage and excision hidradenitis (315 cm2 total wound). Operative culture from 03/22/20 - Enterococcus faecalis and Streptococcus group F, Anaerobic cocci and Prevotella bivia. He was treated with Linezolid and Flagyl and has completed them. He saw Dr. Kasey live had an angioplasty of some of his vessels in his legs. Patient admitted to the hospital for increased redness and swelling of his left groin and buttocks on 09/27/20. Patient was started on IV Vancomycin, Levaquin and Flagyl by ID. Surgery 09/29/20 - 1. Surgical preparation left perianal area with excision hidradenitis abscess (144 cm2). 2. Surgical preparation left posterior thigh with incision and drainage and excisional debridement hidradenitis abscess (96 cm2). Operative cultures from 09/29/20 positive for Streptococcus constellatus, Co rynebacterium striatum, Anaerobic cocci, and Prevotella species. Pathology of left perianal and left posterior thigh abscess showed pieces of skin with underlying tisse with acute and chronic inflammation, granulation tissue reaction and abscess formation. 10/01/20 - Laparoscopic sigmoid colostomy placed by Dr. Osorio due to the complicated perineal wound secondary to hidradenitis suppurativa status post excision. Culture from 02/14/22 positive for Corynebacterium striatum. Progress of Wound: Right groin wound is smaller and is now a cluster. Wound bed is pink. The tunneling at 6 o'clock is smaller Left ischial ulcer remains healed. Objective Data Objective Data Vital Signs: Vital Signs Temp Pulse Resp BP 97.2 F L 81 16 204/74 H 04/16/22 08:56 04/16/22 08:56 04/11/22 00:22 04/16/22 08:56 Charges/Coding Procedures Integumentary 111xxx-113xx: 37596 Ayla subq tissue 20 sq cm/< Debridement Note Debridement Note Wound debrided: groin, scrotum, perineal area Laterality: Right Wound Grade/Stage: Stage IV Type of Debridement: Excisional debridement Anesthesia Used: 5% Lidocaine Gel Depth: Down to and including healthy tissue and in the subcutaneous layer Percentage of wound debrided: 100 Instrument Used: 3mm curette Tissue Removed: Devitalized tissue and biofilm Severity: Fat Layer Exposed Amount of bleeding with debridement: Mild Bleeding Controlled with: Pressure and Compression and gauze Patient tolerated procedure: Patient tolerated procedure well Post-Debridement Measurements and Additional Note: Post-Debridement Measurements/Treatment - Nurse 1 - General Ulcer Assessment Start: 04/16/22 08:55 Freq: Status: Active Protocol: ROC Activity Type Activity Date Activity User E-sign Co-sign Detail Recorded Client Recorded Date Recorded By Document 04/16/22 08:56 JAN [id number] 04/16/22 08:58 AK 04/16/22 08:56 - Today's Visit Information Type of service Follow-up Visit (Physician/CEREAL SUPERVISOR ) Arrival Mode Ambulatory Patient Identification Verified (Name & Yes ) Patient Requires Transmission-Based No Precautions Safety Precautions NA Vital Signs Temperature (97.8 F-99.1 F) 97.2 F L Temperature Source Temporal Pulse Rate (60-100) 81 Pulse Location Monitor Blood Pressure (90/60-120/80) 204/74 H Blood Pressure Mean (mm Hg) 117 Source Monitor History Since Last Visit- (Skip if this is Patient's initial visit) Have you changed medications since your No last visit? Any new allergies or adverse reactions No Had a fall/change in ADL's that may No increase risk of falls Signs or symptoms of abuse and/or No neglect since last visit Have you been in the hospital since your No last visit? Has dressing in place as prescribed Yes Has compression in place as prescribed N/A Has offloadiing in place as prescribed N/A Experienced any changes in pain level or No management Left Footwear Regular Shoe Right Footwear Regular Shoe Pain Scale: 0-10 Numeric Is Patient Pain Free? Yes WC - Nurse 1 - General Ulcer Measurement Start: 04/16/22 08:55 Freq: Status: Active Protocol: Activity Type Activity Date Activity User E-sign Co-sign Detail Recorded Client Recorded Date Recorded By Document 04/16/22 08:56 AR [id number] 04/16/22 08:58 JAN 04/16/22 08:56 Wound Center Nurse 1 #5scrotum/R Groin Cluster -Combined with other wound No -Current Size (cm) - Length 5 -Current Size (cm) - Width 2 -Current Size (cm) - Depth 0.1 -Total Square Cm 10 -Date of Last Picture (Recall this 04/16/22 field) -Photo Taken Yes -Tunneling No -Undermining/Tunneling No -Circular Undermining No -Change in Wound Grade/Stage No -Exudate Amt Medium -Exudate Type Serosanguineous -Wound Margin Distinct, Outline Attached -Granulation Amt Large (67-100%) -Granulation Quality [place],Red -Slough/Fibrin No -Necrosis Amt None Present (0 %) -Structure Exposed N/A -Texture (Abimbola-wound Skin Appearance) Assessed, Scarring -Moisture ([place]imbola-wound Skin Appearance) No Abnormality, Assessed -Color (Abimbola-wound Skin Appearance) No Abnormality, Assessed -Temperature (Abimbola-wound Skin No Abnormality Appearance) (Pt Warm) -Tenderness on Palpation (Abimbola-wound No Skin Appearance) -Ulcer Cleansing Soap and Water -Foul Odor after Cleansing No -Anesthetic Used 4% Lidocaine Solution BEKA - Nurse 2 - General Ulcer CM Notes Start: 04/16/22 08:55 Freq: Status: Active Protocol: Activity Type Activity Date Activity User E-sign Co-sign Detail Recorded Client Recorded Date Recorded By Document 04/16/22 09:13 [id number] 04/16/22 09:14 LIZETTE 04/16/22 09:13 Wound Center Nurse 2 -Time 09:13 -Correct Patient Yes -Correct Side, Site, Position Yes -Correct Procedure Yes -Procedure Performed Yes -Type of Procedure Debridement -Clinical Debridement Subcutaneous -Tissue Removed Subcutaneous -Post Debridement (cm) - Length 6.2 -Post Debridement (cm) - Width 1.8 -Post Debridement (cm) - Depth 0.3 -Total Square (Post) (cm) 11.16 -Area of Debridement (cm) - Length 6.2 -Area of Debridement (cm) - Width 1.8 -Total Square (Area) (cm) 11.16 -Tunneling Yes -Tunneling Position (O'clock) 6 -Tunneling Distance (cm) 1.2 -Circular Undermining No -Wound/Ulcer Outcome Not Healed -Ulcer Cleansing Rinsed/ Irrigated with Saline -Foul Odor after Cleansing No -Bioengineered Tissue No -Bleeding Controlled with Pressure -Treatment Response Procedure Tolerated Well -Offloading No -Debridement - Subq, 1st 20sq cm Yes Pain Scale: 0-10 Numeric Is Patient Pain Free? Yes - Nurse 3 - General Ulcer D/C NN Start: 04/16/22 08:55 Freq: Status: Active Protocol: Activity Type Activity Date Activity User E-sign Co-sign Detail Recorded Client Recorded Date Recorded By Document 04/16/22 09:23 DL [id number] 04/16/22 09:23 DL 04/16/22 09:23 Wound Care Center Nurse 3 #5scrotum/R Groin Cluster -Ulcer Cleansing Rinsed/ Irrigated with Saline -Foul Odor after Cleansing No -Other Dressing Aquacel AG -Primary Dressing Covered/Secured with Dry Gauze -Other Covering [place] Treatment Response Procedure Tolerated Well Pain Scale: 0-10 Numeric Is Patient Pain Free? Yes WC - Visit Discharge Discharge Condition Stable Ambulatory Status Ambulatory Transportation Private Auto Assessment/Plan Assessment/Plan (1) Ulcer of right groin with fat layer exposed: CODE(S): L98.492 - Non-pressure chronic ulcer of skin of other sites with fat layer exposed (2) Ulcer of scrotum: CODE(S): N50.89 - Other specified disorders of the male genital organs (3) Ulcer of perineum with fat layer exposed: CODE(S): L98.492 - Non-pressure chronic ulcer of skin of other sites with fat layer exposed (4) Suppurative hidradenitis: CODE(S): L73.2 - Hidradenitis suppurativa (5) Smoker: CODE(S): F17.200 - Nicotine dependence, unspecified, uncomplicated (6) Hypertension: CODE(S): I10 - Essential (primary) hypertension QUALIFIERS: Hypertension type: primary hypertension Qualified Code(s): I10 - Essential (primary) hypertension (7) Diabetes type 2, uncontrolled: CODE(S): E11.65 - Type 2 diabetes mellitus with hyperglycemia (8) Hemoglobin A1c greater than 8.0 percent: CODE(S): R73.09 - Other abnormal glucose (9) Post-operative pain: CODE(S): G89.18 - Other acute postprocedural pain PLAN: Plan Patient was evaluated at the wound healing center. Wound care - Right groin is moistened Aquacel-Ag covered by gauze/ABD/super absorber daily and prn to right groin. Make sure to pack into the base of the tunnel around 6 o'clock. Left ischial ulcer remains healed, but is dry flakey, so make sure to massage with lotion 1-2 times daily. Operative wound cultures from 11/23/21 positive for Streptococcus constellatus and Corynebacterium striatum. He completed Cefdinir 300mg BID. Creatinine repeat on 11/27/21, which was down to 1.62 from 1.73 on 11/25/21. Also, repeat K+ 4.0. Patient is on his Plavix. Left ischial ulcer wound culture obtained 02/14/21 which was positive for Corynebacterium striatum which is not typically treated with antibiotics. Encouraged increase protein intake and increase Vitamin C intake. Will need supplemental protein to help heal this wound. Encouraged patient to stop smoking as it may have deleterious effects on wound healing. Patient sees dermatology who is managing the medical portion of his hidradenitis. Follow up two weeks. Call or come in sooner if develop any questions or concerns.
[2022-04-30 08:45] VITALS: BP 210/84; PULSE 74; RESP 18; TEMP 36.3
--- NOTE | 2022-04-30 12:22 | PCM.WC.PN ---
History of Present Illness Date of Service: 04/30/22 Chief Complaint: Excision of hidradenitis of right inguinal, scrotal and perineal area History of Wound: 56 year old male who is known to me. He has a history significant for hidradenitis, DM type II, HTN, CAD, arterial insufficiency, and smoker. He had surgery on 11/23/21 for 1. Surgical preparation right inguinal area with excision suppurative hidradenitis abscess (112 cm2, and 192 cm2 total). 2. Surgical preparation right scrotum with incision and drainage and excision suppurative hidradenitis abscess (50 cm2, and 192 cm2 total). 3. Surgical preparation right perineal area with excision suppurative hidradenitis abscess (30 cm2, and 192 cm2 total). Operative wound cultures from 11/23/21 positive for Streptococcus constellatus and Corynebacterium striatum. He was started on Cefdinir 300mg BID. Creatinine repeat today, 11/27/21, down to 1.62 from 1.73 on 11/25/21. Wound care - Dakin's 0.25% moistened gauze covered by ABD/super absorber daily and prn to right groin. Left ischial ulcer aquacel-ag covered with gauze daily. Today he denies fevers, chills, nausea and vomiting. He states that he has a good appetite. Other history: Surgery 03/22/20 - 1. Surgical preparation left inguinal area with excision hidradenitis (315 cm2 total wound). 2. Surgical preparation perineal area with excision hidradenitis (315 cm2 total wound). 3. Surgical preparation base left scrotum with incision and drainage and excision hidradenitis (315 cm2 total wound). Operative culture from 03/22/20 - Enterococcus faecalis and Streptococcus group F, Anaerobic cocci and Prevotella bivia. He was treated with Linezolid and Flagyl and has completed them. He saw Dr. Kasey live had an angioplasty of some of his vessels in his legs. Patient admitted to the hospital for increased redness and swelling of his left groin and buttocks on 09/27/20. Patient was started on IV Vancomycin, Levaquin and Flagyl by ID. Surgery 09/29/20 - 1. Surgical preparation left perianal area with excision hidradenitis abscess (144 cm2). 2. Surgical preparation left posterior thigh with incision and drainage and excisional debridement hidradenitis abscess (96 cm2). Operative cultures from 09/29/20 positive for Streptococcus constellatus, Corynebacterium striatum, Anaerobic cocci, and Prevotella species. Pathology of left perianal and left posterior thigh abscess showed pieces of skin with underlying tisse with acute and chronic inflammation, granulation tissue reaction and abscess formation. 10/01/20 - Laparoscopic sigmoid colostomy placed by Dr. Osorio due to the complicated perineal wound secondary to hidradenitis suppurativa status post excision. Culture from 02/14/22 positive for Corynebacterium striatum. Progress of Wound: Right groin wound is smaller and is now a cluster. Wound bed is pink. The tunneling at 6 o'clock is the same depth this week. Left ischial ulcer remains healed. Objective Data Objective Data Vital Signs: Vital Signs Temp Pulse Resp BP O2 Del Method 97.3 F L 74 18 210/84 H Room Air 04/30/22 08:45 04/30/22 08:45 04/30/22 08:45 04/30/22 08:45 04/30/22 08:45 Oxygen Delivery Method Room Air Charges/Coding Procedures Integumentary 111xxx-113xx: [id number] Ayla subq tissue 20 sq cm/< Debridement Note Debridement Note Wound debrided: groin, scrotum, perineal area Laterality: Right Wound Grade/Stage: Stage IV Type of Debridement: Excisional debridement Anesthesia Used: 5% Lidocaine Gel Depth: Down to and including healthy tissue and in the subcutaneous layer Percentage of wound debrided: 100 Instrument Used: 3mm curette Tissue Removed: Devitalized tissue and biofilm Severity: Fat Layer Exposed Amount of bleeding with debridement: Mild Bleeding Controlled with: Pressure and Compression and gauze Patient tolerated procedure: Patient tolerated procedure well Post-Debridement Measurements and Additional Note: Post-Debridement Measurements/Treatment WC - Nurse 1 - General Ulcer Assessment Start: 04/16/22 08:55 Freq: Status: Active Protocol: ROC Activity Type Activity Date Activity User E-sign Co-sign Detail Recorded Client Recorded Date Recorded By Document 04/16/22 08:56 TN [id number] 04/16/22 08:58 AK Document 04/30/22 08:45 BMF [id number] 04/30/22 08:58 BM 04/16/22 04/30/22 08:56 08:45 - Today's Visit Information Type of service Follow-up Visit Follow-up Visit (Physician/FLOOR TILING PROFESSIONAL (Physician/FLOOR TILING PROFESSIONAL ) ) Arrival Mode Ambulatory Ambulatory Transfer Assistance None Patient Identification Verified (Name & Yes Yes ) Patient Requires Transmission-Based No No Precautions Safety Precautions NA Vital Signs Temperature (97.8 F-99.1 F) 97.2 F L 97.3 F L Temperature Source Temporal Temporal Pulse Rate (60-100) 81 74 Pulse Location Monitor Monitor Respiratory Rate (12-18) 18 Respiratory rate source Observation Oxygen Delivery Method Room Air Blood Pressure (90/60-120/80) 204/74 H 210/84 H Blood Pressure Mean (mm Hg) 117 126 Source Monitor Manual Position Sitting Blood Pressure Location Right Arm Comment rechk bp mult x 's d/t being high. 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 Any new allergies or adverse reactions No No Had a fall/change in ADL's that may No No increase risk of falls Signs or symptoms of abuse and/or No No neglect since last visit Have you been in the hospital since your No No last visit? Has dressing in place as prescribed Yes Yes Has compression in place as prescribed N/A N/A Has offloadiing in place as prescribed N/A N/A Experienced any changes in pain level or No No management Left Footwear Regular Shoe Regular Shoe Right Footwear Regular Shoe Regular Shoe Pain Scale: 0-10 Numeric Is Patient Pain Free? Yes Yes - Nurse 1 - General Ulcer Measurement Start: 04/16/22 08:55 Freq: Status: Active Protocol: Activity Type Activity Date Activity User E-sign Co-sign Detail Recorded Client Recorded Date Recorded By Document 04/16/22 08:56 AK [id number] 04/16/22 08:58 AK Document 04/30/22 08:45 BM [id number] 04/30/22 08:58 BMF 04/16/22 04/30/22 08:56 08:45 Wound Center Nurse 1 #5scrotum/R Groin Cluster -Combined with other wound No No -Current Size (cm) - Length 5 4.2 -Current Size (cm) - Width 2 1.4 -Current Size (cm) - Depth 0.1 0.1 -Total Square Cm 10 5.88 -Date of Last Picture (Recall this 04/16/22 04/30/22 field) -Photo Taken Yes Yes -Epithelialization Small 1-33% -Tunneling No No -Undermining/Tunneling No No -Circular Undermining No No -Change in Wound Grade/Stage No -Exudate Amt Medium Medium -Exudate Type Serosanguineous Serosanguineous -Wound Margin Distinct, Flat & Intact Outline Attached -Granulation Amt Large (67-100%) Large (67-100%) -Granulation Quality [place],Red Red -Slough/Fibrin No No -Necrosis Amt None Present (0 None Present (0 %) %) -Structure Exposed N/A -Texture (Abimbola-wound Skin Appearance) Assessed, Assessed, Scarring Scarring -Moisture (Abimbola-wound Skin Appearance) No Abnormality, Assessed Assessed -Color (Abimbola-wound Skin Appearance) No Abnormality, Assessed Assessed -Temperature (Abimbola-wound Skin No Abnormality No Abnormality Appearance) (Pt Warm) (Pt Warm) -Tenderness on Palpation (Abimbola-wound No No Skin Appearance) -Ulcer Cleansing Soap and Water Soap and Water -Foul Odor after Cleansing No No -Anesthetic Used 4% Lidocaine 5% Lidocaine Solution Gel WC - Nurse 2 - General Ulcer CM Notes Start: 04/16/22 08:55 Freq: Status: Active Protocol: Activity Type Activity Date Activity User E-sign Co-sign Detail Recorded Client Recorded Date Recorded By Document 04/16/22 09:13 [id number] 04/16/22 09:14 Document 04/30/22 09:26 [id number] 04/30/22 09:29 04/16/22 04/30/22 09:13 09:26 Wound Center Nurse 2 #5scrotum/R Groin Cluster -Time 09:13 09:26 -Correct Patient Yes Yes -Correct Side, Site, Position Yes Yes -Correct Procedure Yes Yes -Procedure Performed Yes Yes -Type of Procedure Debridement Debridement -Clinical Debridement Subcutaneous Subcutaneous -Tissue Removed Subcutaneous Subcutaneous -Post Debridement (cm) - Length 6.2 5.0 -Post Debridement (cm) - Width 1.8 2.0 -Post Debridement (cm) - Depth 0.3 0.1 -Total Square (Post) (cm) 11.16 10.00 -Area of Debridement (cm) - Length 6.2 5.0 -Area of Debridement (cm) - Width 1.8 2.0 -Total Square (Area) (cm) 11.16 10.00 -Tunneling Yes Yes -Tunneling Position (O'clock) 6 6 -Tunneling Distance (cm) 1.2 1.2 -Undermining/Tunneling No -Circular Undermining No No -Wound/Ulcer Outcome Not Healed Not Healed -Ulcer Cleansing Rinsed/ Rinsed/ Irrigated with Irrigated with Saline Saline -Foul Odor after Cleansing No No -Bioengineered Tissue No No -Bleeding Controlled with Pressure Pressure -Treatment Response Procedure Procedure Tolerated Well Tolerated Well -Offloading No No -Debridement - Subq, 1st 20sq cm Yes Yes Pain Scale: 0-10 Numeric Is Patient Pain Free? Yes Yes - Nurse 3 - General Ulcer D/C NN Start: 04/16/22 08:55 Freq: Status: Active Protocol: Activity Type Activity Date Activity User E-sign Co-sign Detail Recorded Client Recorded Date Recorded By Document 04/16/22 09:23 [id number] 04/16/22 09:23 DL Document 04/30/22 11:44 AK [id number] 04/30/22 11:45 AK 04/16/22 04/30/22 09:23 11:44 Wound Care Center Nurse 3 #5scrotum/R Groin Cluster -Ulcer Cleansing Rinsed/ Rinsed/ Irrigated with Irrigated with Saline Saline -Foul Odor after Cleansing No No -Negative Pressure Wound Therapy N/A -Other Dressing Aquacel AG all own supplies and does dressing -Primary Dressing Covered/Secured with Dry Gauze -Other Covering [place] Treatment Response Procedure Tolerated Well Pain Scale: 0-10 Numeric Is Patient Pain Free? Yes Yes - Visit Discharge Discharge Condition Stable Stable Ambulatory Status Ambulatory Ambulatory Transportation Private Auto Private Auto Medication Reconcilliation completed & Yes provided to patient/care provider Clinical Summary of Care Provided Yes Assessment/Plan Assessment/Plan (1) Ulcer of right groin with fat layer exposed: CODE(S): L98.492 - Non-pressure chronic ulcer of skin of other sites with fat layer exposed (2) Ulcer of scrotum: CODE(S): N50.89 - Other specified disorders of the male genital organs (3) Ulcer of perineum with fat layer exposed: CODE(S): L98.492 - Non-pressure chronic ulcer of skin of other sites with fat layer exposed (4) Suppurative hidradenitis: CODE(S): L73.2 - Hidradenitis suppurativa (5) Smoker: CODE(S): F17.200 - Nicotine dependence, unspecified, uncomplicated (6) Hypertension: CODE(S): I10 - Essential (primary) hypertension QUALIFIERS: Hypertension type: primary hypertension Qualified Code(s): I10 - Essential (primary) hypertension (7) Diabetes type 2, uncontrolled: CODE(S): E11.65 - Type 2 diabetes mellitus with hyperglycemia (8) Hemoglobin A1c greater than 8.0 percent: CODE(S): R73.09 - Other abnormal glucose (9) Post-operative pain: CODE(S): G89.18 - Other acute postprocedural pain PLAN: Plan Patient was evaluated at the wound healing center. Wound care - Right groin is moistened Aquacel-Ag covered by gauze/ABD daily and prn to right groin. Make sure to pack into the base of the tunnel around 6 o'clock. Left ischial ulcer remains healed, continue to massage with lotion 1-2 times daily to help soften and moisturize the scarring. I have some concerns that this tunnel is no improving. I will discuss with Dr. Smith to see if he believes Ranulfo needs further evaluation for possible surgical intervention. Operative wound cultures from 11/23/21 positive for Streptococcus constellatus and Corynebacterium striatum. He completed Cefdinir. Creatinine repeat on 11/27/21, which was down to 1.62 from 1.73 on 11/25/21. Also, repeat K+ 4.0. Patient is on his Plavix. Left ischial ulcer wound culture obtained 02/14/21 which was positive for Corynebacterium striatum which is not typically treated with antibiotics. Encouraged increase protein intake and increase Vitamin C intake. Will need supplemental protein to help heal this wound. Encouraged patient to stop smoking as it may have deleterious effects on wound healing. Patient sees dermatology who is managing the medical portion of his hidradenitis. Follow up two weeks. Call or come in sooner if develop any questions or concerns.
== END 2022-05-11 23:59 | disposition home or self-care (01) ==
LOC: WC 09:00
PROVIDERS: PCP Nurse Practitioner; Referring Provider Nurse Practitioner Family; Visit Provider Nurse Practitioner Family
DX: L73.2 Hidradenitis suppurativa (principal); E11.622 Type 2 diabetes mellitus with other skin ulcer; L98.492 Non-pressure chronic ulcer of skin of other sites with fat layer exposed; E11.59 Type 2 diabetes mellitus with other circulatory complications; I25.10 Atherosclerotic heart disease of native coronary artery without angina pectoris; I10 Essential (primary) hypertension; F17.200 Nicotine dependence, unspecified, uncomplicated
CPT/HCPCS: 11042

== ENCOUNTER 2022-05-06 20:28 | Emergency (ER) | payer BC, SELFPAY ==
[2022-05-06 20:31] VITALS: BP 236/93; PULSE 79; RESP 16; TEMP 36.8; O2SAT 97; BMI 21.6
--- NOTE | 2022-05-06 21:30 | EX.ED.DYSGE1 ---
HPI History of Present Illness Chief Complaint: Wound Informant: patient Narrative Narrative: Patient was using a table saw couple hours prior to arrival, piece of wood snapped off of it flying back toward him and hit him in the diverting colostomy that he has had for the last couple years. He had some bleeding into the colostomy bag. It is sore but he has no pain or injury elsewhere. He is on clopidogrel because of a history of PAD. [facility] Medical History Abscess of buttock, left Abscess of left thigh Abscess of right groin Abscess of scrotal wall Abscess, perineum Acute blood loss anemia Alcohol use Anemia Anemia of chronic disease Back pain Back pain due to injury Colostomy in place Complete edentulism, class III Complicated open wound of left thigh COPD (chronic obstructive pulmonary disease) Coronary artery disease Diabetes Diabetes mellitus type 2, uncontrolled, with complications Diabetes type 2, uncontrolled Dietary restriction Gastric reflux Hemoglobin A1c greater than 8.0 percent Hidradenitis suppurativa of anus History of edema History of pain when walking History of stress test History of ulceration Hydradenitis Hydradenitis Hyperlipidemia associated with type 2 diabetes mellitus Hypertension Lupus (systemic lupus erythematosus) Malnutrition Non-healing open wound of right groin Open wound of buttock with complication Open wound of left buttock with complication Open wound of scrotum Open wound of scrotum with complication Pain in the groin Shingles Shortness of breath on exertion Skin ulcer of scrotum Smoker Suppurative hidradenitis Ulcer of left groin with fat layer exposed Ulcer of perineum with fat layer exposed Home Medications tramadol 50 mg tablet 100 mg PO TID PRN pain (scale score 7-10) 30 days #180 tabs 03/28/21 [Rx Last Taken Unknown] ondansetron HCl 8 mg tablet 8 mg PO Q8H PRN nausea and vomiting #30 tabs 06/29/21 [Rx Last Taken Unknown] hydroxychloroquine 100 mg tablet 100 mg PO BID lupus 10/05/21 [History Last Taken 11/22/21 16:00] amlodipine 10 mg tablet 10 mg PO DAILY BP #30 tabs 11/06/21 [Rx Last Taken Unknown] lisinopril 40 mg tablet 40 mg PO DAILY Blood pressure #30 tabs 11/06/21 [Rx Last Taken Unknown] docusate sodium 100 mg capsule 100 mg PO BID PRN Constipation 11/17/21 [History Last Taken Unknown] empagliflozin 25 mg-linagliptin 5 mg-metformin ER 1,000 mg tablet,24hr (Trijardy XR) 1 tab PO DAILY diabetes 11/17/21 [History Last Taken Unknown] meloxicam 15 mg tablet 15 mg PO DAILY inflamation 11/17/21 [History Last Taken Unknown] pantoprazole 40 mg tablet,delayed release 40 mg PO DAILY GERD 11/23/21 [History Last Taken Unknown] sucralfate 1 gram tablet (Carafate) 1 g PO QACHS GERD 11/23/21 [History Last Taken Unknown] clonidine HCl 0.1 mg tablet 0.1 mg PO BID #60 tabs 11/28/21 [Rx Last Taken Unknown] minocycline 100 mg capsule 100 mg PO DAILY 11/28/21 [History Last Taken Unknown] oxycodone-acetaminophen 5 mg-325 mg tablet (Percocet) 1 tab PO BID PRN pain (scale score 7-10) 7 days #14 tabs 01/09/22 [Rx Last Taken Unknown] oxycodone-acetaminophen 5 mg-325 mg tablet (Percocet) 1 tab PO BID PRN pain (scale score 7-10) 7 days #14 tabs 01/15/22 [Rx Last Taken Unknown] oxycodone-acetaminophen 5 mg-325 mg tablet (Percocet) 1 tab PO DAILY PRN PRN pain (scale score 7-10) 7 days #7 tabs 01/22/22 [Rx Last Taken Unknown] clopidogrel 75 mg tablet 75 mg PO DAILY blood thinner #30 tabs 01/25/22 [Rx Last Taken Unknown] gabapentin 300 mg capsule 600 mg PO TID 30 days #180 caps 02/23/22 [Rx Last Taken Unknown] guselkumab 100 mg/mL subcutaneous syringe (Tremfya) 100 mg subcut Q4W 04/23/22 [History Last Taken Unknown] Allergy/AdvReac Type Severity Reaction Status Date / Time Penicillins Allergy Unknown Verified 05/06/22 20:34 Sulfa (Sulfonamide Allergy Unknown Verified 05/06/22 20:34 Antibiotics) bupropion [From Wellbutrin] AdvReac Severe change in Verified 05/06/22 20:34 personality ,meanness and smoked more Family History Aunt Lung disease lung cancer Father Heart disease Hypertension Family history of high cholesterol Diabetes Mother Diabetes Daughter Epilepsy Surgical History History of coronary artery stent placement History of incision and drainage History of removal of cyst History of tonsillectomy and adenoidectomy Hx of hernia repair Stented coronary artery Social History household members: spouse Smoking Status: Current every day smoker tobacco type: cigarettes counseling given: provider counseling alcohol intake: never substance use type: does not use additional social history: DOES NOT TAKE ASPIRIN DOES NOT TAKE IBUPROFEN ROS ROS ED Constitutional Constitutional ED: Denies chills or fever(s) Cardiovascular Cardiovascular: Denies chest pain, lightheadedness or palpitations Respiratory/Chest Respiratory/Chest: Denies cough or dyspnea Gastrointestinal Gastrointestinal: Reports as per HPI and abdominal pain; Denies nausea or vomiting Genitourinary Genitourinary ED: Denies dysuria or hematuria Neurologic Neurologic: Denies headache(s), paresthesias or weakness EXAM Physical Exam Const Vital Signs: 05/06/22 20:31 Temperature 98.2 F Temperature Source Temporal Pulse Rate 79 Respiratory Rate 16 Blood Pressure 236/93 H Blood Pressure Mean 140 Pulse Ox 97 Oxygen Delivery Method Room Air Positive well nourished and well developed Constitutional Narrative: Well-appearing, conversive in full sentences General Appearance ED: well developed and NAD Chest Wall inspection of chest normal and palpation of chest normal Resp normal respiratory effort GI GI Narrative: Patient's colostomy bag was taken off of the disc. His abdomen is benign. He has some prolapse of the stoma that is chronic, and the patient has a mucosal tear with blood clots present on the 10:00 aspect of the stoma near its base. There is no bleeding from the inside of the stoma proper. There is no active bleeding now. The injured area is a little sore. The abdominal wall itself is not injured. Neuro oriented x3, CN's II-XII intact bilaterally and no sensory deficits noted Sensorium / Orientation: Negative for orientation impaired Motor Exam: strength 5/5 throughout Psych mental status grossly normal Skin Skin Narrative: See above. No skin wounds or other injuries. MDM MDM MDM Narrative Medical decision making narrative: This patient appears to have a partial-thickness tear to the mucosa of the colostomy that is prolapsed, the injury appears to be about 3 cm from the tip of the stoma and there is no bleeding from it internally, suggesting that the tear is not full-thickness. This does not appear repairable and it is small. I reassured him, supportive care advised, I had nursing placed a piece of Surgifoam against it to prevent recurrent significant bleeding since he had about 50-100 cc of blood in his colostomy bag, and he is on clopidogrel, in addition to bacitracin and gauze, advised the patient to change the gauze as needed and to follow-up with the surgeon for any issues. He is comfortable with that plan. He did not lose a lot of blood and I do not think he needs to have blood counts checked right now. His pressure is high he was advised to follow-up after the weekend to have his blood pressure rechecked. He is asymptomatic from it. Discharge Plan Triage Chief Complaint: Wound ED Provider: Mitch Thrasher Dx/Rx/DC Orders Clinical Impression: Colostomy prolapse, Bleeding from colostomy stoma Instructions: ED Skin Avulsion Prescriptions: No Action tramadol 50 mg tablet 100 mg PO TID PRN (Reason: pain (scale score 7-10)) 30 Days Qty: 180 5RF ondansetron HCl 8 mg tablet 8 mg PO Q8H PRN (Reason: nausea and vomiting) Qty: 30 12RF hydroxychloroquine 100 mg tablet 100 mg PO BID amlodipine 10 mg tablet 10 mg PO DAILY Qty: 30 12RF lisinopril 40 mg tablet 40 mg PO DAILY Qty: 30 12RF minocycline 100 mg capsule 100 mg PO DAILY clonidine HCl 0.1 mg tablet 0.1 mg PO BID Qty: 60 12RF gabapentin 300 mg capsule 600 mg PO TID 30 Days Qty: 180 3RF Tremfya 100 mg/mL syringe 100 mg subcut Q4W meloxicam [Mobic] 15 mg Tablet 15 mg PO DAILY Trijardy XR 25-5-1,000 mg Tablet, Ir - Er, Biphasic 24hr 1 tab PO DAILY docusate sodium 100 mg capsule 100 mg PO BID PRN (Reason: Constipation) sucralfate [Carafate] 1 gram tablet 1 g PO QACHS pantoprazole 40 mg tablet,delayed release (DR/EC) 40 mg PO DAILY oxycodone-acetaminophen [Percocet] 5-325 mg tablet 1 tab PO BID PRN (Reason: pain (scale score 7-10)) 7 Days Qty: 14 0RF oxycodone-acetaminophen [Percocet] 5-325 mg tablet 1 tab PO BID PRN (Reason: pain (scale score 7-10)) 7 Days Qty: 14 0RF oxycodone-acetaminophen [Percocet] 5-325 mg tablet 1 tab PO DAILY PRN PRN (Reason: pain (scale score 7-10)) 7 Days Qty: 7 0RF clopidogrel 75 mg tablet 75 mg PO DAILY Qty: 30 12RF Primary Care Provider: Adina Bhat NP Referrals: Barney Osorio MD [Med Staff - Active Staff] - As Needed Adina Bhat NP, [facility] [employer] [Primary Care Provider] - Activity Restrictions/Additional Instructions: May treat this like a skin tear: The foam that we placed on there does not need to come off it can dissolve gradually. Will help prevent recurrent significant bleeding. You may replace the gauze as needed, at least once per day, with bacitracin ointment. Disposition Disposition: Home, Self Care
[2022-05-06 21:35] VITALS: BP 215/74; PULSE 67; RESP 18; O2SAT 97
== END 2022-05-06 21:50 | disposition home or self-care (01) ==
PROVIDERS: Emergency Provider Emergency Medicine; PCP Nurse Practitioner; Visit Provider Emergency Medicine
DX: K94.09 Other complications of colostomy (principal); J44.9 Chronic obstructive pulmonary disease, unspecified; I25.10 Atherosclerotic heart disease of native coronary artery without angina pectoris; F17.210 Nicotine dependence, cigarettes, uncomplicated; Z95.5 Presence of coronary angioplasty implant and graft
CPT/HCPCS: 99282

== ENCOUNTER → 2022-05-24 | Outpatient (CLI) | payer BC, SELFPAY ==
--- NOTE | 2022-05-24 08:58 | AAVD_ITS ---
Reason For Study: Atherosclerosis Aorta Measurements Aorta Doppler Measurements Proximal aorta measures2.19 x 2.18cm. in cross- Peak systolic flow velocities within the proximal sectional axis. aorta measure 101.3 cm/sec. Proximal aorta measures2.16cm. in longitudinal Peak systolic flow velocities within the mid aorta axis. measure 74.1 cm/sec. Mid aorta measures1.51 x 1.51cm. in cross- Peak systolic flow velocities within the distal sectional axis. aorta measure 95.9 cm/sec. Mid aorta measures1.53cm. in longitudinal axis. Distal aorta measures1.10 x 1.09cm. in cross- sectional axis. Distal aorta measures1.09cm. in longitudinal axis. Left Iliac Artery Left iliac artery measures 0.70 x 0.66 cm. in the cross-sectional axis. Left iliac artery measures 0.76 cm. in the longitudinal axis. Peak systolic velocity in the left iliac artery measures 93.1 cm/sec. Right Iliac Artery Right iliac artery measures 0.71 x 0.71 cm. in the cross-sectional axis. Right iliac artery measures 0.72 cm. in the longitudinal axis. Peak systolic velocity in the right iliac artery measures 270.4 cm/sec. Procedure Aorta IVC Iliac vasculature or bypass grafts [id number]. Exam performed in department. VL/Abd Aortic/IVC Duplex scan Interpretation Summary Right CHERI moderate stenosis. Otherwise no stenosis or aneurysm seen. Ordering Physician: Juliano Parks Referring Physician: Adina Bhat Performed By: Valeria Kinney RVT
--- NOTE | 2022-05-24 08:59 | ART_ITS ---
Reason For Study: Atherosclerosis Procedure A bilateral lower extremity continuous wave Doppler with analog waveform analysis and ankle brachial indexes. Left Segmental Pressures Left brachial= 189mmHg. Left posterior tibial artery = 169mmHg. Left dorsalis pedis artery = 163mmHg. Left digit = 127 mmHg. The left dorsalis pedis waveforms are monophasic. The left posterior tibial artery waveforms are biphasic. Right Segmental Pressures Right brachial= 188mmHg. Right posterior tibial artery = 99mmHg. Right dorsalis pedis artery = 85mmHg. Right digit = 77 mmHg. The right dorsalis pedis waveforms are monophasic. The right posterior tibial artery waveforms are biphasic. Indices The right ankle brachial index by the dorsalis pedis is 0.45. The right ankle brachial index by the posterior tibial artery is 0.52. The right digital-brachial index is 0.41. The left ankle brachial index by the dorsalis pedis is 0.86. The left ankle brachial index by the posterior tibial artery is 0.89. The left digital-brachial index is 0.67. VL/Ankle Brachial Index Interpretation Summary Right biphasic and SALMA 0.52. LEft triphasic flow and SALMA 0.89. DBI 0.41/0.67. Ordering Physician: Julinao Parks Referring Physician: Adina Bhat Performed By: Valeria Kinney RVT
== END | disposition home or self-care (01) ==
PROVIDERS: PCP Nurse Practitioner; Referring Provider Surgery Vascular Surgery; Visit Provider Surgery Vascular Surgery
DX: Z48.812 Encounter for surgical aftercare following surgery on the circulatory system (principal); I70.213 Atherosclerosis of native arteries of extremities with intermittent claudication, bilateral legs; I77.1 Stricture of artery; F17.290 Nicotine dependence, other tobacco product, uncomplicated
CPT/HCPCS: 93922; 93978

== ENCOUNTER 2022-05-28 08:45 | Outpatient (RCR) | payer BC, SELFPAY ==
[2022-05-12 01:39] VITALS: BP 210/84; PULSE 74; RESP 18; TEMP 36.3
[2022-05-14 08:55] VITALS: BP 203/69; PULSE 75; RESP 20; TEMP 36.3
--- NOTE | 2022-05-14 09:35 | PCM.WC.PN ---
History of Present Illness Date of Service: 05/14/22 Chief Complaint: Excision of hidradenitis of right inguinal, scrotal and perineal area History of Wound: 56 year old male who is known to me. He has a history significant for hidradenitis, DM type II, HTN, CAD, arterial insufficiency, and smoker. He had surgery on 11/23/21 for 1. Surgical preparation right inguinal area with excision suppurative hidradenitis abscess (112 cm2, and 192 cm2 total). 2. Surgical preparation right scrotum with incision and drainage and excision suppurative hidradenitis abscess (50 cm2, and 192 cm2 total). 3. Surgical preparation right perineal area with excision suppurative hidradenitis abscess (30 cm2, and 192 cm2 total). Operative wound cultures from 11/23/21 positive for Streptococcus constellatus and Corynebacterium striatum. He was started on Cefdinir 300mg BID. Creatinine repeat today, 11/27/21, down to 1.62 from 1.73 on 11/25/21. Wound care - Dakin's 0.25% moistened gauze covered by ABD/super absorber daily and prn to right groin. Left ischial ulcer aquacel-ag covered with gauze daily. Today he denies fevers, chills, nausea and vomiting. He states that he has a good appetite. Other history: Surgery 03/22/20 - 1. Surgical preparation left inguinal area with excision hidradenitis (315 cm2 total wound). 2. Surgical preparation perineal area with excision hidradenitis (315 cm2 total wound). 3. Surgical preparation base left scrotum with incision and drainage and excision hidradenitis (315 cm2 total wound). Operative culture from 03/22/20 - Enterococcus faecalis and Streptococcus group F, Anaerobic cocci and Prevotella bivia. He was treated with Linezolid and Flagyl and has completed them. He saw Dr. Kasey live had an angioplasty of some of his vessels in his legs. Patient admitted to the hospital for increased redness and swelling of his left groin and buttocks on 09/27/20. Patient was started on IV Vancomycin, Levaquin and Flagyl by ID. Surgery 09/29/20 - 1. Surgical preparation left perianal area with excision hidradenitis abscess (144 cm2). 2. Surgical preparation left posterior thigh with incision and drainage and excisional debridement hidradenitis abscess (96 cm2). Operative cultures from 09/29/20 positive for Streptococcus constellatus, Corynebacterium striatum, Anaerobic cocci, and Prevotella species. Pathology of left perianal and left posterior thigh abscess showed pieces of skin with underlying tisse with acute and chronic inflammation, granulation tissue reaction and abscess formation. 10/01/20 - Laparoscopic sigmoid colostomy placed by Dr. Osorio due to the complicated perineal wound secondary to hidradenitis suppurativa status post excision. Culture from 02/14/22 positive for Corynebacterium striatum. Progress of Wound: Right groin wound is smaller and is now a cluster. Wound bed is pink. The tunneling at 6 o'clock with no change in depth. Objective Data Objective Data Vital Signs: Vital Signs Temp Pulse Resp BP 97.4 F L 75 20 H 203/69 H 05/14/22 08:55 05/14/22 08:55 05/14/22 08:55 05/14/22 08:55 Charges/Coding Procedures Integumentary [id number]: [id number] Ayla subq tissue 20 sq cm/< Debridement Note Debridement Note Wound debrided: groin, scrotum, perineal area Laterality: Right Wound Grade/Stage: Stage IV Type of Debridement: Excisional debridement Anesthesia Used: 5% Lidocaine Gel Depth: Down to and including healthy tissue and in the subcutaneous layer Percentage of wound debrided: 100 Instrument Used: 3mm curette Tissue Removed: Devitalized tissue and biofilm Severity: Fat Layer Exposed Amount of bleeding with debridement: Mild Bleeding Controlled with: Pressure and Compression and gauze Patient tolerated procedure: Patient tolerated procedure well Post-Debridement Measurements and Additional Note: Post-Debridement Measurements/Treatment BEKA - Nurse 1 - General Ulcer Assessment Start: 05/14/22 08:54 Freq: Status: Active Protocol: ROC Activity Type Activity Date Activity User E-sign Co-sign Detail Recorded Client Recorded Date Recorded By Document 05/14/22 08:55 PL [id number] 05/14/22 09:01 PL 05/14/22 08:55 BEKA - Today's Visit Information Type of service Follow-up Visit (Physician/ECHO VASCULAR TECH ) Transfer Assistance None Patient Identification Verified (Name & Yes ) Patient Requires Transmission-Based No Precautions Safety Precautions NA Vital Signs Temperature (97.8 F-99.1 F) 97.4 F L Temperature Source Temporal Pulse Rate (60-100) 75 Respiratory Rate (12-18) 20 H Blood Pressure (90/60-120/80) 203/69 H Blood Pressure Mean (mm Hg) 113 History Since Last Visit- (Skip if this is Patient's initial visit) Have you changed medications since your No last visit? Any new allergies or adverse reactions No Had a fall/change in ADL's that may No increase risk of falls Signs or symptoms of abuse and/or No neglect since last visit Have you been in the hospital since your No last visit? Has dressing in place as prescribed Yes Has compression in place as prescribed Yes Has offloadiing in place as prescribed Yes Experienced any changes in pain level or No management Pain Scale: 0-10 Numeric Is Patient Pain Free? Yes WC - Nurse 1 - General Ulcer Measurement Start: 05/14/22 08:54 Freq: Status: Active Protocol: Activity Type Activity Date Activity User E-sign Co-sign Detail Recorded Client Recorded Date Recorded By Document 05/14/22 08:55 PL [id number] 05/14/22 09:01 PL 05/14/22 08:55 Wound Center Nurse 1 #5scrotum/R Groin Cluster -Combined with other wound No -Current Size (cm) - Length 3.2 -Current Size (cm) - Width 1.2 -Current Size (cm) - Depth 0.2 -Total Square Cm 3.84 -Date of Last Picture (Recall this 05/14/22 field) -Photo Taken Yes -Epithelialization Large 67-100% -Tunneling No -Undermining/Tunneling No -Circular Undermining No -Classification - Thickness Full Thickness without Exposed Support Structure -Exudate Amt Medium -Exudate Type Serosanguineous -Granulation Amt Medium (34-66%) -Granulation Quality Pale,[place] -Slough/Fibrin Yes -Necrosis Amt Medium (34-66%) -Necrotic Tissue Type Adherent Slough -Texture ([place]-wound Skin Appearance) No Abnormality -Moisture ([place]-wound Skin Appearance) No Abnormality -Color ([place]-wound Skin Appearance) No Abnormality -Temperature ([place]-wound Skin No Abnormality Appearance) (Pt Warm) -Tenderness on Palpation ([place]-wound No Skin Appearance) -Ulcer Cleansing Rinsed/ Irrigated with Saline -Anesthetic Used 4% Lidocaine Solution WC - Nurse 2 - General Ulcer CM Notes Start: 05/14/22 08:54 Freq: Status: Active Protocol: Activity Type Activity Date Activity User E-sign Co-sign Detail Recorded Client Recorded Date Recorded By Document 05/14/22 09:23 LIZETTE [id number] 05/14/22 09:25 LIZETTE 05/14/22 09:23 Wound Center Nurse 2 -Time 09:23 -Correct Patient Yes -Correct Side, Site, Position Yes -Correct Procedure Yes -Procedure Performed Yes -Type of Procedure Debridement -Tissue Removed Subcutaneous -Post Debridement (cm) - Length 6 -Post Debridement (cm) - Width 1.4 -Post Debridement (cm) - Depth 0.1 -Total Square (Post) (cm) 8.4 -Area of Debridement (cm) - Length 6 -Area of Debridement (cm) - Width 1.4 -Total Square (Area) (cm) 8.4 -Tunneling Yes -Tunneling Position (O'clock) 6 -Tunneling Distance (cm) 2.7 -Undermining/Tunneling No -Circular Undermining No -Wound/Ulcer Outcome Not Healed -Ulcer Cleansing Rinsed/ Irrigated with Saline -Foul Odor after Cleansing No -Bioengineered Tissue No -Bleeding Controlled with Pressure -Treatment Response Procedure Tolerated Well -Offloading No -Debridement - Subq, 1st 20sq cm Yes Pain Scale: 0-10 Numeric Is Patient Pain Free? Yes Assessment/Plan Assessment/Plan (1) Ulcer of right groin with fat layer exposed: CODE(S): L98.492 - Non-pressure chronic ulcer of skin of other sites with fat layer exposed (2) Ulcer of scrotum: CODE(S): N50.89 - Other specified disorders of the male genital organs (3) Ulcer of perineum with fat layer exposed: CODE(S): L98.492 - Non-pressure chronic ulcer of skin of other sites with fat layer exposed (4) Suppurative hidradenitis: CODE(S): L73.2 - Hidradenitis suppurativa (5) Smoker: CODE(S): F17.200 - Nicotine dependence, unspecified, uncomplicated (6) Hypertension: CODE(S): I10 - Essential (primary) hypertension QUALIFIERS: Hypertension type: primary hypertension Qualified Code(s): I10 - Essential (primary) hypertension (7) Diabetes type 2, uncontrolled: CODE(S): E11.65 - Type 2 diabetes mellitus with hyperglycemia (8) Hemoglobin A1c greater than 8.0 percent: CODE(S): R73.09 - Other abnormal glucose (9) Post-operative pain: CODE(S): G89.18 - Other acute postprocedural pain PLAN: Plan Patient was evaluated at the wound healing center. Wound care - Right groin is moistened Aquacel-Ag covered by gauze/ABD daily and prn to right groin. Make sure to pack into the base of the tunnel around 6 o'clock. Left ischial ulcer remains healed, continue to massage with lotion 1-2 times daily to help soften and moisturize the scarring. I have some concerns that this tunnel is no improving. I will discuss with Dr. Smith to see if he believes Ranulfo needs further evaluation with imaging or possible surgical intervention. Operative wound cultures from 11/23/21 positive for Streptococcus constellatus and Corynebacterium striatum. He completed Cefdinir. Creatinine repeat on 11/27/21, which was down to 1.62 from 1.73 on 11/25/21. Also, repeat K+ 4.0. Patient is on his Plavix. Left ischial ulcer wound culture obtained 02/14/21 which was positive for Corynebacterium striatum which is not typically treated with antibiotics. Encouraged increase protein intake and increase Vitamin C intake. Will need supplemental protein to help heal this wound. Encouraged patient to stop smoking as it may have deleterious effects on wound healing. Patient sees dermatology who is managing the medical portion of his hidradenitis. Follow up two weeks. Call or come in sooner if develop any questions or concerns.
[2022-05-28 08:52] VITALS: BP 224/95; PULSE 73; RESP 16; TEMP 35.9
--- NOTE | 2022-05-28 08:57 | WC ---
PT BP ^. R ARM 224/95, PULSE 73 PER MACHINE. WILL RECHK @ END OF VISIT AND UPDATE CM AND TEARER.
--- NOTE | 2022-05-28 12:06 | PCM.WC.PN ---
History of Present Illness Date of Service: 05/28/22 Chief Complaint: Excision of hidradenitis of right inguinal, scrotal and perineal area History of Wound: 56 year old male who is known to me. He has a history significant for hidradenitis, DM type II, HTN, CAD, arterial insufficiency, and smoker. He had surgery on 11/23/21 for 1. Surgical preparation right inguinal area with excision suppurative hidradenitis abscess (112 cm2, and 192 cm2 total). 2. Surgical preparation right scrotum with incision and drainage and excision suppurative hidradenitis abscess (50 cm2, and 192 cm2 total). 3. Surgical preparation right perineal area with excision suppurative hidradenitis abscess (30 cm2, and 192 cm2 total). Operative wound cultures from 11/23/21 positive for Streptococcus constellatus and Corynebacterium striatum. He was started on Cefdinir 300mg BID. Creatinine repeat today, 11/27/21, down to 1.62 from 1.73 on 11/25/21. Wound care - Dakin's 0.25% moistened gauze covered by ABD/super absorber daily and prn to right groin. Left ischial ulcer aquacel-ag covered with gauze daily. Today he denies fevers, chills, nausea and vomiting. He states that he has a good appetite. Other history: Surgery 03/22/20 - 1. Surgical preparation left inguinal area with excision hidradenitis (315 cm2 total wound). 2. Surgical preparation perineal area with excision hidradenitis (315 cm2 total wound). 3. Surgical preparation base left scrotum with incision and drainage and excision hidradenitis (315 cm2 total wound). Operative culture from 03/22/20 - Enterococcus faecalis and Streptococcus group F, Anaerobic cocci and Prevotella bivia. He was treated with Linezolid and Flagyl and has completed them. He saw Dr. Kasey live had an angioplasty of some of his vessels in his legs. Patient admitted to the hospital for increased redness and swelling of his left groin and buttocks on 09/27/20. Patient was started on IV Vancomycin, Levaquin and Flagyl by ID. Surgery 09/29/20 - 1. Surgical preparation left perianal area with excision hidradenitis abscess (144 cm2). 2. Surgical preparation left posterior thigh with incision and drainage and excisional debridement hidradenitis abscess (96 cm2). Operative cultures from 09/29/20 positive for Streptococcus constellatus, Corynebacterium striatum, Anaerobic cocci, and Prevotella species. Pathology of left perianal and left posterior thigh abscess showed pieces of skin with underlying tisse with acute and chronic inflammation, granulation tissue reaction and abscess formation. 10/01/20 - Laparoscopic sigmoid colostomy placed by Dr. Osorio due to the complicated perineal wound secondary to hidradenitis suppurativa status post excision. Culture from 02/14/22 positive for Corynebacterium striatum. Progress of Wound: Right groin wound is smaller and is a cluster. Wound bed is pink. The tunneling at 6 o'clock with no change in depth. Objective Data Objective Data Vital Signs: Vital Signs Temp Pulse Resp BP O2 Del Method 96.7 F L 73 16 224/95 H Room Air 05/28/22 08:52 05/28/22 08:52 05/28/22 08:52 05/28/22 08:52 05/28/22 08:52 Oxygen Delivery Method Room Air Charges/Coding Procedures Integumentary 111xxx-113xx: 17795 Ayla subq tissue 20 sq cm/< Debridement Note Debridement Note Wound debrided: groin, scrotum, perineal area Laterality: Right Wound Grade/Stage: Stage IV Type of Debridement: Excisional debridement Anesthesia Used: 5% Lidocaine Gel Depth: Down to and including healthy tissue and in the subcutaneous layer Percentage of wound debrided: 100 Instrument Used: 3mm curette Tissue Removed: Devitalized tissue and biofilm Severity: Fat Layer Exposed Amount of bleeding with debridement: Mild Bleeding Controlled with: Pressure and Compression and gauze Patient tolerated procedure: Patient tolerated procedure well Debridement Free Text: The ulcer is smaller but there is no change in the tunnel area. Post-Debridement Measurements and Additional Note: Post-Debridement Measurements/Treatment WC - Nurse 1 - General Ulcer Assessment Start: 05/14/22 08:54 Freq: Status: Active Protocol: ROC Activity Type Activity Date Activity User E-sign Co-sign Detail Recorded Client Recorded Date Recorded By Document 05/14/22 08:55 PL [id number] 05/14/22 09:01 PL Document 04/17/23 08:52 BM [id number] 05/28/22 08:57 BMF 05/14/22 05/28/22 08:55 08:52 - Today's Visit Information Type of service Follow-up Visit Follow-up Visit (Physician/BANQUET WAITER/WAITRESS (Physician/BANQUET WAITER/WAITRESS ) ) Arrival Mode Ambulatory Transfer Assistance None None Patient Identification Verified (Name & Yes Yes ) Patient Requires Transmission-Based No No Precautions Safety Precautions NA Vital Signs Temperature (97.8 F-99.1 F) 97.4 F L 96.7 F L Temperature Source Temporal Temporal Pulse Rate (60-100) 75 73 Pulse Location Monitor Respiratory Rate (12-18) 20 H 16 Respiratory rate source Observation Oxygen Delivery Method Room Air Blood Pressure (90/60-120/80) 203/69 H 224/95 H Blood Pressure Mean (mm Hg) 113 138 Source Monitor Position Supine Blood Pressure Location Right Arm History Since Last Visit- (Skip if this is Patient's initial visit) Have you changed medications since your No No last visit? Any new allergies or adverse reactions No No Had a fall/change in ADL's that may No No increase risk of falls Signs or symptoms of abuse and/or No No neglect since last visit Have you been in the hospital since your No No last visit? Has dressing in place as prescribed Yes Yes Has compression in place as prescribed Yes N/A Has offloadiing in place as prescribed Yes N/A Experienced any changes in pain level or No No management Left Footwear Regular Shoe Right Footwear Regular Shoe Pain Scale: 0-10 Numeric Is Patient Pain Free? Yes Yes - Nurse 1 - General Ulcer Measurement Start: 05/14/22 08:54 Freq: Status: Active Protocol: Activity Type Activity Date Activity User E-sign Co-sign Detail Recorded Client Recorded Date Recorded By Document 05/14/22 08:55 PL [id number] 05/14/22 09:01 PL Document 05/28/22 08:52 [facility] [id number] 05/28/22 08:57 BMF 05/14/22 05/28/22 08:55 08:52 Wound Center Nurse 1 #5scrotum/R Groin Cluster -Combined with other wound No No -Current Size (cm) - Length 3.2 1.8 -Current Size (cm) - Width 1.2 1 -Current Size (cm) - Depth 0.2 0.1 -Total Square Cm 3.84 1.8 -Date of Last Picture (Recall this 05/14/22 05/28/22 field) -Photo Taken Yes Yes -Epithelialization Large 67-100% Small 1-33% -Tunneling No No -Undermining/Tunneling No No -Circular Undermining No No -Classification - Thickness Full Thickness without Exposed Support Structure -Exudate Amt Medium Medium -Exudate Type Serosanguineous Serosanguineous -Wound Margin Flat & Intact -Granulation Amt Medium (34-66%) Large (67-100%) -Granulation Quality Pale,[place] -Slough/Fibrin Yes Yes -Necrosis Amt Medium (34-66%) Small (1-33%) -Necrotic Tissue Type Adherent Slough Adherent Slough -Texture (Abimbola-wound Skin Appearance) No Abnormality Assessed, Scarring -Moisture ([place]imbola-wound Skin Appearance) No Abnormality Assessed -Color (Abimbola-wound Skin Appearance) No Abnormality Assessed -Temperature ([place]imbola-wound Skin No Abnormality No Abnormality Appearance) (Pt Warm) (Pt Warm) -Tenderness on Palpation (Abimbola-wound No No Skin Appearance) -Ulcer Cleansing Rinsed/ Soap and Water Irrigated with Saline -Foul Odor after Cleansing No -Anesthetic Used 4% Lidocaine 4% Lidocaine Solution Solution WC - Nurse 2 - General Ulcer CM Notes Start: 05/14/22 08:54 Freq: Status: Active Protocol: Activity Type Activity Date Activity User E-sign Co-sign Detail Recorded Client Recorded Date Recorded By Document 05/14/22 09:23 LIZETTE [id number] 05/14/22 09:25 Document 05/28/22 09:16 LIZETTE [id number] 05/28/22 09:18 05/14/22 05/28/22 09:23 09:16 Wound Center Nurse 2 #5scrotum/R Groin Cluster -Time 09: 09:16 -Correct Patient Yes Yes -Correct Side, Site, Position Yes Yes -Correct Procedure Yes Yes -Procedure Performed Yes Yes -Type of Procedure Debridement Debridement -Clinical Debridement Subcutaneous -Tissue Removed Subcutaneous Subcutaneous -Post Debridement (cm) - Length 6 5.0 -Post Debridement (cm) - Width 1.4 1.0 -Post Debridement (cm) - Depth 0.1 0.1 -Total Square (Post) (cm) 8.4 5.00 -Area of Debridement (cm) - Length 6 5.0 -Area of Debridement (cm) - Width 1.4 1.0 -Total Square (Area) (cm) 8.4 5.00 -Tunneling Yes Yes -Tunneling Position (O'clock) 6 6 -Tunneling Distance (cm) 2.7 4.9 -Undermining/Tunneling No No -Circular Undermining No No -Wound/Ulcer Outcome Not Healed Not Healed -Ulcer Cleansing Rinsed/ Rinsed/ Irrigated with Irrigated with Saline Saline -Foul Odor after Cleansing No No -Bioengineered Tissue No No -Bleeding Controlled with Pressure Pressure -Treatment Response Procedure Procedure Tolerated Well Tolerated Well -Offloading No No -Debridement - Subq, 1st 20sq cm Yes Yes Pain Scale: 0-10 Numeric Is Patient Pain Free? Yes Yes - Nurse 3 - General Ulcer D/C NN Start: 05/14/22 08:54 Freq: Status: Active Protocol: Activity Type Activity Date Activity User E-sign Co-sign Detail Recorded Client Recorded Date Recorded By Document 05/14/22 09:34 [id number] 05/14/22 09:37 Document 05/28/22 09:23 DL [id number] 05/28/22 09:26 DL 05/14/22 05/28/22 09:34 09:23 Wound Care Center Nurse 3 #5scrotum/R Groin Cluster -Ulcer Cleansing Rinsed/ Rinsed/ Irrigated with Irrigated with Saline Saline -Foul Odor after Cleansing No No -Primary Dressing Applied Aquacel AG 4x4 -Other Dressing aquacel ag -Primary Dressing Covered/Secured with Dry Gauze, Dry Gauze, Secured with Secured with Tape Tape -Aquacel AG 4x4 0 Treatment Response Procedure Tolerated Well Pain Scale: 0-10 Numeric Is Patient Pain Free? Yes Yes WC - Visit Discharge Discharge Condition Stable Stable Ambulatory Status Ambulatory Ambulatory Transportation Private Auto Private Auto Medication Reconcilliation completed & Yes provided to patient/care provider Clinical Summary of Care Provided Yes Notes: BP rechecked: 223/86 Pulse 67. Assessment/Plan Assessment/Plan (1) Ulcer of right groin with fat layer exposed: CODE(S): L98.492 - Non-pressure chronic ulcer of skin of other sites with fat layer exposed (2) Ulcer of scrotum: CODE(S): N50.89 - Other specified disorders of the male genital organs (3) Ulcer of perineum with fat layer exposed: CODE(S): L98.492 - Non-pressure chronic ulcer of skin of other sites with fat layer exposed (4) Suppurative hidradenitis: CODE(S): L73.2 - Hidradenitis suppurativa (5) Smoker: CODE(S): F17.200 - Nicotine dependence, unspecified, uncomplicated (6) Hypertension: CODE(S): I10 - Essential (primary) hypertension QUALIFIERS: Hypertension type: primary hypertension Qualified Code(s): I10 - Essential (primary) hypertension (7) Diabetes type 2, uncontrolled: CODE(S): E11.65 - Type 2 diabetes mellitus with hyperglycemia (8) Hemoglobin A1c greater than 8.0 percent: CODE(S): R73.09 - Other abnormal glucose (9) Post-operative pain: CODE(S): G89.18 - Other acute postprocedural pain PLAN: Plan Patient was evaluated at the wound healing center. Wound care - Right groin is moistened Aquacel-Ag covered by gauze/ABD daily and prn to right groin. Make sure to pack into the base of the tunnel around 6 o'clock. Left ischial ulcer remains healed, continue to massage with lotion 1-2 times daily to help soften and moisturize the scarring. I have some concerns that this tunnel is no improving. I will discuss with Dr. Smith to see if he believes Ranulfo needs further evaluation with imaging or possible surgical intervention. Operative wound cultures from 11/23/21 positive for Streptococcus constellatus and Corynebacterium striatum. He completed Cefdinir. Creatinine repeat on 11/27/21, which was down to 1.62 from 1.73 on 11/25/21. Also, repeat K+ 4.0. Patient is on his Plavix. Left ischial ulcer wound culture obtained 02/14/21 which was positive for Corynebacterium striatum which is not typically treated with antibiotics. Blood pressure very elevated today. Patient states he has not taken his BP medication yet. His pressure was good last week when he was into see his PCP. He is denying any headaches at this time. Instructed him that he NEEDS to take his medication in the morning before coming in here. Discussed signs and symptoms of stroke and if he experiences those he is to call 911. Verbalized understanding. Encouraged increase protein intake and increase Vitamin C intake. Will need supplemental protein to help heal this wound. Encouraged patient to stop smoking as it may have deleterious effects on wound healing. Patient sees dermatology who is managing the medical portion of his hidradenitis. Follow up two weeks. Call or come in sooner if develop any questions or concerns.
== END 2022-06-10 23:59 | disposition home or self-care (01) ==
LOC: WC 08:45
PROVIDERS: PCP Nurse Practitioner; Referring Provider Nurse Practitioner Family; Visit Provider Nurse Practitioner Family
DX: L73.2 Hidradenitis suppurativa (principal); E11.622 Type 2 diabetes mellitus with other skin ulcer; L98.492 Non-pressure chronic ulcer of skin of other sites with fat layer exposed; E11.65 Type 2 diabetes mellitus with hyperglycemia; N50.89 Other specified disorders of the male genital organs; I10 Essential (primary) hypertension; I25.10 Atherosclerotic heart disease of native coronary artery without angina pectoris
CPT/HCPCS: 11042

== ENCOUNTER 2022-06-28 13:00 | Outpatient (RCR) | payer BC, SELFPAY ==
[2022-06-11 00:32] VITALS: BP 224/95; PULSE 73; RESP 16; TEMP 35.9
[2022-06-11 08:54] VITALS: BP 209/85; PULSE 83; RESP 18; TEMP 36.6
--- NOTE | 2022-06-11 12:17 | PCM.WC.PN ---
History of Present Illness Date of Service: 06/11/22 Chief Complaint: Excision of hidradenitis of right inguinal, scrotal and perineal area History of Wound: 56 year old male who is known to me. He has a history significant for hidradenitis, DM type II, HTN, CAD, arterial insufficiency, and smoker. He had surgery on 11/23/21 for 1. Surgical preparation right inguinal area with excision suppurative hidradenitis abscess (112 cm2, and 192 cm2 total). 2. Surgical preparation right scrotum with incision and drainage and excision suppurative hidradenitis abscess (50 cm2, and 192 cm2 total). 3. Surgical preparation right perineal area with excision suppurative hidradenitis abscess (30 cm2, and 192 cm2 total). Operative wound cultures from 11/23/21 positive for Streptococcus constellatus and Corynebacterium striatum. He was started on Cefdinir 300mg BID. Creatinine repeat today, 11/27/21, down to 1.62 from 1.73 on 11/25/21. Wound care - Dakin's 0.25% moistened gauze covered by ABD/super absorber daily and prn to right groin. Left ischial ulcer aquacel-ag covered with gauze daily. Today he denies fevers, chills, nausea and vomiting. He states that he has a good appetite. Other history: Surgery 03/22/20 - 1. Surgical preparation left inguinal area with excision hidradenitis (315 cm2 total wound). 2. Surgical preparation perineal area with excision hidradenitis (315 cm2 total wound). 3. Surgical preparation base left scrotum with incision and drainage and excision hidradenitis (315 cm2 total wound). Operative culture from 03/22/20 - Enterococcus faecalis and Streptococcus group F, Anaerobic cocci and Prevotella bivia. He was treated with Linezolid and Flagyl and has completed them. He saw Dr. Kasey live had an angioplasty of some of his vessels in his legs. Patient admitted to the hospital for increased redness and swelling of his left groin and buttocks on 09/27/20. Patient was started on IV Vancomycin, Levaquin and Flagyl by ID. Surgery 09/29/20 - 1. Surgical preparation left perianal area with excision hidradenitis abscess (144 cm2). 2. Surgical preparation left posterior thigh with incision and drainage and excisional debridement hidradenitis abscess (96 cm2). Operative cultures from 09/29/20 positive for Streptococcus constellatus, Corynebacterium striatum, Anaerobic cocci, and Prevotella species. Pathology of left perianal and left posterior thigh abscess showed pieces of skin with underlying tisse with acute and chronic inflammation, granulation tissue reaction and abscess formation. 10/01/20 - Laparoscopic sigmoid colostomy placed by Dr. Osorio due to the complicated perineal wound secondary to hidradenitis suppurativa status post excision. Culture from 02/14/22 positive for Corynebacterium striatum. Progress of Wound: Right groin wound is smaller and is a cluster. Wound bed is pink. The tunneling at 6 o'clock continues to have significant depth. Objective Data Objective Data Vital Signs: Vital Signs Temp Pulse Resp BP 98 F 83 18 209/85 H 06/11/22 08:54 06/11/22 08:54 06/11/22 08:54 06/11/22 08:54 Charges/Coding Procedures Integumentary 111xxx-113xx: [id number] Ayla subq tissue 20 sq cm/< Debridement Note Debridement Note Wound debrided: groin, scrotum, perineal area Laterality: Right Wound Grade/Stage: Stage IV Type of Debridement: Excisional debridement Anesthesia Used: 5% Lidocaine Gel Depth: Down to and including healthy tissue and in the subcutaneous layer Percentage of wound debrided: 100 Instrument Used: 3mm curette Tissue Removed: Devitalized tissue and biofilm Severity: Fat Layer Exposed Amount of bleeding with debridement: Mild Bleeding Controlled with: Pressure and Compression and gauze Patient tolerated procedure: Patient tolerated procedure well Debridement Free Text: The ulcer is smaller but there is no change in the tunnel area at 6 o'clock Post-Debridement Measurements and Additional Note: Post-Debridement Measurements/Treatment BEKA - Nurse 1 - General Ulcer Assessment Start: 06/11/22 08:54 Freq: Status: Active Protocol: ROC Activity Type Activity Date Activity User E-sign Co-sign Detail Recorded Client Recorded Date Recorded By Document 06/11/22 08:54 DL [id number] 06/11/22 09:00 DL 06/11/22 08:54 WC - Today's Visit Information Type of service Follow-up Visit (Physician/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 Any new allergies or adverse reactions No Had a fall/change in ADL's that may No increase risk of falls Signs or symptoms of abuse and/or No neglect since last visit Have you been in the hospital since your No last visit? Has dressing in place as prescribed Yes Has compression in place as prescribed N/A Has offloadiing in place as prescribed N/A Experienced any changes in pain level or No management Pain Scale: 0-10 Numeric Is Patient Pain Free? Yes - Nurse 1 - General Ulcer Measurement Start: 06/11/22 08:54 Freq: Status: Active Protocol: Activity Type Activity Date Activity User E-sign Co-sign Detail Recorded Client Recorded Date Recorded By Document 06/11/22 08:54 [id number] 06/11/22 09:00 DL 06/11/22 08:54 Wound Center Nurse 1 #5scrotum/R Groin Cluster -Current Size (cm) - Length 2.1 -Current Size (cm) - Width 0.8 -Current Size (cm) - Depth 0.1 -Total Square Cm 1.68 -Photo Taken Yes -Tunneling Position (O'clock) 6 -Tunneling Distance (cm) 0.6 -Exudate Amt Medium -Exudate Type Serosanguineous -Wound Margin Distinct, Outline Attached -Granulation Amt Large (67-100%) -Granulation Quality [place] -Necrosis Amt Small (1-33%) -Necrotic Tissue Type Adherent Slough -Structure Exposed N/A -Texture (Abimbola-wound Skin Appearance) Scarring -Moisture (Abimbola-wound Skin Appearance) No Abnormality -Color (Abimbola-wound Skin Appearance) No Abnormality -Temperature (Abimbola-wound Skin No Abnormality Appearance) (Pt Warm) -Tenderness on Palpation (Abimbola-wound No Skin Appearance) -Ulcer Cleansing Soap and Water -Foul Odor after Cleansing No -Anesthetic Used 4% Lidocaine Solution - Nurse 2 - General Ulcer CM Notes Start: 06/11/22 08:54 Freq: Status: Active Protocol: Activity Type Activity Date Activity User E-sign Co-sign Detail Recorded Client Recorded Date Recorded By Document 06/11/22 09:11 [id number] 06/11/22 09:15 LIZETTE 06/11/22 09:11 Wound Center Nurse 2 -Time 09:12 -Correct Patient Yes -Correct Side, Site, Position Yes -Correct Procedure Yes -Procedure Performed Yes -Type of Procedure Debridement -Clinical Debridement Subcutaneous -Tissue Removed Subcutaneous -Post Debridement (cm) - Length 4.5 -Post Debridement (cm) - Width 1.0 -Post Debridement (cm) - Depth 0.1 -Total Square (Post) (cm) 4.50 -Area of Debridement (cm) - Length 4.5 -Area of Debridement (cm) - Width 1.0 -Total Square (Area) (cm) 4.50 -Tunneling Yes -Tunneling Position (O'clock) 6 -Tunneling Distance (cm) 3.2 -Undermining/Tunneling No -Circular Undermining No -Wound/Ulcer Outcome Not Healed -Ulcer Cleansing Rinsed/ Irrigated with Saline -Foul Odor after Cleansing No -Bioengineered Tissue No -Bleeding Controlled with Pressure -Treatment Response Procedure Tolerated Well -Offloading No -Debridement - Subq, 1st 20sq cm Yes Pain Scale: 0-10 Numeric Is Patient Pain Free? Yes - Nurse 3 - General Ulcer D/C NN Start: 06/11/22 08:54 Freq: Status: Active Protocol: Activity Type Activity Date Activity User E-sign Co-sign Detail Recorded Client Recorded Date Recorded By Document 06/11/22 09:27 PL [id number] 06/11/22 09:29 PL 06/11/22 09:27 Wound Care Center Nurse 3 #5scrotum/R Groin Cluster -Ulcer Cleansing Rinsed/ Irrigated with Saline -Foul Odor after Cleansing No -Other Dressing Aquacel-ag,Abd, tape Pain Scale: 0-10 Numeric Is Patient Pain Free? Yes WC - Visit Discharge Discharge Condition Stable Ambulatory Status Ambulatory Assessment/Plan Assessment/Plan (1) Ulcer of right groin with fat layer exposed: CODE(S): L98.492 - Non-pressure chronic ulcer of skin of other sites with fat layer exposed (2) Ulcer of scrotum: CODE(S): N50.89 - Other specified disorders of the male genital organs (3) Ulcer of perineum with fat layer exposed: CODE(S): L98.492 - Non-pressure chronic ulcer of skin of other sites with fat layer exposed (4) Suppurative hidradenitis: CODE(S): L73.2 - Hidradenitis suppurativa (5) Smoker: CODE(S): F17.200 - Nicotine dependence, unspecified, uncomplicated (6) Hypertension: CODE(S): I10 - Essential (primary) hypertension QUALIFIERS: Hypertension type: primary hypertension Qualified Code(s): I10 - Essential (primary) hypertension (7) Diabetes type 2, uncontrolled: CODE(S): E11.65 - Type 2 diabetes mellitus with hyperglycemia (8) Hemoglobin A1c greater than 8.0 percent: CODE(S): R73.09 - Other abnormal glucose (9) Post-operative pain: CODE(S): G89.18 - Other acute postprocedural pain PLAN: Plan Patient was evaluated at the wound healing center. Wound care - Right groin ulcer cluster is moistened Aquacel-Ag covered by gauze/ABD daily and prn to right groin. Make sure to pack into the base of the tunnel around 6 o'clock. Left ischial ulcer remains healed, continue to massage with lotion 1-2 times daily to help soften and moisturize the scarring. Operative wound cultures from 11/23/21 positive for Streptococcus constellatus and Corynebacterium striatum. He completed Cefdinir. Creatinine repeat on 11/27/21, which was down to 1.62 from 1.73 on 11/25/21. Also, repeat K+ 4.0. Patient is on his Plavix. Left ischial ulcer wound culture obtained 02/14/21 which was positive for Corynebacterium striatum which is not typically treated with antibiotics. Blood pressure very elevated today. Patient states he has not taken his BP medication yet. His pressure was good last week when he was into see his PCP. He is denying any headaches at this time. Instructed him that he NEEDS to take his medication in the morning before coming in here. Discussed signs and symptoms of stroke and if he experiences those he is to call 911. Verbalized understanding. Encouraged increase protein intake and increase Vitamin C intake. Will need supplemental protein to help heal this wound. Encouraged patient to stop smoking as it may have deleterious effects on wound healing. Patient sees dermatology who is managing the medical portion of his hidradenitis. Will have him follow up in [address] Smith at the wound center for further evaluation of his hidradenitis and the non healing tunnel. Follow up two weeks. Call or come in sooner if develop any questions or concerns.
--- NOTE | 2022-06-28 15:35 | PCM.WC.PN ---
History of Present Illness Date of Service: 06/28/22 Chief Complaint: Nonhealing hidradenitis ulcer right inguinal, scrotal and perineal area History of Wound: 56 year old male who is known to me. He has a history significant for hidradenitis, DM type II, HTN, CAD, arterial insufficiency, and smoker. He had surgery on 11/23/21 for 1. Surgical preparation right inguinal area with excision suppurative hidradenitis abscess (112 cm2, and 192 cm2 total). 2. Surgical preparation right scrotum with incision and drainage and excision suppurative hidradenitis abscess (50 cm2, and 192 cm2 total). 3. Surgical preparation right perineal area with excision suppurative hidradenitis abscess (30 cm2, and 192 cm2 total). Operative wound cultures from 11/23/21 positive for Streptococcus constellatus and Corynebacterium striatum. He was placed on Cefdinir and has finished them. [facility]. Today he denies fevers, chills, nausea and vomiting. He states that he has a good appetite. He's been having intermittent flare-ups in his right perineal and perianal areas with induration extending onto his posterior thigh. He says he is ready for more surgery, probably in the Fall. Progress of Wound: Right groin wound is smaller and is a cluster. Wound bed is pink. Some tunneling present. Objective Data Objective Data Vital Signs: Vital Signs Temp Pulse Resp BP O2 Del Method 98 F 83 18 209/85 H Room Air 06/11/22 08:54 06/11/22 08:54 06/11/22 08:54 06/11/22 08:54 06/28/22 13:05 Oxygen Delivery Method Room Air Prealbumin from 04/23/22 was 19.8. Encouraged nutritional supplementation with protein to help the healing process. Lab / Micro Data Attestation: I reviewed the patient's lab results. Lab results narrative: HgbA1c from 06/27/22 was 7.3. For elective surgery the HgbA1c needs to be less than 8. Charges/Coding Procedures Integumentary 111xxx-113xx: 08669 Ayla musc/fascia 20 sq cm/< (ICD-10 - L98.492, N50.89, L73.2, E11.9, F17.200) Debridement Note Debridement Note Wound debrided: #5 Right groin, scrotum, perineal area. Laterality: Right Wound Grade/Stage: Stage IV Type of Debridement: Excisional debridement Anesthesia Used: 5% Lidocaine Gel Depth: Down to and including healthy tissue, in the subcutaneous layer and to muscle Percentage of wound debrided: 100 Instrument Used: 3mm curette Tissue Removed: subcutaneous tissue and muscle. Severity: Fat Layer Exposed (muscle is exposed.) Amount of bleeding with debridement: Mild Bleeding Controlled with: Pressure and Compression and gauze Patient tolerated procedure: Patient tolerated procedure well Post-Debridement Measurements and Additional Note: Post-Debridement Measurements/Treatment - Nurse 1 - General Ulcer Assessment Start: 06/11/22 08:54 Freq: Status: Active Protocol: ROC Activity Type Activity Date Activity User E-sign Co-sign Detail Recorded Client Recorded Date Recorded By Document 06/11/22 08:54 DL [id number] 06/11/22 09:00 DL Document 06/28/22 13:05 [facility] [id number] 06/28/22 13:12 [facility] 06/11/22 06/28/22 08:54 13:05 - Today's Visit Information Type of service Follow-up Visit Follow-up 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 ) ) Arrival Mode Ambulatory Ambulatory Transfer Assistance None None Accompanied by Patient Identification Verified (Name & Yes Yes ) Patient Requires Transmission-Based No No Precautions Blood Sugar Stated by Patient Vital Signs Temperature (97.8 F-99.1 F) 98 F Temperature Source Oral Pulse Rate (60-100) 83 Pulse Location Monitor Monitor Respiratory Rate (12-18) 18 Respiratory rate source Observation Observation Oxygen Delivery Method Room Air Blood Pressure (90/60-120/80) 209/85 H Blood Pressure Mean (mm Hg) 126 Source Monitor Monitor Position Sitting Blood Pressure Location Right Arm History Since Last Visit- (Skip if this is Patient's initial visit) Have you changed medications since your No No last visit? Any new allergies or adverse reactions No No Had a fall/change in ADL's that may No No increase risk of falls Signs or symptoms of abuse and/or No No neglect since last visit Have you been in the hospital since your No No last visit? Has dressing in place as prescribed Yes Yes Has compression in place as prescribed N/A N/A Has offloadiing in place as prescribed N/A N/A Experienced any changes in pain level or No No management Left Footwear Regular Shoe Right Footwear Regular Shoe Pain Scale: 0-10 Numeric Is Patient Pain Free? Yes Yes WC - Nurse 1 - General Ulcer Measurement Start: 06/11/22 08:54 Freq: Status: Active Protocol: Activity Type Activity Date Activity User E-sign Co-sign Detail Recorded Client Recorded Date Recorded By Document 06/11/22 08:54 DL [id number] 06/11/22 09:00 DL Document 06/28/22 13:05 [facility] [id number] 06/28/22 13:12 BMF 06/11/22 06/28/22 08:54 13:05 Wound Center Nurse 1 #5scrotum/R Groin Cluster -Combined with other wound No -Current Size (cm) - Length 2.1 1.5 -Current Size (cm) - Width 0.8 1.8 -Current Size (cm) - Depth 0.1 0.1 -Total Square Cm 1.68 2.70 -Date of Last Picture (Recall this 06/28/22 field) -Photo Taken Yes No -Epithelialization Small 1-33% -Tunneling No -Tunneling Position (O'clock) 6 -Tunneling Distance (cm) 0.6 -Undermining/Tunneling No -Circular Undermining No -Exudate Amt Medium Medium -Exudate Type Serosanguineous Serosanguineous -Wound Margin Distinct, Distinct, Outline Outline Attached Attached -Granulation Amt Large (67-100%) Large (67-100%) -Granulation Quality [place] Red -Slough/Fibrin Yes -Necrosis Amt Small (1-33%) Small (1-33%) -Necrotic Tissue Type Adherent Slough Adherent Slough -Structure Exposed N/A -Texture (Abimbola-wound Skin Appearance) Scarring Assessed, Scarring -Moisture (Abimbola-wound Skin Appearance) No Abnormality Assessed -Color (Abimbola-wound Skin Appearance) No Abnormality Assessed -Temperature (Abimbola-wound Skin No Abnormality No Abnormality Appearance) (Pt Warm) (Pt Warm) -Tenderness on Palpation (Abimbola-wound No No Skin Appearance) -Ulcer Cleansing Soap and Water Rinsed/ Irrigated with Saline -Foul Odor after Cleansing No No -Anesthetic Used 4% Lidocaine 5% Lidocaine Solution Gel WC - Nurse 2 - General Ulcer CM Notes Start: 06/11/22 08:54 Freq: Status: Active Protocol: Activity Type Activity Date Activity User E-sign Co-sign Detail Recorded Client Recorded Date Recorded By Document 06/11/22 09:11 [id number] 06/11/22 09:15 JF Document 06/28/22 13:19 [id number] 06/28/22 13:22 JF 06/11/22 06/28/22 09:11 13:19 Wound Center Nurse 2 #5scrotum/R Groin Cluster -Time 09:12 13:19 -Correct Patient Yes Yes -Correct Side, Site, Position Yes Yes -Correct Procedure Yes Yes -Procedure Performed Yes Yes -Type of Procedure Debridement Debridement -Clinical Debridement Subcutaneous Muscle -Tissue Removed Subcutaneous Muscle -Post Debridement (cm) - Length 4.5 1.6 -Post Debridement (cm) - Width 1.0 1 -Post Debridement (cm) - Depth 0.1 0.7 -Total Square (Post) (cm) 4.50 1.6 -Area of Debridement (cm) - Length 4.5 1.6 -Area of Debridement (cm) - Width 1.0 1 -Total Square (Area) (cm) 4.50 1.6 -Tunneling Yes No -Tunneling Position (O'clock) 6 -Tunneling Distance (cm) 3.2 -Undermining/Tunneling No No -Circular Undermining No No -Wound/Ulcer Outcome Not Healed Not Healed -Ulcer Cleansing Rinsed/ Rinsed/ Irrigated with Irrigated with Saline Saline -Foul Odor after Cleansing No No -Bioengineered Tissue No No -Bleeding Controlled with Pressure Pressure -Treatment Response Procedure Procedure Tolerated Well Tolerated Well -Offloading No No -Debridement - Subq, 1st 20sq cm Yes Yes Pain Scale: 0-10 Numeric Is Patient Pain Free? Yes Yes - Nurse 3 - General Ulcer D/C NN Start: 06/11/22 08:54 Freq: Status: Active Protocol: Activity Type Activity Date Activity User E-sign Co-sign Detail Recorded Client Recorded Date Recorded By Document 06/11/22 09:27 PL [id number] 06/11/22 09:29 PL Document 06/28/22 13:31 [facility] [id number] 06/28/22 13:33 [facility] 06/11/22 06/28/22 09:27 13:31 Wound Care Center Nurse 3 #5scrotum/R Groin Cluster -Ulcer Cleansing Rinsed/ Irrigated with Saline -Foul Odor after Cleansing No -Other Dressing Aquacel-ag,Abd, AQUACEL AG WITH tape ABD -Other Covering SECURED WITH COBAN Treatment Response Procedure Tolerated Well Pain Scale: 0-10 Numeric Is Patient Pain Free? Yes Yes WC - Visit Discharge Discharge Condition Stable Stable Ambulatory Status Ambulatory Ambulatory Transportation Private Auto Accompanied by Assessment/Plan Assessment/Plan (1) Ulcer of right groin with fat layer exposed: CODE(S): L98.492 - Non-pressure chronic ulcer of skin of other sites with fat layer exposed (2) Ulcer of scrotum: CODE(S): N50.89 - Other specified disorders of the male genital organs (3) Ulcer of perineum with fat layer exposed: CODE(S): L98.492 - Non-pressure chronic ulcer of skin of other sites with fat layer exposed (4) Suppurative hidradenitis: CODE(S): L73.2 - Hidradenitis suppurativa (5) DM type 2, goal HbA1c < 7.5%: CODE(S): E11.9 - Type 2 diabetes mellitus without complications PLAN: HgbA1c was 7.3 on 06/27/22. (6) Smoker: CODE(S): F17.200 - Nicotine dependence, unspecified, uncomplicated PLAN: Plan Wound care - Continue Aquacel-Ag to right groin area. They are not packing into the tunnel at this time. He has flare-ups of his hidradenitis in his right perineal and perianal areas. There is some induration on his right posterior thigh that may need to be excised. He is ready for this next surgery in the Fall. The tunnelling noted on the front in the perineal area will be addressed and excised and unroofed to make wound care easier at the time of his next surgery. At the time of surgery, the wounds will be left open and wound care started with Dakin's dressings. Prior to that surgery, will need to check a wound culture. A positive culture will necessitate antibiotic therapy. Patient has increased metabolic demands from the chronic hidradenitis ulcers, His last Prealbumin on 04/23/22 was 19.8. Encourage nutritional supplementation with protein to help the healing process. Encouraged patient to stop smoking as it may have deleterious effects on wound healing. Patient sees dermatology who is managing the medical portion of his hidradenitis. Follow up 3-4 weeks. Call or come in sooner if develop any questions or concerns.
== END 2022-07-11 23:59 | disposition home or self-care (01) ==
LOC: WC 13:00
PROVIDERS: PCP Nurse Practitioner; Referring Provider Nurse Practitioner Family; Visit Provider Nurse Practitioner Family
DX: L73.2 Hidradenitis suppurativa (principal); E11.622 Type 2 diabetes mellitus with other skin ulcer; L98.492 Non-pressure chronic ulcer of skin of other sites with fat layer exposed; E11.65 Type 2 diabetes mellitus with hyperglycemia; I25.10 Atherosclerotic heart disease of native coronary artery without angina pectoris; I10 Essential (primary) hypertension; N50.89 Other specified disorders of the male genital organs; F17.200 Nicotine dependence, unspecified, uncomplicated; G89.18 Other acute postprocedural pain
CPT/HCPCS: 11042

== ENCOUNTER 2022-07-16 08:24 | Outpatient (RCR) | payer BC, SELFPAY ==
[2022-07-12 00:29] VITALS: BP 209/85; PULSE 83; RESP 18; TEMP 36.6
[2022-07-16 08:37] VITALS: BP 226/88; PULSE 74; RESP 19; TEMP 36.2
--- NOTE | 2022-07-16 09:26 | PN.PCM_ITS ---
History of Present Illness Date of Service: 07/16/22 Chief Complaint: Excision of hidradenitis of right inguinal, scrotal and p erineal area History of Wound: 56 year old male who is known to me. He has a history significant for hidradenitis, DM type II, HTN, CAD, arterial insufficiency, and smoker. He had surgery on 11/23/21 for 1. Surgical preparation right inguinal area with excision suppurative hidradenitis abscess (112 cm2, and 192 cm2 total). 2. Surgical preparation right scrotum with incision and drainage and excision suppurative hidradenitis abscess (50 cm2, and 192 cm2 total). 3. Surgical preparation right perineal area with excision suppurative hidradenitis abscess (30 cm2, and 192 cm2 total). Operative wound cultures from 11/23/21 positive for Streptococcus constellatus and Corynebacterium striatum. He was started on Cefdinir 300mg BID. Creatinine repeat today, 11/27/21, down to 1.62 from 1.73 on 11/25/21. Wound care - Dakin's 0.25% moistened gauze covered by ABD/super absorber daily and prn to right groin. Left ischial ulcer aquacel-ag covered with gauze daily. Today he denies fevers, chills, nausea and vomiting. He states that he has a good appetite. Other history: Surgery 03/22/20 - 1. Surgical preparation left inguinal area with excision hidradenitis (315 cm2 total wound). 2. Surgical preparation perineal area with excision hidradenitis (315 cm2 total wound). 3. Surgical preparation base left scrotum with incision and drainage and excision hidradenitis (315 cm2 total wound). Operative culture from 03/22/20 - Enterococcus faecalis and Streptococcus group F, Anaerobic cocci and Prevotella bivia. He was treated with Linezolid and Flagyl and has completed them. He saw Dr. Kasey live had an angioplasty of some of his vessels in his legs. Patient admitted to the hospital for increased redness and swelling of his left groin and buttocks on 09/27/20. Patient was started on IV Vancomycin, Levaquin and Flagyl by ID. Surgery 09/29/20 - 1. Surgical preparation left perianal area with excision hidradenitis abscess (144 cm2). 2. Surgical preparation left posterior thigh with incision and drainage and excisional debridement hidradenitis abscess (96 cm2). Operative cultures from 09/29/20 positive for Streptococcus constellatus, Co rynebacterium striatum, Anaerobic cocci, and Prevotella species. Pathology of left perianal and left posterior thigh abscess showed pieces of skin with underlying tisse with acute and chronic inflammation, granulation tissue reaction and abscess formation. 10/01/20 - Laparoscopic sigmoid colostomy placed by Dr. Osorio due to the complicated perineal wound secondary to hidradenitis suppurativa status post excision. Culture from 02/14/22 positive for Corynebacterium striatum. Progress of Wound: Right groin wound is smaller and is a cluster. Wound bed is pink. The tunneling at 6 o'clock continues to have significant depth. Patient has been evaluated by Dr. Smith a couple weeks ago and is going to have further surgery in September. Objective Data Objective Data Vital Signs: Vital Signs Temp Pulse Resp BP 97.1 F L 74 19 H 226/88 H 07/16/22 08:37 07/16/22 08:37 07/16/22 08:37 07/16/22 08:37 Charges/Coding Procedures Integumentary 111xxx-113xx: [id number] Ayla subq tissue 20 sq cm/< Debridement Note Debridement Note Wound debrided: groin, scrotum, perineal area Laterality: Right Wound Grade/Stage: Stage IV Type of Debridement: Excisional debridement Anesthesia Used: 5% Lidocaine Gel Depth: Down to and including healthy tissue and in the subcutaneous layer Percentage of wound debrided: 100 Instrument Used: 3mm curette Tissue Removed: Devitalized tissue and biofilm Severity: Fat Layer Exposed Amount of bleeding with debridement: Mild Bleeding Controlled with: Pressure and Compression and gauze Patient tolerated procedure: Patient tolerated procedure well Debridement Free Text: The ulcer is smaller but there is no change in the tunnel area at 6 o'clock, the tunnel was not debrided per patient request. 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 Any new allergies or adverse reactions No Had a fall/change in ADL's that may No increase risk of falls Signs or symptoms of abuse and/or No neglect since last visit Have you been in the hospital since your No last visit? Has dressing in place as prescribed Yes Has compression in place as prescribed N/A Has offloadiing in place as prescribed Yes Experienced any changes in pain level or No management Pain Scale: 0-10 Numeric Is Patient Pain Free? Yes - Nurse 1 - General Ulcer Measurement Start: 07/16/22 08:36 Freq: Status: Active Protocol: Activity Type Activity Date Activity User E-sign Co-sign Detail Recorded Client Recorded Date Recorded By Document 07/16/22 08:37 DL [id number] 07/16/22 08:43 07/16/22 08:37 Wound Center Nurse 1 #5scrotum/R Groin Cluster -Current Size (cm) - Length 1.2 -Current Size (cm) - Width 0.5 -Current Size (cm) - Depth 0.3 -Total Square Cm 0.60 -Photo Taken Yes -Exudate Amt Small -Exudate Type Serosanguineous -Wound Margin Distinct, Outline Attached -Granulation Amt Large (67-100%) -Granulation Quality [place] -Necrosis Amt None Present (0 %) -Structure Exposed N/A -Texture (Abimbola-wound Skin Appearance) Scarring -Moisture (Abimbola-wound Skin Appearance) No Abnormality -Color (Abimbola-wound Skin Appearance) No Abnormality -Temperature (Abimbola-wound Skin No Abnormality Appearance) (Pt Warm) -Tenderness on Palpation (Abimbola-wound No Skin Appearance) -Ulcer Cleansing Soap and Water -Foul Odor after Cleansing No -Anesthetic Used 5% Lidocaine Gel - Nurse 2 - General Ulcer CM Notes Start: 07/16/22 08:36 Freq: Status: Active Protocol: Activity Type Activity Date Activity User E-sign Co-sign Detail Recorded Client Recorded Date Recorded By Document 07/16/22 08:56 [id number] 07/16/22 08:58 07/16/22 08:56 Wound Center Nurse 2 -Time 08:57 -Correct Patient Yes -Correct Side, Site, Position Yes -Correct Procedure Yes -Procedure Performed Yes -Type of Procedure Debridement -Clinical Debridement Subcutaneous -Tissue Removed Subcutaneous -Post Debridement (cm) - Length 4.5 -Post Debridement (cm) - Width 1.4 -Post Debridement (cm) - Depth 4.5 -Total Square (Post) (cm) 6.30 -Area of Debridement (cm) - Length 4.5 -Area of Debridement (cm) - Width 1.4 -Total Square (Area) (cm) 6.30 -Tunneling No -Undermining/Tunneling No -Circular Undermining No -Wound/Ulcer Outcome Not Healed -Ulcer Cleansing Rinsed/ Irrigated with Saline -Foul Odor after Cleansing No -Bioengineered Tissue No -Bleeding Controlled with Pressure -Treatment Response Procedure Tolerated Well -Offloading No -Debridement - Subq, 1st 20sq cm Yes Pain Scale: 0-10 Numeric Is Patient Pain Free? Yes - Nurse 3 - General Ulcer D/C NN Start: 07/16/22 08:36 Freq: Status: Active Protocol: Activity Type Activity Date Activity User E-sign Co-sign Detail Recorded Client Recorded Date Recorded By Document 07/16/22 09:04 [facility] [id number] 07/16/22 09:05 [facility] 07/16/22 09:04 Wound Care Center Nurse 3 #5scrotum/R Groin Cluster -Other Dressing abd, secured w/ coban. does dressing -Other Covering aquacel ag Treatment Response Procedure Tolerated Well Pain Scale: 0-10 Numeric Is Patient Pain Free? Yes - Visit Discharge Discharge Condition Stable Ambulatory Status Ambulatory Transportation Private Auto Accompanied by Assessment/Plan Assessment/Plan (1) Ulcer of right groin with fat layer exposed: CODE(S): L98.492 - Non-pressure chronic ulcer of skin of other sites with fat layer exposed (2) Ulcer of scrotum: CODE(S): N50.89 - Other specified disorders of the male genital organs (3) Ulcer of perineum with fat layer exposed: CODE(S): L98.492 - Non-pressure chronic ulcer of skin of other sites with fat layer exposed (4) Suppurative hidradenitis: CODE(S): L73.2 - Hidradenitis suppurativa (5) Smoker: CODE(S): F17.200 - Nicotine dependence, unspecified, uncomplicated (6) Hypertension: CODE(S): I10 - Essential (primary) hypertension QUALIFIERS: Hypertension type: primary hypertension Qualified Code(s): I10 - Essential (primary) hypertension (7) Diabetes type 2, uncontrolled: CODE(S): E11.65 - Type 2 diabetes mellitus with hyperglycemia (8) Hemoglobin A1c greater than 8.0 percent: CODE(S): R73.09 - Other abnormal glucose (9) Post-operative pain: CODE(S): G89.18 - Other acute postprocedural pain PLAN: Plan Patient was evaluated at the wound healing center. Wound care - Right groin ulcer cluster is moistened Aquacel-Ag covered by gauze/ABD daily and prn to right groin.They are not packing into the tunnel at this time. Left ischial ulcer remains healed, continue to massage with lotion 1- 2 times daily to help soften and moisturize the scarring. Operative wound cultures from 11/23/21 positive for Streptococcus constellatus and Corynebacterium striatum. He completed Cefdinir. Creatinine repeat on 11/27/21, which was down to 1.62 from 1.73 on 11/25/21. Also, repeat K+ 4.0. Patient is on his Plavix. Left ischial ulcer wound culture obtained 02/14/21 which was positive for Corynebacterium striatum which is not typically treated with antibiotics. Encouraged increase protein intake and increase Vitamin C intake. Will need supplemental protein to help heal this wound. Encouraged patient to stop smoking as it may have deleterious effects on wound healing. Patient sees dermatology who is managing the medical portion of his hidradenitis. Follow up 4 weeks. Call or come in sooner if develop any questions or concerns.
== END 2022-08-10 23:59 | disposition home or self-care (01) ==
LOC: WC 08:24
PROVIDERS: PCP Nurse Practitioner; Referring Provider Nurse Practitioner Family; Visit Provider Nurse Practitioner Family
DX: L73.2 Hidradenitis suppurativa (principal); E11.622 Type 2 diabetes mellitus with other skin ulcer; L98.492 Non-pressure chronic ulcer of skin of other sites with fat layer exposed; I25.10 Atherosclerotic heart disease of native coronary artery without angina pectoris; I10 Essential (primary) hypertension; N50.89 Other specified disorders of the male genital organs
CPT/HCPCS: 11042

== ENCOUNTER 2022-09-10 08:45 | Outpatient (RCR) | payer BC, SELFPAY ==
[2022-08-11 01:12] VITALS: BP 226/88; PULSE 74; RESP 19; TEMP 36.2
[2022-08-13 08:38] VITALS: BP 191/60; PULSE 83; RESP 16; TEMP 36.8
--- NOTE | 2022-08-13 09:52 | PN.PCM_ITS ---
History of Present Illness Date of Service: 08/13/22 Chief Complaint: Excision of hidradenitis of right inguinal, scrotal and p erineal area History of Wound: 56 year old male who is known to me. He has a history significant for hidradenitis, DM type II, HTN, CAD, arterial insufficiency, and smoker. He had surgery on 11/23/21 for 1. Surgical preparation right inguinal area with excision suppurative hidradenitis abscess (112 cm2, and 192 cm2 total). 2. Surgical preparation right scrotum with incision and drainage and excision suppurative hidradenitis abscess (50 cm2, and 192 cm2 total). 3. Surgical preparation right perineal area with excision suppurative hidradenitis abscess (30 cm2, and 192 cm2 total). Operative wound cultures from 11/23/21 positive for Streptococcus constellatus and Corynebacterium striatum. He was started on Cefdinir 300mg BID. Creatinine repeat today, 11/27/21, down to 1.62 from 1.73 on 11/25/21. Wound care - Dakin's 0.25% moistened gauze covered by ABD/super absorber daily and prn to right groin. Left ischial ulcer aquacel-ag covered with gauze daily. Today he denies fevers, chills, nausea and vomiting. He states that he has a good appetite. Other history: Surgery 03/22/20 - 1. Surgical preparation left inguinal area with excision hidradenitis (315 cm2 total wound). 2. Surgical preparation perineal area with excision hidradenitis (315 cm2 total wound). 3. Surgical preparation base left scrotum with incision and drainage and excision hidradenitis (315 cm2 total wound). Operative culture from 03/22/20 - Enterococcus faecalis and Streptococcus group F, Anaerobic cocci and Prevotella bivia. He was treated with Linezolid and Flagyl and has completed them. He saw Dr. Kasey live had an angioplasty of some of his vessels in his legs. Patient admitted to the hospital for increased redness and swelling of his left groin and buttocks on 09/27/20. Patient was started on IV Vancomycin, Levaquin and Flagyl by ID. Surgery 09/29/20 - 1. Surgical preparation left perianal area with excision hidradenitis abscess (144 cm2). 2. Surgical preparation left posterior thigh with incision and drainage and excisional debridement hidradenitis abscess (96 cm2). Operative cultures from 09/29/20 positive for Streptococcus constellatus, Co rynebacterium striatum, Anaerobic cocci, and Prevotella species. Pathology of left perianal and left posterior thigh abscess showed pieces of skin with underlying tisse with acute and chronic inflammation, granulation tissue reaction and abscess formation. 10/01/20 - Laparoscopic sigmoid colostomy placed by Dr. Osorio due to the complicated perineal wound secondary to hidradenitis suppurativa status post excision. Culture from 02/14/22 positive for Corynebacterium striatum. Progress of Wound: Right groin wound is smaller, unable to locate the tunnel today. Wound bed is pink. Left ischial hidradenitis area is stable. Objective Data Objective Data Vital Signs: Vital Signs Temp Pulse Resp BP O2 Del Method 98.3 F 83 16 191/60 H Room Air 08/13/22 08:38 08/13/22 08:38 08/13/22 08:38 08/13/22 08:38 08/13/22 08:38 Oxygen Delivery Method Room Air Charges/Coding Procedures Integumentary 111xxx-113xx: 38993 Ayla subq tissue 20 sq cm/< Debridement Note Debridement Note Wound debrided: groin, scrotum, perineal area Laterality: Right Wound Grade/Stage: Stage IV Type of Debridement: Excisional debridement Anesthesia Used: 5% Lidocaine Gel Depth: Down to and including healthy tissue and in the subcutaneous layer Percentage of wound debrided: 100 Instrument Used: 3mm curette Tissue Removed: Devitalized tissue and biofilm Severity: Fat Layer Exposed Amount of bleeding with debridement: Mild Bleeding Controlled with: Pressure and Compression and gauze Patient tolerated procedure: Patient tolerated procedure well Post-Debridement Measurements and Additional Note: Post-Debridement Measurements/Treatment - Nurse 1 - General Ulcer Assessment Start: 08/13/22 08:37 Freq: Status: Active Protocol: ROC Activity Type Activity Date Activity User E-sign Co-sign Detail Recorded Client Recorded Date Recorded By Document 08/13/22 08:38 [facility] [id number] 08/13/22 08:43 [facility] 08/13/22 08:38 - Today's Visit Information Type of service Follow-up Visit (Physician/INVOICING SPECIALIST ) Arrival Mode Ambulatory Transfer Assistance None Patient Identification Verified (Name & Yes ) Patient Requires Transmission-Based No Precautions Vital Signs Temperature (97.8 F-99.1 F) 98.3 F Temperature Source Temporal Pulse Rate (60-100) 83 Pulse Location Monitor Respiratory Rate (12-18) 16 Respiratory rate source Observation Oxygen Delivery Method Room Air Blood Pressure (90/60-120/80) 191/60 H Blood Pressure Mean (mm Hg) 103 Source Monitor Position Sitting Blood Pressure Location Left Arm History Since Last Visit- (Skip if this is Patient's initial visit) Have you changed medications since your No last visit? Any new allergies or adverse reactions No Had a fall/change in ADL's that may No increase risk of falls Signs or symptoms of abuse and/or No neglect since last visit Have you been in the hospital since your No last visit? Has dressing in place as prescribed Yes Has compression in place as prescribed N/A Has offloadiing in place as prescribed N/A Experienced any changes in pain level or No management Left Footwear Regular Shoe Right Footwear Regular Shoe Pain Scale: 0-10 Numeric Is Patient Pain Free? Yes - Nurse 1 - General Ulcer Measurement Start: 08/13/22 08:37 Freq: Status: Active Protocol: Activity Type Activity Date Activity User E-sign Co-sign Detail Recorded Client Recorded Date Recorded By Document 08/13/22 08:38 [facility] [id number] 08/13/22 08:43 [facility] 08/13/22 08:38 Wound Center Nurse 1 #5scrotum/R Groin Cluster -Combined with other wound No -Current Size (cm) - Length 3.4 -Current Size (cm) - Width 0.8 -Current Size (cm) - Depth 0.4 -Total Square Cm 2.72 -Date of Last Picture (Recall this 08/13/22 field) -Photo Taken Yes -Epithelialization None Present -Tunneling No -Undermining/Tunneling No -Circular Undermining No -Exudate Amt Medium -Exudate Type Serosanguineous -Wound Margin Thickened -Granulation Amt Large (67-100%) -Granulation Quality Red -Slough/Fibrin Yes -Necrosis Amt Small (1-33%) -Necrotic Tissue Type Adherent Slough -Texture (Abimbola-wound Skin Appearance) Assessed, Scarring -Moisture (Abimbola-wound Skin Appearance) Assessed -Color (Abimbola-wound Skin Appearance) Assessed -Temperature (Abimbola-wound Skin No Abnormality Appearance) (Pt Warm) -Tenderness on Palpation (Abimbola-wound No Skin Appearance) -Ulcer Cleansing Soap and Water -Foul Odor after Cleansing No -Anesthetic Used 5% Lidocaine Gel WC - Nurse 2 - General Ulcer CM Notes Start: 08/13/22 08:37 Freq: Status: Active Protocol: Activity Type Activity Date Activity User E-sign Co-sign Detail Recorded Client Recorded Date Recorded By Document 08/13/22 09:05 LIZETTE [id number] 08/13/22 09:08 LIZETTE 08/13/22 09:05 Wound Center Nurse 2 -Time 09:05 -Correct Patient Yes -Correct Side, Site, Position Yes -Correct Procedure Yes -Procedure Performed Yes -Type of Procedure Debridement -Clinical Debridement Subcutaneous -Tissue Removed Subcutaneous -Post Debridement (cm) - Length 3.2 -Post Debridement (cm) - Width 0.9 -Post Debridement (cm) - Depth 0.2 -Total Square (Post) (cm) 2.88 -Area of Debridement (cm) - Length 3.2 -Area of Debridement (cm) - Width 0.9 -Total Square (Area) (cm) 2.88 -Tunneling No -Undermining/Tunneling No -Circular Undermining No -Wound/Ulcer Outcome Not Healed -Ulcer Cleansing Rinsed/ Irrigated with Saline -Foul Odor after Cleansing No -Bioengineered Tissue No -Bleeding Controlled with Pressure -Treatment Response Procedure Tolerated Well -Offloading No -Debridement - Subq, 1st 20sq cm Yes Pain Scale: 0-10 Numeric Is Patient Pain Free? Yes - Nurse 3 - General Ulcer D/C NN Start: 08/13/22 08:37 Freq: Status: Active Protocol: Activity Type Activity Date Activity User E-sign Co-sign Detail Recorded Client Recorded Date Recorded By Document 08/13/22 09:12 LIZETTE [id number] 08/13/22 09:13 LIZETTE 08/13/22 09:12 Wound Care Center Nurse 3 #5scrotum/R Groin Cluster -Ulcer Cleansing Rinsed/ Irrigated with Saline -Foul Odor after Cleansing No -Primary Dressing Applied Aquacel AG 2x2 -Primary Dressing Covered/Secured with Dry Gauze -Other Covering ABD pad -Aquacel AG 2x2 1 Pain Scale: 0-10 Numeric Is Patient Pain Free? Yes WC - Visit Discharge Discharge Condition Stable Ambulatory Status Ambulatory Transportation Private Auto Medication Reconcilliation completed & Yes provided to patient/care provider Clinical Summary of Care Provided Yes Assessment/Plan Assessment/Plan (1) Ulcer of right groin with fat layer exposed: CODE(S): L98.492 - Non-pressure chronic ulcer of skin of other sites with fat layer exposed (2) Ulcer of scrotum: CODE(S): N50.89 - Other specified disorders of the male genital organs (3) Ulcer of perineum with fat layer exposed: CODE(S): L98.492 - Non-pressure chronic ulcer of skin of other sites with fat layer exposed (4) Suppurative hidradenitis: CODE(S): L73.2 - Hidradenitis suppurativa (5) Smoker: CODE(S): F17.200 - Nicotine dependence, unspecified, uncomplicated (6) Hypertension: CODE(S): I10 - Essential (primary) hypertension QUALIFIERS: Hypertension type: primary hypertension Qualified Code(s): I10 - Essential (primary) hypertension (7) Diabetes type 2, uncontrolled: CODE(S): E11.65 - Type 2 diabetes mellitus with hyperglycemia (8) Hemoglobin A1c greater than 8.0 percent: CODE(S): R73.09 - Other abnormal glucose (9) Post-operative pain: CODE(S): G89.18 - Other acute postprocedural pain PLAN: Plan Patient was evaluated at the wound healing center. Wound care - Right groin ulcer cluster is moistened Aquacel-Ag covered by gauze/ABD daily and prn to right groin.They are not packing into the tunnel at this time. Left ischial ulcer remains healed, continue to massage with lotion 1- 2 times daily to help soften and moisturize the scarring. Operative wound cultures from 11/23/21 positive for Streptococcus constellatus and Corynebacterium striatum. He completed Cefdinir. Creatinine repeat on 11/27/21, which was down to 1.62 from 1.73 on 11/25/21. Also, repeat K+ 4.0. Patient is on his Plavix. Left ischial ulcer wound culture obtained 02/14/21 which was positive for C orynebacterium striatum which is not typically treated with antibiotics. Encouraged increase protein intake and increase Vitamin C intake. Will need supplemental protein to help heal this wound. Encouraged patient to stop smoking as it may have deleterious effects on wound healing. Patient sees dermatology who is managing the medical portion of his hidradenitis. He is going to be scheduled to have debridement of the hidradenitis on his left ischial area in a few months. Follow up 4 weeks. Call or come in sooner if develop any questions or concerns.
[2022-09-10 08:44] VITALS: BP 206/79; PULSE 63; RESP 16; TEMP 36.3
--- NOTE | 2022-09-10 10:15 | PCM.WC.PN ---
History of Present Illness Date of Service: 09/10/22 Chief Complaint: Nonhealing hidradenitis ulcer right inguinal, scrotal and perineal area History of Wound: 57 year old male who is known to me. He has a history significant for hidradenitis, DM type II, HTN, CAD, arterial insufficiency, and smoker. He had surgery on 11/23/21 for 1. Surgical preparation right inguinal area with excision suppurative hidradenitis abscess (112 cm2, and 192 cm2 total). 2. Surgical preparation right scrotum with incision and drainage and excision suppurative hidradenitis abscess (50 cm2, and 192 cm2 total). 3. Surgical preparation right perineal area with excision suppurative hidradenitis abscess (30 cm2, and 192 cm2 total). Operative wound cultures from 11/23/21 positive for Streptococcus constellatus and Corynebacterium striatum. He was placed on Cefdinir and has finished them. [facility] Today he denies fevers, chills, nausea and vomiting. He states that he has a good appetite. He's been having intermittent flare-ups in his right perineal and perianal areas with induration extending onto his posterior thigh. He says he is ready for more surgery, probably in the Fall. Progress of Wound: Right groin wound is larger in size, he has not been wearing his dressing because he has been busy working outside. Unable to locate the tunnel but he has thickened scar tissue in that area. Wound bed is pink. Objective Data Objective Data Vital Signs: Vital Signs Temp Pulse Resp BP O2 Del Method 97.4 F L 63 16 206/79 H Room Air 09/10/22 08:44 09/10/22 08:44 09/10/22 08:44 09/10/22 08:44 09/10/22 08:44 Oxygen Delivery Method Room Air Charges/Coding Procedures Integumentary 111xxx-113xx: [id number] Ayla subq tissue 20 sq cm/< Debridement Note Debridement Note Wound debrided: groin, scrotum, perineal area Laterality: Right Wound Grade/Stage: Stage IV Type of Debridement: Excisional debridement Anesthesia Used: 5% Lidocaine Gel Depth: Down to and including healthy tissue and in the subcutaneous layer Percentage of wound debrided: 100 Instrument Used: 5mm curette Tissue Removed: Devitalized tissue and biofilm Severity: Fat Layer Exposed Amount of bleeding with debridement: Mild Bleeding Controlled with: Pressure and Compression and gauze Patient tolerated procedure: Patient tolerated procedure well Post-Debridement Measurements and Additional Note: Post-Debridement Measurements/Treatment - Nurse 1 - General Ulcer Assessment Start: 08/13/22 08:37 Freq: Status: Active Protocol: ROC Activity Type Activity Date Activity User E-sign Co-sign Detail Recorded Client Recorded Date Recorded By Document 08/13/22 08:38 [facility] [id number] 08/13/22 08:43 [facility] Document 09/10/22 08:44 [facility] [id number] 09/10/22 08:54 [facility] 08/13/22 09/10/22 08:38 08:44 WC - Today's Visit Information Type of service Follow-up Visit Follow-up Visit (Physician/GAME BREEDING FARM MANAGER (Physician/GAME BREEDING FARM MANAGER ) ) Arrival Mode Ambulatory Ambulatory Transfer Assistance None None Transfer Assist (Other) Patient Identification Verified (Name & Yes Yes ) Patient Requires Transmission-Based No No Precautions Vital Signs Temperature (97.8 F-99.1 F) 98.3 F 97.4 F L Temperature Source Temporal Temporal Pulse Rate (60-100) 83 63 Pulse Location Monitor Monitor Respiratory Rate (12-18) 16 16 Respiratory rate source Observation Observation Oxygen Delivery Method Room Air Room Air Blood Pressure (90/60-120/80) 191/60 H 206/79 H Blood Pressure Mean (mm Hg) 103 121 Source Monitor Monitor Position Sitting Sitting Blood Pressure Location Left Arm History Since Last Visit- (Skip if this is Patient's initial visit) Have you changed medications since your No No last visit? Any new allergies or adverse reactions No No Had a fall/change in ADL's that may No No increase risk of falls Signs or symptoms of abuse and/or No No neglect since last visit Have you been in the hospital since your No No last visit? Has dressing in place as prescribed Yes Yes Has compression in place as prescribed N/A N/A Has offloadiing in place as prescribed N/A N/A Experienced any changes in pain level or No No management Left Footwear Regular Shoe Regular Shoe Right Footwear Regular Shoe Regular Shoe Pain Scale: 0-10 Numeric Is Patient Pain Free? Yes Yes BEKA - Nurse 1 - General Ulcer Measurement Start: 08/13/22 08:37 Freq: Status: Active Protocol: Activity Type Activity Date Activity User E-sign Co-sign Detail Recorded Client Recorded Date Recorded By Document 08/13/22 08:38 [facility] [id number] 08/13/22 08:43 [facility] Document 09/10/22 08:44 [facility] [id number] 09/10/22 08:54 [facility] 08/13/22 09/10/22 08:38 08:44 Wound Center Nurse 1 #5scrotum/R Groin Cluster -Combined with other wound No No -Current Size (cm) - Length 3.4 9 -Current Size (cm) - Width 0.8 0.7 -Current Size (cm) - Depth 0.4 0.2 -Total Square Cm 2.72 6.3 -Date of Last Picture (Recall this 08/13/22 09/10/22 field) -Photo Taken Yes Yes -Epithelialization None Present Small 1-33% -Tunneling No No -Undermining/Tunneling No No -Circular Undermining No No -Exudate Amt Medium Medium -Exudate Type Serosanguineous Serosanguineous -Wound Margin Thickened Distinct, Outline Attached -Granulation Amt Large (67-100%) Large (67-100%) -Granulation Quality Red Red -Slough/Fibrin Yes Yes -Necrosis Amt Small (1-33%) Small (1-33%) -Necrotic Tissue Type Adherent Slough Adherent Slough -Texture (Abimbola-wound Skin Appearance) Assessed, Assessed, Scarring Scarring -Moisture (Abimbola-wound Skin Appearance) Assessed Assessed, Maceration -Color (Abimbola-wound Skin Appearance) Assessed Assessed, Erythema -Temperature (Abimbola-wound Skin No Abnormality No Abnormality Appearance) (Pt Warm) (Pt Warm) -Tenderness on Palpation (Abimbola-wound No No Skin Appearance) -Ulcer Cleansing Soap and Water Rinsed/ Irrigated with Saline -Foul Odor after Cleansing No No -Anesthetic Used 5% Lidocaine 5% Lidocaine Gel Gel WC - Nurse 2 - General Ulcer CM Notes Start: 08/13/22 08:37 Freq: Status: Active Protocol: Activity Type Activity Date Activity User E-sign Co-sign Detail Recorded Client Recorded Date Recorded By Document 08/13/22 09:05 [id number] 08/13/22 09:08 Document 09/10/22 09:03 [id number] 09/10/22 09:06 08/13/22 09/10/22 09:05 09:03 Wound Center Nurse 2 #5scrotum/R Groin Cluster -Time 09:05 09:05 -Correct Patient Yes Yes -Correct Side, Site, Position Yes Yes -Correct Procedure Yes Yes -Procedure Performed Yes Yes -Type of Procedure Debridement Debridement -Clinical Debridement Subcutaneous Subcutaneous -Tissue Removed Subcutaneous Subcutaneous -Post Debridement (cm) - Length 3.2 4.2 -Post Debridement (cm) - Width 0.9 0.8 -Post Debridement (cm) - Depth 0.2 0.2 -Total Square (Post) (cm) 2.88 3.36 -Area of Debridement (cm) - Length 3.2 4.2 -Area of Debridement (cm) - Width 0.9 0.8 -Total Square (Area) (cm) 2.88 3.36 -Tunneling No No -Undermining/Tunneling No No -Circular Undermining No No -Wound/Ulcer Outcome Not Healed Not Healed -Ulcer Cleansing Rinsed/ Rinsed/ Irrigated with Irrigated with Saline Saline -Foul Odor after Cleansing No No -Bioengineered Tissue No No -Bleeding Controlled with Pressure Pressure -Treatment Response Procedure Procedure Tolerated Well Tolerated Well -Offloading No No -Debridement - Subq, 1st 20sq cm Yes Yes Pain Scale: 0-10 Numeric Is Patient Pain Free? Yes Yes WC - Nurse 3 - General Ulcer D/C NN Start: 08/13/22 08:37 Freq: Status: Active Protocol: Activity Type Activity Date Activity User E-sign Co-sign Detail Recorded Client Recorded Date Recorded By Document 08/13/22 09:12 [id number] 08/13/22 09:13 Document 09/10/22 09:19 [id number] 09/10/22 09:19 08/13/22 09/10/22 09:12 09:19 Wound Care Center Nurse 3 #5scrotum/R Groin Cluster -Ulcer Cleansing Rinsed/ Rinsed/ Irrigated with Irrigated with Saline Saline -Foul Odor after Cleansing No No -Primary Dressing Applied Aquacel AG 2x2 Aquacel AG 4x4 -Primary Dressing Covered/Secured with Dry Gauze Dry Gauze -Other Covering ABD pad -Aquacel AG 2x2 1 -Aquacel AG 4x4 1 Pain Scale: 0-10 Numeric Is Patient Pain Free? Yes Yes WC - Visit Discharge Discharge Condition Stable Stable Ambulatory Status Ambulatory Ambulatory Transportation Private Auto Private Auto Medication Reconcilliation completed & Yes provided to patient/care provider Clinical Summary of Care Provided Yes Assessment/Plan Assessment/Plan (1) Ulcer of right groin with fat layer exposed: CODE(S): L98.492 - Non-pressure chronic ulcer of skin of other sites with fat layer exposed (2) Ulcer of scrotum: CODE(S): N50.89 - Other specified disorders of the male genital organs (3) Ulcer of perineum with fat layer exposed: CODE(S): L98.492 - Non-pressure chronic ulcer of skin of other sites with fat layer exposed (4) Suppurative hidradenitis: CODE(S): L73.2 - Hidradenitis suppurativa (5) Smoker: CODE(S): F17.200 - Nicotine dependence, unspecified, uncomplicated (6) Hypertension: CODE(S): I10 - Essential (primary) hypertension QUALIFIERS: Hypertension type: primary hypertension Qualified Code(s): I10 - Essential (primary) hypertension (7) Diabetes type 2, uncontrolled: CODE(S): E11.65 - Type 2 diabetes mellitus with hyperglycemia QUALIFIERS: Glycemic state: with hyperglycemia Qualified Code(s): E11.65 - Type 2 diabetes mellitus with hyperglycemia (8) Hemoglobin A1c greater than 8.0 percent: CODE(S): R73.09 - Other abnormal glucose (9) Post-operative pain: CODE(S): G89.18 - Other acute postprocedural pain PLAN: Plan Patient was evaluated at the wound healing center. Wound care - Right groin ulcer cluster is moistened Aquacel-Ag covered by gauze/ABD daily and prn to right groin.They are not packing into the tunnel at this time. Operative wound cultures from 11/23/21 positive for Streptococcus constellatus and Corynebacterium striatum. He completed Cefdinir. Creatinine repeat on 11/27/21, which was down to 1.62 from 1.73 on 11/25/21. Also, repeat K+ 4.0. Patient is on his Plavix. Left ischial ulcer wound culture obtained 02/14/21 which was positive for Corynebacterium striatum which is not typically treated with antibiotics. Encouraged increase protein intake and increase Vitamin C intake. Will need supplemental protein to help heal this wound. Encouraged patient to stop smoking as it may have deleterious effects on wound healing. Patient sees dermatology who is managing the medical portion of his hidradenitis. He is going to be scheduled to have debridement of the hidradenitis on his left ischial area in a few months. Follow up 2 weeks. Call or come in sooner if develop any questions or concerns.
== END 2022-09-10 23:59 | disposition home or self-care (01) ==
LOC: WC 08:45
PROVIDERS: PCP Nurse Practitioner; Referring Provider Nurse Practitioner Family; Visit Provider Nurse Practitioner Family
DX: L73.2 Hidradenitis suppurativa (principal); E11.622 Type 2 diabetes mellitus with other skin ulcer; L98.492 Non-pressure chronic ulcer of skin of other sites with fat layer exposed; I25.10 Atherosclerotic heart disease of native coronary artery without angina pectoris; I10 Essential (primary) hypertension; N50.89 Other specified disorders of the male genital organs; F17.200 Nicotine dependence, unspecified, uncomplicated
CPT/HCPCS: 11042

== ENCOUNTER → 2022-10-01 | Outpatient (CLI) | payer MEDICARE, BC, SELFPAY ==
[2022-10-01 22:32] LABS: Absolute Neutrophil Count 9.4 X10^3/uL (2.0-7.7); Basophil# 0.09 X10^3/uL; Basophil% 0.6 % (0-1); Eosinophil# 0.16 X10^3/uL; Eosinophils% 1.1 % (0-5); Hematocrit 32.7 % (40-54); Lymphocyte % 27.9 % (19-41); Mean Corp Hgb Conc 30.6 g/dL (32-36); Mean Corpuscular Hgb 27.4 pg (27.0-32.0); Mean Corpuscular Volume 89.6 fL (80-94); Mean Platelet Vol. 9.7 fl (6.2-12.0); Monocyte# 0.85 X10^3/uL; Monocyte% 5.8 % (0-10); NRBC Flagged by Analyzer 0 % (0-5); Neutrophil # 9.43 X10^3/uL (2.7-7.7); Platelet Count 381 K/mm3 (150-450); RBC Distribution Width CV 15.3 % (11.6-14.6); Red Blood Count 3.65 M/mm3 (4.6-6.2); White Blood Count 14.7 K/mm3 (4.4-11.0)
[2022-10-01 22:54] LABS: ALB/GLOB Ratio 0.6 RATIO (0.9-2.4); AST(SGOT) 25 U/L (15-37); Alanine Aminotransfer ALT/SGPT 22 U/L (16-61); Albumin, Serum 2.9 g/dL (3.2-5.0); Alkaline Phosphatase 128 U/L (45-117); Anion Gap 4 (5-15); BUN 37 mg/dL (7-18); BUN/Creat Ratio 11.3 RATIO (10-20); Calcium,Total 8.6 mg/dL (8.5-10.1); Chloride 111 mmol/L (98-107); Creatinine, Serum 3.27 mg/dL (0.70-1.30); EST Glomerular Filtration Rate 21 mL/min (>60); Est Glom Filt Rate - Afr Amer 25 mL/min (>60); Globulin 4.8 g/dL (2.2-4.2); Glucose 115 mg/dL (74-106); Potassium 4.9 mmol/L (3.5-5.1); Protein, Total 7.7 g/dL (6.4-8.2); Sodium Level 137 mmol/L (136-145)
[2022-10-01 22:57] LABS: BNP,B-Type NATRIURETIC PEPTIDE 85.3 pg/mL (0-100)
== END | disposition home or self-care (01) ==
PROVIDERS: PCP Nurse Practitioner; Visit Provider Nurse Practitioner
DX: E11.9 Type 2 diabetes mellitus without complications (principal); E87.6 Hypokalemia; R05.9 Cough, unspecified; R63.5 Abnormal weight gain; R60.9 Edema, unspecified
CPT/HCPCS: 80053; 83880; 85025; 86141

== ENCOUNTER 2022-10-02 11:37 | Inpatient (IN) | payer BC, MEDICARE, SELFPAY ==
[2022-10-02] VITALS (12 sets, daily range): BP systolic 116–209; BP diastolic 61–106; PULSE 63–88; RESP 15–23; TEMP 36.3–36.9; O2SAT 95–98; BMI 24.9; BMI 24.3
--- NOTE | 2022-10-02 12:09 | CT_ITS ---
INDICATION: Pain EXAMINATION: CT ABDOMEN AND PELVIS WITHOUT CONTRAST - CT Abdomen And Pelvis W/O Contrast Injection TECHNIQUE: Helically acquired images were obtained of the abdomen and pelvis without oral or IV contrast. A radiation dose optimization technique was used for this scan. IV Contrast dosage and agent: None. Oral contrast: None. COMPARISON: Pelvic MRI from November 24, 2021. FINDINGS: Lower thorax: Emphysematous changes. Scattered subsegmental atelectasis. Mild cardiomegaly. Liver: Diffuse hepatic steatosis. Otherwise, unremarkable unenhanced appearance. Gallbladder: Cholelithiasis. No CT findings of acute cholecystitis are suspected. No significant bile duct dilation. Spleen: Unremarkable unenhanced appearance. Pancreas: No abnormal duct dilation. No peripancreatic inflammatory stranding. Adrenal glands: Unremarkable. Kidneys: No nephrolithiasis or hydronephrosis. No obstructive uropathy along the course of the ureters. 1.6 cm left lower pole cortical simple cyst. Bladder: Unremarkable unenhanced appearance. GI tract: Left lower quadrant colostomy. There is acute pericolonic inflammatory stranding around a few of the diverticula in the large bowel within the colostomy hernia sac. No significant bowel dilation to suggest obstruction. Small hiatal hernia. Normal appendix. Peritoneum/mesentery/retroperitoneum: No free air or free fluid. No masses or lymphadenopathy although assessment is limited without IV contrast. Pelvis: No free air. Trace presacral edema. Likely reactive subcentimeter bilateral pelvic sidewall lymph nodes. No obvious masses or lymphadenopathy although assessment is limited without IV contrast. Vascular: Mild to moderate arterial atherosclerotic disease. No abdominal aortic or iliac aneurysm. Bones/soft tissues: There are 2 tubular soft tissue tracts in the bilateral gluteal folds, larger on the right compatible with patient''s known fistulous tracts and appear grossly similar to prior study. There is trace gas in the tract on the right. Assessment is otherwise limited without IV contrast. No acute fracture or subluxation. No destructive osseous lesions. CT/Abdomen/Pelvis without Cont IMPRESSION: 1. Acute diverticulitis involving the large bowel within the left lower quadrant colostomy hernia sac. 2. 2 tubular soft tissue tracts in the bilateral gluteal folds are compatible with patient''s known fistulous tracts.. There is trace gas in the tract on the right however, these appear grossly similar to prior study although assessment is limited without IV contrast. 3. Cholelithiasis without CT findings of acute cholecystitis. 4. Diffuse hepatic steatosis. 5. Small hiatal hernia. Electronically Signed: Jose Alberto Ramsey DO at 13:45 EDT ,
--- NOTE | 2022-10-02 12:09 | EX.ED.DYSGE1 ---
HPI History of Present Illness Chief Complaint: Abn Labs Narrative Narrative: 57-year-old male past medical history of hidradenitis suppurativa has had multiple surgeries by Dr. Smith because of perineal and buttocks abscesses, and removal of his sweat glands from his bilateral groin. His last surgery was in November of last year. He presents because he thought maybe he had an infection of one of the areas in his pelvis. He denies any fevers or chills but states he has had increased pain. They went and saw his primary care provider yesterday, and had blood work drawn. He and his states that they received a call today with concern that he may have an infection because he has an elevated white count of 14,000, and additionally his kidneys are failing as his creatinine has increased to above 3. He does have past medical history of hypertension and has had elevated blood pressures recently which they thought was secondary to pain. [facility] Medical History Abscess of buttock, left Abscess of left thigh Abscess of right groin Abscess of scrotal wall Abscess, perineum Acute blood loss anemia Alcohol use Anemia Anemia of chronic disease Back pain Back pain due to injury Colostomy in place Complete edentulism, class III Complicated open wound of left thigh COPD (chronic obstructive pulmonary disease) Coronary artery disease Diabetes Diabetes mellitus type 2, uncontrolled, with complications Diabetes type 2, uncontrolled Dietary restriction DM type 2, goal HbA1c < 7.5% Gastric reflux Hemoglobin A1c greater than 8.0 percent Hidradenitis suppurativa of anus History of edema History of pain when walking History of stress test History of ulceration Hydradenitis Hydradenitis Hyperlipidemia associated with type 2 diabetes mellitus Hypertension Lupus (systemic lupus erythematosus) Malnutrition Non-healing open wound of right groin Open wound of buttock with complication Open wound of left buttock with complication Open wound of scrotum Open wound of scrotum with complication Pain in the groin Shingles Shortness of breath on exertion Skin ulcer of scrotum Smoker Suppurative hidradenitis Ulcer of left groin with fat layer exposed Ulcer of perineum with fat layer exposed Home Medications tramadol 50 mg tablet 100 mg (2 x 50 mg) PO TID PRN pain (scale score 7-10) 30 days #180 tabs 03/28/21 [Rx Last Taken Unknown] amlodipine 10 mg tablet 10 mg PO DAILY BP #30 tabs 11/06/21 [Rx Last Taken 10/02/22] lisinopril 40 mg tablet 40 mg PO DAILY Blood pressure #30 tabs 11/06/21 [Rx Last Taken 10/02/22] clopidogrel 75 mg tablet 75 mg PO DAILY blood thinner #30 tabs 01/25/22 [Rx Last Taken 10/02/22] guselkumab 100 mg/mL subcutaneous syringe (Tremfya) 100 mg subcut Q4W 04/23/22 [History Last Taken 09/26/22] clarithromycin 500 mg tablet 500 mg PO BID #28 tabs 10/01/22 [Rx Last Taken Unknown] metoprolol succinate 25 mg tablet,extended release 24 hr 25 mg PO QDAY #30 tabs 10/01/22 [Rx Last Taken Unknown] oxybutynin chloride 5 mg tablet,extended release 24 hr 5 mg PO DAILY 10/01/22 [History Last Taken 10/02/22] prednisone 20 mg tablet 40 mg (2 x 20 mg) PO DAILY 10 days #20 tabs 10/01/22 [Rx Last Taken Unknown] Allergy/AdvReac Type Severity Reaction Status Date / Time Penicillins Allergy Unknown Verified 10/02/22 11:41 Sulfa (Sulfonamide Allergy Unknown Verified 10/02/22 11:41 Antibiotics) bupropion [From Wellbutrin] AdvReac Severe change in Verified 10/02/22 11:41 personality ,meanness and smoked more Family History Aunt Lung disease lung cancer Father Heart disease Hypertension Family history of high cholesterol Diabetes Mother Diabetes Daughter Epilepsy Surgical History History of coronary artery stent placement History of incision and drainage History of removal of cyst History of tonsillectomy and adenoidectomy Hx of hernia repair Stented coronary artery Social History household members: spouse Smoking Status: Current every day smoker tobacco type: cigarettes counseling given: provider counseling alcohol intake: never substance use type: does not use additional social history: DOES NOT TAKE ASPIRIN DOES NOT TAKE IBUPROFEN ROS ROS ED ROS Narrative Constitutional: No fever, no chills. HEENT: No sore throat. No neck pain. No loss of vision. No rhinorrhea. Cardiovascular: No chest pain. No palpitations. No pedal edema. Respiratory: No cough, no shortness of breath. Abdominal: No abdominal pain. No nausea. No vomiting. Genitourinary: No dysuria. No hematuria. Positive pelvic pain from chronic open wounds of buttocks and perineum. Musculoskeletal: No myalgias. No arthralgias. Neurologic: No headaches. No dizziness. No lightheadedness. Skin: No rash. No change in color. Psychiatric: No depression. No anxiety. EXAM Physical Exam Narrative Exam Narrative: Afebrile. Vital signs noted. HEENT: Normocephalic. Atraumatic. PERRL, EOMI. Neck soft and supple. No point tenderness or step off. Cardiovascular: Regular rate and rhythm. No murmurs, rubs, or gallops appreciated. Respiratory: No tachypnea. Lungs clear to auscultation bilaterally. Gastrointestinal: Abdomen soft, nontender, with normoactive bowel sounds. No rebound or guarding. Positive colostomy with fecal matter and air in bag, not erythematous. Neurological: Awake. Alert. Nonfocal, nonlateralizing. Skin: No rash. Normal color. No pallor. Chronic open wound of buttocks and perineum without overt erythema or purulent drainage. Healing open wounds bilateral inguinal area without erythema or fluctuance. Musculoskeletal: No pedal edema. Full range of motion extremities. Const Vital Signs: 10/02/22 11:39 10/02/22 12:16 10/02/22 13:07 Temperature 97.8 F 98.0 F Temperature Source Temporal Temporal Pulse Rate 88 64 Respiratory Rate 18 18 Respiratory Effort Normal Non-Labored Respiratory Pattern Normal Blood Pressure 199/78 H 176/75 H Blood Pressure Mean 118 108 Pulse Ox 97 98 Oxygen Delivery Method Room Air Room Air 10/02/22 13:16 Temperature 98.1 F Temperature Source Temporal Pulse Rate 63 Respiratory Rate 15 Respiratory Effort Respiratory Pattern Blood Pressure 179/69 H Blood Pressure Mean 105 Pulse Ox 97 Oxygen Delivery Method Room Air MDM MDM MDM Narrative Medical decision making narrative: I reviewed the patient's laboratory work from yesterday. He does have an elevated white count of 14,000. I do think that this is nonspecific but will be repeated. Additionally, he has an elevated creatinine of 3.2. I do think that he may be having an acute kidney injury secondary to longstanding hypertension and reported diabetes. He will be bolused normal saline 1 L intravenously. I do feel that CT of the abdomen and pelvis will be warranted just to look for fluid collection, but IV contrast cannot be administered secondary to his acute kidney injury. He was administered morphine for analgesia. He will be bolused normal saline to help with his elevated creatinine which will also be repeated and a CMP. I reviewed his CBC and his white count has come down to 11.2 from 14 yesterday. Platelet count normal at 295, hemoglobin stable at 9.8. Review of his CMP shows his potassium is slightly elevated at 5.2 with a BUN of 36 and a creatinine lower at 2.83 today down from 3.2. Lactic acid is normal at 0.65 low concern for sepsis or infection. Based on his clinical examination I do think that he has more chronic wounds that any acute wounds. CT of the abdomen and pelvis without contrast secondary to his elevated creatinine was obtained and I reviewed the radiology report which while it shows acute diverticulitis in the left lower quadrant, it shows chronic fistula I with no acute fluid collection. I discussed the patient with Dr. Mojica. He will be treated with IV antibiotics for his diverticulitis, and Dr. Mojica stated that he would enter those. Given his hyperkalemia and acute on chronic kidney injury he will be placed on observation in the PCU. Additionally, the hospitalist did want a chest x-ray and COVID/influenza swab obtained as he reported to him that the patient has been coughing for few weeks. At this point in time, I do feel that he can be placed on observation in the PCU in stable condition. I do not feel that he needs a hyperkalemia treatment for slightly elevated potassium of 5.2. Disposition is assigned to observation. Patient is in stable condition. History & Record Review Discussion w/independent historian: Patient and Family Additional record(s) reviewed:: Prior ED visit and Prior labs Lab Data Attestation: I reviewed the patient's lab results. Labs: Laboratory Results - last 24 hr 10/02/22 12:45 WBC 11.2 H RBC 3.46 L Hgb 9.8 L Hct 30.2 L MCV 87.3 MCH 28.3 MCHC 32.5 D RDW Std Deviation 48.3 H RDW Coeff of Dana 15.3 H Plt Count 295 MPV 9.3 Immature Gran % (Auto) 0.400 Neut % (Auto) 69.2 Lymph % (Auto) 22.1 Mora % (Auto) 6.1 Eos % (Auto) 1.7 Baso % (Auto) 0.5 Absolute Neuts (auto) 7.7 Absolute Lymphs (auto) 2.46 Nucleated RBC % 0 Sodium 140 Potassium 5.2 H Chloride 110 H Carbon Dioxide 23.0 Anion Gap 7 BUN 36 H Creatinine 2.83 H Estim Creat Clear Calc 27.19 Est GFR (MDRD) Af Amer 30 L Est GFR (MDRD) Non-Af 25 L BUN/Creatinine Ratio 12.7 Glucose 139 H Lactic Acid 0.6 Calcium 8.5 Total Bilirubin 0.20 AST 19 ALT 20 Alkaline Phosphatase 125 H Total Protein 7.2 Albumin 2.7 L Globulin 4.5 H Albumin/Globulin Ratio 0.6 L Radiography Diagnostic Testing: Clinical Impression(s) from Imaging Studies Abdomen/Pelvis CT 10/02/22 12:09 IMPRESSION: 1. Acute diverticulitis involving the large bowel within the left lower quadrant colostomy hernia sac. 2. 2 tubular soft tissue tracts in the bilateral gluteal folds are compatible with patient''s known fistulous tracts.. There is trace gas in the tract on the right however, these appear grossly similar to prior study although assessment is limited without IV contrast. 3. Cholelithiasis without CT findings of acute cholecystitis. 4. Diffuse hepatic steatosis. 5. Small hiatal hernia. Electronically Signed: Jose Alberto Ramsey DO at 13:45 EDT , Discharge Plan Dx/Rx/DC Orders Clinical Impression: Diverticulitis, Acute kidney injury superimposed on chronic kidney disease, Hyperkalemia, Diabetes mellitus type 2, uncontrolled, with complications, Open wound of buttock with complication, Open wound of left buttock with complication, Hypertension Disposition Disposition: [facility]
[2022-10-02] MEDS: 0.9% Normal Saline 1,000 ML 1000 ML IV (12:41)
[2022-10-02] MEDS: Morphine 4 MG/ML Syringe IV (12:42)
[2022-10-02 13:06] LABS: Absolute Lymphocyte Count 2.46 X10^3/uL (0.83-4.51); Absolute Neutrophil Count 7.7 X10^3/uL (2.0-7.7); Basophil# 0.06 X10^3/uL; Basophil% 0.5 % (0-1); Eosinophil# 0.19 X10^3/uL; Eosinophils% 1.7 % (0-5); Hematocrit 30.2 % (40-54); Hemoglobin 9.8 g/dL (13.0-16.5); Lymphocyte # 2.46 X10^3/ul (0.83-4.51); Lymphocyte % 22.1 % (19-41); Mean Corp Hgb Conc 32.5 g/dL (32-36); Mean Corpuscular Hgb 28.3 pg (27.0-32.0); Mean Corpuscular Volume 87.3 fL (80-94); Mean Platelet Vol. 9.3 fl (6.2-12.0); Monocyte# 0.68 X10^3/uL; Monocyte% 6.1 % (0-10); NRBC Flagged by Analyzer 0 % (0-5); Neutrophil # 7.71 X10^3/uL (2.7-7.7); Neutrophil % 69.2 % (47-70); Platelet Count 295 K/mm3 (150-450); RBC Distribution Width CV 15.3 % (11.6-14.6); RBC Distribution Width SD 48.3 fl (35.1-43.9); Red Blood Count 3.46 M/mm3 (4.6-6.2); White Blood Count 11.2 K/mm3 (4.4-11.0)
[2022-10-02 13:12] LABS: Differential Indicated SCAN CRITERIA MET
[2022-10-02 13:16] LABS: Lactic Acid 0.6 mmol/L (0.4-1.9)
[2022-10-02 13:20] LABS: ALB/GLOB Ratio 0.6 RATIO (0.9-2.4); AST(SGOT) 19 U/L (15-37); Alanine Aminotransfer ALT/SGPT 20 U/L (16-61); Albumin, Serum 2.7 g/dL (3.2-5.0); Alkaline Phosphatase 125 U/L (45-117); Anion Gap 7 (5-15); BUN 36 mg/dL (7-18); BUN/Creat Ratio 12.7 RATIO (10-20); Calcium,Total 8.5 mg/dL (8.5-10.1); Chloride 110 mmol/L (98-107); Creatinine, Serum 2.83 mg/dL (0.70-1.30); EST Glomerular Filtration Rate 25 mL/min (>60); Est Glom Filt Rate - Afr Amer 30 mL/min (>60); Estimated Creatinine Clearance 27.19 ml/min; Globulin 4.5 g/dL (2.2-4.2); Glucose 139 mg/dL (74-106); Potassium 5.2 mmol/L (3.5-5.1); Protein, Total 7.2 g/dL (6.4-8.2); Sodium Level 140 mmol/L (136-145)
--- NOTE | 2022-10-02 13:53 | CM.ED ---
Social Work SW performed chart review, patient has LW and HCPOA documents on file as of 2020. Patient's HCPOA is his spouse, Shima and alternates are patient's step sons Gabe and Vinh. No special instructions on either document. Shira Smith MSW, BERNADETTE
--- NOTE | 2022-10-02 14:04 | RAD_ITS ---
STUDY: X-RAY CHEST REASON FOR EXAM: Male, 57 years old. Cough. TECHNIQUE: Single frontal view of the chest. COMPARISON: Chest dated September 2020. FINDINGS: Cardiomegaly. Hyperinflation with patchy opacity in the left upper lobe and left lower lobe which is new since the prior study. Findings most likely represent atelectasis. However, early/developing pneumonia cannot be excluded. Follow-up chest imaging to resolution recommended. No abnormality of the visualized soft tissue structures of the upper abdomen. RAD/Chest 1 View (Portable) IMPRESSION: Cardiomegaly with hyperinflation and patchy opacities as described, representing atelectasis or early/developing pneumonia. Follow-up chest imaging to resolution recommended. Electronically Signed: Ministerio Gutierrez MD at 14:45 EDT ,
--- NOTE | 2022-10-02 14:27 | EKG12_ITS ---
Test Reason : POST ADMIT Blood Pressure : / mmHG Vent. Rate : 064 BPM Atrial Rate : 064 BPM P-R Int : 124 ms QRS Dur : 084 ms QT Int : 414 ms P-R-T Axes : 000 063 144 degrees QTc Int : 427 ms Normal sinus rhythm Left ventricular hypertrophy with repolarization abnormality ( Sokolow-White ) Cannot rule out Septal infarct , age undetermined Abnormal ECG When compared with ECG of 29-SEP-2020 07:35, T wave inversion more evident in Lateral leads Confirmed by NOE RODRIGUEZ, STELLA ([id number]), pictures editor QASIM JUAN ([id number]) on 11/21/2022 10:28:57 AM Referred By: BARON Confirmed By:STELLA LIU MD
--- NOTE | 2022-10-02 14:28 | HP.PCM.HOS_ITS ---
HPI - General General Date of Admission: 10/02/22 Date of Service: 10/02/22 Chief Complaint: Abnormal labs, seen by PCP but found to have abdominal pain, diverticulitis and cough, sputum production possible COPD exacerbation HPI Narrative SVEN DUONG, is a 57 M who with multiple comorbidities was sent to ED by PCP for abnormal labs, elevated creatinine, NATHANIEL on CKD. Patient follows Dr. Smith for protracted history of bilateral groin hidradenitis, perineal and buttock abscesses and had multiple surgeries in the past last 1 in November last and is scheduled for next November 2022. He has mild serous drainage from the perineal regions. He has left lower colostomy with prolapse/herniated stoma. No active bleeding or ulceration of bowel loops. He also has mild left upper quadrant abdominal pain and feels pain over left lower ribs. Mild to moderate cough with the sputum production last 2 to 3 weeks but denies shortness of breath at rest or fever. He is not vaccinated with COVID and was told that he is immunocompromised as a reason for not vaccination. Denies burning micturition or any acute issues lower urinary tracts. Urine is clear in the ER. Patient also has high blood pressure at home, ranges between 1 70-200 systolic at home. BP in ED 199/78, heart rate 88 but no hypoxia or tachypnea. Has elevated creatinine 3.2 yesterday. In ED his creatinine 2.83. Had 1 L of normal saline in ED and further admitted. [facility] Medical History Abscess of buttock, left Abscess of left thigh Abscess of right groin Abscess of scrotal wall Abscess, perineum Acute blood loss anemia Alcohol use Anemia Anemia of chronic disease Back pain Back pain due to injury Colostomy in place Complete edentulism, class III Complicated open wound of left thigh COPD (chronic obstructive pulmonary disease) Coronary artery disease Diabetes Diabetes mellitus type 2, uncontrolled, with complications Diabetes type 2, uncontrolled Dietary restriction DM type 2, goal HbA1c < 7.5% Gastric reflux Hemoglobin A1c greater than 8.0 percent Hidradenitis suppurativa of anus History of edema History of pain when walking History of stress test History of ulceration Hydradenitis Hydradenitis Hyperlipidemia associated with type 2 diabetes mellitus Hypertension Lupus (systemic lupus erythematosus) Malnutrition Non-healing open wound of right groin Open wound of buttock with complication Open wound of left buttock with complication Open wound of scrotum Open wound of scrotum with complication Pain in the groin Shingles Shortness of breath on exertion Skin ulcer of scrotum Smoker Suppurative hidradenitis Ulcer of left groin with fat layer exposed Ulcer of perineum with fat layer exposed Home Medications tramadol 50 mg tablet 100 mg (2 x 50 mg) PO TID PRN pain (scale score 7-10) 30 days #180 tabs 03/28/21 [Rx Last Taken Unknown] amlodipine 10 mg tablet 10 mg PO DAILY BLOOD PRESSURE #30 tabs 11/06/21 [Rx Last Taken 10/02/22] lisinopril 40 mg tablet 40 mg PO DAILY BLOOD PRESSURE #30 tabs 11/06/21 [Rx Last Taken 10/02/22] clopidogrel 75 mg tablet 75 mg PO DAILY BLOOD THINNER #30 tabs 01/25/22 [Rx Last Taken 10/02/22] guselkumab 100 mg/mL subcutaneous syringe ([employer] 100 mg subcut Q4W ARTHRITIS 04/23/22 [History Last Taken 09/26/22] clarithromycin 500 mg tablet 500 mg PO BID ANTIBIOTIC #28 tabs 10/01/22 [Rx Last Taken Unknown] oxybutynin chloride 5 mg tablet,extended release 24 hr 5 mg PO DAILY OVERACTIVE BLADDER 10/01/22 [History Last Taken 10/02/22] prednisone 20 mg tablet 40 mg (2 x 20 mg) PO DAILY STEROID 10 days #20 tabs 10/01/22 [Rx Last Taken Unknown] metoprolol succinate 25 mg tablet,extended release 24 hr 25 mg PO DAILY BLOOD PRESSURE 10/02/22 [History Last Taken Unknown] Allergy/AdvReac Type Severity Reaction Status Date / Time Penicillins Allergy Unknown Verified 10/02/22 11:41 Sulfa (Sulfonamide Allergy Unknown Verified 10/02/22 11:41 Antibiotics) bupropion [From Wellbutrin] AdvReac Severe change in Verified 10/02/22 11:41 personality ,meanness and smoked more Family History Aunt Lung disease lung cancer Father Heart disease Hypertension Family history of high cholesterol Diabetes Mother Diabetes Daughter Epilepsy Surgical History History of coronary artery stent placement History of incision and drainage History of removal of cyst History of tonsillectomy and adenoidectomy Hx of hernia repair Stented coronary artery Social History household members: spouse Smoking Status: Current every day smoker tobacco type: cigarettes counseling given: provider counseling alcohol intake: never substance use type: does not use additional social history: DOES NOT TAKE ASPIRIN DOES NOT TAKE IBUPROFEN ROS ROS Narrative Constitutional: Reports fatigue and weakness. No fever. HEENT: Reports systems reviewed and no addt'l complaints, except as documented Respiratory/Chest: Subacute cough worsening for 2 to 3 weeks. History of COPD. Not on oxygen. No acute shortness of breath or respiratory distress or wheezing. CVS: No chest pain or pressure. Gastrointestinal: Denies coffee ground emesis, hematemesis or vomiting Genitourinary: Denies burning urination or new urinary tract symptoms Musculoskeletal: Denies acute joint pain or limited range of motion. No acute injury Neurologic: Denies seizure-like symptoms. skin: No ulcer. No rash Endocrinology: Reports systems reviewed and no addt'l complaints, except as d ocumented Hematologic/Lymphatic: Reports systems reviewed and no addt'l complaints, except as documented Rest 14 ROS are negative except as mentioned in HPI Vital Signs Vital Signs Vital Signs: 10/02/22 11:39 10/02/22 12:16 10/02/22 13:07 Temperature 97.8 F 98.0 F Temperature Source Temporal Temporal Pulse Rate 88 64 Respiratory Rate 18 18 Respiratory Effort Normal Non-Labored Respiratory Pattern Normal Blood Pressure 199/78 H 176/75 H Blood Pressure Mean 118 108 Pulse Ox 97 98 Oxygen Delivery Method Room Air Room Air 10/02/22 13:16 Temperature 98.1 F Temperature Source Temporal Pulse Rate 63 Respiratory Rate 15 Respiratory Effort Respiratory Pattern Blood Pressure 179/69 H Blood Pressure Mean 105 Pulse Ox 97 Oxygen Delivery Method Room Air Weight Weight: 164 lb Body Mass Index (BMI) 24.9 Physical Exam Narrative General: Alert, Oriented x3, Cooperative HEENT: Atraumatic, PERRLA, EOMI, Normocephalic Oral: Oral mucosa dry. No Gingival or Mucosal Lesions/ Ulcerations Neck: Supple, No JVD, Negative Carotid Bruits Lungs: Air entry diminished in bilateral lung bases. Bilateral coarse expiratory rhonchi on coughing. No hypoxia or tachypnea. No dyspnea at rest. Cardiovascular: Regular rate, Regular Rhythm, Normal S1, Normal S2, No murmurs Abdomen: Colostomy present left lower quadrant. Colostomy prolapse/herniation. No acute bleeding in colostomy bag. Tenderness over left upper quadrant, around colostomy and left lower ribs. Bowel Sounds Present, Soft, Non-Distended : No renal angle tenderness. No suprapubic tenderness. Extremities: No edema, Capillary Refill Less than 3 Seconds Skin: No rashes, No breakdown Musculoskeletal: No Tenderness to Palpation of Joints or Extremities. ROM intact. Mild to moderate atrophy of thigh muscles. Muscle strength 4/5 at major joints of lower extremities Neurological: Cranial nerves II-XII grossly intact, DTR 2+/4. No acute focal neurological deficit. Psych/Mental Status: Normal Affect, Appropriate. Results Lab / Micro Data 10/02/22 12:45 10/02/22 12:45 Labs: Laboratory Results - last 24 hr 10/02/22 12:45: WBC 11.2 H, RBC 3.46 L, Hgb 9.8 L, Hct 30.2 L, MCV 87.3, MCH 28.3, MCHC 32.5 D, RDW Std Deviation 48.3 H, RDW Coeff of Dana 15.3 H, Plt Count 295, MPV 9.3, Immature Gran % (Auto) 0.400, Neut % (Auto) 69.2, Lymph % (Auto) 22.1, [place] % (Auto) 6.1, Eos % (Auto) 1.7, Baso % (Auto) 0.5, Absolute Neuts (auto) 7.7, Absolute Lymphs (auto) 2.46, Nucleated RBC % 0, Sodium 140, Potassium 5.2 H, Chloride 110 H, Carbon Dioxide 23.0, Anion Gap 7, BUN 36 H, Creatinine 2.83 H, Estim Creat Clear Calc 27.19, Est GFR (MDRD) Af Amer 30 L, Est GFR (MDRD) Non-Af 25 L, BUN/Creatinine Ratio 12.7, Glucose 139 H, Lactic Acid 0.6, Calcium 8.5, Total Bilirubin 0.20, AST 19, ALT 20, Alkaline Phosphatase 125 H, Total Protein 7.2, Albumin 2.7 L, Globulin 4.5 H, Albumin/Globulin Ratio 0.6 L Radiology Impression Abdomen/Pelvis CT 10/02/22 12:09 IMPRESSION: 1. Acute diverticulitis involving the large bowel within the left lower quadrant colostomy hernia sac. 2. 2 tubular soft tissue tracts in the bilateral gluteal folds are compatible with patient''s known fistulous tracts.. There is trace gas in the tract on the right however, these appear grossly similar to prior study although assessment is limited without IV contrast. 3. Cholelithiasis without CT findings of acute cholecystitis. 4. Diffuse hepatic steatosis. 5. Small hiatal hernia. Electronically Signed: Jose Alberto Ramsey DO at 13:45 EDT , Assessment & Plan Assessment/Plan (1) Acute kidney injury superimposed on chronic kidney disease: (2) Hyperkalemia: (3) Diverticulitis: PLAN: Plan Patient is admitted for NATHANIEL on CKD, but found to have abdominal pain, divertic ulitis and cough, sputum production possible COPD exacerbation 1. Acute kidney injury on CKD stage III, mild hyperkalemia possibly due to uncontrolled hypertensive nephropathy: Patient estimated creatinine clearance was about 45 mill per minute in November 2021. BUN/creatinine 37/3.27 on 10/01, today 36/2.83. Patient is being admitted to [facility] floor. Criminal Intelligence Specialist is consulted. Urine is clear and patient does not have acute lower [place] tract symptoms including dysuria. UA with reflex urine culture ordered. Potassium 5.2. Twelve-lead EKG ordered. CT abdomen shows no nephrolithiasis or hy dronephrosis. No obstructive uropathy along course of ureter. 1.6 cm left lower pole possible simple cyst. Bladder unremarkable. Criminal Intelligence Specialist is consulted. Monitor urine output and electrolytes and kidney function daily. Avoid nephrotoxic medications, lisinopril held. 2. Acute left-sided colitis: CT abdomen unenhanced shows pericolonic inflammatory stranding around few diverticuli and large bowel within colostomy hernial sac. No obstruction. Normal appendix. Patient has a known allergy with penicillin but had multiple penicillin doses during his childhood. He denies having rash/hives or angioedema reaction. Patient had tolerated ceftriaxone during previous hospitalization, medication reviewed. Started on IV ceftriaxone and Flagyl. Stool for enteric bacteriology panel ordered. Colostomy bag has liquid stool. 3. Possible mild COPD exacerbation: Patient has moderate cough with sputum production, thick yellow phlegm for last 2 to 3 weeks and left lower rib pain. Portable chest x-ray done in ED reviewed shows interstitial markings and left lung base atelectasis but no acute consolidation. Bronchodilator, DuoNeb every 4 hourly, IV Solu-Medrol, Mucinex, incentive Felicitas Pep. Rapid COVID and flu antigen ordered. Sputum culture ordered. Urinary antigens and respiratory panel ordered. Patient will need pulmonary clinic follow-up for formal PFT 4. Uncontrolled hypertension: Patient on amlodipine. Lisinopril held. Hydralazine 10 mg IV Q4 hourly for systolic blood pressure more than 180 MAG. Her 20 over 50 mg 3 times daily ordered. 5. Chronic bilateral groin hidradenitis involving perineum and gluteal region: Patient had multiple surgical procedures last 1 in November 2022. Patient also had laparoscopic sigmoid diversion colostomy by Dr. Osorio on 09/29/2020. I consulted Dr. Smith for follow-up. Patient follows in wound center. No acute wound infection or increased drainage as per the patient. 6. Diabetes mellitus type 2 with mild hyperglycemia glucose 139. A1c ordered for tomorrow AM. Accu-Chek insulin coverage Humalog sliding scale. 7. Anemia of chronic disease: Hemoglobin is 9.8, platelet count 295. Monitor CBC. 8. Chronic smoker, nicotine dependence: Patient is smokes about 2 packs/day. Nicotine patch ordered. Counseled on cessation. 9.. DVT prophylaxis, high risk - On enoxaparin 30 mg daily. Discontinue if platelet count drops less than 50,000 or hemoglobin less than 8 g% Living will/advanced directive/end of life care: Patient does have living will or advanced directive. His is power of litigation attorney associate for health. After discussion of benefits/risks procedures involved with full code, DNR CC arrest and DNR CC, the patient opted for full code. Patient does want artificial life support including intubation, tube feed, ventilator and/chest compression, central venous catheter, vasopressor and DC shock if needed Total time spent in [id number] encounter in discussion of advanced directive 17 minutes. Laboratory Results 10/02/22 12:45: WBC 11.2 H, RBC 3.46 L, Hgb 9.8 L, Hct 30.2 L, MCV 87.3, MCH 28.3, MCHC 32.5 D, RDW Std Deviation 48.3 H, RDW Coeff of Dana 15.3 H, Plt Count 295, MPV 9.3, Immature Gran % (Auto) 0.400, Neut % (Auto) 69.2, Lymph % (Auto) 22.1, [place] % (Auto) 6.1, Eos % (Auto) 1.7, Baso % (Auto) 0.5, Absolute Neuts (auto) 7.7, Absolute Lymphs (auto) 2.46, Nucleated RBC % 0, Sodium 140, P otassium 5.2 H, Chloride 110 H, Carbon Dioxide 23.0, Anion Gap 7, BUN 36 H, Creatinine 2.83 H, Estim Creat Clear Calc 27.19, Est GFR (MDRD) Af Amer 30 L, Est GFR (MDRD) Non-Af 25 L, BUN/Creatinine Ratio 12.7, Glucose 139 H, Lactic Acid 0.6, Calcium 8.5, Total Bilirubin 0.20, AST 19, ALT 20, Alkaline Phosphatase 125 H, Total Protein 7.2, Albumin 2.7 L, Globulin 4.5 H, Albumin/Globulin Ratio 0.6 L Clinical Impression(s) from Imaging Studies Abdomen/Pelvis CT 10/02/22 12:09 IMPRESSION: 1. Acute diverticulitis involving the large bowel within the left lower quadrant colostomy hernia sac. 2. 2 tubular soft tissue tracts in the bilateral gluteal folds are compatible with patient''s known fistulous tracts.. There is trace gas in the tract on the right however, these appear grossly similar to prior study although assessment is limited without IV contrast. 3. Cholelithiasis without CT findings of acute cholecystitis. 4. Diffuse hepatic steatosis. 5. Small hiatal hernia. Charges/Coding Visit Charges Inpatient E&M: 00039 Init Hosp L3 Procedures Hospitalists Procedures: 66536 Advncd Care Plan 30 Min
[2022-10-02] MEDS: 0.9% Normal Saline 1,000 ML 75 ML IV (14:30)
[2022-10-02] MEDS: Methylprednisolone Sod Succ 40 MG/ML VIAL 60 MG IV (14:30)
--- NOTE | 2022-10-02 14:42 | NURSING ---
116 OBS BARON ACUTE ON CHRONIC KIDNEY INJURY, LEUKOCYTOSIS, HYPERKALEMIA
[2022-10-02 15:09] LABS: Magnesium 1.7 mg/dL (1.6-2.6); Phosphorus 4.8 mg/dL (2.5-4.9)
[2022-10-02] MEDS: Ceftriaxone 1 GM/50 ML BAG IV (16:45)
[2022-10-02] MEDS: metroNIDAZOLE 500 MG/100 ML BAG 100 MG IV ×2 (17:20→21:45)
[2022-10-02 17:32] LABS: Bacteria 0 SEEN /hpf (None Seen); Mucous, Urine 0 SEEN /hpf (<or=2+); Red Blood Cells-Urine 0 SEEN /hpf (0-5)
[2022-10-02 17:43] LABS: Color, Urine Yellow (Yellow); Glucose, Dipstick 50 mg/dl (Normal); Ketone-Dipstick Negative (Negative); Leukocyte Esterase-Dipstick Negative /ul (Negative); Nitrite-Dipstick Negative (Negative); Occult Blood-Urine 25 /ul (Negative); Protein-Dipstick 100 mg/dl (Negative); Urine Bilirubin Dipstick Negative (Negative); Urine Clarity Sl. Cloudy (Clear); Urine Urobilinogen Normal (Normal); Urine pH 6.5 (5.0 - 8.0)
[2022-10-02 17:56] LABS: Creatinine, Urine (random) < 13.00 mg/dL (NO RANGE EST.); Protein, Urine (Random) 138.4 mg/dL (<11.9); Urine Chloride 97 mmol/L (Not Establ.); Urine Sodium 92 mmol/L (Not Establ.)
[2022-10-02 18:45] LABS: Squamous Epithelial Cells - UA 0-5 SEEN /hpf (0-5); White Blood Cells 0-5 SEEN /hpf (0-5)
[2022-10-02] MEDS: Ipratropium/Albuterol Sulfate 3 ML AMPUL.NEB INHALATION (19:55)
[2022-10-02 21:06] LABS: Osmolality, Urine 248 mOsm/KG
[2022-10-02] MEDS: guaiFENesin 1,200 MG Tablet 1200 MG PO (21:33)
[2022-10-02] MEDS: Methylprednisolone Sod Succ 40 MG/ML VIAL IV (21:35)
[2022-10-02] MEDS: 0.9% Saline Lock 10 ML Syringe IV (21:39)
[2022-10-02] MEDS: hydrALAZINE 50 MG Tablet PO (21:53)
[2022-10-02] MEDS: Insulin Lispro 100 UNIT/ML INSULN.PEN SC (21:56)
[2022-10-02 23:22] LABS: Bedside Glucose 447 mg/dL (74-106)
[2022-10-02] MEDS: hydrALAZINE 20 MG/ML Vial 10 MG IV (23:48)
[2022-10-03] VITALS (12 sets, daily range): BP systolic 155–185; BP diastolic 52–75; PULSE 69–90; RESP 16–18; TEMP 36.2–36.7; O2SAT 97–99
[2022-10-03] MEDS: cloNIDine HCl 0.2 MG Tablet PO (01:25)
[2022-10-03] MEDS: oxyCODONE 5 MG Tablet PO (01:36)
[2022-10-03 02:18] LABS: Bedside Glucose 328 mg/dL (74-106)
[2022-10-03] MEDS: hydrALAZINE 50 MG Tablet PO ×3 (05:02→22:10)
[2022-10-03] MEDS: Methylprednisolone Sod Succ 40 MG/ML VIAL IV ×3 (05:07→22:12)
[2022-10-03] MEDS: metroNIDAZOLE 500 MG/100 ML BAG 100 MG IV ×3 (05:13→22:09)
[2022-10-03] MEDS: 0.9% Normal Saline 1,000 ML 75 ML IV (05:14)
[2022-10-03 06:09] LABS: Absolute Lymphocyte Count 0.73 X10^3/uL (0.83-4.51); Absolute Neutrophil Count 13.2 X10^3/uL (2.0-7.7); Basophil# 0.01 X10^3/uL; Basophil% 0.1 % (0-1); Hematocrit 30.2 % (40-54); Hemoglobin 9.5 g/dL (13.0-16.5); Lymphocyte # 0.73 X10^3/ul (0.83-4.51); Lymphocyte % 5.2 % (19-41); Mean Corp Hgb Conc 31.5 g/dL (32-36); Mean Corpuscular Hgb 27.7 pg (27.0-32.0); Mean Platelet Vol. 9.5 fl (6.2-12.0); Monocyte# 0.11 X10^3/uL; Monocyte% 0.8 % (0-10); NRBC Flagged by Analyzer 0 % (0-5); Neutrophil # 13.22 X10^3/uL (2.7-7.7); Neutrophil % 93.3 % (47-70); Platelet Count 298 K/mm3 (150-450); RBC Distribution Width CV 15.3 % (11.6-14.6); Red Blood Count 3.43 M/mm3 (4.6-6.2); White Blood Count 14.2 K/mm3 (4.4-11.0)
[2022-10-03 06:39] LABS: ALB/GLOB Ratio 0.5 RATIO (0.9-2.4); AST(SGOT) 12 U/L (15-37); Alanine Aminotransfer ALT/SGPT 18 U/L (16-61); Albumin, Serum 2.4 g/dL (3.2-5.0); Alkaline Phosphatase 120 U/L (45-117); Anion Gap 4 (5-15); BUN 35 mg/dL (7-18); BUN/Creat Ratio 14.1 RATIO (10-20); Calcium,Total 8.4 mg/dL (8.5-10.1); Chloride 113 mmol/L (98-107); Creatinine, Serum 2.49 mg/dL (0.70-1.30); EST Glomerular Filtration Rate 28 mL/min (>60); Est Glom Filt Rate - Afr Amer 34 mL/min (>60); Globulin 4.6 g/dL (2.2-4.2); Glucose 283 mg/dL (74-106); Potassium 5.5 mmol/L (3.5-5.1); Sodium Level 138 mmol/L (136-145)
--- NOTE | 2022-10-03 06:45 | PCM.PN.HOSP ---
Reason for Visit Reason for Visit: Diagnoses Hyperkalemia (10/02/22) Diverticulitis of intestine, part unspecified, without perforation or abscess without bleeding (10/02/22) Acute kidney failure, unspecified (10/02/22) Chronic kidney disease, unspecified (10/02/22) Subjective Subjective Patient with no acute events overnight per self and per nursing report. He notes that his abdomen is feeling significantly improved and has requested that his diet be advanced from clear liquids. He notes mild occasional cough and wheeze but this is markedly improved since his initial ED presentation. Patient denies fevers, chills, nausea, emesis, chest pain or dyspnea. Objective Data Objective Data Vital Signs: Vital Signs Temp Pulse Resp BP Pulse Ox O2 Del Method 97.8 F 70 18 165/56 H 98 Room Air 10/03/22 05:23 10/03/22 05:23 10/03/22 05:23 10/03/22 05:23 10/03/22 05:23 10/03/22 05:23 Oxygen Delivery Method Room Air Weight: 159 lb 9.835 oz Body Mass Index (BMI) 24.3 Intake & Output: Intake and Output for Last 24 Hours 10/01/22 10/02/22 10/03/22 23:59 23:59 23:59 Intake Total 1490 / 1490 1000 / 1000 Output Total 500 / 500 Balance 990 / 990 1000 / 1000 Lab / Micro Data 10/03/22 05:35 10/03/22 10:22 Labs: Laboratory Results - last 24 hr 10/02/22 12:45: WBC 11.2 H, RBC 3.46 L, Hgb 9.8 L, Hct 30.2 L, MCV 87.3, MCH 28.3, MCHC 32.5 D, RDW Std Deviation 48.3 H, RDW Coeff of Dana 15.3 H, Plt Count 295, MPV 9.3, Immature Gran % (Auto) 0.400, Neut % (Auto) 69.2, Lymph % (Auto) 22.1, [place] % (Auto) 6.1, Eos % (Auto) 1.7, Baso % (Auto) 0.5, Absolute Neuts (auto) 7.7, Absolute Lymphs (auto) 2.46, Nucleated RBC % 0, Sodium 140, Potassium 5.2 H, Chloride 110 H, Carbon Dioxide 23.0, Anion Gap 7, BUN 36 H, Creatinine 2.83 H, Estim Creat Clear Calc 27.19, Est GFR (MDRD) Af Amer 30 L, Est GFR (MDRD) Non-Af 25 L, BUN/Creatinine Ratio 12.7, Glucose 139 H, Lactic Acid 0.6, Calcium 8.5, Phosphorus 4.8, Magnesium 1.7, Total Bilirubin 0.20, AST 19, ALT 20, Alkaline Phosphatase 125 H, Total Protein 7.2, Albumin 2.7 L, Globulin 4.5 H, Albumin/Globulin Ratio 0.6 L 10/02/22 17:25: Urine Color Yellow, Urine Clarity Sl. Cloudy, Urine pH 6.5, Ur Specific [place] 1.010, Urine Protein 100 H, Urine Glucose (UA) 50 H, Urine Ketones Negative, Urine Occult Blood 25 H, Urine Nitrite Negative, Urine Bilirubin Negative, Urine Urobilinogen Normal, Ur Leukocyte Esterase Negative, Urine RBC 0 SEEN, Urine WBC 0-5 SEEN, Ur Squamous Epith Cells 0-5 SEEN, Urine Bacteria 0 SEEN, Urine Mucus 0 SEEN, Urine Osmolality 248, U Random Total Protein 138.4 H, Ur Random Sodium 92, Urine Creatinine < 13.00, Protein/Creatinin Ratio TNP, Urine Potassium 9.0, Urine Chloride 97 10/02/22 21:51: POC Glucose 447 H 10/02/22 23:52: POC Glucose 328 H 10/03/22 05:35: WBC 14.2 H, RBC 3.43 L, Hgb 9.5 L, Hct 30.2 L, MCV 88.0, MCH 27.7, MCHC 31.5 L, RDW Std Deviation 49.0 H, RDW Coeff of Dana 15.3 H, Plt Count 298, MPV 9.5, Immature Gran % (Auto) 0.600, Neut % (Auto) 93.3 H, Lymph % (Auto) 5.2 L, Kim[place] % (Auto) 0.8, Eos % (Auto) 0.0, Baso % (Auto) 0.1, Absolute Neuts (auto) 13.2 H, Absolute Lymphs (auto) 0.73 L, Nucleated RBC % 0, Sodium 138, Potassium 5.5 H, Chloride 113 H, Carbon Dioxide 21.0, Anion Gap 4 L, BUN 35 H, Creatinine 2.49 H, Estim Creat Clear Calc 30.90, Est GFR (MDRD) Af Amer 34 L, Est GFR (MDRD) Non-Af 28 L, BUN/Creatinine Ratio 14.1, Glucose 283 H, Calcium 8.4 L, Total Bilirubin 0.20, AST 12 L, ALT 18, Alkaline Phosphatase 120 H, Total Protein 7.0, Albumin 2.4 L, Globulin 4.6 H, Albumin/Globulin Ratio 0.5 L Micro: Microbiology 10/02/22 16:05 Mucosa - Nose Respiratory Panel (PCR) - Final 10/02/22 17:25 Urine, Clean Catch Legionella Antigen - Final 10/02/22 17:25 Urine, Clean Catch Streptococcus pneumoniae Antigen (M - Final 10/02/22 14:33 Nasal Secretion SARS-CoV-2 & FLU Antigen (Rapid) - Final Radiography Diagnostic Testing: Radiology Impression Abdomen/Pelvis CT 10/02/22 12:09 IMPRESSION: 1. Acute diverticulitis involving the large bowel within the left lower quadrant colostomy hernia sac. 2. 2 tubular soft tissue tracts in the bilateral gluteal folds are compatible with patient''s known fistulous tracts.. There is trace gas in the tract on the right however, these appear grossly similar to prior study although assessment is limited without IV contrast. 3. Cholelithiasis without CT findings of acute cholecystitis. 4. Diffuse hepatic steatosis. 5. Small hiatal hernia. Electronically Signed: Jose Alberto Ramsey DO at 13:45 EDT , Chest X-Ray 10/02/22 14:04 IMPRESSION: Cardiomegaly with hyperinflation and patchy opacities as described, representing atelectasis or early/developing pneumonia. Follow-up chest imaging to resolution recommended. Electronically Signed: Ministerio Gutierrez MD at 14:45 EDT , Physical Exam Narrative Physical Examination: General: Awake, alert, oriented x 3 and cooperative, seated upright in PCU bed, fatigued, notes feeling improved since initial ED arrival. Skin: Normal color, normal turgor, no icterus, no cyanosis. HEENT: AT/NC, EOMI, PERRLA, mildly dry MM, no carotid bruits or JVD noted. Lungs: Diminished, greater bases, occasional end expiratory wheeze but scant, appropriate effort, no rales or rhonchi. Heart: Currently regular rate and rhythm; no gallop, rub audible. Abdomen: Soft, very minimal discomfort to the left side with no rebound or guarding, he notes markedly improved since day prior, no marked distention, hyperactive bowel sounds, ostomy in place with output noted. Extremities: No cyanosis, clubbing, or edema. Neurological: Patient awake, alert, oriented as noted, cognitive function intact; pupils equally reactive to light and accommodation, cranial nerves II-XII grossly normal, moving all 4 extremities, no focal deficits, strength mildly to moderately global decrease secondary to acute presentation. Psychiatric: Affect appears fatigued otherwise normal, no acute evidence of depressive or anxiety feelings. Assessment & Plan Assessment/Plan (1) NATHANIEL (acute kidney injury): PLAN: Plan The patient is a 57 y/o M w/ PMHx: CKD stage III unclear subtype, Chronic normocytic anemia/AOCD, COPD, CAD, Diabetes mellitus type II, GERD, HTN, HLD, Lupus, CAD s/p PCI, Hx protracted severe BL groin hidradenitis/perineal/buttock abscesses with multiple surgical interventions with chronic perineal wounds and LLQ colostomy with prolapse who presents to the [facility] ED on 10/02/22 with history of left upper quadrant and left-sided lower abdominal pain as well as mild to moderate cough with productive sputum ongoing of the last 2 to 3 weeks although no marked dyspnea nor any recent fevers or chills but given ongoing symptoms prompted eventual ED evaluation. #1. Acute on Chronic COPD exacerbation chest x-ray does note left upper lobe and left lower lobe possible atelectasis versus developing pneumonia, CT abdomen and pelvis with a lower thorax was only noted emphysematous changes with scattered subsegmental atelectasis, will maintain on oxygen with wean as tolerated to room air, continue ATC duonebs, PRN albuterol, IV methylprednisolone, HOB, IS parameters, will obtain sputum Cx, urine antigens negative, full respiratory viral panel negative, maintained on antibiotic therapy Rocephin and Flagyl given #2 with penicillin allergy, low threshold to repeat chest x-ray to developing pneumonia. #2. Acute Diverticulitis: CT abdomen and pelvis with acute diverticulitis involving the large bowel within the left lower quadrant colostomy hernia sac, 2 tubular soft tissue tracks in the bilateral gluteal folds compatible with patient's known fistula tracts, trace gas in the tract in the right appears grossly similar to prior study, cholelithiasis without any CT findings of acute cholecystitis, diffuse hepatic steatosis, small hiatal hernia. Will maintain on hydration, monitor I&Os, currently clear liquids and if clinically improving we will transition to an advance diet as tolerated, treat with Rocephin and Flagyl regimen, continue home PPI, anti-emetics, pain regimen PRN, enteric stool pending. #3. Acute kidney injury on CKD stage III: Secondary to potentially uncontrolled hypertensive nephropathy but also given acute diverticulitis could potentially have had increased output through his colostomy with GI losses. Admission BUN/Cr 36/2.83, prior baseline creatinine noted to be primarily. Administered IV fluid bolus in the ED with continued maintenance IV fluids, will hold nephrotoxic medication, UA not marked appearing but urine cultures pending, urine total protein 138.4, urine random sodium 92, urine creatinine less than 13, urine osmolality 248, urine potassium 9.0, urine chloride 97, Nephrology consulted and pending. 10/03/22 BUN/Cr 35/2.49. #4. Hyperkalemia, mild: Admission potassium 5.2, no concerning EKG findings, mild, no evidence of hemolysis mentioned, administered IV fluid bolus and maintenance IV fluids, repeat CMP 10/03/2022 K 5.5, will administer hyperkalemia protocol with kayexelate, albuterol, insulin, dextrose and as noted concurrent with his NATHANIEL. If repeat elevated will also add bicarb. #5. Hypertension, uncontrolled: Likely contributing to presentation, given acute kidney injury lisinopril held, continued on amlodipine, metoprolol regimen, PRN hydralazine. #6. Hyperlipidemia: Not on statin therapy, clarifying regimen. #7. CAD: Status post PCI, will continue patient home Plavix, metoprolol, lisinopril regimen, not on statin therapy per current list but clarifying. #8. Hx protracted severe BL groin hidradenitis/perineal/buttock abscesses: Patient with multiple surgical interventions with chronic perineal wounds and LLQ colostomy with prolapse, encourage offloading, positional changes, barrier creams. #9. Diabetes mellitus type II: Clarifying regimen, will hold oral regimen, from current list does not appear to be on insulin therapy, last hemoglobin A1c noted 10/01/2022 7.9%, given clear diet given #2 we will maintain on every 6 hours accu checks w/ ISS. #10. Lupus: Patient on chronic steroids, holding as noted on IV solumedrol, transition back once completed steroid regimen for acute phase. #11. Chronic normocytic anemia: Admission hemoglobin 9.8, MCV 87.3, baseline primarily has been 10, stable, 10/03/22 Hgb 9.5, continue to trend. #12. Tobacco Abuse: Encouraged cessation, inpatient consultation per RT, NR if desired. #13. GERD: We will continue patient on PPI. #14. DVT Prophylaxis: Renally dosed lovenox. #15. CODE status: Full Code. Charges/Coding Visit Charges Inpatient E&M: 73404 Subs Hosp L3
[2022-10-03] MEDS: Insulin Lispro 100 UNIT/ML INSULN.PEN SC ×4 (06:57→22:19)
[2022-10-03 07:20] LABS: Bedside Glucose 274 mg/dL (74-106)
[2022-10-03] MEDS: Albuterol 2.5 MG/3 ML VIAL.NEB. 10 MG INHALATION (07:31)
[2022-10-03] MEDS: Insulin Lispro 10 UNIT in Syringe 0 ML 6 UNIT IV (08:06)
[2022-10-03] MEDS: Sodium Polystyrene Sulfonate 15 GM/60 ML UDC PO (08:07)
[2022-10-03] MEDS: Dextrose 50%-Water 25 GM/50 ML DISP.SYRIN IV (08:07)
[2022-10-03] MEDS: Ceftriaxone 1 GM/50 ML BAG IV (09:21)
[2022-10-03] MEDS: Pantoprazole Sodium 40 MG Tablet PO (09:23)
[2022-10-03] MEDS: amLODIPine 10 MG Tablet PO (09:23)
[2022-10-03] MEDS: Clopidogrel Bisulfate 75 MG Tablet PO (09:23)
[2022-10-03] MEDS: Enoxaparin 30 MG/0.3 ML Syringe SC (09:24)
[2022-10-03] MEDS: guaiFENesin 1,200 MG Tablet 1200 MG PO ×2 (09:24→22:12)
[2022-10-03] MEDS: Tolterodine Tartrate 2 MG CAP.SA PO (09:24)
[2022-10-03] MEDS: Metoprolol(XL)Succ 25 MG Tablet PO (09:27)
[2022-10-03 10:41] LABS: Anion Gap 9 (5-15); BUN 36 mg/dL (7-18); BUN/Creat Ratio 13.1 RATIO (10-20); Calcium,Total 8.5 mg/dL (8.5-10.1); Chloride 109 mmol/L (98-107); Creatinine, Serum 2.74 mg/dL (0.70-1.30); EST Glomerular Filtration Rate 25 mL/min (>60); Est Glom Filt Rate - Afr Amer 31 mL/min (>60); Estimated Creatinine Clearance 28.08 ml/min; Glucose 428 mg/dL (74-106); Potassium 4.2 mmol/L (3.5-5.1); Sodium Level 136 mmol/L (136-145)
--- NOTE | 2022-10-03 10:52 | PCM.CONS.R ---
Assessment & Plan Assessment/Plan (1) NATHANIEL (acute kidney injury): (2) Hyperkalemia: PLAN: Plan This is a 57-year-old male with past medical history significant for diabetes mellitus type 2 (per patient report last A1c 7.1%, per patient report currently managed by diet), history of nonhealing hydradenitis ulcer right inguinal, scrotal and perineal area followed by Dr. Smith, chronic tobacco abuse, hypertension, coronary artery disease status post coronary stent placement, history of diverting colostomy (September 2020) who presented to the emergency room under the direction of primary care for elevated creatinine. Nephrology consulted for NATHANIEL. Creatinine yesterday 3.27 mg/dL, patient started on IV fluids and today serum creatinine improved 2.49 mg/dL. Recommend to continue with IV fluids. Patient had been on lisinopril but currently on hold. Blood pressures were elevated in the emergency room, 206/79 but have improved. NATHANIEL in setting of volume depletion with concurrent PAULINE inhibitor effect, uncontrolled HTN may also be contributing to NATHANIEL. 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 Potassium slightly elevated this morning at 5.5 and patient did receive Kayexalate, insulin, D50 and albuterol. Repeat potassium pending. Hyperkalemia from NATHANIEL, dietary indiscretion and concurrent PAULINE inhibitor. Reviewed low potassium diet with patient for while he is in hospital. Patient has normal baseline potassium trends. In reviewing past creatinine trends patient has had mild elevated creatinine at 1.56 mg/dL as of April of this year. Also to note urine protein creatinine ratio 6 g March 2021. Patient did have urine protein resulted at 138.4, urine creatinine less than 13. BPs improved currently on amlodipine and Toprol. Once renal function improves and creatinine levels off to baseline recommend patient back on PAULINE inhibitor given history of proteinuria. Patient did have a noncontrast CT of abdomen and pelvis which did not show any hydronephrosis or nephrolithiasis. UA 100 protein, no blood. Further orders forthcoming as hospitalization evolves, thank you for allowing us to participate in the care of Mr. Santos. HPI Consult Data Date of Consult: 10/03/22 HPI Narrative HPI Narrative: SVEN SANTOS, is a 57 M with past medical history significant for diabetes mellitus type 2 (per patient report last A1c 7.1% per patient report currently managed by diet), history of nonhealing hydradenitis ulcer right inguinal, scrotal and perineal area followed by Dr. Smith, chronic tobacco abuse, hypertension, coronary artery disease status post coronary stent placement, history of diverting colostomy (September 2020) who presented to the emergency room under the direction of primary care after found to have abnormal labs, elevated creatinine. Patient was admitted for further evaluation and treatment. He was started on IV fluids. Nephrology consulted for acute kidney injury. Patient reports he has not been evaluated by barrel rifler in the past. Patient reports of recent he has had poor oral intake, no recent nausea or vomiting. No recent loose watery or stools from ostomy bag. Only new medication oxybutynin. Patient reports he does not take [id number] NSAIDs. [facility] Medical History (Updated 10/03/22 @ 11:02 by Mackenzie Jacobson, MARLEN-C) Abscess of buttock, left Abscess of left thigh Abscess of right groin Abscess of scrotal wall Abscess, perineum Acute blood loss anemia Alcohol use Anemia Anemia of chronic disease Arthritis Back pain Back pain due to injury Colostomy in place Complete edentulism, class III Complicated open wound of left thigh COPD (chronic obstructive pulmonary disease) Coronary artery disease Diabetes Diabetes mellitus type 2, uncontrolled, with complications Diabetes type 2, uncontrolled Dietary restriction DM type 2, goal HbA1c < 7.5% Gastric reflux Hemoglobin A1c greater than 8.0 percent Hidradenitis suppurativa of anus History of edema History of pain when walking History of stress test History of ulceration Hydradenitis Hydradenitis Hyperlipidemia associated with type 2 diabetes mellitus Hypertension Kidney disease Lupus (systemic lupus erythematosus) Malnutrition Non-healing open wound of right groin Open wound of buttock with complication Open wound of left buttock with complication Open wound of scrotum Open wound of scrotum with complication Pain in the groin Shingles Shortness of breath on exertion Skin ulcer of scrotum Smoker Suppurative hidradenitis Ulcer of left groin with fat layer exposed Ulcer of perineum with fat layer exposed Home Medications tramadol 50 mg tablet 100 mg (2 x 50 mg) PO TID PRN pain (scale score 7-10) 30 days #180 tabs 03/28/21 [Rx Last Taken Unknown] amlodipine 10 mg tablet 10 mg PO DAILY BLOOD PRESSURE #30 tabs 11/06/21 [Rx Last Taken 10/02/22] lisinopril 40 mg tablet 40 mg PO DAILY BLOOD PRESSURE #30 tabs 11/06/21 [Rx Last Taken 10/02/22] clopidogrel 75 mg tablet 75 mg PO DAILY BLOOD THINNER #30 tabs 01/25/22 [Rx Last Taken 10/02/22] guselkumab 100 mg/mL subcutaneous syringe (Tremfya) 100 mg subcut Q4W ARTHRITIS 04/23/22 [History Last Taken 09/26/22] clarithromycin 500 mg tablet 500 mg PO BID ANTIBIOTIC #28 tabs 10/01/22 [Rx Last Taken Unknown] oxybutynin chloride 5 mg tablet,extended release 24 hr 5 mg PO DAILY OVERACTIVE BLADDER 10/01/22 [History Last Taken 10/02/22] prednisone 20 mg tablet 40 mg (2 x 20 mg) PO DAILY STEROID 10 days #20 tabs 10/01/22 [Rx Last Taken Unknown] metoprolol succinate 25 mg tablet,extended release 24 hr 25 mg PO DAILY BLOOD PRESSURE 10/02/22 [History Last Taken Unknown] Allergy/AdvReac Type Severity Reaction Status Date / Time Penicillins Allergy Unknown Verified 10/02/22 11:41 Sulfa (Sulfonamide Allergy Unknown Verified 10/02/22 11:41 Antibiotics) bupropion [From Wellbutrin] AdvReac Severe change in Verified 10/02/22 11:41 personality ,meanness and smoked more Family History Aunt Lung disease lung cancer Father Heart disease Hypertension Family history of high cholesterol Diabetes Mother Diabetes Daughter Epilepsy Surgical History History of coronary artery stent placement History of incision and drainage History of removal of cyst History of tonsillectomy and adenoidectomy Hx of hernia repair Stented coronary artery Social History household members: spouse Smoking Status: Current every day smoker tobacco type: cigarettes counseling given: provider counseling alcohol intake: never substance use type: does not use additional social history: DOES NOT TAKE ASPIRIN DOES NOT TAKE IBUPROFEN ROS ROS Narrative As in HPI and past medical history Physical Exam Narrative Alert and oriented x3, no apparent distress S1, S2, RRR Lung sounds clear anteriorly and posteriorly. No wheezes, rhonchi rales noted Abdomen soft nontender, ostomy intact No edema Lab / Micro Data 10/03/22 05:35 10/03/22 10:22 Labs: Laboratory Results - last 24 hr 10/02/22 12:45: WBC 11.2 H, RBC 3.46 L, Hgb 9.8 L, Hct 30.2 L, MCV 87.3, MCH 28.3, MCHC 32.5 D, RDW Std Deviation 48.3 H, RDW Coeff of Dana 15.3 H, Plt Count 295, MPV 9.3, Immature Gran % (Auto) 0.400, Neut % (Auto) 69.2, Lymph % (Auto) 22.1, [place] % (Auto) 6.1, Eos % (Auto) 1.7, Baso % (Auto) 0.5, Absolute Neuts (auto) 7.7, Absolute Lymphs (auto) 2.46, Nucleated RBC % 0, Sodium 140, Potassium 5.2 H, Chloride 110 H, Carbon Dioxide 23.0, Anion Gap 7, BUN 36 H, Creatinine 2.83 H, Estim Creat Clear Calc 27.19, Est GFR (MDRD) Af Amer 30 L, Est GFR (MDRD) Non-Af 25 L, BUN/Creatinine Ratio 12.7, Glucose 139 H, Lactic Acid 0.6, Calcium 8.5, Phosphorus 4.8, Magnesium 1.7, Total Bilirubin 0.20, AST 19, ALT 20, Alkaline Phosphatase 125 H, Total Protein 7.2, Albumin 2.7 L, Globulin 4.5 H, Albumin/Globulin Ratio 0.6 L 10/02/22 17:25: Urine Color Yellow, Urine Clarity Sl. Cloudy, Urine pH 6.5, Ur Specific [place] 1.010, Urine Protein 100 H, Urine Glucose (UA) 50 H, Urine Ketones Negative, Urine Occult Blood 25 H, Urine Nitrite Negative, Urine Bilirubin Negative, Urine Urobilinogen Normal, Ur Leukocyte Esterase Negative, Urine RBC 0 SEEN, Urine WBC 0-5 SEEN, Ur Squamous Epith Cells 0-5 SEEN, Urine Bacteria 0 SEEN, Urine Mucus 0 SEEN, Urine Osmolality 248, U Random Total Protein 138.4 H, Ur Random Sodium 92, Urine Creatinine < 13.00, Protein/Creatinin Ratio TNP, Urine Potassium 9.0, Urine Chloride 97 10/02/22 21:51: POC Glucose 447 H 10/02/22 23:52: POC Glucose 328 H 10/03/22 05:35: WBC 14.2 H, RBC 3.43 L, Hgb 9.5 L, Hct 30.2 L, MCV 88.0, MCH 27.7, MCHC 31.5 L, RDW Std Deviation 49.0 H, RDW Coeff of [place] 15.3 H, Plt Count 298, MPV 9.5, Immature Gran % (Auto) 0.600, Neut % (Auto) 93.3 H, Lymph % (Auto) 5.2 L, [place] % (Auto) 0.8, Eos % (Auto) 0.0, Baso % (Auto) 0.1, Absolute Neuts (auto) 13.2 H, Absolute Lymphs (auto) 0.73 L, Nucleated RBC % 0, Sodium 138, Potassium 5.5 H, Chloride 113 H, Carbon Dioxide 21.0, Anion Gap 4 L, BUN 35 H, Creatinine 2.49 H, Estim Creat Clear Calc 30.90, Est GFR (MDRD) Af Amer 34 L, Est GFR (MDRD) Non-Af 28 L, BUN/Creatinine Ratio 14.1, Glucose 283 H, Calcium 8.4 L, Total Bilirubin 0.20, AST 12 L, ALT 18, Alkaline Phosphatase 120 H, Total Protein 7.0, Albumin 2.4 L, Globulin 4.6 H, Albumin/Globulin Ratio 0.5 L 10/03/22 06:49: POC Glucose 274 H 10/03/22 10:22: Sodium 136, Potassium 4.2, Chloride 109 H, Carbon Dioxide 18.0 L, Anion Gap 9, BUN 36 H, Creatinine 2.74 H, Estim Creat Clear Calc 28.08, Est GFR (MDRD) Af Amer 31 L, Est GFR (MDRD) Non-Af 25 L, BUN/Creatinine Ratio 13.1, Glucose 428 H, Calcium 8.5 Micro: Microbiology 10/02/22 16:05 Mucosa - Nose Respiratory Panel (PCR) - Final 10/02/22 17:25 Urine, Clean Catch Legionella Antigen - Final 10/02/22 17:25 Urine, Clean Catch Streptococcus pneumoniae Antigen (M - Final 10/02/22 14:33 Nasal Secretion SARS-CoV-2 & FLU Antigen (Rapid) - Final Radiology Impression Abdomen/Pelvis CT 10/02/22 12:09 IMPRESSION: 1. Acute diverticulitis involving the large bowel within the left lower quadrant colostomy hernia sac. 2. 2 tubular soft tissue tracts in the bilateral gluteal folds are compatible with patient''s known fistulous tracts.. There is trace gas in the tract on the right however, these appear grossly similar to prior study although assessment is limited without IV contrast. 3. Cholelithiasis without CT findings of acute cholecystitis. 4. Diffuse hepatic steatosis. 5. Small hiatal hernia. Electronically Signed: Jose Alberto Ramsey DO at 13:45 EDT , Chest X-Ray 10/02/22 14:04 IMPRESSION: Cardiomegaly with hyperinflation and patchy opacities as described, representing atelectasis or early/developing pneumonia. Follow-up chest imaging to resolution recommended. Electronically Signed: Ministerio Gutierrez MD at 14:45 EDT ,
[2022-10-03 11:49] LABS: Bedside Glucose 425 mg/dL (74-106)
--- NOTE | 2022-10-03 14:23 | WOUNDNOTE ---
wound photo: groin/srini anal area
--- NOTE | 2022-10-03 14:40 | CASEMGMT ---
RN CM Face to Face with patient and his , Bobbi (with patient's permission), for initial transition planning/care coordination assessment. RN CM introduced self and role at [facility]. Patient lying in bed, alert and oriented. Patient willing to participate in assessment and is able to answer all questions appropriately.? Care providers, pharmacy, and demographics verified. Patient wishes to discharge home, denies need for home health at this time.? Patient's states she would like some additional information as to what caused patient's admission as well as preventative care. Patient's nurse informed of need for patient/family education. Patient states he has no further needs or concerns at this time. CM to follow for discharge planning needs that may arise. PCP:Home Specialists:Kasey (Vascular), [place] (Clean Rice Broker), Sarah (Plastic Surgeon), Following-up with [facility] Preferred Pharmacy: [facility] in [place] Insurance:[facility] Prescription Benefit:?Yes Living Will/HPOA:Yes; Bobbi LNOK: Bobbi Santos and javion Vinh Conteh Living Arrangements: Patient lives with in a raised ranch home: 4 steps w/raling and a ramp in the back, and 18 steps w/raling in the front. Independent in ADLs. Transportation:Self, , and stepson DME/HHC:Patient states he has a shower bench, cane, walker, crutches, grab bars, hand held shower, glucometer and BP cuff. Will monitor for additional DME needs. [facility] Disposition Plan:Patient to discharge home with family support follow-up plans in place. Dipti WILLIS, RN, CM
[2022-10-03 16:27] LABS: Bedside Glucose 294 mg/dL (74-106)
[2022-10-03] MEDS: Ipratropium/Albuterol Sulfate 3 ML AMPUL.NEB INHALATION (19:14)
[2022-10-03 23:37] LABS: Bedside Glucose 357 mg/dL (74-106)
[2022-10-04] VITALS (11 sets, daily range): BP systolic 156–203; BP diastolic 73–137; PULSE 70–98; RESP 16–18; TEMP 36–36.8; O2SAT 92–97
[2022-10-04] MEDS: hydrALAZINE 20 MG/ML Vial 10 MG IV ×2 (04:11→23:29)
[2022-10-04] MEDS: metroNIDAZOLE 500 MG/100 ML BAG 100 MG IV ×3 (06:10→21:45)
[2022-10-04] MEDS: hydrALAZINE 50 MG Tablet PO (06:14)
[2022-10-04] MEDS: Methylprednisolone Sod Succ 40 MG/ML VIAL IV ×3 (06:15→22:35)
[2022-10-04] MEDS: Insulin Lispro 100 UNIT/ML INSULN.PEN SC ×4 (06:18→21:57)
--- NOTE | 2022-10-04 06:24 | PN.HOSP_ITS ---
Reason for Visit Reason for Visit: Diagnoses Hyperkalemia (10/02/22) Diverticulitis of intestine, part unspecified, without perforation or abscess without bleeding (10/02/22) Acute kidney failure, unspecified (10/02/22) Chronic kidney disease, unspecified (10/02/22) Subjective Subjective Patient overnight with no acute events per self and per nursing report. Patient notes that his abdominal discomfort still has improved although he states some mild discomfort to the left lower quadrant just above his ostomy but this is very mild and has had no nausea or emesis. He denies any fevers or chills. He notes his coughing has lessened and he is breathing with greater ease. Discussed his current mildly increased renal function from day prior with plan for IV fluid bolus and maintenance fluids with repeat testing in the a.m. and he is amenable. Discussed that although he is diagnosed as lupus its unclear if he ever had formal thorough evaluation therefore autoimmune work-up is being initiated by nephrology to be cautious and discussed that he may need future renal biopsy to which she is amenable if it is necessary. Patient denies fev ers, chills, nausea, emesis, abdominal pain, chest pain or dyspnea. Objective Data Objective Data Vital Signs: Vital Signs Temp Pulse Resp BP Pulse Ox O2 Del Method 98 F 98 16 186/137 H 95 Room Air 10/04/22 04:00 10/04/22 06:14 10/04/22 04:00 10/04/22 06:14 10/04/22 04:00 10/04/22 04:00 Oxygen Delivery Method Room Air Weight: 159 lb 9.835 oz Body Mass Index (BMI) 24.3 Intake & Output: Intake and Output for Last 24 Hours 10/02/22 10/03/22 10/04/22 23:59 23:59 23:59 Intake Total 1490 / 1490 2590 / 2990 400 / 400 Output Total 500 / 500 Balance 990 / 990 2590 / 2990 400 / 400 Lab / Micro Data 10/04/22 06:30 10/04/22 06:30 Labs: Laboratory Results - last 24 hr 10/03/22 05:35: Sodium 138, Potassium 5.5 H, Chloride 113 H, Carbon Dioxide 21.0, Anion Gap 4 L, BUN 35 H, Creatinine 2.49 H, Estim Creat Clear Calc 30.90, Est GFR (MDRD) Af Amer 34 L, Est GFR (MDRD) Non-Af 28 L, BUN/Creatinine Ratio 14.1, Glucose 283 H, Calcium 8.4 L, Total Bilirubin 0.20, AST 12 L, ALT 18, Alkaline Phosphatase 120 H, Total Protein 7.0, Albumin 2.4 L, Globulin 4.6 H, Albumin/Globulin Ratio 0.5 L 10/03/22 06:49: POC Glucose 274 H 10/03/22 10:22: Sodium 136, Potassium 4.2, Chloride 109 H, Carbon Dioxide 18.0 L , Anion Gap 9, BUN 36 H, Creatinine 2.74 H, Estim Creat Clear Calc 28.08, Est GFR (MDRD) Af Amer 31 L, Est GFR (MDRD) Non-Af 25 L, BUN/Creatinine Ratio 13.1, Glucose 428 H, Calcium 8.5 10/03/22 11:23: POC Glucose 425 H 10/03/22 15:58: POC Glucose 294 H 10/03/22 22:18: POC Glucose 357 H Micro: Microbiology 10/03/22 08:50 Sputum, Expectorated/Coughed Gram Stain - Final 10/03/22 00:50 Stool Enteric Bacteriology - Final 10/02/22 16:05 Mucosa - Nose Respiratory Panel (PCR) - Final 10/02/22 17:25 Urine, Clean Catch Legionella Antigen - Final 10/02/22 17:25 Urine, Clean Catch Streptococcus pneumoniae Antigen (M - Final 10/02/22 14:33 Nasal Secretion SARS-CoV-2 & FLU Antigen (Rapid) - Final Physical Exam Narrative Physical Examination: General: Awake, alert, oriented x 3 and cooperative, seated upright in PCU bed, no acute complaints at this time, notes some mild discomfort to the abdomen but still feeling well. Skin: Normal color, normal turgor, no icterus, no cyanosis. HEENT: AT/NC, EOMI, PERRLA, MMM. Lungs: Diminished, greater bases, improved effort, no rales, rhonchi or wheezing. Heart: Regular rate and rhythm; no gallop, rub audible. Abdomen: Soft, no marked discomfort to the left side or the abdomen in general, no rebound or guarding, normalizing bowel sounds, ostomy in place with output noted. Extremities: No cyanosis, clubbing, or edema. Neurological: Patient awake, alert, oriented as noted, cognitive function intact; pupils equally reactive to light and accommodation, cranial nerves II- XII grossly normal, moving all 4 extremities, no focal deficits, strength mildly to moderately global decrease secondary to acute presentation. Psychiatric: Affect appears less fatigued, normal, no acute evidence of depressive or anxiety feelings. Assessment & Plan Assessment/Plan (1) NATHANIEL (acute kidney injury): PLAN: Plan The patient is a 57 y/o M w/ PMHx: CKD stage III unclear subtype, Chronic normocytic anemia/AOCD, COPD, CAD, Diabetes mellitus type II, GERD, HTN, HLD, Lupus, CAD s/p PCI, Hx protracted severe BL groin hidradenitis/perineal/buttock abscesses with multiple surgical interventions with chronic perineal wounds and LLQ colostomy with prolapse who presents to the [facility] ED on 10/02/22 with history of left upper quadrant and left-sided lower abdominal pain as well as mild to moderate cough with productive sputum ongoing of the last 2 to 3 weeks although no marked dyspnea nor any recent fevers or chills but given ongoing symptoms prompted eventual ED evaluation. #1. Acute on Chronic COPD exacerbation chest x-ray does note left upper lobe and left lower lobe possible atelectasis versus developing pneumonia, CT abdomen and pelvis with a lower thorax was only noted emphysematous changes with scattered subsegmental atelectasis, will maintain on oxygen with wean as tolerated to room air, continue ATC duonebs, PRN albuterol, IV methyl prednisolone, HOB, IS parameters, sputum Cx pending, urine antigens negative, full respiratory viral panel negative, maintained on antibiotic therapy Rocephin and Flagyl given #2 with penicillin allergy. Given also noted #2 once appropriate for discharge would plan transition to oral cefdinir pending creatinine clearance but currently if less than 30 would be 300 mg daily as well as Flagyl 500 mg 3 times daily to complete at least a 10 treatment therapy. #2. Acute Diverticulitis: CT abdomen and pelvis with acute diverticulitis involving the large bowel within the left lower quadrant colostomy hernia sac, 2 tubular soft tissue tracks in the bilateral gluteal folds compatible with patient's known fistula tracts, trace gas in the tract in the right appears grossly similar to prior study, cholelithiasis without any CT findings of acute cholecystitis, diffuse hepatic steatosis, small hiatal hernia. Will maintain on hydration, monitor I&Os, tolerated clear liquids, currently transitioned to ADA diet, maintained on Rocephin and Flagyl regimen, continue home PPI, anti- emetics, pain regimen PRN, enteric stool negative. 10/04/22 CBC w/ WBC 24.2 with L shift; however, he is on IV solumedrol as noted #1. Once appropriate for discharge would plan transition to oral cefdinir pending creatinine clearance but currently if less than 30 would be 300 mg daily as well as Flagyl 500 mg 3 times daily to complete at least a 10 day treatment therapy. #3. Acute kidney injury on CKD stage III: Secondary to potentially uncontrolled hypertensive nephropathy but also given acute diverticulitis could potentially have had increased output through his colostomy with GI losses. Admission BUN/Cr 36/2.83, prior baseline creatinine noted to be primarily. Administered IV fluid bolus in the ED with continued maintenance IV fluids, will hold nephrotoxic medication, UA not marked appearing but urine cultures pending, urine total protein 138.4, urine random sodium 92, urine creatinine less than 13, urine osmolality 248, urine potassium 9.0, urine chloride 97, Nephrology consulted and pending. 10/03/22 BUN/Cr 35/2.49->10/04/22 BUN/Cr 41/2.75. Also they are obtaining additional autoimmune work-up for Lupus to confirm but patient may require renal Bx in the future outpatient. From discussion with Nephrology if improves 10/05/22 following mild judicious IVF bolus and MIVF then could consider discharge. #4. Hyperkalemia, mild: Admission potassium 5.2, no concerning EKG findings, mild, no evidence of hemolysis mentioned, administered IV fluid bolus and maintenance IV fluids, repeat CMP 10/03/2022 K 5.5, administered hyperkalemia protocol, repeat 10/03/22 K 4.2, will continue to trend, 10/04/22 K 4.8. #5. Hypertension, uncontrolled: Likely contributing to presentation, given acute kidney injury lisinopril held, continued on amlodipine, 10/04/22 increased metoprolol and oral hydralazine regimen, will continue to monitor and further alter as needed pending response, PRN IV additional hydralazine. #6. Hyperlipidemia: Not on statin therapy, clarifying regimen. #7. CAD: Status post PCI, will continue patient home Plavix, metoprolol, lisinopril regimen, not on statin therapy per current list but clarifying. #8. Hx protracted severe BL groin hidradenitis/perineal/buttock abscesses: Patient with multiple surgical interventions with chronic perineal wounds and LLQ colostomy with prolapse, encourage offloading, positional changes, barrier creams. #9. Diabetes mellitus type II: Clarifying regimen, will hold oral regimen, from current list does not appear to be on insulin therapy, last hemoglobin A1c noted 10/01/2022 7.9%, ADA diet, accu checks w/ ISS. #10. Lupus: Patient on chronic steroids, holding as noted on IV solumedrol, transition back once completed steroid regimen for acute phase. #11. Chronic normocytic anemia: Admission hemoglobin 9.8, MCV 87.3, baseline primarily has been 10, stable, 10/04/22 Hgb 9.8, continue to trend. #12. Tobacco Abuse: Encouraged cessation, inpatient consultation per RT, NR if desired. #13. GERD: We will continue patient on PPI. #14. DVT Prophylaxis: Renally dosed lovenox. #15. CODE status: Full Code. Charges/Coding Visit Charges Inpatient E&M: 54392 Subs Hosp L3
[2022-10-04 06:37] LABS: Bedside Glucose 329 mg/dL (74-106)
[2022-10-04 06:57] LABS: Absolute Lymphocyte Count 0.72 X10^3/uL (0.83-4.51); Absolute Neutrophil Count 22.7 X10^3/uL (2.0-7.7); Basophil# 0.04 X10^3/uL; Basophil% 0.2 % (0-1); Hematocrit 31.2 % (40-54); Hemoglobin 9.8 g/dL (13.0-16.5); Lymphocyte # 0.72 X10^3/ul (0.83-4.51); Mean Corp Hgb Conc 31.4 g/dL (32-36); Mean Corpuscular Hgb 28.2 pg (27.0-32.0); Mean Corpuscular Volume 89.7 fL (80-94); Mean Platelet Vol. 9.7 fl (6.2-12.0); Monocyte# 0.45 X10^3/uL; Monocyte% 1.9 % (0-10); NRBC Flagged by Analyzer 0 % (0-5); Neutrophil # 22.74 X10^3/uL (2.7-7.7); POSITIVE DIFFERENTIAL YES; Platelet Count 360 K/mm3 (150-450); RBC Distribution Width CV 15.9 % (11.6-14.6); RBC Distribution Width SD 51.7 fl (35.1-43.9); Red Blood Count 3.48 M/mm3 (4.6-6.2); White Blood Count 24.2 K/mm3 (4.4-11.0)
[2022-10-04 06:58] LABS: Differential Indicated SCAN CRITERIA MET
[2022-10-04 07:11] LABS: Anisocytosis 1+
[2022-10-04 07:53] LABS: ALB/GLOB Ratio 0.6 RATIO (0.9-2.4); AST(SGOT) 9 U/L (15-37); Alanine Aminotransfer ALT/SGPT 18 U/L (16-61); Albumin, Serum 2.6 g/dL (3.2-5.0); Alkaline Phosphatase 113 U/L (45-117); Anion Gap 9 (5-15); BUN 41 mg/dL (7-18); BUN/Creat Ratio 14.9 RATIO (10-20); Calcium,Total 8.6 mg/dL (8.5-10.1); Chloride 114 mmol/L (98-107); Creatinine, Serum 2.75 mg/dL (0.70-1.30); EST Glomerular Filtration Rate 25 mL/min (>60); Est Glom Filt Rate - Afr Amer 31 mL/min (>60); Estimated Creatinine Clearance 27.98 ml/min; Globulin 4.5 g/dL (2.2-4.2); Glucose 343 mg/dL (74-106); Potassium 4.8 mmol/L (3.5-5.1); Protein, Total 7.1 g/dL (6.4-8.2); Sodium Level 140 mmol/L (136-145)
--- NOTE | 2022-10-04 10:29 | PCM.PN.REN ---
Subjective Subjective Sitting up in bed. No complaints. No overnight events Objective Data Objective Data Vital Signs: Vital Signs Temp Pulse Resp BP Pulse Ox O2 Del Method 96.8 F L 76 16 183/80 H 96 Room Air 10/04/22 10:27 10/04/22 10:27 10/04/22 10:27 10/04/22 10:27 10/04/22 10:27 10/04/22 10:27 Oxygen Delivery Method Room Air Weight: 72.4 kg Body Mass Index (BMI) 24.3 Intake & Output: Intake and Output for Last 24 Hours 10/02/22 10/03/22 10/04/22 23:59 23:59 23:59 Intake Total 1490 / 1490 2590 / 2990 400 / 400 Output Total 500 / 500 Balance 990 / 990 2590 / 2990 400 / 400 Lab / Micro Data 10/04/22 06:30 10/04/22 06:30 Labs: Laboratory Results - last 24 hr 10/03/22 10:22: Sodium 136, Potassium 4.2, Chloride 109 H, Carbon Dioxide 18.0 L, Anion Gap 9, BUN 36 H, Creatinine 2.74 H, Estim Creat Clear Calc 28.08, Est GFR (MDRD) Af Amer 31 L, Est GFR (MDRD) Non-Af 25 L, BUN/Creatinine Ratio 13.1, Glucose 428 H, Calcium 8.5 10/03/22 11:23: POC Glucose 425 H 10/03/22 15:58: POC Glucose 294 H 10/03/22 22:18: POC Glucose 357 H 10/04/22 06:16: POC Glucose 329 H 10/04/22 06:30: WBC 24.2 H, RBC 3.48 L, Hgb 9.8 L, Hct 31.2 L, MCV 89.7, MCH 28.2, MCHC 31.4 L, RDW Std Deviation 51.7 H, RDW Coeff of Dana 15.9 H, Plt Count 360, MPV 9.7, Immature Gran % (Auto) 0.900, Neut % (Auto) 94.0 H, Lymph % (Auto) 3.0 L, [place] % (Auto) 1.9, Eos % (Auto) 0.0, Baso % (Auto) 0.2, Absolute Neuts (auto) 22.7 H, Absolute Lymphs (auto) 0.72 L, Nucleated RBC % 0, Anisocytosis 1+, Sodium 140, Potassium 4.8, Chloride 114 H, Carbon Dioxide 17.0 L, Anion Gap 9, BUN 41 H, Creatinine 2.75 H, Estim Creat Clear Calc 27.98, Est GFR (MDRD) Af Amer 31 L, Est GFR (MDRD) Non-Af 25 L, BUN/Creatinine Ratio 14.9, Glucose 343 H, Calcium 8.6, Total Bilirubin 0.20, AST 9 L, ALT 18, Alkaline Phosphatase 113, Total Protein 7.1, Albumin 2.6 L, Globulin 4.5 H, Albumin/Globulin Ratio 0.6 L Micro: Microbiology 10/02/22 17:25 Urine, Clean Catch Urine Culture - Final Culture exhibits no growth. 10/02/22 17:25 Urine, Clean Catch Legionella Antigen - Final 10/02/22 17:25 Urine, Clean Catch Streptococcus pneumoniae Antigen (M - Final 10/03/22 08:50 Sputum, Expectorated/Coughed Gram Stain - Final 10/03/22 00:50 Stool Enteric Bacteriology - Final 10/02/22 16:05 Mucosa - Nose Respiratory Panel (PCR) - Final 10/02/22 14:33 Nasal Secretion SARS-CoV-2 & FLU Antigen (Rapid) - Final Physical Exam Narrative Alert and oriented x3, no apparent distress S1, S2, RRR Lung sounds clear anteriorly and posteriorly. No wheezes, rhonchi, rales noted Abdomen soft nontender, ostomy intact No edema Assessment & Plan Assessment/Plan (1) NATHANIEL (acute kidney injury): (2) Hyperkalemia: PLAN: Plan This is a 57-year-old male with past medical history significant for diabetes mellitus type 2 (last A1c 7.9%, per patient report currently managed by diet), history of nonhealing hydradenitis ulcer right inguinal, scrotal and perineal area followed by Dr. Smith, chronic tobacco abuse, hypertension, coronary artery disease status post coronary stent placement, history of diverting colostomy (September 2020) who presented to the emergency room under the direction of primary care for elevated creatinine. Nephrology consulted for NATHANIEL. - NATHANIEL superimposed on probable CKD; Creatinine 3.27 mg/dL on admission, patient started on IV fluids --> SCr improved 2.49 mg/dL yesterday, off IVF and today SCr 2.75mg/dL. Can restart back on IVF and encouraged patient to increase fluids. Patient had been on lisinopril but currently on hold. Blood pressures were elevated in the emergency room, 206/79. Noncontrast CT of abdomen and pelvis did not show any hydronephrosis or nephrolithiasis. UA 100 protein, no blood. NATHANIEL in setting of volume depletion with concurrent PAULINE inhibitor effect, uncontrolled HTN may also be contributing to NATHANIEL vs possible CKD progression??. At this time there is no acute indication for [employer], patient is nonoliguric and volume status acceptable, bicarb acceptable. Potassium slightly elevated last few days but today K+ 4.8. Hyperkalemia from NATHANIEL, dietary indiscretion and concurrent PAULINE inhibitor. Patient has normal baseline potassium trends. - CKD stage 3: In reviewing past creatinine trends patient has had mild elevated creatinine: 1.3mg/dL 12/2020, 1.2-1.6mg/dL 2021 and SCr 1.56 mg/dL as of April of this year. Urine protein creatinine ratio 6 g March 2021 (on lisinopril 40mg daily). Patient did have urine protein resulted at 138.4, urine creatinine less than 13. - BP still elevated, will stop toprol and start labetolol 200mg bid, continue amlodipine and hydralazine. Lisinopril on hold due to NATHANIEL. - patient reports work up for possible Lupus per primary care done late 2020 to early [address] Cunningham. Patient states had been on prednisone per primary team but then stopped and was off prednisone for at least 9 months. Then ordered to start prednisone after seen by primary this past Saturday for difficulty breathing. ESPINOZA + 01/2021, anti-DS DNA + (elevated at 12). IgG, IgM normal, IgA elevated 814, serum immunofixation resulted presence of monoclonal protein unclear. Chronic low Albumin under 2.9 since at least 2018. - discussed with patient given above findings, complicated history that once more stable, out of hospital may undergo kidney biopsy. Will arrange for hospital follow-up with Dr. Baird in [place] office. On plavix, history of PAD and coronary stent - non-contrast CT A/P: acute diverticulitis on flagyl and IV hydration - acute on chronic COPD - Hx chronic protracted severe B/L groin hidradenitis/perineal/buttock abscesses with multiple surgical interventions with chronic perineal wounds and LLQ colostomy with prolapse
[2022-10-04] MEDS: Enoxaparin 30 MG/0.3 ML Syringe SC (10:37)
[2022-10-04] MEDS: Tolterodine Tartrate 2 MG CAP.SA PO (10:37)
[2022-10-04] MEDS: Clopidogrel Bisulfate 75 MG Tablet PO (10:38)
[2022-10-04] MEDS: Pantoprazole Sodium 40 MG Tablet PO (10:38)
[2022-10-04] MEDS: guaiFENesin 1,200 MG Tablet 1200 MG PO (10:38)
[2022-10-04] MEDS: amLODIPine 10 MG Tablet PO (10:38)
[2022-10-04] MEDS: 0.9% Normal Saline 1,000 ML 100 ML IV ×2 (10:48→21:47)
[2022-10-04] MEDS: Ceftriaxone 1 GM/50 ML BAG IV (10:48)
[2022-10-04 12:39] LABS: Bedside Glucose 287 mg/dL (74-106)
[2022-10-04 13:03] LABS: Protein:Creat Ratio 5258 mg/g CRE (0-200)
[2022-10-04] MEDS: hydrALAZINE 50 MG Tablet 100 MG PO ×2 (14:24→21:47)
[2022-10-04 17:27] LABS: Bedside Glucose 316 mg/dL (74-106)
[2022-10-04 22:13] LABS: Bedside Glucose 330 mg/dL (74-106)
[2022-10-04] MEDS: Labetalol 200 MG Tablet PO (22:31)
[2022-10-05] VITALS (7 sets, daily range): BP systolic 153–184; BP diastolic 57–95; PULSE 70–80; RESP 18; TEMP 36.6–36.7; O2SAT 94–100
[2022-10-05] MEDS: Insulin Lispro 100 UNIT/ML INSULN.PEN SC (06:08)
[2022-10-05] MEDS: Methylprednisolone Sod Succ 40 MG/ML VIAL IV (06:08)
[2022-10-05] MEDS: metroNIDAZOLE 500 MG/100 ML BAG 100 MG IV (06:08)
--- NOTE | 2022-10-05 06:10 | PN.HOSP_ITS ---
Reason for Visit Reason for Visit: Diagnoses Hyperkalemia (10/02/22) Diverticulitis of intestine, part unspecified, without perforation or abscess without bleeding (10/02/22) Acute kidney failure, unspecified (10/02/22) Chronic kidney disease, unspecified (10/02/22) Subjective Subjective Patient with no acute events overnight per self and per nursing report. He notes breathing with greater ease moving around in his room although still an occasional wheeze but he states this is his baseline. He is still tolerating food and denies any recurrent abdominal discomfort. Discussed plan at length given his renal function mild improvement to follow-up outpatient with nephrology for ongoing evaluation of his renal disease including possible future biopsy with labs pending for complement assessment and lupus confirmation. Patient denies fevers, chills, nausea, emesis, chest pain. Objective Data Objective Data Vital Signs: Vital Signs Temp Pulse Resp BP Pulse Ox O2 Del Method 98.1 F 80 18 153/57 H 95 Room Air 10/05/22 00:19 10/05/22 00:19 10/05/22 00:19 10/05/22 00:19 10/05/22 00:19 10/05/22 00:19 Oxygen Delivery Method Room Air Weight: 159 lb 9.835 oz Body Mass Index (BMI) 24.3 Intake & Output: Intake and Output for Last 24 Hours 10/03/22 10/04/22 10/05/22 23:59 23:59 23:59 Intake Total 2590 / 2990 2631.66 / 2631.66 Balance 2590 / 2990 2631.66 / 2631.66 Lab / Micro Data 10/05/22 06:20 10/05/22 06:20 Labs: Laboratory Results - last 24 hr 10/04/22 06:16: POC Glucose 329 H 10/04/22 06:30: WBC 24.2 H, RBC 3.48 L, Hgb 9.8 L, Hct 31.2 L, MCV 89.7, MCH 28.2, MCHC 31.4 L, RDW Std Deviation 51.7 H, RDW Coeff of Dana 15.9 H, Plt Count 360, MPV 9.7, Immature Gran % (Auto) 0.900, Neut % (Auto) 94.0 H, Lymph % (Auto) 3.0 L, Garden % (Auto) 1.9, Eos % (Auto) 0.0, Baso % (Auto) 0.2, Absolute Neuts (auto) 22.7 H, Absolute Lymphs (auto) 0.72 L, Nucleated RBC % 0, Anisocytosis 1+, Sodium 140, Potassium 4.8, Chloride 114 H, Carbon Dioxide 17.0 L, Anion Gap 9, BUN 41 H, Creatinine 2.75 H, Estim Creat Clear Calc 27.98, Est GFR (MDRD) Af Amer 31 L, Est GFR (MDRD) Non-Af 25 L, BUN/Creatinine Ratio 14.9, Glucose 343 H, Calcium 8.6, Total Bilirubin 0.20, AST 9 L, ALT 18, Alkaline Phosphatase 113, Total Protein 7.1, Albumin 2.6 L, Globulin 4.5 H, Albumin/Globulin Ratio 0.6 L 10/04/22 12:08: POC Glucose 287 H 10/04/22 12:23: U Random Total Protein 296.0 H, Urine Creatinine 56.30, Protein/Creatinin Ratio 5258 H 10/04/22 17:03: POC Glucose 316 H 10/04/22 21:55: POC Glucose 330 H Micro: Microbiology 10/03/22 00:50 Stool C. difficile DNA Amplification - Final 10/02/22 17:25 Urine, Clean Catch Urine Culture - Final Culture exhibits no growth. 10/02/22 17:25 Urine, Clean Catch Legionella Antigen - Final 10/02/22 17:25 Urine, Clean Catch Streptococcus pneumoniae Antigen (M - Final 10/03/22 08:50 Sputum, Expectorated/Coughed Gram Stain - Final 10/03/22 00:50 Stool Enteric Bacteriology - Final 10/02/22 16:05 Mucosa - Nose Respiratory Panel (PCR) - Final 10/02/22 14:33 Nasal Secretion SARS-CoV-2 & FLU Antigen (Rapid) - Final Physical Exam Narrative Physical Examination: General: Awake, alert, oriented x 3 and cooperative, seated upright in PCU bed, no acute complaints at this time, amenable for discharge. Skin: Normal color, normal turgor, no icterus, no cyanosis. HEENT: AT/NC, EOMI, PERRLA, MMM. Lungs: Diminished, greater bases, improved effort, no rales, rhonchi or wheezing. Heart: Regular rate and rhythm; no gallop, rub audible. Abdomen: Soft, NTTP, normalizing bowel sounds, ostomy in place with output noted. Extremities: No cyanosis, clubbing, or edema. Neurological: Patient awake, alert, oriented as noted, cognitive function intact; pupils equally reactive to light and accommodation, cranial nerves II- XII grossly normal, moving all 4 extremities, no focal deficits, strength improved, mildly to moderately global decrease secondary to acute presentation. Psychiatric: Affect appears less fatigued, normal, no acute evidence of depressive or anxiety feelings. Assessment & Plan Assessment/Plan (1) NATHANIEL (acute kidney injury): PLAN: Plan The patient is a 57 y/o M w/ PMHx: CKD stage III unclear subtype, Chronic normocytic anemia/AOCD, COPD, CAD, Diabetes mellitus type II, GERD, HTN, HLD, Lupus, CAD s/p PCI, Hx protracted severe BL groin hidradenitis/perineal/buttock abscesses with multiple surgical interventions with chronic perineal wounds and LLQ colostomy with prolapse who presents to the [facility] ED on 10/02/22 with history of left upper quadrant and left-sided lower abdominal pain as well as mild to moderate cough with productive sputum ongoing of the last 2 to 3 weeks although no marked dyspnea nor any recent fevers or chills but given ongoing symptoms prompted eventual ED evaluation. #1. Acute on Chronic COPD exacerbation chest x-ray does note left upper lobe and left lower lobe possible atelectasis versus developing pneumonia, CT abdomen and pelvis with a lower thorax was only noted emphysematous changes with scattered subsegmental atelectasis, will maintain on oxygen with wean as tolerated to room air, continue ATC duonebs, PRN albuterol, IV methylprednisolone, HOB, IS parameters, sputum Cx pending, urine antigens negative, full respiratory viral panel negative, maintained on antibiotic therapy Rocephin and Flagyl given #2 with penicillin allergy. Given also noted #2 once appropriate for discharge would plan transition to oral cefdinir pending creatinine clearance but currently if less than 30 would be 300 mg daily as well as Flagyl 500 mg 3 times daily to complete at least a 10 treatment therapy. #2. Acute Diverticulitis: CT abdomen and pelvis with acute diverticulitis involving the large bowel within the left lower quadrant colostomy hernia sac, 2 tubular soft tissue tracks in the bilateral gluteal folds compatible with patient's known fistula tracts, trace gas in the tract in the right appears grossly similar to prior study, cholelithiasis without any CT findings of acute cholecystitis, diffuse hepatic steatosis, small hiatal hernia. Will maintain on hydration, monitor I&Os, tolerated clear liquids, currently transitioned to ADA diet, maintained on Rocephin and Flagyl regimen, continue home PPI, anti- emetics, pain regimen PRN, enteric stool negative. 10/04/22 CBC w/ WBC 24.2 with L shift; however, he is on IV solumedrol as noted #1. Once appropriate for discharge would plan transition to oral cefdinir pending creatinine clearance but currently if less than 30 would be 300 mg daily as well as Flagyl 500 mg 3 times daily to complete at least a 10 day treatment therapy. #3. Acute kidney injury on CKD stage III: Secondary to potentially uncontrolled hypertensive nephropathy but also given acute diverticulitis could potentially have had increased output through his colostomy with GI losses. Admission BUN/Cr 36/2.83, prior baseline creatinine noted to be primarily. Administered IV fluid bolus in the ED with continued maintenance IV fluids, will hold nephrotoxic medication, UA not marked appearing but urine cultures pending, urine total protein 138.4, urine random sodium 92, urine creatinine less than 13, urine osmolality 248, urine potassium 9.0, urine chloride 97, Nephrology consulted and pending. 10/03/22 BUN/Cr 35/2.49->10/04/22 BUN/Cr 41/2.75-->10/05/22 BUN/Cr 48/2.68. Also they are obtaining additional autoimmune work-up for Lupus to confirm (Pending c-ESPINOZA/p-ANCA, C3/C4) but patient may require renal Bx in the [facility] outpatient. U total protein 296, U Protein/Cr ratio 5258. Renal fx has minimal decreased as noted, per 10/04/22 discussion with Nephrology may possible consider discharge to home today with early outpatient follow-up but will re- discuss. #4. Hyperkalemia, mild: Admission potassium 5.2, no concerning EKG findings, mild, no evidence of hemolysis mentioned, administered IV fluid bolus and myriam ntenance IV fluids, repeat CMP 10/03/2022 K 5.5, administered hyperkalemia protocol, repeat 10/03/22 K 4.2, will continue to trend, 10/05/22 K 4.9. #5. Hypertension, uncontrolled: Likely contributing to presentation, given acute kidney injury lisinopril held, continued on amlodipine, 10/04/22 increased metoprolol and oral hydralazine regimen->Nephrology changed to labetolol from metoprolol. Still ongoing elevated BP. 10/05/22 will add clonidine BID with dose now and further adjust as needed. Likely will continue to need adjustments but this may be done outpatient. PRN IV additional hydralazine. #6. Hyperlipidemia: Not on statin therapy, clarifying regimen. #7. CAD: Status post PCI, will continue patient home Plavix, metoprolol, lisinopril regimen, not on statin therapy per current list but clarifying. #8. Hx protracted severe BL groin hidradenitis/perineal/buttock abscesses: Patient with multiple surgical interventions with chronic perineal wounds and LLQ colostomy with prolapse, encourage offloading, positional changes, barrier creams. #9. Diabetes mellitus type II: Clarifying regimen, will hold oral regimen, from current list does not appear to be on insulin therapy, last hemoglobin A1c noted 10/01/2022 7.9%, ADA diet, accu checks w/ ISS. #10. Lupus: Patient on chronic steroids, holding as noted on IV solumedrol, transition back once completed steroid regimen for acute phase. #11. Chronic normocytic anemia: Admission hemoglobin 9.8, MCV 87.3, baseline primarily has been 10, stable, 10/05/22 Hgb 9.3, continue to trend. #12. Tobacco Abuse: Encouraged cessation, inpatient consultation per RT, NR if desired. #13. GERD: We will continue patient on PPI. #14. DVT Prophylaxis: Renally dosed lovenox. #15. CODE status: Full Code. Charges/Coding Visit Charges Inpatient E&M: 82364 Subs Hosp L2
[2022-10-05 06:24] LABS: Bedside Glucose 408 mg/dL (74-106)
[2022-10-05] MEDS: hydrALAZINE 50 MG Tablet 100 MG PO (06:25)
[2022-10-05 06:48] LABS: Absolute Lymphocyte Count 0.49 X10^3/uL (0.83-4.51); Absolute Neutrophil Count 14.7 X10^3/uL (2.0-7.7); Basophil# 0.01 X10^3/uL; Basophil% 0.1 % (0-1); Hematocrit 29.6 % (40-54); Hemoglobin 9.3 g/dL (13.0-16.5); Lymphocyte # 0.49 X10^3/ul (0.83-4.51); Lymphocyte % 3.1 % (19-41); Mean Corp Hgb Conc 31.4 g/dL (32-36); Mean Corpuscular Hgb 28.5 pg (27.0-32.0); Mean Corpuscular Volume 90.8 fL (80-94); Mean Platelet Vol. 9.9 fl (6.2-12.0); Monocyte# 0.34 X10^3/uL; Monocyte% 2.2 % (0-10); NRBC Flagged by Analyzer 0 % (0-5); Neutrophil # 14.69 X10^3/uL (2.7-7.7); Neutrophil % 93.5 % (47-70); POSITIVE DIFFERENTIAL YES; Platelet Count 289 K/mm3 (150-450); RBC Distribution Width CV 16.1 % (11.6-14.6); RBC Distribution Width SD 53.7 fl (35.1-43.9); Red Blood Count 3.26 M/mm3 (4.6-6.2); White Blood Count 15.7 K/mm3 (4.4-11.0)
[2022-10-05 07:06] LABS: Differential Indicated SCAN CRITERIA MET
[2022-10-05 07:08] LABS: Anisocytosis 1+
[2022-10-05 07:23] LABS: ALB/GLOB Ratio 0.6 RATIO (0.9-2.4); AST(SGOT) 9 U/L (15-37); Alanine Aminotransfer ALT/SGPT 16 U/L (16-61); Albumin, Serum 2.5 g/dL (3.2-5.0); Alkaline Phosphatase 99 U/L (45-117); Anion Gap 7 (5-15); BUN 48 mg/dL (7-18); BUN/Creat Ratio 17.9 RATIO (10-20); Calcium,Total 8.2 mg/dL (8.5-10.1); Chloride 115 mmol/L (98-107); Creatinine, Serum 2.68 mg/dL (0.70-1.30); EST Glomerular Filtration Rate 26 mL/min (>60); Est Glom Filt Rate - Afr Amer 32 mL/min (>60); Estimated Creatinine Clearance 28.71 ml/min; Globulin 4.2 g/dL (2.2-4.2); Glucose 435 mg/dL (74-106); Potassium 4.9 mmol/L (3.5-5.1); Protein, Total 6.7 g/dL (6.4-8.2); Sodium Level 140 mmol/L (136-145)
[2022-10-05] MEDS: guaiFENesin 1,200 MG Tablet 1200 MG PO (09:29)
[2022-10-05] MEDS: Clopidogrel Bisulfate 75 MG Tablet PO (09:30)
[2022-10-05] MEDS: Tolterodine Tartrate 2 MG CAP.SA PO (09:30)
[2022-10-05] MEDS: Pantoprazole Sodium 40 MG Tablet PO (09:30)
[2022-10-05] MEDS: Labetalol 200 MG Tablet PO (09:30)
[2022-10-05] MEDS: amLODIPine 10 MG Tablet PO (09:30)
[2022-10-05] MEDS: Enoxaparin 30 MG/0.3 ML Syringe SC (09:33)
[2022-10-05] MEDS: cloNIDine HCl 0.1 MG Tablet PO (09:39)
[2022-10-05] MEDS: Ceftriaxone 1 GM/50 ML BAG IV (09:39)
--- NOTE | 2022-10-05 09:42 | PN.RENAL_ITS ---
Subjective Subjective Sitting on side of bed, no complaints. Reports appetite improved. No overnight events. Hoping to go home today. Objective Data Objective Data Vital Signs: Vital Signs Temp Pulse Resp BP Pulse Ox O2 Del Method 97.9 F 70 18 182/68 H 100 Room Air 10/05/22 09:20 10/05/22 09:20 10/05/22 09:20 10/05/22 09:20 10/05/22 09:20 10/05/22 09:20 Oxygen Delivery Method Room Air Weight: 72.4 kg Body Mass Index (BMI) 24.3 Intake & Output: Intake and Output for Last 24 Hours 10/03/22 10/04/22 10/05/22 23:59 23:59 23:59 Intake Total 2590 / 2990 2631.66 / 2631.66 Balance 2590 / 2990 2631.66 / 2631.66 Lab / Micro Data 10/05/22 06:20 10/05/22 06:20 Labs: Laboratory Results - last 24 hr 10/04/22 12:08: POC Glucose 287 H 10/04/22 12:23: U Random Total Protein 296.0 H, Urine Creatinine 56.30, Protein/Creatinin Ratio 5258 H 10/04/22 17:03: POC Glucose 316 H 10/04/22 21:55: POC Glucose 330 H 10/05/22 06:02: POC Glucose 408 H 10/05/22 06:20: WBC 15.7 H, RBC 3.26 L, Hgb 9.3 L, Hct 29.6 L, MCV 90.8, MCH 28.5, MCHC 31.4 L, RDW Std Deviation 53.7 H, RDW Coeff of Dana 16.1 H, Plt Count 289, MPV 9.9, Immature Gran % (Auto) 1.100 H, Neut % (Auto) 93.5 H, Lymph % (Auto) 3.1 L, Kleberg % (Auto) 2.2, Eos % (Auto) 0.0, Baso % (Auto) 0.1, Absolute Neuts (auto) 14.7 H, Absolute Lymphs (auto) 0.49 L, Nucleated RBC % 0, Anisocyto sis 1+, Sodium 140, Potassium 4.9, Chloride 115 H, Carbon Dioxide 18.0 L, Anion Gap 7, BUN 48 H, Creatinine 2.68 H, Estim Creat Clear Calc 28.71, Est GFR (MDRD) Af Amer 32 L, Est GFR (MDRD) Non-Af 26 L, BUN/Creatinine Ratio 17.9, Glucose 435 H, Calcium 8.2 L, Total Bilirubin 0.20, AST 9 L, ALT 16, Alkaline Phosphatase 99, Total Protein 6.7, Albumin 2.5 L, Globulin 4.2, Albumin/Globulin Ratio 0.6 L Micro: Microbiology 10/03/22 08:50 Sputum, Expectorated/Coughed Gram Stain - Final 10/03/22 08:50 Sputum, Expectorated/Coughed Respiratory Culture - Final Mixed normal respiratory dunia. No Streptococcus pneumoniae, beta-hemolytic Streptococcus or Staphylococcus aureus isolated. 10/03/22 00:50 Stool C. difficile DNA Amplification - Final 10/02/22 17:25 Urine, Clean Catch Urine Culture - Final Culture exhibits no growth. 10/02/22 17:25 Urine, Clean Catch Legionella Antigen - Final 10/02/22 17:25 Urine, Clean Catch Streptococcus pneumoniae Antigen (M - Final 10/03/22 00:50 Stool Enteric Bacteriology - Final 10/02/22 16:05 Mucosa - Nose Respiratory Panel (PCR) - Final 10/02/22 14:33 Nasal Secretion SARS-CoV-2 & FLU Antigen (Rapid) - Final Physical Exam Narrative Alert and oriented x3, no apparent distress S1, S2, RRR Lung sounds clear anteriorly and posteriorly. No wheezes, rhonchi, rales noted Abdomen soft nontender, ostomy intact No edema Assessment & Plan Assessment/Plan (1) NATHANIEL (acute kidney injury): (2) Hyperkalemia: PLAN: Plan This is a 57-year-old male with past medical history significant for diabetes mellitus type 2 (last A1c 7.9%, per patient report currently managed by diet), history of nonhealing hydradenitis ulcer right inguinal, scrotal and perineal area followed by Dr. Smith, chronic tobacco abuse, hypertension, coronary artery disease status post coronary stent placement, history of diverting colostomy (September 2020) who presented to the emergency room under the direction of primary care for elevated creatinine. Nephrology consulted for NATHANIEL. - NATHANIEL superimposed on CKD; Creatinine 3.27 mg/dL on admission, patient started on IV fluids --> SCr improved 2.49 mg/dL, IVF stopped SCr 2.75mg/dL--> restarted back on IV fluids, today serum creatinine 2.68 mg/dL. Patient had been on lisinopril but currently on hold. Blood pressures were elevated in the emergency room, 206/79. Noncontrast CT of abdomen and pelvis did not show any hydronephrosis or nephrolithiasis. UA 100 protein, no blood. NATHANIEL in setting of volume depletion with concurrent PAULINE inhibitor effect, uncontrolled HTN with episodes of low bps which also may also be contributing to NATHANIEL vs possible CKD progression??. At this time there is no acute indication for REFERRAL AND INFORMATION AIDE, patient is nonoliguric and volume status acceptable, bicarb acceptable. Potassium slightly elevated last few days but today K+ 4.8. Hyperkalemia from NATHANIEL, dietary indiscretion and concurrent PAULINE inhibitor. Patient has normal baseline potassium trends. - CKD stage 3: In reviewing past creatinine trends patient has had mild elevated creatinine: 1.3mg/dL 12/2020, 1.2-1.6mg/dL 2021 and SCr 1.56 mg/dL as of April of this year. Urine protein creatinine ratio 6 g March 2021. Urine protein creatinine ratio 5258 mg/g collected yesterday. -Hypertension, blood pressures remain elevated 182/68, continue labetolol 200mg bid, amlodipine and hydralazine. Clonidine added. Patient reports misses blood pressure medications at home, noncompliant with BP meds. Lisinopril on hold due to NATHANIEL and patient will hold this at time of discharge as well. - patient reports work up for possible Lupus per primary care done late 2020 to early [address] Cunningham. Patient states had been on prednisone per primary team but then stopped and was off prednisone for at least 9 months. Then ordered to start prednisone after seen by primary this past Saturday for difficulty breathing. ESPINOZA + 01/2021, anti-DS DNA + (elevated at 12). IgG, IgM normal, IgA elevated 814, serum immunofixation resulted presence of monoclonal protein unclear. Chronic low Albumin under 2.9 since at least 2018. - discussed with patient given above findings, complicated history that once more stable, out of hospital may undergo kidney biopsy. Per patient he is on plavix per Dr. Parks, history of PAD; he also has coronary stent - non-contrast CT A/P: acute diverticulitis on flagyl and IV hydration - acute on chronic COPD - Hx chronic protracted severe B/L groin hidradenitis/perineal/buttock abscesses with multiple surgical interventions with chronic perineal wounds and LLQ colostomy with prolapse - Okay for discharge per renal standpoint. Patient has follow-up appointment with Dr. Baird in [place] office October 19 at 1130
--- NOTE | 2022-10-05 11:11 | DS.PCM_ITS ---
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 Acute Hypoxia secondary to Acute on Chronic COPD exacerbation #2. Acute Diverticulitis #3. Acute kidney injury on CKD stage III, Secondary to potentially uncontrolled hypertensive nephropathy but also given acute diverticulitis could potentially have had increased output through his colostomy with GI losses and nephrotoxic medications #4. Hyperkalemia, mild #5. Hypertension, uncontrolled #6. Hyperlipidemia #7. CAD Status post PCI #8. Hx protracted severe BL groin hidradenitis/perineal/buttock abscesses #9. Diabetes mellitus type II (10/01/2022 7.9%) #10. Lupus, chart documented #11. Chronic normocytic anemia #12. Tobacco Abuse #13. GERD #14. CODE status: Full Code. Medications at Discharge Home Medications tramadol 50 mg tablet 100 mg (2 x 50 mg) PO TID PRN pain (scale score 7-10) 30 days #180 tabs 03/28/21 amlodipine 10 mg tablet 10 mg PO DAILY BLOOD PRESSURE #30 tabs 11/06/21 clopidogrel 75 mg tablet 75 mg PO DAILY BLOOD THINNER #30 tabs 01/25/22 guselkumab 100 mg/mL subcutaneous syringe (Tremfya) 100 mg subcut Q4W ARTHRITIS 04/23/22 oxybutynin chloride 5 mg tablet,extended release 24 hr 5 mg PO DAILY OVERACTIVE BLADDER 10/01/22 albuterol sulfate 90 mcg/actuation aerosol inhaler 2 puff inhalation Q2H PRN PRN shortness of breath or wheezing #8.5 grams 10/05/22 cefdinir 300 mg capsule 300 mg PO DAILY 7 days #7 caps 10/05/22 clonidine HCl 0.1 mg tablet 0.1 mg PO BID 30 days #60 tabs 10/05/22 fluticasone 250 mcg-salmeterol 50 mcg/dose blistr powdr for inhalation (Advair Diskus) 1 inh inhalation Q12H #60 ea 10/05/22 guaifenesin 1,200 mg tablet, extended release 12 hr (Mucus Relief ER) 1,200 mg PO BID 10 days #20 tabs 10/05/22 hydralazine 50 mg tablet 100 mg (2 x 50 mg) PO TID 30 days #180 tabs 10/05/22 labetalol 200 mg tablet 200 mg PO BIDCM 60 days #120 tabs 10/05/22 metronidazole 500 mg tablet 500 mg PO Q8H 7 days #21 tabs 10/05/22 prednisone 10 mg tablet See Taper PO DAILY #30 tabs 10/05/22 Hospital Course Operations None Procedures EKG Summary of Care Provided Minutes Spent on Discharge: 35 Hospital Course: The patient is a 57 y/o M w/ PMHx: CKD stage III unclear subtype, Chronic normocytic anemia/AOCD, COPD, CAD, Diabetes mellitus type II, GERD, HTN, HLD, Lupus, CAD s/p PCI, Hx protracted severe BL groin hidradenitis/perineal/buttock abscesses with multiple surgical interventions with chronic perineal wounds and LLQ colostomy with prolapse who presented to the [facility] ED on 10/02/22 with history of left upper quadrant and left-sided lower abdominal pain as well as mild to moderate cough with productive sputum ongoing of the last 2 to 3 weeks although no marked dyspnea nor any recent fevers or chills but given ongoing symptoms prompted eventual ED evaluation. Chest x-ray does note left upper lobe and left lower lobe possible atelectasis versus developing pneumonia, CT abdomen and pelvis with a lower thorax was only noted emphysematous changes with scattered subsegmental atelectasis, maintained on oxygen with wean as room air, continued ATC duonebs, PRN albuterol, IV methylprednisolone, HOB, IS parameters, urine antigens negative, full respiratory viral panel negative, maintained on antibiotic therapy Rocephin and Flagyl given concurrent diverticulitis with pe nicillin allergy. Patient discharged transitioned to oral prednisone taper, albuterol inhaler, advair in addition to abx therapy oral cefdinir 300 mg daily as well as Flagyl 500 mg 3 times daily to complete at least a 10 day treatment therapy for concurrent abdominal infection. CT abdomen and pelvis with acute diverticulitis involving the large bowel within the left lower quadrant colostomy hernia sac, 2 tubular soft tissue tracks in the bilateral gluteal folds compatible with patient's known fistula tracts, trace gas in the tract in the right appears grossly similar to prior study, cholelithiasis without any CT findings of acute cholecystitis, diffuse hepatic steatosis, small hiatal hernia. Initially maintained on IVFs, tolerated clears and was advanced without issue, enteric stool negative. Maintained on IV rocephin and IV flagyl with oral transition as noted above at discharge. Admission with NATHANIEL on CKD stage III secondary to potentially uncontrolled hypertensive nephropathy but also given acute diverticulitis could potentially have had increased output through his colostomy with GI losses and nephrotoxic medications. Admission BUN/Cr 36/2.83, administered IV fluid, held nephrotoxic medication, UA not marked appearing but urine cultures pending, urine total protein 138.4, urine random sodium 92, urine creatinine less than 13, urine osmolality 248, urine potassium 9.0, urine chloride 97, Nephrology consulted and pending. 10/03/22 BUN/Cr 35/2.49->10/04/22 BUN/Cr 41/2.75-->10/05/22 BUN/Cr 48/2.68. Nephrology obtained autoimmune work-up for Lupus for confirmation (Pending c-ESPINOZA/p-ANCA, C3/C4) but patient may require renal Bx in the future outpatient. U total protein 296, U Protein/Cr ratio 5258. Patient with elevated BP upon presentation, likely contributing to presentation, given acute kidney injury lisinopril held, continued on amlodipine, 10/04/22 increased metoprolol and oral hydralazine regimen->Nephrology changed to labetolol from metoprolol. 10/05/22 will add clonidine BID with planned continued adjustments outpatient. Patient discharged to home in improved condition with PCP, Nephrology follow-up at discharge with medication changes and regimen additions for acute illnesses at discharge as noted. Weight / BMI Weight Weight: 159 lb 9.835 oz Body Mass Index (BMI) 24.3 ABG / Lab / Microbiology Data 10/05/22 06:20 10/05/22 06:20 Laboratory: Laboratory Results - last 24 hr 10/04/22 12:08: POC Glucose 287 H 10/04/22 12:23: U Random Total Protein 296.0 H, Urine Creatinine 56.30, Protein/Creatinin Ratio 5258 H 10/04/22 17:03: POC Glucose 316 H 10/04/22 21:55: POC Glucose 330 H 10/05/22 06:02: POC Glucose 408 H 10/05/22 06:20: WBC 15.7 H, RBC 3.26 L, Hgb 9.3 L, Hct 29.6 L, MCV 90.8, MCH 28.5, MCHC 31.4 L, RDW Std Deviation 53.7 H, RDW Coeff of Dana 16.1 H, Plt Count 289, MPV 9.9, Immature Gran % (Auto) 1.100 H, Neut % (Auto) 93.5 H, Lymph % (Auto) 3.1 L, [place] % (Auto) 2.2, Eos % (Auto) 0.0, Baso % (Auto) 0.1, Absolute Neuts (auto) 14.7 H, Absolute Lymphs (auto) 0.49 L, Nucleated RBC % 0, Anisocytosis 1+, Sodium 140, Potassium 4.9, Chloride 115 H, Carbon Dioxide 18.0 L, Anion Gap 7, BUN 48 H, Creatinine 2.68 H, Estim Creat Clear Calc 28.71, Est GFR (MDRD) Af Amer 32 L, Est GFR (MDRD) Non-Af 26 L, BUN/Creatinine Ratio 17.9, Glucose 435 H, Calcium 8.2 L, Total Bilirubin 0.20, AST 9 L, ALT 16, Alkaline Phosphatase 99, Total Protein 6.7, Albumin 2.5 L, Globulin 4.2, Albumin/Globulin Ratio 0.6 L Microbiology: Microbiology 10/03/22 08:50 Sputum, Expectorated/Coughed Gram Stain - Final 10/03/22 08:50 Sputum, Expectorated/Coughed Respiratory Culture - Final Mixed normal respiratory dunia. No Streptococcus pneumoniae, beta-hemolytic Streptococcus or Staphylococcus aureus isolated. 10/03/22 00:50 Stool C. difficile DNA Amplification - Final 10/02/22 17:25 Urine, Clean Catch Urine Culture - Final Culture exhibits no growth. 10/02/22 17:25 Urine, Clean Catch Legionella Antigen - Final 10/02/22 17:25 Urine, Clean Catch Streptococcus pneumoniae Antigen (M - Final 10/03/22 00:50 Stool Enteric Bacteriology - Final 10/02/22 16:05 Mucosa - Nose Respiratory Panel (PCR) - Final 10/02/22 14:33 Nasal Secretion SARS-CoV-2 & FLU Antigen (Rapid) - Final D/C Instructions Discharge Diet: Low fat / Low cholesterol and 1800 Calorie Control Diet May resume sexual activity in: 10-14 days Weight Bearing Status: Weight bearing as tolerated Call your doctor if you observe: Fever of 101 or Higher, Numbness or Tingling, Inability to have a bowel movement, Shortness of breath, Chest pain, Increased palpitations (irregular heartbeat) and Uncontrolled pain Meaningful Use Info Meaningful Use Diagnoses (Choose all that apply): None applicable Discharge Plan Admission Admit Date/Time: 10/02/22 14:12 Primary Reason for Your Visit: COPD Exacerbation, Diverticulitis, NATHANIEL on CKD Attending Provider: Bhavani Wall Primary Care Provider: Adina Bhat NP Consulting Providers: Pat Baird; Michael Mojica Instructions Patient Instructions: Diverticulosis and Diverticulitis, Discharge Instructions: COPD Additional Instructions / Restrictions: ADDITIONAL FOLLOW-UP/INSTRUCTIONS: Please continue your antibiotic therapy as well as your inhalers and steroid for recent COPD infection. As noted above please complete your antibiotic therapy for also concurrent diverticulitis infection and you may continue your diet as instituted in the hospital. In the admission you had noted acute kidney injury on chronic kidney disease and your kidney doctors are following you. There are autoimmune work-up labs that are pending at discharge and will be reviewed with nephrology at follow-up with their service. Please continue to hold your lisinopril regimen. Please maintain your visit that was already made on 10/19/2022. Discharge Orders/Prescriptions Prescriptions: New clonidine HCl 0.1 mg Tablet 0.1 mg PO BID 30 Days Qty: 60 0RF labetalol 200 mg Tablet 200 mg PO BIDCM 60 Days Qty: 120 0RF hydralazine 50 mg Tablet 100 mg PO TID 30 Days Qty: 180 0RF Mucus Relief ER 1,200 mg Tablet Extended Release 12hr 1,200 mg PO BID 10 Days Qty: 20 0RF metronidazole 500 mg tablet 500 mg PO Q8H 7 Days Qty: 21 0RF cefdinir 300 mg capsule 300 mg PO DAILY 7 Days Qty: 7 0RF albuterol sulfate 90 mcg/actuation HFA aerosol inhaler 2 puff inhalation Q2H PRN PRN (Reason: shortness of breath or wheezing) Qty: 8.5 0RF fluticasone propion-salmeterol [Advair Diskus] 250-50 mcg/dose blister with device 1 inh inhalation Q12H Qty: 60 0RF prednisone 10 mg tablet See Taper PO DAILY Qty: 30 0RF Taper: Prednisone Taper 40 mg WITH BREAKFAST for 3 Days and 0 Hour 30 mg WITH BREAKFAST for 3 Days and 0 Hour 20 mg WITH BREAKFAST for 3 Days and 0 Hour 10 mg WITH BREAKFAST for 3 Days and 0 Hour Continued tramadol 50 mg tablet 100 mg PO TID PRN (Reason: pain (scale score 7-10)) 30 Days Qty: 180 5RF amlodipine 10 mg tablet 10 mg PO DAILY Qty: 30 12RF Tremfya 100 mg/mL syringe 100 mg subcut Q4W oxybutynin chloride 5 mg tablet extended release 24hr 5 mg PO DAILY clopidogrel 75 mg tablet 75 mg PO DAILY Qty: 30 12RF Discontinued lisinopril 40 mg tablet 40 mg PO DAILY Qty: 30 12RF prednisone 20 mg tablet 40 mg PO DAILY 10 Days Qty: 20 0RF clarithromycin 500 mg tablet 500 mg PO BID Qty: 28 0RF Rx Instructions: take after eating or with food metoprolol succinate 25 mg tablet extended release 24 hr 25 mg PO DAILY Referrals / Follow Up: Pat Baird MD [Med Staff - Consulting] - 10/19/22 11:30 am (Please follow-up on 10/19/22 11:30 am as already arranged.) Adina Bhat NP, CERAMIC PAINTER-C [Primary Care Provider] - (Follow-up in 3-5 days to review admission and have repeat BMP.) Disposition Disposition (needs filled in before D/C Order can be placed): Home, Self Care Charges/Coding Visit Charges Inpatient E&M: 95568 Disch Hosp >30min
--- NOTE | 2022-10-05 13:12 | CASEMGMT ---
Patient has order for discharge. RN CM in to inquire if patient has needs at discharge. Patient and deny needs at discharge. Patient had no further questions or concerns at this time.
[2022-10-05 14:10] LABS: Complement C3 115 mg/dL (82-167); Cytoplasmic Ab (C-ANCA) <1:20 titer (Neg:<1:20); Perinuclear Ab (P-ANCA) <1:20 titer (Neg:<1:20)
== END 2022-10-05 13:36 | disposition home or self-care (01) | DRG 191 ==
LOC: ED 14:13 → PCU 14:43
PROVIDERS: Nurse Practitioner Adult Health; Admitting Provider Internal Medicine; Emergency Provider Emergency Medicine; PCP Nurse Practitioner; Visit Provider Family Medicine
DX: J44.1 Chronic obstructive pulmonary disease with (acute) exacerbation (principal); N17.9 Acute kidney failure, unspecified; K57.32 Diverticulitis of large intestine without perforation or abscess without bleeding; D63.1 Anemia in chronic kidney disease; E11.22 Type 2 diabetes mellitus with diabetic chronic kidney disease; E11.51 Type 2 diabetes mellitus with diabetic peripheral angiopathy without gangrene; M32.9 Systemic lupus erythematosus, unspecified; N18.30 Chronic kidney disease, stage 3 unspecified; Z93.3 Colostomy status; I12.9 Hypertensive chronic kidney disease with stage 1 through stage 4 chronic kidney disease, or unspecified chronic kidney disease; I25.10 Atherosclerotic heart disease of native coronary artery without angina pectoris; E87.5 Hyperkalemia; F17.210 Nicotine dependence, cigarettes, uncomplicated; K21.9 Gastro-esophageal reflux disease without esophagitis; E78.5 Hyperlipidemia, unspecified; L73.2 Hidradenitis suppurativa; Z91.148 Patient's other noncompliance with medication regimen for other reason; Z95.5 Presence of coronary angioplasty implant and graft; Z79.02 Long term (current) use of antithrombotics/antiplatelets; Z79.52 Long term (current) use of systemic steroids; Z79.899 Other long term (current) drug therapy
CPT/HCPCS: 36415; 71045; 74176; 80048; 80053; 81001; 82436; 82570; 82962; 83605; 83735; 83880; 83935; 84100; 84133; 84156; 84300; 85025; 86141; 86160; 86256; 87070; 87086; 87205; 87428; 87449; 87493; 87506; 87633; 93005; 94640; 94668; 97802; 99252; 99284; J7030; J7040; J7050; A4216; G0463

== ENCOUNTER 2022-10-08 08:45 | Outpatient (RCR) | payer MEDICARE, BC, SELFPAY ==
[2022-09-11 00:35] VITALS: BP 206/79; PULSE 63; RESP 16; TEMP 36.3
[2022-09-24 08:39] VITALS: BP 216/72; PULSE 80; RESP 18; TEMP 36.9
--- NOTE | 2022-09-24 09:40 | WC ---
Notified Adina GEE regarding patient's elevated BP via text. Patient was advised to report the the ER by Antonella Azul NP but patient states he's not going. Multiple repeat of BP readings performed and documented and the systolic is consistent in the 200's. No further action performed at this time, patient ambulated without difficulty to his car.
--- NOTE | 2022-09-24 12:24 | PN.PCM_ITS ---
History of Present Illness Date of Service: 09/24/22 Chief Complaint: Nonhealing hidradenitis ulcer right inguinal, scrotal and perineal area History of Wound: 56 year old male who is known to me. He has a history significant for hidradenitis, DM type II, HTN, CAD, arterial insufficiency, and smoker. He had surgery on 11/23/21 for 1. Surgical preparation right inguinal area with excision suppurative hidradenitis abscess (112 cm2, and 192 cm2 total). 2. Surgical preparation right scrotum with incision and drainage and excision suppurative hidradenitis abscess (50 cm2, and 192 cm2 total). 3. Surgical preparation right perineal area with excision suppurative hidradenitis abscess (30 cm2, and 192 cm2 total). Operative wound cultures from 11/23/21 positive for Streptococcus constellatus and Corynebacterium striatum. He was placed on Cefdinir and has finished them. [facility]. Today he denies fevers, chills, nausea and vomiting. He states that he has a good appetite. He's been having intermittent flare-ups in his right perineal and perianal areas with induration extending onto his posterior thigh. He says he is ready for more surgery, probably in the Fall. Progress of Wound: Right groin wound is stable. Unable to locate the tunnel but he has thickened scar tissue in that area. Wound bed is pink. His blood pressure is 216/80 on the recheck, the first one was higher. It was suggested that he go to the ED to be evaluated but he declined. Objective Data Objective Data Vital Signs: Vital Signs Temp Pulse Resp BP 98.5 F 80 18 216/72 H 09/24/22 08:39 09/24/22 08:39 09/24/22 08:39 09/24/22 08:39 Charges/Coding Procedures Integumentary [id number]: [id number] Ayla subq tissue 20 sq cm/< Debridement Note Debridement Note Wound debrided: groin, scrotum, perineal area Laterality: Right Wound Grade/Stage: Stage IV Type of Debridement: Excisional debridement Anesthesia Used: 5% Lidocaine Gel Depth: Down to and including healthy tissue and in the subcutaneous layer Percentage of wound debrided: 100 Instrument Used: 5mm curette Tissue Removed: Devitalized tissue and biofilm Severity: Fat Layer Exposed Amount of bleeding with debridement: Mild Bleeding Controlled with: Pressure and Compression and gauze Patient tolerated procedure: Patient tolerated procedure well Post-Debridement Measurements and Additional Note: Post-Debridement Measurements/Treatment - Nurse 1 - General Ulcer Assessment Start: 09/24/22 08:39 Freq: Status: Active Protocol: ROC Activity Type Activity Date Activity User E-sign Co-sign Detail Recorded Client Recorded Date Recorded By Document 09/24/22 08:39 PL [id number] 09/24/22 08:43 PL 09/24/22 08:39 - Today's Visit Information Type of service Follow-up Visit (Physician/SEO PROFESSIONAL ) Arrival Mode Ambulatory Transfer Assistance None Patient Identification Verified (Name & Yes ) Patient Requires Transmission-Based No Precautions Safety Precautions NA Vital Signs Temperature (97.8 F-99.1 F) 98.5 F Temperature Source Temporal Pulse Rate (60-100) 80 Respiratory Rate (12-18) 18 Blood Pressure (90/60-120/80) 216/72 H Blood Pressure Mean (mm Hg) 120 History Since Last Visit- (Skip if this is Patient's initial visit) Have you changed medications since your No last visit? Any new allergies or adverse reactions No Had a fall/change in ADL's that may No increase risk of falls Signs or symptoms of abuse and/or No neglect since last visit Have you been in the hospital since your No last visit? Has dressing in place as prescribed Yes Has compression in place as prescribed N/A Has offloadiing in place as prescribed N/A Experienced any changes in pain level or No management Pain Scale: 0-10 Numeric Is Patient Pain Free? Yes - Nurse 2 - General Ulcer CM Notes Start: 09/24/22 08:39 Freq: Status: Active Protocol: Activity Type Activity Date Activity User E-sign Co-sign Detail Recorded Client Recorded Date Recorded By Document 09/24/22 09:03 LIZETTE [id number] 09/24/22 09:05 LIZETTE 09/24/22 09:03 Wound Center Nurse 2 #5scrotum/R Groin Cluster -Time 09:04 -Correct Patient Yes -Correct Side, Site, Position Yes -Correct Procedure Yes -Procedure Performed Yes -Type of Procedure Debridement -Clinical Debridement Subcutaneous -Tissue Removed Subcutaneous -Post Debridement (cm) - Length 1.6 -Post Debridement (cm) - Width 0.5 -Post Debridement (cm) - Depth 0.2 -Total Square (Post) (cm) 0.80 -Area of Debridement (cm) - Length 1.6 -Area of Debridement (cm) - Width 0.5 -Total Square (Area) (cm) 0.80 -Tunneling No -Undermining/Tunneling No -Circular Undermining No -Wound/Ulcer Outcome Not Healed -Ulcer Cleansing Rinsed/ Irrigated with Saline -Foul Odor after Cleansing No -Bioengineered Tissue No -Bleeding Controlled with Pressure -Treatment Response Procedure Tolerated Well -Offloading No -Debridement - Subq, 1st 20sq cm Yes Pain Scale: 0-10 Numeric Is Patient Pain Free? Yes - Nurse 3 - General Ulcer D/C NN Start: 09/24/22 08:39 Freq: Status: Active Protocol: Activity Type Activity Date Activity User E-sign Co-sign Detail Recorded Client Recorded Date Recorded By Document 09/24/22 09:15 PL [id number] 09/24/22 09:16 PL 09/24/22 09:15 Wound Care Center Nurse 3 #5scrotum/R Groin Cluster -Ulcer Cleansing Rinsed/ Irrigated with Saline -Foul Odor after Cleansing No -Primary Dressing Applied Aquacel AG 4x4 -Other Dressing ABD -Primary Dressing Covered/Secured with Secured with Tape -Aquacel AG 4x4 1 Pain Scale: 0-10 Numeric Is Patient Pain Free? Yes - Visit Discharge Discharge Condition Stable Ambulatory Status Ambulatory Transportation Private Auto Assessment/Plan Assessment/Plan (1) Ulcer of right groin with fat layer exposed: CODE(S): L98.492 - Non-pressure chronic ulcer of skin of other sites with fat layer exposed (2) Ulcer of perineum with fat layer exposed: CODE(S): L98.492 - Non-pressure chronic ulcer of skin of other sites with fat layer exposed (3) Suppurative hidradenitis: CODE(S): L73.2 - Hidradenitis suppurativa (4) Smoker: CODE(S): F17.200 - Nicotine dependence, unspecified, uncomplicated (5) Hypertension: CODE(S): I10 - Essential (primary) hypertension QUALIFIERS: Hypertension type: primary hypertension Qualified Code(s): I10 - Essential (primary) hypertension (6) Diabetes type 2, uncontrolled: CODE(S): E11.65 - Type 2 diabetes mellitus with hyperglycemia QUALIFIERS: Glycemic state: with hyperglycemia Qualified Code(s): E11.65 - Type 2 diabetes mellitus with hyperglycemia (7) Hemoglobin A1c greater than 8.0 percent: CODE(S): R73.09 - Other abnormal glucose PLAN: Plan Patient was evaluated at the wound healing center. Wound care - Right groin ulcer moistened Aquacel-Ag covered by gauze/ABD daily and prn to right groin.They are not packing into the tunnel at this time. Operative wound cultures from 11/23/21 positive for Streptococcus constellatus and Corynebacterium striatum. He completed Cefdinir. Creatinine repeat on 11/27/21, which was down to 1.62 from 1.73 on 11/25/21. Also, repeat K+ 4.0. Patient is on his Plavix. Left ischial ulcer wound culture obtained 02/14/21 which was positive for Corynebacterium striatum which is not typically treated with antibiotics. Encouraged increase protein intake and increase Vitamin C intake. Will need supplemental protein to help heal this wound. Encouraged patient to stop smoking as it may have deleterious effects on wound healing. Patient sees dermatology who is managing the medical portion of his hidradenitis. He is going to be scheduled to have debridement of the hidradenitis on his left ischial area in the fall after he completes getting wood cut for winter. His blood pressure is very elevated today with the recheck of 216/80. It was strongly suggested that he go to the ED. Patient declined going to the ED. He stated he took his blood pressure medication. I did discuss with him some of the more severe side effects of extremely elevated BP includes stroke and , which is why I would like him evaluated at the ED. He verbalized understanding. Instructed him to let his PCP, Adina Bhat ESTHETICIAN/SKIN THERAPIST know. Because I was concerned that he would not notify Adina, I had the wound center staff notify her of his elevated blood pressure. Follow up 2 weeks. Call or come in sooner if develop any questions or concerns.
[2022-10-08 08:47] VITALS: BP 154/56; PULSE 71; RESP 18; TEMP 35.9
--- NOTE | 2022-10-08 12:43 | PN.PCM_ITS ---
History of Present Illness Date of Service: 10/08/22 Chief Complaint: Nonhealing hidradenitis ulcer right inguinal, scrotal and perineal area History of Wound: 56 year old male who is known to me. He has a history significant for hidradenitis, DM type II, HTN, CAD, arterial insufficiency, and smoker. He had surgery on 11/23/21 for 1. Surgical preparation right inguinal area with excision suppurative hidradenitis abscess (112 cm2, and 192 cm2 total). 2. Surgical preparation right scrotum with incision and drainage and excision suppurative hidradenitis abscess (50 cm2, and 192 cm2 total). 3. Surgical preparation right perineal area with excision suppurative hidradenitis abscess (30 cm2, and 192 cm2 total). Operative wound cultures from 11/23/21 positive for Streptococcus constellatus and Corynebacterium striatum. He was placed on Cefdinir and has finished them. [facility] Today he denies fevers, chills, nausea and vomiting. He states that he has a good appetite. He's been having intermittent flare-ups in his right perineal and perianal areas with induration extending onto his posterior thigh. He says he is ready for more surgery, probably in the Fall. Progress of Wound: Right groin wound is slightly smaller. Wound bed is pink. He recently was in the hospital for diverticulitis and NATHANIEL and his blood pressure is under better control. Objective Data Objective Data Vital Signs: Vital Signs Temp Pulse Resp BP O2 Del Method 96.6 F L 71 18 154/56 H Room Air 10/08/22 08:47 10/08/22 08:47 10/08/22 08:47 10/08/22 08:47 10/08/22 08:47 Oxygen Delivery Method Room Air Charges/Coding Procedures Integumentary 111xxx-113xx: 23766 Ayla subq tissue 20 sq cm/< Debridement Note Debridement Note Wound debrided: groin, scrotum, perineal area Laterality: Right Wound Grade/Stage: Stage IV Type of Debridement: Excisional debridement Anesthesia Used: 5% Lidocaine Gel Depth: Down to and including healthy tissue and in the subcutaneous layer Percentage of wound debrided: 100 Instrument Used: 3mm curette Tissue Removed: Devitalized tissue and biofilm Severity: Fat Layer Exposed Amount of bleeding with debridement: Mild Bleeding Controlled with: Pressure and Compression and gauze Patient tolerated procedure: Patient tolerated procedure well Post-Debridement Measurements and Additional Note: Post-Debridement Measurements/Treatment - Nurse 1 - General Ulcer Assessment Start: 09/24/22 08:39 Freq: Status: Active Protocol: ROC Activity Type Activity Date Activity User E-sign Co-sign Detail Recorded Client Recorded Date Recorded By Document 09/24/22 08:39 PL [id number] 09/24/22 08:43 PL Document 10/08/22 08:47 BM [id number] 10/08/22 08:51 BMF 09/24/22 10/08/22 08:39 08:47 WC - Today's Visit Information Type of service Follow-up Visit Follow-up Visit (Physician/MANAGER CORPORATE STRATEGY (Physician/MANAGER CORPORATE STRATEGY ) ) Arrival Mode Ambulatory Ambulatory Transfer Assistance None None Patient Identification Verified (Name & Yes Yes ) Patient Requires Transmission-Based No No Precautions Safety Precautions NA Vital Signs Temperature (97.8 F-99.1 F) 98.5 F 96.6 F L Temperature Source Temporal Temporal Pulse Rate (60-100) 80 71 Pulse Location Monitor Respiratory Rate (12-18) 18 18 Respiratory rate source Observation Oxygen Delivery Method Room Air Blood Pressure (90/60-120/80) 216/72 H 154/56 H Blood Pressure Mean (mm Hg) 120 88 Source Monitor Position Supine Blood Pressure Location Right Arm Comment pt in [facility] fro 4 days after last visit here History Since Last Visit- (Skip if this is Patient's initial visit) Have you changed medications since your No Yes last visit? Any new allergies or adverse reactions No No Had a fall/change in ADL's that may No No increase risk of falls Signs or symptoms of abuse and/or No No neglect since last visit Have you been in the hospital since your No Yes last visit? Has dressing in place as prescribed Yes Yes Has compression in place as prescribed N/A N/A Has offloadiing in place as prescribed N/A N/A Experienced any changes in pain level or No No management Left Footwear Regular Shoe Right Footwear Regular Shoe Pain Scale: 0-10 Numeric Is Patient Pain Free? Yes Yes - Nurse 1 - General Ulcer Measurement Start: 09/24/22 08:39 Freq: Status: Active Protocol: Activity Type Activity Date Activity User E-sign Co-sign Detail Recorded Client Recorded Date Recorded By Document 10/08/22 08:47 [facility] [id number] 10/08/22 08:51 [facility] 10/08/22 08:47 Wound Center Nurse 1 #5scrotum/R Groin Cluster -Combined with other wound No -Current Size (cm) - Length 1 -Current Size (cm) - Width 0.2 -Current Size (cm) - Depth 0.3 -Total Square Cm 0.2 -Photo Taken No -Epithelialization None Present -Tunneling No -Undermining/Tunneling No -Circular Undermining No -Exudate Amt Small -Exudate Type Serosanguineous -Wound Margin Distinct, Outline Attached -Granulation Amt Large (67-100%) -Granulation Quality [place] -Slough/Fibrin No -Necrosis Amt None Present (0 %) -Texture ([place]-wound Skin Appearance) Assessed, Scarring -Moisture ([place]-wound Skin Appearance) Assessed -Color ([place]-wound Skin Appearance) Assessed -Temperature ([place]-wound Skin No Abnormality Appearance) (Pt Warm) -Tenderness on Palpation ([place]-wound No Skin Appearance) -Ulcer Cleansing Rinsed/ Irrigated with Saline -Foul Odor after Cleansing No -Anesthetic Used 5% Lidocaine Gel WC - Nurse 2 - General Ulcer CM Notes Start: 09/24/22 08:39 Freq: Status: Active Protocol: Activity Type Activity Date Activity User E-sign Co-sign Detail Recorded Client Recorded Date Recorded By Document 09/24/22 09:03 [id number] 09/24/22 09:05 Document 10/08/22 09:10 [id number] 10/08/22 09:11 09/24/22 10/08/22 09:03 09:10 Wound Center Nurse 2 #5scrotum/R Groin Cluster -Time 09:04 09:10 -Correct Patient Yes Yes -Correct Side, Site, Position Yes Yes -Correct Procedure Yes Yes -Procedure Performed Yes Yes -Type of Procedure Debridement Debridement -Clinical Debridement Subcutaneous Subcutaneous -Tissue Removed Subcutaneous Subcutaneous -Post Debridement (cm) - Length 1.6 1.2 -Post Debridement (cm) - Width 0.5 0.4 -Post Debridement (cm) - Depth 0.2 0.2 -Total Square (Post) (cm) 0.80 0.48 -Area of Debridement (cm) - Length 1.6 1.2 -Area of Debridement (cm) - Width 0.5 0.4 -Total Square (Area) (cm) 0.80 0.48 -Tunneling No No -Undermining/Tunneling No No -Circular Undermining No No -Wound/Ulcer Outcome Not Healed Not Healed -Ulcer Cleansing Rinsed/ Rinsed/ Irrigated with Irrigated with Saline Saline -Foul Odor after Cleansing No No -Bioengineered Tissue No No -Bleeding Controlled with Pressure Pressure -Treatment Response Procedure Procedure Tolerated Well Tolerated Well -Offloading No No -Debridement - Subq, 1st 20sq cm Yes Yes Pain Scale: 0-10 Numeric Is Patient Pain Free? Yes Yes - Nurse 3 - General Ulcer D/C NN Start: 09/24/22 08:39 Freq: Status: Active Protocol: Activity Type Activity Date Activity User E-sign Co-sign Detail Recorded Client Recorded Date Recorded By Document 09/24/22 09:15 PL [id number] 09/24/22 09:16 PL Document 10/08/22 09:24 PL [id number] 10/08/22 09:25 PL 09/24/22 10/08/22 09:15 09:24 Wound Care Center Nurse 3 #5scrotum/R Groin Cluster -Ulcer Cleansing Rinsed/ Rinsed/ Irrigated with Irrigated with Saline Saline -Foul Odor after Cleansing No No -Primary Dressing Applied Aquacel AG 4x4 Aquacel AG 2x2 -Other Dressing ABD ABD,[place] -Primary Dressing Covered/Secured with Secured with Tape -Aquacel AG 2x2 1 -Aquacel AG 4x4 1 Pain Scale: 0-10 Numeric Is Patient Pain Free? Yes Yes - Visit Discharge Discharge Condition Stable Ambulatory Status Ambulatory Transportation Private Auto Assessment/Plan Assessment/Plan (1) Ulcer of right groin with fat layer exposed: CODE(S): L98.492 - Non-pressure chronic ulcer of skin of other sites with fat layer exposed (2) Ulcer of perineum with fat layer exposed: CODE(S): L98.492 - Non-pressure chronic ulcer of skin of other sites with fat layer exposed (3) Suppurative hidradenitis: CODE(S): L73.2 - Hidradenitis suppurativa (4) Smoker: CODE(S): F17.200 - Nicotine dependence, unspecified, uncomplicated (5) Hypertension: CODE(S): I10 - Essential (primary) hypertension QUALIFIERS: Hypertension type: primary hypertension Qualified Code(s): I10 - Essential (primary) hypertension (6) Diabetes type 2, uncontrolled: CODE(S): E11.65 - Type 2 diabetes mellitus with hyperglycemia QUALIFIERS: Glycemic state: with hyperglycemia Qualified Code(s): E11.65 - Type 2 diabetes mellitus with hyperglycemia (7) Hemoglobin A1c greater than 8.0 percent: CODE(S): R73.09 - Other abnormal glucose PLAN: Plan Patient was evaluated at the wound healing center. Wound care - Right groin ulcer moistened Aquacel-Ag covered by gauze/ABD daily and prn to right groin.They are not packing into the tunnel at this time. Operative wound cultures from 11/23/21 positive for Streptococcus constellatus and Corynebacterium striatum. He completed Cefdinir. Creatinine repeat on 11/27/21, which was down to 1.62 from 1.73 on 11/25/21. Also, repeat K+ 4.0. Patient is on his Plavix. Left ischial ulcer wound culture obtained 02/14/21 which was positive for Corynebacterium striatum which is not typically treated with antibiotics. Encouraged increase protein intake and increase Vitamin C intake. Will need supplemental protein to help heal this wound. Encouraged patient to stop smoking as it may have deleterious effects on wound healing. Patient sees dermatology who is managing the medical portion of his hidradenitis. He is going to be scheduled to have debridement of the hidradenitis on his left ischial area in the fall after he completes getting wood cut for winter. He is scheduled for operative debridement 12/05/22. Follow up 3 weeks. Call or come in sooner if develop any questions or concerns.
== END 2022-10-11 23:59 | disposition home or self-care (01) ==
LOC: WC 08:45
PROVIDERS: PCP Nurse Practitioner; Referring Provider Nurse Practitioner Family; Visit Provider Nurse Practitioner Family
DX: L73.2 Hidradenitis suppurativa (principal); E11.622 Type 2 diabetes mellitus with other skin ulcer; L98.492 Non-pressure chronic ulcer of skin of other sites with fat layer exposed; N50.89 Other specified disorders of the male genital organs; I10 Essential (primary) hypertension; I25.10 Atherosclerotic heart disease of native coronary artery without angina pectoris; F17.200 Nicotine dependence, unspecified, uncomplicated
CPT/HCPCS: 11042

== ENCOUNTER → 2022-10-09 | Outpatient (CLI) | payer BC, MEDICARE, SELFPAY ==
[2022-10-09 21:03] LABS: Absolute Lymphocyte Count 3.03 X10^3/uL (0.83-4.51); Absolute Neutrophil Count 6.8 X10^3/uL (2.0-7.7); Basophil# 0.02 X10^3/uL; Basophil% 0.2 % (0-1); Eosinophil# 0.12 X10^3/uL; Eosinophils% 1.1 % (0-5); Hematocrit 31.3 % (40-54); Hemoglobin 9.5 g/dL (13.0-16.5); Lymphocyte # 3.03 X10^3/ul (0.83-4.51); Lymphocyte % 27.7 % (19-41); Mean Corp Hgb Conc 30.4 g/dL (32-36); Mean Corpuscular Hgb 27.6 pg (27.0-32.0); Mean Platelet Vol. 10.6 fl (6.2-12.0); Monocyte# 0.83 X10^3/uL; Monocyte% 7.6 % (0-10); NRBC Flagged by Analyzer 0 % (0-5); Neutrophil # 6.81 X10^3/uL (2.7-7.7); Neutrophil % 62.4 % (47-70); Platelet Count 273 K/mm3 (150-450); RBC Distribution Width CV 15.7 % (11.6-14.6); RBC Distribution Width SD 51.2 fl (35.1-43.9); Red Blood Count 3.44 M/mm3 (4.6-6.2); White Blood Count 10.9 K/mm3 (4.4-11.0)
[2022-10-09 21:15] LABS: ALB/GLOB Ratio 0.7 RATIO (0.9-2.4); AST(SGOT) 6 U/L (15-37); Alanine Aminotransfer ALT/SGPT 19 U/L (16-61); Albumin, Serum 2.5 g/dL (3.2-5.0); Alkaline Phosphatase 94 U/L (45-117); Anion Gap 7 (5-15); BUN 37 mg/dL (7-18); BUN/Creat Ratio 15.5 RATIO (10-20); Calcium,Total 8.1 mg/dL (8.5-10.1); Chloride 111 mmol/L (98-107); Creatinine, Serum 2.38 mg/dL (0.70-1.30); EST Glomerular Filtration Rate 30 mL/min (>60); Est Glom Filt Rate - Afr Amer 36 mL/min (>60); Globulin 3.6 g/dL (2.2-4.2); Glucose 353 mg/dL (74-106); Potassium 4.4 mmol/L (3.5-5.1); Protein, Total 6.1 g/dL (6.4-8.2); Sodium Level 139 mmol/L (136-145)
[2022-10-09 21:25] LABS: Hemoglobin A1c 8.3 % (3.8-5.6)
== END | disposition home or self-care (01) ==
PROVIDERS: PCP Nurse Practitioner; Visit Provider Nurse Practitioner
DX: R63.5 Abnormal weight gain (principal); E11.65 Type 2 diabetes mellitus with hyperglycemia; R60.9 Edema, unspecified; D64.9 Anemia, unspecified
CPT/HCPCS: 80053; 83036; 85025

== ENCOUNTER → 2022-10-26 | Outpatient (CLI) | payer BC, MEDICARE, SELFPAY ==
[2022-10-26 22:10] LABS: Absolute Lymphocyte Count 2.25 X10^3/uL (0.83-4.51); Absolute Neutrophil Count 6.2 X10^3/uL (2.0-7.7); Basophil# 0.09 X10^3/uL; Eosinophils% 2.2 % (0-5); Hematocrit 31.3 % (40-54); Hemoglobin 9.8 g/dL (13.0-16.5); Lymphocyte # 2.25 X10^3/ul (0.83-4.51); Lymphocyte % 24.3 % (19-41); Mean Corp Hgb Conc 31.3 g/dL (32-36); Mean Corpuscular Hgb 27.6 pg (27.0-32.0); Mean Corpuscular Volume 88.2 fL (80-94); Mean Platelet Vol. 9.7 fl (6.2-12.0); Monocyte# 0.49 X10^3/uL; Monocyte% 5.3 % (0-10); NRBC Flagged by Analyzer 0 % (0-5); Neutrophil # 6.21 X10^3/uL (2.7-7.7); Neutrophil % 66.9 % (47-70); Platelet Count 333 K/mm3 (150-450); RBC Distribution Width CV 13.8 % (11.6-14.6); RBC Distribution Width SD 44.8 fl (35.1-43.9); Red Blood Count 3.55 M/mm3 (4.6-6.2); White Blood Count 9.3 K/mm3 (4.4-11.0)
[2022-10-26 22:25] LABS: ALB/GLOB Ratio 0.6 RATIO (0.9-2.4); AST(SGOT) 9 U/L (15-37); Alanine Aminotransfer ALT/SGPT 14 U/L (16-61); Albumin, Serum 2.2 g/dL (3.2-5.0); Alkaline Phosphatase 138 U/L (45-117); Anion Gap 6 (5-15); BUN 13 mg/dL (7-18); BUN/Creat Ratio 5.3 RATIO (10-20); Calcium,Total 8.1 mg/dL (8.5-10.1); Chloride 107 mmol/L (98-107); Creatinine, Serum 2.47 mg/dL (0.70-1.30); EST Glomerular Filtration Rate 29 mL/min (>60); Est Glom Filt Rate - Afr Amer 35 mL/min (>60); Glucose 356 mg/dL (74-106); Potassium 4.1 mmol/L (3.5-5.1); Protein, Total 6.2 g/dL (6.4-8.2); Sodium Level 136 mmol/L (136-145)
== END | disposition home or self-care (01) ==
PROVIDERS: PCP Nurse Practitioner; Visit Provider Nurse Practitioner
DX: D50.9 Iron deficiency anemia, unspecified (principal); N17.9 Acute kidney failure, unspecified; E11.65 Type 2 diabetes mellitus with hyperglycemia
CPT/HCPCS: 80053; 85025

== ENCOUNTER → 2022-11-09 | Outpatient (CLI) | payer BC, MEDICARE, SELFPAY ==
[2022-11-09 12:41] LABS: Anion Gap 4 (5-15); BUN 11 mg/dL (7-18); BUN/Creat Ratio 4.4 RATIO (10-20); Calcium,Total 8.6 mg/dL (8.5-10.1); Chloride 108 mmol/L (98-107); Creatinine, Serum 2.51 mg/dL (0.70-1.30); EST Glomerular Filtration Rate 28 mL/min (>60); Est Glom Filt Rate - Afr Amer 34 mL/min (>60); Glucose 168 mg/dL (74-106); Potassium 4.2 mmol/L (3.5-5.1); Sodium Level 138 mmol/L (136-145)
[2022-11-09 12:53] LABS: Protein, Urine (Random) 1290.1 mg/dL (<11.9); Protein:Creat Ratio 5561 mg/g CRE (0-200)
== END | disposition home or self-care (01) ==
LOC: LAB 11:19
PROVIDERS: PCP Nurse Practitioner; Referring Provider Internal Medicine Nephrology; Visit Provider Internal Medicine Nephrology
DX: N18.4 Chronic kidney disease, stage 4 (severe) (principal)
CPT/HCPCS: 36415; 80048; 82570; 84156

== ENCOUNTER 2022-12-10 08:30 | Outpatient (RCR) | payer BC, MEDICARE, SELFPAY ==
[2022-10-12 00:36] VITALS: BP 154/56; PULSE 71; RESP 18; TEMP 35.9
[2022-11-12 08:39] VITALS: BP 199/71; PULSE 91; RESP 16; TEMP 36.3
--- NOTE | 2022-11-12 09:21 | PN.PCM_ITS ---
History of Present Illness Date of Service: 11/12/22 Chief Complaint: Nonhealing hidradenitis ulcer right inguinal, scrotal and perineal area History of Wound: 56 year old male who is known to me. He has a history significant for hidradenitis, DM type II, HTN, CAD, arterial insufficiency, and smoker. He had surgery on 11/23/21 for 1. Surgical preparation right inguinal area with excision suppurative hidradenitis abscess (112 cm2, and 192 cm2 total). 2. Surgical preparation right scrotum with incision and drainage and excision suppurative hidradenitis abscess (50 cm2, and 192 cm2 total). 3. Surgical preparation right perineal area with excision suppurative hidradenitis abscess (30 cm2, and 192 cm2 total). Operative wound cultures from 11/23/21 positive for Streptococcus constellatus and Corynebacterium striatum. He was placed on Cefdinir and has finished them. [facility] Today he denies fevers, chills, nausea and vomiting. He states that he has a good appetite. He's been having intermittent flare-ups in his right perineal and perianal areas with induration extending onto his posterior thigh. He says he is ready for more surgery, probably in the Fall. Progress of Wound: Right groin wound is stable. Wound bed is pink. He is getting drainage from the tunneled area. Objective Data Objective Data Vital Signs: Vital Signs Temp Pulse Resp BP O2 Del Method 97.3 F L 91 16 199/71 H Room Air 11/12/22 08:39 11/12/22 08:39 11/12/22 08:39 11/12/22 08:39 11/12/22 08:39 Oxygen Delivery Method Room Air Charges/Coding Procedures Integumentary 111xxx-113xx: 08346 Ayla subq tissue 20 sq cm/< Debridement Note Debridement Note Wound debrided: groin, scrotum, perineal area Laterality: Right Wound Grade/Stage: Stage IV Type of Debridement: Excisional debridement Anesthesia Used: 5% Lidocaine Gel Depth: Down to and including healthy tissue and in the subcutaneous layer Percentage of wound debrided: 100 Instrument Used: 3mm curette Tissue Removed: Devitalized tissue and biofilm Severity: Fat Layer Exposed Amount of bleeding with debridement: Mild Bleeding Controlled with: Pressure and Compression and gauze Patient tolerated procedure: Patient tolerated procedure well Post-Debridement Measurements and Additional Note: Post-Debridement Measurements/Treatment - Nurse 1 - General Ulcer Assessment Start: 11/12/22 08:38 Freq: Status: Active Protocol: ROC Activity Type Activity Date Activity User E-sign Co-sign Detail Recorded Client Recorded Date Recorded By Document 11/12/22 08:39 [facility] Desktop 11/12/22 08:43 [facility] 11/12/22 08:39 WC - Today's Visit Information Type of service Follow-up Visit (Physician/[employer] [employer] ) Arrival Mode Ambulatory Transfer Assistance None Patient Identification Verified (Name & Yes ) Patient Requires Transmission-Based No Precautions Vital Signs Temperature (97.8 F-99.1 F) 97.3 F L Temperature Source Temporal Pulse Rate (60-100) 91 Pulse Location Monitor Respiratory Rate (12-18) 16 Respiratory rate source Observation Oxygen Delivery Method Room Air Blood Pressure (90/60-120/80) 199/71 H Blood Pressure Mean (mm Hg) 113 Source Monitor Position Sitting Blood Pressure Location Right Arm History Since Last Visit- (Skip if this is Patient's initial visit) Have you changed medications since your No last visit? Any new allergies or adverse reactions No Had a fall/change in ADL's that may No increase risk of falls Signs or symptoms of abuse and/or No neglect since last visit Have you been in the hospital since your No last visit? Has dressing in place as prescribed No Has compression in place as prescribed N/A Has offloadiing in place as prescribed N/A Experienced any changes in pain level or No management Left Footwear Regular Shoe Right Footwear Regular Shoe Pain Scale: 0-10 Numeric Is Patient Pain Free? Yes - Nurse 1 - General Ulcer Measurement Start: 11/12/22 08:38 Freq: Status: Active Protocol: Activity Type Activity Date Activity User E-sign Co-sign Detail Recorded Client Recorded Date Recorded By Document 11/12/22 08:39 [facility] [employer] 11/12/22 08:43 [facility] 11/12/22 08:39 Wound Center Nurse 1 #5scrotum/R Groin Cluster -Combined with other wound No -Current Size (cm) - Length 1 -Current Size (cm) - Width 0.3 -Current Size (cm) - Depth 0.2 -Total Square Cm 0.3 -Photo Taken No -Epithelialization None Present -Tunneling No -Undermining/Tunneling No -Circular Undermining No -Exudate Amt Medium -Exudate Type Serosanguineous -Wound Margin Thickened -Granulation Amt Medium (34-66%) -Granulation Quality Pale,Red -Slough/Fibrin Yes -Necrosis Amt Medium (34-66%) -Necrotic Tissue Type Adherent Slough -Texture (Abimbola-wound Skin Appearance) Assessed, Scarring -Moisture (Abimbola-wound Skin Appearance) Assessed -Color (Abimbola-wound Skin Appearance) Assessed -Temperature (Abimbola-wound Skin No Abnormality Appearance) (Pt Warm) -Tenderness on Palpation (Abimbola-wound No Skin Appearance) -Ulcer Cleansing Soap and Water -Foul Odor after Cleansing No -Anesthetic Used 4% Lidocaine Solution WC - Nurse 2 - General Ulcer CM Notes Start: 11/12/22 08:38 Freq: Status: Active Protocol: Activity Type Activity Date Activity User E-sign Co-sign Detail Recorded Client Recorded Date Recorded By Document 11/12/22 08:54 Laptop 11/12/22 08:54 11/12/22 08:54 Wound Center Nurse 2 -Time 08:54 -Correct Patient Yes -Correct Side, Site, Position Yes -Correct Procedure Yes -Procedure Performed Yes -Type of Procedure Debridement -Clinical Debridement Subcutaneous -Tissue Removed Subcutaneous -Post Debridement (cm) - Length 1.3 -Post Debridement (cm) - Width 0.4 -Post Debridement (cm) - Depth 0.1 -Total Square (Post) (cm) 0.52 -Area of Debridement (cm) - Length 1.3 -Area of Debridement (cm) - Width 0.4 -Total Square (Area) (cm) 0.52 -Tunneling No -Undermining/Tunneling No -Circular Undermining No -Wound/Ulcer Outcome Not Healed -Ulcer Cleansing Rinsed/ Irrigated with Saline -Foul Odor after Cleansing No -Bioengineered Tissue No -Bleeding Controlled with Pressure -Treatment Response Procedure Tolerated Well -Offloading No -Debridement - Subq, 1st 20sq cm Yes Pain Scale: 0-10 Numeric Is Patient Pain Free? Yes BEKA - Nurse 3 - General Ulcer D/C NN Start: 11/12/22 08:38 Freq: Status: Active Protocol: Activity Type Activity Date Activity User E-sign Co-sign Detail Recorded Client Recorded Date Recorded By Document 11/12/22 08:59 PL Tablet 11/12/22 09:00 PL 11/12/22 08:59 Wound Care Center Nurse 3 #5scrotum/R Groin Cluster -Ulcer Cleansing Rinsed/ Irrigated with Saline -Foul Odor after Cleansing No -Primary Dressing Applied Aquacel AG 2x2 -Other Dressing ABD Coban -Aquacel AG 2x2 1 Pain Scale: 0-10 Numeric Is Patient Pain Free? Yes WC - Visit Discharge Discharge Condition Stable Ambulatory Status Ambulatory Transportation Private Auto Assessment/Plan Assessment/Plan (1) Ulcer of right groin with fat layer exposed: CODE(S): L98.492 - Non-pressure chronic ulcer of skin of other sites with fat layer exposed (2) Ulcer of perineum with fat layer exposed: CODE(S): L98.492 - Non-pressure chronic ulcer of skin of other sites with fat layer exposed (3) Suppurative hidradenitis: CODE(S): L73.2 - Hidradenitis suppurativa (4) Smoker: CODE(S): F17.200 - Nicotine dependence, unspecified, uncomplicated (5) Hypertension: CODE(S): I10 - Essential (primary) hypertension QUALIFIERS: Hypertension type: primary hypertension Qualified Code(s): I10 - Essential (primary) hypertension (6) Diabetes type 2, uncontrolled: CODE(S): E11.65 - Type 2 diabetes mellitus with hyperglycemia QUALIFIERS: Glycemic state: with hyperglycemia Qualified Code(s): E11.65 - Type 2 diabetes mellitus with hyperglycemia (7) Hemoglobin A1c greater than 8.0 percent: CODE(S): R73.09 - Other abnormal glucose PLAN: Plan Patient was evaluated at the wound healing center. Wound care - Right groin ulcer moistened Aquacel-Ag covered by gauze/ABD daily and prn to right groin.They are not packing into the tunnel at this time. Operative wound cultures from 11/23/21 positive for Streptococcus constellatus and Corynebacterium striatum. He completed Cefdinir. Creatinine repeat on 11/27/21, which was down to 1.62 from 1.73 on 11/25/21. Also, repeat K+ 4.0. Patient is on his Plavix. Left ischial ulcer wound culture obtained 02/14/21 which was positive for C orynebacterium striatum which is not typically treated with antibiotics. Encouraged increase protein intake and increase Vitamin C intake. Will need supplemental protein to help heal this wound. Encouraged patient to stop smoking as it may have deleterious effects on wound healing. Patient sees dermatology who is managing the medical portion of his hidradenitis. He is going to be scheduled to have debridement of the hidradenitis on his left ischial area and the tunnel on the right on 12/05/22. Follow up after surgery. Call or come in sooner if develop any questions or concerns.
[2022-12-10 08:32] VITALS: BP 220/80; PULSE 77; RESP 16; TEMP 36.2
[2022-12-10 09:10] VITALS: BP 213/73; PULSE 77
--- NOTE | 2022-12-10 11:36 | PCM.WC.PN ---
History of Present Illness Date of Service: 12/10/22 Chief Complaint: Nonhealing hidradenitis ulcer right inguinal, scrotal and perineal area History of Wound: 56 year old male who is known to me. He has a history significant for hidradenitis, DM type II, HTN, CAD, arterial insufficiency, and smoker. He had surgery on 11/23/21 for 1. Surgical preparation right inguinal area with excision suppurative hidradenitis abscess (112 cm2, and 192 cm2 total). 2. Surgical preparation right scrotum with incision and drainage and excision suppurative hidradenitis abscess (50 cm2, and 192 cm2 total). 3. Surgical preparation right perineal area with excision suppurative hidradenitis abscess (30 cm2, and 192 cm2 total). Operative wound cultures from 11/23/21 positive for Streptococcus constellatus and Corynebacterium striatum. He was placed on Cefdinir and has finished them. [facility] Today he denies fevers, chills, nausea and vomiting. He states that he has a good appetite. He's been having intermittent flare-ups in his right perineal and perianal areas with induration extending onto his posterior thigh. He says he is ready for more surgery, probably in the Fall. Progress of Wound: Right groin wound is larger. Wound bed is pink. He has not been wearing any dressings to absorb the drainage. Objective Data Objective Data Vital Signs: Vital Signs Temp Pulse Resp BP O2 Del Method 97.1 F L 77 16 213/73 H Room Air 12/10/22 08:32 12/10/22 09:10 12/10/22 08:32 12/10/22 09:10 12/10/22 08:32 Oxygen Delivery Method Room Air Charges/Coding Procedures Integumentary 111xxx-113xx: [id number] Ayla subq tissue 20 sq cm/< Debridement Note Debridement Note Wound debrided: groin, scrotum, perineal area Laterality: Right Wound Grade/Stage: Stage IV Type of Debridement: Excisional debridement Anesthesia Used: 5% Lidocaine Gel Depth: Down to and including healthy tissue and in the subcutaneous layer Percentage of wound debrided: 100 Instrument Used: 3mm curette Tissue Removed: Devitalized tissue and biofilm Severity: Fat Layer Exposed Amount of bleeding with debridement: Mild Bleeding Controlled with: Pressure and Compression and gauze Patient tolerated procedure: Patient tolerated procedure well Debridement Free Text: Right groin ulcer debrided, did not debride the tunnel area distal to the the right groin ulcer. Post-Debridement Measurements and Additional Note: Post-Debridement Measurements/Treatment WC - Nurse 1 - General Ulcer Assessment Start: 11/12/22 08:38 Freq: Status: Active Protocol: BEKA.LOWARVINDT Activity Type Activity Date Activity User E-sign Co-sign Detail Recorded Client Recorded Date Recorded By Document 11/12/22 08:39 [facility] Desktop 11/12/22 08:43 BMF Document 12/10/22 08:32 [employer] 12/10/22 08:38 BMF 11/12/22 12/10/22 08:39 08:32 WC - Today's Visit Information Type of service Follow-up Visit Follow-up Visit (Physician/[employer] (Physician/[employer]OR [employer]ELD [employer] ) ) Arrival Mode Ambulatory Ambulatory Transfer Assistance None None Accompanied by Patient Identification Verified (Name & Yes Yes ) Patient Requires Transmission-Based No No Precautions Vital Signs Temperature (97.8 F-99.1 F) 97.3 F L 97.1 F L Temperature Source Temporal Temporal Pulse Rate (60-100) 91 77 Pulse Location Monitor Monitor Respiratory Rate (12-18) 16 16 Respiratory rate source Observation Observation Oxygen Delivery Method Room Air Room Air Blood Pressure (90/60-120/80) 199/71 H 220/80 H Blood Pressure Mean (mm Hg) 113 126 Source Monitor Monitor Position Sitting Sitting Blood Pressure Location Right Arm Right Arm Comment didn't take am meds. will rechk prior to leaving. 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 Any new allergies or adverse reactions No No Had a fall/change in ADL's that may No No increase risk of falls Signs or symptoms of abuse and/or No No neglect since last visit Have you been in the hospital since your No No last visit? Has dressing in place as prescribed No No Has compression in place as prescribed N/A N/A Has offloadiing in place as prescribed N/A N/A Experienced any changes in pain level or No No management Left Footwear Regular Shoe Regular Shoe Right Footwear Regular Shoe Regular Shoe Other Footwear no dressing to wound Pain Scale: 0-10 Numeric Is Patient Pain Free? Yes Yes WC - Nurse 1 - General Ulcer Measurement Start: 11/12/22 08:38 Freq: Status: Active Protocol: Activity Type Activity Date Activity User E-sign Co-sign Detail Recorded Client Recorded Date Recorded By Document 11/12/22 08:39 [facility] Desktop 11/12/22 08:43 BM Document 12/10/22 08:32 [facility] Desktop 12/10/22 08:38 [facility] 11/12/22 12/10/22 08:39 08:32 Wound Center Nurse 1 #5scrotum/R Groin Cluster -Combined with other wound No No -Current Size (cm) - Length 1 3.5 -Current Size (cm) - Width 0.3 1.4 -Current Size (cm) - Depth 0.2 0.3 -Total Square Cm 0.3 4.90 -Photo Taken No No -Epithelialization None Present None Present -Tunneling No No -Undermining/Tunneling No No -Circular Undermining No No -Exudate Amt Medium Medium -Exudate Type Serosanguineous Serosanguineous -Wound Margin Thickened Distinct, Outline Attached -Granulation Amt Medium (34-66%) Medium (34-66%) -Granulation Quality Pale,Red Red -Slough/Fibrin Yes -Necrosis Amt Medium (34-66%) -Necrotic Tissue Type Adherent Slough -Texture (Abimbola-wound Skin Appearance) Assessed, Assessed, Scarring Scarring -Moisture (Abimbola-wound Skin Appearance) Assessed Assessed -Color (Abimbola-wound Skin Appearance) Assessed Assessed, Erythema -Temperature (Abimbola-wound Skin No Abnormality No Abnormality Appearance) (Pt Warm) (Pt Warm) -Tenderness on Palpation (Abimbola-wound No No Skin Appearance) -Ulcer Cleansing Soap and Water Rinsed/ Irrigated with Saline -Foul Odor after Cleansing No No -Anesthetic Used 4% Lidocaine 5% Lidocaine Solution Gel WC - Nurse 2 - General Ulcer CM Notes Start: 11/12/22 08:38 Freq: Status: Active Protocol: Activity Type Activity Date Activity User E-sign Co-sign Detail Recorded Client Recorded Date Recorded By Document 11/12/22 08:54 Laptop 11/12/22 08:54 Document 12/10/22 09:06 [id number] 12/10/22 09:07 JF 11/12/22 12/10/22 08:54 09:06 Wound Center Nurse 2 #5scrotum/R Groin Cluster -Time 08:54 09:06 -Correct Patient Yes Yes -Correct Side, Site, Position Yes Yes -Correct Procedure Yes Yes -Procedure Performed Yes Yes -Type of Procedure Debridement Debridement -Clinical Debridement Subcutaneous Subcutaneous -Tissue Removed Subcutaneous Subcutaneous -Post Debridement (cm) - Length 1.3 3.0 -Post Debridement (cm) - Width 0.4 0.6 -Post Debridement (cm) - Depth 0.1 0.1 -Total Square (Post) (cm) 0.52 1.80 -Area of Debridement (cm) - Length 1.3 3.0 -Area of Debridement (cm) - Width 0.4 0.6 -Total Square (Area) (cm) 0.52 1.80 -Tunneling No No -Undermining/Tunneling No No -Circular Undermining No No -Wound/Ulcer Outcome Not Healed Not Healed -Ulcer Cleansing Rinsed/ Rinsed/ Irrigated with Irrigated with Saline Saline -Foul Odor after Cleansing No No -Bioengineered Tissue No No -Bleeding Controlled with Pressure Pressure -Treatment Response Procedure Procedure Tolerated Well Tolerated Well -Offloading No No -Debridement - Subq, 1st 20sq cm Yes Yes Pain Scale: 0-10 Numeric Is Patient Pain Free? Yes Yes WC - Nurse 3 - General Ulcer D/C NN Start: 11/12/22 08:38 Freq: Status: Active Protocol: Activity Type Activity Date Activity User E-sign Co-sign Detail Recorded Client Recorded Date Recorded By Document 11/12/22 08:59 PL Tablet 11/12/22 09:00 PL Document 12/10/22 09:10 [facility] Desktop 12/10/22 09:12 BM 11/12/22 12/10/22 08:59 09:10 Wound Care Center Nurse 3 #5scrotum/R Groin Cluster -Ulcer Cleansing Rinsed/ Rinsed/ Irrigated with Irrigated with Saline Saline -Foul Odor after Cleansing No No -Primary Dressing Applied Aquacel AG 2x2 Aquacel AG 4x4 -Other Dressing ABD Coban abd -Other Covering secured w/ coban -Aquacel AG 2x2 1 -Aquacel AG 4x4 1 Treatment Response Procedure Tolerated Well Vital Signs Pulse Rate (60-100) 77 Pulse Location Monitor Blood Pressure (90/60-120/80) 213/73 H Blood Pressure Mean (mm Hg) 119 Source Monitor Position Sitting Blood Pressure Location Right Arm Comment rechkk bp. 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 Yes Yes WC - Visit Discharge Discharge Condition Stable Stable Ambulatory Status Ambulatory Ambulatory Transportation Private Auto Private Auto Accompanied by Assessment/Plan Assessment/Plan (1) Ulcer of right groin with fat layer exposed: CODE(S): L98.492 - Non-pressure chronic ulcer of skin of other sites with fat layer exposed (2) Ulcer of perineum with fat layer exposed: CODE(S): L98.492 - Non-pressure chronic ulcer of skin of other sites with fat layer exposed (3) Suppurative hidradenitis: CODE(S): L73.2 - Hidradenitis suppurativa (4) Smoker: CODE(S): F17.200 - Nicotine dependence, unspecified, uncomplicated (5) Hypertension: CODE(S): I10 - Essential (primary) hypertension QUALIFIERS: Hypertension type: primary hypertension Qualified Code(s): I10 - Essential (primary) hypertension (6) Diabetes type 2, uncontrolled: CODE(S): E11.65 - Type 2 diabetes mellitus with hyperglycemia QUALIFIERS: Glycemic state: with hyperglycemia Qualified Code(s): E11.65 - Type 2 diabetes mellitus with hyperglycemia (7) Hemoglobin A1c greater than 8.0 percent: CODE(S): R73.09 - Other abnormal glucose PLAN: Plan Patient was evaluated at the wound healing center. Wound care - Right groin ulcer moistened Aquacel-Ag covered by gauze/ABD daily and prn to right groin.They are not packing into the tunnel at this time. Stressed importance of placing a dressing onto the ulcer to prevent the drainage from macerating the area. Operative wound cultures from 11/23/21 positive for Streptococcus constellatus and Corynebacterium striatum. He completed Cefdinir. Creatinine repeat on 11/27/21, which was down to 1.62 from 1.73 on 11/25/21. Also, repeat K+ 4.0. Patient is on his Plavix. Left ischial ulcer wound culture obtained 02/14/21 which was positive for Corynebacterium striatum which is not typically treated with antibiotics. Encouraged increase protein intake and increase Vitamin C intake. Will need supplemental protein to help heal this wound. Encouraged patient to stop smoking as it may have deleterious effects on wound healing. Patient sees dermatology who is managing the medical portion of his hidradenitis. He is going to be scheduled to have debridement of the hidradenitis on his left ischial area and the tunnel on the right on in December. He had to have a cardiac clearance before this surgery, he is scheduled for stress test and echo on Saturday. His BP is elevated today. It was 220/80, he has not taken his blood pressure medication today. It was recommended that he go to the ED for further evaluation. He declined that suggestion. I instructed him to take his medication and to notify his PCP. He states that his PCP already know about this issue. I voiced my concerns about him being a stroke risk and him having issues with his heart and that he needs to take getting his BP under better control more seriously. Follow up after surgery. Call or come in sooner if develop any questions or concerns.
== END 2022-12-11 23:59 | disposition home or self-care (01) ==
LOC: WC 08:30
PROVIDERS: PCP Nurse Practitioner; Referring Provider Nurse Practitioner Family; Visit Provider Nurse Practitioner Family
DX: L73.2 Hidradenitis suppurativa (principal); L98.492 Non-pressure chronic ulcer of skin of other sites with fat layer exposed; E11.22 Type 2 diabetes mellitus with diabetic chronic kidney disease; I25.10 Atherosclerotic heart disease of native coronary artery without angina pectoris; I10 Essential (primary) hypertension; N50.89 Other specified disorders of the male genital organs; F17.200 Nicotine dependence, unspecified, uncomplicated
CPT/HCPCS: 11042

== ENCOUNTER → 2022-12-14 | Outpatient (CLI) | payer BC, MEDICARE, SELFPAY ==
--- NOTE | 2022-12-14 06:36 | ECHOD_ITS ---
Reason For Study: ASHD/CAD Procedure This was a 2D Doppler, Color Flow transthoracic echocardiogram. Exam performed in department. Left Ventricle Normal LV size. The estimated ejection fraction is 65 %. Diastolic function is indeterminate. No regional wall motion abnormalities noted. Right Ventricle Normal RV size. Normal systolic function. Atria The left atrium is mildly enlarged. Normal right atrium. No doppler evidence for ASD. Mitral Valve There is no mitral valve stenosis. No mitral valve insufficiency. Tricuspid Valve There is no tricuspid stenosis. No tricuspid valve insufficiency. Aortic Valve Aortic sclerosis, no stenosis. Trisinus/trileaflet aortic valve. There is no aortic stenosis. No aortic valve insufficiency. Pulmonic Valve There is no pulmonic valvular stenosis. No pulmonic valve insufficiency. Great Vessels Normal aortic root. Pericardium/Pleural No pericardial effusion. MMode/2D Measurements & Calculations LVIDd: 4.5 cm IVSd: 1.4 cm Ao root diam: 3.3 cm LVIDs: 2.8 cm LVPWd: 1.6 cm FS: 38.2 % LAV(MOD-bp): 64.2 ml LVAd ap4: 29.1 cm2 SV(MOD-sp4): 59.9 ml LAV(MOD-bp) Indexed: 35.0 ml/m2 LVLd ap4: 8.6 cm LAV(MOD-sp2): 69.1 ml EDV(MOD-sp4): 80.1 ml LAV(MOD-sp4): 55.8 ml EDV(sp4-el): 83.7 ml LVAs ap4: 12.1 cm2 LVLs ap4: 7.0 cm ESV(MOD-sp4): 20.1 ml ESV(sp4-el): 17.7 ml EF(MOD-sp4): 74.9 % EF(sp4-el): 78.8 % SV(sp4-el): 66.0 ml LA A4 area: 18.8 cm2 LA dimension(2D): 3.5 cm RA A4 area: 13.6 cm2 TAPSE: 2.4 cm Time Measurements MV dec time: 0.23 sec Doppler Measurements & Calculations MV E max jarvis: 81.1 cm/sec Lat Peak E' Jarvis: 7.8 cm/sec Med Peak E' Jarvis: 5.1 cm/sec MV A max jarvis: 89.2 cm/sec E/E' lat: 10.4 E/E' med: 15.9 MV E/A: 0.91 MV V2 max: 110.7 cm/sec Ao V2 max: 143.6 cm/sec MV max P.9 mmHg MV dec slope: 352.0 cm/sec2 Ao max P.2 mmHg MV V2 mean: 73.4 cm/sec Ao V2 mean: 93.2 cm/sec MV mean P.3 mmHg Ao mean P.0 mmHg MV V2 VTI: 41.8 cm Ao V2 VTI: 36.4 cm AV (velocity ratio): 0.79 LV V1 max: 114.5 cm/sec PA V2 max: 122.3 cm/sec LV V1 max P.3 mmHg PA V2 mean: 84.1 cm/sec LV V1 mean P.4 mmHg LV V1 mean: 72.5 cm/sec LV V1 VTI: 28.6 cm ECHO/Echo Complete Interpretation Summary The estimated ejection fraction is 65 %. Diastolic function is indeterminate. The left atrium is mildly enlarged. Ordering Physician: Roderick Bonilla Referring Physician: Roderick Bonilla Performed By: Em Duke RCS
[2022-12-14 07:52] LABS: Cholesterol 206 mg/dL (200); High Density Lipoprotein 47 mg/dL; Triglycerides 95 mg/dL; Very Low Density Lipoprotein 19 mg/dL (5-40)
--- NOTE | 2022-12-18 15:39 | STRESSREP ---
Stress Test Report Date: 12/14/2022 Procedure: Pharmacologic stress nuclear imaging study Indications: Preoperative evaluation Consent: Per the patient Procedure: The patient underwent pharmacologic (Regadenoson) evaluation with a peak heart rate of 85 beats per minute (52%predicted maximal heart rate) and a peak blood pressure of 168/70 mmHg. The baseline ECG demonstrated normal sinus rhythm, nonspecific ST-T changes. EKG during lexiscan infusion revealed no significant ischemic changes. EKG post infusion revealed no significant ischemic changes [There were no cardiac dysrhythmias pretest, during pharmacologic infusion, or recovery]. [There was no complaint of chest discomfort during pharmacologic infusion or recovery]. The examination was discontinued secondary to completion of protocol. Impression: 1. Lexiscan stress test test is negative for Lexiscan infusion induced EKG changes of ischemia. 2. Lexiscan stress test test is negative for Lexiscan infusion induced chest pain. 3. Results of the nuclear portion of the test is as below Myocardial perfusion imaging study: Technique: The patient was injected with [] millicuries of technetium 99m Cardiolite and subsequently rest SPECT Cardiolite nuclear imaging was obtained in the horizontal long, vertical long, and short axis views. The patient underwent pharmacologic [Regadenoson 0.4mg] evaluation. Please see above for details. The patient was injected with [] millicuries of technetium 99m Cardiolite and subsequently stress SPECT Cardiolite nuclear imaging was obtained in the horizontal long, vertical long, and short axis views. A gated Cardiolite study at peak stress was obtained. Interpretation: Rest and stress SPECT Cardiolite nuclear imaging status post realignment, normalization, and attenuation correction demonstrate no definite evidence of significant ischemia or infarction. There is extracardiac uptake adjacent to the inferior wall that is more pronounced in the stress images. Gated images reveal no significant regional wall motion abnormalities. The reported LVEF is 63%. Impression: 1. There is no evidence of significant ischemia or infarction. 2. Estimated ejection fraction is 63%. This note was generated with [email or web address] software. It may contain incorrect words, spelling, and punctuation that were not noted in checking the note before signing.
== END | disposition home or self-care (01) ==
LOC: CVS 06:29
PROVIDERS: PCP Nurse Practitioner; Referring Provider Internal Medicine Cardiovascular Disease; Visit Provider Internal Medicine Cardiovascular Disease
DX: E46 Unspecified protein-calorie malnutrition (principal); I10 Essential (primary) hypertension; I25.10 Atherosclerotic heart disease of native coronary artery without angina pectoris
CPT/HCPCS: 36415; 78452; 80061; 93017; 93306; A9500; A4216; J2785

== ENCOUNTER → 2023-01-25 | Outpatient (CLI) | payer BC, MEDICARE, SELFPAY ==
[2023-01-25 20:26] LABS: Absolute Lymphocyte Count 2.54 X10^3/uL (0.83-4.51); Absolute Neutrophil Count 7.9 X10^3/uL (2.0-7.7); Basophil# 0.09 X10^3/uL; Basophil% 0.8 % (0-1); Eosinophil# 0.17 X10^3/uL; Eosinophils% 1.5 % (0-5); Hematocrit 28.9 % (40-54); Hemoglobin 8.8 g/dL (13.0-16.5); Lymphocyte # 2.54 X10^3/ul (0.83-4.51); Lymphocyte % 22.2 % (19-41); Mean Corp Hgb Conc 30.4 g/dL (32-36); Mean Corpuscular Hgb 25.6 pg (27.0-32.0); Mean Platelet Vol. 9.6 fl (6.2-12.0); Monocyte# 0.66 X10^3/uL; Monocyte% 5.8 % (0-10); NRBC Flagged by Analyzer 0 % (0-5); Neutrophil # 7.94 X10^3/uL (2.7-7.7); Neutrophil % 69.3 % (47-70); Platelet Count 348 K/mm3 (150-450); RBC Distribution Width CV 14.9 % (11.6-14.6); RBC Distribution Width SD 45.4 fl (35.1-43.9); Red Blood Count 3.44 M/mm3 (4.6-6.2); White Blood Count 11.5 K/mm3 (4.4-11.0)
[2023-01-25 20:58] LABS: ALB/GLOB Ratio 0.5 RATIO (0.9-2.4); AST(SGOT) 7 U/L (15-37); Alanine Aminotransfer ALT/SGPT 9 U/L (16-61); Albumin, Serum 2.8 g/dL (3.2-5.0); Alkaline Phosphatase 137 U/L (45-117); Anion Gap 6 (5-15); BUN 23 mg/dL (7-18); BUN/Creat Ratio 8.3 RATIO (10-20); Calcium,Total 8.4 mg/dL (8.5-10.1); Chloride 110 mmol/L (98-107); Cholesterol 200 mg/dL (200); Creatinine, Serum 2.76 mg/dL (0.70-1.30); EST Glomerular Filtration Rate 25 mL/min (>60); Est Glom Filt Rate - Afr Amer 30 mL/min (>60); Globulin 5.3 g/dL (2.2-4.2); Glucose 140 mg/dL (74-106); High Density Lipoprotein 38 mg/dL; Potassium 4.6 mmol/L (3.5-5.1); Protein, Total 8.1 g/dL (6.4-8.2); Sodium Level 141 mmol/L (136-145); Thyroid Stim Hormone (TSH) 2.16 uIU/mL (0.358-3.74); Triglycerides 213 mg/dL; Very Low Density Lipoprotein 43 mg/dL (5-40)
== END | disposition home or self-care (01) ==
PROVIDERS: PCP Nurse Practitioner; Referring Provider Nurse Practitioner; Visit Provider Nurse Practitioner
DX: E78.5 Hyperlipidemia, unspecified (principal); E11.22 Type 2 diabetes mellitus with diabetic chronic kidney disease; I1A.0 Resistant hypertension; E87.6 Hypokalemia; N18.9 Chronic kidney disease, unspecified
CPT/HCPCS: 80053; 80061; 84443; 85025; 86141

== ENCOUNTER 2023-01-28 09:15 | Outpatient (RCR) | payer MEDICARE, BC, SELFPAY ==
[2022-12-12 00:29] VITALS: BP 213/73; PULSE 77; RESP 16; TEMP 36.2
[2023-01-21 11:14] VITALS: BP 150/59; PULSE 69; RESP 20; TEMP 36
--- NOTE | 2023-01-21 12:13 | PCM.WC.PN ---
History of Present Illness Date of Service: 01/21/23 Chief Complaint: Nonhealing hidradenitis ulcer right inguinal, scrotal and perineal area History of Wound: 56 year old male who is known to me. He has a history significant for hidradenitis, DM type II, HTN, CAD, arterial insufficiency, and smoker. He had surgery on 11/23/21 for 1. Surgical preparation right inguinal area with excision suppurative hidradenitis abscess (112 cm2, and 192 cm2 total). 2. Surgical preparation right scrotum with incision and drainage and excision suppurative hidradenitis abscess (50 cm2, and 192 cm2 total). 3. Surgical preparation right perineal area with excision suppurative hidradenitis abscess (30 cm2, and 192 cm2 total). Operative wound cultures from 11/23/21 positive for Streptococcus constellatus and Corynebacterium striatum. He was placed on Cefdinir and has finished them. Wound care - [facility] . Today he denies fevers, chills, nausea and vomiting. He states that he has a good appetite. He's been having intermittent flare-ups in his right perineal and perianal areas with induration extending onto his posterior thigh. He says he is ready for more surgery, probably in the Fall. Progress of Wound: He recently drove to [place] to black pick[place] a truck in a 24 hour period where he ended up reopening his left ischial ulcer cluster. It is in the middle of his scar tissue. The base of the ulcer cluster is pink. It is superficial. Right groin ulcer is stable. Objective Data Objective Data Vital Signs: Vital Signs Temp Pulse Resp BP 96.8 F L 69 20 H 150/59 H 01/21/23 11:14 01/21/23 11:14 01/21/23 11:14 01/21/23 11:14 Charges/Coding Procedures Integumentary [id number]: [id number] Ayla subq tissue 20 sq cm/< Debridement Note Debridement Note Wound debrided: groin, scrotum, perineal area Laterality: Right Wound Grade/Stage: Stage IV Type of Debridement: Excisional debridement Anesthesia Used: 5% Lidocaine Gel Depth: Down to and including healthy tissue and in the subcutaneous layer Percentage of wound debrided: 100 Instrument Used: 5mm curette Tissue Removed: Devitalized tissue and biofilm Severity: Fat Layer Exposed Amount of bleeding with debridement: Mild Bleeding Controlled with: Pressure and Compression and gauze Patient tolerated procedure: Patient tolerated procedure well Debridement Free Text: Right groin ulcer debrided, did not debride the tunnel area distal to the the right groin ulcer. 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 Any new allergies or adverse reactions No Had a fall/change in ADL's that may No increase risk of falls Signs or symptoms of abuse and/or No neglect since last visit Have you been in the hospital since your No last visit? Has dressing in place as prescribed Yes Has compression in place as prescribed N/A Has offloadiing in place as prescribed Yes Experienced any changes in pain level or No management Pain Scale: 0-10 Numeric Is Patient Pain Free? Yes BEKA - Nurse 1 - General Ulcer Measurement Start: 01/21/23 11:13 Freq: Status: Active Protocol: Activity Type Activity Date Activity User E-sign Co-sign Detail Recorded Client Recorded Date Recorded By Document 01/21/23 11:14 DL [employer] 01/21/23 11:24 DL 01/21/23 11:14 Wound Center Nurse 1 #8 L Ischial Cluster -Current Size (cm) - Length 4 -Current Size (cm) - Width 4 -Current Size (cm) - Depth 0.3 -Total Square Cm 16 -Photo Taken Yes -Exudate Amt Small -Exudate Type Serosanguineous -Wound Margin Distinct, Outline Attached -Granulation Amt Large (67-100%) -Granulation Quality [place] -Necrosis Amt Small (1-33%) -Necrotic Tissue Type Adherent Slough -Structure Exposed N/A -Texture ([place]-wound Skin Appearance) Scarring -Moisture ([place]-wound Skin Appearance) No Abnormality -Color ([place]-wound Skin Appearance) No Abnormality -Temperature ([place]-wound Skin No Abnormality Appearance) (Pt Warm) -Tenderness on Palpation ([place]-wound Yes Skin Appearance) -Ulcer Cleansing Soap and Water -Foul Odor after Cleansing No -Anesthetic Used 5% Lidocaine Gel #5scrotum/R Groin Cluster -Current Size (cm) - Length 1.2 -Current Size (cm) - Width 0.7 -Current Size (cm) - Depth 0.2 -Total Square Cm 0.84 -Photo Taken Yes -Exudate Amt Small -Exudate Type Serosanguineous -Wound Margin Thickened & Rolled Under -Granulation Amt Large (67-100%) -Granulation Quality [place] -Necrosis Amt None Present (0 %) -Structure Exposed N/A -Texture ([place]-wound Skin Appearance) Scarring -Moisture ([place]-wound Skin Appearance) No Abnormality -Color ([place]-wound Skin Appearance) No Abnormality -Temperature ([place]-wound Skin No Abnormality Appearance) (Pt Warm) -Tenderness on Palpation ([place]-wound No Skin Appearance) -Ulcer Cleansing Soap and Water -Foul Odor after Cleansing No -Anesthetic Used 5% Lidocaine Gel WC - Nurse 2 - General Ulcer CM Notes Start: 01/21/23 11:13 Freq: Status: Active Protocol: Activity Type Activity Date Activity User E-sign Co-sign Detail Recorded Client Recorded Date Recorded By Document 01/21/23 11:35 Laptop 01/21/23 11:39 01/21/23 11:35 Wound Center Nurse 2 #8 L Ischial Cluster -Time 11:38 -Correct Patient Yes -Correct Side, Site, Position Yes -Correct Procedure Yes -Procedure Performed Yes -Type of Procedure Debridement -Clinical Debridement Subcutaneous -Tissue Removed Subcutaneous -Post Debridement (cm) - Length 3.3 -Post Debridement (cm) - Width 4.5 -Post Debridement (cm) - Depth 0.1 -Total Square (Post) (cm) 14.85 -Area of Debridement (cm) - Length 3.3 -Area of Debridement (cm) - Width 4.5 -Total Square (Area) (cm) 14.85 -Tunneling No -Undermining/Tunneling No -Circular Undermining No -Wound/Ulcer Outcome Not Healed -Ulcer Cleansing Rinsed/ Irrigated with Saline -Foul Odor after Cleansing No -Bioengineered Tissue No -Bleeding Controlled with Pressure -Treatment Response Procedure Tolerated Well -Offloading No -Debridement - Subq, 1st 20sq cm No #5scrotum/R Groin Cluster -Time 11:35 -Correct Patient Yes -Correct Side, Site, Position Yes -Correct Procedure Yes -Procedure Performed Yes -Type of Procedure Debridement -Clinical Debridement Subcutaneous -Tissue Removed Subcutaneous -Post Debridement (cm) - Length 2.0 -Post Debridement (cm) - Width 0.8 -Post Debridement (cm) - Depth 0.2 -Total Square (Post) (cm) 1.60 -Area of Debridement (cm) - Length 2.0 -Area of Debridement (cm) - Width 0.8 -Total Square (Area) (cm) 1.60 -Tunneling No -Undermining/Tunneling No -Circular Undermining No -Wound/Ulcer Outcome Not Healed -Ulcer Cleansing Rinsed/ Irrigated with Saline -Foul Odor after Cleansing No -Bioengineered Tissue No -Bleeding Controlled with Pressure -Treatment Response Procedure Tolerated Well -Offloading No -Debridement - Subq, 1st 20sq cm Yes Pain Scale: 0-10 Numeric Is Patient Pain Free? Yes WC - Nurse 3 - General Ulcer D/C NN Start: 01/21/23 11:13 Freq: Status: Active Protocol: Activity Type Activity Date Activity User E-sign Co-sign Detail Recorded Client Recorded Date Recorded By Document 01/21/23 11:46 DL Desktop 01/21/23 11:49 DL 01/21/23 11:46 Wound Care Center Nurse 3 #8 L Ischial Cluster -Ulcer Cleansing Rinsed/ Irrigated with Saline -Foul Odor after Cleansing No -Primary Dressing Applied Aquacel AG 4x4 -Primary Dressing Covered/Secured with Dry Gauze, Secured with Tape -Aquacel AG 4x4 1 #5scrotum/R Groin Cluster -Ulcer Cleansing Rinsed/ Irrigated with Saline -Foul Odor after Cleansing No -Other Dressing aquacel ag -Primary Dressing Covered/Secured with Dry Gauze, Secured with Tape Treatment Response Procedure Tolerated Well Pain Scale: 0-10 Numeric Is Patient Pain Free? Yes WC - Visit Discharge Discharge Condition Stable Ambulatory Status Ambulatory Transportation Private Auto Additional Wound Wound debrided: ischial ulcer cluster Laterality: Left Wound Grade/Stage: Stage II Type of Debridement: Excisional debridement Anesthesia Used: 5% Lidocaine Gel Depth: Down to and including healthy tissue and in the subcutaneous layer Percentage of wound debrided: 100 Instrument Used: 5mm curette Tissue Removed: Non viable tissue and slough Severity: Fat Layer Exposed Amount of bleeding with debridement: Mild Bleeding Controlled with: Pressure Patient tolerated procedure: Patient tolerated procedure well Assessment/Plan Assessment/Plan (1) Ulcer of right groin with fat layer exposed: CODE(S): L98.492 - Non-pressure chronic ulcer of skin of other sites with fat layer exposed (2) Ulcer of perineum with fat layer exposed: CODE(S): L98.492 - Non-pressure chronic ulcer of skin of other sites with fat layer exposed (3) Suppurative hidradenitis: CODE(S): L73.2 - Hidradenitis suppurativa (4) Smoker: CODE(S): F17.200 - Nicotine dependence, unspecified, uncomplicated (5) Hypertension: CODE(S): I10 - Essential (primary) hypertension QUALIFIERS: Hypertension type: primary hypertension Qualified Code(s): I10 - Essential (primary) hypertension (6) Diabetes type 2, uncontrolled: CODE(S): E11.65 - Type 2 diabetes mellitus with hyperglycemia QUALIFIERS: Glycemic state: with hyperglycemia Qualified Code(s): E11.65 - Type 2 diabetes mellitus with hyperglycemia (7) Hemoglobin A1c greater than 8.0 percent: CODE(S): R73.09 - Other abnormal glucose (8) Pressure ulcer of left ischium, stage 2: CODE(S): L89.322 - Pressure ulcer of left buttock, stage 2 PLAN: Plan Patient was evaluated at the wound healing center. Wound care - Right groin ulcer and left ischial ulcer place moistened Aquacel-Ag covered by gauze/ABD daily and prn. They are not packing into the tunnel at this time. Stressed importance of placing a dressing onto the ulcer to prevent the drainage from macerating the area. Operative wound cultures from 11/23/21 positive for Streptococcus constellatus and Corynebacterium striatum. He completed Cefdinir. Creatinine repeat on 11/27/21, which was down to 1.62 from 1.73 on 11/25/21. Also, repeat K+ 4.0. Patient is on his Plavix. Left ischial ulcer wound culture obtained 02/14/21 which was positive for Corynebacterium striatum which is not typically treated with antibiotics. Encouraged increase protein intake and increase Vitamin C intake. Will need supplemental protein to help heal this wound. Encouraged patient to stop smoking as it may have deleterious effects on wound healing. Patient sees dermatology who is managing the medical portion of his hidradenitis. He is going to be scheduled to have debridement of the hidradenitis on his left ischial area and the tunnel on the right on in December. He had to have a cardiac clearance before this surgery. The surgery is currently on hold. Follow up one week.
[2023-01-28 09:15] VITALS: BP 195/66; PULSE 68; RESP 16; TEMP 36.3
--- NOTE | 2023-01-28 11:51 | PN.PCM_ITS ---
History of Present Illness Date of Service: 01/28/23 Chief Complaint: Nonhealing hidradenitis ulcer right inguinal, scrotal and perineal area History of Wound: 56 year old male who is known to me. He has a history significant for hidradenitis, DM type II, HTN, CAD, arterial insufficiency, and smoker. He had surgery on 11/23/21 for 1. Surgical preparation right inguinal area with excision suppurative hidradenitis abscess (112 cm2, and 192 cm2 total). 2. Surgical preparation right scrotum with incision and drainage and excision suppurative hidradenitis abscess (50 cm2, and 192 cm2 total). 3. Surgical preparation right perineal area with excision suppurative hidradenitis abscess (30 cm2, and 192 cm2 total). Operative wound cultures from 11/23/21 positive for Streptococcus constellatus and Corynebacterium striatum. He was placed on Cefdinir and has finished them. Wound care - [facility] . Today he denies fevers, chills, nausea and vomiting. He states that he has a good appetite. He's been having intermittent flare-ups in his right perineal and perianal areas with induration extending onto his posterior thigh. He says he is ready for more surgery, probably in the Fall. 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 It is in the middle of his scar tissue. The base of the ulcer cluster is pink. It is superficial. Right groin ulcer is larger this week. His has recently been hospitalized, therefore, I'm unsure if he has been changing his dressings regularly. He sometimes goes with no dressing at all. Objective Data Objective Data Vital Signs: Vital Signs Temp Pulse Resp BP O2 Del Method 97.4 F L 68 16 195/66 H Room Air 01/28/23 09:15 01/28/23 09:15 01/28/23 09:15 01/28/23 09:15 01/28/23 09:15 Oxygen Delivery Method Room Air Charges/Coding Procedures Integumentary 111xxx-113xx: [id number] Ayla subq tissue 20 sq cm/< Debridement Note Debridement Note Wound debrided: groin, scrotum, perineal area Laterality: Right Wound Grade/Stage: Stage IV Type of Debridement: Excisional debridement Anesthesia Used: 5% Lidocaine Gel Depth: Down to and including healthy tissue and in the subcutaneous layer Percentage of wound debrided: 100 Instrument Used: 5mm curette Tissue Removed: Devitalized tissue and biofilm Severity: Fat Layer Exposed Amount of bleeding with debridement: Mild Bleeding Controlled with: Pressure and Compression and gauze Patient tolerated procedure: Patient tolerated procedure well Debridement Free Text: Right groin ulcer debrided, did not debride the tunnel area distal to the the right groin ulcer. Post-Debridement Measurements and Additional Note: Post-Debridement Measurements/Treatment - Nurse 1 - General Ulcer Assessment Start: 01/21/23 11:13 Freq: Status: Active Protocol: [facility] [employer] Activity Type Activity Date Activity User E-sign Co-sign Detail Recorded Client Recorded Date Recorded By Document 01/21/23 11:14 DL Desktop 01/21/23 11:24 DL Document 01/28/23 09:15 BMF Desktop 01/28/23 09:19 BMF 01/21/23 01/28/23 11:14 09:15 - Today's Visit Information Type of service Follow-up Visit Follow-up Visit (Physician/DIESEL DINKEY ENGINEER (Physician/DIESEL DINKEY ENGINEER ) ) Arrival Mode Ambulatory Ambulatory Transfer Assistance None None Patient Identification Verified (Name & Yes Yes ) Patient Requires Transmission-Based No No Precautions Finger Stick Blood Sugar(mg/dl) (if 691 indicated): Vital Signs Temperature (97.8 F-99.1 F) 96.8 F L 97.4 F L Temperature Source Temporal Temporal Pulse Rate (60-100) 69 68 Pulse Location Monitor Monitor Respiratory Rate (12-18) 20 H 16 Respiratory rate source Observation Observation Oxygen Delivery Method Room Air Blood Pressure (90/60-120/80) 150/59 H 195/66 H Blood Pressure Mean (mm Hg) 89 109 Source Monitor Monitor Position Supine Blood Pressure Location Right Arm History Since Last Visit- (Skip if this is Patient's initial visit) Have you changed medications since your No No last visit? Any new allergies or adverse reactions No No Had a fall/change in ADL's that may No No increase risk of falls Signs or symptoms of abuse and/or No No neglect since last visit Have you been in the hospital since your No No last visit? Has dressing in place as prescribed Yes No Has compression in place as prescribed N/A N/A Has offloadiing in place as prescribed Yes N/A Experienced any changes in pain level or No No management Left Footwear Regular Shoe Right Footwear Regular Shoe Pain Scale: 0-10 Numeric Is Patient Pain Free? Yes Yes WC - Nurse 1 - General Ulcer Measurement Start: 01/21/23 11:13 Freq: Status: Active Protocol: Activity Type Activity Date Activity User E-sign Co-sign Detail Recorded Client Recorded Date Recorded By Document 01/21/23 11:14 DL Desktop 01/21/23 11:24 DL Document 01/28/23 09:15 BMF Desktop 01/28/23 09:19 BMF 01/21/23 01/28/23 11:14 09:15 Wound Center Nurse 1 #8 L Ischial Cluster -Combined with other wound No -Current Size (cm) - Length 4 3.6 -Current Size (cm) - Width 4 3.5 -Current Size (cm) - Depth 0.3 0.1 -Total Square Cm 16 12.60 -Photo Taken Yes No -Epithelialization None Present -Tunneling No -Undermining/Tunneling No -Circular Undermining No -Exudate Amt Small Medium -Exudate Type Serosanguineous Serosanguineous -Wound Margin Distinct, Flat & Intact Outline Attached -Granulation Amt Large (67-100%) Large (67-100%) -Granulation Quality [place] -Slough/Fibrin Yes -Necrosis Amt Small (1-33%) Small (1-33%) -Necrotic Tissue Type Adherent Slough Adherent Slough -Structure Exposed N/A -Texture ([place]-wound Skin Appearance) Scarring Assessed, Scarring -Moisture ([place]-wound Skin Appearance) No Abnormality Assessed,Dry/ Scaly -Color ([place]-wound Skin Appearance) No Abnormality Assessed -Temperature ([place]-wound Skin No Abnormality No Abnormality Appearance) (Pt Warm) (Pt Warm) -Tenderness on Palpation ([place]-wound Yes No Skin Appearance) -Ulcer Cleansing Soap and Water Soap and Water -Foul Odor after Cleansing No No -Anesthetic Used 5% Lidocaine 5% Lidocaine Gel Gel #5scrotum/R Groin Cluster -Combined with other wound No -Current Size (cm) - Length 1.2 2 -Current Size (cm) - Width 0.7 0.6 -Current Size (cm) - Depth 0.2 0.2 -Total Square Cm 0.84 1.2 -Photo Taken Yes No -Epithelialization None Present -Tunneling No -Undermining/Tunneling No -Circular Undermining No -Exudate Amt Small Medium -Exudate Type Serosanguineous Serosanguineous -Wound Margin Thickened & Distinct, Rolled Under Outline Attached -Granulation Amt Large (67-100%) Large (67-100%) -Granulation Quality [place] Red -Slough/Fibrin Yes -Necrosis Amt None Present (0 Small (1-33%) %) -Necrotic Tissue Type Adherent Slough -Structure Exposed N/A -Texture ([place]-wound Skin Appearance) Scarring Assessed, Scarring -Moisture ([place]-wound Skin Appearance) No Abnormality Assessed -Color ([place]-wound Skin Appearance) No Abnormality Assessed -Temperature ([place]-wound Skin No Abnormality No Abnormality Appearance) (Pt Warm) (Pt Warm) -Tenderness on Palpation ([place]-wound No No Skin Appearance) -Ulcer Cleansing Soap and Water Soap and Water -Foul Odor after Cleansing No No -Anesthetic Used 5% Lidocaine 5% Lidocaine Gel Gel WC - Nurse 2 - General Ulcer CM Notes Start: 01/21/23 11:13 Freq: Status: Active Protocol: Activity Type Activity Date Activity User E-sign Co-sign Detail Recorded Client Recorded Date Recorded By Document 01/21/23 11:35 Laptop 01/21/23 11:39 Document 01/28/23 09:27 Laptop 01/28/23 09:32 01/21/23 01/28/23 11:35 09:27 Wound Center Nurse 2 #8 L Ischial Cluster -Time 11:38 09:28 -Correct Patient Yes Yes -Correct Side, Site, Position Yes Yes -Correct Procedure Yes Yes -Procedure Performed Yes Yes -Type of Procedure Debridement Debridement -Clinical Debridement Subcutaneous Subcutaneous -Tissue Removed Subcutaneous Subcutaneous -Post Debridement (cm) - Length 3.3 4 -Post Debridement (cm) - Width 4.5 4 -Post Debridement (cm) - Depth 0.1 0.2 -Total Square (Post) (cm) 14.85 16 -Area of Debridement (cm) - Length 3.3 4 -Area of Debridement (cm) - Width 4.5 4 -Total Square (Area) (cm) 14.85 16 -Tunneling No No -Undermining/Tunneling No No -Circular Undermining No No -Wound/Ulcer Outcome Not Healed Not Healed -Ulcer Cleansing Rinsed/ Rinsed/ Irrigated with Irrigated with Saline Saline -Foul Odor after Cleansing No No -Bioengineered Tissue No No -Bleeding Controlled with Pressure Pressure -Treatment Response Procedure Procedure Tolerated Well Tolerated Well -Offloading No No -Debridement - Subq, 1st 20sq cm No No #5scrotum/R Groin Cluster -Time 11:35 09:28 -Correct Patient Yes Yes -Correct Side, Site, Position Yes Yes -Correct Procedure Yes Yes -Procedure Performed Yes Yes -Type of Procedure Debridement Debridement -Clinical Debridement Subcutaneous Subcutaneous -Tissue Removed Subcutaneous Subcutaneous -Post Debridement (cm) - Length 2.0 2.0 -Post Debridement (cm) - Width 0.8 1.5 -Post Debridement (cm) - Depth 0.2 0.3 -Total Square (Post) (cm) 1.60 3.00 -Area of Debridement (cm) - Length 2.0 2.0 -Area of Debridement (cm) - Width 0.8 1.5 -Total Square (Area) (cm) 1.60 3.00 -Tunneling No No -Undermining/Tunneling No No -Circular Undermining No No -Wound/Ulcer Outcome Not Healed Not Healed -Ulcer Cleansing Rinsed/ Rinsed/ Irrigated with Irrigated with Saline Saline -Foul Odor after Cleansing No No -Bioengineered Tissue No No -Bleeding Controlled with Pressure Pressure -Treatment Response Procedure Procedure Tolerated Well Tolerated Well -Offloading No No -Debridement - Subq, 1st 20sq cm Yes Yes Pain Scale: 0-10 Numeric Is Patient Pain Free? Yes Yes - Nurse 3 - General Ulcer D/C NN Start: 01/21/23 11:13 Freq: Status: Active Protocol: Activity Type Activity Date Activity User E-sign Co-sign Detail Recorded Client Recorded Date Recorded By Document 01/21/23 11:46 DL Desktop 01/21/23 11:49 DL Document 01/28/23 09:39 DL Desktop 01/28/23 09:40 DL 01/21/23 01/28/23 11:46 09:39 Wound Care Center Nurse 3 #8 L Ischial Cluster -Ulcer Cleansing Rinsed/ Rinsed/ Irrigated with Irrigated with Saline Saline -Foul Odor after Cleansing No No -Primary Dressing Applied Aquacel AG 4x4 Promogran Jacqueline Matter -Other Dressing abd -Primary Dressing Covered/Secured with Dry Gauze, Secured with Secured with Tape Tape -Aquacel AG 4x4 1 -Promogran Jacqueline Matter 1 #5scrotum/R Groin Cluster -Ulcer Cleansing Rinsed/ Rinsed/ Irrigated with Irrigated with Saline Saline -Foul Odor after Cleansing No No -Primary Dressing Applied Promogran Jacqueline Matter -Other Dressing aquacel ag abd -Primary Dressing Covered/Secured with Dry Gauze, Secured with Secured with Tape Tape -Promogran Jacqueline Matter 0 Treatment Response Procedure Procedure Tolerated Well Tolerated Well Pain Scale: 0-10 Numeric Is Patient Pain Free? Yes Yes WC - Visit Discharge Discharge Condition Stable Stable Ambulatory Status Ambulatory Ambulatory Transportation Private Auto Private Auto Additional Wound Wound debrided: ischial ulcer cluster Laterality: Left Wound Grade/Stage: Stage II Type of Debridement: Excisional debridement Anesthesia Used: 5% Lidocaine Gel Depth: Down to and including healthy tissue and in the subcutaneous layer Percentage of wound debrided: 100 Instrument Used: 5mm curette Tissue Removed: Non viable tissue and slough Severity: Fat Layer Exposed Amount of bleeding with debridement: Mild Bleeding Controlled with: Pressure Patient tolerated procedure: Patient tolerated procedure well Assessment/Plan Assessment/Plan (1) Ulcer of right groin with fat layer exposed: CODE(S): L98.492 - Non-pressure chronic ulcer of skin of other sites with fat layer exposed (2) Ulcer of perineum with fat layer exposed: CODE(S): L98.492 - Non-pressure chronic ulcer of skin of other sites with fat layer exposed (3) Suppurative hidradenitis: CODE(S): L73.2 - Hidradenitis suppurativa (4) Smoker: CODE(S): F17.200 - Nicotine dependence, unspecified, uncomplicated (5) Hypertension: CODE(S): I10 - Essential (primary) hypertension QUALIFIERS: Hypertension type: primary hypertension Qualified Code(s): I10 - Essential (primary) hypertension (6) Diabetes type 2, uncontrolled: CODE(S): E11.65 - Type 2 diabetes mellitus with hyperglycemia QUALIFIERS: Glycemic state: with hyperglycemia Qualified Code(s): E11.65 - Type 2 diabetes mellitus with hyperglycemia (7) Hemoglobin A1c greater than 8.0 percent: CODE(S): R73.09 - Other abnormal glucose (8) Pressure ulcer of left ischium, stage 2: CODE(S): L89.322 - Pressure ulcer of left buttock, stage 2 PLAN: Plan Patient was evaluated at the wound healing center. Wound care - Right groin ulcer and left ischial ulcer place moistened Jacqueline (stop the Aquacel-Ag) covered by gauze/ABD daily and prn. They are not packing into the tunnel at this time. Stressed importance of placing a dressing onto the ulcer to prevent the drainage from macerating the area. Stressed importance of actually wearing a dressing. Operative wound cultures from 11/23/21 positive for Streptococcus constellatus and Corynebacterium striatum. He completed Cefdinir. Creatinine repeat on 11/27/21, which was down to 1.62 from 1.73 on 11/25/21. Also, repeat K+ 4.0. Patient is on his Plavix. Left ischial ulcer wound culture obtained 02/14/21 which was positive for Corynebacterium striatum which is not typically treated with antibiotics. Encouraged increase protein intake and increase Vitamin C intake. Will need supplemental protein to help heal this wound. Encouraged patient to stop smoking as it may have deleterious effects on wound healing. Patient sees dermatology who is managing the medical portion of his hidradenitis. He was scheduled to have debridement of the hidradenitis on his left ischial area and the tunnel on the right on in December. He had to have a cardiac clearance before this surgery. The surgery is currently on hold. Follow up 3 weeks.
== END 2023-02-10 23:59 | disposition home or self-care (01) ==
LOC: WC 09:15
PROVIDERS: PCP Nurse Practitioner; Referring Provider Nurse Practitioner Family; Visit Provider Nurse Practitioner Family
DX: L73.2 Hidradenitis suppurativa (principal); E11.622 Type 2 diabetes mellitus with other skin ulcer; L89.222 Pressure ulcer of left hip, stage 2; L98.492 Non-pressure chronic ulcer of skin of other sites with fat layer exposed; E11.65 Type 2 diabetes mellitus with hyperglycemia; I10 Essential (primary) hypertension; I25.10 Atherosclerotic heart disease of native coronary artery without angina pectoris; F17.200 Nicotine dependence, unspecified, uncomplicated
CPT/HCPCS: 11042

== ENCOUNTER → 2023-02-13 | Outpatient (CLI) | payer MEDICARE, SELFPAY ==
[2023-02-13 11:50] LABS: Protein, Urine (Random) 1260.4 mg/dL (<11.9); Protein:Creat Ratio 7041 mg/g CRE (0-200)
[2023-02-13 12:00] LABS: Anion Gap 8 (5-15); BUN 26 mg/dL (7-18); BUN/Creat Ratio 7.1 RATIO (10-20); Calcium,Total 8.9 mg/dL (8.5-10.1); Chloride 100 mmol/L (98-107); Creatinine, Serum 3.65 mg/dL (0.70-1.30); EST Glomerular Filtration Rate 18 mL/min (>60); Est Glom Filt Rate - Afr Amer 22 mL/min (>60); Glucose 250 mg/dL (74-106); Potassium 3.6 mmol/L (3.5-5.1); Sodium Level 135 mmol/L (136-145)
== END | disposition home or self-care (01) ==
PROVIDERS: PCP Nurse Practitioner; Referring Provider Internal Medicine Nephrology; Visit Provider Internal Medicine Nephrology
DX: N18.4 Chronic kidney disease, stage 4 (severe) (principal)
CPT/HCPCS: 36415; 80048; 82570; 84156

== ENCOUNTER 2023-02-18 14:29 | Emergency (ER) | payer MEDICARE, BC, SELFPAY ==
[2023-02-18] VITALS (11 sets, daily range): BP systolic 180–206; BP diastolic 75–107; PULSE 70–102; RESP 12–20; TEMP 36.1; O2SAT 94–100; BMI 23.7; BMI 22.0; BMI 22.1
--- NOTE | 2023-02-18 15:06 | CT_ITS ---
EXAM: CT HEAD WITHOUT INTRAVENOUS CONTRAST CLINICAL INDICATION: Neuro deficit, acute, stroke suspected TECHNIQUE: Multiple axial images were obtained of the head without intravenous contrast. This CT exam was performed using one or more of the following dose reduction techniques: automated exposure control, adjustment of the mA and/or kV according to patient size, and/or use of iterative reconstruction technique. COMPARISON: No relevant prior studies available. FINDINGS: BRAIN AND EXTRA-AXIAL SPACES: Right occipital lobe encephalomalacia suggestive of chronic infarct. No evidence of acute ischemia. No hemorrhage or mass effect. Ventricles and cortical sulci are normal for the patient''s age. BONES/JOINTS: No suspicious lytic or blastic abnormality. SINUSES: No acute sinusitis. MASTOID AIR CELLS: Normal. Clear. CT/Brain/Head without Contrast IMPRESSION: No acute intracranial abnormality. Chronic right occipital ischemic change. Electronically Signed: Berry Ramirez MD at 16:01 EST ,
--- NOTE | 2023-02-18 15:06 | EKG12_ITS ---
Test Reason : HTN Blood Pressure : / mmHG Vent. Rate : 074 BPM Atrial Rate : 074 BPM P-R Int : 138 ms QRS Dur : 080 ms QT Int : 386 ms P-R-T Axes : -15 055 150 degrees QTc Int : 428 ms Normal sinus rhythm Left ventricular hypertrophy with repolarization abnormality ( Sokolow-White ) Cannot rule out Septal infarct , age undetermined Abnormal ECG Confirmed by NOE RODRIGUEZ, STELLA ([id number]), social media editor GILLIAN GONCALVES ([id number]) on 02/19/2023 10:10:52 AM Referred By: Confirmed By:STELLA LIU MD
--- NOTE | 2023-02-18 15:15 | EX.ED.DYSGE1 ---
HPI History of Present Illness Chief Complaint: Neuro S/Sx Narrative Narrative: 57-year-old male presenting from wound care for elevated blood pressure. Patient states that his blood pressure is always high and it has been high for years. Patient states that a couple of months he was started on clonidine 0.1 mg twice daily by Dr. Bonilla in addition to his amlodipine and carvedilol 2.125 mg. Patient states that about a week later it was titrated up to 0.2 mg twice daily, and the third week subsequently elevated to 0.3 mg p.o. twice daily. Patient states that he went to see his primary care nurse practitioner Adina Bhat and she told him to titrate it back to 0.2 mg because he was having symptoms of lightheadedness and dizziness and had visual complaints when he started taking the medication which really originated when he started taking it at 0.1 mg. Patient states that he has not taken in about a week and he still having visual complaints. 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 Baird. Patient did speak to Dr. Baird who stated that his blood pressure needed to come down but his body need to reset itself and is why he was having visual complaints. Patient states that Dr. Baird was supposed to talk to cardiology and get recommendations for blood pressure medicines but he has not heard from nephrology. Patient states he has not made an attempt to reach out to cardiology himself. He has not taken his clonidine but has taken other medications. He states he had a headache for months and his visual changes have improved or worsened. He has an eye appointment tomorrow with an basin cleaner which was recommended for him. He also states that his last lab work performed by Dr. Bhat showed that his renal function had improved but his hemoglobin has decreased and this is what initially prompted the visit to nephrology. 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 Complete edentulism, class III Complicated open wound of left thigh COPD (chronic obstructive pulmonary disease) Coronary artery disease Coronary artery disease Cough Debility Diabetes Diabetes mellitus Diabetes mellitus type 2, uncontrolled, with complications Diabetes type 2, uncontrolled Dietary restriction Diverticulitis DM type 2, goal HbA1c < 7.5% Edema of both legs Elevated serum creatinine Gastric reflux Gastric ulcer Hemoglobin A1c greater than 8.0 percent Hidradenitis suppurativa of anus Hidradenitis suppurativa of anus History of diverticulitis History of edema History of pain when walking History of stress test History of ulceration Hydradenitis Hydradenitis Hyperlipidemia Hyperlipidemia associated with type 2 diabetes mellitus Hypertension Hypertension Hypokalemia Iron deficiency anemia Kidney disease Lupus (systemic lupus erythematosus) Malnutrition Malnutrition Nausea and vomiting Nicotine dependence No natural teeth Non-healing open wound of right groin Nonhealing skin ulcer Open wound of buttock with complication Open wound of left buttock with complication Open wound of scrotum Open wound of scrotum with complication Pain in the groin Peripheral arterial disease Pneumonia involving right lung Post-operative pain Proteinuria due to type 2 diabetes mellitus Shingles Shingles Shortness of breath on exertion Skin ulcer of scrotum Smoker Suppurative hidradenitis Tobacco dependence syndrome Ulcer of left groin with fat layer exposed Ulcer of perianal area with fat layer exposed Ulcer of perineum with fat layer exposed Ulcer of perineum with fat layer exposed Ulcer of right groin with fat layer exposed Ulcer of scrotum Weakness Weight gain with edema Wound infection Home Medications guselkumab 100 mg/mL subcutaneous syringe ([employer] 100 mg subcut Q4W ARTHRITIS 04/23/22 [History Last Taken 09/26/22] oxybutynin chloride 5 mg tablet,extended release 24 hr 5 mg PO DAILY OVERACTIVE BLADDER 10/01/22 [History Last Taken 10/02/22] albuterol sulfate 90 mcg/actuation aerosol inhaler 2 puff inhalation Q2H PRN PRN shortness of breath or wheezing #8.5 grams 10/05/22 [Rx Last Taken Unknown] amlodipine 10 mg tablet 10 mg PO DAILY #30 tabs 11/14/22 [Rx Last Taken Unknown] clopidogrel 75 mg tablet 75 mg PO DAILY #30 tabs 11/14/22 [Rx Last Taken Unknown] chlorthalidone 25 mg tablet 25 mg PO DAILY 11/22/22 [History Last Taken Unknown] carvedilol 3.125 mg tablet 3.125 mg PO BID #180 tabs 11/26/22 [Rx Last Taken Unknown] atorvastatin 20 mg tablet 20 mg PO QHS #30 tabs 12/17/22 [Rx Last Taken Unknown] pioglitazone 30 mg tablet 30 mg PO DAILY #30 tabs 12/28/22 [Rx Last Taken Unknown] clonidine HCl 0.3 mg tablet 0.3 mg PO BID This is a dose increase for high blood pressure #180 tabs 01/02/23 [Rx Last Taken Unknown] glimepiride 2 mg tablet 2 mg PO DAILY #30 tabs 01/25/23 [Rx Last Taken Unknown] carvedilol 12.5 mg tablet 12.5 mg PO BID #60 tabs 02/18/23 [Rx Last Taken Unknown] Allergy/AdvReac Type Severity Reaction Status Date / Time Penicillins Allergy Unknown Verified 02/18/23 14:31 Sulfa (Sulfonamide Allergy Unknown Verified 02/18/23 14:31 Antibiotics) bupropion [From Wellbutrin] AdvReac Severe change in Verified 02/18/23 14:31 personality ,meanness and smoked more Family History Aunt Lung disease lung cancer Father Heart disease Hypertension Family history of high cholesterol Diabetes Mother Diabetes Daughter Epilepsy Surgical History History of coronary artery stent placement History of incision and drainage History of removal of cyst History of tonsillectomy and adenoidectomy Hx of hernia repair Stented coronary artery Social History household members: spouse Smoking Status: Current every day smoker tobacco type: cigarettes counseling given: provider counseling alcohol intake: never substance use type: does not use caffeine: Yes (7) Type: coffee additional social history: DOES NOT TAKE ASPIRIN DOES NOT TAKE IBUPROFEN ROS ROS ED Constitutional Constitutional ED: Denies fever(s) Eyes Eyes: Reports blurry vision; Denies diplopia ENT ENT ED: Denies rhinorrhea or sore throat Cardiovascular Cardiovascular: Denies chest pain or palpitations Respiratory/Chest Respiratory/Chest: Denies cough or dyspnea Gastrointestinal Gastrointestinal: Denies abdominal pain or constipation Genitourinary Genitourinary ED: Denies dysuria or hematuria Musculoskeletal Musculoskeletal: Denies arthralgias or back pain Integumentary Denies abscess Neurologic Neurologic: Denies headache(s) or paresthesias Psychiatric Psychiatric: Denies anxiety EXAM Physical Exam Const Vital Signs: 02/18/23 14:32 02/18/23 14:49 02/18/23 15:06 Temperature 97 F L Temperature Source Temporal Pulse Rate 86 84 70 Respiratory Rate 18 17 18 Blood Pressure 206/90 H 194/107 H 180/82 H Blood Pressure Mean 128 136 114 Pulse Ox 100 100 100 Oxygen Delivery Method Room Air Room Air Room Air 02/18/23 15:30 02/18/23 15:45 02/18/23 16:00 Temperature Temperature Source Pulse Rate 70 85 Respiratory Rate 18 14 Blood Pressure 180/82 H 203/81 H Blood Pressure Mean 114 121 Pulse Ox 100 100 100 Oxygen Delivery Method Room Air Room Air Room Air 02/18/23 15:36 02/18/23 16:06 02/18/23 16:30 Temperature Temperature Source Pulse Rate 72 74 76 Respiratory Rate 16 16 12 Blood Pressure 182/82 H 203/81 H 202/75 H Blood Pressure Mean 115 121 117 Pulse Ox 98 100 100 Oxygen Delivery Method Room Air Room Air Room Air 02/18/23 17:00 02/18/23 19:36 Temperature Temperature Source Pulse Rate 102 H 85 Respiratory Rate 20 H 12 Blood Pressure 198/80 H 180/90 H Blood Pressure Mean 119 120 Pulse Ox 98 94 Oxygen Delivery Method Room Air Positive well nourished General Appearance ED: NAD HEENT Reports moist mucous membranes Eyes PERRL and EOMs intact bilaterally General Eye ED: Negative for pale conjunctiva or scleral icterus Chest Wall inspection of chest normal Resp normal respiratory effort and clear to auscultation bilaterally Auscultation: Negative for rales, rhonchi or wheezes Cardio regular rate and regular rhythm GI normal to inspection, nondistended, normoactive bowel sounds Neuro oriented x3, CN's II-XII intact bilaterally and no sensory deficits noted Sensorium / Orientation: alert Motor Exam: strength 5/5 throughout Psych mental status grossly normal Skin no rashes or lesions noted MDM MDM MDM Narrative Medical decision making narrative: Patient presenting with elevated blood pressures. He states he has been elevated for some time. He states this has been on going problem for him for couple weeks and he does not like taking the clonidine as it makes him feel lightheaded and dizzy. He also states that he spoke with Dr. Baird regarding this and he already told him that he needed to adjust medications that his body will need to reset. Patient was at wound care today when his blood pressure was elevated and he has not taken his clonidine and with no other new symptoms. Patient has no focal neurologic deficits on examination. CBC was obtained to assess white blood cell count, hemoglobin, platelets. BMP to assess renal function, electrolytes, glucose. High-sensitivity troponin EKG to assess for ischemia/dysrhythmia. Blood workup otherwise unremarkable with exception of a creatinine is slightly elevated at 3.07 above baseline. Troponin 35. EKG sinus rhythm at 74 bpm without sign of ischemic change. Chest x-ray shows no acute process on my interpretation. CT brain was obtained of the patient's complaint of visual disturbance which has not been worked up yet. This does show chronic occipital ischemic change. Nothing acute. Patient counseled on findings. There was a delay in care as is waiting for cardiology to call back regarding the patient's care as he does not want to take clonidine because he is symptomatic with it. I did speak with Dr. Ronquillo who recommended taking the patient off the clonidine and putting him on 12.5 mg of carvedilol p.o. twice daily and discontinue his low-dose carvedilol. This was discussed with the patient. I recommended that he follow-up with ophthalmology tomorrow, cardiology later this week as well as nephrology. Return precautions were discussed. Impression: 1. High blood pressure 2. History of blurry vision 3. History of chronic kidney disease 4. Medical noncompliance Lab Data Attestation: I reviewed the patient's lab results. Labs: Laboratory Results - last 24 hr 02/18/23 02/18/23 15:39 15:59 WBC 9.5 RBC 3.80 L Hgb 9.7 L Hct 30.3 L MCV 79.7 L MCH 25.5 L MCHC 32.0 RDW Std Deviation 42.0 RDW Coeff of Dana 14.5 Plt Count 346 MPV 9.0 Immature Gran % (Auto) 0.300 Neut % (Auto) 71.8 H Lymph % (Auto) 20.1 Gregory % (Auto) 5.9 Eos % (Auto) 1.2 Baso % (Auto) 0.7 Absolute Neuts (auto) 6.8 Absolute Lymphs (auto) 1.90 Nucleated RBC % 0 Sodium 134 L Potassium 3.1 L Chloride 101 Carbon Dioxide 26.0 Anion Gap 7 BUN 23 H Creatinine 3.07 H Estim Creat Clear Calc 24.21 Est GFR (MDRD) Af Amer 27 L Est GFR (MDRD) Non-Af 22 L BUN/Creatinine Ratio 7.5 L Glucose 159 H Calcium 8.8 Troponin I High Sens 35 POC Glucose 151 H Radiography Diagnostic Testing: Clinical Impression(s) from Imaging Studies Brain CT 02/18/23 15:06 IMPRESSION: No acute intracranial abnormality. Chronic right occipital ischemic change. Electronically Signed: Berry Ramirez MD at 16:01 EST , Chest X-Ray 02/18/23 15:46 IMPRESSION: No acute cardiopulmonary abnormality. Electronically Signed: Berry Ramirez MD at 16:05 EST , Discharge Plan Triage Chief Complaint: Neuro S/Sx ED Provider: Kvng Callahan Dx/Rx/DC Orders Clinical Impression: Blurred vision, bilateral Instructions: Understanding Vision Problems, ED Hypertension, Established Prescriptions: New carvedilol 12.5 mg tablet 12.5 mg PO BID Qty: 60 0RF Rx Instructions: must administer with a meal/food No Action carvedilol 3.125 mg tablet 3.125 mg PO BID Qty: 180 3RF Rx Instructions: must administer with a meal/food Tremfya 100 mg/mL syringe 100 mg subcut Q4W oxybutynin chloride 5 mg tablet extended release 24hr 5 mg PO DAILY pioglitazone 30 mg tablet 30 mg PO DAILY Qty: 30 12RF glimepiride 2 mg tablet 2 mg PO DAILY Qty: 30 12RF chlorthalidone 25 mg tablet 25 mg PO DAILY Patient Comments: TAKE 1 TABLET BY MOUTH IN THE MORNING WITH FOOD albuterol sulfate 90 mcg/actuation HFA aerosol inhaler 2 puff inhalation Q2H PRN PRN (Reason: shortness of breath or wheezing) Qty: 8.5 0RF amlodipine 10 mg tablet 10 mg PO DAILY Qty: 30 11RF clopidogrel 75 mg tablet 75 mg PO DAILY Qty: 30 11RF atorvastatin 20 mg tablet 20 mg PO QHS Qty: 30 11RF clonidine HCl 0.3 mg tablet 0.3 mg PO BID Qty: 180 3RF Primary Care Provider: Adina Bhat NP Referrals: Adina Bhat NP, [employer] [Primary Care Provider] - Disposition Disposition: Home, Self Care Discharge Date/Time: 02/18/23 19:38
[2023-02-18 15:45] LABS: Absolute Neutrophil Count 6.8 X10^3/uL (2.0-7.7); Basophil# 0.07 X10^3/uL; Basophil% 0.7 % (0-1); Eosinophil# 0.11 X10^3/uL; Eosinophils% 1.2 % (0-5); Hematocrit 30.3 % (40-54); Hemoglobin 9.7 g/dL (13.0-16.5); Lymphocyte % 20.1 % (19-41); Mean Corpuscular Hgb 25.5 pg (27.0-32.0); Mean Corpuscular Volume 79.7 fL (80-94); Monocyte# 0.56 X10^3/uL; Monocyte% 5.9 % (0-10); NRBC Flagged by Analyzer 0 % (0-5); Neutrophil % 71.8 % (47-70); Platelet Count 346 K/mm3 (150-450); RBC Distribution Width CV 14.5 % (11.6-14.6); White Blood Count 9.5 K/mm3 (4.4-11.0)
--- NOTE | 2023-02-18 15:46 | RAD_ITS ---
EXAM: XR CHEST, 1 VIEW CLINICAL INDICATION: Neuro deficit, acute, stroke suspected TECHNIQUE: Frontal view of the chest. COMPARISON: XR Chest dated 10/02/2022 FINDINGS: LUNGS AND PLEURAL SPACES: Normal. No consolidation or edema. No pneumothorax. No effusion. HEART: Normal heart size. MEDIASTINUM: No mediastinal or hilar mass. BONES/JOINTS: No acute abnormality. RAD/Chest 1 View IMPRESSION: No acute cardiopulmonary abnormality. Electronically Signed: Berry Ramirez MD at 16:05 EST ,
[2023-02-18 16:02] LABS: Anion Gap 7 (5-15); BUN 23 mg/dL (7-18); BUN/Creat Ratio 7.5 RATIO (10-20); Calcium,Total 8.8 mg/dL (8.5-10.1); Chloride 101 mmol/L (98-107); Creatinine, Serum 3.07 mg/dL (0.70-1.30); EST Glomerular Filtration Rate 22 mL/min (>60); Est Glom Filt Rate - Afr Amer 27 mL/min (>60); Estimated Creatinine Clearance 24.21 ml/min; Glucose 159 mg/dL (74-106); Potassium 3.1 mmol/L (3.5-5.1); Sodium Level 134 mmol/L (136-145); Troponin-I HS 35 pg/mL (3.0-78.0)
[2023-02-18 16:22] LABS: Bedside Glucose 151 mg/dL (74-106)
[2023-02-18] MEDS: Carvedilol 12.5 MG Tablet PO (19:36)
== END 2023-02-18 19:38 | disposition home or self-care (01) ==
PROVIDERS: Emergency Provider Student in an Organized Health Care Education/Training Program; PCP Nurse Practitioner; Visit Provider Student in an Organized Health Care Education/Training Program
DX: H53.8 Other visual disturbances (principal); E11.22 Type 2 diabetes mellitus with diabetic chronic kidney disease; F17.210 Nicotine dependence, cigarettes, uncomplicated; N18.9 Chronic kidney disease, unspecified
CPT/HCPCS: 70450; 71045; 80048; 82962; 84484; 85025; 93005; 99283; A4216

== ENCOUNTER 2023-03-11 15:30 | Outpatient (RCR) | payer MEDICARE, BC, SELFPAY ==
[2023-02-11 00:29] VITALS: BP 195/66; PULSE 68; RESP 16; TEMP 36.3
[2023-02-18 13:52] VITALS: BP 235/99; PULSE 100; RESP 16; TEMP 36.2
--- NOTE | 2023-02-18 21:41 | PCM.PN.BLA ---
Progress Note Patient came into the Wound Center today for continued treatment of his hidradenitis ulcers. Patient was complaining of decreased vision and his BP was 235/99. It was recommended to the patient and his family to go to the ED for further evaluation and treatment of his high BP with associated symptomatology. When stabilized, he will return to the Wound Center in the next 1-2 weeks.
--- NOTE | 2023-02-21 08:31 | WC ---
Pt arrived for Wound Visit. BP elevated, unsteady and C/O not being able to see for the last few days. Pt accompanied by son in law. BP 234/54, pt instructed to go to ER per Dr. Smith. Report called to ER, spoke to Gabbie. Pt accompanied to ER by son in law. Added note: original note made on pt 02/18/23 but did not save.
[2023-02-25 13:10] VITALS: BP 188/62; PULSE 67; RESP 22; TEMP 35.7
--- NOTE | 2023-02-25 14:01 | PCM.WC.PN ---
History of Present Illness Date of Service: 02/25/23 Chief Complaint: Nonhealing hidradenitis right perineal and perianal areas and nonhealing ulcer right inguinal area and left ischial (proximal posterior thigh) area History of Wound: 56 year old male who has a history significant for hidradenitis, DM type II, HTN, CAD, arterial insufficiency, and smoker. He had surgery on 11/23/21 for 1. Surgical preparation right inguinal area with excision suppurative hidradenitis abscess (112 cm2, and 192 cm2 total). 2. Surgical preparation right scrotum with incision and drainage and excision suppurative hidradenitis abscess (50 cm2, and 192 cm2 total). 3. Surgical preparation right perineal area with excision suppurative hidradenitis abscess (30 cm2, and 192 cm2 total). Operative wound cultures from 11/23/21 positive for Streptococcus constellatus and Corynebacterium striatum. He was placed on Cefdinir and has finished them. Wound care - Jacqueline. Today he denies fevers, chills, nausea and vomiting. He states that he has a good appetite. He's had intermittent hidradenitis flare-ups in his right perineal and perianal areas in the Fall. Recently those areas have been stable. Patient is diabetic. His HgbA1c from 01/25/23 was 9.0. For elective surgeries, the HgbA1c needs to be less than 8. He came to [facility] on 02/18/23 and was sent to the ED because his systolic BP was 235/99 and he was having visual problems. He was worked up and released home with a change in one of his BP meds (Carvedilol) and stopping one (Clonidine). Progress of Wound: stable. Objective Data Objective Data Vital Signs: Vital Signs Temp Pulse Resp BP O2 Del Method 96.2 F L 67 22 H 188/62 H Room Air 02/25/23 13:10 02/25/23 13:10 02/25/23 13:10 02/25/23 13:10 02/18/23 13:52 Oxygen Delivery Method Room Air Prealbumin from 04/23/22 was 19.8. Encourage nutritional supplementation with protein to help the healing process. Lab / Micro Data Attestation: I reviewed the patient's lab results. Lab results narrative: Patient is diabetic. HgbA1c from 01/25/23 was 9.0. For elective surgeries, the HgbA1c needs to be less than 8. Charges/Coding Procedures Integumentary 111xxx-113xx: 15058 Ayla subq tissue 20 sq cm/< (ICD-10 - L98.492, N50.89, L89.323, L97.122, L73.2, E11.65, R73.09, F17.200) Debridement Note Debridement Note Wound debrided: #5 Right inguinal/scrotal/perineal cluster. Laterality: Right Wound Grade/Stage: 2 Type of Debridement: Excisional debridement Anesthesia Used: 5% Lidocaine Gel Depth: Down to and including healthy tissue and in the subcutaneous layer Percentage of wound debrided: 100 Instrument Used: 3mm curette Tissue Removed: subcutaneous tissue. Severity: Fat Layer Exposed Amount of bleeding with debridement: Mild Bleeding Controlled with: Pressure and Compression and gauze Patient tolerated procedure: Patient tolerated procedure well Post-Debridement Measurements and Additional Note: Post-Debridement Measurements/Treatment - Nurse 1 - General Ulcer Assessment Start: 02/18/23 13:52 Freq: Status: Active Protocol: WC.LOWSARMAD Activity Type Activity Date Activity User E-sign Co-sign Detail Recorded Client Recorded Date Recorded By Document 02/18/23 13:52 KW Desktop 02/18/23 14:05 KW Document 02/25/23 13:10 DL Desktop 02/25/23 13:17 DL 02/18/23 02/25/23 13:52 13:10 - Today's Visit Information Type of service Follow-up Visit Follow-up Visit (Physician/SERVICES PROGRAM MANAGER (Physician/SERVICES PROGRAM MANAGER ) ) Arrival Mode Ambulatory Ambulatory Transfer Assistance None None Transfer Assist (Other) 2-having trouble seeing Accompanied by son in law Patient Identification Verified (Name & Yes Yes ) Patient Requires Transmission-Based No No Precautions Vital Signs Temperature (97.8 F-99.1 F) 97.2 F L 96.2 F L Temperature Source Temporal Temporal Pulse Rate (60-100) 100 67 Pulse Location Monitor Monitor Respiratory Rate (12-18) 16 22 H Respiratory rate source Observation Observation Oxygen Delivery Method Room Air Blood Pressure (90/60-120/80) 235/99 H 188/62 H Blood Pressure Mean (mm Hg) 144 104 Source Monitor Monitor Position Sitting Blood Pressure Location Right Arm Comment manual 222/102; radial 82 ; Printing Plate Clerk advised pt to go to ED History Since Last Visit- (Skip if this is Patient's initial visit) Have you changed medications since your No No last visit? Any new allergies or adverse reactions No No Had a fall/change in ADL's that may No increase risk of falls Signs or symptoms of abuse and/or No No neglect since last visit Have you been in the hospital since your No No last visit? Has dressing in place as prescribed No Yes Has compression in place as prescribed N/A N/A Has offloadiing in place as prescribed N/A N/A Experienced any changes in pain level or No No management Left Footwear Regular Shoe Right Footwear Regular Shoe Pain Scale: 0-10 Numeric Is Patient Pain Free? Yes Yes WC - Nurse 1 - General Ulcer Measurement Start: 02/18/23 13:52 Freq: Status: Active Protocol: Activity Type Activity Date Activity User E-sign Co-sign Detail Recorded Client Recorded Date Recorded By Document 02/25/23 13:10 DL Desktop 02/25/23 13:17 DL 02/25/23 13:10 Wound Center Nurse 1 #8 L Ischial Cluster -Current Size (cm) - Length 1 -Current Size (cm) - Width 1.6 -Current Size (cm) - Depth 0.1 -Total Square Cm 1.6 -Photo Taken Yes -Exudate Amt Small -Exudate Type Serosanguineous -Wound Margin Distinct, Outline Attached -Granulation Amt Large (67-100%) -Granulation Quality [place] -Necrosis Amt None Present (0 %) -Structure Exposed N/A -Texture ([place]-wound Skin Appearance) Scarring -Moisture ([place]-wound Skin Appearance) No Abnormality -Color ([place]-wound Skin Appearance) No Abnormality -Temperature ([place]-wound Skin No Abnormality Appearance) (Pt Warm) -Ulcer Cleansing Soap and Water -Foul Odor after Cleansing No -Anesthetic Used 5% Lidocaine Gel #5scrotum/R Groin Cluster -Current Size (cm) - Length 0.5 -Current Size (cm) - Width 0.2 -Current Size (cm) - Depth 0.2 -Total Square Cm 0.10 -Photo Taken Yes -Exudate Amt Small -Exudate Type Serosanguineous -Wound Margin Distinct, Outline Attached -Granulation Amt Medium (34-66%) -Granulation Quality Red -Necrosis Amt Medium (34-66%) -Structure Exposed Tendon -Texture ([place]-wound Skin Appearance) Scarring -Moisture ([place]-wound Skin Appearance) No Abnormality -Color ([place]-wound Skin Appearance) No Abnormality -Temperature ([place]-wound Skin No Abnormality Appearance) (Pt Warm) -Ulcer Cleansing Soap and Water -Foul Odor after Cleansing No -Anesthetic Used 5% Lidocaine Gel WC - Nurse 2 - General Ulcer CM Notes Start: 02/18/23 13:52 Freq: Status: Active Protocol: Activity Type Activity Date Activity User E-sign Co-sign Detail Recorded Client Recorded Date Recorded By Document 02/25/23 13:31 Laptop 02/25/23 13:37 02/25/23 13:31 Wound Center Nurse 2 #8 L Ischial Cluster -Time 13:36 -Correct Patient Yes -Correct Side, Site, Position Yes -Correct Procedure Yes -Procedure Performed Yes -Type of Procedure Debridement -Clinical Debridement Subcutaneous -Tissue Removed Subcutaneous -Post Debridement (cm) - Length 1.1 -Post Debridement (cm) - Width 1.6 -Post Debridement (cm) - Depth 0.2 -Total Square (Post) (cm) 1.76 -Area of Debridement (cm) - Length 1.1 -Area of Debridement (cm) - Width 1.6 -Total Square (Area) (cm) 1.76 -Tunneling No -Undermining/Tunneling No -Circular Undermining No -Wound/Ulcer Outcome Not Healed -Ulcer Cleansing Rinsed/ Irrigated with Saline -Foul Odor after Cleansing No -Bioengineered Tissue No -Bleeding Controlled with Pressure -Treatment Response Procedure Tolerated Well -Offloading No -Debridement - Subq, 1st 20sq cm No #5scrotum/R Groin Cluster -Time 13:36 -Correct Patient Yes -Correct Side, Site, Position Yes -Correct Procedure Yes -Procedure Performed Yes -Type of Procedure Debridement -Clinical Debridement Subcutaneous -Tissue Removed Subcutaneous -Post Debridement (cm) - Length 0.5 -Post Debridement (cm) - Width 0.3 -Post Debridement (cm) - Depth 0.2 -Total Square (Post) (cm) 0.15 -Area of Debridement (cm) - Length 0.5 -Area of Debridement (cm) - Width 0.3 -Total Square (Area) (cm) 0.15 -Tunneling No -Undermining/Tunneling No -Circular Undermining No -Wound/Ulcer Outcome Not Healed -Ulcer Cleansing Rinsed/ Irrigated with Saline -Foul Odor after Cleansing No -Bioengineered Tissue No -Bleeding Controlled with Pressure -Treatment Response Procedure Tolerated Well -Offloading No -Debridement - Subq, 1st 20sq cm Yes Pain Scale: 0-10 Numeric Is Patient Pain Free? Yes - Nurse 3 - General Ulcer D/C NN Start: 02/18/23 13:52 Freq: Status: Active Protocol: Activity Type Activity Date Activity User E-sign Co-sign Detail Recorded Client Recorded Date Recorded By Document 02/25/23 13:50 [facility] Desktop 02/25/23 13:51 [facility] 02/25/23 13:50 Wound Care Center Nurse 3 #8 L Ischial Cluster -Ulcer Cleansing Rinsed/ Irrigated with Saline -Foul Odor after Cleansing No -Primary Dressing Applied Promogran Jacqueline Matter -Other Dressing abd; secured with coban -Promogran Jacqueline Matter 1 #5scrotum/R Groin Cluster -Ulcer Cleansing Rinsed/ Irrigated with Saline -Foul Odor after Cleansing No -Primary Dressing Applied Promogran Jacqueline Matter -Other Dressing abd; secured with coban -Promogran Jacqueline Matter 0 Treatment Response Procedure Tolerated Well Pain Scale: 0-10 Numeric Is Patient Pain Free? Yes - Visit Discharge Discharge Condition Stable Ambulatory Status Ambulatory Transportation Private Auto Accompanied by Additional Wound Wound debrided: #8 Left ischial/proximal posterior thigh area. Laterality: Left Wound Grade/Stage: 3 Type of Debridement: Excisional debridement Anesthesia Used: 5% Lidocaine Gel Depth: Down to and including healthy tissue and in the subcutaneous layer Percentage of wound debrided: 100 Instrument Used: 3mm curette Tissue Removed: subcutaneous tissue. Severity: Fat Layer Exposed Amount of bleeding with debridement: Mild Bleeding Controlled with: Pressure and Compression and gauze Patient tolerated procedure: Patient tolerated procedure well Assessment/Plan Assessment/Plan (1) Ulcer of right groin with fat layer exposed: CODE(S): L98.492 - Non-pressure chronic ulcer of skin of other sites with fat layer exposed (2) Ulcer of perineum with fat layer exposed: CODE(S): L98.492 - Non-pressure chronic ulcer of skin of other sites with fat layer exposed (3) Skin ulcer of scrotum: CODE(S): N50.89 - Other specified disorders of the male genital organs (4) Pressure sore of left ischium, stage 3: CODE(S): L89.323 - Pressure ulcer of left buttock, stage 3 (5) Chronic ulcer of left thigh with fat layer exposed: CODE(S): L97.122 - Non-pressure chronic ulcer of left thigh with fat layer exposed (6) Suppurative hidradenitis: CODE(S): L73.2 - Hidradenitis suppurativa (7) Diabetes type 2, uncontrolled: CODE(S): E11.65 - Type 2 diabetes mellitus with hyperglycemia QUALIFIERS: Glycemic state: with hyperglycemia Qualified Code(s): E11.65 - Type 2 diabetes mellitus with hyperglycemia (8) Hemoglobin A1c greater than 8.0 percent: CODE(S): R73.09 - Other abnormal glucose (9) Smoker: CODE(S): F17.200 - Nicotine dependence, unspecified, uncomplicated PLAN: Plan Continue Jacqueline to the right groin ulcer and left ischial ulcer. Stressed importance of placing a dressing onto the ulcer to prevent the drainage from macerating the area. Stressed importance of actually wearing a dressing. Encouraged increase protein intake and increase Vitamin C intake. Will need supplemental protein to help heal this wound. His last Prealbumin from 04/23/22 was 19.8. Encouraged patient to stop smoking as it may have deleterious effects on wound healing. Before any surgical debridement will obtain a culture. A positive culture will necessitate antibiotic therapy. Patient sees dermatology who is managing the medical portion of his hidradenitis. His next surgery will be excision hidradenitis right perianal and perineal area and left ischial/proximal posterior thigh ulcer. His Creatinine was 3.07 on 02/18/23. The Potassium was 3.1 on 02/18/23. Hgb was 9.7 on 02/18/23. His Creatinine was 1.56 on 04/23/22. His PCP needs to manage the Creatinine. it needs to be trending downward before proceeding with the surgery. Patient is diabetic. His last HgbA1c was 9.0 on 01/25/23. For elective surgeries, the HgbA1c needs to be less than 8. Follow up 2 weeks.
[2023-03-04 14:54] VITALS: BP 146/71; PULSE 69; RESP 18; TEMP 36.3
--- NOTE | 2023-03-04 16:00 | PN.PCM_ITS ---
History of Present Illness Date of Service: 03/04/23 Chief Complaint: Nonhealing hidradenitis right perineal and perianal areas and nonhealing ulcer right inguinal area and left ischial (proximal posterior thigh) area History of Wound: 57 year old male who has a history significant for hidradenitis, DM type II, HTN, CAD, arterial insufficiency, and smoker. He had surgery on 11/23/21 for 1. Surgical preparation right inguinal area with excision suppurative hidradenitis abscess (112 cm2, and 192 cm2 total). 2. Surgical preparation right scrotum with incision and drainage and excision suppurative hidradenitis abscess (50 cm2, and 192 cm2 total). 3. Surgical preparation right perineal area with excision suppurative hidradenitis abscess (30 cm2, and 192 cm2 total). Operative wound cultures from 11/23/21 positive for Streptococcus constellatus and Corynebacterium striatum. He was placed on Cefdinir and has finished them. Wound care - Jacqueline. Today he denies fevers, chills, nausea and vomiting. He states that he has a good appetite. He's had intermittent hidradenitis flare-ups in his right perineal and perianal areas in the Fall. Recently those areas have been stable. Patient is diabetic. His HgbA1c from 01/25/23 was 9.0. For elective surgeries, the HgbA1c needs to be less than 8. He came to [facility] on 02/18/23 and was sent to the ED because his systolic BP was 235/99 and he was having visual problems. He was worked up and released home with a change in one of his BP meds (Carvedilol) and stopping one (Clonidine). Progress of Wound: stable. Objective Data Objective Data Vital Signs: Vital Signs Temp Pulse Resp BP O2 Del Method 97.3 F L 69 18 146/71 H Room Air 03/04/23 14:54 03/04/23 14:54 03/04/23 14:54 03/04/23 14:54 02/18/23 13:52 Oxygen Delivery Method Room Air Prealbumin from 04/23/22 was 19.8. Encourage nutritional supplementation with protein to help the healing process. Lab / Micro Data Attestation: I reviewed the patient's lab results. Lab results narrative: Patient is diabetic. HgbA1c from 01/25/23 was 9.0. For elective surgeries, the HgbA1c needs to be less than 8. Charges/Coding Procedures Integumentary [id number]: [id number] Ayla subq tissue 20 sq cm/< (ICD-10 - L98.492, N50.89, L89.323, L97.122, L73.2, E11.65, R73.09, F17.200) Debridement Note Debridement Note Wound debrided: #5 Right inguinal/scrotal/perineal cluster. Laterality: Right Wound Grade/Stage: 2 Type of Debridement: Excisional debridement Anesthesia Used: 5% Lidocaine Gel Depth: Down to and including healthy tissue and in the subcutaneous layer Percentage of wound debrided: 100 Instrument Used: 3mm curette Tissue Removed: subcutaneous tissue. Severity: Fat Layer Exposed Amount of bleeding with debridement: Mild Bleeding Controlled with: Pressure and Compression and gauze Patient tolerated procedure: Patient tolerated procedure well Post-Debridement Measurements and Additional Note: Post-Debridement Measurements/Treatment - Nurse 1 - General Ulcer Assessment Start: 02/18/23 13:52 Freq: Status: Active Protocol: .PADMINI Activity Type Activity Date Activity User E-sign Co-sign Detail Recorded Client Recorded Date Recorded By Document 02/18/23 13:52 KW Desktop 02/18/23 14:05 KW Document 02/25/23 13:10 DL Desktop 02/25/23 13:17 DL Document 03/04/23 14:54 DL Desktop 03/04/23 15:00 DL 02/18/23 02/25/23 03/04/23 13:52 13:10 14:54 - Today's Visit Information Type of service Follow-up Visit Follow-up Visit Follow-up Visit (Physician/ANTIQUE FURNITURE RESTORER (Physician/ANTIQUE FURNITURE RESTORER (Physician/ANTIQUE FURNITURE RESTORER ) ) ) Arrival Mode Ambulatory Ambulatory Ambulatory Transfer Assistance None None None Transfer Assist (Other) 2-having trouble seeing Accompanied by son in law Patient Identification Verified (Name & Yes Yes Yes ) Patient Requires Transmission-Based No No No Precautions Finger Stick Blood Sugar(mg/dl) (if not checked indicated): Blood Sugar Stated by Patient Vital Signs Temperature (97.8 F-99.1 F) 97.2 F L 96.2 F L 97.3 F L Temperature Source Temporal Temporal Temporal Pulse Rate (60-100) 100 67 69 Pulse Location Monitor Monitor Monitor Respiratory Rate (12-18) 16 22 H 18 Respiratory rate source Observation Observation Observation Oxygen Delivery Method Room Air Blood Pressure (90/60-120/80) 235/99 H 188/62 H 146/71 H Blood Pressure Mean (mm Hg) 144 104 96 Source Monitor Monitor Monitor Position Sitting Blood Pressure Location Right Arm Comment manual 222/102; radial 82 ; Spool Fixer advised pt to go to ED History Since Last Visit- (Skip if this is Patient's initial visit) Have you changed medications since your No No No last visit? Any new allergies or adverse reactions No No No Had a fall/change in ADL's that may No No increase risk of falls Signs or symptoms of abuse and/or No No No neglect since last visit Have you been in the hospital since your No No No last visit? Has dressing in place as prescribed No Yes Yes Has compression in place as prescribed N/A N/A N/A Has offloadiing in place as prescribed N/A N/A N/A Experienced any changes in pain level or No No No management Left Footwear Regular Shoe Right Footwear Regular Shoe Pain Scale: 0-10 Numeric Is Patient Pain Free? Yes Yes Yes WC - Nurse 1 - General Ulcer Measurement Start: 02/18/23 13:52 Freq: Status: Active Protocol: Activity Type Activity Date Activity User E-sign Co-sign Detail Recorded Client Recorded Date Recorded By Document 02/25/23 13:10 DL Desktop 02/25/23 13:17 DL Document 03/04/23 14:54 DL Desktop 03/04/23 15:00 DL 02/25/23 03/04/23 13:10 14:54 [facility] Center Nurse 1 #8 L Ischial Cluster -Current Size (cm) - Length 1 1.7 -Current Size (cm) - Width 1.6 1.6 -Current Size (cm) - Depth 0.1 0.1 -Total Square Cm 1.6 2.72 -Photo Taken Yes -Exudate Amt Small Small -Exudate Type Serosanguineous Sanguineous -Wound Margin Distinct, Distinct, Outline Outline Attached Attached -Granulation Amt Large (67-100%) Medium (34-66%) -Granulation Quality [place] Pale,[place] -Necrosis Amt None Present (0 Medium (34-66%) %) -Necrotic Tissue Type Adherent Slough -Structure Exposed N/A N/A -Texture ([place]-wound Skin Appearance) Scarring Scarring -Moisture ([place]-wound Skin Appearance) No Abnormality No Abnormality -Color ([place]-wound Skin Appearance) No Abnormality No Abnormality -Temperature ([place]-wound Skin No Abnormality No Abnormality Appearance) (Pt Warm) (Pt Warm) -Ulcer Cleansing Soap and Water Soap and Water -Foul Odor after Cleansing No No -Anesthetic Used 5% Lidocaine 5% Lidocaine Gel Gel #5scrotum/R Groin Cluster -Current Size (cm) - Length 0.5 0.1 -Current Size (cm) - Width 0.2 0.1 -Current Size (cm) - Depth 0.2 0.1 -Total Square Cm 0.10 0.01 -Photo Taken Yes -Exudate Amt Small None Present -Exudate Type Serosanguineous -Wound Margin Distinct, Distinct, Outline Outline Attached Attached -Granulation Amt Medium (34-66%) Small (1-33%) -Granulation Quality [place] -Necrosis Amt Medium (34-66%) None Present (0 %) -Structure Exposed Tendon N/A -Texture ([place]-wound Skin Appearance) Scarring Scarring -Moisture ([place]-wound Skin Appearance) No Abnormality No Abnormality -Color ([place]-wound Skin Appearance) No Abnormality No Abnormality -Temperature ([place]-wound Skin No Abnormality No Abnormality Appearance) (Pt Warm) (Pt Warm) -Tenderness on Palpation ([place]-wound No Skin Appearance) -Ulcer Cleansing Soap and Water Soap and Water -Foul Odor after Cleansing No No -Anesthetic Used 5% Lidocaine Gel WC - Nurse 2 - General Ulcer CM Notes Start: 02/18/23 13:52 Freq: Status: Active Protocol: Activity Type Activity Date Activity User E-sign Co-sign Detail Recorded Client Recorded Date Recorded By Document 02/25/23 13:31 Laptop 02/25/23 13:37 Document 03/04/23 15:18 Laptop 03/04/23 15:25 02/25/23 03/04/23 13:31 15:18 Wound Center Nurse 2 #8 L Ischial Cluster -Time 13:36 15:19 -Correct Patient Yes Yes -Correct Side, Site, Position Yes Yes -Correct Procedure Yes Yes -Procedure Performed Yes Yes -Type of Procedure Debridement Debridement -Clinical Debridement Subcutaneous Subcutaneous -Tissue Removed Subcutaneous Subcutaneous -Post Debridement (cm) - Length 1.1 1.8 -Post Debridement (cm) - Width 1.6 1.6 -Post Debridement (cm) - Depth 0.2 0.1 -Total Square (Post) (cm) 1.76 2.88 -Area of Debridement (cm) - Length 1.1 1.8 -Area of Debridement (cm) - Width 1.6 1.6 -Total Square (Area) (cm) 1.76 2.88 -Tunneling No No -Undermining/Tunneling No No -Circular Undermining No No -Wound/Ulcer Outcome Not Healed Not Healed -Ulcer Cleansing Rinsed/ Rinsed/ Irrigated with Irrigated with Saline Saline -Foul Odor after Cleansing No No -Bioengineered Tissue No No -Bleeding Controlled with Pressure Pressure -Treatment Response Procedure Procedure Tolerated Well Tolerated Well -Offloading No No -Debridement - Subq, 1st 20sq cm No No #5scrotum/R Groin Cluster -Time 13:36 15:19 -Correct Patient Yes Yes -Correct Side, Site, Position Yes Yes -Correct Procedure Yes Yes -Procedure Performed Yes Yes -Type of Procedure Debridement Debridement -Clinical Debridement Subcutaneous Subcutaneous -Tissue Removed Subcutaneous Subcutaneous -Post Debridement (cm) - Length 0.5 1.3 -Post Debridement (cm) - Width 0.3 0.4 -Post Debridement (cm) - Depth 0.2 0.1 -Total Square (Post) (cm) 0.15 0.52 -Area of Debridement (cm) - Length 0.5 1.3 -Area of Debridement (cm) - Width 0.3 0.4 -Total Square (Area) (cm) 0.15 0.52 -Tunneling No No -Undermining/Tunneling No No -Circular Undermining No No -Wound/Ulcer Outcome Not Healed Not Healed -Ulcer Cleansing Rinsed/ Rinsed/ Irrigated with Irrigated with Saline Saline -Foul Odor after Cleansing No No -Bioengineered Tissue No No -Bleeding Controlled with Pressure Pressure -Treatment Response Procedure Procedure Tolerated Well Tolerated Well -Offloading No No -Debridement - Subq, 1st 20sq cm Yes Yes Pain Scale: 0-10 Numeric Is Patient Pain Free? Yes Yes - Nurse 3 - General Ulcer D/C NN Start: 02/18/23 13:52 Freq: Status: Active Protocol: Activity Type Activity Date Activity User E-sign Co-sign Detail Recorded Client Recorded Date Recorded By Document 02/25/23 13:50 [facility] Desktop 02/25/23 13:51 [facility] Document 03/04/23 15:37 [facility] Desktop 03/04/23 15:39 [facility] 02/25/23 03/04/23 13:50 15:37 [facility] Nurse 3 #8 L Ischial Cluster -Ulcer Cleansing Rinsed/ Rinsed/ Irrigated with Irrigated with Saline Saline -Foul Odor after Cleansing No No -Primary Dressing Applied Promogran Promogran Jacqueline Matter Jacqueline Matter -Other Dressing abd; secured secured w/ with coban coban; drsg per dl scale and skip car operator -Other Covering abd -Promogran Jacqueline Matter 1 1 #5scrotum/R Groin Cluster -Ulcer Cleansing Rinsed/ Rinsed/ Irrigated with Irrigated with Saline Saline -Foul Odor after Cleansing No No -Primary Dressing Applied Promogran Promogran Jacqueline Matter Jacqueline Matter -Other Dressing abd; secured secured w/ with coban coban; abd; drsg per dl scale and skip car operator -Promogran Jacqueline Matter 0 0 Treatment Response Procedure Procedure Tolerated Well Tolerated Well Pain Scale: 0-10 Numeric Is Patient Pain Free? Yes Yes WC - Visit Discharge Discharge Condition Stable Stable Ambulatory Status Ambulatory Ambulatory Transportation Private Auto Private Auto Accompanied by Additional Wound Wound debrided: #8 Left ischial/proximal posterior thigh area. Laterality: Left Wound Grade/Stage: 3 Type of Debridement: Excisional debridement Anesthesia Used: 5% Lidocaine Gel Depth: Down to and including healthy tissue and in the subcutaneous layer Percentage of wound debrided: 100 Instrument Used: 3mm curette Tissue Removed: subcutaneous tissue. Severity: Fat Layer Exposed Amount of bleeding with debridement: Mild Bleeding Controlled with: Pressure and Compression and gauze Patient tolerated procedure: Patient tolerated procedure well Assessment/Plan Assessment/Plan (1) Ulcer of right groin with fat layer exposed: CODE(S): L98.492 - Non-pressure chronic ulcer of skin of other sites with fat layer exposed (2) Ulcer of perineum with fat layer exposed: CODE(S): L98.492 - Non-pressure chronic ulcer of skin of other sites with fat layer exposed (3) Skin ulcer of scrotum: CODE(S): N50.89 - Other specified disorders of the male genital organs (4) Pressure sore of left ischium, stage 3: CODE(S): L89.323 - Pressure ulcer of left buttock, stage 3 (5) Chronic ulcer of left thigh with fat layer exposed: CODE(S): L97.122 - Non-pressure chronic ulcer of left thigh with fat layer exposed (6) Suppurative hidradenitis: CODE(S): L73.2 - Hidradenitis suppurativa (7) Diabetes type 2, uncontrolled: CODE(S): E11.65 - Type 2 diabetes mellitus with hyperglycemia QUALIFIERS: Glycemic state: with hyperglycemia Qualified Code(s): E11.65 - Type 2 diabetes mellitus with hyperglycemia (8) Hemoglobin A1c greater than 8.0 percent: CODE(S): R73.09 - Other abnormal glucose (9) Smoker: CODE(S): F17.200 - Nicotine dependence, unspecified, uncomplicated PLAN: Plan Continue Jacqueline to the right groin ulcer and left ischial ulcer. Encouraged increase protein intake and increase Vitamin C intake. Will need supplemental protein to help heal this wound. His last Prealbumin from 04/23/22 was 19.8. Encouraged patient to stop smoking as it may have deleterious effects on wound healing. Before any surgical debridement will obtain a culture. A positive culture will necessitate antibiotic therapy. Patient sees dermatology who is managing the medical portion of his hidradenitis. His next surgery will be excision hidradenitis right perianal and perineal area and left ischial/proximal posterior thigh ulcer. His Creatinine was 3.07 on 02/18/23. The Potassium was 3.1 on 02/18/23. Hgb was 9.7 on 02/18/23. His Creatinine was 1.56 on 04/23/22. His PCP needs to manage the Creatinine. it needs to be trending downward before proceeding with the surgery. Patient is diabetic. His last HgbA1c was 9.0 on 01/25/23. For elective surgeries, the HgbA1c needs to be less than 8. Follow up one week.
[2023-03-11 15:26] VITALS: BP 166/49; PULSE 57; RESP 16; TEMP 36.6
--- NOTE | 2023-03-11 15:57 | PCM.WC.PN ---
History of Present Illness Date of Service: 03/11/23 Chief Complaint: Nonhealing hidradenitis right perineal and perianal areas and nonhealing ulcer right inguinal area and left ischial (proximal posterior thigh) area History of Wound: 57 year old male who has a history significant for hidradenitis, DM type II, HTN, CAD, arterial insufficiency, and smoker. He had surgery on 11/23/21 for 1. Surgical preparation right inguinal area with excision suppurative hidradenitis abscess (112 cm2, and 192 cm2 total). 2. Surgical preparation right scrotum with incision and drainage and excision suppurative hidradenitis abscess (50 cm2, and 192 cm2 total). 3. Surgical preparation right perineal area with excision suppurative hidradenitis abscess (30 cm2, and 192 cm2 total). Operative wound cultures from 11/23/21 positive for Streptococcus constellatus and Corynebacterium striatum. He was placed on Cefdinir and has finished them. Wound care - Jacqueline. Today he denies fevers, chills, nausea and vomiting. He states that he has a good appetite. He's had intermittent hidradenitis flare-ups in his right perineal and perianal areas in the Fall. Recently those areas have been stable. Patient is diabetic. His HgbA1c from 01/25/23 was 9.0. For elective surgeries, the HgbA1c needs to be less than 8. He came to [facility] on 02/18/23 and was sent to the ED because his systolic BP was 235/99 and he was having visual problems. He was worked up and released home with a change in one of his BP meds (Carvedilol) and stopping one (Clonidine). Progress of Wound: stable. Objective Data Objective Data Vital Signs: Vital Signs Temp Pulse Resp BP O2 Del Method 97.8 F 57 L 16 166/49 H Room Air 03/11/23 15:26 03/11/23 15:26 03/11/23 15:26 03/11/23 15:26 03/11/23 15:26 Oxygen Delivery Method Room Air Charges/Coding Procedures Integumentary [id number]: [id number] Ayla subq tissue 20 sq cm/< (ICD-10 - L98.492, N50.89, L89.323, L97.122, L73.2, E11.65, R73.09, F17.200) Debridement Note Debridement Note Wound debrided: #5 Right inguinal/scrotal/perineal cluster. Laterality: Right Wound Grade/Stage: 2 Type of Debridement: Excisional debridement Anesthesia Used: 5% Lidocaine Gel Depth: Down to and including healthy tissue and in the subcutaneous layer Percentage of wound debrided: 100 Instrument Used: 3mm curette Tissue Removed: subcutaneous tissue. Severity: Fat Layer Exposed Amount of bleeding with debridement: Mild Bleeding Controlled with: Pressure and Compression and gauze Patient tolerated procedure: Patient tolerated procedure well Post-Debridement Measurements and Additional Note: Post-Debridement Measurements/Treatment - Nurse 1 - General Ulcer Assessment Start: 02/18/23 13:52 Freq: Status: Active Protocol: ROC Activity Type Activity Date Activity User E-sign Co-sign Detail Recorded Client Recorded Date Recorded By Document 02/18/23 13:52 KW Desktop 02/18/23 14:05 KW Document 02/25/23 13:10 DL Desktop 02/25/23 13:17 DL Document 03/04/23 14:54 DL Desktop 03/04/23 15:00 DL Document 03/11/23 15:26 BMF Desktop 03/11/23 15:33 BMF 02/18/23 02/25/23 03/04/23 13:52 13:10 14:54 - Today's Visit Information Type of service Follow-up Visit Follow-up Visit Follow-up Visit (Physician/BREAKER BOSS (Physician/BREAKER BOSS (Physician/BREAKER BOSS ) ) ) Arrival Mode Ambulatory Ambulatory Ambulatory Transfer Assistance None None None Transfer Assist (Other) 2-having trouble seeing Accompanied by son in law Patient Identification Verified (Name & Yes Yes Yes ) Patient Requires Transmission-Based No No No Precautions Finger Stick Blood Sugar(mg/dl) (if not checked indicated): Blood Sugar Stated by Patient Vital Signs Temperature (97.8 F-99.1 F) 97.2 F L 96.2 F L 97.3 F L Temperature Source Temporal Temporal Temporal Pulse Rate (60-100) 100 67 69 Pulse Location Monitor Monitor Monitor Respiratory Rate (12-18) 16 22 H 18 Respiratory rate source Observation Observation Observation Oxygen Delivery Method Room Air Blood Pressure (90/60-120/80) 235/99 H 188/62 H 146/71 H Blood Pressure Mean (mm Hg) 144 104 96 Source Monitor Monitor Monitor Position Sitting Blood Pressure Location Right Arm Comment manual 222/102; radial 82 ; Anodizer advised pt to go to ED History Since Last Visit- (Skip if this is Patient's initial visit) Have you changed medications since your No No No last visit? Any new allergies or adverse reactions No No No Had a fall/change in ADL's that may No No increase risk of falls Signs or symptoms of abuse and/or No No No neglect since last visit Have you been in the hospital since your No No No last visit? Has dressing in place as prescribed No Yes Yes Has compression in place as prescribed N/A N/A N/A Has offloadiing in place as prescribed N/A N/A N/A Experienced any changes in pain level or No No No management Left Footwear Regular Shoe Right Footwear Regular Shoe Pain Scale: 0-10 Numeric Is Patient Pain Free? Yes Yes Yes 03/11/23 15:26 WC - Today's Visit Information Type of service Follow-up Visit (Physician/BREAKER BOSS ) Arrival Mode Ambulatory Transfer Assistance None Transfer Assist (Other) Accompanied by Patient Identification Verified (Name & Yes ) Patient Requires Transmission-Based No Precautions Finger Stick Blood Sugar(mg/dl) (if indicated): Blood Sugar Vital Signs Temperature (97.8 F-99.1 F) 97.8 F Temperature Source Temporal Pulse Rate (60-100) 57 L Pulse Location Monitor Respiratory Rate (12-18) 16 Respiratory rate source Observation Oxygen Delivery Method Room Air Blood Pressure (90/60-120/80) 166/49 H Blood Pressure Mean (mm Hg) 88 Source Monitor Position Sitting Blood Pressure Location Left Arm Comment History Since Last Visit- (Skip if this is Patient's initial visit) Have you changed medications since your No last visit? Any new allergies or adverse reactions No Had a fall/change in ADL's that may No increase risk of falls Signs or symptoms of abuse and/or No neglect since last visit Have you been in the hospital since your No last visit? Has dressing in place as prescribed No Has compression in place as prescribed N/A Has offloadiing in place as prescribed N/A Experienced any changes in pain level or No management Left Footwear Regular Shoe Right Footwear Regular Shoe Pain Scale: 0-10 Numeric Is Patient Pain Free? Yes WC - Nurse 1 - General Ulcer Measurement Start: 02/18/23 13:52 Freq: Status: Active Protocol: Activity Type Activity Date Activity User E-sign Co-sign Detail Recorded Client Recorded Date Recorded By Document 02/25/23 13:10 DL Desktop 02/25/23 13:17 DL Document 03/04/23 14:54 DL Desktop 03/04/23 15:00 DL Document 03/11/23 15:26 BM Desktop 03/11/23 15:33 BMF 02/25/23 03/04/23 03/11/23 13:10 14:54 15:26 Wound Center Nurse 1 #8 L Ischial Cluster -Current Size (cm) - Length 1 1.7 3.1 -Current Size (cm) - Width 1.6 1.6 2.2 -Current Size (cm) - Depth 0.1 0.1 0.1 -Total Square Cm 1.6 2.72 6.82 -Photo Taken Yes -Exudate Amt Small Small None Present -Exudate Type Serosanguineous Sanguineous Serosanguineous -Wound Margin Distinct, Distinct, Distinct, Outline Outline Outline Attached Attached Attached -Granulation Amt Large (67-100%) Medium (34-66%) Large (67-100%) -Granulation Quality Silver Gate Pale,Silver Gate Silver Gate,Red -Necrosis Amt None Present (0 Medium (34-66%) Small (1-33%) %) -Necrotic Tissue Type Adherent Slough Adherent Slough -Structure Exposed N/A N/A N/A -Texture (Abimbola-wound Skin Appearance) Scarring Scarring Scarring -Moisture (Abimbola-wound Skin Appearance) No Abnormality No Abnormality No Abnormality -Color (Abimbola-wound Skin Appearance) No Abnormality No Abnormality No Abnormality -Temperature ([place]imbola-wound Skin No Abnormality No Abnormality No Abnormality Appearance) (Pt Warm) (Pt Warm) (Pt Warm) -Tenderness on Palpation (Abimbola-wound No Skin Appearance) -Ulcer Cleansing Soap and Water Soap and Water Soap and Water -Foul Odor after Cleansing No No No -Anesthetic Used 5% Lidocaine 5% Lidocaine 5% Lidocaine Gel Gel Gel #5scrotum/R Groin Cluster -Current Size (cm) - Length 0.5 0.1 0.9 -Current Size (cm) - Width 0.2 0.1 0.3 -Current Size (cm) - Depth 0.2 0.1 0.3 -Total Square Cm 0.10 0.01 0.27 -Photo Taken Yes -Exudate Amt Small None Present Small -Exudate Type Serosanguineous Serosanguineous -Wound Margin Distinct, Distinct, Distinct, Outline Outline Outline Attached Attached Attached -Granulation Amt Medium (34-66%) Small (1-33%) Large (67-100%) -Granulation Quality Red Silver Gate Silver Gate -Necrosis Amt Medium (34-66%) None Present (0 None Present (0 %) %) -Structure Exposed Tendon N/A N/A -Texture (Abimbola-wound Skin Appearance) Scarring Scarring Scarring -Moisture (Abimbola-wound Skin Appearance) No Abnormality No Abnormality No Abnormality -Color (Abimbola-wound Skin Appearance) No Abnormality No Abnormality No Abnormality -Temperature ([place]imbola-wound Skin No Abnormality No Abnormality Appearance) (Pt Warm) (Pt Warm) -Tenderness on Palpation (Abimbola-wound No No Skin Appearance) -Ulcer Cleansing Soap and Water Soap and Water Soap and Water -Foul Odor after Cleansing No No -Anesthetic Used 5% Lidocaine 5% Lidocaine Gel Gel,Cetacaine WC - Nurse 2 - General Ulcer CM Notes Start: 02/18/23 13:52 Freq: Status: Active Protocol: Activity Type Activity Date Activity User E-sign Co-sign Detail Recorded Client Recorded Date Recorded By Document 02/25/23 13:31 Laptop 02/25/23 13:37 Document 03/04/23 15:18 Laptop 03/04/23 15:25 Document 03/11/23 15:40 Laptop 03/11/23 15:43 02/25/23 03/04/23 03/11/23 13:31 15:18 15:40 Wound Center Nurse 2 #8 L Ischial Cluster -Time 13:36 15:19 15:41 -Correct Patient Yes Yes Yes -Correct Side, Site, Position Yes Yes Yes -Correct Procedure Yes Yes Yes -Procedure Performed Yes Yes Yes -Type of Procedure Debridement Debridement Debridement -Clinical Debridement Subcutaneous Subcutaneous Subcutaneous -Tissue Removed Subcutaneous Subcutaneous Subcutaneous -Post Debridement (cm) - Length 1.1 1.8 3.2 -Post Debridement (cm) - Width 1.6 1.6 2.2 -Post Debridement (cm) - Depth 0.2 0.1 0.1 -Total Square (Post) (cm) 1.76 2.88 7.04 -Area of Debridement (cm) - Length 1.1 1.8 3.2 -Area of Debridement (cm) - Width 1.6 1.6 2.2 -Total Square (Area) (cm) 1.76 2.88 7.04 -Tunneling No No No -Undermining/Tunneling No No No -Circular Undermining No No No -Wound/Ulcer Outcome Not Healed Not Healed Not Healed -Ulcer Cleansing Rinsed/ Rinsed/ Rinsed/ Irrigated with Irrigated with Irrigated with Saline Saline Saline -Foul Odor after Cleansing No No No -Bioengineered Tissue No No No -Bleeding Controlled with Pressure Pressure Pressure -Treatment Response Procedure Procedure Procedure Tolerated Well Tolerated Well Tolerated Well -Offloading No No No -Debridement - Subq, 1st 20sq cm No No Yes #5scrotum/R Groin Cluster -Time 13:36 15:19 15:42 -Correct Patient Yes Yes Yes -Correct Side, Site, Position Yes Yes Yes -Correct Procedure Yes Yes Yes -Procedure Performed Yes Yes Yes -Type of Procedure Debridement Debridement Debridement -Clinical Debridement Subcutaneous Subcutaneous Subcutaneous -Tissue Removed Subcutaneous Subcutaneous Subcutaneous -Post Debridement (cm) - Length 0.5 1.3 1.0 -Post Debridement (cm) - Width 0.3 0.4 0.3 -Post Debridement (cm) - Depth 0.2 0.1 0.3 -Total Square (Post) (cm) 0.15 0.52 0.30 -Area of Debridement (cm) - Length 0.5 1.3 1.0 -Area of Debridement (cm) - Width 0.3 0.4 0.3 -Total Square (Area) (cm) 0.15 0.52 0.30 -Tunneling No No No -Undermining/Tunneling No No No -Circular Undermining No No No -Wound/Ulcer Outcome Not Healed Not Healed Not Healed -Ulcer Cleansing Rinsed/ Rinsed/ Rinsed/ Irrigated with Irrigated with Irrigated with Saline Saline Saline -Foul Odor after Cleansing No No No -Bioengineered Tissue No No No -Bleeding Controlled with Pressure Pressure Pressure -Treatment Response Procedure Procedure Procedure Tolerated Well Tolerated Well Tolerated Well -Offloading No No No -Debridement - Subq, 1st 20sq cm Yes Yes No Pain Scale: 0-10 Numeric Is Patient Pain Free? Yes Yes Yes - Nurse 3 - General Ulcer D/C NN Start: 02/18/23 13:52 Freq: Status: Active Protocol: Activity Type Activity Date Activity User E-sign Co-sign Detail Recorded Client Recorded Date Recorded By Document 02/25/23 13:50 [facility] Desktop 02/25/23 13:51 [facility] Document 03/04/23 15:37 [facility] Desktop 03/04/23 15:39 [facility] Document 03/11/23 15:54 [facility] Desktop 03/11/23 15:55 F 02/25/23 03/04/23 03/11/23 13:50 15:37 15:54 Wound Care Center Nurse 3 #8 L Ischial Cluster -Ulcer Cleansing Rinsed/ Rinsed/ Rinsed/ Irrigated with Irrigated with Irrigated with Saline Saline Saline -Foul Odor after Cleansing No No No -Primary Dressing Applied Promogran Promogran Promogran Jacqueline Matter Jacqueline Matter Jacqueline Matter -Other Dressing abd; secured secured w/ abd; drsg per with coban coban; drsg per dl 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 and tacking machine operator dl hemming and tacking machine operator -Other Covering abd secured w/ coban -Promogran Jacqueline Matter 1 1 1 #5scrotum/R Groin Cluster -Ulcer Cleansing Rinsed/ Rinsed/ Rinsed/ Irrigated with Irrigated with Irrigated with Saline Saline Saline -Foul Odor after Cleansing No No No -Primary Dressing Applied Promogran Promogran Promogran Jacqueline Matter Jacqueline Matter Jacqueline Matter -Other Dressing abd; secured secured w/ secured w/ with coban coban; abd; coban; abd; drsg per dl hemming and tacking machine operator drsg per dl hemming and tacking machine operator -Promogran Jacqueline Matter 0 0 0 Treatment Response Procedure Procedure Procedure Tolerated Well Tolerated Well Tolerated Well Pain Scale: 0-10 Numeric Is Patient Pain Free? Yes Yes Yes WC - Visit Discharge Discharge Condition Stable Stable Stable Ambulatory Status Ambulatory Ambulatory Ambulatory Transportation Private Auto Private Auto Private Auto Accompanied by Additional Wound Wound debrided: #8 Left ischial/proximal posterior thigh area. Laterality: Left Wound Grade/Stage: 3 Type of Debridement: Excisional debridement Anesthesia Used: 5% Lidocaine Gel Depth: Down to and including healthy tissue and in the subcutaneous layer Percentage of wound debrided: 100 Instrument Used: 3mm curette Tissue Removed: subcutaneous tissue. Severity: Fat Layer Exposed Amount of bleeding with debridement: Mild Bleeding Controlled with: Pressure and Compression and gauze Patient tolerated procedure: Patient tolerated procedure well Assessment/Plan Assessment/Plan (1) Ulcer of right groin with fat layer exposed: CODE(S): L98.492 - Non-pressure chronic ulcer of skin of other sites with fat layer exposed (2) Ulcer of perineum with fat layer exposed: CODE(S): L98.492 - Non-pressure chronic ulcer of skin of other sites with fat layer exposed (3) Skin ulcer of scrotum: CODE(S): N50.89 - Other specified disorders of the male genital organs (4) Pressure sore of left ischium, stage 3: CODE(S): L89.323 - Pressure ulcer of left buttock, stage 3 (5) Chronic ulcer of left thigh with fat layer exposed: CODE(S): L97.122 - Non-pressure chronic ulcer of left thigh with fat layer exposed (6) Suppurative hidradenitis: CODE(S): L73.2 - Hidradenitis suppurativa (7) Diabetes type 2, uncontrolled: CODE(S): E11.65 - Type 2 diabetes mellitus with hyperglycemia QUALIFIERS: Glycemic state: with hyperglycemia Qualified Code(s): E11.65 - Type 2 diabetes mellitus with hyperglycemia (8) Hemoglobin A1c greater than 8.0 percent: CODE(S): R73.09 - Other abnormal glucose (9) Smoker: CODE(S): F17.200 - Nicotine dependence, unspecified, uncomplicated PLAN: Plan Continue Jacqueline to the right groin ulcer and left ischial ulcer. Encouraged increase protein intake and increase Vitamin C intake. Will need supplemental protein to help heal this wound. His last Prealbumin from 04/23/22 was 19.8. Encouraged patient to stop smoking as it may have deleterious effects on wound healing. Before any surgical debridement will obtain a culture. A positive culture will necessitate antibiotic therapy. Patient sees dermatology who is managing the medical portion of his hidradenitis. His next surgery will be excision hidradenitis right perianal and perineal area and left ischial/proximal posterior thigh ulcer and right inguinal ulcer. The ulcers would be skin grafted. The hidradenitis ulcers will be left open and packed with Silver dressings. His Creatinine was 3.07 on 02/18/23. The Potassium was 3.1 on 02/18/23. Hgb was 9.7 on 02/18/23. His Creatinine was 1.56 on 04/23/22. His PCP needs to manage the Creatinine. it needs to be trending downward before proceeding with the surgery. Patient is diabetic. His last HgbA1c was 9.0 on 01/25/23. For elective surgeries, the HgbA1c needs to be less than 8. Follow up one week.
== END 2023-03-13 23:59 | disposition home or self-care (01) ==
LOC: WC 15:30
PROVIDERS: PCP Nurse Practitioner; Referring Provider Nurse Practitioner Family; Visit Provider Surgery
DX: L73.2 Hidradenitis suppurativa (principal); L89.223 Pressure ulcer of left hip, stage 3; E11.622 Type 2 diabetes mellitus with other skin ulcer; L97.122 Non-pressure chronic ulcer of left thigh with fat layer exposed; E11.65 Type 2 diabetes mellitus with hyperglycemia; I10 Essential (primary) hypertension; N50.9 Disorder of male genital organs, unspecified; I25.10 Atherosclerotic heart disease of native coronary artery without angina pectoris
CPT/HCPCS: 11042

== ENCOUNTER 2023-04-08 14:30 | Outpatient (RCR) | payer MEDICARE, BC, SELFPAY ==
[2023-03-14 00:50] VITALS: BP 166/49; PULSE 57; RESP 16; TEMP 36.6
[2023-03-18 15:23] VITALS: BP 112/43; PULSE 61; RESP 18; TEMP 37
--- NOTE | 2023-03-18 15:40 | PCM.WC.PN ---
History of Present Illness Date of Service: 03/18/23 Chief Complaint: Nonhealing hidradenitis right perineal and perianal areas and nonhealing ulcer right inguinal area and left ischial (proximal posterior thigh) area History of Wound: 57 year old male who has a history significant for hidradenitis, DM type II, HTN, CAD, arterial insufficiency, and smoker. He had surgery on 11/23/21 for 1. Surgical preparation right inguinal area with excision suppurative hidradenitis abscess (112 cm2, and 192 cm2 total). 2. Surgical preparation right scrotum with incision and drainage and excision suppurative hidradenitis abscess (50 cm2, and 192 cm2 total). 3. Surgical preparation right perineal area with excision suppurative hidradenitis abscess (30 cm2, and 192 cm2 total). Operative wound cultures from 11/23/21 positive for Streptococcus constellatus and Corynebacterium striatum. He was placed on Cefdinir and has finished them. Wound care - Jacqueline. Today he denies fevers, chills, nausea and vomiting. He states that he has a good appetite. He's had intermittent hidradenitis flare-ups in his right perineal and perianal areas in the Fall. Recently those areas have been stable. Patient is diabetic. His HgbA1c from 01/25/23 was 9.0. For elective surgeries, the HgbA1c needs to be less than 8. He came to [facility] on 02/18/23 and was sent to the ED because his systolic BP was 235/99 and he was having visual problems. He was worked up and released home with a change in one of his BP meds (Carvedilol) and stopping one (Clonidine). Progress of Wound: stable. Objective Data Objective Data Vital Signs: Vital Signs Temp Pulse Resp BP O2 Del Method 98.6 F 61 18 112/43 L Room Air 03/18/23 15:23 03/18/23 15:23 03/18/23 15:03/18/23 15:03/18/23 15: Oxygen Delivery Method Room Air Lab / Micro Data Attestation: I reviewed the patient's lab results. Lab results narrative: Patient is diabetic. HgbA1c from 01/25/23 was 9.0. For elective surgeries, the HgbA1c needs to be less than 8. Charges/Coding Procedures Integumentary 111xxx-113xx: 13500 Ayla subq tissue 20 sq cm/< (ICD-10 - L98.492, N50.89, L89.323, L97.122, L73.2, E11.65, R73.09, F17.200) Debridement Note Debridement Note Wound debrided: #5 Right inguinal/scrotal/perineal cluster. Laterality: Right Wound Grade/Stage: 2 Type of Debridement: Excisional debridement Anesthesia Used: 5% Lidocaine Gel Depth: Down to and including healthy tissue and in the subcutaneous layer Percentage of wound debrided: 100 Instrument Used: 3mm curette Tissue Removed: subcutaneous tissue. Severity: Fat Layer Exposed Amount of bleeding with debridement: Mild Bleeding Controlled with: Pressure and Compression and gauze Patient tolerated procedure: Patient tolerated procedure well Post-Debridement Measurements and Additional Note: Post-Debridement Measurements/Treatment - Nurse 1 - General Ulcer Assessment Start: 03/18/23 15:22 Freq: Status: Active Protocol: ROC Activity Type Activity Date Activity User E-sign Co-sign Detail Recorded Client Recorded Date Recorded By Document 03/18/23 15:23 KW Desktop 03/18/23 15:33 KW 03/18/23 15:23 - Today's Visit Information Type of service Follow-up Visit (Physician/RN PALLIATIVE ) Arrival Mode Ambulatory Accompanied by Patient Identification Verified (Name & Yes ) Vital Signs Temperature (97.8 F-99.1 F) 98.6 F Temperature Source Temporal Pulse Rate (60-100) 61 Pulse Location Monitor Respiratory Rate (12-18) 18 Respiratory rate source Observation Oxygen Delivery Method Room Air Blood Pressure (90/60-120/80) 112/43 L Blood Pressure Mean (mm Hg) 66 Source Monitor Position Semi-Fowlers Blood Pressure Location Left Arm History Since Last Visit- (Skip if this is Patient's initial visit) Have you changed medications since your No last visit? Any new allergies or adverse reactions No Had a fall/change in ADL's that may No increase risk of falls Signs or symptoms of abuse and/or No neglect since last visit Have you been in the hospital since your No last visit? Has dressing in place as prescribed Yes Has compression in place as prescribed N/A Has offloadiing in place as prescribed N/A Experienced any changes in pain level or No management Left Footwear Regular Shoe Right Footwear Regular Shoe Pain Scale: 0-10 Numeric Is Patient Pain Free? Yes WC - Nurse 1 - General Ulcer Measurement Start: 03/18/23 15:22 Freq: Status: Active Protocol: Activity Type Activity Date Activity User E-sign Co-sign Detail Recorded Client Recorded Date Recorded By Document 03/18/23 15:23 KW Desktop 03/18/23 15:33 KW 03/18/23 15:23 Wound Center Nurse 1 #8 L Ischial Cluster -Current Size (cm) - Length 2.5 -Current Size (cm) - Width 2.6 -Current Size (cm) - Depth 0.1 -Total Square Cm 6.50 -Exudate Amt Small -Exudate Type Serosanguineous -Wound Margin Distinct, Outline Attached -Granulation Amt Large (67-100%) -Granulation Quality Grady -Necrosis Amt Small (1-33%) -Necrotic Tissue Type Adherent Slough -Texture (Abimbola-wound Skin Appearance) Assessed -Moisture (Abimbola-wound Skin Appearance) Assessed -Color (Abimbola-wound Skin Appearance) Assessed -Temperature (Abimbola-wound Skin No Abnormality Appearance) (Pt Warm) -Tenderness on Palpation (Abimbola-wound Yes Skin Appearance) -Ulcer Cleansing Soap and Water -Foul Odor after Cleansing No -Anesthetic Used 5% Lidocaine Gel #5scrotum/R Groin Cluster -Current Size (cm) - Length 0.5 -Current Size (cm) - Width 0.3 -Current Size (cm) - Depth 0.1 -Total Square Cm 0.15 -Exudate Amt Small -Exudate Type Serosanguineous -Wound Margin Distinct, Outline Attached -Granulation Amt Large (67-100%) -Granulation Quality Red -Texture (Abimbola-wound Skin Appearance) Assessed -Moisture (Abimbola-wound Skin Appearance) Assessed -Color (Abimbola-wound Skin Appearance) Assessed, Erythema -Temperature (Abimbola-wound Skin No Abnormality Appearance) (Pt Warm) -Tenderness on Palpation (Abimbola-wound Yes Skin Appearance) -Ulcer Cleansing Soap and Water -Anesthetic Used 5% Lidocaine Gel BEKA - Nurse 2 - General Ulcer CM Notes Start: 03/18/23 15:22 Freq: Status: Active Protocol: Activity Type Activity Date Activity User E-sign Co-sign Detail Recorded Client Recorded Date Recorded By Document 03/18/23 16:30 PL [id number] 03/18/23 16:32 PL 03/18/23 16:30 Wound Center Nurse 2 #8 L Ischial Cluster -Time 15:42 -Correct Patient Yes -Correct Side, Site, Position Yes -Correct Procedure Yes -Procedure Performed Yes -Type of Procedure Debridement -Clinical Debridement Subcutaneous -Tissue Removed Subcutaneous -Post Debridement (cm) - Length 2.5 -Post Debridement (cm) - Width 2.6 -Post Debridement (cm) - Depth 0.1 -Total Square (Post) (cm) 6.50 -Area of Debridement (cm) - Length 2.5 -Area of Debridement (cm) - Width 2.6 -Total Square (Area) (cm) 6.50 -Tunneling No -Undermining/Tunneling No -Circular Undermining No -Wound/Ulcer Outcome Not Healed -Ulcer Cleansing Rinsed/ Irrigated with Saline -Foul Odor after Cleansing No -Bioengineered Tissue No -Bleeding Controlled with Pressure -Treatment Response Procedure Tolerated Well -Debridement - Subq, 1st 20sq cm No #5scrotum/R Groin Cluster -Time 15:42 -Correct Patient Yes -Correct Side, Site, Position Yes -Correct Procedure Yes -Procedure Performed Yes -Type of Procedure Debridement -Clinical Debridement Subcutaneous -Tissue Removed Subcutaneous -Post Debridement (cm) - Length 0.5 -Post Debridement (cm) - Width 0.3 -Post Debridement (cm) - Depth 0.1 -Total Square (Post) (cm) 0.15 -Area of Debridement (cm) - Length 0.5 -Area of Debridement (cm) - Width 0.3 -Total Square (Area) (cm) 0.15 -Tunneling No -Undermining/Tunneling No -Circular Undermining No -Wound/Ulcer Outcome Not Healed -Ulcer Cleansing Rinsed/ Irrigated with Saline -Foul Odor after Cleansing No -Bioengineered Tissue No -Bleeding Controlled with Pressure -Treatment Response Procedure Tolerated Well -Debridement - Subq, 1st 20sq cm Yes Pain Scale: 0-10 Numeric Is Patient Pain Free? Yes WC - Nurse 3 - General Ulcer D/C NN Start: 03/18/23 15:22 Freq: Status: Active Protocol: Activity Type Activity Date Activity User E-sign Co-sign Detail Recorded Client Recorded Date Recorded By Document 03/18/23 15:53 KW Desktop 03/18/23 15:54 KW 03/18/23 15:53 Wound Care Center Nurse 3 #8 L Ischial Cluster -Primary Dressing Applied Promogran Jacqueline Matter -Primary Dressing Covered/Secured with Dry Gauze -Promogran Jacqueline Matter 1 #5scrotum/R Groin Cluster -Primary Dressing Covered/Secured with Dry Gauze Pain Scale: 0-10 Numeric Is Patient Pain Free? Yes WC - Visit Discharge Discharge Condition Stable Ambulatory Status Ambulatory Transportation Private Auto Medication Reconcilliation completed & No provided to patient/care provider Clinical Summary of Care Provided Yes Additional Wound Wound debrided: #8 Left ischial/proximal posterior thigh area. Laterality: Left Wound Grade/Stage: 3 Type of Debridement: Excisional debridement Anesthesia Used: 5% Lidocaine Gel Depth: Down to and including healthy tissue and in the subcutaneous layer Percentage of wound debrided: 100 Instrument Used: 3mm curette Tissue Removed: subcutaneous tissue. Severity: Fat Layer Exposed Amount of bleeding with debridement: Mild Bleeding Controlled with: Pressure and Compression and gauze Patient tolerated procedure: Patient tolerated procedure well Assessment/Plan Assessment/Plan (1) Ulcer of right groin with fat layer exposed: CODE(S): L98.492 - Non-pressure chronic ulcer of skin of other sites with fat layer exposed (2) Ulcer of perineum with fat layer exposed: CODE(S): L98.492 - Non-pressure chronic ulcer of skin of other sites with fat layer exposed (3) Skin ulcer of scrotum: CODE(S): N50.89 - Other specified disorders of the male genital organs (4) Pressure sore of left ischium, stage 3: CODE(S): L89.323 - Pressure ulcer of left buttock, stage 3 (5) Chronic ulcer of left thigh with fat layer exposed: CODE(S): L97.122 - Non-pressure chronic ulcer of left thigh with fat layer exposed (6) Suppurative hidradenitis: CODE(S): L73.2 - Hidradenitis suppurativa (7) Diabetes type 2, uncontrolled: CODE(S): E11.65 - Type 2 diabetes mellitus with hyperglycemia QUALIFIERS: Glycemic state: with hyperglycemia Qualified Code(s): E11.65 - Type 2 diabetes mellitus with hyperglycemia (8) Hemoglobin A1c greater than 8.0 percent: CODE(S): R73.09 - Other abnormal glucose (9) Smoker: CODE(S): F17.200 - Nicotine dependence, unspecified, uncomplicated PLAN: Plan Continue Jacqueline to the right groin ulcer and left ischial ulcer. Encouraged increase protein intake and increase Vitamin C intake. Will need supplemental protein to help heal this wound. His last Prealbumin from 04/23/22 was 19.8. Encouraged patient to stop smoking as it may have deleterious effects on wound healing. Before any surgical debridement will obtain a culture. A positive culture will necessitate antibiotic therapy. Patient sees dermatology who is managing the medical portion of his hidradenitis. His next surgery will be excision hidradenitis right perianal and perineal area and left ischial/proximal posterior thigh ulcer and right inguinal ulcer. The ulcers would be skin grafted. The hidradenitis ulcers will be left open and packed with Silver dressings. His Creatinine was 3.07 on 02/18/23. The Potassium was 3.1 on 02/18/23. Hgb was 9.7 on 02/18/23. His Creatinine was 1.56 on 04/23/22. His PCP needs to manage the Creatinine. it needs to be trending downward before proceeding with the surgery. Patient is diabetic. His last HgbA1c was 9.0 on 01/25/23. For elective surgeries, the HgbA1c needs to be less than 8. Follow up one week.
[2023-03-25 14:41] VITALS: BP 168/39; RESP 18; TEMP 14.4
--- NOTE | 2023-03-25 15:12 | PCM.WC.PN ---
History of Present Illness Date of Service: 03/25/23 Chief Complaint: Nonhealing hidradenitis right perineal and perianal areas and nonhealing ulcer right inguinal area and left ischial (proximal posterior thigh) area History of Wound: 57 year old male who has a history significant for hidradenitis, DM type II, HTN, CAD, arterial insufficiency, and smoker. He had surgery on 11/23/21 for 1. Surgical preparation right inguinal area with excision suppurative hidradenitis abscess (112 cm2, and 192 cm2 total). 2. Surgical preparation right scrotum with incision and drainage and excision suppurative hidradenitis abscess (50 cm2, and 192 cm2 total). 3. Surgical preparation right perineal area with excision suppurative hidradenitis abscess (30 cm2, and 192 cm2 total). Operative wound cultures from 11/23/21 positive for Streptococcus constellatus and Corynebacterium striatum. He was placed on Cefdinir and has finished them. Wound care - Jacqueline. Today he denies fevers, chills, nausea and vomiting. He states that he has a good appetite. He's had intermittent hidradenitis flare-ups in his right perineal and perianal areas in the Fall. Recently those areas have been stable. Prealbumin from 04/23/22 was 19.8. Encourage nutritional supplementation with protein to help the healing process. Patient is diabetic. His HgbA1c from 03/01/23 was 8.5. For elective surgeries, the HgbA1c needs to be less than 8. He came to the [facility] on 02/18/23 and was sent to the ED because his systolic BP was 235/99 and he was having visual problems. He was worked up and released home with a change in one of his BP meds (Carvedilol) and stopping one (Clonidine). Progress of Wound: Stable. Objective Data Objective Data Vital Signs: Vital Signs Temp Pulse Resp BP O2 Del Method 58 F L 61 18 168/39 H Room Air 03/25/23 14:41 03/18/23 15:23 03/25/23 14:41 03/25/23 14:41 03/25/23 14:41 Oxygen Delivery Method Room Air Prealbumin from 04/23/22 was 19.8. Encourage nutritional supplementation with protein to help the healing process. Lab / Micro Data Attestation: I reviewed the patient's lab results. Lab results narrative: Patient has diabetes mellitus. His HgbA1c from 03/01/23 was 8.5. For elective surgeries, the HgbA1c needs to be less than 8. Charges/Coding Procedures Integumentary [id number]: [id number] Ayla subq tissue 20 sq cm/< (ICD-10 - L98.492, N50.89, L89.323, L97.122, L73.2, E11.65, R73.09, F17.200) Debridement Note Debridement Note Wound debrided: #5 Right inguinal/scrotal/perineal cluster. Laterality: Right Wound Grade/Stage: 2 Type of Debridement: Excisional debridement Anesthesia Used: 5% Lidocaine Gel Depth: Down to and including healthy tissue and in the subcutaneous layer Percentage of wound debrided: 100 Instrument Used: 3mm curette Tissue Removed: subcutaneous tissue. Severity: Fat Layer Exposed Amount of bleeding with debridement: Mild Bleeding Controlled with: Pressure and Compression and gauze Patient tolerated procedure: Patient tolerated procedure well Post-Debridement Measurements and Additional Note: Post-Debridement Measurements/Treatment - Nurse 1 - General Ulcer Assessment Start: 03/18/23 15:22 Freq: Status: Active Protocol: BEKA.PADMINI Activity Type Activity Date Activity User E-sign Co-sign Detail Recorded Client Recorded Date Recorded By Document 03/18/23 15:23 KW Desktop 03/18/23 15:33 KW Document 03/25/23 14:41 KW Desktop 03/25/23 14:50 KW 03/18/23 03/25/23 15:23 14:41 - Today's Visit Information Type of service Follow-up Visit Follow-up Visit (Physician/KINDERGARTEN ASSISTANT (Physician/KINDERGARTEN ASSISTANT ) ) Arrival Mode Ambulatory Ambulatory Accompanied by Patient Identification Verified (Name & Yes Yes ) Vital Signs Temperature (97.8 F-99.1 F) 98.6 F 58 F L Temperature Source Temporal Temporal Pulse Rate (60-100) 61 Pulse Location Monitor Monitor Respiratory Rate (12-18) 18 18 Respiratory rate source Observation Observation Oxygen Delivery Method Room Air Room Air Blood Pressure (90/60-120/80) 112/43 L 168/39 H Blood Pressure Mean (mm Hg) 66 82 Source Monitor Monitor Position Semi-Fowlers Sitting Blood Pressure Location Left Arm Left Arm History Since Last Visit- (Skip if this is Patient's initial visit) Have you changed medications since your No No last visit? Any new allergies or adverse reactions No No Had a fall/change in ADL's that may No No increase risk of falls Signs or symptoms of abuse and/or No No neglect since last visit Have you been in the hospital since your No No last visit? Has dressing in place as prescribed Yes Yes Has compression in place as prescribed N/A N/A Has offloadiing in place as prescribed N/A N/A Experienced any changes in pain level or No No management Left Footwear Regular Shoe Regular Shoe Right Footwear Regular Shoe Regular Shoe Pain Scale: 0-10 Numeric Is Patient Pain Free? Yes Yes WC - Nurse 1 - General Ulcer Measurement Start: 03/18/23 15:22 Freq: Status: Active Protocol: Activity Type Activity Date Activity User E-sign Co-sign Detail Recorded Client Recorded Date Recorded By Document 03/18/23 15:23 KW Desktop 03/18/23 15:33 KW Document 03/25/23 14:41 KW Desktop 03/25/23 14:50 KW 03/18/23 03/25/23 15:23 14:41 Wound Center Nurse 1 #8 L Ischial Cluster -Current Size (cm) - Length 2.5 0.2 -Current Size (cm) - Width 2.6 3 -Current Size (cm) - Depth 0.1 0.1 -Total Square Cm 6.50 0.6 -Date of Last Picture (Recall this 03/25/23 field) -Photo Taken Yes -Exudate Amt Small Large -Exudate Type Serosanguineous Purulent -Wound Margin Distinct, Distinct, Outline Outline Attached Attached -Granulation Amt Large (67-100%) Small (1-33%) -Granulation Quality [place] Red -Necrosis Amt Small (1-33%) Large (67-100%) -Necrotic Tissue Type Adherent Slough Adherent Slough -Texture ([place]imbola-wound Skin Appearance) Assessed Assessed -Moisture ([place]imbola-wound Skin Appearance) Assessed Assessed -Color ([place]imbola-wound Skin Appearance) Assessed Assessed -Temperature ([place]ola-wound Skin No Abnormality No Abnormality Appearance) (Pt Warm) (Pt Warm) -Tenderness on Palpation ([place]imbola-wound Yes Skin Appearance) -Ulcer Cleansing Soap and Water Rinsed/ Irrigated with Saline -Foul Odor after Cleansing No -Anesthetic Used 5% Lidocaine 5% Lidocaine Gel Gel #5scrotum/R Groin Cluster -Current Size (cm) - Length 0.5 3.4 -Current Size (cm) - Width 0.3 1 -Current Size (cm) - Depth 0.1 0.2 -Total Square Cm 0.15 3.4 -Date of Last Picture (Recall this 03/25/23 field) -Photo Taken Yes -Exudate Amt Small Medium -Exudate Type Serosanguineous Serosanguineous -Wound Margin Distinct, Distinct, Outline Outline Attached Attached -Granulation Amt Large (67-100%) Large (67-100%) -Granulation Quality Red Red -Texture ([place]imbola-wound Skin Appearance) Assessed Assessed -Moisture ([place]imbola-wound Skin Appearance) Assessed Assessed -Color ([place]imbola-wound Skin Appearance) Assessed, Assessed Erythema -Temperature ([place]imbola-wound Skin No Abnormality No Abnormality Appearance) (Pt Warm) (Pt Warm) -Tenderness on Palpation ([place]imbola-wound Yes Skin Appearance) -Ulcer Cleansing Soap and Water Rinsed/ Irrigated with Saline -Anesthetic Used 5% Lidocaine 5% Lidocaine Gel Gel WC - Nurse 2 - General Ulcer CM Notes Start: 03/18/23 15:22 Freq: Status: Active Protocol: Activity Type Activity Date Activity User E-sign Co-sign Detail Recorded Client Recorded Date Recorded By Document 03/18/23 16:30 PL [id number] 03/18/23 16:32 PL Document 03/25/23 14:56 Laptop 03/25/23 15:02 03/18/23 03/25/23 16:30 14:56 Wound Center Nurse 2 #8 L Ischial Cluster -Time 15:42 14:58 -Correct Patient Yes Yes -Correct Side, Site, Position Yes Yes -Correct Procedure Yes Yes -Procedure Performed Yes Yes -Type of Procedure Debridement Debridement -Clinical Debridement Subcutaneous Subcutaneous -Tissue Removed Subcutaneous Subcutaneous -Post Debridement (cm) - Length 2.5 0.3 -Post Debridement (cm) - Width 2.6 3.0 -Post Debridement (cm) - Depth 0.1 0.1 -Total Square (Post) (cm) 6.50 0.90 -Area of Debridement (cm) - Length 2.5 0.3 -Area of Debridement (cm) - Width 2.6 3.0 -Total Square (Area) (cm) 6.50 0.90 -Tunneling No No -Undermining/Tunneling No No -Circular Undermining No No -Wound/Ulcer Outcome Not Healed Not Healed -Ulcer Cleansing Rinsed/ Rinsed/ Irrigated with Irrigated with Saline Saline -Foul Odor after Cleansing No No -Bioengineered Tissue No No -Bleeding Controlled with Pressure Pressure -Treatment Response Procedure Procedure Tolerated Well Tolerated Well -Offloading No -Debridement - Subq, 1st 20sq cm No No #5scrotum/R Groin Cluster -Time 15:42 14:57 -Correct Patient Yes Yes -Correct Side, Site, Position Yes Yes -Correct Procedure Yes Yes -Procedure Performed Yes Yes -Type of Procedure Debridement Debridement -Clinical Debridement Subcutaneous Subcutaneous -Tissue Removed Subcutaneous Subcutaneous -Post Debridement (cm) - Length 0.5 3.5 -Post Debridement (cm) - Width 0.3 1 -Post Debridement (cm) - Depth 0.1 0.2 -Total Square (Post) (cm) 0.15 3.5 -Area of Debridement (cm) - Length 0.5 3.5 -Area of Debridement (cm) - Width 0.3 1.0 -Total Square (Area) (cm) 0.15 3.50 -Tunneling No No -Undermining/Tunneling No No -Circular Undermining No No -Wound/Ulcer Outcome Not Healed Not Healed -Ulcer Cleansing Rinsed/ Rinsed/ Irrigated with Irrigated with Saline Saline -Foul Odor after Cleansing No No -Bioengineered Tissue No No -Bleeding Controlled with Pressure Pressure -Treatment Response Procedure Procedure Tolerated Well Tolerated Well -Offloading No -Debridement - Subq, 1st 20sq cm Yes Yes Pain Scale: 0-10 Numeric Is Patient Pain Free? Yes Yes WC - Nurse 3 - General Ulcer D/C NN Start: 03/18/23 15:22 Freq: Status: Active Protocol: Activity Type Activity Date Activity User E-sign Co-sign Detail Recorded Client Recorded Date Recorded By Document 03/18/23 15:53 KW Desktop 03/18/23 15:54 KW Document 03/25/23 15:09 BM Desktop 03/25/23 15:10 BMF 03/18/23 03/25/23 15:53 15:09 Wound Care Center Nurse 3 #8 L Ischial Cluster -Ulcer Cleansing Rinsed/ Irrigated with Saline -Foul Odor after Cleansing No -Primary Dressing Applied Promogran Promogran Jacqueline Matter Jacqueline Matter -Other Dressing ABD, SECURED W/ COBAN; DRSG PER DL FLATCAR WHACKER -Primary Dressing Covered/Secured with Dry Gauze -Promogran Jacqueline Matter 1 1 #5scrotum/R Groin Cluster -Ulcer Cleansing Rinsed/ Irrigated with Saline -Foul Odor after Cleansing No -Primary Dressing Applied Promogran Jacqueline Matter -Other Dressing ABD; SECURED W/ COBAN; DRSG PER DL FLATCAR WHACKER -Primary Dressing Covered/Secured with Dry Gauze -Promogran Jacqueline Matter 0 Treatment Response Procedure Tolerated Well Pain Scale: 0-10 Numeric Is Patient Pain Free? Yes Yes WC - Visit Discharge Discharge Condition Stable Stable Ambulatory Status Ambulatory Ambulatory Transportation Private Auto Private Auto Accompanied by Medication Reconcilliation completed & No provided to patient/care provider Clinical Summary of Care Provided Yes Additional Wound Wound debrided: #8 Left ischial/proximal posterior thigh area. Laterality: Left Wound Grade/Stage: 3 Type of Debridement: Excisional debridement Anesthesia Used: 5% Lidocaine Gel Depth: Down to and including healthy tissue and in the subcutaneous layer Percentage of wound debrided: 100 Instrument Used: 3mm curette Tissue Removed: subcutaneous tissue. Severity: Fat Layer Exposed Amount of bleeding with debridement: Mild Bleeding Controlled with: Pressure and Compression and gauze Patient tolerated procedure: Patient tolerated procedure well Assessment/Plan Assessment/Plan (1) Ulcer of right groin with fat layer exposed: CODE(S): L98.492 - Non-pressure chronic ulcer of skin of other sites with fat layer exposed (2) Ulcer of perineum with fat layer exposed: CODE(S): L98.492 - Non-pressure chronic ulcer of skin of other sites with fat layer exposed (3) Skin ulcer of scrotum: CODE(S): N50.89 - Other specified disorders of the male genital organs (4) Pressure sore of left ischium, stage 3: CODE(S): L89.323 - Pressure ulcer of left buttock, stage 3 (5) Chronic ulcer of left thigh with fat layer exposed: CODE(S): L97.122 - Non-pressure chronic ulcer of left thigh with fat layer exposed (6) Suppurative hidradenitis: CODE(S): L73.2 - Hidradenitis suppurativa (7) Diabetes type 2, uncontrolled: CODE(S): E11.65 - Type 2 diabetes mellitus with hyperglycemia QUALIFIERS: Glycemic state: with hyperglycemia Qualified Code(s): E11.65 - Type 2 diabetes mellitus with hyperglycemia (8) Hemoglobin A1c greater than 8.0 percent: CODE(S): R73.09 - Other abnormal glucose (9) Smoker: CODE(S): F17.200 - Nicotine dependence, unspecified, uncomplicated PLAN: Plan Continue Jacqueline to the right groin ulcer and left ischial ulcer. Encouraged increase protein intake and increase Vitamin C intake. Will need supplemental protein to help heal this wound. His last Prealbumin from 04/23/22 was 19.8. Encouraged patient to stop smoking as it may have deleterious effects on wound healing. Before any surgical debridement will obtain a culture. A positive culture will necessitate antibiotic therapy. Patient sees dermatology who is managing the medical portion of his hidradenitis. His next surgery will be excision hidradenitis right perianal and perineal area and left ischial/proximal posterior thigh ulcer and right inguinal ulcer. The ulcers would be skin grafted. The hidradenitis ulcers will be left open and packed with Silver dressings. His Creatinine was 3.07 on 02/18/23. The Potassium was 3.1 on 02/18/23. Hgb was 9.7 on 02/18/23. His Creatinine was 1.56 on 04/23/22. Since then it has ranged from a low of 2.38 on 10/09/22 to a high of 3.65 on 02/13/23. His PCP is managing the Creatinine. It needs to be trending downward before proceeding with the surgery. Patient is diabetic. His last HgbA1c was 8.5 on 03/01/23. For elective surgeries, the HgbA1c needs to be less than 8. Follow up one week.
[2023-04-01 14:53] VITALS: BP 145/32; PULSE 58; RESP 18; TEMP 36.3
--- NOTE | 2023-04-01 15:16 | PCM.WC.PN ---
History of Present Illness Date of Service: 04/01/23 Chief Complaint: Nonhealing hidradenitis right perineal and perianal areas and nonhealing ulcer right inguinal area and left ischial (proximal posterior thigh) area History of Wound: 57 year old male who has a history significant for hidradenitis, DM type II, HTN, CAD, arterial insufficiency, and smoker. He had surgery on 11/23/21 for 1. Surgical preparation right inguinal area with excision suppurative hidradenitis abscess (112 cm2, and 192 cm2 total). 2. Surgical preparation right scrotum with incision and drainage and excision suppurative hidradenitis abscess (50 cm2, and 192 cm2 total). 3. Surgical preparation right perineal area with excision suppurative hidradenitis abscess (30 cm2, and 192 cm2 total). Operative wound cultures from 11/23/21 positive for Streptococcus constellatus and Corynebacterium striatum. He was placed on Cefdinir and has finished them. Wound care - Jacqueline. Today he denies fevers, chills, nausea and vomiting. He states that he has a good appetite. He is having increased pain in the left ischial (proximal posterior thigh) ulcer. He's had intermittent hidradenitis flare-ups in his right perineal and perianal areas in the Fall. Recently those areas have been stable. Prealbumin from 04/23/22 was 19.8. Encourage nutritional supplementation with protein to help the healing process. Patient is diabetic. His HgbA1c from 03/01/23 was 8.5. For elective surgeries, the HgbA1c needs to be less than 8. He came to [facility] on [facility]/18[facility]23 and was sent to the ED because his systolic BP was 235/99 and he was having visual problems. He was worked up and released home with a change in one of his BP meds (Carvedilol) and stopping one (Clonidine). His next appointment with the [facility] is in April. Progress of Wound: The right inguinal ulcer has healed. The left ischial (proximal posterior thigh) ulcer has increased pain. Objective Data Objective Data Vital Signs: Vital Signs Temp Pulse Resp BP O2 Del Method 97.4 F L 58 L 18 145/32 H Room Air 04/01/23 14:53 04/01/23 14:53 04/01/23 14:53 04/01/23 14:53 04/01/23 14:53 Oxygen Delivery Method Room Air Prealbumin from 04/23/22 was 19.8. Encourage nutritional supplementation with protein to help the healing process. Lab / Micro Data Attestation: I reviewed the patient's lab results. Lab results narrative: Patient has diabetes mellitus. His HgbA1c from 03/01/23 was 8.5. For elective surgeries, the HgbA1c needs to be less than 8. Charges/Coding Procedures Integumentary [id number]: 48180 Ayla subq tissue 20 sq cm/< (ICD-10 - L98.492, N50.89, L89.323, L97.122, L73.2, E11.65, R73.09, F17.200) Debridement Note Debridement Note Wound debrided: #5 Right inguinal/scrotal/perineal cluster. Laterality: Right Wound Grade/Stage: 2 No debridement was completed: No debridement was completed today (The ulcer has healed.) Post-Debridement Measurements and Additional Note: Post-Debridement Measurements/Treatment - Nurse 1 - General Ulcer Assessment Start: 03/18/23 15:22 Freq: Status: Active Protocol: [email or web address] Activity Type Activity Date Activity User E-sign Co-sign Detail Recorded Client Recorded Date Recorded By Document 03/18/23 15:23 KW Desktop 03/18/23 15:33 KW Document 03/25/23 14:41 KW Desktop 03/25/23 14:50 KW Document 04/01/23 14:53 KW Desktop 04/01/23 14:57 KW 03/18/23 03/25/23 04/01/23 15:23 14:41 14:53 - Today's Visit Information Type of service Follow-up Visit Follow-up Visit Follow-up Visit (Physician/[employer]ICER (Physician/[employer]ILRO[employer] POLICE OFFICER (Physician/[employer]IL[employer]ICE OFFICER ) ) ) Arrival Mode Ambulatory Ambulatory Ambulatory Accompanied by Patient Identification Verified (Name & Yes Yes Yes ) Vital Signs Temperature (97.8 F-99.1 F) 98.6 F 58 F L 97.4 F L Temperature Source Temporal Temporal Oral Pulse Rate (60-100) 61 58 L Pulse Location Monitor Monitor Monitor Respiratory Rate (12-18) 18 18 18 Respiratory rate source Observation Observation Observation Oxygen Delivery Method Room Air Room Air Room Air Blood Pressure (90/60-120/80) 112/43 L 168/39 H 145/32 H Blood Pressure Mean (mm Hg) 66 82 69 Source Monitor Monitor Monitor Position Semi-Fowlers Sitting Right Lateral Blood Pressure Location Left Arm Left Arm Left Arm History Since Last Visit- (Skip if this is Patient's initial visit) Have you changed medications since your No No No last visit? Any new allergies or adverse reactions No No No Had a fall/change in ADL's that may No No No increase risk of falls Signs or symptoms of abuse and/or No No No neglect since last visit Have you been in the hospital since your No No No last visit? Has dressing in place as prescribed Yes Yes Yes Has compression in place as prescribed N/A N/A N/A Has offloadiing in place as prescribed N/A N/A N/A Experienced any changes in pain level or No No No management Left Footwear Regular Shoe Regular Shoe Regular Shoe Right Footwear Regular Shoe Regular Shoe Regular Shoe Pain Scale: 0-10 Numeric Is Patient Pain Free? Yes Yes Yes WC - Nurse 1 - General Ulcer Measurement Start: 03/18/23 15:22 Freq: Status: Active Protocol: Activity Type Activity Date Activity User E-sign Co-sign Detail Recorded Client Recorded Date Recorded By Document 03/18/23 15:23 KW Desktop 03/18/23 15:33 KW Document 03/25/23 14:41 KW Desktop 03/25/23 14:50 KW Document 04/01/23 14:53 KW Desktop 04/01/23 14:57 KW 03/18/23 03/25/23 04/01/23 15:23 14:41 14:53 Wound Center Nurse 1 #5scrotum/R Groin Cluster -Current Size (cm) - Length 0.5 3.4 0.1 -Current Size (cm) - Width 0.3 1 0.1 -Current Size (cm) - Depth 0.1 0.2 0.1 -Total Square Cm 0.15 3.4 0.01 -Date of Last Picture (Recall this 03/25/23 field) -Photo Taken Yes -Exudate Amt Small Medium Small -Exudate Type Serosanguineous Serosanguineous Serosanguineous -Wound Margin Distinct, Distinct, Distinct, Outline Outline Outline Attached Attached Attached -Granulation Amt Large (67-100%) Large (67-100%) Large (67-100%) -Granulation Quality Red Red Red -Texture ([place]-wound Skin Appearance) Assessed Assessed Assessed -Moisture ([place]-wound Skin Appearance) Assessed Assessed Assessed -Color ([place]-wound Skin Appearance) Assessed, Assessed Assessed Erythema -Temperature ([place]-wound Skin No Abnormality No Abnormality No Abnormality Appearance) (Pt Warm) (Pt Warm) (Pt Warm) -Tenderness on Palpation ([place]-wound Yes Skin Appearance) -Ulcer Cleansing Soap and Water Rinsed/ Soap and Water Irrigated with Saline -Anesthetic Used 5% Lidocaine 5% Lidocaine 5% Lidocaine Gel Gel Gel #8 L Ischial Cluster -Current Size (cm) - Length 2.5 0.2 2.3 -Current Size (cm) - Width 2.6 3 4.5 -Current Size (cm) - Depth 0.1 0.1 0.1 -Total Square Cm 6.50 0.6 10.35 -Date of Last Picture (Recall this 03/25/23 field) -Photo Taken Yes -Exudate Amt Small Large Large -Exudate Type Serosanguineous Purulent Yellow/Green -Wound Margin Distinct, Distinct, Distinct, Outline Outline Outline Attached Attached Attached -Granulation Amt Large (67-100%) Small (1-33%) Large (67-100%) -Granulation Quality [place] Red Red -Necrosis Amt Small (1-33%) Large (67-100%) Small (1-33%) -Necrotic Tissue Type Adherent Slough Adherent Slough Adherent Slough -Texture ([place]-wound Skin Appearance) Assessed Assessed Assessed -Moisture ([place]-wound Skin Appearance) Assessed Assessed Assessed -Color ([place]-wound Skin Appearance) Assessed Assessed Assessed -Temperature ([place]-wound Skin No Abnormality No Abnormality No Abnormality Appearance) (Pt Warm) (Pt Warm) (Pt Warm) -Tenderness on Palpation ([place]-wound Yes Skin Appearance) -Ulcer Cleansing Soap and Water Rinsed/ Soap and Water Irrigated with Saline -Foul Odor after Cleansing No -Anesthetic Used 5% Lidocaine 5% Lidocaine 5% Lidocaine Gel Gel Gel WC - Nurse 2 - General Ulcer CM Notes Start: 03/18/23 15:22 Freq: Status: Active Protocol: Activity Type Activity Date Activity User E-sign Co-sign Detail Recorded Client Recorded Date Recorded By Document 03/18/23 16:30 PL [id number] 03/18/23 16:32 PL Document 03/25/23 14:56 Laptop 03/25/23 15:02 Document 04/01/23 15:11 Laptop 04/01/23 15:13 03/18/23 03/25/23 04/01/23 16:30 14:56 15:11 Wound Center Nurse 2 #5scrotum/R Groin Cluster -Time 15:42 14:57 -Correct Patient Yes Yes No -Correct Side, Site, Position Yes Yes No -Correct Procedure Yes Yes No -Procedure Performed Yes Yes No -Type of Procedure Debridement Debridement -Clinical Debridement Subcutaneous Subcutaneous -Tissue Removed Subcutaneous Subcutaneous -Post Debridement (cm) - Length 0.5 3.5 0 -Post Debridement (cm) - Width 0.3 1 0 -Post Debridement (cm) - Depth 0.1 0.2 0 -Total Square (Post) (cm) 0.15 3.5 0 -Area of Debridement (cm) - Length 0.5 3.5 0 -Area of Debridement (cm) - Width 0.3 1.0 0 -Total Square (Area) (cm) 0.15 3.50 0 -Tunneling No No -Undermining/Tunneling No No -Circular Undermining No No -Wound/Ulcer Outcome Not Healed Not Healed Healed- Epithelialized -Ulcer Cleansing Rinsed/ Rinsed/ Irrigated with Irrigated with Saline Saline -Foul Odor after Cleansing No No -Bioengineered Tissue No No -Bleeding Controlled with Pressure Pressure -Treatment Response Procedure Procedure Tolerated Well Tolerated Well -Offloading No -Debridement - Subq, 1st 20sq cm Yes Yes #8 L Ischial Cluster -Time 15:42 14:58 15:11 -Correct Patient Yes Yes Yes -Correct Side, Site, Position Yes Yes Yes -Correct Procedure Yes Yes Yes -Procedure Performed Yes Yes Yes -Type of Procedure Debridement Debridement Debridement -Clinical Debridement Subcutaneous Subcutaneous Subcutaneous -Tissue Removed Subcutaneous Subcutaneous Subcutaneous -Post Debridement (cm) - Length 2.5 0.3 3.0 -Post Debridement (cm) - Width 2.6 3.0 4.5 -Post Debridement (cm) - Depth 0.1 0.1 0.1 -Total Square (Post) (cm) 6.50 0.90 13.50 -Area of Debridement (cm) - Length 2.5 0.3 3.0 -Area of Debridement (cm) - Width 2.6 3.0 4.5 -Total Square (Area) (cm) 6.50 0.90 13.50 -Tunneling No No No -Undermining/Tunneling No No No -Circular Undermining No No No -Wound/Ulcer Outcome Not Healed Not Healed Not Healed -Ulcer Cleansing Rinsed/ Rinsed/ Rinsed/ Irrigated with Irrigated with Irrigated with Saline Saline Saline -Foul Odor after Cleansing No No No -Bioengineered Tissue No No No -Bleeding Controlled with Pressure Pressure Pressure -Treatment Response Procedure Procedure Procedure Tolerated Well Tolerated Well Tolerated Well -Offloading No No -Debridement - Subq, 1st 20sq cm No No Yes Pain Scale: 0-10 Numeric Is Patient Pain Free? Yes Yes Yes - Nurse 3 - General Ulcer D/C NN Start: 03/18/23 15:22 Freq: Status: Active Protocol: Activity Type Activity Date Activity User E-sign Co-sign Detail Recorded Client Recorded Date Recorded By Document 03/18/23 15:53 Desktop 03/18/23 15:54 KW Document 03/25/23 15:09 [facility] Desktop 03/25/23 15:10 F 03/18/23 03/25/23 15:53 15:09 Wound Care Center Nurse 3 #5scrotum/R Groin Cluster -Ulcer Cleansing Rinsed/ Irrigated with Saline -Foul Odor after Cleansing No -Primary Dressing Applied Promogran Jacqueline Matter -Other Dressing ABD; SECURED W/ [place]; DRSG PER [employer] DEAN -Primary Dressing Covered/Secured with Dry Gauze -Promogran Jacqueline Matter 0 #8 L Ischial Cluster -Ulcer Cleansing Rinsed/ Irrigated with Saline -Foul Odor after Cleansing No -Primary Dressing Applied Promogran Promogran Jacqueline Matter Jacqueline Matter -Other Dressing ABD, SECURED W/ [place]; DRSG PER [employer] DEAN -Primary Dressing Covered/Secured with Dry Gauze -Promogran Jacqueline Matter 1 1 Treatment Response Procedure Tolerated Well Pain Scale: 0-10 Numeric Is Patient Pain Free? Yes Yes - Visit Discharge Discharge Condition Stable Stable Ambulatory Status Ambulatory Ambulatory Transportation Private Auto Private Auto Accompanied by Medication Reconcilliation completed & No provided to patient/care provider Clinical Summary of Care Provided Yes Additional Wound Wound debrided: #8 Left ischial/proximal posterior thigh area. Laterality: Left Wound Grade/Stage: 3 Type of Debridement: Excisional debridement Anesthesia Used: 5% Lidocaine Gel Depth: Down to and including healthy tissue and in the subcutaneous layer Percentage of wound debrided: 100 Instrument Used: 3mm curette Tissue Removed: subcutaneous tissue. Severity: Fat Layer Exposed Amount of bleeding with debridement: Mild Bleeding Controlled with: Pressure and Compression and gauze Patient tolerated procedure: Patient did not tolerate procedure well (he had increased pain with the debridement today. A wound culture was obtained today.) Assessment/Plan Assessment/Plan (1) Ulcer of right groin with fat layer exposed: CODE(S): L98.492 - Non-pressure chronic ulcer of skin of other sites with fat layer exposed (2) Ulcer of perineum with fat layer exposed: CODE(S): L98.492 - Non-pressure chronic ulcer of skin of other sites with fat layer exposed (3) Skin ulcer of scrotum: CODE(S): N50.89 - Other specified disorders of the male genital organs (4) Pressure sore of left ischium, stage 3: CODE(S): L89.323 - Pressure ulcer of left buttock, stage 3 (5) Chronic ulcer of left thigh with fat layer exposed: CODE(S): L97.122 - Non-pressure chronic ulcer of left thigh with fat layer exposed (6) Suppurative hidradenitis: CODE(S): L73.2 - Hidradenitis suppurativa (7) Diabetes type 2, uncontrolled: CODE(S): E11.65 - Type 2 diabetes mellitus with hyperglycemia QUALIFIERS: Glycemic state: with hyperglycemia Qualified Code(s): E11.65 - Type 2 diabetes mellitus with hyperglycemia (8) Hemoglobin A1c greater than 8.0 percent: CODE(S): R73.09 - Other abnormal glucose (9) Smoker: CODE(S): F17.200 - Nicotine dependence, unspecified, uncomplicated PLAN: Plan Continue Jacqueline to the right groin ulcer and left ischial ulcer. The right groin ulcer has healed. He will continue with dry gauze in the area to minimize moisture buildup which can cause re-ulceration. He will do this for a couple of weeks until the scar has strengthened. Encouraged increase protein intake and increase Vitamin C intake. Will need supplemental protein to help heal this wound. His last Prealbumin from 04/23/22 was 19.8. Encouraged patient to stop smoking as it may have deleterious effects on wound healing. Before any surgical debridement will obtain a culture. A positive culture will necessitate antibiotic therapy. Patient sees dermatology who is managing the medical portion of his hidradenitis. His next surgery will be excision hidradenitis right perianal and perineal area and left ischial/proximal posterior thigh ulcer and right inguinal ulcer. The ulcers would be skin grafted. The hidradenitis ulcers will be left open and packed with Silver dressings. His Creatinine was 3.07 on 02/18/23. The Potassium was 3.1 on 02/18/23. Hgb was 9.7 on 02/18/23. His Creatinine was 1.56 on 04/23/22. Since then it has ranged from a low of 2.38 on 10/09/22 to a high of 3.65 on 02/13/23. His PCP is managing the Creatinine. It needs to be trending downward before proceeding with the surgery. Patient is diabetic. His last HgbA1c was 8.5 on 03/01/23. For elective surgeries, the HgbA1c needs to be less than 8. Because the left ischial (proximal posterior thigh) ulcer has increased pain, a wound culture was obtained today. A positive culture will necessitate antibiotic therapy. If pain continues, may go to [place] which is a little messier but can help to decrease the pain. Follow up one week.
[2023-04-08 14:41] VITALS: RESP 18
--- NOTE | 2023-04-08 15:02 | PN.PCM_ITS ---
History of Present Illness Date of Service: 04/08/23 Chief Complaint: Nonhealing hidradenitis right perineal and perianal areas and nonhealing ulcer left ischial (proximal posterior thigh) area History of Wound: 57 year old male who has a history significant for hidradenitis, DM type II, HTN, CAD, arterial insufficiency, and smoker. He had surgery on 11/23/21 for 1. Surgical preparation right inguinal area with excision suppurative hidradenitis abscess (112 cm2, and 192 cm2 total). 2. Surgical preparation right scrotum with incision and drainage and excision suppurative hidradenitis abscess (50 cm2, and 192 cm2 total). 3. Surgical preparation right perineal area with excision suppurative hidradenitis abscess (30 cm2, and 192 cm2 total). Operative wound cultures from 11/23/21 positive for Streptococcus constellatus and Corynebacterium striatum. He was placed on Cefdinir and has finished them. A wound culture was obtained on 04/01/23. It was positive for Klebsiella aerogenes, Staphylococcus aureus, and Anaerobic cocci. He was started on Doxycycline and Flagyl. When the Flagyl is done, will start Levaquin. However, he had stomach issues when on the Doxycycline. Wound care - Jacqueline. Today he denies fevers, chills, nausea and vomiting. He states that he has a good appetite. The pain in the left ischial (proximal posterior thigh) ulcer has improved. He's had intermittent hidradenitis flare-ups in his right perineal and perianal areas in the Fall. Recently those areas have been stable. Prealbumin from 04/23/22 was 19.8. Encourage nutritional supplementation with protein to help the healing process. Patient is diabetic. His HgbA1c from 03/01/23 was 8.5. For elective surgeries, the HgbA1c needs to be less than 8. He came to the [facility] on 02/18/23 and was sent to the ED because his systolic BP was 235/99 and he was having visual problems. He was worked up and released home with a change in one of his BP meds (Carvedilol) and stopping one (Clonidine). His next appointment with the Income Tax Return Preparer is in April. Progress of Wound: The left ischial (proximal posterior thigh) ulcer has less pain and better granulation tissue. Objective Data Objective Data Vital Signs: Vital Signs Temp Pulse Resp BP O2 Del Method 97.4 F L 58 L 18 145/32 H Room Air 04/01/23 14:53 04/01/23 14:53 04/08/23 14:41 04/01/23 14:53 04/08/23 14:41 Oxygen Delivery Method Room Air Prealbumin from 04/23/22 was 19.8. Encourage nutritional supplementation with protein to help the healing process. Lab / Micro Data Attestation: I reviewed the patient's lab results. Lab results narrative: Patient has diabetes mellitus. His HgbA1c from 03/01/23 was 8.5. For elective surgeries, the HgbA1c needs to be less than 8. Micro: Microbiology 04/01/23 15:10 Wound - Ischium Gram Stain - Final 04/01/23 15:10 Wound - Ischium Wound Culture - Final Klebsiella aerogenes Staphylococcus aureus 04/01/23 15:10 Wound - Ischium Anaerobic Culture - Final Anaerobic cocci He was started on Doxycycline and Flagyl. When the Flagyl is finished after 10 days, will start the Levaquin. However, he had stomach issues with the Doxycycline. Will stop the Doxycycline. The Levaquin should cover the Staphylococcus aureus. At the present time, he will continue the Flagyl and the Levaquin. Charges/Coding Procedures Integumentary [id number]: [id number] Ayla subq tissue 20 sq cm/< (ICD-10 - L98.492, N50.89, L89.323, L97.122, L73.2, E11.65, R73.09, F17.200) Debridement Note Debridement Note Wound debrided: #8 Left ischial/proximal posterior thigh area. Laterality: Left Wound Grade/Stage: 3. Type of Debridement: Excisional debridement Anesthesia Used: 5% Lidocaine Gel Depth: Down to and including healthy tissue and in the subcutaneous layer Percentage of wound debrided: 100 Instrument Used: 3mm curette Tissue Removed: subcutaneous tissue. Severity: Fat Layer Exposed Amount of bleeding with debridement: Mild Bleeding Controlled with: Pressure and Compression and gauze Patient tolerated procedure: Patient tolerated procedure well Post-Debridement Measurements and Additional Note: Post-Debridement Measurements/Treatment WC - Nurse 1 - General Ulcer Assessment Start: 03/18/23 15:22 Freq: Status: Active Protocol: WC.LOWEXT Activity Type Activity Date Activity User E-sign Co-sign Detail Recorded Client Recorded Date Recorded By Document 03/18/23 15:23 KW Desktop 03/18/23 15:33 KW Document 03/25/23 14:41 KW Desktop 03/25/23 14:50 KW Document 04/01/23 14:53 KW Desktop 04/01/23 14:57 KW Document 04/08/23 14:41 KW Desktop 04/08/23 14:45 KW 03/18/23 03/25/23 04/01/23 15:23 14:41 14:53 - Today's Visit Information Type of service Follow-up Visit Follow-up Visit Follow-up Visit (Physician/CERTIFIED SURGICAL TECHNOLOGIST (Physician/CERTIFIED SURGICAL TECHNOLOGIST (Physician/CERTIFIED SURGICAL TECHNOLOGIST ) ) ) Arrival Mode Ambulatory Ambulatory Ambulatory Accompanied by Patient Identification Verified (Name & Yes Yes Yes ) Vital Signs Temperature (97.8 F-99.1 F) 98.6 F 58 F L 97.4 F L Temperature Source Temporal Temporal Oral Pulse Rate (60-100) 61 58 L Pulse Location Monitor Monitor Monitor Respiratory Rate (12-18) 18 18 18 Respiratory rate source Observation Observation Observation Oxygen Delivery Method Room Air Room Air Room Air Blood Pressure (90/60-120/80) 112/43 L 168/39 H 145/32 H Blood Pressure Mean (mm Hg) 66 82 69 Source Monitor Monitor Monitor Position Semi-Fowlers Sitting Right Lateral Blood Pressure Location Left Arm Left Arm Left Arm History Since Last Visit- (Skip if this is Patient's initial visit) Have you changed medications since your No No No last visit? Any new allergies or adverse reactions No No No Had a fall/change in ADL's that may No No No increase risk of falls Signs or symptoms of abuse and/or No No No neglect since last visit Have you been in the hospital since your No No No last visit? Has dressing in place as prescribed Yes Yes Yes Has compression in place as prescribed N/A N/A N/A Has offloadiing in place as prescribed N/A N/A N/A Experienced any changes in pain level or No No No management Left Footwear Regular Shoe Regular Shoe Regular Shoe Right Footwear Regular Shoe Regular Shoe Regular Shoe Pain Scale: 0-10 Numeric Is Patient Pain Free? Yes Yes Yes 04/08/23 14:41 - Today's Visit Information Type of service Follow-up Visit (Physician/CERTIFIED SURGICAL TECHNOLOGIST ) Arrival Mode Ambulatory Accompanied by Patient Identification Verified (Name & Yes ) Vital Signs Temperature (97.8 F-99.1 F) Temperature Source Pulse Rate (60-100) Pulse Location Respiratory Rate (12-18) 18 Respiratory rate source Observation Oxygen Delivery Method Room Air Blood Pressure (90/60-120/80) Blood Pressure Mean (mm Hg) Source Position Blood Pressure Location History Since Last Visit- (Skip if this is Patient's initial visit) Have you changed medications since your No last visit? Any new allergies or adverse reactions No Had a fall/change in ADL's that may No increase risk of falls Signs or symptoms of abuse and/or No neglect since last visit Have you been in the hospital since your No last visit? Has dressing in place as prescribed Yes Has compression in place as prescribed N/A Has offloadiing in place as prescribed N/A Experienced any changes in pain level or No management Left Footwear Regular Shoe Right Footwear Regular Shoe Pain Scale: 0-10 Numeric Is Patient Pain Free? Yes - Nurse 1 - General Ulcer Measurement Start: 03/18/23 15:22 Freq: Status: Active Protocol: Activity Type Activity Date Activity User E-sign Co-sign Detail Recorded Client Recorded Date Recorded By Document 03/18/23 15:23 KW Desktop 03/18/23 15:33 KW Document 03/25/23 14:41 KW Desktop 03/25/23 14:50 KW Document 04/01/23 14:53 KW Desktop 04/01/23 14:57 KW Document 04/08/23 14:41 KW Desktop 04/08/23 14:45 KW 03/18/23 03/25/23 04/01/23 15:23 14:41 14:53 Wound Center Nurse 1 #5scrotum/R Groin Cluster -Current Size (cm) - Length 0.5 3.4 0.1 -Current Size (cm) - Width 0.3 1 0.1 -Current Size (cm) - Depth 0.1 0.2 0.1 -Total Square Cm 0.15 3.4 0.01 -Date of Last Picture (Recall this 03/25/23 field) -Photo Taken Yes -Exudate Amt Small Medium Small -Exudate Type Serosanguineous Serosanguineous Serosanguineous -Wound Margin Distinct, Distinct, Distinct, Outline Outline Outline Attached Attached Attached -Granulation Amt Large (67-100%) Large (67-100%) Large (67-100%) -Granulation Quality Red Red Red -Texture ([place]-wound Skin Appearance) Assessed Assessed Assessed -Moisture ([place]-wound Skin Appearance) Assessed Assessed Assessed -Color ([place]-wound Skin Appearance) Assessed, Assessed Assessed Erythema -Temperature ([place]-wound Skin No Abnormality No Abnormality No Abnormality Appearance) (Pt Warm) (Pt Warm) (Pt Warm) -Tenderness on Palpation ([place]-wound Yes Skin Appearance) -Ulcer Cleansing Soap and Water Rinsed/ Soap and Water Irrigated with Saline -Anesthetic Used 5% Lidocaine 5% Lidocaine 5% Lidocaine Gel Gel Gel #8 L Ischial Cluster -Current Size (cm) - Length 2.5 0.2 2.3 -Current Size (cm) - Width 2.6 3 4.5 -Current Size (cm) - Depth 0.1 0.1 0.1 -Total Square Cm 6.50 0.6 10.35 -Date of Last Picture (Recall this 03/25/23 field) -Photo Taken Yes -Exudate Amt Small Large Large -Exudate Type Serosanguineous Purulent Yellow/Green -Wound Margin Distinct, Distinct, Distinct, Outline Outline Outline Attached Attached Attached -Granulation Amt Large (67-100%) Small (1-33%) Large (67-100%) -Granulation Quality [place] Red Red -Necrosis Amt Small (1-33%) Large (67-100%) Small (1-33%) -Necrotic Tissue Type Adherent Slough Adherent Slough Adherent Slough -Texture ([place]-wound Skin Appearance) Assessed Assessed Assessed -Moisture ([place]-wound Skin Appearance) Assessed Assessed Assessed -Color ([place]-wound Skin Appearance) Assessed Assessed Assessed -Temperature ([place]-wound Skin No Abnormality No Abnormality No Abnormality Appearance) (Pt Warm) (Pt Warm) (Pt Warm) -Tenderness on Palpation ([place]ola-wound Yes Skin Appearance) -Ulcer Cleansing Soap and Water Rinsed/ Soap and Water Irrigated with Saline -Foul Odor after Cleansing No -Anesthetic Used 5% Lidocaine 5% Lidocaine 5% Lidocaine Gel Gel Gel 04/08/23 14:41 Wound Center Nurse 1 #5scrotum/R Groin Cluster -Current Size (cm) - Length -Current Size (cm) - Width -Current Size (cm) - Depth -Total Square Cm -Date of Last Picture (Recall this field) -Photo Taken -Exudate Amt -Exudate Type -Wound Margin -Granulation Amt -Granulation Quality -Texture ([place]ola-wound Skin Appearance) -Moisture ([place]imbola-wound Skin Appearance) -Color ([place]ola-wound Skin Appearance) -Temperature ([place]ola-wound Skin Appearance) -Tenderness on Palpation ([place]imbola-wound Skin Appearance) -Ulcer Cleansing -Anesthetic Used #8 L Ischial Cluster -Current Size (cm) - Length 2.5 -Current Size (cm) - Width 5 -Current Size (cm) - Depth 0.1 -Total Square Cm 12.5 -Date of Last Picture (Recall this field) -Photo Taken -Exudate Amt Large -Exudate Type Yellow/Green -Wound Margin Distinct, Outline Attached -Granulation Amt Large (67-100%) -Granulation Quality Red -Necrosis Amt -Necrotic Tissue Type -Texture ([place]-wound Skin Appearance) Assessed -Moisture ([place]ola-wound Skin Appearance) Assessed -Color ([place]-wound Skin Appearance) Assessed -Temperature ([place]-wound Skin No Abnormality Appearance) (Pt Warm) -Tenderness on Palpation ([place]ola-wound Skin Appearance) -Ulcer Cleansing Soap and Water -Foul Odor after Cleansing No -Anesthetic Used 5% Lidocaine Gel WC - Nurse 2 - General Ulcer CM Notes Start: 03/18/23 15:22 Freq: Status: Active Protocol: Activity Type Activity Date Activity User E-sign Co-sign Detail Recorded Client Recorded Date Recorded By Document 03/18/23 16:30 PL [id number] 03/18/23 16:32 Document 03/25/23 14:56 Laptop 03/25/23 15:02 Document 04/01/23 15:11 Laptop 04/01/23 15:13 Document 04/08/23 14:51 Laptop 04/08/23 14:53 03/18/23 03/25/23 04/01/23 16:30 14:56 15:11 Wound Center Nurse 2 #5scrotum/R Groin Cluster -Time 15:42 14:57 -Correct Patient Yes Yes No -Correct Side, Site, Position Yes Yes No -Correct Procedure Yes Yes No -Procedure Performed Yes Yes No -Type of Procedure Debridement Debridement -Clinical Debridement Subcutaneous Subcutaneous -Tissue Removed Subcutaneous Subcutaneous -Post Debridement (cm) - Length 0.5 3.5 0 -Post Debridement (cm) - Width 0.3 1 0 -Post Debridement (cm) - Depth 0.1 0.2 0 -Total Square (Post) (cm) 0.15 3.5 0 -Area of Debridement (cm) - Length 0.5 3.5 0 -Area of Debridement (cm) - Width 0.3 1.0 0 -Total Square (Area) (cm) 0.15 3.50 0 -Tunneling No No -Undermining/Tunneling No No -Circular Undermining No No -Wound/Ulcer Outcome Not Healed Not Healed Healed- Epithelialized -Ulcer Cleansing Rinsed/ Rinsed/ Irrigated with Irrigated with Saline Saline -Foul Odor after Cleansing No No -Bioengineered Tissue No No -Bleeding Controlled with Pressure Pressure -Treatment Response Procedure Procedure Tolerated Well Tolerated Well -Offloading No -Debridement - Subq, 1st 20sq cm Yes Yes #8 L Ischial Cluster -Time 15:42 14:58 15:11 -Correct Patient Yes Yes Yes -Correct Side, Site, Position Yes Yes Yes -Correct Procedure Yes Yes Yes -Procedure Performed Yes Yes Yes -Type of Procedure Debridement Debridement Debridement -Clinical Debridement Subcutaneous Subcutaneous Subcutaneous -Tissue Removed Subcutaneous Subcutaneous Subcutaneous -Post Debridement (cm) - Length 2.5 0.3 3.0 -Post Debridement (cm) - Width 2.6 3.0 4.5 -Post Debridement (cm) - Depth 0.1 0.1 0.1 -Total Square (Post) (cm) 6.50 0.90 13.50 -Area of Debridement (cm) - Length 2.5 0.3 3.0 -Area of Debridement (cm) - Width 2.6 3.0 4.5 -Total Square (Area) (cm) 6.50 0.90 13.50 -Tunneling No No No -Undermining/Tunneling No No No -Circular Undermining No No No -Wound/Ulcer Outcome Not Healed Not Healed Not Healed -Ulcer Cleansing Rinsed/ Rinsed/ Rinsed/ Irrigated with Irrigated with Irrigated with Saline Saline Saline -Foul Odor after Cleansing No No No -Bioengineered Tissue No No No -Bleeding Controlled with Pressure Pressure Pressure -Treatment Response Procedure Procedure Procedure Tolerated Well Tolerated Well Tolerated Well -Offloading No No -Debridement - Subq, 1st 20sq cm No No Yes Pain Scale: 0-10 Numeric Is Patient Pain Free? Yes Yes Yes 04/08/23 14:51 Wound Center Nurse 2 #5scrotum/R Groin Cluster -Time -Correct Patient -Correct Side, Site, Position -Correct Procedure -Procedure Performed -Type of Procedure -Clinical Debridement -Tissue Removed -Post Debridement (cm) - Length -Post Debridement (cm) - Width -Post Debridement (cm) - Depth -Total Square (Post) (cm) -Area of Debridement (cm) - Length -Area of Debridement (cm) - Width -Total Square (Area) (cm) -Tunneling -Undermining/Tunneling -Circular Undermining -Wound/Ulcer Outcome -Ulcer Cleansing -Foul Odor after Cleansing -Bioengineered Tissue -Bleeding Controlled with -Treatment Response -Offloading -Debridement - Subq, 20sq cm #8 L Ischial Cluster -Time 14:51 -Correct Patient Yes -Correct Side, Site, Position Yes -Correct Procedure Yes -Procedure Performed Yes -Type of Procedure Debridement -Clinical Debridement Subcutaneous -Tissue Removed Subcutaneous -Post Debridement (cm) - Length 4.5 -Post Debridement (cm) - Width 2.3 -Post Debridement (cm) - Depth 0.1 -Total Square (Post) (cm) 10.35 -Area of Debridement (cm) - Length 4.5 -Area of Debridement (cm) - Width 2.3 -Total Square (Area) (cm) 10.35 -Tunneling No -Undermining/Tunneling No -Circular Undermining No -Wound/Ulcer Outcome Not Healed -Ulcer Cleansing Rinsed/ Irrigated with Saline -Foul Odor after Cleansing No -Bioengineered Tissue No -Bleeding Controlled with Pressure -Treatment Response Procedure Tolerated Well -Offloading No -Debridement - Subq, 1st 20sq cm Yes Pain Scale: 0-10 Numeric Is Patient Pain Free? Yes WC - Nurse 3 - General Ulcer D/C NN Start: 03/18/23 15:22 Freq: Status: Active Protocol: Activity Type Activity Date Activity User E-sign Co-sign Detail Recorded Client Recorded Date Recorded By Document 03/18/23 15:53 KW Desktop 03/18/23 15:54 KW Document 03/25/23 15:09 [facility] Desktop 03/25/23 15:10 [facility] Document 04/01/23 15:23 KW Desktop 04/01/23 15:23 Document 04/08/23 14:53 Laptop 04/08/23 14:54 03/18/23 03/25/23 04/01/23 15:53 15:09 15:23 Wound Care Center Nurse 3 #5scrotum/R Groin Cluster -Ulcer Cleansing Rinsed/ Irrigated with Saline -Foul Odor after Cleansing No -Primary Dressing Applied Promogran Jacqueline Matter -Other Dressing ABD; SECURED W/ CO[place]AN; DRSG PER DL PRECISION MECHANICAL INSTRUMENT MAKER -Primary Dressing Covered/Secured with Dry Gauze -Promogran Jacqueline Matter 0 #8 L Ischial Cluster -Ulcer Cleansing Rinsed/ Irrigated with Saline -Foul Odor after Cleansing No -Primary Dressing Applied Promogran Promogran Mepilex Border, Jacqueline Matter Jacqueline Matter Promogran Jacqueline Matter -Other Dressing ABD, SECURED W/ [place]; DRSG PER DL PRECISION MECHANICAL INSTRUMENT MAKER -Primary Dressing Covered/Secured with Dry Gauze -Mepilex Border 1 -Promogran Jacqueline Matter 1 1 1 Treatment Response Procedure Tolerated Well Pain Scale: 0-10 Numeric Is Patient Pain Free? Yes Yes Yes WC - Visit Discharge Discharge Condition Stable Stable Stable Ambulatory Status Ambulatory Ambulatory Ambulatory Transportation Private Auto Private Auto Private Auto Accompanied by Medication Reconcilliation completed & No No provided to patient/care provider Clinical Summary of Care Provided Yes Yes 04/08/23 14:53 Wound Care Center Nurse 3 #5scrotum/R Groin Cluster -Ulcer Cleansing -Foul Odor after Cleansing -Primary Dressing Applied -Other Dressing -Primary Dressing Covered/Secured with -Promogran Jacqueline Matter #8 L Ischial Cluster -Ulcer Cleansing Rinsed/ Irrigated with Saline -Foul Odor after Cleansing No -Primary Dressing Applied Promogran Jacqueline Matter -Other Dressing sample [place] SAP -Primary Dressing Covered/Secured with -Mepilex Border -Promogran Jacqueline Matter 1 Treatment Response Pain Scale: 0-10 Numeric Is Patient Pain Free? Yes WC - Visit Discharge Discharge Condition Stable Ambulatory Status Ambulatory Transportation Private Auto Accompanied by Medication Reconcilliation completed & Yes provided to patient/care provider Clinical Summary of Care Provided Yes Assessment/Plan Assessment/Plan (1) Chronic ulcer of left thigh with fat layer exposed: CODE(S): L97.122 - Non-pressure chronic ulcer of left thigh with fat layer exposed (2) Pressure sore of left ischium, stage 3: CODE(S): L89.323 - Pressure ulcer of left buttock, stage 3 (3) Ulcer of perineum with fat layer exposed: CODE(S): L98.492 - Non-pressure chronic ulcer of skin of other sites with fat layer exposed (4) Skin ulcer of scrotum: CODE(S): N50.89 - Other specified disorders of the male genital organs (5) Suppurative hidradenitis: CODE(S): L73.2 - Hidradenitis suppurativa (6) Diabetes type 2, uncontrolled: CODE(S): E11.65 - Type 2 diabetes mellitus with hyperglycemia QUALIFIERS: Glycemic state: with hyperglycemia Qualified Code(s): E11.65 - Type 2 diabetes mellitus with hyperglycemia (7) Hemoglobin A1c greater than 8.0 percent: CODE(S): R73.09 - Other abnormal glucose (8) Smoker: CODE(S): F17.200 - Nicotine dependence, unspecified, uncomplicated PLAN: Plan Continue Jacqueline to the left ischial ulcer. The right groin ulcer remains healed. Encouraged increase protein intake and increase Vitamin C intake. Will need supplemental protein to help heal this wound. His last Prealbumin from 04/23/22 was 19.8. Encouraged patient to stop smoking as it may have deleterious effects on wound healing. Before any surgical debridement will obtain a culture. A positive culture will necessitate antibiotic therapy. Patient sees dermatology who is managing the medical portion of his hidradenitis. His next surgery will be excision hidradenitis right perianal and perineal area and left ischial/proximal posterior thigh ulcer and right inguinal ulcer. The ulcers would be skin grafted. The hidradenitis ulcers will be left open and packed with Silver dressings. His Creatinine was 3.07 on 02/18/23. The Potassium was 3.1 on 02/18/23. Hgb was 9.7 on 02/18/23. His Creatinine was 1.56 on 04/23/22. Since then it has ranged from a low of 2.38 on 10/09/22 to a high of 3.65 on 02/13/23. His PCP is managing the Creatinine. It needs to be trending downward before proceeding with the surgery. Patient is diabetic. His last HgbA1c was 8.5 on 03/01/23. For elective s urgeries, the HgbA1c needs to be less than 8. A wound culture was obtained on 04/01/23. It was positive for Klebsiella aerogenes, Staphylococcus aureus, and Anaerobic cocci. He was started on Doxyc ycline and Flagyl. When the Flagyl is done, will start Levaquin. However, he had stomach issues when on the Doxycycline. Will stop the Doxycycline. Continue the Flagyl and Levaquin. The Levaquin should cover the Staphylococcus aureus. If pain continues, may go to Silvadene which is a little messier but can help to decrease the pain. Follow up one week.
== END 2023-04-11 23:59 | disposition home or self-care (01) ==
LOC: WC 14:30
PROVIDERS: PCP Nurse Practitioner; Referring Provider Nurse Practitioner Family; Visit Provider Surgery
DX: L73.2 Hidradenitis suppurativa (principal); L89.223 Pressure ulcer of left hip, stage 3; E11.622 Type 2 diabetes mellitus with other skin ulcer; L97.122 Non-pressure chronic ulcer of left thigh with fat layer exposed; L98.492 Non-pressure chronic ulcer of skin of other sites with fat layer exposed; E11.65 Type 2 diabetes mellitus with hyperglycemia; I25.10 Atherosclerotic heart disease of native coronary artery without angina pectoris; N50.9 Disorder of male genital organs, unspecified; I10 Essential (primary) hypertension
CPT/HCPCS: 11042; 87070; 87075; 87077; 87186; 87205

== ENCOUNTER → 2023-04-12 | Outpatient (CLI) | payer MEDICARE, BC, SELFPAY ==
[2023-04-12 22:11] LABS: Absolute Neutrophil Count 6.3 X10^3/uL (2.0-7.7); Basophil# 0.07 X10^3/uL; Basophil% 0.7 % (0-1); Eosinophil# 0.29 X10^3/uL; Eosinophils% 2.8 % (0-5); Hematocrit 28.1 % (40-54); Hemoglobin 8.7 g/dL (13.0-16.5); Lymphocyte % 28.4 % (19-41); Mean Corpuscular Volume 83.9 fL (80-94); Monocyte# 0.61 X10^3/uL; NRBC Flagged by Analyzer 0 % (0-5); Neutrophil # 6.31 X10^3/uL (2.7-7.7); Neutrophil % 61.7 % (47-70); Platelet Count 317 K/mm3 (150-450); RBC Distribution Width CV 15.4 % (11.6-14.6); RBC Distribution Width SD 46.5 fl (35.1-43.9); Red Blood Count 3.35 M/mm3 (4.6-6.2); White Blood Count 10.2 K/mm3 (4.4-11.0)
--- OUTSIDE RECORDS SUMMARY | 2023-04-12 22:12 | XMS RPT_ITS | CCD ---
Author Name Unknown Address [id number] [place] [address] Organization [facility] Care Team Providers Care Inbound Call Center Agent Name Role Phone Marco Aguilera Attending Unavailable Roberto, Kary Referring Unavailable Roberto, Kary Primary Care Unavailable Marco Aguilera Attending Unavailable Roberto, Kary Referring Unavailable Roberto, Kary Primary Care Unavailable Marco Aguilera Attending Unavailable Roberto, Kary Referring Unavailable Roberto, Kary Primary Care Unavailable Vinay Ro Primary Care Provider [phone] Vinay Ro Primary Care Provider Vinay Ro Primary Care Provider [phone] JIA ABURTO-VINAY DIANE Primary Care Physici an Vinay Ro Primary Care Provider [phone] VINAY RO Primary Care Unavailable BENTON GLASS Attending Unavailable Jia NET LEAD DEVELOPERSHELLIE, Vinay Prince Primary Care Provide r Terrence Olmedo Attending Unavailable Terrence Olmedo Admitting Unavailable BARNEY OSORIO Attending Unavailable VINAY RO Primary Care Unavailable Allergies Allergy Classification Reported Allergen(s) Allergy Type Date of Onset Reaction(s) Facility (20 sources) Penicillins Propensity to adverse reactions to drug 09-07-19 15 [place], [place] (20 sources) Sulfonamides (Antibiotic) Propensity to adverse reactions to drug 09-07-19 15 [place], [place] (6 sources) buPROPion; Translations: [bupropion] Drug Allergy 12-26-19 22 Other: See Comments [facility] (6 sources) Penicillin; Translations: [penicillin] Drug Allergy 07-05-19 18 Unknown [facility] (1 source) Sulfonamides (Antibiotic); Translations: [sulfa drugs] Drug allergy [facility] (5 sources) Sulfonamides (Antibiotic); Translations: [SULFA (SULFONAMIDE ANTIBIOTICS)] Propensity to adverse reactions to drug (disorder) 07-05-19 18 Unknown [facility] (1 source) Penicillins Drug allergy (disorder) 05-12-[address] [facility] (1 source) Sulfonamides (Antibiotic) Drug allergy (disorder) 05-12-[address] [facility] Medications Current Medications Medication Drug Class(es) Dates Sig (Normalized) Sig (Original) clopidogrel 75 mg oral tablet (4 sources) [id number] Platelet Inhibitor Start: 01-26-2021 Plavix 75 mg oral tablet Dose : 75 mg = 1 tab(s), Oral, Daily, 0 Refill(s) Start Date: 01/26/21 Status: Ordered Completed/Discontinued Medications Medication Drug Class(es) Dates Sig (Normalized) Sig (Original) acetaminophen 325 mg oral tablet (19 sources) Start: 02-09-2020 End: 02-09-2020 acetaminophen (TYLENOL) tablet 650 mg Problems Active Problems Problem Classification Problem Date Documented Da te Episodic/Chronic Abdominal hernia (2 sources) Parastomal hernia; Translations: [Parastomal hernia without obstruction or gangrene] Episodic Coronary atherosclerosis and other heart disease (20 sources) Coronary arteriosclerosis in [place] artery; Translations: [Coronary atherosclerosis] Onset: 6 10-24-2015 Chronic Diabetes mellitus with complications (20 sources) Type II diabetes mellitus uncontrolled; Translations: [DM type 2, not at goal] Onset: 6 10-24-2015 Chronic Diabetes mellitus without complication (20 sources) Type 2 diabetes mellitus; Translations: [Type 2 diabetes mellitus with complication, without long-term current use of insulin] Onset: 7 03-09-2016 Chronic Disorders of lipid metabolism (20 sources) Hyperlipidemia; Translations: [Hyperlipidemia, unspecified] Onset: 6 10-24-2015 Chronic Genitourinary symptoms and ill-defined conditions (1 source) Other microscopic hematuria; Translations: [Hematuria, microscopic] Onset: 2 Episodic Other gastrointestinal disorders (1 source) Disorder of stoma; Translations: [Disease of digestive system, unspecified] Episodic Other skin disorders (20 sources) Hidradenitis suppurativa; Translations: [Hidradenitis suppurativa] Onset: 8 04-23-2017 Episodic Substance-related disorders (20 sources) Smoker; Translations: [Smoker] Onset: 6 10-24-2015 Chronic Unclassified (1 source) Acute midline low back pain without sciatica; Translations: [Acute midline low back pain without sciatica] Onset: 2 Past or Other Problems Problem Classification Problem Date Documented Da te Episodic/Chronic Other upper respiratory infections (20 sources) Sore throat symptom; Translations: [Sore throat] Onset: 10-24-2015 Resolved: 11-07-2017 11-07-2017 Episodic Results Test Name Value Interpretation Reference Range Facil ity Vital Signs Date Time Vital Sign Value Performing Clinician Facility 05-15-2022 08:23-0400 Diastolic blood pressure 82 mm[Hg] Barney Osorio MD Work Phone: [facility] 05-15-2022 08:23-0400 Systolic blood pressure 180 mm[Hg] Barney Osorio MD Work Phone: [facility] 05-15-2022 [id number] Body height 172.7 cm Barney Osorio MD Work Phone: [facility] 05-15-2022 08:11-0400 Body temperature 98.2 [degF] Barney Osorio MD Work Phone: [facility] 05-15-2022 [id number] Body weight 68.95 kg Barney Osorio MD Work Phone: [facility] 05-15-2022 08:11-0400 Heart rate 78 /min Barney Osorio MD Work Phone: [facility] 05-15-2022 08:11-0400 SaO2% (BldA) [Mass fraction] 99 % Barney Osorio MD Work Phone: [facility] 02-23-2022 07:58-0500 Body height 172.7 cm Barney Osorio MD Work Phone: [facility] 02-23-2022 07:58-0500 Body temperature 98.2 [degF] Barney Osorio MD Work Phone: [facility] 02-23-2022 07:58-0500 Body weight 68.04 kg Barney Osorio MD Work Phone: [facility] 02-23-2022 07:58-0500 Diastolic blood pressure 78 mm[Hg] Barney Osorio MD Work Phone: [facility] 02-23-2022 07:58-0500 Heart rate 93 /min Barney Osorio MD Work Phone: [facility] 02-23-2022 07:58-0500 SaO2% (BldA) [Mass fraction] 100 % Barney Osorio MD Work Phone: [facility] 02-23-2022 07:58-0500 Systolic blood pressure 170 mm[Hg] Barney Osorio MD Work Phone: [facility] 01-27-2021 18:00-0500 Systolic blood pressure 165 mm[Hg] RAMA JOYCE MD [facility] 01-27-2021 17:35-0500 Diastolic blood pressure 71 mm[Hg] RAMA JOYCE MD [facility] 01-27-2021 17:35-0500 Heart rate 80 /min RAMA JOYCE MD [facility] 01-27-2021 17:35-0500 Systolic blood pressure 159 mm[Hg] RAMA JOYCE MD [facility] 01-27-2021 17:20-0500 Diastolic blood pressure 93 mm[Hg] RAMA JOYCE MD [facility] 01-27-2021 17:20-0500 Heart rate 84 /min RAMA JOYCE MD [facility] 01-27-2021 17:20-0500 Systolic blood pressure 167 mm[Hg] RAMA JOYCE MD [facility] 01-27-2021 16:50-0500 Respiratory rate 18 /min RAMA JOYCE MD [facility] 01-27-2021 16:35-0500 Mean blood pressure 108 mm[Hg] RAMA JOYCE MD [facility] 01-27-2021 16:35-0500 Respiratory rate 18 /min RAMA JOYCE MD [facility] 01-27-2021 16:30-0500 Mean blood pressure 120 mm[Hg] RAMA JOYCE MD [facility] 01-27-2021 16:30-0500 Respiratory rate 18 /min RAMA JOYCE MD [facility] 01-27-2021 16:25-0500 Mean blood pressure 112 mm[Hg] RAMA JOYCE MD [facility] 01-27-2021 10:42-0500 Body height 172.7 cm RAMA JOYCE MD [facility] 01-27-2021 10:42-0500 Body temperature 96.98 [degF] RAMA JOYCE MD [facility] 01-27-2021 10:42-0500 Body weight 67.4 kg RAMA JOYCE MD [facility] 01-27-2021 10:42-0500 Diastolic blood pressure 76 mm[Hg] RAMA JOYCE MD [facility] 01-27-2021 10:42-0500 Heart rate 78 /min RAMA JOYCE MD [facility] 01-27-2021 10:42-0500 systolic 150 mm[Hg] RAMA JOYCE MD [facility] 02-09-2020 11:12-0500 BP Diastolic 68 mm[Hg] [facility] [place] 02-09-2020 11:12-0500 BP Systolic 100 mm[Hg] [facility] [place] 02-09-2020 11:12-0500 Pulse (Heart Rate) 73 /min [facility] 02-09-2020 11:12-0500 Respiratory Rate 18 /min [facility] 02-09-2020 08:05-0500 BMI (Body Mass Index) 26.5 kg/m2 Marco Aguilera [facility] 02-09-2020 08:05-0500 Body Temperature 98.91 [degF] Marco [facility] 02-09-2020 08:05-0500 Body weight 76.75 kg Marco [facility] [place] 01-12-2020 11:17-0500 BP Diastolic 77 mm[Hg] [facility] [place] 01-12-2020 11:17-0500 BP Systolic 160 mm[Hg] [facility] [place] 01-12-2020 11:17-0500 Pulse (Heart Rate) 78 /min [facility] [place] 01-12-2020 08:10-0500 BMI (Body Mass Index) 25.73 kg/m2 Marco Aaron [facility] 01-12-2020 08:10-0500 Body Temperature 98.29 [degF] Marco Aaron [facility] 01-12-2020 08:10-0500 Body weight 74.53 kg Marco Aguilera [facility] , [place] 01-12-2020 08:10-0500 Pulse Oximetry 97 % [facility] [place] 01-12-2020 08:10-0500 Respiratory Rate 18 /min Marco Aaron [facility] 12-17-2019 11:58-0500 BP Diastolic 73 mm[Hg] [facility] [place] 12-17-2019 11:58-0500 BP Systolic 123 mm[Hg] [facility] [place] 12-17-2019 11:58-0500 Pulse (Heart Rate) 75 /min Marco Aguilera [facility] 12-17-2019 11:58-0500 Respiratory Rate 18 /min [facility] [place] 12-17-2019 09:00-0500 BMI (Body Mass Index) 26.44 kg/m2 Marco Aaron [facility] 12-17-2019 09:00-0500 Body Temperature 97.7 [degF] [facility] [place] 12-17-2019 09:00-0500 Body weight 76.57 kg [facility] [place] 12-17-2019 09:00-0500 Height 170.2 cm [facility] [place] 12-10-2019 09:05-0400 Body Temperature 99.39 [degF] [facility] [place] 12-10-2019 08:57-0400 BMI (Body Mass Index) 26.11 kg/m2 Marco Aaron [facility] 12-10-2019 08:57-0400 Body weight 75.61 kg Marco Aguilera [facility] [place] 12-10-2019 08:57-0400 BP Diastolic 95 mm[Hg] Marco Aguilera [facility] [place] [facility] [place] 12-10-2019 08:57-0400 BP Systolic 160 mm[Hg] Marco Aguilera [facility] [place] [facility] [place] 12-10-2019 08:57-0400 Pulse (Heart Rate) 101 /min Marco Aaron [facility] [place] 12-10-2019 08:57-0400 Respiratory Rate 18 /min [facility] [place] 11-12-2019 08:49-0400 BMI (Body Mass Index) 26.16 kg/m2 Marco Aaron [facility] [place] 11-12-2019 08:49-0400 Body Temperature 98.2 [degF] [facility] [place] 11-12-2019 08:49-0400 Body weight 75.75 kg Marco Aaron [facility] [place] , [place] 11-12-2019 08:49-0400 BP Diastolic 84 mm[Hg] Marco Aguilera [facility] [place] , [place] 11-12-2019 08:49-0400 BP Systolic 122 mm[Hg] Marco Aguilera [facility] [place] , [place] 11-12-2019 08:49-0400 Pulse (Heart Rate) 72 /min Marco Aaron [facility] [place] 11-12-2019 08:49-0400 Respiratory Rate 18 /min Marco [facility] [place] 10-15-2019 12:56-0400 Body Temperature 97.9 [degF] Marco [facility] [place] 10-15-2019 12:56-0400 BP Diastolic 60 mm[Hg] [facility] [place] [facility] [place] 10-15-2019 12:56-0400 BP Systolic 139 mm[Hg] [facility] [place] [facility] [place] 10-15-2019 12:56-0400 Pulse (Heart Rate) 69 /min Marco Aaron [facility] [place] 10-15-2019 12:56-0400 Respiratory Rate 18 /min [facility] 10-15-2019 10:04-0400 BMI (Body Mass Index) 25.29 kg/m2 Marco Aaron [facility] [place] 10-15-2019 10:04-0400 Body weight 73.26 kg Marco Aaron [facility] , [place] 10-15-2019 10:04-0400 Height 170.2 cm Marco Aaron [facility] [place] 10-15-2019 10:04-0400 Pulse Oximetry 96 % Marco Aaron [facility] [place] 09-17-2019 08:38-0400 BMI (Body Mass Index) 25.48 kg/m2 Marco Aaron [facility] 09-17-2019 08:38-0400 Body Temperature 97.81 [degF] Marco Aaron [facility] [place] 09-17-2019 08:38-0400 Body weight 73.8 kg Marco Aaron [facility] [place] 09-17-2019 08:38-0400 BP Diastolic 84 mm[Hg] Marco Aguilera [facility] [place] 09-17-2019 08:38-0400 BP Systolic 172 mm[Hg] Marco Aguilera [facility] [place] 09-17-2019 08:38-0400 Pulse (Heart Rate) 82 /min Marco Aguilera [facility] 09-17-2019 08:38-0400 Respiratory Rate 18 /min Marco Aguilera [facility] 08-20-2019 10:05-0400 BMI (Body Mass Index) 25.69 kg/m2 Marco Aaron [facility] 08-20-2019 10:05-0400 Body Temperature 98.91 [degF] Marco Aguilera [facility] 08-20-2019 10:05-0400 Body weight 74.39 kg Marco Aguilera [facility] [place] 08-20-2019 10:05-0400 BP Diastolic 87 mm[Hg] [facility] [place] 08-20-2019 10:05-0400 BP Systolic 126 mm[Hg] [facility] [place] 08-20-2019 10:05-0400 Height 170.2 cm [facility] [place] 08-20-2019 10:05-0400 Pulse (Heart Rate) 97 /min [facility] [place] 08-20-2019 10:05-0400 Respiratory Rate 18 /min [facility] [place] 07-23-2019 09:58-0400 BMI (Body Mass Index) 25.67 kg/m2 Marco Aaron [facility] [place], [place] 07-23-2019 09:58-0400 Body Temperature 98.2 [degF] Marco [facility] 07-23-2019 09:58-0400 Body weight 74.34 kg Marco [facility] [place] 07-23-2019 09:58-0400 BP Diastolic 93 mm[Hg] [facility] [place] [facility] [place] 07-23-2019 09:58-0400 BP Systolic 146 mm[Hg] [facility] [place] 07-23-2019 09:58-0400 Pulse (Heart Rate) 89 /min Marco [facility] 07-23-2019 09:58-0400 Pulse Oximetry 99 % Marco Aguilera [facility] [place] 07-23-2019 09:58-0400 Respiratory Rate 20 /min Marco Aguilera [facility] 06-25-2019 12:52-0400 Body Temperature 98.49 [degF] [facility] [place] 06-25-2019 12:52-0400 BP Diastolic 69 mm[Hg] [facility] [place] 06-25-2019 12:52-0400 BP Systolic 147 mm[Hg] Marco Aguilera [facility] [place] 06-25-2019 12:52-0400 Pulse (Heart Rate) 73 /min Marco Aguilera [facility] 06-25-2019 12:52-0400 Respiratory Rate 16 /min Marco Aguilera [facility], [place] 06-25-2019 09:57-0400 BMI (Body Mass Index) 25.76 kg/m2 Marco Aaron [facility] [place] 06-25-2019 09:57-0400 Body weight 74.62 kg Marco Aguilera [facility] [place] 06-25-2019 09:57-0400 Height 170.2 cm Marco Aguilera [facility] [place] 05-28-2019 09:56-0400 BP Diastolic 73 mm[Hg] [facility] [place] [facility] [place] 05-28-2019 09:56-0400 BP Systolic 151 mm[Hg] [facility] [place] 05-28-2019 09:56-0400 Height 170.2 cm [facility] [place] 05-28-2019 09:56-0400 Pulse (Heart Rate) 77 /min Marco Aguilera [facility] 05-28-2019 09:55-0400 BMI (Body Mass Index) 26.05 kg/m2 Marco Aaron [facility] 05-28-2019 09:55-0400 Body Temperature 97.9 [degF] [facility] [place] 05-28-2019 09:55-0400 Body weight 75.43 kg [facility] [place] 05-28-2019 09:55-0400 Respiratory Rate 18 /min [facility] [place] 04-30-2019 08:47-0400 BMI (Body Mass Index) 25.01 kg/m2 [facility] 04-30-2019 08:47-0400 Body Temperature 97.59 [degF] Marco [facility] 04-30-2019 08:47-0400 Body weight 72.43 kg [facility] [place] 04-30-2019 08:47-0400 BP Diastolic 83 mm[Hg] Marco [facility] [place] 04-30-2019 08:47-0400 BP Systolic 159 mm[Hg] Marco [facility] [place] 04-30-2019 08:47-0400 Height 170.2 cm [facility] [place] 04-30-2019 08:47-0400 Pulse (Heart Rate) 92 /min Marco [facility] 04-30-2019 08:47-0400 Pulse Oximetry 99 % Marco [facility] [place] 04-30-2019 08:47-0400 Respiratory Rate 18 /min Marco [facility] 04-02-2019 12:37-0500 Body Temperature 97.7 [degF] Marco [facility] 04-02-2019 12:37-0500 BP Diastolic 63 mm[Hg] Marco [facility] [place] , [place] 04-02-2019 12:37-0500 BP Systolic 148 mm[Hg] Marco Aguilera [facility] [place] , [place] 04-02-2019 12:37-0500 Pulse (Heart Rate) 83 /min [facility] [place] [place] 04-02-2019 12:37-0500 Respiratory Rate 18 /min Marco Aaron [facility], [place] 04-02-2019 09:05-0500 BMI (Body Mass Index) 24.93 kg/m2 Marco Aaron [facility] [place], [place] 04-02-2019 09:05-0500 Body weight 72.21 kg Marco Aguilera [facility] , [place] 04-02-2019 09:05-0500 Height 170.2 cm Marco Aaron [facility] , [place] 03-05-2019 13:29-0500 Body temperature 98.6 [degF] Marco Aguilera MD Work Phone: [facility] Work Phone: 03-05-2019 13:29-0500 Diastolic blood pressure 67 mm[Hg] Marco Aguilera MD Work Phone: [facility] Work Phone: 03-05-2019 13:29-0500 Heart rate 73 /min Marco Aguilera MD Work Phone: [facility] Work Phone: 03-05-2019 13:29-0500 Respiratory rate 16 /min Marco Aguilera MD Work Phone: [facility] Work Phone: 03-05-2019 13:29-0500 Systolic blood pressure 146 mm[Hg] Marco Aguilera MD Work Phone: [facility] Work Phone: 03-05-2019 10:08-0500 Body mass index (BMI) [Ratio] 25.34 kg/m2 Marco Aguilera MD Work Phone: [facility] Work Phone: 03-05-2019 10:08-0500 Body weight 73.39 kg Marco Aguilera MD Work Phone: [facility] Work Phone: 02-05-2019 12:24-0500 Body temperature 98.1 [degF] Marco Aguilera MD Work Phone: [facility] Work Phone: 02-05-2019 12:24-0500 Diastolic blood pressure 68 mm[Hg] Marco Aguilera MD Work Phone: [facility] Work Phone: 02-05-2019 12:24-0500 Heart rate 68 /min Marco Aguilera MD Work Phone: [facility] Work Phone: 02-05-2019 12:24-0500 Respiratory rate 18 /min Marco Aguilera MD Work Phone: [facility] Work Phone: 02-05-2019 12:24-0500 Systolic blood pressure 153 mm[Hg] Marco Aguilera MD Work Phone: [facility] Work Phone: 02-05-2019 09:05-0500 Body height 170.2 cm Marco Aguilera MD Work Phone: [facility] Work Phone: 02-05-2019 09:05-0500 Body mass index (BMI) [Ratio] 25.8 kg/m2 Marco Aguilera MD Work Phone: [facility] Work Phone: 02-05-2019 09:05-0500 Body weight 74.71 kg Marco Aguilera MD Work Phone: [facility] Work Phone: 01-07-2019 11:32-0500 Body Temperature 98.8 [degF] Marco Aguilera [employer] [place] [place] 01-07-2019 11:32-0500 BP Diastolic 73 mm[Hg] Marco Aguilera [facility] [place] 01-07-2019 11:32-0500 BP Systolic 164 mm[Hg] Marco Wil[facility] [place] 01-07-2019 11:32-0500 Pulse (Heart Rate) 71 /min Marco Aguilera [facility] 01-07-2019 11:32-0500 Respiratory Rate 18 /min [facility] [place] 01-07-2019 08:59-0500 BMI (Body Mass Index) 25.53 kg/m2 Marco Aaron [facility] 01-07-2019 08:59-0500 Body weight 73.94 kg Marco Aguilera [facility] [place] 01-07-2019 08:59-0500 Height 170.2 cm [facility] [place] 12-11-2018 11:36-0400 Body Temperature 98.49 [degF] [facility] [place] 12-11-2018 11:36-0400 BP Diastolic 70 mm[Hg] Marco [facility] [place] 12-11-2018 11:36-0400 BP Systolic 146 mm[Hg] Marco [facility] [place] 12-11-2018 11:36-0400 Pulse (Heart Rate) 72 /min [facility] [place] 12-11-2018 11:36-0400 Respiratory Rate 20 /min [facility] [place] 12-11-2018 08:17-0400 BMI (Body Mass Index) 25.09 kg/m2 Marco Aaron [facility] 12-11-2018 08:17-0400 Body weight 72.66 kg [facility] [place] 12-11-2018 08:17-0400 Height 170.2 cm [facility] [place] 11-13-2018 11:04-0400 Body Temperature 98.91 [degF] Marco [facility] 11-13-2018 11:04-0400 BP Diastolic 84 mm[Hg] Marco [facility] [place] 11-13-2018 11:04-0400 BP Systolic 159 mm[Hg] [facility] , [place] 11-13-2018 11:04-0400 Pulse (Heart Rate) 79 /min Marco [facility] 11-13-2018 11:04-0400 Respiratory Rate 16 /min Marco [facility] 11-13-2018 08:14-0400 BMI (Body Mass Index) 24.78 kg/m2 Marco Aaron [facility] 11-13-2018 08:14-0400 Body weight 71.76 kg [facility] [place] 10-16-2018 11:26-0400 Body Temperature 98.2 [degF] Marco Aaron [facility] 10-16-2018 11:26-0400 BP Diastolic 66 mm[Hg] [place] 10-16-2018 11:26-0400 BP Systolic 142 mm[Hg] [facility] [place] 10-16-2018 11:26-0400 Pulse (Heart Rate) 66 /min Marco [place] 10-16-2018 11:26-0400 Respiratory Rate 18 /min Mraco [facility] [place] 10-16-2018 08:15-0400 BMI (Body Mass Index) 25.03 kg/m2 [facility] [place] 10-16-2018 08:15-0400 Body weight 72.48 kg Marco Aguilera [place], [place] Encounters Encounter Date Encounter Type Care Provider Facility Start: 05-15-2022 End: 05-15-2022 ambulatory BARNEY OSORIO Facility:[facility] Start: 05-15-2022 End: 05-15-2022 Patient encounter procedure Barney Osorio MD Work Phone: General Surgery Procedures Date Procedure Procedure Detail Performing Clinician Colonic polypectomy RAMA HONG MD Colonoscopy RAMA JOYCE MD Colostomy RAMA JOYCE MD Stented coronary artery (finding) RAMA JOYCE MD Plan of Treatment Date Care Activity Detail Author Start: 12-25-2024 DIABETES SCREEN DIABETES SCREEN [facility] Start: 10-12-2022 Influenza vaccination INFLUENZA (Season Ended) [facility] Start: 02-11-2022 DEPRESSION ASSESSMENT DEPRESSION ASSESSMENT [facility] Start: 10-12-2021 Influenza vaccination INFLUENZA (#1) [facility] Start: 03-08-2020 End: 03-08-2020 Appointment 03/08/2020 Appointment Infusion Therapy [facility] Start: 02-09-2020 End: 02-09-2020 Appointment 02/09/2020 Appointment Infusion Therapy [facility] Start: 01-21-2020 End: 01-21-2020 Appointment 01/21/2020 Appointment Infusion Therapy [facility] Start: 12-17-2019 End: 12-17-2019 Appointment 12/17/[address] [facility] Start: 12-10-2019 End: 12-10-2019 Appointment 12/10/2019 Appointment Infusion Therapy [facility] Start: 11-12-2019 End: 11-12-2019 Appointment 11/12/2019 Appointment Infusion Therapy [facility] Start: 10-15-2019 End: 10-15-2019 Appointment 10/15/[address] [facility] Start: 10-13-2019 Influenza vaccination [place], [place] Start: 09-17-2019 End: 09-17-2019 Appointment 09/17/2019 Appointment Infusion Therapy [facility] Start: 08-20-2019 End: 08-20-2019 Appointment 08/20/[address] [facility] Start: 07-23-2019 End: 07-23-2019 Appointment 07/23/[address] [facility] Start: 06-25-2019 End: 06-25-2019 Appointment 06/25/2019 Appointment Infusion Therapy [facility] Start: 05-28-2019 End: 05-28-2019 Appointment 05/28/[address] [facility] Start: 04-30-2019 End: 04-30-2019 Appointment 04/30/[address] [facility] Start: 04-02-2019 End: 04-02-2019 Patient encounter procedure 04/02/2019 Appointment Infusion Therapy [facility] Start: 03-05-2019 End: 03-05-2019 Patient encounter procedure 03/05/2019 Appointment Infusion Therapy [facility] Start: 02-05-2019 End: 02-05-2019 Appointment 02/05/2019 Appointment Infusion Therapy [facility] Start: 01-07-2019 End: 01-07-2019 Appointment 01/07/2019 Appointment Infusion Therapy [facility] Start: 12-11-2018 End: 12-11-2018 Appointment 12/11/2018 Appointment Infusion Therapy [facility] Start: 11-13-2018 End: 11-13-2018 Appointment 11/13/2018 Appointment Infusion Therapy [facility] Start: 10-12-2018 Influenza vaccination Flu vaccine (#1) [place], [place] Start: 07-10-2018 PROSTATE CANCER SCREENING DISCUSSION PROSTATE CANCER SCREENING DISCUSSION [facility] Start: 03-10-2017 Diabetic microalbuminuria test Diabetic microalbuminuria test [place], [place] Start: 03-10-2017 Lipid panel Lipid [place] Start: 03-10-2017 Lipid screen Lipid [place] Start: 03-07-2017 A1C test (Diabetic or Prediabetic) A1C test (Diabetic or Prediabetic) [place] Start: 03-07-2017 HbA1c (Bld) [Mass fraction] A1C test (Diabetic or Prediabetic) [place] Start: 10-23-2016 [object Object] Diabetic foot exam [place] Start: 10-23-2016 Diabetic foot examination Diabetic foot exam [place] Start: 07-10-2013 Colon cancer screen colonoscopy Colon cancer screen colonoscopy [place], [place] Start: 07-10-2013 Screening for malignant neoplasm of colon Colon cancer screen colonoscopy [place], [place] Start: 07-10-2013 Shingles Vaccine (1 of 2) Shingles Vaccine (1 of 2) [place], [place] Start: 07-10-2008 COLOGUARD (FIT-DNA) COLOGUARD (FIT-DNA) [facility] Start: 07-10-2008 Colonoscopy COLONOSCOPY [facility] Start: 07-10-2008 COLORECTAL CANCER SCREENING COLORECTAL CANCER SCREENING [facility] Start: 07-10-[address] COLONOGRAPHY [facility] Start: 07-10-2008 FECAL OCCULT BLOOD FECAL OCCULT BLOOD [facility] Start: 07-10-2008 SIGMOIDOSCOPY SIGMOIDOSCOPY [facility] Start: 07-10-1998 LIPID SCREEN LIPID SCREEN [facility] Start: 07-10-1982 DTaP/Tdap/Td vaccine (1 - Tdap) DTaP/Tdap/Td vaccine (1 - Tdap) [place] Start: 07-10-1982 Hepatitis B Vaccine (1 of 3 - Risk 3-dose series) Hepatitis B Vaccine (1 of 3 - Risk 3-dose series) [place] Start: 07-10-1982 SHINGRIX VACCINE (1 of 2) SHINGRIX VACCINE (1 of 2) [facility] Start: 07-10-1982 Urine microalbumin profile DTAP,TDAP,TD (1 - Tdap) [facility] Start: 07-10-1981 HEPATITIS C SCREENING HEPATITIS C SCREENING [facility] Start: 07-10-1981 HIV SCREENING HIV SCREENING [facility] Start: 07-10-1974 DTaP/Tdap/Td vaccine (1 - Tdap) DTaP/Tdap/Td vaccine (1 - Tdap) [place] Start: 07-10-1973 Diabetic retinal exam Diabetic retinal exam [place], [place] Start: 07-10-1969 PNEUMOCOCCAL (1 - PCV) PNEUMOCOCCAL (1 - PCV) [facility] Start: 07-10-1969 Pneumococcal 0-64 years Vaccine (1 of 1 - PPSV23) Pneumococcal 0-64 years Vaccine (1 of 1 - PPSV23) [place], [place] Start: 01-11-1964 COVID-19 VACCINE (#1) COVID-19 VACCINE (#1) [facility] Start: 1965 HEPATITIS B (1 of 3 - 3-dose series) HEPATITIS B (1 of 3 - 3-dose series) [facility] End: 09-17-2019 Miscellaneous Sendout 1 Miscellaneous Sendout 1 Lab STAT Once for 1 Occurrences starting 09/17/2019 until 09/17/2019 [place], [place] Payers Date Payer Category Payer Unknown 2022 Unknown [id number] 2021 Unknown [id number] 1965 Unknown [id number] 1965 Unknown [id number] 1965 Unknown [id number] Social History Date Type Detail Facility Start: 03-07-2016 End: 12-25-2021 Tobacco smoking status NHIS Current every day smoker [facility] Start: 03-07-2016 [facility] 1965 [facility] Start: 03-07-2016 End: 05-15-2022 Alcohol intake [facility] Start: 03-07-2016 Tobacco use and exposure [facility] Start: 01-26-2021 Heavy tobacco smoker (finding) [facility] Sex Assigned At [facility] History of tobacco use Cigarette Smoker C [facility] Start: 12-25-2021 Cigarettes smoked current (pack per day) - Reported 1.5 [facility] Start: 12-25-2021 Tobacco use and exposure Smokeless tobacco non-user [facility] Goals Date Patient Goal Desired Activity /State Clinical Notes 02-05-2019 to 05-15-2022 Barney Osorio MD - 05/15/2022 8:22 AM Renae Aldana LPN - 05/15/2022 8:16 AM EDTTelephone Encounter - Margaret Aldana LPN - 05/09/2022 8:58 AM Chris Osorio MD - 02/23/2022 8:03 AM EST Note Date & Type Note Facility 05-15-2022 Note HNO ID: [id number] Author: Barney Osorio MD Service: ? Author Type: Physician Type: Progress Notes Filed: 05/15/2022 8:31 AM Note Text: HISTORY AND PHYSICAL Sven Whippleger 1965 REFERRING PHYSICIAN: Self CHIEF COMPLAINT: Consult (Pain in stoma after injury) HPI: The patient is a 56 year old male with a complaint of injury to his stoma. Patient was seen at [facility]'s emergency department on 04/26/2022. He was using a table saw and a piece of wood snapped off flying back and hit him on the medial aspect of his stoma. He has a left lower quadrant sigmoid colostomy which I created last year secondary to having hidradenitis and needing a diverting colostomy. Initially it had significant bleeding but he has had no further bleeding since then. And the output has been normal from his stoma.. PAST MEDICAL HISTORY Diagnosis Date Diabetes mellitus (HCC) Hydradenitis Hypertension PAST SURGICAL HISTORY Procedure Laterality Date CARDIAC CATHETERIZATION HX 2014 1 stent LAPAROSCOPY SURG COLOSTOMY/SKN LVL CECOSTOMY 10/01/2020 Current Outpatient Medications Medication Sig guselkumab (TREMFYA) 100 mg/mL AutoInjector Inject subcutaneously. plecanatide (TRULANCE ORAL) Take by mouth. clopidogrel (PLAVIX) 75 mg tablet Take 75 mg by mouth once daily. polyethylene glycol 3350 (MIRALAX, GLYCOLAX) 17 gram packet Take 17 g by mouth once daily. Dissolve dose in 4 - 8 ounces of liquid and take as directed. amLODIPine (NORVASC) 10 mg tablet Take 10 mg by mouth once daily. oxyCODONE IR (ROXICODONE) 5 mg immediate release tablet TAKE 2 TABLETS BY MOUTH EVERY 4 HOURS NEEDED FOR PAIN WITH a score of 1- 5 (FIVE) FOR 7 DAYS lisinopril (ZESTRIL, PRINIVIL) 40 mg tablet Take 40 mg by mouth once daily. ksgiqxxmzwq-xqcmivaf-xbhVZVPZE (TRIJARDY XR) 10-5-1,000 mg per tablet Take 1 tablet by mouth as needed. (Patient not taking: Reported on 05/15/2022) semaglutide (OZEMPIC) 0.25 mg or 0.5 mg(2 mg/1.5 mL) pen injector Inject 0.25 mg subcutaneously one time a week. (Patient not taking: Reported on 02/23/2022) docusate sodium (COLACE ORAL) Take by mouth twice daily. (Patient not taking: Reported on 02/23/2022) NANY, WITH COLLAGEN, 7-7-1.5 gram pwpk use 1 (ONE) PACKET TWICE DAILY with meals (Patient not taking: Reported on 02/23/2022) HYDROcodone-acetaminophen (NORCO) 5-325 mg per tablet Take by mouth. (Patient not taking: Reported on 12/22/2020) HYDROmorphone (DILAUDID) 2 mg tablet TAKE 1 TABLET BY MOUTH EVERY 3 HOURS NEEDED FOR PAIN WITH a score of 6-10 FOR 7 DAYS (Patient not taking: Reported on 12/22/2020) clindamycin (CLEOCIN) 300 mg capsule Take 300 mg by mouth twice daily. (Patient not taking: Reported on 11/08/2020 ) canagliflozin-metformin (INVOKAMET) 150-500 mg tab Take 2 tablets by mouth once daily. (Patient not taking: Reported on 11/08/2020 ) METOPROLOL SUCCINATE ORAL Take 25 mg by mouth once daily. (Patient not taking: Reported on 11/08/2020 ) ibuprofen (MOTRIN) 800 mg tablet Take 800 mg by mouth every 8 hours as needed. (Patient not taking: Reported on 11/08/2020 ) atorvastatin (LIPITOR) 20 mg tablet Take 20 mg by mouth once daily. (Patient not taking: Reported on 11/08/2020 ) varenicline (CHANTIX) 1 mg tablet Take 1 mg by mouth twice daily. (Patient not taking: Reported on 11/08/2020 ) rifAMPin (RIFADIN) 300 mg capsule Take 600 mg by mouth once daily. (Patient not taking: Reported on 11/08/2020 ) ferrous sulfate 325 mg (65 mg iron) tablet Take 325 mg by mouth daily with breakfast. (Patient not taking: Reported on 02/23/2022) inFLIXimab (REMICADE) 100 mg injection Inject 500 mg intravenously every 8 weeks. (Patient not taking: Reported on 11/08/2020 ) No current facility-administered medications for this visit. ALLERGIES: Penicillin, Sulfa (Sulfonamide Antibiotics), and Wellbutrin [Bupropion] PERSONAL HISTORY: Social History Tobacco Use Smoking status: Every Day Packs/day: 1.50 Types: Cigarettes Smokeless tobacco: Never Vaping Use Vaping Use: Never used Substance Use Topics Alcohol use: No Drug use: No FAMILY HISTORY: FAMILY HISTORY Problem Relation Age of Onset Diabetes Mother Hypertension Father Heart Attack Father REVIEW OF SYMPTOMS: The review of systems data was entered by the nurse and reviewed by nh Nursing Notes: Margaret Aldana LPN 05/15/2022 8:18 AM Signed REVIEW OF SYSTEMS: General: The patient denies fatigue, denies weight loss, denies weight gain, denies feeling hot, and denies feelings of cold. Eyes: The patient denies glaucoma, denies eye injury/surgery, does not wear glasses or contacts. Ear/Nose/Throat: The patient NOTES allergies, denies hayfever, denies ear infections, and denies bloody noses. Cardiovascular: The patient denies chest pain, denies heart disease, NOTES high blood pressure,NOTES cardiac stent, denies prior heart attack, denies irregular heart beat, denies hi (more content not included)... [facility] 05-15-2022 History of Presen t illness Narrative HISTORY AND PHYSICAL Sven Duong 1965 REFERRING PHYSICIAN: Self CHIEF COMPLAINT: Consult (Pain in stoma after injury) HPI: The patient is a 56 year old male with a complaint of injury to his stoma. Patient was seen at [facility]'s emergency department on 04/26/2022. He was using a table saw and a piece of wood snapped off flying back and hit him on the medial aspect of his stoma. He has a left lower quadrant sigmoid colostomy which I created last year secondary to having hidradenitis and needing a diverting colostomy. Initially it had significant bleeding but he has had no further bleeding since then. And the output has been normal from his stoma.. PAST MEDICAL HISTORY Diagnosis Date Diabetes mellitus (HCC) Hydradenitis Hypertension PAST SURGICAL HISTORY Procedure Laterality Date CARDIAC CATHETERIZATION HX 2014 1 stent LAPAROSCOPY SURG COLOSTOMY/SKN LVL CECOSTOMY 10/01/2020 Current Outpatient Medications Medication Sig guselkumab (TREMFYA) 100 mg/mL AutoInjector Inject subcutaneously. plecanatide (TRULANCE ORAL) Take by mouth. clopidogrel (PLAVIX) 75 mg tablet Take 75 mg by mouth once daily. polyethylene glycol 3350 (MIRALAX, GLYCOLAX) 17 gram packet Take 17 g by mouth once daily. Dissolve dose in 4 - 8 ounces of liquid and take as directed. amLODIPine (NORVASC) 10 mg tablet Take 10 mg by mouth once daily. oxyCODONE IR (ROXICODONE) 5 mg immediate release tablet TAKE 2 TABLETS BY MOUTH EVERY 4 HOURS NEEDED FOR PAIN WITH a score of 1- 5 (FIVE) FOR 7 DAYS lisinopril (ZESTRIL, PRINIVIL) 40 mg tablet Take 40 mg by mouth once daily. trzkytfxtms-ndeerfew-pcmULNZDD (TRIJARDY XR) 10-5-1,000 mg per tablet Take 1 tablet by mouth as needed. (Patient not taking: Reported on 05/15/2022) semaglutide (OZEMPIC) 0.25 mg or 0.5 mg(2 mg/1.5 mL) pen injector Inject 0.25 mg subcutaneously one time a week. (Patient not taking: Reported on 02/23/2022) docusate sodium (COLACE ORAL) Take by mouth twice daily. (Patient not taking: Reported on 02/23/2022) NANY, WITH COLLAGEN, 7-7-1.5 gram pwpk use 1 (ONE) PACKET TWICE DAILY with meals (Patient not taking: Reported on 02/23/2022) HYDROcodone-acetaminophen (NORCO) 5-325 mg per tablet Take by mouth. (Patient not taking: Reported on 12/22/2020) HYDROmorphone (DILAUDID) 2 mg tablet TAKE 1 TABLET BY MOUTH EVERY 3 HOURS NEEDED FOR PAIN WITH a score of 6-10 FOR 7 DAYS (Patient not taking: Reported on 12/22/2020) clindamycin (CLEOCIN) 300 mg capsule Take 300 mg by mouth twice daily. (Patient not taking: Reported on 11/08/2020 ) canagliflozin-metformin (INVOKAMET) 150-500 mg tab Take 2 tablets by mouth once daily. (Patient not taking: Reported on 11/08/2020 ) METOPROLOL SUCCINATE ORAL Take 25 mg by mouth once daily. (Patient not taking: Reported on 11/08/2020 ) ibuprofen (MOTRIN) 800 mg tablet Take 800 mg by mouth every 8 hours as needed. (Patient not taking: Reported on 11/08/2020 ) atorvastatin (LIPITOR) 20 mg tablet Take 20 mg by mouth once daily. (Patient not taking: Reported on 11/08/2020 ) varenicline (CHANTIX) 1 mg tablet Take 1 mg by mouth twice daily. (Patient not taking: Reported on 11/08/2020 ) rifAMPin (RIFADIN) 300 mg capsule Take 600 mg by mouth once daily. (Patient not taking: Reported on 11/08/2020 ) ferrous sulfate 325 mg (65 mg iron) tablet Take 325 mg by mouth daily with breakfast. (Patient not taking: Reported on 02/23/2022) inFLIXimab (REMICADE) 100 mg injection Inject 500 mg intravenously every 8 weeks. (Patient not taking: Reported on 11/08/2020 ) No current facility-administered medications for this visit. ALLERGIES: Penicillin, Sulfa (Sulfonamide Antibiotics), and Wellbutrin [Bupropion] PERSONAL HISTORY: Social History Tobacco Use Smoking status: Every Day Packs/day: 1.50 Types: Cigarettes Smokeless tobacco: Never Vaping Use Vaping Use: Never used Substance Use Topics Alcohol use: No Drug use: No FAMILY HISTORY: FAMILY HISTORY Problem Relation Age of Onset Diabetes Mother Hypertension Father Heart Attack Father REVIEW OF SYMPTOMS: The review of systems data was entered by the nurse and reviewed by nh Nursing Notes: Margaret Aldana LPN 05/15/2022 8:18 AM Signed REVIEW OF SYSTEMS: General: The patient denies fatigue, denies weight loss, denies weight gain, denies feeling hot, and denies feelings of cold. Eyes: The patient denies glaucoma, denies eye injury/surgery, does not wear glasses or contacts. Ear/Nose/Throat: The patient NOTES allergies, denies hayfever, denies ear infections, and denies bloody noses. Cardiovascular: The patient denies chest pain, denies heart disease, NOTES high blood pressure,NOTES cardiac stent, denies prior heart attack, denies irregular heart beat, denies high cholesterol, denies poor circulation, denies heart failure, other cardiac issues, denies claudication, denies cold feet, denies peripheral arterial stent. Respiratory: The patient denies tuberculosis, denies pneumonia, denies frequent cough, denies pulmonary embolism, denies shortness of breath, and denies coughing up blood. Gastrointestinal: The patient denies difficulty swallowing, denies acid reflux, denies ulcers, denies vomiting, denies jaundice/hepatitis, denies gallbladder problems, denies black or tarry stools, denies hemorrhoids, denies bleeding from rectum, denies diverticulitis, denies constipation, denies diarrhea, denies loss of stool control, and denies hernias. Kidney/Bladder: The patient denies kidney stones, denies urine infections, and denies bloody urine. Skin: The patient denies a history of skin cancer, denies bleeding/changing moles, and denies a history of skin rash. Neurologic: The patient denies a history of epilepsy/convulsions, denies headaches, denies head/spinal injuries, and denies stroke/TIA. Psychiatric: The patient denies psychiatric medications, denies depression, and denies voices, denies substance abuse. Endocrine: The patient denies thyroid disorders, NOTES diabetes, and denies hormonal problems. Hematologic: The patient denies a history of bruising, denies bleeding, and denies anemia, denies blood clots. Infections: The patient denies a history of measles and mumps, denies rheumatic fever, and denies sexually transmitted diseases. Musculoskeletal: The patient denies back pain/injury, denies back problems, denies sciatica, denies knee/foot trouble, denies arthritis, or denies gout. When was patient's last Mammogram screening? N/A Last Colonoscopy: no prior Margaret Aldana LPN PHYSICAL EXAMINATION: General: The patient is 56 year old male, well nourished, well hydrated in no acute distress. The patient is oriented to time, place, and person. VITALS: Blood pressure 180/90, pulse 78, temperature 36.8 C (98.2 F), height 172.7 cm (5' 8 ), weight 68.9 kg (152 lb), SpO2 99 %. HEENT: Normal cephalic, ataumatic, pupils are equally round, sclera are anicteric, mucous membranes are moist, oropharynx is clear. Neck has no masses, asymmetry or lymphadenopathy. Thyroid is unremarkable. Respiratory: Clear to auscultation and percussion. Normal respiratory excursion and pattern. Cardiac: Examination is regular rate and rhythm. Abdominal exam: Soft, nontender, with no palpable masses. No hepatosplenomegaly. No palpable hernias. The medial aspect of the stoma is a slightly raised piece of the mucosa that is a little bit firmer there is some sloughing of the mucosa here I do not think there is anything here for me to suture and I have a feeling this is just an area that is going to have to heal on its own. Its not actively bleeding. He still has a parastomal hernia. Rectal exam: exam deferred Extremities: no clubbing, cyanosis or edema. No adenopathy. Other: LABORATORY VALUES: As Noted RADIOLOGIC STUDIES: As Noted Assessment IMPRESSION: Parastomal hernia without obstruction or gangrene (primary encounter diagnosis) Disorder of stoma PLAN: This point I Hortensia see him back in about 2 to 3 weeks to see if this area continues to heal or slough off. I do not think I am going to have to cut this out and resuture the mucosa to the end of the skin but if it does not heal up this may be something I may need to do. I would do this without addressing the parastomal hernia. Diagnoses: (K43.5) Parastomal hernia without obstruction or gangrene (primary encounter diagnosis) (K92.9) Disorder of stoma Return to Clinic: The patient is instructed to follow-up with me in 2 weeks. Barney Osorio III, MD documented in this encounter [facility] 05-15-2022 Nurse Note REVIEW OF SYSTEMS: General: The patient denies fatigue, denies weight loss, denies weight gain, denies feeling hot, and denies feelings of cold. Eyes: The patient denies glaucoma, denies eye injury/surgery, does not wear glasses or contacts. Ear/Nose/Throat: The patient NOTES allergies, denies hayfever, denies ear infections, and denies bloody noses. Cardiovascular: The patient denies chest pain, denies heart disease, NOTES high blood pressure,NOTES cardiac stent, denies prior heart attack, denies irregular heart beat, denies high cholesterol, denies poor circulation, denies heart failure, other cardiac issues, denies claudication, denies cold feet, denies peripheral arterial stent. Respiratory: The patient denies tuberculosis, denies pneumonia, denies frequent cough, denies pulmonary embolism, denies shortness of breath, and denies coughing up blood. Gastrointestinal: The patient denies difficulty swallowing, denies acid reflux, denies ulcers, denies vomiting, denies jaundice/hepatitis, denies gallbladder problems, denies black or tarry stools, denies hemorrhoids, denies bleeding from rectum, denies diverticulitis, denies constipation, denies diarrhea, denies loss of stool control, and denies hernias. Kidney/Bladder: The patient denies kidney stones, denies urine infections, and denies bloody urine. Skin: The patient denies a history of skin cancer, denies bleeding/changing moles, and denies a history of skin rash. Neurologic: The patient denies a history of epilepsy/convulsions, denies headaches, denies head/spinal injuries, and denies stroke/TIA. Psychiatric: The patient denies psychiatric medications, denies depression, and denies voices, denies substance abuse. Endocrine: The patient denies thyroid disorders, NOTES diabetes, and denies hormonal problems. Hematologic: The patient denies a history of bruising, denies bleeding, and denies anemia, denies blood clots. Infections: The patient denies a history of measles and mumps, denies rheumatic fever, and denies sexually transmitted diseases. Musculoskeletal: The patient denies back pain/injury, denies back problems, denies sciatica, denies knee/foot trouble, denies arthritis, or denies gout. When was patient's last Mammogram screening? N/A Last Colonoscopy: no prior Margaret Aldana LPN documented in this encounter [facility] 05-09-2022 Miscellaneous Notes Called patient regarding message below, no answer, no identifying voicemail. Did not leave a message. Bacitracin, if applied multiple times in a day, will leave a residue. Try cleaning area between application before applying a new application of Bacitracin. If patient is concerned about pain and would like to be seen today by Leti Harrington he can make an appointment to come in. Dr. Osorio, whom he originally seen, is not in office until next week. Margaret Aldana LPN Patient called. Verified name and date of . Patient went to Emergency Room at [facility] after cutting wood on table saw and wood kicked back and hit the stoma. The stoma was bleeding and he had it checked. Was prescribed bacitracin and a sponge for treatment. Patient is concerned that there is a creamy white film on the stoma now. Denies fever, does have some pain at the site 09/20, stabbing, intermittent pain and positioning/repositioning. Please review and advise. Carmen Connelly LPN documented in this encounter [facility] 02-23-2022 History of Presen t illness Narrative Subjective: Is a 56-year-old gentleman well-known to me for previously creating an end colostomy secondary to having chronic infections of the perineal area. Patient states that his colostomy has been functioning well. It has telescoped some from once I created it. Recently had a CAT scan of his abdomen and pelvis which did not say there was any hernia but when you look at it and you compared to a previous CAT scan done a year prior it does look like there is more of a colonic component into the subcutaneous tissues. However the patient states that he is functionally doing okay and recently has gotten over a shingles episode which directly went to the dermatome of where the colostomy was created. Objective:Blood pressure 170/78, pulse 93, temperature 36.8 C (98.2 F), height 172.7 cm (5' 8 ), weight 68 kg (150 lb), SpO2 100 %. Patient has no tenderness around his parastomal area it is telescoping out approximately 7 cm. The surrounding tissue is soft Assessment: Parastomal hernia. Plan: At this point I really do not think there is anything to do for this. At some point he is going to have to have his colostomy reversed and I do not think doing any further surgeries on him with regards to his current stomal functioning properly at this time. We will just need to keep a close eye on it. documented in this encounter [facility] 02-23-2022 Nurse Note REVIEW OF SYSTEMS: General: The patient notes fatigue, notes weight loss, denies weight gain, denies feeling hot, and denies feelings of cold. Eyes: The patient denies glaucoma, denies eye injury/surgery, does not wear glasses or contacts. Ear/Nose/Throat: The patient notes allergies, denies hayfever, denies ear infections, and denies bloody noses. Cardiovascular: The patient denies chest pain, denies heart disease, notes high blood pressure,denies cardiac stent, denies prior heart attack, denies irregular heart beat, denies high cholesterol, notes poor circulation, denies heart failure, other cardiac issues, notes claudication, denies cold feet, denies peripheral arterial stent. Respiratory: The patient denies tuberculosis, denies pneumonia, denies frequent cough, denies pulmonary embolism, denies shortness of breath, and denies coughing up blood. Gastrointestinal: The patient denies difficulty swallowing, denies acid reflux, denies ulcers, denies vomiting, denies jaundice/hepatitis, denies gallbladder problems, denies black or tarry stools, denies hemorrhoids, denies bleeding from rectum, denies diverticulitis, denies constipation, denies diarrhea, denies loss of stool control, and notes hernias. Kidney/Bladder: The patient denies kidney stones, denies urine infections, and denies bloody urine. Skin: The patient denies a history of skin cancer, denies bleeding/changing moles, and denies a history of skin rash. Neurologic: The patient denies a history of epilepsy/convulsions, denies headaches, denies head/spinal injuries, and denies stroke/TIA. Psychiatric: The patient denies psychiatric medications, denies depression, and denies voices, denies substance abuse. Endocrine: The patient denies thyroid disorders, notes diabetes, and denies hormonal problems. Hematologic: The patient denies a history of bruising, denies bleeding, and denies anemia, denies blood clots. Infections: The patient denies a history of measles and mumps, denies rheumatic fever, and denies sexually transmitted diseases. Musculoskeletal: The patient denies back pain/injury, denies back problems, denies sciatica, denies knee/foot trouble, denies arthritis, or denies gout. When was patient's last Mammogram screening? N/A Last Colonoscopy: 2020 Irina Molina LPN documented in this encounter [facility] 01-27-2021 Hospital Discharg e instructions Patient Education 01/27/2021 18:00:54 Angiogram, Care After Angiogram, Care After This sheet gives you information about how to care for yourself after your procedure. Your health care provider may also give you more specific instructions. If you have problems or questions, contact your health care provider. What can I expect after the procedure? After the procedure, it is common to have bruising and tenderness at the catheter insertion area. Follow these instructions at home: Insertion site care Follow instructions from your health care provider about how to take care of your insertion site. Make sure you: ?Wash your hands with soap and water before you change your bandage (dressing). If soap and water are not available, use hand digital imaging technician. ?Change your dressing as told by your health care provider. Do not take baths, swim, or use a hot tub until your health care provider approves. You may shower 48 hours after the procedure or as told by your health care provider. ?Gently wash the site with plain soap and water. ?Pat the area dry with a clean towel. ?Do not rub the site. This may cause bleeding. Do not apply powder or lotion to the site. Keep the site clean and dry. Check your insertion site every day for signs of infection. Check for: ?Redness, swelling, or pain. ?Fluid or blood. ?Warmth. ?Pus or a bad smell. Activity Rest as told by your health care provider, usually for 2 days. * Do not bend left arm for 24 hours and keep on the arm board Do not lift anything that is heavier than 10 lbs. (4.5 kg) for [address] for 48 hours if you were given a medicine to help you relax (sedative). Do not drive or use heavy machinery while taking prescription pain medicine. General instructions Return to your normal activities as told by your health care provider, usually in about a week. Ask your health care provider what activities are safe for you. If the catheter site starts bleeding, lie flat and put pressure on the site. If the bleeding does not stop, get help right away. This is a medical emergency. Drink enough fluid to keep your urine clear or pale yellow. This helps flush the contrast dye from your body. Take eplx-ilb-zsbbgix and prescription medicines only as told by your health care provider. Keep all follow-up visits as told by your health care provider. This is important. Contact a health care provider if: You have a fever or chills. You have redness, swelling, or pain around your insertion site. You have fluid or blood coming from your insertion site. The insertion site feels warm to the touch. You have pus or a bad smell coming from your insertion site. You have bruising around the insertion site. You notice blood collecting in the tissue around the catheter site (hematoma). The hematoma may be painful to the touch. Get help right away if: You have severe pain at the catheter insertion area. The catheter insertion area swells very fast. The catheter insertion area is bleeding, and the bleeding does not stop when you hold steady pressure on the area. The area near or just beyond the catheter insertion site becomes pale, cool, tingly, or numb. These symptoms may represent a serious problem that is an emergency. Do not wait to see if the symptoms will go away. Get medical help right away. Call your local emergency services (911 in the [place] Do not drive yourself to the hospital. Summary After the procedure, it is common to have bruising and tenderness at the catheter insertion area. After the procedure, it is important to rest and drink plenty of fluids. Do not take baths, swim, or use a hot tub until your health care provider says it is okay to do so. You may shower 24 48 hours after the procedure or as told by your health care provider. If the catheter site starts bleeding, lie flat and put pressure on the site. If the bleeding does not stop, get help right away. This is a medical emergency. This information is not intended to replace advice given to you by your health care provider. Make sure you discuss any questions you have with your health care provider. Document Released: 08/16/2005 Document Revised: 01/10/2018 Document Reviewed: 01/02/2017 [employer] Patient Education 2020 [employer]. 01/27/2021 17:56:54 Moderate Conscious Sedation, Adult, Care After Moderate Conscious Sedation, Adult, Care After These instructions provide you with information about caring for yourself after your procedure. Your health care provider may also give you more specific instructions. Your treatment has been planned according to current medical practices, but problems sometimes occur. Call your health care provider if you have any problems or questions after your procedure. What can I expect after the procedure? After your procedure, it is common: To feel sleepy for several hours. To feel clumsy and have poor balance for several hours. To have poor judgment for several hours. To vomit if you eat too soon. Follow these instructions at home: For at least 24 hours after the procedure: Do not: ?Participate in activities where you could fall or become injured. ?Drive. ?Use heavy machinery. ?Drink alcohol. ?Take sleeping pills or medicines that cause drowsiness. ?Make important decisions or sign legal documents. ?Take care of children on your own. Rest. Eating and drinking Follow the diet recommended by your health care provider. If you vomit: ?Drink water, juice, or soup when you can drink without vomiting. ?Make sure you have little or no nausea before eating solid foods. General instructions Have a responsible adult stay with you until you are awake and alert. Take cksz-mao-fnjfbpw and prescription medicines only as told by your health care provider. If you smoke, do not smoke without supervision. Keep all follow-up visits as told by your health care provider. This is important. Contact a health care provider if: You keep feeling nauseous or you keep vomiting. You feel light-headed. You develop a rash. You have a fever. Get help right away if: You have trouble breathing. This information is not intended to replace advice given to you by your health care provider. Make sure you discuss any questions you have with your health care provider. Document Released: 11/18/2013 Document Revised: 01/10/2018 Document Reviewed: 05/19/2016 [employer] Patient Education 2020 [employer] Follow Up Care 01/24/2021 10:16:58 With:RAMA JOYCE MD, [facility], Surgery, Vascular Surgeons Address: When: Unknown Comments:Follow-up as scheduled [facility] 03-05-2019 History of Presen t illness Narrative Arrival Note Patient is here for remicade. Labs were not ordered. 1335 Patient tolerated Remicade infusion well. No IV related complications. Reviewed home going instructions. Patient understands s/sx adverse reaction or complication to report to MD office. Patient denies questions or concerns. Patient scheduled in 4 weeks. States that he is planning to have surgery to remove damaged tissue at the end of Mar or early april and he will call if Remicade appt needs changed. documented in this encounter [facility] Work Phone: 02-05-2019 History of Presen t illness Narrative Ordered treatment completed. Patient discharged without any issues. Patient has a copy of next infusion appointment and verbalizes understanding. All questions answered. Arrival Note Patient is here for remicade. Labs were not ordered. documented in this encounter [facility] Work Phone: Evaluation + Plan note No data available for this section [facility] documented in this encounter [facility] Work Phone: Evaluation note* Diagnosis Hidradenitis suppurativa- Primary Hidradenitis documented in this encounter [facility] Work Phone: Evaluation note* Diagnosis Parastomal hernia without obstruction or gangrene- Primary Hernia of unspecified site of abdominal cavity without mention of obstruction or gangrene [facility] Parastomal hernia without obstruction or gangrene- Primary Hernia of unspecified site of abdominal cavity without mention of obstruction or gangrene Disorder of stoma Other digestive system complications documented in this encounter [facility] Summary Purpose Family History No Family History Records FoundNo Family History Records FoundNo Family History Records FoundNo Family History Records FoundNo Family History Records FoundNo Family History Records FoundNo Family History Records FoundNo Family History Records Found Advance Directives No Advanced Directives Records FoundDocuments on File Type Date Recorded 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 No IV related complications. Reviewed home going instructions. Patient understands s/sx adverse reaction or complication to report to MD office. Patient denies questions or concerns. * Deepthi Rogel RN - 10/16/2018 8:34 AM EDT Arrival Note Patient is here for remicade. Labs were not ordered. documented in this encounter* Bella Pham RN - 12/11/2018 11:45 AM EDT Ordered treatment completed. Patient discharged without any issues. Patient has a copy of next infusion appointment and verbalizes understanding. All questions answered. * Bella Pham RN - 12/11/2018 8:10 AM EDT Arrival Note Patient is here for remicade. Labs were not ordered. * Deepthi Rogel RN - 11/13/2018 8:18 AM EDT Arrival Note Patient is here for remicade. Labs were not ordered. documented in this encounter* Bella Pham RN - 01/07/2019 11:43 AM EST Ordered treatment completed. Patient discharged without any issues. Patient has a copy of next infusion appointment and verbalizes understanding. All questions answered. * Bella Pham RN - 01/07/2019 8:00 AM EST Arrival Note Patient is here for remicade. Labs were not ordered. documented in this encounter* Bella Pham RN - 04/02/2019 12:15 PM EST Ordered treatment completed. Patient discharged without any issues. Patient has a copy of next infusion appointment and verbalizes understanding. All questions answered. * Bella Pham RN - 04/02/2019 9:00 AM EST Arrival Note Patient is here for remicade. Labs were not ordered. documented in this encounter* Alessia Summers RN - 05/28/2019 10:30 AM EDT Up Remicade IV and infusing without difficulty. * Alessia Summers RN - 05/28/2019 12:30 AM EDT Remicade complete and flushing with NS. No signs or symptoms of reaction. documented in this encounter* Alessia Summers RN - 06/25/2019 10:02 AM EDT Pt here for Remicade. No labs ordered. documented in this encounter* Bella Pham RN - 04/30/2019 11:55 AM EDT Ordered treatment completed. Patient discharged without any issues. Patient has a copy of next infusion appointment and verbalizes understanding. All questions answered. * Bella Pham RN - 04/30/2019 9:00 AM EDT Arrival Note Patient is here for remicade. Labs were not ordered. documented in this encounter* Bella Pham RN - 07/23/2019 1:05 PM EDT Ordered treatment completed. Patient discharged without any issues. Patient has a copy of next infusion appointment and verbalizes understanding. All questions answered. Pt states will follow up thisafternoon with MD about depressive mood. * Bella Pham RN - 07/23/2019 10:20 AM EDT Pt states feeling down the last two weeks and has had thoughts of suicide. States dose not have a plan and has felt this way in the past. Pt's is aware and plans to go with him to see Dr Aguilera today about changing his medications as the Cymbalta is not helping. Pt states his pain is a 10/10 and this is chronic for him. Pt states takes Tramadol as needed and it somewhat helps. * Bella Pham RN - 07/23/2019 10:00 AM EDT Arrival Note Patient is here for Remicade. Labs were not ordered. documented in this encounter* Leti Wilcox RN - 09/17/2019 12:10 PM EDT Ordered treatment completed. Patient discharged without any issues. Patient has a copy of next infusion appointment and verbalizes understanding. All questions answered. * Alessia Summers RN - 09/17/2019 8:33 AM EDT Pt here for Remicade. Pt [place] lab [place]. Spoke with Melissa. Melissa called computer help to assist in getting MD into system so we are able to draw The labs prior to Remicade. documented in this encounter* Bella Pham RN - 10/15/2019 1:00 PM EDT Ordered treatment completed. Patient discharged without any issues. Patient has a copy of next infusion appointment and verbalizes understanding. All questions answered. * Irina Ibanez RN - 10/15/2019 10:00 AM EDT Arrival Note Patient is here for remicade. Labs were not ordered. documented in this encounter* Bella Pham RN - 11/12/2019 12:00 PM EDT Ordered treatment completed. Patient discharged without any issues. Patient has a copy of next infusion appointment and verbalizes understanding. All questions answered. * Bella Pham RN - 11/12/2019 9:00 AM EDT Arrival Note Patient is here for remicade. Labs were not ordered. documented in this encounter* Deepthi Rogel RN - 12/10/2019 9:00 AM EDT Arrival Note Patient is here for remicade. Labs were not ordered. 0923. Patient states that he had a fever and chills yesterday. Temp was 101.6 when he woke up and went as high as 102.4 last pm. He has not taken any fever reducers and is now 99.2-99.4 temporal after sitting with hat off in chair. Call placed to Dr. Aguilera's office to discuss if patient should receive treatment today and awaiting a returned call. 0940. Per Dr. Aguilera, delay Remicade by 1 week since patient had fever and chills yesterday and temp99.2-99.7 today. Discussed with patient and he is rescheduled in 1 week. documented in this encounter* Irina Ibanez RN - 12/17/2019 9:00 AM EST Arrival Note Patient is here for remicade. Labs were not ordered. 0927 Pt due for next infusion on 01/14/20. States he is having surgery on 01/12/20 in [place]. Next appt made for 01/21/20. Dr. Aguilera notified. 1148 Dr. Aguilera's office aware next infusion date is 01/21/20. 1154 Ordered treatment completed. Patient discharged without any issues. Patient has a copy of next infusion appointment and verbalizes understanding. All questions answered. documented in this encounter* Irina Ibanez RN - 01/12/2020 8:00 AM EST Arrival Note Patient is here for remicade. Labs were not ordered. 1122 Ordered treatment completed. Patient discharged without any issues. Patient has a copy of next infusion appointment and verbalizes understanding. All questions answered. documented in this encounter* Irina Ibanez RN - 02/09/2020 8:00 AM EST Arrival Note Patient is here for remicade. Labs were not ordered. 1115 Ordered treatment completed. Patient discharged without any issues. Patient has a copy of next infusion appointment and verbalizes understanding. All questions answered. documented in this encounter* Deepthi Rogel RN - 11/13/2018 8:18 AM EDT Arrival Note Patient is here for remicade. Labs were not ordered. documented in this encounter* Bella Pham RN - 08/20/2019 10:00 AM EDT 1000- Patient is here for Remicade. Labs were not ordered. 1320- Ordered treatment completed. Patient discharged without any issues. Patient has a copy of next infusion appointment and verbalizes understanding. All questions answered. documented in this encounter Assessments Diagnosis Hidradenitis suppurativa- Primary Hidradenitis Diagnosis Hidradenitis suppurativa- Primary Hidradenitis Diagnosis Hidradenitis suppurativa- Primary Hidradenitis Diagnosis Hidradenitis suppurativa- Primary Hidradenitis Diagnosis Hidradenitis suppurativa Hidradenitis Diagnosis Hidradenitis suppurativa- Primary Hidradenitis Diagnosis Hidradenitis suppurativa- Primary Hidradenitis Additional Source Comments (unrecognized sect ion and content) No Status Records FoundNo Status Records FoundNo Status Records FoundNo Status Records FoundNo Status Records FoundNo Status Records FoundNo Status Records FoundNo Status Records Found INFORMATION SOURCE (unrecogn ized section and content) DATE CREATED AUTHOR AUTHOR'S ORGANIZ ATION 04/29/2018 [facility] DATE CREATED AUTHOR AUTHOR'S ORGANIZ ATION 04/30/[address] [facility] DATE CREATED AUTHOR AUTHOR'S ORGANIZ ATION 02/12/2020 [facility] DATE CREATED AUTHOR AUTHOR'S ORGANIZ ATION 03/17/2021 [facility] DATE CREATED AUTHOR AUTHOR'S ORGANIZ ATION 01/12/2022 [facility] DATE CREATED AUTHOR AUTHOR'S ORGANIZ ATION 11/25/2022 [facility] DATE CREATED AUTHOR AUTHOR'S ORGANIZ ATION 03/05/2023 [facility] Reason for Visit (unrecogniz ed section and content) Reason Comments Consult hernia Reason Comments Patient Question Reason Comments Consult Pain in stoma after injury Source Comments (unrecognize d section and content) In the event this informatio n is protected by the Federal Confidentiality of Alcohol and Drug Abuse Patient Records regulations: The Federal rules restrict any use of the information to criminally investigate or prosecute any alcohol or drug abuse patient.[facility] the event this information is protected by the Federal Confidentiality of Alcohol and Drug Abuse Patient Records regulations: The Federal rules restrict any use of the information to criminally investigate or prosecute any alcohol or drug abuse patient.[facility] the event this information is protected by the Federal Confidentiality of Alcohol and Drug Abuse Patient Records regulations: The Federal rules restrict any use of the information to criminally investigate or prosecute any alcohol or drug abuse patient.[facility] Care Teams (unrecognized sec tion and content) Inbound Call Center Agent Relationship Specialty Start Date End Date Vinay Ro APRN.[employer] [address] [place] [address] PCP - General Family Medicine 07/04/17 Inbound Call Center Agent Relationship Specialty Start Date End Date Vinay Ro APRN.[employer] [address] [place] [address] PCP - General Family Medicine 07/04/17 FOR RECORDS PERTAINING TO PATIENTS WHO ARE OR HAVE BEEN ENROLLED IN A CHEMICAL DEPENDENCY/SUBSTANCEABUSE PROGRAM, SOME INFORMATION MAY BE OMITTED. This clinical summary was aggregated from multiple sources. Caution should be exercised in using it in the provision of clinical care. This summary normalizes information from multiple sources, and as a consequence, information in this document may materially change the coding, format and clinical context of patient data. In addition, data may be omitted in some cases. CLINICAL DECISIONS SHOULD BE BASED ON THE PRIMARY CLINICAL RECORDS. [facility] [employer] [facility]. provides no warranty or guarantee of the accuracy or completeness of information in this document.
[2023-04-12 22:25] LABS: ALB/GLOB Ratio 0.6 RATIO (0.9-2.4); AST(SGOT) 10 U/L (15-37); Alanine Aminotransfer ALT/SGPT 12 U/L (16-61); Albumin, Serum 2.8 g/dL (3.2-5.0); Alkaline Phosphatase 113 U/L (45-117); Anion Gap 2 (5-15); BUN 19 mg/dL (7-18); Calcium,Total 8.8 mg/dL (8.5-10.1); Chloride 112 mmol/L (98-107); EST Glomerular Filtration Rate 26 mL/min (>60); Est Glom Filt Rate - Afr Amer 31 mL/min (>60); Globulin 4.9 g/dL (2.2-4.2); Glucose 135 mg/dL (74-106); Potassium 4.5 mmol/L (3.5-5.1); Protein, Total 7.7 g/dL (6.4-8.2); Sodium Level 139 mmol/L (136-145)
== END | disposition home or self-care (01) ==
PROVIDERS: PCP Nurse Practitioner; Referring Provider Nurse Practitioner; Visit Provider Nurse Practitioner
DX: E11.9 Type 2 diabetes mellitus without complications (principal)
CPT/HCPCS: 80053; 85025

== ENCOUNTER 2023-05-08 15:15 | Outpatient (RCR) | payer MEDICARE, BC, SELFPAY ==
[2023-04-12 00:17] VITALS: BP 145/32; PULSE 58; RESP 18; TEMP 36.3
[2023-04-15 15:25] VITALS: BP 170/43; PULSE 60; RESP 18; TEMP 36.6
--- NOTE | 2023-04-15 23:16 | PN.PCM_ITS ---
History of Present Illness Date of Service: 04/15/23 Chief Complaint: Nonhealing hidradenitis right perineal and perianal areas and nonhealing ulcer left ischial (proximal posterior thigh) area History of Wound: 57 year old male who has a history significant for hidradenitis, DM type II, HTN, CAD, arterial insufficiency, and smoker. He had surgery on 11/23/21 for 1. Surgical preparation right inguinal area with excision suppurative hidradenitis abscess (112 cm2, and 192 cm2 total). 2. Surgical preparation right scrotum with incision and drainage and excision suppurative hidradenitis abscess (50 cm2, and 192 cm2 total). 3. Surgical preparation right perineal area with excision suppurative hidradenitis abscess (30 cm2, and 192 cm2 total). Operative wound cultures from 11/23/21 positive for Streptococcus constellatus and Corynebacterium striatum. He was placed on Cefdinir and has finished them. A wound culture was obtained on 04/01/23. It was positive for Klebsiella aerogenes, Staphylococcus aureus, and Anaerobic cocci. He was started on Doxycycline and Flagyl. When the Flagyl is done, will start Levaquin. However, he had stomach issues when on the Doxycycline. Wound care - Jacqueline. Today he denies fevers, chills, nausea and vomiting. He states that he has a good appetite. The pain in the left ischial (proximal posterior thigh) ulcer has improved. He's had intermittent hidradenitis flare-ups in his right perineal and perianal areas in the Fall. Recently those areas have been stable. Prealbumin from 04/23/22 was 19.8. Encourage nutritional supplementation with protein to help the healing process. Patient is diabetic. His HgbA1c from 03/01/23 was 8.5. For elective surgeries, the HgbA1c needs to be less than 8. He came to the [facility] on 02/18/23 and was sent to the ED because his systolic BP was 235/99 and he was having visual problems. He was worked up and released home with a change in one of his BP meds (Carvedilol) and stopping one (Clonidine). His next appointment with the Certified Green Building Engineer is in April. Progress of Wound: Improved. Objective Data Objective Data Vital Signs: Vital Signs Temp Pulse Resp BP O2 Del Method 97.9 F 60 18 170/43 H Room Air 04/15/23 15:25 04/15/23 15:25 04/15/23 15:25 04/15/23 15:25 04/15/23 15:25 Oxygen Delivery Method Room Air Prealbumin from 04/23/22 was 19.8. Encourage nutritional supplementation with protein to help the healing process. Lab / Micro Data Attestation: I reviewed the patient's lab results. Lab results narrative: Patient has diabetes mellitus. His HgbA1c from 03/01/23 was 8.5. For elective surgeries, the HgbA1c needs to be less than 8. Micro: Microbiology 04/01/23 15:10 Wound - Ischium Gram Stain - Final 04/01/23 15:10 Wound - Ischium Wound Culture - Final Klebsiella aerogenes Staphylococcus aureus 04/01/23 15:10 Wound - Ischium Anaerobic Culture - Final Anaerobic cocci He was started on Doxycycline and Flagyl. When the Flagyl is finished after 10 days, will start the Levaquin. However, he had stomach issues with the Doxycycline. Will stop the Doxycycline. The Levaquin should cover the Staphylococcus aureus. At the present time, he will continue the Flagyl and the Levaquin. Charges/Coding Procedures Integumentary [id number]: [id number] Ayla subq tissue 20 sq cm/< (ICD-10 - L97.122, L89.323, L98.492, N50.89, L73.2, E11.65, R73.09, F17.200) Debridement Note Debridement Note Wound debrided: #8 Left ischial/proximal posterior thigh area. Laterality: Left Wound Grade/Stage: 3. Type of Debridement: Excisional debridement Anesthesia Used: 5% Lidocaine Gel Depth: Down to and including healthy tissue and in the subcutaneous layer Percentage of wound debrided: 100 Instrument Used: 3mm curette Tissue Removed: subcutaneous tissue. Severity: Fat Layer Exposed Amount of bleeding with debridement: Mild Bleeding Controlled with: Pressure and Compression and gauze Patient tolerated procedure: Patient tolerated procedure well Post-Debridement Measurements and Additional Note: Post-Debridement Measurements/Treatment BEKA - Nurse 1 - General Ulcer Assessment Start: 04/15/23 15:25 Freq: Status: Active Protocol: ROC Activity Type Activity Date Activity User E-sign Co-sign Detail Recorded Client Recorded Date Recorded By Document 04/15/23 15:25 [email or web address] 04/15/23 15:30 KW 04/15/23 15:25 WC - Today's Visit Information Type of service Follow-up Visit (Physician/MEDICAL GENETICS DIRECTOR ) Arrival Mode Ambulatory Accompanied by Patient Identification Verified (Name & Yes ) Vital Signs Temperature (97.8 F-99.1 F) 97.9 F Temperature Source Temporal Pulse Rate (60-100) 60 Pulse Location Monitor Respiratory Rate (12-18) 18 Respiratory rate source Observation Oxygen Delivery Method Room Air Blood Pressure (90/60-120/80) 170/43 H Blood Pressure Mean (mm Hg) 85 Source Monitor Position Right Lateral Blood Pressure Location Left Forearm History Since Last Visit- (Skip if this is Patient's initial visit) Have you changed medications since your No last visit? Any new allergies or adverse reactions No Had a fall/change in ADL's that may No increase risk of falls Signs or symptoms of abuse and/or No neglect since last visit Have you been in the hospital since your Yes last visit? Has dressing in place as prescribed Yes Has compression in place as prescribed N/A Has offloadiing in place as prescribed N/A Experienced any changes in pain level or No management Left Footwear Regular Shoe Right Footwear Regular Shoe Pain Scale: 0-10 Numeric Is Patient Pain Free? Yes - Nurse 1 - General Ulcer Measurement Start: 04/15/23 15:25 Freq: Status: Active Protocol: Activity Type Activity Date Activity User E-sign Co-sign Detail Recorded Client Recorded Date Recorded By Document 04/15/23 15:25 [email or web address] 04/15/23 15:30 KW 04/15/23 15:25 Wound Center Nurse 1 #8 L Ischial Cluster -Current Size (cm) - Length 1.6 -Current Size (cm) - Width 5.4 -Current Size (cm) - Depth 0.1 -Total Square Cm 8.64 -Exudate Amt Medium -Exudate Type Serosanguineous -Wound Margin Distinct, Outline Attached -Granulation Amt Large (67-100%) -Granulation Quality Red -Necrosis Amt Small (1-33%) -Necrotic Tissue Type Adherent Slough -Texture ([place]ola-wound Skin Appearance) Assessed -Moisture ([place]ola-wound Skin Appearance) Assessed -Color ([place]-wound Skin Appearance) Assessed -Temperature ([place]-wound Skin No Abnormality Appearance) (Pt Warm) -Ulcer Cleansing Soap and Water -Anesthetic Used 5% Lidocaine Gel Lower Limb Edema Present NA WC - Nurse 2 - General Ulcer CM Notes Start: 04/15/23 15:25 Freq: Status: Active Protocol: Activity Type Activity Date Activity User E-sign Co-sign Detail Recorded Client Recorded Date Recorded By Document 04/15/23 15:39 Laptop 04/15/23 15:41 04/15/23 15:39 Wound Center Nurse 2 #8 L Ischial Cluster -Time 15:39 -Correct Patient Yes -Correct Side, Site, Position Yes -Correct Procedure Yes -Procedure Performed Yes -Type of Procedure Debridement -Clinical Debridement Subcutaneous -Tissue Removed Subcutaneous -Post Debridement (cm) - Length 4.0 -Post Debridement (cm) - Width 1.4 -Post Debridement (cm) - Depth 0.1 -Total Square (Post) (cm) 5.60 -Area of Debridement (cm) - Length 4.0 -Area of Debridement (cm) - Width 1.4 -Total Square (Area) (cm) 5.60 -Tunneling No -Undermining/Tunneling No -Circular Undermining No -Wound/Ulcer Outcome Not Healed -Ulcer Cleansing Rinsed/ Irrigated with Saline -Foul Odor after Cleansing No -Bioengineered Tissue No -Bleeding Controlled with Pressure -Treatment Response Procedure Tolerated Well -Offloading No -Debridement - Subq, 1st 20sq cm Yes Pain Scale: 0-10 Numeric Is Patient Pain Free? Yes - Nurse 3 - General Ulcer D/C NN Start: 04/15/23 15:25 Freq: Status: Active Protocol: Activity Type Activity Date Activity User E-sign Co-sign Detail Recorded Client Recorded Date Recorded By Document 04/15/23 15:46 KW Desktop 04/15/23 15:46 KW 04/15/23 15:46 Wound Care Center Nurse 3 #8 L Ischial Cluster -Primary Dressing Applied Mepilex Border, Promogran Jacqueline Matter -Mepilex Border 1 -Promogran Jacqueline Matter 1 Pain Scale: 0-10 Numeric Is Patient Pain Free? 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: CODE(S): L97.122 - Non-pressure chronic ulcer of left thigh with fat layer exposed (2) Pressure sore of left ischium, stage 3: CODE(S): L89.323 - Pressure ulcer of left buttock, stage 3 (3) Ulcer of perineum with fat layer exposed: CODE(S): L98.492 - Non-pressure chronic ulcer of skin of other sites with fat layer exposed (4) Skin ulcer of scrotum: CODE(S): N50.89 - Other specified disorders of the male genital organs (5) Suppurative hidradenitis: CODE(S): L73.2 - Hidradenitis suppurativa (6) Diabetes type 2, uncontrolled: CODE(S): E11.65 - Type 2 diabetes mellitus with hyperglycemia QUALIFIERS: Glycemic state: with hyperglycemia Qualified Code(s): E11.65 - Type 2 diabetes mellitus with hyperglycemia (7) Hemoglobin A1c greater than 8.0 percent: CODE(S): R73.09 - Other abnormal glucose (8) Smoker: CODE(S): F17.200 - Nicotine dependence, unspecified, uncomplicated PLAN: Plan Continue Jacqueline to the left ischial ulcer. The right groin ulcer remains healed. Encouraged increase protein intake and increase Vitamin C intake. Will need supplemental protein to help heal this ulcer. His last Prealbumin from 04/23/22 was 19.8. Encouraged patient to stop smoking as it may have deleterious effects on wound healing. Before any surgical debridement will obtain a culture. A positive culture will necessitate antibiotic therapy. Patient sees dermatology who is managing the medical portion of his hidradenitis. His next surgery will be excision hidradenitis right perianal and perineal area and left ischial/proximal posterior thigh ulcer. The ulcer would be skin grafted. The hidradenitis ulcers will be left open and packed with Silver dressings. His Creatinine was 3.07 on 02/18/23. The Potassium was 3.1 on 02/18/23. Hgb was 9.7 on 02/18/23. His Creatinine was 1.56 on 04/23/22. Since then it has ranged from a low of 2.38 on 10/09/22 to a high of 3.65 on 02/13/23. His PCP is managing the Creatinine. It needs to be trending downward before proceeding with the surgery. Patient is diabetic. His last HgbA1c was 8.5 on 03/01/23. For elective surgeries, the HgbA1c needs to be less than 8. A wound culture was obtained on 04/01/23. It was positive for Klebsiella aerogenes, Staphylococcus aureus, and Anaerobic cocci. He was started on Doxycycline and Flagyl. When the Flagyl is done, will start Levaquin. However, he had stomach issues when on the Doxycycline. Will stop the Doxycycline. Continue the Flagyl and Levaquin. The Levaquin should cover the Staphylococcus aureus. If pain continues, may go to Silvadene which is a little messier but can help to decrease the pain. Follow up one week.
[2023-04-24 15:57] VITALS: BP 236/80; PULSE 60; RESP 20; TEMP 36.8
--- NOTE | 2023-04-24 17:07 | PCM.WC.PN ---
History of Present Illness Date of Service: 04/24/23 Chief Complaint: Nonhealing hidradenitis right perineal and perianal areas and nonhealing ulcer left ischial (proximal posterior thigh) area History of Wound: 57 year old male who has a history significant for hidradenitis, DM type II, HTN, CAD, arterial insufficiency, and smoker. He had surgery on 11/23/21 for 1. Surgical preparation right inguinal area with excision suppurative hidradenitis abscess (112 cm2, and 192 cm2 total). 2. Surgical preparation right scrotum with incision and drainage and excision suppurative hidradenitis abscess (50 cm2, and 192 cm2 total). 3. Surgical preparation right perineal area with excision suppurative hidradenitis abscess (30 cm2, and 192 cm2 total). Operative wound cultures from 11/23/21 positive for Streptococcus constellatus and Corynebacterium striatum. He was placed on Cefdinir and has finished them. A wound culture was obtained on 04/01/23. It was positive for Klebsiella aerogenes, Staphylococcus aureus, and Anaerobic cocci. He was started on Doxycycline and Flagyl. The Flagyl is done. He had stomach issues when on the Doxycycline. He is currently on Levaquin. Wound care - Jacqueline. Today he denies fevers, chills, nausea and vomiting. He states that he has a good appetite. The pain in the left ischial (proximal posterior thigh) ulcer has improved. He's had intermittent hidradenitis flare-ups in his right perineal and perianal areas in the Fall. Recently those areas have been stable. Prealbumin from 04/23/22 was 19.8. Encourage nutritional supplementation with protein to help the healing process. Patient is diabetic. His HgbA1c from 03/01/23 was 8.5. For elective surgeries, the HgbA1c needs to be less than 8. He came to [facility] on 02/18/23 and was sent to the ED because his systolic BP was 235/99 and he was having visual problems. He was worked up and released home with a change in one of his BP meds (Carvedilol) and stopping one (Clonidine). His next appointment with the [facility] is in April. Progress of Wound: Improved. Objective Data Objective Data Vital Signs: Vital Signs Temp Pulse Resp BP O2 Del Method 98.3 F 60 20 H 236/80 H Room Air 04/24/23 15:57 04/24/23 15:57 04/24/23 15:57 04/24/23 15:57 04/15/23 15:25 Oxygen Delivery Method Room Air Prealbumin from 04/23/22 was 19.8. Encourage nutritional supplementation with protein to help the healing process. Lab / Micro Data Attestation: I reviewed the patient's lab results. Lab results narrative: Patient has diabetes mellitus. His HgbA1c from 03/01/23 was 8.5. For elective surgeries, the HgbA1c needs to be less than 8. Micro: Microbiology 04/01/23 15:10 Wound - Ischium Gram Stain - Final 04/01/23 15:10 Wound - Ischium Wound Culture - Final Klebsiella aerogenes Staphylococcus aureus 04/01/23 15:10 Wound - Ischium Anaerobic Culture - Final Anaerobic cocci He was started on Doxycycline and Flagyl. The Flagyl is finished. He had stomach issues with the Doxycycline. Continue the Levaquin which should cover the Staphylococcus aureus. Charges/Coding Procedures Integumentary [id number]: [id number] Ayla subq tissue 20 sq cm/< (ICD-10 - L97.122, L89.323, L98.492, N50.89, L73.2, E11.65, R73.09, F17.200) Debridement Note Debridement Note Wound debrided: #8 Left ischial/proximal posterior thigh area. Laterality: Left Wound Grade/Stage: 3. Type of Debridement: Excisional debridement Anesthesia Used: 5% Lidocaine Gel Depth: Down to and including healthy tissue and in the subcutaneous layer Percentage of wound debrided: 100 Instrument Used: 3mm curette Tissue Removed: subcutaneous tissue. Severity: Fat Layer Exposed Amount of bleeding with debridement: Mild Bleeding Controlled with: Pressure and Compression and gauze Patient tolerated procedure: Patient tolerated procedure well Post-Debridement Measurements and Additional Note: Post-Debridement Measurements/Treatment WC - Nurse 1 - General Ulcer Assessment Start: 04/15/23 15:25 Freq: Status: Active Protocol: BEKA.LOWEXT Activity Type Activity Date Activity User E-sign Co-sign Detail Recorded Client Recorded Date Recorded By Document 04/15/23 15:25 KW Desktop 04/15/23 15:30 KW Document 04/24/23 15:57 DL Desktop 04/24/23 16:05 DL 04/15/23 04/24/23 15:25 15:57 WC - Today's Visit Information Type of service Follow-up Visit Follow-up Visit (Physician/ENLISTED AIRCREW/AERIAL OBSERVER/GUNNER (Physician/ENLISTED AIRCREW/AERIAL OBSERVER/GUNNER ) ) Arrival Mode Ambulatory Ambulatory Transfer Assistance None Accompanied by Patient Identification Verified (Name & Yes Yes ) Patient Requires Transmission-Based No Precautions Vital Signs Temperature (97.8 F-99.1 F) 97.9 F 98.3 F Temperature Source Temporal Temporal Pulse Rate (60-100) 60 60 Pulse Location Monitor Monitor Respiratory Rate (12-18) 18 20 H Respiratory rate source Observation Oxygen Delivery Method Room Air Blood Pressure (90/60-120/80) 170/43 H 236/80 H Blood Pressure Mean (mm Hg) 85 132 Source Monitor Monitor Position Right Lateral Blood Pressure Location Left Forearm History Since Last Visit- (Skip if this is Patient's initial visit) Have you changed medications since your No No last visit? Any new allergies or adverse reactions No No Had a fall/change in ADL's that may No No increase risk of falls Signs or symptoms of abuse and/or No No neglect since last visit Have you been in the hospital since your Yes No last visit? Has dressing in place as prescribed Yes Yes Has compression in place as prescribed N/A N/A Has offloadiing in place as prescribed N/A Yes Experienced any changes in pain level or No No management Left Footwear Regular Shoe Right Footwear Regular Shoe Pain Scale: 0-10 Numeric Is Patient Pain Free? Yes Yes - Nurse 1 - General Ulcer Measurement Start: 04/15/23 15:25 Freq: Status: Active Protocol: Activity Type Activity Date Activity User E-sign Co-sign Detail Recorded Client Recorded Date Recorded By Document 04/15/23 15:25 KW Desktop 04/15/23 15:30 KW Document 04/24/23 15:57 DL Desktop 04/24/23 16:05 DL 04/15/23 04/24/23 15:25 15:57 Wound Center Nurse 1 #8 L Ischial Cluster -Current Size (cm) - Length 1.6 2 -Current Size (cm) - Width 5.4 3.7 -Current Size (cm) - Depth 0.1 0.1 -Total Square Cm 8.64 7.4 -Photo Taken No -Exudate Amt Medium Small -Exudate Type Serosanguineous Serosanguineous -Wound Margin Distinct, Distinct, Outline Outline Attached Attached -Granulation Amt Large (67-100%) Medium (34-66%) -Granulation Quality Red [place] -Necrosis Amt Small (1-33%) Medium (34-66%) -Necrotic Tissue Type Adherent Slough Adherent Slough -Structure Exposed N/A -Texture ([place]-wound Skin Appearance) Assessed Scarring -Moisture ([place]-wound Skin Appearance) Assessed No Abnormality -Color ([place]-wound Skin Appearance) Assessed No Abnormality -Temperature ([place]-wound Skin No Abnormality No Abnormality Appearance) (Pt Warm) (Pt Warm) -Tenderness on Palpation ([place]-wound Yes Skin Appearance) -Ulcer Cleansing Soap and Water Soap and Water -Foul Odor after Cleansing Yes, Due to Product Use -Anesthetic Used 5% Lidocaine 5% Lidocaine Gel Gel Lower Limb Edema Present NA WC - Nurse 2 - General Ulcer CM Notes Start: 04/15/23 15:25 Freq: Status: Active Protocol: Activity Type Activity Date Activity User E-sign Co-sign Detail Recorded Client Recorded Date Recorded By Document 04/15/23 15:39 JF Laptop 04/15/23 15:41 JF Document 04/24/23 16:52 MW Desktop 04/24/23 16:56 MW 04/15/23 04/24/23 15:39 16:52 Wound Center Nurse 2 #8 L Ischial Cluster -Time 15:39 16:53 -Correct Patient Yes Yes -Correct Side, Site, Position Yes Yes -Correct Procedure Yes Yes -Procedure Performed Yes Yes -Type of Procedure Debridement Debridement -Clinical Debridement Subcutaneous Subcutaneous -Tissue Removed Subcutaneous Subcutaneous -Post Debridement (cm) - Length 4.0 3.0 -Post Debridement (cm) - Width 1.4 1.4 -Post Debridement (cm) - Depth 0.1 0.1 -Total Square (Post) (cm) 5.60 4.20 -Area of Debridement (cm) - Length 4.0 3.0 -Area of Debridement (cm) - Width 1.4 1.4 -Total Square (Area) (cm) 5.60 4.20 -Tunneling No No -Undermining/Tunneling No No -Circular Undermining No No -Wound/Ulcer Outcome Not Healed Not Healed -Ulcer Cleansing Rinsed/ Rinsed/ Irrigated with Irrigated with Saline Saline -Foul Odor after Cleansing No No -Bioengineered Tissue No No -Bleeding Controlled with Pressure Pressure -Treatment Response Procedure Procedure Tolerated Well Tolerated Well -Offloading No No -Debridement - Subq, 1st 20sq cm Yes Yes Pain Scale: 0-10 Numeric Is Patient Pain Free? Yes Yes WC - Nurse 3 - General Ulcer D/C NN Start: 04/15/23 15:25 Freq: Status: Active Protocol: Activity Type Activity Date Activity User E-sign Co-sign Detail Recorded Client Recorded Date Recorded By Document 04/15/23 15:46 KW Desktop 04/15/23 15:46 KW Document 04/24/23 17:00 MW Desktop 04/24/23 17:01 MW 04/15/23 04/24/23 15:46 17:00 Wound Care Center Nurse 3 #8 L Ischial Cluster -Ulcer Cleansing Not Cleansed -Foul Odor after Cleansing No -Negative Pressure Wound Therapy N/A -Primary Dressing Applied Mepilex Border, Mepilex Border, Promogran Promogran Jacqueline Matter Jacqueline Matter -Mepilex Border 1 1 -Promogran Jacqueline Matter 1 1 Pain Scale: 0-10 Numeric Is Patient Pain Free? Yes Yes Teaching: Wound Center *Wound/Skin Impairment -Person Taught Patient -Teaching Method Discussion -Response to teaching Verbalize understanding Dressing Your Wound -Person Taught Patient,Family -Teaching Method Discussion -Response to teaching Verbalize understanding WC - Visit Discharge Discharge Condition Stable Stable Ambulatory Status Ambulatory Ambulatory Transportation Private Auto Private Auto Medication Reconcilliation completed & No Yes provided to patient/care provider Clinical Summary of Care Provided Yes Yes Assessment/Plan Assessment/Plan (1) Chronic ulcer of left thigh with fat layer exposed: CODE(S): L97.122 - Non-pressure chronic ulcer of left thigh with fat layer exposed (2) Pressure sore of left ischium, stage 3: CODE(S): L89.323 - Pressure ulcer of left buttock, stage 3 (3) Ulcer of perineum with fat layer exposed: CODE(S): L98.492 - Non-pressure chronic ulcer of skin of other sites with fat layer exposed (4) Skin ulcer of scrotum: CODE(S): N50.89 - Other specified disorders of the male genital organs (5) Suppurative hidradenitis: CODE(S): L73.2 - Hidradenitis suppurativa (6) Diabetes type 2, uncontrolled: CODE(S): E11.65 - Type 2 diabetes mellitus with hyperglycemia QUALIFIERS: Glycemic state: with hyperglycemia Qualified Code(s): E11.65 - Type 2 diabetes mellitus with hyperglycemia (7) Hemoglobin A1c greater than 8.0 percent: CODE(S): R73.09 - Other abnormal glucose (8) Smoker: CODE(S): F17.200 - Nicotine dependence, unspecified, uncomplicated PLAN: Plan Continue Jacqueline to the left ischial ulcer. The right groin ulcer remains healed. Encouraged increase protein intake and increase Vitamin C intake. Will need supplemental protein to help heal this ulcer. His last Prealbumin from 04/23/22 was 19.8. Encouraged patient to stop smoking as it may have deleterious effects on wound healing. At the time of surgical debridement, will obtain a culture. A positive culture will necessitate antibiotic therapy. Patient sees dermatology who is managing the medical portion of his hidradenitis. His next surgery will be excision hidradenitis right perianal and perineal area and left ischial/proximal posterior thigh ulcer. The ulcer would be skin grafted. The hidradenitis ulcers will be left open and packed with Dakin's or Silver dressings. May not be able to maintain a seal with the VAC. His Creatinine was 3.07 on 02/18/23. The Potassium was 3.1 on 02/18/23. Hgb was 9.7 on 02/18/23. His Creatinine was 1.56 on 04/23/22. Since then it has ranged from a low of 2.38 on 10/09/22 to a high of 3.65 on 02/13/23. His PCP is managing the Creatinine. It needs to be trending downward before proceeding with the surgery. Patient is diabetic. His last HgbA1c was 8.5 on 03/01/23. For elective surgeries, the HgbA1c needs to be less than 8. A wound culture was obtained on 04/01/23. It was positive for Klebsiella aerogenes, Staphylococcus aureus, and Anaerobic cocci. He was started on Doxycycline and Flagyl. The Flagyl is finished. He had stomach issues with the Doxycycline. Continue the Levaquin which should cover the Staphylococcus aureus. Follow up one week. Will schedule surgical preparation right perineal and perianal areas with excision hidradenitis as well as excision left ischial/proximal posterior thigh ulcer next month. Will leave the wound open and proceed with wound care with Dakin's dressing changes. May not be able to maintain a seal if the VAC is used. May skin graft the left ischial/proximal posterior thigh ulcer. Patient was informed of the risks and complications of the procedure including alternatives to surgery. These were discussed with the patient personally. Patient voices understanding and wishes to proceed. Potential risks and complications included but not inclusive of bleeding, infection, seroma, hematoma, bruising, swelling, possible loss of skin graft, need for wound care, poor scarring, poor aesthetic outcome, intra operative cardiac or neurologic events, DVT, PE, and reaction to anesthesia.
[2023-05-01 15:20] VITALS: BP 198/56; PULSE 65; RESP 16; TEMP 36.7
--- NOTE | 2023-05-01 17:17 | PN.PCM_ITS ---
History of Present Illness Date of Service: 05/01/23 Chief Complaint: Nonhealing hidradenitis right perineal and perianal areas and nonhealing ulcer left ischial (proximal posterior thigh) area History of Wound: 57 year old male who has a history significant for hidradenitis, DM type II, HTN, CAD, arterial insufficiency, and smoker. He had surgery on 11/23/21 for 1. Surgical preparation right inguinal area with excision suppurative hidradenitis abscess (112 cm2, and 192 cm2 total). 2. Surgical preparation right scrotum with incision and drainage and excision suppurative hidradenitis abscess (50 cm2, and 192 cm2 total). 3. Surgical preparation right perineal area with excision suppurative hidradenitis abscess (30 cm2, and 192 cm2 total). Operative wound cultures from 11/23/21 positive for Streptococcus constellatus and Corynebacterium striatum. He was placed on Cefdinir and has finished them. A wound culture was obtained on 04/01/23. It was positive for Klebsiella aerogenes, Staphylococcus aureus, and Anaerobic cocci. He was started on Doxycycline and Flagyl. The Flagyl is done. He had stomach issues when on the Doxycycline. He is currently on Levaquin. Wound care - Jacqueline. Today he denies fevers, chills, nausea and vomiting. He states that he has a good appetite. The pain in the left ischial (proximal posterior thigh) ulcer has improved. He's had intermittent hidradenitis flare-ups in his right perineal and perianal areas in the Fall. Recently those areas have been stable. Prealbumin from 04/23/22 was 19.8. Encourage nutritional supplementation with protein to help the healing process. Patient is diabetic. His HgbA1c from 03/01/23 was 8.5. For elective surgeries, the HgbA1c needs to be less than 8. He came to the [facility] on 02/18/23 and was sent to the ED because his systolic BP was 235/99 and he was having visual problems. He was worked up and released home with a change in one of his BP meds (Carvedilol) and stopping one (Clonidine). His next appointment with the [facility] is in April. Progress of Wound: Improved. Objective Data Objective Data Vital Signs: Vital Signs Temp Pulse Resp BP O2 Del Method 98.0 F 65 16 198/56 H Room Air 05/01/23 15:20 05/01/23 15:20 05/01/23 15:20 05/01/23 15:20 05/01/23 15:20 Oxygen Delivery Method Room Air Prealbumin from 04/23/22 was 19.8. Encourage nutritional supplementation with protein to help the healing process. Lab / Micro Data Attestation: I reviewed the patient's lab results. Lab results narrative: Patient has diabetes mellitus. His HgbA1c from 03/01/23 was 8.5. For elective surgeries, the HgbA1c needs to be less than 8. Micro: Microbiology 04/01/23 15:10 Wound - Ischium Gram Stain - Final 04/01/23 15:10 Wound - Ischium Wound Culture - Final Klebsiella aerogenes Staphylococcus aureus 04/01/23 15:10 Wound - Ischium Anaerobic Culture - Final Anaerobic cocci He was started on Doxycycline and Flagyl. The Flagyl is finished. He had stomach issues with the Doxycycline. Continue the Levaquin which should cover the Staphylococcus aureus. Charges/Coding Procedures Integumentary [id number]: [id number] Ayla subq tissue 20 sq cm/< (ICD-10 - L97.122, L89.323, L98.492, N50.89, L73.2, E11.65, R73.09, F17.200) Debridement Note Debridement Note Wound debrided: #8 Left ischial/proximal posterior thigh area. Laterality: Left Wound Grade/Stage: 3. Type of Debridement: Excisional debridement Anesthesia Used: 5% Lidocaine Gel Depth: Down to and including healthy tissue and in the subcutaneous layer Percentage of wound debrided: 100 Instrument Used: 3mm curette Tissue Removed: subcutaneous tissue. Severity: Fat Layer Exposed Amount of bleeding with debridement: Mild Bleeding Controlled with: Pressure and Compression and gauze Patient tolerated procedure: Patient tolerated procedure well Post-Debridement Measurements and Additional Note: Post-Debridement Measurements/Treatment WC - Nurse 1 - General Ulcer Assessment Start: 04/15/23 15:25 Freq: Status: Active Protocol: BEKA.LOWEXT Activity Type Activity Date Activity User E-sign Co-sign Detail Recorded Client Recorded Date Recorded By Document 04/15/23 15:25 KW Desktop 04/15/23 15:30 KW Document 04/24/23 15:57 DL Desktop 04/24/23 16:05 DL Document 05/01/23 15:20 MW Desktop 05/01/23 15:21 MW 04/15/23 04/24/23 05/01/23 15:25 15:57 15:20 WC - Today's Visit Information Type of service Follow-up Visit Follow-up Visit Follow-up Visit (Physician/JUICE PACKAGING MACHINES SETTER (Physician/JUICE PACKAGING MACHINES SETTER (Physician/JUICE PACKAGING MACHINES SETTER ) ) ) Arrival Mode Ambulatory Ambulatory Ambulatory Transfer Assistance None None Accompanied by Patient Identification Verified (Name & Yes Yes Yes ) Patient Requires Transmission-Based No No Precautions Safety Precautions NA Vital Signs Temperature (97.8 F-99.1 F) 97.9 F 98.3 F 98.0 F Temperature Source Temporal Temporal Temporal Pulse Rate (60-100) 60 60 65 Pulse Location Monitor Monitor Monitor Respiratory Rate (12-18) 18 20 H 16 Respiratory rate source Observation Observation Oxygen Delivery Method Room Air Room Air Blood Pressure (90/60-120/80) 170/43 H 236/80 H 198/56 H Blood Pressure Mean (mm Hg) 85 132 103 Source Monitor Monitor Monitor Position Right Lateral Sitting Blood Pressure Location Left Forearm Left Arm History Since Last Visit- (Skip if this is Patient's initial visit) Have you changed medications since your No No No last visit? Any new allergies or adverse reactions No No No Had a fall/change in ADL's that may No No No increase risk of falls Signs or symptoms of abuse and/or No No No neglect since last visit Have you been in the hospital since your Yes No No last visit? Has dressing in place as prescribed Yes Yes Yes Has compression in place as prescribed N/A N/A N/A Has offloadiing in place as prescribed N/A Yes N/A Experienced any changes in pain level or No No No management Left Footwear Regular Shoe Regular Shoe Right Footwear Regular Shoe Regular Shoe Pain Scale: 0-10 Numeric Is Patient Pain Free? Yes Yes Yes - Nurse 1 - General Ulcer Measurement Start: 04/15/23 15:25 Freq: Status: Active Protocol: Activity Type Activity Date Activity User E-sign Co-sign Detail Recorded Client Recorded Date Recorded By Document 04/15/23 15:25 KW Desktop 04/15/23 15:30 KW Document 04/24/23 15:57 DL Desktop 04/24/23 16:05 DL Document 05/01/23 15:20 MW Desktop 05/01/23 15:21 MW 04/15/23 04/24/23 05/01/23 15:25 15:57 15:20 Wound Center Nurse 1 #8 L Ischial Cluster -Combined with other wound No -Current Size (cm) - Length 1.6 2 1.2 -Current Size (cm) - Width 5.4 3.7 3.3 -Current Size (cm) - Depth 0.1 0.1 0.1 -Total Square Cm 8.64 7.4 3.96 -Photo Taken No No -Epithelialization Small 1-33% -Tunneling No -Undermining/Tunneling No -Circular Undermining No -Exudate Amt Medium Small Medium -Exudate Type Serosanguineous Serosanguineous Serosanguineous -Wound Margin Distinct, Distinct, Flat & Intact Outline Outline Attached Attached -Granulation Amt Large (67-100%) Medium (34-66%) Large (67-100%) -Granulation Quality Red Leupp Leupp -Slough/Fibrin Yes -Necrosis Amt Small (1-33%) Medium (34-66%) None Present (0 %) -Necrotic Tissue Type Adherent Slough Adherent Slough Adherent Slough -Structure Exposed N/A N/A -Texture (Abimbola-wound Skin Appearance) Assessed Scarring Assessed, Scarring -Moisture (Abimbola-wound Skin Appearance) Assessed No Abnormality No Abnormality, Assessed -Color (Abimbola-wound Skin Appearance) Assessed No Abnormality No Abnormality, Assessed -Temperature (Abimbola-wound Skin No Abnormality No Abnormality No Abnormality Appearance) (Pt Warm) (Pt Warm) (Pt Warm) -Tenderness on Palpation (Abimbola-wound Yes No Skin Appearance) -Ulcer Cleansing Soap and Water Soap and Water Rinsed/ Irrigated with Saline -Foul Odor after Cleansing Yes, Due to No Product Use -Anesthetic Used 5% Lidocaine 5% Lidocaine 4% Lidocaine Gel Gel Solution Lower Limb Edema Present NA WC - Nurse 2 - General Ulcer CM Notes Start: 04/15/23 15:25 Freq: Status: Active Protocol: Activity Type Activity Date Activity User E-sign Co-sign Detail Recorded Client Recorded Date Recorded By Document 04/15/23 15:39 JF Laptop 04/15/23 15:41 Document 04/24/23 16:52 MW Desktop 04/24/23 16:56 MW Document 05/01/23 15:22 MW Desktop 05/01/23 15:33 MW 04/15/23 04/24/23 05/01/23 15:39 16:52 15:22 Wound Center Nurse 2 #8 L Ischial Cluster -Time 15:39 16:53 15:23 -Correct Patient Yes Yes Yes -Correct Side, Site, Position Yes Yes Yes -Correct Procedure Yes Yes Yes -Procedure Performed Yes Yes Yes -Type of Procedure Debridement Debridement Debridement -Clinical Debridement Subcutaneous Subcutaneous Subcutaneous -Tissue Removed Subcutaneous Subcutaneous Subcutaneous -Post Debridement (cm) - Length 4.0 3.0 2.4 -Post Debridement (cm) - Width 1.4 1.4 0.9 -Post Debridement (cm) - Depth 0.1 0.1 0.1 -Total Square (Post) (cm) 5.60 4.20 2.16 -Area of Debridement (cm) - Length 4.0 3.0 2.4 -Area of Debridement (cm) - Width 1.4 1.4 0.9 -Total Square (Area) (cm) 5.60 4.20 2.16 -Tunneling No No No -Undermining/Tunneling No No No -Circular Undermining No No No -Wound/Ulcer Outcome Not Healed Not Healed Not Healed -Ulcer Cleansing Rinsed/ Rinsed/ Rinsed/ Irrigated with Irrigated with Irrigated with Saline Saline Saline -Foul Odor after Cleansing No No No -Bioengineered Tissue No No No -Bleeding Controlled with Pressure Pressure Pressure -Treatment Response Procedure Procedure Procedure Tolerated Well Tolerated Well Tolerated Well -Offloading No No No -Debridement - Subq, 1st 20sq cm Yes Yes Yes Pain Scale: 0-10 Numeric Is Patient Pain Free? Yes Yes Yes WC - Nurse 3 - General Ulcer D/C NN Start: 04/15/23 15:25 Freq: Status: Active Protocol: Activity Type Activity Date Activity User E-sign Co-sign Detail Recorded Client Recorded Date Recorded By Document 04/15/23 15:46 KW Desktop 04/15/23 15:46 KW Document 04/24/23 17:00 MW Desktop 04/24/23 17:01 MW Document 05/01/23 15:34 MW Desktop 05/01/23 15:35 MW 04/15/23 04/24/23 05/01/23 15:46 17:00 15:34 Wound Care Center Nurse 3 #8 L Ischial Cluster -Ulcer Cleansing Not Cleansed Rinsed/ Irrigated with Saline -Foul Odor after Cleansing No No -Negative Pressure Wound Therapy N/A N/A -Primary Dressing Applied Mepilex Border, Mepilex Border, Mepilex Border, Promogran Promogran Promogran Jacqueline Matter Jacqueline Matter Jacqueline Matter -Mepilex Border 1 1 1 -Promogran Jacqueline Matter 1 1 1 Treatment Response Procedure Tolerated Well Pain Scale: 0-10 Numeric Is Patient Pain Free? Yes Yes Yes Teaching: Wound Center *Wound/Skin Impairment -Person Taught Patient -Teaching Method Discussion -Response to teaching Verbalize understanding Dressing Your Wound -Person Taught Patient,Family Patient,Family -Teaching Method Discussion Discussion, Demonstration -Response to teaching Verbalize Verbalize understanding understanding WC - Visit Discharge Discharge Condition Stable Stable Stable Ambulatory Status Ambulatory Ambulatory Ambulatory Transportation Private Auto Private Auto Private Auto Accompanied by Medication Reconcilliation completed & No Yes No provided to patient/care provider Clinical Summary of Care Provided Yes Yes Yes Assessment/Plan Assessment/Plan (1) Chronic ulcer of left thigh with fat layer exposed: CODE(S): L97.122 - Non-pressure chronic ulcer of left thigh with fat layer exposed (2) Pressure sore of left ischium, stage 3: CODE(S): L89.323 - Pressure ulcer of left buttock, stage 3 (3) Ulcer of perineum with fat layer exposed: CODE(S): L98.492 - Non-pressure chronic ulcer of skin of other sites with fat layer exposed (4) Skin ulcer of scrotum: CODE(S): N50.89 - Other specified disorders of the male genital organs (5) Suppurative hidradenitis: CODE(S): L73.2 - Hidradenitis suppurativa (6) Diabetes type 2, uncontrolled: CODE(S): E11.65 - Type 2 diabetes mellitus with hyperglycemia QUALIFIERS: Glycemic state: with hyperglycemia Qualified Code(s): E11.65 - Type 2 diabetes mellitus with hyperglycemia (7) Hemoglobin A1c greater than 8.0 percent: CODE(S): R73.09 - Other abnormal glucose (8) Smoker: CODE(S): F17.200 - Nicotine dependence, unspecified, uncomplicated PLAN: Plan Continue Jacqueline to the left ischial ulcer. The right groin ulcer remains healed. Encouraged increase protein intake and increase Vitamin C intake. Will need supplemental protein to help heal this ulcer. His last Prealbumin from 04/23/22 was 19.8. Encouraged patient to stop smoking as it may have deleterious effects on wound healing. At the time of surgical debridement, will obtain a culture. A positive culture will necessitate antibiotic therapy. Patient sees dermatology who is managing the medical portion of his h idradenitis. His next surgery will be excision hidradenitis right perianal and perineal area and left ischial/proximal posterior thigh ulcer. The ulcer would be skin grafted. The hidradenitis ulcers will be left open and packed with Dakin's or Silver dressings. May not be able to maintain a seal with the VAC. His Creatinine was 3.07 on 02/18/23. The Potassium was 3.1 on 02/18/23. Hgb was 9.7 on 02/18/23. His Creatinine was 1.56 on 04/23/22. Since then it has ranged from a low of 2.38 on 10/09/22 to a high of 3.65 on 02/13/23. His PCP is managing the Creatinine. It needs to be trending downward before proceeding with the surgery. Patient is diabetic. His last HgbA1c was 8.5 on 03/01/23. For elective surgeries, the HgbA1c needs to be less than 8. A wound culture was obtained on 04/01/23. It was positive for Klebsiella aerogenes, Staphylococcus aureus, and Anaerobic cocci. He was started on Doxycycline and Flagyl. The Flagyl is finished. He had stomach issues with the Doxycycline. Continue the Levaquin which should cover the Staphylococcus aureus. Will schedule surgical preparation right perineal and perianal areas with excision hidradenitis as well as excision left ischial/proximal posterior thigh ulcer next month. Will leave the wound open and proceed with wound care with Dakin's dressing changes. May not be able to maintain a seal if the VAC is used. May skin graft the left ischial/proximal posterior thigh ulcer. Patient was informed of the risks and complications of the procedure including alternatives to surgery. These were discussed with the patient personally. Patient voices understanding and wishes to proceed. Potential risks and complications included but not inclusive of bleeding, infection, seroma, hematoma, bruising, swelling, possible loss of skin graft, need for wound care, poor scarring, poor aesthetic outcome, intra operative cardiac or neurologic events, DVT, PE, and reaction to anesthesia. The surgery is scheduled for 05/15/23. Followup one week.
[2023-05-08 15:17] VITALS: BP 240/88; PULSE 72; RESP 18; TEMP 35.6
[2023-05-08 15:32] VITALS: BP 217/70
--- NOTE | 2023-05-08 22:25 | PCM.WC.PN ---
History of Present Illness Date of Service: 05/08/23 Chief Complaint: Nonhealing hidradenitis right perineal and perianal areas and nonhealing ulcer left ischial (proximal posterior thigh) area History of Wound: 57 year old male who has a history significant for hidradenitis, DM type II, HTN, CAD, arterial insufficiency, and smoker. He had surgery on 11/23/21 for 1. Surgical preparation right inguinal area with excision suppurative hidradenitis abscess (112 cm2, and 192 cm2 total). 2. Surgical preparation right scrotum with incision and drainage and excision suppurative hidradenitis abscess (50 cm2, and 192 cm2 total). 3. Surgical preparation right perineal area with excision suppurative hidradenitis abscess (30 cm2, and 192 cm2 total). Operative wound cultures from 11/23/21 positive for Streptococcus constellatus and Corynebacterium striatum. He was placed on Cefdinir and has finished them. A wound culture was obtained on 04/01/23. It was positive for Klebsiella aerogenes, Staphylococcus aureus, and Anaerobic cocci. He was started on Doxycycline and Flagyl. The Flagyl is done. He had stomach issues when on the Doxycycline. He has finished the Levaquin. Wound care - Jacqueline. Today he denies fevers, chills, nausea and vomiting. He states that he has a good appetite. The pain in the left ischial (proximal posterior thigh) ulcer has improved. He's had intermittent hidradenitis flare-ups in his right perineal and perianal areas in the Fall. Recently those areas have been stable. Prealbumin from 04/23/22 was 19.8. Encourage nutritional supplementation with protein to help the healing process. Patient is diabetic. His HgbA1c from 03/01/23 was 8.5. For elective surgeries, the HgbA1c needs to be less than 8. He came to [facility] on 02/18/23 and was sent to the ED because his systolic BP was 235/99 and he was having visual problems. He was worked up and released home with a change in one of his BP meds (Carvedilol) and stopping one (Clonidine). He is in the process of getting glasses. Progress of Wound: Improved. Objective Data Objective Data Vital Signs: Vital Signs Temp Pulse Resp BP O2 Del Method 96.1 F L 72 18 217/70 H Room Air 05/08/23 15:17 05/08/23 15:17 05/08/23 15:17 05/08/23 15:32 05/08/23 15:17 Oxygen Delivery Method Room Air Prealbumin from 04/23/22 was 19.8. Encourage nutritional supplementation with protein to help the healing process. Lab / Micro Data Attestation: I reviewed the patient's lab results. Lab results narrative: Patient has diabetes mellitus. His HgbA1c from 03/01/23 was 8.5. For elective surgeries, the HgbA1c needs to be less than 8. Micro: Microbiology 04/01/23 15:10 Wound - Ischium Gram Stain - Final 04/01/23 15:10 Wound - Ischium Wound Culture - Final Klebsiella aerogenes Staphylococcus aureus 04/01/23 15:10 Wound - Ischium Anaerobic Culture - Final Anaerobic cocci He was started on Doxycycline and Flagyl. The Flagyl is finished. He had stomach issues with the Doxycycline. Continued the Levaquin which should cover the Staphylococcus aureus and has finished them. Charges/Coding Procedures Integumentary [id number]: [id number] Ayla subq tissue 20 sq cm/< (ICD-10 - L97.122, L89.323, L98.492, N50.89, L73.2, E11.65, R73.09, F17.200) Debridement Note Debridement Note Wound debrided: #8 Left ischial/proximal posterior thigh area. Laterality: Left Wound Grade/Stage: 3. Type of Debridement: Excisional debridement Anesthesia Used: 5% Lidocaine Gel Depth: Down to and including healthy tissue and in the subcutaneous layer Percentage of wound debrided: 100 Instrument Used: 3mm curette Tissue Removed: subcutaneous tissue. Severity: Fat Layer Exposed Amount of bleeding with debridement: Mild Bleeding Controlled with: Pressure and Compression and gauze Patient tolerated procedure: Patient tolerated procedure well Post-Debridement Measurements and Additional Note: Post-Debridement Measurements/Treatment WC - Nurse 1 - General Ulcer Assessment Start: 04/15/23 15:25 Freq: Status: Active Protocol: ROC Activity Type Activity Date Activity User E-sign Co-sign Detail Recorded Client Recorded Date Recorded By Document 04/15/23 15:25 KW Desktop 04/15/23 15:30 KW Document 04/24/23 15:57 DL Desktop 04/24/23 16:05 DL Document 05/01/23 15:20 MW Desktop 05/01/23 15:21 MW Document 05/08/23 15:17 MW Desktop 05/08/23 15:23 MW 04/15/23 04/24/23 05/01/23 15:25 15:57 15:20 WC - Today's Visit Information Type of service Follow-up Visit Follow-up Visit Follow-up Visit (Physician/SUBSTATION OPERATOR APPRENTICE (Physician/SUBSTATION OPERATOR APPRENTICE (Physician/SUBSTATION OPERATOR APPRENTICE ) ) ) Arrival Mode Ambulatory Ambulatory Ambulatory Transfer Assistance None None Accompanied by Patient Identification Verified (Name & Yes Yes Yes ) Patient Requires Transmission-Based No No Precautions Safety Precautions NA Vital Signs Temperature (97.8 F-99.1 F) 97.9 F 98.3 F 98.0 F Temperature Source Temporal Temporal Temporal Pulse Rate (60-100) 60 60 65 Pulse Location Monitor Monitor Monitor Respiratory Rate (12-18) 18 20 H 16 Respiratory rate source Observation Observation Oxygen Delivery Method Room Air Room Air Blood Pressure (90/60-120/80) 170/43 H 236/80 H 198/56 H Blood Pressure Mean (mm Hg) 85 132 103 Source Monitor Monitor Monitor Position Right Lateral Sitting Blood Pressure Location Left Forearm Left Arm History Since Last Visit- (Skip if this is Patient's initial visit) Have you changed medications since your No No No last visit? Any new allergies or adverse reactions No No No Had a fall/change in ADL's that may No No No increase risk of falls Signs or symptoms of abuse and/or No No No neglect since last visit Have you been in the hospital since your Yes No No last visit? Has dressing in place as prescribed Yes Yes Yes Has compression in place as prescribed N/A N/A N/A Has offloadiing in place as prescribed N/A Yes N/A Experienced any changes in pain level or No No No management Left Footwear Regular Shoe Regular Shoe Right Footwear Regular Shoe Regular Shoe Pain Scale: 0-10 Numeric Is Patient Pain Free? Yes Yes Yes 05/08/23 15:17 WC - Today's Visit Information Type of service Follow-up Visit (Physician/SUBSTATION OPERATOR APPRENTICE ) Arrival Mode Ambulatory Transfer Assistance None Accompanied by Patient Identification Verified (Name & Yes ) Patient Requires Transmission-Based No Precautions Safety Precautions Fall Prevention Vital Signs Temperature (97.8 F-99.1 F) 96.1 F L Temperature Source Temporal Pulse Rate (60-100) 72 Pulse Location Monitor Respiratory Rate (12-18) 18 Respiratory rate source Observation Oxygen Delivery Method Room Air Blood Pressure (90/60-120/80) 240/88 H Blood Pressure Mean (mm Hg) 138 Source Monitor Position Sitting Blood Pressure Location Left Arm History Since Last Visit- (Skip if this is Patient's initial visit) Have you changed medications since your No last visit? Any new allergies or adverse reactions No Had a fall/change in ADL's that may increase risk of falls Signs or symptoms of abuse and/or No neglect since last visit Have you been in the hospital since your No last visit? Has dressing in place as prescribed Yes Has compression in place as prescribed N/A Has offloadiing in place as prescribed N/A Experienced any changes in pain level or No management Left Footwear Regular Shoe Right Footwear Regular Shoe Pain Scale: 0-10 Numeric Is Patient Pain Free? Yes WC - Nurse 1 - General Ulcer Measurement Start: 04/15/23 15:25 Freq: Status: Active Protocol: Activity Type Activity Date Activity User E-sign Co-sign Detail Recorded Client Recorded Date Recorded By Document 04/15/23 15:25 KW Desktop 04/15/23 15:30 KW Document 04/24/23 15:57 DL Desktop 04/24/23 16:05 DL Document 05/01/23 15:20 MW Desktop 05/01/23 15:21 MW Document 05/08/23 15:17 MW Desktop 05/08/23 15:23 MW 04/15/23 04/24/23 05/01/23 15:25 15:57 15:20 Wound Center Nurse 1 #8 L Ischial Cluster -Combined with other wound No -Current Size (cm) - Length 1.6 2 1.2 -Current Size (cm) - Width 5.4 3.7 3.3 -Current Size (cm) - Depth 0.1 0.1 0.1 -Total Square Cm 8.64 7.4 3.96 -Photo Taken No No -Epithelialization Small 1-33% -Tunneling No -Undermining/Tunneling No -Circular Undermining No -Exudate Amt Medium Small Medium -Exudate Type Serosanguineous Serosanguineous Serosanguineous -Wound Margin Distinct, Distinct, Flat & Intact Outline Outline Attached Attached -Granulation Amt Large (67-100%) Medium (34-66%) Large (67-100%) -Granulation Quality Red [place] -Slough/Fibrin Yes -Necrosis Amt Small (1-33%) Medium (34-66%) None Present (0 %) -Necrotic Tissue Type Adherent Slough Adherent Slough Adherent Slough -Structure Exposed N/A N/A -Texture ([place]-wound Skin Appearance) Assessed Scarring Assessed, Scarring -Moisture ([place]-wound Skin Appearance) Assessed No Abnormality No Abnormality, Assessed -Color ([place]-wound Skin Appearance) Assessed No Abnormality No Abnormality, Assessed -Temperature ([place]-wound Skin No Abnormality No Abnormality No Abnormality Appearance) (Pt Warm) (Pt Warm) (Pt Warm) -Tenderness on Palpation ([place]-wound Yes No Skin Appearance) -Ulcer Cleansing Soap and Water Soap and Water Rinsed/ Irrigated with Saline -Foul Odor after Cleansing Yes, Due to No Product Use -Anesthetic Used 5% Lidocaine 5% Lidocaine 4% Lidocaine Gel Gel Solution Lower Limb Edema Present NA 05/08/23 15:17 Wound Center Nurse 1 #8 L Ischial Cluster -Combined with other wound No -Current Size (cm) - Length 0.9 -Current Size (cm) - Width 2.6 -Current Size (cm) - Depth 0.1 -Total Square Cm 2.34 -Photo Taken No -Epithelialization Medium 34-66% -Tunneling No -Undermining/Tunneling No -Circular Undermining No -Exudate Amt Small -Exudate Type Serosanguineous -Wound Margin Flat & Intact -Granulation Amt Large (67-100%) -Granulation Quality [place] -Slough/Fibrin Yes -Necrosis Amt Small (1-33%) -Necrotic Tissue Type Adherent Slough -Structure Exposed N/A -Texture ([place]imbola-wound Skin Appearance) Assessed, Scarring -Moisture ([place]ola-wound Skin Appearance) No Abnormality, Assessed -Color ([place]imbola-wound Skin Appearance) No Abnormality, Assessed -Temperature ([place]-wound Skin No Abnormality Appearance) (Pt Warm) -Tenderness on Palpation ([place]-wound No Skin Appearance) -Ulcer Cleansing Rinsed/ Irrigated with Saline -Foul Odor after Cleansing No -Anesthetic Used 5% Lidocaine Gel Lower Limb Edema Present No WC - Nurse 2 - General Ulcer CM Notes Start: 04/15/23 15:25 Freq: Status: Active Protocol: Activity Type Activity Date Activity User E-sign Co-sign Detail Recorded Client Recorded Date Recorded By Document 04/15/23 15:39 JF Laptop 04/15/23 15:41 JF Document 04/24/23 16:52 MW Desktop 04/24/23 16:56 MW Document 05/01/23 15:22 MW Desktop 05/01/23 15:33 MW Document 05/08/23 15:25 MW Desktop 05/08/23 15:32 MW 04/15/23 04/24/23 05/01/23 15:39 16:52 15:22 Wound Center Nurse 2 #8 L Ischial Cluster -Time 15:39 16:53 15:23 -Correct Patient Yes Yes Yes -Correct Side, Site, Position Yes Yes Yes -Correct Procedure Yes Yes Yes -Procedure Performed Yes Yes Yes -Type of Procedure Debridement Debridement Debridement -Clinical Debridement Subcutaneous Subcutaneous Subcutaneous -Tissue Removed Subcutaneous Subcutaneous Subcutaneous -Post Debridement (cm) - Length 4.0 3.0 2.4 -Post Debridement (cm) - Width 1.4 1.4 0.9 -Post Debridement (cm) - Depth 0.1 0.1 0.1 -Total Square (Post) (cm) 5.60 4.20 2.16 -Area of Debridement (cm) - Length 4.0 3.0 2.4 -Area of Debridement (cm) - Width 1.4 1.4 0.9 -Total Square (Area) (cm) 5.60 4.20 2.16 -Tunneling No No No -Undermining/Tunneling No No No -Circular Undermining No No No -Wound/Ulcer Outcome Not Healed Not Healed Not Healed -Ulcer Cleansing Rinsed/ Rinsed/ Rinsed/ Irrigated with Irrigated with Irrigated with Saline Saline Saline -Foul Odor after Cleansing No No No -Bioengineered Tissue No No No -Bleeding Controlled with Pressure Pressure Pressure -Treatment Response Procedure Procedure Procedure Tolerated Well Tolerated Well Tolerated Well -Offloading No No No -Debridement - Subq, 1st 20sq cm Yes Yes Yes Pain Scale: 0-10 Numeric Is Patient Pain Free? Yes Yes Yes 05/08/23 15:25 Wound Center Nurse 2 #8 L Ischial Cluster -Time 15:25 -Correct Patient -Correct Side, Site, Position Yes -Correct Procedure Yes -Procedure Performed Yes -Type of Procedure Debridement -Clinical Debridement Subcutaneous -Tissue Removed Subcutaneous -Post Debridement (cm) - Length 1.0 -Post Debridement (cm) - Width 2.7 -Post Debridement (cm) - Depth 0.1 -Total Square (Post) (cm) 2.70 -Area of Debridement (cm) - Length 1.0 -Area of Debridement (cm) - Width 2.7 -Total Square (Area) (cm) 2.70 -Tunneling No -Undermining/Tunneling No -Circular Undermining No -Wound/Ulcer Outcome Not Healed -Ulcer Cleansing Rinsed/ Irrigated with Saline -Foul Odor after Cleansing No -Bioengineered Tissue No -Bleeding Controlled with Pressure -Treatment Response Procedure Tolerated Well -Offloading No -Debridement - Subq, 1st 20sq cm Yes Pain Scale: 0-10 Numeric Is Patient Pain Free? Yes WC - Nurse 3 - General Ulcer D/C NN Start: 04/15/23 15:25 Freq: Status: Active Protocol: Activity Type Activity Date Activity User E-sign Co-sign Detail Recorded Client Recorded Date Recorded By Document 04/15/23 15:46 KW Desktop 04/15/23 15:46 KW Document 04/24/23 17:00 MW Desktop 04/24/23 17:01 MW Document 05/01/23 15:34 MW Desktop 05/01/23 15:35 MW Document 05/08/23 15:32 MW Desktop 05/08/23 15:33 MW 04/15/23 04/24/23 05/01/23 15:46 17:00 15:34 Wound Care Center Nurse 3 #8 L Ischial Cluster -Ulcer Cleansing Not Cleansed Rinsed/ Irrigated with Saline -Foul Odor after Cleansing No No -Negative Pressure Wound Therapy N/A N/A -Primary Dressing Applied Mepilex Border, Mepilex Border, Mepilex Border, Promogran Promogran Promogran Jacqueline Matter Jacqueline Matter Jacqueline Matter -Mepilex Border 1 1 1 -Promogran Jacqueline Matter 1 1 1 Treatment Response Procedure Tolerated Well Vital Signs Blood Pressure (90/60-120/80) Blood Pressure Mean (mm Hg) Source Position Blood Pressure Location Pain Scale: 0-10 Numeric Is Patient Pain Free? Yes Yes Yes Teaching: Wound Center elevated BP -Person Taught -Teaching Method -Response to teaching *Wound/Skin Impairment -Person Taught Patient -Teaching Method Discussion -Response to teaching Verbalize understanding Dressing Your Wound -Person Taught Patient,Family Patient,Family -Teaching Method Discussion Discussion, Demonstration -Response to teaching Verbalize Verbalize understanding understanding WC - Visit Discharge Discharge Condition Stable Stable Stable Ambulatory Status Ambulatory Ambulatory Ambulatory Transportation Private Auto Private Auto Private Auto Accompanied by Medication Reconcilliation completed & No Yes No provided to patient/care provider Clinical Summary of Care Provided Yes Yes Yes 05/08/23 15:32 Wound Care Center Nurse 3 #8 L Ischial Cluster -Ulcer Cleansing Rinsed/ Irrigated with Saline -Foul Odor after Cleansing No -Negative Pressure Wound Therapy N/A -Primary Dressing Applied Mepilex Border, Promogran Jacqueline Matter -Mepilex Border 1 -Promogran Jacqueline Matter 1 Treatment Response Procedure Tolerated Well Vital Signs Blood Pressure (90/60-120/80) 217/70 H Blood Pressure Mean (mm Hg) 119 Source Monitor Position Supine Blood Pressure Location Left Arm Pain Scale: 0-10 Numeric Is Patient Pain Free? Yes Teaching: Wound Center elevated BP -Person Taught Patient,Family -Teaching Method Discussion -Response to teaching Verbalize understanding *Wound/Skin Impairment -Person Taught -Teaching Method -Response to teaching Dressing Your Wound -Person Taught -Teaching Method -Response to teaching WC - Visit Discharge Discharge Condition Stable Ambulatory Status Ambulatory Transportation Private Auto Accompanied by Medication Reconcilliation completed & Yes provided to patient/care provider Clinical Summary of Care Provided No Assessment/Plan Assessment/Plan (1) Chronic ulcer of left thigh with fat layer exposed: CODE(S): L97.122 - Non-pressure chronic ulcer of left thigh with fat layer exposed (2) Pressure sore of left ischium, stage 3: CODE(S): L89.323 - Pressure ulcer of left buttock, stage 3 (3) Ulcer of perineum with fat layer exposed: CODE(S): L98.492 - Non-pressure chronic ulcer of skin of other sites with fat layer exposed (4) Skin ulcer of scrotum: CODE(S): N50.89 - Other specified disorders of the male genital organs (5) Suppurative hidradenitis: CODE(S): L73.2 - Hidradenitis suppurativa (6) Diabetes type 2, uncontrolled: CODE(S): E11.65 - Type 2 diabetes mellitus with hyperglycemia QUALIFIERS: Glycemic state: with hyperglycemia Qualified Code(s): E11.65 - Type 2 diabetes mellitus with hyperglycemia (7) Hemoglobin A1c greater than 8.0 percent: CODE(S): R73.09 - Other abnormal glucose (8) Smoker: CODE(S): F17.200 - Nicotine dependence, unspecified, uncomplicated PLAN: Plan Continue Jacqueline to the left ischial ulcer. The right groin ulcer remains healed. Encouraged increase protein intake and increase Vitamin C intake. Will need supplemental protein to help heal this ulcer. His last Prealbumin from 04/23/22 was 19.8. Encouraged patient to stop smoking as it may have deleterious effects on wound healing. At the time of surgical debridement, will obtain a culture. A positive culture will necessitate antibiotic therapy. Patient sees dermatology who is managing the medical portion of his hidradenitis. His next surgery will be excision hidradenitis right perianal and perineal area and left ischial/proximal posterior thigh ulcer. The ulcer would be skin grafted. The hidradenitis ulcers will be left open and packed with Dakin's or Silver dressings. May not be able to maintain a seal with the VAC. His Creatinine was 3.07 on 02/18/23. The Potassium was 3.1 on 02/18/23. Hgb was 9.7 on 02/18/23. His Creatinine was 1.56 on 04/23/22. Since then it has ranged from a low of 2.38 on 10/09/22 to a high of 3.65 on 02/13/23. His PCP is managing the Creatinine. It needs to be trending downward before proceeding with the surgery. Patient is diabetic. His last HgbA1c was 8.5 on 03/01/23. For elective surgeries, the HgbA1c needs to be less than 8. A wound culture was obtained on 04/01/23. It was positive for Klebsiella aerogenes, Staphylococcus aureus, and Anaerobic cocci. He was started on Doxycycline and Flagyl. The Flagyl is finished. He had stomach issues with the Doxycycline. Continued the Levaquin which should cover the Staphylococcus aureus and has finished them. Will schedule surgical preparation right perineal and perianal areas with excision hidradenitis as well as excision left ischial/proximal posterior thigh ulcer next month. Will leave the wound open and proceed with wound care with Dakin's dressing changes. May not be able to maintain a seal if the VAC is used. May skin graft the left ischial/proximal posterior thigh ulcer. Patient was informed of the risks and complications of the procedure including alternatives to surgery. These were discussed with the patient personally. Patient voices understanding and wishes to proceed. Potential risks and complications included but not inclusive of bleeding, infection, seroma, hematoma, bruising, swelling, possible loss of skin graft, need for wound care, poor scarring, poor aesthetic outcome, intra operative cardiac or neurologic events, DVT, PE, and reaction to anesthesia. The surgery is scheduled for 05/15/23. Followup 2 weeks (after the surgery).
== END 2023-05-12 23:59 | disposition home or self-care (01) ==
LOC: WC 15:15
PROVIDERS: PCP Nurse Practitioner; Referring Provider Nurse Practitioner Family; Visit Provider Surgery
DX: L73.2 Hidradenitis suppurativa (principal); L89.323 Pressure ulcer of left buttock, stage 3; L89.143 Pressure ulcer of left lower back, stage 3; E11.622 Type 2 diabetes mellitus with other skin ulcer; L97.122 Non-pressure chronic ulcer of left thigh with fat layer exposed; E11.65 Type 2 diabetes mellitus with hyperglycemia; I10 Essential (primary) hypertension; I25.10 Atherosclerotic heart disease of native coronary artery without angina pectoris; F17.200 Nicotine dependence, unspecified, uncomplicated; N50.89 Other specified disorders of the male genital organs
CPT/HCPCS: 11042

== ENCOUNTER → 2023-05-08 | Outpatient (CLI) | payer BC, MEDICARE, SELFPAY ==
--- NOTE | 2023-05-08 09:59 | ART_ITS ---
Reason For Study: PVD Procedure A bilateral lower extremity continuous wave Doppler with analog waveform analysis,segmental pressures,and ankle brachial indexes without exercise. Left Segmental Pressures Left brachial= 214mmHg. Left thigh = 141mmHg. Left calf = 129mmHg. Left posterior tibial artery = 122mmHg. Left dorsalis pedis artery = 117mmHg. Left digit = 56 mmHg. The left dorsalis pedis waveforms are monophasic. The left posterior tibial artery waveforms are monophasic. Right Segmental Pressures Right brachial= 218mmHg. Right thigh = 89mmHg. Right calf = 101mmHg. Right posterior tibial artery = 105mmHg. Right dorsalis pedis artery = 103mmHg. Right digit = 79 mmHg. The right dorsalis pedis waveforms are biphasic. The right posterior tibial artery waveforms are monophasic. Indices The right ankle brachial index by the dorsalis pedis is 0.47. The right ankle brachial index by the posterior tibial artery is 0.48. The right digital-brachial index is 0.36. The left ankle brachial index by the dorsalis pedis is 0.54. The left ankle brachial index by the posterior tibial artery is 0.56. The left digital-brachial index is 0.26. . Preliminary report given to Myra NARVAEZ @ Dr. Jeffers's office. Manual BP of 220/72 after 20 minutes 192/74. Chela NARVAEZ in Dr. Bonilla's office contacted. VL/Lower Ext Art Exam w/o Exercis Interpretation Summary Abnormal right lower extremity dorsalis pedis and posterior tibialis ankle-brac hial indices of 0.47 and 0.48 respectively with monophasic Doppler waveforms suggestive of moderatel y severe to severe disease. The right digital brachial index is abnormal at 0.36 The left lower extremity dorsalis pedis and posterior tibialis ankle-brachial i ndices at rest are abnormal at 0.54 and 0.56 respectively and with monophasic waveforms consistent with moderately severe disease. The left digital brachial index is 0.26 This would appear to have progressed bilaterally from a previous examination of May 24, 2022. Please refer to that study. Ordering Physician: Barney Jeffers Referring Physician: Adina Bhat Performed By: Valeria Kinney RVT
== END | disposition home or self-care (01) ==
PROVIDERS: PCP Nurse Practitioner; Referring Provider Podiatrist; Visit Provider Podiatrist
DX: I73.89 Other specified peripheral vascular diseases (principal)
CPT/HCPCS: 93923

== ENCOUNTER → 2023-05-14 | Outpatient (CLI) | payer MEDICARE, SELFPAY ==
[2023-05-14 22:26] LABS: Absolute Lymphocyte Count 2.29 X10^3/uL (0.83-4.51); Basophil# 0.08 X10^3/uL; Basophil% 0.6 % (0-1); Eosinophil# 0.23 X10^3/uL; Eosinophils% 1.9 % (0-5); Hematocrit 27.6 % (40-54); Hemoglobin 8.5 g/dL (13.0-16.5); Lymphocyte # 2.29 X10^3/ul (0.83-4.51); Lymphocyte % 18.5 % (19-41); Mean Corp Hgb Conc 30.8 g/dL (32-36); Mean Corpuscular Hgb 26.3 pg (27.0-32.0); Mean Corpuscular Volume 85.4 fL (80-94); Mean Platelet Vol. 10.6 fl (6.2-12.0); Monocyte# 0.81 X10^3/uL; Monocyte% 6.5 % (0-10); NRBC Flagged by Analyzer 0 % (0-5); Neutrophil # 8.95 X10^3/uL (2.7-7.7); Neutrophil % 72.2 % (47-70); Platelet Count 352 K/mm3 (150-450); RBC Distribution Width CV 16.3 % (11.6-14.6); RBC Distribution Width SD 50.9 fl (35.1-43.9); Red Blood Count 3.23 M/mm3 (4.6-6.2); White Blood Count 12.4 K/mm3 (4.4-11.0)
[2023-05-14 22:47] LABS: ALB/GLOB Ratio 0.5 RATIO (0.9-2.4); AST(SGOT) 11 U/L (15-37); Alanine Aminotransfer ALT/SGPT 8 U/L (16-61); Albumin, Serum 2.5 g/dL (3.2-5.0); Alkaline Phosphatase 105 U/L (45-117); Anion Gap 5 (5-15); BUN 11 mg/dL (7-18); BUN/Creat Ratio 4.6 RATIO (10-20); Calcium,Total 8.1 mg/dL (8.5-10.1); Chloride 108 mmol/L (98-107); Creatinine, Serum 2.41 mg/dL (0.70-1.30); EST Glomerular Filtration Rate 29 mL/min (>60); Est Glom Filt Rate - Afr Amer 36 mL/min (>60); Globulin 4.6 g/dL (2.2-4.2); Glucose 196 mg/dL (74-106); Protein, Total 7.1 g/dL (6.4-8.2); Sodium Level 139 mmol/L (136-145)
== END | disposition home or self-care (01) ==
PROVIDERS: PCP Nurse Practitioner; Visit Provider Nurse Practitioner
DX: E11.9 Type 2 diabetes mellitus without complications (principal); E87.6 Hypokalemia; D64.9 Anemia, unspecified
CPT/HCPCS: 80053; 85025

== ENCOUNTER 2023-05-15 11:46 | Inpatient (IN) | payer MEDICARE, BC, SELFPAY ==
--- NOTE | 2023-05-14 21:17 | HP.PCM_ITS ---
History and Physical Date of Admission: 05/15/23 HISTORY OF PRESENT ILLNESS 57 year old man initially presented with a history of extensive infected, draining, hidradenitis involving his bilateral inguinal areas, base of scrotum, perineal area, and bilateral perianal areas. He has had multiple surgeries to try and eradicate this hidradenitis to allow his immune system to become strong enough to minimize future recurrence. In March,, we operated on his left inguinal area, scrotum, and left perineal area. In September,, we operated on his left perianal area and left posterior thigh area. Also in September,, the patient had a diverting colostomy. In November,, we operated on his right inguinal area, base of scrotum, and right perineal area. Recently he has been having intermittent flare ups involving his right perianal area and right perineal area. He also developed a recurrent hidradenitis ulcer involving his left proximal posterior thigh. A recent culture of his left proximal posterior thigh ulcer was positive for Klebsiella aerogenes, Staphylococcus aureus, and Anaerobic cocci. He was treated with Levaquin, Doxycycline, and Flagyl. He had some stomach issues with the Doxycycline, and it was stopped. PAST MEDICAL HISTORY Abscess of buttock, left Abscess of left thigh Acute blood loss anemia Anemia of chronic disease Back pain due to injury Colostomy in place Complicated open wound of left thigh COPD (chronic obstructive pulmonary disease) Coronary artery disease Current use of insulin Diabetes mellitus type 2, uncontrolled, with complications Heart disease Hidradenitis suppurativa of anus History of stress test Hydradenitis Hyperlipidemia associated with type 2 diabetes mellitus Hypertension Lupus (systemic lupus erythematosus) Malnutrition Myocardial infarct Open wound of left buttock with complication Open wound of scrotum Pain in the groin Skin ulcer of scrotum Sleep apnea Smoker Ulcer of left groin with fat layer exposed Ulcer of perineum with fat layer exposed PAST SURGICAL HISTORY coronary artery stent placement history of excision hidradenitis - 04/03, 10/01, and 12/02 incision and drainage diverting colostomy - 10/01 removal of cyst tonsillectomy and adenoidectomy CABG hernia repair ALLERGIES Penicillins Sulfa bupropion [From Wellbutrin] MEDICATIONS atorvastatin carvedilol clopidogrel glimepiride nifedipine oxybutynin pioglitazone tremfya FAMILY HISTORY Aunt - Lung disease, lung cancer Father - Heart disease, Hypertension, high cholesterol, Diabetes Mother - Diabetes Daughter - Epilepsy SOCIAL HISTORY Smoking Status:? Current every day smoker tobacco type: cigarettes counseling given:? provider counseling alcohol intake:? never substance use type:? does not use REVIEW OF SYSTEMS General - Denies fever and weight loss.? Has fatigue. Eyes - Denies cataracts and glaucoma. ENT - Denies nasal congestion and sore throat.? Has chronic sinus problems. Endocrine - Denies excessive thirst and urination. Skin - Denies suspicious lesions and skin cancer.? Has multiple areas of suppurative hidradenitis abscesses involving right perianal area and right perineal area, and left proximal posterior thigh. Musculoskeletal - Has joint pain and joint stiffness.? Denies weakness of muscles and joints, back pain, and arthritis. Neuro - Denies headaches.? Has lightheadedness. Cardiovascular - Denies chest pain and shortness of breath with exertion.? Has fatigue and lightheadedness. Psych - Denies anxiety and depression. Respiratory - Denies chronic cough and shortness of breath.? Patient is a smoker. Gastrointestinal - Denies nausea, vomiting and constipation.? Has diarrhea. Hematologic - Denies abnormal bruising and bleeding.? Has anemia. Genitourinary - Denies hematuria and urinary frequency. PHYSICAL EXAMINATION General - Alert and Oriented. HEENT - PERRL. EOMI.? Throat is clear. Has had visual issues from his labile hypertension, (blurriness and seeing shadows). Neck - Supple and nontender.? No cervical adenopathy. Lungs - Clear to auscultation. Heart - Regular rate and rhythm. Abdomen - Soft and nondistended.? Has healed hidradenitis scars bilateral inguinal areas.? Rectal - On right perianal area is an area of extensive hidradenitis with induration, redness, and mild tenderness.? ? Approaches the anal opening. Has recurrent right perineal hidradenitis. Has area of induration and redness, and mild tenderness. Genitals - Has healed hidradenitis scars base of scrotum. Extremities - FROM. No axillary adenopathy.? Radial pulses are palpable.? Hard to assess inguinal adenopathy with the surrounding hidradenitis scarring.? Dorsalis pedis pulses are palpable. On left proximal posterior thigh is a recurrent hidradenitis ulcer. Measures 2.5 cm. Mild tenderness to palpation. Some induration. Neuro - CN II-XII grossly intact. Psych - Normal mood and affect. ASSESSMENT 1. Right perianal hidradenitis. 2. Right perineal hidradenitis. 3. Recurrent hidradenitis left proximal posterior thigh. 4. Diabetes mellitus. 5. Smoker. PLAN Recommend surgical preparation right perianal area, right perineal area, and l eft proximal posterior thigh with excision hidradenitis. Will send tissue to Pathology for analysis to rule out carcinoma and to Microbiology for culture. A positive culture will necessitate antibiotic therapy. Surgery will be done under general anesthesia with a surgical observation overnight stay in the hospital. Will leave the wound open and begin postoperative wound care with Dakin's dressing changes.? Due to the proximity to the anal opening, a diverting colostomy was placed in September,. His HgbA1c from 05/14/23 was 6.8. For elective surgeries (such as skin grafting), his HgbA1c needs to be less than 8. ? Anticipate increased metabolic demands from the infection.? Will check a Prealbumin and encourage nutritional supplementation with protein to help the healing process. His last Prealbumin was 19.8 on 04/23/22. Patient was informed of the risks and complications of the procedure including alternatives to surgery.? These were discussed with the patient personally.? Patient voices understanding and wishes to proceed. Potential risks and complications included but not inclusive of bleeding, infection, hematoma, bruising, swelling, wound breakdown, poor scarring, poor aesthetic outcome, intra operative cardiac or neurologic events, DVT, PE, and reaction to anesthesia. Encouraged patient to stop smoking as it may have deleterious effects on wound healing. After discharge, will [facility].
[2023-05-15] VITALS (17 sets, daily range): BP systolic 105–162; BP diastolic 56–78; PULSE 63–83; RESP 16–32; TEMP 36.6–37.1; O2SAT 74–100; BMI 25.0; BMI 25.4
[2023-05-15] MEDS: 0.9% Normal Saline (1000mL) 1,000 ML 15 ML IV (07:55)
[2023-05-15] MEDS: Vancomycin IV 1,000 MG/200 ML BAG 200 MG IV (07:55)
[2023-05-15 08:52] LABS: Bedside Glucose 131 mg/dL (74-106)
--- NOTE | 2023-05-15 09:03 | SUR.PHASEI ---
ARRIVES TO PACU, SURGERY ABORTED, WAS DYSPNEIC w/ SPO2 IN 70'S ON O.R. ARRIVAL PER DR GONZALEZ, SUDDEN ONSET SOB. WAS 72% ON ROOM AIR WHEN ARRIVED TO PACU, RR 24. OCCAS DRY COUGH. DENIES CHEST PAIN OR NAUSEA. PLACED ON O2 AT 6 L/MIN. DR GONZALEZ ORDERED LABS, CXR, EKG, SEE ORDERS. DR SUTTON TO CONSULT HOSPITALIST.
--- NOTE | 2023-05-15 09:06 | EKG12_ITS ---
Test Reason : sob Blood Pressure : / mmHG Vent. Rate : 073 BPM Atrial Rate : 073 BPM P-R Int : 146 ms QRS Dur : 086 ms QT Int : 432 ms P-R-T Axes : 073 069 144 degrees QTc Int : 475 ms Normal sinus rhythm Left ventricular hypertrophy with repolarization abnormality ( Sokolow-White ) Cannot rule out Septal infarct (cited on or before 02-OCT-2022) Abnormal ECG When compared with ECG of 18-FEB-2023 15:15, Confirmed by NOE RODRIGUEZ, STELLA ([id number]), movie editor GILLIAN GONCALVES ([id number]) on 05/16/2023 1:37:53 PM Referred By: Cortez Smith Confirmed By:STELLA LIU MD
--- NOTE | 2023-05-15 09:10 | RAD_ITS ---
STUDY: X-RAY CHEST REASON FOR EXAM: Male, 57 years old. Shortness of breath TECHNIQUE: Single AP portable view of the chest. COMPARISON: Comparison is made with prior study dated February 18, 2023. FINDINGS: EKG electrodes are seen. Mild degree of vascular congestion and CHF. There is no demonstrated pleural abnormality. Normal size heart. Normal mediastinum and anthony. Normal visualized pulmonary arteries. Normal visualized aortic arch and descending thoracic aorta. Normal visualized thoracic spine. Normal visualized ribs, clavicles, and shoulders. There is no demonstrated abnormality of the visualized soft tissue structures of the upper abdomen. RAD/Chest 1 View (Portable) IMPRESSION: Mild degree of vascular congestion and CHF. Electronically Signed: Jose Alberto Bartholomew MD at 9:28 EDT ,
[2023-05-15 09:26] LABS: Hematocrit 27.4 % (40-54); Hemoglobin 8.6 g/dL (13.0-16.5); Mean Corp Hgb Conc 31.4 g/dL (32-36); Mean Corpuscular Hgb 26.5 pg (27.0-32.0); Mean Corpuscular Volume 84.3 fL (80-94); Mean Platelet Vol. 8.9 fl (6.2-12.0); Platelet Count 282 K/mm3 (150-450); RBC Distribution Width CV 16.1 % (11.6-14.6); RBC Distribution Width SD 50.3 fl (35.1-43.9); Red Blood Count 3.25 M/mm3 (4.6-6.2); White Blood Count 11.6 K/mm3 (4.4-11.0)
[2023-05-15 09:41] LABS: ALB/GLOB Ratio 0.5 RATIO (0.9-2.4); AST(SGOT) 11 U/L (15-37); Alanine Aminotransfer ALT/SGPT 7 U/L (16-61); Albumin, Serum 2.4 g/dL (3.2-5.0); Alkaline Phosphatase 104 U/L (45-117); Anion Gap 6 (5-15); BUN 11 mg/dL (7-18); BUN/Creat Ratio 4.8 RATIO (10-20); Chloride 111 mmol/L (98-107); Creatinine, Serum 2.29 mg/dL (0.70-1.30); EST Glomerular Filtration Rate 31 mL/min (>60); Est Glom Filt Rate - Afr Amer 38 mL/min (>60); Globulin 4.4 g/dL (2.2-4.2); Glucose 153 mg/dL (74-106); Potassium 3.7 mmol/L (3.5-5.1); Protein, Total 6.8 g/dL (6.4-8.2); Sodium Level 140 mmol/L (136-145)
--- NOTE | 2023-05-15 09:46 | SUR.PHASEI ---
critical value, d dimer reported to dr. cruz anesthesia.
--- NOTE | 2023-05-15 09:49 | SUR.PHASEI ---
EARL diaz/ MACIE, RN [employer] SET UP OPERATOR, REPORTS NO BEDS AVAILABLE ON PCU OR ICU. THIS RN WAS INSTRUCTED TO TXR TO [facility] AND DR JOHNSON WOULD SEE ON ARRIVAL THERE.
[2023-05-15 09:50] LABS: Troponin-I HS 17 pg/mL (3.0-78.0)
[2023-05-15 09:53] LABS: BNP,B-Type NATRIURETIC PEPTIDE 202.3 pg/mL (0-100)
--- NOTE | 2023-05-15 10:02 | PCM.PN.BLA ---
Progress Note Patient was scheduled for surgery today. When he was in the operating room, he had some difficulty breathing. He looked pale and his lips were dusky. His pulse ox was in the 70's and only improved a little on O2. His BP remained stable. It was decided to cancel the surgery at this time. I will reschedule the surgery when the patient is medically stable. Patient will be admitted for medical workup of his severe hypoxia to look for a respiratory or cardiac cause of his acute respiratory insufficiency.
--- NOTE | 2023-05-15 11:57 | PCM.HP.STD ---
[facility] - General General Date of Admission: 05/15/23 Date of Service: 05/15/23 Chief Complaint: Shortness of breath [facility] Narrative SVEN DUONG, is a 57 M with multiple comorbidities including hidradenitis suppurativa who was scheduled to undergo surgical excision by Dr. Smith with plastic surgery who developed sudden onset of shortness of breath. Per signout from Dr. Smith, nursing staff as well as patient he became dyspneic suddenly. Patient was found to be cyanotic. Patient was evaluated by anesthesia and the procedure subsequently canceled. Subsequent imaging studies demonstrated vascular congestion. Decision was made to admit patient for subsequent evaluation and management in the hospital [facility] Medical History Abscess of buttock, left Abscess of left thigh Abscess of right groin Abscess of scrotal wall Abscess, perineum Acute blood loss anemia Acute kidney injury Acute kidney injury superimposed on chronic kidney disease Acute post-operative pain Acute postoperative anemia due to expected blood loss Alcohol use Anemia Anemia of chronic disease Ankle pain Ankle pain Arthritis Back pain Back pain due to injury Cardiology follow-up encounter Cellulitis Chronic kidney disease Chronic obstructive pulmonary disease Chronic pain Chronic ulcer of buttock Chronic ulcer of left thigh with fat layer exposed Colostomy in place Complete edentulism, class III Complicated open wound of left thigh COPD (chronic obstructive pulmonary disease) Coronary artery disease Coronary artery disease Cough Debility Diabetes Diabetes mellitus Diabetes mellitus type 2, uncontrolled, with complications Diabetes type 2, uncontrolled Diverticulitis DM type 2, goal HbA1c < 7.5% Edema of both legs Elevated serum creatinine Gait instability Gastric ulcer Hemoglobin A1c greater than 8.0 percent Hidradenitis suppurativa of anus Hidradenitis suppurativa of anus History of diverticulitis History of echocardiogram History of edema History of pain when walking History of stress test History of ulceration Hydradenitis Hydradenitis Hyperlipidemia Hyperlipidemia associated with type 2 diabetes mellitus Hypertension Hypertension Hypokalemia Iron deficiency anemia Kidney disease Lupus (systemic lupus erythematosus) Malnutrition Malnutrition Nausea and vomiting Nicotine dependence Non-healing open wound of right groin Nonhealing skin ulcer Open wound of buttock with complication Open wound of left buttock with complication Open wound of scrotum Open wound of scrotum with complication Pain in the groin Peripheral arterial disease Pneumonia involving right lung Post-operative pain Proteinuria due to type 2 diabetes mellitus PVD (peripheral vascular disease) Shingles Shingles Shortness of breath on exertion Skin ulcer of scrotum Smoker Suppurative hidradenitis Syncope TIA (transient ischemic attack) Tobacco dependence syndrome Ulcer of left groin with fat layer exposed Ulcer of perianal area with fat layer exposed Ulcer of perineum with fat layer exposed Ulcer of perineum with fat layer exposed Ulcer of right groin with fat layer exposed Ulcer of scrotum Weakness Wears glasses Weight gain with edema Wound infection Home Medications guselkumab 100 mg/mL subcutaneous syringe (Ubersense) 100 mg subcut Q4W ARTHRITIS 04/23/22 [History Last Taken 09/26/22] oxybutynin chloride 5 mg tablet,extended release 24 hr 5 mg PO DAILY OVERACTIVE BLADDER 10/01/22 [History Last Taken 10/02/22] clopidogrel 75 mg tablet 75 mg PO DAILY #30 tabs 11/14/22 [Rx Last Taken 05/08/23] pioglitazone 30 mg tablet 30 mg PO DAILY #30 tabs 12/28/22 [Rx Last Taken Unknown] carvedilol 25 mg tablet 25 mg PO BID #60 tabs 03/01/23 [Rx Last Taken 05/15/23 05:30] glimepiride 2 mg tablet 2 mg PO DAILY #30 tabs 03/01/23 [Rx Last Taken Unknown] nifedipine 90 mg tablet,extended release 24 hr 90 mg PO DAILY #90 tabs 05/08/23 [Rx Last Taken 05/15/23 05:30] Allergy/AdvReac Type Severity Reaction Status Date / Time Penicillins Allergy Unknown Verified 05/15/23 07:37 Sulfa (Sulfonamide Allergy Unknown Verified 05/15/23 07:37 Antibiotics) bupropion [From Wellbutrin] AdvReac Severe change in Verified 05/15/23 07:37 personality ,meanness and smoked more Family History Aunt Lung disease lung cancer Father Heart disease Hypertension Family history of high cholesterol Diabetes Mother Diabetes Daughter Epilepsy Surgical History History of coronary artery stent placement History of excision of lesion History of incision and drainage History of removal of cyst History of tonsillectomy and adenoidectomy Hx of hernia repair Social History household members: spouse Smoking Status: Current every day smoker tobacco type: cigarettes counseling given: provider counseling alcohol intake: never substance use type: does not use caffeine: Yes (7) Type: coffee additional social history: DOES NOT TAKE ASPIRIN DOES NOT TAKE IBUPROFEN ROS ROS Narrative GENERAL: denies fever, chills, night sweats, weight loss, anorexia HEENT: denies headache, sinus congestion, or drainage, dysphagia RESPIRATORY: , shortness of breath, dyspnea on exertion CARDIAC: denies chest pain, palpitations, orthopnea, PND GASTROINTESTINAL: denies abdominal pain, nausea, vomiting, melena, GENITOURINARY: denies dysuria, urgency, frequency, heamaturia EXTREMITY: denies swelling MUSCULOSKELETAL: denies current joint pain or tenderness NEUROLOGIC: denies focal numbness, weakness, tingling HEMATOLOGIC: denies easy bruising and/or hemorrhage INTEGUMENT: denies rashes PSYCHIATRIC: denies suicidal or homicidal ideation Vital Signs Vital Signs Vital Signs: 05/15/23 07:46 05/15/23 07:46 05/15/23 09:03 Temperature 98.7 F 98.3 F Temperature Source Temporal Temporal Pulse Rate 67 83 Respiratory Rate 16 24 H Respiratory Pattern Normal Tachypnea Blood Pressure 162/65 H 161/60 H Blood Pressure Mean 97 93 Blood Pressure Source Monitor Monitor Blood Pressure Position Semi-Fowlers Semi-Fowlers Blood Pressure Location Right Arm Left Arm Baseline BP 162/65 Pulse Ox 93 74 Oxygen Delivery Method Room Air Room Air Oxygen Flow Rate (L/min) 05/15/23 09:15 05/15/23 09:30 05/15/23 09:36 Temperature Temperature Source Pulse Rate 75 73 Respiratory Rate 26 H 32 H Respiratory Pattern Blood Pressure 155/77 H 154/62 H Blood Pressure Mean 103 92 Blood Pressure Source Monitor Monitor Blood Pressure Position Semi-Fowlers Semi-Fowlers Blood Pressure Location Right Arm Right Arm Baseline BP 162/65 162/65 162/65 Pulse Ox 90 100 Oxygen Delivery Method Nasal Cannula Simple Mask Oxygen Flow Rate (L/min) 6 6 05/15/23 09:45 05/15/23 10:00 05/15/23 10:15 Temperature Temperature Source Pulse Rate 67 66 67 Respiratory Rate 32 H 28 H 28 H Respiratory Pattern Blood Pressure 152/60 H 145/61 H 152/59 H Blood Pressure Mean 90 89 90 Blood Pressure Source Monitor Monitor Monitor Blood Pressure Position Semi-Fowlers Semi-Fowlers Semi-Fowlers Blood Pressure Location Right Arm Right Arm Right Arm Baseline BP 162/65 162/65 162/65 Pulse Ox 99 99 99 Oxygen Delivery Method Simple Mask Simple Mask Simple Mask Oxygen Flow Rate (L/min) 8 8 6 05/15/23 10:30 05/15/23 10:45 Temperature Temperature Source Pulse Rate 67 67 Respiratory Rate 30 H 30 H Respiratory Pattern Blood Pressure 142/61 H 143/56 H Blood Pressure Mean 88 85 Blood Pressure Source Monitor Monitor Blood Pressure Position Semi-Fowlers Semi-Fowlers Blood Pressure Location Right Arm Right Arm Baseline BP 162/65 162/65 Pulse Ox 98 98 Oxygen Delivery Method Simple Mask Nasal Cannula Oxygen Flow Rate (L/min) 6 5 Weight Weight: 74.843 kg Body Mass Index (BMI) 25.0 Physical Exam Narrative GENERAL: Patient on supplemental oxygen HEENT: Atraumatic; normocephalic EYES; Anicteric, Normal Conjunctiva NECK; supple, normal thyroid, RESPIRATORY: Diminished to auscultation CARDIOVASCULAR: Regular S1 S2, GI: soft, normoactive bowel sounds, : No Renal angle tenderness; EXTREMITIES: No edema, no clubbing, MUSCULOSKELETAL: no muscle wasting NEURO: Awake; no lateralizing signs. SKIN: No Rash PSYCH; Flat affect Results Lab / Micro Data 05/15/23 09:16 05/15/23 09:16 Labs: Laboratory Results - last 24 hr 05/15/23 07:53: POC Glucose 131 H 05/15/23 09:16: WBC 11.6 H, RBC 3.25 L, Hgb 8.6 L, Hct 27.4 L, MCV 84.3, MCH 26.5 L, MCHC 31.4 L, RDW Std Deviation 50.3 H, RDW Coeff of Dana 16.1 H, Plt Count 282, MPV 8.9, D-Dimer Quant (PE/DVT) 1.00 H*, Sodium 140, Potassium 3.7, Chloride 111 H, Carbon Dioxide 23.0, Anion Gap 6, BUN 11, Creatinine 2.29 H, Estim Creat Clear Calc 33.60, Est GFR (MDRD) Af Amer 38 L, Est GFR (MDRD) Non-Af 31 L, BUN/Creatinine Ratio 4.8 L, Glucose 153 H, Calcium 8.0 L, Total Bilirubin 0.20, AST 11 L, ALT 7 L, Alkaline Phosphatase 104, Troponin I High Sens 17, B-Natriuretic Peptide 202.3 H, Total Protein 6.8, Albumin 2.4 L, Globulin 4.4 H, Albumin/Globulin Ratio 0.5 L Imaging Radiology Impression Chest X-Ray 05/15/23 09:10 IMPRESSION: Mild degree of vascular congestion and CHF. Electronically Signed: Jose Alberto Bartholomew MD at 9:28 EDT , Assessment & Plan Assessment/Plan (1) Hypoxia: PLAN: Plan 57-year-old gentleman admitted with hypoxia prior to undergoing surgical intervention left gluteal hidradenitis supra TIVA 1. Acute hypoxia ? Multifactorial including suspected CHF and COPD 2. Acute congestive heart failure?unspecified ? Initial workup did demonstrate vascular congestion consistent with congestive heart failure. Admitted to monitored bed patient started on diuretic therapy with furosemide. Also placed on strict input and output, daily weight low-sodium diet 2D echo ordered for EF assessment 3. COPD with acute exacerbation - Patient started on bronchodilator treatment, systemic steroid as well as antibiotic therapy. Patient placed on oxygen titrated to keep saturation greater than 90. 4. Hidradenitis suppurativa involving the groin ? Patient is followed by Dr. Smith and was scheduled to undergo excision prior to becoming hypoxic leading to a management of the intervention. Plan is for patient to follow-up with Dr. Johnson following medical stabilization for rescheduling 5. Hypertension - Blood pressure controlled, home medications continued with dose adjustment as needed 6. Diabetes mellitus type II -patient's oral hypoglycemics held. Placed on long acting insulin, Accu-Cheks a.c. and at bedtime and covered with sliding scale insulin 7. Chronic kidney disease stage IV ? Secondary to diabetic nephropathy patient is followed by Dr. Baird with nephrology as outpatient 8. Anemia - Secondary to chronic disorder monitoring H&H and transfuse if patient becomes symptomatic or hemoglobin falls below 7 9. Tobacco dependence - Counseled on cessation, offered nicotine patch for tobacco cravings 10. Elevated D-dimer ? Ordered bilateral lower extremity venous duplex as well as VQ scan 11. DVT prophylaxis - On enoxaparin; dose adjusted for kidney function Time spent in the patient's overall evaluation,decision-making process, review of diagnostic data, adjustment of management, discussion with other providers, nursing nursing and ancillary staff involved in patient's care documentation, 75 Minutes Advance planning; did discuss with the patient and family regarding advanced directives as well as CODE STATUS. Did explain the various scenarios involved ( FULL CODE, DNR CCA, DNR CCA with no intubation, and DNR CC and what each meant) patient elected remain full code with CPR and intubation if needed. Order was placed. Time spent on discussion 18 minutes. Charges/Coding Visit Charges Inpatient E&M: 80770 Init Hosp L3 Procedures Hospitalists Procedures: 29522 Advncd Care Plan 30 Min
--- NOTE | 2023-05-15 12:19 | ECHOD_ITS ---
Reason For Study: DYSPNEA Procedure This was a 2D Doppler, Color Flow transthoracic echocardiogram. Exam performed portable in ICU/CCU. Left Ventricle Normal LV size. Mild concentric left ventricular hypertrophy. The left ventricular ejection fraction is 65 %. Left ventricular systolic function is normal. No regional wall motion abnormalities noted. Right Ventricle Normal RV size. Normal systolic function. Atria Normal left atrium. Normal right atrium. Mitral Valve Normal mitral valve. Tricuspid Valve Normal tricuspid valve. Aortic Valve Normal aortic valve. Trisinus/trileaflet aortic valve. Pulmonic Valve Normal pulmonic valve. Great Vessels Normal aortic root. The pulmonary artery is normal size. Inferior vena cava collapse with sniff. Pericardium/Pleural No pericardial effusion. MMode/2D Measurements & Calculations LVIDd: 4.5 cm IVSd: 1.3 cm LVOT diam: 1.9 cm LVIDs: 2.6 cm LVPWd: 1.3 cm LVOT area: 2.8 cm2 RVDd: 3.8 cm FS: 42.8 % Ao root diam: 3.2 cm LAV(MOD-bp): 57.9 ml LVAd ap4: 28.0 cm2 LAV(MOD-bp) Indexed: 30.5 ml/m2 LVLd ap4: 7.9 cm LAV(MOD-sp2): 66.9 ml EDV(MOD-sp4): 81.3 ml LAV(MOD-sp4): 50.3 ml EDV(sp4-el): 84.5 ml LVAs ap4: 14.5 cm2 LVLs ap4: 6.7 cm ESV(MOD-sp4): 27.5 ml ESV(sp4-el): 26.7 ml EF(MOD-sp4): 66.1 % EF(sp4-el): 68.4 % LVAd ap2: 29.1 cm2 SV(MOD-sp4): 53.8 ml SV(MOD-sp2): 48.3 ml LVLd ap2: 8.4 cm EDV(MOD-sp2): 84.9 ml EDV(sp2-el): 86.2 ml LVAs ap2: 17.1 cm2 LVLs ap2: 7.2 cm ESV(MOD-sp2): 36.6 ml ESV(sp2-el): 34.4 ml EF(MOD-sp2): 56.9 % SV(sp4-el): 57.7 ml LA dimension(2D): 4.2 cm LA A4 area: 19.2 cm2 RA A4 area: 14.5 cm2 TAPSE: 2.4 cm Time Measurements MV dec time: 0.20 sec Doppler Measurements & Calculations MV E max jarvis: 115.4 cm/sec Lat Peak E' Jarvis: 8.5 cm/sec Med Peak E' Jarvis: 7.4 cm/sec MV A max jarvis: 107.9 cm/sec E/E' lat: 13.6 E/E' med: 15.5 MV E/A: 1.1 Ao V2 max: 168.1 cm/sec LV V1 max: 136.2 cm/sec MV dec slope: 567.5 cm/sec2 Ao max P.3 mmHg LV V1 max P.4 mmHg Ao V2 mean: 104.5 cm/sec LV V1 mean P.5 mmHg Ao mean P.2 mmHg LV V1 mean: 87.2 cm/sec Ao V2 VTI: 39.4 cm LV V1 VTI: 33.8 cm AV (velocity ratio): 0.86 MEG(I,D): 2.4 cm2 MEG(V,D): 2.3 cm2 SV(LVOT): 96.0 ml PA V2 max: 111.0 cm/sec PA max PG (full): 2.0 mmHg ECHO/Echo Complete Interpretation Summary Normal LV size. Mild concentric left ventricular hypertrophy. The left ventricular ejection fraction is 65 %. Left ventricular systolic function is normal. The global longitudinal strain is normal. The global longitudinal strain = -17. 9 % (normal). Ordering Physician: Wai Cavazos Referring Physician: Cortez Smith Performed By: Daniela Mcfarlane RDCS
--- NOTE | 2023-05-15 12:54 | VDLE_ITS ---
Reason For Study: Elevated D-dimer RIGHT LEFT GSV is normal. GSV is normal. CFV is compressible, spontaneous, phasic, CFV is compressible, spontaneous, phasic, competent and demonstrates normal competent, and demonstrates normal augmentation. augmentation. FV is compressible, spontaneous, phasic, FV is compressible, spontaneous, phasic, competent and demonstrates normal competent and demonstrates normal augmentation. augmentation. POP V is compressible, spontaneous, phasic, POP V is compressible, spontaneous, phasic, competent and demonstrates normal competent and demonstrates normal augmentation. augmentation. T/P Trunk is compressible. T/P Trunk is compressible. PTV is compressible. PTV is compressible. RT PerV is compressible. LT PerV is compressible. Procedure This is a venous duplex using B-mode, color flow and spectral Doppler. Exam performed portable in ICU/CCU. A preliminary report was called and/or faxed to Ricardo NARVAEZ. VL/Venous Duplex US - Roni Extrem Interpretation Summary Deep veins of the bilateral lower extremities are patent and compressible segme ntally. There is no evidence of bilateral lower extremity deep vein thrombosis. The bilateral great saphenous veins appear patent and compressible segmentally. Ordering Physician: Wai Cavazos Referring Physician: Adina Bhat Performed By: Valeria Kinney RVT
[2023-05-15 13:44] LABS: Allen Test Positive; Base Excess -1 mmol/L (-2 to +2); Bicarbonate 23.4 mmol/L (22-26); Blood Gas Specimen Type ART; Mode Not entered; O2 Delivery Device Cannula; PO2 64 mmHG (75-100); SITE L Radial; SO2 92 % (95-99); Total Carbon Dioxide 25 mmol/L
[2023-05-15] MEDS: Acetaminophen 500 MG Tablet 1000 MG PO ×2 (14:09→22:06)
[2023-05-15] MEDS: Furosemide 40 MG/4 ML Vial IV ×2 (14:10→22:04)
[2023-05-15] MEDS: Azithromycin 250 MG Tablet 500 MG PO (14:10)
[2023-05-15 14:37] LABS: BNP,B-Type NATRIURETIC PEPTIDE 273.5 pg/mL (0-100)
[2023-05-15 14:41] LABS: Troponin-I HS 19 pg/mL (3.0-78.0)
[2023-05-15] MEDS: Ipratropium/Albuterol Sulfate 3 ML AMPUL.NEB INHALATION ×3 (14:53→23:50)
--- NOTE | 2023-05-15 15:54 | WOUNDNOTE ---
wound photo: bilateral buttocks
[2023-05-15] MEDS: Insulin Lispro 100 UNIT/ML INSULN.PEN SC ×2 (16:36→22:17)
[2023-05-15 16:50] LABS: Troponin-I HS 19 pg/mL (3.0-78.0)
[2023-05-15 16:56] LABS: Bedside Glucose 191 mg/dL (74-106)
[2023-05-15 21:01] LABS: Troponin-I HS 13 pg/mL (3.0-78.0)
[2023-05-15] MEDS: Carvedilol 25 MG Tablet PO (22:04)
[2023-05-16] VITALS (10 sets, daily range): BP systolic 175–196; BP diastolic 74–84; PULSE 70–99; RESP 13–18; TEMP 36.1–36.8; O2SAT 96–99
[2023-05-16] MEDS: Ipratropium/Albuterol Sulfate 3 ML AMPUL.NEB INHALATION ×6 (03:03→22:47)
[2023-05-16] MEDS: 0.9% Saline Lock 10 ML Syringe IV ×3 (05:27→23:45)
[2023-05-16] MEDS: Furosemide 40 MG/4 ML Vial IV ×3 (05:27→23:40)
[2023-05-16] MEDS: Acetaminophen 500 MG Tablet 1000 MG PO ×3 (05:30→23:39)
[2023-05-16] MEDS: NIFEdipine 90 MG Tablet PO (05:31)
[2023-05-16] MEDS: Carvedilol 25 MG Tablet PO ×2 (05:31→23:38)
[2023-05-16] MEDS: Insulin Lispro 100 UNIT/ML INSULN.PEN SC ×4 (07:02→23:40)
[2023-05-16 07:13] LABS: Absolute Lymphocyte Count 0.86 X10^3/uL (0.83-4.51); Absolute Neutrophil Count 11.8 X10^3/uL (2.0-7.7); Basophil# 0.02 X10^3/uL; Basophil% 0.2 % (0-1); Hematocrit 26.3 % (40-54); Lymphocyte # 0.86 X10^3/ul (0.83-4.51); Lymphocyte % 6.7 % (19-41); Mean Corp Hgb Conc 30.4 g/dL (32-36); Mean Corpuscular Hgb 25.7 pg (27.0-32.0); Mean Corpuscular Volume 84.6 fL (80-94); Mean Platelet Vol. 9.5 fl (6.2-12.0); Monocyte# 0.15 X10^3/uL; Monocyte% 1.2 % (0-10); NRBC Flagged by Analyzer 0 % (0-5); Neutrophil % 91.1 % (47-70); Platelet Count 324 K/mm3 (150-450); RBC Distribution Width CV 15.9 % (11.6-14.6); RBC Distribution Width SD 49.4 fl (35.1-43.9); Red Blood Count 3.11 M/mm3 (4.6-6.2); White Blood Count 12.9 K/mm3 (4.4-11.0)
[2023-05-16 07:21] LABS: Bedside Glucose 352 mg/dL (74-106)
[2023-05-16 07:59] LABS: Anion Gap 7 (5-15); BUN 16 mg/dL (7-18); BUN/Creat Ratio 6.3 RATIO (10-20); Calcium,Total 8.4 mg/dL (8.5-10.1); Chloride 107 mmol/L (98-107); Creatinine, Serum 2.55 mg/dL (0.70-1.30); EST Glomerular Filtration Rate 28 mL/min (>60); Est Glom Filt Rate - Afr Amer 33 mL/min (>60); Estimated Creatinine Clearance 30.18 ml/min; Glucose 348 mg/dL (74-106); Magnesium 1.7 mg/dL (1.6-2.6); Phosphorus 2.4 mg/dL (2.5-4.9); Potassium 3.9 mmol/L (3.5-5.1); Sodium Level 137 mmol/L (136-145)
[2023-05-16] MEDS: Clopidogrel Bisulfate 75 MG Tablet PO (08:14)
[2023-05-16] MEDS: Enoxaparin 30 MG/0.3 ML Syringe SC (08:14)
[2023-05-16] MEDS: Azithromycin 250 MG Tablet 500 MG PO (08:14)
[2023-05-16] MEDS: Tolterodine Tartrate 2 MG CAP.SA PO (08:15)
--- NOTE | 2023-05-16 09:29 | PCM.PN.HOSP ---
Reason for Visit Reason for Visit: Diagnoses Hypoxemia (05/15/23) Subjective Subjective Patient is a 57-year-old gentleman who developed acute hypoxia prior to undergoing a surgical procedure and assessment of acute congestive heart failure and COPD exacerbation made admitted to regular nursing floor where patient has since been managed Objective Data Objective Data Vital Signs: Vital Signs Temp Pulse Resp BP Pulse Ox O2 Del Method O2 Flow Rate 97 F L 77 18 196/84 H 96 Room Air 2 05/16/23 06:05 05/16/23 07:24 05/16/23 07:24 05/16/23 06:05 05/16/23 07:24 05/16/23 07:24 05/15/23 22:00 Oxygen Flow Rate (L/min) 2 Oxygen Delivery Method Room Air Weight: 76 kg Body Mass Index (BMI) 25.4 Intake & Output: Intake and Output for Last 24 Hours 05/14/23 05/15/23 05/16/23 23:59 23:59 23:59 Intake Total 1266.25 / 1266.25 Output Total 1025 / 1025 Balance 241.25 / 241.25 Lab / Micro Data 05/16/23 06:23 05/16/23 06:23 Labs: Laboratory Results - last 24 hr 05/15/23 09:16: D-Dimer Quant (PE/DVT) 1.00 H*, Sodium 140, Potassium 3.7, Chloride 111 H, Carbon Dioxide 23.0, Anion Gap 6, BUN 11, Creatinine 2.29 H, Estim Creat Clear Calc 33.60, Est GFR (MDRD) Af Amer 38 L, Est GFR (MDRD) Non-Af 31 L, BUN/Creatinine Ratio 4.8 L, Glucose 153 H, Calcium 8.0 L, Total Bilirubin 0.20, AST 11 L, ALT 7 L, Alkaline Phosphatase 104, Troponin I High Sens 17, B-Natriuretic Peptide 202.3 H, Total Protein 6.8, Albumin 2.4 L, Globulin 4.4 H, Albumin/Globulin Ratio 0.5 L 05/15/23 13:45: Troponin I High Sens 19, B-Natriuretic Peptide 273.5 H 05/15/23 16:30: Troponin I High Sens 19 05/15/23 16:32: POC Glucose 191 H 05/15/23 20:30: Troponin I High Sens 13 05/16/23 06:23: WBC 12.9 H, RBC 3.11 L, Hgb 8.0 L, Hct 26.3 L, MCV 84.6, MCH 25.7 L, MCHC 30.4 L, RDW Std Deviation 49.4 H, RDW Coeff of Dana 15.9 H, Plt Count 324, MPV 9.5, Immature Gran % (Auto) 0.800, Neut % (Auto) 91.1 H, Lymph % (Auto) 6.7 L, Sutter % (Auto) 1.2, Eos % (Auto) 0.0, Baso % (Auto) 0.2, Absolute Neuts (auto) 11.8 H, Absolute Lymphs (auto) 0.86, Nucleated RBC % 0, Sodium 137, Potassium 3.9, Chloride 107, Carbon Dioxide 23.0, Anion Gap 7, BUN 16, Creatinine 2.55 H, Estim Creat Clear Calc 30.18, Est GFR (MDRD) Af Amer 33 L, Est GFR (MDRD) Non-Af 28 L, BUN/Creatinine Ratio 6.3 L, Glucose 348 H, Calcium 8.4 L, Phosphorus 2.4 L, Magnesium 1.7 05/16/23 07:01: POC Glucose 352 H Micro: Microbiology 05/15/23 13:22 Mucosa - Nasopharyngeal Coronavirus COVID-19 PCR - Final ABG Data ABG results: ABG 05/15/23 13:39 Specimen Type ART Sample Site L Radial pH 7.40 Bicarbonate Actual 23.4 Total CO2 25 Base Excess -1 O2 Saturation 92 L O2 % 7.0 ABG pCO2 38.0 ABG pO2 64 L Khalif Test Positive O2 Delivery Device Cannula Vent Mode Not entered Radiography Diagnostic Testing: Radiology Impression Echocardiogram 05/15/23 12:19 Interpretation Summary Normal LV size. Mild concentric left ventricular hypertrophy. The left ventricular ejection fraction is 65 %. Left ventricular systolic function is normal. The global longitudinal strain is normal. The global longitudinal strain = -17.9 % (normal). Ordering Physician: Wai Cavazos Referring Physician: Cortez Smith Performed By: Daniela Mcfarlane, [facility] Venous Doppler Study 05/15/23 12:54 Interpretation Summary Deep veins of the bilateral lower extremities are patent and compressible segmentally. There is no evidence of bilateral lower extremity deep vein thrombosis. The bilateral great saphenous veins appear patent and compressible segmentally. Ordering Physician: Wai Cavazos Referring Physician: Adina Bhat Performed By: Valeria Kinney RVT Physical Exam Narrative GENERAL: Cooperative HEENT: Atraumatic; normocephalic EYES; Anicteric, Normal Conjunctiva NECK; supple, normal thyroid, RESPIRATORY: Diminished to auscultation CARDIOVASCULAR: Regular S1 S2, GI: soft, normoactive bowel sounds, : No Renal angle tenderness; EXTREMITIES: No edema, no clubbing, MUSCULOSKELETAL: no muscle wasting NEURO: Awake; no lateralizing signs. SKIN: No Rash PSYCH; Flat affect Assessment & Plan Assessment/Plan (1) Hypoxia: PLAN: Plan 57-year-old gentleman admitted with hypoxia prior to undergoing surgical intervention left gluteal hidradenitis suprativa 1. Acute hypoxia ? Multifactorial including suspected CHF and COPD ? 05/16/2023 patient is currently being weaned off supplemental oxygen. 2. Acute congestive heart failure?unspecified ? Initial workup did demonstrate vascular congestion consistent with congestive heart failure. Admitted to monitored bed patient started on diuretic therapy with furosemide. Also placed on strict input and output, daily weight low-sodium diet 2D echo ordered for EF assessment ? 05/16/2023 patient has had a good response to furosemide. 2D echo scheduled to be performed 3. COPD with acute exacerbation - Patient started on bronchodilator treatment, systemic steroid as well as antibiotic therapy. Patient placed on oxygen titrated to keep saturation greater than 90. ? 05/16/2023; patient still has persistent cough 4. Hidradenitis suppurativa involving the groin ? Patient is followed by Dr. Smith and was scheduled to undergo excision prior to becoming hypoxic leading to a management of the intervention. Plan is for patient to follow-up with Dr. Johnson following medical stabilization for rescheduling 5. Hypertension - Blood pressure controlled, home medications continued with dose adjustment as needed 6. Diabetes mellitus type II -patient's oral hypoglycemics held. Placed on long acting insulin, Accu-Cheks a.c. and at bedtime and covered with sliding scale insulin 7. Chronic kidney disease stage IV ? Secondary to diabetic nephropathy patient is followed by Dr. Baird with nephrology as outpatient 8. Anemia - Secondary to chronic disorder monitoring H&H and transfuse if patient becomes symptomatic or hemoglobin falls below 7 9. Tobacco dependence - Counseled on cessation, offered nicotine patch for tobacco cravings 10. Elevated D-dimer ? Ordered bilateral lower extremity venous duplex as well as VQ scan ? 05/16/2023 venous duplex came back negative for DVT awaiting results of VQ scan 11. DVT prophylaxis - On enoxaparin; dose adjusted for kidney function Time spent in the patient's overall evaluation,decision-making process, review of diagnostic data, adjustment of management, discussion with other providers, nursing nursing and ancillary staff involved in patient's care documentation, 50 Minutes Charges/Coding Visit Charges Inpatient E&M: 52179 [facility] Hosp L3
--- NOTE | 2023-05-16 10:00 | NM_ITS ---
CLINICAL: 57-year-old male with history of elevation of the d-dimer. VENTILATION-PERFUSION LUNG SCINTIGRAPHY COMPARISON: Plain film chest radiograph report 05/15/2023 FINDINGS: The patient was administered 51.3 mCi 99m Tc DTPA aerosol. The aerosol ventilation study demonstrates normal ventilation defined in the bilateral lung dumont. No segmental or subsegmental ventilatory defects are identified. There is no central clumping of the aerosol visualized. Swallowed aerosol is defined within the proximal-distal esophagus. Following the intravenous administration of 5.7 mCi of 99m Tc MAA, the pulmonary perfusion study reveals uniform perfusion throughout both lung dumont. There are no segmental or subsegmental perfusion defects consistently identified on review of sequential acquisitions-projections. NM/Lung Scan Vent/Perf IMPRESSION: 1. NORMAL 99m Tc DTPA aerosol ventilation/Tc 99m MAA pulmonary perfusion imaging examination, according to PIOPED II interpretive criteria. (Sotsman et al, Radiology 246: 941, 2008 Sotsadebayo et al, J Nucl Med 49: 1741, 2008). Electronically Signed: Tung Cárdenas DO at 11:06 EDT ,
--- NOTE | 2023-05-16 10:28 | CASEMGMT ---
SOLANGE NATARAJAN Assessment: Face to Face with pt for initial transition planning/care coordination assessment. SOLANGE NATARAJAN introduced self and role at [facility], pt voices understanding and consents to assessment. Pt is A&O x4 and answers all questions appropriately at this time. Pt just came back to floor. Pt lying in bed in no distress. Care providers, pharmacy, and demographics verified/updated. Admitting Dx: surgical preparation R perineal and perianal PCP:Adina Bhat NP Specialists:Sarah, plastic OR- sees at [facility] weekly; [facility]; Chad, cardio; Oli, nephro; Toby/Aury, pod Preferred Pharmacy: [facility] Insurance: A[employer] [facility]; [place] Prescription Benefit: yes LNOK: Shima Santos, ; Vinh Conteh, sson Living Arrangements: Pt lives with in a single story home with 5 steps to enter with a rail. Pt reports that he is I in ADL's and denies concerns at home. Transportation: Pt has not driven since mid January. Pt or children transport him to medical appts. DME:[facility]- pt shares with , states they have sufficient supply of strips and lancets; walking boot, cane, walker- doesn't use HHC/SNF: [facility] in the past, [facility] in the past Pt states no concerns with going home at time of dc. Pt states his performs dressing changes when needed and is comfortable with this. She obtains supplies for pt. He states if he does not have surgery on his wound, his will continue to do dressing changes. If pt has surgery and will have more or larger wounds, pt would be interested in HHC. He would like a list of agencies if this is the case as he would not prefer to have [facility] again. Provided pt with a local verbal in network list of DME companies should pt need oxygen, pt chose [employer]. Pt is currently on RA. Pt states no further concerns/needs. CM to follow. Advised pt to ask CM if any further question/concerns/needs arise, voices understanding. Pt Goal: Home Plan: Home vs Home with HHC pending if pt to have surgery this hospital stay Violette NARVAEZ CM
[2023-05-16 11:52] LABS: Bedside Glucose 359 mg/dL (74-106)
[2023-05-16 14:55] LABS: Bedside Glucose 458 mg/dL (74-106)
[2023-05-16 14:55] LABS: Bedside Glucose 424 mg/dL (74-106)
--- NOTE | 2023-05-16 16:55 | NURSING ---
PT JUST FINISHED EATING TACO TOVAR AND DRINKING SELENE ORANGE
[2023-05-16 18:35] LABS: Bedside Glucose 367 mg/dL (74-106)
[2023-05-17] VITALS (10 sets, daily range): BP systolic 176–184; BP diastolic 69–76; PULSE 67–90; RESP 14–18; TEMP 36.5–37.1; O2SAT 92–99
[2023-05-17 00:45] LABS: Bedside Glucose 397 mg/dL (74-106)
[2023-05-17] MEDS: Furosemide 40 MG/4 ML Vial IV (06:38)
[2023-05-17] MEDS: Acetaminophen 500 MG Tablet 1000 MG PO ×2 (06:38→13:08)
[2023-05-17] MEDS: Insulin Lispro 100 UNIT/ML INSULN.PEN SC ×2 (06:47→11:27)
[2023-05-17] MEDS: Ipratropium/Albuterol Sulfate 3 ML AMPUL.NEB INHALATION ×3 (07:14→14:00)
[2023-05-17 07:24] LABS: Bedside Glucose 261 mg/dL (74-106)
[2023-05-17 07:36] LABS: Absolute Lymphocyte Count 0.98 X10^3/uL (0.83-4.51); Absolute Neutrophil Count 20.1 X10^3/uL (2.0-7.7); Basophil# 0.02 X10^3/uL; Basophil% 0.1 % (0-1); Hematocrit 25.8 % (40-54); Hemoglobin 8.1 g/dL (13.0-16.5); Lymphocyte # 0.98 X10^3/ul (0.83-4.51); Lymphocyte % 4.5 % (19-41); Mean Corp Hgb Conc 31.4 g/dL (32-36); Mean Corpuscular Hgb 26.5 pg (27.0-32.0); Mean Corpuscular Volume 84.3 fL (80-94); Mean Platelet Vol. 9.4 fl (6.2-12.0); Monocyte% 1.4 % (0-10); NRBC Flagged by Analyzer 0 % (0-5); Neutrophil # 20.07 X10^3/uL (2.7-7.7); Neutrophil % 92.9 % (47-70); POSITIVE DIFFERENTIAL YES; Platelet Count 334 K/mm3 (150-450); RBC Distribution Width CV 15.8 % (11.6-14.6); RBC Distribution Width SD 48.3 fl (35.1-43.9); Red Blood Count 3.06 M/mm3 (4.6-6.2); White Blood Count 21.6 K/mm3 (4.4-11.0)
--- NOTE | 2023-05-17 07:43 | PCM.PN.HOSP ---
Reason for Visit Reason for Visit: Diagnoses Hypoxemia (05/15/23) Subjective Subjective Patient seen breathing is significantly improved and currently on room air maintaining appropriate oxygen saturation Objective Data Objective Data Vital Signs: Vital Signs Temp Pulse Resp BP Pulse Ox O2 Del Method O2 Flow Rate 97.7 F L 72 18 179/69 H 99 Room Air 2 05/17/23 03:24 05/17/23 07:15 05/17/23 07:15 05/17/23 03:24 05/17/23 07:15 05/17/23 07:15 05/15/23 22:00 Oxygen Flow Rate (L/min) 2 Oxygen Delivery Method Room Air Weight: 76 kg Body Mass Index (BMI) 25.4 Intake & Output: Intake and Output for Last 24 Hours 05/15/23 05/16/23 05/17/23 23:59 23:59 23:59 Intake Total 1266.25 / 1266.25 0 / 0 Output Total 1025 / 1025 Balance 241.25 / 241.25 0 / 0 Lab / Micro Data 05/17/23 06:20 05/16/23 06:23 Labs: Laboratory Results - last 24 hr 05/15/23 22:09: POC Glucose 458 H* 05/15/23 22:14: POC Glucose 424 H 05/16/23 06:23: Sodium 137, Potassium 3.9, Chloride 107, Carbon Dioxide 23.0, Anion Gap 7, BUN 16, Creatinine 2.55 H, Estim Creat Clear Calc 30.18, Est GFR (MDRD) Af Amer 33 L, Est GFR (MDRD) Non-Af 28 L, BUN/Creatinine Ratio 6.3 L, Glucose 348 H, Calcium 8.4 L, Phosphorus 2.4 L, Magnesium 1.7 05/16/23 11:34: POC Glucose 359 H 05/16/23 16:10: POC Glucose 367 H 05/16/23 23:37: POC Glucose 397 H 05/17/23 06:45: POC Glucose 261 H Micro: Microbiology 05/15/23 13:22 Mucosa - Nasopharyngeal Coronavirus COVID-19 PCR - Final Radiography Diagnostic Testing: Radiology Impression Lung Scan-VQ NM 05/16/23 10:00 IMPRESSION: 1. NORMAL 99m Tc DTPA aerosol ventilation/Tc 99m MAA pulmonary perfusion imaging examination, according to PIOPED II interpretive criteria. (Soshanta et al, Radiology 246: 941, 2008 Man et al, J Nucl Med 49: 1741, 2008). Electronically Signed: Tung Cárdenas, at 11:06 EDT , Physical Exam Narrative GENERAL: Cooperative HEENT: Atraumatic; normocephalic EYES; Anicteric, Normal Conjunctiva NECK; supple, normal thyroid, RESPIRATORY: Diminished to auscultation CARDIOVASCULAR: Regular S1 S2, GI: soft, normoactive bowel sounds, : No Renal angle tenderness; EXTREMITIES: No edema, no clubbing, MUSCULOSKELETAL: no muscle wasting NEURO: Awake; no lateralizing signs. SKIN: No Rash PSYCH; Flat affect Assessment & Plan Assessment/Plan (1) Hypoxia: PLAN: Plan 57-year-old gentleman admitted with hypoxia prior to undergoing surgical intervention left gluteal hidradenitis suprativa 1. Acute hypoxia ? Multifactorial including suspected CHF and COPD ? 05/16/2023 patient is currently being weaned off supplemental oxygen. ? 05/17/2023 patient has been weaned off room air 2. Acute congestive heart failure?with preserved ejection fraction ? Initial workup did demonstrate vascular congestion consistent with congestive heart failure. Admitted to monitored bed patient started on diuretic therapy with furosemide. Also placed on strict input and output, daily weight low-sodium diet 2D echo ordered for EF assessment ? 05/16/2023 patient has had a good response to furosemide. 2D echo scheduled to be performed ? 05/17/2019 four 2D echo demonstrated Normal LV size. Mild concentric left ventricular hypertrophy. The left ventricular ejection fraction is 65 %. Left ventricular systolic function is normal. The global longitudinal strain is normal. The global longitudinal strain = -17.9 % (normal). 3. COPD with acute exacerbation - Patient started on bronchodilator treatment, systemic steroid as well as antibiotic therapy. Patient placed on oxygen titrated to keep saturation greater than 90. ? 05/16/2023; patient still has persistent cough 4. Hidradenitis suppurativa involving the groin ? Patient is followed by Dr. Smith and was scheduled to undergo excision prior to becoming hypoxic leading to a management of the intervention. Plan is for patient to follow-up with Dr. Johnson following medical stabilization for rescheduling 5. Hypertension - Blood pressure controlled, home medications continued with dose adjustment as needed 6. Diabetes mellitus type II -patient's oral hypoglycemics held. Placed on long acting insulin, Accu-Cheks a.c. and at bedtime and covered with sliding scale insulin ? 05/17/2023 patient with hyperglycemia counseled on the need to avoid refined sugar drinks. 7. Chronic kidney disease stage IV ? Secondary to diabetic nephropathy patient is followed by Dr. Baird with nephrology as outpatient 8. Anemia - Secondary to chronic disorder monitoring H&H and transfuse if patient becomes symptomatic or hemoglobin falls below 7 9. Tobacco dependence - Counseled on cessation, offered nicotine patch for tobacco cravings 10. Elevated D-dimer ? Ordered bilateral lower extremity venous duplex as well as VQ scan ? 05/16/2023 venous duplex came back negative for DVT awaiting results of VQ scan 11. DVT prophylaxis - On enoxaparin; dose adjusted for kidney function 12. Leukocytosis ? Attributed to patient being on concomitance there is no evidence of infection Time spent in the patient's overall evaluation,decision-making process, review of diagnostic data, adjustment of management, discussion with other providers, nursing nursing and ancillary staff involved in patient's care documentation, 35 minutes Charges/Coding Visit Charges Inpatient E&M: 82830 Subs Hosp L2
[2023-05-17 07:46] LABS: Differential Indicated SCAN CRITERIA MET
[2023-05-17] MEDS: Carvedilol 25 MG Tablet PO (07:55)
[2023-05-17] MEDS: NIFEdipine 90 MG Tablet PO (07:55)
[2023-05-17] MEDS: Tolterodine Tartrate 2 MG CAP.SA PO (07:56)
[2023-05-17] MEDS: Clopidogrel Bisulfate 75 MG Tablet PO (07:56)
[2023-05-17] MEDS: Azithromycin 250 MG Tablet 500 MG PO (07:56)
[2023-05-17] MEDS: Enoxaparin 30 MG/0.3 ML Syringe SC (07:56)
--- NOTE | 2023-05-17 08:19 | PCM.DC.SUM ---
Providers Date of Admission: 05/15/23 Date of Discharge: 05/17/23 Primary Care Physician: Adina Bhat, DEVONTE Consultations 05/15/23 12:19 Consult: Onc/Wound/child & adolescent psychiatrist Routine Comment: Reason For Visit: Surgical Preparation Right Perineal and Perianal Diagnosis Discharge Diagnosis (1) Hypoxia: Status: Acute Code(s): R09.02 - Hypoxemia Plan 57-year-old gentleman admitted with hypoxia prior to undergoing surgical intervention left gluteal hidradenitis suprativa 1. Acute hypoxia ? Multifactorial including suspected CHF and COPD ? 05/16/2023 patient is currently being weaned off supplemental oxygen. ? 05/17/2023 patient has been weaned off room air 2. Acute congestive heart failure?with preserved ejection fraction ? Initial workup did demonstrate vascular congestion consistent with congestive heart failure. Admitted to monitored bed patient started on diuretic therapy with furosemide. Also placed on strict input and output, daily weight low-sodium diet 2D echo ordered for EF assessment ? 05/16/2023 patient has had a good response to furosemide. 2D echo scheduled to be performed ? 05/17/2019 four 2D echo demonstrated Normal LV size. Mild concentric left ventricular hypertrophy. The left ventricular ejection fraction is 65 %. Left ventricular systolic function is normal. The global longitudinal strain is normal. The global longitudinal strain = -17.9 % (normal). 3. COPD with acute exacerbation - Patient started on bronchodilator treatment, systemic steroid as well as antibiotic therapy. Patient placed on oxygen titrated to keep saturation greater than 90. ? 05/16/2023; patient still has persistent cough 4. Hidradenitis suppurativa involving the groin ? Patient is followed by Dr. Smith and was scheduled to undergo excision prior to becoming hypoxic leading to a management of the intervention. Plan is for patient to follow-up with Dr. Johnson following medical stabilization for rescheduling 5. Hypertension - Blood pressure controlled, home medications continued with dose adjustment as needed 6. Diabetes mellitus type II -patient's oral hypoglycemics held. Placed on long acting insulin, Accu-Cheks a.c. and at bedtime and covered with sliding scale insulin ? 05/17/2023 patient with hyperglycemia counseled on the need to avoid refined sugar drinks. 7. Chronic kidney disease stage IV ? Secondary to diabetic nephropathy patient is followed by Dr. Baird with nephrology as outpatient 8. Anemia - Secondary to chronic disorder monitoring H&H and transfuse if patient becomes symptomatic or hemoglobin falls below 7 9. Tobacco dependence - Counseled on cessation, offered nicotine patch for tobacco cravings 10. Elevated D-dimer ? Ordered bilateral lower extremity venous duplex as well as VQ scan ? 05/16/2023 venous duplex came back negative for DVT awaiting results of VQ scan 11. DVT prophylaxis - On enoxaparin; dose adjusted for kidney function 12. Leukocytosis ? Attributed to patient being on concomitance there is no evidence of infection Time spent in the patient's overall evaluation,decision-making process, review of diagnostic data, adjustment of management, discussion with other providers, nursing nursing and ancillary staff involved in patient's care documentation, 35 minutes Medications at Discharge Home Medications guselkumab 100 mg/mL subcutaneous syringe (Tremfya) 100 mg subcut Q4W ARTHRITIS 04/23/22 oxybutynin chloride 5 mg tablet,extended release 24 hr 5 mg PO DAILY OVERACTIVE BLADDER 10/01/22 clopidogrel 75 mg tablet 75 mg PO DAILY #30 tabs 11/14/22 pioglitazone 30 mg tablet 30 mg PO DAILY #30 tabs 12/28/22 carvedilol 25 mg tablet 25 mg PO BID #60 tabs 03/01/23 glimepiride 2 mg tablet 2 mg PO DAILY #30 tabs 03/01/23 nifedipine 90 mg tablet,extended release 24 hr 90 mg PO DAILY #90 tabs 05/08/23 azithromycin 250 mg tablet 500 mg (2 x 250 mg) PO Q24 #3 tabs 05/17/23 furosemide 40 mg tablet (Lasix) 40 mg PO DAILY #30 tabs 05/17/23 prednisone 20 mg tablet 40 mg (2 x 20 mg) PO BREAKFAST #10 tabs 05/17/23 Physical Exam Narrative GENERAL: Cooperative HEENT: Atraumatic; normocephalic EYES; Anicteric, Normal Conjunctiva NECK; supple, normal thyroid, RESPIRATORY: Diminished to auscultation CARDIOVASCULAR: Regular S1 S2, GI: soft, normoactive bowel sounds, : No Renal angle tenderness; EXTREMITIES: No edema, no clubbing, MUSCULOSKELETAL: no muscle wasting NEURO: Awake; no lateralizing signs. SKIN: No Rash PSYCH; Flat affect Weight / BMI Weight Weight: 76 kg Body Mass Index (BMI) 25.4 ABG / Lab / Microbiology Data 05/17/23 06:20 04/04/24 06:23 Laboratory: Laboratory Results - last 24 hr 05/15/23 22:09: POC Glucose 458 H* 05/15/23 22:14: POC Glucose 424 H 05/16/23 11:34: POC Glucose 359 H 05/16/23 16:10: POC Glucose 367 H 05/16/23 23:37: POC Glucose 397 H 05/17/23 06:20: WBC 21.6 H, RBC 3.06 L, Hgb 8.1 L, Hct 25.8 L, MCV 84.3, MCH 26.5 L, MCHC 31.4 L, RDW Std Deviation 48.3 H, RDW Coeff of Dana 15.8 H, Plt Count 334, MPV 9.4, Immature Gran % (Auto) 1.100 H, Neut % (Auto) 92.9 H, Lymph % (Auto) 4.5 L, Vernon % (Auto) 1.4, Eos % (Auto) 0.0, Baso % (Auto) 0.1, Absolute Neuts (auto) 20.1 H, Absolute Lymphs (auto) 0.98, Nucleated RBC % 0 05/17/23 06:45: POC Glucose 261 H Microbiology: Microbiology 05/15/23 13:22 Mucosa - Nasopharyngeal Coronavirus COVID-19 PCR - Final Radiography Diagnostic Testing: Radiology Impression Lung Scan-VQ NM 05/16/23 10:00 IMPRESSION: 1. NORMAL 99m Tc DTPA aerosol ventilation/Tc 99m MAA pulmonary perfusion imaging examination, according to PIOPED II interpretive criteria. (Sotsman et al, Radiology 246: 941, 2008 Sotsadebayo et al, J Nucl Med 49: 1741, 2008). Electronically Signed: Tung Cárdenas DO at 11:06 EDT , D/C Instructions Discharge Diet: 1800 Calorie Control Diet, 8 Cup Fluid Restriction and 2000 mg Sodium Diet Discharge Activity: Return to Normal Activity Call your doctor if you observe: Fever of 101 or Higher, Shortness of breath, Fainting spells and Chest pain Meaningful Use Info Meaningful Use Diagnoses (Choose all that apply): CHF CHF PAULINE/ARB ordered at discharge?: No Reason PAULINE/ARB not ordered?: Normal EF Documented LVEF (%): 65 Discharge Plan Admission Admit Date/Time: 05/15/23 11:46 Attending Provider: Cortez Smith Primary Care Provider: Adina Bhat NP Discharge Orders/Prescriptions Prescriptions: New azithromycin 250 mg Tablet 500 mg PO Q24 Qty: 3 0RF prednisone 20 mg Tablet 40 mg PO BREAKFAST Qty: 10 0RF furosemide [Lasix] 40 mg tablet 40 mg PO DAILY Qty: 30 0RF Continued Tremfya 100 mg/mL syringe 100 mg subcut Q4W oxybutynin chloride 5 mg tablet extended release 24hr 5 mg PO DAILY pioglitazone 30 mg tablet 30 mg PO DAILY Qty: 30 12RF carvedilol 25 mg tablet 25 mg PO BID Qty: 60 12RF Rx Instructions: must administer with a meal/food glimepiride 2 mg tablet 2 mg PO DAILY Qty: 30 12RF clopidogrel 75 mg tablet 75 mg PO DAILY Qty: 30 11RF nifedipine 90 mg tablet extended release 24hr 90 mg PO DAILY Qty: 90 3RF Referrals / Follow Up: Adina Bhat NP, [employer] [Primary Care Provider] - Disposition Disposition (needs filled in before D/C Order can be placed): Home, Self Care Charges/Coding Visit Charges Inpatient E&M: 19018 Disch Hosp >30min
[2023-05-17 08:25] LABS: Anion Gap 7 (5-15); BUN 21 mg/dL (7-18); BUN/Creat Ratio 7.8 RATIO (10-20); Calcium,Total 8.4 mg/dL (8.5-10.1); Chloride 105 mmol/L (98-107); EST Glomerular Filtration Rate 26 mL/min (>60); Est Glom Filt Rate - Afr Amer 31 mL/min (>60); Glucose 268 mg/dL (74-106); Potassium 3.9 mmol/L (3.5-5.1); Sodium Level 137 mmol/L (136-145)
--- NOTE | 2023-05-17 09:09 | CASEMGMT ---
SOLANGE CM to pt room regarding DC planning. Pt DC order placed. Pt states that his tends to his wound care and also that he goes to the wound center once per week. Pt denied the need for HHC at this time. Pt denies all other home going needs. Pt states that his will pick him up from [facility] at 1600 today.
--- NOTE | 2023-05-17 09:36 | PHA.DC.MC.R ---
Pharmacy [facility] has performed discharge medication reconciliation and counseling for this patient. The patient's discharge medication list was reviewed for discrepancies and discrepancies were resolved. The patient was counseled on the following discharge medications and changes in medications for homegoing were reviewed. The Reason for Use, instructions for use, and potential side effects were reviewed for all new medications. The patient's questions regarding all of their medications were answered. 1. Prednisone 40 mg PO daily x 5 days 2. Azithromycin 500 mg PO daily x 3 days 3. Furosemide 40 mg PO daily The patient was able to verbally demonstrate an understanding of their discharge medications. Medications at Discharge Home Medications guselkumab 100 mg/mL subcutaneous syringe (Tremfya) 100 mg subcut Q4W ARTHRITIS 04/23/22 oxybutynin chloride 5 mg tablet,extended release 24 hr 5 mg PO DAILY OVERACTIVE BLADDER 10/01/22 clopidogrel 75 mg tablet 75 mg PO DAILY #30 tabs 11/14/22 pioglitazone 30 mg tablet 30 mg PO DAILY #30 tabs 12/28/22 carvedilol 25 mg tablet 25 mg PO BID #60 tabs 03/01/23 glimepiride 2 mg tablet 2 mg PO DAILY #30 tabs 03/01/23 nifedipine 90 mg tablet,extended release 24 hr 90 mg PO DAILY #90 tabs 05/08/23 azithromycin 250 mg tablet 500 mg (2 x 250 mg) PO Q24 #3 tabs 05/17/23 furosemide 40 mg tablet (Lasix) 40 mg PO DAILY #30 tabs 05/17/23 prednisone 20 mg tablet 40 mg (2 x 20 mg) PO BREAKFAST #10 tabs 05/17/23
[2023-05-17 12:10] LABS: Bedside Glucose 393 mg/dL (74-106)
[2023-05-17] MEDS: Furosemide 40 MG Tablet PO (13:08)
== END 2023-05-17 15:26 | disposition home or self-care (01) | DRG 190 ==
LOC: SDC 12:54 → ICU 12:54 → MS3 17:35
PROVIDERS: Anesthesiology; Admitting Provider Internal Medicine; PCP Nurse Practitioner; Referring Provider Surgery; Visit Provider Surgery
DX: J44.1 Chronic obstructive pulmonary disease with (acute) exacerbation (principal); I50.31 Acute diastolic (congestive) heart failure; I13.0 Hypertensive heart and chronic kidney disease with heart failure and stage 1 through stage 4 chronic kidney disease, or unspecified chronic kidney disease; N18.4 Chronic kidney disease, stage 4 (severe); E11.22 Type 2 diabetes mellitus with diabetic chronic kidney disease; E11.51 Type 2 diabetes mellitus with diabetic peripheral angiopathy without gangrene; D63.8 Anemia in other chronic diseases classified elsewhere; L73.2 Hidradenitis suppurativa; I25.10 Atherosclerotic heart disease of native coronary artery without angina pectoris; F17.210 Nicotine dependence, cigarettes, uncomplicated; Z79.84 Long term (current) use of oral hypoglycemic drugs; Z79.899 Other long term (current) drug therapy; Z95.5 Presence of coronary angioplasty implant and graft; Z95.1 Presence of aortocoronary bypass graft; Z86.73 Personal history of transient ischemic attack (TIA), and cerebral infarction without residual deficits; Z53.8 Procedure and treatment not carried out for other reasons
CPT/HCPCS: 36415; 36600; 71045; 78582; 80048; 80053; 82803; 82962; 83735; 83880; 84100; 84484; 85025; 85027; 85379; 87635; 93005; 93306; 93970; 94640; 94667; 94668; 94762; 99252; A9540; A9567; J7030; J7120; A4216; G0463; J1940; J2405

== ENCOUNTER 2023-05-27 15:00 | Outpatient (RCR) | payer MEDICARE, BC, SELFPAY ==
[2023-05-13 00:18] VITALS: BP 217/70; PULSE 72; RESP 18; TEMP 35.6
--- NOTE | 2023-05-15 09:31 | PCM.HP.STD ---
HPI - General HPI Narrative SVEN DUONG, is a 57 M who presents [facility] Medical History (Updated 05/14/23 @ 21:[address] Cortez Smith MD) Abscess of buttock, left Abscess of left thigh Abscess of right groin Abscess of scrotal wall Abscess, perineum Acute blood loss anemia Acute kidney injury Acute kidney injury superimposed on chronic kidney disease Acute post-operative pain Acute postoperative anemia due to expected blood loss Alcohol use Anemia Anemia of chronic disease Ankle pain Ankle pain Arthritis Back pain Back pain due to injury Cardiology follow-up encounter Cellulitis Chronic kidney disease Chronic obstructive pulmonary disease Chronic pain Chronic ulcer of buttock Chronic ulcer of left thigh with fat layer exposed Colostomy in place Complete edentulism, class III Complicated open wound of left thigh COPD (chronic obstructive pulmonary disease) Coronary artery disease Coronary artery disease Cough Debility Diabetes Diabetes mellitus Diabetes mellitus type 2, uncontrolled, with complications Diabetes type 2, uncontrolled Diverticulitis DM type 2, goal HbA1c < 7.5% Edema of both legs Elevated serum creatinine Gait instability Gastric ulcer Hemoglobin A1c greater than 8.0 percent Hidradenitis suppurativa of anus Hidradenitis suppurativa of anus History of diverticulitis History of echocardiogram History of edema History of pain when walking History of stress test History of ulceration Hydradenitis Hydradenitis Hyperlipidemia Hyperlipidemia associated with type 2 diabetes mellitus Hypertension Hypertension Hypokalemia Iron deficiency anemia Kidney disease Lupus (systemic lupus erythematosus) Malnutrition Malnutrition Nausea and vomiting Nicotine dependence Non-healing open wound of right groin Nonhealing skin ulcer Open wound of buttock with complication Open wound of left buttock with complication Open wound of scrotum Open wound of scrotum with complication Pain in the groin Peripheral arterial disease Pneumonia involving right lung Post-operative pain Proteinuria due to type 2 diabetes mellitus PVD (peripheral vascular disease) Shingles Shingles Shortness of breath on exertion Skin ulcer of scrotum Smoker Suppurative hidradenitis Syncope TIA (transient ischemic attack) Tobacco dependence syndrome Ulcer of left groin with fat layer exposed Ulcer of perianal area with fat layer exposed Ulcer of perineum with fat layer exposed Ulcer of perineum with fat layer exposed Ulcer of right groin with fat layer exposed Ulcer of scrotum Weakness Wears glasses Weight gain with edema Wound infection Home Medications guselkumab 100 mg/mL subcutaneous syringe (Tremfya) 100 mg subcut Q4W ARTHRITIS 04/23/22 [History Last Taken 09/26/22] oxybutynin chloride 5 mg tablet,extended release 24 hr 5 mg PO DAILY OVERACTIVE BLADDER 10/01/22 [History Last Taken 10/02/22] clopidogrel 75 mg tablet 75 mg PO DAILY #30 tabs 11/14/22 [Rx Last Taken 05/08/23] pioglitazone 30 mg tablet 30 mg PO DAILY #30 tabs 12/28/22 [Rx Last Taken Unknown] carvedilol 25 mg tablet 25 mg PO BID #60 tabs 03/01/23 [Rx Last Taken 05/15/23 05:30] glimepiride 2 mg tablet 2 mg PO DAILY #30 tabs 03/01/23 [Rx Last Taken Unknown] nifedipine 90 mg tablet,extended release 24 hr 90 mg PO DAILY #90 tabs 05/08/23 [Rx Last Taken 05/15/23 05:30] Allergy/AdvReac Type Severity Reaction Status Date / Time Penicillins Allergy Unknown Verified 05/15/23 07:37 Sulfa (Sulfonamide Allergy Unknown Verified 05/15/23 07:37 Antibiotics) bupropion [From Wellbutrin] AdvReac Severe change in Verified 05/15/23 07:37 personality ,meanness and smoked more Family History Aunt Lung disease lung cancer Father Heart disease Hypertension Family history of high cholesterol Diabetes Mother Diabetes Daughter Epilepsy Surgical History (Updated 05/14/23 @ 21:[address] Cortez Smith MD) History of coronary artery stent placement History of excision of lesion History of incision and drainage History of removal of cyst History of tonsillectomy and adenoidectomy Hx of hernia repair Social History household members: spouse Smoking Status: Current every day smoker tobacco type: cigarettes counseling given: provider counseling alcohol intake: never substance use type: does not use caffeine: Yes (7) Type: coffee additional social history: DOES NOT TAKE ASPIRIN DOES NOT TAKE IBUPROFEN
[2023-05-22 14:49] VITALS: BP 185/58; PULSE 69; RESP 16; TEMP 36.2
--- NOTE | 2023-05-22 17:04 | PCM.WC.PN ---
History of Present Illness Date of Service: 05/22/23 Chief Complaint: Nonhealing hidradenitis right perineal and perianal areas and nonhealing ulcer left ischial (proximal posterior thigh) area History of Wound: 's.57 year old male who has a history significant for hidradenitis, DM type II, HTN, CAD, arterial insufficiency, and smoker. He had surgery on 11/23/21 for 1. Surgical preparation right inguinal area with excision suppurative hidradenitis abscess (112 cm2, and 192 cm2 total). 2. Surgical preparation right scrotum with incision and drainage and excision suppurative hidradenitis abscess (50 cm2, and 192 cm2 total). 3. Surgical preparation right perineal area with excision suppurative hidradenitis abscess (30 cm2, and 192 cm2 total). Operative wound cultures from 11/23/21 positive for Streptococcus constellatus and Corynebacterium striatum. He was placed on Cefdinir and has finished them. A wound culture was obtained on 04/01/23. It was positive for Klebsiella aerogenes, Staphylococcus aureus, and Anaerobic cocci. He was started on Doxycycline and Flagyl. The Flagyl is done. He had stomach issues when on the Doxycycline. He has finished the Levaquin. Wound care - Jacqueline. Today he denies fevers, chills, nausea and vomiting. He states that he has a good appetite. The pain in the left ischial (proximal posterior thigh) ulcer has improved. He's had intermittent hidradenitis flare-ups in his right perineal and perianal areas in the Fall. Recently those areas have been stable. Prealbumin from 04/23/22 was 19.8. Encourage nutritional supplementation with protein to help the healing process. Patient is diabetic. His HgbA1c from 03/01/23 was 8.5. For elective surgeries, the HgbA1c needs to be less than 8. He came to [facility] on 02/18/23 and was sent to the ED because his systolic BP was 235/99 and he was having visual problems. He was worked up and released home with a change in one of his BP meds (Carvedilol) and stopping one (Clonidine). He is in the process of getting glasses. He was scheduled for surgery on 05/15/23. Prior to intubation he became acutely hypoxic with saturation in the 70's. The surgery was cancelled and he was admitted for his hypoxia. The workup showed some CHF with exacerbation of his COPD. Progress of Wound: Slightly improved. Objective Data Objective Data Vital Signs: Vital Signs Temp Pulse Resp BP O2 Del Method 97.2 F L 69 16 185/58 H Room Air 05/22/23 14:49 05/22/23 14:49 05/22/23 14:49 05/22/23 14:49 05/22/23 14:49 Oxygen Delivery Method Room Air Intake & Output: Intake and Output for Last 24 Hours 05/15/23 05/16/23 05/17/23 23:59 23:59 23:59 Intake Total 1266.25 / 1266.25 0 / 0 Output Total 1025 / 1025 Balance 241.25 / 241.25 0 / 0 Prealbumin from 04/23/22 was 19.8. Encourage nutritional supplementation with protein to help the healing process. Patient has diabetes mellitus. His HgbA1c from 03/01/23 was 8.5. For elective surgeries, the HgbA1c needs to be less than 8. Lab / Micro Data Attestation: I reviewed the patient's lab results. Lab results narrative: Patient has diabetes mellitus.? His HgbA1c from 03/01/23 was 8.5.? For elective surgeries, the HgbA1c needs to be less than 8. Labs: Laboratory Results - last 24 hr 05/15/23 22:09: POC Glucose 458 H* 05/15/23 22:14: POC Glucose 424 H 05/16/23 06:23: Sodium 137, Potassium 3.9, Chloride 107, Carbon Dioxide 23.0, Anion Gap 7, BUN 16, Creatinine 2.55 H, Estim Creat Clear Calc 30.18, Est GFR (MDRD) Af Amer 33 L, Est GFR (MDRD) Non-Af 28 L, BUN/Creatinine Ratio 6.3 L, Glucose 348 H, Calcium 8.4 L, Phosphorus 2.4 L, Magnesium 1.7 05/16/23 11:34: POC Glucose 359 H 05/16/23 16:10: POC Glucose 367 H 05/16/23 23:37: POC Glucose 397 H 05/17/23 06:45: POC Glucose 261 H Micro: Microbiology 05/15/23 13:22 Mucosa - Nasopharyngeal Coronavirus COVID-19 PCR - Final Radiography Diagnostic Testing: Radiology Impression Lung Scan-VQ NM 05/16/23 10:00 IMPRESSION: 1. NORMAL 99m Tc DTPA aerosol ventilation/Tc 99m MAA pulmonary perfusion imaging examination, according to PIOPED II interpretive criteria. (Soshanta et al, Radiology 246: 941, 2008 Soshanta et al, J Nucl Med 49: 1741, 2008). Electronically Signed: Tung Avi, at 11:06 EDT , Charges/Coding Procedures Integumentary [id number]: [id number] Ayla subq tissue 20 sq cm/< (ICD-10 - L97.122, L89.323, L98.492, N50.89, L73.2, E11.65, R73.09, F17.200) Debridement Note Debridement Note Wound debrided: #8 Left ischial/proximal posterior thigh area. Laterality: Left Wound Grade/Stage: 3. Type of Debridement: Excisional debridement Anesthesia Used: 5% Lidocaine Gel Depth: Down to and including healthy tissue and in the subcutaneous layer Percentage of wound debrided: 100 Instrument Used: 3mm curette Tissue Removed: subcutaneous tissue. Severity: Fat Layer Exposed Amount of bleeding with debridement: Mild Bleeding Controlled with: Pressure and Compression and gauze Patient tolerated procedure: Patient tolerated procedure well Post-Debridement Measurements and Additional Note: Post-Debridement Measurements/Treatment - Nurse 1 - General Ulcer Assessment Start: 05/22/23 14:48 Freq: Status: Active Protocol: [email or web address] Activity Type Activity Date Activity User E-sign Co-sign Detail Recorded Client Recorded Date Recorded By Document 05/22/23 14:49 [facility] Desktop 05/22/23 14:59 [facility] 05/22/23 14:49 - Today's Visit Information Type of service Follow-up Visit (Physician/MANAGER TREASURY ) Arrival Mode Ambulatory Transfer Assistance None Patient Identification Verified (Name & Yes ) Patient Requires Transmission-Based No Precautions Vital Signs Temperature (97.8 F-99.1 F) 97.2 F L Temperature Source Temporal Pulse Rate (60-100) 69 Pulse Location Monitor Respiratory Rate (12-18) 16 Respiratory rate source Observation Oxygen Delivery Method Room Air Blood Pressure (90/60-120/80) 185/58 H Blood Pressure Mean (mm Hg) 100 Source Monitor Position Sitting Blood Pressure Location Right Arm History Since Last Visit- (Skip if this is Patient's initial visit) Have you changed medications since your No last visit? Any new allergies or adverse reactions No Had a fall/change in ADL's that may No increase risk of falls Signs or symptoms of abuse and/or No neglect since last visit Have you been in the hospital since your No last visit? Has dressing in place as prescribed No Has compression in place as prescribed N/A Has offloadiing in place as prescribed N/A Experienced any changes in pain level or No management Left Footwear Regular Shoe Right Footwear Regular Shoe Pain Scale: 0-10 Numeric Is Patient Pain Free? Yes WC - Nurse 1 - General Ulcer Measurement Start: 05/22/23 14:48 Freq: Status: Active Protocol: Activity Type Activity Date Activity User E-sign Co-sign Detail Recorded Client Recorded Date Recorded By Document 05/22/23 14:49 [facility] Desktop 05/22/23 14:59 [facility] 05/22/23 14:49 Wound Center Nurse 1 #8 L Ischial Cluster -Combined with other wound No -Current Size (cm) - Length 0.5 -Current Size (cm) - Width 1.3 -Current Size (cm) - Depth 0.1 -Total Square Cm 0.65 -Date of Last Picture (Recall this 05/22/23 field) -Photo Taken No -Epithelialization Small 1-33% -Tunneling No -Undermining/Tunneling No -Circular Undermining No -Exudate Amt Medium -Exudate Type Serosanguineous -Wound Margin Flat & Intact -Granulation Amt Large (67-100%) -Granulation Quality [place] -Slough/Fibrin Yes -Necrosis Amt Small (1-33%) -Necrotic Tissue Type Adherent Slough -Texture ([place]imbola-wound Skin Appearance) Assessed -Moisture ([place]imbola-wound Skin Appearance) Assessed,Dry/ Scaly -Color ([place]ola-wound Skin Appearance) Assessed -Temperature ([place]imbola-wound Skin No Abnormality Appearance) (Pt Warm) -Tenderness on Palpation ([place]imbola-wound No Skin Appearance) -Ulcer Cleansing Rinsed/ Irrigated with Saline -Foul Odor after Cleansing No -Anesthetic Used 5% Lidocaine Gel - Nurse 2 - General Ulcer CM Notes Start: 05/22/23 14:48 Freq: Status: Active Protocol: Activity Type Activity Date Activity User E-sign Co-sign Detail Recorded Client Recorded Date Recorded By Document 05/22/23 15:56 [facility] Desktop 05/22/23 16:01 MW 05/22/23 15:56 Wound Center Nurse 2 -Time 15:56 -Correct Patient Yes -Correct Side, Site, Position Yes -Correct Procedure Yes -Procedure Performed Yes -Type of Procedure Debridement -Clinical Debridement Subcutaneous -Tissue Removed Subcutaneous -Post Debridement (cm) - Length 0.6 -Post Debridement (cm) - Width 1.5 -Post Debridement (cm) - Depth 0.1 -Total Square (Post) (cm) 0.90 -Area of Debridement (cm) - Length 0.6 -Area of Debridement (cm) - Width 1.5 -Total Square (Area) (cm) 0.90 -Tunneling No -Undermining/Tunneling No -Circular Undermining No -Wound/Ulcer Outcome Not Healed -Ulcer Cleansing Rinsed/ Irrigated with Saline -Bioengineered Tissue No -Bleeding Controlled with Silver Nitrate -Treatment Response Procedure Tolerated Well -Offloading No -Debridement - Subq, 1st 20sq cm Yes Pain Scale: 0-10 Numeric Is Patient Pain Free? Yes - Nurse 3 - General Ulcer D/C NN Start: 05/22/23 14:48 Freq: Status: Active Protocol: Activity Type Activity Date Activity User E-sign Co-sign Detail Recorded Client Recorded Date Recorded By Document 05/22/23 16:02 MW Desktop 05/22/23 16:02 MW 05/22/23 16:02 Wound Care Center Nurse 3 #8 L Ischial Cluster -Ulcer Cleansing Rinsed/ Irrigated with Saline -Foul Odor after Cleansing No -Negative Pressure Wound Therapy N/A -Primary Dressing Applied Mepilex Border, Promogran Jacqueline Matter -Mepilex Border 1 -Promogran Jacqueline Matter 1 Treatment Response Procedure Tolerated Well Pain Scale: 0-10 Numeric Is Patient Pain Free? Yes Teaching: Wound Center Dressing Your Wound -Person Taught Patient -Teaching Method Discussion, Demonstration -Response to teaching Verbalize understanding WC - Visit Discharge Discharge Condition Stable Ambulatory Status Ambulatory Transportation Private Auto Accompanied by Medication Reconcilliation completed & No provided to patient/care provider Clinical Summary of Care Provided Yes Assessment/Plan Assessment/Plan (1) Chronic ulcer of left thigh with fat layer exposed: CODE(S): L97.122 - Non-pressure chronic ulcer of left thigh with fat layer exposed (2) Pressure sore of left ischium, stage 3: CODE(S): L89.323 - Pressure ulcer of left buttock, stage 3 (3) Ulcer of perineum with fat layer exposed: CODE(S): L98.492 - Non-pressure chronic ulcer of skin of other sites with fat layer exposed (4) Skin ulcer of scrotum: CODE(S): N50.89 - Other specified disorders of the male genital organs (5) Suppurative hidradenitis: CODE(S): L73.2 - Hidradenitis suppurativa (6) Diabetes type 2, uncontrolled: CODE(S): E11.65 - Type 2 diabetes mellitus with hyperglycemia QUALIFIERS: Glycemic state: with hyperglycemia Qualified Code(s): E11.65 - Type 2 diabetes mellitus with hyperglycemia (7) Hemoglobin A1c greater than 8.0 percent: CODE(S): R73.09 - Other abnormal glucose (8) Smoker: CODE(S): F17.200 - Nicotine dependence, unspecified, uncomplicated PLAN: Plan Continue Jacqueline to the left ischial ulcer. The right groin ulcer remains healed. Encouraged increase protein intake and increase Vitamin C intake. Will need supplemental protein to help heal this ulcer. His last Prealbumin from 04/23/22 was 19.8. Encouraged patient to stop smoking as it may have deleterious effects on wound healing. At the time of surgical debridement, will obtain a culture. A positive culture will necessitate antibiotic therapy. Patient sees dermatology who is managing the medical portion of his hidradenitis. His next surgery will be excision hidradenitis right perianal and perineal area and left ischial/proximal posterior thigh ulcer. The ulcer would be skin grafted. The hidradenitis ulcers will be left open and packed with Dakin's or Silver dressings. May not be able to maintain a seal with the VAC. His Creatinine was 3.07 on 02/18/23. The Potassium was 3.1 on 02/18/23. Hgb was 9.7 on 02/18/23. His Creatinine was 1.56 on 04/23/22. Since then it has ranged from a low of 2.38 on 10/09/22 to a high of 3.65 on 02/13/23. His PCP is managing the Creatinine. It needs to be trending downward before proceeding with the surgery. Patient is diabetic. His last HgbA1c was 8.5 on 03/01/23. For elective surgeries, the HgbA1c needs to be less than 8. A wound culture was obtained on 04/01/23. It was positive for Klebsiella aerogenes, Staphylococcus aureus, and Anaerobic cocci. He was started on Doxycycline and Flagyl. The Flagyl is finished. He had stomach issues with the Doxycycline. Continued the Levaquin which should cover the Staphylococcus aureus and has finished them. Will schedule surgical preparation right perineal and perianal areas with excision hidradenitis as well as excision left ischial/proximal posterior thigh ulcer next month. Will leave the wound open and proceed with wound care with Dakin's dressing changes. May not be able to maintain a seal if the VAC is used. May skin graft the left ischial/proximal posterior thigh ulcer. Patient was informed of the risks and complications of the procedure including alternatives to surgery. These were discussed with the patient personally. Patient voices understanding and wishes to proceed. Potential risks and complications included but not inclusive of bleeding, infection, seroma, hematoma, bruising, swelling, possible loss of skin graft, need for wound care, poor scarring, poor aesthetic outcome, intra operative cardiac or neurologic events, DVT, PE, and reaction to anesthesia. The surgery is scheduled for 05/15/23. It was cancelled due to acute hypoxia resulting from CHF and exacerbation of COPD. Will reschedule. Some medications were added. Followup one week.
--- NOTE | 2023-05-24 11:25 | WC ---
4.10.24 LT ISCHIAL CLUSTER
[2023-05-27 14:59] VITALS: BP 161/71; PULSE 60; RESP 16
--- NOTE | 2023-05-27 16:57 | PCM.WC.PN ---
History of Present Illness Date of Service: 05/27/23 Chief Complaint: Nonhealing hidradenitis right perineal and perianal areas and nonhealing ulcer left ischial (proximal posterior thigh) area History of Wound: 57 year old male who has a history significant for hidradenitis, DM type II, HTN, CAD, arterial insufficiency, and smoker. He had surgery on 11/23/21 for 1. Surgical preparation right inguinal area with excision suppurative hidradenitis abscess (112 cm2, and 192 cm2 total). 2. Surgical preparation right scrotum with incision and drainage and excision suppurative hidradenitis abscess (50 cm2, and 192 cm2 total). 3. Surgical preparation right perineal area with excision suppurative hidradenitis abscess (30 cm2, and 192 cm2 total). Operative wound cultures from 11/23/21 positive for Streptococcus constellatus and Corynebacterium striatum. He was placed on Cefdinir and has finished them. A wound culture was obtained on 04/01/23. It was positive for Klebsiella aerogenes, Staphylococcus aureus, and Anaerobic cocci. He was started on Doxycycline and Flagyl. The Flagyl is done. He had stomach issues when on the Doxycycline. He has finished the Levaquin. Wound care - Jacqueline. Today he denies fevers, chills, nausea and vomiting. He states that he has a good appetite. The pain in the left ischial (proximal posterior thigh) ulcer has improved. He's had intermittent hidradenitis flare-ups in his right perineal and perianal areas in the Fall. Recently those areas have been stable. Prealbumin from 04/23/22 was 19.8. Encourage nutritional supplementation with protein to help the healing process. Patient is diabetic. His HgbA1c from 03/01/23 was 8.5. For elective surgeries, the HgbA1c needs to be less than 8. He came to [facility] on 02/18/23 and was sent to the ED because his systolic BP was 235/99 and he was having visual problems. He was worked up and released home with a change in one of his BP meds (Carvedilol) and stopping one (Clonidine). He is in the process of getting glasses. He was scheduled for surgery on 05/15/23. Prior to intubation he became acutely hypoxic with saturation in the 70's. The surgery was cancelled and he was admitted for his hypoxia. The workup showed some CHF with exacerbation of his COPD. Progress of Wound: Left ischial ulcer is healed today. His hidradenitis on his buttocks is stable. He has 4 purple toes on his left foot. He is scheduled to see Dr. Jeffries later this week for this. He states his vision is bad and he can no longer drive. Objective Data Objective Data Vital Signs: Vital Signs Temp Pulse Resp BP O2 Del Method 97.2 F L 60 16 161/71 H Room Air 05/22/23 14:49 05/27/23 14:59 05/27/23 14:59 05/27/23 14:59 05/27/23 14:59 Oxygen Delivery Method Room Air Charges/Coding Visit Charges Office Visits / Consults: 88541 OV L3 Est 20min Physical Exam Const alert and oriented x3 General Appearance: cooperative Orientation / Consciousness: awake Nutritional Appearance: underweight HEENT normocephalic Eyes General Eye: normal appearance of both eyes Neck full ROM Lymph Lymphatic: no lymphedema noted Resp normal respiratory effort and normal air movement Effort and Inspection: able to speak in complete sentences Cardio regular rate and regular rhythm GI soft to palpation GI Narrative: Colostomy bag intact, stoma pink. Back/Spine normal ROM Extremity normal capillary refill Skin Wound Narrative: Left ischial is healed today. Neuro oriented x3 Psych mental status grossly normal, thought process normal and cooperative Debridement Note Debridement Note No debridement was completed: No debridement was completed today Post-Debridement Measurements and Additional Note: Post-Debridement Measurements/Treatment - Nurse 1 - General Ulcer Assessment Start: 05/22/23 14:48 Freq: Status: Active Protocol: ROC Activity Type Activity Date Activity User E-sign Co-sign Detail Recorded Client Recorded Date Recorded By Document 05/22/23 14:49 [facility] Desktop 05/22/23 14:59 [facility] Document 05/27/23 14:59 [facility] Desktop 05/27/23 15:08 BMF 05/22/23 05/27/23 14:49 14:59 - Today's Visit Information Type of service Follow-up Visit Follow-up Visit (Physician/BUSINESS INFO CONSULTANT (Physician/BUSINESS INFO CONSULTANT ) ) Arrival Mode Ambulatory Ambulatory Transfer Assistance None None Accompanied by Patient Identification Verified (Name & Yes Yes ) Patient Requires Transmission-Based No No Precautions Vital Signs Temperature (97.8 F-99.1 F) 97.2 F L Temperature Source Temporal Pulse Rate (60-100) 69 60 Pulse Location Monitor Monitor Respiratory Rate (12-18) 16 16 Respiratory rate source Observation Observation Oxygen Delivery Method Room Air Room Air Blood Pressure (90/60-120/80) 185/58 H 161/71 H Blood Pressure Mean (mm Hg) 100 101 Source Monitor Monitor Position Sitting Sitting Blood Pressure Location Right Arm Right Arm History Since Last Visit- (Skip if this is Patient's initial visit) Have you changed medications since your No No last visit? Any new allergies or adverse reactions No No Had a fall/change in ADL's that may No No increase risk of falls Signs or symptoms of abuse and/or No No neglect since last visit Have you been in the hospital since your No No last visit? Has dressing in place as prescribed No No Has compression in place as prescribed N/A N/A Has offloadiing in place as prescribed N/A N/A Experienced any changes in pain level or No No management Left Footwear Regular Shoe Regular Shoe Right Footwear Regular Shoe Regular Shoe Pain Scale: 0-10 Numeric Is Patient Pain Free? Yes Yes WC - Nurse 1 - General Ulcer Measurement Start: 05/22/23 14:48 Freq: Status: Active Protocol: Activity Type Activity Date Activity User E-sign Co-sign Detail Recorded Client Recorded Date Recorded By Document 05/22/23 14:49 [facility] Desktop 05/22/23 14:59 [facility] Document 05/27/23 14:59 [facility] Desktop 05/27/23 15:08 [facility] 05/22/23 05/27/23 14:49 14:59 [facility] Center Nurse 1 #8 L Ischial Cluster -Combined with other wound No No -Current Size (cm) - Length 0.5 0.1 -Current Size (cm) - Width 1.3 0.1 -Current Size (cm) - Depth 0.1 0.1 -Total Square Cm 0.65 0.01 -Date of Last Picture (Recall this 05/22/23 05/27/23 field) -Photo Taken No Yes -Epithelialization Small 1-33% Large 67-100% -Tunneling No No -Undermining/Tunneling No No -Circular Undermining No No -Exudate Amt Medium Medium -Exudate Type Serosanguineous Serosanguineous -Wound Margin Flat & Intact Flat & Intact -Granulation Amt Large (67-100%) Large (67-100%) -Granulation Quality [place] Red -Slough/Fibrin Yes No -Necrosis Amt Small (1-33%) None Present (0 %) -Necrotic Tissue Type Adherent Slough -Texture ([place]-wound Skin Appearance) Assessed Assessed -Moisture ([place]-wound Skin Appearance) Assessed,Dry/ Assessed Scaly -Color ([place]-wound Skin Appearance) Assessed Assessed -Temperature ([place]-wound Skin No Abnormality No Abnormality Appearance) (Pt Warm) (Pt Warm) -Tenderness on Palpation ([place]-wound No No Skin Appearance) -Ulcer Cleansing Rinsed/ Rinsed/ Irrigated with Irrigated with Saline Saline -Foul Odor after Cleansing No No -Anesthetic Used 5% Lidocaine 5% Lidocaine Gel Gel WC - Nurse 2 - General Ulcer CM Notes Start: 05/22/23 14:48 Freq: Status: Active Protocol: Activity Type Activity Date Activity User E-sign Co-sign Detail Recorded Client Recorded Date Recorded By Document 05/22/23 15:56 [facility] Desktop 05/22/23 16:01 MW Document 05/27/23 15:32 JF Laptop 05/27/23 15:34 JF 05/22/23 05/27/23 15:56 15:32 Wound Center Nurse 2 #8 L Ischial Cluster -Time 15:56 15:32 -Correct Patient Yes No -Correct Side, Site, Position Yes No -Correct Procedure Yes No -Procedure Performed Yes No -Type of Procedure Debridement -Clinical Debridement Subcutaneous -Tissue Removed Subcutaneous -Post Debridement (cm) - Length 0.6 0 -Post Debridement (cm) - Width 1.5 0 -Post Debridement (cm) - Depth 0.1 0 -Total Square (Post) (cm) 0.90 0 -Area of Debridement (cm) - Length 0.6 0 -Area of Debridement (cm) - Width 1.5 0 -Total Square (Area) (cm) 0.90 0 -Tunneling No No -Undermining/Tunneling No No -Circular Undermining No No -Wound/Ulcer Outcome Not Healed Healed- Epithelialized -Ulcer Cleansing Rinsed/ Rinsed/ Irrigated with Irrigated with Saline Saline -Foul Odor after Cleansing No -Bioengineered Tissue No No -Bleeding Controlled with Silver Nitrate Pressure -Treatment Response Procedure Procedure Tolerated Well Tolerated Well -Offloading No No -Debridement - Subq, 1st 20sq cm Yes Yes Pain Scale: 0-10 Numeric Is Patient Pain Free? Yes Yes - Nurse 3 - General Ulcer D/C NN Start: 05/22/23 14:48 Freq: Status: Active Protocol: Activity Type Activity Date Activity User E-sign Co-sign Detail Recorded Client Recorded Date Recorded By Document 05/22/23 16:02 [facility] Desktop 05/22/23 16:02 MW Document 05/27/23 15:34 Laptop 05/27/23 15:35 05/22/23 05/27/23 16:02 15:34 Wound Care Center Nurse 3 #8 L Ischial Cluster -Ulcer Cleansing Rinsed/ Irrigated with Saline -Foul Odor after Cleansing No -Negative Pressure Wound Therapy N/A -Primary Dressing Applied Mepilex Border, Promogran Jacqueline Matter -Mepilex Border 1 -Promogran Jacqueline Matter 1 Treatment Response Procedure Tolerated Well Pain Scale: 0-10 Numeric Is Patient Pain Free? Yes Yes Teaching: Wound Center Dressing Your Wound -Person Taught Patient -Teaching Method Discussion, Demonstration -Response to teaching Verbalize understanding WC - Visit Discharge Discharge Condition Stable Stable Ambulatory Status Ambulatory Ambulatory Transportation Private Auto Private Auto Accompanied by Medication Reconcilliation completed & No Yes provided to patient/care provider Clinical Summary of Care Provided Yes Yes Assessment/Plan Assessment/Plan (1) Chronic ulcer of left thigh with fat layer exposed: CODE(S): L97.122 - Non-pressure chronic ulcer of left thigh with fat layer exposed (2) Pressure sore of left ischium, stage 3: CODE(S): L89.323 - Pressure ulcer of left buttock, stage 3 (3) Ulcer of perineum with fat layer exposed: CODE(S): L98.492 - Non-pressure chronic ulcer of skin of other sites with fat layer exposed (4) Skin ulcer of scrotum: CODE(S): N50.89 - Other specified disorders of the male genital organs (5) Suppurative hidradenitis: CODE(S): L73.2 - Hidradenitis suppurativa (6) Diabetes type 2, uncontrolled: CODE(S): E11.65 - Type 2 diabetes mellitus with hyperglycemia QUALIFIERS: Glycemic state: with hyperglycemia Qualified Code(s): E11.65 - Type 2 diabetes mellitus with hyperglycemia (7) Hemoglobin A1c greater than 8.0 percent: CODE(S): R73.09 - Other abnormal glucose (8) Smoker: CODE(S): F17.200 - Nicotine dependence, unspecified, uncomplicated PLAN: Plan Left ischial ulcer is healed. The right groin ulcer remains healed. Encouraged increase protein intake and increase Vitamin C intake. Will need supplemental protein to help heal this ulcer. His last Prealbumin from 04/23/22 was 19.8. Encouraged patient to stop smoking as it may have deleterious effects on wound healing. At the time of surgical debridement, will obtain a culture. A positive culture will necessitate antibiotic therapy. Patient sees dermatology who is managing the medical portion of his hidradenitis. His next surgery will be excision hidradenitis right perianal and perineal area and left ischial/proximal posterior thigh ulcer. The ulcer would be skin grafted. The hidradenitis ulcers will be left open and packed with Dakin's or Silver dressings. May not be able to maintain a seal with the VAC. His Creatinine was 3.07 on 02/18/23. The Potassium was 3.1 on 02/18/23. Hgb was 9.7 on 02/18/23. His Creatinine was 1.56 on 04/23/22. Since then it has ranged from a low of 2.38 on 10/09/22 to a high of 3.65 on 02/13/23. His PCP is managing the Creatinine. It needs to be trending downward before proceeding with the surgery. Patient is diabetic. His last HgbA1c was 8.5 on 03/01/23. For elective surgeries, the HgbA1c needs to be less than 8. A wound culture was obtained on 04/01/23. It was positive for Klebsiella aerogenes, Staphylococcus aureus, and Anaerobic cocci. He was started on Doxycycline and Flagyl. The Flagyl is finished. He had stomach issues with the Doxycycline. Continued the Levaquin which should cover the Staphylococcus aureus and has finished them. Will schedule surgical preparation right perineal and perianal areas with excision hidradenitis as well as excision left ischial/proximal posterior thigh ulcer next month. Will leave the wound open and proceed with wound care with Dakin's dressing changes. May not be able to maintain a seal if the VAC is used. May skin graft the left ischial/proximal posterior thigh ulcer. Patient was informed of the risks and complications of the procedure including alternatives to surgery. These were discussed with the patient personally. Patient voices understanding and wishes to proceed. Potential risks and complications included but not inclusive of bleeding, infection, seroma, hematoma, bruising, swelling, possible loss of skin graft, need for wound care, poor scarring, poor aesthetic outcome, intra operative cardiac or neurologic events, DVT, PE, and reaction to anesthesia. The surgery is scheduled for 05/15/23. It was cancelled due to acute hypoxia resulting from CHF and exacerbation of COPD. Will reschedule. Some medications were added. Followup one week.
== END 2023-05-28 13:33 | disposition home or self-care (01) ==
LOC: WC 15:00
PROVIDERS: PCP Nurse Practitioner; Referring Provider Nurse Practitioner Family; Visit Provider Surgery
DX: L73.2 Hidradenitis suppurativa (principal); L89.323 Pressure ulcer of left buttock, stage 3; L89.143 Pressure ulcer of left lower back, stage 3; E11.622 Type 2 diabetes mellitus with other skin ulcer; L97.122 Non-pressure chronic ulcer of left thigh with fat layer exposed; J44.9 Chronic obstructive pulmonary disease, unspecified; E11.65 Type 2 diabetes mellitus with hyperglycemia; I10 Essential (primary) hypertension; I25.10 Atherosclerotic heart disease of native coronary artery without angina pectoris; F17.200 Nicotine dependence, unspecified, uncomplicated; N50.89 Other specified disorders of the male genital organs
CPT/HCPCS: 11042; 99213; G0463

== ENCOUNTER 2023-06-02 18:06 | Emergency (ER) | payer MEDICARE, BC, SELFPAY ==
[2023-06-02 18:08] VITALS: BP 160/78; PULSE 70; RESP 20; TEMP 36.5; O2SAT 100; BMI 23.9
--- NOTE | 2023-06-02 18:59 | CT_ITS ---
STUDY: CTA OF THE ABDOMINAL AORTA AND BILATERAL LOWER EXTREMITIES REASON FOR EXAM: Male, 57 years old. foot pain, arterial insufficiency RADIATION DOSAGE (If Supplied By Facility): CTDIvol = ( 71.13 ) mGy, DLP = ( 1037.75 ) mGycm TECHNIQUE: Axial CT angiography multi-detector data acquisition was obtained from the lung bases to the toes following intravenous administration of IV 100mL Isovue-370. Axial images and MIP images were reconstructed from the axial data set. Post-processing of the angiographic images was performed, with multiplanar reformation and 3D reconstruction. Individualized dose optimization techniques were used for this CT. TECHNICAL QUALITY: Good COMPARISON: None. Descriptors of Narrowing: None (0%) Mild (< 50%) Moderate (50-70%) Severe (70-90%) Subtotal/Total Occlusion (90-100%) Non-Evaluable (technically non-diagnostic FINDINGS: Abdominal aorta: Moderately diseased but no focal aortic stenosis or abdominal aortic aneurysm. Celiac and superior mesenteric arteries: No demonstrated narrowing. Inferior mesenteric artery: No demonstrated narrowing. Right renal artery(arteries): No demonstrated narrowing. Left renal artery(arteries): No demonstrated narrowing. Right common iliac artery: There is moderate diffuse narrowing. Right external iliac artery: There is moderate diffuse narrowing. Right internal iliac artery: There is mild diffuse narrowing. Left common iliac artery: There is moderate diffuse narrowing. Left external iliac artery: There is moderate diffuse narrowing. Left internal iliac artery: Occluded RIGHT LOWER EXTREMITY Right common femoral artery: Suspect a chronic dissection. Right profundus femoris: No demonstrated narrowing. Right superficial femoral: Occluded proximally with reconstitution of the distal right superficial femoral artery. Right popliteal artery: No demonstrated narrowing. Right tibioperoneal trunk: No demonstrated narrowing. Right anterior tibial artery: No demonstrated narrowing. Right posterior tibial artery: No demonstrated narrowing. Right peroneal artery: No demonstrated narrowing. LEFT LOWER EXTREMITY Left common femoral artery: There is moderate diffuse narrowing. Left profundus femoris: There is severe diffuse narrowing. Left superficial femoral: There is moderate diffuse narrowing. Focal severe (90%) stenosis in the mid thigh. Left popliteal artery: No demonstrated narrowing. Left tibioperoneal trunk: No demonstrated narrowing. Left anterior tibial artery: Occluded proximally with reconstitution in the proximal calf. Left posterior tibial artery: Severely diseased proximally. Left peroneal artery: No demonstrated narrowing. CT/CTA Abd w/Runoff W/WO Contrast IMPRESSION: 1. Moderately diseased abdominal aorta but no focal aortic stenosis or abdominal aortic aneurysm. 2. No chronic mesenteric ischemia renal artery stenosis. 3. Moderately diseased iliac arteries with an occluded left internal carotid artery. 4. 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 Occluded proximal right superficial femoral artery with reconstitution of the distal right superficial femoral artery. Widely patent right popliteal artery. Three-vessel runoff on the right. 5. Moderately diseased left common femoral artery. Moderately diseased left superficial femoral artery with a focal severe (90%) stenosis in the mid thigh. Widely patent left popliteal artery. 2 vessel continuous runoff via the right posterior tibial artery which is severely diseased proximally and the right peroneal artery. The proximal left anterior cerebral arteries occluded with reconstitution in the proximal calf. Electronically Signed: Tung Tapia MD at 22:59 EDT ,
--- NOTE | 2023-06-02 19:05 | EX.ED.DYSGE1 ---
HPI <FAITH Rojas - Last Filed: 06/02/23 22:00> History of Present Illness Chief Complaint: Lower Extremity Injury Narrative Narrative: 57-year-old male with past medical history of HTN, HLD, DM2, PAD, smoker presents with worsening pain and discoloration in his left foot. Started having pain in both feet about a month ago but it has always been worse than the left. Is present at rest but worse with walking. Over the last month his left fourth and fifth toe looked purple. He initially saw Dr. Nolascoing to have his nails trimmed and discussed the pain and he referred him to vascular. Dr. Jeffries did ABIs and ultrasounds which showed severe circulation problems. He is scheduled to have more testing or some type of procedure on June 19. He takes Plavix daily. Over the last week he developed purple discoloration of the great toe and third toe and worsening pain in the foot. He denies weakness, numbness or tingling. [facility] <FAITH Rojas - Last Filed: 06/02/23 22:00> [facility] Medical History Abscess of buttock, left Abscess of left thigh Abscess of right groin Abscess of scrotal wall Abscess, perineum Acute blood loss anemia Acute kidney injury Acute kidney injury superimposed on chronic kidney disease Acute post-operative pain Acute postoperative anemia due to expected blood loss Alcohol use Anemia Anemia of chronic disease Ankle pain Ankle pain Arthritis Back pain Back pain due to injury Cardiology follow-up encounter Cellulitis Chronic kidney disease Chronic obstructive pulmonary disease Chronic pain Chronic ulcer of buttock Chronic ulcer of left thigh with fat layer exposed Colostomy in place Complete edentulism, class III Complicated open wound of left thigh COPD (chronic obstructive pulmonary disease) Coronary artery disease Coronary artery disease Cough Debility Diabetes Diabetes mellitus Diabetes mellitus type 2, uncontrolled, with complications Diabetes type 2, uncontrolled Diverticulitis DM type 2, goal HbA1c < 7.5% Edema of both legs Elevated serum creatinine Gait instability Gastric ulcer Hemoglobin A1c greater than 8.0 percent Hidradenitis suppurativa of anus Hidradenitis suppurativa of anus History of diverticulitis History of echocardiogram History of edema History of pain when walking History of stress test History of ulceration Hydradenitis Hydradenitis Hyperlipidemia Hyperlipidemia associated with type 2 diabetes mellitus Hypertension Hypertension Hypokalemia Iron deficiency anemia Kidney disease Lupus (systemic lupus erythematosus) Malnutrition Malnutrition Nausea and vomiting Nicotine dependence Non-healing open wound of right groin Nonhealing skin ulcer Open wound of buttock with complication Open wound of left buttock with complication Open wound of scrotum Open wound of scrotum with complication Pain in the groin Peripheral arterial disease Pneumonia involving right lung Post-operative pain Proteinuria due to type 2 diabetes mellitus PVD (peripheral vascular disease) Shingles Shingles Shortness of breath on exertion Skin ulcer of scrotum Smoker Suppurative hidradenitis Syncope TIA (transient ischemic attack) Tobacco dependence syndrome Ulcer of left groin with fat layer exposed Ulcer of perianal area with fat layer exposed Ulcer of perineum with fat layer exposed Ulcer of perineum with fat layer exposed Ulcer of right groin with fat layer exposed Ulcer of scrotum Weakness Wears glasses Weight gain with edema Wound infection Home Medications guselkumab 100 mg/mL subcutaneous syringe ([employer]) 100 mg subcut Q4W ARTHRITIS 04/23/22 [History Last Taken 09/26/22] oxybutynin chloride 5 mg tablet,extended release 24 hr 5 mg PO DAILY OVERACTIVE BLADDER 10/01/22 [History Last Taken 10/02/22] carvedilol 25 mg tablet 25 mg PO BID #60 tabs 03/01/23 [Rx Last Taken 05/15/23 05:30] glimepiride 2 mg tablet 2 mg PO DAILY #30 tabs 03/01/23 [Rx Last Taken Unknown] nifedipine 90 mg tablet,extended release 24 hr 90 mg PO DAILY #90 tabs 05/08/23 [Rx Last Taken 05/15/23 05:30] furosemide 40 mg tablet (Lasix) 40 mg PO DAILY #30 tabs 05/17/23 [Rx Last Taken Unknown] prednisone 20 mg tablet 40 mg (2 x 20 mg) PO BREAKFAST #10 tabs 05/17/23 [Rx Last Taken Unknown] gabapentin 300 mg capsule 300 mg PO BID 30 days #60 caps 06/02/23 [Rx Last Taken Unknown] Allergy/AdvReac Type Severity Reaction Status Date / Time Penicillins Allergy Unknown Verified 06/02/23 18:07 Sulfa (Sulfonamide Allergy Unknown Verified 06/02/23 18:07 Antibiotics) bupropion [From Wellbutrin] AdvReac Severe change in Verified 06/02/23 18:07 personality ,meanness and smoked more Family History Aunt Lung disease lung cancer Father Heart disease Hypertension Family history of high cholesterol Diabetes Mother Diabetes Daughter Epilepsy Surgical History History of coronary artery stent placement History of excision of lesion History of incision and drainage History of removal of cyst History of tonsillectomy and adenoidectomy Hx of hernia repair Social History household members: spouse Smoking Status: Current every day smoker tobacco type: cigarettes alcohol intake: never substance use type: does not use caffeine: Yes (7) Type: coffee additional social history: DOES NOT TAKE ASPIRIN DOES NOT TAKE IBUPROFEN ROS <FAITH Rojas - Last Filed: 06/02/23 22:00> ROS ED ROS Narrative Constitutional: Negative for fever, chills. Neuro: Negative for motor/sensory dysfunction. Skin: Negative for rash, wound. Musc: Positive for foot pain. No trauma. EXAM <FAITH Rojas - Last Filed: 06/02/23 22:00> Physical Exam Narrative Exam Narrative: CONST: Patient sitting in no acute distress. EYES: Normal inspection. NECK: Normal inspection. RESP: No respiratory distress, CTAB. CVS: Regular rate and rhythm, no murmur, no gallop. Extremities: Purple discoloration and tenderness of the left great toe and third, fourth, fifth toes. No edema or warmth. His lower extremities otherwise appear normal, full range of motion, 5/5 strength in DF/PF, normal sensation. There are no palpable pulses. With Doppler there are monophasic PT pulses bilaterally but I cannot find DP pulses. NEURO: Alert and answering questions appropriately. PSYCH: Normal affect. Const Vital Signs: 06/02/23 18:08 06/02/23 20:32 06/02/23 22:00 Temperature 97.7 F L Temperature Source Temporal Pulse Rate 70 84 68 Respiratory Rate 20 H 16 18 Blood Pressure 160/78 H 178/59 H 181/75 H Blood Pressure Mean 105 98 110 Pulse Ox 100 98 98 Oxygen Delivery Method Room Air Room Air Room Air <Dr. Brian Wiley, DO - Last Filed: 06/02/23 20:40> Physical Exam Const Vital Signs: 06/02/23 18:08 06/02/23 20:32 06/02/23 22:00 Temperature 97.7 F L Temperature Source Temporal Pulse Rate 70 84 68 Respiratory Rate 20 H 16 18 Blood Pressure 160/78 H 178/59 H 181/75 H Blood Pressure Mean 105 98 110 Pulse Ox 100 98 98 Oxygen Delivery Method Room Air Room Air Room Air <Dr. Fracisco Nassar, DO - Last Filed: 06/02/23 23:28> Physical Exam Const Vital Signs: 06/02/23 18:08 06/02/23 20:32 06/02/23 22:00 Temperature 97.7 F L Temperature Source Temporal Pulse Rate 70 84 68 Respiratory Rate 20 H 16 18 Blood Pressure 160/78 H 178/59 H 181/75 H Blood Pressure Mean 105 98 110 Pulse Ox 100 98 98 Oxygen Delivery Method Room Air Room Air Room Air MDM <Bobbi Franklin PA - Last Filed: 06/02/23 22:00> MDM MDM Narrative Medical decision making narrative: History gathered from: Patient and spouse Patient with peripheral arterial disease presents with worsening pain and purple discoloration in his left toes. He appears well and nontoxic. Vital signs stable. The left toes have purple discoloration. There is no edema. Motor and sensation are intact. On Doppler he has monophasic PT pulses bilaterally but I cannot find DP pulses. Labs show normal white count at 10.1 and chronic anemia at 9.0. Creatinine of 2.7 is at baseline. I ordered a CT of the abdomen with runoffs to assess vasculature. The computer operations technician states his GFR is below the cutoff, however I am concerned about arterial insufficiency which may need emergent intervention so I think the test is warranted. He was given IV fluids. CT results are pending. External records reviewed: Lower extremity arterial exam on 05/08/2023 RLE DP/PT SALMA of 0.47 and 0.48 respectively. Moderately severe disease. LLE DVT PT/PT SALMA are abnormal at 0.54 and 0.56 respectively, moderately severe disease. Lab Data Attestation: I reviewed the patient's lab results. Labs: Laboratory Results - last 24 hr 06/02/23 19:30 WBC 10.1 RBC 3.45 L Hgb 9.0 L Hct 28.7 L MCV 83.2 MCH 26.1 L MCHC 31.4 L RDW Std Deviation 44.8 H RDW Coeff of [place] 14.7 H Plt Count 369 MPV 8.9 Immature Gran % (Auto) 0.400 Neut % (Auto) 70.3 H Lymph % (Auto) 20.7 [place] % (Auto) 6.1 Eos % (Auto) 1.9 Baso % (Auto) 0.6 Absolute Neuts (auto) 7.1 Absolute Lymphs (auto) 2.09 Nucleated RBC % 0 PT 13.4 INR 1.0 Sodium 139 Potassium 4.4 Chloride 109 H Carbon Dioxide 25.0 Anion Gap 5 BUN 15 Creatinine 2.70 H Estim Creat Clear Calc 28.50 Est GFR (MDRD) Af Amer 31 L Est GFR (MDRD) Non-Af 26 L BUN/Creatinine Ratio 5.6 L Glucose 153 H Calcium 8.6 Radiography Diagnostic Testing: Clinical Impression(s) from Imaging Studies Abdomen/Pelvis CTA 06/02/23 18:59 IMPRESSION: 1. Moderately diseased abdominal aorta but no focal aortic stenosis or abdominal aortic aneurysm. 2. No chronic mesenteric ischemia renal artery stenosis. 3. Moderately diseased iliac arteries with an occluded left internal carotid artery. 4. 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 Occluded proximal right superficial femoral artery with reconstitution of the distal right superficial femoral artery. Widely patent right popliteal artery. Three-vessel runoff on the right. 5. Moderately diseased left common femoral artery. Moderately diseased left superficial femoral artery with a focal severe (90%) stenosis in the mid thigh. Widely patent left popliteal artery. 2 vessel continuous runoff via the right posterior tibial artery which is severely diseased proximally and the right peroneal artery. The proximal left anterior cerebral arteries occluded with reconstitution in the proximal calf. Electronically Signed: Tung Tapia MD at 22:59 EDT , <Dr. Brian Wiley, DO - Last Filed: 06/02/23 20:40> [facility] Lab Data Labs: Laboratory Results - last 24 hr 06/02/23 19:30 WBC 10.1 RBC 3.45 L Hgb 9.0 L Hct 28.7 L MCV 83.2 MCH 26.1 L MCHC 31.4 L RDW Std Deviation 44.8 H RDW Coeff of [place] 14.7 H Plt Count 369 MPV 8.9 Immature Gran % (Auto) 0.400 Neut % (Auto) 70.3 H Lymph % (Auto) 20.7 [place] % (Auto) 6.1 Eos % (Auto) 1.9 Baso % (Auto) 0.6 Absolute Neuts (auto) 7.1 Absolute Lymphs (auto) 2.09 Nucleated RBC % 0 PT 13.4 INR 1.0 Sodium 139 Potassium 4.4 Chloride 109 H Carbon Dioxide 25.0 Anion Gap 5 BUN 15 Creatinine 2.70 H Estim Creat Clear Calc 28.50 Est GFR (MDRD) Af Amer 31 L Est GFR (MDRD) Non-Af 26 L BUN/Creatinine Ratio 5.6 L Glucose 153 H Calcium 8.6 Radiography Diagnostic Testing: Clinical Impression(s) from Imaging Studies Abdomen/Pelvis CTA 06/02/23 18:59 IMPRESSION: 1. Moderately diseased abdominal aorta but no focal aortic stenosis or abdominal aortic aneurysm. 2. No chronic mesenteric ischemia renal artery stenosis. 3. Moderately diseased iliac arteries with an occluded left internal carotid artery. 4. 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 Occluded proximal right superficial femoral artery with reconstitution of the distal right superficial femoral artery. Widely patent right popliteal artery. Three-vessel runoff on the right. 5. Moderately diseased left common femoral artery. Moderately diseased left superficial femoral artery with a focal severe (90%) stenosis in the mid thigh. Widely patent left popliteal artery. 2 vessel continuous runoff via the right posterior tibial artery which is severely diseased proximally and the right peroneal artery. The proximal left anterior cerebral arteries occluded with reconstitution in the proximal calf. Electronically Signed: Tung Tapia MD at 22:59 EDT , Treatment and Re-Evaluation :: I have personally performed a face to face assessment of the patient and have reviewed the LUBNA Note. I performed a substantive portion of the visit including all aspects of the following. My prince findings include: History: Patient presents with left foot pain that became worse today. Patient noted some discoloration to his toes. Patient has a known history of peripheral vascular disease. Patient states that he was told that he should come to the emergency department if his pain became worse and there was any discoloration in his extremities. Patient denies any fevers or chills. Patient states his pain is worse with any palpation. Exam: Vital signs are stable except for an elevated blood pressure 178/59. Patient is afebrile. Patient is in no acute distress. There is ecchymosis of the digits on the left foot. There is delayed capillary refill of the digits on the left foot. There is no coldness or pallor noted. There is a weak posterior tibial pulse palpated. There is no edema noted. There is no deformity noted. Sensation was intact to light touch in all digits. Strength is 5/5 bilaterally in lower extremities. Medical Decision Making: Differential diagnosis includes peripheral vascular disease, acute vascular occlusion, and coagulopathy. CBC will be obtained to assess for leukocytosis and anemia. Basic metabolic profile will be obtained to assess for renal function and electrolyte abnormality. PT with INR will be obtained to assess for coagulopathy. CTA of the abdomen with runoffs will be obtained to assess for peripheral vascular disease. Patient was given IV fluids, morphine, and Zofran. CBC was reviewed. There is a mild anemia with a hemoglobin of 9.0 and hematocrit of 28.7. This is consistent with prior results. PT with INR was reviewed and was within normal limits. Basic metabolic profile was reviewed. Creatinine was 2.7. This is consistent with prior results. <Dr. Fracisco Nassar, DO - Last Filed: 06/02/23 23:28> [facility] Lab Data Labs: Laboratory Results - last 24 hr 06/02/23 19:30 WBC 10.1 RBC 3.45 L Hgb 9.0 L Hct 28.7 L MCV 83.2 MCH 26.1 L MCHC 31.4 L RDW Std Deviation 44.8 H RDW Coeff of [place] 14.7 H Plt Count 369 MPV 8.9 Immature Gran % (Auto) 0.400 Neut % (Auto) 70.3 H Lymph % (Auto) 20.7 [place] % (Auto) 6.1 Eos % (Auto) 1.9 Baso % (Auto) 0.6 Absolute Neuts (auto) 7.1 Absolute Lymphs (auto) 2.09 Nucleated RBC % 0 PT 13.4 INR 1.0 Sodium 139 Potassium 4.4 Chloride 109 H Carbon Dioxide 25.0 Anion Gap 5 BUN 15 Creatinine 2.70 H Estim Creat Clear Calc 28.50 Est GFR (MDRD) Af Amer 31 L Est GFR (MDRD) Non-Af 26 L BUN/Creatinine Ratio 5.6 L Glucose 153 H Calcium 8.6 Radiography Diagnostic Testing: Clinical Impression(s) from Imaging Studies Abdomen/Pelvis CTA 06/02/23 18:59 IMPRESSION: 1. Moderately diseased abdominal aorta but no focal aortic stenosis or abdominal aortic aneurysm. 2. No chronic mesenteric ischemia renal artery stenosis. 3. Moderately diseased iliac arteries with an occluded left internal carotid artery. 4. 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 Occluded proximal right superficial femoral artery with reconstitution of the distal right superficial femoral artery. Widely patent right popliteal artery. Three-vessel runoff on the right. 5. Moderately diseased left common femoral artery. Moderately diseased left superficial femoral artery with a focal severe (90%) stenosis in the mid thigh. Widely patent left popliteal artery. 2 vessel continuous runoff via the right posterior tibial artery which is severely diseased proximally and the right peroneal artery. The proximal left anterior cerebral arteries occluded with reconstitution in the proximal calf. Electronically Signed: Tung Tapia MD at 22:59 EDT , Treatment and Re-Evaluation :: I have personally performed a face to face assessment of the patient and have reviewed the LUBNA Note. I performed a substantive portion of the visit including all aspects of the following. My prince findings include: History: Patient presents with left foot pain that became worse today. Patient noted some discoloration to his toes. Patient has a known history of peripheral vascular disease. Patient states that he was told that he should come to the emergency department if his pain became worse and there was any discoloration in his extremities. Patient denies any fevers or chills. Patient states his pain is worse with any palpation. Exam: Vital signs are stable except for an elevated blood pressure 178/59. Patient is afebrile. Patient is in no acute distress. There is ecchymosis of the digits on the left foot. There is delayed capillary refill of the digits on the left foot. There is no coldness or pallor noted. There is a weak posterior tibial pulse palpated. There is no edema noted. There is no deformity noted. Sensation was intact to light touch in all digits. Strength is 5/5 bilaterally in lower extremities. Medical Decision Making: Differential diagnosis includes peripheral vascular disease, acute vascular occlusion, and coagulopathy. CBC will be obtained to assess for leukocytosis and anemia. Basic metabolic profile will be obtained to assess for renal function and electrolyte abnormality. PT with INR will be obtained to assess for coagulopathy. CTA of the abdomen with runoffs will be obtained to assess for peripheral vascular disease. Patient was given IV fluids, morphine, and Zofran. CBC was reviewed. There is a mild anemia with a hemoglobin of 9.0 and hematocrit of 28.7. This is consistent with prior results. PT with INR was reviewed and was within normal limits. Basic metabolic profile was reviewed. Creatinine was 2.7. This is consistent with prior results. The patient was signed out to me while awaiting the CTA results. CTA showed multiple lesions or arterial disease findings which correlate with the patient's history but there was collateral and flow down to the foot. As there is no acute arterial occlusion and patient does have blood flow I do not feel need for emergent vascular surgery consult. This correlates with the patient's exam which shows capillary refill of less than 2 seconds with equal temperatures and the ability to Doppler a pulse bilaterally. Therefore at this time patient replaced on gabapentin at a reduced dose of 300 twice a day based on his creatinine clearance which allows for a max dose of 700 mg/day to see if this helps control pain and he will contact his vascular surgeon in the morning to discuss further testing or treatment options. Discharge Plan Triage Chief Complaint: Lower Extremity Injury ED Midlevel Provider: Bobbi Franklin ED Provider: Brian Wiley Dx/Rx/DC Orders Clinical Impression: Left foot pain, Chronic kidney disease, Peripheral vascular disease Instructions: ED Peripheral Artery Disease (PAD) Prescriptions: New gabapentin 300 mg capsule 300 mg PO BID 30 Days Qty: 60 0RF No Action Tremfya 100 mg/mL syringe 100 mg subcut Q4W oxybutynin chloride 5 mg tablet extended release 24hr 5 mg PO DAILY carvedilol 25 mg tablet 25 mg PO BID Qty: 60 12RF Rx Instructions: must administer with a meal/food glimepiride 2 mg tablet 2 mg PO DAILY Qty: 30 12RF prednisone 20 mg Tablet 40 mg PO BREAKFAST Qty: 10 0RF furosemide [Lasix] 40 mg tablet 40 mg PO DAILY Qty: 30 0RF nifedipine 90 mg tablet extended release 24hr 90 mg PO DAILY Qty: 90 3RF Primary Care Provider: Adina Bhat NP Referrals: Brian Jeffries MD [Med Staff - Active Staff] - Adina Bhat NP, PROFESSIONAL MODEL-C [Primary Care Provider] - Activity Restrictions/Additional Instructions: Please contact your vascular surgeon in the morning so we can review your CTA and discuss if follow-up is needed sooner than your June 19 appointment. Continue to take your Plavix as directed and add the gabapentin twice a day to help with pain. Return to the ER should you have any further concerns Disposition Disposition: Home, Self Care
[2023-06-02] MEDS: Ondansetron 4 MG/2 ML Vial IV (19:27)
[2023-06-02] MEDS: Morphine 4 MG/ML Syringe IV (19:27)
[2023-06-02] MEDS: 0.9% Normal Saline (1000mL) 1,000 ML 999 ML IV (19:27)
[2023-06-02 19:45] LABS: Absolute Lymphocyte Count 2.09 X10^3/uL (0.83-4.51); Absolute Neutrophil Count 7.1 X10^3/uL (2.0-7.7); Basophil# 0.06 X10^3/uL; Basophil% 0.6 % (0-1); Eosinophil# 0.19 X10^3/uL; Eosinophils% 1.9 % (0-5); Hematocrit 28.7 % (40-54); Lymphocyte # 2.09 X10^3/ul (0.83-4.51); Lymphocyte % 20.7 % (19-41); Mean Corp Hgb Conc 31.4 g/dL (32-36); Mean Corpuscular Hgb 26.1 pg (27.0-32.0); Mean Corpuscular Volume 83.2 fL (80-94); Mean Platelet Vol. 8.9 fl (6.2-12.0); Monocyte# 0.62 X10^3/uL; Monocyte% 6.1 % (0-10); NRBC Flagged by Analyzer 0 % (0-5); Neutrophil # 7.11 X10^3/uL (2.7-7.7); Neutrophil % 70.3 % (47-70); Platelet Count 369 K/mm3 (150-450); RBC Distribution Width CV 14.7 % (11.6-14.6); RBC Distribution Width SD 44.8 fl (35.1-43.9); Red Blood Count 3.45 M/mm3 (4.6-6.2); White Blood Count 10.1 K/mm3 (4.4-11.0)
[2023-06-02 19:51] LABS: Prothrombin Time (Protime)PT. 13.4 SECONDS (11.7-14.9)
[2023-06-02 19:58] LABS: Anion Gap 5 (5-15); BUN 15 mg/dL (7-18); BUN/Creat Ratio 5.6 RATIO (10-20); Calcium,Total 8.6 mg/dL (8.5-10.1); Chloride 109 mmol/L (98-107); EST Glomerular Filtration Rate 26 mL/min (>60); Est Glom Filt Rate - Afr Amer 31 mL/min (>60); Glucose 153 mg/dL (74-106); Potassium 4.4 mmol/L (3.5-5.1); Sodium Level 139 mmol/L (136-145)
[2023-06-02 20:32] VITALS: BP 178/59; PULSE 84; RESP 16; O2SAT 98
[2023-06-02 22:00] VITALS: BP 181/75; PULSE 68; RESP 18; O2SAT 98
[2023-06-02] MEDS: Gabapentin 300 MG Capsule PO (23:34)
[2023-06-02 23:44] VITALS: BP 157/77; PULSE 64; RESP 18; TEMP 36.2; O2SAT 97
== END 2023-06-02 23:46 | disposition home or self-care (01) ==
PROVIDERS: Physician Assistant; Emergency Provider Emergency Medicine; PCP Nurse Practitioner; Visit Provider Emergency Medicine
DX: M79.672 Pain in left foot (principal); J44.9 Chronic obstructive pulmonary disease, unspecified; E11.51 Type 2 diabetes mellitus with diabetic peripheral angiopathy without gangrene; E11.22 Type 2 diabetes mellitus with diabetic chronic kidney disease; N18.9 Chronic kidney disease, unspecified; F17.210 Nicotine dependence, cigarettes, uncomplicated; Z79.01 Long term (current) use of anticoagulants; Z86.73 Personal history of transient ischemic attack (TIA), and cerebral infarction without residual deficits; Z95.5 Presence of coronary angioplasty implant and graft
CPT/HCPCS: 75635; 80048; 85025; 85610; 96361; 96374; 96375; 99283; J7030; Q9967; J2405

== ENCOUNTER 2023-06-06 14:59 | Inpatient (IN) | payer MEDICARE, BC, SELFPAY ==
[2023-06-05 09:46] VITALS: BMI 53.3
[2023-06-06] VITALS (16 sets, daily range): BP systolic 158–179; BP diastolic 63–89; PULSE 52–59; RESP 12–16; TEMP 35.9–36.8; O2SAT 90–100; BMI 24.1
[2023-06-06 08:20] LABS: Anion Gap 9 (5-15); BUN 18 mg/dL (7-18); BUN/Creat Ratio 6.3 RATIO (10-20); Calcium,Total 8.7 mg/dL (8.5-10.1); Chloride 109 mmol/L (98-107); Creatinine, Serum 2.84 mg/dL (0.70-1.30); EST Glomerular Filtration Rate 24 mL/min (>60); Est Glom Filt Rate - Afr Amer 29 mL/min (>60); Estimated Creatinine Clearance 41.45 ml/min; Glucose 149 mg/dL (74-106); Potassium 4.8 mmol/L (3.5-5.1); Sodium Level 140 mmol/L (136-145)
[2023-06-06 10:56] LABS: ACT Activated Clotting Time 220 sec (74-137)
[2023-06-06 10:56] LABS: ACT Activated Clotting Time 207 sec (74-137)
--- NOTE | 2023-06-06 11:01 | OP.PCM_ITS ---
Report of Operation Date of Procedure: 06/06/23 Pre-Operative Diagnosis: atherosclerosis with rest pain, left lower extremity Post-Operative Diagnosis: same Surgery/Procedure Performed:: left lower extremity angiogram IVUS SFA/popliteal, TP trunk, PT Atherectomy/angioplasty/stent SFA angioplasty PT Surgeon: Brian Jeffries Type of Anesthesia: Local and Sedation,Conscious Estimated Blood Loss (mL): 8 Description of Procedure: HPI: Patient is a 57-year-old male with atherosclerosis with rest pain of left lower extremity with moderate arterial insufficiency with multiple levels suspected based on noninvasive imaging. He had a CT angiography in the emergency department which revealed multiple segments of severe stenosis in the left iliac, left SFA popliteal, and unknown clear status of the tibial vessels. Taken now for angiography with possible invention. 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 Time was performed and sedation administered Versed and fentanyl. Skin overlying the left common femoral artery anesthetized 1% lidocaine vessel accessed and antegrade fashion under ultrasound guidance with micropuncture needle and wire. This then exchanged for micropuncture sheath through which injection subtraction angiography was performed revealing satisfactory position no extravasation or dissection. Micropuncture then exchanged out for a 6 Iranian sheath through which subsequent sequential subtraction angiography the right lower extremity performed. This revealed 99% stenosis of the mid SFA as well as total occlusion of the anterior tibial and posterior tibial arteries proximally with reconstitution of the posterior tibial at the ankle via large collateral from the peroneal artery. Peroneal artery dominant runoff no significant disease. Patient was in heparinized allowed to circulate for 3 minutes and command 14 wire used to navigate across the SFA lesion. Intravascular sound probe was then advanced and recorded pullback perf ormed of the popliteal and the SFA. This confirmed the severe stenosis in the mid SFA. Also revealed multiple segments of greater than 50% stenosis in the more distal SFA and proximal popliteal artery. Throughout this entire segment warranted intervention and a Harman rotational atherectomy device brought to field prep for department chair instructions. This was then advanced over the wire and engaged over the lesion for 2 passes. It was then withdrawn and the lesion angioplastied with a 5 mm x 120 joe angioplasty balloon. This withdrawn repeat angiography confirmed satisfactory lesion response with no extravasation dissection and no residual stenosis. Next a [employer] Gabrielle Judson drug- coated angioplasty balloon 5 x 150 was advanced over the lesion and inflated to nominal and then deflated and withdrawn. Repeat angiography revealed no residual stenosis however there was multiple segments of dissection which had not been present after the initial angioplasty. Given the multitude of segments or dissection is felt that stent was necessary so a 6 x 100 [employer] Z[place]ver PTX was advanced into position and deployed at the distal extent of the lesion. Next a 6 x 80 [place] [employer] Leigh stent was advanced with satisfactory overlap of the original stent and then deployed. This was then postdilated to 5 mm angioplasty balloon completion angiography revealed satisfactory resolution of the dissection with brisk contrast transit no extravasation or dissection and no residual stenosis. Next the command 14 wire was advanced and navigated across the posterior tibial artery occlusion. A quick cross catheter then advanced over the wire and advanced into the distal posterior tibial artery and the wire withdrawn. Subtraction angiography confirmed position within the true lumen beyond the area of the lesion. The command 14 wire was then readvanced and catheter exchanged for an intravascular ultrasound probe advanced beyond the lesion and recorded pullback performed of the posterior tibial, TP trunk. This confirmed reference vessel size of proximal and distal to the area of total occlusion. Intact further define the extent of the lesion. A 2 x 120 joe angioplasty was then advanced in position and inflated to nominal for 2 inflations across the lesion. With finger drawn and repeat angiography revealed adequate contrast transit with signing continue luminal irregularity uncertain whether it was dissection, residual stenosis, or spasm. There was continued brisk contrast transit through the peroneal artery and there was no antegrade filling of the posterior tibial artery as opposed to filling via collaterals so it was felt that no further intervention would be undertaken. Wires and catheters were withdrawn and a 5 Iranian minx deployed followed by 2 minutes of manual pressure with satisfactory stasis noted. Patient taken recovery for bedrest prior to anticipated discharge for home.
--- NOTE | 2023-06-06 11:24 | ADUL_ITS ---
Reason For Study: decreased pulses Left Velocities Ext Iliac Artery, dist = 157.6 cm./sec. Common Femoral Artery, mid = 63.6 cm./sec. Supf. Femoral Artery, prox = 62.3 cm./sec. Supf. Femoral Artery, mid = 14.6 cm./sec. Supf. Femoral Artery, dist = 19.9 cm./sec. Area coming off of prox SFA with a velocity of 403.4 cm/s. Diminished SFA velocities distal to this area. Popliteal Artery, mid = 24.8 cm./sec. Post. Tibial Artery, prox = 18.4 cm./sec. Post Tibial Artery, mid = 19.1 cm./sec. Peroneal Artery, prox = 15.6 cm./sec. Peroneal Artery, mid = 23.4 cm./sec. Peroneal Artery,dist. = 20.6 cm./sec. Unable to demonstrate flow in the [employer] art, distal BANK PRESIDENT, and MÓNICA. VL/US Art Duplex Unilat Lower Ext Interpretation Summary Left proximal SFA and profunda occlusion. Branch or small pseudoaneurysm proxim al to occlusion. Monophasic flow pattern in distal popliteal and peroneal arteries. Ordering Physician: Brian Jeffries Referring Physician: Brian Jeffries Performed By: Chace Richardson, RVT
[2023-06-06 12:39] LABS: Bedside Glucose 150 mg/dL (74-106)
[2023-06-06] MEDS: Lactated Ringers 1,000 ML 15 ML IV (12:44)
[2023-06-06] MEDS: Clindamycin 900 MG/50 ML BAG 75 MG IV (13:02)
[2023-06-06] MEDS: Heparin Injection (Vial) 5,000 UNIT/ML VIAL 5000 UNIT (13:36)
[2023-06-06] MEDS: Bupivacaine Mpf 0.5% 30 ML VIAL (13:45)
[2023-06-06] MEDS: HEPARIN/D5w 25,000 UNITS 25,000 UNITS/250 ML IV.SOLN. 5 UNITS CONT INF (15:35)
--- NOTE | 2023-06-06 16:33 | PCM.OPRPT ---
Report of Operation Date of Procedure: 06/06/23 Pre-Operative Diagnosis: left femoral occlusion Post-Operative Diagnosis: same, dissection at access site of angiogram Surgery/Procedure Performed:: left femoral endarterectomy, patch Surgeon: Brian Jeffries Type of Anesthesia: General Estimated Blood Loss (mL): 25 Description of Procedure: HPI: Patient is a 57-year-old male who had undergone left lower extremity intervention via antegrade access earlier in the day who in the recovery room developed mottled lower extremity with absent pulses. Duplex revealed what appeared to be occlusion at the access site with reconstitution distally in the popliteal artery. He is taken now emergently for left femoral thrombectomy. Description of procedure: Upon obtaining form consent and verification correct patient procedure site patient taken to the operating room was placed under general esthesia. He is then positioned prepped and draped in usual fashion timeout performed. Ultrasound used to riley the trajectory of the common femoral artery onto the superficial femoral artery in the area of occlusion was identified. Longitudinal incision was made and both electrocautery was dissect into the subcutaneous tissue and self-retaining retractor put in position. Further dissection carried down to the fascia which was then incised and self-retaining retractors moved deeper in the wound. Further dissection carried down to the superficial femoral artery which was dissected free proximal and distal with the area of access identified with some moderate bleeding from the puncture site. A right angle was used to post vascular proximally, patient was in heparinized allowed history of the minutes. We then carried our dissection distally beyond the area of occlusion to where the vessel was soft and compressible and a right angle was used to place a vessel loop. After heparin had circulated the vessels were occluded and the puncture site arteriotomy extended transversely. We visualize no thrombus however we did see an occlusive dissection flap and significant amount of plaque that had been disrupted likely from the closure device and that was causing total obstruction of the lumen. We then extended our arteriotomy longitudinally to get beyond the area of dissection. We then performed endarterectomy of the segment of dissection along with the associated plaque and stenosis. Distal endpoint into the profundofemoral artery was then tacked with 7-0 Prolene interrupted sutures. Bovine pericardial patch was then brought on the field. We first ran a 3 Deshawn distally with no thrombus returned and with satisfactory backbleeding. Then flushed with heparinized saline and then no resistance. Proximally released the vessel loop and had brisk pulsatile inflow. The bovine pericardial patch was then secured in position with a 5-0 Prolene running fashion. Prior to completing suture line the vessels were backbled and after completing suture line clamps removed satisfactory stasis was noted. Floseal topical hemostatic was then applied and the incision inspected for hemostasis. Was then closed with 2-0 Vicryl, 3-0 Vicryl, 4 Monocryl and Dermabond for the skin. Patient then awakened anesthesia and taken recovery anticipated observation in the intensive care unit for hemodynamic and vascular monitoring.
[2023-06-06 17:12] LABS: Bedside Glucose 152 mg/dL (74-106)
[2023-06-06] MEDS: 0.45% Normal Saline 1,000 ML 100 ML IV (17:35)
[2023-06-06] MEDS: hydrALAZINE 20 MG/ML Vial 10 MG IV (18:10)
[2023-06-06] MEDS: Famotidine 20 MG Tablet PO (20:39)
[2023-06-06] MEDS: Carvedilol 25 MG Tablet PO (20:39)
[2023-06-06] MEDS: Gabapentin 300 MG Capsule PO (20:39)
[2023-06-06] MEDS: Insulin Lispro 100 UNIT/ML INSULN.PEN SC (20:40)
[2023-06-06] MEDS: Clindamycin 600 MG/50 ML BAG 100 MG IV (20:41)
[2023-06-06 20:51] LABS: Bedside Glucose 168 mg/dL (74-106)
[2023-06-07] VITALS (7 sets, daily range): BP systolic 136–184; BP diastolic 47–72; PULSE 59–61; RESP 15–16; TEMP 36.4–36.8; O2SAT 92–100; BMI 25.2
[2023-06-07] MEDS: 0.45% Normal Saline 1,000 ML 100 ML IV (02:15)
[2023-06-07] MEDS: hydrALAZINE 20 MG/ML Vial 10 MG IV (02:16)
[2023-06-07] MEDS: Acetaminophen 500 MG Tablet 1000 MG PO ×2 (05:03→13:14)
[2023-06-07] MEDS: Clindamycin 600 MG/50 ML BAG 100 MG IV ×2 (05:03→13:12)
[2023-06-07 05:05] LABS: Absolute Lymphocyte Count 1.63 X10^3/uL (0.83-4.51); Absolute Neutrophil Count 11.8 X10^3/uL (2.0-7.7); Basophil# 0.03 X10^3/uL; Basophil% 0.2 % (0-1); Hematocrit 24.7 % (40-54); Hemoglobin 7.8 g/dL (13.0-16.5); Lymphocyte # 1.63 X10^3/ul (0.83-4.51); Lymphocyte % 11.6 % (19-41); Mean Corp Hgb Conc 31.6 g/dL (32-36); Mean Corpuscular Hgb 26.2 pg (27.0-32.0); Mean Corpuscular Volume 82.9 fL (80-94); Mean Platelet Vol. 9.1 fl (6.2-12.0); Monocyte# 0.57 X10^3/uL; NRBC Flagged by Analyzer 0 % (0-5); Neutrophil # 11.79 X10^3/uL (2.7-7.7); Neutrophil % 83.8 % (47-70); Platelet Count 375 K/mm3 (150-450); RBC Distribution Width CV 14.7 % (11.6-14.6); RBC Distribution Width SD 44.8 fl (35.1-43.9); Red Blood Count 2.98 M/mm3 (4.6-6.2); White Blood Count 14.1 K/mm3 (4.4-11.0)
[2023-06-07 05:34] LABS: Anion Gap 5 (5-15); BUN 21 mg/dL (7-18); BUN/Creat Ratio 8.1 RATIO (10-20); Calcium,Total 8.2 mg/dL (8.5-10.1); Chloride 112 mmol/L (98-107); Creatinine, Serum 2.59 mg/dL (0.70-1.30); EST Glomerular Filtration Rate 27 mL/min (>60); Est Glom Filt Rate - Afr Amer 33 mL/min (>60); Estimated Creatinine Clearance 29.71 ml/min; Glucose 174 mg/dL (74-106); Potassium 5.1 mmol/L (3.5-5.1); Sodium Level 137 mmol/L (136-145)
[2023-06-07 08:15] LABS: Bedside Glucose 170 mg/dL (74-106)
[2023-06-07] MEDS: Furosemide 40 MG Tablet PO (09:07)
[2023-06-07] MEDS: Famotidine 20 MG Tablet PO (09:07)
[2023-06-07] MEDS: Tolterodine Tartrate 2 MG CAP.SA PO (09:07)
[2023-06-07] MEDS: Insulin Lispro 100 UNIT/ML INSULN.PEN SC (09:07)
[2023-06-07] MEDS: Carvedilol 25 MG Tablet PO (09:07)
[2023-06-07] MEDS: Clopidogrel Bisulfate 75 MG Tablet PO (09:07)
[2023-06-07] MEDS: NIFEdipine 90 MG Tablet PO (09:07)
[2023-06-07] MEDS: Aspirin E.C. 81 MG Tablet PO (09:07)
[2023-06-07] MEDS: Glimepiride 2 MG Tablet PO (09:07)
[2023-06-07] MEDS: Gabapentin 300 MG Capsule PO (09:13)
--- NOTE | 2023-06-07 09:23 | PN.SURG_ITS ---
Subjective Subjective Patient was seen resting comfortably in bed this morning. He reports that his left foot feels much better since the procedures. He thinks the toes are looking better as well. The prevena vac has been making frequent noise but no alarms. He has not yet had breakfast but tolerated clears overnight. He has some urinary hesitancy but this is his baseline. His operative site pain is mild and well controlled. Objective Data Objective Data Vital Signs: Vital Signs Temp Pulse Resp BP Pulse Ox O2 Del Method O2 Flow Rate 97.6 F L 59 L 16 147/56 H 97 Room Air 2 06/07/23 02:09 06/07/23 02:16 06/07/23 02:09 06/07/23 04:00 06/07/23 08:43 06/07/23 08:43 06/07/23 02:09 Oxygen Flow Rate (L/min) 2 Oxygen Delivery Method Room Air Weight: 165 lb 9.074 oz Body Mass Index (BMI) 25.2 Intake & Output: Intake and Output for Last 24 Hours 06/05/23 06/06/23 06/07/23 23:59 23:59 23:59 Intake Total 199.5 / 199.5 1623.34 / 1623.34 Output Total 1410 / 1410 650 / 650 Balance -1210.5 / -1210.5 973.34 / 973.34 Lab / Micro Data 06/07/23 04:55 06/07/23 04:55 Labs: Laboratory Results - last 24 hr 06/06/23 09:23: Activated Clotting Time 207 H 06/06/23 09:58: Activated Clotting Time 220 H 06/06/23 12:21: POC Glucose 150 H 06/06/23 16:44: POC Glucose 152 H 06/06/23 20:30: POC Glucose 168 H 06/07/23 04:55: WBC 14.1 H, RBC 2.98 L, Hgb 7.8 L, Hct 24.7 L, MCV 82.9, MCH 26.2 L, MCHC 31.6 L, RDW Std Deviation 44.8 H, RDW Coeff of Dana 14.7 H, Plt Count 375, MPV 9.1, Immature Gran % (Auto) 0.400, Neut % (Auto) 83.8 H, Lymph % (Auto) 11.6 L, [place] % (Auto) 4.0, Eos % (Auto) 0.0, Baso % (Auto) 0.2, Absolute Neuts (auto) 11.8 H, Absolute Lymphs (auto) 1.63, Nucleated RBC % 0, Sodium 137, Potassium 5.1, Chloride 112 H, Carbon Dioxide 20.0 L, Anion Gap 5, BUN 21 H, Cre atinine 2.59 H, Estim Creat Clear Calc 29.71, Est GFR (MDRD) Af Amer 33 L, Est GFR (MDRD) Non-Af 27 L, BUN/Creatinine Ratio 8.1 L, Glucose 174 H, Calcium 8.2 L 06/07/23 07:53: POC Glucose 170 H Radiography Diagnostic Testing: Radiology Impression Duplex Scan Lower Extremity Artery 06/06/23 11:24 Interpretation Summary Left proximal SFA and profunda occlusion. Branch or small pseudoaneurysm proximal to occlusion. Monophasic flow pattern in distal popliteal and peroneal arteries. Ordering Physician: Brian Jeffries Referring Physician: Brian Jeffries Performed By: Chace Richardson, RVT Physical Exam Const oriented x3 and no apparent distress Resp normal respiratory effort Cardio regular rate and regular rhythm Extremity Extremity Narrative: L groin with Prevena vacuum dressing C/D/I. Appears to be maintaining good seal. L DP and PT pulses with strong monophasic signals on doppler. L foot is warm. Toes still with mild cyanotic discoloration on the plantar surfaces. Assessment & Plan Assessment/Plan (1) Atherosclerosis of [place] arteries of extremities with rest pain, left leg: PLAN: Plan He is s/p LLE angiogram with atherectomy/angioplasty/stent SFA and angioplasty PT and s/p left femoral endarterectomy with patch. His vascular exam is stable and improved from pre-procedure in the LLE. He reports significantly reduced pain into his LLE. Will have him get up to the chair and ambulate with nursing or PT/OT. If he does well with this and tolerates regular breakfast then anticipate discharge early this afternoon.
--- NOTE | 2023-06-07 10:12 | CASEMGMT ---
Readmission Note: Index: 05/14-05/16. Dx: Hypoxia Readmission: 06/06/23. Dx: Atherosclerosis of [place] arteries of extremities with rest pain, left leg See H&P for list of pt comorbidities. Pt was admitted on the above noted dates for the corresponding dx?s. Pt presents to [facility] with atherosclerosis with pain of left lower extremity with moderate arterial insufficiency with multiple levels suspected based on noninvasive imaging. The pt had a CT angiography in the emergency department which revealed multiple segments of severe stenosis in the left iliac, left SFA popliteal, and unknown clear status of the tibial vessels. The pt was taken for angiography and subsequently left femoral endarterectomy, performed by Dr. Jeffries. RN CM to pt room. Pt is now sitting up comfortably in the chair at bedside. Pt denies complaints currently. Pt states that he is independent at home and also that his can help care for any needs. Pt states that his cares for his wounds at home and also that he follows with the wound center once per week. Pt has a prevena vac on currently and states that he is going to have this for one week prior to following back with the vascular team. Pt denies issues with this and also his other wounds. Pt denies the need for skilled HHC. Per the DC instructions from the index admission, the pt was recommended a 1800 calories restriction, 8 cup fluid restriction, and 2,000mg Na restriction. Pt states that he was unaware of this. 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 This included Zithro, Prednisone, and Lasix. Pt denies issues at home and states that he wishes to DC back home with his . Pt states that he plans to continue to be seen at the wound center. Per Bella Ramos's note, the plan is for the pt to ambulate today with nursing and PT. If the pt does well, the pt may DC this afternoon. Pt states that he is agreeable with this plan. Pt denies further needs. CM to follow for safe DC home from [facility].
[2023-06-07 11:59] LABS: Bedside Glucose 114 mg/dL (74-106)
--- NOTE | 2023-06-07 12:07 | PCM.DC.SUM ---
Providers Date of Admission: 06/06/23 Primary Care Physician: GUSTABO ZimmermanC Reason For Visit: PVD Diagnosis Discharge Diagnosis (1) Atherosclerosis of [place] arteries of extremities with rest pain, left leg: Status: Chronic Code(s): I70.222 - Atherosclerosis of [place] arteries of extremities with rest pain, left leg Plan He is s/p LLE angiogram with atherectomy/angioplasty/stent SFA and angioplasty PT and s/p left femoral endarterectomy with patch. His vascular exam is stable and improved from pre-procedure in the LLE. He reports significantly reduced pain into his LLE. Will have him get up to the chair and ambulate with nursing or PT/OT. If he does well with this and tolerates regular breakfast then anticipate discharge early this afternoon. Medications at Discharge Home Medications guselkumab 100 mg/mL subcutaneous syringe (Tremfya) 100 mg subcut Q4W ARTHRITIS 04/23/22 oxybutynin chloride 5 mg tablet,extended release 24 hr 5 mg PO DAILY OVERACTIVE BLADDER 10/01/22 carvedilol 25 mg tablet 25 mg PO BID #60 tabs 03/01/23 glimepiride 2 mg tablet 2 mg PO DAILY #30 tabs 03/01/23 nifedipine 90 mg tablet,extended release 24 hr 90 mg PO DAILY #90 tabs 05/08/23 furosemide 40 mg tablet (Lasix) 40 mg PO DAILY #30 tabs 05/17/23 prednisone 20 mg tablet 40 mg (2 x 20 mg) PO BREAKFAST #10 tabs 05/17/23 gabapentin 300 mg capsule 300 mg PO BID 30 days #60 caps 06/02/23 aspirin 81 mg tablet,delayed release 81 mg PO DAILY 06/06/23 clopidogrel 75 mg tablet 75 mg PO DAILY 06/06/23 oxycodone 5 mg tablet 5 mg PO Q8H PRN PRN Pain Score 4-10 5 days #15 tabs 06/07/23 Hospital Course Summary of Care Provided Hospital Course: Mr. Ranulfo Santos is a 57-year-old male who underwent left lower extremity angiogram with atherectomy/angioplasty/stent SFA and angioplasty PT and then developed mottled left lower extremity with absent pulses during recovery and thus subsequently underwent left femoral endarterectomy which was successful and without complication. He was routinely admitted to the ICU postoperatively for continued monitoring. Today, patient reports he has significantly less pain in his left lower extremity. He has some residual pain in his toes but overall much better than prior to these procedures. His vascular status has been stable. He has strong Doppler signals at the left PT and DP. His left foot is overall warm. There is still noted to be some cyanotic discoloration of the plantar surface of the toes however this was also present prior to these procedures. He has been tolerating a normal diet, voiding with some urinary hesitancy which is his baseline, his operative site pain is mild and well-controlled, he did well ambulating with nursing. He has his and children at home to offer support. He is eager for discharge home. He is medically stable for discharge today. He will have follow-up as an outpatient in 2 to 4 weeks. Physical Exam Const oriented x3 and no apparent distress Resp normal respiratory effort Cardio regular rate and regular rhythm Extremity Extremity Narrative: L groin with Prevena vacuum dressing C/D/I. Appears to be maintaining good seal. L DP and PT pulses with strong monophasic signals on doppler. L foot is warm. Toes still with mild cyanotic discoloration on the plantar surfaces. Weight / BMI Weight Weight: 165 lb 9.074 oz Body Mass Index (BMI) 25.2 ABG / Lab / Microbiology Data 06/07/23 04:55 06/07/23 04:55 Laboratory: Laboratory Results - last 24 hr 06/06/23 12:21: POC Glucose 150 H 06/06/23 16:44: POC Glucose 152 H 06/06/23 20:30: POC Glucose 168 H 06/07/23 04:55: WBC 14.1 H, RBC 2.98 L, Hgb 7.8 L, Hct 24.7 L, MCV 82.9, MCH 26.2 L, MCHC 31.6 L, RDW Std Deviation 44.8 H, RDW Coeff of Dana 14.7 H, Plt Count 375, MPV 9.1, Immature Gran % (Auto) 0.400, Neut % (Auto) 83.8 H, Lymph % (Auto) 11.6 L, [place] % (Auto) 4.0, Eos % (Auto) 0.0, Baso % (Auto) 0.2, Absolute Neuts (auto) 11.8 H, Absolute Lymphs (auto) 1.63, Nucleated RBC % 0, Sodium 137, Potassium 5.1, Chloride 112 H, Carbon Dioxide 20.0 L, Anion Gap 5, BUN 21 H, Creatinine 2.59 H, Estim Creat Clear Calc 29.71, Est GFR (MDRD) Af Amer 33 L, Est GFR (MDRD) Non-Af 27 L, BUN/Creatinine Ratio 8.1 L, Glucose 174 H, Calcium 8.2 L 06/07/23 07:53: POC Glucose 170 H 06/07/23 11:40: POC Glucose 114 H Radiography Diagnostic Testing: Radiology Impression Duplex Scan Lower Extremity Artery 06/06/23 11:24 Interpretation Summary Left proximal SFA and profunda occlusion. Branch or small pseudoaneurysm proximal to occlusion. Monophasic flow pattern in distal popliteal and peroneal arteries. Ordering Physician: Brian Jeffries Referring Physician: Brian Jeffries Performed By: Chace Richardson T D/C Instructions Discharge Diet: 1800 Calorie Control Diet and 2000 mg Sodium Diet May shower in (days): 1 Weight Bearing Status: Weight bearing as tolerated Lifting Restricted to (Lbs): 20 Lifting Restrictions: Do not lift greater than 20 pounds for 3 weeks Call your doctor if your incision/area has: Sudden Increased Bleeding, Increased Pain/ Swelling and Foul Smelling Discharge Call your doctor if you observe: Fever of 101 or Higher and Uncontrolled pain Additional Instructions: The left groin incision site is covered with a Prevena vacuum dressing. This should remain in place for 1 week if possible. If there is difficulty maintaining seal or the unit persistently alarms then it is okay to remove sooner as needed. To remove this unit you will need to (1) hold the power button until you hear a long deep in the green light disappears (2) follow the tubing from the battery unit until you find the white connectors and then twist these white connectors apart to disconnect the tubing (3) you should notice the purple foam and the dressing begin to puff up (4) once the purple foam has puffed up you may peel off the dressing and through the entire unit away. The incision site is covered with skin glue glue which will continue to protect it even after the vacuum dressing has been removed. The skin glue will peel/flake off on its own over the next few weeks. Do not pick at it. You may shower. Soap and water may rinse over the incision site. Ensure to pat to dry thoroughly. Do not submerge the incision site in water such as to take a bath, go swimming, etc. for 3 weeks or until fully healed. Do not lift greater than 20 pounds for 3 weeks. Otherwise please continue with activity as tolerated. Continue to take aspirin 81 mg daily and Plavix (clopidogrel) 75 mg daily. You have been prescribed oxycodone 5 mg tablet to be taken by mouth every 8 hours as needed for pain. Take this only as directed and do not take in combination with any other prescription pain medications. You may take this with Tylenol. You have a follow-up appointment scheduled in the office on 07/02/2023. If you need to change this appointment, need to be seen sooner, or have any other concerns please contact the office at . Please Follow Up With: Bella Ramos PA When: 07/02/2023 Meaningful Use Info Meaningful Use Meaningful Use Diagnoses (Choose all that apply): None applicable Ischemic Stroke Statin Dosing Therapy Reference: STATIN DOSE THERAPY REFERENCE: * Patients > 75 years receive moderate or high dose statin therapy. * Patients 75 years or YOUNGER should receive HIGH intensity statin dose unless contraindicated. You will be required to document reason for non-treatment if statin daily dose does not meet guidelines. HIGH DOSE STATIN THERAPY DAILY Atorvastatin > than or = to 40 mg Rosuvastatin > than or = to 20 mg Amlodipine + Atorvastatin > than or = to 2.5/40 mg Ezetimibe + Simvastatin 10/80 mg Simvastatin 80mg Discharge Plan Admission Admit Date/Time: 06/06/23 14:59 Primary Reason for Your Visit: LLE angiogram Attending Provider: Brian Jeffries Primary Care Provider: Adina Bhat NP Discharge Orders/Prescriptions Prescriptions: New oxycodone 5 mg Tablet 5 mg PO Q8H PRN PRN (Reason: Pain Score 4-10) 5 Days Qty: 15 0RF Continued Tremfya 100 mg/mL syringe 100 mg subcut Q4W oxybutynin chloride 5 mg tablet extended release 24hr 5 mg PO DAILY carvedilol 25 mg tablet 25 mg PO BID Qty: 60 12RF Rx Instructions: must administer with a meal/food glimepiride 2 mg tablet 2 mg PO DAILY Qty: 30 12RF prednisone 20 mg Tablet 40 mg PO BREAKFAST Qty: 10 0RF furosemide [Lasix] 40 mg tablet 40 mg PO DAILY Qty: 30 0RF gabapentin 300 mg capsule 300 mg PO BID 30 Days Qty: 60 0RF clopidogrel 75 mg tablet 75 mg PO DAILY aspirin 81 mg tablet,delayed release (DR/EC) 81 mg PO DAILY nifedipine 90 mg tablet extended release 24hr 90 mg PO DAILY Qty: 90 3RF Referrals / Follow Up: Adina Bhat NP, PACKING TRACTOR MACHINE OPERATOR-C [Primary Care Provider] - Disposition Disposition (needs filled in before D/C Order can be placed): Home, Self Care
== END 2023-06-07 14:10 | disposition home or self-care (01) | DRG 271 ==
LOC: ICU 15:19
PROVIDERS: Admitting Provider Surgery Trauma Surgery; PCP Nurse Practitioner; Referring Provider Surgery Trauma Surgery; Visit Provider Surgery Trauma Surgery
PROC: 04CL3ZZ Extirpation of Matter from Left Femoral Artery, Percutaneous Approach (ICD-10-PCS; principal; 2023-06-06 12:30)
DX: I70.222 Atherosclerosis of native arteries of extremities with rest pain, left leg (principal); I74.3 Embolism and thrombosis of arteries of the lower extremities; T81.32XA Disruption of internal operation (surgical) wound, not elsewhere classified, initial encounter; I70.92 Chronic total occlusion of artery of the extremities; E11.22 Type 2 diabetes mellitus with diabetic chronic kidney disease; J44.9 Chronic obstructive pulmonary disease, unspecified; E11.51 Type 2 diabetes mellitus with diabetic peripheral angiopathy without gangrene; I12.9 Hypertensive chronic kidney disease with stage 1 through stage 4 chronic kidney disease, or unspecified chronic kidney disease; N18.9 Chronic kidney disease, unspecified; I25.10 Atherosclerotic heart disease of native coronary artery without angina pectoris; F17.210 Nicotine dependence, cigarettes, uncomplicated; X58.XXXA Exposure to other specified factors, initial encounter; Z95.5 Presence of coronary angioplasty implant and graft; Z79.02 Long term (current) use of antithrombotics/antiplatelets; Z79.84 Long term (current) use of oral hypoglycemic drugs; Z79.899 Other long term (current) drug therapy; Z86.73 Personal history of transient ischemic attack (TIA), and cerebral infarction without residual deficits
CPT/HCPCS: 36245; 37227; 37228; 37252; 37253; 75710; 76937; 80048; 82962; 85025; 85347; 93926; 94668; 99152; 99153; 99252; A4648; C1724; C1725; C1753; C1760; C1769; C1874; C1894; C2623; J7040; J7120; Q9967; C1757; C1887; G0463; J2405

== ENCOUNTER 2023-06-08 01:29 | Emergency (ER) | payer MEDICARE, BC, SELFPAY ==
[2023-06-08 01:31] VITALS: BP 161/140; PULSE 74; RESP 18; TEMP 36.7; O2SAT 100; BMI 22.8
--- NOTE | 2023-06-08 01:58 | EX.ED.DYSGE1 ---
HPI History of Present Illness Chief Complaint: Wound Check Detail of Chief Complaint: Wound check Informant: patient Narrative Narrative: Patient presents the emergency department with complaint of wound VAC problem on his left upper thigh. Patient states that he had a couple stents placed in his left femoral artery and then had to go back to surgery after the stents with Dr. Jeffries. He was discharged from the yesterday. Patient felt like maybe the wound VAC stopped working so he disconnected the hose and then reconnected it and when he did that he had more pain in his left upper thigh. He changed out 2 of the 3 batteries because he only had 2 batteries. Presents for evaluation. Patient has history of peripheral vascular disease as well as diabetes and chronic kidney disease. 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 Complete edentulism, class III Complicated open wound of left thigh COPD (chronic obstructive pulmonary disease) Coronary artery disease Coronary artery disease Cough Debility Diabetes Diabetes mellitus Diabetes mellitus type 2, uncontrolled, with complications Diabetes type 2, uncontrolled Diverticulitis DM type 2, goal HbA1c < 7.5% Edema of both legs Elevated serum creatinine Gait instability Gastric ulcer Hemoglobin A1c greater than 8.0 percent Hidradenitis suppurativa of anus Hidradenitis suppurativa of anus History of diverticulitis History of echocardiogram History of edema History of pain when walking History of stress test History of ulceration Hydradenitis Hydradenitis Hyperlipidemia Hyperlipidemia associated with type 2 diabetes mellitus Hypertension Hypertension Hypokalemia Iron deficiency anemia Kidney disease Lupus (systemic lupus erythematosus) Malnutrition Malnutrition Nausea and vomiting Nicotine dependence Non-healing open wound of right groin Nonhealing skin ulcer Open wound of buttock with complication Open wound of left buttock with complication Open wound of scrotum Open wound of scrotum with complication Pain in the groin Peripheral arterial disease Pneumonia involving right lung Post-operative pain Proteinuria due to type 2 diabetes mellitus PVD (peripheral vascular disease) Shingles Shingles Shortness of breath on exertion Skin ulcer of scrotum Smoker Suppurative hidradenitis Syncope TIA (transient ischemic attack) Tobacco dependence syndrome Ulcer of left groin with fat layer exposed Ulcer of perianal area with fat layer exposed Ulcer of perineum with fat layer exposed Ulcer of perineum with fat layer exposed Ulcer of right groin with fat layer exposed Ulcer of scrotum Weakness Wears glasses Weight gain with edema Wound infection Home Medications guselkumab 100 mg/mL subcutaneous syringe (Tremfya) 100 mg subcut Q4W ARTHRITIS 04/23/22 [History Last Taken 09/26/22] oxybutynin chloride 5 mg tablet,extended release 24 hr 5 mg PO DAILY OVERACTIVE BLADDER 10/01/22 [History Last Taken 10/02/22] carvedilol 25 mg tablet 25 mg PO BID #60 tabs 03/01/23 [Rx Last Taken 06/06/23] glimepiride 2 mg tablet 2 mg PO DAILY #30 tabs 03/01/23 [Rx Last Taken Unknown] nifedipine 90 mg tablet,extended release 24 hr 90 mg PO DAILY #90 tabs 05/08/23 [Rx Last Taken 06/06/23] furosemide 40 mg tablet (Lasix) 40 mg PO DAILY #30 tabs 05/17/23 [Rx Last Taken Unknown] prednisone 20 mg tablet 40 mg (2 x 20 mg) PO BREAKFAST #10 tabs 05/17/23 [Rx Last Taken Unknown] gabapentin 300 mg capsule 300 mg PO BID 30 days #60 caps 06/02/23 [Rx Last Taken Unknown] aspirin 81 mg tablet,delayed release 81 mg PO DAILY 06/06/23 [History Last Taken 06/06/23] clopidogrel 75 mg tablet 75 mg PO DAILY 06/06/23 [History Last Taken 06/06/23] oxycodone 5 mg tablet 5 mg PO Q8H PRN PRN Pain Score 4-10 5 days #15 tabs 06/07/23 [Rx Last Taken Unknown] Allergy/AdvReac Type Severity Reaction Status Date / Time Penicillins Allergy Unknown Verified 06/08/23 01:31 Sulfa (Sulfonamide Allergy Unknown Verified 06/08/23 01:31 Antibiotics) bupropion [From Wellbutrin] AdvReac Severe change in Verified 06/08/23 01:31 personality ,meanness and smoked more Family History Aunt Lung disease lung cancer Father Heart disease Hypertension Family history of high cholesterol Diabetes Mother Diabetes Daughter Epilepsy Surgical History History of coronary artery stent placement History of excision of lesion History of incision and drainage History of removal of cyst History of tonsillectomy and adenoidectomy Hx of hernia repair Social History household members: spouse Smoking Status: Current every day smoker tobacco type: cigarettes alcohol intake: never substance use type: does not use caffeine: Yes (7) Type: coffee additional social history: DOES NOT TAKE ASPIRIN DOES NOT TAKE IBUPROFEN ROS ROS ED Review of Systems ROS Unobtainable: other Constitutional Constitutional ED: Reports lethargy; Denies chills, fever(s), sweats or weight loss Eyes Eyes: Denies blurry vision, change in vision or diplopia ENT ENT ED: Denies rhinorrhea or sore throat Cardiovascular Cardiovascular: Denies chest pain, orthopnea or racing heartbeat Respiratory/Chest Respiratory/Chest: Denies cough, dyspnea, dyspnea on exertion, orthopnea or sputum Gastrointestinal Gastrointestinal: Denies abdominal pain, diarrhea, nausea or vomiting Genitourinary Genitourinary ED: Denies dysuria, hematuria or urinary frequency Musculoskeletal Musculoskeletal: Reports other Details: Left leg pain ; Denies arthralgias, back pain, myalgias or neck pain Integumentary Denies abscess, Abrasions or rash Neurologic Neurologic: Denies headache(s) or weakness Psychiatric Psychiatric: Denies anxiety, depression or suicidal thoughts Endocrine Endocrinology: Denies polydipsia, polyphagia or polyuria Hematologic/Lymphatic Hematologic/Lymphatic: Denies easy bleeding, easy bruising or lymphadenopathy Allergic/Immunologic Allergic/Immunologic ED: Denies mouth swelling, tongue swelling or urticaria EXAM Physical Exam Const Vital Signs: 06/08/23 01:31 Temperature 98.1 F Temperature Source Temporal Pulse Rate 74 Respiratory Rate 18 Blood Pressure 161/140 H Blood Pressure Mean 147 Pulse Ox 100 Oxygen Delivery Method Room Air Positive well nourished and well developed General Appearance ED: well developed and NAD HEENT Reports TM's clear and moist mucous membranes normocephalic and atraumatic; Negative for trauma or tenderness Tympanic Membrane ED: Yes TM's clear Eyes PERRL and EOMs intact bilaterally General Eye ED: Negative for pale conjunctiva or scleral icterus Neck no lymphadenopathy, supple and no JVD General: Negative for tenderness Chest Wall inspection of chest normal and palpation of chest normal Chest: Negative for tenderness Resp normal respiratory effort and clear to auscultation bilaterally Effort and Inspection: Negative for respiratory distress or pain with movement Auscultation: Negative for rhonchi, wheezes or diminished lung sounds Cardio regular rate, regular rhythm, S1 normal heart sound, S2 normal heart sound and no murmurs Peripheral Pulses: pulses 2+ throughout GI normal to inspection, nondistended, normoactive bowel sounds, soft to palpation, non-tender, non-distended and no masses Back/Spine no CVA tenderness and no thoracic nor lumbar tenderness Extremity Extremity Narrative: Left leg-patient has a wound VAC to left upper anterior thigh near the groin. Sponges retracted and the wound VAC seems to be intermittently making noise and feel its likely functioning properly. There is no significant edema of the extremity. There are some faint ecchymosis and bruising from recent procedure. Patient has palpable dorsal pedal and posterior tibial pulses in the foot is warm to the touch. No large hematomas noted. General Extremety ED: Negative for edema General Extremity: Negative for edema Neuro oriented x3, CN's II-XII intact bilaterally, no sensory deficits noted and gait normal Sensorium / Orientation: awake, alert, oriented to person, oriented to place and oriented to time Motor Exam: strength 5/5 throughout and strength abnormal Psych mental status grossly normal Skin no rashes or lesions noted and no wounds MDM MDM MDM Narrative Medical decision making narrative: Patient will have his battery changed out on his wound VAC. I did discuss case with Dr. Jeffries who is the surgeon of record given that patient recently had surgery and was discharged. At this point really nothing more to offer. Will give him a shot of morphine for pain. Clinically he looks well. Dr. Jeffries recommended that if the wound VAC should stop working that he could remove it. Patient to keep his scheduled appointment. He is advised to return if worsening pain, pallor of the extremity, increased swelling, or condition worsen anyway. Discharge Plan Triage Chief Complaint: Wound Check ED Provider: Ungur,Remus Dx/Rx/DC Orders Clinical Impression: Post-op pain Instructions: ED Post Op Wound Check, Pain Prescriptions: No Action Tremfya 100 mg/mL syringe 100 mg subcut Q4W oxybutynin chloride 5 mg tablet extended release 24hr 5 mg PO DAILY carvedilol 25 mg tablet 25 mg PO BID Qty: 60 12RF Rx Instructions: must administer with a meal/food glimepiride 2 mg tablet 2 mg PO DAILY Qty: 30 12RF prednisone 20 mg Tablet 40 mg PO BREAKFAST Qty: 10 0RF furosemide [Lasix] 40 mg tablet 40 mg PO DAILY Qty: 30 0RF gabapentin 300 mg capsule 300 mg PO BID 30 Days Qty: 60 0RF clopidogrel 75 mg tablet 75 mg PO DAILY aspirin 81 mg tablet,delayed release (DR/EC) 81 mg PO DAILY oxycodone 5 mg Tablet 5 mg PO Q8H PRN PRN (Reason: Pain Score 4-10) 5 Days Qty: 15 0RF nifedipine 90 mg tablet extended release 24hr 90 mg PO DAILY Qty: 90 3RF Primary Care Provider: Adina Bhat NP Referrals: Adina Bhat NP, APPOINTMENT COORDINATOR-C [Primary Care Provider] - Activity Restrictions/Additional Instructions: Keep your scheduled appointment with your primary care physician and Dr. Jeffries. Disposition Disposition: Home, Self Care
[2023-06-08] MEDS: Morphine 4 MG/ML Syringe IM (02:11)
[2023-06-08 02:14] VITALS: BP 149/79; PULSE 61; RESP 18; TEMP 36.7; O2SAT 100
== END 2023-06-08 02:16 | disposition home or self-care (01) ==
PROVIDERS: Emergency Provider Emergency Medicine; PCP Nurse Practitioner; Visit Provider Emergency Medicine
DX: G89.18 Other acute postprocedural pain (principal); E11.51 Type 2 diabetes mellitus with diabetic peripheral angiopathy without gangrene; E11.22 Type 2 diabetes mellitus with diabetic chronic kidney disease; M79.652 Pain in left thigh; N18.9 Chronic kidney disease, unspecified; F17.210 Nicotine dependence, cigarettes, uncomplicated; Z86.73 Personal history of transient ischemic attack (TIA), and cerebral infarction without residual deficits; Z95.5 Presence of coronary angioplasty implant and graft
CPT/HCPCS: 96372; 99282

== ENCOUNTER → 2023-06-17 | Outpatient (CLI) | payer MEDICARE, BC, SELFPAY ==
[2023-06-17 21:46] LABS: Absolute Lymphocyte Count 3.51 X10^3/uL (0.83-4.51); Basophil# 0.12 X10^3/uL; Basophil% 0.8 % (0-1); Eosinophils% 3.3 % (0-5); Hematocrit 27.7 % (40-54); Hemoglobin 8.5 g/dL (13.0-16.5); Lymphocyte # 3.51 X10^3/ul (0.83-4.51); Lymphocyte % 22.9 % (19-41); Mean Corp Hgb Conc 30.7 g/dL (32-36); Mean Corpuscular Volume 84.7 fL (80-94); Mean Platelet Vol. 9.1 fl (6.2-12.0); Monocyte# 1.01 X10^3/uL; Monocyte% 6.6 % (0-10); NRBC Flagged by Analyzer 0 % (0-5); Neutrophil # 10.03 X10^3/uL (2.7-7.7); Neutrophil % 65.6 % (47-70); Platelet Count 519 K/mm3 (150-450); RBC Distribution Width CV 14.6 % (11.6-14.6); RBC Distribution Width SD 45.3 fl (35.1-43.9); Red Blood Count 3.27 M/mm3 (4.6-6.2); White Blood Count 15.3 K/mm3 (4.4-11.0)
[2023-06-17 22:10] LABS: Hemoglobin A1c 6.6 % (3.8-5.6)
[2023-06-17 22:13] LABS: ALB/GLOB Ratio 0.5 RATIO (0.9-2.4); AST(SGOT) 11 U/L (15-37); Alanine Aminotransfer ALT/SGPT 13 U/L (16-61); Albumin, Serum 2.6 g/dL (3.2-5.0); Alkaline Phosphatase 126 U/L (45-117); Anion Gap 5 (5-15); BUN 21 mg/dL (7-18); BUN/Creat Ratio 7.1 RATIO (10-20); Calcium,Total 9.1 mg/dL (8.5-10.1); Chloride 111 mmol/L (98-107); Creatinine, Serum 2.94 mg/dL (0.70-1.30); EST Glomerular Filtration Rate 23 mL/min (>60); Est Glom Filt Rate - Afr Amer 28 mL/min (>60); Globulin 5.1 g/dL (2.2-4.2); Glucose 75 mg/dL (74-106); Potassium 4.9 mmol/L (3.5-5.1); Protein, Total 7.7 g/dL (6.4-8.2); Sodium Level 139 mmol/L (136-145); Total Bilirubin < 0.10 mg/dL (0.20-1.00)
[2023-06-17 22:29] LABS: BNP,B-Type NATRIURETIC PEPTIDE 104.9 pg/mL (0-100)
== END | disposition home or self-care (01) ==
PROVIDERS: PCP Nurse Practitioner; Visit Provider Nurse Practitioner
DX: I1A.0 Resistant hypertension (principal); L98.499 Non-pressure chronic ulcer of skin of other sites with unspecified severity; I50.9 Heart failure, unspecified; E11.9 Type 2 diabetes mellitus without complications; E78.5 Hyperlipidemia, unspecified; E87.6 Hypokalemia; R79.89 Other specified abnormal findings of blood chemistry; D64.9 Anemia, unspecified
CPT/HCPCS: 80053; 83036; 83880; 85025; 87070; 87077; 87186; 87205

== ENCOUNTER → 2023-06-20 | Outpatient (CLI) | payer MEDICARE, BC, SELFPAY ==
--- NOTE | 2023-06-20 12:20 | ADUL_ITS ---
Reason For Study: S/P Lt SFA Stent - [employer] Angio Left Velocities Ext Iliac Artery, dist = 177.0 cm./sec. Common Femoral Artery, mid = 254.3 cm./sec. Supf. Femoral Artery, prox = 141.8 cm./sec. 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 Stent, prox = 113.3 cm./sec. Stent, mid = 71.6 cm./sec. Stent, dist = 91.3 cm./sec. Stent noted from Lt Prox SFA to Dist SFA. Supf. Femoral Artery, dist = 82.5 cm./sec. Popliteal Artery, proximal, = 111.1 cm./sec. Popliteal Artery, distal = 104.5 cm./sec. Post. Tibial Artery, prox = 150.6 cm./sec. Post Tibial Artery, mid = 113.3 cm./sec. Post Tibial Artery, dist. = 106.7 cm./sec. Peroneal Artery, prox = 67.2 cm./sec. Peroneal Artery, mid = 69.4 cm./sec. Peroneal Artery,dist. = 50.6 cm./sec. Ant.Tibial Artery, prox = 73.3 cm./sec. Ant Tibial Artery, mid = 25.1 cm./sec. Ant. Tibial Artery, distal = 21.4 cm./sec. Procedure The exam was diagnostic. Limited Views obtained proximal due to wound. VL/US Art Duplex Unilat Lower Ext Interpretation Summary Left SFA/popliteal stents patent with normal velocity and no evidence of stenos is Left posterior tibial artery patent with normal velocity and no evidence of gonzalo nosis Ordering Physician: Bella Ramos Referring Physician: Adina Bhat Performed By: Faustino Tam RVT and Student
--- NOTE | 2023-06-20 12:20 | ART_ITS ---
Reason For Study: LT SFA Stent / [employer]/M[employer] Angio Procedure A bilateral lower extremity continuous wave Doppler with analog waveform analysis,segmental pressures,and ankle brachial indexes without exercise. Left Segmental Pressures Left brachial= 189mmHg. Left posterior tibial artery = 162mmHg. Left dorsalis pedis artery = 163mmHg. Left digit = 76 mmHg. The left posterior tibial artery waveforms are biphasic. The left dorsalis pedis waveforms are biphasic. Right Segmental Pressures Right brachial= 200mmHg. Right posterior tibial artery = 121mmHg. Right dorsalis pedis artery = 102mmHg. Right digit = 64 mmHg. The right posterior tibial artery waveforms are monophasic. The right dorsalis pedis waveforms are monophasic. Indices The right ankle brachial index by the posterior tibial artery is 0.61. The right ankle brachial index by the dorsalis pedis is 0.51. The right digital-brachial index is 0.32. The left ankle brachial index by the posterior tibial artery is 0.81. The left ankle brachial index by the dorsalis pedis is 0.82. The left digital-brachial index is 0.38. VL/Ankle Brachial Index Interpretation Summary Right SALMA 0.61, moderate arterial insufficiency. Doppler/PVR waveforms of the r ight ankle moderately diminished at rest. Left SALMA 0.82, moderate arterial insufficiency. Doppler/PVR waveforms of the le ft ankle mildly diminished at rest. Ordering Physician: Bella Ramos Referring Physician: BELLA RAMOS PA Performed By: Faustino Tam RVT and Student
== END | disposition home or self-care (01) ==
LOC: CVS 12:20
PROVIDERS: PCP Nurse Practitioner; Referring Provider Physician Assistant; Visit Provider Physician Assistant
DX: Z48.812 Encounter for surgical aftercare following surgery on the circulatory system (principal); I70.222 Atherosclerosis of native arteries of extremities with rest pain, left leg
CPT/HCPCS: 93922; 93926

== ENCOUNTER → 2023-06-27 | Outpatient (CLI) | payer MEDICARE, BC, SELFPAY ==
[2023-06-27 23:03] LABS: Absolute Lymphocyte Count 2.93 X10^3/uL (0.83-4.51); Absolute Neutrophil Count 6.9 X10^3/uL (2.0-7.7); Basophil% 0.9 % (0-1); Eosinophil# 0.24 X10^3/uL; Eosinophils% 2.2 % (0-5); Hematocrit 26.7 % (40-54); Hemoglobin 8.1 g/dL (13.0-16.5); Lymphocyte # 2.93 X10^3/ul (0.83-4.51); Lymphocyte % 27.1 % (19-41); Mean Corp Hgb Conc 30.3 g/dL (32-36); Mean Corpuscular Hgb 25.9 pg (27.0-32.0); Mean Corpuscular Volume 85.3 fL (80-94); Mean Platelet Vol. 9.2 fl (6.2-12.0); Monocyte# 0.58 X10^3/uL; Monocyte% 5.4 % (0-10); NRBC Flagged by Analyzer 0 % (0-5); Neutrophil # 6.93 X10^3/uL (2.7-7.7); Neutrophil % 63.9 % (47-70); Platelet Count 364 K/mm3 (150-450); RBC Distribution Width CV 15.2 % (11.6-14.6); RBC Distribution Width SD 46.7 fl (35.1-43.9); Red Blood Count 3.13 M/mm3 (4.6-6.2); White Blood Count 10.8 K/mm3 (4.4-11.0)
[2023-06-27 23:26] LABS: ALB/GLOB Ratio 0.6 RATIO (0.9-2.4); AST(SGOT) 11 U/L (15-37); Alanine Aminotransfer ALT/SGPT 10 U/L (16-61); Albumin, Serum 2.6 g/dL (3.2-5.0); Alkaline Phosphatase 103 U/L (45-117); Anion Gap 3 (5-15); BUN 16 mg/dL (7-18); BUN/Creat Ratio 4.4 RATIO (10-20); Calcium,Total 8.6 mg/dL (8.5-10.1); Chloride 109 mmol/L (98-107); Creatinine, Serum 3.61 mg/dL (0.70-1.30); EST Glomerular Filtration Rate 18 mL/min (>60); Est Glom Filt Rate - Afr Amer 22 mL/min (>60); Globulin 4.4 g/dL (2.2-4.2); Glucose 132 mg/dL (74-106); Iron 71 ug/dL (65-175); Iron Binding Capacity,Total 230 ug/dL (250-450); Lipase 64 U/L (13-75); PERCENT IRON SATURATION 30.9 % (15.0-55.0); Potassium 5.2 mmol/L (3.5-5.1); Prealbumin 30.2 mg/dL (20.0-40.0); Sodium Level 136 mmol/L (136-145); Uric Acid 6.5 mg/dL (3.5-7.2)
[2023-06-27 23:58] LABS: Vitamin B12 292 pg/mL (211-911); Vitamin D,25 Hydroxy 15.7 ng/mL
[2023-06-30 08:07] LABS: HEPATITIS B SURFACE AG Negative (Negative); Hep C Antibodies Non Reactive (Non Reactive); Hepatitis A IgM Antibody Negative (Negative); Hepatitis B Core AB IgM Negative (Negative); Transferrin 197 mg/dL (177-329)
== END | disposition home or self-care (01) ==
PROVIDERS: PCP Nurse Practitioner; Referring Provider Nurse Practitioner; Visit Provider Nurse Practitioner
DX: K75.9 Inflammatory liver disease, unspecified (principal); D51.9 Vitamin B12 deficiency anemia, unspecified; I95.9 Hypotension, unspecified; E55.9 Vitamin D deficiency, unspecified; R10.9 Unspecified abdominal pain; E44.0 Moderate protein-calorie malnutrition; M10.9 Gout, unspecified
CPT/HCPCS: 80053; 80074; 82306; 82607; 83540; 83550; 83690; 84134; 84466; 84550; 85025

== ENCOUNTER 2023-07-10 15:15 | Outpatient (RCR) | payer MEDICARE, BC, SELFPAY ==
[2023-06-26 13:06] VITALS: BP 176/48; PULSE 65; RESP 16; TEMP 36.5
--- NOTE | 2023-06-26 16:00 | PCM.WC.HP ---
History of Present Illness Date of Service: 06/26/23 Chief Complaint: Nonhealing ulcer left groin after LLE angio History of Wound: 57 year old male who is known to me for his significant history for hidradenitis. He recently had a left lower leg atherectomy/angioplasty/stent SFA, angioplasty PT, and left femoral endarterectomy with patch by Dr. Jeffries, vascular surgeon. He developed dehiscence of the left groin incision. He was treated with empirically with Cipro and Flagyl. He initially had a wound VAC which was removed. He states that he has not been keeping this area covered consistently. He has a medical history of DM type II, uncontrolled HTN, CAD, arterial insufficiency, and smoker. He is recently has lost his vision which they believe has been from a stroke. He comes in today for further evaluation of this left groin. Today he denies any fever, chills, nausea or vomiting. Progress of Wound: Left groin wound with significant amount of nonviable tissue. Patient has not been consistently covering this area. There is no erythema, or odor. [facility] Medical History Wears glasses PVD (peripheral vascular disease) Gait instability TIA (transient ischemic attack) Syncope History of echocardiogram Cardiology follow-up encounter Nicotine dependence Nonhealing skin ulcer Peripheral arterial disease Chronic kidney disease History of diverticulitis Acute kidney injury Arthritis Kidney disease Acute kidney injury superimposed on chronic kidney disease Diverticulitis Weight gain with edema DM type 2, goal HbA1c < 7.5% Malnutrition Ulcer of perineum with fat layer exposed Ulcer of scrotum Ulcer of right groin with fat layer exposed Shingles Shingles Post-operative pain Elevated serum creatinine Hemoglobin A1c greater than 8.0 percent Hypokalemia Open wound of scrotum with complication Open wound of buttock with complication Non-healing open wound of right groin Abscess, perineum Abscess of scrotal wall Abscess of right groin Complete edentulism, class III Alcohol use Diabetes Back pain History of ulceration Shortness of breath on exertion History of pain when walking History of edema Hidradenitis suppurativa of anus Suppurative hidradenitis Gastric ulcer Ulcer of perianal area with fat layer exposed Nausea and vomiting Proteinuria due to type 2 diabetes mellitus Lupus (systemic lupus erythematosus) Weakness Edema of both legs Acute post-operative pain 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 Chronic pain Hyperlipidemia Coronary artery disease Diabetes mellitus Chronic obstructive pulmonary disease Debility Colostomy in place Complicated open wound of left thigh Open wound of left buttock with complication Abscess of buttock, left Back pain due to injury History of stress test Smoker Coronary artery disease Abscess of left thigh Wound infection Cellulitis Ankle pain Ankle pain Iron deficiency anemia Ulcer of perineum with fat layer exposed Skin ulcer of scrotum Anemia of chronic disease Acute blood loss anemia Ulcer of left groin with fat layer exposed Open wound of scrotum Acute postoperative anemia due to expected blood loss Hidradenitis suppurativa of anus Hypertension Tobacco dependence syndrome Anemia Malnutrition Cough Pneumonia involving right lung Pain in the groin Hydradenitis Diabetes mellitus type 2, uncontrolled, with complications Hypertension Hyperlipidemia associated with type 2 diabetes mellitus Diabetes type 2, uncontrolled COPD (chronic obstructive pulmonary disease) Hydradenitis Home Medications ?Medication ?Instructions ?Recorded ?Last Taken ?Type guselkumab 100 mg/mL subcutaneous 100 mg subcut Q4W ARTHRITIS 04/23/22 09/26/22 History syringe ([place]) carvedilol 25 mg tablet 25 mg PO BID #60 tabs 03/01/23 06/06/23 Rx glimepiride 2 mg tablet 2 mg PO DAILY #30 tabs 03/01/23 Unknown Rx nifedipine 90 mg tablet,extended 90 mg PO DAILY #90 tabs 05/08/23 06/06/23 Rx release 24 hr furosemide 40 mg tablet (Lasix) 40 mg PO DAILY #30 tabs 05/17/23 Unknown Rx gabapentin 300 mg capsule 300 mg PO BID 30 days #60 caps 06/02/23 Unknown Rx aspirin 81 mg tablet,delayed 81 mg PO DAILY 06/06/23 06/06/23 History release oxycodone 5 mg tablet 5 mg PO Q8H PRN PRN Pain Score 06/07/23 Unknown Rx 4-10 5 days #15 tabs clopidogrel 75 mg tablet 75 mg PO DAILY #30 tabs 06/17/23 Unknown Rx metronidazole 500 mg tablet 500 mg PO Q8H 14 days #42 tabs 06/19/23 Unknown Rx linezolid 600 mg tablet 600 mg PO BID #20 tabs 06/21/23 Unknown Rx collagenase clostridium histo. 250 1 applic topical DAILY 15 days #30 06/26/23 Unknown Rx unit/gram topical ointment (Santyl) grams cholecalciferol (vitamin D3) 1,250 1,250 mcg PO QMONTH 30 days #1 cap 06/28/23 Unknown Rx mcg (50,000 unit) capsule epoetin belinda 4,000 unit/mL 7,000 unit (1.75 mL) subcut 3XW 30 06/28/23 Unknown Rx injection solution days #22.75 mL Allergy/AdvReac Type Severity Reaction Status Date / Time Penicillins Allergy Unknown Verified 06/21/23 15:32 Sulfa (Sulfonamide Allergy Unknown Verified 06/21/23 15:32 Antibiotics) bupropion (From Wellbutrin) AdvReac Severe change in Verified 06/21/23 15:32 personality ,meanness and smoked more Family History Aunt Lung disease lung cancer Father Heart disease Hypertension Family history of high cholesterol Diabetes Mother Diabetes Daughter Epilepsy Surgical History Hx of vascular surgery History of excision of lesion History of incision and drainage History of coronary artery stent placement History of removal of cyst Hx of hernia repair History of tonsillectomy and adenoidectomy Social History household members: spouse Smoking Status: Current every day smoker tobacco type: cigarettes alcohol intake: never substance use type: does not use caffeine: Yes (7) Type: coffee additional social history: DOES NOT TAKE ASPIRIN DOES NOT TAKE IBUPROFEN ROS Constitutional Constitutional: Reports daytime sleepiness and fatigue; Denies body ache(s), chills or fever(s) Eyes Eyes: Reports as per HPI and other Details: very poor vision. Is able to see shadows ENT HEENT: Reports none Cardiovascular Cardiovascular: Denies chest pain or dyspnea Respiratory/Chest Respiratory/Chest: Denies cough or dyspnea Gastrointestinal Gastrointestinal: Reports as per HPI and other Details: Has a colostomy Genitourinary Genitourinary: Reports none Musculoskeletal Musculoskeletal: Reports back pain and stiffness Integumentary Integumentary: Reports wounds and other Details: He has a history of hidradenitis. Neurologic Neurologic: Reports loss of vision Psychiatric Psychiatric: Reports none Endocrine Endocrinology: Reports none Vital Signs Vital Signs Vital Signs: 06/26/23 13:06 Temperature 97.7 F L Temperature Source Temporal Pulse Rate 65 Respiratory Rate 16 Blood Pressure 176/48 H Blood Pressure Mean 90 Blood Pressure Source Monitor Blood Pressure Position Supine Blood Pressure Location Left Arm Oxygen Delivery Method Room Air Physical Exam Const alert, oriented x3 and no apparent distress General Appearance: cooperative Orientation / Consciousness: awake HEENT normocephalic Head and Scalp: atraumatic Eyes PERRL Neck full ROM Lymph Lymphatic: no lymphedema noted Resp normal respiratory effort, normal air movement and clear to auscultation bilaterally Effort and Inspection: able to speak in complete sentences Cardio regular rate and regular rhythm GI soft to palpation Back/Spine normal ROM Extremity full ROM Extremity Narrative: Left lower extremity is pink. Good capillary refills in his toes. Unable to palpate dorsalis pedis, but able to use Doppler to hear. Skin Wound Narrative: Left groin wound with significant amount of nonviable tissue and slough. No erythema. No odor. Neuro oriented x3 Psych mental status grossly normal and thought process normal Debridement Note Debridement Note Wound debrided: Groin Laterality: Left Wound Grade/Stage: Grade 3 Type of Debridement: Excisional debridement Anesthesia Used: 5% Lidocaine Gel Depth: Down to and including healthy tissue and in the subcutaneous layer Percentage of wound debrided: 100 Instrument Used: - (Pick ups and scissors) Tissue Removed: Non viable tissue and slough Severity: Fat Layer Exposed Amount of bleeding with debridement: Mild Bleeding Controlled with: Compression and gauze Patient tolerated procedure: Patient tolerated procedure well Debridement Free Text: Removed nonviable tissue and slough. Not an aggressive debridement due to the location. Post-Debridement Measurements and Additional Note: Post-Debridement Measurements/Treatment - Nurse 1 - General Ulcer Assessment Start: 06/26/23 13:04 Freq: Status: Active Protocol: ROC Activity Type Activity Date Activity User E-sign Co-sign Detail Recorded Client Recorded Date Recorded By Document 06/26/23 13:06 [facility] wound center 06/26/23 13:17 [facility] 06/26/23 13:06 - Today's Visit Information Type of service Initial Visit Arrival Mode Ambulatory Transfer Assistance None Accompanied by Patient Identification Verified (Name & Yes ) Patient Requires Transmission-Based No Precautions Vital Signs Temperature (97.8 F-99.1 F) 97.7 F L Temperature Source Temporal Pulse Rate (60-100) 65 Pulse Location Monitor Respiratory Rate (12-18) 16 Respiratory rate source Observation Oxygen Delivery Method Room Air Blood Pressure (90/60-120/80) 176/48 H Blood Pressure Mean 90 Source Monitor Position Supine Blood Pressure Location Left Arm History Since Last Visit- (Skip if this is Patient's initial visit) Left Footwear Regular Shoe Right Footwear Regular Shoe Pain Scale: 0-10 Numeric Is Patient Pain Free? Yes WC - Nurse 1 - General Ulcer Measurement Start: 06/26/23 13:04 Freq: Status: Active Protocol: Activity Type Activity Date Activity User E-sign Co-sign Detail Recorded Client Recorded Date Recorded By Document 06/26/23 13:06 [facility] wound center 06/26/23 13:17 [facility] 06/26/23 13:06 Wound Center Nurse 1 #9- L GROIN (POST VASCULAR PROCEDURE) -Combined with other wound No -Current Size (cm) - Length 2.1 -Current Size (cm) - Width 3 -Current Size (cm) - Depth 0.2 -Total Square Cm 6.3 -Date of Last Picture (Recall this 06/26/23 field) -Photo Taken Yes -Epithelialization None Present -Tunneling No -Undermining/Tunneling No -Circular Undermining No -Exudate Amt Medium -Exudate Type Serosanguineous -Wound Margin Distinct, Outline Attached -Granulation Amt Small (1-33%) -Granulation Quality Red -Slough/Fibrin Yes -Necrosis Amt Large (67-100%) -Necrotic Tissue Type Adherent Slough -Texture ([place]-wound Skin Appearance) Assessed -Moisture ([place]-wound Skin Appearance) Assessed -Color ([place]-wound Skin Appearance) No Abnormality, Erythema -Temperature ([place]-wound Skin No Abnormality Appearance) (Pt Warm) -Tenderness on Palpation ([place]-wound No Skin Appearance) -Ulcer Cleansing Soap and Water -Foul Odor after Cleansing No -Anesthetic Used 5% Lidocaine Gel WC - Nurse 2 - General Ulcer CM Notes Start: 06/26/23 13:04 Freq: Status: Active Protocol: Activity Type Activity Date Activity User E-sign Co-sign Detail Recorded Client Recorded Date Recorded By Document 06/26/23 13:32 [id number] 06/26/23 13:42 06/26/23 13:32 Wound Center Nurse 2 -Time 13:32 -Correct Patient Yes -Correct Side, Site, Position Yes -Correct Procedure Yes -Procedure Performed Yes -Type of Procedure Debridement -Clinical Debridement Subcutaneous -Tissue Removed Subcutaneous -Post Debridement (cm) - Length 2.9 -Post Debridement (cm) - Width 3.0 -Post Debridement (cm) - Depth 0.7 -Total Square (Post) (cm) 8.70 -Area of Debridement (cm) - Length 2.9 -Area of Debridement (cm) - Width 3.0 -Total Square (Area) (cm) 8.70 -Tunneling No -Undermining/Tunneling No -Circular Undermining No -Wound/Ulcer Outcome Not Healed -Bleeding Controlled with Pressure -Treatment Response Procedure Tolerated Well -Debridement - Subq, 1st 20sq cm Yes Pain Scale: 0-10 Numeric Is Patient Pain Free? Yes - Nurse 3 - General Ulcer D/C NN Start: 06/26/23 13:04 Freq: Status: Active Protocol: Activity Type Activity Date Activity User E-sign Co-sign Detail Recorded Client Recorded Date Recorded By Document 06/26/23 13:51 [facility] wound center 06/26/23 13:51 06/26/23 13:51 Wound Care Center Nurse 3 #9- L GROIN (POST VASCULAR PROCEDURE) -Ulcer Cleansing Rinsed/ Irrigated with Saline -Other Dressing hydrogel -Primary Dressing Covered/Secured with Dry Gauze -Other Covering abd Treatment Response Procedure Tolerated Well Pain Scale: 0-10 Numeric Is Patient Pain Free? Yes WC - Visit Discharge Discharge Condition Stable Ambulatory Status Ambulatory Transportation Private Auto Medication Reconcilliation completed & No provided to patient/care provider Clinical Summary of Care Provided Yes Charges/Coding Visit Charges Office Visits / Consults: [id number] OV L3 Est 20min (25 modifier) Procedures Integumentary [id number]: [id number] Ayla subq tissue 20 sq cm/< Assessment/Plan Assessment/Plan (1) Wound, surgical, nonhealing: CODE(S): T81.89XA - Other complications of procedures, not elsewhere classified, initial encounter QUALIFIERS: Encounter type: initial encounter Qualified Code(s): T81.89XA - Other complications of procedures, not elsewhere classified, initial encounter (2) Diabetes mellitus: CODE(S): E11.9 - Type 2 diabetes mellitus without complications QUALIFIERS: Diabetes mellitus type: type 2 Diabetes mellitus intermission coordinator insulin use: without nursing home use Diabetes mellitus complication status: with circulatory complication Diabetes mellitus complication detail: with other circulatory complications Qualified Code(s): E11.59 - Type 2 diabetes mellitus with other circulatory complications (3) Coronary artery disease: CODE(S): I25.10 - Atherosclerotic heart disease of [place] coronary artery without angina pectoris (4) Peripheral arterial disease: CODE(S): I73.9 - Peripheral vascular disease, unspecified (5) Nicotine dependence: CODE(S): F17.200 - Nicotine dependence, unspecified, uncomplicated (6) Hypertension: CODE(S): I10 - Essential (primary) hypertension QUALIFIERS: Hypertension type: primary hypertension Qualified Code(s): I10 - Essential (primary) hypertension PLAN: Plan Patient evaluated at the wound healing center today. Left groin wound after vascular procedure with significant amount of non viable tissue. Used Pick ups and sharp scissors to remove as much non viable tissue as possible. Not an aggressive debridement due to the location. Wound care - Will start Collagenase Santyl carlo thickness covered with moist gauze then topped with dry gauze daily. Wash area with soap and water daily. Stressed importance of keep this area covered with a dressing. Encouraged patient to stop smoking as it may have deleterious effects on wound healing. Follow up one week.
[2023-07-01 14:04] VITALS: BP 184/68; PULSE 69; RESP 18; TEMP 36
--- NOTE | 2023-07-01 15:47 | PCM.WC.PN ---
History of Present Illness Date of Service: 07/01/23 Chief Complaint: Nonhealing ulcer left groin after LLE angio History of Wound: 57 year old male who is known to me for his significant history for hidradenitis. He recently had a left lower leg atherectomy/angioplasty/stent SFA, angioplasty PT, and left femoral endarterectomy with patch by Dr. Jeffries, vascular surgeon. He developed dehiscence of the left groin incision. He was treated with empirically with Cipro and Flagyl. He initially had a wound VAC which was removed. He states that he has not been keeping this area covered consistently. He has a medical history of DM type II, uncontrolled HTN, CAD, arterial insufficiency, and smoker. He is recently has lost his vision which they believe has been from a stroke. He comes in today for further evaluation of this left groin. Today he denies any fever, chills, nausea or vomiting. Progress of Wound: Left groin wound with less non viable tissue present. There is some pink to the wound bed. There is no erythema, or odor. He has not received the Santyl yet. Covering with dressings. Objective Data Objective Data Vital Signs: Vital Signs Temp Pulse Resp BP O2 Del Method 96.8 F L 69 18 184/68 H Room Air 07/01/23 14:04 07/01/23 14:04 07/01/23 14:04 07/01/23 14:04 07/01/23 14:04 Oxygen Delivery Method Room Air Charges/Coding Procedures Integumentary 111xxx-113xx: 47823 Ayla subq tissue 20 sq cm/< Debridement Note Debridement Note Wound debrided: Groin Laterality: Left Wound Grade/Stage: Grade 3 Type of Debridement: Excisional debridement Anesthesia Used: 5% Lidocaine Gel Depth: Down to and including healthy tissue and in the subcutaneous layer Percentage of wound debrided: 100 Instrument Used: 5mm curette Tissue Removed: Non viable tissue and slough Severity: Fat Layer Exposed Amount of bleeding with debridement: Mild Bleeding Controlled with: Compression and gauze Patient tolerated procedure: Patient tolerated procedure well Debridement Free Text: Removed nonviable tissue and slough. Not an aggressive debridement due to the location. 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/FOUNTAIN MANAGER ) Arrival Mode Ambulatory Ambulatory Transfer Assistance None Accompanied by Patient Identification Verified (Name & Yes Yes ) Patient Requires Transmission-Based No Precautions Vital Signs Temperature (97.8 F-99.1 F) 97.7 F L 96.8 F L Temperature Source Temporal Temporal Pulse Rate (60-100) 65 69 Pulse Location Monitor Monitor Respiratory Rate (12-18) 16 18 Respiratory rate source Observation Observation Oxygen Delivery Method Room Air Room Air Blood Pressure (90/60-120/80) 176/48 H 184/68 H Blood Pressure Mean (mm Hg) 90 106 Source Monitor Monitor Position Supine Prone Blood Pressure Location Left Arm Right Arm History Since Last Visit- (Skip if this is Patient's initial visit) Have you changed medications since your No last visit? Any new allergies or adverse reactions No Had a fall/change in ADL's that may No increase risk of falls Signs or symptoms of abuse and/or No neglect since last visit Have you been in the hospital since your No last visit? Has dressing in place as prescribed Yes Has compression in place as prescribed N/A Has offloadiing in place as prescribed N/A Experienced any changes in pain level or No management Left Footwear Regular Shoe Regular Shoe Right Footwear Regular Shoe Regular Shoe Pain Scale: 0-10 Numeric Is Patient Pain Free? Yes Yes - Nurse 1 - General Ulcer Measurement Start: 06/26/23 13:04 Freq: Status: Active Protocol: Activity Type Activity Date Activity User E-sign Co-sign Detail Recorded Client Recorded Date Recorded By Document 06/26/23 13:06 [facility] wound center 06/26/23 13:17 [facility] Document 07/01/23 14:04 [facility] wound center 07/01/23 14:09 06/26/23 07/01/23 13:06 14:04 Wound Center Nurse 1 #9- L GROIN (POST VASCULAR PROCEDURE) -Combined with other wound No -Current Size (cm) - Length 2.1 2 -Current Size (cm) - Width 3 4.4 -Current Size (cm) - Depth 0.2 0.4 -Total Square Cm 6.3 8.8 -Date of Last Picture (Recall this 06/26/23 field) -Photo Taken Yes -Epithelialization None Present -Tunneling No -Undermining/Tunneling No -Circular Undermining No -Exudate Amt Medium Small -Exudate Type Serosanguineous Serosanguineous -Wound Margin Distinct, Distinct, Outline Outline Attached Attached -Granulation Amt Small (1-33%) Medium (34-66%) -Granulation Quality Red [place] -Slough/Fibrin Yes -Necrosis Amt Large (67-100%) Medium (34-66%) -Necrotic Tissue Type Adherent Slough Adherent Slough -Texture (Abimbola-wound Skin Appearance) Assessed Assessed, Scarring -Moisture ([place]imbola-wound Skin Appearance) Assessed Assessed -Color (Abimbola-wound Skin Appearance) No Abnormality, Assessed Erythema -Temperature ([place]imbola-wound Skin No Abnormality No Abnormality Appearance) (Pt Warm) (Pt Warm) -Tenderness on Palpation (Abimbola-wound No No Skin Appearance) -Ulcer Cleansing Soap and Water Rinsed/ Irrigated with Saline -Foul Odor after Cleansing No No -Anesthetic Used 5% Lidocaine 5% Lidocaine Gel Gel WC - Nurse 2 - General Ulcer CM Notes Start: 06/26/23 13:04 Freq: Status: Active Protocol: Activity Type Activity Date Activity User E-sign Co-sign Detail Recorded Client Recorded Date Recorded By Document 06/26/23 13:32 [id number] 06/26/23 13:42 Document 07/01/23 14:20 DS [id number] 07/01/23 14:22 DS 06/26/23 07/01/23 13:32 14:20 Wound Center Nurse 2 #9- L GROIN (POST VASCULAR PROCEDURE) -Time 13:32 14:20 -Correct Patient Yes Yes -Correct Side, Site, Position Yes Yes -Correct Procedure Yes Yes -Procedure Performed Yes Yes -Type of Procedure Debridement Debridement -Clinical Debridement Subcutaneous Subcutaneous -Tissue Removed Subcutaneous Subcutaneous -Post Debridement (cm) - Length 2.9 2.4 -Post Debridement (cm) - Width 3.0 3.0 -Post Debridement (cm) - Depth 0.7 0.8 -Total Square (Post) (cm) 8.70 7.20 -Area of Debridement (cm) - Length 2.9 2.4 -Area of Debridement (cm) - Width 3.0 3.0 -Total Square (Area) (cm) 8.70 7.20 -Tunneling No No -Undermining/Tunneling No No -Circular Undermining No No -Wound/Ulcer Outcome Not Healed Not Healed -Ulcer Cleansing Rinsed/ Irrigated with Saline -Bleeding Controlled with Pressure Pressure -Treatment Response Procedure Procedure Tolerated Well Tolerated Well -Debridement - Subq, 1st 20sq cm Yes Yes Pain Scale: 0-10 Numeric Is Patient Pain Free? Yes Yes - Nurse 3 - General Ulcer D/C NN Start: 06/26/23 13:04 Freq: Status: Active Protocol: Activity Type Activity Date Activity User E-sign Co-sign Detail Recorded Client Recorded Date Recorded By Document 06/26/23 13:51 [facility] wound center 06/26/23 13:51 RB Document 07/01/23 14:36 DL [id number] 07/01/23 14:37 DL 06/26/23 07/01/23 13:51 14:36 Wound Care Center Nurse 3 #9- L GROIN (POST VASCULAR PROCEDURE) -Ulcer Cleansing Rinsed/ Rinsed/ Irrigated with Irrigated with Saline Saline -Foul Odor after Cleansing No -Other Dressing hydrogel hydrogel today -Primary Dressing Covered/Secured with Dry Gauze Dry Gauze, Secured with Tape -Other Covering abd -Wound Comment(s) Pt to start Santyl when available Treatment Response Procedure Procedure Tolerated Well Tolerated Well Pain Scale: 0-10 Numeric Is Patient Pain Free? Yes Yes - Visit Discharge Discharge Condition Stable Stable Ambulatory Status Ambulatory Ambulatory Transportation Private Auto Private Auto Medication Reconcilliation completed & No provided to patient/care provider Clinical Summary of Care Provided Yes Assessment/Plan Assessment/Plan (1) Wound, surgical, nonhealing: CODE(S): T81.89XA - Other complications of procedures, not elsewhere classified, initial encounter QUALIFIERS: Encounter type: initial encounter Qualified Code(s): T81.89XA - Other complications of procedures, not elsewhere classified, initial encounter (2) Diabetes mellitus: CODE(S): E11.9 - Type 2 diabetes mellitus without complications QUALIFIERS: Diabetes mellitus type: type 2 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 use: without buttermilk drier operator use Diabetes mellitus complication status: with circulatory complication Diabetes mellitus complication detail: with other circulatory complications Qualified Code(s): E11.59 - Type 2 diabetes mellitus with other circulatory complications (3) Coronary artery disease: CODE(S): I25.10 - Atherosclerotic heart disease of [place] coronary artery without angina pectoris (4) Peripheral arterial disease: CODE(S): I73.9 - Peripheral vascular disease, unspecified (5) Nicotine dependence: CODE(S): F17.200 - Nicotine dependence, unspecified, uncomplicated (6) Hypertension: CODE(S): I10 - Essential (primary) hypertension QUALIFIERS: Hypertension type: primary hypertension Qualified Code(s): I10 - Essential (primary) hypertension PLAN: Plan Patient evaluated at the wound healing center today. Left groin wound after vascular procedure with non viable tissue. Not an aggressive debridement due to the location. Wound care - Collagenase Santyl carlo thickness covered with moist gauze then topped with dry gauze daily. (He states that he has not received it yet). Wash area with soap and water daily. Stressed importance of keep this area covered with a dressing. Encouraged patient to stop smoking as it may have deleterious effects on wound healing. Follow up one week.
[2023-07-10 15:14] VITALS: BP 170/44; PULSE 60; RESP 18; TEMP 36.3
--- NOTE | 2023-07-10 17:15 | PN.PCM_ITS ---
History of Present Illness Date of Service: 07/10/23 Chief Complaint: Nonhealing ulcer left groin after LLE angio History of Wound: 57 year old male who is known to me for his significant history for hidradenitis. He recently had a left lower leg atherectomy/angioplasty/stent SFA, angioplasty PT, and left femoral endarterectomy with patch by Dr. Jeffries, vascular surgeon. He developed dehiscence of the left groin incision. He was treated with empirically with Cipro and Flagyl. He initially had a wound VAC which was removed. He states that he has not been keeping this area covered consistently. He has a medical history of DM type II, uncontrolled HTN, CAD, arterial insufficiency, and smoker. He is recently has lost his vision which they believe has been from a stroke. He comes in today for further evaluation of this left groin. Today he denies any fever, chills, nausea or vomiting. Progress of Wound: Left groin wound is beefy pink, the slough has resolved. Overall the wound is looking much better. He still has not received the Santyl yet. He has been using hydrogel covered with gauze. Objective Data Objective Data Vital Signs: Vital Signs Temp Pulse Resp BP O2 Del Method 97.3 F L 60 18 170/44 H Room Air 07/10/23 15:14 07/10/23 15:14 07/10/23 15:14 07/10/23 15:14 07/01/23 14:04 Oxygen Delivery Method Room Air Charges/Coding Procedures Integumentary 111xxx-113xx: 18087 Ayla subq tissue 20 sq cm/< Debridement Note Debridement Note Wound debrided: Groin Laterality: Left Wound Grade/Stage: Grade 3 Type of Debridement: Excisional debridement Anesthesia Used: 5% Lidocaine Gel Depth: Down to and including healthy tissue and in the subcutaneous layer Percentage of wound debrided: 100 Instrument Used: 5mm curette Tissue Removed: Non viable tissue and slough Severity: Fat Layer Exposed Amount of bleeding with debridement: Mild Bleeding Controlled with: Compression and gauze Patient tolerated procedure: Patient tolerated procedure well Debridement Free Text: Not an aggressive debridement due to the location. Post-Debridement Measurements and Additional Note: Post-Debridement Measurements/Treatment BEKA - Nurse 1 - General Ulcer Assessment Start: 06/26/23 13:04 Freq: Status: Active Protocol: WC.LOWEXT Activity Type Activity Date Activity User E-sign Co-sign Detail Recorded Client Recorded Date Recorded By Document 06/26/23 13:06 [facility] wound center 06/26/23 13:17 [facility] Document 07/01/23 14:04 [facility] wound center 07/01/23 14:09 KW Document 07/10/23 15:14 RB wound cnter 07/10/23 15:16 RB 06/26/23 07/01/23 07/10/23 13:06 14:04 15:14 WC - Today's Visit Information Type of service Initial Visit Follow-up Visit Follow-up Visit (Physician/HEALTH AND SAFETY TRAINER (Physician/HEALTH AND SAFETY TRAINER ) ) Arrival Mode Ambulatory Ambulatory Ambulatory Transfer Assistance None None Accompanied by Patient Identification Verified (Name & Yes Yes Yes ) Patient Requires Transmission-Based No No Precautions Vital Signs Temperature (97.8 F-99.1 F) 97.7 F L 96.8 F L 97.3 F L Temperature Source Temporal Temporal Temporal Pulse Rate (60-100) 65 69 60 Pulse Location Monitor Monitor Monitor Respiratory Rate (12-18) 16 18 18 Respiratory rate source Observation Observation Observation Oxygen Delivery Method Room Air Room Air Blood Pressure (90/60-120/80) 176/48 H 184/68 H 170/44 H Blood Pressure Mean (mm Hg) 90 106 86 Source Monitor Monitor Monitor Position Supine Prone Semi-Fowlers Blood Pressure Location Left Arm Right Arm Left Arm History Since Last Visit- (Skip if this is Patient's initial visit) Have you changed medications since your No No last visit? Any new allergies or adverse reactions No No Had a fall/change in ADL's that may No No increase risk of falls Signs or symptoms of abuse and/or No No neglect since last visit Have you been in the hospital since your No No last visit? Has dressing in place as prescribed Yes Yes Has compression in place as prescribed N/A No Has offloadiing in place as prescribed N/A No Experienced any changes in pain level or No No management Left Footwear Regular Shoe Regular Shoe Right Footwear Regular Shoe Regular Shoe Pain Scale: 0-10 Numeric Is Patient Pain Free? Yes Yes No L groin -Description Aching -Intensity 7 -Duration (hours) Acute -Pain Behavior Irritability -Pain Aggravating Factors Exercise/ Activity, Debridement -Alleviating Factors/Interventions None WC - Nurse 1 - General Ulcer Measurement Start: 06/26/23 13:04 Freq: Status: Active Protocol: Activity Type Activity Date Activity User E-sign Co-sign Detail Recorded Client Recorded Date Recorded By Document 06/26/23 13:06 [facility] wound center 06/26/23 13:17 BM[facility] Document 07/01/23 14:04 [facility] wound center 07/01/23 14:09 KW Document 07/10/23 15:14 RB wound cnter 07/10/23 15:16 RB 06/26/23 07/01/23 07/10/23 13:06 14:04 15:14 Wound Center Nurse 1 #9- L GROIN (POST VASCULAR PROCEDURE) -Combined with other wound No No -Current Size (cm) - Length 2.1 2 2 -Current Size (cm) - Width 3 4.4 2 -Current Size (cm) - Depth 0.2 0.4 0.8 -Total Square Cm 6.3 8.8 4 -Date of Last Picture (Recall this 06/26/23 field) -Photo Taken Yes Yes -Epithelialization None Present -Tunneling No No -Undermining/Tunneling No No -Circular Undermining No No -Exudate Amt Medium Small Medium -Exudate Type Serosanguineous Serosanguineous Serosanguineous -Wound Margin Distinct, Distinct, Thickened & Outline Outline Rolled Under Attached Attached -Granulation Amt Small (1-33%) Medium (34-66%) Medium (34-66%) -Granulation Quality Red Level Green Level Green -Slough/Fibrin Yes Yes -Necrosis Amt Large (67-100%) Medium (34-66%) Small (1-33%) -Necrotic Tissue Type Adherent Slough Adherent Slough Adherent Slough -Structure Exposed N/A -Texture (Abimbola-wound Skin Appearance) Assessed Assessed, Assessed Scarring -Moisture ([place]imbola-wound Skin Appearance) Assessed Assessed Assessed -Color (Abimbola-wound Skin Appearance) No Abnormality, Assessed Assessed, Erythema Erythema -Temperature (Abimbola-wound Skin No Abnormality No Abnormality No Abnormality Appearance) (Pt Warm) (Pt Warm) (Pt Warm) -Tenderness on Palpation (Abimbola-wound No No No Skin Appearance) -Ulcer Cleansing Soap and Water Rinsed/ Wound Cleanser Irrigated with Saline -Foul Odor after Cleansing No No Yes, Due to Product Use -Anesthetic Used 5% Lidocaine 5% Lidocaine 5% Lidocaine Gel Gel Gel WC - Nurse 2 - General Ulcer CM Notes Start: 06/26/23 13:04 Freq: Status: Active Protocol: Activity Type Activity Date Activity User E-sign Co-sign Detail Recorded Client Recorded Date Recorded By Document 06/26/23 13:32 [place] [id number] 06/26/23 13:42 Document 07/01/23 14:20 DS [id number] 07/01/23 14:22 DS Document 07/10/23 15:58 [facility] 07/10/23 16:00 06/26/23 07/01/23 07/10/23 13:32 14:20 15:58 Wound Center Nurse 2 #9- L GROIN (POST VASCULAR PROCEDURE) -Time 13:32 14:20 15:58 -Correct Patient Yes Yes Yes -Correct Side, Site, Position Yes Yes Yes -Correct Procedure Yes Yes Yes -Procedure Performed Yes Yes Yes -Type of Procedure Debridement Debridement Debridement -Clinical Debridement Subcutaneous Subcutaneous Subcutaneous -Tissue Removed Subcutaneous Subcutaneous Subcutaneous -Post Debridement (cm) - Length 2.9 2.4 1.8 -Post Debridement (cm) - Width 3.0 3.0 2.3 -Post Debridement (cm) - Depth 0.7 0.8 0.4 -Total Square (Post) (cm) 8.70 7.20 4.14 -Area of Debridement (cm) - Length 2.9 2.4 1.8 -Area of Debridement (cm) - Width 3.0 3.0 2.3 -Total Square (Area) (cm) 8.70 7.20 4.14 -Tunneling No No No -Undermining/Tunneling No No No -Circular Undermining No No No -Wound/Ulcer Outcome Not Healed Not Healed Not Healed -Ulcer Cleansing Rinsed/ Rinsed/ Irrigated with Irrigated with Saline Saline -Foul Odor after Cleansing No -Bioengineered Tissue No -Bleeding Controlled with Pressure Pressure Pressure -Treatment Response Procedure Procedure Procedure Tolerated Well Tolerated Well Tolerated Well -Debridement - Subq, 1st 20sq cm Yes Yes Yes Pain Scale: 0-10 Numeric Is Patient Pain Free? Yes Yes Yes - Nurse 3 - General Ulcer D/C NN Start: 06/26/23 13:04 Freq: Status: Active Protocol: Activity Type Activity Date Activity User E-sign Co-sign Detail Recorded Client Recorded Date Recorded By Document 05/15/24 13:51 RB wound center 06/26/23 13:51 RB Document 07/01/23 14:36 DL 10.10.25.7 07/01/23 14:37 DL Document 07/10/23 16:09 wound cnter 07/10/23 16:10 RB 06/26/23 07/01/23 07/10/23 13:51 14:36 16:09 Wound Care Center Nurse 3 #9- L GROIN (POST VASCULAR PROCEDURE) -Ulcer Cleansing Rinsed/ Rinsed/ Irrigated with Irrigated with Saline Saline -Foul Odor after Cleansing No -Primary Dressing Applied Mepilex Border, Promogran Jacqueline Matter -Other Dressing hydrogel hydrogel today -Primary Dressing Covered/Secured with Dry Gauze Dry Gauze, Secured with Tape -Other Covering abd -Mepilex Border 1 -Promogran Jacqueline Matter 1 -Wound Comment(s) Pt to start Santyl when available Treatment Response Procedure Procedure Procedure Tolerated Well Tolerated Well Tolerated Well Pain Scale: 0-10 Numeric Is Patient Pain Free? Yes Yes No L groin -Description Aching -Intensity 6 -Duration (hours) Acute -Alleviating Factors/Interventions None WC - Visit Discharge Discharge Condition Stable Stable Stable Ambulatory Status Ambulatory Ambulatory Ambulatory Transportation Private Auto Private Auto Private Auto Medication Reconcilliation completed & No No provided to patient/care provider Clinical Summary of Care Provided Yes Yes Assessment/Plan Assessment/Plan (1) Wound, surgical, nonhealing: CODE(S): T81.89XA - Other complications of procedures, not elsewhere classified, initial encounter QUALIFIERS: Encounter type: initial encounter Qualified Code(s): T81.89XA - Other complications of procedures, not elsewhere classified, initial encounter (2) Diabetes mellitus: CODE(S): E11.9 - Type 2 diabetes mellitus without complications QUALIFIERS: Diabetes mellitus type: type 2 Diabetes mellitus mcc insulin use: without mcc use Diabetes mellitus complication status: with circulatory complication Diabetes mellitus complication detail: with other circulatory complications Qualified Code(s): E11.59 - Type 2 diabetes mellitus with other circulatory complications (3) Coronary artery disease: CODE(S): I25.10 - Atherosclerotic heart disease of [place] coronary artery without angina pectoris (4) Peripheral arterial disease: CODE(S): I73.9 - Peripheral vascular disease, unspecified (5) Nicotine dependence: CODE(S): F17.200 - Nicotine dependence, unspecified, uncomplicated (6) Hypertension: CODE(S): I10 - Essential (primary) hypertension QUALIFIERS: Hypertension type: primary hypertension Qualified Code(s): I10 - Essential (primary) hypertension PLAN: Plan Patient evaluated at the wound healing center today. Wound is looking much better. Wound bed is nice beefy pink color, bleeds well with debridement. Patient unable to get Santyl (was told it was on back order). Wound care - Change dressing to Jacqueline covered gauze/ABD after washing area with soap and water daily. Stressed importance of keep this area covered with a dressing. Encouraged patient to stop smoking as it may have deleterious effects on wound healing. He sees Dr. Jeffries next week. Follow up two weeks.
== END 2023-07-12 23:59 | disposition home or self-care (01) ==
LOC: WC 15:15
PROVIDERS: PCP Nurse Practitioner; Referring Provider Physician Assistant; Visit Provider Nurse Practitioner Family
DX: E11.622 Type 2 diabetes mellitus with other skin ulcer (principal); L98.492 Non-pressure chronic ulcer of skin of other sites with fat layer exposed; J44.9 Chronic obstructive pulmonary disease, unspecified; E11.51 Type 2 diabetes mellitus with diabetic peripheral angiopathy without gangrene; E11.22 Type 2 diabetes mellitus with diabetic chronic kidney disease; Z79.02 Long term (current) use of antithrombotics/antiplatelets; N18.9 Chronic kidney disease, unspecified; I12.9 Hypertensive chronic kidney disease with stage 1 through stage 4 chronic kidney disease, or unspecified chronic kidney disease; E78.5 Hyperlipidemia, unspecified; I25.10 Atherosclerotic heart disease of native coronary artery without angina pectoris; Z79.84 Long term (current) use of oral hypoglycemic drugs; L73.2 Hidradenitis suppurativa; Z79.899 Other long term (current) drug therapy; Z79.82 Long term (current) use of aspirin; F17.210 Nicotine dependence, cigarettes, uncomplicated
CPT/HCPCS: 11042; 99213; G0463

== ENCOUNTER 2023-07-17 15:10 | Outpatient (CLI) | payer MEDICARE, BC, SELFPAY ==
[2023-07-17 15:29] VITALS: BP 127/68; PULSE 63; RESP 16; TEMP 35.8; O2SAT 98
[2023-07-17] MEDS: Epoetin Alfa-EPBX 20,000 unit/ml 20000 UNIT SC (15:32)
[2023-07-17 15:34] LABS: Absolute Lymphocyte Count 2.99 X10^3/uL (0.83-4.51); Absolute Neutrophil Count 8.8 X10^3/uL (2.0-7.7); Basophil# 0.09 X10^3/uL; Basophil% 0.7 % (0-1); Eosinophil# 0.33 X10^3/uL; Eosinophils% 2.5 % (0-5); Hematocrit 28.1 % (40-54); Hemoglobin 8.5 g/dL (13.0-16.5); Lymphocyte # 2.99 X10^3/ul (0.83-4.51); Mean Corp Hgb Conc 30.2 g/dL (32-36); Mean Corpuscular Hgb 25.1 pg (27.0-32.0); Mean Corpuscular Volume 83.1 fL (80-94); Mean Platelet Vol. 8.5 fl (6.2-12.0); Monocyte# 0.71 X10^3/uL; Monocyte% 5.5 % (0-10); NRBC Flagged by Analyzer 0 % (0-5); Neutrophil # 8.84 X10^3/uL (2.7-7.7); Neutrophil % 67.8 % (47-70); Platelet Count 436 K/mm3 (150-450); RBC Distribution Width CV 14.8 % (11.6-14.6); RBC Distribution Width SD 44.8 fl (35.1-43.9); Red Blood Count 3.38 M/mm3 (4.6-6.2)
[2023-07-17 15:50] LABS: Anion Gap 6 (5-15); BUN 12 mg/dL (7-18); BUN/Creat Ratio 4.2 RATIO (10-20); Calcium,Total 8.9 mg/dL (8.5-10.1); Chloride 107 mmol/L (98-107); Creatinine, Serum 2.87 mg/dL (0.70-1.30); EST Glomerular Filtration Rate 24 mL/min (>60); Est Glom Filt Rate - Afr Amer 29 mL/min (>60); Glucose 109 mg/dL (74-106); Potassium 4.4 mmol/L (3.5-5.1); Sodium Level 136 mmol/L (136-145)
== END 2023-07-17 23:59 | disposition home or self-care (01) ==
PROVIDERS: PCP Nurse Practitioner; Referring Provider Nurse Practitioner; Visit Provider Nurse Practitioner
DX: D64.9 Anemia, unspecified (principal); N18.4 Chronic kidney disease, stage 4 (severe); E11.22 Type 2 diabetes mellitus with diabetic chronic kidney disease
CPT/HCPCS: 36415; 80048; 85025; 96372; Q5106

== ENCOUNTER 2023-07-19 13:49 | Outpatient (CLI) | payer MEDICARE, BC, SELFPAY ==
[2023-07-19 14:02] VITALS: BP 150/61; PULSE 63; RESP 16; TEMP 36.4; O2SAT 100; BMI 23.2
[2023-07-19] MEDS: Epoetin Alfa-EPBX 20,000 unit/ml 20000 UNIT SC (14:14)
== END 2023-07-19 23:59 | disposition home or self-care (01) ==
LOC: MEDOUTP 13:49
PROVIDERS: PCP Nurse Practitioner; Referring Provider Nurse Practitioner; Visit Provider Nurse Practitioner
DX: D64.9 Anemia, unspecified (principal)
CPT/HCPCS: 96372; Q5106

== ENCOUNTER 2023-07-22 13:59 | Outpatient (CLI) | payer MEDICARE, BC, SELFPAY ==
[2023-07-22 14:17] VITALS: BP 168/69; PULSE 69; RESP 16; TEMP 36.6; O2SAT 99; BMI 23.2
[2023-07-22] MEDS: Epoetin Alfa-EPBX 20,000 unit/ml 20000 UNIT SC (14:36)
== END 2023-07-22 23:59 | disposition home or self-care (01) ==
LOC: MEDOUTP 13:59
PROVIDERS: PCP Nurse Practitioner; Referring Provider Nurse Practitioner; Visit Provider Nurse Practitioner
DX: N18.4 Chronic kidney disease, stage 4 (severe) (principal); D63.1 Anemia in chronic kidney disease
CPT/HCPCS: 96372; Q5106

== ENCOUNTER 2023-07-24 14:18 | Outpatient (CLI) | payer MEDICARE, BC, SELFPAY ==
[2023-07-24 14:27] VITALS: BP 129/61; PULSE 73; RESP 16; TEMP 36.1
[2023-07-24] MEDS: Epoetin Alfa-EPBX 20,000 unit/ml 20000 UNIT SC (14:31)
== END 2023-07-24 23:59 | disposition home or self-care (01) ==
LOC: MEDOUTP 14:18
PROVIDERS: PCP Nurse Practitioner; Referring Provider Nurse Practitioner; Visit Provider Nurse Practitioner
DX: N18.4 Chronic kidney disease, stage 4 (severe) (principal); D63.1 Anemia in chronic kidney disease
CPT/HCPCS: 96372; Q5106

== ENCOUNTER 2023-07-26 14:04 | Outpatient (CLI) | payer MEDICARE, BC, SELFPAY ==
[2023-07-26 14:21] VITALS: BP 142/65; PULSE 69; RESP 16; TEMP 36.2; O2SAT 100; BMI 23.2
[2023-07-26] MEDS: Epoetin Alfa-EPBX 20,000 unit/ml 20000 UNIT SC (14:23)
== END 2023-07-26 23:59 | disposition home or self-care (01) ==
LOC: MEDOUTP 14:04
PROVIDERS: PCP Nurse Practitioner; Referring Provider Nurse Practitioner; Visit Provider Nurse Practitioner
DX: D64.9 Anemia, unspecified (principal); N17.9 Acute kidney failure, unspecified
CPT/HCPCS: 96372; Q5106

== ENCOUNTER 2023-07-29 14:25 | Outpatient (CLI) | payer MEDICARE, BC, SELFPAY ==
[2023-07-29 14:31] VITALS: BP 140/62; PULSE 71; RESP 16; TEMP 36.6; O2SAT 98
[2023-07-29] MEDS: Epoetin Alfa-EPBX 20,000 unit/ml 20000 UNIT SC (14:37)
== END 2023-07-29 23:59 | disposition home or self-care (01) ==
LOC: MEDOUTP 14:25
PROVIDERS: PCP Nurse Practitioner; Referring Provider Nurse Practitioner; Visit Provider Nurse Practitioner
DX: D64.9 Anemia, unspecified (principal)
CPT/HCPCS: 96372; Q5106

== ENCOUNTER 2023-07-31 13:24 | Outpatient (CLI) | payer MEDICARE, BC, SELFPAY ==
[2023-07-31 13:54] VITALS: BP 175/61; PULSE 68; RESP 16; TEMP 36.4; O2SAT 100; BMI 23.2
[2023-07-31 13:54] LABS: Absolute Lymphocyte Count 2.16 X10^3/uL (0.83-4.51); Absolute Neutrophil Count 8.6 X10^3/uL (2.0-7.7); Basophil# 0.09 X10^3/uL; Basophil% 0.8 % (0-1); Eosinophil# 0.18 X10^3/uL; Eosinophils% 1.5 % (0-5); Hematocrit 30.1 % (40-54); Hemoglobin 8.9 g/dL (13.0-16.5); Lymphocyte # 2.16 X10^3/ul (0.83-4.51); Lymphocyte % 18.3 % (19-41); Mean Corp Hgb Conc 29.6 g/dL (32-36); Mean Corpuscular Hgb 24.1 pg (27.0-32.0); Mean Corpuscular Volume 81.6 fL (80-94); Mean Platelet Vol. 8.2 fl (6.2-12.0); Monocyte# 0.72 X10^3/uL; Monocyte% 6.1 % (0-10); NRBC Flagged by Analyzer 0 % (0-5); Neutrophil # 8.62 X10^3/uL (2.7-7.7); Neutrophil % 72.8 % (47-70); Platelet Count 473 K/mm3 (150-450); RBC Distribution Width CV 15.2 % (11.6-14.6); RBC Distribution Width SD 44.7 fl (35.1-43.9); Red Blood Count 3.69 M/mm3 (4.6-6.2); White Blood Count 11.8 K/mm3 (4.4-11.0)
[2023-07-31] MEDS: Epoetin Alfa-EPBX 20,000 unit/ml 20000 UNIT SC (13:58)
[2023-07-31 14:15] LABS: Anion Gap 4 (5-15); BUN 13 mg/dL (7-18); BUN/Creat Ratio 4.5 RATIO (10-20); Calcium,Total 8.9 mg/dL (8.5-10.1); Chloride 109 mmol/L (98-107); Creatinine, Serum 2.92 mg/dL (0.70-1.30); EST Glomerular Filtration Rate 24 mL/min (>60); Est Glom Filt Rate - Afr Amer 29 mL/min (>60); Estimated Creatinine Clearance 26.03 ml/min; Glucose 187 mg/dL (74-106); Potassium 4.4 mmol/L (3.5-5.1); Sodium Level 137 mmol/L (136-145)
== END 2023-07-31 23:59 | disposition home or self-care (01) ==
LOC: MEDOUTP 13:25
PROVIDERS: PCP Nurse Practitioner; Referring Provider Nurse Practitioner; Visit Provider Nurse Practitioner
DX: N18.4 Chronic kidney disease, stage 4 (severe) (principal); D63.1 Anemia in chronic kidney disease
CPT/HCPCS: 36415; 80048; 85025; 96372; Q5106

== ENCOUNTER 2023-08-02 13:59 | Outpatient (CLI) | payer MEDICARE, BC, SELFPAY ==
[2023-08-02 14:05] VITALS: BP 154/68; PULSE 67; RESP 16; TEMP 36.4; O2SAT 99; BMI 23.2
[2023-08-02] MEDS: Epoetin Alfa-EPBX 20,000 unit/ml 20000 UNIT SC (14:41)
== END 2023-08-02 23:59 | disposition home or self-care (01) ==
LOC: MEDOUTP 13:59
PROVIDERS: PCP Nurse Practitioner; Referring Provider Nurse Practitioner; Visit Provider Nurse Practitioner
DX: N18.4 Chronic kidney disease, stage 4 (severe) (principal); D63.1 Anemia in chronic kidney disease
CPT/HCPCS: 96372; Q5106

== ENCOUNTER 2023-08-05 14:23 | Outpatient (CLI) | payer MEDICARE, BC, SELFPAY ==
[2023-08-05 14:29] VITALS: BP 145/46; PULSE 66; RESP 16; TEMP 36.4; O2SAT 100
[2023-08-05] MEDS: Epoetin Alfa-EPBX 20,000 unit/ml 20000 UNIT SC (14:35)
== END 2023-08-05 23:59 | disposition home or self-care (01) ==
LOC: MEDOUTP 14:23
PROVIDERS: PCP Nurse Practitioner; Referring Provider Nurse Practitioner; Visit Provider Nurse Practitioner
DX: N18.4 Chronic kidney disease, stage 4 (severe) (principal); D63.1 Anemia in chronic kidney disease
CPT/HCPCS: 96372; Q5106

== ENCOUNTER 2023-08-07 14:26 | Outpatient (CLI) | payer MEDICARE, BC, SELFPAY ==
[2023-08-07 14:33] VITALS: BP 172/55; PULSE 73; RESP 16; TEMP 35.8; O2SAT 99
[2023-08-07] MEDS: Epoetin Alfa-EPBX 20,000 unit/ml 20000 UNIT SC (14:37)
== END 2023-08-07 23:59 | disposition home or self-care (01) ==
LOC: MEDOUTP 14:26
PROVIDERS: PCP Nurse Practitioner; Referring Provider Nurse Practitioner; Visit Provider Nurse Practitioner
DX: N18.4 Chronic kidney disease, stage 4 (severe) (principal); D63.1 Anemia in chronic kidney disease
CPT/HCPCS: 96372; Q5106

== ENCOUNTER 2023-08-07 15:00 | Outpatient (RCR) | payer MEDICARE, BC, SELFPAY ==
[2023-07-13 02:36] VITALS: BP 170/44; PULSE 60; RESP 18; TEMP 36.3
[2023-07-24 15:10] VITALS: BP 170/56; PULSE 70; RESP 16; TEMP 35.8
--- NOTE | 2023-07-24 16:54 | PCM.WC.PN ---
History of Present Illness Date of Service: 07/24/23 Chief Complaint: Nonhealing ulcer left groin after LLE angio History of Wound: 57 year old male who is known to me for his significant history for hidradenitis. He recently had a left lower leg atherectomy/angioplasty/stent SFA, angioplasty PT, and left femoral endarterectomy with patch by Dr. Jeffries, vascular surgeon. He developed dehiscence of the left groin incision. He was treated with empirically with Cipro and Flagyl. He initially had a wound VAC which was removed. He states that he has not been keeping this area covered consistently. He has a medical history of DM type II, uncontrolled HTN, CAD, arterial insufficiency, and smoker. He is recently has lost his vision which they believe has been from a stroke. He comes in today for further evaluation of this left groin. Today he denies any fever, chills, nausea or vomiting. Progress of Wound: Left groin wound is beefy pink, smaller in size with hypergranulation tissue present. Overall the wound is looking much better. Objective Data Objective Data Vital Signs: Vital Signs Temp Pulse Resp BP O2 Del Method 96.4 F L 70 16 170/56 H Room Air 07/24/23 15:10 07/24/23 15:10 07/24/23 15:10 07/24/23 15:10 07/24/23 15:10 Oxygen Delivery Method Room Air Charges/Coding Procedures Integumentary 111xxx-113xx: 81607 Ayla subq tissue 20 sq cm/< Debridement Note Debridement Note Wound debrided: Groin Laterality: Left Wound Grade/Stage: Grade 3 Type of Debridement: Excisional debridement Anesthesia Used: 5% Lidocaine Gel Depth: Down to and including healthy tissue and in the subcutaneous layer Percentage of wound debrided: 100 Instrument Used: 3mm curette Tissue Removed: Non viable tissue and slough Severity: Fat Layer Exposed Amount of bleeding with debridement: Mild Bleeding Controlled with: Compression and gauze and Silver Nitrate (due to the hypergranulation ) Patient tolerated procedure: Patient tolerated procedure well Post-Debridement Measurements and Additional Note: Post-Debridement Measurements/Treatment BEKA - Nurse 1 - General Ulcer Assessment Start: 07/24/23 15:09 Freq: Status: Active Protocol: ROC Activity Type Activity Date Activity User E-sign Co-sign Detail Recorded Client Recorded Date Recorded By Document 07/24/23 15:10 [facility] 1605-11-20 07/24/23 15:14 [facility] 07/24/23 15:10 WC - Today's Visit Information Type of service Follow-up Visit (Physician/AIR TUCKER ) Arrival Mode Ambulatory Transfer Assistance None Patient Identification Verified (Name & Yes ) Patient Requires Transmission-Based No Precautions Vital Signs Temperature (97.8 F-99.1 F) 96.4 F L Temperature Source Temporal Pulse Rate (60-100) 70 Pulse Location Monitor Respiratory Rate (12-18) 16 Respiratory rate source Observation Oxygen Delivery Method Room Air Blood Pressure (90/60-120/80) 170/56 H Blood Pressure Mean (mm Hg) 94 Source Monitor Position Sitting Blood Pressure Location Left Arm History Since Last Visit- (Skip if this is Patient's initial visit) Have you changed medications since your No last visit? Any new allergies or adverse reactions No Had a fall/change in ADL's that may Yes increase risk of falls Signs or symptoms of abuse and/or No neglect since last visit Have you been in the hospital since your No last visit? Has dressing in place as prescribed No Has compression in place as prescribed N/A Has offloadiing in place as prescribed N/A Experienced any changes in pain level or No management Left Footwear Regular Shoe Right Footwear Regular Shoe Pain Scale: 0-10 Numeric Is Patient Pain Free? Yes - Nurse 1 - General Ulcer Measurement Start: 07/24/23 15:09 Freq: Status: Active Protocol: Activity Type Activity Date Activity User E-sign Co-sign Detail Recorded Client Recorded Date Recorded By Document 07/24/23 15:10 [facility] 1605-11-20 07/24/23 15:14 [facility] 07/24/23 15:10 Wound Center Nurse 1 #9- L GROIN (POST VASCULAR PROCEDURE) -Current Size (cm) - Length 1 -Current Size (cm) - Width 1 -Current Size (cm) - Depth 0 -Total Square Cm 1 -Date of Last Picture (Recall this 07/24/23 field) -Wound Margin Distinct, Outline Attached -Granulation Amt Large (67-100%) -Granulation Quality Hyper- granulation,Red -Texture ([place]-wound Skin Appearance) Assessed, Scarring -Moisture ([place]-wound Skin Appearance) Assessed -Color ([place]-wound Skin Appearance) Assessed - Nurse 2 - General Ulcer CM Notes Start: 07/24/23 15:09 Freq: Status: Active Protocol: Activity Type Activity Date Activity User E-sign Co-sign Detail Recorded Client Recorded Date Recorded By Document 07/24/23 15:45 GM 07/24/23 15:47 GM Edit Result 07/24/23 15:45 GM (1) 07/24/23 15:47 GM (1) #9- L GROIN (POST VASCULAR PROCEDURE) - Bleeding Controlled with Pressure => Pressure,Silver => Nitrate 07/24/23 15:45 Wound Center Nurse 2 -Time 15:45 -Correct Patient Yes -Correct Side, Site, Position Yes -Correct Procedure Yes -Procedure Performed Yes -Type of Procedure Debridement -Clinical Debridement Subcutaneous -Tissue Removed Subcutaneous -Post Debridement (cm) - Length 1.5 -Post Debridement (cm) - Width 1.2 -Post Debridement (cm) - Depth 1.2 -Total Square (Post) (cm) 1.80 -Area of Debridement (cm) - Length 1.5 -Area of Debridement (cm) - Width 1.2 -Total Square (Area) (cm) 1.80 -Tunneling No -Undermining/Tunneling No -Circular Undermining No -Wound/Ulcer Outcome Not Healed -Ulcer Cleansing Rinsed/ Irrigated with Saline -Foul Odor after Cleansing No -Bioengineered Tissue No -Bleeding Controlled with Pressure,Silver Nitrate -Treatment Response Procedure Tolerated Well -Debridement - Subq, 1st 20sq cm Yes Pain Scale: 0-10 Numeric Is Patient Pain Free? Yes - Nurse 3 - General Ulcer D/C NN Start: 07/24/23 15:09 Freq: Status: Active Protocol: Activity Type Activity Date Activity User E-sign Co-sign Detail Recorded Client Recorded Date Recorded By Document 07/24/23 15:53 KW k 07/24/23 15:53 KW 07/24/23 15:53 Wound Care Center Nurse 3 #9- L GROIN (POST VASCULAR PROCEDURE) -Primary Dressing Applied Mepilex Border, Promogran Jacqueline Matter -Mepilex Border 1 -Promogran Jacqueline Matter 1 Pain Scale: 0-10 Numeric Is Patient Pain Free? Yes - Visit Discharge Discharge Condition Stable Ambulatory Status Ambulatory Transportation Private Auto Accompanied by daughter Medication Reconcilliation completed & No provided to patient/care provider Clinical Summary of Care Provided Yes Assessment/Plan Assessment/Plan (1) Wound, surgical, nonhealing: CODE(S): T81.89XA - Other complications of procedures, not elsewhere classified, initial encounter QUALIFIERS: Encounter type: initial encounter Qualified Code(s): T81.89XA - Other complications of procedures, not elsewhere classified, initial encounter (2) Diabetes mellitus: CODE(S): E11.9 - Type 2 diabetes mellitus without complications QUALIFIERS: Diabetes mellitus type: type 2 Diabetes mellitus senior living insulin use: without senior living use Diabetes mellitus complication status: with circulatory complication Diabetes mellitus complication detail: with other circulatory complications Qualified Code(s): E11.59 - Type 2 diabetes mellitus with other circulatory complications (3) Coronary artery disease: CODE(S): I25.10 - Atherosclerotic heart disease of [place] coronary artery without angina pectoris (4) Peripheral arterial disease: CODE(S): I73.9 - Peripheral vascular disease, unspecified (5) Nicotine dependence: CODE(S): F17.200 - Nicotine dependence, unspecified, uncomplicated (6) Hypertension: CODE(S): I10 - Essential (primary) hypertension QUALIFIERS: Hypertension type: primary hypertension Qualified Code(s): I10 - Essential (primary) hypertension PLAN: Plan Patient evaluated at the wound healing center today. Wound is looking much better. Wound bed is nice beefy pink color, bleeds well with debridement. Wound care - Jacqueline covered gauze/ABD after washing area with soap and water daily. Stressed importance of keep this area covered with a dressing. Encouraged patient to stop smoking as it may have deleterious effects on wound healing. Follow up two weeks.
[2023-08-07 15:10] VITALS: BP 192/54; PULSE 66; RESP 16; TEMP 36.2
--- NOTE | 2023-08-07 16:11 | PCM.WC.PN ---
History of Present Illness Date of Service: 08/07/23 Chief Complaint: Nonhealing ulcer left groin after LLE angio History of Wound: 57 year old male who is known to me for his significant history for hidradenitis. He recently had a left lower leg atherectomy/angioplasty/stent SFA, angioplasty PT, and left femoral endarterectomy with patch by Dr. Jeffries, vascular surgeon. He developed dehiscence of the left groin incision. He was treated with empirically with Cipro and Flagyl. He initially had a wound VAC which was removed. He states that he has not been keeping this area covered consistently. He has a medical history of DM type II, uncontrolled HTN, CAD, arterial insufficiency, and smoker. He is recently has lost his vision which they believe has been from a stroke. He comes in today for further evaluation of this left groin. Today he denies any fever, chills, nausea or vomiting. Progress of Wound: Left groin wound is beefy pink, smaller in size, almost healed. His blood pressure is elevated today 190's over 50's. He is not symptomatic at this moment. He was instructed to call his PCP to notify her that his BP was elevated. Objective Data Objective Data Vital Signs: Vital Signs Temp Pulse Resp BP O2 Del Method 97.2 F L 66 16 192/54 H Room Air 08/07/23 15:10 08/07/23 15:10 08/07/23 15:10 08/07/23 15:10 08/07/23 15:10 Oxygen Delivery Method Room Air Charges/Coding Procedures Integumentary 111xxx-113xx: [id number] Ayla subq tissue 20 sq cm/< Debridement Note Debridement Note Wound debrided: Groin Laterality: Left Wound Grade/Stage: Grade 3 Type of Debridement: Excisional debridement Anesthesia Used: 5% Lidocaine Gel Depth: Down to and including healthy tissue and in the subcutaneous layer Percentage of wound debrided: 100 Instrument Used: 3mm curette Tissue Removed: Non viable tissue and slough Severity: Fat Layer Exposed Amount of bleeding with debridement: Mild Bleeding Controlled with: Compression and gauze and Silver Nitrate (due to the hypergranulation ) Patient tolerated procedure: Patient tolerated procedure well Post-Debridement Measurements and Additional Note: Post-Debridement Measurements/Treatment BEKA - Nurse 1 - General Ulcer Assessment Start: 07/24/23 15:09 Freq: Status: Active Protocol: ROC Activity Type Activity Date Activity User E-sign Co-sign Detail Recorded Client Recorded Date Recorded By Document 07/24/23 15:10 [facility] 1605-11-20 07/24/23 15:14 [facility] Document 08/07/23 15:10 [facility] [id number] 08/07/23 15:15 BM 07/24/23 08/07/23 15:10 15:10 - Today's Visit Information Type of service Follow-up Visit Follow-up Visit (Physician/ROCK WORKER (Physician/ROCK WORKER ) ) Arrival Mode Ambulatory Ambulatory Transfer Assistance None None Patient Identification Verified (Name & Yes Yes ) Patient Requires Transmission-Based No No Precautions Vital Signs Temperature (97.8 F-99.1 F) 96.4 F L 97.2 F L Temperature Source Temporal Temporal Pulse Rate (60-100) 70 66 Pulse Location Monitor Monitor Respiratory Rate (12-18) 16 16 Respiratory rate source Observation Observation Oxygen Delivery Method Room Air Room Air Blood Pressure (90/60-120/80) 170/56 H 192/54 H Blood Pressure Mean (mm Hg) 94 100 Source Monitor Monitor Position Sitting Sitting Blood Pressure Location Left Arm Left Arm History Since Last Visit- (Skip if this is Patient's initial visit) Have you changed medications since your No No last visit? Any new allergies or adverse reactions No No Had a fall/change in ADL's that may Yes No increase risk of falls Signs or symptoms of abuse and/or No No neglect since last visit Have you been in the hospital since your No No last visit? Has dressing in place as prescribed No Yes Has compression in place as prescribed N/A N/A Has offloadiing in place as prescribed N/A N/A Experienced any changes in pain level or No No management Left Footwear Regular Shoe Regular Shoe Right Footwear Regular Shoe Regular Shoe Pain Scale: 0-10 Numeric Is Patient Pain Free? Yes Yes - Nurse 1 - General Ulcer Measurement Start: 07/24/23 15:09 Freq: Status: Active Protocol: Activity Type Activity Date Activity User E-sign Co-sign Detail Recorded Client Recorded Date Recorded By Document 07/24/23 15:10 [facility] 1605-11-20 07/24/23 15:14 [facility] Document 08/07/23 15:10 [facility] [id number] 08/07/23 15:15 [facility] 07/24/23 08/07/23 15:10 15:10 Wound Center Nurse 1 #9- L GROIN (POST VASCULAR PROCEDURE) -Combined with other wound No -Current Size (cm) - Length 1 0.7 -Current Size (cm) - Width 1 0.5 -Current Size (cm) - Depth 0 0.1 -Total Square Cm 1 0.35 -Date of Last Picture (Recall this 07/24/23 08/07/23 field) -Photo Taken Yes -Epithelialization Medium 34-66% -Tunneling No -Undermining/Tunneling No -Circular Undermining No -Exudate Amt Small -Exudate Type Sanguineous -Wound Margin Distinct, Distinct, Outline Outline Attached Attached -Granulation Amt Large (67-100%) Large (67-100%) -Granulation Quality Hyper- Red granulation,Red -Slough/Fibrin No -Necrosis Amt None Present (0 %) -Texture ([place]imbola-wound Skin Appearance) Assessed, Assessed, Scarring Scarring -Moisture ([place]-wound Skin Appearance) Assessed Assessed -Color ([place]-wound Skin Appearance) Assessed Assessed -Temperature ([place]-wound Skin No Abnormality Appearance) (Pt Warm) -Tenderness on Palpation ([place]-wound No Skin Appearance) -Ulcer Cleansing Rinsed/ Irrigated with Saline -Foul Odor after Cleansing No -Anesthetic Used 5% Lidocaine Gel - Nurse 2 - General Ulcer CM Notes Start: 07/24/23 15:09 Freq: Status: Active Protocol: Activity Type Activity Date Activity User E-sign Co-sign Detail Recorded Client Recorded Date Recorded By Document 07/24/23 15:45 GM 07/24/23 15:47 GM Edit Result 07/24/23 15:45 GM (1) 07/24/23 15:47 GM Document 08/07/23 15:33 GM 08/07/23 15:33 GM (1) #9- L GROIN (POST VASCULAR PROCEDURE) - Bleeding Controlled with Pressure => Pressure,Silver => Nitrate 07/24/23 08/07/23 15:45 15:33 Wound Center Nurse 2 #9- L GROIN (POST VASCULAR PROCEDURE) -Time 15:45 15:33 -Correct Patient Yes Yes -Correct Side, Site, Position Yes Yes -Correct Procedure Yes Yes -Procedure Performed Yes Yes -Type of Procedure Debridement Debridement -Clinical Debridement Subcutaneous Subcutaneous -Tissue Removed Subcutaneous Subcutaneous -Post Debridement (cm) - Length 1.5 0.6 -Post Debridement (cm) - Width 1.2 0.5 -Post Debridement (cm) - Depth 1.2 0.1 -Total Square (Post) (cm) 1.80 0.30 -Area of Debridement (cm) - Length 1.5 0.6 -Area of Debridement (cm) - Width 1.2 0.5 -Total Square (Area) (cm) 1.80 0.30 -Tunneling No No -Undermining/Tunneling No No -Circular Undermining No No -Wound/Ulcer Outcome Not Healed Not Healed -Ulcer Cleansing Rinsed/ Rinsed/ Irrigated with Irrigated with Saline Saline -Foul Odor after Cleansing No -Bioengineered Tissue No No -Bleeding Controlled with Pressure,Silver Pressure Nitrate -Treatment Response Procedure Procedure Tolerated Well Tolerated Well -Debridement - Subq, 1st 20sq cm Yes Yes Pain Scale: 0-10 Numeric Is Patient Pain Free? Yes Yes - Nurse 3 - General Ulcer D/C NN Start: 07/24/23 15:09 Freq: Status: Active Protocol: Activity Type Activity Date Activity User E-sign Co-sign Detail Recorded Client Recorded Date Recorded By Document 07/24/23 15:53 KW k 07/24/23 15:53 KW Document 08/07/23 15:40 RB wound 08/07/23 15:41 RB 07/24/23 08/07/23 15:53 15:40 Wound Care Center Nurse 3 #9- L GROIN (POST VASCULAR PROCEDURE) -Ulcer Cleansing Wound Cleanser -Primary Dressing Applied Mepilex Border, Mepilex Border, Promogran Promogran Jacqueline Matter Jacqueline Matter -Mepilex Border 1 1 -Promogran Jacqueline Matter 1 1 -Wound Comment(s) assisted wit h dressing application per [facility] [place] Treatment Response Procedure Tolerated Well Pain Scale: 0-10 Numeric Is Patient Pain Free? Yes Yes - Visit Discharge Discharge Condition Stable Stable Ambulatory Status Ambulatory Ambulatory Transportation Private Auto Private Auto Accompanied by daughter Medication Reconcilliation completed & No No provided to patient/care provider Clinical Summary of Care Provided Yes Yes Assessment/Plan Assessment/Plan (1) Wound, surgical, nonhealing: CODE(S): T81.89XA - Other complications of procedures, not elsewhere classified, initial encounter QUALIFIERS: Encounter type: initial encounter Qualified Code(s): T81.89XA - Other complications of procedures, not elsewhere classified, initial encounter (2) Diabetes mellitus: CODE(S): E11.9 - Type 2 diabetes mellitus without complications QUALIFIERS: Diabetes mellitus type: type 2 Diabetes mellitus fdc insulin use: without long term care pharmacist use Diabetes mellitus complication status: with circulatory complication Diabetes mellitus complication detail: with other circulatory complications Qualified Code(s): E11.59 - Type 2 diabetes mellitus with other circulatory complications (3) Coronary artery disease: CODE(S): I25.10 - Atherosclerotic heart disease of [place] coronary artery without angina pectoris (4) Peripheral arterial disease: CODE(S): I73.9 - Peripheral vascular disease, unspecified (5) Nicotine dependence: CODE(S): F17.200 - Nicotine dependence, unspecified, uncomplicated (6) Hypertension: CODE(S): I10 - Essential (primary) hypertension QUALIFIERS: Hypertension type: primary hypertension Qualified Code(s): I10 - Essential (primary) hypertension PLAN: Plan Patient evaluated at the wound healing center today. Wound is looking much better. Wound bed is nice beefy pink color, bleeds well with debridement. Wound care - Moistened Jacqueline covered gauze/ABD after washing area with soap and water daily. Stressed importance of keep this area covered with a dressing. Encouraged patient to stop smoking as it may have deleterious effects on wound healing. Follow up two weeks.
--- NOTE | 2023-08-14 10:18 | WC ---
PHOTO 08/07/2023 LEFT DELMY
== END 2023-08-11 23:59 | disposition home or self-care (01) ==
LOC: WC 15:00
PROVIDERS: PCP Nurse Practitioner; Referring Provider Physician Assistant; Visit Provider Nurse Practitioner Family
DX: E11.622 Type 2 diabetes mellitus with other skin ulcer (principal); L98.492 Non-pressure chronic ulcer of skin of other sites with fat layer exposed; J44.9 Chronic obstructive pulmonary disease, unspecified; E11.51 Type 2 diabetes mellitus with diabetic peripheral angiopathy without gangrene; I12.9 Hypertensive chronic kidney disease with stage 1 through stage 4 chronic kidney disease, or unspecified chronic kidney disease; I25.10 Atherosclerotic heart disease of native coronary artery without angina pectoris; N18.9 Chronic kidney disease, unspecified; L73.2 Hidradenitis suppurativa; F17.200 Nicotine dependence, unspecified, uncomplicated
CPT/HCPCS: 11042

== ENCOUNTER 2023-08-09 13:52 | Outpatient (CLI) | payer MEDICARE, BC, SELFPAY ==
[2023-08-09 14:02] VITALS: BP 181/69; PULSE 63; RESP 16; TEMP 36.6; O2SAT 100; BMI 23.2
[2023-08-09] MEDS: Epoetin Alfa-EPBX 20,000 unit/ml 20000 UNIT SC (14:12)
== END 2023-08-09 23:59 | disposition home or self-care (01) ==
LOC: MEDOUTP 13:52
PROVIDERS: PCP Nurse Practitioner; Referring Provider Nurse Practitioner; Visit Provider Nurse Practitioner
DX: N18.4 Chronic kidney disease, stage 4 (severe) (principal); D63.1 Anemia in chronic kidney disease
CPT/HCPCS: 96372; Q5106

== ENCOUNTER 2023-08-12 15:29 | Outpatient (CLI) | payer MEDICARE, BC, SELFPAY ==
[2023-08-12] MEDS: Epoetin Alfa-EPBX 20,000 unit/ml 20000 UNIT SC (15:46)
[2023-08-12 15:49] VITALS: BP 183/72; PULSE 72; RESP 16; TEMP 36.4; O2SAT 100
== END 2023-08-12 23:59 | disposition home or self-care (01) ==
LOC: MEDOUTP 15:30
PROVIDERS: PCP Nurse Practitioner; Referring Provider Nurse Practitioner; Visit Provider Nurse Practitioner
DX: D63.1 Anemia in chronic kidney disease (principal)
CPT/HCPCS: 96372; Q5106

== ENCOUNTER 2023-08-14 14:34 | Outpatient (CLI) | payer MEDICARE, BC, SELFPAY ==
[2023-08-14 14:42] VITALS: BP 148/70; PULSE 66; RESP 16; TEMP 36; O2SAT 99; BMI 23.2
[2023-08-14] MEDS: Epoetin Alfa-EPBX 20,000 unit/ml 20000 UNIT SC (14:52)
[2023-08-14 15:15] LABS: Basophil# 0.13 X10^3/uL; Eosinophil# 0.16 X10^3/uL; Eosinophils% 1.2 % (0-5); Hematocrit 30.9 % (40-54); Lymphocyte % 16.8 % (19-41); Mean Corp Hgb Conc 29.1 g/dL (32-36); Mean Corpuscular Hgb 22.7 pg (27.0-32.0); Mean Corpuscular Volume 77.8 fL (80-94); Mean Platelet Vol. 8.3 fl (6.2-12.0); Monocyte# 0.93 X10^3/uL; Monocyte% 6.8 % (0-10); NRBC Flagged by Analyzer 0 % (0-5); Neutrophil # 10.03 X10^3/uL (2.7-7.7); Neutrophil % 73.5 % (47-70); Platelet Count 433 K/mm3 (150-450); RBC Distribution Width CV 15.9 % (11.6-14.6); RBC Distribution Width SD 44.6 fl (35.1-43.9); Red Blood Count 3.97 M/mm3 (4.6-6.2); White Blood Count 13.7 K/mm3 (4.4-11.0)
[2023-08-14 15:40] LABS: Anion Gap 7 (5-15); BUN 17 mg/dL (7-18); BUN/Creat Ratio 6.7 RATIO (10-20); Calcium,Total 8.2 mg/dL (8.5-10.1); Chloride 104 mmol/L (98-107); Creatinine, Serum 2.52 mg/dL (0.70-1.30); EST Glomerular Filtration Rate 28 mL/min (>60); Est Glom Filt Rate - Afr Amer 34 mL/min (>60); Estimated Creatinine Clearance 30.16 ml/min; Glucose 83 mg/dL (74-106); Potassium 4.4 mmol/L (3.5-5.1); Sodium Level 134 mmol/L (136-145)
== END 2023-08-14 23:59 | disposition home or self-care (01) ==
LOC: MEDOUTP 14:34
PROVIDERS: PCP Nurse Practitioner; Referring Provider Nurse Practitioner; Visit Provider Nurse Practitioner
DX: N18.4 Chronic kidney disease, stage 4 (severe) (principal); D63.1 Anemia in chronic kidney disease
CPT/HCPCS: 36415; 80048; 85025; 96372; Q5106

== ENCOUNTER 2023-08-16 13:33 | Outpatient (CLI) | payer MEDICARE, BC, SELFPAY ==
[2023-08-16 13:44] VITALS: BP 139/61; PULSE 67; RESP 16; TEMP 35.9; O2SAT 99; BMI 23.2
[2023-08-16] MEDS: Epoetin Alfa-EPBX 20,000 unit/ml 20000 UNIT SC (13:50)
== END 2023-08-16 23:59 | disposition home or self-care (01) ==
LOC: MEDOUTP 13:33
PROVIDERS: PCP Nurse Practitioner; Referring Provider Nurse Practitioner; Visit Provider Nurse Practitioner
DX: N18.4 Chronic kidney disease, stage 4 (severe) (principal); D63.1 Anemia in chronic kidney disease
CPT/HCPCS: 96372; Q5106

== ENCOUNTER 2023-08-19 11:31 | Outpatient (CLI) | payer MEDICARE, BC, SELFPAY ==
[2023-08-19 11:45] VITALS: BP 129/53; PULSE 77; RESP 16; TEMP 36.2; O2SAT 100; BMI 22.0
[2023-08-19] MEDS: Epoetin Alfa-EPBX 20,000 unit/ml 20000 UNIT SC (11:58)
== END 2023-08-19 23:59 | disposition home or self-care (01) ==
LOC: MEDOUTP 11:31
PROVIDERS: PCP Nurse Practitioner; Referring Provider Nurse Practitioner; Visit Provider Nurse Practitioner
DX: N18.4 Chronic kidney disease, stage 4 (severe) (principal); D63.1 Anemia in chronic kidney disease; E78.5 Hyperlipidemia, unspecified; R42 Dizziness and giddiness; R55 Syncope and collapse; F17.200 Nicotine dependence, unspecified, uncomplicated; I73.9 Peripheral vascular disease, unspecified; I25.10 Atherosclerotic heart disease of native coronary artery without angina pectoris
CPT/HCPCS: 93880; 96372; Q5106

== ENCOUNTER → 2023-08-19 | Outpatient (CLI) | payer MEDICARE, BC, SELFPAY ==
--- NOTE | 2023-08-19 10:56 | CDU_ITS ---
Reason For Study: Lightheadedness, Near Syncope Rt. Velocities/BP Lt. Velocities/BP Prox CCA 86/11 cm/sec. Prox CCA 124/21 cm/sec. Mid CCA 110/18 cm/sec. Mid CCA 113/18 cm/sec. Dist CCA 76/14 cm/sec. Dist CCA 78/17 cm/sec. Prox ICA 117/20 cm/sec. Prox ICA 114/27 cm/sec. Mid ICA 124/35 cm/sec. Mid ICA 145/34 cm/sec. Dist ICA 95/27 cm/sec. Dist ICA 113/27 cm/sec. Rt. ICA/CCA = 1.1. Lt. ICA/CCA = 1.3. Prox ECA 114/9 cm/sec. Prox ECA 129/8 cm/sec. Rt. Vert. 64/16 cm/sec. Lt. Vert. 31/14 cm/sec. Right Extracranial There is heterogeneous, irregular atherosclerotic plaque noted in the right common carotid artery. There is heterogeneous, irregular atherosclerotic plaque noted in the right internal carotid artery. There is no significant atherosclerotic plaque noted in the right external carotid artery. Antegrade flow is noted in the right vertebral artery. Left Extracranial There is heterogeneous, irregular atherosclerotic plaque noted in the left common carotid artery. There is heterogeneous, irregular atherosclerotic plaque noted in the left internal carotid artery. There is no significant atherosclerotic plaque noted in the left external carotid artery. No flow noted Lt Vert A. Procedure Carotid Duplex [id number]. This is a Carotid Duplex examination using B-mode, color flow and specral Doppler. Exam performed in department. VL/Carotid Duplex Ultrasound Interpretation Summary Mild (<50%) stenosis right extracranial internal carotid. Moderate (50-69%) stenosis left extracranial internal carotid. Patent and antegrade vertebrals bilaterally. Ordering Physician: Roderick Bonilla Referring Physician: Adina Bhat Performed By: Crystal Gaines, CONTRERAS, RVT
== END | disposition home or self-care (01) ==
LOC: CVS 10:52
PROVIDERS: PCP Nurse Practitioner; Referring Provider Internal Medicine Cardiovascular Disease; Visit Provider Internal Medicine Cardiovascular Disease
DX: R42 Dizziness and giddiness (principal); R55 Syncope and collapse; F17.200 Nicotine dependence, unspecified, uncomplicated; I73.9 Peripheral vascular disease, unspecified; I25.10 Atherosclerotic heart disease of native coronary artery without angina pectoris
CPT/HCPCS: 93880

== ENCOUNTER 2023-08-21 14:34 | Outpatient (CLI) | payer MEDICARE, BC, SELFPAY ==
[2023-08-21 14:45] VITALS: BP 154/61; PULSE 64; RESP 16; TEMP 36.4; O2SAT 100
[2023-08-21] MEDS: Epoetin Alfa-EPBX 20,000 unit/ml 20000 UNIT SC (15:10)
== END 2023-08-21 23:59 | disposition home or self-care (01) ==
LOC: MEDOUTP 14:34
PROVIDERS: PCP Nurse Practitioner; Referring Provider Nurse Practitioner; Visit Provider Nurse Practitioner
DX: N18.4 Chronic kidney disease, stage 4 (severe) (principal); D63.1 Anemia in chronic kidney disease
CPT/HCPCS: 96372; Q5106

== ENCOUNTER 2023-08-21 15:13 | Outpatient (RCR) | payer MEDICARE, BC, SELFPAY ==
[2023-08-12 00:46] VITALS: BP 170/44; PULSE 60; RESP 18; TEMP 36.3
[2023-08-21 15:23] VITALS: BP 175/43; PULSE 63; RESP 16; TEMP 36.3
--- NOTE | 2023-08-21 16:08 | PCM.WC.PN ---
History of Present Illness Date of Service: 08/21/23 Chief Complaint: Nonhealing ulcer left groin after LLE angio History of Wound: 57 year old male who is known to me for his significant history for hidradenitis. He recently had a left lower leg atherectomy/angioplasty/stent SFA, angioplasty PT, and left femoral endarterectomy with patch by Dr. Jeffries, vascular surgeon. He developed dehiscence of the left groin incision. He was treated with empirically with Cipro and Flagyl. He initially had a wound VAC which was removed. He states that he has not been keeping this area covered consistently. He has a medical history of DM type II, uncontrolled HTN, CAD, arterial insufficiency, and smoker. He is recently has lost his vision which they believe has been from a stroke. He comes in today for further evaluation of this left groin. Today he denies any fever, chills, nausea or vomiting. Progress of Wound: Left groin wound is healed today. Objective Data Objective Data Vital Signs: Vital Signs Temp Pulse Resp BP O2 Del Method 97.3 F L 63 16 175/43 H Room Air 08/21/23 15:23 08/21/23 15:23 08/21/23 15:23 08/21/23 15:23 08/21/23 15:23 Oxygen Delivery Method Room Air Charges/Coding Visit Charges Office Visits / Consults: 40540 OV L3 Est 20min Physical Exam Const alert, oriented x3 and no apparent distress General Appearance: cooperative Orientation / Consciousness: awake HEENT normocephalic Head and Scalp: atraumatic Eyes PERRL Neck full ROM Lymph Lymphatic: no lymphedema noted Resp normal respiratory effort, normal air movement and clear to auscultation bilaterally Effort and Inspection: able to speak in complete sentences Cardio regular rate and regular rhythm GI soft to palpation Back/Spine normal ROM Extremity full ROM Extremity Narrative: Left lower extremity is pink. Good capillary refills in his toes. Unable to palpate dorsalis pedis. Skin Wound Narrative: Left groin wound is healed today. Neuro oriented x3 Psych mental status grossly normal and thought process normal Debridement Note Debridement Note Post-Debridement Measurements and Additional Note: Post-Debridement Measurements/Treatment BEKA - Nurse 1 - General Ulcer Assessment Start: 08/21/23 15:21 Freq: Status: Active Protocol: ROC Activity Type Activity Date Activity User E-sign Co-sign Detail Recorded Client Recorded Date Recorded By Document 08/21/23 15:23 [facility] ..25.7 08/21/23 15:27 [facility] 08/21/23 15:23 - Today's Visit Information Type of service Follow-up Visit (Physician/SECURITY INTELLIGENCE ANALYST ) Arrival Mode Ambulatory Transfer Assistance None Patient Identification Verified (Name & Yes ) Patient Requires Transmission-Based No Precautions Vital Signs Temperature (97.8 F-99.1 F) 97.3 F L Temperature Source Temporal Pulse Rate (60-100) 63 Pulse Location Monitor Respiratory Rate (12-18) 16 Respiratory rate source Observation Oxygen Delivery Method Room Air Blood Pressure (90/60-120/80) 175/43 H Blood Pressure Mean (mm Hg) 87 Source Monitor History Since Last Visit- (Skip if this is Patient's initial visit) Have you changed medications since your No last visit? Any new allergies or adverse reactions No Had a fall/change in ADL's that may No increase risk of falls Signs or symptoms of abuse and/or No neglect since last visit Have you been in the hospital since your No last visit? Has dressing in place as prescribed Yes Has compression in place as prescribed N/A Has offloadiing in place as prescribed N/A Experienced any changes in pain level or No management Left Footwear Regular Shoe Right Footwear Regular Shoe Pain Scale: 0-10 Numeric Is Patient Pain Free? Yes - Nurse 1 - General Ulcer Measurement Start: 08/21/23 15:21 Freq: Status: Active Protocol: Activity Type Activity Date Activity User E-sign Co-sign Detail Recorded Client Recorded Date Recorded By Document 08/21/23 15:23 [facility] [id number] 08/21/23 15:27 [facility] 08/21/23 15:23 Wound Center Nurse 1 #9- L GROIN (POST VASCULAR PROCEDURE) -Combined with other wound No -Current Size (cm) - Length 0.1 -Current Size (cm) - Width 0.1 -Current Size (cm) - Depth 0.1 -Total Square Cm 0.01 -Date of Last Picture (Recall this 08/21/23 field) -Photo Taken Yes -Epithelialization Large 67-100% -Texture ([place]-wound Skin Appearance) Assessed, Scarring -Moisture ([place]-wound Skin Appearance) Assessed -Color ([place]-wound Skin Appearance) Assessed -Temperature ([place]-wound Skin No Abnormality Appearance) (Pt Warm) -Tenderness on Palpation ([place]-wound No Skin Appearance) -Ulcer Cleansing Rinsed/ Irrigated with Saline -Foul Odor after Cleansing No -Anesthetic Used 5% Lidocaine Gel - Nurse 2 - General Ulcer CM Notes Start: 08/21/23 15:21 Freq: Status: Active Protocol: Activity Type Activity Date Activity User E-sign Co-sign Detail Recorded Client Recorded Date Recorded By Document 08/21/23 15:36 [facility] 08/21/23 15:37 08/21/23 15:36 Wound Center Nurse 2 -Time 15:36 -Correct Patient Yes -Correct Side, Site, Position Yes -Wound/Ulcer Outcome Healed- Epithelialized Pain Scale: 0-10 Numeric Is Patient Pain Free? Yes - Nurse 3 - General Ulcer D/C NN Start: 08/21/23 15:21 Freq: Status: Active Protocol: Activity Type Activity Date Activity User E-sign Co-sign Detail Recorded Client Recorded Date Recorded By Document 08/21/23 15:37 [facility] 08/21/23 15:38 08/21/23 15:37 Wound Care Center Nurse 3 #9- L GROIN (POST VASCULAR PROCEDURE) -Ulcer Cleansing Not Cleansed -Foul Odor after Cleansing No -Wound Comment(s) wound healed Pain Scale: 0-10 Numeric Is Patient Pain Free? Yes - Visit Discharge Discharge Condition Stable Ambulatory Status Ambulatory Transportation Private Auto Clinical Summary of Care Provided Yes Assessment/Plan Assessment/Plan (1) Wound, surgical, nonhealing: CODE(S): T81.89XA - Other complications of procedures, not elsewhere classified, initial encounter QUALIFIERS: Encounter type: initial encounter Qualified Code(s): T81.89XA - Other complications of procedures, not elsewhere classified, initial encounter (2) Diabetes mellitus: CODE(S): E11.9 - Type 2 diabetes mellitus without complications QUALIFIERS: Diabetes mellitus type: type 2 Diabetes mellitus intermediate teacher insulin use: without halfway use Diabetes mellitus complication status: with circulatory complication Diabetes mellitus complication detail: with other circulatory complications Qualified Code(s): E11.59 - Type 2 diabetes mellitus with other circulatory complications (3) Coronary artery disease: CODE(S): I25.10 - Atherosclerotic heart disease of [place] coronary artery without angina pectoris (4) Peripheral arterial disease: CODE(S): I73.9 - Peripheral vascular disease, unspecified (5) Nicotine dependence: CODE(S): F17.200 - Nicotine dependence, unspecified, uncomplicated (6) Hypertension: CODE(S): I10 - Essential (primary) hypertension QUALIFIERS: Hypertension type: primary hypertension Qualified Code(s): I10 - Essential (primary) hypertension PLAN: Plan Patient evaluated at the wound healing center today. Wound is healed today. Instructed to massage lotion into the left groin scar tissue to help soften the scarring. Encouraged patient to stop smoking as it may have deleterious effects on wound healing. Follow up as needed.
== END 2023-09-11 23:59 | disposition home or self-care (01) ==
LOC: WC 15:13
PROVIDERS: PCP Nurse Practitioner; Referring Provider Physician Assistant; Visit Provider Nurse Practitioner Family
DX: Z09 Encounter for follow-up examination after completed treatment for conditions other than malignant neoplasm (principal); L98.492 Non-pressure chronic ulcer of skin of other sites with fat layer exposed; E11.51 Type 2 diabetes mellitus with diabetic peripheral angiopathy without gangrene; I69.398 Other sequelae of cerebral infarction; I25.10 Atherosclerotic heart disease of native coronary artery without angina pectoris; I10 Essential (primary) hypertension; L73.2 Hidradenitis suppurativa; H54.7 Unspecified visual loss; T81.31XA Disruption of external operation (surgical) wound, not elsewhere classified, initial encounter; Y84.9 Medical procedure, unspecified as the cause of abnormal reaction of the patient, or of later complication, without mention of misadventure at the time of the procedure
CPT/HCPCS: 99213; G0463

== ENCOUNTER 2023-08-23 13:40 | Outpatient (CLI) | payer MEDICARE, BC, SELFPAY ==
[2023-08-23] MEDS: Epoetin Alfa-EPBX 20,000 unit/ml 20000 UNIT SC (13:53)
[2023-08-23 13:55] VITALS: BP 138/78; PULSE 65; RESP 16; TEMP 36.6; O2SAT 99
== END 2023-08-23 23:59 | disposition home or self-care (01) ==
LOC: MEDOUTP 13:42
PROVIDERS: PCP Nurse Practitioner; Referring Provider Nurse Practitioner; Visit Provider Nurse Practitioner
DX: N18.4 Chronic kidney disease, stage 4 (severe) (principal); D63.1 Anemia in chronic kidney disease
CPT/HCPCS: 96372; Q5106

== ENCOUNTER 2023-08-26 13:50 | Outpatient (CLI) | payer MEDICARE, BC, SELFPAY ==
[2023-08-26 14:08] VITALS: BP 162/78; PULSE 62; RESP 16; TEMP 36.6; O2SAT 100; BMI 22.0
[2023-08-26] MEDS: Epoetin Alfa-EPBX 20,000 unit/ml 20000 UNIT SC (14:14)
== END 2023-08-26 23:59 | disposition home or self-care (01) ==
LOC: MEDOUTP 13:50
PROVIDERS: PCP Nurse Practitioner; Referring Provider Nurse Practitioner; Visit Provider Nurse Practitioner
DX: N18.31 Chronic kidney disease, stage 3a (principal); D63.1 Anemia in chronic kidney disease
CPT/HCPCS: 96372; Q5106

== ENCOUNTER 2023-08-28 13:52 | Outpatient (CLI) | payer MEDICARE, BC, SELFPAY ==
[2023-08-28 14:05] LABS: Absolute Lymphocyte Count 2.42 X10^3/uL (0.83-4.51); Absolute Neutrophil Count 7.9 X10^3/uL (2.0-7.7); Basophil% 0.9 % (0-1); Eosinophil# 0.19 X10^3/uL; Eosinophils% 1.6 % (0-5); Hematocrit 33.2 % (40-54); Hemoglobin 9.3 g/dL (13.0-16.5); Lymphocyte # 2.42 X10^3/ul (0.83-4.51); Mean Corpuscular Hgb 20.9 pg (27.0-32.0); Mean Corpuscular Volume 74.6 fL (80-94); Mean Platelet Vol. 7.9 fl (6.2-12.0); Monocyte# 0.89 X10^3/uL; Monocyte% 7.7 % (0-10); NRBC Flagged by Analyzer 0 % (0-5); Neutrophil # 7.86 X10^3/uL (2.7-7.7); Neutrophil % 68.2 % (47-70); Platelet Count 564 K/mm3 (150-450); RBC Distribution Width CV 16.7 % (11.6-14.6); RBC Distribution Width SD 45.1 fl (35.1-43.9); Red Blood Count 4.45 M/mm3 (4.6-6.2); White Blood Count 11.5 K/mm3 (4.4-11.0)
[2023-08-28 14:22] LABS: Anion Gap 7 (5-15); BUN 14 mg/dL (7-18); BUN/Creat Ratio 5.8 RATIO (10-20); Calcium,Total 8.3 mg/dL (8.5-10.1); Chloride 104 mmol/L (98-107); Creatinine, Serum 2.41 mg/dL (0.70-1.30); EST Glomerular Filtration Rate 29 mL/min (>60); Est Glom Filt Rate - Afr Amer 36 mL/min (>60); Glucose 136 mg/dL (74-106); Potassium 4.4 mmol/L (3.5-5.1); Sodium Level 135 mmol/L (136-145)
[2023-08-28] MEDS: Epoetin Alfa-EPBX 20,000 unit/ml 20000 UNIT SC (14:25)
[2023-08-28 14:50] VITALS: BP 154/58; PULSE 58; RESP 16; TEMP 36.4; O2SAT 100; BMI 22.0
== END 2023-08-28 23:59 | disposition home or self-care (01) ==
LOC: MEDOUTP 13:52
PROVIDERS: PCP Nurse Practitioner; Referring Provider Nurse Practitioner; Visit Provider Nurse Practitioner
DX: N18.4 Chronic kidney disease, stage 4 (severe) (principal); D63.1 Anemia in chronic kidney disease
CPT/HCPCS: 36415; 80048; 85025; 96372; Q5106

== ENCOUNTER 2023-08-30 13:55 | Outpatient (CLI) | payer MEDICARE, BC, SELFPAY ==
[2023-08-30 14:02] VITALS: BP 161/69; PULSE 59; RESP 16; TEMP 35.6
[2023-08-30] MEDS: Epoetin Alfa-EPBX 20,000 unit/ml 20000 UNIT SC (14:13)
== END 2023-08-30 23:59 | disposition home or self-care (01) ==
LOC: MEDOUTP 13:55
PROVIDERS: PCP Nurse Practitioner; Referring Provider Nurse Practitioner; Visit Provider Nurse Practitioner
DX: N18.4 Chronic kidney disease, stage 4 (severe) (principal); D63.1 Anemia in chronic kidney disease
CPT/HCPCS: 96372; Q5106

== ENCOUNTER 2023-09-02 13:38 | Outpatient (CLI) | payer MEDICARE, BC, SELFPAY ==
[2023-09-02 13:50] VITALS: BP 179/64; PULSE 65; RESP 16; TEMP 36.6; O2SAT 99; BMI 22.3
[2023-09-02] MEDS: Epoetin Alfa-EPBX 20,000 unit/ml 20000 UNIT SC (14:06)
== END 2023-09-02 23:59 | disposition home or self-care (01) ==
LOC: MEDOUTP 13:38
PROVIDERS: PCP Nurse Practitioner; Referring Provider Nurse Practitioner; Visit Provider Nurse Practitioner
DX: N18.4 Chronic kidney disease, stage 4 (severe) (principal); D63.1 Anemia in chronic kidney disease
CPT/HCPCS: 96372; Q5106

== ENCOUNTER 2023-09-04 14:21 | Outpatient (CLI) | payer MEDICARE, BC, SELFPAY ==
[2023-09-04 14:33] VITALS: PULSE 61; RESP 16; TEMP 36.8; O2SAT 100
[2023-09-04] MEDS: Epoetin Alfa-EPBX 20,000 unit/ml 20000 UNIT SC (14:37)
== END 2023-09-04 23:59 | disposition home or self-care (01) ==
LOC: MEDOUTP 14:22
PROVIDERS: PCP Nurse Practitioner; Referring Provider Nurse Practitioner; Visit Provider Nurse Practitioner
DX: N18.4 Chronic kidney disease, stage 4 (severe) (principal); D63.1 Anemia in chronic kidney disease
CPT/HCPCS: Q5106

== ENCOUNTER 2023-09-06 13:43 | Outpatient (CLI) | payer MEDICARE, BC, SELFPAY ==
[2023-09-06 14:02] VITALS: BP 131/55; PULSE 58; RESP 16; TEMP 36.1
[2023-09-06] MEDS: Epoetin Alfa-EPBX 20,000 unit/ml 20000 UNIT SC (14:05)
== END 2023-09-06 23:59 | disposition home or self-care (01) ==
LOC: MEDOUTP 13:43
PROVIDERS: PCP Nurse Practitioner; Referring Provider Nurse Practitioner; Visit Provider Nurse Practitioner
DX: N18.4 Chronic kidney disease, stage 4 (severe) (principal); D63.1 Anemia in chronic kidney disease
CPT/HCPCS: 96372; Q5106

== ENCOUNTER 2023-09-09 14:03 | Outpatient (CLI) | payer MEDICARE, BC, SELFPAY ==
[2023-09-09 14:14] VITALS: BP 171/63; PULSE 67; RESP 16; TEMP 35.9; O2SAT 98
[2023-09-09] MEDS: Epoetin Alfa-EPBX 20,000 unit/ml 20000 UNIT SC (14:16)
== END 2023-09-09 23:59 | disposition home or self-care (01) ==
LOC: MEDOUTP 14:04
PROVIDERS: PCP Nurse Practitioner; Referring Provider Nurse Practitioner; Visit Provider Nurse Practitioner
DX: N18.4 Chronic kidney disease, stage 4 (severe) (principal); D63.1 Anemia in chronic kidney disease
CPT/HCPCS: 96372; Q5106

== ENCOUNTER 2023-09-11 14:00 | Outpatient (CLI) | payer MEDICARE, BC, SELFPAY ==
[2023-09-11 14:14] VITALS: BP 165/68; PULSE 71; RESP 16; TEMP 36.6; O2SAT 99
[2023-09-11 14:17] LABS: Absolute Lymphocyte Count 2.66 X10^3/uL (0.83-4.51); Absolute Neutrophil Count 7.9 X10^3/uL (2.0-7.7); Basophil# 0.12 X10^3/uL; Eosinophil# 0.23 X10^3/uL; Eosinophils% 1.9 % (0-5); Hematocrit 35.3 % (40-54); Lymphocyte # 2.66 X10^3/ul (0.83-4.51); Lymphocyte % 22.4 % (19-41); Mean Corp Hgb Conc 28.3 g/dL (32-36); Mean Corpuscular Hgb 20.6 pg (27.0-32.0); Mean Corpuscular Volume 72.8 fL (80-94); Mean Platelet Vol. 7.9 fl (6.2-12.0); Monocyte% 7.6 % (0-10); NRBC Flagged by Analyzer 0 % (0-5); Neutrophil # 7.94 X10^3/uL (2.7-7.7); Neutrophil % 66.7 % (47-70); Platelet Count 421 K/mm3 (150-450); RBC Distribution Width CV 17.7 % (11.6-14.6); RBC Distribution Width SD 45.8 fl (35.1-43.9); Red Blood Count 4.85 M/mm3 (4.6-6.2); White Blood Count 11.9 K/mm3 (4.4-11.0)
[2023-09-11 14:32] LABS: Anion Gap 5 (5-15); BUN 16 mg/dL (7-18); BUN/Creat Ratio 5.6 RATIO (10-20); Calcium,Total 8.1 mg/dL (8.5-10.1); Chloride 109 mmol/L (98-107); Creatinine, Serum 2.84 mg/dL (0.70-1.30); EST Glomerular Filtration Rate 24 mL/min (>60); Est Glom Filt Rate - Afr Amer 29 mL/min (>60); Glucose 102 mg/dL (74-106); Potassium 4.5 mmol/L (3.5-5.1); Sodium Level 137 mmol/L (136-145)
[2023-09-11] MEDS: Epoetin Alfa-EPBX 20,000 unit/ml 20000 UNIT SC (14:40)
== END 2023-09-11 23:59 | disposition home or self-care (01) ==
LOC: MEDOUTP 14:00
PROVIDERS: PCP Nurse Practitioner; Referring Provider Nurse Practitioner; Visit Provider Nurse Practitioner
DX: N18.4 Chronic kidney disease, stage 4 (severe) (principal); D63.1 Anemia in chronic kidney disease
CPT/HCPCS: 36415; 80048; 85025; 96372; Q5106

== ENCOUNTER 2023-09-13 13:51 | Outpatient (CLI) | payer MEDICARE, BC, SELFPAY ==
[2023-09-13 13:55] VITALS: BP 148/62; PULSE 60; RESP 16; TEMP 35.8
[2023-09-13] MEDS: Epoetin Alfa-EPBX 20,000 unit/ml 20000 UNIT SC (14:03)
== END 2023-09-13 23:59 | disposition home or self-care (01) ==
LOC: MEDOUTP 13:53
PROVIDERS: PCP Nurse Practitioner; Referring Provider Nurse Practitioner; Visit Provider Nurse Practitioner
DX: N18.4 Chronic kidney disease, stage 4 (severe) (principal); D63.1 Anemia in chronic kidney disease
CPT/HCPCS: 96372; Q5106

== ENCOUNTER 2023-09-16 14:24 | Outpatient (CLI) | payer MEDICARE, BC, SELFPAY ==
[2023-09-16 14:48] VITALS: BP 131/58; PULSE 61; RESP 16; TEMP 36
[2023-09-16] MEDS: Epoetin Alfa-EPBX 20,000 unit/ml 20000 UNIT SC (14:50)
== END 2023-09-16 23:59 | disposition home or self-care (01) ==
LOC: MEDOUTP 14:24
PROVIDERS: PCP Nurse Practitioner; Referring Provider Nurse Practitioner; Visit Provider Nurse Practitioner
DX: N18.4 Chronic kidney disease, stage 4 (severe) (principal); D63.1 Anemia in chronic kidney disease
CPT/HCPCS: 96372; Q5106

== ENCOUNTER 2023-09-18 13:55 | Outpatient (CLI) | payer MEDICARE, BC, SELFPAY ==
[2023-09-18 14:02] VITALS: BP 182/65; PULSE 60; RESP 16; TEMP 35.9; O2SAT 100; BMI 22.3
[2023-09-18] MEDS: Epoetin Alfa-EPBX 20,000 unit/ml 20000 UNIT SC (14:27)
== END 2023-09-18 23:59 | disposition home or self-care (01) ==
LOC: MEDOUTP 13:55
PROVIDERS: PCP Nurse Practitioner; Referring Provider Nurse Practitioner; Visit Provider Nurse Practitioner
DX: N18.4 Chronic kidney disease, stage 4 (severe) (principal); D63.1 Anemia in chronic kidney disease
CPT/HCPCS: 96372; Q5106

== ENCOUNTER 2023-09-20 13:35 | Outpatient (CLI) | payer MEDICARE, BC, SELFPAY ==
[2023-09-20] MEDS: Epoetin Alfa-EPBX 20,000 unit/ml 20000 UNIT SC (13:42)
[2023-09-20 13:43] VITALS: BP 204/76; PULSE 76; RESP 16; TEMP 36.4
== END 2023-09-20 23:59 | disposition home or self-care (01) ==
LOC: MEDOUTP 13:35
PROVIDERS: PCP Nurse Practitioner; Referring Provider Nurse Practitioner; Visit Provider Nurse Practitioner
DX: N18.4 Chronic kidney disease, stage 4 (severe) (principal); D63.1 Anemia in chronic kidney disease
CPT/HCPCS: 96372; Q5106

== ENCOUNTER 2023-09-23 14:19 | Outpatient (CLI) | payer MEDICARE, BC, SELFPAY ==
[2023-09-23 14:28] VITALS: BP 148/69; PULSE 59; RESP 16; TEMP 36.4; O2SAT 100; BMI 22.3
[2023-09-23] MEDS: Epoetin Alfa-EPBX 20,000 unit/ml 20000 UNIT SC (14:39)
== END 2023-09-23 23:59 | disposition home or self-care (01) ==
LOC: MEDOUTP 14:19
PROVIDERS: PCP Nurse Practitioner; Referring Provider Nurse Practitioner; Visit Provider Nurse Practitioner
DX: N18.4 Chronic kidney disease, stage 4 (severe) (principal); D63.1 Anemia in chronic kidney disease
CPT/HCPCS: 96372; Q5106

== ENCOUNTER 2023-09-25 14:06 | Outpatient (CLI) | payer MEDICARE, BC, SELFPAY ==
[2023-09-25 14:26] VITALS: BP 193/67; PULSE 59; RESP 16; TEMP 36.2; O2SAT 100; BMI 22.3
[2023-09-25] MEDS: Epoetin Alfa-EPBX 20,000 unit/ml 20000 UNIT SC (14:28)
[2023-09-25 14:29] LABS: Absolute Neutrophil Count 9.8 X10^3/uL (2.0-7.7); Basophil# 0.12 X10^3/uL; Basophil% 0.9 % (0-1); Eosinophils% 1.5 % (0-5); Hemoglobin 10.8 g/dL (13.0-16.5); Lymphocyte % 19.7 % (19-41); Mean Corp Hgb Conc 27.7 g/dL (32-36); Mean Corpuscular Hgb 19.6 pg (27.0-32.0); Mean Corpuscular Volume 70.9 fL (80-94); Mean Platelet Vol. 8.1 fl (6.2-12.0); Monocyte# 0.88 X10^3/uL; Monocyte% 6.4 % (0-10); NRBC Flagged by Analyzer 0 % (0-5); Neutrophil # 9.76 X10^3/uL (2.7-7.7); Neutrophil % 71.2 % (47-70); Platelet Count 501 K/mm3 (150-450); RBC Distribution Width CV 18.1 % (11.6-14.6); RBC Distribution Width SD 44.1 fl (35.1-43.9); White Blood Count 13.7 K/mm3 (4.4-11.0)
[2023-09-25 14:44] LABS: AST(SGOT) 8 U/L (15-37); Alanine Aminotransfer ALT/SGPT 11 U/L (16-61); Albumin, Serum 2.5 g/dL (3.2-5.0); Alkaline Phosphatase 159 U/L (45-117); Anion Gap 4 (5-15); BUN 15 mg/dL (7-18); Bilirubin, Direct 0.08 mg/dL (0.00-0.30); Calcium,Total 8.4 mg/dL (8.5-10.1); Chloride 106 mmol/L (98-107); Cholesterol 159 mg/dL (200); Creatinine, Serum 2.52 mg/dL (0.70-1.30); EST Glomerular Filtration Rate 28 mL/min (>60); Est Glom Filt Rate - Afr Amer 34 mL/min (>60); Glucose 124 mg/dL (74-106); High Density Lipoprotein 56 mg/dL; Potassium 4.8 mmol/L (3.5-5.1); Protein, Total 7.5 g/dL (6.4-8.2); Sodium Level 134 mmol/L (136-145); Triglycerides 85 mg/dL; Very Low Density Lipoprotein 17 mg/dL (5-40)
== END 2023-09-25 23:59 | disposition home or self-care (01) ==
LOC: MEDOUTP 14:06
PROVIDERS: PCP Nurse Practitioner; Referring Provider Nurse Practitioner; Visit Provider Nurse Practitioner
DX: N18.4 Chronic kidney disease, stage 4 (severe) (principal); D63.1 Anemia in chronic kidney disease; E78.5 Hyperlipidemia, unspecified
CPT/HCPCS: 36415; 80048; 80061; 80076; 85025; 96372; Q5106

== ENCOUNTER 2023-09-27 13:37 | Outpatient (CLI) | payer MEDICARE, BC, SELFPAY ==
[2023-09-27 13:44] VITALS: BP 158/60; PULSE 60; RESP 16; TEMP 35.5; O2SAT 100; BMI 22.3
[2023-09-27] MEDS: Epoetin Alfa-EPBX 20,000 unit/ml 20000 UNIT SC (14:10)
== END 2023-09-27 23:59 | disposition home or self-care (01) ==
LOC: MEDOUTP 13:37
PROVIDERS: PCP Nurse Practitioner; Referring Provider Nurse Practitioner; Visit Provider Nurse Practitioner
DX: N18.4 Chronic kidney disease, stage 4 (severe) (principal); D63.1 Anemia in chronic kidney disease
CPT/HCPCS: 96372; Q5106

== ENCOUNTER 2023-09-30 14:14 | Outpatient (CLI) | payer MEDICARE, BC, SELFPAY ==
[2023-09-30 14:28] VITALS: BP 175/67; PULSE 61; RESP 14; TEMP 36.2; O2SAT 98; BMI 23.1
[2023-09-30] MEDS: Epoetin Alfa-EPBX 20,000 unit/ml 20000 UNIT SC (14:36)
== END 2023-09-30 23:59 | disposition home or self-care (01) ==
LOC: MEDOUTP 14:14
PROVIDERS: PCP Nurse Practitioner; Referring Provider Nurse Practitioner; Visit Provider Nurse Practitioner
DX: N18.4 Chronic kidney disease, stage 4 (severe) (principal); D63.1 Anemia in chronic kidney disease
CPT/HCPCS: 96372; Q5106

== ENCOUNTER 2023-10-04 13:48 | Outpatient (CLI) | payer MEDICARE, BC, SELFPAY ==
[2023-10-04 14:00] VITALS: BP 141/67; PULSE 70; RESP 16; TEMP 36.1; O2SAT 99
[2023-10-04] MEDS: Epoetin Alfa-EPBX 20,000 unit/ml 20000 UNIT SC (14:05)
== END 2023-10-04 23:59 | disposition home or self-care (01) ==
LOC: MEDOUTP 13:48
PROVIDERS: PCP Nurse Practitioner; Referring Provider Nurse Practitioner; Visit Provider Nurse Practitioner
DX: N18.4 Chronic kidney disease, stage 4 (severe) (principal); D63.1 Anemia in chronic kidney disease
CPT/HCPCS: 96372; Q5106

== ENCOUNTER 2023-10-07 13:52 | Outpatient (CLI) | payer MEDICARE, BC, SELFPAY ==
[2023-10-07 14:14] VITALS: BP 153/73; PULSE 63; RESP 16; TEMP 35.9; O2SAT 96
[2023-10-07] MEDS: Epoetin Alfa-EPBX 20,000 unit/ml 20000 UNIT SC (14:33)
== END 2023-10-07 23:59 | disposition home or self-care (01) ==
LOC: MEDOUTP 13:52
PROVIDERS: PCP Nurse Practitioner; Referring Provider Nurse Practitioner; Visit Provider Nurse Practitioner
DX: N18.4 Chronic kidney disease, stage 4 (severe) (principal); D63.1 Anemia in chronic kidney disease
CPT/HCPCS: 96372; Q5106

== ENCOUNTER 2023-10-09 14:25 | Outpatient (CLI) | payer MEDICARE, BC, SELFPAY ==
[2023-10-09 14:48] VITALS: BP 173/69; PULSE 66; RESP 16; TEMP 36.3; O2SAT 99; BMI 23.1
[2023-10-09] MEDS: Epoetin Alfa-EPBX 20,000 unit/ml 20000 UNIT SC (14:49)
[2023-10-09 14:53] LABS: Absolute Lymphocyte Count 1.75 X10^3/uL (0.83-4.51); Absolute Neutrophil Count 5.5 X10^3/uL (2.0-7.7); Basophil# 0.08 X10^3/uL; Eosinophil# 0.16 X10^3/uL; Hematocrit 42.7 % (40-54); Hemoglobin 11.5 g/dL (13.0-16.5); Lymphocyte # 1.75 X10^3/ul (0.83-4.51); Lymphocyte % 21.7 % (19-41); Mean Corp Hgb Conc 26.9 g/dL (32-36); Mean Corpuscular Hgb 18.7 pg (27.0-32.0); Mean Corpuscular Volume 69.4 fL (80-94); Mean Platelet Vol. 8.3 fl (6.2-12.0); Monocyte% 6.2 % (0-10); NRBC Flagged by Analyzer 0 % (0-5); Neutrophil # 5.53 X10^3/uL (2.7-7.7); Neutrophil % 68.6 % (47-70); Platelet Count 308 K/mm3 (150-450); RBC Distribution Width CV 19.1 % (11.6-14.6); RBC Distribution Width SD 42.8 fl (35.1-43.9); Red Blood Count 6.15 M/mm3 (4.6-6.2); White Blood Count 8.1 K/mm3 (4.4-11.0)
[2023-10-09 15:02] LABS: Anion Gap 6 (5-15); BUN 18 mg/dL (7-18); BUN/Creat Ratio 6.3 RATIO (10-20); Calcium,Total 8.5 mg/dL (8.5-10.1); Chloride 105 mmol/L (98-107); Creatinine, Serum 2.87 mg/dL (0.70-1.30); EST Glomerular Filtration Rate 24 mL/min (>60); Est Glom Filt Rate - Afr Amer 29 mL/min (>60); Estimated Creatinine Clearance 26.48 ml/min; Glucose 153 mg/dL (74-106); Potassium 4.6 mmol/L (3.5-5.1); Sodium Level 135 mmol/L (136-145)
== END 2023-10-09 23:59 | disposition home or self-care (01) ==
LOC: MEDOUTP 14:25
PROVIDERS: PCP Nurse Practitioner; Referring Provider Nurse Practitioner; Visit Provider Nurse Practitioner
DX: D64.9 Anemia, unspecified (principal); N17.9 Acute kidney failure, unspecified
CPT/HCPCS: 36415; 80048; 85025; 96372; Q5106

== ENCOUNTER 2023-10-16 15:42 | Outpatient (CLI) | payer MEDICARE, BC, SELFPAY ==
[2023-10-16 15:47] VITALS: BP 180/72; PULSE 66; RESP 16; TEMP 36.2; O2SAT 98; BMI 22.3
[2023-10-16] MEDS: Epoetin Alfa-EPBX 20,000 unit/ml 20000 UNIT SC (15:51)
== END 2023-10-16 23:59 | disposition home or self-care (01) ==
LOC: MEDOUTP 15:42
PROVIDERS: PCP Nurse Practitioner; Referring Provider Nurse Practitioner; Visit Provider Nurse Practitioner
DX: D64.9 Anemia, unspecified (principal); N17.9 Acute kidney failure, unspecified
CPT/HCPCS: 96372; Q5106

== ENCOUNTER 2023-10-18 15:36 | Outpatient (CLI) | payer MEDICARE, BC, SELFPAY ==
[2023-10-18 15:48] VITALS: BP 180/50; PULSE 66; RESP 16; TEMP 36.3; O2SAT 100; BMI 22.3
[2023-10-18] MEDS: Epoetin Alfa-EPBX 20,000 unit/ml 20000 UNIT SC (16:05)
== END 2023-10-18 23:59 | disposition home or self-care (01) ==
LOC: MEDOUTP 15:38
PROVIDERS: PCP Nurse Practitioner; Referring Provider Nurse Practitioner; Visit Provider Nurse Practitioner
DX: D64.9 Anemia, unspecified (principal); N17.9 Acute kidney failure, unspecified
CPT/HCPCS: 96372; Q5106

== ENCOUNTER → 2023-11-01 | Outpatient (CLI) | payer MEDICARE, BC, SELFPAY ==
[2023-11-01 20:39] LABS: Absolute Neutrophil Count 6.7 X10^3/uL (2.0-7.7); Basophil# 0.07 X10^3/uL; Basophil% 0.7 % (0-1); Eosinophil# 0.21 X10^3/uL; Eosinophils% 2.2 % (0-5); Hematocrit 29.9 % (40-54); Hemoglobin 8.1 g/dL (13.0-16.5); Mean Corp Hgb Conc 27.1 g/dL (32-36); Mean Corpuscular Hgb 18.7 pg (27.0-32.0); Mean Corpuscular Volume 68.9 fL (80-94); Mean Platelet Vol. 10.1 fl (6.2-12.0); Monocyte# 0.65 X10^3/uL; Monocyte% 6.9 % (0-10); NRBC Flagged by Analyzer 0 % (0-5); Neutrophil # 6.67 X10^3/uL (2.7-7.7); Neutrophil % 70.7 % (47-70); POSITIVE MORPHOLOGY YES; Platelet Count 235 K/mm3 (150-450); RBC Distribution Width CV 20.6 % (11.6-14.6); RBC Distribution Width SD 43.3 fl (35.1-43.9); Red Blood Count 4.34 M/mm3 (4.6-6.2); White Blood Count 9.5 K/mm3 (4.4-11.0)
[2023-11-01 21:00] LABS: Differential Indicated SCAN CRITERIA MET
[2023-11-01 21:09] LABS: ALB/GLOB Ratio 0.8 RATIO (0.9-2.4); AST(SGOT) 9 U/L (15-37); Alanine Aminotransfer ALT/SGPT 14 U/L (16-61); Albumin, Serum 2.7 g/dL (3.2-5.0); Alkaline Phosphatase 155 U/L (45-117); Anion Gap 5 (5-15); BUN 14 mg/dL (7-18); BUN/Creat Ratio 5.3 RATIO (10-20); Calcium,Total 8.1 mg/dL (8.5-10.1); Chloride 110 mmol/L (98-107); Creatinine, Serum 2.63 mg/dL (0.70-1.30); EST Glomerular Filtration Rate 27 mL/min (>60); Est Glom Filt Rate - Afr Amer 32 mL/min (>60); Globulin 3.6 g/dL (2.2-4.2); Glucose 148 mg/dL (74-106); Potassium 4.3 mmol/L (3.5-5.1); Protein, Total 6.3 g/dL (6.4-8.2); Sodium Level 140 mmol/L (136-145)
[2023-11-01 22:21] LABS: Anisocytosis 2+; Differential Comment SCANNED; Ovalocyte 1+
[2023-11-01 22:22] LABS: Hypochromasia 1+; Target Cells RARE
[2023-11-01 22:25] LABS: Toxic Granulation 2+
== END | disposition home or self-care (01) ==
PROVIDERS: PCP Nurse Practitioner; Referring Provider Nurse Practitioner; Visit Provider Nurse Practitioner
DX: E87.6 Hypokalemia (principal); N18.4 Chronic kidney disease, stage 4 (severe); R79.89 Other specified abnormal findings of blood chemistry
CPT/HCPCS: 80053; 85025

== ENCOUNTER → 2023-11-21 | Outpatient (CLI) | payer BC, MEDICARE, SELFPAY ==
[2023-11-21 22:14] LABS: Absolute Lymphocyte Count 2.74 X10^3/uL (0.83-4.51); Absolute Neutrophil Count 7.7 X10^3/uL (2.0-7.7); Basophil# 0.09 X10^3/uL; Basophil% 0.8 % (0-1); Eosinophil# 0.37 X10^3/uL; Eosinophils% 3.2 % (0-5); Hematocrit 34.2 % (40-54); Hemoglobin 9.6 g/dL (13.0-16.5); Lymphocyte # 2.74 X10^3/ul (0.83-4.51); Lymphocyte % 23.7 % (19-41); Mean Corp Hgb Conc 28.1 g/dL (32-36); Mean Corpuscular Hgb 20.6 pg (27.0-32.0); Mean Corpuscular Volume 73.5 fL (80-94); Mean Platelet Vol. 9.5 fl (6.2-12.0); Monocyte# 0.63 X10^3/uL; Monocyte% 5.5 % (0-10); NRBC Flagged by Analyzer 0 % (0-5); Neutrophil # 7.67 X10^3/uL (2.7-7.7); Neutrophil % 66.5 % (47-70); POSITIVE MORPHOLOGY YES; Platelet Count 381 K/mm3 (150-450); RBC Distribution Width CV 26.3 % (11.6-14.6); RBC Distribution Width SD 67.5 fl (35.1-43.9); Red Blood Count 4.65 M/mm3 (4.6-6.2); White Blood Count 11.5 K/mm3 (4.4-11.0)
[2023-11-21 22:18] LABS: Differential Indicated SCAN CRITERIA MET
[2023-11-21 22:42] LABS: AST(SGOT) 9 U/L (15-37); Alanine Aminotransfer ALT/SGPT 11 U/L (16-61); Albumin, Serum 2.7 g/dL (3.2-5.0); Alkaline Phosphatase 168 U/L (45-117); Bilirubin, Direct < 0.05 mg/dL (0.00-0.30); Cholesterol 228 mg/dL (200); Globulin 4.5 g/dL (2.2-4.2); High Density Lipoprotein 50 mg/dL; Protein, Total 7.2 g/dL (6.4-8.2); Triglycerides 132 mg/dL; Very Low Density Lipoprotein 26 mg/dL (5-40)
[2023-11-21 22:43] LABS: ALB/GLOB Ratio 0.6 RATIO (0.9-2.4); AST(SGOT) 12 U/L (15-37); Alanine Aminotransfer ALT/SGPT 11 U/L (16-61); Albumin, Serum 2.8 g/dL (3.2-5.0); Alkaline Phosphatase 165 U/L (45-117); Anion Gap 3 (5-15); Anisocytosis 2+; BUN 17 mg/dL (7-18); BUN/Creat Ratio 5.6 RATIO (10-20); Calcium,Total 8.8 mg/dL (8.5-10.1); Chloride 116 mmol/L (98-107); Creatinine, Serum 3.03 mg/dL (0.70-1.30); EST Glomerular Filtration Rate 23 mL/min (>60); Est Glom Filt Rate - Afr Amer 27 mL/min (>60); Ferritin 32 ng/mL (26-388); Globulin 4.4 g/dL (2.2-4.2); Glucose 134 mg/dL (74-106); Iron 46 ug/dL (65-175); Iron Binding Capacity,Total 238 ug/dL (250-450); PERCENT IRON SATURATION 19.3 % (15.0-55.0); Polychromasia RARE; Potassium 5.2 mmol/L (3.5-5.1); Protein, Total 7.2 g/dL (6.4-8.2); Sodium Level 142 mmol/L (136-145)
[2023-11-21 22:54] LABS: Hemoglobin A1c 6.8 % (3.8-5.6)
[2023-11-23 10:13] LABS: CRP, High Sensitivity 27.92 mg/L (0.00-3.00)
== END | disposition home or self-care (01) ==
PROVIDERS: Physician Assistant Medical; PCP Nurse Practitioner; Referring Provider Nurse Practitioner; Visit Provider Nurse Practitioner
DX: I12.9 Hypertensive chronic kidney disease with stage 1 through stage 4 chronic kidney disease, or unspecified chronic kidney disease (principal); N18.4 Chronic kidney disease, stage 4 (severe); D72.18 Eosinophilia in diseases classified elsewhere; N17.9 Acute kidney failure, unspecified; E61.1 Iron deficiency
CPT/HCPCS: 80053; 80061; 80076; 82728; 83036; 83540; 83550; 85025; 86141

== ENCOUNTER → 2023-11-29 | Outpatient (CLI) | payer BC, MEDICARE, SELFPAY ==
[2023-11-29 20:10] LABS: Absolute Lymphocyte Count 2.65 X10^3/uL (0.83-4.51); Absolute Neutrophil Count 11.8 X10^3/uL (2.0-7.7); Basophil# 0.09 X10^3/uL; Basophil% 0.6 % (0-1); Eosinophil# 0.22 X10^3/uL; Eosinophils% 1.4 % (0-5); Hematocrit 28.3 % (40-54); Hemoglobin 8.3 g/dL (13.0-16.5); Lymphocyte # 2.65 X10^3/ul (0.83-4.51); Mean Corp Hgb Conc 29.3 g/dL (32-36); Mean Corpuscular Hgb 21.4 pg (27.0-32.0); Mean Corpuscular Volume 72.9 fL (80-94); Mean Platelet Vol. 9.3 fl (6.2-12.0); Monocyte# 0.76 X10^3/uL; Monocyte% 4.9 % (0-10); NRBC Flagged by Analyzer 0 % (0-5); Neutrophil # 11.76 X10^3/uL (2.7-7.7); Neutrophil % 75.5 % (47-70); POSITIVE MORPHOLOGY YES; Platelet Count 335 K/mm3 (150-450); RBC Distribution Width CV 26.8 % (11.6-14.6); RBC Distribution Width SD 68.5 fl (35.1-43.9); Red Blood Count 3.88 M/mm3 (4.6-6.2); White Blood Count 15.6 K/mm3 (4.4-11.0)
[2023-11-29 20:23] LABS: ALB/GLOB Ratio 0.5 RATIO (0.9-2.4); AST(SGOT) 9 U/L (15-37); Alanine Aminotransfer ALT/SGPT 11 U/L (16-61); Albumin, Serum 2.4 g/dL (3.2-5.0); Alkaline Phosphatase 140 U/L (45-117); Anion Gap 5 (5-15); BUN 14 mg/dL (7-18); BUN/Creat Ratio 4.3 RATIO (10-20); Calcium,Total 8.3 mg/dL (8.5-10.1); Chloride 113 mmol/L (98-107); Cholesterol 174 mg/dL (200); Creatinine, Serum 3.22 mg/dL (0.70-1.30); EST Glomerular Filtration Rate 21 mL/min (>60); Est Glom Filt Rate - Afr Amer 25 mL/min (>60); Globulin 4.4 g/dL (2.2-4.2); Glucose 139 mg/dL (74-106); High Density Lipoprotein 40 mg/dL; Potassium 4.7 mmol/L (3.5-5.1); Protein, Total 6.8 g/dL (6.4-8.2); Sodium Level 140 mmol/L (136-145); Triglycerides 105 mg/dL; Very Low Density Lipoprotein 21 mg/dL (5-40)
[2023-11-29 20:46] LABS: Differential Indicated SCAN CRITERIA MET
[2023-11-29 21:09] LABS: Anisocytosis 2+; Hypochromasia 1+; Platelet Estimate ADEQUATE (ADEQ)
[2023-11-29 21:10] LABS: Ovalocyte RARE; Stomatocyte RARE
== END | disposition home or self-care (01) ==
PROVIDERS: PCP Nurse Practitioner; Referring Provider Nurse Practitioner; Visit Provider Nurse Practitioner
DX: E61.1 Iron deficiency (principal); E11.59 Type 2 diabetes mellitus with other circulatory complications; E78.5 Hyperlipidemia, unspecified; I10 Essential (primary) hypertension
CPT/HCPCS: 80053; 80061; 85025

== ENCOUNTER 2023-12-10 15:37 | Inpatient (IN) | payer BC, MEDICARE, SELFPAY ==
[2023-12-10] VITALS (9 sets, daily range): BP systolic 176–209; BP diastolic 62–76; PULSE 63–72; RESP 16–23; TEMP 36.6–36.9; O2SAT 95–99; BMI 23.3; BMI 22.6
[2023-12-10] MEDS: 0.9% Normal Saline (500mL Bag) 500 ML 1000 ML IV (16:21)
[2023-12-10 16:31] LABS: Absolute Lymphocyte Count 2.21 X10^3/uL (0.83-4.51); Absolute Neutrophil Count 9.2 X10^3/uL (2.0-7.7); Basophil# 0.08 X10^3/uL; Basophil% 0.6 % (0-1); Eosinophil# 0.32 X10^3/uL; Eosinophils% 2.6 % (0-5); Hemoglobin 7.8 g/dL (13.0-16.5); Lymphocyte # 2.21 X10^3/ul (0.83-4.51); Lymphocyte % 17.8 % (19-41); Mean Corpuscular Hgb 22.6 pg (27.0-32.0); Mean Corpuscular Volume 75.4 fL (80-94); Mean Platelet Vol. 8.9 fl (6.2-12.0); Monocyte# 0.59 X10^3/uL; Monocyte% 4.7 % (0-10); NRBC Flagged by Analyzer 0 % (0-5); Neutrophil # 9.16 X10^3/uL (2.7-7.7); Neutrophil % 73.7 % (47-70); POSITIVE MORPHOLOGY YES; Platelet Count 369 K/mm3 (150-450); RBC Distribution Width CV 27.3 % (11.6-14.6); RBC Distribution Width SD 73.6 fl (35.1-43.9); Red Blood Count 3.45 M/mm3 (4.6-6.2); White Blood Count 12.4 K/mm3 (4.4-11.0)
[2023-12-10 16:35] LABS: Differential Indicated SCAN CRITERIA MET
[2023-12-10 16:44] LABS: Anion Gap 4 (5-15); BUN 19 mg/dL (7-18); BUN/Creat Ratio 6.7 RATIO (10-20); Calcium,Total 8.1 mg/dL (8.5-10.1); Chloride 115 mmol/L (98-107); Creatinine, Serum 2.82 mg/dL (0.70-1.30); EST Glomerular Filtration Rate 25 mL/min (>60); Est Glom Filt Rate - Afr Amer 30 mL/min (>60); Estimated Creatinine Clearance 26.95 ml/min; Glucose 301 mg/dL (74-106); Potassium 4.4 mmol/L (3.5-5.1); Sodium Level 142 mmol/L (136-145)
[2023-12-10 17:00] LABS: Anisocytosis 2+; Crenated RBC RARE; Differential Comment SCANNED; Macrocytosis RARE
[2023-12-10 17:13] LABS: Bedside Glucose 237 mg/dL (74-106)
[2023-12-10] MEDS: Pantoprazole Sodium 80 MG in 0.9% Normal Saline (50mL Bag) 15 ML 420 MG IV BOLUS (19:48)
[2023-12-10 20:40] LABS: AST(SGOT) 8 U/L (15-37); Alanine Aminotransfer ALT/SGPT 13 U/L (16-61); Albumin, Serum 2.1 g/dL (3.2-5.0); Alkaline Phosphatase 111 U/L (45-117); Bilirubin, Direct < 0.05 mg/dL (0.00-0.30); Globulin 4.3 g/dL (2.2-4.2); Magnesium 2.1 mg/dL (1.6-2.6); Protein, Total 6.4 g/dL (6.4-8.2)
[2023-12-10 21:26] LABS: Prothrombin Time (Protime)PT. 12.8 SECONDS (11.7-14.9)
[2023-12-10 21:59] LABS: Hematocrit 27.7 % (40-54); Hemoglobin 8.1 g/dL (13.0-16.5)
[2023-12-10 22:02] LABS: Platelet Count 384 K/mm3 (150-450); RET-HE 24.5 pg (30-35); Reticulocyte Count 0.96 % (0.5-1.5)
[2023-12-10] MEDS: Atorvastatin Calcium 80 MG Tablet PO (22:14)
[2023-12-10] MEDS: Pantoprazole Sodium 40 MG in 0.9% Normal Saline (100mL MB+) 100 ML 330 MG IV (22:14)
[2023-12-10] MEDS: Lactated Ringers 1,000 ML 50 ML IV (22:14)
[2023-12-10] MEDS: Labetalol (Prefilled) 20 MG/4 ML Vial IV (23:49)
[2023-12-10] MEDS: Sodium Ferric Gluconat/Sucrose 250 MG in 0.9% Normal Saline (250mL Bag) 250 ML 135 MG IV (23:53)
[2023-12-11] VITALS (19 sets, daily range): BP systolic 134–184; BP diastolic 53–85; PULSE 55–78; RESP 14–18; TEMP 35.8–37; O2SAT 93–100; BMI 22.6
[2023-12-11 03:41] LABS: Absolute Lymphocyte Count 3.23 X10^3/uL (0.83-4.51); Absolute Neutrophil Count 10.1 X10^3/uL (2.0-7.7); Basophil# 0.06 X10^3/uL; Basophil% 0.4 % (0-1); Eosinophil# 0.42 X10^3/uL; Eosinophils% 2.9 % (0-5); Hematocrit 26.6 % (40-54); Hemoglobin 7.9 g/dL (13.0-16.5); Lymphocyte # 3.23 X10^3/ul (0.83-4.51); Lymphocyte % 22.1 % (19-41); Mean Corp Hgb Conc 29.7 g/dL (32-36); Mean Corpuscular Hgb 22.8 pg (27.0-32.0); Mean Corpuscular Volume 76.7 fL (80-94); Mean Platelet Vol. 8.8 fl (6.2-12.0); Monocyte# 0.76 X10^3/uL; Monocyte% 5.2 % (0-10); NRBC Flagged by Analyzer 0 % (0-5); Neutrophil # 10.07 X10^3/uL (2.7-7.7); Neutrophil % 68.9 % (47-70); POSITIVE MORPHOLOGY YES; Platelet Count 388 K/mm3 (150-450); RBC Distribution Width CV 27.4 % (11.6-14.6); RBC Distribution Width SD 74.7 fl (35.1-43.9); Red Blood Count 3.47 M/mm3 (4.6-6.2); White Blood Count 14.6 K/mm3 (4.4-11.0)
[2023-12-11 04:01] LABS: Prothrombin Time (Protime)PT. 13.3 SECONDS (11.7-14.9)
[2023-12-11 04:02] LABS: Partial Thromboplast Time 38.8 Seconds (24.1-36.2)
[2023-12-11 04:15] LABS: Anion Gap 4 (5-15); BUN 16 mg/dL (7-18); BUN/Creat Ratio 6.3 RATIO (10-20); Calcium,Total 8.5 mg/dL (8.5-10.1); Chloride 117 mmol/L (98-107); Cholesterol 147 mg/dL (200); Creatinine, Serum 2.52 mg/dL (0.70-1.30); Differential Indicated SCAN CRITERIA MET; EST Glomerular Filtration Rate 28 mL/min (>60); Est Glom Filt Rate - Afr Amer 34 mL/min (>60); Estimated Creatinine Clearance 29.85 ml/min; Glucose 108 mg/dL (74-106); High Density Lipoprotein 48 mg/dL; Potassium 4.1 mmol/L (3.5-5.1); Sodium Level 142 mmol/L (136-145); Triglycerides 90 mg/dL; Very Low Density Lipoprotein 18 mg/dL (5-40)
[2023-12-11 04:20] LABS: Differential Comment SCANNED
[2023-12-11] MEDS: Labetalol (Prefilled) 20 MG/4 ML Vial IV (06:01)
[2023-12-11 07:28] LABS: Hemoglobin A1c 6.8 % (3.8-5.6)
[2023-12-11] MEDS: Carvedilol 25 MG Tablet PO ×2 (08:13→17:29)
[2023-12-11] MEDS: Clopidogrel Bisulfate 75 MG Tablet PO (08:14)
[2023-12-11] MEDS: NIFEdipine 90 MG Tablet PO (08:14)
[2023-12-11 08:56] LABS: Hematocrit 28.7 % (40-54); Hemoglobin 8.4 g/dL (13.0-16.5)
[2023-12-11 09:18] LABS: Magnesium 2.3 mg/dL (1.6-2.6)
[2023-12-11] MEDS: Pantoprazole Sodium 40 MG in 0.9% Normal Saline (100mL MB+) 100 ML 330 MG IV ×2 (10:55→22:01)
[2023-12-11 11:03] LABS: Bedside Glucose 93 mg/dL (74-106)
[2023-12-11 11:53] LABS: Bedside Glucose 101 mg/dL (74-106)
[2023-12-11 15:51] LABS: Hematocrit 24.2 % (40-54); Hemoglobin 7.1 g/dL (13.0-16.5)
[2023-12-11 17:52] LABS: Bedside Glucose 95 mg/dL (74-106)
[2023-12-11] MEDS: Atorvastatin Calcium 80 MG Tablet PO (22:02)
[2023-12-12] VITALS (8 sets, daily range): BP systolic 159–192; BP diastolic 60–76; PULSE 55–78; RESP 16–18; TEMP 36.4–36.8; O2SAT 93–99
[2023-12-12 06:49] LABS: Absolute Lymphocyte Count 2.65 X10^3/uL (0.83-4.51); Absolute Neutrophil Count 7.7 X10^3/uL (2.0-7.7); Basophil# 0.07 X10^3/uL; Basophil% 0.6 % (0-1); Eosinophil# 0.36 X10^3/uL; Eosinophils% 3.1 % (0-5); Hematocrit 25.3 % (40-54); Hemoglobin 7.3 g/dL (13.0-16.5); Lymphocyte # 2.65 X10^3/ul (0.83-4.51); Lymphocyte % 23.1 % (19-41); Mean Corp Hgb Conc 28.9 g/dL (32-36); Mean Corpuscular Hgb 21.8 pg (27.0-32.0); Mean Corpuscular Volume 75.5 fL (80-94); Mean Platelet Vol. 9.2 fl (6.2-12.0); Monocyte% 5.2 % (0-10); NRBC Flagged by Analyzer 0 % (0-5); Neutrophil # 7.74 X10^3/uL (2.7-7.7); Neutrophil % 67.6 % (47-70); POSITIVE MORPHOLOGY YES; Platelet Count 320 K/mm3 (150-450); RBC Distribution Width CV 27.7 % (11.6-14.6); RBC Distribution Width SD 74.5 fl (35.1-43.9); Red Blood Count 3.35 M/mm3 (4.6-6.2); White Blood Count 11.5 K/mm3 (4.4-11.0)
[2023-12-12 07:13] LABS: Differential Indicated SCAN CRITERIA MET
[2023-12-12 08:04] LABS: Anion Gap 2 (5-15); BUN 18 mg/dL (7-18); BUN/Creat Ratio 7.1 RATIO (10-20); Calcium,Total 8.6 mg/dL (8.5-10.1); Chloride 118 mmol/L (98-107); Creatinine, Serum 2.54 mg/dL (0.70-1.30); EST Glomerular Filtration Rate 28 mL/min (>60); Est Glom Filt Rate - Afr Amer 33 mL/min (>60); Estimated Creatinine Clearance 29.62 ml/min; Glucose 84 mg/dL (74-106); Potassium 6.1 mmol/L (3.5-5.1); Sodium Level 140 mmol/L (136-145)
[2023-12-12 08:07] LABS: Anisocytosis 2+; Hypochromasia 1+
[2023-12-12] MEDS: Pantoprazole Sodium 40 MG in 0.9% Normal Saline (100mL MB+) 100 ML 330 MG IV ×2 (08:46→22:15)
[2023-12-12] MEDS: 0.9% Saline Lock 10 ML Syringe IV ×2 (08:48→22:15)
[2023-12-12] MEDS: Carvedilol 25 MG Tablet PO ×2 (08:48→16:18)
[2023-12-12] MEDS: NIFEdipine 90 MG Tablet PO (08:48)
[2023-12-12] MEDS: Clopidogrel Bisulfate 75 MG Tablet PO (08:48)
[2023-12-12] MEDS: Sodium Polystyrene Sulfonate 15 GM/60 ML UDC 30 GM PO (08:48)
[2023-12-12 12:21] LABS: Bedside Glucose 146 mg/dL (74-106)
[2023-12-12 16:47] LABS: Bedside Glucose 208 mg/dL (74-106)
[2023-12-12] MEDS: hydrALAZINE 20 MG/ML Vial 10 MG IV (18:49)
[2023-12-12] MEDS: Labetalol (Prefilled) 20 MG/4 ML Vial IV (22:08)
[2023-12-12] MEDS: Atorvastatin Calcium 80 MG Tablet PO (22:15)
[2023-12-12 23:48] LABS: Bedside Glucose 178 mg/dL (74-106)
[2023-12-13] VITALS (14 sets, daily range): BP systolic 142–203; BP diastolic 48–78; PULSE 62–67; RESP 12–18; TEMP 36.7–37.3; O2SAT 94–100
[2023-12-13] MEDS: Carvedilol 25 MG Tablet PO (00:21)
[2023-12-13] MEDS: hydrALAZINE 20 MG/ML Vial 10 MG IV (04:00)
[2023-12-13] MEDS: 0.9% Saline Lock 10 ML Syringe IV (06:20)
[2023-12-13] MEDS: Labetalol (Prefilled) 20 MG/4 ML Vial IV (06:20)
[2023-12-13 06:32] LABS: Bedside Glucose 124 mg/dL (74-106)
[2023-12-13 07:00] LABS: Absolute Lymphocyte Count 1.74 X10^3/uL (0.83-4.51); Absolute Neutrophil Count 10.3 X10^3/uL (2.0-7.7); Basophil# 0.05 X10^3/uL; Basophil% 0.4 % (0-1); Eosinophil# 0.29 X10^3/uL; Eosinophils% 2.2 % (0-5); Hematocrit 24.9 % (40-54); Hemoglobin 7.4 g/dL (13.0-16.5); Lymphocyte # 1.74 X10^3/ul (0.83-4.51); Lymphocyte % 13.3 % (19-41); Mean Corp Hgb Conc 29.7 g/dL (32-36); Mean Corpuscular Hgb 22.2 pg (27.0-32.0); Mean Corpuscular Volume 74.8 fL (80-94); Mean Platelet Vol. 9.2 fl (6.2-12.0); Monocyte# 0.69 X10^3/uL; Monocyte% 5.3 % (0-10); NRBC Flagged by Analyzer 0 % (0-5); Neutrophil # 10.27 X10^3/uL (2.7-7.7); Neutrophil % 78.3 % (47-70); POSITIVE MORPHOLOGY YES; Platelet Count 343 K/mm3 (150-450); RBC Distribution Width SD 72.4 fl (35.1-43.9); Red Blood Count 3.33 M/mm3 (4.6-6.2); White Blood Count 13.1 K/mm3 (4.4-11.0)
[2023-12-13 07:05] LABS: Differential Indicated SCAN CRITERIA MET
[2023-12-13 07:20] LABS: Anion Gap 4 (5-15); BUN 21 mg/dL (7-18); BUN/Creat Ratio 7.7 RATIO (10-20); Calcium,Total 8.2 mg/dL (8.5-10.1); Chloride 116 mmol/L (98-107); Creatinine, Serum 2.73 mg/dL (0.70-1.30); EST Glomerular Filtration Rate 25 mL/min (>60); Est Glom Filt Rate - Afr Amer 31 mL/min (>60); Estimated Creatinine Clearance 27.55 ml/min; Glucose 122 mg/dL (74-106); Potassium 4.7 mmol/L (3.5-5.1); Sodium Level 140 mmol/L (136-145)
[2023-12-13] MEDS: cloNIDine HCl 0.2 MG Tablet PO (08:39)
[2023-12-13] MEDS: NIFEdipine 90 MG Tablet PO (08:40)
[2023-12-13] MEDS: Clopidogrel Bisulfate 75 MG Tablet PO (08:40)
[2023-12-13] MEDS: Pantoprazole Sodium 40 MG Tablet PO ×2 (09:46→22:14)
[2023-12-13 09:59] LABS: Anisocytosis 3+; Differential Comment SCANNED; Platelet Estimate ADEQUATE (ADEQ)
[2023-12-13 10:01] LABS: Acanthocytes RARE; Hypochromasia 2+; Microcytosis 2+; Ovalocyte 1+; Tear Drop Cell RARE
[2023-12-13] MEDS: hydrALAZINE 25 MG Tablet PO ×3 (10:09→22:14)
[2023-12-13 11:54] LABS: Bedside Glucose 146 mg/dL (74-106)
[2023-12-13 16:43] LABS: Bedside Glucose 195 mg/dL (74-106)
[2023-12-13] MEDS: Atorvastatin Calcium 80 MG Tablet PO (22:14)
[2023-12-13 22:47] LABS: Bedside Glucose 167 mg/dL (74-106)
[2023-12-14] VITALS (14 sets, daily range): BP systolic 166–205; BP diastolic 47–65; PULSE 67–76; RESP 16–18; TEMP 36.3–37; O2SAT 95–100; BMI 22.6
[2023-12-14] MEDS: hydrALAZINE 20 MG/ML Vial 10 MG IV ×2 (03:46→13:08)
[2023-12-14] MEDS: 0.9% Saline Lock 10 ML Syringe IV ×2 (03:47→13:08)
[2023-12-14] MEDS: hydrALAZINE 25 MG Tablet PO ×2 (06:31→09:33)
[2023-12-14 06:48] LABS: Absolute Lymphocyte Count 1.95 X10^3/uL (0.83-4.51); Absolute Neutrophil Count 8.5 X10^3/uL (2.0-7.7); Basophil# 0.04 X10^3/uL; Basophil% 0.3 % (0-1); Eosinophil# 0.33 X10^3/uL; Eosinophils% 2.9 % (0-5); Hematocrit 24.5 % (40-54); Hemoglobin 7.3 g/dL (13.0-16.5); Lymphocyte # 1.95 X10^3/ul (0.83-4.51); Lymphocyte % 16.9 % (19-41); Mean Corp Hgb Conc 29.8 g/dL (32-36); Mean Corpuscular Hgb 22.6 pg (27.0-32.0); Mean Corpuscular Volume 75.9 fL (80-94); Mean Platelet Vol. 8.9 fl (6.2-12.0); Monocyte% 6.1 % (0-10); NRBC Flagged by Analyzer 0 % (0-5); Neutrophil # 8.45 X10^3/uL (2.7-7.7); Neutrophil % 73.3 % (47-70); POSITIVE MORPHOLOGY YES; Platelet Count 312 K/mm3 (150-450); RBC Distribution Width CV 27.3 % (11.6-14.6); RBC Distribution Width SD 74.2 fl (35.1-43.9); Red Blood Count 3.23 M/mm3 (4.6-6.2); White Blood Count 11.5 K/mm3 (4.4-11.0)
[2023-12-14 06:50] LABS: Bedside Glucose 105 mg/dL (74-106); Differential Indicated SCAN CRITERIA MET
[2023-12-14 07:17] LABS: Anion Gap 4 (5-15); BUN 22 mg/dL (7-18); BUN/Creat Ratio 7.1 RATIO (10-20); Calcium,Total 8.3 mg/dL (8.5-10.1); Chloride 116 mmol/L (98-107); Creatinine, Serum 3.09 mg/dL (0.70-1.30); EST Glomerular Filtration Rate 22 mL/min (>60); Est Glom Filt Rate - Afr Amer 27 mL/min (>60); Estimated Creatinine Clearance 24.34 ml/min; Glucose 114 mg/dL (74-106); Potassium 4.8 mmol/L (3.5-5.1); Sodium Level 140 mmol/L (136-145)
[2023-12-14 07:18] LABS: Anisocytosis 2+
[2023-12-14] MEDS: Clopidogrel Bisulfate 75 MG Tablet PO (09:33)
[2023-12-14] MEDS: Pantoprazole Sodium 40 MG Tablet PO (09:34)
[2023-12-14] MEDS: NIFEdipine 90 MG Tablet PO (09:34)
[2023-12-14 11:43] LABS: Bedside Glucose 202 mg/dL (74-106)
[2023-12-14] MEDS: hydrALAZINE 50 MG Tablet PO (13:07)
[2023-12-14 16:33] LABS: Hematocrit 30.6 % (40-54); Hemoglobin 9.5 g/dL (13.0-16.5)
== END 2023-12-14 16:53 | disposition home or self-care (01) | DRG 64 ==
LOC: ED 16:47 → PCU 20:18
PROVIDERS: Anesthesiology; Internal Medicine Gastroenterology; Admitting Provider Internal Medicine; Emergency Provider Emergency Medicine; PCP Nurse Practitioner; Visit Provider Student in an Organized Health Care Education/Training Program
PROC: 0DJ08ZZ Inspection of Upper Intestinal Tract, Via Natural or Artificial Opening Endoscopic (ICD-10-PCS; CPT 43235; principal; 2023-12-11 13:25)
DX: I63.89 Other cerebral infarction (principal); K20.81 Other esophagitis with bleeding; E87.21 Acute metabolic acidosis; N18.4 Chronic kidney disease, stage 4 (severe); I50.32 Chronic diastolic (congestive) heart failure; I16.0 Hypertensive urgency; R13.10 Dysphagia, unspecified; E11.22 Type 2 diabetes mellitus with diabetic chronic kidney disease; J44.9 Chronic obstructive pulmonary disease, unspecified; I12.9 Hypertensive chronic kidney disease with stage 1 through stage 4 chronic kidney disease, or unspecified chronic kidney disease; Z93.3 Colostomy status; E11.51 Type 2 diabetes mellitus with diabetic peripheral angiopathy without gangrene; E78.5 Hyperlipidemia, unspecified; I25.10 Atherosclerotic heart disease of native coronary artery without angina pectoris; F17.210 Nicotine dependence, cigarettes, uncomplicated; L73.2 Hidradenitis suppurativa; K44.9 Diaphragmatic hernia without obstruction or gangrene; E87.5 Hyperkalemia; R13.14 Dysphagia, pharyngoesophageal phase; R20.0 Anesthesia of skin; Z79.82 Long term (current) use of aspirin; Z79.02 Long term (current) use of antithrombotics/antiplatelets; G89.29 Other chronic pain; R29.700 NIHSS score 0; Z79.2 Long term (current) use of antibiotics; Z95.5 Presence of coronary angioplasty implant and graft; R20.2 Paresthesia of skin
CPT/HCPCS: 36415; 70450; 70544; 70551; 71045; 74230; 80048; 80061; 80076; 82274; 82962; 83036; 83735; 84443; 85014; 85018; 85025; 85045; 85610; 85730; 86850; 86900; 86901; 86920; 86922; 88305; 88312; 92526; 92610; 92611; 93005; 93308; 93880; 93970; 94668; 94762; 97116; 97161; 97530; 99252; 99285; J7040; J7050; J7120; P9016; A4216; G0463; J2405; J2916; J3490

== ENCOUNTER → 2023-12-24 | Outpatient (CLI) | payer BC, MEDICARE, SELFPAY ==
--- NOTE | 2023-12-24 09:15 | RAD_ITS ---
INDICATION: shortness of breath EXAMINATION/TECHNIQUE: X-RAY - XR Chest 2 Views COMPARISON: FINDINGS: LINES/DEVICES: None. LUNGS: No consolidation, edema or effusion. Mild interstitial prominence. No pneumothorax. MEDIASTINUM AND CARDIOVASCULAR STRUCTURES: Cardiac silhouette not enlarged. Central airways and mediastinal contour are unremarkable. BONES AND SOFT TISSUES: Unremarkable. RAD/Chest PA and Lateral IMPRESSION: Mild interstitial prominence. Electronically Signed: Daquan Chapman DO at 9:03 EST ,
[2023-12-24 09:43] LABS: Absolute Lymphocyte Count 2.11 X10^3/uL (0.83-4.51); Absolute Neutrophil Count 10.6 X10^3/uL (2.0-7.7); Basophil# 0.09 X10^3/uL; Basophil% 0.6 % (0-1); Eosinophil# 0.16 X10^3/uL; Eosinophils% 1.1 % (0-5); Hematocrit 23.5 % (40-54); Hemoglobin 7.1 g/dL (13.0-16.5); Lymphocyte # 2.11 X10^3/ul (0.83-4.51); Lymphocyte % 15.1 % (19-41); Mean Corp Hgb Conc 30.2 g/dL (32-36); Mean Corpuscular Volume 79.4 fL (80-94); Mean Platelet Vol. 9.8 fl (6.2-12.0); Monocyte# 0.94 X10^3/uL; Monocyte% 6.7 % (0-10); NRBC Flagged by Analyzer 0 % (0-5); Neutrophil # 10.59 X10^3/uL (2.7-7.7); Neutrophil % 75.9 % (47-70); POSITIVE MORPHOLOGY YES; Platelet Count 391 K/mm3 (150-450); RBC Distribution Width CV 26.1 % (11.6-14.6); RET-HE 28.1 pg (30-35); Red Blood Count 2.96 M/mm3 (4.6-6.2); Reticulocyte Count 1.38 % (0.5-1.5)
[2023-12-24 09:44] LABS: Differential Indicated SCAN CRITERIA MET
[2023-12-24 10:05] LABS: Anisocytosis RARE
[2023-12-24 10:11] LABS: BNP,B-Type NATRIURETIC PEPTIDE 358.7 pg/mL (0-100)
[2023-12-24 10:15] LABS: Vitamin B12 302 pg/mL (211-911)
[2023-12-24 10:26] LABS: Ferritin 82 ng/mL (26-388); Iron 24 ug/dL (65-175); Iron Binding Capacity,Total 257 ug/dL (250-450); LDH 162 U/L (87-241)
[2023-12-26 16:11] LABS: Albumin 2.7 g/dL (2.9-4.4); Alpha-1-Globulins 0.3 g/dL (0.0-0.4); Alpha-2-Globulins 1.1 g/dL (0.4-1.0); Endomysial Antibody IgA Negative (Negative); Haptoglobin 310 mg/dL (29-370); Immunoglobulin A 522 mg/dL (90-386); Immunoglobulin G 1004 mg/dL (603-1613); Immunoglobulin M 60 mg/dL (20-172); t-Transglutaminase IgA <2 U/mL (0-3)
== END | disposition home or self-care (01) ==
PROVIDERS: PCP Nurse Practitioner; Referring Provider Internal Medicine Gastroenterology; Visit Provider Internal Medicine Gastroenterology
DX: R06.02 Shortness of breath (principal); E61.1 Iron deficiency
CPT/HCPCS: 36415; 71046; 82607; 82728; 82784; 83010; 83516; 83540; 83550; 83615; 83880; 84165; 84443; 85025; 85045; 86255; 86334

== ENCOUNTER 2023-12-26 11:33 | Inpatient (IN) | payer BC, MEDICARE, SELFPAY ==
[2023-12-26] VITALS (14 sets, daily range): BP systolic 127–175; BP diastolic 45–80; PULSE 68–77; RESP 12–23; TEMP 36.2–36.8; O2SAT 89–100; BMI 24.3
--- NOTE | 2023-12-26 12:35 | RAD_ITS ---
STUDY: X-RAY CHEST REASON FOR EXAM: Male, 58 years old. Cough and shortness of breath. TECHNIQUE: PA and lateral views of the chest. COMPARISON: Comparison is made with prior study dated December 24, 2023. FINDINGS: Since prior study, there is evidence of bibasilar infiltrates worse in the right lung base. Hyperinflation. There is no demonstrated pleural abnormality. Normal size heart. Normal mediastinum and anthony. Normal visualized pulmonary arteries. Normal visualized aortic arch and descending thoracic aorta. There are diffuse degenerative changes of the visualized thoracic spine. Normal visualized ribs, clavicles, and shoulders. There is no demonstrated abnormality of the visualized soft tissue structures of the upper abdomen. RAD/Chest PA and Lateral IMPRESSION: Bibasilar infiltrates worse at the right lung base as compared to prior study. Hyperinflation. Electronically Signed: Jose Alberto Bartholomew MD at 13:04 EST ,
[2023-12-26 12:38] LABS: Absolute Lymphocyte Count 1.76 X10^3/uL (0.83-4.51); Basophil# 0.04 X10^3/uL; Basophil% 0.4 % (0-1); Eosinophil# 0.22 X10^3/uL; Eosinophils% 2.1 % (0-5); Hematocrit 16.5 % (40-54); Lymphocyte # 1.76 X10^3/ul (0.83-4.51); Lymphocyte % 16.4 % (19-41); Mean Corp Hgb Conc 30.3 g/dL (32-36); Mean Corpuscular Hgb 24.5 pg (27.0-32.0); Mean Corpuscular Volume 80.9 fL (80-94); Mean Platelet Vol. 9.3 fl (6.2-12.0); Monocyte% 5.6 % (0-10); NRBC Flagged by Analyzer 0 % (0-5); Neutrophil # 8.04 X10^3/uL (2.7-7.7); Neutrophil % 74.9 % (47-70); POSITIVE COUNT YES; POSITIVE MORPHOLOGY YES; Platelet Count 255 K/mm3 (150-450); RBC Distribution Width CV 26.2 % (11.6-14.6); RBC Distribution Width SD 75.2 fl (35.1-43.9); Red Blood Count 2.04 M/mm3 (4.6-6.2); White Blood Count 10.7 K/mm3 (4.4-11.0)
[2023-12-26 12:43] LABS: Differential Indicated SCAN CRITERIA MET
--- NOTE | 2023-12-26 12:51 | EX.ED.DYSGE1 ---
HPI History of Present Illness Chief Complaint: Abn Labs Informant: patient Narrative Narrative: Patient is a 58 year old male with complex medical history including chronic kidney disease, lupus, hypertension, GI bleeding, prior colostomy presenting from GI office for concern of worsening anemia and requirement of a blood transfusion. Patient had recent admission on 12/10/2023 for difficulty swallowing and right-sided numbness. He was found to be hypertensive and Stroke workup was largely negative. He went underwent an EGD which showed erosive esophagitis with bleeding which biopsied and treated with laser probe. He received a blood transfusion and was discharged with a hemoglobin 9.5 status post transfusion. Discharged home in 12/13. Followed up in the office and was noted to again have a hemoglobin of 7.1 he was sent to the ER for transfusion of blood products. Patient states that he has been feeling a lot more tired lately is with increased shortness of breath and dyspnea on exertion. He states his legs feel tired when he tries to walk. He has been having dark stool from his colostomy but notes his vision is not good so he is a hard time actually seen it. For the past few days he is felt he is going to pass out. He is on Plavix and aspirin. No other complaints or concerns reported at this time. [facility] Medical History Right sided numbness Dysphagia Dyslipidemia Resistant hypertension Pressure sore of left ischium, stage 3 Difficulty walking Atherosclerosis of [place] arteries of extremities with rest pain, left leg Aftercare following surgery of the circulatory system Wound, surgical, nonhealing Abdominal pain Vitamin D deficiency Hypotension Hepatitis Vitamin B12 deficiency anemia Gout Renal failure (ARF), acute on chronic Wears glasses PVD (peripheral vascular disease) Gait instability TIA (transient ischemic attack) Syncope History of echocardiogram Cardiology follow-up encounter Nicotine dependence Nonhealing skin ulcer Peripheral arterial disease Chronic kidney disease History of diverticulitis Acute kidney injury Arthritis Kidney disease Acute kidney injury superimposed on chronic kidney disease Diverticulitis Weight gain with edema DM type 2, goal HbA1c < 7.5% Malnutrition Ulcer of perineum with fat layer exposed Ulcer of scrotum Ulcer of right groin with fat layer exposed Shingles Shingles Post-operative pain Elevated serum creatinine Hemoglobin A1c greater than 8.0 percent Hypokalemia Open wound of scrotum with complication Open wound of buttock with complication Non-healing open wound of right groin Abscess, perineum Abscess of scrotal wall Abscess of right groin Complete edentulism, class III Alcohol use Diabetes Back pain History of ulceration Shortness of breath on exertion History of pain when walking History of edema Hidradenitis suppurativa of anus Suppurative hidradenitis Gastric ulcer Ulcer of perianal area with fat layer exposed Nausea and vomiting Proteinuria due to type 2 diabetes mellitus Lupus (systemic lupus erythematosus) Weakness Edema of both legs Acute post-operative pain 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 Chronic pain Hyperlipidemia Coronary artery disease Diabetes mellitus Chronic obstructive pulmonary disease Debility Colostomy in place Complicated open wound of left thigh Open wound of left buttock with complication Abscess of buttock, left Back pain due to injury History of stress test Smoker Coronary artery disease Abscess of left thigh Wound infection Cellulitis Ankle pain Ankle pain Iron deficiency anemia Ulcer of perineum with fat layer exposed Skin ulcer of scrotum Anemia of chronic disease Acute blood loss anemia Ulcer of left groin with fat layer exposed Open wound of scrotum Acute postoperative anemia due to expected blood loss Hidradenitis suppurativa of anus Hypertension Tobacco dependence syndrome Anemia Malnutrition Cough Pneumonia involving right lung Pain in the groin Hydradenitis Diabetes mellitus type 2, uncontrolled, with complications Hypertension Hyperlipidemia associated with type 2 diabetes mellitus Diabetes type 2, uncontrolled COPD (chronic obstructive pulmonary disease) Hydradenitis Home Medications ?Medication ?Instructions ?Recorded ?Last Taken ?Type guselkumab 100 mg/mL subcutaneous 100 mg subcut Q4W ARTHRITIS 04/23/22 09/26/22 History syringe (Jesus Alberto) carvedilol 25 mg tablet 25 mg PO BID #60 tabs 03/01/23 06/06/23 Rx nifedipine 90 mg tablet,extended 90 mg PO DAILY #90 tabs 05/08/23 12/25/23 Rx release 24 hr aspirin 81 mg tablet,delayed 81 mg PO DAILY 06/06/23 12/25/23 History release clopidogrel 75 mg tablet 75 mg PO DAILY #30 tabs 06/17/23 12/25/23 Rx atorvastatin 80 mg tablet 80 mg PO QHS #30 tabs 12/14/23 12/25/23 Rx hydralazine 50 mg tablet 50 mg PO TID #90 tabs 12/14/23 12/25/23 Rx pantoprazole 40 mg tablet,delayed 40 mg PO BID #60 tabs 12/14/23 12/25/23 Rx release Allergy/AdvReac Type Severity Reaction Status Date / Time Penicillins Allergy Unknown Verified 12/26/23 11:34 Sulfa (Sulfonamide Allergy Unknown Verified 12/26/23 11:34 Antibiotics) bupropion (From Wellbutrin) AdvReac Severe change in Verified 12/26/23 11:34 personality ,meanness and smoked more doxycycline AdvReac Severe Vomiting Verified 12/26/23 11:34 Family History Aunt Lung disease lung cancer Father Heart disease Hypertension Family history of high cholesterol Diabetes Mother Diabetes Daughter Epilepsy Surgical History Hx of vascular surgery History of excision of lesion History of incision and drainage History of coronary artery stent placement History of removal of cyst Hx of hernia repair History of tonsillectomy and adenoidectomy Social History household members: spouse Smoking Status: Current every day smoker tobacco type: cigarettes alcohol intake: never substance use type: does not use caffeine: Yes (7) Type: coffee additional social history: DOES NOT TAKE ASPIRIN DOES NOT TAKE IBUPROFEN ROS ROS ED Constitutional Constitutional ED: Reports other Details: Lightheaded, generalized weakness ; Denies chills or fever(s) Cardiovascular Cardiovascular: Denies chest pain Respiratory/Chest Respiratory/Chest: Reports dyspnea and dyspnea on exertion; Denies cough Gastrointestinal Gastrointestinal: Reports melena; Denies abdominal pain, nausea or vomiting Musculoskeletal Musculoskeletal: Reports myalgias Neurologic Neurologic: Reports weakness; Denies headache(s) EXAM Physical Exam Const Vital Signs: 12/26/23 11:34 Temperature 98.3 F Temperature Source Oral Pulse Rate 77 Respiratory Rate 16 Blood Pressure 161/45 H Blood Pressure Mean 83 Pulse Ox 99 Oxygen Delivery Method Room Air Constitutional Narrative: Chronically ill-appearing General Appearance ED: NAD and pallor HEENT Reports moist mucous membranes Eyes PERRL and EOMs intact bilaterally General Eye ED: Yes pale conjunctiva Neck supple and no JVD Chest Wall inspection of chest normal and palpation of chest normal Resp normal respiratory effort and clear to auscultation bilaterally Cardio regular rate and regular rhythm GI normal to inspection, nondistended, normoactive bowel sounds and non-tender GI Narrative: Colostomy in place in the left lower quadrant. Black/melanotic stool coming out Extremity normal to inspection Neuro oriented x3 Sensorium / Orientation: alert Motor Exam: general weakness Psych mental status grossly normal Skin no rashes or lesions noted General Skin Exam: pallor MDM MDM MDM Narrative Medical decision making narrative: Patient valuated for anemia on outpatient labs. He had recent mission for anemia and underwent EGD. He did have areas of gastritis that were treated the patient was placed on high-dose PPI therapy. Outpatient labs showed worsening anemia and he was sent to the ER. Hemoglobin is even worse today at 5.0. Nursing is ordered 1 unit of blood but will be ordered second of blood as well. He has worsening of his chronic kidney disease as well. Suspect he has a component of high-output heart failure, cardiorenal syndrome associated with his anemia. Case is discussed with Dr. Carlson who is aware. Patient admitted medicine service for further treatment of his anemia. Lab Data Attestation: I reviewed the patient's lab results. Labs: Laboratory Results - last 24 hr 12/26/23 12/26/23 12:17 12:17 WBC 10.7 RBC 2.04 L Hgb 5.0 L* Hct 16.5 L MCV 80.9 MCH 24.5 L MCHC 30.3 L RDW Std Deviation 75.2 H RDW Coeff of [place] 26.2 H Plt Count 255 MPV 9.3 Immature Gran % (Auto) 0.600 Neut % (Auto) 74.9 H Lymph % (Auto) 16.[address] [place] % (Auto) 5.6 Eos % (Auto) 2.1 Baso % (Auto) 0.4 Absolute Neuts (auto) 8.0 H Absolute Lymphs (auto) 1.76 Nucleated RBC % 0 Differential Comment SCANNED Diff Path Review May foll Polychromasia RARE Hypochromasia 2+ Anisocytosis 3+ Sodium 139 Potassium 4.2 Chloride 113 H Carbon Dioxide 21.0 Anion Gap 5 BUN 44 H Creatinine 3.46 H Est GFR (MDRD) Af Amer 23 L Est GFR (MDRD) Non-Af 19 L BUN/Creatinine Ratio 12.7 Glucose 303 H Calcium 8.1 L B-Natriuretic Peptide 330.1 H Blood Type A POSITIVE Antibody Screen NEGATIVE Crossmatch See Detail See Detail Radiography Diagnostic Testing: Clinical Impression(s) from Imaging Studies Chest X-Ray 12/26/23 12:35 IMPRESSION: Bibasilar infiltrates worse at the right lung base as compared to prior study. Hyperinflation. Electronically Signed: Jose Alberto Bartholomew MD at 13:04 EST , Rhythm Strip Rhythm Strip: Sinus Rhythm Rate: 66 Ectopy: None EKG Initial EKG: Attestation: I personally reviewed and interpreted this EKG as follows: Interpretation: Sinus Rhythm Comments: Normal sinus rhythm at a rate of 66 beats per minutes Normal axis LVH with repolarization abnormalities Prior EKG tracings: available for review Prior: Unchanged Management Discussion w/another healthcare provider: Hospitalist and Vice President Quality Discharge Plan Dx/Rx/DC Orders Clinical Impression: Acute on chronic blood loss anemia, Acute on chronic renal failure, GI (gastrointestinal bleed) Disposition Disposition: Acute Care Hospital [facility] Discharge Date/Time: 12/26/23 13:58
[2023-12-26 12:58] LABS: Anion Gap 5 (5-15); BUN 44 mg/dL (7-18); BUN/Creat Ratio 12.7 RATIO (10-20); Calcium,Total 8.1 mg/dL (8.5-10.1); Chloride 113 mmol/L (98-107); Creatinine, Serum 3.46 mg/dL (0.70-1.30); EST Glomerular Filtration Rate 19 mL/min (>60); Est Glom Filt Rate - Afr Amer 23 mL/min (>60); Glucose 303 mg/dL (74-106); Potassium 4.2 mmol/L (3.5-5.1); Sodium Level 139 mmol/L (136-145)
[2023-12-26 13:12] LABS: BNP,B-Type NATRIURETIC PEPTIDE 330.1 pg/mL (0-100)
--- NOTE | 2023-12-26 13:12 | EKG12_ITS ---
Test Reason : DYSP Blood Pressure : */* mmHG Vent. Rate : 66 BPM Atrial Rate : 66 BPM P-R Int : 150 ms QRS Dur : 104 ms QT Int : 448 ms P-R-T Axes : 64 32 140 degrees QTcB Int : 469 ms Normal sinus rhythm Left ventricular hypertrophy with repolarization abnormality ( Sokolow-White ) Cannot rule out Septal infarct (cited on or before 02-Oct-2022) Abnormal ECG Confirmed by LORNA RODRIGUEZ, ROSA ISELA ([id number]), news editor QASIM JUAN ([id number]) on 12/31/2023 7:48:07 AM Referred By: Confirmed By: ROSA ISELA ROTHMAN MD
[2023-12-26 13:15] LABS: Anisocytosis 3+; Differential Comment SCANNED; Hypochromasia 2+; Polychromasia RARE
--- NOTE | 2023-12-26 13:17 | PCM.HP.STD ---
[facility] - General General Date of Admission: 12/26/23 Date of Service: 12/26/23 Chief Complaint: Recurrent GI bleed with worsening anemia [facility] Narrative SVEN DUONG, is a 58 M who presented to [facility] ED on 12/26/2023 with worsening anemia presumed secondary to recurrent GI bleed. Patient was recently hospitalized here from 12/09-12/13. He presented at that time with right-sided numbness, gait difficulty, difficulty with swallowing and significant hypertension concerning for stroke. MRI brain was read as no evidence of stroke, however neurology was concerned that he had a minor stroke. MRI head/neck notably showed moderate stenosis of the ICA, occlusion of the right posterior cerebral artery and possible occlusion of the distal left vertebral artery. Patient notably was on aspirin, Plavix and high intensity statin prior to that admission given history of PAD s/p left SFA stent placement in 05/2023 and it was recommended that these be continued on discharge. During that hospitalization, patient was found to have acute on chronic anemia. EGD was done with Dr. Carlson on 12/10 and he was found to have grade D erosive esophagitis with active bleeding that was cauterized. He was transfused 1 unit of blood and hemoglobin was 9.5 on discharge on 12/13. Patient has prior history of severe hidradenitis suppurativa with chronic thigh and buttock wounds with colostomy that was placed within the last few years. Patient saw Dr. Carlson in the office on 12/23 and noted that he was feeling more tired than his normal and had slight worsening of shortness of breath with exertion. He then started to notice darker stools in his colostomy bag since an office visit. His hemoglobin came back at 7.1 on 12/23 and he was instructed to come to the ED for further evaluation. Repeat hemoglobin on arrival here was down to 5.0. Patient notably had a mild hypertension but was otherwise hemodynamically stable. 2 units of packed red blood cells were ordered and IV Protonix bolus was given. Case was discussed with Dr. Carlson who recommended admission with likely plan for EGD tomorrow. Hospitalist was then contacted for admission. I saw the patient at bedside in the ED, was present. Patient was moderately fatigued appearing and somewhat pale but otherwise laying back comfortably in bed in no acute distress. He denied any nausea or vomiting episodes recently and denied any epigastric or abdominal pain. No other acute concerns at this time. Will be admitted for further management. [facility] Medical History Right sided numbness Dysphagia Dyslipidemia Resistant hypertension Pressure sore of left ischium, stage 3 Difficulty walking Atherosclerosis of [place] arteries of extremities with rest pain, left leg Aftercare following surgery of the circulatory system Wound, surgical, nonhealing Abdominal pain Vitamin D deficiency Hypotension Hepatitis Vitamin B12 deficiency anemia Gout Renal failure (ARF), acute on chronic Wears glasses PVD (peripheral vascular disease) Gait instability TIA (transient ischemic attack) Syncope History of echocardiogram Cardiology follow-up encounter Nicotine dependence Nonhealing skin ulcer Peripheral arterial disease Chronic kidney disease History of diverticulitis Acute kidney injury Arthritis Kidney disease Acute kidney injury superimposed on chronic kidney disease Diverticulitis Weight gain with edema DM type 2, goal HbA1c < 7.5% Malnutrition Ulcer of perineum with fat layer exposed Ulcer of scrotum Ulcer of right groin with fat layer exposed Shingles Shingles Post-operative pain Elevated serum creatinine Hemoglobin A1c greater than 8.0 percent Hypokalemia Open wound of scrotum with complication Open wound of buttock with complication Non-healing open wound of right groin Abscess, perineum Abscess of scrotal wall Abscess of right groin Complete edentulism, class III Alcohol use Diabetes Back pain History of ulceration Shortness of breath on exertion History of pain when walking History of edema Hidradenitis suppurativa of anus Suppurative hidradenitis Gastric ulcer Ulcer of perianal area with fat layer exposed Nausea and vomiting Proteinuria due to type 2 diabetes mellitus Lupus (systemic lupus erythematosus) Weakness Edema of both legs Acute post-operative pain 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 Chronic pain Hyperlipidemia Coronary artery disease Diabetes mellitus Chronic obstructive pulmonary disease Debility Colostomy in place Complicated open wound of left thigh Open wound of left buttock with complication Abscess of buttock, left Back pain due to injury History of stress test Smoker Coronary artery disease Abscess of left thigh Wound infection Cellulitis Ankle pain Ankle pain Iron deficiency anemia Ulcer of perineum with fat layer exposed Skin ulcer of scrotum Anemia of chronic disease Acute blood loss anemia Ulcer of left groin with fat layer exposed Open wound of scrotum Acute postoperative anemia due to expected blood loss Hidradenitis suppurativa of anus Hypertension Tobacco dependence syndrome Anemia Malnutrition Cough Pneumonia involving right lung Pain in the groin Hydradenitis Diabetes mellitus type 2, uncontrolled, with complications Hypertension Hyperlipidemia associated with type 2 diabetes mellitus Diabetes type 2, uncontrolled COPD (chronic obstructive pulmonary disease) Hydradenitis Home Medications ?Medication ?Instructions ?Recorded ?Last Taken ?Type guselkumab 100 mg/mL subcutaneous 100 mg subcut Q4W ARTHRITIS 04/23/22 09/26/22 History syringe (Tremfya) carvedilol 25 mg tablet 25 mg PO BID #60 tabs 03/01/23 06/06/23 Rx nifedipine 90 mg tablet,extended 90 mg PO DAILY #90 tabs 05/08/23 12/25/23 Rx release 24 hr aspirin 81 mg tablet,delayed 81 mg PO DAILY 06/06/23 12/25/23 History release clopidogrel 75 mg tablet 75 mg PO DAILY #30 tabs 06/17/23 12/25/23 Rx atorvastatin 80 mg tablet 80 mg PO QHS #30 tabs 12/14/23 12/25/23 Rx hydralazine 50 mg tablet 50 mg PO TID #90 tabs 12/14/23 12/25/23 Rx pantoprazole 40 mg tablet,delayed 40 mg PO BID #60 tabs 12/14/23 12/25/23 Rx release Allergy/AdvReac Type Severity Reaction Status Date / Time Penicillins Allergy Unknown Verified 12/26/23 11:34 Sulfa (Sulfonamide Allergy Unknown Verified 12/26/23 11:34 Antibiotics) bupropion (From Wellbutrin) AdvReac Severe change in Verified 12/26/23 11:34 personality ,meanness and smoked more doxycycline AdvReac Severe Vomiting Verified 12/26/23 11:34 Family History Aunt Lung disease lung cancer Father Heart disease Hypertension Family history of high cholesterol Diabetes Mother Diabetes Daughter Epilepsy Surgical History Hx of vascular surgery History of excision of lesion History of incision and drainage History of coronary artery stent placement History of removal of cyst Hx of hernia repair History of tonsillectomy and adenoidectomy Social History household members: spouse Smoking Status: Current every day smoker tobacco type: cigarettes alcohol intake: never substance use type: does not use caffeine: Yes (7) Type: coffee additional social history: DOES NOT TAKE ASPIRIN DOES NOT TAKE IBUPROFEN ROS Constitutional Constitutional: Reports fatigue and weakness; Denies chills or fever(s) Cardiovascular Cardiovascular: Reports dyspnea on exertion; Denies chest pain Respiratory/Chest Respiratory/Chest: Denies cough or shortness of breath at rest Gastrointestinal Gastrointestinal: Reports melena; Denies abdominal pain, constipation, nausea or vomiting Musculoskeletal Musculoskeletal: Denies arthralgias or myalgias Vital Signs Vital Signs Vital Signs: 12/26/23 11:34 Temperature 98.3 F Temperature Source Oral Pulse Rate 77 Respiratory Rate 16 Blood Pressure 161/45 H Blood Pressure Mean 83 Pulse Ox 99 Oxygen Delivery Method Room Air Physical Exam Const alert, oriented x3, no apparent distress and average body habitus Constitutional Narrative: Middle-age male, appears older than stated age, chronically ill-appearing, somewhat pale and moderately fatigued appearing, otherwise laying back comfortably in bed, conversing normally, in no acute distress. General Appearance: cooperative and comfortable HEENT normocephalic, head/scalp atraumatic, hearing grossly normal bilaterally and nasal mucous membranes and turbinates normal Eyes PERRL, EOMs intact bilaterally and conjunctivae normal Neck full ROM Chest inspection of chest normal Resp normal respiratory effort, normal air movement, no use of accessory muscles and clear to auscultation bilaterally Cardio regular rate, regular rhythm, no murmurs and peripheral pulses 2+ throughout GI normal to inspection, nondistended, normoactive bowel sounds, soft to palpation, non-tender and non-distended Back/Spine normal ROM Extremity normal to inspection and no pedal edema Psych mental status grossly normal Psych Narrative: Flat affect. Results Lab / Micro Data 12/26/23 12:17 12/26/23 12:17 Labs: Laboratory Results - last 24 hr 12/26/23 12:17: WBC 10.7, RBC 2.04 L, Hgb 5.0 L*, Hct 16.5 L, MCV 80.9, MCH 24.5 L, MCHC 30.3 L, RDW Std Deviation 75.2 H, RDW Coeff of [place] 26.2 H, Plt Count 255, MPV 9.3, Immature Gran % (Auto) 0.600, Neut % (Auto) 74.9 H, Lymph % (Auto) 16.4 L, [place] % (Auto) 5.6, Eos % (Auto) 2.1, Baso % (Auto) 0.4, Absolute Neuts (auto) 8.0 H, Absolute Lymphs (auto) 1.76, Nucleated RBC % 0, Differential Comment SCANNED, Diff Path Review May , Polychromasia RARE, Hypochromasia 2+, Anisocytosis 3+, Sodium 139, Potassium 4.2, Chloride 113 H, Carbon Dioxide 21.0, Anion Gap 5, BUN 44 H, Creatinine 3.46 H, Est GFR (MDRD) Af Amer 23 L, Est GFR (MDRD) Non-Af 19 L, BUN/Creatinine Ratio 12.7, Glucose 303 H, Calcium 8.1 L, B-Natriuretic Peptide 330.1 H, Crossmatch See Detail Imaging Radiology Impression Chest X-Ray 12/26/23 12:35 IMPRESSION: Bibasilar infiltrates worse at the right lung base as compared to prior study. Hyperinflation. Electronically Signed: Jose Alberto Bartholomew MD at 13:04 EST , Assessment & Plan Assessment/Plan (1) Acute on chronic blood loss anemia: (2) Recurrent gastrointestinal hemorrhage: PLAN: Plan Patient is a 58-year-old male who presented to [facility] ED on 12/26/2023 with worsening anemia presumed secondary to recurrent GI bleed. 1. Acute on chronic anemia presumed secondary to recurrent upper GI bleed ? Admit under inpatient status to PCU. GI consulted. Hemoglobin 5.0 on admit, down from 7.1 on 12/23. Patient reporting melanotic stools in his colostomy bag. EGD on 12/10 showed grade D erosive esophagitis with active bleeding that was cauterized. Patient was continued on aspirin and Plavix due to recent peripheral stent placed in May as noted below. IV Protonix bolus given in ED and will start an IV PPI twice daily. Okay for clear liquids for now, n.p.o. at midnight with likely plan for upper scope tomorrow. Hold aspirin and Plavix for tomorrow morning; will need discussion with GI and vascular surgery regarding plan for antiplatelet therapy going forward. Will give 2 units of packed red blood cells on admit, follow-up posttransfusion CBC and a.m. CBC tomorrow. 2. History of PAD s/p left SFA stent placement ? Had left SFA stent placed with Dr. Jeffries on 06/05. Has been on aspirin and Plavix since then. Will need to discuss antiplatelet therapy prior to this discharge as noted above. 3. Recent history of suspected CVA with moderate bilateral carotid stenosis ? Recent hospitalization from 12/09-12/13 where he presented with right arm numbness. MRI brain called as no stroke but neurology thought left medullary brain area showed possible diffusion restriction concerning for stroke. Neurology suspected likely atherosclerotic stroke and noted patient only needs single antiplatelet therapy from a stroke perspective going forward. Will need to take this into consideration for antiplatelet therapy discussion noted above. 4. Mild creatinine elevation in setting of CKD stage IV ? Creatinine 3.46 on admit, baseline appears to be around 2.5-3.0. Mild elevation very likely prerenal due to acute on chronic anemia noted above. Follow-up a.m. BMP after blood transfusion and monitor urine output. 5. Type 2 diabetes mellitus with hyperglycemia ? Blood glucose 303 on admit. Most recent hemoglobin A1c 6.8% on 12/10. Appears the patient is a diet-controlled diabetic currently. Will treat with sliding scale insulin with meals while inpatient. 6. History of nonobstructive CAD, hypertension, hyperlipidemia ? Patient has history of resistant hypertension, was mildly hypertensive to 160 systolic in the ED. Will hold home carvedilol for now to monitor for tachycardia that could indicate worsening GI bleed. Okay to continue home hydralazine and nifedipine. Continue home statin. 7. History of severe hidradenitis suppurativa with chronic thigh and buttock wounds s/p colostomy placement ? Has followed with plastic surgery for these chronic wounds in the past. Unclear on exact timing of colostomy placement but appears this was within the last few years. No inpatient needs with this, continue outpatient follow-up. 8. Arthritis ? Stable. Continue Tremfya injections every 4 weeks outpatient. DVT prophylaxis: SCDs CODE STATUS: Full code, verified Expected disposition: Home, 2 to 3 days Total clinical time spent by myself addressing the patient's medical issues, reviewing all the data, and collaborating with patient's care team: 75 minutes. Charges/Coding Visit Charges Inpatient E&M: 35286 Init Hosp L3
[2023-12-26] MEDS: Pantoprazole Sodium 80 MG in 0.9% Normal Saline (50mL Bag) 15 ML 420 MG IV BOLUS (13:47)
[2023-12-26] MEDS: Electrolyte Solution/Peg's 4000 ML PO (18:38)
[2023-12-26] MEDS: Furosemide 20 MG/2 ML VIAL IV (18:38)
[2023-12-26] MEDS: Atorvastatin Calcium 80 MG Tablet PO (22:50)
[2023-12-26] MEDS: hydrALAZINE 50 MG Tablet PO (22:50)
[2023-12-26] MEDS: Pantoprazole Sodium 40 MG in 0.9% Normal Saline (100mL MB+) 100 ML 330 MG IV (22:52)
[2023-12-27] VITALS (18 sets, daily range): BP systolic 120–185; BP diastolic 50–82; PULSE 62–78; RESP 17–24; TEMP 36.1–37.2; O2SAT 95–100
--- NOTE | 2023-12-27 00:07 | PCM.HOSP.N ---
Hospitalist Note Increased oxygen needs, crackles following 2nd u PRBC, will dose again with lasix 20 mg IV x 1. Reviewed recent ECHO and no marked findings noted.
[2023-12-27] MEDS: Furosemide 20 MG/2 ML VIAL IV ×2 (00:28→18:37)
[2023-12-27] MEDS: 0.9% Saline Lock 10 ML Syringe IV (00:29)
[2023-12-27 00:44] LABS: Bedside Glucose 168 mg/dL (74-106)
[2023-12-27] MEDS: Budesonide Respules 0.5 MG/2 ML AMPUL.NEB. INHALATION (04:38)
[2023-12-27] MEDS: Albuterol 2.5 MG/3 ML VIAL.NEB. INHALATION (04:38)
[2023-12-27] MEDS: hydrALAZINE 50 MG Tablet PO ×3 (05:50→22:54)
[2023-12-27 06:15] LABS: Hematocrit 25.3 % (40-54); Mean Corp Hgb Conc 31.6 g/dL (32-36); Mean Corpuscular Hgb 25.8 pg (27.0-32.0); Mean Corpuscular Volume 81.6 fL (80-94); Mean Platelet Vol. 9.5 fl (6.2-12.0); POSITIVE MORPHOLOGY YES; Platelet Count 322 K/mm3 (150-450); RBC Distribution Width CV 21.8 % (11.6-14.6); RBC Distribution Width SD 65.2 fl (35.1-43.9); White Blood Count 16.4 K/mm3 (4.4-11.0)
[2023-12-27 06:25] LABS: Prothrombin Time (Protime)PT. 13.1 SECONDS (11.7-14.9)
[2023-12-27 06:26] LABS: Partial Thromboplast Time 34.4 Seconds (24.1-36.2)
[2023-12-27 06:28] LABS: Scan Indicated on CBC? Y/N YES- FLAGS NOTED
[2023-12-27 06:37] LABS: Anion Gap 6 (5-15); BUN 41 mg/dL (7-18); BUN/Creat Ratio 12.9 RATIO (10-20); Calcium,Total 8.7 mg/dL (8.5-10.1); Chloride 110 mmol/L (98-107); Creatinine, Serum 3.18 mg/dL (0.70-1.30); EST Glomerular Filtration Rate 21 mL/min (>60); Est Glom Filt Rate - Afr Amer 26 mL/min (>60); Glucose 143 mg/dL (74-106); Potassium 4.3 mmol/L (3.5-5.1); Sodium Level 137 mmol/L (136-145)
[2023-12-27 06:46] LABS: AST(SGOT) 10 U/L (15-37); Alanine Aminotransfer ALT/SGPT 13 U/L (16-61)
[2023-12-27 07:07] LABS: Bedside Glucose 146 mg/dL (74-106)
[2023-12-27 07:44] LABS: Hemoglobin A1c 6.4 % (3.8-5.6)
[2023-12-27 09:49] LABS: Differential Comment SCANNED
[2023-12-27 10:01] LABS: Pathologist Review Reviewed
[2023-12-27] MEDS: NIFEdipine 90 MG Tablet PO (10:21)
[2023-12-27] MEDS: Pantoprazole Sodium 40 MG in 0.9% Normal Saline (100mL MB+) 100 ML 330 MG IV ×2 (10:21→23:04)
--- NOTE | 2023-12-27 10:48 | EX.PCM.CONCC ---
Assessment & Plan Assessment/Plan (1) GI (gastrointestinal bleed): PLAN: Plan RECOMMENDATIONS: 1. Start empiric antimicrobials and obtain sputum for culture. 2. Agree with scheduled bronchodilators and steroids as ordered. 3. Consider initiation of gentle diuresis, as tolerated by hemodynamics and renal function. 4. Transfuse blood products to maintain a hemoglobin at or above 7 g/dL. 5. Recommend GI reevaluation for possible endoscopy, once medically stabilized. 6. Continue PPI therapy. 7. Encourage incentive spirometer use and mobilize patient as tolerated. IMPRESSIONS: 1. Acute hypoxemic respiratory failure The patient initially presented to the hospital with blood loss anemia and has received supplemental IV fluids and transfusion of blood products. I strongly suspect that he may have an underlying component of COPD, given his extensive tobacco abuse history. In addition, his admitting chest x-ray demonstrated vague bibasilar infiltrates, which coupled with his reported cough of sputum production could be patient services representative of pneumonia. In addition, the patient may have a slight component of volume overload from his transfusion of blood products and supplemental IV fluids. At this time, recommend initiating empiric antibiotics and obtaining sputum for culture. The patient has already been initiated on bronchodilator therapy and IV steroids. Lastly, recommend gentle diuresis, as tolerated by hemodynamics and renal function. Ultimately, the patient would benefit from outpatient pulmonary follow-up so that baseline PFTs can be obtained. In addition, given his tobacco abuse history and age, he would be a candidate for yearly low-dose CT screening. 2. Acute blood loss anemia with history of recurrent GI bleed Transfuse blood products as ordered. Check H&H posttransfusion. Continue PPI therapy. Recommend consultation to gastroenterology be placed so that repeat endoscopic evaluation can be considered. 3. History of CVA/peripheral arterial disease/diabetes mellitus/coronary artery disease/chronic tobacco dependency Complicates care, management, recovery and prognosis. Continue supportive measures as noted above. Recommend outpatient pulmonary follow-up after discharge. Smoking cessation is advisable. This note was generated with [employer] software. It may contain incorrect words, spelling, and punctuation that were not noted in checking the note before signing. HPI Consult Data Date of Consult: 12/27/23 HPI Narrative Reason for Consultation: Respiratory failure with hypoxemia HPI Narrative: The patient is a 58-year-old male, with a history as outlined below, who presented to the emergency department on December 25 with worsening fatigue, shortness of breath and anemia. The patient was recently hospitalized December 09 through December 13 with symptoms concerning for stroke. MRI brain was read as no evidence of stroke, however neurology was concerned that he had a minor stroke. MRI head/neck notably showed moderate stenosis of the ICA, occlusion of the right posterior cerebral artery and possible occlusion of the distal left vertebral artery. Patient notably was on aspirin, Plavix and high intensity statin prior to that admission given history of PAD s/p left SFA stent placement in 05/2023 and it was recommended that these be continued on discharge. EGD completed during that hospitalization demonstrated erosive esophagitis with active bleeding that was cauterized. The patient then followed up with gastroenterology in their office on December 23, at which time, repeat lab work was ordered. The patient was noted to have a hemoglobin of 7.1 g/dL. On presentation to the emergency department, the patient was documented to be afebrile hemodynamically stable. He was initially documented to be saturating 99% on room air. Laboratory evaluation revealed a normal white blood cell count with a hemoglobin of 5.0 g/dL. Coagulation profile was unremarkable. Chemistry profile was notable for a creatinine of 3.46. BNP was elevated at 330. Chest x-ray demonstrated bibasilar infiltrates. The patient was subsequently admitted to the progressive care unit, where he has received transfusion of blood products, supplemental IV fluids, scheduled bronchodilators and IV steroids. He remains on 10 L/min of supplemental oxygen. The patient did report to me that he has a [id number] smoking history and continues to smoke 1 pack of cigarettes per day. He is currently on disability. He has never been evaluated by a dock superintendent, nor has he ever completed pulmonary function studies. He does not utilize supplemental oxygen at his baseline, nor is he utilizing any maintenance inhalers. He does report that over the course of the last week he has developed a cough which has been productive of sputum. [facility]LY [facility] Medical History Right sided numbness Dysphagia Dyslipidemia Resistant hypertension Pressure sore of left ischium, stage 3 Difficulty walking Atherosclerosis of burns paiute arteries of extremities with rest pain, left leg Aftercare following surgery of the circulatory system Wound, surgical, nonhealing Abdominal pain Vitamin D deficiency Hypotension Hepatitis Vitamin B12 deficiency anemia Gout Renal failure (ARF), acute on chronic Wears glasses PVD (peripheral vascular disease) Gait instability TIA (transient ischemic attack) Syncope History of echocardiogram Cardiology follow-up encounter Nicotine dependence Nonhealing skin ulcer Peripheral arterial disease Chronic kidney disease History of diverticulitis Acute kidney injury Arthritis Kidney disease Acute kidney injury superimposed on chronic kidney disease Diverticulitis Weight gain with edema DM type 2, goal HbA1c < 7.5% Malnutrition Ulcer of perineum with fat layer exposed Ulcer of scrotum Ulcer of right groin with fat layer exposed Shingles Shingles Post-operative pain Elevated serum creatinine Hemoglobin A1c greater than 8.0 percent Hypokalemia Open wound of scrotum with complication Open wound of buttock with complication Non-healing open wound of right groin Abscess, perineum Abscess of scrotal wall Abscess of right groin Complete edentulism, class III Alcohol use Diabetes Back pain History of ulceration Shortness of breath on exertion History of pain when walking History of edema Hidradenitis suppurativa of anus Suppurative hidradenitis Gastric ulcer Ulcer of perianal area with fat layer exposed Nausea and vomiting Proteinuria due to type 2 diabetes mellitus Lupus (systemic lupus erythematosus) Weakness Edema of both legs Acute post-operative pain 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 Chronic pain Hyperlipidemia Coronary artery disease Diabetes mellitus Chronic obstructive pulmonary disease Debility Colostomy in place Complicated open wound of left thigh Open wound of left buttock with complication Abscess of buttock, left Back pain due to injury History of stress test Smoker Coronary artery disease Abscess of left thigh Wound infection Cellulitis Ankle pain Ankle pain Iron deficiency anemia Ulcer of perineum with fat layer exposed Skin ulcer of scrotum Anemia of chronic disease Acute blood loss anemia Ulcer of left groin with fat layer exposed Open wound of scrotum Acute postoperative anemia due to expected blood loss Hidradenitis suppurativa of anus Hypertension Tobacco dependence syndrome Anemia Malnutrition Cough Pneumonia involving right lung Pain in the groin Hydradenitis Diabetes mellitus type 2, uncontrolled, with complications Hypertension Hyperlipidemia associated with type 2 diabetes mellitus Diabetes type 2, uncontrolled COPD (chronic obstructive pulmonary disease) Hydradenitis Home Medications ?Medication ?Instructions ?Recorded ?Last Taken ?Type guselkumab 100 mg/mL subcutaneous 100 mg subcut Q4W ARTHRITIS 04/23/22 09/26/22 History syringe (Jesus Alberto) carvedilol 25 mg tablet 25 mg PO BID #60 tabs 03/01/23 06/06/23 Rx nifedipine 90 mg tablet,extended 90 mg PO DAILY #90 tabs 05/08/23 12/25/23 Rx release 24 hr aspirin 81 mg tablet,delayed 81 mg PO DAILY 06/06/23 12/25/23 History release clopidogrel 75 mg tablet 75 mg PO DAILY #30 tabs 06/17/23 12/25/23 Rx atorvastatin 80 mg tablet 80 mg PO QHS #30 tabs 12/14/23 12/25/23 Rx hydralazine 50 mg tablet 50 mg PO TID #90 tabs 12/14/23 12/25/23 Rx pantoprazole 40 mg tablet,delayed 40 mg PO BID #60 tabs 12/14/23 12/25/23 Rx release Allergy/AdvReac Type Severity Reaction Status Date / Time Penicillins Allergy Unknown Verified 12/26/23 11:34 Sulfa (Sulfonamide Allergy Unknown Verified 12/26/23 11:34 Antibiotics) bupropion (From Wellbutrin) AdvReac Severe change in Verified 12/26/23 11:34 personality ,meanness and smoked more doxycycline AdvReac Severe Vomiting Verified 12/26/23 11:34 Family History Aunt Lung disease lung cancer Father Heart disease Hypertension Family history of high cholesterol Diabetes Mother Diabetes Daughter Epilepsy Surgical History Hx of vascular surgery History of excision of lesion History of incision and drainage History of coronary artery stent placement History of removal of cyst Hx of hernia repair History of tonsillectomy and adenoidectomy Social History household members: spouse Smoking Status: Current every day smoker tobacco type: cigarettes alcohol intake: never substance use type: does not use caffeine: Yes (7) Type: coffee additional social history: DOES NOT TAKE ASPIRIN DOES NOT TAKE IBUPROFEN ROS ROS Narrative 10 systems were reviewed with pertinent positives as noted in the HPI above. Physical Exam Const alert and no apparent distress General Appearance: cooperative HEENT normocephalic and head/scalp atraumatic Eyes PERRL, EOMs intact bilaterally and conjunctivae normal Neck supple General: trachea midline Chest inspection of chest normal Resp normal respiratory effort Auscultation: wheezes and diminished lung sounds Cardio regular rate and regular rhythm GI normal to inspection, nondistended, normoactive bowel sounds Extremity no clubbing, cyanosis or edema Skin no rashes or lesions noted Neuro CN's II-XII intact bilaterally, moves all extremities and no focal motor deficits Psych Mood & Affect: flat affect Lab / Micro Data 12/27/23 05:14 12/27/23 05:14 Labs: Laboratory Results - last 24 hr 12/26/23 12:17: WBC 10.7, RBC 2.04 L, Hgb 5.0 L*, Hct 16.5 L, MCV 80.9, MCH 24.5 L, MCHC 30.3 L, RDW Std Deviation 75.2 H, RDW Coeff of Dana 26.2 H, Plt Count 255, MPV 9.3, Immature Gran % (Auto) 0.600, Neut % (Auto) 74.9 H, Lymph % (Auto) 16.4 L, Stephenson % (Auto) 5.6, Eos % (Auto) 2.1, Baso % (Auto) 0.4, Absolute Neuts (auto) 8.0 H, Absolute Lymphs (auto) 1.76, Nucleated RBC % 0, Differential Comment SCANNED, Diff Path Review Reviewed, Polychromasia RARE, Hypochromasia 2+, Anisocytosis 3+, Sodium 139, Potassium 4.2, Chloride 113 H, Carbon Dioxide 21.0, Anion Gap 5, BUN 44 H, Creatinine 3.46 H, Est GFR (MDRD) Af Amer 23 L, Est GFR (MDRD) Non-Af 19 L, BUN/Creatinine Ratio 12.7, Glucose 303 H, Calcium 8.1 L, B-Natriuretic Peptide 330.1 H, Blood Type A POSITIVE, Antibody Screen NEGATIVE, Crossmatch See Detail 12/26/23 12:17: Crossmatch See Detail 12/26/23 23:51: POC Glucose 168 H 12/27/23 05:14: WBC 16.4 H, RBC 3.10 L, Hgb 8.0 L, Hct 25.3 L, MCV 81.6, MCH 25.8 L, MCHC 31.6 L, RDW Std Deviation 65.2 H, RDW Coeff of Dana 21.8 H, Plt Count 322, MPV 9.5, Differential Comment SCANNED, PT 13.1, INR 1.0, APTT 34.4, Sodium 137, Potassium 4.3, Chloride 110 H, Carbon Dioxide 21.0, Anion Gap 6, BUN 41 H, Creatinine 3.18 H, Estim Creat Clear Calc 23.90, Est GFR (MDRD) Af Amer 26 L, Est GFR (MDRD) Non-Af 21 L, BUN/Creatinine Ratio 12.9, Glucose 143 H, Hemoglobin A1c 6.4 H, Calcium 8.7, AST 10 L, ALT 13 L 12/27/23 05:48: POC Glucose 146 H Micro: Microbiology 12/27/23 09:20 Mucosa - Nose Coronavirus COVID-19 PCR - Final Rhythm Strip Rhythm Strip: Sinus Rhythm Rate: 66 Ectopy: None Imaging Radiology Impression Chest X-Ray 12/26/23 12:35 IMPRESSION: Bibasilar infiltrates worse at the right lung base as compared to prior study. Hyperinflation. Electronically Signed: Jose Alberto Bartholomew MD at 13:04 EST , Charges/Coding Visit Charges Inpatient E&M: 71786 Init Hosp L3
[2023-12-27] MEDS: Ipratropium/Albuterol Sulfate 3 ML AMPUL.NEB INHALATION ×3 (11:10→19:55)
[2023-12-27 11:20] LABS: BNP,B-Type NATRIURETIC PEPTIDE 309.1 pg/mL (0-100)
[2023-12-27 11:29] LABS: Procalcitonin 0.23 ng/mL (0.00-0.09)
[2023-12-27 11:54] LABS: Bedside Glucose 142 mg/dL (74-106)
[2023-12-27] MEDS: Carvedilol 25 MG Tablet PO ×2 (13:40→22:54)
[2023-12-27] MEDS: Meropenem 1 GM in 0.9% Normal Saline (100mL MB+) 100 ML IV ×2 (13:40→23:37)
--- NOTE | 2023-12-27 14:56 | PN.HOSP_ITS ---
Reason for Visit Reason for Visit: Diagnoses Acute posthemorrhagic anemia (12/26/23) Gastrointestinal hemorrhage, unspecified (12/26/23) Subjective Subjective Patient was seen and examined today, he has required 10 L via high flow nasal cannula today to maintain his pulse ox. Patient had expiratory wheezing and rhonchi bilaterally, I had pulmonary medicine see him for evaluation and further recommendations. Patient has an H&H pending this afternoon, due to his tenuous respiratory status at this time I have elected to cancel his EGD today. Objective Data Objective Data Vital Signs: Vital Signs Temp Pulse Resp BP Pulse Ox O2 Del Method O2 Flow Rate 98.7 F 56 L 23 H 136/74 H 99 Room Air 10 12/27/23 14:15 12/27/23 14:15 12/27/23 14:15 12/27/23 14:15 12/27/23 14:15 12/27/23 14:15 12/27/23 13:37 Oxygen Flow Rate (L/min) 10 Oxygen Delivery Method Room Air Weight: 72.4 kg Body Mass Index (BMI) 24.3 Intake & Output: Intake and Output for Last 24 Hours 12/25/23 12/26/23 12/27/23 23:59 23:59 23:59 Intake Total 1385 / 1835 1010 / 1010 Output Total 350 / 350 Balance 1035 / 1485 1010 / 1010 Lab / Micro Data 12/27/23 05:14 12/27/23 05:14 Labs: Laboratory Results - last 24 hr 12/26/23 12:17: Diff Path Review Reviewed, Blood Type A POSITIVE, Antibody Screen NEGATIVE, Crossmatch See Detail 12/26/23 12:17: Crossmatch See Detail 12/26/23 23:51: POC Glucose 168 H 12/27/23 05:14: WBC 16.4 H, RBC 3.10 L, Hgb 8.0 L, Hct 25.3 L, MCV 81.6, MCH 25.8 L, MCHC 31.6 L, RDW Std Deviation 65.2 H, RDW Coeff of Dana 21.8 H, Plt Count 322, MPV 9.5, Differential Comment SCANNED, PT 13.1, INR 1.0, APTT 34.4, Sodium 137, Potassium 4.3, Chloride 110 H, Carbon Dioxide 21.0, Anion Gap 6, BUN 41 H, Creatinine 3.18 H, Estim Creat Clear Calc 23.90, Est GFR (MDRD) Af Amer 26 L, Est GFR (MDRD) Non-Af 21 L, BUN/Creatinine Ratio 12.9, Glucose 143 H, H emoglobin A1c 6.4 H, Calcium 8.7, AST 10 L, ALT 13 L, B-Natriuretic Peptide 309.1 H, Procalcitonin 0.23 H 12/27/23 05:48: POC Glucose 146 H 12/27/23 11:35: POC Glucose 142 H Micro: Microbiology 12/27/23 09:20 Mucosa - Nose Respiratory Panel (PCR) - Final 12/27/23 09:20 Mucosa - Nose Coronavirus COVID-19 PCR - Final Rhythm Strip Rhythm Strip: Sinus Rhythm Rate: 66 Ectopy: None Physical Exam Const alert and oriented x3 Constitutional Narrative: Patient appears older than the stated age, he appears cachectic General Appearance: cooperative and well developed Orientation / Consciousness: awake, oriented to person, oriented to place and oriented to time HEENT normocephalic, head/scalp atraumatic and moist oral mucous membranes Eyes PERRL, EOMs intact bilaterally and conjunctivae normal Neck supple, no JVD, thyroid normal and no carotid bruits General: trachea midline Resp Resp Narrative: Patient has expiratory rhonchi and wheezes bilaterally, respiratory rate is 21, patient appears comfortable at rest Auscultation: rhonchi throughout and wheezes throughout; Negative for rales Cardio regular rate, regular rhythm, S1 normal heart sound, S2 normal heart sound, no murmurs, no rub and no gallops Cardio Narrative: Heart rate and rhythm is tachycardic GI normal to inspection, nondistended, normoactive bowel sounds, soft to palpation, non-tender and non-distended Extremity no clubbing, cyanosis or edema Skin no rashes or lesions noted General Skin Exam: no breakdown Neuro oriented x3, CN's II-XII intact bilaterally, no focal motor deficits and no sensory deficits noted Sensorium / Orientation: awake and alert Speech: speech normal Psych affect normal Assessment & Plan Assessment/Plan (1) GI (gastrointestinal bleed): PLAN: Plan 1. Acute anemia believed to be secondary from GI tract blood loss-patient will not be able to undergo an endoscopy today due to his respiratory status, he may need to have 1 performed tomorrow or Saturday. Patient will be placed on clear liquids if his hemoglobin is stable this afternoon. Continue to monitor hemoglobin. Patient will be seen in consultation by gastroenterology, continue IV PPI administration #2 hypoxic respiratory [id number] unclear, patient had a respiratory panel ordered, pulmonary medicine recommended placing the patient on IV antibiotics for now until the etiology of the respiratory failure is understood. Patient will continue on aerosol treatments and IV corticosteroids, pulse ox will be monitored #3 chronic obstructive pulmonary disease-again patient was placed on IV corticosteroids and will receive aerosol treatments. #4 coronary artery disease-due to his suspected upper GI bleed, patient will remain off aspirin and Plavix at this time #5 essential hypertension-patient will remain on his home medications, they will be adjusted as needed Total clinical time spent by myself addressing the patient's medical issues, reviewing all of his data, and collaborating with patient's care team: 50 minutes Charges/Coding Visit Charges Inpatient E&M: [id number] [facility] Hosp L3
[2023-12-27 15:20] LABS: Hemoglobin 7.4 g/dL (13.0-16.5)
--- NOTE | 2023-12-27 15:20 | CASEMGMT ---
SOLANGE NATARAJAN chart review: Patient was admitted 12/11-12/14/23 for Severe Anemia, GI bleed, and CVA. See assessment from 12/13/23. Patient was discharged to home with script for outpatient therapy. Patient returned to [facility] ED on 12/26/[address] Carlson's office after abnormal labs showing hgb of 5.0. Patient admitted and received 2 untis of PRBC and then developed increased oxygen needs requiring 10lpm. SOLANGE CM in to discuss readmission and needs at discharge. Patient anticipated by hospitalist to stay through the weekend. Patient states he was taking medications as prescribed. Attended his follow-up appt with Dr. Carlson. PCP appt is scheduled for 01/03/24, and neuro appt scheduled with Dr. Gomez on 01/20/24. Patient anticipates discharge home with family support. CM to monitor for home oxygen needs at discharge and possible therapy needs at discharge. Patient denied further questions or concerns at this time. CM will continue to follow this patient and plan for a safe discharge.
[2023-12-27] MEDS: Insulin Lispro 100 UNIT/ML INSULN.PEN SC ×2 (16:09→22:58)
[2023-12-27 17:22] LABS: Bedside Glucose 293 mg/dL (74-106)
--- NOTE | 2023-12-27 17:46 | EX.PCM.CON.G ---
HPI Consult Data Date of Consult: 12/27/23 HPI Narrative Reason for Consultation: Possible GI bleed HPI Narrative: SVEN DUONG, is a 58 M who presented to [facility] ED on 12/26/2023 with worsening anemia presumed secondary to recurrent GI bleed. Patient was recently hospitalized here from 12/09-12/13. He presented at that time with right-sided numbness, gait difficulty, difficulty with swallowing and significant hypertension concerning for stroke. MRI brain was read as no evidence of stroke, however neurology was concerned that he had a minor stroke. MRI head/neck notably showed moderate stenosis of the ICA, occlusion of the right posterior cerebral artery and possible occlusion of the distal left vertebral artery. Patient notably was on aspirin, Plavix and high intensity statin prior to that admission given history of PAD s/p left SFA stent placement in 05/2023 and it was recommended that these be continued on discharge. During that hospitalization, patient was found to have acute on chronic anemia. EGD was done by myself on 12/10 and he was found to have grade D erosive esophagitis with active bleeding that was cauterized. He was transfused 1 unit of blood and hemoglobin was 9.5 on discharge on 12/13. Patient has prior history of severe hidradenitis suppurativa with chronic thigh and buttock wounds with colostomy that was placed within the last few years. I saw the patient in the office on 12/23 and noted that he was feeling more tired than his normal and had slight worsening of shortness of breath with exertion. He then started to notice darker stools in his colostomy bag since an office visit. His hemoglobin came back at 7.1 on 12/23 and he was instructed to come to the ED for further evaluation. Repeat hemoglobin on arrival here was down to 5.0. Patient notably had a mild hypertension but was otherwise hemodynamically stable. 2 units of packed red blood cells were ordered and IV Protonix bolus was given. I recommended that he have an EGD and evaluation of his colon to his colostomy.. He became hemodynamically unstable today so the procedure was put on hold. [facility] Medical History Right sided numbness Dysphagia Dyslipidemia Resistant hypertension Pressure sore of left ischium, stage 3 Difficulty walking Atherosclerosis of [place] arteries of extremities with rest pain, left leg Aftercare following surgery of the circulatory system Wound, surgical, nonhealing Abdominal pain Vitamin D deficiency Hypotension Hepatitis Vitamin B12 deficiency anemia Gout Renal failure (ARF), acute on chronic Wears glasses PVD (peripheral vascular disease) Gait instability TIA (transient ischemic attack) Syncope History of echocardiogram Cardiology follow-up encounter Nicotine dependence Nonhealing skin ulcer Peripheral arterial disease Chronic kidney disease History of diverticulitis Acute kidney injury Arthritis Kidney disease Acute kidney injury superimposed on chronic kidney disease Diverticulitis Weight gain with edema DM type 2, goal HbA1c < 7.5% Malnutrition Ulcer of perineum with fat layer exposed Ulcer of scrotum Ulcer of right groin with fat layer exposed Shingles Shingles Post-operative pain Elevated serum creatinine Hemoglobin A1c greater than 8.0 percent Hypokalemia Open wound of scrotum with complication Open wound of buttock with complication Non-healing open wound of right groin Abscess, perineum Abscess of scrotal wall Abscess of right groin Complete edentulism, class III Alcohol use Diabetes Back pain History of ulceration Shortness of breath on exertion History of pain when walking History of edema Hidradenitis suppurativa of anus Suppurative hidradenitis Gastric ulcer Ulcer of perianal area with fat layer exposed Nausea and vomiting Proteinuria due to type 2 diabetes mellitus Lupus (systemic lupus erythematosus) Weakness Edema of both legs Acute post-operative pain 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 Chronic pain Hyperlipidemia Coronary artery disease Diabetes mellitus Chronic obstructive pulmonary disease Debility Colostomy in place Complicated open wound of left thigh Open wound of left buttock with complication Abscess of buttock, left Back pain due to injury History of stress test Smoker Coronary artery disease Abscess of left thigh Wound infection Cellulitis Ankle pain Ankle pain Iron deficiency anemia Ulcer of perineum with fat layer exposed Skin ulcer of scrotum Anemia of chronic disease Acute blood loss anemia Ulcer of left groin with fat layer exposed Open wound of scrotum Acute postoperative anemia due to expected blood loss Hidradenitis suppurativa of anus Hypertension Tobacco dependence syndrome Anemia Malnutrition Cough Pneumonia involving right lung Pain in the groin Hydradenitis Diabetes mellitus type 2, uncontrolled, with complications Hypertension Hyperlipidemia associated with type 2 diabetes mellitus Diabetes type 2, uncontrolled COPD (chronic obstructive pulmonary disease) Hydradenitis Home Medications ?Medication ?Instructions ?Recorded ?Last Taken ?Type guselkumab 100 mg/mL subcutaneous 100 mg subcut Q4W ARTHRITIS 04/23/22 09/26/22 History syringe (Tremfya) carvedilol 25 mg tablet 25 mg PO BID #60 tabs 03/01/23 06/06/23 Rx nifedipine 90 mg tablet,extended 90 mg PO DAILY #90 tabs 05/08/23 12/25/23 Rx release 24 hr aspirin 81 mg tablet,delayed 81 mg PO DAILY 06/06/23 12/25/23 History release clopidogrel 75 mg tablet 75 mg PO DAILY #30 tabs 06/17/23 12/25/23 Rx atorvastatin 80 mg tablet 80 mg PO QHS #30 tabs 12/14/23 12/25/23 Rx hydralazine 50 mg tablet 50 mg PO TID #90 tabs 12/14/23 12/25/23 Rx pantoprazole 40 mg tablet,delayed 40 mg PO BID #60 tabs 12/14/23 12/25/23 Rx release Allergy/AdvReac Type Severity Reaction Status Date / Time Penicillins Allergy Unknown Verified 12/26/23 11:34 Sulfa (Sulfonamide Allergy Unknown Verified 12/26/23 11:34 Antibiotics) bupropion (From Wellbutrin) AdvReac Severe change in Verified 12/26/23 11:34 personality ,meanness and smoked more doxycycline AdvReac Severe Vomiting Verified 12/26/23 11:34 Family History Aunt Lung disease lung cancer Father Heart disease Hypertension Family history of high cholesterol Diabetes Mother Diabetes Daughter Epilepsy Surgical History Hx of vascular surgery History of excision of lesion History of incision and drainage History of coronary artery stent placement History of removal of cyst Hx of hernia repair History of tonsillectomy and adenoidectomy Social History household members: spouse Smoking Status: Current every day smoker tobacco type: cigarettes alcohol intake: never substance use type: does not use caffeine: Yes (7) Type: coffee additional social history: DOES NOT TAKE ASPIRIN DOES NOT TAKE IBUPROFEN ROS ROS Narrative 10 systems were reviewed with pertinent positives as noted in the HPI above. Physical Exam Const alert and oriented x3 Constitutional Narrative: Patient appears older than the stated age, he appears cachectic General Appearance: cooperative and well developed Orientation / Consciousness: awake, oriented to person, oriented to place and oriented to time HEENT normocephalic, head/scalp atraumatic and moist oral mucous membranes Eyes PERRL, EOMs intact bilaterally and conjunctivae normal Neck supple, no JVD, thyroid normal and no carotid bruits General: trachea midline Resp Resp Narrative: Patient has expiratory rhonchi and wheezes bilaterally, respiratory rate is 21, patient appears comfortable at rest Auscultation: rhonchi throughout and wheezes throughout; Negative for rales Cardio regular rate, regular rhythm, S1 normal heart sound, S2 normal heart sound, no murmurs, no rub and no gallops Cardio Narrative: Heart rate and rhythm is tachycardic GI normal to inspection, nondistended, normoactive bowel sounds, soft to palpation, non-tender and non-distended Extremity no clubbing, cyanosis or edema Skin no rashes or lesions noted General Skin Exam: no breakdown Neuro oriented x3, CN's II-XII intact bilaterally, no focal motor deficits and no sensory deficits noted Sensorium / Orientation: awake and alert Speech: speech normal Psych affect normal Lab / Micro Data 12/27/23 15:10 12/27/23 05:14 Labs: Laboratory Results - last 24 hr 12/26/23 12:17: Diff Path Review Reviewed, Crossmatch See Detail 12/26/23 12:17: Crossmatch See Detail 12/26/23 23:51: POC Glucose 168 H 12/27/23 05:14: WBC 16.4 H, RBC 3.10 L, Hgb 8.0 L, Hct 25.3 L, MCV 81.6, MCH 25.8 L, MCHC 31.6 L, RDW Std Deviation 65.2 H, RDW Coeff of Dana 21.8 H, Plt Count 322, MPV 9.5, Differential Comment SCANNED, PT 13.1, INR 1.0, APTT 34.4, Sodium 137, Potassium 4.3, Chloride 110 H, Carbon Dioxide 21.0, Anion Gap 6, BUN 41 H, Creatinine 3.18 H, Estim Creat Clear Calc 23.90, Est GFR (MDRD) Af Amer 26 L, Est GFR (MDRD) Non-Af 21 L, BUN/Creatinine Ratio 12.9, Glucose 143 H, Hemoglobin A1c 6.4 H, Calcium 8.7, AST 10 L, ALT 13 L, B-Natriuretic Peptide 309.1 H, Procalcitonin 0.23 H 12/27/23 05:48: POC Glucose 146 H 12/27/23 11:35: POC Glucose 142 H 12/27/23 12:17: Crossmatch See Detail 12/27/23 15:10: Hgb 7.4 L 12/27/23 16:05: POC Glucose 293 H Micro: Microbiology 12/27/23 09:20 Mucosa - Nose Respiratory Panel (PCR) - Final 12/27/23 09:20 Mucosa - Nose Coronavirus COVID-19 PCR - Final Rhythm Strip Rhythm Strip: Sinus Rhythm Rate: 66 Ectopy: None Assessment & Plan Assessment/Plan (1) Acute on chronic blood loss anemia: (2) Recurrent gastrointestinal hemorrhage: PLAN: Plan Patient is a 58-year-old male who presented to [facility] ED on 12/26/2023 with worsening anemia presumed secondary to recurrent GI bleed. Acute on chronic anemia presumed secondary to recurrent upper GI bleed ? Hemoglobin 5.0 on admit, down from 7.1 on 12/23. Patient reporting melanotic stools in his colostomy bag. EGD on 12/10 showed grade D erosive esophagitis with active bleeding that was cauterized. Patient was continued on aspirin and Plavix due to recent peripheral stent placed in May as noted below. IV Protonix bolus given in ED and will agree with IV PPI twice daily. Okay for clear liquids for now. Patient will get endoscopy when medically stable. Charges/Coding Visit Charges Inpatient E&M: 40873 Init Hosp L3
[2023-12-27 21:02] LABS: Hematocrit 24.4 % (40-54); Hemoglobin 7.6 g/dL (13.0-16.5)
[2023-12-27] MEDS: Atorvastatin Calcium 80 MG Tablet PO (22:54)
[2023-12-27 23:33] LABS: Bedside Glucose 421 mg/dL (74-106)
[2023-12-28] VITALS (16 sets, daily range): BP systolic 154–198; BP diastolic 45–69; PULSE 65–88; RESP 16–22; TEMP 36.1–36.8; O2SAT 93–100
[2023-12-28] MEDS: Insulin Lispro 100 UNIT/ML INSULN.PEN SC ×4 (06:40→21:56)
[2023-12-28] MEDS: hydrALAZINE 50 MG Tablet PO ×4 (06:41→21:55)
[2023-12-28] MEDS: 0.9% Saline Lock 10 ML Syringe IV ×2 (06:41→22:03)
[2023-12-28] MEDS: Ipratropium/Albuterol Sulfate 3 ML AMPUL.NEB INHALATION ×3 (07:13→20:23)
[2023-12-28 07:17] LABS: Bedside Glucose 241 mg/dL (74-106)
[2023-12-28 08:00] LABS: Hemoglobin 7.8 g/dL (13.0-16.5); Mean Corp Hgb Conc 32.5 g/dL (32-36); Mean Corpuscular Hgb 27.2 pg (27.0-32.0); Mean Corpuscular Volume 83.6 fL (80-94); Mean Platelet Vol. 9.6 fl (6.2-12.0); POSITIVE MORPHOLOGY YES; Platelet Count 250 K/mm3 (150-450); RBC Distribution Width CV 20.2 % (11.6-14.6); RBC Distribution Width SD 62.9 fl (35.1-43.9); Red Blood Count 2.87 M/mm3 (4.6-6.2); White Blood Count 15.9 K/mm3 (4.4-11.0)
[2023-12-28 08:02] LABS: Scan Indicated on CBC? Y/N YES- FLAGS NOTED
[2023-12-28 08:54] LABS: Anion Gap 5 (5-15); BUN 48 mg/dL (7-18); BUN/Creat Ratio 15.4 RATIO (10-20); Calcium,Total 8.8 mg/dL (8.5-10.1); Chloride 108 mmol/L (98-107); Creatinine, Serum 3.12 mg/dL (0.70-1.30); EST Glomerular Filtration Rate 22 mL/min (>60); Est Glom Filt Rate - Afr Amer 26 mL/min (>60); Estimated Creatinine Clearance 24.36 ml/min; Glucose 246 mg/dL (74-106); Potassium 6.3 mmol/L (3.5-5.1); Sodium Level 132 mmol/L (136-145)
[2023-12-28] MEDS: Sodium Polystyrene Sulfonate 15 GM/60 ML UDC 30 GM PO (09:23)
[2023-12-28] MEDS: Carvedilol 25 MG Tablet PO ×2 (09:26→21:55)
[2023-12-28] MEDS: Furosemide 20 MG/2 ML VIAL IV ×2 (09:27→17:29)
[2023-12-28] MEDS: Pantoprazole Sodium 40 MG in 0.9% Normal Saline (100mL MB+) 100 ML 330 MG IV ×2 (09:27→21:56)
[2023-12-28] MEDS: NIFEdipine 90 MG Tablet PO (09:27)
[2023-12-28] MEDS: Meropenem 1 GM in 0.9% Normal Saline (100mL MB+) 100 ML IV ×2 (10:36→21:57)
[2023-12-28 12:01] LABS: Bedside Glucose 323 mg/dL (74-106)
[2023-12-28 15:04] LABS: Hematocrit 25.9 % (40-54); Hemoglobin 8.4 g/dL (13.0-16.5)
[2023-12-28 15:17] LABS: Anion Gap 5 (5-15); BUN 49 mg/dL (7-18); BUN/Creat Ratio 14.8 RATIO (10-20); Calcium,Total 8.6 mg/dL (8.5-10.1); Chloride 109 mmol/L (98-107); Creatinine, Serum 3.32 mg/dL (0.70-1.30); EST Glomerular Filtration Rate 20 mL/min (>60); Est Glom Filt Rate - Afr Amer 25 mL/min (>60); Estimated Creatinine Clearance 22.89 ml/min; Glucose 236 mg/dL (74-106); Potassium 5.7 mmol/L (3.5-5.1); Sodium Level 135 mmol/L (136-145)
--- NOTE | 2023-12-28 15:49 | PCM.PN.HOSP ---
Reason for Visit Reason for Visit: Diagnoses Acute posthemorrhagic anemia (12/26/23) Gastrointestinal hemorrhage, unspecified (12/26/23) Subjective Subjective Patient was seen and examined today, he is now on 4 L of oxygen via nasal cannula, patient's potassium was elevated this morning, repeat potassium was improved after Kayexalate administration but the patient will need another administration of Kayexalate this afternoon. Labs will be repeated tomorrow Objective Data Objective Data Vital Signs: Vital Signs Temp Pulse Resp BP Pulse Ox O2 Del Method O2 Flow Rate 98.2 F 83 16 198/56 H 94 Nasal Cannula 4 12/28/23 14:30 12/28/23 14:36 12/28/23 14:30 12/28/23 14:36 12/28/23 14:30 12/28/23 14:30 12/28/23 14:30 Oxygen Flow Rate (L/min) 4 Oxygen Delivery Method Nasal Cannula Weight: 72.4 kg Body Mass Index (BMI) 24.3 Intake & Output: Intake and Output for Last 24 Hours 12/26/23 12/27/23 12/28/23 23:59 23:59 23:59 Intake Total 1385 / 1835 1980 / 2730 1700 / 1700 Output Total 350 / 350 500 / 500 Balance 1035 / 1485 1480 / 2230 1700 / 1700 Lab / Micro Data 12/28/23 14:34 12/28/23 14:34 Labs: Laboratory Results - last 24 hr 12/27/23 12:17: Crossmatch See Detail 12/27/23 16:05: POC Glucose 293 H 12/27/23 20:52: Hgb 7.6 L, Hct 24.4 L 12/27/23 22:57: POC Glucose 421 H 12/28/23 05:10: Sodium Cancelled, Potassium Cancelled, Chloride Cancelled, Carbon Dioxide Cancelled, Anion Gap Cancelled, BUN Cancelled, Creatinine Cancelled, Estim Creat Clear Calc Cancelled, Est GFR (MDRD) Af Amer Cancelled, Est GFR (MDRD) Non-Af Cancelled, BUN/Creatinine Ratio Cancelled, Glucose Cancelled, Calcium Cancelled 12/28/23 06:39: POC Glucose 241 H 12/28/23 07:45: WBC 15.9 H, RBC 2.87 L, Hgb 7.8 L, Hct 24.0 L, MCV 83.6, MCH 27.2, MCHC 32.5, RDW Std Deviation 62.9 H, RDW Coeff of Dana 20.2 H, Plt Count 250, MPV 9.6, Differential Comment ., Sodium 132 L, Potassium 6.3 H*, Chloride 108 H, Carbon Dioxide 19.0 L, Anion Gap 5, BUN 48 H, Creatinine 3.12 H, Estim Creat Clear Calc 24.36, Est GFR (MDRD) Af Amer 26 L, Est GFR (MDRD) Non-Af 22 L, BUN/Creatinine Ratio 15.4, Glucose 246 H, Calcium 8.8 12/28/23 11:42: POC Glucose 323 H 12/28/23 14:34: Hgb 8.4 L, Hct 25.9 L, Sodium 135 L, Potassium 5.7 H, Chloride 109 H, Carbon Dioxide 20.0 L, Anion Gap 5, BUN 49 H, Creatinine 3.32 H, Estim Creat Clear Calc 22.89, Est GFR (MDRD) Af Amer 25 L, Est GFR (MDRD) Non-Af 20 L, BUN/Creatinine Ratio 14.8, Glucose 236 H, Calcium 8.6 Micro: Microbiology 12/27/23 09:20 Mucosa - Nose Respiratory Panel (PCR) - Final 12/27/23 09:20 Mucosa - Nose Coronavirus COVID-19 PCR - Final Rhythm Strip Rhythm Strip: Sinus Rhythm Rate: 66 Ectopy: None Physical Exam Narrative alert and oriented x3 Constitutional Narrative: Patient appears older than the stated age, he appears cachectic General Appearance: cooperative and well developed Orientation / Consciousness: awake, oriented to person, oriented to place and oriented to time HEENT normocephalic, head/scalp atraumatic and moist oral mucous membranes Eyes PERRL, EOMs intact bilaterally and conjunctivae normal Neck supple, no JVD, thyroid normal and no carotid bruits General: trachea midline Resp Resp Narrative: Patient has expiratory rhonchi and wheezes bilaterally, respiratory rate is 21, patient appears comfortable at rest Auscultation: rhonchi throughout and wheezes throughout; Negative for rales Cardio regular rate, regular rhythm, S1 normal heart sound, S2 normal heart sound, no murmurs, no rub and no gallops Cardio Narrative: Heart rate and rhythm is tachycardic GI normal to inspection, nondistended, normoactive bowel sounds, soft to palpation, non-tender and non-distended Extremity no clubbing, cyanosis or edema Skin no rashes or lesions noted General Skin Exam: no breakdown Neuro oriented x3, CN's II-XII intact bilaterally, no focal motor deficits and no sensory deficits noted Sensorium / Orientation: awake and alert Speech: speech normal Psych affect normal Assessment & Plan Assessment/Plan (1) Acute on chronic blood loss anemia: (2) GI (gastrointestinal bleed): PLAN: Plan 1. Acute anemia believed to be secondary from GI tract blood loss-patient's hemoglobin appears to be stable at this time, I will recheck his labs tomorrow, patient will undergo endoscopy on 12/30/2023. #2 hypoxic respiratory [id number] unclear, it appears that some component of this respiratory failure is most likely congestive heart failure as the patient improved with IV diuresis. #3 chronic obstructive pulmonary disease-again patient was placed on IV corticosteroids and will receive aerosol treatments. #4 coronary artery disease-due to his suspected upper GI bleed, patient will remain off aspirin and Plavix at this time #5 essential hypertension-patient will remain on his home medications, they will be adjusted as needed #6 acute diastolic congestive heart failure-patient will remain on IV diuretics for now, patient's ejection fraction on his last echocardiogram done in November of this year was 60%. #7 hyperkalemia-etiology unclear at this point, administer Kayexalate and recheck BMP tomorrow #8 chronic kidney disease stage IV-complicates care, management, recovery, and prognosis, labs will be repeated tomorrow Total clinical time spent by myself addressing the patient's medical issues, reviewing all of his data, and collaborating with patient's care team: 35 minutes Charges/Coding Visit Charges Inpatient E&M: 68188 Subs Hosp L2
[2023-12-28] MEDS: Sodium Polystyrene Sulfonate 15 GM/60 ML UDC PO (16:30)
[2023-12-28 17:07] LABS: Bedside Glucose 276 mg/dL (74-106)
[2023-12-28] MEDS: Atorvastatin Calcium 80 MG Tablet PO (21:55)
[2023-12-28 22:59] LABS: Bedside Glucose 419 mg/dL (74-106)
[2023-12-29] VITALS (22 sets, daily range): BP systolic 151–211; BP diastolic 41–69; PULSE 70–88; RESP 16–22; TEMP 36.3–37; O2SAT 91–99; BMI 24.3
--- NOTE | 2023-12-29 00:30 | PCM.HOSP.N ---
Hospitalist Note Patient with hyperglycemia, appears primarily in the evenings. HgbA1c recently obtained and noted to be 6.4%, will increase his ISS.
[2023-12-29] MEDS: hydrALAZINE 20 MG/ML Vial 10 MG IV ×3 (01:12→18:57)
[2023-12-29] MEDS: 0.9% Saline Lock 10 ML Syringe IV ×3 (01:12→22:33)
[2023-12-29 05:45] LABS: Absolute Lymphocyte Count 0.53 X10^3/uL (0.83-4.51); Absolute Neutrophil Count 18.2 X10^3/uL (2.0-7.7); Basophil# 0.02 X10^3/uL; Basophil% 0.1 % (0-1); Hematocrit 26.6 % (40-54); Hemoglobin 8.2 g/dL (13.0-16.5); Lymphocyte # 0.53 X10^3/ul (0.83-4.51); Lymphocyte % 2.7 % (19-41); Mean Corp Hgb Conc 30.8 g/dL (32-36); Mean Corpuscular Hgb 26.9 pg (27.0-32.0); Mean Corpuscular Volume 87.2 fL (80-94); Mean Platelet Vol. 9.9 fl (6.2-12.0); Monocyte# 0.45 X10^3/uL; Monocyte% 2.3 % (0-10); NRBC Flagged by Analyzer 0 % (0-5); Neutrophil # 18.22 X10^3/uL (2.7-7.7); Neutrophil % 94.1 % (47-70); POSITIVE DIFFERENTIAL YES; POSITIVE MORPHOLOGY YES; Platelet Count 311 K/mm3 (150-450); RBC Distribution Width CV 21.1 % (11.6-14.6); RBC Distribution Width SD 68.9 fl (35.1-43.9); Red Blood Count 3.05 M/mm3 (4.6-6.2); White Blood Count 19.4 K/mm3 (4.4-11.0)
[2023-12-29 05:53] LABS: Differential Indicated SCAN CRITERIA MET
[2023-12-29 05:55] LABS: Anisocytosis 2+; Differential Comment SCANNED; Platelet Estimate ADEQUATE (ADEQ)
[2023-12-29 06:04] LABS: Anion Gap 6 (5-15); BUN 54 mg/dL (7-18); BUN/Creat Ratio 14.8 RATIO (10-20); Calcium,Total 8.7 mg/dL (8.5-10.1); Chloride 110 mmol/L (98-107); Creatinine, Serum 3.65 mg/dL (0.70-1.30); EST Glomerular Filtration Rate 18 mL/min (>60); Est Glom Filt Rate - Afr Amer 22 mL/min (>60); Estimated Creatinine Clearance 20.82 ml/min; Glucose 389 mg/dL (74-106); Potassium 4.6 mmol/L (3.5-5.1); Sodium Level 137 mmol/L (136-145)
[2023-12-29] MEDS: Insulin Lispro 100 UNIT/ML INSULN.PEN SC ×4 (06:31→22:31)
[2023-12-29] MEDS: Insulin Lispro 100 UNIT/ML INSULN.PEN 15 UNIT SC (06:42)
[2023-12-29 06:51] LABS: Bedside Glucose 446 mg/dL (74-106)
[2023-12-29] MEDS: Ipratropium/Albuterol Sulfate 3 ML AMPUL.NEB INHALATION ×3 (07:18→20:28)
[2023-12-29] MEDS: NIFEdipine 90 MG Tablet PO (08:42)
[2023-12-29] MEDS: hydrALAZINE 50 MG Tablet PO ×4 (08:43→22:31)
[2023-12-29] MEDS: Furosemide 20 MG/2 ML VIAL IV ×2 (08:43→17:21)
[2023-12-29] MEDS: Carvedilol 25 MG Tablet PO ×2 (08:43→22:31)
[2023-12-29] MEDS: Meropenem 1 GM in 0.9% Normal Saline (100mL MB+) 100 ML IV (08:46)
[2023-12-29 12:20] LABS: Bedside Glucose 342 mg/dL (74-106)
[2023-12-29] MEDS: Pantoprazole Sodium 40 MG in 0.9% Normal Saline (100mL MB+) 100 ML 330 MG IV ×2 (12:43→22:35)
--- NOTE | 2023-12-29 13:58 | PN.HOSP_ITS ---
Reason for Visit Reason for Visit: Diagnoses Acute posthemorrhagic anemia (12/26/23) Gastrointestinal hemorrhage, unspecified (12/26/23) Subjective Subjective Patient was seen and examined today, he is on room air. Blood pressure is under fair control at this time, patient's white count is elevated but I think this is due to Solu-Medrol. I have decided to change the patient's furosemide and steroid to oral today patient's hemoglobin appears to be stable, creatinine is 3.65, patient remains on bicarb drip at this time. Objective Data Objective Data Vital Signs: Vital Signs Temp Pulse Resp BP Pulse Ox O2 Del Method O2 Flow Rate 98.2 F 73 18 171/58 H 93 Room Air 3 12/29/23 11:50 12/29/23 13:53 12/29/23 11:50 12/29/23 13:52 12/29/23 11:50 12/29/23 11:50 12/28/23 21:49 Oxygen Flow Rate (L/min) 3 Oxygen Delivery Method Room Air Weight: 72.4 kg Body Mass Index (BMI) 24.3 Intake & Output: Intake and Output for Last 24 Hours 12/27/23 12/28/23 12/29/23 23:59 23:59 23:59 Intake Total 1980 / 2730 2050 / 2050 650 / 650 Output Total 500 / 500 150 / 150 Balance 1480 / 2230 1900 / 1900 650 / 650 Lab / Micro Data 12/29/23 04:35 12/29/23 04:35 Labs: Laboratory Results - last 24 hr 12/27/23 12:17: Crossmatch See Detail 12/28/23 14:34: Hgb 8.4 L, Hct 25.9 L, Sodium 135 L, Potassium 5.7 H, Chloride 109 H, Carbon Dioxide 20.0 L, Anion Gap 5, BUN 49 H, Creatinine 3.32 H, Estim Creat Clear Calc 22.89, Est GFR (MDRD) Af Amer 25 L, Est GFR (MDRD) Non-Af 20 L, BUN/Creatinine Ratio 14.8, Glucose 236 H, Calcium 8.6 12/28/23 16:28: POC Glucose 276 H 12/28/23 21:50: POC Glucose 419 H 12/29/23 04:35: WBC 19.4 H, RBC 3.05 L, Hgb 8.2 L, Hct 26.6 L, MCV 87.2, MCH 26.9 L, MCHC 30.8 L D, RDW Std Deviation 68.9 H, RDW Coeff of Dana 21.1 H, Plt Count 311, MPV 9.9, Immature Gran % (Auto) 0.800, Neut % (Auto) 94.1 H, Lymph % (Auto) 2.7 L, [place] % (Auto) 2.3, Eos % (Auto) 0.0, Baso % (Auto) 0.1, Absolute Neuts (auto) 18.2 H, Absolute Lymphs (auto) 0.53 L, Nucleated RBC % 0, Differential Comment SCANNED, Platelet Estimate ADEQUATE, Anisocytosis 2+, Sodium 137, Potassium 4.6, Chloride 110 H, Carbon Dioxide 21.0, Anion Gap 6, BUN 54 H, Creatinine 3.65 H, Estim Creat Clear Calc 20.82, Est GFR (MDRD) Af Amer 22 L, Est GFR (MDRD) Non-Af 18 L, BUN/Creatinine Ratio 14.8, Glucose 389 H, Calcium 8.7 12/29/23 06:24: POC Glucose 446 H 12/29/23 11:46: POC Glucose 342 H Micro: Microbiology 12/29/23 09:30 Sputum, Expectorated/Coughed Gram Stain - Final 12/27/23 09:20 Mucosa - Nose Respiratory Panel (PCR) - Final 12/27/23 09:20 Mucosa - Nose Coronavirus COVID-19 PCR - Final Rhythm Strip Rhythm Strip: Sinus Rhythm Rate: 66 Ectopy: None Physical Exam Narrative alert and oriented x3 Constitutional Narrative: Patient appears older than the stated age, he appears cachectic General Appearance: cooperative and well developed Orientation / Consciousness: awake, oriented to person, oriented to place and oriented to time HEENT normocephalic, head/scalp atraumatic and moist oral mucous membranes Eyes PERRL, EOMs intact bilaterally and conjunctivae normal Neck supple, no JVD, thyroid normal and no carotid bruits General: trachea midline Resp Resp Narrative: Patient has expiratory rhonchi and wheezes bilaterally, respiratory rate is 21, patient appears comfortable at rest Auscultation: rhonchi throughout and wheezes throughout; Negative for rales Cardio regular rate, regular rhythm, S1 normal heart sound, S2 normal heart sound, no murmurs, no rub and no gallops Cardio Narrative: Heart rate and rhythm is tachycardic GI normal to inspection, nondistended, normoactive bowel sounds, soft to palpation, non-tender and non-distended Extremity no clubbing, cyanosis or edema Skin no rashes or lesions noted General Skin Exam: no breakdown Neuro oriented x3, CN's II-XII intact bilaterally, no focal motor deficits and no sensory deficits noted Sensorium / Orientation: awake and alert Speech: speech normal Psych affect normal Assessment & Plan Assessment/Plan (1) GI (gastrointestinal bleed): (2) Acute on chronic blood loss anemia: PLAN: Plan 1. Acute anemia believed to be secondary from GI tract blood loss-patient's hemoglobin appears to be stable at this time patient will undergo endoscopy on 12/30/2023. #2 hypoxic respiratory [id number] unclear, it appears that some component of this respiratory failure is most likely congestive heart failure as the patient improved with IV diuresis. Patient's Lasix will be changed to oral, patient is currently on room air #3 chronic obstructive pulmonary disease-I will change the patient over to prednisone, he remained on aerosol treatment #4 coronary artery disease-due to his suspected upper GI bleed, patient will remain off aspirin and Plavix at this time #5 essential hypertension-patient will remain on his home medications, they will be adjusted as needed #6 acute diastolic congestive heart failure-patient will remain on IV diuretics for now, patient's ejection fraction on his last echocardiogram done in November of this year was 60%. #7 hyperkalemia-etiology unclear at this point, administer Kayexalate and recheck BMP tomorrow #8 chronic kidney disease stage IV-complicates care, management, recovery, and prognosis, labs will be repeated tomorrow Total clinical time spent by myself addressing the patient's medical issues, reviewing all of his data, and collaborating with patient's care team: 35 minutes Charges/Coding Visit Charges Inpatient E&M: 35327 Subs Hosp L2
[2023-12-29] MEDS: predniSONE 20 MG Tablet PO (17:20)
[2023-12-29 17:44] LABS: Bedside Glucose 420 mg/dL (74-106)
[2023-12-29] MEDS: Atorvastatin Calcium 80 MG Tablet PO (22:33)
[2023-12-29 22:51] LABS: Bedside Glucose 363 mg/dL (74-106)
[2023-12-30] VITALS (26 sets, daily range): BP systolic 142–195; BP diastolic 52–78; PULSE 62–87; RESP 12–20; TEMP 36.2–37; O2SAT 86–97
[2023-12-30] MEDS: hydrALAZINE 20 MG/ML Vial 10 MG IV ×3 (01:07→12:30)
--- NOTE | 2023-12-30 05:00 | EKG12_ITS ---
Test Reason : PRE-OP Blood Pressure : */* mmHG Vent. Rate : 71 BPM Atrial Rate : 71 BPM P-R Int : 130 ms QRS Dur : 108 ms QT Int : 414 ms P-R-T Axes : 68 28 133 degrees QTcB Int : 449 ms Normal sinus rhythm Left ventricular hypertrophy with repolarization abnormality ( Sokolow-White ) Cannot rule out Septal infarct , age undetermined Abnormal ECG When compared with ECG of 26-Dec-2023 13:21, MANUAL COMPARISON REQUIRED DATA IS UNCONFIRMED Confirmed by NOE RODRIGUEZ, STELLA ([id number]), editor book QASIM JUAN ([id number]) on 12/30/2023 2:01:39 PM Referred By: Confirmed By: STELLA LIU MD
[2023-12-30] MEDS: 0.9% Saline Lock 10 ML Syringe IV ×3 (06:28→20:37)
[2023-12-30 06:57] LABS: Hematocrit 24.3 % (40-54); Hemoglobin 7.7 g/dL (13.0-16.5)
[2023-12-30 07:04] LABS: Bedside Glucose 223 mg/dL (74-106)
[2023-12-30] MEDS: Ipratropium/Albuterol Sulfate 3 ML AMPUL.NEB INHALATION ×3 (07:23→19:48)
[2023-12-30 07:46] LABS: Anion Gap 8 (5-15); BUN 60 mg/dL (7-18); BUN/Creat Ratio 17.9 RATIO (10-20); Calcium,Total 8.3 mg/dL (8.5-10.1); Chloride 113 mmol/L (98-107); Creatinine, Serum 3.36 mg/dL (0.70-1.30); EST Glomerular Filtration Rate 20 mL/min (>60); Est Glom Filt Rate - Afr Amer 24 mL/min (>60); Estimated Creatinine Clearance 22.62 ml/min; Glucose 231 mg/dL (74-106); Potassium 4.4 mmol/L (3.5-5.1); Sodium Level 142 mmol/L (136-145)
[2023-12-30] MEDS: NIFEdipine 90 MG Tablet PO (08:41)
[2023-12-30] MEDS: hydrALAZINE 50 MG Tablet PO ×3 (08:41→20:36)
[2023-12-30] MEDS: Carvedilol 25 MG Tablet PO ×2 (08:41→20:36)
[2023-12-30] MEDS: Furosemide 20 MG/2 ML VIAL IV ×2 (08:42→18:27)
--- NOTE | 2023-12-30 10:04 | PN.HOSP_ITS ---
Reason for Visit Reason for Visit: Diagnoses Acute posthemorrhagic anemia (12/26/23) Gastrointestinal hemorrhage, unspecified (12/26/23) Subjective Subjective Patient reports he has had some increased shortness of breath again since yesterday with a little bit of a cough, breathing treatment is somewhat helpful. No significant swelling in legs. No abdominal pain at this time Objective Data Objective Data Vital Signs: Vital Signs Temp Pulse Resp BP Pulse Ox O2 Del Method O2 Flow Rate 98.1 F 70 12 180/65 H 95 Room Air 2 12/30/23 08:00 12/30/23 08:41 12/30/23 09:02 12/30/23 10:00 12/30/23 08:00 12/30/23 09:02 12/30/23 06:26 Oxygen Flow Rate (L/min) 2 Oxygen Delivery Method Room Air Weight: 72.4 kg Body Mass Index (BMI) 24.3 Intake & Output: Intake and Output for Last 24 Hours 12/28/23 12/29/23 12/30/23 23:59 23:59 23:59 Intake Total 2050 / 2050 1260 / 1620 360 / 360 Output Total 150 / 150 Balance 1900 / 1900 1260 / 1620 360 / 360 Lab / Micro Data 12/30/23 06:12 12/30/23 06:12 Labs: Laboratory Results - last 24 hr 12/27/23 12:17: Crossmatch See Detail 12/29/23 11:46: POC Glucose 342 H 12/29/23 17:05: POC Glucose 420 H 12/29/23 22:29: POC Glucose 363 H 12/30/23 06:12: Hgb 7.7 L, Hct 24.3 L, Sodium 142, Potassium 4.4, Chloride 113 H , Carbon Dioxide 21.0, Anion Gap 8, BUN 60 H, Creatinine 3.36 H, Estim Creat Clear Calc 22.62, Est GFR (MDRD) Af Amer 24 L, Est GFR (MDRD) Non-Af 20 L, BUN/Creatinine Ratio 17.9, Glucose 231 H, Calcium 8.3 L 12/30/23 06:24: POC Glucose 223 H Micro: Microbiology 12/29/23 09:30 Sputum, Expectorated/Coughed Gram Stain - Final 12/27/23 09:20 Mucosa - Nose Respiratory Panel (PCR) - Final 12/27/23 09:20 Mucosa - Nose Coronavirus COVID-19 PCR - Final Rhythm Strip Rhythm Strip: Sinus Rhythm Rate: 66 Ectopy: None Physical Exam Narrative General: Alert, oriented, no apparent distress HEENT: Atraumatic, normocephalic Eyes: Anicteric, normal conjunctiva, extraocular movements grossly intact Neck: Supple Respiratory: Slight increased respiratory effort, scattered wheezes right greater than left Cardiovascular: Regular rate and rhythm GI: Soft, nontender, nondistended Extremities: No significant pitting edema Musculoskeletal: Moving all extremities Neuro: No overt focal neurological deficits Skin: No rashes appreciated Psych: Cooperative Assessment & Plan Assessment/Plan (1) GI (gastrointestinal bleed): PLAN: Plan # Acute on chronic anemia presumed secondary to recurrent GI bleed -Had recent endoscopy 1 month ago due to his anemia and found to have grade D erosive esophagitis with active bleeding and this was cauterized -On representation to our facility had hemoglobin of 5 -Patient started on IV PPI, given 2 units packed red blood cells and GI consulted -Patient's aspirin and Plavix held -Patient had unstable respiratory status so endoscopy canceled on admission and rescheduled for 12/30/2023 # Hypoxic respiratory failure secondary to exacerbation of heart failure preserved ejection fraction -Patient improved with IV diuresis -Patient is maintained on IV diuresis, doing well on 2 L O2 but desaturates to mid 80s off of oxygen # Suspected underlying COPD -Patient responded well to IV Lasix but now has had some increased shortness of breath after IV steroids transition to p.o. steroids, will transition back to IV steroids, incentive spirometer, Mucinex -Will need outpatient pulmonology follow-up -Continue nebs # CKD stage III IV -Appears to be at baseline -Avoid nephrotoxic agents -Daily BMPs # Hypertension -Significantly variable despite hydralazine, carvedilol, Lasix, nifedipine -May need to consider adding clonidine or additional agent if remains uncontrolled # History of PAD status post left SFA -Status post stent placement 05/2023 -Was on aspirin, Plavix, high intensity statin prior to admission which been held -Resume when cleared to do so by GI # Concern for recent minor stroke -Last month, had negative MRI head and neck and had moderate stenosis of ICA, occlusion of right posterior cerebral artery and possible occlusion of the distal left vertebral artery -Patient was already on aspirin and Plavix and high intensity statin and it was recommended that this be continued -Resume when cleared to do so by GI #Tobacco use -Advise cessation -Nicotine replacement available if desired #Hx SLE -On Tremfya q4 weeks #DVT ppx: SCDs Юлия Chester MD Charges/Coding Visit Charges Inpatient E&M: 90669 Subs Hosp L2
[2023-12-30] MEDS: Pantoprazole Sodium 40 MG in 0.9% Normal Saline (100mL MB+) 100 ML 330 MG IV ×2 (10:35→20:36)
[2023-12-30 11:18] LABS: Bedside Glucose 167 mg/dL (74-106)
--- NOTE | 2023-12-30 13:25 | PCM.PRE.AN2 ---
ASA Classification* ASA Classification ASA Classification: 3 Assessment & Plan Anesthesia* Anesthesia Assessment Anesthesia Assessment: Discussed sedation and/or anesthesia options, risks, benefits, and alternatives with patient/parents/legal guardian/POA. Questions invited. The patient/parents/legal guardian/POA seems to understand and agrees to proceed with anesthesia plan. Reviewed the physical assessment, medical history, allergy history and patient home medications list prior to surgery/procedure/anesthetic and documented any changes. Performed airway and anesthesia risk assessments. Anesthesia Type Anesthesia Type: MAC History Source History Obtained from:: Patient and Chart Anesthesia Focused Assessment* Temperature: 97.8 F Pulse Rate: 62 Blood Pressure: 195/68 Respiratory Rate: 12 Pulse Ox: 95 Oxygen Delivery Method: Room Air Airway Assessment Mouth opens: >3 cm Mallampati Score: IV Teeth Condition: Dentures (Patient has full dentures upper and lower. They are out.) Neck Range of motion (ROM): Limited ROM (Somewhat decreased extension.) Comment: Full torres Focused Labs Anesthesia Preop lab: CBC WBC 19.4 K/mm3 (4.4-11.0) H 12/29/23 04:35 RBC 3.05 M/mm3 (4.6-6.2) L 12/29/23 04:35 Hgb 7.7 g/dL (13.0-16.5) L 12/30/23 06:12 Hct 24.3 % (40-54) L 12/30/23 06:12 Plt Count 311 K/mm3 (150-450) 12/29/23 04:35 CHEMISTRY Potassium 4.4 mmol/L (3.5-5.1) 12/30/23 06:12 Sodium 142 mmol/L (136-145) 12/30/23 06:12 Magnesium 2.3 mg/dL (1.6-2.6) 12/11/23 08:40 Phosphorus 2.4 mg/dL (2.5-4.9) L 05/16/23 06:23 BUN 60 mg/dL (7-18) H 12/30/23 06:12 Creatinine 3.36 mg/dL (0.70-1.30) H 12/30/23 06:12 Glucose 231 mg/dL (74-106) H 12/30/23 06:12 POC Glucose 167 mg/dL (74-106) H 12/30/23 10:59 TSH 2.050 uIU/mL (0.358-3.740) 12/24/23 09:02 COAG PT 13.1 SECONDS (11.7-14.9) 12/27/23 05:14 Pre-Assessment Diagnosis/Proposed Procedure Planned Operative Procedure(s): Esophagogastroduodenoscopy Anesthesia History 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 When Was Last Pacemaker Check QUESTION #4 FULL TEXT: You/Your Family Experience fever (hyperthermia) with Anesthesia Last Oral Intake Last Oral intake: Last Oral Intake NPO since 00:00 12/29/23 20:38 Meds taken in AM with sips of No 12/29/23 20:38 water? Meds patient instructed to take am of surgery Any additional information?: Yes Meds taken in AM with sips of water?: Yes PONV PONV - maintenance and custodian supervisor: PONV - maintenance and custodian supervisor Female HX of Motion Sickness HX of N/V After Surgery Non-Smoker Duration of Surgery greater than 60 minutes Number of Risk Factors PONV Score Height & Weight Height & Weight: Anesthesia: Height & Weight Height 5 ft 8 in 12/29/23 20:38 Weight: 72.4 kg 12/29/23 20:38 Body Mass Index (BMI) 24.3 12/29/23 20:38 Respiratory Assessment Respiratory Assessment - maintenance and custodian supervisor: Respiratory Tract Infection Hx - maintenance and custodian supervisor Hx Respiratory Tract Infection No 12/29/23 20:38 STOP Sleep Apnea STOP Sleep Apnea - maintenance and custodian supervisor: STOP Sleep Apnea - maintenance and custodian supervisor Hx Hypertension Yes 12/26/23 14:08 Hx Sleep Apnea No 12/26/23 14:08 CPAP No 12/26/23 14:08 BIPAP No 12/26/23 14:08 Do you snore loudly (louder No 12/26/23 14:08 than talking or can be heard Do you often feel tired/ No 12/26/23 14:08 fatigued/ sleepy during daytime? Has anyone observed you stop No 12/26/23 14:08 breathing during sleep? STOP Results Negative 12/26/23 14:08 QUESTION #5 FULL TEXT : Do you snore loudly (louder than talking or can be heard through closed doors)? 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 Specify any problems Hx of Preganancy in last 3 N/A 12/26/23 14:08 Months Nurse Filling Out Transfusion NBILANCIN 12/26/23 14:08 & Questions: Date: 12/26/23 12/26/23 14:08 Time: 14:43 12/26/23 14:08 Patient unable to answer at this time (ie. confused, unrespo /Reproduction History /Reproductive History - maintenance and custodian supervisor: /Reproductive Hx- maintenance and custodian supervisor Hx Now No 12/29/23 20:38 Gestational Age (in weeks): EDC: Hx Hx Para Hx Section SAB No 12/29/23 20:38 Active Medications Active Medications: Current Medications Generic Name Dose Route Start Last Admin Trade Name Freq PRN Reason Stop Dose Admin Acetaminophen 650 mg 12/26/23 14:13 Acetaminophen 325 Mg Tablet PO Q6H PRN PRN Pain 1-10 Or Fever>100.7 Albuterol Sulfate 2.5 mg 12/27/23 03:51 12/27/23 04:38 Albuterol 2.5 Mg/3 Ml Vial.Neb. INHALATION 2.5 mg Q2H PRN PRN Administration Dyspnea, wheezing Albuterol/Ipratropium 3 ml 12/27/23 09:00 12/30/23 10:53 Ipratropium/Albuterol Sulfate 3 Ml Ampul.Neb INHALATION 3 ml Q4HWA.RT MAE Administration Atorvastatin Calcium 80 mg 12/26/23 22:00 12/29/23 22:33 Atorvastatin Calcium 80 Mg Tablet PO 80 mg QHS MAE Administration Carvedilol 25 mg 12/27/23 13:30 12/30/23 08:41 Carvedilol 25 Mg Tablet PO 25 mg BID MAE Administration Protocol Furosemide 20 mg 12/27/23 18:00 12/30/23 08:42 Furosemide 20 Mg/2 Ml Vial IV 20 mg [id number] MAE Administration Protocol Glucagon 1 mg 12/27/23 00:07 Glucagon 1 Mg/Ml Syringe IM X1 PRN Hypoglycemia Protocol Guaifenesin 1,200 mg 12/30/23 22:00 Guaifenesin 1,200 Mg Tablet PO BID MAE Hydralazine HCl 50 mg 12/28/23 18:00 12/30/23 08:41 Hydralazine 50 Mg Tablet PO 50 mg 4X/DAY MAE Administration Protocol Hydralazine HCl 10 mg 12/29/23 00:31 12/30/23 06:28 Hydralazine 20 Mg/Ml Vial IV 10 mg Q4H PRN PRN Administration SBP > 160 Protocol Pantoprazole Sodium 40 mg/ 110 mls @ 330 mls/hr 12/26/23 22:00 12/30/23 12:20 Sodium Chloride IV Infused Q12 MAE Infusion Sodium Chloride 500 mls @ 15 mls/hr 12/26/23 14:47 IV .[id number] PRN SALINE FLUSH Dextrose 250 mls @ 0 mls/hr 12/27/23 00:07 Dextrose 10%-Water IV .Q0M PRN HYPOGLYCEMIA Protocol As Directed Sodium Chloride 500 mls @ 15 mls/hr 12/27/23 15:40 IV .[id number] PRN SALINE FLUSH Insulin Human Lispro 0 unit 12/27/23 07:00 12/30/23 11:57 Insulin Lispro 100 Unit/Ml Insuln.Pen SC Not Given ACHS [facility] Protocol Melatonin 3 mg 12/26/23 14:13 Melatonin 3 Mg Tablet PO QHS PRN PRN INSOMNIA Methylprednisolone 40 mg 12/30/23 14:00 Methylprednisolone 40 Mg/Ml Vial IV 12/31/23 14:01 Q8 MAE Nicotine 21 mg 12/29/23 07:00 12/29/23 06:43 Nicotine 21 Mg Patch TD 21 mg DAILY MAE Administration Nifedipine 90 mg 12/27/23 10:00 12/30/23 08:41 Nifedipine 90 Mg Tablet PO 90 mg DAILY MAE Administration Ondansetron HCl 4 mg 12/26/23 14:13 Ondansetron 4 Mg/2 Ml Vial IV Q8H PRN PRN NAUSEA/VOMITING Prednisone 40 mg 01/01/24 08:00 Prednisone 20 Mg Tablet PO DAILY@0800 MAE Sodium Chloride 10 - 40 ml 12/26/23 14:47 12/30/23 06:28 0.9% Saline Lock 10 Ml Syringe IV 10 ml UD PRN Administration SALINE FLUSH Sodium Chloride 10 - 40 ml 12/27/23 15:40 0.9% Saline Lock 10 Ml Syringe IV UD PRN SALINE FLUSH PFSH Medical History Right sided numbness Dysphagia Dyslipidemia Resistant hypertension Pressure sore of left ischium, stage 3 Difficulty walking Atherosclerosis of [place] arteries of extremities with rest pain, left leg Aftercare following surgery of the circulatory system Wound, surgical, nonhealing Abdominal pain Vitamin D deficiency Hypotension Hepatitis Vitamin B12 deficiency anemia Gout Renal failure (ARF), acute on chronic Wears glasses PVD (peripheral vascular disease) Gait instability TIA (transient ischemic attack) Syncope History of echocardiogram Cardiology follow-up encounter Nicotine dependence Nonhealing skin ulcer Peripheral arterial disease Chronic kidney disease History of diverticulitis Acute kidney injury Arthritis Kidney disease Acute kidney injury superimposed on chronic kidney disease Diverticulitis Weight gain with edema DM type 2, goal HbA1c < 7.5% Malnutrition Ulcer of perineum with fat layer exposed Ulcer of scrotum Ulcer of right groin with fat layer exposed Shingles Shingles Post-operative pain Elevated serum creatinine Hemoglobin A1c greater than 8.0 percent Hypokalemia Open wound of scrotum with complication Open wound of buttock with complication Non-healing open wound of right groin Abscess, perineum Abscess of scrotal wall Abscess of right groin Complete edentulism, class III Alcohol use Diabetes Back pain History of ulceration Shortness of breath on exertion History of pain when walking History of edema Hidradenitis suppurativa of anus Suppurative hidradenitis Gastric ulcer Ulcer of perianal area with fat layer exposed Nausea and vomiting Proteinuria due to type 2 diabetes mellitus Lupus (systemic lupus erythematosus) Weakness Edema of both legs Acute post-operative pain 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 Chronic pain Hyperlipidemia Coronary artery disease Diabetes mellitus Chronic obstructive pulmonary disease Debility Colostomy in place Complicated open wound of left thigh Open wound of left buttock with complication Abscess of buttock, left Back pain due to injury History of stress test Smoker Coronary artery disease Abscess of left thigh Wound infection Cellulitis Ankle pain Ankle pain Iron deficiency anemia Ulcer of perineum with fat layer exposed Skin ulcer of scrotum Anemia of chronic disease Acute blood loss anemia Ulcer of left groin with fat layer exposed Open wound of scrotum Acute postoperative anemia due to expected blood loss Hidradenitis suppurativa of anus Hypertension Tobacco dependence syndrome Anemia Malnutrition Cough Pneumonia involving right lung Pain in the groin Hydradenitis Diabetes mellitus type 2, uncontrolled, with complications Hypertension Hyperlipidemia associated with type 2 diabetes mellitus Diabetes type 2, uncontrolled COPD (chronic obstructive pulmonary disease) Hydradenitis Home Medications ?Medication ?Instructions ?Recorded ?Last Taken ?Type guselkumab 100 mg/mL subcutaneous 100 mg subcut Q4W ARTHRITIS 04/23/22 09/26/22 History syringe (Tremfya) carvedilol 25 mg tablet 25 mg PO BID #60 tabs 03/01/23 06/06/23 Rx nifedipine 90 mg tablet,extended 90 mg PO DAILY #90 tabs 05/08/23 12/25/23 Rx release 24 hr aspirin 81 mg tablet,delayed 81 mg PO DAILY 06/06/23 12/25/23 History release clopidogrel 75 mg tablet 75 mg PO DAILY #30 tabs 06/17/23 12/25/23 Rx atorvastatin 80 mg tablet 80 mg PO QHS #30 tabs 12/14/23 12/25/23 Rx hydralazine 50 mg tablet 50 mg PO TID #90 tabs 12/14/23 12/25/23 Rx pantoprazole 40 mg tablet,delayed 40 mg PO BID #60 tabs 12/14/23 12/25/23 Rx release Allergy/AdvReac Type Severity Reaction Status Date / Time Penicillins Allergy Unknown Verified 12/26/23 11:34 Sulfa (Sulfonamide Allergy Unknown Verified 12/26/23 11:34 Antibiotics) bupropion (From Wellbutrin) AdvReac Severe change in Verified 12/26/23 11:34 personality ,meanness and smoked more doxycycline AdvReac Severe Vomiting Verified 12/26/23 11:34 Family History Aunt Lung disease lung cancer Father Heart disease Hypertension Family history of high cholesterol Diabetes Mother Diabetes Daughter Epilepsy Surgical History Hx of vascular surgery History of excision of lesion History of incision and drainage History of coronary artery stent placement History of removal of cyst Hx of hernia repair History of tonsillectomy and adenoidectomy Social History household members: spouse Smoking Status: Current every day smoker tobacco type: cigarettes alcohol intake: never substance use type: does not use caffeine: Yes (7) Type: coffee additional social history: DOES NOT TAKE ASPIRIN DOES NOT TAKE IBUPROFEN Review of Systems (Anesthesia) ROS Narrative System reviewed and no additional complaints, except as documented.
--- NOTE | 2023-12-30 13:34 | PN.GI_ITS ---
Subjective Subjective Patient was severely short of breath over the weekend and is now only on room oxygen. He is doing a lot better. He has received blood transfusion. He will undergo EGD with push enteroscopy today look for his possible upper GI bleed. Objective Data Objective Data Vital Signs: Vital Signs Temp Pulse Resp BP Pulse Ox O2 Del Method O2 Flow Rate 97.8 F 62 12 195/68 H 95 Room Air 2 12/30/23 13:34 12/30/23 13:34 12/30/23 13:34 12/30/23 13:34 12/30/23 13:34 12/30/23 13:34 12/30/23 13:34 Oxygen Flow Rate (L/min) 2 Oxygen Delivery Method Room Air Weight: 159 lb 9.835 oz Body Mass Index (BMI) 24.3 Intake & Output: Intake and Output for Last 24 Hours 12/28/23 12/29/23 12/30/23 23:59 23:59 23:59 Intake Total 2050 / 0 1260 / 1620 470 / 470 Output Total 150 / 150 400 / 400 Balance 1900 / 1900 1260 / 1620 70 / 70 Lab / Micro Data 12/30/23 06:12 12/30/23 06:12 Labs: Laboratory Results - last 24 hr 12/29/23 17:05: POC Glucose 420 H 12/29/23 22:29: POC Glucose 363 H 12/30/23 06:12: Hgb 7.7 L, Hct 24.3 L, Sodium 142, Potassium 4.4, Chloride 113 H , Carbon Dioxide 21.0, Anion Gap 8, BUN 60 H, Creatinine 3.36 H, Estim Creat Clear Calc 22.62, Est GFR (MDRD) Af Amer 24 L, Est GFR (MDRD) Non-Af 20 L, BUN/Creatinine Ratio 17.9, Glucose 231 H, Calcium 8.3 L 12/30/23 06:24: POC Glucose 223 H 12/30/23 10:59: POC Glucose 167 H Micro: Microbiology 12/29/23 09:30 Sputum, Expectorated/Coughed Gram Stain - Final 12/27/23 09:20 Mucosa - Nose Respiratory Panel (PCR) - Final 12/27/23 09:20 Mucosa - Nose Coronavirus COVID-19 PCR - Final Rhythm Strip Rhythm Strip: Sinus Rhythm Rate: 66 Ectopy: None Physical Exam Narrative alert and oriented x3 Constitutional Narrative: Patient appears older than the stated age, he appears cachectic General Appearance: cooperative and well developed Orientation / Consciousness: awake, oriented to person, oriented to place and oriented to time HEENT normocephalic, head/scalp atraumatic and moist oral mucous membranes Eyes PERRL, EOMs intact bilaterally and conjunctivae normal Neck supple, no JVD, thyroid normal and no carotid bruits General: trachea midline Resp Resp Narrative: Patient has expiratory rhonchi and wheezes bilaterally, respiratory rate is 21, patient appears comfortable at rest Auscultation: rhonchi throughout and wheezes throughout; Negative for rales Cardio regular rate, regular rhythm, S1 normal heart sound, S2 normal heart sound, no murmurs, no rub and no gallops Cardio Narrative: Heart rate and rhythm is tachycardic GI normal to inspection, nondistended, normoactive bowel sounds, soft to palpation, non-tender and non-distended Extremity no clubbing, cyanosis or edema Skin no rashes or lesions noted General Skin Exam: no breakdown Neuro oriented x3, CN's II-XII intact bilaterally, no focal motor deficits and no sensory deficits noted Sensorium / Orientation: awake and alert Speech: speech normal Psych affect normal Assessment & Plan Assessment/Plan (1) GI (gastrointestinal bleed): (2) Acute on chronic blood loss anemia: (3) Recurrent gastrointestinal hemorrhage: PLAN: Plan 58-year-old with COPD presents with upper versus lower GI bleed. Acute anemia believed to be secondary from GI tract blood loss-patient's hemoglobin appears to be stable at this time patient will undergo endoscopy on 12/30/2023. hypoxic respiratory [id number] unclear, it appears that some component of this respiratory failure is most likely congestive heart failure as the patient improved with IV diuresis. Patient's Lasix will be changed to oral, patient is currently on room air Charges/Coding Visit Charges Inpatient E&M: 79664 [facility] Hosp L3
--- NOTE | 2023-12-30 16:24 | PCM.POST.ANE ---
Anesthesia: Postop Eval I Current Vital Signs Temperature: 98.3 F Pulse Rate: 72 Blood Pressure: 151/59 Respiratory Rate: 20 Pulse Ox: 93 Assessment Airway patent: Yes Spontaneous unlabored respirations: Yes nausea: No Vomiting: No Anesthesia Complication: No Fluid Hydration Crystalloid volume administer (ml): 10 Total IV fluid infused: 10 Progress Note Anesthesia document: Postop Eval 1 completed: Yes
[2023-12-30 17:54] LABS: Bedside Glucose 135 mg/dL (74-106)
--- NOTE | 2023-12-30 17:54 | OP.EGD_ITS ---
Patient Name: Ranulfo Santos Procedure Date: 12/30/2023 3:35 PM Date of : 1965 Age: 58 Procedure: Upper GI endoscopy Indications: Acute post hemorrhagic anemia, Iron deficiency anemia, Recent gastrointestinal bleeding Providers: Ed Carlson DO Medicines: Monitored Anesthesia Care Patient Profile: This is a 58 year old male. Refer to note in patient chart for documentation of history and physical. Patient has symptoms. Complications: No immediate complications. Procedure: Pre-Anesthesia Assessment: - Prior to the procedure, a History and Physical was performed, and patient medications and allergies were reviewed. The patient is competent. The risks and benefits of the procedure and the sedation options and risks were discussed with the patient. All questions were answered and informed consent was obtained. Patient identification and proposed procedure were verified by the physician in the pre-procedure area. Mental Status Examination: alert and oriented. Airway Examination: normal oropharyngeal airway and neck mobility. Respiratory Examination: clear to auscultation. CV Examination: normal. Prophylactic Antibiotics: The patient does not require prophylactic antibiotics. Prior Anticoagulants: The patient has taken dipyridamole, last dose was 13 days prior to procedure. ASA Grade Assessment: I - A normal, healthy patient. After reviewing the risks and benefits, the patient was deemed in satisfactory condition to undergo the procedure. The anesthesia plan was to use monitored anesthesia care (MAC). Immediately prior to administration of medications, the patient was re-assessed for adequacy to receive sedatives. The heart rate, respiratory rate, oxygen saturations, blood pressure, adequacy of pulmonary ventilation, and response to care were monitored throughout the procedure. The physical status of the patient was re-assessed after the procedure. After obtaining informed consent, the endoscope was passed under direct vision. Throughout the procedure, the patient's blood pressure, pulse, and oxygen saturations were monitored continuously. The Colonoscope was introduced through the mouth, and advanced to jejunum. Small bowel enteroscopy was deemed necessary. After obtaining informed consent, the endoscope was passed under direct vision. Throughout the procedure, the patient's blood pressure, pulse, and oxygen saturations were monitored continuously. The gastroscope was introduced through the mouth, and advanced to the mid-jejunum. The upper GI endoscopy was accomplished without difficulty. The patient tolerated the procedure well. Scope In: 4:08:03 PM Scope Out: 4:15:38 PM Total Procedure Duration Time 0 hours 7 minutes 35 seconds Findings: The examined esophagus was normal. A hiatal hernia was present. No other significant abnormalities were identified in a careful examination of the stomach. No gross lesions were noted in the fourth portion of the duodenum. A single 8 mm angiodysplastic lesion with bleeding was found in the jejunum. Coagulation for hemostasis using heater probe was successful. Estimated blood loss was minimal. Impression: - Normal esophagus. - Hiatal hernia. - No gross lesions in the fourth portion of the duodenum. - A single bleeding angiodysplastic lesion in the jejunum. Treated with a heater probe. - No specimens collected. Recommendation: - [facility]. - Resume regular diet. - Continue present medications. Procedure Code(s): --- Professional --- 76279, Small intestinal endoscopy, enteroscopy beyond second portion of duodenum, not including ileum; with control of bleeding (eg, injection, bipolar cautery, unipolar cautery, laser, heater probe, stapler, plasma outpatient therapist) CPT copyright 2021 [employer]. All rights reserved. The codes documented in this report are preliminary and upon executive coordinator review may be revised to meet current compliance requirements. Ed Carlson DO 12/30/2023 5:54:19 PM This report has been signed electronically. Number of Addenda: 0 Note Initiated On: 12/30/2023 3:35 PM
--- NOTE | 2023-12-30 17:55 | OP.CCLET_ITS ---
12/30/2023 Adina Bhat NP [facility] [address] [id number] Re : Upper GI endoscopy procedure for Ranulfo Santos Dear Ms. Bhat This procedure was performed on Saturday, December 30, 2023. My impressions and recommendations are as follows: Impressions : - Normal esophagus. - Hiatal hernia. - No gross lesions in the fourth portion of the duodenum. - A single bleeding angiodysplastic lesion in the jejunum. Treated with a heater probe. - No specimens collected. Recommendations : - [facility]. - Resume regular diet. - Continue present medications. My findings are described in the full procedure note, which is enclosed. If I can be of further assistance, please feel free to contact me at . Sincerely, Ed Carlson, 12/30/2023 5:54:19 PM This report has been signed electronically.
[2023-12-30] MEDS: guaiFENesin 1,200 MG Tablet 1200 MG PO (20:37)
[2023-12-30] MEDS: Insulin Lispro 100 UNIT/ML INSULN.PEN SC (20:37)
[2023-12-30] MEDS: Atorvastatin Calcium 80 MG Tablet PO (20:37)
[2023-12-30 21:04] LABS: Bedside Glucose 302 mg/dL (74-106)
[2023-12-31] VITALS (15 sets, daily range): BP systolic 156–192; BP diastolic 63–77; PULSE 63–81; RESP 16–20; TEMP 36.4–37.1; O2SAT 93–97
[2023-12-31] MEDS: NIFEdipine 90 MG Tablet PO (06:14)
[2023-12-31] MEDS: Carvedilol 25 MG Tablet PO ×2 (06:14→09:26)
[2023-12-31] MEDS: 0.9% Saline Lock 10 ML Syringe IV (06:15)
[2023-12-31] MEDS: Insulin Lispro 100 UNIT/ML INSULN.PEN SC ×4 (06:16→21:41)
[2023-12-31 06:29] LABS: Absolute Lymphocyte Count 0.47 X10^3/uL (0.83-4.51); Absolute Neutrophil Count 10.5 X10^3/uL (2.0-7.7); Basophil# 0.01 X10^3/uL; Basophil% 0.1 % (0-1); Hematocrit 29.7 % (40-54); Hemoglobin 9.3 g/dL (13.0-16.5); Lymphocyte # 0.47 X10^3/ul (0.83-4.51); Lymphocyte % 4.1 % (19-41); Mean Corp Hgb Conc 31.3 g/dL (32-36); Mean Corpuscular Hgb 27.4 pg (27.0-32.0); Mean Corpuscular Volume 87.6 fL (80-94); Monocyte# 0.27 X10^3/uL; Monocyte% 2.4 % (0-10); NRBC Flagged by Analyzer 0 % (0-5); Neutrophil # 10.45 X10^3/uL (2.7-7.7); Neutrophil % 92.1 % (47-70); POSITIVE DIFFERENTIAL YES; POSITIVE MORPHOLOGY YES; Platelet Count 320 K/mm3 (150-450); RBC Distribution Width CV 21.1 % (11.6-14.6); RBC Distribution Width SD 70.2 fl (35.1-43.9); Red Blood Count 3.39 M/mm3 (4.6-6.2); White Blood Count 11.4 K/mm3 (4.4-11.0)
[2023-12-31 06:34] LABS: Differential Indicated SCAN CRITERIA MET
[2023-12-31 06:36] LABS: Prothrombin Time (Protime)PT. 13.2 SECONDS (11.7-14.9)
[2023-12-31 06:42] LABS: Bedside Glucose 428 mg/dL (74-106)
[2023-12-31 06:46] LABS: AST(SGOT) 15 U/L (15-37); Alanine Aminotransfer ALT/SGPT 23 U/L (16-61); Albumin, Serum 2.5 g/dL (3.2-5.0); Alkaline Phosphatase 92 U/L (45-117); Anion Gap 4 (5-15); BUN 58 mg/dL (7-18); BUN/Creat Ratio 16.6 RATIO (10-20); Bilirubin, Direct 0.09 mg/dL (0.00-0.30); Calcium,Total 8.1 mg/dL (8.5-10.1); Chloride 110 mmol/L (98-107); EST Glomerular Filtration Rate 19 mL/min (>60); Est Glom Filt Rate - Afr Amer 23 mL/min (>60); Estimated Creatinine Clearance 21.71 ml/min; Glucose 425 mg/dL (74-106); Potassium 5.1 mmol/L (3.5-5.1); Protein, Total 6.5 g/dL (6.4-8.2); Sodium Level 136 mmol/L (136-145)
[2023-12-31] MEDS: Ipratropium/Albuterol Sulfate 3 ML AMPUL.NEB INHALATION ×2 (06:55→19:49)
--- NOTE | 2023-12-31 07:26 | POSTOPAN2_ITS ---
Anesthesia Postop Eval I Sum Postop Eval Completion status Anesthesia document: Postop Eval 1 completed: Yes Anesthesia Postop Eval I Summary Anesthesia Postop Eval I Summary: Anesthesia Postop Eval I: Assessment Summary Airway patent Yes 12/30/23 16:24 HOME HEALTH CARE CASE MANAGER.[email or web address] Spontaneous unlabored Yes 12/30/23 16:24 HOME HEALTH CARE CASE MANAGER.CSIR respirations Mental status nausea No 12/30/23 16:24 HOME HEALTH CARE CASE MANAGER.CSIR Vomiting No 12/30/23 16:24 HOME HEALTH CARE CASE MANAGER.CSIR Anesthesia Postop Eval I: Fluid Summary Crystalloid volume administer 10 12/30/23 16:24 HOME HEALTH CARE CASE MANAGER.CSIR (ml) Colloids volume administered ( ml) Blood Product volume administered (ml) Total IV fluid infused 10 12/30/23 16:24 HOME HEALTH CARE CASE MANAGER.CSIR Anesthesia Postop Eval I: Summary Notes Anesthesia Complication No 12/30/23 16:24 HOME HEALTH CARE CASE MANAGER.CSIR Anesthesia Complication Comment: Post-operative progress note Anesthesia: Postop Eval II Evaluation Mental status: Awake Pain Level: 0 nausea: No Vomiting: No
--- NOTE | 2023-12-31 07:26 | PCM.POSTANE2 ---
Anesthesia Postop Eval I Sum Postop Eval Completion status Anesthesia document: Postop Eval 1 completed: Yes Anesthesia Postop Eval I Summary Anesthesia Postop Eval I Summary: Anesthesia Postop Eval I: Assessment Summary Airway patent Yes 12/30/23 16:24 ASSISTANT CORPORATE SECRETARY.[email or web address] Spontaneous unlabored Yes 12/30/23 16:24 ASSISTANT CORPORATE SECRETARY.CSIR respirations Mental status nausea No 12/30/23 16:24 ASSISTANT CORPORATE SECRETARY.CSIR Vomiting No 12/30/23 16:24 ASSISTANT CORPORATE SECRETARY.CSIR Anesthesia Postop Eval I: Fluid Summary Crystalloid volume administer 10 12/30/23 16:24 ASSISTANT CORPORATE SECRETARY.CSIR (ml) Colloids volume administered ( ml) Blood Product volume administered (ml) Total IV fluid infused 10 12/30/23 16:24 ASSISTANT CORPORATE SECRETARY.CSIR Anesthesia Postop Eval I: Summary Notes Anesthesia Complication No 12/30/23 16:24 ASSISTANT CORPORATE SECRETARY.CSIR Anesthesia Complication Comment: Post-operative progress note Anesthesia: Postop Eval II Evaluation Mental status: Awake Pain Level: 0 nausea: No Vomiting: No
[2023-12-31 07:46] LABS: Anisocytosis 1+
--- NOTE | 2023-12-31 08:30 | PN.HOSP_ITS ---
Reason for Visit Reason for Visit: Diagnoses Acute posthemorrhagic anemia (12/26/23) Gastrointestinal hemorrhage, unspecified (12/26/23) Subjective Subjective Patient reports breathing is improving, no abdominal pain, overall beginning to feel better. Patient initially pretty tired on my exam however later was sitting up in bed eating in no acute distress. Objective Data Objective Data Vital Signs: Vital Signs Temp Pulse Resp BP Pulse Ox O2 Del Method O2 Flow Rate 97.5 F L 70 18 192/63 H 94 Nasal Cannula 2 12/31/23 06:03 12/31/23 06:55 12/31/23 06:55 12/31/23 06:03 12/31/23 06:55 12/31/23 06:55 12/31/23 06:55 Oxygen Flow Rate (L/min) 2 Oxygen Delivery Method Nasal Cannula Weight: 72.4 kg Body Mass Index (BMI) 24.3 Intake & Output: Intake and Output for Last 24 Hours 12/29/23 12/30/23 12/31/23 23:59 23:59 23:59 Intake Total 1260 / 1620 1270 / 1270 110 / 110 Output Total 700 / 700 Balance 1260 / 1620 570 / 570 110 / 110 Lab / Micro Data 12/31/23 05:50 12/31/23 05:50 Labs: Laboratory Results - last 24 hr 12/30/23 10:59: POC Glucose 167 H 12/30/23 17:33: POC Glucose 135 H 12/30/23 20:34: POC Glucose 302 H 12/31/23 05:50: WBC 11.4 H, RBC 3.39 L, Hgb 9.3 L, Hct 29.7 L, MCV 87.6, MCH 27.4, MCHC 31.3 L, RDW Std Deviation 70.2 H, RDW Coeff of Dana 21.1 H, Plt Count 320, MPV 10.0, Immature Gran % (Auto) 1.300 H, Neut % (Auto) 92.1 H, Lymph % (Auto) 4.1 L, [place] % (Auto) 2.4, Eos % (Auto) 0.0, Baso % (Auto) 0.1, Absolute Neuts (auto) 10.5 H, Absolute Lymphs (auto) 0.47 L, Nucleated RBC % 0, Differential Comment COMMENT, Anisocytosis 1+, PT 13.2, INR 1.0, Sodium 136, Potassium 5.1, Chloride 110 H, Carbon Dioxide 22.0, Anion Gap 4 L, BUN 58 H, C reatinine 3.50 H, Estim Creat Clear Calc 21.71, Est GFR (MDRD) Af Amer 23 L, Est GFR (MDRD) Non-Af 19 L, BUN/Creatinine Ratio 16.6, Glucose 425 H, Calcium 8.1 L, Total Bilirubin 0.30, Direct Bilirubin 0.09, AST 15, ALT 23, Alkaline Phosphatase 92, Total Protein 6.5, Albumin 2.5 L, Globulin 4.0 12/31/23 06:09: POC Glucose 428 H Micro: Microbiology 12/29/23 09:30 Sputum, Expectorated/Coughed Gram Stain - Final 12/27/23 09:20 Mucosa - Nose Respiratory Panel (PCR) - Final 12/27/23 09:20 Mucosa - Nose Coronavirus COVID-19 PCR - Final Rhythm Strip Rhythm Strip: Sinus Rhythm Rate: 66 Ectopy: None Physical Exam Narrative General: Patient tired but did wake up and answer questions appropriately HEENT: Atraumatic, normocephalic Eyes: Normal conjunctiva Neck: Supple Respiratory: Improved respiratory effort but coarse breath sounds bilaterally Cardiovascular: Regular rate and rhythm GI: Soft, nontender, nondistended Extremities: No edema Musculoskeletal: Moving all extremities Neuro: No overt focal neurological deficits Skin: No rashes appreciated Psych: Cooperative Assessment & Plan Assessment/Plan (1) GI (gastrointestinal bleed): PLAN: Plan # Acute on chronic anemia presumed secondary to recurrent GI bleed -Had recent endoscopy 1 month ago due to his anemia and found to have grade D erosive esophagitis with active bleeding and this was cauterized -On representation to our facility had hemoglobin of 5 -Patient started on IV PPI, given 2 units packed red blood cells and GI consulted -Patient's aspirin and Plavix held -Patient had unstable respiratory status so endoscopy canceled on admission and rescheduled for 12/30/2023 -12/30: EGD showed 1 angiodysplastic lesion which was treated, discussed antiplatelet with GI, Plavix resumed, aspirin to resume in 5 days hemoglobin stable today # Hypoxic respiratory failure secondary to exacerbation of heart failure preserved ejection fraction -Patient improved with IV diuresis -Patient is maintained on IV diuresis, doing well on 2 L O2 but desaturates to mid 80s off of oxygen -12/30: Back on IV steroids, patient had been receiving IV Lasix, creatinine bumped up and patient no longer appearing significantly volume overloaded so this was held today, continue to monitor weights and volume status # Hyperglycemia -Patient's A1c several days ago was 6.4 however on steroids patient has had significant elevations in his glucose but it significantly improved so not on IV steroids, IV steroids 1 today's do not think we need to start long-acting but will further increase sliding scale factor, if it does not improve once de- escalated to oral prednisone will need further adjustments -Continue glucose checks and sliding scale insulin # Suspected underlying COPD -Patient responded well to IV Lasix but now has had some increased shortness of breath after IV steroids transition to p.o. steroids, will transition back to IV steroids, incentive spirometer, Mucinex -Will need outpatient pulmonology follow-up -Continue nebs -12/30: On IV steroids which will transition to p.o. prednisone tomorrow and nebs, remains on 2 L O2, will need outpatient pulm follow-up # CKD stage III IV -Appears to be at baseline -Avoid nephrotoxic agents -Daily BMPs -12/30: Uptrending creatinine, suspect due to patient's continued diuresis, given patient's volume status is improving we will hold this today, repeat creatinine in a.m. if patient's breathing stable and creatinine improving can consider DC tomorrow pending patient's status # Hypertension -Significantly variable despite hydralazine, carvedilol, Lasix, nifedipine -May need to consider adding clonidine or additional agent if remains uncontrolled -12/30: Continues to be widely variable, do suspect he will likely need close outpatient follow-up # History of PAD status post left SFA -Status post stent placement 05/2023 -Was on aspirin, Plavix, high intensity statin prior to admission which been held -Resume when cleared to do so by GI -12/30: Resume Plavix, hold aspirin for another 5 days # Concern for recent minor stroke -Last month, had negative MRI head and neck and had moderate stenosis of ICA, occlusion of right posterior cerebral artery and possible occlusion of the distal left vertebral artery -Patient was already on aspirin and Plavix and high intensity statin and it was recommended that this be continued -Resume when cleared to do so by GI 12/30: Resume Plavix, hold aspirin for another 5 days Chronic medical problems: #Tobacco use -Advise cessation -Nicotine replacement available if desired #Hx SLE -On Tremfya q4 weeks #DVT ppx: SCDs Юлия Chester MD Charges/Coding Visit Charges Inpatient E&M: 81763 Subs Hosp L2
[2023-12-31] MEDS: hydrALAZINE 50 MG Tablet PO ×4 (09:25→21:40)
[2023-12-31] MEDS: guaiFENesin 1,200 MG Tablet 1200 MG PO (09:26)
[2023-12-31] MEDS: Pantoprazole Sodium 40 MG in 0.9% Normal Saline (100mL MB+) 100 ML 330 MG IV ×2 (09:30→21:34)
[2023-12-31 12:16] LABS: Bedside Glucose 253 mg/dL (74-106)
[2023-12-31] MEDS: Clopidogrel Bisulfate 75 MG Tablet PO (14:15)
--- NOTE | 2023-12-31 16:46 | PN.GI_ITS ---
Subjective Subjective Patient underwent push enteroscopy yesterday. Findings: The examined esophagus was normal. A hiatal hernia was present. No other significant abnormalities were identified in a careful examination of the stomach. No gross lesions were noted in the fourth portion of the duodenum. A single 8 mm angiodysplastic lesion with bleeding was found in the jejunum. Coagulation for hemostasis using heater probe was successful. Estimated blood loss was minimal. Impression: - Normal esophagus. - Hiatal hernia. - No gross lesions in the fourth portion of the duodenum. - A single bleeding angiodysplastic lesion in the jejunum. Treated with a heater probe. - No specimens collected. Objective Data Objective Data Vital Signs: Vital Signs Temp Pulse Resp BP Pulse Ox O2 Del Method O2 Flow Rate 98.7 F 67 17 158/76 H 94 Room Air 2 12/31/23 09:43 12/31/23 14:16 12/31/23 09:43 12/31/23 14:16 12/31/23 09:43 12/31/23 09:43 12/31/23 08:34 Oxygen Flow Rate (L/min) 2 Oxygen Delivery Method Room Air Weight: 159 lb 9.835 oz Body Mass Index (BMI) 24.3 Intake & Output: Intake and Output for Last 24 Hours 12/29/23 12/30/23 12/31/23 23:59 23:59 23:59 Intake Total 1260 / 1620 1270 / 1270 220 / 220 Output Total 700 / 700 Balance 1260 / 1620 570 / 570 220 / 220 Lab / Micro Data 12/31/23 05:50 12/31/23 05:50 Labs: Laboratory Results - last 24 hr 12/30/23 17:33: POC Glucose 135 H 12/30/23 20:34: POC Glucose 302 H 12/31/23 05:50: WBC 11.4 H, RBC 3.39 L, Hgb 9.3 L, Hct 29.7 L, MCV 87.6, MCH 27.4, MCHC 31.3 L, RDW Std Deviation 70.2 H, RDW Coeff of Dana 21.1 H, Plt Count 320, MPV 10.0, Immature Gran % (Auto) 1.300 H, Neut % (Auto) 92.1 H, Lymph % (Auto) 4.1 L, [place] % (Auto) 2.4, Eos % (Auto) 0.0, Baso % (Auto) 0.1, Absolute Neuts (auto) 10.5 H, Absolute Lymphs (auto) 0.47 L, Nucleated RBC % 0, Differential Comment COMMENT, Anisocytosis 1+, PT 13.2, INR 1.0, Sodium 136, Potassium 5.1, Chloride 110 H, Carbon Dioxide 22.0, Anion Gap 4 L, BUN 58 H, C reatinine 3.50 H, Estim Creat Clear Calc 21.71, Est GFR (MDRD) Af Amer 23 L, Est GFR (MDRD) Non-Af 19 L, BUN/Creatinine Ratio 16.6, Glucose 425 H, Calcium 8.1 L, Total Bilirubin 0.30, Direct Bilirubin 0.09, AST 15, ALT 23, Alkaline Phosphatase 92, Total Protein 6.5, Albumin 2.5 L, Globulin 4.0 12/31/23 06:09: POC Glucose 428 H 12/31/23 11:47: POC Glucose 253 H Micro: Microbiology 12/29/23 09:30 Sputum, Expectorated/Coughed Gram Stain - Final 12/29/23 09:30 Sputum, Expectorated/Coughed Respiratory Culture - Preliminary Yeast Like Organism 12/27/23 09:20 Mucosa - Nose Respiratory Panel (PCR) - Final 12/27/23 09:20 Mucosa - Nose Coronavirus COVID-19 PCR - Final Rhythm Strip Rhythm Strip: Sinus Rhythm Rate: 66 Ectopy: None Physical Exam Narrative General: Patient tired but did wake up and answer questions appropriately HEENT: Atraumatic, normocephalic Eyes: Normal conjunctiva Neck: Supple Respiratory: Improved respiratory effort but coarse breath sounds bilaterally Cardiovascular: Regular rate and rhythm GI: Soft, nontender, nondistended Extremities: No edema Musculoskeletal: Moving all extremities Neuro: No overt focal neurological deficits Skin: No rashes appreciated Psych: Cooperative Assessment & Plan Assessment/Plan (1) GI (gastrointestinal bleed): (2) Acute on chronic blood loss anemia: PLAN: Plan 58-year-old gentleman with multiple comorbidities including end-stage COPD, chronic renal failure and recurrent GI bleeding secondary to antiplatelet therapy 1. Acute anemia believed to be secondary from GI tract blood loss-patient's hemoglobin appears to be stable at this time patient will undergo endoscopy on 12/30/2023. 12/30-patient will need capsule endoscopy as an outpatient. He may also benefit from colonoscopy if his hemoglobin continues to drop due to his need for antiplatelet therapy. Okay to restart Plavix today. Hold aspirin therapy for 5 days. 2. hypoxic respiratory alafudt-ftyco-[id number] unclear, it appears that some component of this respiratory failure is most likely congestive heart failure as the patient improved with IV diuresis. Patient's Lasix will be changed to oral, patient is currently on room air Total clinical time spent by myself addressing the patient's medical issues, reviewing all of his data, and collaborating with patient's care team: 35 minutes Charges/Coding Visit Charges Inpatient E&M: 06627 Subs Hosp L3
[2023-12-31 17:10] LABS: Bedside Glucose 323 mg/dL (74-106)
[2023-12-31] MEDS: Sodium Ferric Gluconat/Sucrose 250 MG in 0.9% Normal Saline (250mL Bag) 250 ML 135 MG IV (17:20)
[2023-12-31] MEDS: Atorvastatin Calcium 80 MG Tablet PO (21:40)
[2023-12-31 22:51] LABS: Bedside Glucose 368 mg/dL (74-106)
[2023-12-31] MEDS: Albuterol 2.5 MG/3 ML VIAL.NEB. INHALATION (23:12)
[2024-01-01] VITALS (13 sets, daily range): BP systolic 172–205; BP diastolic 57–80; PULSE 68–74; RESP 16–18; TEMP 36.4–36.7; O2SAT 93–98
[2024-01-01] MEDS: hydrALAZINE 20 MG/ML Vial 10 MG IV ×2 (02:42→08:18)
[2024-01-01] MEDS: 0.9% Saline Lock 10 ML Syringe IV (02:43)
[2024-01-01 05:10] LABS: Absolute Neutrophil Count 13.5 X10^3/uL (2.0-7.7); Basophil# 0.02 X10^3/uL; Basophil% 0.1 % (0-1); Hematocrit 26.1 % (40-54); Hemoglobin 8.4 g/dL (13.0-16.5); Mean Corp Hgb Conc 32.2 g/dL (32-36); Mean Corpuscular Hgb 27.9 pg (27.0-32.0); Mean Corpuscular Volume 86.7 fL (80-94); Monocyte# 0.86 X10^3/uL; Monocyte% 5.5 % (0-10); NRBC Flagged by Analyzer 0 % (0-5); Neutrophil # 13.46 X10^3/uL (2.7-7.7); Neutrophil % 85.9 % (47-70); POSITIVE MORPHOLOGY YES; Platelet Count 304 K/mm3 (150-450); RBC Distribution Width CV 20.2 % (11.6-14.6); RBC Distribution Width SD 65.4 fl (35.1-43.9); Red Blood Count 3.01 M/mm3 (4.6-6.2); White Blood Count 15.7 K/mm3 (4.4-11.0)
[2024-01-01 05:15] LABS: Differential Indicated SCAN CRITERIA MET
[2024-01-01 05:36] LABS: Anion Gap 7 (5-15); BUN 58 mg/dL (7-18); Chloride 112 mmol/L (98-107); Creatinine, Serum 3.41 mg/dL (0.70-1.30); EST Glomerular Filtration Rate 20 mL/min (>60); Est Glom Filt Rate - Afr Amer 24 mL/min (>60); Estimated Creatinine Clearance 22.29 ml/min; Glucose 350 mg/dL (74-106); Magnesium 2.1 mg/dL (1.6-2.6); Potassium 4.5 mmol/L (3.5-5.1); Sodium Level 139 mmol/L (136-145)
[2024-01-01 06:14] LABS: Anisocytosis RARE
[2024-01-01] MEDS: Insulin Lispro 100 UNIT/ML INSULN.PEN SC ×2 (06:15→11:39)
[2024-01-01 06:38] LABS: Bedside Glucose 285 mg/dL (74-106)
[2024-01-01] MEDS: predniSONE 20 MG Tablet 40 MG PO (08:24)
--- NOTE | 2024-01-01 09:31 | PCM.PN.HOSP ---
Reason for Visit Reason for Visit: Diagnoses Acute posthemorrhagic anemia (12/26/23) Gastrointestinal hemorrhage, unspecified (12/26/23) Objective Data Objective Data Vital Signs: Vital Signs Temp Pulse Resp BP Pulse Ox O2 Del Method O2 Flow Rate 98.1 F 70 16 205/73 H 98 Room Air 2 01/01/24 08:34 01/01/24 08:34 01/01/24 08:34 01/01/24 08:34 01/01/24 08:34 01/01/24 08:34 01/01/24 07:20 Oxygen Flow Rate (L/min) 2 Oxygen Delivery Method Room Air Weight: 72.4 kg Body Mass Index (BMI) 24.3 Intake & Output: Intake and Output for Last 24 Hours 12/30/23 12/31/23 01/01/24 23:59 23:59 23:59 Intake Total 1270 / 1270 1200 / 1200 100 / 100 Output Total 700 / 700 150 / 150 Balance 570 / 570 1200 / 1200 -50 / -50 Lab / Micro Data 01/01/24 04:15 01/01/24 04:15 Labs: Laboratory Results - last 24 hr 12/31/23 05:50: Magnesium 2.0 12/31/23 11:47: POC Glucose 253 H 12/31/23 16:47: POC Glucose 323 H 12/31/23 21:41: POC Glucose 368 H 01/01/24 04:15: WBC 15.7 H, RBC 3.01 L, Hgb 8.4 L, Hct 26.1 L, MCV 86.7, MCH 27.9, MCHC 32.2, RDW Std Deviation 65.4 H, RDW Coeff of Dana 20.2 H, Plt Count 304, MPV 10.0, Immature Gran % (Auto) 1.500 H, Neut % (Auto) 85.9 H, Lymph % (Auto) 7.0 L, Dickson % (Auto) 5.5, Eos % (Auto) 0.0, Baso % (Auto) 0.1, Absolute Neuts (auto) 13.5 H, Absolute Lymphs (auto) 1.10, Nucleated RBC % 0, Anisocytosis RARE, Sodium 139, Potassium 4.5, Chloride 112 H, Carbon Dioxide 20.0 L, Anion Gap 7, BUN 58 H, Creatinine 3.41 H, Estim Creat Clear Calc 22.29, Est GFR (MDRD) Af Amer 24 L, Est GFR (MDRD) Non-Af 20 L, BUN/Creatinine Ratio 17.0, Glucose 350 H, Calcium 8.0 L, Magnesium 2.1 01/01/24 06:13: POC Glucose 285 H Micro: Microbiology 12/29/23 09:30 Sputum, Expectorated/Coughed Gram Stain - Final 12/29/23 09:30 Sputum, Expectorated/Coughed Respiratory Culture - Preliminary Yeast Like Organism 12/27/23 09:20 Mucosa - Nose Respiratory Panel (PCR) - Final 12/27/23 09:20 Mucosa - Nose Coronavirus COVID-19 PCR - Final Rhythm Strip Rhythm Strip: Sinus Rhythm Rate: 66 Ectopy: None Assessment & Plan Assessment/Plan (1) GI (gastrointestinal bleed): PLAN: Plan # Acute on chronic anemia presumed secondary to recurrent GI bleed -Had recent endoscopy 1 month ago due to his anemia and found to have grade D erosive esophagitis with active bleeding and this was cauterized -On representation to our facility had hemoglobin of 5 -Patient started on IV PPI, given 2 units packed red blood cells and GI consulted -Patient's aspirin and Plavix held -Patient had unstable respiratory status so endoscopy canceled on admission and rescheduled for 12/30/2023 -12/30: EGD showed 1 angiodysplastic lesion which was treated, discussed antiplatelet with GI, Plavix resumed, aspirin to resume in 5 days hemoglobin stable today -12/31: Hemoglobin 8.4 but no evidence of ongoing blood loss, has been variable day-to-day this seems within the margin of patient's fluctuations # Hypoxic respiratory failure secondary to exacerbation of heart failure preserved ejection fraction -Patient improved with IV diuresis -Patient is maintained on IV diuresis, doing well on 2 L O2 but desaturates to mid 80s off of oxygen -12/30: Back on IV steroids, patient had been receiving IV Lasix, creatinine bumped up and patient no longer appearing significantly volume overloaded so this was held today, continue to monitor weights and volume status -12/31: Patient taken off IV Lasix, had not been on Lasix at home, will plan to discharge with instructions for as needed Lasix # Hyperglycemia -Patient's A1c several days ago was 6.4 however on steroids patient has had significant elevations in his glucose but it significantly improved so not on IV steroids, IV steroids 1 today's do not think we need to start long-acting but will further increase sliding scale factor, if it does not improve once de-escalated to oral prednisone will need further adjustments -Continue glucose checks and sliding scale insulin # Suspected underlying COPD -Patient responded well to IV Lasix but now has had some increased shortness of breath after IV steroids transition to p.o. steroids, will transition back to IV steroids, incentive spirometer, Mucinex -Will need outpatient pulmonology follow-up -Continue nebs -12/30: On IV steroids which will transition to p.o. prednisone tomorrow and nebs, remains on 2 L O2, will need outpatient pulm follow-up -12/31: Patient saturations improving and breathing improving as well, will likely be able to discharge with a total of 5 days of oral prednisone and prescription for albuterol inhaler # CKD stage III IV -Appears to be at baseline -Avoid nephrotoxic agents -Daily BMPs -12/30: Uptrending creatinine, suspect due to patient's continued diuresis, given patient's volume status is improving we will hold this today, repeat creatinine in a.m. if patient's breathing stable and creatinine improving can consider DC tomorrow pending patient's status -12/31: Did improve today with cessation of Lasix, patient does not appear to still be significantly volume overloaded, can likely take these as needed on discharge # Hypertension -Significantly variable despite hydralazine, carvedilol, Lasix, nifedipine -May need to consider adding clonidine or additional agent if remains uncontrolled -12/30: Continues to be widely variable, do suspect he will likely need close outpatient follow-up -12/31: Wide fluctuations but overall remains very elevated, will begin clonidine as needed # History of PAD status post left SFA -Status post stent placement 05/2023 -Was on aspirin, Plavix, high intensity statin prior to admission which been held -Resume when cleared to do so by GI -12/30: Resume Plavix, hold aspirin for another 5 days -12/31: Will need repeat hemoglobin on outpatient basis, resume aspirin in 4 days, tolerating Plavix # Concern for recent minor stroke -Last month, had negative MRI head and neck and had moderate stenosis of ICA, occlusion of right posterior cerebral artery and possible occlusion of the distal left vertebral artery -Patient was already on aspirin and Plavix and high intensity statin and it was recommended that this be continued -Resume when cleared to do so by GI 12/30: Resume Plavix, hold aspirin for another 5 days -12/31: Continue Plavix, resume aspirin in 4 days Chronic medical problems: #Tobacco use -Advise cessation -Nicotine replacement available if desired #Hx SLE -On Tremfya q4 weeks #DVT ppx: SCDs Юлия Chester MD Time spent in the patient's overall evaluation,decision-making process, review of diagnostic data, adjustment of management, discussion with other providers, nursing nursing and ancillary staff involved in patient's care documentation, 38 Minutes Charges/Coding Visit Charges Inpatient E&M: 93438 Subs Hosp L2
[2024-01-01] MEDS: NIFEdipine 90 MG Tablet PO (09:56)
[2024-01-01] MEDS: hydrALAZINE 50 MG Tablet PO ×2 (09:56→15:15)
[2024-01-01] MEDS: guaiFENesin 1,200 MG Tablet 1200 MG PO (09:56)
[2024-01-01] MEDS: Carvedilol 25 MG Tablet PO (09:56)
[2024-01-01] MEDS: Clopidogrel Bisulfate 75 MG Tablet PO (09:56)
[2024-01-01] MEDS: Pantoprazole Sodium 40 MG in 0.9% Normal Saline (100mL MB+) 100 ML 330 MG IV (10:03)
[2024-01-01] MEDS: cloNIDine HCl 0.1 MG Tablet 0.05 MG PO (10:44)
[2024-01-01 12:00] LABS: Bedside Glucose 284 mg/dL (74-106)
--- NOTE | 2024-01-01 14:43 | DCINST_ITS ---
Discharge Instructions Diet Discharge Diet: - (-DASH diet, 3000 mg sodium restriction, 2 L fluid restriction) Activity Discharge Activity: May Not Drive and - (Increase activity as tolerated) Follow Up Care Test Results: Test results from this visit will be discussed in further detail at your follow- up appointment, if applicable. Discharge Plan Admission Admit Date/Time: 12/26/23 13:19 Primary Reason for Your Visit: Dark stool in ostomy Attending Provider: Юлия Chester Primary Care Provider: Adina Bhat NP Consulting Providers: Lamine Smith; Nixon Wall Instructions Patient Instructions: ED How to Quit Smoking Additional Instructions / Restrictions: DISCHARGE INSTRUCTIONS PLEASE READ *Please take this with you to your next doctors appointment* - you have had clonidine 0.05 mg added to your blood pressure regimen due to persistently elevated blood pressures, your hydralazine was also increased to 4 times daily - you have been resumed on your Plavix, please resume your aspirin in 4 days -Would recommend lab work (BMP and CBC) to check your Kidney function and blood counts in 2 to 3 days through your primary care physician's office. Please call their office upon discharge to obtain order for lab work. -You will need to follow-up with Dr. Carlson with GI in his office upon discharge. Please call his office to schedule an appointment (ph. [phone]) -You will be discharged on an additional 4 days of oral prednisone and also given prescription for albuterol inhaler -Please follow-up with Pulmonology upon discharge. 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 Please call their office to schedule an appointment upon discharge. - due to retaining fluid you were on Lasix during your hospitalization with improvement in your breathing. You will be prescribed 20 mg of Lasix and instructed to take a dose if you gain more than 2 pounds in 1 day or 5 pounds in 1 week. If you have to take the Lasix it is advised that you call your physician for further instructions. -Weigh yourself every day. A sudden weight gain can mean you are retaining fluid. Weigh yourself at the same time of day and in the same kind of clothes. Ideally, weigh yourself first thing in the morning after you empty your bladder, but before you eat breakfast. -Please call your physician if your weight goes up by more than 2 pounds in 1 day or 5 pounds in 1 week. This can be a sign that you are retaining more fluid than you should be. - Your blood sugars were significantly elevated while on high doses of steroids, they improve once steroids are discontinued so you will not be discharged on any additional agents but will be important to follow-up closely with your primary care physician -Please follow-up with nephrology upon discharge. Please call their office to schedule hospital follow-up appointment upon discharge. -We discussed your vision which is chronically impaired but has worsened with glucose fluctuations, this should improve over time once glucose levels improved but would recommend following up with your real estate valuer in 1 to 2 days, please call their office upon discharge to schedule an appointment -Please call your primary care provider's office upon discharge to schedule a hospital follow up within 1 week. -For any concerning signs or symptoms please call 911 or proceed to the nearest emergency department Discharge Orders/Prescriptions Prescriptions: New furosemide [Lasix] 20 mg tablet 20 mg PO DAILY PRN (Reason: weight gain) Qty: 10 0RF Rx Instructions: take a dose if you gain more than 2 pounds in 1 day or 5 pounds in 1 week. clonidine HCl 0.1 mg Tablet 0.05 mg PO BID 30 Days Qty: 30 0RF prednisone 20 mg Tablet 40 mg PO DAILY 4 Days Qty: 8 0RF hydralazine 50 mg Tablet 50 mg PO 4X/DAY 30 Days Qty: 120 0RF albuterol sulfate 90 mcg/actuation HFA aerosol inhaler See Rx Instructions .ROUTE .COMPLEX PRN (Reason: shortness of breath or wheezing) Qty: 8.5 0RF Rx Instructions: 1-2 puffs every 4-6 hours as needed for shortness of breath or wheezing Continued Tremfya 100 mg/mL syringe 100 mg subcut Q4W Patient Comments: PT RICO THIS IS EVERY 8 WEEKS, DOESNT REMEMBER LAST DOSE carvedilol 25 mg tablet 25 mg PO BID Qty: 60 12RF Rx Instructions: must administer with a meal/food atorvastatin 80 mg Tablet 80 mg PO QHS Qty: 30 2RF pantoprazole 40 mg Tablet,Delayed Release (Dr/Ec) 40 mg PO BID Qty: 60 2RF nifedipine 90 mg tablet extended release 24hr 90 mg PO DAILY Qty: 90 3RF clopidogrel 75 mg tablet 75 mg PO DAILY Qty: 30 12RF Held aspirin 81 mg tablet,delayed release (DR/EC) 81 mg PO DAILY Hold Instructions: Resume on 01/06/24. Discontinued hydralazine 50 mg Tablet 50 mg PO TID Qty: 90 2RF Referrals / Follow Up: Pat Baird MD [Med Staff - Consulting] - Ed Carlson DO [Med Staff - Active Staff] - (Please call the office to schedule an appt. ) Sandy Aaron PRODUCTION SUPPORT SUPERVISOR, PRODUCTION SUPPORT SUPERVISOR-C [Med Staff - Adv Practice Prof] - 03/16/24 12:45 pm Adina Bhat NP, PRODUCTION SUPPORT SUPERVISOR-C [Primary Care Provider] - 01/03/24 5:30 pm Disposition Disposition (needs filled in before D/C Order can be placed): Home, Self Care
--- NOTE | 2024-01-01 15:07 | DS.PCM_ITS ---
Providers Date of Admission: 12/26/23 Date of Discharge: 01/01/24 Primary Care Physician: DEVONTE Zimmerman Consultations 12/27/23 08:52 Consult: Hardware Test Engineer / Pulmonary Medicine Routine Consulting Provider: Intensivists/Pulmonary Med Reason for Consult: hypoxia EMERGENT Consult: No Notified: Yes Date Notified: 12/27/23 Time Notified: 08:53 Method of Notification: Verbal 12/27/23 12:47 Consult: Gastroenterology Routine Consulting Provider: [facility] Reason for Consult: Possible GI bleed EMERGENT Consult: No Notified: Yes Date Notified: 12/27/23 Time Notified: 12:47 Method of Notification: ED Physician Initiated Reason For Visit: RECURRENT GIB W/ ACUTE ON CHRONIC ANEMIA Diagnosis Discharge Diagnosis (1) GI (gastrointestinal bleed): Status: Acute Code(s): K92.2 - Gastrointestinal hemorrhage, unspecified Plan # Acute on chronic anemia presumed secondary to recurrent GI bleed # Hypoxic respiratory failure secondary to exacerbation of heart failure preserved ejection fraction # Hyperglycemia # Suspected underlying COPD # CKD stage IV # Hypertension # History of PAD status post left SFA # Concern for recent minor stroke #Tobacco use #Hx SLE Medications at Discharge Home Medications guselkumab 100 mg/mL subcutaneous syringe (Tremfya) 100 mg subcut Q4W ARTHRITIS 04/23/22 carvedilol 25 mg tablet 25 mg PO BID #60 tabs 03/01/23 nifedipine 90 mg tablet,extended release 24 hr 90 mg PO DAILY #90 tabs 05/08/23 aspirin 81 mg tablet,delayed release 81 mg PO DAILY 06/06/23 clopidogrel 75 mg tablet 75 mg PO DAILY #30 tabs 06/17/23 atorvastatin 80 mg tablet 80 mg PO QHS #30 tabs 12/14/23 pantoprazole 40 mg tablet,delayed release 40 mg PO BID #60 tabs 12/14/23 albuterol sulfate 90 mcg/actuation aerosol inhaler See Rx Instructions .Route .COMPLEX PRN shortness of breath or wheezing #8.5 grams 01/01/24 clonidine HCl 0.1 mg tablet 0.05 mg (1/2 x 0.1 mg) PO BID 30 days #30 tabs 01/01/24 furosemide 20 mg tablet (Lasix) 20 mg PO DAILY PRN weight gain #10 tabs 01/01/24 hydralazine 50 mg tablet 50 mg PO 4X/DAY 30 days #120 tabs 01/01/24 prednisone 20 mg tablet 40 mg (2 x 20 mg) PO DAILY 4 days #8 tabs 01/01/24 Hospital Course Procedures - (egd) Summary of Care Provided Minutes Spent on Discharge: 34 Hospital Course: 58-year-old male history of recurrent GI bleeds, heart failure preserved ejection fraction, severe hidradenitis suppurativa, colostomy, suspected COPD with ongoing tobacco use, CKD stage IV, hypertension, PAD status post left SFA, suspected recent minor stroke, history of lupus who presented [facility] ED 12/26/2023 with worsening anemia concern for recurrent GI bleed. Had been hospitalized here 12/09 through 12/13 for concern for stroke and though MRI was negative there was concern that he had minor stroke and was discharged on aspirin, Plavix, high intensity statin. Also had a history of PAD status post left SFA stent placement 05/2023. EGD was done by Dr. Carlson 12/10 and found to have grade D erosive esophagitis with active bleeding that was cauterized and he had 1 unit packed red blood cells and was discharged on 12/13. Since then he has had slight worsening shortness of breath with exertion and then noticed darker stools in his colostomy bag. Hemoglobin came back at 7.1 on 12/23 which was down from 9.5 in 12/13 and he was instructed to come to the ED. Repeat hemoglobin in the ED was 5 and patient was given 2 units packed red blood cells and given an IV Protonix bolus and GI was contacted. Hospitalist contacted for admission. Patient initially supposed to get EGD however after 2 units packed red blood cells patient had increased oxygen need and was noted to have crackles and was given 20 of IV Lasix x 1. There also was concern for COPD and/or possible pneumonia so he was covered with antibiotics and initiated on bronchodilators and IV steroids with continued gentle diuresis. Patient improved with gentle diuresis and had his IV steroids transition to p.o. but continued having some difficulty breathing so they were temporarily changed back to IV patient did have further improvement. He did have his EGD 12/29 which showed 1 angiodysplastic lesion which was treated. Hemoglobin had been fairly stable after initial packed red blood cell transfusion. Antiplatelets were discussed with GI and Plavix was resumed with plans for resuming aspirin in 5 days. During patient's hospitalization he did also have hyperglycemia directly associated with his high-dose IV steroids especially given his A1c was only 6.4. This will need to be followed up on an outpatient basis however given it was exacerbated with steroid use do not think patient needs to go out acutely on insulin and given GFR I do not think he is a good candidate for metformin in the short-term. Additionally during his hospitalization his creatinine slowly increased which was suspected to be secondary to his diuresis, once this was discontinued as respiratory status improved there was improvement in creatinine again. Overall patient feeling better on day of discharge with no further ongoing active bleeding noted, breathing improved, before discharge patient did say that his vision is usually decreased at baseline but it has been a little bit worse over the past couple of days, discussed this was likely due to the fluctuations in his glucose this should improve with stabilization of his glucose but to follow-up with his commercial real estate lender in 1 to 2 days. Discharge instructions as followed: DISCHARGE INSTRUCTIONS PLEASE READ *Please take this with you to your next doctors appointment* - you have had clonidine 0.05 mg added to your blood pressure regimen due to persistently elevated blood pressures, your hydralazine was also increased to 4 times daily - you have been resumed on your Plavix, please resume your aspirin in 4 days -Would recommend lab work (BMP and CBC) to check your Kidney function and blood counts in 2 to 3 days through your primary care physician's office. Please call their office upon discharge to obtain order for lab work. -You will need to follow-up with Dr. Carlson with GI in his office upon discharge. Please call his office to schedule an appointment (ph. [phone]) -You will be discharged on an additional 4 days of oral prednisone and also given prescription for albuterol inhaler -Please follow-up with Pulmonology upon discharge. if you do not already have a color repairer you can establish with our local pulmonology clinic, information below. Please call their office to schedule an appointment upon discharge. - due to retaining fluid you were on Lasix during your hospitalization with improvement in your breathing. You will be prescribed 20 mg of Lasix and instructed to take a dose if you gain more than 2 pounds in 1 day or 5 pounds in 1 week. If you have to take the Lasix it is advised that you call your physician for further instructions. -Weigh yourself every day. A sudden weight gain can mean you are retaining fluid. Weigh yourself at the same time of day and in the same kind of clothes. Ideally, weigh yourself first thing in the morning after you empty your bladder, but before you eat breakfast. -Please call your physician if your weight goes up by more than 2 pounds in 1 day or 5 pounds in 1 week. This can be a sign that you are retaining more fluid than you should be. - Your blood sugars were significantly elevated while on high doses of steroids, they improve once steroids are discontinued so you will not be discharged on any additional agents but will be important to follow-up closely with your primary care physician -Please follow-up with nephrology upon discharge. Please call their office to schedule hospital follow-up appointment upon discharge. -We discussed your vision which is chronically impaired but has worsened with glucose fluctuations, this should improve over time once glucose levels improved but would recommend following up with your commercial real estate lender in 1 to 2 days, please call their office upon discharge to schedule an appointment -Please call your primary care provider's office upon discharge to schedule a hospital follow up within 1 week. -For any concerning signs or symptoms please call 911 or proceed to the nearest emergency department Physical Exam Narrative General: Alert, oriented, no apparent distress HEENT: Atraumatic, normocephalic Eyes: Anicteric, normal conjunctiva, extraocular movements grossly intact Neck: Supple Respiratory: Improved airflow, no respiratory distress Cardiovascular: Regular rate GI: Soft, nontender, nondistended Extremities: No edema Musculoskeletal: Moving all extremities Neuro: No overt focal neurological deficits Skin: No rashes appreciated Psych: Cooperative Weight / BMI Weight Weight: 72.4 kg Body Mass Index (BMI) 24.3 ABG / Lab / Microbiology Data 01/01/24 04:15 01/01/24 04:15 Laboratory: Laboratory Results - last 24 hr 12/31/23 05:50: Magnesium 2.0 12/31/23 16:47: POC Glucose 323 H 12/31/23 21:41: POC Glucose 368 H 01/01/24 04:15: WBC 15.7 H, RBC 3.01 L, Hgb 8.4 L, Hct 26.1 L, MCV 86.7, MCH 27.9, MCHC 32.2, RDW Std Deviation 65.4 H, RDW Coeff of Dana 20.2 H, Plt Count 304, MPV 10.0, Immature Gran % (Auto) 1.500 H, Neut % (Auto) 85.9 H, Lymph % (Auto) 7.0 L, [place] % (Auto) 5.5, Eos % (Auto) 0.0, Baso % (Auto) 0.1, Absolute Neuts (auto) 13.5 H, Absolute Lymphs (auto) 1.10, Nucleated RBC % 0, Anisocytosis RARE, Sodium 139, Potassium 4.5, Chloride 112 H, Carbon Dioxide 20.0 L, Anion Gap 7, BUN 58 H, Creatinine 3.41 H, Estim Creat Clear Calc 22.29, Est GFR (MDRD) Af Amer 24 L, Est GFR (MDRD) Non-Af 20 L, BUN/Creatinine Ratio 17.0, Glucose 350 H, Calcium 8.0 L, Magnesium 2.1 01/01/24 06:13: POC Glucose 285 H 01/01/24 11:36: POC Glucose 284 H Microbiology: Microbiology 12/29/23 09:30 Sputum, Expectorated/Coughed Gram Stain - Final 12/29/23 09:30 Sputum, Expectorated/Coughed Respiratory Culture - Final Yeast, not Lizet albicans 12/27/23 09:20 Mucosa - Nose Respiratory Panel (PCR) - Final 12/27/23 09:20 Mucosa - Nose Coronavirus COVID-19 PCR - Final D/C Instructions Discharge Diet: - (-DASH diet, 3000 mg sodium restriction, 2 L fluid restriction) DC O2, CPAP, BIPAP Needs RN Home O2 Qualification: Home O2 Qualification: Is the patient on home oxygen No 01/01/24 11:25 Home O2 Qualification: AT REST 1- Pulse Ox at rest 96 01/01/24 11:25 Home O2 Qualification: WITH AMBULATION 1- Pulse Ox with ambulation 96 01/01/24 11:25 1- Oxygen Flow Rate with 0 01/01/24 11:25 ambulation Additional Home O2 Discharge instructions: No DC home with Oxygen: No Meaningful Use Info Meaningful Use Meaningful Use Diagnoses (Choose all that apply): None applicable Ischemic Stroke Statin Dosing Therapy Reference: STATIN DOSE THERAPY REFERENCE: * Patients > 75 years receive moderate or high dose statin therapy. * Patients 75 years or YOUNGER should receive HIGH intensity statin dose unless contraindicated. You will be required to document reason for non-treatment if statin daily dose does not meet guidelines. HIGH DOSE STATIN THERAPY DAILY Atorvastatin > than or = to 40 mg Rosuvastatin > than or = to 20 mg Amlodipine + Atorvastatin > than or = to 2.5/40 mg Ezetimibe + Simvastatin 10/80 mg Simvastatin 80mg Discharge Plan Admission Admit Date/Time: 12/26/23 13:19 Primary Reason for Your Visit: Dark stool in ostomy Attending Provider: Юлия Chester Primary Care Provider: Adina Bhat SEPARATOR OPERATOR [employer] Consulting Providers: Lamine Smith; Nixon Wall Instructions Patient Instructions: ED How to Quit Smoking Additional Instructions / Restrictions: DISCHARGE INSTRUCTIONS PLEASE READ *Please take this with you to your next doctors appointment* - you have had clonidine 0.05 mg added to your blood pressure regimen due to persistently elevated blood pressures, your hydralazine was also increased to 4 times daily - you have been resumed on your Plavix, please resume your aspirin in 4 days -Would recommend lab work (BMP and CBC) to check your Kidney function and blood counts in 2 to 3 days through your primary care physician's office. Please call their office upon discharge to obtain order for lab work. -You will need to follow-up with Dr. Carlson with GI in his office upon discharge. Please call his office to schedule an appointment (ph. [phone]) -You will be discharged on an additional 4 days of oral prednisone and also given prescription for albuterol inhaler -Please follow-up with Pulmonology upon discharge. if you do not already have a color repairer you can establish with our local pulmonology clinic, information below. Please call their office to schedule an appointment upon discharge. - due to retaining fluid you were on Lasix during your hospitalization with improvement in your breathing. You will be prescribed 20 mg of Lasix and instructed to take a dose if you gain more than 2 pounds in 1 day or 5 pounds in 1 week. If you have to take the Lasix it is advised that you call your physician for further instructions. -Weigh yourself every day. A sudden weight gain can mean you are retaining fluid. Weigh yourself at the same time of day and in the same kind of clothes. Ideally, weigh yourself first thing in the morning after you empty your bladder, but before you eat breakfast. -Please call your physician if your weight goes up by more than 2 pounds in 1 day or 5 pounds in 1 week. This can be a sign that you are retaining more fluid than you should be. - Your blood sugars were significantly elevated while on high doses of steroids, they improve once steroids are discontinued so you will not be discharged on any additional agents but will be important to follow-up closely with your primary care physician -Please follow-up with nephrology upon discharge. Please call their office to schedule hospital follow-up appointment upon discharge. -We discussed your vision which is chronically impaired but has worsened with glucose fluctuations, this should improve over time once glucose levels improved but would recommend following up with your commercial real estate lender in 1 to 2 days, please call their office upon discharge to schedule an appointment -Please call your primary care provider's office upon discharge to schedule a hospital follow up within 1 week. -For any concerning signs or symptoms please call 911 or proceed to the nearest emergency department Discharge Orders/Prescriptions Prescriptions: New furosemide [Lasix] 20 mg tablet 20 mg PO DAILY PRN (Reason: weight gain) Qty: 10 0RF Rx Instructions: take a dose if you gain more than 2 pounds in 1 day or 5 pounds in 1 week. clonidine HCl 0.1 mg Tablet 0.05 mg PO BID 30 Days Qty: 30 0RF prednisone 20 mg Tablet 40 mg PO DAILY 4 Days Qty: 8 0RF hydralazine 50 mg Tablet 50 mg PO 4X/DAY 30 Days Qty: 120 0RF albuterol sulfate 90 mcg/actuation HFA aerosol inhaler See Rx Instructions .ROUTE .COMPLEX PRN (Reason: shortness of breath or wheezing) Qty: 8.5 0RF Rx Instructions: 1-2 puffs every 4-6 hours as needed for shortness of breath or wheezing Continued Tremfya 100 mg/mL syringe 100 mg subcut Q4W Patient Comments: PT RICO THIS IS EVERY 8 WEEKS, DOESNT REMEMBER LAST DOSE carvedilol 25 mg tablet 25 mg PO BID Qty: 60 12RF Rx Instructions: must administer with a meal/food atorvastatin 80 mg Tablet 80 mg PO QHS Qty: 30 2RF pantoprazole 40 mg Tablet,Delayed Release (Dr/Ec) 40 mg PO BID Qty: 60 2RF nifedipine 90 mg tablet extended release 24hr 90 mg PO DAILY Qty: 90 3RF clopidogrel 75 mg tablet 75 mg PO DAILY Qty: 30 12RF Held aspirin 81 mg tablet,delayed release (DR/EC) 81 mg PO DAILY Hold Instructions: Resume on 01/06/24. Discontinued hydralazine 50 mg Tablet 50 mg PO TID Qty: 90 2RF Referrals / Follow Up: Pat Baird MD [Med Staff - Consulting] - Ed Carlson DO [Med Staff - Active Staff] - (Please call the office to schedule an appt. ) Sandy Aaron NP, SEPARATOR OPERATOR [employer] [Med Staff - Adv Practice Prof] - 03/16/24 12:45 pm Adina hBat NP, SEPARATOR OPERATOR [employer] [Primary Care Provider] - 01/03/24 5:30 pm Disposition Disposition (needs filled in before D/C Order can be placed): Home, Self Care Charges/Coding Visit Charges Inpatient E&M: 60422 Disch Hosp >30min
--- NOTE | 2024-01-01 16:10 | CASEMGMT ---
Patient has order for discharge. RN CM in to discuss needs at discharge, at bedside. Patient did not qualify for home oxygen. Patient and deny needs or help at discharge. Patient and had no further questions or concerns.
== END 2024-01-01 16:36 | disposition home or self-care (01) | DRG 813 ==
LOC: ED 13:33 → PCU 13:37
PROVIDERS: Anesthesiology; Internal Medicine; Internal Medicine Critical Care Medicine; Internal Medicine Gastroenterology; Admitting Provider Hospitalist; Emergency Provider Emergency Medicine; PCP Nurse Practitioner; Visit Provider Internal Medicine
PROC: 0DJ08ZZ Inspection of Upper Intestinal Tract, Via Natural or Artificial Opening Endoscopic (ICD-10-PCS; CPT 43235; principal; 2023-12-30 13:55)
DX: D68.32 Hemorrhagic disorder due to extrinsic circulating anticoagulants (principal); J96.01 Acute respiratory failure with hypoxia; I50.31 Acute diastolic (congestive) heart failure; N18.4 Chronic kidney disease, stage 4 (severe); I13.0 Hypertensive heart and chronic kidney disease with heart failure and stage 1 through stage 4 chronic kidney disease, or unspecified chronic kidney disease; K92.2 Gastrointestinal hemorrhage, unspecified; D62 Acute posthemorrhagic anemia; E11.22 Type 2 diabetes mellitus with diabetic chronic kidney disease; J44.9 Chronic obstructive pulmonary disease, unspecified; I65.02 Occlusion and stenosis of left vertebral artery; Z93.3 Colostomy status; I65.23 Occlusion and stenosis of bilateral carotid arteries; E78.5 Hyperlipidemia, unspecified; F17.210 Nicotine dependence, cigarettes, uncomplicated; I25.10 Atherosclerotic heart disease of native coronary artery without angina pectoris; E11.51 Type 2 diabetes mellitus with diabetic peripheral angiopathy without gangrene; E11.65 Type 2 diabetes mellitus with hyperglycemia; K44.9 Diaphragmatic hernia without obstruction or gangrene; Z79.82 Long term (current) use of aspirin; Z79.899 Other long term (current) drug therapy; Z86.73 Personal history of transient ischemic attack (TIA), and cerebral infarction without residual deficits; Z95.5 Presence of coronary angioplasty implant and graft
CPT/HCPCS: 36415; 71046; 80048; 80076; 82962; 83036; 83735; 83880; 84145; 84450; 84460; 85014; 85018; 85025; 85027; 85610; 85730; 86850; 86900; 86901; 86920; 86922; 87070; 87205; 87633; 87635; 93005; 94640; 94668; 99283; 99406; J2185; J7050; P9016; A4216; J1940; J2405; J2916; J3490

== ENCOUNTER → 2024-01-03 | Outpatient (CLI) | payer BC, MEDICARE, SELFPAY ==
[2024-01-03 22:40] LABS: Absolute Lymphocyte Count 0.51 X10^3/uL (0.83-4.51); Absolute Neutrophil Count 12.9 X10^3/uL (2.0-7.7); Basophil# 0.01 X10^3/uL; Basophil% 0.1 % (0-1); Hematocrit 28.6 % (40-54); Hemoglobin 8.9 g/dL (13.0-16.5); Lymphocyte # 0.51 X10^3/ul (0.83-4.51); Lymphocyte % 3.7 % (19-41); Mean Corp Hgb Conc 31.1 g/dL (32-36); Mean Corpuscular Hgb 27.5 pg (27.0-32.0); Mean Corpuscular Volume 88.3 fL (80-94); Mean Platelet Vol. 10.1 fl (6.2-12.0); Monocyte# 0.33 X10^3/uL; Monocyte% 2.4 % (0-10); NRBC Flagged by Analyzer 0 % (0-5); Neutrophil # 12.91 X10^3/uL (2.7-7.7); Neutrophil % 93.2 % (47-70); POSITIVE DIFFERENTIAL YES; Platelet Count 292 K/mm3 (150-450); RBC Distribution Width CV 19.5 % (11.6-14.6); RBC Distribution Width SD 62.8 fl (35.1-43.9); Red Blood Count 3.24 M/mm3 (4.6-6.2); White Blood Count 13.9 K/mm3 (4.4-11.0)
[2024-01-03 22:59] LABS: ALB/GLOB Ratio 0.7 RATIO (0.9-2.4); AST(SGOT) 7 U/L (15-37); Alanine Aminotransfer ALT/SGPT 18 U/L (16-61); Albumin, Serum 2.4 g/dL (3.2-5.0); Alkaline Phosphatase 89 U/L (45-117); Anion Gap 7 (5-15); BUN 45 mg/dL (7-18); BUN/Creat Ratio 14.6 RATIO (10-20); Chloride 109 mmol/L (98-107); Creatinine, Serum 3.08 mg/dL (0.70-1.30); EST Glomerular Filtration Rate 22 mL/min (>60); Est Glom Filt Rate - Afr Amer 27 mL/min (>60); Globulin 3.4 g/dL (2.2-4.2); Glucose 606 mg/dL (74-106); Iron 52 ug/dL (65-175); Iron Binding Capacity,Total 222 ug/dL (250-450); PERCENT IRON SATURATION 23.4 % (15.0-55.0); Potassium 4.9 mmol/L (3.5-5.1); Protein, Total 5.8 g/dL (6.4-8.2); Sodium Level 136 mmol/L (136-145)
[2024-01-03 23:42] LABS: Hemoglobin A1c 7.3 % (3.8-5.6)
[2024-01-05 08:08] LABS: Transferrin 184 mg/dL (177-329)
== END | disposition home or self-care (01) ==
PROVIDERS: PCP Nurse Practitioner; Referring Provider Nurse Practitioner; Visit Provider Nurse Practitioner
DX: K92.2 Gastrointestinal hemorrhage, unspecified (principal); E11.22 Type 2 diabetes mellitus with diabetic chronic kidney disease; N17.9 Acute kidney failure, unspecified; N18.9 Chronic kidney disease, unspecified; E61.1 Iron deficiency; D72.18 Eosinophilia in diseases classified elsewhere; I12.9 Hypertensive chronic kidney disease with stage 1 through stage 4 chronic kidney disease, or unspecified chronic kidney disease; F17.200 Nicotine dependence, unspecified, uncomplicated
CPT/HCPCS: 80053; 83036; 83540; 83550; 84466; 85025

== ENCOUNTER 2024-01-12 10:26 | Inpatient (IN) | payer BC, MEDICARE, SELFPAY ==
[2024-01-12] VITALS (22 sets, daily range): BP systolic 133–175; BP diastolic 35–95; PULSE 58–112; RESP 14–25; TEMP 35.9–36.8; O2SAT 88–98; BMI 26.8; BMI 26.1
--- NOTE | 2024-01-12 10:39 | EKG12_ITS ---
Test Reason : EDEMA Blood Pressure : */* mmHG Vent. Rate : 59 BPM Atrial Rate : 59 BPM P-R Int : 148 ms QRS Dur : 94 ms QT Int : 440 ms P-R-T Axes : 83 54 109 degrees QTcB Int : 435 ms Sinus bradycardia Left ventricular hypertrophy with repolarization abnormality ( Sokolow-White ) Cannot rule out Septal infarct , age undetermined Abnormal ECG Confirmed by Ranulfo Appiah ([id number]), videotape editor GILLIAN GONCALVES ([id number]) on 01/13/2024 11:44:19 AM Referred By: Confirmed By: Ranulfo Appiah
--- NOTE | 2024-01-12 10:40 | EX.ED.DYSGE1 ---
HPI History of Present Illness Chief Complaint: Edema Detail of Chief Complaint: Swelling of lower extremities, dyspnea, dyspnea on exertion Informant: patient Onset/Context/Timing Onset: Weeks (1 week) Context: Gradual Onset Timing: Continuous Quality: Dyspnea, dyspnea on exertion, pedal edema and orthopnea Location: Cardiovascular Current Severity: Mild Worsened by: Walking across the room Relieved by: Nothing Associated Symptoms Associated Symptoms: No constitutional symptoms, no chest discomfort Narrative Narrative: Patient is a 58-year-old male. He has history of coronary disease, iron deficiency anemia, renal failure not on hemodialysis, type 2 diabetes, hypertension, dyslipidemia and lupus who presents with swelling of his lower extremities as well as dyspnea, dyspnea on exertion and orthopnea that started 1 week ago. He denies chest tightness, pressure or heaviness. He denies chest discomfort with activity. He is a smoker of 1 pack/day. 5 years ago he smoked 2 packs/day. He has no history of VTE. He denies leg pain or discoloration. He denies fever, chills night sweats. He denies productive cough. He does have occasional wheezing. He denies GI symptoms. He denies black or maroon-colored stool. He denies bruising easily. He denies blood in his urine. When asked if he looks paler than normal he was not sure. Prior similar symptoms: No Recent Illness/Hospitalization: No PFSH FOR[facility]LY [facility] Medical History Right sided numbness Dysphagia Dyslipidemia Resistant hypertension Pressure sore of left ischium, stage 3 Difficulty walking Atherosclerosis of [place] arteries of extremities with rest pain, left leg Aftercare following surgery of the circulatory system Wound, surgical, nonhealing Abdominal pain Vitamin D deficiency Hypotension Hepatitis Vitamin B12 deficiency anemia Gout Renal failure (ARF), acute on chronic Wears glasses PVD (peripheral vascular disease) Gait instability TIA (transient ischemic attack) Syncope History of echocardiogram Cardiology follow-up encounter Nicotine dependence Nonhealing skin ulcer Peripheral arterial disease Chronic kidney disease History of diverticulitis Acute kidney injury Arthritis Kidney disease Acute kidney injury superimposed on chronic kidney disease Diverticulitis Weight gain with edema DM type 2, goal HbA1c < 7.5% Malnutrition Ulcer of perineum with fat layer exposed Ulcer of scrotum Ulcer of right groin with fat layer exposed Shingles Shingles Post-operative pain Elevated serum creatinine Hemoglobin A1c greater than 8.0 percent Hypokalemia Open wound of scrotum with complication Open wound of buttock with complication Non-healing open wound of right groin Abscess, perineum Abscess of scrotal wall Abscess of right groin Complete edentulism, class III Alcohol use Diabetes Back pain History of ulceration Shortness of breath on exertion History of pain when walking History of edema Hidradenitis suppurativa of anus Suppurative hidradenitis Gastric ulcer Ulcer of perianal area with fat layer exposed Nausea and vomiting Proteinuria due to type 2 diabetes mellitus Lupus (systemic lupus erythematosus) Weakness Edema of both legs Acute post-operative pain 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 Chronic pain Hyperlipidemia Coronary artery disease Diabetes mellitus Chronic obstructive pulmonary disease Debility Colostomy in place Complicated open wound of left thigh Open wound of left buttock with complication Abscess of buttock, left Back pain due to injury History of stress test Smoker Coronary artery disease Abscess of left thigh Wound infection Cellulitis Ankle pain Ankle pain Iron deficiency anemia Ulcer of perineum with fat layer exposed Skin ulcer of scrotum Anemia of chronic disease Acute blood loss anemia Ulcer of left groin with fat layer exposed Open wound of scrotum Acute postoperative anemia due to expected blood loss Hidradenitis suppurativa of anus Hypertension Tobacco dependence syndrome Anemia Malnutrition Cough Pneumonia involving right lung Pain in the groin Hydradenitis Diabetes mellitus type 2, uncontrolled, with complications Hypertension Hyperlipidemia associated with type 2 diabetes mellitus Diabetes type 2, uncontrolled COPD (chronic obstructive pulmonary disease) Hydradenitis Home Medications ?Medication ?Instructions ?Recorded ?Last Taken ?Type guselkumab 100 mg/mL subcutaneous 100 mg subcut Q4W ARTHRITIS 04/23/22 09/26/22 History syringe (Tremfya) carvedilol 25 mg tablet 25 mg PO BID #60 tabs 03/01/23 06/06/23 Rx nifedipine 90 mg tablet,extended 90 mg PO DAILY #90 tabs 05/08/23 12/25/23 Rx release 24 hr aspirin 81 mg tablet,delayed 81 mg PO DAILY 06/06/23 12/25/23 History release clopidogrel 75 mg tablet 75 mg PO DAILY #30 tabs 06/17/23 12/25/23 Rx atorvastatin 80 mg tablet 80 mg PO QHS #30 tabs 12/14/23 12/25/23 Rx pantoprazole 40 mg tablet,delayed 40 mg PO BID #60 tabs 12/14/23 12/25/23 Rx release albuterol sulfate 90 mcg/actuation See Rx Instructions .Route 01/01/24 Unknown Rx aerosol inhaler .COMPLEX PRN shortness of breath or wheezing #8.5 grams clonidine HCl 0.1 mg tablet 0.05 mg (1/2 x 0.1 mg) PO BID 30 01/01/24 Unknown Rx days #30 tabs furosemide 20 mg tablet (Lasix) 20 mg PO DAILY PRN weight gain #10 01/01/24 Unknown Rx tabs hydralazine 50 mg tablet 50 mg PO 4X/DAY 30 days #120 tabs 01/01/24 Unknown Rx insulin lispro 100 unit/mL 10 unit (0.1 mL) subcut TID 30 01/07/24 Unknown Rx subcutaneous pen (Humalog Kw days #9 mL (U-100) Insulin) insulin glargine 100 unit/mL (3 See Rx Instructions subcut .COMPLEX 01/12/24 Unknown History mL) subcutaneous pen (Lantus Solostar U-100 Insulin) Allergy/AdvReac Type Severity Reaction Status Date / Time Penicillins Allergy Unknown Verified 01/12/24 10:28 Sulfa (Sulfonamide Allergy Unknown Verified 01/12/24 10:28 Antibiotics) bupropion (From Wellbutrin) AdvReac Severe change in Verified 01/12/24 10:28 personality ,meanness and smoked more doxycycline AdvReac Severe Vomiting Verified 01/12/24 10:28 Family History Aunt Lung disease lung cancer Father Heart disease Hypertension Family history of high cholesterol Diabetes Mother Diabetes Daughter Epilepsy Surgical History Hx of vascular surgery History of excision of lesion History of incision and drainage History of coronary artery stent placement History of removal of cyst Hx of hernia repair History of tonsillectomy and adenoidectomy Social History household members: spouse Smoking Status: Current every day smoker tobacco type: cigarettes alcohol intake: never substance use type: does not use caffeine: Yes (7) Type: coffee additional social history: DOES NOT TAKE ASPIRIN DOES NOT TAKE IBUPROFEN ROS ROS ED Constitutional Constitutional ED: Denies chills, fever(s), subjective, sweats or weight loss Eyes Eyes: Denies blurry vision or change in vision ENT ENT ED: Denies ear pain, rhinorrhea or sore throat Cardiovascular Cardiovascular: Reports orthopnea; Denies chest pain, palpitations, paroxysmal nocturnal dyspnea or racing heartbeat Respiratory/Chest Respiratory/Chest: Reports cough, dyspnea, dyspnea on exertion and orthopnea; Denies paroxysmal nocturnal dyspnea or sputum Gastrointestinal Gastrointestinal: Denies abdominal pain, constipation, diarrhea, melena, nausea or vomiting Genitourinary Genitourinary ED: Reports other Details: Reports decreased urine output. ; Denies dysuria, hematuria or urinary frequency Musculoskeletal Musculoskeletal: Denies arthralgias or myalgias Integumentary Denies rash Neurologic Neurologic: Reports weakness; Denies headache(s) or paresthesias Hematologic/Lymphatic Hematologic/Lymphatic: Reports systems reviewed and no addt'l complaints, except as documented EXAM Physical Exam Const Vital Signs: 01/12/24 10:27 01/12/24 10:48 01/12/24 11:15 Temperature 97.0 F L Temperature Source Temporal Pulse Rate 62 105 H Respiratory Rate 16 24 H Respiratory Effort Short of Breath Respiratory Pattern Tachypnea Blood Pressure 141/35 H 143/95 H Blood Pressure Mean 70 108 Blood Pressure Source Blood Pressure Position Blood Pressure Location Pulse Ox 94 98 Oxygen Delivery Method Room Air Oxygen Flow Rate (L/min) 01/12/24 12:00 01/12/24 12:30 01/12/24 12:36 Temperature 97.8 F Temperature Source Oral Pulse Rate 105 H 62 Respiratory Rate 25 H 15 Respiratory Effort Respiratory Pattern Blood Pressure 147/94 H 133/50 H Blood Pressure Mean 108 77 Blood Pressure Source Monitor Blood Pressure Position Left Lateral Blood Pressure Location Right Arm Pulse Ox 98 90 88 Oxygen Delivery Method Room Air Room Air Oxygen Flow Rate (L/min) 01/12/24 12:36 01/12/24 12:45 01/12/24 13:45 Temperature 98.1 F 98.1 F Temperature Source Oral Oral Pulse Rate 62 62 Respiratory Rate 19 H 15 Respiratory Effort Respiratory Pattern Blood Pressure 138/55 H 160/61 H Blood Pressure Mean 82 94 Blood Pressure Source Monitor Monitor Blood Pressure Position Left Lateral Left Lateral Blood Pressure Location Right Arm Right Arm Pulse Ox 92 93 94 Oxygen Delivery Method Nasal Cannula Nasal Cannula Nasal Cannula Oxygen Flow Rate (L/min) 3 3 4 Positive well nourished and well developed Constitutional Narrative: Patient is tachypneic. He is breathing quicker than 16 times a minute. He has tobacco odor to his breath. He has tobacco staining of his facial hair. General Appearance ED: well developed and pallor; Negative for cyanotic or diaphoretic HEENT Reports moist mucous membranes HEENT Narrative: Head is atraumatic and normocephalic. Ears normal. Nares patent. Eyes PERRL and EOMs intact bilaterally General Eye ED: Yes pale conjunctiva; Negative for scleral icterus Neck no lymphadenopathy, supple and no JVD Neck Narrative: Trachea is midline. Resp normal respiratory effort and No clear to auscultation bilaterally Resp Narrative: Coarse breath sounds left greater than right with fine rales left base Cardio regular rate, regular rhythm, S1 normal heart sound, S2 normal heart sound and no murmurs GI normal to inspection, nondistended, normoactive bowel sounds, non-tender, non-distended and no masses; Negative for hepatosplenomegaly GI Narrative: Patient has pitting inferior abdomen. Patient has brown stool noted in his colostomy. Stool for occult blood was ordered. Back/Spine no CVA tenderness Extremity Negative for normal to inspection Extremity Narrative: Patient appears pale. He has stigmata of peripheral arterial disease. He has significant pitting edema of both lower extremities. There is no leg vein distention, discoloration, palpable cords or tenderness on the distribution deep venous system. Neuro oriented x3 and CN's II-XII intact bilaterally Sensorium / Orientation: alert Psych mental status grossly normal Skin no rashes or lesions noted, No no wounds and skin turgor normal General Skin Exam: pallor; Negative for jaundice MDM MDM MDM Narrative Medical decision making narrative: Differential diagnosis would be cardiac versus noncardiac. Noncardiac would be worsening of his renal failure especially since he reports decreased urine output. Would need to evaluate for cardiac ischemia as a cause of his cardiac symptoms of orthopnea, dyspnea on exertion and edema for the past week. Will obtain a troponin. There is no concern for PE. He also appears anemic which may be a cause of his dyspnea. Will obtain CBC to assess H&H as well as platelet count. If he does have acute renal failure need to evaluate for electrolytes as well. Prior records were reviewed. He does have history of coronary disease with placement of stents as well as multiple risk factors for cardiac disease. Of note he was admitted December for acute on chronic anemia presumed secondary to recurrent GI bleed. He does have a colostomy. He also was found to have hypoxia due to respiratory failure secondary to exacerbation of heart failure with preserved ejection fraction. He also has a history of COPD and this may be the cause of his shortness of breath as well. Patient had endoscopy performed on December [address] Carlson. He was noted to have a angiodysplastic lesion in the jejunum which was treated. There also was evidence of a hiatal hernia. There is no other abnormalities noted. Because of patient having heart failure, pleural effusion anasarca Lasix was ordered prior to administration of blood. 1 unit of blood was ordered to be given in the emergency department. He was typed and crossed for 2 units of blood. History & Record Review Additional record(s) reviewed:: Prior inpatient record (Documented under the [facility] as portion of the EMR), Prior ED visit and Prior labs Lab Data Attestation: I reviewed the patient's lab results. Lab results narrative: H&H was 8.9 and 20.6 on January 02. H&H today is 6.4 and 20.4. This could contribute to his dyspnea. Suspect also he has high-output heart failure in light of his acute anemia. Will type and screen patient as well as type and cross. Will administer 1 unit. Labs: Laboratory Results - last 24 hr 01/12/24 01/12/24 10:45 11:15 WBC 8.2 RBC 2.30 L Hgb 6.4 L Hct 20.4 L MCV 88.7 MCH 27.8 MCHC 31.4 L RDW Std Deviation 59.9 H RDW Coeff of [place] 18.8 H Plt Count 159 MPV 10.5 Immature Gran % (Auto) 0.400 Neut % (Auto) 78.3 H Lymph % (Auto) 12.7 L [place] % (Auto) 7.4 Eos % (Auto) 1.0 Baso % (Auto) 0.2 Absolute Neuts (auto) 6.4 Absolute Lymphs (auto) 1.04 Nucleated RBC % 0 Sodium 141 Potassium 3.9 Chloride 110 H Carbon Dioxide 20.0 L Anion Gap 11 BUN 43 H Creatinine 3.97 H Estim Creat Clear Calc 19.14 Est GFR (MDRD) Af Amer 20 L Est GFR (MDRD) Non-Af 17 L BUN/Creatinine Ratio 10.8 Glucose 155 H Calcium 7.7 L Total Bilirubin 0.30 AST 4 L ALT 13 L Alkaline Phosphatase 83 Troponin I High Sens 22 B-Natriuretic Peptide 353.5 H Total Protein 6.1 L Albumin 2.4 L Globulin 3.7 Albumin/Globulin Ratio 0.6 L Blood Type A POSITIVE Antibody Screen NEGATIVE Crossmatch See Detail Radiography Chest X-Ray - ED: 2 View and Read by ED Physician (No 1107 interpreted by me. There is an effusion on the left which is new from December 25. There is also evidence of increasing social markings which my opinion is due to a difference in penetration. There is also some mild cephalization in comparison to 25 December.) Diagnostic Testing: Clinical Impression(s) from Imaging Studies Chest X-Ray 01/12/24 10:50 IMPRESSION: Interval development of bilateral pleural effusions. Interstitial lung disease as described. Electronically Signed: Berry Ramirez MD at 11:55 EST , EKG Initial EKG: Attestation: I personally reviewed and interpreted this EKG as follows: Interpretation: Sinus Bradycardia (Rate is 59. There is evidence of left ventricular hypertrophy with repolarization changes. There is also artifact. There is decreased anterior force. Will need to compare to prior. [place] interval is under 48 ms. QS duration 94 ms. QT duration 440 ms. [place] is normal.) Management Discussion w/another healthcare provider: Hospitalist (Dr. Wall was made aware of the patient's history, physical, recent admission and results of EGD. She was able to review outpatient records as well. Apparently he has not been taking his Lasix daily.) Discharge Plan Dx/Rx/DC Orders Clinical Impression: Acute on chronic anemia, Signs and symptoms of anemia, Symptomatic anemia, Anemia requiring transfusions, Bilateral pleural effusion, Congestive heart failure, Anasarca, Chronic kidney disease (CKD) stage G4/A3, severely decreased glomerular filtration rate (GFR) between 15-29 mL/min/1.73 square meter and albuminuria creatinine ratio greater than 300 mg/g, Diabetes type 2, uncontrolled, Hypertension Disposition Disposition: Acute Care Hospital [facility]
--- NOTE | 2024-01-12 10:50 | RAD_ITS ---
EXAM: XR CHEST, 2 VIEWS CLINICAL INDICATION: Dyspnea, orthopnea, pedal edema TECHNIQUE: Frontal and lateral views of the chest. COMPARISON: XR Chest dated 12/26/2023 FINDINGS: LUNGS AND PLEURAL SPACES: Interval development of small bilateral pleural effusions greater in size on the left than right. Interstitial thickening of both lungs again noted which may represent acute or chronic inflammatory change and/or pulmonary edema. HEART: Stable normal heart size. MEDIASTINUM: No mediastinal or hilar mass. BONES/JOINTS: No acute abnormality. RAD/Chest PA and Lateral IMPRESSION: Interval development of bilateral pleural effusions. Interstitial lung disease as described. Electronically Signed: Berry Ramirez MD at 11:55 EST ,
[2024-01-12 11:03] LABS: Absolute Lymphocyte Count 1.04 X10^3/uL (0.83-4.51); Absolute Neutrophil Count 6.4 X10^3/uL (2.0-7.7); Basophil# 0.02 X10^3/uL; Basophil% 0.2 % (0-1); Eosinophil# 0.08 X10^3/uL; Hematocrit 20.4 % (40-54); Hemoglobin 6.4 g/dL (13.0-16.5); Lymphocyte # 1.04 X10^3/ul (0.83-4.51); Lymphocyte % 12.7 % (19-41); Mean Corp Hgb Conc 31.4 g/dL (32-36); Mean Corpuscular Hgb 27.8 pg (27.0-32.0); Mean Corpuscular Volume 88.7 fL (80-94); Mean Platelet Vol. 10.5 fl (6.2-12.0); Monocyte# 0.61 X10^3/uL; Monocyte% 7.4 % (0-10); NRBC Flagged by Analyzer 0 % (0-5); Neutrophil # 6.43 X10^3/uL (2.7-7.7); Neutrophil % 78.3 % (47-70); Platelet Count 159 K/mm3 (150-450); RBC Distribution Width CV 18.8 % (11.6-14.6); RBC Distribution Width SD 59.9 fl (35.1-43.9); White Blood Count 8.2 K/mm3 (4.4-11.0)
[2024-01-12 11:17] LABS: ALB/GLOB Ratio 0.6 RATIO (0.9-2.4); AST(SGOT) 4 U/L (15-37); Alanine Aminotransfer ALT/SGPT 13 U/L (16-61); Albumin, Serum 2.4 g/dL (3.2-5.0); Alkaline Phosphatase 83 U/L (45-117); Anion Gap 11 (5-15); BUN 43 mg/dL (7-18); BUN/Creat Ratio 10.8 RATIO (10-20); Calcium,Total 7.7 mg/dL (8.5-10.1); Chloride 110 mmol/L (98-107); Creatinine, Serum 3.97 mg/dL (0.70-1.30); EST Glomerular Filtration Rate 17 mL/min (>60); Est Glom Filt Rate - Afr Amer 20 mL/min (>60); Estimated Creatinine Clearance 19.14 ml/min; Globulin 3.7 g/dL (2.2-4.2); Glucose 155 mg/dL (74-106); Potassium 3.9 mmol/L (3.5-5.1); Protein, Total 6.1 g/dL (6.4-8.2); Sodium Level 141 mmol/L (136-145); Troponin-I HS 22 pg/mL (3.0-78.0)
[2024-01-12] MEDS: Furosemide 40 MG/4 ML Vial IV (11:18)
[2024-01-12 11:21] LABS: BNP,B-Type NATRIURETIC PEPTIDE 353.5 pg/mL (0-100)
--- NOTE | 2024-01-12 14:09 | PCM.HP.STD ---
HPI - General General Date of Admission: 01/12/24 Date of Service: 01/12/24 Chief Complaint: LE edema, dyspnea, worse with exertion HPI Narrative The patient is a 58 y/o M w/ PMHx: Chronic anemia/AOCD, CKD stage IV per GFR trending, HTN, HLD, Hx CVA, PAD s/p L SFA, COPD, Tobacco use, SLE, IDDM w/ HgBA1c 7.3% 01/03/24 however, likely altered by anemia of note, recently discharged 01/01/24 admitted with acute on chronic anemia secondary to presumed recurrent GI bleed w/ 12/30/23 upper endoscopy with normal esophagus, had a hernia, no gross lesions in the poor portion of the duodenum, single bleeding angiodysplastic lesion in the jejunum treated with a heater probe with an additional 5 day hold on asa/plavix with restart following, hypoxic respiratory failure secondary to heart failure exacerbation with preserved EF discharged with PRN lasix based on weight gain parameters as well as COPD exacerbation treated with burst of steroids, hyperglycemia complicated by underlying comorbidities now re-presents to the [facility] ED on 01/12/24 with history of swelling of the lower extremities with dyspnea worse upon exertion ongoing for the last week with orthopnea with no associated chest discomfort with ongoing tobacco use with been unchanged with productive cough although he does have occasional wheezing which is stable for him with no specific black or maroon-colored stools or hematemesis but given not improving prompted evaluation to be cautious. He additionally notes decreased appetite, epigastric abdominal discomfort and dark stools but cannot be precise about color secondary to chronic vision deficits. He notes having PCP evaluation 01/03/24 with noted edema/weight gain at that time but no severe respiratory complaints thus he notes the decision was continued monitoring. Weight from recent discharge 159 lb 9.835 oz, supposed 166 lb per Adina Bhat on 01/03/24 and now 01/12/24 176 lb 5.917. Workup in the ED included T97, heart rate 62, BP 141/35, respiratory rate 16, initially 94% on room air however eventually desaturated down to 80% with most recent repeat vital signs T98.1, heart rate 64, BP 140/47, respiratory rate 18, 94% on 4 L nasal cannula, CBC with WBC 8.2, hemoglobin 6.4, MCV 88.7, platelet 159 without marked shift, CMP with chloride 110, complex at 20, BUN/creatinine 43/3.97, GFR 17, glucose 155, hepatic profile with AST/LT 4/13, total protein 6.1, albumin 2.4, troponin 22, BNP 353.5, type and cross initiated for 2 units with 1 unit initiated per ED physician, stool guaiac positive, chest x-ray with interval development of bilateral pleural effusions with interstitial lung disease chronically noted, EKG with sinus bradycardia with nonspecific changes with no acute evidence of ischemia. In the ED patient administered Lasix 40 mg IV x 1 prior to initiation of 1 unit PRBC. [facility] Medical History Right sided numbness Dysphagia Dyslipidemia Resistant hypertension Pressure sore of left ischium, stage 3 Difficulty walking Atherosclerosis of [place] arteries of extremities with rest pain, left leg Aftercare following surgery of the circulatory system Wound, surgical, nonhealing Abdominal pain Vitamin D deficiency Hypotension Hepatitis Vitamin B12 deficiency anemia Gout Renal failure (ARF), acute on chronic Wears glasses PVD (peripheral vascular disease) Gait instability TIA (transient ischemic attack) Syncope History of echocardiogram Cardiology follow-up encounter Nicotine dependence Nonhealing skin ulcer Peripheral arterial disease Chronic kidney disease History of diverticulitis Acute kidney injury Arthritis Kidney disease Acute kidney injury superimposed on chronic kidney disease Diverticulitis Weight gain with edema DM type 2, goal HbA1c < 7.5% Malnutrition Ulcer of perineum with fat layer exposed Ulcer of scrotum Ulcer of right groin with fat layer exposed Shingles Shingles Post-operative pain Elevated serum creatinine Hemoglobin A1c greater than 8.0 percent Hypokalemia Open wound of scrotum with complication Open wound of buttock with complication Non-healing open wound of right groin Abscess, perineum Abscess of scrotal wall Abscess of right groin Complete edentulism, class III Alcohol use Diabetes Back pain History of ulceration Shortness of breath on exertion History of pain when walking History of edema Hidradenitis suppurativa of anus Suppurative hidradenitis Gastric ulcer Ulcer of perianal area with fat layer exposed Nausea and vomiting Proteinuria due to type 2 diabetes mellitus Lupus (systemic lupus erythematosus) Weakness Edema of both legs Acute post-operative pain 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 Chronic pain Hyperlipidemia Coronary artery disease Diabetes mellitus Chronic obstructive pulmonary disease Debility Colostomy in place Complicated open wound of left thigh Open wound of left buttock with complication Abscess of buttock, left Back pain due to injury History of stress test Smoker Coronary artery disease Abscess of left thigh Wound infection Cellulitis Ankle pain Ankle pain Iron deficiency anemia Ulcer of perineum with fat layer exposed Skin ulcer of scrotum Anemia of chronic disease Acute blood loss anemia Ulcer of left groin with fat layer exposed Open wound of scrotum Acute postoperative anemia due to expected blood loss Hidradenitis suppurativa of anus Hypertension Tobacco dependence syndrome Anemia Malnutrition Cough Pneumonia involving right lung Pain in the groin Hydradenitis Diabetes mellitus type 2, uncontrolled, with complications Hypertension Hyperlipidemia associated with type 2 diabetes mellitus Diabetes type 2, uncontrolled COPD (chronic obstructive pulmonary disease) Hydradenitis Home Medications ?Medication ?Instructions ?Recorded ?Last Taken ?Type guselkumab 100 mg/mL subcutaneous 100 mg subcut Q4W ARTHRITIS 04/23/22 09/26/22 History syringe (Tremfya) carvedilol 25 mg tablet 25 mg PO BID #60 tabs 03/01/23 06/06/23 Rx nifedipine 90 mg tablet,extended 90 mg PO DAILY #90 tabs 05/08/23 12/25/23 Rx release 24 hr aspirin 81 mg tablet,delayed 81 mg PO DAILY 06/06/23 12/25/23 History release clopidogrel 75 mg tablet 75 mg PO DAILY #30 tabs 06/17/23 12/25/23 Rx atorvastatin 80 mg tablet 80 mg PO QHS #30 tabs 12/14/23 12/25/23 Rx pantoprazole 40 mg tablet,delayed 40 mg PO BID #60 tabs 12/14/23 12/25/23 Rx release albuterol sulfate 90 mcg/actuation See Rx Instructions .Route 01/01/24 Unknown Rx aerosol inhaler .COMPLEX PRN shortness of breath or wheezing #8.5 grams clonidine HCl 0.1 mg tablet 0.05 mg (1/2 x 0.1 mg) PO BID 30 01/01/24 Unknown Rx days #30 tabs furosemide 20 mg tablet (Lasix) 20 mg PO DAILY PRN weight gain #10 01/01/24 Unknown Rx tabs hydralazine 50 mg tablet 50 mg PO 4X/DAY 30 days #120 tabs 01/01/24 Unknown Rx insulin lispro 100 unit/mL 10 unit (0.1 mL) subcut TID 30 01/07/24 Unknown Rx subcutaneous pen (Humalog KwikPen days #9 mL (U-100) Insulin) insulin glargine 100 unit/mL (3 See Rx Instructions subcut .COMPLEX 01/12/24 Unknown History mL) subcutaneous pen (Lantus Solostar U-100 Insulin) Allergy/AdvReac Type Severity Reaction Status Date / Time Penicillins Allergy Unknown Verified 01/12/24 10:28 Sulfa (Sulfonamide Allergy Unknown Verified 01/12/24 10:28 Antibiotics) bupropion (From Wellbutrin) AdvReac Severe change in Verified 01/12/24 10:28 personality ,meanness and smoked more doxycycline AdvReac Severe Vomiting Verified 01/12/24 10:28 Family History Aunt Lung disease lung cancer Father Heart disease Hypertension Family history of high cholesterol Diabetes Mother Diabetes Daughter Epilepsy Surgical History Hx of vascular surgery History of excision of lesion History of incision and drainage History of coronary artery stent placement History of removal of cyst Hx of hernia repair History of tonsillectomy and adenoidectomy Social History (Updated 01/12/24 @ 16:[address] Bhavani Wall MD) household members: spouse Smoking Status: Current every day smoker tobacco type: cigarettes Smoking packs per day: 1 Smoking cigarettes per day: 20.0 alcohol intake: never substance use type: does not use caffeine: Yes (7) Type: coffee additional social history: DOES NOT TAKE ASPIRIN DOES NOT TAKE IBUPROFEN ROS ROS Narrative Admission Review of Systems: CONSTITUTIONAL: No weight loss, fever, chills, + weakness or fatigue. HEENT: + Chronic vision deficits. Eyes: No double vision or yellow sclerae. Ears, Nose, Throat: No hearing loss, sneezing, congestion, runny nose or sore throat. SKIN: No rash or itching, lesions, wounds. CARDIOVASCULAR: + Weight gain, edema, orthopnea. No chest pain, chest pressure or chest discomfort, palpitations, syncopal events. RESPIRATORY:+ Dyspnea, worse with exertion, occasional wheezing, chronic sputum production unchanged. No hemoptysis. GASTROINTESTINAL: + anorexia, abdominal discomfort, dark stools. No nausea, vomiting, diarrhea, BRBPR. GENITOURINARY: No dysuria, frequency, urgency or retention. NEUROLOGICAL: No headache, dizziness, syncope, paralysis, ataxia, numbness or tingling in the extremities, focal weakness, change in bowel or bladder control, seizure. MUSCULOSKELETAL: + muscle, back pain, joint pain or stiffness. HEMATOLOGIC: + Chronic anemia, easy bleeding/bruising. LYMPHATICS: No enlarged nodes. No history of splenectomy. PSYCHIATRIC: No history of depression or anxiety. ENDOCRINOLOGIC: No reports of sweating, cold or heat intolerance. No polyuria or polydipsia. ALLERGIES: No history of asthma, hives, eczema or rhinitis. Vital Signs Vital Signs Vital Signs: 01/12/24 10:27 01/12/24 10:48 01/12/24 11:15 Temperature 97.0 F L Temperature Source Temporal Pulse Rate 62 105 H Respiratory Rate 16 24 H Respiratory Effort Short of Breath Respiratory Pattern Tachypnea Blood Pressure 141/35 H 143/95 H Blood Pressure Mean 70 108 Blood Pressure Source Blood Pressure Position Blood Pressure Location Pulse Ox 94 98 Oxygen Delivery Method Room Air Oxygen Flow Rate (L/min) 01/12/24 12:30 01/12/24 12:36 01/12/24 12:36 Temperature 97.8 F Temperature Source Oral Pulse Rate 62 Respiratory Rate 15 Respiratory Effort Respiratory Pattern Blood Pressure 133/50 H Blood Pressure Mean 77 Blood Pressure Source Monitor Blood Pressure Position Left Lateral Blood Pressure Location Right Arm Pulse Ox 90 88 92 Oxygen Delivery Method Room Air Room Air Nasal Cannula Oxygen Flow Rate (L/min) 3 01/12/24 12:45 01/12/24 13:45 Temperature 98.1 F 98.1 F Temperature Source Oral Oral Pulse Rate 62 62 Respiratory Rate 19 H 15 Respiratory Effort Respiratory Pattern Blood Pressure 138/55 H 160/61 H Blood Pressure Mean 82 94 Blood Pressure Source Monitor Monitor Blood Pressure Position Left Lateral Left Lateral Blood Pressure Location Right Arm Right Arm Pulse Ox 93 94 Oxygen Delivery Method Nasal Cannula Nasal Cannula Oxygen Flow Rate (L/min) 3 4 Weight Weight: 176 lb 5.917 oz Body Mass Index (BMI) 26.8 Physical Exam Narrative Physical Examination: General: Awake, alert, oriented x 3 and cooperative, laying upright in the ED bed, fatigued, ill-appearing Skin: Despite hemoglobin does not appear significantly pale at least in skin, tanned, decreased turgor, no marked icterus, no cyanosis, pale certainly in the oropharynx and lids. HEENT: AT/NC, EOMI, PERRLA, dry MM, no carotid bruits, + JVD noted. Lungs: Diminished, greater bases, mild increased respiratory rate, rales at the bases bilaterally, no marked wheezing, no rhonchi, supplemental oxygen in place. Heart: Mildly bradycardic with regular rhythm; no gallop, rub audible. Abdomen: Soft, mild epigastric discomfort with palpation, no marked distention, mildly hyperactive BS, no overt HSM appreciated. Extremities: No cyanosis, no clubbing, significant pedal to above the knee 3+ pitting edema. Neurological: Patient awake, alert, oriented as noted, cognitive function intact; pupils equally reactive to light and accommodation, cranial nerves grossly normal, moving all 4 extremities, no focal deficits, strength severely globally decreased. Psychiatric: Affect appears flat, fatigued, no acute evidence of depressive or anxiety feelings. Results Lab / Micro Data 01/12/24 10:45 01/12/24 10:45 Labs: Laboratory Results - last 24 hr 01/12/24 10:45: WBC 8.2, RBC 2.30 L, Hgb 6.4 L, Hct 20.4 L, MCV 88.7, MCH 27.8, MCHC 31.4 L, RDW Std Deviation 59.9 H, RDW Coeff of [place] 18.8 H, Plt Count 159, MPV 10.5, Immature Gran % (Auto) 0.400, Neut % (Auto) 78.3 H, Lymph % (Auto) 12.7 L, [place] % (Auto) 7.4, Eos % (Auto) 1.0, Baso % (Auto) 0.2, Absolute Neuts (auto) 6.4, Absolute Lymphs (auto) 1.04, Nucleated RBC % 0, Sodium 141, Potassium 3.9, Chloride 110 H, Carbon Dioxide 20.0 L, Anion Gap 11, BUN 43 H, Creatinine 3.97 H, Estim Creat Clear Calc 19.14, Est GFR (MDRD) Af Amer 20 L, Est GFR (MDRD) Non-Af 17 L, BUN/Creatinine Ratio 10.8, Glucose 155 H, Calcium 7.7 L, Total Bilirubin 0.30, AST 4 L, ALT 13 L, Alkaline Phosphatase 83, Troponin I High Sens 22, B-Natriuretic Peptide 353.5 H, Total Protein 6.1 L, Albumin 2.4 L, Globulin 3.7, Albumin/Globulin Ratio 0.6 L 01/12/24 11:15: Blood Type A POSITIVE, Antibody Screen NEGATIVE, Crossmatch See Detail Micro: Microbiology 01/12/24 13:40 Stool Stool Occult Blood (RODRIGUE) - Final Occult Blood Positive Imaging Radiology Impression Chest X-Ray 01/12/24 10:50 IMPRESSION: Interval development of bilateral pleural effusions. Interstitial lung disease as described. Electronically Signed: Berry Ramirez MD at 11:55 EST , Assessment & Plan Assessment/Plan (1) Congestive heart failure: PLAN: Plan The patient is a 58 y/o M w/ PMHx: Chronic anemia/AOCD, CKD stage IV per GFR trending, HTN, HLD, Hx CVA, PAD s/p L SFA, COPD, Tobacco use, SLE, IDDM, recently d/c 01/01/24 w/ GI bleed, HF Exac, COPD Exac who now re-presents to the [facility] ED on 01/12/24 with history of swelling of the lower extremities with dyspnea worse upon exertion ongoing for the last week with orthopnea with no associated chest discomfort with ongoing tobacco use with been unchanged with productive cough although he does have occasional wheezing which is stable for him with onset of dark stools and epigastric and bilateral upper quadrant generalized abdominal discomfort with poor oral intake prompting evaluation to be cautious. He as noted states his stools have been dark but cannot be precise about color secondary to chronic vision deficits. #1. Acute Hypoxia, Multifactorial, secondary to Recurrent Acute on Chronic Anemia secondary to presumed ABLA secondary to Acute GI bleed, suspected likely recurrent upper exacerbated by chronic antiplt therapies in addition to Acute on Chronic HFpEF: Will admit to PCU, will obtain serial H&H assessments, continue plan 1 unit PRBC administration with planned Lasix drip start and following additional unit to be administered, will maintain on Protonix continuous drip, will request GI consultation, allow clears until midnight with n.p.o. status following with plan for likely upper endoscopy in AM, will continue to obtain cardiac enzyme series, EKG as needed, monitor I/Os, continue medical therapy except holding aspirin and Plavix given GI bleed concurrently unfortunately, will obtain TSH and magnesium level as well as TSH. 12/10/23 ECHO w/ normal LV size, moderate concentric LVH, LVEF 60% thus will not repeat. Unfortunately patient will need to be very aggressively educated on when he needs to take Lasix at discharge as unfortunately despite the weight gain and education noted on discharge information he did not appropriately take Lasix despite significant weight gain of over 20 pounds. If respiratory status worsens will start BIPAP to assist with overload given PRBC administration in the ED. #2. Hx CVA with recent presentation with dysphagia with concurrently noted carotid disease, occlusion right posterior cerebral artery and possible occlusion distal left vertebral artery with collaterals w/ No acute MRI evidence CVA/Consistent with TIA: Recent 11/2023 admission with history of dysphagia with suspected stroke, 12/11/2023 MRI of the brain with no evidence of any acute or subacute infarct, old ischemic infarct with cystic encephalomalacia and atrophy along the right lingula gyrus and to a lesser degree the right 4 times daily adjacent to the right calcarine fissure, few chronic white matter ischemic changes in both cerebral hemispheres, as noted temporally holding aspirin and Plavix given GI bleed, continue statin, continue hypertensive regimen as noted, continue diabetic regimen with adjustments as noted. #3. PAD: Status post left SFA 05/2023 with PCI, holding aspirin and Plavix unfortunately given situation but patient is certainly high risk thus once able would immediately resume at least aspirin and unfortunately may not be able to be on dual antiplatelet therapy, continue high intensity statin, continue hypertensive regimen as noted, diabetic regimen with adjustments as noted. #4. Diabetes mellitus type II: Clarifying but appears recently to been initiated on insulin therapy, given blood sugar upon presentation not significantly elevated and not currently on steroid regimen will assure appropriate insulin long-acting dosing prior to even considering starting and if necessary may consider starting by doing half dose, will allow clears until midnight as noted, will maintain on accu checks w/ ISS. #5. Chronic Kidney Disease Stage IV per GFR trending: Admission BUN/Cr 43/3.97, GFR 17, baseline renal function primarily 3 to maximum 3.6, most recently prior to this 01/03/2024 creatinine 3.08, rising, suspect likely in the setting of #1 as noted repeat CMP in AM. If worsens despite the interventions as noted certainly low threshold to consider involving nephrology. #6. Chronic COPD: Will maintain on oxygen with wean as tolerated to room air, complicated by #1, will maintain on ATC budesonide therapy, PRN albuterol, HOB, IS parameters. #7. Hypertension: Continue home regimen including Coreg, clonidine, nifedipine as well as noted IV Lasix drip with priorly on diuresis, PRN hydralazine. #8. Hyperlipidemia: Continue home statin regimen. AM FLP. #9. SLE: Patient is on Tremfya outpatient noted every 4 weeks, encourage continued outpatient follow-up with rheumatology as previously arranged. #10. Tobacco Abuse: Encouraged cessation, inpatient consultation per RT, NR if desired. #11. DVT prophylaxis: SCDs. #12. CODE status: Patient HCPOA is his who is present and living will is in place they note. Discussed CODE status at length including difference between FULL code, DNR-CCA and DNR-CC status. Following discussions about the differences in these status, requested Full Code status. Advanced Care Planning Face to Face Time: 16 minutes. Charges/Coding Visit Charges Inpatient E&M: 72398 Init Hosp L3 Procedures Hospitalists Procedures: 72304 Advncd Care Plan 30 Min
[2024-01-12 15:37] LABS: Magnesium 1.8 mg/dL (1.6-2.6); Phosphorus 5.4 mg/dL (2.5-4.9)
[2024-01-12] MEDS: Furosemide 500 MG in Empty Viaflex 50 mL 1 EACH CONT INF (16:23)
[2024-01-12] MEDS: Pantoprazole Sodium 80 MG in 0.9% Normal Saline (100mL Bag) 80 ML 10 MG CONT INF (16:24)
--- NOTE | 2024-01-12 16:26 | PCM.HOSP.N ---
Hospitalist Note Patient with increased oxygen requirements. Suspect unfortunately the PRBC administration in the ED contributing despite IV lasix x 1. Will place on BIPAP.
[2024-01-12 16:49] LABS: Hematocrit 25.2 % (40-54); Hemoglobin 8.2 g/dL (13.0-16.5)
[2024-01-12 17:11] LABS: Troponin-I HS 23 pg/mL (3.0-78.0)
[2024-01-12 17:16] LABS: Bedside Glucose 135 mg/dL (74-106)
[2024-01-12 19:21] LABS: Troponin-I HS 22 pg/mL (3.0-78.0)
[2024-01-12] MEDS: Budesonide Respules 0.5 MG/2 ML AMPUL.NEB. INHALATION (19:41)
[2024-01-12] MEDS: Carvedilol 25 MG Tablet PO (20:56)
[2024-01-12] MEDS: cloNIDine HCl 0.1 MG Tablet 0.05 MG PO (20:56)
[2024-01-12] MEDS: Atorvastatin Calcium 80 MG Tablet PO (20:56)
[2024-01-12 23:04] LABS: Troponin-I HS 20 pg/mL (3.0-78.0)
[2024-01-13] VITALS (19 sets, daily range): BP systolic 152–180; BP diastolic 47–66; PULSE 59–68; RESP 14–20; TEMP 36.2–36.7; O2SAT 85–98; BMI 25.9
[2024-01-13 00:21] LABS: Bedside Glucose 137 mg/dL (74-106)
[2024-01-13] MEDS: Pantoprazole Sodium 80 MG in 0.9% Normal Saline (100mL Bag) 80 ML 10 MG CONT INF ×3 (01:01→21:50)
[2024-01-13 01:05] LABS: Hematocrit 24.9 % (40-54); Hemoglobin 7.9 g/dL (13.0-16.5)
[2024-01-13] MEDS: Albuterol 2.5 MG/3 ML VIAL.NEB. INHALATION (05:08)
--- NOTE | 2024-01-13 05:14 | CPS ---
Patient oxygen needs increased to 12L, Patient placed back on bipap by RN. Patient also given PRN breathing tx.
[2024-01-13 06:13] LABS: Bedside Glucose 109 mg/dL (74-106)
[2024-01-13 06:42] LABS: Absolute Lymphocyte Count 0.99 X10^3/uL (0.83-4.51); Absolute Neutrophil Count 8.5 X10^3/uL (2.0-7.7); Basophil# 0.03 X10^3/uL; Basophil% 0.3 % (0-1); Eosinophil# 0.08 X10^3/uL; Eosinophils% 0.8 % (0-5); Hemoglobin 8.1 g/dL (13.0-16.5); Lymphocyte # 0.99 X10^3/ul (0.83-4.51); Lymphocyte % 9.7 % (19-41); Mean Corp Hgb Conc 32.4 g/dL (32-36); Mean Corpuscular Hgb 28.5 pg (27.0-32.0); Mean Platelet Vol. 10.3 fl (6.2-12.0); Monocyte# 0.55 X10^3/uL; Monocyte% 5.4 % (0-10); NRBC Flagged by Analyzer 0 % (0-5); Neutrophil # 8.48 X10^3/uL (2.7-7.7); Neutrophil % 83.1 % (47-70); Platelet Count 171 K/mm3 (150-450); RBC Distribution Width CV 17.4 % (11.6-14.6); RBC Distribution Width SD 53.9 fl (35.1-43.9); Red Blood Count 2.84 M/mm3 (4.6-6.2); White Blood Count 10.2 K/mm3 (4.4-11.0)
[2024-01-13 07:12] LABS: ALB/GLOB Ratio 0.6 RATIO (0.9-2.4); AST(SGOT) 5 U/L (15-37); Alanine Aminotransfer ALT/SGPT 11 U/L (16-61); Albumin, Serum 2.2 g/dL (3.2-5.0); Alkaline Phosphatase 90 U/L (45-117); Anion Gap 7 (5-15); BUN 46 mg/dL (7-18); BUN/Creat Ratio 11.9 RATIO (10-20); Chloride 113 mmol/L (98-107); Cholesterol 148 mg/dL (200); Creatinine, Serum 3.86 mg/dL (0.70-1.30); EST Glomerular Filtration Rate 17 mL/min (>60); Est Glom Filt Rate - Afr Amer 21 mL/min (>60); Estimated Creatinine Clearance 19.69 ml/min; Globulin 3.7 g/dL (2.2-4.2); Glucose 114 mg/dL (74-106); High Density Lipoprotein 39 mg/dL; Potassium 3.9 mmol/L (3.5-5.1); Protein, Total 5.9 g/dL (6.4-8.2); Sodium Level 140 mmol/L (136-145); Triglycerides 113 mg/dL; Very Low Density Lipoprotein 23 mg/dL (5-40)
[2024-01-13] MEDS: Budesonide Respules 0.5 MG/2 ML AMPUL.NEB. INHALATION (07:18)
[2024-01-13] MEDS: cloNIDine HCl 0.1 MG Tablet 0.05 MG PO ×2 (08:23→22:27)
[2024-01-13] MEDS: Carvedilol 25 MG Tablet PO ×2 (08:24→22:28)
[2024-01-13] MEDS: Furosemide 500 MG in Empty Viaflex 50 mL 1 EACH CONT INF (09:29)
[2024-01-13] MEDS: NIFEdipine 90 MG Tablet PO (09:29)
[2024-01-13 12:17] LABS: Bedside Glucose 109 mg/dL (74-106)
[2024-01-13] MEDS: Electrolyte Solution/Peg's 4000 ML PO (15:17)
--- NOTE | 2024-01-13 16:59 | PN.HOSP_ITS ---
Reason for Visit Reason for Visit: Diagnoses Heart failure, unspecified (01/12/24) Subjective Subjective Patient was seen and examined today, his hemoglobin this morning was 8.1, I talked briefly with gastroenterology about his care, gastroenterology recommended a colonoscopy be performed on the patient, I went over this with the patient and he has no objection to having this procedure done. Patient is currently on 6 L of oxygen via nasal cannula. He remains on a Lasix drip at this time Objective Data Objective Data Vital Signs: Vital Signs Temp Pulse Resp BP Pulse Ox O2 Del Method O2 Flow Rate 97.5 F L 68 18 161/56 H 96 Nasal Cannula 6 01/13/24 13:40 01/13/24 13:40 01/13/24 13:40 01/13/24 13:40 01/13/24 13:40 01/13/24 13:40 01/13/24 13:40 FiO2 40 01/13/24 07:18 Oxygen Flow Rate (L/min) 6 Oxygen Delivery Method Nasal Cannula Weight: 77.5 kg Body Mass Index (BMI) 25.9 Intake & Output: Intake and Output for Last 24 Hours 01/11/24 01/12/24 01/13/24 23:59 23:59 23:59 Intake Total 1002.38 / 1482.38 690.43 / 690.43 Output Total 900 / 2050 4625 / 4625 Balance 102.38 / -567.62 -3934.57 / -3934.57 Lab / Micro Data 01/13/24 05:59 01/13/24 05:59 Labs: Laboratory Results - last 24 hr 01/12/24 11:15: Blood Type A POSITIVE, Antibody Screen NEGATIVE, Crossmatch See Detail 01/12/24 16:25: Troponin I High Sens 23 01/12/24 16:54: POC Glucose 135 H 01/12/24 18:50: Troponin I High Sens 22 01/12/24 22:35: Troponin I High Sens 20 01/13/24 00:00: POC Glucose 137 H 01/13/24 00:55: Hgb 7.9 L, Hct 24.9 L 01/13/24 05:39: POC Glucose 109 H 01/13/24 05:59: WBC 10.2, RBC 2.84 L, Hgb 8.1 L, Hct 25.0 L, MCV 88.0, MCH 28.5, MCHC 32.4, RDW Std Deviation 53.9 H, RDW Coeff of Dana 17.4 H, Plt Count 171, MPV 10.3, Immature Gran % (Auto) 0.700, Neut % (Auto) 83.1 H, Lymph % (Auto) 9.7 L, Braxton % (Auto) 5.4, Eos % (Auto) 0.8, Baso % (Auto) 0.3, Absolute Neuts (auto) 8.5 H, Absolute Lymphs (auto) 0.99, Nucleated RBC % 0, Sodium 140, Potassium 3.9, Chloride 113 H, Carbon Dioxide 21.0, Anion Gap 7, BUN 46 H, Creatinine 3.86 H, Estim Creat Clear Calc 19.69, Est GFR (MDRD) Af Amer 21 L, Est GFR (MDRD) Non-Af 17 L, BUN/Creatinine Ratio 11.9, Glucose 114 H, Calcium 8.0 L, Total Bilirubin 0.70, AST 5 L, ALT 11 L, Alkaline Phosphatase 90, Total Protein 5.9 L, Albumin 2.2 L, Globulin 3.7, Albumin/Globulin Ratio 0.6 L, Triglycerides 113, Cholesterol 148, LDL Cholesterol 86, VLDL Cholesterol 23, HDL Cholesterol 39 L, TSH 1.450 01/13/24 11:43: POC Glucose 109 H Micro: Microbiology 01/12/24 13:40 Stool Stool Occult Blood (RODRIGUE) - Final Occult Blood Positive Physical Exam Const alert, oriented x3 and no apparent distress Constitutional Narrative: Patient appears older than the stated age General Appearance: cooperative, well kempt and well developed Orientation / Consciousness: awake, oriented to person, oriented to place and oriented to time HEENT normocephalic, head/scalp atraumatic and moist oral mucous membranes Eyes PERRL, EOMs intact bilaterally and conjunctivae normal Neck supple, no JVD, thyroid normal and no carotid bruits General: trachea midline Resp normal respiratory effort, no retractions, no use of accessory muscles and clear to auscultation bilaterally Auscultation: Negative for rales, rhonchi or wheezes Cardio regular rate, regular rhythm, S1 normal heart sound, S2 normal heart sound, no murmurs, no rub and no gallops GI normal to inspection, nondistended, normoactive bowel sounds, soft to palpation, non-tender and non-distended Skin no rashes or lesions noted General Skin Exam: no breakdown Neuro oriented x3, CN's II-XII intact bilaterally, no focal motor deficits and no sensory deficits noted Sensorium / Orientation: awake and alert Speech: speech normal Psych affect normal Assessment & Plan Assessment/Plan (1) Congestive heart failure: PLAN: Plan 1. Acute hypoxic respiratory failure secondary to acute on chronic congestive heart failure with preserved ejection fraction-pulse ox will be monitored, patient is currently on 6 L of oxygen via nasal cannula, oxygen will be weaned if possible #2 acute on chronic diastolic congestive heart failure-patient remains on Lasix drip at this time, BMP will be rechecked tomorrow #3 acute on chronic anemia secondary to suspected gastrointestinal bleeding- patient will undergo colonoscopy tomorrow, he remains on a PPI drip at this time #4 chronic kidney disease stage IV-complicates care, management, recovery, and prognosis #5 type 2 diabetes-patient will remain on Accu-Cheks and sliding scale insulin #6 essential hypertension-patient will remain on his current medications for blood pressure and they will be adjusted as needed #7 peripheral vascular disease-patient remains on aspirin and Plavix #8 chronic obstructive pulmonary disease-patient is currently on budesonide aerosols and albuterol aerosols as needed. Total clinical time spent by myself addressing the patient's medical issues, reviewing all of his data, and collaborating with the patient's care team: 35 minutes Charges/Coding Visit Charges Inpatient E&M: 48314 Subs Hosp L2
[2024-01-13 17:46] LABS: Bedside Glucose 169 mg/dL (74-106)
[2024-01-13] MEDS: Atorvastatin Calcium 80 MG Tablet PO (22:28)
[2024-01-14] VITALS (12 sets, daily range): BP systolic 138–191; BP diastolic 46–68; PULSE 57–79; RESP 16–19; TEMP 36.3–37.3; O2SAT 93–98; BMI 25.9; BMI 24.4
[2024-01-14 00:41] LABS: Bedside Glucose 107 mg/dL (74-106)
[2024-01-14 05:40] LABS: Absolute Lymphocyte Count 1.51 X10^3/uL (0.83-4.51); Absolute Neutrophil Count 5.4 X10^3/uL (2.0-7.7); Basophil# 0.04 X10^3/uL; Basophil% 0.5 % (0-1); Eosinophil# 0.09 X10^3/uL; Eosinophils% 1.2 % (0-5); Hematocrit 26.3 % (40-54); Hemoglobin 8.6 g/dL (13.0-16.5); Lymphocyte # 1.51 X10^3/ul (0.83-4.51); Lymphocyte % 19.7 % (19-41); Mean Corp Hgb Conc 32.7 g/dL (32-36); Mean Corpuscular Hgb 28.4 pg (27.0-32.0); Mean Corpuscular Volume 86.8 fL (80-94); Mean Platelet Vol. 9.9 fl (6.2-12.0); Monocyte# 0.57 X10^3/uL; Monocyte% 7.5 % (0-10); NRBC Flagged by Analyzer 0 % (0-5); Neutrophil # 5.41 X10^3/uL (2.7-7.7); Neutrophil % 70.7 % (47-70); Platelet Count 186 K/mm3 (150-450); RBC Distribution Width CV 16.9 % (11.6-14.6); RBC Distribution Width SD 51.5 fl (35.1-43.9); Red Blood Count 3.03 M/mm3 (4.6-6.2); White Blood Count 7.7 K/mm3 (4.4-11.0)
[2024-01-14 06:00] LABS: Anion Gap 7 (5-15); BUN 40 mg/dL (7-18); BUN/Creat Ratio 10.8 RATIO (10-20); Calcium,Total 8.5 mg/dL (8.5-10.1); Chloride 107 mmol/L (98-107); Creatinine, Serum 3.69 mg/dL (0.70-1.30); EST Glomerular Filtration Rate 18 mL/min (>60); Est Glom Filt Rate - Afr Amer 22 mL/min (>60); Glucose 92 mg/dL (74-106); Sodium Level 139 mmol/L (136-145)
[2024-01-14] MEDS: cloNIDine HCl 0.1 MG Tablet 0.05 MG PO (06:01)
[2024-01-14] MEDS: Carvedilol 25 MG Tablet PO (06:01)
[2024-01-14 06:43] LABS: International Normalized Ratio 1.2; Prothrombin Time (Protime)PT. 14.7 SECONDS (11.7-14.9)
[2024-01-14 06:44] LABS: Partial Thromboplast Time 45.2 Seconds (24.1-36.2)
[2024-01-14] MEDS: Furosemide 500 MG in Empty Viaflex 50 mL 1 EACH CONT INF (07:48)
[2024-01-14] MEDS: Pantoprazole Sodium 80 MG in 0.9% Normal Saline (100mL Bag) 80 ML 10 MG CONT INF ×2 (07:48→17:14)
[2024-01-14] MEDS: NIFEdipine 90 MG Tablet PO (07:52)
[2024-01-14 09:15] LABS: Hemoglobin A1c 6.7 % (3.8-5.6)
[2024-01-14] MEDS: Furosemide 40 MG/4 ML Vial IV ×2 (10:25→17:14)
[2024-01-14] MEDS: 0.9% Saline Lock 10 ML Syringe IV (10:25)
[2024-01-14 12:18] LABS: Bedside Glucose 97 mg/dL (74-106)
[2024-01-14 12:18] LABS: Bedside Glucose 84 mg/dL (74-106)
--- NOTE | 2024-01-14 15:51 | CASEMGMT ---
SOLANGE NATARAJAN chart review: Patient was admitted 12/25-01/01/24 for recurrent GIB wtih acute on chronic anemia. See RN CM assessment from 12/13/23. Patient was discharged to home with family support and follow-up plans in place. Patient did not qualify for home oxygen. Patient returned to [facility] ED on 01/11/23 for increased swelling to lower extremities and SOB. Patient also had a Hgb of 6.4. Patient was admitted for heart failure with preserved EF and ABLA recurrent GI bleed. SOLANGE CM in to discuss discharge planning and readmission with patient, at bedside. states that patient was taking medications as prescribed as well as PRN Lasix. states patient attended PCP appt on 01/03/24 and had been speaking daily with PCP office. states that patient was having increased weakness as well. RN CM discuss possible HHC at discharge, agreeable to think about it. Will monitor for home oxygen at discharge. Patient and had no further questions or concerns. CM will continue to follow this patient and plan for a safe discharge.
[2024-01-14 17:42] LABS: Bedside Glucose 83 mg/dL (74-106)
--- NOTE | 2024-01-14 18:26 | PCM.PN.HOSP ---
Reason for Visit Reason for Visit: Diagnoses Heart failure, unspecified (01/12/24) Subjective Subjective Patient was seen and examined today, his hemoglobin appears to be stable. Patient is going to be undergoing an EGD and colonoscopy today. Patient is currently on room air, I have converted his Lasix to IV Lasix every 12 hours. Objective Data Objective Data Vital Signs: Vital Signs Temp Pulse Resp BP Pulse Ox O2 Del Method O2 Flow Rate 97.9 F 58 L 18 145/51 H 95 Room Air 6.5 01/14/24 14:24 01/14/24 14:24 01/14/24 14:24 01/14/24 14:24 01/14/24 14:24 01/14/24 14:27 01/14/24 12:22 FiO2 40 01/13/24 07:18 Oxygen Flow Rate (L/min) 6.5 Oxygen Delivery Method Room Air Weight: 72.9 kg Body Mass Index (BMI) 24.4 Intake & Output: Intake and Output for Last 24 Hours 01/12/24 01/13/24 01/14/24 23:59 23:59 23:59 Intake Total 1002.38 / 1482.38 1770.43 / 1770.43 313.86 / 313.86 Output Total 900 / 2050 9800 / 9800 5430 / 5430 Balance 102.38 / -567.62 -8029.57 / -8029.57 -5116.14 / -5116.14 Lab / Micro Data 01/14/24 05:27 01/14/24 05:27 Labs: Laboratory Results - last 24 hr 01/14/24 00:05: POC Glucose 107 H 01/14/24 05:27: WBC 7.7, RBC 3.03 L, Hgb 8.6 L, Hct 26.3 L, MCV 86.8, MCH 28.4, MCHC 32.7, RDW Std Deviation 51.5 H, RDW Coeff of Dana 16.9 H, Plt Count 186, MPV 9.9, Immature Gran % (Auto) 0.400, Neut % (Auto) 70.7 H, Lymph % (Auto) 19.7, Bullitt % (Auto) 7.5, Eos % (Auto) 1.2, Baso % (Auto) 0.5, Absolute Neuts (auto) 5.4, Absolute Lymphs (auto) 1.51, Nucleated RBC % 0, PT 14.7, INR 1.2, APTT 45.2 H, Sodium 139, Potassium 4.0, Chloride 107, Carbon Dioxide 25.0, Anion Gap 7, BUN 40 H, Creatinine 3.69 H, Estim Creat Clear Calc 20.60, Est GFR (MDRD) Af Amer 22 L, Est GFR (MDRD) Non-Af 18 L, BUN/Creatinine Ratio 10.8, Glucose 92, Hemoglobin A1c 6.7 H, Calcium 8.5 01/14/24 06:00: POC Glucose 84 01/14/24 11:46: POC Glucose 97 01/14/24 17:20: POC Glucose 83 Micro: Microbiology 01/12/24 13:40 Stool Stool Occult Blood (RODRIGUE) - Final Occult Blood Positive Physical Exam Narrative alert, oriented x3 and no apparent distress Constitutional Narrative: Patient appears older than the stated age General Appearance: cooperative, well kempt and well developed Orientation / Consciousness: awake, oriented to person, oriented to place and oriented to time HEENT normocephalic, head/scalp atraumatic and moist oral mucous membranes Eyes PERRL, EOMs intact bilaterally and conjunctivae normal Neck supple, no JVD, thyroid normal and no carotid bruits General: trachea midline Resp normal respiratory effort, no retractions, no use of accessory muscles and clear to auscultation bilaterally Auscultation: Negative for rales, rhonchi or wheezes Cardio regular rate, regular rhythm, S1 normal heart sound, S2 normal heart sound, no murmurs, no rub and no gallops GI normal to inspection, nondistended, normoactive bowel sounds, soft to palpation, non-tender and non-distended Skin no rashes or lesions noted General Skin Exam: no breakdown Neuro oriented x3, CN's II-XII intact bilaterally, no focal motor deficits and no sensory deficits noted Sensorium / Orientation: awake and alert Speech: speech normal Psych affect normal Assessment & Plan Assessment/Plan (1) Congestive heart failure: PLAN: Plan 1. Acute hypoxic respiratory failure secondary to acute on chronic congestive heart failure with preserved ejection fraction-pulse ox will be monitored, patient is currently on room air #2 acute on chronic diastolic congestive heart failure-patient remains on IV Lasix every 12 hours #3 acute on chronic anemia secondary to suspected gastrointestinal bleeding-patient will undergo colonoscopy tomorrow, he remains on a PPI drip at this time #4 chronic kidney disease stage IV-complicates care, management, recovery, and prognosis #5 type 2 diabetes-patient will remain on Accu-Cheks and sliding scale insulin #6 essential hypertension-patient will remain on his current medications for blood pressure and they will be adjusted as needed #7 peripheral vascular disease-patient remains on aspirin and Plavix #8 chronic obstructive pulmonary disease-patient is currently on budesonide aerosols and albuterol aerosols as needed. Total clinical time spent by myself addressing the patient's medical issues, reviewing all of his data, and collaborating with the patient's care team: 35 minutes Charges/Coding Visit Charges Inpatient E&M: 12966 Subs Hosp L2
--- NOTE | 2024-01-14 20:12 | PRE.ANES_ITS ---
ASA Classification* ASA Classification ASA Classification: 3 Assessment & Plan Anesthesia* Anesthesia Assessment Anesthesia Assessment: Discussed sedation and/or anesthesia options, risks, benefits, and alternatives with patient/parents/legal guardian/POA. Questions invited. The patient/parents/legal guardian/POA seems to understand and agrees to proceed with anesthesia plan. Reviewed the physical assessment, medical history, allergy history and patient home medications list prior to surgery/procedure/anesthetic and documented any changes. Performed airway and anesthesia risk assessments. Anesthesia Type Anesthesia Type: MAC Anesthesia Focused Assessment* Temperature: 97.9 F Pulse Rate: 58 Blood Pressure: 145/51 Respiratory Rate: 18 Pulse Ox: 95 Fraction of Inspired Oxygen (FIO2): 40 Airway Assessment Mouth opens: >3 cm Mallampati Score: II Focused Labs Anesthesia Preop lab: CBC WBC 7.7 K/mm3 (4.4-11.0) 01/14/24 05:27 RBC 3.03 M/mm3 (4.6-6.2) L 01/14/24 05:27 Hgb 8.6 g/dL (13.0-16.5) L 01/14/24 05:27 Hct 26.3 % (40-54) L 01/14/24 05:27 Plt Count 186 K/mm3 (150-450) 01/14/24 05:27 CHEMISTRY Potassium 4.0 mmol/L (3.5-5.1) 01/14/24 05:27 Sodium 139 mmol/L (136-145) 01/14/24 05:27 Magnesium 1.8 mg/dL (1.6-2.6) 01/12/24 10:45 Phosphorus 5.4 mg/dL (2.5-4.9) H 01/12/24 10:45 BUN 40 mg/dL (7-18) H 01/14/24 05:27 Creatinine 3.69 mg/dL (0.70-1.30) H 01/14/24 05:27 Glucose 92 mg/dL (74-106) 01/14/24 05:27 POC Glucose 83 mg/dL (74-106) 01/14/24 17:20 TSH 1.450 uIU/mL (0.358-3.740) 01/13/24 05:59 COAG PT 14.7 SECONDS (11.7-14.9) 01/14/24 05:27 Pre-Assessment Diagnosis/Proposed Procedure Planned Operative Procedure(s): EGD, Colonoscopy Anesthesia History 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 When Was Last Pacemaker Check QUESTION #4 FULL TEXT: You/Your Family Experience fever (hyperthermia) with Anesthesia Last Oral Intake Last Oral intake: Last Oral Intake NPO since 00:00 01/14/24 18:12 Meds taken in AM with sips of Yes 01/14/24 18:12 water? Meds patient instructed to see MAR 01/14/24 18:12 take am of surgery PONV PONV - motion picture actor: PONV - motion picture actor Female HX of Motion Sickness HX of N/V After Surgery Non-Smoker Duration of Surgery greater than 60 minutes Number of Risk Factors PONV Score Height & Weight Height & Weight: Anesthesia: Height & Weight Height 5 ft 8 in 01/14/24 18:12 Weight: 72.9 kg 01/14/24 18:12 Body Mass Index (BMI) 24.4 01/14/24 18:12 Respiratory Assessment Respiratory Assessment - motion picture actor: Respiratory Tract Infection Hx - motion picture actor Hx Respiratory Tract Infection No 01/14/24 00:06 STOP Sleep Apnea STOP Sleep Apnea - motion picture actor: STOP Sleep Apnea - motion picture actor Hx Hypertension Yes 01/13/24 11:34 Hx Sleep Apnea No 01/12/24 15:19 CPAP No 01/12/24 15:19 BIPAP No 01/12/24 15:19 Do you snore loudly (louder No 01/12/24 15:19 than talking or can be heard Do you often feel tired/ No 01/12/24 15:19 fatigued/ sleepy during daytime? Has anyone observed you stop No 01/12/24 15:19 breathing during sleep? STOP Results Negative 01/12/24 15:19 QUESTION #5 FULL TEXT : Do you snore loudly (louder than talking or can be heard through closed doors)? 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 Specify any problems Hx of Preganancy in last 3 N/A 01/12/24 15:19 Months Nurse Filling Out Transfusion MANNY 01/12/24 15:19 & Questions: Date: 01/12/24 01/12/24 15:19 Time: 15:27 01/12/24 15:19 Patient unable to answer at this time (ie. confused, unrespo /Reproduction History /Reproductive History - motion picture actor: /Reproductive Hx- motion picture actor Hx Now No 01/14/24 00:06 Gestational Age (in weeks): EDC: Hx Hx Para Hx Section SAB No 01/14/24 00:06 Active Medications Active Medications: Current Medications Generic Name Dose Route Start Last Admin Trade Name Freq PRN Reason Stop Dose Admin Acetaminophen 650 mg 01/12/24 15:19 Acetaminophen 325 Mg Tablet PO Q4H PRN PRN Fever, pain 1-1010 Albuterol Sulfate 2.5 mg 01/12/24 15:19 01/13/24 05:08 Albuterol 2.5 Mg/3 Ml Vial.Neb. INHALATION 2.5 mg Q2H PRN PRN Administration Dyspnea, wheezing Atorvastatin Calcium 80 mg 01/12/24 22:00 01/13/24 22:28 Atorvastatin Calcium 80 Mg Tablet PO 80 mg QHS MAE Administration Budesonide 0.5 mg 01/12/24 15:19 01/13/24 07:18 Budesonide Respules 0.5 Mg/2 Ml Ampul.Neb. INHALATION 0.5 mg BID.RT MAE Administration Carvedilol 25 mg 01/12/24 22:00 01/14/24 06:01 Carvedilol 25 Mg Tablet PO 25 mg BID MAE Administration Protocol Clonidine 0.05 mg 01/12/24 22:00 01/14/24 06:01 Clonidine Hcl 0.1 Mg Tablet PO 0.05 mg BID MAE Administration Protocol Furosemide 40 mg 01/14/24 10:00 01/14/24 17:14 Furosemide 40 Mg/4 Ml Vial IV 40 mg BIDLX MAE Administration Protocol Glucagon 1 mg 01/12/24 15:19 Glucagon 1 Mg/Ml Syringe IM X1 PRN HYPOGLYCEMIA Protocol Guaifenesin 20 ml 01/12/24 15:19 Guaifenesin 10 Ml Udc (200mg/10ml) PO Q4H PRN PRN COUGH Pantoprazole Sodium 80 mg/ 100 mls @ 10 mls/hr 01/12/24 16:00 01/14/24 18:45 Sodium Chloride CONT INF 0 mls/hr Q10H MAE Infusion Dextrose 250 mls @ 0 mls/hr 01/12/24 15:19 Dextrose 10%-Water IV .Q0M PRN HYPOGLYCEMIA Protocol As Directed Sodium Chloride 500 mls @ 15 mls/hr 01/12/24 15:20 IV .[id number] PRN Saline Flush Sodium Chloride 500 mls @ 15 mls/hr 01/12/24 15:20 IV .[id number] PRN Additional IVPB Infusion Insulin Human Lispro 0 unit 01/12/24 18:00 01/14/24 17:14 Insulin Lispro 100 Unit/Ml Insuln.Pen SC Not Given Q6H MAE Protocol Melatonin 3 mg 01/12/24 15:19 Melatonin 3 Mg Tablet PO QHS PRN PRN INSOMNIA Nicotine 21 mg 01/12/24 15:19 01/14/24 07:52 Nicotine 21 Mg Patch TD Not Given DAILY MAE Nifedipine 90 mg 01/13/24 10:00 01/14/24 07:52 Nifedipine 90 Mg Tablet PO 90 mg DAILY MAE Administration Ondansetron HCl 4 mg 01/12/24 15:19 Ondansetron 4 Mg/2 Ml Vial IV Q8H PRN PRN NAUSEA/VOMITING Oxycodone HCl 5 mg 01/12/24 15:19 Oxycodone 5 Mg Tablet PO Q4H PRN PRN Pain Score 4-10 Sodium Chloride 10 - 40 ml 01/12/24 15:20 01/14/24 10:25 0.9% Saline Lock 10 Ml Syringe IV 10 ml UD PRN Administration SALINE FLUSH [facility] Medical History Right sided numbness Dysphagia Dyslipidemia Resistant hypertension Pressure sore of left ischium, stage 3 Difficulty walking Atherosclerosis of [place] arteries of extremities with rest pain, left leg Aftercare following surgery of the circulatory system Wound, surgical, nonhealing Abdominal pain Vitamin D deficiency Hypotension Hepatitis Vitamin B12 deficiency anemia Gout Renal failure (ARF), acute on chronic Wears glasses PVD (peripheral vascular disease) Gait instability TIA (transient ischemic attack) Syncope History of echocardiogram Cardiology follow-up encounter Nicotine dependence Nonhealing skin ulcer Peripheral arterial disease Chronic kidney disease History of diverticulitis Acute kidney injury Arthritis Kidney disease Acute kidney injury superimposed on chronic kidney disease Diverticulitis Weight gain with edema DM type 2, goal HbA1c < 7.5% Malnutrition Ulcer of perineum with fat layer exposed Ulcer of scrotum Ulcer of right groin with fat layer exposed Shingles Shingles Post-operative pain Elevated serum creatinine Hemoglobin A1c greater than 8.0 percent Hypokalemia Open wound of scrotum with complication Open wound of buttock with complication Non-healing open wound of right groin Abscess, perineum Abscess of scrotal wall Abscess of right groin Complete edentulism, class III Alcohol use Diabetes Back pain History of ulceration Shortness of breath on exertion History of pain when walking History of edema Hidradenitis suppurativa of anus Suppurative hidradenitis Gastric ulcer Ulcer of perianal area with fat layer exposed Nausea and vomiting Proteinuria due to type 2 diabetes mellitus Lupus (systemic lupus erythematosus) Weakness Edema of both legs Acute post-operative pain 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 Chronic pain Hyperlipidemia Coronary artery disease Diabetes mellitus Chronic obstructive pulmonary disease Debility Colostomy in place Complicated open wound of left thigh Open wound of left buttock with complication Abscess of buttock, left Back pain due to injury History of stress test Smoker Coronary artery disease Abscess of left thigh Wound infection Cellulitis Ankle pain Ankle pain Iron deficiency anemia Ulcer of perineum with fat layer exposed Skin ulcer of scrotum Anemia of chronic disease Acute blood loss anemia Ulcer of left groin with fat layer exposed Open wound of scrotum Acute postoperative anemia due to expected blood loss Hidradenitis suppurativa of anus Hypertension Tobacco dependence syndrome Anemia Malnutrition Cough Pneumonia involving right lung Pain in the groin Hydradenitis Diabetes mellitus type 2, uncontrolled, with complications Hypertension Hyperlipidemia associated with type 2 diabetes mellitus Diabetes type 2, uncontrolled COPD (chronic obstructive pulmonary disease) Hydradenitis Home Medications ?Medication ?Instructions ?Recorded ?Last Taken ?Type guselkumab 100 mg/mL subcutaneous 100 mg subcut Q4W ARTHRITIS 04/23/22 09/26/22 History syringe (Tremfya) carvedilol 25 mg tablet 25 mg PO BID #60 tabs 03/01/23 06/06/23 Rx nifedipine 90 mg tablet,extended 90 mg PO DAILY #90 tabs 05/08/23 12/25/23 Rx release 24 hr aspirin 81 mg tablet,delayed 81 mg PO DAILY 06/06/23 12/25/23 History release clopidogrel 75 mg tablet 75 mg PO DAILY #30 tabs 06/17/23 12/25/23 Rx atorvastatin 80 mg tablet 80 mg PO QHS #30 tabs 12/14/23 12/25/23 Rx pantoprazole 40 mg tablet,delayed 40 mg PO BID #60 tabs 12/14/23 12/25/23 Rx release albuterol sulfate 90 mcg/actuation See Rx Instructions .Route 01/01/24 Unknown Rx aerosol inhaler .COMPLEX PRN shortness of breath or wheezing #8.5 grams clonidine HCl 0.1 mg tablet 0.05 mg (1/2 x 0.1 mg) PO BID 30 01/01/24 Unknown Rx days #30 tabs furosemide 20 mg tablet (Lasix) 20 mg PO DAILY PRN weight gain #10 01/01/24 Unknown Rx tabs hydralazine 50 mg tablet 50 mg PO 4X/DAY 30 days #120 tabs 01/01/24 Unknown Rx insulin lispro 100 unit/mL 10 unit (0.1 mL) subcut TID 30 01/07/24 Unknown Rx subcutaneous pen (Humalog KwikPen days #9 mL (U-100) Insulin) insulin glargine 100 unit/mL (3 See Rx Instructions subcut .COMPLEX 01/12/24 Unknown History mL) subcutaneous pen (Lantus Solostar U-100 Insulin) Allergy/AdvReac Type Severity Reaction Status Date / Time Penicillins Allergy Unknown Verified 01/12/24 10:28 Sulfa (Sulfonamide Allergy Unknown Verified 01/12/24 10:28 Antibiotics) bupropion (From Wellbutrin) AdvReac Severe change in Verified 01/12/24 10:28 personality ,meanness and smoked more doxycycline AdvReac Severe Vomiting Verified 01/12/24 10:28 Family History Aunt Lung disease lung cancer Father Heart disease Hypertension Family history of high cholesterol Diabetes Mother Diabetes Daughter Epilepsy Surgical History Hx of vascular surgery History of excision of lesion History of incision and drainage History of coronary artery stent placement History of removal of cyst Hx of hernia repair History of tonsillectomy and adenoidectomy Social History household members: spouse Smoking Status: Current every day smoker tobacco type: cigarettes alcohol intake: never substance use type: does not use caffeine: Yes (7) Type: coffee additional social history: DOES NOT TAKE ASPIRIN DOES NOT TAKE IBUPROFEN Review of Systems (Anesthesia) ROS Narrative System reviewed and no additional complaints, except as documented.
--- NOTE | 2024-01-14 23:44 | OP.CCLET_ITS ---
01/14/2024 Adina Bhat NP After Hours [address] [id number] Re : Upper GI endoscopy procedure for Ranulfo Santos Dear Ms. Bhat This procedure was performed on Sunday, January 14, 2024. My impressions and recommendations are as follows: Impressions : - Normal esophagus. - Small hiatal hernia. - No gross lesions in the fourth portion of the duodenum. - Normal examined jejunum. - No specimens collected. Recommendations : - Return patient to [facility] for [facility]. - Resume regular diet. - Continue present medications. My findings are described in the full procedure note, which is enclosed. If I can be of further assistance, please feel free to contact me at . Sincerely, Ed Carlson, 01/14/2024 11:44:25 PM This report has been signed electronically.
--- NOTE | 2024-01-14 23:44 | OP.EGD_ITS ---
Patient Name: Ranulfo Santos Procedure Date: 01/14/2024 11:04 PM Date of : 1965 Age: 58 Procedure: Upper GI endoscopy Indications: Iron deficiency anemia, Melena Providers: Ed Carlson DO Medicines: Monitored Anesthesia Care Patient Profile: This is a 58 year old male. Refer to note in patient chart for documentation of history and physical. Patient has symptoms. Complications: No immediate complications. Procedure: Pre-Anesthesia Assessment: - Prior to the procedure, a History and Physical was performed, and patient medications and allergies were reviewed. The patient is competent. The risks and benefits of the procedure and the sedation options and risks were discussed with the patient. All questions were answered and informed consent was obtained. Patient identification and proposed procedure were verified by the physician in the pre-procedure area. Mental Status Examination: alert and oriented. Airway Examination: normal oropharyngeal airway and neck mobility. Respiratory Examination: clear to auscultation. CV Examination: normal. Prophylactic Antibiotics: The patient does not require prophylactic antibiotics. Prior Anticoagulants: The patient has taken no anticoagulant or antiplatelet agents except for NSAID medication. ASA Grade Assessment: II - A patient with mild systemic disease. After reviewing the risks and benefits, the patient was deemed in satisfactory condition to undergo the procedure. The anesthesia plan was to use monitored anesthesia care (MAC). Immediately prior to administration of medications, the patient was re-assessed for adequacy to receive sedatives. The heart rate, respiratory rate, oxygen saturations, blood pressure, adequacy of pulmonary ventilation, and response to care were monitored throughout the procedure. The physical status of the patient was re-assessed after the procedure. After obtaining informed consent, the endoscope was passed under direct vision. Throughout the procedure, the patient's blood pressure, pulse, and oxygen saturations were monitored continuously. The Colonoscope was introduced through the mouth, and advanced to the jejunum. Small bowel enteroscopy was deemed necessary. The upper GI endoscopy was accomplished without difficulty. The patient tolerated the procedure well. Scope In: 11:18:27 PM Scope Out: 11:21:08 PM Total Procedure Duration Time 0 hours 2 minutes 41 seconds Findings: The examined esophagus was normal. A small hiatal hernia was present. No other significant abnormalities were identified in a careful examination of the stomach. No gross lesions were noted in the fourth portion of the duodenum. The examined jejunum was normal. Impression: - Normal esophagus. - Small hiatal hernia. - No gross lesions in the fourth portion of the duodenum. - Normal examined jejunum. - No specimens collected. Recommendation: - [facility]. - Resume regular diet. - Continue present medications. Procedure Code(s): --- Professional --- 57541, Small intestinal endoscopy, enteroscopy beyond second portion of duodenum, not including ileum; diagnostic, including collection of specimen(s) by brushing or washing, when performed (separate procedure) CPT copyright 2021 [employer]. All rights reserved. The codes documented in this report are preliminary and upon telegraphic typewriter repairer review may be revised to meet current compliance requirements. Ed Carlson DO 01/14/2024 11:44:25 PM This report has been signed electronically. Number of Addenda: 0 Note Initiated On: 01/14/2024 11:04 PM
--- NOTE | 2024-01-14 23:48 | OP.CCLET_ITS ---
01/14/2024 Adina Bhat NP [facility] [address] [place] [id number] Re : Colonoscopy procedure for Ranulfo Santos Dear Ms. Bhat This procedure was performed on Sunday, January 14, 2024. My impressions and recommendations are as follows: Impressions : - Preparation of the colon was fair. - Non-patent end sigmoid colostomy, characterized by healthy appearing mucosa. - Patent but strictured end colostomy with healthy appearing mucosa in the sigmoid colon. - Stool in the transverse colon, at the hepatic flexure, in the ascending colon, in the cecum, at the appendiceal orifice and at the ileocecal valve. - Diverticulosis in the sigmoid colon, in the ascending colon and in the cecum. - No specimens collected. Recommendations : - [facility]. - Resume regular diet. - Continue present medications. - Repeat colonoscopy as an outpatient with capsule endoscopy. - Repeat colonoscopy because the bowel preparation was poor. My findings are described in the full procedure note, which is enclosed. If I can be of further assistance, please feel free to contact me at . Sincerely, Ed Carlson, 01/14/2024 11:48:00 PM This report has been signed electronically.
--- NOTE | 2024-01-14 23:48 | OP.COLON_ITS ---
Patient Name: Ranulfo Santos Procedure Date: 01/14/2024 11:21 PM Date of : 1965 Age: 58 Procedure: Colonoscopy Indications: This is the patient's first colonoscopy Providers: Ed Carlson DO Medicines: Monitored Anesthesia Care Patient Profile: This is a 58 year old male. Refer to note in patient chart for documentation of history and physical. Patient has symptoms. Last Colonoscopy: date unknown. Unable to locate last colonoscopy report. Complications: No immediate complications. Procedure: Pre-Anesthesia Assessment: - Prior to the procedure, a History and Physical was performed, and patient medications and allergies were reviewed. The patient is competent. The risks and benefits of the procedure and the sedation options and risks were discussed with the patient. All questions were answered and informed consent was obtained. Patient identification and proposed procedure were verified by the physician in the pre-procedure area. Mental Status Examination: alert and oriented. Airway Examination: normal oropharyngeal airway and neck mobility. Respiratory Examination: clear to auscultation. CV Examination: normal. Prophylactic Antibiotics: The patient does not require prophylactic antibiotics. Prior Anticoagulants: The patient has taken no anticoagulant or antiplatelet agents except for NSAID medication. ASA Grade Assessment: II - A patient with mild systemic disease. After reviewing the risks and benefits, the patient was deemed in satisfactory condition to undergo the procedure. The anesthesia plan was to use monitored anesthesia care (MAC). Immediately prior to administration of medications, the patient was re-assessed for adequacy to receive sedatives. The heart rate, respiratory rate, oxygen saturations, blood pressure, adequacy of pulmonary ventilation, and response to care were monitored throughout the procedure. The physical status of the patient was re-assessed after the procedure. After I obtained informed consent, the scope was passed under direct vision. Throughout the procedure, the patient's blood pressure, pulse, and oxygen saturations were monitored continuously. The Colonoscope was introduced through the anus and advanced to the terminal ileum. The colonoscopy was performed without difficulty. The patient tolerated the procedure well. The quality of the bowel preparation was fair. The ileocecal valve, appendiceal orifice, and rectum and the terminal ileum were photographed. Scope In: 11:23:51 PM Scope Withdrawal Time 0 hours 6 minutes 30 seconds Scope Out: 11:41:25 PM Total Procedure Duration Time 0 hours 17 minutes 34 seconds Findings: The perianal and digital rectal examinations were normal. There was evidence of a prior end sigmoid colostomy in the sigmoid colon. This was non-patent and was characterized by healthy appearing mucosa. The anastomosis was not traversed. There was evidence of a patent but strictured end colostomy in the sigmoid colon. This was characterized by healthy appearing mucosa. Stool was found in the transverse colon, at the hepatic flexure, in the ascending colon, in the cecum, at the appendiceal orifice and at the ileocecal valve. Lavage of the area was performed, resulting in incomplete clearance with continued poor visualization. Large-mouthed diverticula were found in the sigmoid colon, ascending colon and cecum. Impression: - Preparation of the colon was fair. - Non-patent end sigmoid colostomy, characterized by healthy appearing mucosa. - Patent but strictured end colostomy with healthy appearing mucosa in the sigmoid colon. - Stool in the transverse colon, at the hepatic flexure, in the ascending colon, in the cecum, at the appendiceal orifice and at the ileocecal valve. - Diverticulosis in the sigmoid colon, in the ascending colon and in the cecum. - No specimens collected. Recommendation: - [facility]. - Resume regular diet. - Continue present medications. - Repeat colonoscopy as an outpatient with capsule endoscopy. - Repeat colonoscopy because the bowel preparation was poor. Procedure Code(s): --- Professional --- 98809, Colonoscopy, flexible; diagnostic, including collection of specimen(s) by brushing or washing, when performed (separate procedure) CPT copyright 2021 [employer]. All rights reserved. The codes documented in this report are preliminary and upon brine tank operator review may be revised to meet current compliance requirements. Ed Carlson DO 01/14/2024 11:48:00 PM This report has been signed electronically. Number of Addenda: 0 Note Initiated On: 01/14/2024 11:21 PM
--- NOTE | 2024-01-14 23:53 | PCM.POST.ANE ---
Anesthesia: Postop Eval I Current Vital Signs Temperature: 98 F Pulse Rate: 79 Blood Pressure: 143/68 Respiratory Rate: 19 Pulse Ox: 98 Assessment Airway patent: Yes Spontaneous unlabored respirations: Yes nausea: No Vomiting: No Anesthesia Complication: No Fluid Hydration Crystalloid volume administer (ml): 400 Total IV fluid infused: 400 Progress Note Anesthesia document: Postop Eval 1 completed: Yes
--- NOTE | 2024-01-14 23:54 | PCM.POSTANE2 ---
Anesthesia Postop Eval I Sum Postop Eval Completion status Anesthesia document: Postop Eval 1 completed: Yes Anesthesia Postop Eval I Summary Anesthesia Postop Eval I Summary: Anesthesia Postop Eval I: Assessment Summary Airway patent Yes 01/14/24 23:53 [facility]OTE Spontaneous unlabored Yes 01/14/24 23:53 [facility]OTE respirations Mental status nausea No 01/14/24 23:53 [facility] Vomiting No 01/14/24 23:53 [facility] Anesthesia Postop Eval I: Fluid Summary Crystalloid volume administer 400 01/14/24 23:53 [facility]JCOTE (ml) Colloids volume administered ( ml) Blood Product volume administered (ml) Total IV fluid infused 400 01/14/24 23:53 [facility]JCOTE Anesthesia Postop Eval I: Summary Notes Anesthesia Complication No 01/14/24 23:53 [facility]JCOTE Anesthesia Complication Comment: Post-operative progress note Anesthesia: Postop Eval II Evaluation Mental status: Asleep Pain Level: 0 nausea: No Vomiting: No
--- NOTE | 2024-01-14 23:54 | POSTOPAN2_ITS ---
Anesthesia Postop Eval I Sum Postop Eval Completion status Anesthesia document: Postop Eval 1 completed: Yes Anesthesia Postop Eval I Summary Anesthesia Postop Eval I Summary: Anesthesia Postop Eval I: Assessment Summary Airway patent Yes 01/14/24 23:53 [employer] PAR[employer]AL.JCOTE Spontaneous unlabored Yes 01/14/24 23:53 [employer]JCOTE respirations Mental status nausea No 01/14/24 23:53 [employer]JCOTE Vomiting No 01/14/24 23:53 [employer] PAR[employer].JCOTE Anesthesia Postop Eval I: Fluid Summary Crystalloid volume administer 400 01/14/24 23:53 [employer] PAR[employer]ESSIONAL.JCOTE (ml) Colloids volume administered ( ml) Blood Product volume administered (ml) Total IV fluid infused 400 01/14/24 23:53 [employer] PAR[employer]ESSIONAL.JCOTE Anesthesia Postop Eval I: Summary Notes Anesthesia Complication No 01/14/24 23:53 [employer] PAR[employer]ESSIONAL.JCOTE Anesthesia Complication Comment: Post-operative progress note Anesthesia: Postop Eval II Evaluation Mental status: Asleep Pain Level: 0 nausea: No Vomiting: No
[2024-01-15] VITALS (8 sets, daily range): BP systolic 128–162; BP diastolic 51–64; PULSE 54–77; RESP 16–18; TEMP 36.2–37.3; O2SAT 91–98
[2024-01-15] MEDS: cloNIDine HCl 0.1 MG Tablet 0.05 MG PO ×2 (00:33→09:49)
[2024-01-15] MEDS: Atorvastatin Calcium 80 MG Tablet PO (00:34)
[2024-01-15] MEDS: Carvedilol 25 MG Tablet PO ×2 (00:34→09:49)
[2024-01-15 06:31] LABS: Bedside Glucose 73 mg/dL (74-106)
[2024-01-15 06:32] LABS: Bedside Glucose 171 mg/dL (74-106)
[2024-01-15 08:03] LABS: Anion Gap 8 (5-15); BUN 40 mg/dL (7-18); BUN/Creat Ratio 10.4 RATIO (10-20); Calcium,Total 8.7 mg/dL (8.5-10.1); Chloride 106 mmol/L (98-107); Creatinine, Serum 3.83 mg/dL (0.70-1.30); EST Glomerular Filtration Rate 17 mL/min (>60); Est Glom Filt Rate - Afr Amer 21 mL/min (>60); Estimated Creatinine Clearance 19.84 ml/min; Glucose 165 mg/dL (74-106); Potassium 3.9 mmol/L (3.5-5.1); Sodium Level 141 mmol/L (136-145)
[2024-01-15] MEDS: Pantoprazole Sodium 80 MG in 0.9% Normal Saline (100mL Bag) 80 ML 10 MG CONT INF (09:47)
[2024-01-15] MEDS: Furosemide 40 MG/4 ML Vial IV (09:48)
[2024-01-15] MEDS: NIFEdipine 90 MG Tablet PO (09:50)
[2024-01-15] MEDS: 0.9% Saline Lock 10 ML Syringe IV (09:59)
--- NOTE | 2024-01-15 14:31 | PCM.DC ---
Discharge Instructions Diet Discharge Diet: 1800 Calorie Control Diet DC O2, CPAP, BIPAP needs RN Home O2 Qualification: Home O2 Qualification: Is the patient on home oxygen No 01/15/24 10:10 Home O2 Qualification: AT REST 1- Pulse Ox at rest 95 01/15/24 10:10 Home O2 Qualification: WITH AMBULATION 1- Pulse Ox with ambulation 93 01/15/24 10:10 1- Oxygen Flow Rate with 0 01/15/24 10:10 ambulation PSN CPAP & BiPAP: BiPAP & CPAP Settings per PSN Mode BiPAP 01/13/24 07:18 Bipap Delivery Device Face Mask 01/13/24 07:18 BiPAP Inspiratory Pressure 16 01/13/24 07:18 BiPAP Expiratory Pressure 10 01/13/24 07:18 BiPAP Rate 14 01/13/24 07:18 Fraction of Inspired Oxygen ( 40 01/14/24 20:13 FIO2) Additional Home O2 Discharge instructions: No Dressing / Incision Discharge Activity: Return to Normal Activity Weight Bearing Status: Full weight bearing Follow Up Care Test Results: Test results from this visit will be discussed in further detail at your follow-up appointment, if applicable. Discharge Plan Admission Admit Date/Time: 01/12/24 14:15 Attending Provider: Nixon Wall Primary Care Provider: Adina Bhat NP Consulting Providers: Bhavani Wall Discharge Orders/Prescriptions Prescriptions: New furosemide [Lasix] 40 mg tablet 40 mg PO BIDCM Qty: 60 0RF Continued Tremfya 100 mg/mL syringe 100 mg subcut Q4W Patient Comments: PT CÉSARJOSÉ ANTONIO THIS IS EVERY 8 WEEKS, DOESNT REMEMBER LAST DOSE carvedilol 25 mg tablet 25 mg PO BID Qty: 60 12RF Rx Instructions: must administer with a meal/food aspirin 81 mg tablet,delayed release (DR/EC) 81 mg PO DAILY atorvastatin 80 mg Tablet 80 mg PO QHS Qty: 30 2RF pantoprazole 40 mg Tablet,Delayed Release (Dr/Ec) 40 mg PO BID Qty: 60 2RF clonidine HCl 0.1 mg Tablet 0.05 mg PO BID 30 Days Qty: 30 0RF albuterol sulfate 90 mcg/actuation HFA aerosol inhaler See Rx Instructions .ROUTE .COMPLEX PRN (Reason: shortness of breath or wheezing) Qty: 8.5 0RF Rx Instructions: 1-2 puffs every 4-6 hours as needed for shortness of breath or wheezing insulin glargine [Lantus Solostar U-100 Insulin] 100 unit/mL (3 mL) insulin pen See Rx Instructions SUBCUT .COMPLEX Patient Comments: PLEASE SEE ATTACHED FOR DETAILED DIRECTIONS Rx Instructions: subcutaneously; PLEASE SEE ATTACHED FOR DETAILED DIRECTIONS nifedipine 90 mg tablet extended release 24hr 90 mg PO DAILY Qty: 90 3RF clopidogrel 75 mg tablet 75 mg PO DAILY Qty: 30 12RF insulin lispro [Humalog KwikPen Insulin] 100 unit/mL insulin pen 10 unit subcut TID 30 Days Qty: 9 12RF Discontinued furosemide [Lasix] 20 mg tablet 20 mg PO DAILY PRN (Reason: weight gain) Qty: 10 0RF Rx Instructions: take a dose if you gain more than 2 pounds in 1 day or 5 pounds in 1 week. hydralazine 50 mg Tablet 50 mg PO 4X/DAY 30 Days Qty: 120 0RF Referrals / Follow Up: Adina Bhat NP, [employer]PERIMENT[employer] [Primary Care Provider] - In 1 Week Disposition Disposition (needs filled in before D/C Order can be placed): Home, Self Care
--- NOTE | 2024-01-15 14:41 | PCM.DC.SUM ---
Providers Date of Admission: 01/12/24 Date of Discharge: 01/15/24 Primary Care Physician: DEVONTE Zimmerman Consultations 01/12/24 15:19 Consult: Gastroenterology Routine Consulting Provider: [facility] Reason for Consult: ABLA, GI bleed recurrence EMERGENT Consult: No MD Notified: Yes Date Notified: 01/12/24 Time Notified: 14:46 Method of Notification: Text Reason For Visit: HFPEF, ABLA RECURRENT GI BLEED Diagnosis Discharge Diagnosis (1) Congestive heart failure: Status: Acute Code(s): I50.9 - Heart failure, unspecified Plan 1. Acute hypoxic respiratory failure secondary to acute on chronic congestive heart failure with preserved ejection fraction-pulse ox will be monitored, patient is currently on room air #2 acute on chronic diastolic congestive heart failure-patient remains on IV Lasix every 12 hours #3 acute on chronic anemia secondary to suspected gastrointestinal bleeding requiring blood transfusion-patient will undergo colonoscopy tomorrow, he remains on a PPI drip at this time #4 chronic kidney disease stage IV-complicates care, management, recovery, and prognosis #5 type 2 diabetes-patient will remain on Accu-Cheks and sliding scale insulin #6 essential hypertension-patient will remain on his current medications for blood pressure and they will be adjusted as needed #7 peripheral vascular disease-patient remains on aspirin and Plavix #8 chronic obstructive pulmonary disease-patient is currently on budesonide aerosols and albuterol aerosols as needed. Total clinical time spent by myself addressing the patient's medical issues, reviewing all of his data, and collaborating with the patient's care team: 35 minutes Medications at Discharge Home Medications guselkumab 100 mg/mL subcutaneous syringe (Tremfya) 100 mg subcut Q4W ARTHRITIS 04/23/22 carvedilol 25 mg tablet 25 mg PO BID #60 tabs 03/01/23 nifedipine 90 mg tablet,extended release 24 hr 90 mg PO DAILY #90 tabs 05/08/23 aspirin 81 mg tablet,delayed release 81 mg PO DAILY 06/06/23 clopidogrel 75 mg tablet 75 mg PO DAILY #30 tabs 06/17/23 atorvastatin 80 mg tablet 80 mg PO QHS #30 tabs 12/14/23 pantoprazole 40 mg tablet,delayed release 40 mg PO BID #60 tabs 12/14/23 albuterol sulfate 90 mcg/actuation aerosol inhaler See Rx Instructions .Route .COMPLEX PRN shortness of breath or wheezing #8.5 grams 01/01/24 clonidine HCl 0.1 mg tablet 0.05 mg (1/2 x 0.1 mg) PO BID 30 days #30 tabs 01/01/24 insulin lispro 100 unit/mL subcutaneous pen (Humalog KwikPen (U-100) Insulin) 10 unit (0.1 mL) subcut TID 30 days #9 mL 01/07/24 insulin glargine 100 unit/mL (3 mL) subcutaneous pen (Lantus Solostar U-100 Insulin) See Rx Instructions subcut .COMPLEX 01/12/24 furosemide 40 mg tablet (Lasix) 40 mg PO BIDCM #60 tabs 01/15/24 Hospital Course Operations None Procedures Blood transfusion, Colonoscopy and EGD Summary of Care Provided Minutes Spent on Discharge: 31 Hospital Course: This 58-year-old white male was seen in the emergency room at [facility] with complaints of swelling of his lower extremities as well as shortness of breath and shortness of breath on exertion that started a week ago. Workup in the emergency room included a CBC which showed normal white blood cell count, hemoglobin was low at 6.4, BUN was 43 and creatinine was 3.97. Chest x-ray showed interval involvement of bilateral pleural effusion and interstitial lung disease. Patient was admitted to PCU for acute hypoxic respiratory failure secondary to acute on chronic congestive heart failure with preserved ejection fraction, he was transfused 2 units of packed red blood cells and placed on a Lasix drip. Patient was seen in consultation by gastroenterology and underwent a colonoscopy and EGD. There was no evidence of any bleeding in a gastrointestinal tract noted on either endoscopic exams. Patient was eventually weaned off of oxygen. On 01/15/2024, patient was seen and examined: On examination he appeared in good health and spirits. Vital signs as documented. Skin warm and dry and without overt rashes. Neck without JVD, neck was supple, trachea midline, thyroid was normal. Lungs clear bilaterally, normal air movement was noted. Heart exam notable for regular rhythm, normal sounds and absence of murmurs, rubs or gallops. Abdomen unremarkable and without evidence of organomegaly, masses, or abdominal aortic enlargement. Bowel sounds are present, abdomen is not distended. Extremities nonedematous, no cyanosis was noted, no clubbing was noted. Neuro: Cranial nerves II through XII are grossly intact, no focal motor deficits were noted, sensation to light touch and pinprick intact, motor exam 5/5 throughout. Psych: Patient is alert and oriented x3, he does not appear anxious or depressed, he does not appear agitated. Patient appears stable for discharge home on 01/15/2024 in stable condition Weight / BMI Weight Weight: 72.9 kg Body Mass Index (BMI) 24.4 ABG / Lab / Microbiology Data 01/14/24 05:27 01/15/24 03:30 Laboratory: Laboratory Results - last 24 hr 01/14/24 17:20: POC Glucose 83 01/15/24 00:28: POC Glucose 73 L 01/15/24 03:30: Sodium 141, Potassium 3.9, Chloride 106, Carbon Dioxide 27.0, Anion Gap 8, BUN 40 H, Creatinine 3.83 H, Estim Creat Clear Calc 19.84, Est GFR (MDRD) Af Amer 21 L, Est GFR (MDRD) Non-Af 17 L, BUN/Creatinine Ratio 10.4, Glucose 165 H, Calcium 8.7 01/15/24 06:08: POC Glucose 171 H Microbiology: Microbiology 01/12/24 13:40 Stool Stool Occult Blood (RODRIGUE) - Final Occult Blood Positive D/C Instructions Discharge Diet: 1800 Calorie Control Diet Weight Bearing Status: Full weight bearing DC O2, CPAP, BIPAP Needs RN Home O2 Qualification: Home O2 Qualification: Is the patient on home oxygen No 01/15/24 10:10 Home O2 Qualification: AT REST 1- Pulse Ox at rest 95 01/15/24 10:10 Home O2 Qualification: WITH AMBULATION 1- Pulse Ox with ambulation 93 01/15/24 10:10 1- Oxygen Flow Rate with 0 01/15/24 10:10 ambulation PSN CPAP & BiPAP: BiPAP & CPAP Settings per PSN Mode BiPAP 01/13/24 07:18 Bipap Delivery Device Face Mask 01/13/24 07:18 BiPAP Inspiratory Pressure 16 01/13/24 07:18 BiPAP Expiratory Pressure 10 01/13/24 07:18 BiPAP Rate 14 01/13/24 07:18 Fraction of Inspired Oxygen ( 40 01/14/24 20:13 FIO2) Additional Home O2 Discharge instructions: No DC home with Oxygen: No Meaningful Use Info Meaningful Use Meaningful Use Diagnoses (Choose all that apply): None applicable Ischemic Stroke Statin Dosing Therapy Reference: STATIN DOSE THERAPY REFERENCE: * Patients > 75 years receive moderate or high dose statin therapy. * Patients 75 years or YOUNGER should receive HIGH intensity statin dose unless contraindicated. You will be required to document reason for non-treatment if statin daily dose does not meet guidelines. HIGH DOSE STATIN THERAPY DAILY Atorvastatin > than or = to 40 mg Rosuvastatin > than or = to 20 mg Amlodipine + Atorvastatin > than or = to 2.5/40 mg Ezetimibe + Simvastatin 10/80 mg Simvastatin 80mg Discharge Plan Admission Admit Date/Time: 01/12/24 14:15 Attending Provider: Nixon Wall Primary Care Provider: Adina Bhat NP Consulting Providers: Bhavani Wall Discharge Orders/Prescriptions Prescriptions: New furosemide [Lasix] 40 mg tablet 40 mg PO BIDCM Qty: 60 0RF Continued Tremfya 100 mg/mL syringe 100 mg subcut Q4W Patient Comments: PT RICO THIS IS EVERY 8 WEEKS, DOESNT REMEMBER LAST DOSE carvedilol 25 mg tablet 25 mg PO BID Qty: 60 12RF Rx Instructions: must administer with a meal/food aspirin 81 mg tablet,delayed release (DR/EC) 81 mg PO DAILY atorvastatin 80 mg Tablet 80 mg PO QHS Qty: 30 2RF pantoprazole 40 mg Tablet,Delayed Release (Dr/Ec) 40 mg PO BID Qty: 60 2RF clonidine HCl 0.1 mg Tablet 0.05 mg PO BID 30 Days Qty: 30 0RF albuterol sulfate 90 mcg/actuation HFA aerosol inhaler See Rx Instructions .ROUTE .COMPLEX PRN (Reason: shortness of breath or wheezing) Qty: 8.5 0RF Rx Instructions: 1-2 puffs every 4-6 hours as needed for shortness of breath or wheezing insulin glargine [Lantus Solostar U-100 Insulin] 100 unit/mL (3 mL) insulin pen See Rx Instructions SUBCUT .COMPLEX Patient Comments: PLEASE SEE ATTACHED FOR DETAILED DIRECTIONS Rx Instructions: subcutaneously; PLEASE SEE ATTACHED FOR DETAILED DIRECTIONS nifedipine 90 mg tablet extended release 24hr 90 mg PO DAILY Qty: 90 3RF clopidogrel 75 mg tablet 75 mg PO DAILY Qty: 30 12RF insulin lispro [Humalog KwikPen Insulin] 100 unit/mL insulin pen 10 unit subcut TID 30 Days Qty: 9 12RF Discontinued furosemide [Lasix] 20 mg tablet 20 mg PO DAILY PRN (Reason: weight gain) Qty: 10 0RF Rx Instructions: take a dose if you gain more than 2 pounds in 1 day or 5 pounds in 1 week. hydralazine 50 mg Tablet 50 mg PO 4X/DAY 30 Days Qty: 120 0RF Referrals / Follow Up: Adina Bhat NP, [facility] [Primary Care Provider] - In 1 Week (Please call the office to schedule an appt. ) Disposition Disposition (needs filled in before D/C Order can be placed): Home Health Service Charges/Coding Visit Charges Inpatient E&M: 90490 Disch Hosp >30min
--- NOTE | 2024-01-15 15:38 | CASEMGMT ---
Addendum entered by Valeria May 01/15/24 16:18: [facility]'s service [facility]. RN CM updated patient and . Patient and voiced understanding and are ready to discharge. RN CM updated patient that DC director financial planning will make HHC list and ask for preferences. CM will work on setting up HHC in the morning and will notify patient and of setup. Patietn and agreeable to plan and had no further questions or concerns. RN CM updated discharge planning assitant. Original Note: Patient has order for discharge. RN CM in to discuss needs at discharge, at bedside. RN CM discuss HHC at discharge. Patient and agreeable and prefer [facility], declined list. Patient did not qualify for home oxygen at discharge. Patient and deny further needs or help at discharge. Patient and had no further questions or concerns. RN CM made referral to [facility], awaiting acceptance.
--- NOTE | 2024-01-15 16:21 | CASEMGMT ---
Discharge Planning A list of?HH providers including quality and resource use data and consistent with the patient's preferred geographic region, medical needs, and insurance network was created in CarePort Guide.? This list was provided to the pt and his . Jayshree Naranjo, Discharge Planning Asst.
--- NOTE | 2024-01-15 16:33 | CASEMGMT ---
Addendum entered by aJyshree Naranjo 01/16/24 09:31: Both agencies declined. SW updated. Jayshree Naranjo DC Planning Asst. Original Note: Discharge Planning HH list delivered to pt and his . They would like referrals sent to [facility] and [facility]. Referrals sent via CarePort to both. SOLANGE NATARAJAN updated. Jayshree Naranjo DC Planning Asst.
[2024-01-16 00:56] LABS: Bedside Glucose 203 mg/dL (74-106)
--- NOTE | 2024-01-16 09:31 | CASEMGMT ---
Addendum entered by Jayshree Naranjo 01/16/24 10:05: [facility] declined referral. Jayshree Naranjo DC Planning Asst. Original Note: Discharge Planning referral sent to [facility]. Jayshree Naranjo DC Planning Asst.
--- NOTE | 2024-01-16 10:06 | CASEMGMT ---
Addendum entered by Jayshree Naranjo 01/16/24 10:29: [facility] declined d/t being OON, [facility] declined d/t being [facility], and [facility] declined (no reason given). Jayshree Naranjo DC Planning Asst. Original Note: Discharge Planning HH referral sent to [facility], [facility], [facility], and . Jayshree Naranjo DC Planning Asst.
--- NOTE | 2024-01-16 10:42 | CASEMGMT ---
Addendum entered by Jayshree Naranjo 01/16/24 14:06: [facility], [facility], [facility], and [facility] declined. [facility] with [facility] 01/21/24. Pt's (Shima) updated. Contact information for [facility] provided. Jayshree Naranjo DC Planning Asst. Original Note: Discharge Planning HH referral sent to [facility], [facility], [facility], [facility], [facility], [facility], and [facility]. Jayshree Naranjo DC Planning Asst.
== END 2024-01-15 16:59 | disposition home health service (06) | DRG 377 ==
LOC: ED 13:52 → PCU 14:35
PROVIDERS: Anesthesiology; Internal Medicine Gastroenterology; Admitting Provider Family Medicine; Emergency Provider Emergency Medicine; PCP Nurse Practitioner; Visit Provider Internal Medicine
PROC: 0DJD8ZZ Inspection of Lower Intestinal Tract, Via Natural or Artificial Opening Endoscopic (ICD-10-PCS; CPT 45378; principal; 2024-01-14 18:00)
DX: K92.2 Gastrointestinal hemorrhage, unspecified (principal); I50.33 Acute on chronic diastolic (congestive) heart failure; J96.01 Acute respiratory failure with hypoxia; D68.32 Hemorrhagic disorder due to extrinsic circulating anticoagulants; N18.4 Chronic kidney disease, stage 4 (severe); I13.0 Hypertensive heart and chronic kidney disease with heart failure and stage 1 through stage 4 chronic kidney disease, or unspecified chronic kidney disease; E11.22 Type 2 diabetes mellitus with diabetic chronic kidney disease; D50.9 Iron deficiency anemia, unspecified; J44.9 Chronic obstructive pulmonary disease, unspecified; M32.9 Systemic lupus erythematosus, unspecified; Z93.3 Colostomy status; E11.51 Type 2 diabetes mellitus with diabetic peripheral angiopathy without gangrene; E78.5 Hyperlipidemia, unspecified; I25.10 Atherosclerotic heart disease of native coronary artery without angina pectoris; F17.210 Nicotine dependence, cigarettes, uncomplicated; Z79.4 Long term (current) use of insulin; K44.9 Diaphragmatic hernia without obstruction or gangrene; K57.30 Diverticulosis of large intestine without perforation or abscess without bleeding; Z86.73 Personal history of transient ischemic attack (TIA), and cerebral infarction without residual deficits; Z79.02 Long term (current) use of antithrombotics/antiplatelets; Z79.82 Long term (current) use of aspirin; Z79.51 Long term (current) use of inhaled steroids; Z79.899 Other long term (current) drug therapy; Z95.5 Presence of coronary angioplasty implant and graft
CPT/HCPCS: 36415; 71046; 80048; 80053; 80061; 82274; 82962; 83036; 83735; 83880; 84100; 84443; 84484; 85014; 85018; 85025; 85610; 85730; 86850; 86900; 86901; 86920; 86922; 93005; 94002; 94003; 94640; 94762; 97110; 97162; 97166; 97530; 97535; 97802; 99285; J7040; P9016; A4216; J1940; J2405

== ENCOUNTER → 2024-01-24 | Outpatient (CLI) | payer BC, MEDICARE, SELFPAY ==
[2024-01-24 22:28] LABS: Absolute Lymphocyte Count 1.44 X10^3/uL (0.83-4.51); Absolute Neutrophil Count 6.7 X10^3/uL (2.0-7.7); Basophil# 0.06 X10^3/uL; Basophil% 0.7 % (0-1); Eosinophils% 2.2 % (0-5); Hematocrit 23.8 % (40-54); Hemoglobin 7.4 g/dL (13.0-16.5); Lymphocyte # 1.44 X10^3/ul (0.83-4.51); Lymphocyte % 15.9 % (19-41); Mean Corp Hgb Conc 31.1 g/dL (32-36); Mean Corpuscular Hgb 27.9 pg (27.0-32.0); Mean Corpuscular Volume 89.8 fL (80-94); Mean Platelet Vol. 9.5 fl (6.2-12.0); Monocyte# 0.61 X10^3/uL; Monocyte% 6.7 % (0-10); NRBC Flagged by Analyzer 0 % (0-5); Neutrophil # 6.68 X10^3/uL (2.7-7.7); Neutrophil % 73.9 % (47-70); Platelet Count 357 K/mm3 (150-450); RBC Distribution Width CV 15.7 % (11.6-14.6); RBC Distribution Width SD 50.4 fl (35.1-43.9); Red Blood Count 2.65 M/mm3 (4.6-6.2)
[2024-01-24 22:54] LABS: ALB/GLOB Ratio 0.6 RATIO (0.9-2.4); AST(SGOT) 5 U/L (15-37); Alanine Aminotransfer ALT/SGPT 16 U/L (16-61); Albumin, Serum 2.5 g/dL (3.2-5.0); Alkaline Phosphatase 106 U/L (45-117); Anion Gap 3 (5-15); BUN 40 mg/dL (7-18); BUN/Creat Ratio 11.1 RATIO (10-20); Calcium,Total 8.5 mg/dL (8.5-10.1); Chloride 112 mmol/L (98-107); Creatinine, Serum 3.61 mg/dL (0.70-1.30); EST Glomerular Filtration Rate 18 mL/min (>60); Est Glom Filt Rate - Afr Amer 22 mL/min (>60); Globulin 4.1 g/dL (2.2-4.2); Glucose 176 mg/dL (74-106); Iron 27 ug/dL (65-175); Iron Binding Capacity,Total 189 ug/dL (250-450); Magnesium 1.9 mg/dL (1.6-2.6); PERCENT IRON SATURATION 14.3 % (15.0-55.0); Potassium 5.1 mmol/L (3.5-5.1); Protein, Total 6.6 g/dL (6.4-8.2); Sodium Level 142 mmol/L (136-145)
[2024-01-28 15:07] LABS: Prealbumin 17 mg/dL (10-36); Vitamin D 1,25-Dihydroxy <5.0 pg/mL (24.8-81.5)
[2024-01-31 09:07] LABS: Transferrin 169 mg/dL (177-329); VITAMIN B6 4.5 ug/L (3.4-65.2)
== END | disposition home or self-care (01) ==
PROVIDERS: PCP Nurse Practitioner; Referring Provider Nurse Practitioner; Visit Provider Nurse Practitioner
DX: E55.9 Vitamin D deficiency, unspecified (principal); N18.4 Chronic kidney disease, stage 4 (severe); E11.65 Type 2 diabetes mellitus with hyperglycemia; E11.22 Type 2 diabetes mellitus with diabetic chronic kidney disease; Z86.73 Personal history of transient ischemic attack (TIA), and cerebral infarction without residual deficits; D64.9 Anemia, unspecified; E61.1 Iron deficiency; D72.18 Eosinophilia in diseases classified elsewhere; E44.0 Moderate protein-calorie malnutrition
CPT/HCPCS: 80053; 82652; 83540; 83550; 83735; 84134; 84207; 84443; 84466; 85025

== ENCOUNTER 2024-01-28 11:27 | Inpatient (IN) | payer BC, MEDICARE, SELFPAY ==
[2024-01-28] VITALS (13 sets, daily range): BP systolic 110–158; BP diastolic 43–62; PULSE 60–69; RESP 13–20; TEMP 36.2–36.8; O2SAT 95–100; BMI 23.6; BMI 23.3
--- NOTE | 2024-01-28 11:45 | EX.ED.DYSGE1 ---
HPI History of Present Illness Chief Complaint: Abn Labs Informant: patient and family Narrative Narrative: 58-year-old male with multiple medical problems presenting to the emergency room with anemia. Patient has a history of acute on chronic anemia. He is followed by GI (Dr. Carlson) nephrology (Dr. Baird) oncology (Dr Cm). He was seen by his primary care doctor yesterday who noted that he appeared pale and recommended he come into the hospital yesterday or today after his oncology appointment. He went to his oncology appointment went downstairs had his blood drawn and then came to the emergency. He notes fatigue. He notes his stool has been dark. He underwent EGD and colonoscopy during his last admission and did not show signs of acute bleeding. He does have a history of anasarca but notes that he is not having any difficulty breathing today and is not on home oxygen. He has a history of nonhealing wounds and malnutrition as well as chronic kidney disease and has a colostomy. No reported syncope. He is on Plavix and aspirin and also takes pantoprazole. History of his erosive esophagitis. Patient did not eat today due to weakness and coming to the hospital. He does not recall what he ate yesterday but believes he did do so. [facility] Medical History (Updated 01/28/24 @ 13:56 by Yolanda Crabtree) Chronic pain Congestive heart failure (CHF) Myocardial infarct Chest pain Anemia due to chronic renal failure treated with erythropoietin, stage 4 (severe) Iron deficiency anemia due to chronic blood loss Congestive heart failure Right sided numbness Dysphagia Renal failure (ARF), acute on chronic Gout Vitamin B12 deficiency anemia Hepatitis Hypotension Vitamin D deficiency Abdominal pain Wound, surgical, nonhealing Aftercare following surgery of the circulatory system Atherosclerosis of [place] arteries of extremities with rest pain, left leg Difficulty walking Wears glasses PVD (peripheral vascular disease) Gait instability TIA (transient ischemic attack) Syncope History of echocardiogram Cardiology follow-up encounter Pressure sore of left ischium, stage 3 Resistant hypertension Dyslipidemia Nicotine dependence Nonhealing skin ulcer Peripheral arterial disease Chronic kidney disease History of diverticulitis Acute kidney injury Arthritis Kidney disease Acute kidney injury superimposed on chronic kidney disease Diverticulitis Weight gain with edema DM type 2, goal HbA1c < 7.5% Malnutrition Ulcer of perineum with fat layer exposed Ulcer of scrotum Ulcer of right groin with fat layer exposed Shingles Shingles Post-operative pain Elevated serum creatinine Hemoglobin A1c greater than 8.0 percent Hypokalemia Open wound of scrotum with complication Open wound of buttock with complication Non-healing open wound of right groin Abscess, perineum Abscess of scrotal wall Abscess of right groin Complete edentulism, class III Alcohol use Diabetes Back pain History of ulceration Shortness of breath on exertion History of pain when walking History of edema Hidradenitis suppurativa of anus Suppurative hidradenitis Gastric ulcer Ulcer of perianal area with fat layer exposed Nausea and vomiting Proteinuria due to type 2 diabetes mellitus Lupus (systemic lupus erythematosus) Weakness Edema of both legs Acute post-operative pain 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 Chronic pain Hyperlipidemia Coronary artery disease Diabetes mellitus Chronic obstructive pulmonary disease Debility Colostomy in place Complicated open wound of left thigh Open wound of left buttock with complication Abscess of buttock, left Back pain due to injury History of stress test Smoker Coronary artery disease Abscess of left thigh Wound infection Cellulitis Ankle pain Ankle pain Iron deficiency anemia Ulcer of perineum with fat layer exposed Skin ulcer of scrotum Anemia of chronic disease Acute blood loss anemia Ulcer of left groin with fat layer exposed Open wound of scrotum Acute postoperative anemia due to expected blood loss Hidradenitis suppurativa of anus Hypertension Tobacco dependence syndrome Anemia Malnutrition Cough Pneumonia involving right lung Pain in the groin Hydradenitis Diabetes mellitus type 2, uncontrolled, with complications Hypertension Hyperlipidemia associated with type 2 diabetes mellitus Diabetes type 2, uncontrolled COPD (chronic obstructive pulmonary disease) Hydradenitis Home Medications ?Medication ?Instructions ?Recorded ?Last Taken ?Type guselkumab 100 mg/mL subcutaneous 100 mg subcut Q4W ARTHRITIS 04/23/22 09/26/22 History syringe (Tremfya) carvedilol 25 mg tablet 25 mg PO BID #60 tabs 03/01/23 06/06/23 Rx nifedipine 90 mg tablet,extended 90 mg PO DAILY #90 tabs 05/08/23 12/25/23 Rx release 24 hr aspirin 81 mg tablet,delayed 81 mg PO DAILY 06/06/23 12/25/23 History release atorvastatin 80 mg tablet 80 mg PO QHS #30 tabs 12/14/23 12/25/23 Rx pantoprazole 40 mg tablet,delayed 40 mg PO BID #60 tabs 12/14/23 12/25/23 Rx release albuterol sulfate 90 mcg/actuation See Rx Instructions .Route 01/01/24 Unknown Rx aerosol inhaler .COMPLEX PRN shortness of breath or wheezing #8.5 grams furosemide 40 mg tablet (Lasix) 40 mg PO BIDCM #60 tabs 01/15/24 Unknown Rx clonidine HCl 0.1 mg tablet 0.05 mg (1/2 x 0.1 mg) PO BID 30 01/24/24 Unknown Rx days #30 tabs clopidogrel 75 mg tablet 75 mg PO DAILY #30 tabs 01/24/24 Unknown Rx dapagliflozin propanediol 10 mg 10 mg PO QAM 01/24/24 Unknown History tablet (Farxiga) Allergy/AdvReac Type Severity Reaction Status Date / Time Penicillins Allergy Unknown Verified 01/28/24 11:30 Sulfa (Sulfonamide Allergy Unknown Verified 01/28/24 11:30 Antibiotics) bupropion (From Wellbutrin) AdvReac Severe change in Verified 01/28/24 11:30 personality ,meanness and smoked more doxycycline AdvReac Severe Vomiting Verified 01/28/24 11:30 Family History Aunt Lung disease lung cancer Father Heart disease Hypertension Family history of high cholesterol Diabetes Mother Diabetes Daughter Epilepsy Surgical History Hx of vascular surgery History of excision of lesion History of incision and drainage History of coronary artery stent placement History of removal of cyst Hx of hernia repair History of tonsillectomy and adenoidectomy Social History household members: spouse Smoking Status: Current every day smoker tobacco type: cigarettes alcohol intake: never substance use type: does not use caffeine: Yes (7) Type: coffee additional social history: DOES NOT TAKE ASPIRIN DOES NOT TAKE IBUPROFEN ROS ROS ED ROS Narrative Generalized fatigue Constitutional Constitutional ED: Denies chills, fever(s) or weight loss Eyes Eyes: Denies change in vision or diplopia ENT ENT ED: Denies ear pain, rhinorrhea or sore throat Cardiovascular Cardiovascular: Denies chest pain, orthopnea, palpitations or racing heartbeat Respiratory/Chest Respiratory/Chest: Denies cough, dyspnea or orthopnea Gastrointestinal Gastrointestinal: Denies abdominal pain, diarrhea, nausea or vomiting Genitourinary Genitourinary ED: Denies dysuria, hematuria or urinary frequency Musculoskeletal Musculoskeletal: Denies arthralgias or myalgias Integumentary Denies abscess or rash Neurologic Neurologic: Denies headache(s) or weakness Psychiatric Psychiatric: Denies anxiety, depression, suicidal ideation or suicidal thoughts Endocrine Endocrinology: Denies polydipsia, polyphagia or polyuria Allergic/Immunologic Allergic/Immunologic ED: Denies mouth swelling, tongue swelling or urticaria EXAM Physical Exam Const Vital Signs: 01/28/24 11:28 01/28/24 12:55 01/28/24 13:30 Temperature 98.1 F 98.3 F 97.5 F L Temperature Source Temporal Axillary Pulse Rate 63 65 67 Respiratory Rate 20 H 16 13 Blood Pressure 110/43 L 125/56 H 158/59 H Blood Pressure Mean 65 79 92 Blood Pressure Source Monitor Pulse Ox 99 95 98 Oxygen Delivery Method Room Air Room Air 01/28/24 13:45 Temperature 97.8 F Temperature Source Axillary Pulse Rate 69 Respiratory Rate 14 Blood Pressure 115/52 L Blood Pressure Mean 73 Blood Pressure Source Monitor Pulse Ox 97 Oxygen Delivery Method Room Air Positive well nourished and well developed General Appearance ED: well developed, NAD and pallor HEENT Reports normocephalic, head/scalp atraumatic and moist mucous membranes Eyes PERRL and EOMs intact bilaterally General Eye ED: Yes pale conjunctiva Neck no lymphadenopathy, supple and no JVD Resp normal respiratory effort and clear to auscultation bilaterally Cardio regular rate, regular rhythm and no murmurs GI normal to inspection, nondistended, normoactive bowel sounds and non-tender GI Narrative: Colostomy present with slight herniation of the stoma. Tissue appears pink. There is liquid dark stool in the colostomy bag. It is Hemoccult positive Palpation: soft Back/Spine no CVA tenderness and normal ROM Extremity normal to inspection General Extremety ED: Negative for edema General Extremity: Negative for edema Neuro oriented x3 and CN's II-XII intact bilaterally Sensorium / Orientation: alert Motor Exam: strength 5/5 throughout Psych mental status grossly normal Mood & Affect: Negative for depressed or tearful Skin no rashes or lesions noted General Skin Exam: pallor MDM MDM MDM Narrative Medical decision making narrative: Differential diagnosis includes but not limited to anemia electrolyte abnormalities acute on chronic kidney disease While in the emergency department the patient's blood work that he had drawn this morning as an outpatient came back hemoglobin noted to be 5.5 platelet count of 245 reticulocyte count 1.75 BUN of 48 creatinine 3.98 with a GFR 16 glucose noted to be low at 62 oh. Patient was typed and crossed for 2 units. He received glucose IV. Plan will be admission History & Record Review Discussion w/independent historian: Patient and Family Lab Data Labs: Laboratory Results - last 24 hr 01/28/24 11:47 Blood Type A POSITIVE Antibody Screen NEGATIVE Crossmatch See Detail Management Discussion w/another healthcare provider: Hospitalist (Dr Nevarez) and Hasher Operator (Dr Carlson) Discharge Plan Dx/Rx/DC Orders Clinical Impression: Acute on chronic anemia, Anemia requiring transfusions, Chronic kidney disease (CKD) stage G4/A3, severely decreased glomerular filtration rate (GFR) between 15-29 mL/min/1.73 square meter and albuminuria creatinine ratio greater than 300 mg/g, Diabetic hypoglycemia Disposition Disposition: Acute Care Hospital [facility] Discharge Date/Time: 01/28/24 14:15
[2024-01-28] MEDS: Dextrose 10%-Water 250 ML 999 ML IV (12:49)
--- NOTE | 2024-01-28 13:09 | HP.PCM.HOS_ITS ---
[facility] - General General Date of Admission: 01/28/24 Date of Service: 01/28/24 HPI Narrative SVEN DUONG, is a 58 M with a PMH as outlined who presents via the ED on 01/28/2024 with a complaint of anemia. HE was sent to the ED from his oncologist's office on account of labs done which showed that he was anemic with hemoglobin of 5.5. Patient has had recurrent anemia for which she has had 2 EGDs and colonoscopies over the last month. His last colonoscopy was just on January 14, 2024 which did not show any evidence of bleeding. He also had EGD on January 14, 2024 which showed normal esophagus with no gross lesions in the fourth portion of the duodenum and normal jejunum. He was referred to oncology and states he just saw them today and was started on iron supplementation. He is still on aspirin and Plavix. He admits to feeling weak but denied any l ightheadedness or dizziness, palpitations, nausea vomiting or any other symptoms. Review of symptoms otherwise negative. Vitals in the ED were blood pressure of 124/58, pulse rate of 62, respiratory rate 16 and temperature of 97.3 Fahrenheit. Was saturating at 100% on room air. CBC done today showed hemoglobin of 5.5 with WBC of 5.6 and platelets of 245. Chemistry shows sodium of 138 with potassium of 3.8 and creatinine of 3.98. Iron level was low at 18 and iron saturation is only 8.5. He has been admitted to be managed for acute on chronic severe iron deficiency anemia. [facility] Medical History (Updated 01/28/24 @ 13:56 by Yolanda Crabtree) Chronic pain Congestive heart failure (CHF) Myocardial infarct Chest pain Anemia due to chronic renal failure treated with erythropoietin, stage 4 (severe) Iron deficiency anemia due to chronic blood loss Congestive heart failure Right sided numbness Dysphagia Renal failure (ARF), acute on chronic Gout Vitamin B12 deficiency anemia Hepatitis Hypotension Vitamin D deficiency Abdominal pain Wound, surgical, nonhealing Aftercare following surgery of the circulatory system Atherosclerosis of [place] arteries of extremities with rest pain, left leg Difficulty walking Wears glasses PVD (peripheral vascular disease) Gait instability TIA (transient ischemic attack) Syncope History of echocardiogram Cardiology follow-up encounter Pressure sore of left ischium, stage 3 Resistant hypertension Dyslipidemia Nicotine dependence Nonhealing skin ulcer Peripheral arterial disease Chronic kidney disease History of diverticulitis Acute kidney injury Arthritis Kidney disease Acute kidney injury superimposed on chronic kidney disease Diverticulitis Weight gain with edema DM type 2, goal HbA1c < 7.5% Malnutrition Ulcer of perineum with fat layer exposed Ulcer of scrotum Ulcer of right groin with fat layer exposed Shingles Shingles Post-operative pain Elevated serum creatinine Hemoglobin A1c greater than 8.0 percent Hypokalemia Open wound of scrotum with complication Open wound of buttock with complication Non-healing open wound of right groin Abscess, perineum Abscess of scrotal wall Abscess of right groin Complete edentulism, class III Alcohol use Diabetes Back pain History of ulceration Shortness of breath on exertion History of pain when walking History of edema Hidradenitis suppurativa of anus Suppurative hidradenitis Gastric ulcer Ulcer of perianal area with fat layer exposed Nausea and vomiting Proteinuria due to type 2 diabetes mellitus Lupus (systemic lupus erythematosus) Weakness Edema of both legs Acute post-operative pain 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 Chronic pain Hyperlipidemia Coronary artery disease Diabetes mellitus Chronic obstructive pulmonary disease Debility Colostomy in place Complicated open wound of left thigh Open wound of left buttock with complication Abscess of buttock, left Back pain due to injury History of stress test Smoker Coronary artery disease Abscess of left thigh Wound infection Cellulitis Ankle pain Ankle pain Iron deficiency anemia Ulcer of perineum with fat layer exposed Skin ulcer of scrotum Anemia of chronic disease Acute blood loss anemia Ulcer of left groin with fat layer exposed Open wound of scrotum Acute postoperative anemia due to expected blood loss Hidradenitis suppurativa of anus Hypertension Tobacco dependence syndrome Anemia Malnutrition Cough Pneumonia involving right lung Pain in the groin Hydradenitis Diabetes mellitus type 2, uncontrolled, with complications Hypertension Hyperlipidemia associated with type 2 diabetes mellitus Diabetes type 2, uncontrolled COPD (chronic obstructive pulmonary disease) Hydradenitis Home Medications ?Medication ?Instructions ?Recorded ?Last Taken ?Type guselkumab 100 mg/mL subcutaneous 100 mg subcut Q4W ARTHRITIS 04/23/22 09/26/22 History syringe (Jesus Alberto) carvedilol 25 mg tablet 25 mg PO BID #60 tabs 03/01/23 06/06/23 Rx nifedipine 90 mg tablet,extended 90 mg PO DAILY #90 tabs 05/08/23 12/25/23 Rx release 24 hr aspirin 81 mg tablet,delayed 81 mg PO DAILY 06/06/23 12/25/23 History release atorvastatin 80 mg tablet 80 mg PO QHS #30 tabs 12/14/23 12/25/23 Rx pantoprazole 40 mg tablet,delayed 40 mg PO BID #60 tabs 12/14/23 12/25/23 Rx release albuterol sulfate 90 mcg/actuation See Rx Instructions .Route 01/01/24 Unknown Rx aerosol inhaler .COMPLEX PRN shortness of breath or wheezing #8.5 grams furosemide 40 mg tablet (Lasix) 40 mg PO BIDCM #60 tabs 01/15/24 Unknown Rx clonidine HCl 0.1 mg tablet 0.05 mg (1/2 x 0.1 mg) PO BID 30 01/24/24 Unknown Rx days #30 tabs clopidogrel 75 mg tablet 75 mg PO DAILY #30 tabs 01/24/24 Unknown Rx dapagliflozin propanediol 10 mg 10 mg PO QAM 01/24/24 Unknown History tablet (Farxiga) Allergy/AdvReac Type Severity Reaction Status Date / Time Penicillins Allergy Unknown Verified 01/28/24 11:30 Sulfa (Sulfonamide Allergy Unknown Verified 01/28/24 11:30 Antibiotics) bupropion (From Wellbutrin) AdvReac Severe change in Verified 01/28/24 11:30 personality ,meanness and smoked more doxycycline AdvReac Severe Vomiting Verified 01/28/24 11:30 Family History Aunt Lung disease lung cancer Father Heart disease Hypertension Family history of high cholesterol Diabetes Mother Diabetes Daughter Epilepsy Surgical History Hx of vascular surgery History of excision of lesion History of incision and drainage History of coronary artery stent placement History of removal of cyst Hx of hernia repair History of tonsillectomy and adenoidectomy Social History household members: spouse Smoking Status: Current every day smoker tobacco type: cigarettes alcohol intake: never substance use type: does not use caffeine: Yes (7) Type: coffee additional social history: DOES NOT TAKE ASPIRIN DOES NOT TAKE IBUPROFEN ROS Constitutional Constitutional: Reports fatigue, malaise and weakness; Denies anorexia, chills or fever(s) ENT HEENT: Denies dysphagia, headache(s) or sore throat Cardiovascular Cardiovascular: Reports dyspnea on exertion; Denies chest pain, edema, lightheadedness, orthopnea, palpitations, paroxysmal nocturnal dyspnea, rapid heart rate or syncope Respiratory/Chest Respiratory/Chest: Denies cough, dyspnea, shortness of breath at rest or shortness of breath with exertion Gastrointestinal Gastrointestinal: Reports melena; Denies abdominal pain, coffee ground emesis, constipation, diarrhea, dyspepsia, hematemesis, hematochezia, loose stools, nausea or vomiting Genitourinary Genitourinary: Denies dysuria Musculoskeletal Musculoskeletal: Denies back pain or joint pain Neurologic Neurologic: Denies confusion, dizziness, focal weakness, headache(s), numbness, seizures or syncope Psychiatric Psychiatric: Denies anxiety Hematologic/Lymphatic Hematologic/Lymphatic: Reports anemia Vital Signs Vital Signs Vital Signs: 01/28/24 11:28 01/28/24 12:55 Temperature 98.1 F 98.3 F Temperature Source Temporal Pulse Rate 63 65 Respiratory Rate 20 H 16 Blood Pressure 110/43 L 125/56 H Blood Pressure Mean 65 79 Pulse Ox 99 95 Oxygen Delivery Method Room Air Weight Weight: 155 lb 10.342 oz Body Mass Index (BMI) 23.6 Physical Exam Const alert, oriented x3 and no apparent distress Constitutional Narrative: frail General Appearance: cooperative HEENT normocephalic, head/scalp atraumatic, moist oral mucous membranes and oropharynx normal Mouth: oral and palatal mucosa normal Eyes PERRL, EOMs intact bilaterally and conjunctivae normal Neck no lymphadenopathy and supple Resp normal respiratory effort, no retractions, no use of accessory muscles and clear to auscultation bilaterally Cardio regular rate, regular rhythm, S1 normal heart sound, S2 normal heart sound and no murmurs GI normal to inspection, nondistended, normoactive bowel sounds, soft to palpation, non-tender and non-distended GI Narrative: has a colostomy bag which contains melena like stool. Extremity normal to inspection, full ROM and no clubbing, cyanosis or edema Neuro oriented x3, CN's II-XII intact bilaterally, moves all extremities and no focal motor deficits Sensorium / Orientation: awake and alert Motor Exam: strength 5/5 throughout Psych affect normal Results Lab / Micro Data Labs: Laboratory Results - last 24 hr 01/28/24 11:47: Blood Type A POSITIVE, Antibody Screen NEGATIVE, Crossmatch See Detail Micro: Microbiology 01/28/24 11:50 Stool Stool Occult Blood (RODRIGUE) - Final Occult Blood Positive Assessment & Plan Assessment/Plan (1) Acute on chronic anemia: PLAN: Plan #Acute on chronic anemia * concerning for GI bleed. * Patient has had recurrent acute on chronic anemia and has required multiple transfusions. * He had EGD and colonoscopy on January 13 which did not really show any ev idence of bleeding. * He also had EGD on December 11, 2023 which showed severe erosive esophagitis which was treated with a heater probe * Hemoglobin today is 5.5. Transfused 2 units of packed red blood cells. * Hold aspirin and Plavix. Consult gastroenterology. * Patient will benefit from a capsule endoscopy but will defer to GI. * IV pantoprazole 40 mg twice daily. * #Recent CVA * On aspirin and Plavix which are on hold due to GI bleed. He had a stroke in December 2023. MRI showed no evidence of a stroke but neurology reviewed the patient and thought he did have a stroke on the MRI. * On high intensity statin. Resume aspirin and Plavix when okay with GI. #CAD s/p stents: Plavix on hold. On carvedilol and high intensity statin. Aspirin also on hold. #Peripheral artery disease s/p left SFA stent: This was done in March 2023. Aspirin and Plavix on hold due to GI bleed. On high intensity statin #CKD stage IV: Cr is 3.98 which is around his baseline. Will monitor. To follow up with nephrology on outpatient basis. #COPD: Not in exacerbation. Breathing treatments bronchodilators. #Hypertension: On nifedipine and carvedilol. IV hydralazine as needed #Type 2 diabetes mellitus: On insulin sliding scale. Accu-Cheks ACHS. DVT prophylaxis; SCDs CODE STATUS: Full code * Patient counseled extensively about different types of CODE STATUS including full code, DNR CCA and DNR CCA. * Patient elects to be full code. * Total [id number] time 16 minutes. Charges/Coding Visit Charges Inpatient E&M: 86069 Init Hosp L3 Procedures Hospitalists Procedures: 72462 Advncd Care Plan 30 Min
--- NOTE | 2024-01-28 16:52 | EX.PCM.CON.G ---
HPI Consult Data Date of Consult: 01/28/24 HPI Narrative Reason for Consultation: Anemia HPI Narrative: SVEN DUONG, is a 58 M who presents back to the hospital for evaluation for fatigue and weakness after being seen by [employer] oncologist Dr. Smith for diagnosis of anemia. He was discovered to have a hemoglobin of 5.5. I saw him during his last to admission for stroke, anemia and dysphagia. He presented to the ER 12/09 and was admitted 12/11 and discharged 12/13. While admitted the hospital performed a CT of the brain, MRI of the brain, and a head MRA. His MRI of the brain done 12/10 revealed: 1.No MRI evidence of acute or subacute ischemic infarct or acute intracranial abnormality. 2.Old ischemic infarct with cystic encephalomalacia and atrophy along the right lingual gyrus and to a lesser degree the right cuneus adjacent the right calcarine fissure. 3.Few chronic white matter ischemic changes in both cerebral hemispheres. The MRA of the head performed 12/11 revealed: Moderate stenosis supraclinoid ICA and the right. Occlusion right posterior cerebral artery. Possible occlusion distal left vertebral artery. The discharge plan included the following new medications: atorvastatin 80mg QHS, protonix 40mg BID, and hydralazine 50mg TID. He was on aspirin and Plavix. And his hemoglobin started to drift down. I saw him to rule out GI bleeding. His upper endoscopy revealed: Findings: The examined esophagus was normal. A small hiatal hernia was present. No other significant abnormalities were identified in a careful examination of the stomach. No gross lesions were noted in the fourth portion of the duodenum. The examined jejunum was normal. His colonoscopy revealed: Findings: The perianal and digital rectal examinations were normal. There was evidence of a prior end sigmoid colostomy in the sigmoid colon. This was non-patent and was characterized by healthy appearing mucosa. The anastomosis was not traversed. There was evidence of a patent but strictured end colostomy in the sigmoid colon. This was characterized by healthy appearing mucosa. Stool was found in the transverse colon, at the hepatic flexure, in the ascending colon, in the cecum, at the appendiceal orifice and at the ileocecal valve. Lavage of the area was performed, resulting in incomplete clearance with continued poor visualization. Large-mouthed diverticula were found in the sigmoid colon, ascending colon and cecum. In the ER today he notes his stool has been dark. He does have a history of anasarca but notes that he is not having any difficulty breathing today and is not on home oxygen. He has a history of nonhealing wounds and malnutrition as well as chronic kidney disease and has a colostomy. No reported syncope. He is on Plavix and aspirin and also takes pantoprazole. [facility] Medical History Chronic pain Congestive heart failure (CHF) Myocardial infarct Chest pain Anemia due to chronic renal failure treated with erythropoietin, stage 4 (severe) Iron deficiency anemia due to chronic blood loss Congestive heart failure Right sided numbness Dysphagia Renal failure (ARF), acute on chronic Gout Vitamin B12 deficiency anemia Hepatitis Hypotension Vitamin D deficiency Abdominal pain Wound, surgical, nonhealing Aftercare following surgery of the circulatory system Atherosclerosis of [place] arteries of extremities with rest pain, left leg Difficulty walking Wears glasses PVD (peripheral vascular disease) Gait instability TIA (transient ischemic attack) Syncope History of echocardiogram Cardiology follow-up encounter Pressure sore of left ischium, stage 3 Resistant hypertension Dyslipidemia Nicotine dependence Nonhealing skin ulcer Peripheral arterial disease Chronic kidney disease History of diverticulitis Acute kidney injury Arthritis Kidney disease Acute kidney injury superimposed on chronic kidney disease Diverticulitis Weight gain with edema DM type 2, goal HbA1c < 7.5% Malnutrition Ulcer of perineum with fat layer exposed Ulcer of scrotum Ulcer of right groin with fat layer exposed Shingles Shingles Post-operative pain Elevated serum creatinine Hemoglobin A1c greater than 8.0 percent Hypokalemia Open wound of scrotum with complication Open wound of buttock with complication Non-healing open wound of right groin Abscess, perineum Abscess of scrotal wall Abscess of right groin Complete edentulism, class III Alcohol use Diabetes Back pain History of ulceration Shortness of breath on exertion History of pain when walking History of edema Hidradenitis suppurativa of anus Suppurative hidradenitis Gastric ulcer Ulcer of perianal area with fat layer exposed Nausea and vomiting Proteinuria due to type 2 diabetes mellitus Lupus (systemic lupus erythematosus) Weakness Edema of both legs Acute post-operative pain 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 Chronic pain Hyperlipidemia Coronary artery disease Diabetes mellitus Chronic obstructive pulmonary disease Debility Colostomy in place Complicated open wound of left thigh Open wound of left buttock with complication Abscess of buttock, left Back pain due to injury History of stress test Smoker Coronary artery disease Abscess of left thigh Wound infection Cellulitis Ankle pain Ankle pain Iron deficiency anemia Ulcer of perineum with fat layer exposed Skin ulcer of scrotum Anemia of chronic disease Acute blood loss anemia Ulcer of left groin with fat layer exposed Open wound of scrotum Acute postoperative anemia due to expected blood loss Hidradenitis suppurativa of anus Hypertension Tobacco dependence syndrome Anemia Malnutrition Cough Pneumonia involving right lung Pain in the groin Hydradenitis Diabetes mellitus type 2, uncontrolled, with complications Hypertension Hyperlipidemia associated with type 2 diabetes mellitus Diabetes type 2, uncontrolled COPD (chronic obstructive pulmonary disease) Hydradenitis Home Medications ?Medication ?Instructions ?Recorded ?Last Taken ?Type guselkumab 100 mg/mL subcutaneous 100 mg subcut Q4W ARTHRITIS 04/23/22 09/26/22 History syringe (Tremfya) carvedilol 25 mg tablet 25 mg PO BID #60 tabs 03/01/23 06/06/23 Rx nifedipine 90 mg tablet,extended 90 mg PO DAILY #90 tabs 05/08/23 12/25/23 Rx release 24 hr aspirin 81 mg tablet,delayed 81 mg PO DAILY 06/06/23 12/25/23 History release atorvastatin 80 mg tablet 80 mg PO QHS #30 tabs 12/14/23 12/25/23 Rx pantoprazole 40 mg tablet,delayed 40 mg PO BID #60 tabs 12/14/23 12/25/23 Rx release albuterol sulfate 90 mcg/actuation See Rx Instructions .Route 01/01/24 Unknown Rx aerosol inhaler .COMPLEX PRN shortness of breath or wheezing #8.5 grams furosemide 40 mg tablet (Lasix) 40 mg PO BIDCM #60 tabs 01/15/24 Unknown Rx clonidine HCl 0.1 mg tablet 0.05 mg (1/2 x 0.1 mg) PO BID 30 01/24/24 Unknown Rx days #30 tabs clopidogrel 75 mg tablet 75 mg PO DAILY #30 tabs 01/24/24 Unknown Rx dapagliflozin propanediol 10 mg 10 mg PO QAM 01/24/24 Unknown History tablet (Farxiga) Allergy/AdvReac Type Severity Reaction Status Date / Time Penicillins Allergy Unknown Verified 01/28/24 11:30 Sulfa (Sulfonamide Allergy Unknown Verified 01/28/24 11:30 Antibiotics) bupropion (From Wellbutrin) AdvReac Severe change in Verified 01/28/24 11:30 personality ,meanness and smoked more doxycycline AdvReac Severe Vomiting Verified 01/28/24 11:30 Family History Aunt Lung disease lung cancer Father Heart disease Hypertension Family history of high cholesterol Diabetes Mother Diabetes Daughter Epilepsy Surgical History Hx of vascular surgery History of excision of lesion History of incision and drainage History of coronary artery stent placement History of removal of cyst Hx of hernia repair History of tonsillectomy and adenoidectomy Social History household members: spouse Smoking Status: Current every day smoker tobacco type: cigarettes alcohol intake: never substance use type: does not use caffeine: Yes (7) Type: coffee additional social history: DOES NOT TAKE ASPIRIN DOES NOT TAKE IBUPROFEN ROS Constitutional Constitutional: Denies fatigue, fever(s), poor appetite, weight gain or weight loss Gastrointestinal Gastrointestinal: Denies belching, bloating, change in bowel habits, change in stool character, chewing difficulty, coffee ground emesis, constipation, cramping, diarrhea, dyspepsia, dysphagia, early satiety, excessive flatus, fecal incontinence, heartburn, hematemesis, hematochezia, hemorrhoids, loose stools, melena, nausea, odynophagia, rectal bleeding, tenesmus, vomiting or weight changes Physical Exam Const alert, oriented x3 and no apparent distress Constitutional Narrative: frail General Appearance: cooperative HEENT normocephalic, head/scalp atraumatic, moist oral mucous membranes and oropharynx normal Mouth: oral and palatal mucosa normal Eyes PERRL, EOMs intact bilaterally and conjunctivae normal Neck no lymphadenopathy and supple Resp normal respiratory effort, no retractions, no use of accessory muscles and clear to auscultation bilaterally Cardio regular rate, regular rhythm, S1 normal heart sound, S2 normal heart sound and no murmurs GI normal to inspection, nondistended, normoactive bowel sounds, soft to palpation, non-tender and non-distended GI Narrative: has a colostomy bag which contains melena like stool. Extremity normal to inspection, full ROM and no clubbing, cyanosis or edema Neuro oriented x3, CN's II-XII intact bilaterally, moves all extremities and no focal motor deficits Sensorium / Orientation: awake and alert Motor Exam: strength 5/5 throughout Psych affect normal Lab / Micro Data Labs: Laboratory Results - last 24 hr 01/28/24 11:47: Blood Type A POSITIVE, Antibody Screen NEGATIVE, Crossmatch See Detail Micro: Microbiology 01/28/24 11:50 Stool Stool Occult Blood (RODRIGUE) - Final Occult Blood Positive Assessment & Plan Assessment/Plan (1) Acute on chronic blood loss anemia: (2) Recurrent gastrointestinal hemorrhage: PLAN: Plan Patient is a 58-year-old male who presented to [facility] ED on 01/28/2024 with worsening anemia presumed secondary to recurrent GI bleed. Acute on chronic anemia presumed secondary to recurrent upper GI bleed ? Hemoglobin 5.5 on admit, down from 7.1 on 01/22. Patient reporting melanotic stools in his colostomy bag. EGD on 12/10 showed grade D erosive esophagitis with active bleeding that was cauterized. EGD recently on 01/14/2024 did not reveal any abnormalities. However patient was continued on aspirin and Plavix due to recent peripheral stent placed in May as noted below. - IV Protonix bolus given in ED and will agree with IV PPI twice daily. Okay for clear liquids for now. Patient will get push enteroscopy while in hospital and capsule endoscopy as an outpatient as it cannot be done as an inpatient. Charges/Coding Visit Charges Inpatient E&M: 23409 Init Hosp L3
[2024-01-28 16:54] LABS: Bedside Glucose 145 mg/dL (74-106)
[2024-01-28] MEDS: Furosemide 40 MG Tablet PO (17:41)
[2024-01-28] MEDS: Pantoprazole Sodium 40 MG in 0.9% Normal Saline (100mL MB+) 100 ML 330 MG IV ×2 (18:18→21:23)
[2024-01-28] MEDS: 0.9% Normal Saline (1000mL) 1,000 ML 125 ML IV (18:18)
[2024-01-28] MEDS: Atorvastatin Calcium 80 MG Tablet PO (21:14)
[2024-01-28] MEDS: cloNIDine HCl 0.1 MG Tablet 0.05 MG PO (21:22)
[2024-01-28] MEDS: Carvedilol 25 MG Tablet PO (21:22)
--- NOTE | 2024-01-28 22:05 | NURSING ---
Notified Dr. Hensley of pt low BS @ 2114 52. 4 oz juice given.@ 2129 BS:54 4 oz juice given. @2144 BS: 82. Dr. Hensley called and gave telephone orders for D5NS to run @ 75ml/hr. and cancel NS orders as scheduled on APR.
[2024-01-28] MEDS: Dextrose 5%/0.9% NaCl 1,000 ML 75 ML IV (22:26)
[2024-01-28] MEDS: 0.9% Saline Lock 10 ML Syringe IV (22:27)
[2024-01-28 23:38] LABS: Bedside Glucose 52 mg/dL (74-106)
[2024-01-29] VITALS (11 sets, daily range): BP systolic 105–175; BP diastolic 48–68; PULSE 56–115; RESP 14–18; TEMP 36.3–37.3; O2SAT 93–99; BMI 23.3
[2024-01-29] MEDS: Dextrose 10%-Water 250 ML 999 ML IV (03:28)
[2024-01-29 04:03] LABS: Bedside Glucose 115 mg/dL (74-106)
[2024-01-29 04:03] LABS: Bedside Glucose 52 mg/dL (74-106)
--- NOTE | 2024-01-29 04:10 | NURSING ---
Addendum entered by Myah Drake 01/29/24 04:19: 0345 Blood sugar rechecked. results 115. Original Note: 0330 rounds done. vitals taken. pt NPO for EGD procedure in AM. rechecked blood sugars. resulted as 52. 125mls D10 given at 999. per protocol. when completed D5NS restarted at 75 ml/hr. Dr. Hensley notified.
--- NOTE | 2024-01-29 05:55 | EKG12_ITS ---
Test Reason : AM EKG Blood Pressure : */* mmHG Vent. Rate : 61 BPM Atrial Rate : 61 BPM P-R Int : 150 ms QRS Dur : 90 ms QT Int : 476 ms P-R-T Axes : 77 45 101 degrees QTcB Int : 479 ms Normal sinus rhythm Minimal voltage criteria for LVH, may be normal variant ( Sokolow-White ) Septal infarct (cited on or before 02-Oct-2022) T wave abnormality, consider lateral ischemia Abnormal ECG When compared with ECG of 12-Jan-2024 10:47, Non-specific change in ST segment in Lateral leads Confirmed by NOE RODRIGUEZ, STELLA ([id number]), desk editor GILLIAN GONCALVES ([id number]) on 01/30/2024 5:57:09 AM Referred By: HLAEY Confirmed By: STELLA LIU MD
[2024-01-29 06:27] LABS: Absolute Lymphocyte Count 1.26 X10^3/uL (0.83-4.51); Absolute Neutrophil Count 3.7 X10^3/uL (2.0-7.7); Basophil# 0.02 X10^3/uL; Basophil% 0.4 % (0-1); Eosinophil# 0.06 X10^3/uL; Eosinophils% 1.1 % (0-5); Hematocrit 21.7 % (40-54); Hemoglobin 7.1 g/dL (13.0-16.5); Lymphocyte # 1.26 X10^3/ul (0.83-4.51); Lymphocyte % 22.6 % (19-41); Mean Corp Hgb Conc 32.7 g/dL (32-36); Mean Corpuscular Hgb 28.7 pg (27.0-32.0); Mean Corpuscular Volume 87.9 fL (80-94); Mean Platelet Vol. 9.4 fl (6.2-12.0); Monocyte# 0.51 X10^3/uL; Monocyte% 9.2 % (0-10); NRBC Flagged by Analyzer 0 % (0-5); Neutrophil # 3.68 X10^3/uL (2.7-7.7); Platelet Count 214 K/mm3 (150-450); RBC Distribution Width CV 15.2 % (11.6-14.6); RBC Distribution Width SD 49.1 fl (35.1-43.9); Red Blood Count 2.47 M/mm3 (4.6-6.2); White Blood Count 5.6 K/mm3 (4.4-11.0)
[2024-01-29 06:37] LABS: International Normalized Ratio 1.1; Prothrombin Time (Protime)PT. 13.7 SECONDS (11.7-14.9)
[2024-01-29 06:38] LABS: Partial Thromboplast Time 34.8 Seconds (24.1-36.2)
[2024-01-29 06:48] LABS: Anion Gap 5 (5-15); BUN 47 mg/dL (7-18); BUN/Creat Ratio 12.9 RATIO (10-20); Calcium,Total 8.2 mg/dL (8.5-10.1); Chloride 111 mmol/L (98-107); Creatinine, Serum 3.64 mg/dL (0.70-1.30); EST Glomerular Filtration Rate 18 mL/min (>60); Est Glom Filt Rate - Afr Amer 22 mL/min (>60); Estimated Creatinine Clearance 20.88 ml/min; Glucose 63 mg/dL (74-106); Potassium 3.9 mmol/L (3.5-5.1); Sodium Level 138 mmol/L (136-145)
--- NOTE | 2024-01-29 06:48 | NURSING ---
Blood sugar checked this am @0610. results were 57. per protocol D10 125mls given @999. D5NS resumed after D10 given. this RN rechecked BS at 0635. Results were 113. Dr. Hensley notified.
[2024-01-29 07:02] LABS: Bedside Glucose 57 mg/dL (74-106)
[2024-01-29 07:02] LABS: Bedside Glucose 119 mg/dL (74-106)
--- NOTE | 2024-01-29 08:34 | WOUNDNOTE ---
assessed the colostomy appliance. there is some stool noted on the flange. removed the appliance. patient does have a peristomal hernia. pt denies pain. stoma is pink and very well budded slightly prolapsed. peristomal skin is intact. cleansed with warm water. pat dry. applied a new 2 piece flat [place] appliance with a small amount of stoma paste. pt tolerated well. pt denies further needs at this time.
--- NOTE | 2024-01-29 09:06 | CASEMGMT ---
Discharge Planning Updates sent to [facility]. Jayshree Naranjo DC Planning Asst.
[2024-01-29] MEDS: Pantoprazole Sodium 40 MG in 0.9% Normal Saline (100mL MB+) 100 ML 330 MG IV ×2 (09:27→22:13)
--- NOTE | 2024-01-29 09:56 | WOUNDNOTE ---
wound photo: left gluteal fold
[2024-01-29 11:47] LABS: Bedside Glucose 47 mg/dL (74-106)
--- NOTE | 2024-01-29 11:52 | NURSING ---
Called Leonor in PACU pt is going down for a EGD and his blood sugar was 47. He is on D5NS 75ml/hr. However his bag is about to run out since I talked with Dr. Nevarez to make her aware of blood sugar she increased the D5NS to 100ml/hr. I did send a text for her to get another bag since this order is done once the bag will be finished up in next few minutes. Nurse made aware of situation and informed her that he will need his sugar rechecked again down in procedure holding area.
--- NOTE | 2024-01-29 12:14 | PRE.ANES_ITS ---
ASA Classification* ASA Classification ASA Classification: 4 Assessment & Plan Anesthesia* Anesthesia Assessment Anesthesia Assessment: Discussed sedation and/or anesthesia options, risks, benefits, and alternatives with patient/parents/legal guardian/POA. Questions invited. The patient/parents/legal guardian/POA seems to understand and agrees to proceed with anesthesia plan. Reviewed the physical assessment, medical history, allergy history and patient home medications list prior to surgery/procedure/anesthetic and documented any changes. Performed airway and anesthesia risk assessments. Anesthesia Type Anesthesia Type: MAC Anesthesia Focused Assessment* Temperature: 97.8 F Pulse Rate: 62 Blood Pressure: 157/55 Respiratory Rate: 18 Pulse Ox: 95 Airway Assessment Mouth opens: >3 cm Mallampati Score: II Focused Labs Anesthesia Preop lab: CBC WBC 5.6 K/mm3 (4.4-11.0) 01/29/24 06:02 RBC 2.47 M/mm3 (4.6-6.2) L 01/29/24 06:02 Hgb 7.1 g/dL (13.0-16.5) L 01/29/24 06:02 Hct 21.7 % (40-54) L 01/29/24 06:02 Plt Count 214 K/mm3 (150-450) 01/29/24 06:02 CHEMISTRY Potassium 3.9 mmol/L (3.5-5.1) 01/29/24 06:02 Sodium 138 mmol/L (136-145) 01/29/24 06:02 Magnesium 1.9 mg/dL (1.6-2.6) 01/24/24 17:00 Phosphorus 5.4 mg/dL (2.5-4.9) H 01/12/24 10:45 BUN 47 mg/dL (7-18) H 01/29/24 06:02 Creatinine 3.64 mg/dL (0.70-1.30) H 01/29/24 06:02 Glucose 63 mg/dL (74-106) L 01/29/24 06:02 POC Glucose 47 mg/dL (74-106) L 01/29/24 11:22 TSH 1.660 uIU/mL (0.358-3.740) 01/24/24 17:00 COAG PT 13.7 SECONDS (11.7-14.9) 01/29/24 06:02 Pre-Assessment Diagnosis/Proposed Procedure Planned Operative Procedure(s): EGD Anesthesia History Anesthesia History - therapy administrative assistant: Anesthesia History - therapy administrative assistant Hx Hospitalization Yes 06/21/23 15:35 Any Problems With Anesthesia No 01/29/24 01:24 Cholinesterase deficiency No 01/29/24 01:24 You/Your Family Experience No 01/29/24 01:24 fever (hyperthermia) with Relationship Recent Exposure to Contagious No 01/29/24 01:24 Disease Does patient have nerve No 01/29/24 01:24 stimulator Patient instructed to have device shut off --Does patient have Pacemaker or ICD? When Was Last Pacemaker Check QUESTION #4 FULL TEXT: You/Your Family Experience fever (hyperthermia) with Anesthesia Last Oral Intake Last Oral intake: Last Oral Intake NPO since 00:00 01/29/24 01:24 Meds taken in AM with sips of No 01/29/24 01:24 water? 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 - therapy administrative assistant: PONV - therapy administrative assistant Female HX of Motion Sickness HX of N/V After Surgery Non-Smoker Duration of Surgery greater than 60 minutes Number of Risk Factors PONV Score Height & Weight Height & Weight: Anesthesia: Height & Weight Height 5 ft 8 in 01/29/24 01:24 Weight: 69.7 kg 01/29/24 01:24 Body Mass Index (BMI) 23.3 01/29/24 01:24 Respiratory Assessment Respiratory Assessment - therapy administrative assistant: Respiratory Tract Infection Hx - therapy administrative assistant Hx Respiratory Tract Infection No 01/29/24 01:24 STOP Sleep Apnea STOP Sleep Apnea - therapy administrative assistant: STOP Sleep Apnea - therapy administrative assistant Hx Hypertension Yes 01/28/24 14:31 Hx Sleep Apnea No 01/28/24 14:31 CPAP No 01/14/24 23:50 BIPAP No 01/12/24 15:19 Do you snore loudly (louder Yes 01/28/24 14:31 than talking or can be heard Do you often feel tired/ Yes 01/28/24 14:31 fatigued/ sleepy during daytime? Has anyone observed you stop No 01/28/24 14:31 breathing during sleep? STOP Results Positive 01/28/24 14:31 QUESTION #5 FULL TEXT : Do you snore loudly (louder than talking or can be heard through closed doors)? 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 Specify any problems Hx of Preganancy in last 3 N/A 01/28/24 14:31 Months Nurse Filling Out Transfusion FSTEINER 01/28/24 14:31 & Questions: Date: 01/28/24 01/28/24 14:31 Time: 14:33 01/28/24 14:31 Patient unable to answer at this time (ie. confused, unrespo /Reproduction History /Reproductive History - therapy administrative assistant: /Reproductive Hx- therapy administrative assistant Hx Now No 01/29/24 01:24 Gestational Age (in weeks): EDC: Hx Hx Para Hx Section SAB No 01/29/24 01:24 Active Medications Active Medications: Current Medications Generic Name Dose Route Start Last Admin Trade Name Freq PRN Reason Stop Dose Admin Acetaminophen 650 mg 01/28/24 15:58 Acetaminophen 325 Mg Tablet PO Q6H PRN PRN Pain 1-10 Or Fever >100.7 Albuterol Sulfate 2.5 mg 01/28/24 14:54 Albuterol 2.5 Mg/3 Ml Vial.Neb. INHALATION Q4H PRN shortness of breath or wheezing Atorvastatin Calcium 80 mg 01/28/24 22:00 01/28/24 21:14 Atorvastatin Calcium 80 Mg Tablet PO 80 mg QHS MAE Administration Carvedilol 25 mg 01/28/24 22:00 01/29/24 07:37 Carvedilol 25 Mg Tablet PO Not Given BID MAE Protocol Clonidine 0.05 mg 01/28/24 22:00 01/29/24 07:37 Clonidine Hcl 0.1 Mg Tablet PO Not Given BID [facility] Protocol Empagliflozin 10 mg 01/29/24 10:00 01/29/24 07:37 Empagliflozin 10 Mg Tablet PO Not Given QAM MAE Furosemide 40 mg 01/28/24 17:00 01/29/24 08:30 Furosemide 40 Mg Tablet PO Not Given BIDCM [facility] Protocol Glucagon 1 mg 01/28/24 16:18 Glucagon 1 Mg/Ml Syringe IM X1 PRN Hypoglycemia Protocol Sodium Chloride 100 mls @ 15 mls/hr 01/28/24 14:35 IV .Q6H40M PRN SALINE FLUSH Sodium Chloride 100 mls @ 15 mls/hr 01/28/24 14:35 IV .Q6H40M PRN Saline Flush Sodium Chloride 100 mls @ 15 mls/hr 01/28/24 14:35 IV .Q6H40M PRN Additional IVPB Infusion Pantoprazole Sodium 40 mg/ 110 mls @ 330 mls/hr 01/28/24 16:00 01/29/24 10:14 Sodium Chloride IV Infused Q12 MAE Infusion Dextrose 250 mls @ 0 mls/hr 01/28/24 16:18 01/29/24 06:36 Dextrose 10%-Water IV Infused .Q0M PRN Infusion HYPOGLYCEMIA Protocol As Directed Insulin Human Lispro 0 unit 01/28/24 22:00 01/29/24 11:35 Insulin Lispro 100 Unit/Ml Insuln.Pen SC Not Given ACHS [facility] Protocol Nifedipine 90 mg 01/29/24 10:00 01/29/24 07:37 Nifedipine 90 Mg Tablet PO Not Given DAILY [facility] Nitroglycerin 0.4 mg 01/28/24 15:58 Nitroglycerin (Inpatient Use) 0.4 Mg Tab.Subl SL Q5M PRN CARDIAC/CHEST PAIN Ondansetron HCl 4 mg 01/28/24 15:58 Ondansetron 4 Mg/2 Ml Vial IV Q8H PRN PRN NAUSEA/VOMITING Oxycodone HCl 5 mg 01/28/24 15:58 Oxycodone 5 Mg Tablet PO Q4H PRN PRN Pain Score 4-10 Sodium Chloride 10 - 40 ml 01/28/24 14:35 01/28/24 22:27 0.9% Saline Lock 10 Ml Syringe IV 10 ml UD PRN Administration SALINE FLUSH [facility] Medical History Chronic pain Congestive heart failure (CHF) Myocardial infarct Chest pain Anemia due to chronic renal failure treated with erythropoietin, stage 4 (severe) Iron deficiency anemia due to chronic blood loss Congestive heart failure Right sided numbness Dysphagia Renal failure (ARF), acute on chronic Gout Vitamin B12 deficiency anemia Hepatitis Hypotension Vitamin D deficiency Abdominal pain Wound, surgical, nonhealing Aftercare following surgery of the circulatory system Atherosclerosis of [place] arteries of extremities with rest pain, left leg Difficulty walking Wears glasses PVD (peripheral vascular disease) Gait instability TIA (transient ischemic attack) Syncope History of echocardiogram Cardiology follow-up encounter Pressure sore of left ischium, stage 3 Resistant hypertension Dyslipidemia Nicotine dependence Nonhealing skin ulcer Peripheral arterial disease Chronic kidney disease History of diverticulitis Acute kidney injury Arthritis Kidney disease Acute kidney injury superimposed on chronic kidney disease Diverticulitis Weight gain with edema DM type 2, goal HbA1c < 7.5% Malnutrition Ulcer of perineum with fat layer exposed Ulcer of scrotum Ulcer of right groin with fat layer exposed Shingles Shingles Post-operative pain Elevated serum creatinine Hemoglobin A1c greater than 8.0 percent Hypokalemia Open wound of scrotum with complication Open wound of buttock with complication Non-healing open wound of right groin Abscess, perineum Abscess of scrotal wall Abscess of right groin Complete edentulism, class III Alcohol use Diabetes Back pain History of ulceration Shortness of breath on exertion History of pain when walking History of edema Hidradenitis suppurativa of anus Suppurative hidradenitis Gastric ulcer Ulcer of perianal area with fat layer exposed Nausea and vomiting Proteinuria due to type 2 diabetes mellitus Lupus (systemic lupus erythematosus) Weakness Edema of both legs Acute post-operative pain 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 Chronic pain Hyperlipidemia Coronary artery disease Diabetes mellitus Chronic obstructive pulmonary disease Debility Colostomy in place Complicated open wound of left thigh Open wound of left buttock with complication Abscess of buttock, left Back pain due to injury History of stress test Smoker Coronary artery disease Abscess of left thigh Wound infection Cellulitis Ankle pain Ankle pain Iron deficiency anemia Ulcer of perineum with fat layer exposed Skin ulcer of scrotum Anemia of chronic disease Acute blood loss anemia Ulcer of left groin with fat layer exposed Open wound of scrotum Acute postoperative anemia due to expected blood loss Hidradenitis suppurativa of anus Hypertension Tobacco dependence syndrome Anemia Malnutrition Cough Pneumonia involving right lung Pain in the groin Hydradenitis Diabetes mellitus type 2, uncontrolled, with complications Hypertension Hyperlipidemia associated with type 2 diabetes mellitus Diabetes type 2, uncontrolled COPD (chronic obstructive pulmonary disease) Hydradenitis Home Medications ?Medication ?Instructions ?Recorded ?Last Taken ?Type guselkumab 100 mg/mL subcutaneous 100 mg subcut Q4W ARTHRITIS 04/23/22 09/26/22 History syringe (Tremfya) carvedilol 25 mg tablet 25 mg PO BID #60 tabs 03/01/23 06/06/23 Rx nifedipine 90 mg tablet,extended 90 mg PO DAILY #90 tabs 05/08/23 12/25/23 Rx release 24 hr aspirin 81 mg tablet,delayed 81 mg PO DAILY 06/06/23 12/25/23 History release atorvastatin 80 mg tablet 80 mg PO QHS #30 tabs 12/14/23 12/25/23 Rx pantoprazole 40 mg tablet,delayed 40 mg PO BID #60 tabs 12/14/23 12/25/23 Rx release albuterol sulfate 90 mcg/actuation See Rx Instructions .Route 01/01/24 Unknown Rx aerosol inhaler .COMPLEX PRN shortness of breath or wheezing #8.5 grams furosemide 40 mg tablet (Lasix) 40 mg PO BIDCM #60 tabs 01/15/24 Unknown Rx clonidine HCl 0.1 mg tablet 0.05 mg (1/2 x 0.1 mg) PO BID 30 01/24/24 Unknown Rx days #30 tabs clopidogrel 75 mg tablet 75 mg PO DAILY #30 tabs 01/24/24 Unknown Rx dapagliflozin propanediol 10 mg 10 mg PO QAM 01/24/24 Unknown History tablet (Farxiga) Allergy/AdvReac Type Severity Reaction Status Date / Time Penicillins Allergy Unknown Verified 01/28/24 11:30 Sulfa (Sulfonamide Allergy Unknown Verified 01/28/24 11:30 Antibiotics) bupropion (From Wellbutrin) AdvReac Severe change in Verified 01/28/24 11:30 personality ,meanness and smoked more doxycycline AdvReac Severe Vomiting Verified 01/28/24 11:30 Family History Aunt Lung disease lung cancer Father Heart disease Hypertension Family history of high cholesterol Diabetes Mother Diabetes Daughter Epilepsy Surgical History Hx of vascular surgery History of excision of lesion History of incision and drainage History of coronary artery stent placement History of removal of cyst Hx of hernia repair History of tonsillectomy and adenoidectomy Social History household members: spouse Smoking Status: Current every day smoker tobacco type: cigarettes alcohol intake: never substance use type: does not use caffeine: Yes (7) Type: coffee additional social history: DOES NOT TAKE ASPIRIN DOES NOT TAKE IBUPROFEN Review of Systems (Anesthesia) ROS Narrative System reviewed and no additional complaints, except as documented.
[2024-01-29 12:24] LABS: Bedside Glucose 41 mg/dL (74-106)
--- NOTE | 2024-01-29 12:24 | PN_ITS ---
Subjective Subjective Patient seen and examined. He had no active complaints. Review of systems is otherwise negative. He was transfused with 2 units of PRBCs. GI on board. He is for EGD with push enteroscopy today. Hb today is 7.1. Objective Data Objective Data Vital Signs: Vital Signs Temp Pulse Resp BP Pulse Ox O2 Del Method 97.8 F 62 18 157/55 H 95 Room Air 01/29/24 12:17 01/29/24 12:17 01/29/24 12:17 01/29/24 12:17 01/29/24 12:17 01/29/24 08:24 Oxygen Delivery Method Room Air Weight: 153 lb 10.595 oz Body Mass Index (BMI) 23.3 Intake & Output: Intake and Output for Last 24 Hours 01/27/24 01/28/24 01/29/24 23:59 23:59 23:59 Intake Total 1823.08 / 1823.08 1327.50 / 1327.50 Output Total 150 / 750 2550 / 2550 Balance 1673.08 / 1073.08 -1222.50 / -1222.50 Lab / Micro Data 01/29/24 06:02 01/29/24 06:02 Labs: Laboratory Results - last 24 hr 01/28/24 11:47: Blood Type A POSITIVE, Antibody Screen NEGATIVE, Crossmatch See Detail 01/28/24 16:36: POC Glucose 145 H 01/28/24 21:10: POC Glucose 52 L 01/29/24 03:11: POC Glucose 52 L 01/29/24 03:41: POC Glucose 115 H 01/29/24 06:02: WBC 5.6, RBC 2.47 L, Hgb 7.1 L, Hct 21.7 L, MCV 87.9, MCH 28.7, MCHC 32.7, RDW Std Deviation 49.1 H, RDW Coeff of Dana 15.2 H, Plt Count 214, MPV 9.4, Immature Gran % (Auto) 0.700, Neut % (Auto) 66.0, Lymph % (Auto) 22.6, [place] % (Auto) 9.2, Eos % (Auto) 1.1, Baso % (Auto) 0.4, Absolute Neuts (auto) 3.7, Absolute Lymphs (auto) 1.26, Nucleated RBC % 0, PT 13.7, INR 1.1, APTT 34.8, Sodium 138, Potassium 3.9, Chloride 111 H, Carbon Dioxide 22.0, Anion Gap 5, BUN 47 H, Creatinine 3.64 H, Estim Creat Clear Calc 20.88, Est GFR (MDRD) Af Amer 22 L, Est GFR (MDRD) Non-Af 18 L, BUN/Creatinine Ratio 12.9, Glucose 63 L, Calcium 8.2 L 01/29/24 06:13: POC Glucose 57 L 01/29/24 06:39: POC Glucose 119 H 01/29/24 11:22: POC Glucose 47 L Micro: Microbiology 01/28/24 11:50 Stool Stool Occult Blood (RODRIGUE) - Final Occult Blood Positive Physical Exam Const alert, oriented x3 and no apparent distress Constitutional Narrative: frail General Appearance: cooperative HEENT normocephalic, head/scalp atraumatic, moist oral mucous membranes and oropharynx normal Eyes PERRL, EOMs intact bilaterally and conjunctivae normal Neck no lymphadenopathy and supple Resp normal respiratory effort, no retractions, no use of accessory muscles and clear to auscultation bilaterally Cardio regular rate, regular rhythm, S1 normal heart sound, S2 normal heart sound and no murmurs GI normal to inspection, nondistended, normoactive bowel sounds, soft to palpation, non-tender and non-distended GI Narrative: has a colostomy bag in situ Extremity normal to inspection, full ROM, normal capillary refill and no clubbing, cyanosis or edema General Extremity: no tenderness to palpation of joints or extremities Skin General Skin Exam: no breakdown Neuro oriented x3, CN's II-XII intact bilaterally, moves all extremities and no focal motor deficits Sensorium / Orientation: awake and alert Motor Exam: strength 5/5 throughout Psych affect normal Appearance: appropriate Assessment & Plan Assessment/Plan (1) Acute on chronic anemia: PLAN: Plan #Acute on chronic anemia * concerning for GI bleed. * Patient has had recurrent acute on chronic anemia and has required multiple transfusions. * He had EGD and colonoscopy on January 13 which did not really show any evidence of bleeding. * He also had EGD on December 11, 2023 which showed severe erosive esophagitis which was treated with a heater probe * Hb was 5.5. on admission. S/p transfusion of 2 units of PRBCs. * Hb today is 7.1. * Hold aspirin and Plavix. * GI on baord. for EGD and push enteroscopy today * Patient will benefit from a capsule endoscopy but will defer to GI. * IV pantoprazole 40 mg twice daily. * #Recent CVA * On aspirin and Plavix which are on hold due to GI bleed. He had a stroke in December 2023. MRI showed no evidence of a stroke but neurology reviewed the patient and thought he did have a stroke on the MRI. * On high intensity statin. Resume aspirin and Plavix when okay with GI. #CAD s/p stents: Plavix on hold. On carvedilol and high intensity statin. Aspirin also on hold. #Peripheral artery disease s/p left SFA stent: This was done in March 2023. Aspirin and Plavix on hold due to GI bleed. On high intensity statin #CKD stage IV: Cr is 3.64 today which is around his baseline. Will monitor. To follow up with nephrology on outpatient basis. #COPD: Not in exacerbation. Breathing treatments bronchodilators. #Hypertension: On nifedipine and carvedilol. IV hydralazine as needed #Type 2 diabetes mellitus: On insulin sliding scale. Accu-Cheks ACHS. DVT prophylaxis; SCDs CODE STATUS: Full code * Charges/Coding Visit Charges Inpatient E&M: 81059 Subs Hosp L2
[2024-01-29] MEDS: Dextrose 5%/0.9% NaCl 1,000 ML 15 ML IV (12:49)
[2024-01-29 13:04] LABS: Bedside Glucose 114 mg/dL (74-106)
[2024-01-29 13:04] LABS: Bedside Glucose 71 mg/dL (74-106)
--- NOTE | 2024-01-29 13:15 | EX.PCM.PN.GI ---
Subjective Subjective The patient's hemoglobin is up to 7.1 after 2 units of packed red blood cells. His previous hemoglobin was 5.5. He is for an upper endoscopy today due to persistent anemia suspected from small bowel GI bleeding. Objective Data Objective Data Vital Signs: Vital Signs Temp Pulse Resp BP Pulse Ox O2 Del Method 97.8 F 62 18 157/55 H 95 Room Air 01/29/24 12:17 01/29/24 12:17 01/29/24 12:17 01/29/24 12:17 01/29/24 12:17 01/29/24 08:24 Oxygen Delivery Method Room Air Weight: 153 lb 10.595 oz Body Mass Index (BMI) 23.3 Intake & Output: Intake and Output for Last 24 Hours 01/27/24 01/28/24 01/29/24 23:59 23:59 23:59 Intake Total 1823.08 / 1823.08 1327.50 / 1327.50 Output Total 150 / 750 2550 / 2550 Balance 1673.08 / 1073.08 -1222.50 / -1222.50 Lab / Micro Data 01/29/24 06:02 01/29/24 06:02 Labs: Laboratory Results - last 24 hr 01/28/24 11:47: Blood Type A POSITIVE, Antibody Screen NEGATIVE, Crossmatch See Detail 01/28/24 16:36: POC Glucose 145 H 01/28/24 21:10: POC Glucose 52 L 01/29/24 03:11: POC Glucose 52 L 01/29/24 03:41: POC Glucose 115 H 01/29/24 06:02: WBC 5.6, RBC 2.47 L, Hgb 7.1 L, Hct 21.7 L, MCV 87.9, MCH 28.7, MCHC 32.7, RDW Std Deviation 49.1 H, RDW Coeff of Dana 15.2 H, Plt Count 214, MPV 9.4, Immature Gran % (Auto) 0.700, Neut % (Auto) 66.0, Lymph % (Auto) 22.6, [place] % (Auto) 9.2, Eos % (Auto) 1.1, Baso % (Auto) 0.4, Absolute Neuts (auto) 3.7, Absolute Lymphs (auto) 1.26, Nucleated RBC % 0, PT 13.7, INR 1.1, APTT 34.8, Sodium 138, Potassium 3.9, Chloride 111 H, Carbon Dioxide 22.0, Anion Gap 5, BUN 47 H, Creatinine 3.64 H, Estim Creat Clear Calc 20.88, Est GFR (MDRD) Af Amer 22 L, Est GFR (MDRD) Non-Af 18 L, BUN/Creatinine Ratio 12.9, Glucose 63 L, Calcium 8.2 L 01/29/24 06:13: POC Glucose 57 L 01/29/24 06:39: POC Glucose 119 H 01/29/24 11:22: POC Glucose 47 L 01/29/24 12:06: POC Glucose 41 L* 01/29/24 12:23: POC Glucose 114 H 01/29/24 12:44: POC Glucose 71 L Micro: Microbiology 01/28/24 11:50 Stool Stool Occult Blood (RODRIGUE) - Final Occult Blood Positive Physical Exam Const alert, oriented x3 and no apparent distress Constitutional Narrative: frail General Appearance: cooperative HEENT normocephalic, head/scalp atraumatic, moist oral mucous membranes and oropharynx normal Eyes PERRL, EOMs intact bilaterally and conjunctivae normal Neck no lymphadenopathy and supple Resp normal respiratory effort, no retractions, no use of accessory muscles and clear to auscultation bilaterally Cardio regular rate, regular rhythm, S1 normal heart sound, S2 normal heart sound and no murmurs GI normal to inspection, nondistended, normoactive bowel sounds, soft to palpation, non-tender and non-distended GI Narrative: has a colostomy bag in situ Extremity normal to inspection, full ROM, normal capillary refill and no clubbing, cyanosis or edema General Extremity: no tenderness to palpation of joints or extremities Skin General Skin Exam: no breakdown Neuro oriented x3, CN's II-XII intact bilaterally, moves all extremities and no focal motor deficits Sensorium / Orientation: awake and alert Motor Exam: strength 5/5 throughout Psych affect normal Appearance: appropriate Assessment & Plan Assessment/Plan (1) Acute on chronic blood loss anemia: (2) Recurrent gastrointestinal hemorrhage: PLAN: Plan Patient is a 58-year-old male who presented to [facility] ED on 01/28/2024 with worsening anemia presumed secondary to recurrent GI bleed. Acute on chronic anemia presumed secondary to recurrent upper GI bleed ? Hemoglobin 5.5 on admit, down from 7.1 on 01/22. Patient reporting melanotic stools in his colostomy bag. EGD on 12/10 showed grade D erosive esophagitis with active bleeding that was cauterized. EGD recently on 01/14/2024 did not reveal any abnormalities. However patient was continued on aspirin and Plavix due to recent peripheral stent placed in May as noted below. - IV Protonix bolus given in ED and will agree with IV PPI twice daily. Okay for clear liquids for now. Patient will get push enteroscopy while in hospital and capsule endoscopy as an outpatient as it cannot be done as an inpatient. Charges/Coding Visit Charges Inpatient E&M: 04890 Subs Hosp L3
[2024-01-29 13:19] LABS: Bedside Glucose 73 mg/dL (74-106)
--- NOTE | 2024-01-29 14:09 | PCM.POST.ANE ---
Anesthesia: Postop Eval I Current Vital Signs Temperature: 97.8 F Pulse Rate: 65 Blood Pressure: 144/48 Respiratory Rate: 14 Pulse Ox: 96 Oxygen Delivery Method: Room Air Assessment Airway patent: Yes Spontaneous unlabored respirations: Yes Mental status: Asleep nausea: No Vomiting: No Anesthesia Complication: No Fluid Hydration Crystalloid volume administer (ml): 60 Total IV fluid infused: 60 Progress Note Anesthesia document: Postop Eval 1 completed: Yes
[2024-01-29 14:30] LABS: Bedside Glucose 61 mg/dL (74-106)
--- NOTE | 2024-01-29 15:42 | CASEMGMT ---
SOLANGE NATARAJAN chart review: Patient was admitted 12/11-12/13 for severe anemia, occult bleed, then 12/25-01/01/24 for recurrent GI Bleed, and again 01/11-01/15/24 for heart failure and ABLA with recurrent GI Bleed. See assessment from 12/13/23. Patient was discharged most recently to home with HHC setup with [facility]. Patient returned to [facility] ED on 01/28/24 after attending hematology appointment and getting labs drawn with hgb of 5.5. Patient was admitted and received 2 units of PRBC. GI consulted and patient has EGD today. Per the chart, patient attending PCP appt on 01/23 and Hematology appt on 01/27. Patient has another PCP appt on 01/30, Friend appt on 02/05, and hematology 02/03. SOLANGE NATARAJAN in to discuss readmission and discharge planning with patient, at bedside. Patient is sleeping. SOLANGE NATARAJAN spoke with . Per , GI found another tear in his small intestine and treated it, no operative report in chart at this time. states that patient had attended all his appt and is aware of scheduled appointments as well. states that she sets up pill information systems planner for patient. states that HHC had been out to see patient and they were establishing a schedule. states they would like to resume HHC with [facility]. states that Dr. Carlson states patient will stay for a couple day to monitor blood levels and was working with his office to get approval for endoscopy pill camera. Dr. Carlson stated that they will coordinate on day of discharge for patient to come to his office after discharge for pill camera. had no further questions or concerns at this time. Patient to discharge home with resumption of HHC and family support. CM will continue to follow this patient and plan for a safe discharge.
--- NOTE | 2024-01-29 16:13 | OP.EGD_ITS ---
Patient Name: Ranulfo Santos Procedure Date: 01/29/2024 1:24 PM Date of : 1965 Age: 58 Procedure: Upper GI endoscopy Indications: Iron deficiency anemia, Recent gastrointestinal bleeding Providers: Ed Carlson DO Medicines: Monitored Anesthesia Care Patient Profile: This is a 58 year old male. Refer to note in patient chart for documentation of history and physical. Complications: No immediate complications. Procedure: Pre-Anesthesia Assessment: - Prior to the procedure, a History and Physical was performed, and patient medications and allergies were reviewed. The patient is competent. The risks and benefits of the procedure and the sedation options and risks were discussed with the patient. All questions were answered and informed consent was obtained. Patient identification and proposed procedure were verified by the physician in the pre-procedure area. Mental Status Examination: alert and oriented. Airway Examination: normal oropharyngeal airway and neck mobility. Respiratory Examination: clear to auscultation. CV Examination: normal. Prophylactic Antibiotics: The patient does not require prophylactic antibiotics. Prior Anticoagulants: The patient has taken no anticoagulant or antiplatelet agents except for NSAID medication. ASA Grade Assessment: II - A patient with mild systemic disease. After reviewing the risks and benefits, the patient was deemed in satisfactory condition to undergo the procedure. The anesthesia plan was to use monitored anesthesia care (MAC). Immediately prior to administration of medications, the patient was re-assessed for adequacy to receive sedatives. The heart rate, respiratory rate, oxygen saturations, blood pressure, adequacy of pulmonary ventilation, and response to care were monitored throughout the procedure. The physical status of the patient was re-assessed after the procedure. After obtaining informed consent, the endoscope was passed under direct vision. Throughout the procedure, the patient's blood pressure, pulse, and oxygen saturations were monitored continuously. The Colonoscope was introduced through the mouth, and advanced to the fourth part of the duodenum. Small bowel enteroscopy was deemed necessary. The upper GI endoscopy was accomplished without difficulty. The patient tolerated the procedure well. Scope In: 1:38:05 PM Scope Out: 1:55:41 PM Total Procedure Duration Time 0 hours 17 minutes 36 seconds Findings: No gross lesions were noted in the entire esophagus. No gross lesions were noted in the entire examined stomach. A single 26 mm angiodysplastic lesion with bleeding was found in the fourth portion of the duodenum. Coagulation for hemostasis using heater probe was successful. For location marking, one hemostatic clip was successfully placed. Clip nut tightener: [employer]. There was no bleeding at the end of the procedure. Impression: - No gross lesions in the entire esophagus. - No gross lesions in the entire stomach. - A single bleeding angiodysplastic lesion in the duodenum. Treated with a heater probe. Clip was placed. Clip nut tightener: [employer]. - No specimens collected. Recommendation: - [facility] to [facility] for [facility] care. - Full liquid diet. - Continue present medications. Procedure Code(s): --- Professional --- 94936, Small intestinal endoscopy, enteroscopy beyond second portion of duodenum, not including ileum; with control of bleeding (eg, injection, bipolar cautery, unipolar cautery, laser, heater probe, stapler, plasma dairy feed sales consultant) 18862, Unlisted procedure, small intestine CPT copyright 2021 [employer]. All rights reserved. The codes documented in this report are preliminary and upon enrollment processor review may be revised to meet current compliance requirements. Ed Carlson DO 01/29/2024 4:13:03 PM This report has been signed electronically. Number of Addenda: 0 Note Initiated On: 01/29/2024 1:24 PM
--- NOTE | 2024-01-29 16:13 | OP.CCLET_ITS ---
01/29/2024 Adina Bhat NP [facility] [address] [address] Re : Upper GI endoscopy procedure for Ranulfo Tom Dear Ms. Bhat This procedure was performed on Monday, January 29, 2024. My impressions and recommendations are as follows: Impressions : - No gross lesions in the entire esophagus. - No gross lesions in the entire stomach. - A single bleeding angiodysplastic lesion in the duodenum. Treated with a heater probe. Clip was placed. Clip gastroenterologist: [employer]. - No specimens collected. Recommendations : - Return patient to [facility] for [facility] care. - Full liquid diet. - Continue present medications. My findings are described in the full procedure note, which is enclosed. If I can be of further assistance, please feel free to contact me at . Sincerely, Ed Carlson, 01/29/2024 4:13:03 PM This report has been signed electronically.
[2024-01-29] MEDS: Furosemide 40 MG Tablet PO (16:32)
[2024-01-29 16:51] LABS: Bedside Glucose 104 mg/dL (74-106)
[2024-01-29 19:04] LABS: Bedside Glucose 82 mg/dL (74-106)
[2024-01-29 19:04] LABS: Bedside Glucose 54 mg/dL (74-106)
[2024-01-29 20:02] LABS: Magnesium 1.8 mg/dL (1.6-2.6)
[2024-01-29] MEDS: Carvedilol 25 MG Tablet PO (22:04)
[2024-01-29] MEDS: cloNIDine HCl 0.1 MG Tablet 0.05 MG PO (22:04)
[2024-01-29] MEDS: Atorvastatin Calcium 80 MG Tablet PO (22:05)
[2024-01-29] MEDS: 0.9% Saline Lock 10 ML Syringe IV (22:13)
[2024-01-29 22:25] LABS: Bedside Glucose 108 mg/dL (74-106)
--- NOTE | 2024-01-29 23:09 | PCM.POSTANE2 ---
Anesthesia Postop Eval I Sum Postop Eval Completion status Anesthesia document: Postop Eval 1 completed: Yes Anesthesia Postop Eval I Summary Anesthesia Postop Eval I Summary: Anesthesia Postop Eval I: Assessment Summary Airway patent Yes 01/29/24 14:10 [email or web address] Spontaneous unlabored Yes 01/29/24 14:10 [email or web address] respirations Mental status Asleep 01/29/24 14:10 [email or web address] nausea No 01/29/24 14:10 [email or web address] Vomiting No 01/29/24 14:10 [email or web address] Anesthesia Postop Eval I: Fluid Summary Crystalloid volume administer 60 01/29/24 14:10 [email or web address] (ml) Colloids volume administered ( ml) Blood Product volume administered (ml) Total IV fluid infused 60 01/29/24 14:10 [email or web address] Anesthesia Postop Eval I: Summary Notes Anesthesia Complication No 01/29/24 14:10 [email or web address] Anesthesia Complication Comment: Post-operative progress note Anesthesia: Postop Eval II Evaluation Mental status: Awake and Calm Pain Level: 0 nausea: No Vomiting: No Complications Anesthesia Complication: No
[2024-01-30] VITALS (9 sets, daily range): BP systolic 126–178; BP diastolic 49–62; PULSE 56–62; RESP 16; TEMP 36.4–37.2; O2SAT 91–98
[2024-01-30 07:12] LABS: Absolute Lymphocyte Count 1.43 X10^3/uL (0.83-4.51); Absolute Neutrophil Count 3.9 X10^3/uL (2.0-7.7); Basophil# 0.04 X10^3/uL; Basophil% 0.7 % (0-1); Eosinophil# 0.08 X10^3/uL; Eosinophils% 1.3 % (0-5); Hematocrit 22.9 % (40-54); Hemoglobin 7.3 g/dL (13.0-16.5); Lymphocyte # 1.43 X10^3/ul (0.83-4.51); Lymphocyte % 23.6 % (19-41); Mean Corp Hgb Conc 31.9 g/dL (32-36); Mean Corpuscular Hgb 29.1 pg (27.0-32.0); Mean Corpuscular Volume 91.2 fL (80-94); Mean Platelet Vol. 9.6 fl (6.2-12.0); Monocyte# 0.57 X10^3/uL; Monocyte% 9.4 % (0-10); NRBC Flagged by Analyzer 0 % (0-5); Neutrophil # 3.91 X10^3/uL (2.7-7.7); Neutrophil % 64.3 % (47-70); Platelet Count 238 K/mm3 (150-450); RBC Distribution Width CV 15.4 % (11.6-14.6); Red Blood Count 2.51 M/mm3 (4.6-6.2); White Blood Count 6.1 K/mm3 (4.4-11.0)
[2024-01-30 07:44] LABS: Anion Gap 3 (5-15); BUN 34 mg/dL (7-18); BUN/Creat Ratio 10.1 RATIO (10-20); Calcium,Total 8.1 mg/dL (8.5-10.1); Chloride 115 mmol/L (98-107); Creatinine, Serum 3.37 mg/dL (0.70-1.30); EST Glomerular Filtration Rate 20 mL/min (>60); Est Glom Filt Rate - Afr Amer 24 mL/min (>60); Estimated Creatinine Clearance 22.55 ml/min; Glucose 74 mg/dL (74-106); Potassium 4.4 mmol/L (3.5-5.1); Sodium Level 141 mmol/L (136-145)
[2024-01-30 10:11] LABS: Bedside Glucose 85 mg/dL (74-106)
[2024-01-30] MEDS: Pantoprazole Sodium 40 MG in 0.9% Normal Saline (100mL MB+) 100 ML 330 MG IV ×2 (10:31→21:03)
[2024-01-30] MEDS: cloNIDine HCl 0.1 MG Tablet 0.05 MG PO ×2 (10:31→21:02)
[2024-01-30] MEDS: Furosemide 40 MG Tablet PO ×2 (10:31→16:31)
[2024-01-30] MEDS: NIFEdipine 90 MG Tablet PO (10:32)
[2024-01-30] MEDS: Carvedilol 25 MG Tablet PO ×2 (10:32→21:02)
[2024-01-30] MEDS: Empagliflozin 10 MG Tablet PO (10:32)
[2024-01-30 12:09] LABS: Bedside Glucose 161 mg/dL (74-106)
--- NOTE | 2024-01-30 15:00 | PN_ITS ---
Subjective Subjective Patient seen and examined. He had no active complaints. He had EGD yesterday which showed a single bleeding angiodysplastic lesion in the duodenum. Hemoglobin today 7.3. Review of symptoms otherwise negative. Objective Data Objective Data Vital Signs: Vital Signs Temp Pulse Resp BP Pulse Ox O2 Del Method 97.5 F L 61 16 178/49 H 98 Room Air 01/30/24 10:29 01/30/24 10:29 01/30/24 10:29 01/30/24 10:29 01/30/24 10:29 01/30/24 14:20 Oxygen Delivery Method Room Air Weight: 153 lb 10.595 oz Body Mass Index (BMI) 23.3 Intake & Output: Intake and Output for Last 24 Hours 01/28/24 01/29/24 01/30/24 23:59 23:59 23:59 Intake Total 1823.08 / 1823.08 1470.00 / 1470.00 710 / 710 Output Total 150 / 750 2550 / 3475 1850 / 1850 Balance 1673.08 / 1073.08 -1080.00 / -2005.00 -1140 / -1140 Lab / Micro Data 01/30/24 05:56 01/30/24 06:05 Labs: Laboratory Results - last 24 hr 01/28/24 11:47: Crossmatch See Detail 01/28/24 21:33: POC Glucose 54 L 01/28/24 21:48: POC Glucose 82 01/29/24 16:30: POC Glucose 104 01/29/24 19:32: Magnesium 1.8 01/29/24 21:55: POC Glucose 108 H 01/30/24 05:56: WBC 6.1, RBC 2.51 L, Hgb 7.3 L, Hct 22.9 L, MCV 91.2, MCH 29.1, MCHC 31.9 L, RDW Std Deviation 51.0 H, RDW Coeff of Dana 15.4 H, Plt Count 238, MPV 9.6, Immature Gran % (Auto) 0.700, Neut % (Auto) 64.3, Lymph % (Auto) 23.6, [place] % (Auto) 9.4, Eos % (Auto) 1.3, Baso % (Auto) 0.7, Absolute Neuts (auto) 3.9, Absolute Lymphs (auto) 1.43, Nucleated RBC % 0 01/30/24 06:05: Sodium 141, Potassium 4.4, Chloride 115 H, Carbon Dioxide 23.0, Anion Gap 3 L, BUN 34 H, Creatinine 3.37 H, Estim Creat Clear Calc 22.55, Est GFR (MDRD) Af Amer 24 L, Est GFR (MDRD) Non-Af 20 L, BUN/Creatinine Ratio 10.1, Glucose 74, Calcium 8.1 L 01/30/24 09:50: POC Glucose 85 01/30/24 11:51: POC Glucose 161 H Micro: Microbiology 01/28/24 11:50 Stool Stool Occult Blood (RODRIGUE) - Final Occult Blood Positive Physical Exam Const alert, oriented x3 and no apparent distress Constitutional Narrative: frail General Appearance: cooperative HEENT normocephalic, head/scalp atraumatic, moist oral mucous membranes and oropharynx normal Eyes PERRL, EOMs intact bilaterally and conjunctivae normal Neck no lymphadenopathy and supple Resp normal respiratory effort, no retractions, no use of accessory muscles and clear to auscultation bilaterally Cardio regular rate, regular rhythm, S1 normal heart sound, S2 normal heart sound and no murmurs GI normal to inspection, nondistended, normoactive bowel sounds, soft to palpation, non-tender and non-distended GI Narrative: has a colostomy bag in situ Extremity normal to inspection, full ROM, normal capillary refill and no clubbing, cyanosis or edema General Extremity: no tenderness to palpation of joints or extremities Skin General Skin Exam: no breakdown Neuro oriented x3, CN's II-XII intact bilaterally, moves all extremities and no focal motor deficits Sensorium / Orientation: awake and alert Motor Exam: strength 5/5 throughout Psych affect normal Appearance: appropriate Assessment & Plan Assessment/Plan (1) Acute on chronic anemia: PLAN: Plan #Acute on chronic anemia * concerning for GI bleed. * Patient has had recurrent acute on chronic anemia and has required multiple transfusions. * He had EGD and colonoscopy on January 13 which did not really show any evidence of bleeding. * He also had EGD on December 11, 2023 which showed severe erosive esophagitis which was treated with a heater probe * Hb was 5.5. on admission. S/p transfusion of 2 units of PRBCs. * Hb today is 7.3. * He had EGD yesterday which showed single angiodysplastic lesion which was bleeding in the duodenum. This was cauterized. * Hold aspirin and Plavix. * To have capsule endoscopy on outpatient basis. * Discuss with GI about resuming aspirin and plavix * Patient will benefit from a capsule endoscopy but will defer to GI. * IV pantoprazole 40 mg twice daily. * #Recent CVA * On aspirin and Plavix which are on hold due to GI bleed. He had a stroke in December 2023. MRI showed no evidence of a stroke but neurology reviewed the patient and thought he did have a stroke on the MRI. * On high intensity statin. Resume aspirin and Plavix when okay with GI. #CAD s/p stents: Plavix on hold. On carvedilol and high intensity statin. Aspirin also on hold. #Peripheral artery disease s/p left SFA stent: * This was done in March 2023. * Aspirin and Plavix on hold due to GI bleed. * On high intensity statin #CKD stage IV: Cr is 3.37 today which is around his baseline. Will monitor. To follow up with nephrology on outpatient basis. #COPD: Not in exacerbation. Breathing treatments bronchodilators. #Hypertension: On nifedipine and carvedilol. IV hydralazine as needed #Type 2 diabetes mellitus: On insulin sliding scale. Accu-Cheks ACHS. DVT prophylaxis; SCDs CODE STATUS: Full code * Charges/Coding Visit Charges Inpatient E&M: 67936 Subs Hosp L2
[2024-01-30] MEDS: Juven (unflavored) Packet 1 PACKET PO (16:31)
[2024-01-30 16:58] LABS: Bedside Glucose 78 mg/dL (74-106)
[2024-01-30 16:58] LABS: Bedside Glucose 64 mg/dL (74-106)
--- NOTE | 2024-01-30 17:18 | EX.PCM.PN.GI ---
Subjective Subjective Patient underwent EGD yesterday. He had some mild shortness of breath after procedure but that has gotten better and he is currently on room air at this time. Objective Data Objective Data Vital Signs: Vital Signs Temp Pulse Resp BP Pulse Ox O2 Del Method 98.2 F 56 L 16 136/60 H 98 Room Air 01/30/24 16:24 01/30/24 16:24 01/30/24 16:24 01/30/24 16:24 01/30/24 15:25 01/30/24 16:24 Oxygen Delivery Method Room Air Weight: 153 lb 10.595 oz Body Mass Index (BMI) 23.3 Intake & Output: Intake and Output for Last 24 Hours 01/28/24 01/29/24 01/30/24 23:59 23:59 23:59 Intake Total 1823.08 / 1823.08 1470.00 / 1470.00 710 / 710 Output Total 150 / 750 2550 / 3475 1850 / 1850 Balance 1673.08 / 1073.08 -1080.00 / -2005.00 -1140 / -1140 Lab / Micro Data 01/30/24 05:56 01/30/24 06:05 Labs: Laboratory Results - last 24 hr 01/28/24 11:47: Crossmatch See Detail 01/28/24 21:33: POC Glucose 54 L 01/28/24 21:48: POC Glucose 82 01/29/24 19:32: Magnesium 1.8 01/29/24 21:55: POC Glucose 108 H 01/30/24 05:56: WBC 6.1, RBC 2.51 L, Hgb 7.3 L, Hct 22.9 L, MCV 91.2, MCH 29.1, MCHC 31.9 L, RDW Std Deviation 51.0 H, RDW Coeff of Dana 15.4 H, Plt Count 238, MPV 9.6, Immature Gran % (Auto) 0.700, Neut % (Auto) 64.3, Lymph % (Auto) 23.6, [place] % (Auto) 9.4, Eos % (Auto) 1.3, Baso % (Auto) 0.7, Absolute Neuts (auto) 3.9, Absolute Lymphs (auto) 1.43, Nucleated RBC % 0 01/30/24 06:05: Sodium 141, Potassium 4.4, Chloride 115 H, Carbon Dioxide 23.0, Anion Gap 3 L, BUN 34 H, Creatinine 3.37 H, Estim Creat Clear Calc 22.55, Est GFR (MDRD) Af Amer 24 L, Est GFR (MDRD) Non-Af 20 L, BUN/Creatinine Ratio 10.1, Glucose 74, Calcium 8.1 L 01/30/24 06:19: POC Glucose 64 L 01/30/24 06:31: POC Glucose 78 01/30/24 09:50: POC Glucose 85 01/30/24 11:51: POC Glucose 161 H Micro: Microbiology 01/28/24 11:50 Stool Stool Occult Blood (RODRIGUE) - Final Occult Blood Positive Physical Exam Const alert, oriented x3 and no apparent distress Constitutional Narrative: frail General Appearance: cooperative HEENT normocephalic, head/scalp atraumatic, moist oral mucous membranes and oropharynx normal Eyes PERRL, EOMs intact bilaterally and conjunctivae normal Neck no lymphadenopathy and supple Resp normal respiratory effort, no retractions, no use of accessory muscles and clear to auscultation bilaterally Cardio regular rate, regular rhythm, S1 normal heart sound, S2 normal heart sound and no murmurs GI normal to inspection, nondistended, normoactive bowel sounds, soft to palpation, non-tender and non-distended GI Narrative: has a colostomy bag in situ Extremity normal to inspection, full ROM, normal capillary refill and no clubbing, cyanosis or edema General Extremity: no tenderness to palpation of joints or extremities Skin General Skin Exam: no breakdown Neuro oriented x3, CN's II-XII intact bilaterally, moves all extremities and no focal motor deficits Sensorium / Orientation: awake and alert Motor Exam: strength 5/5 throughout Psych affect normal Appearance: appropriate Assessment & Plan Assessment/Plan (1) Acute on chronic blood loss anemia: (2) Recurrent gastrointestinal hemorrhage: PLAN: Plan Patient is a 58-year-old male who presented to [facility] ED on 01/28/2024 with worsening anemia presumed secondary to recurrent GI bleed. Acute on chronic anemia presumed secondary to recurrent upper GI bleed ? Hemoglobin 5.5 on admit, down from 7.1 on 01/22. Patient reporting melanotic stools in his colostomy bag. EGD on 12/10 showed grade D erosive esophagitis with active bleeding that was cauterized. EGD recently on 01/14/2024 did not reveal any abnormalities. However patient was continued on aspirin and Plavix due to recent peripheral stent placed in May as noted below. - IV Protonix bolus given in ED and will agree with IV PPI twice daily. Okay for clear liquids for now. Patient underwent push enteroscopy while in hospital and will need capsule endoscopy as an outpatient as it cannot be done as an inpatient. Charges/Coding Visit Charges Inpatient E&M: 10556 Subs Hosp L3
[2024-01-30 17:27] LABS: Bedside Glucose 154 mg/dL (74-106)
[2024-01-30] MEDS: Atorvastatin Calcium 80 MG Tablet PO (21:02)
[2024-01-30 21:34] LABS: Bedside Glucose 192 mg/dL (74-106)
[2024-01-31 03:30] VITALS: BP 165/57; PULSE 61; RESP 16; TEMP 36.7; O2SAT 99
[2024-01-31 07:12] LABS: Bedside Glucose 104 mg/dL (74-106)
[2024-01-31 07:19] VITALS: O2SAT 98
[2024-01-31 08:24] LABS: Absolute Lymphocyte Count 1.78 X10^3/uL (0.83-4.51); Absolute Neutrophil Count 4.5 X10^3/uL (2.0-7.7); Basophil# 0.05 X10^3/uL; Basophil% 0.7 % (0-1); Eosinophil# 0.12 X10^3/uL; Eosinophils% 1.7 % (0-5); Hematocrit 26.3 % (40-54); Hemoglobin 8.2 g/dL (13.0-16.5); Lymphocyte # 1.78 X10^3/ul (0.83-4.51); Mean Corp Hgb Conc 31.2 g/dL (32-36); Mean Corpuscular Hgb 28.1 pg (27.0-32.0); Mean Corpuscular Volume 90.1 fL (80-94); Mean Platelet Vol. 9.8 fl (6.2-12.0); Monocyte# 0.63 X10^3/uL; Monocyte% 8.8 % (0-10); NRBC Flagged by Analyzer 0 % (0-5); Neutrophil # 4.48 X10^3/uL (2.7-7.7); Neutrophil % 62.8 % (47-70); Platelet Count 240 K/mm3 (150-450); RBC Distribution Width CV 15.6 % (11.6-14.6); RBC Distribution Width SD 51.1 fl (35.1-43.9); Red Blood Count 2.92 M/mm3 (4.6-6.2); White Blood Count 7.1 K/mm3 (4.4-11.0)
[2024-01-31 09:01] LABS: Anion Gap 2 (5-15); BUN 37 mg/dL (7-18); BUN/Creat Ratio 11.5 RATIO (10-20); Calcium,Total 8.5 mg/dL (8.5-10.1); Chloride 115 mmol/L (98-107); Creatinine, Serum 3.21 mg/dL (0.70-1.30); EST Glomerular Filtration Rate 21 mL/min (>60); Est Glom Filt Rate - Afr Amer 26 mL/min (>60); Estimated Creatinine Clearance 23.68 ml/min; Glucose 94 mg/dL (74-106); Potassium 5.4 mmol/L (3.5-5.1); Sodium Level 140 mmol/L (136-145)
[2024-01-31 09:18] VITALS: BP 198/58; PULSE 53; RESP 16; TEMP 36.9; O2SAT 97
[2024-01-31] MEDS: Juven (unflavored) Packet 1 PACKET PO ×2 (09:21→18:17)
[2024-01-31] MEDS: Furosemide 40 MG Tablet PO ×2 (09:21→18:16)
[2024-01-31] MEDS: NIFEdipine 90 MG Tablet PO (09:21)
[2024-01-31] MEDS: Clopidogrel Bisulfate 75 MG Tablet PO (09:21)
[2024-01-31] MEDS: cloNIDine HCl 0.1 MG Tablet 0.05 MG PO ×2 (09:22→21:37)
[2024-01-31] MEDS: Pantoprazole Sodium 40 MG in 0.9% Normal Saline (100mL MB+) 100 ML 330 MG IV ×2 (09:22→21:29)
[2024-01-31 10:39] VITALS: BP 171/49
[2024-01-31 11:41] LABS: Bedside Glucose 157 mg/dL (74-106)
--- NOTE | 2024-01-31 13:34 | CASEMGMT ---
Patient has order for discharge. RN CM in to discuss needs at discharge. Patient to discharge home with resumption of HHC with [facility]. Patient denied further needs or concerns. Patient had no further questions or concerns. DC planning and analysis manager to updated C and send clinical information.
--- NOTE | 2024-01-31 13:50 | DS.PCM_ITS ---
Providers Date of Admission: 01/28/24 Date of Discharge: 02/01/24 Primary Care Physician: DEVONTE Zimmerman Consultations 01/28/24 14:50 Consult: Onc/Wound/buhr dresser Routine Comment: 01/28/24 15:58 Consult: Gastroenterology Routine Consulting Provider: [facility] Reason for Consult: acute on chronic anemia EMERGENT Consult: No MD Notified: Yes Date Notified: 01/28/24 Time Notified: 15:59 Method of Notification: Text Reason For Visit: ACUTE ON CHRONIC ANEMIA Diagnosis Discharge Diagnosis (1) Acute on chronic blood loss anemia: Status: Resolved Code(s): D62 - Acute posthemorrhagic anemia (2) Recurrent gastrointestinal hemorrhage: Status: Deleted Code(s): K92.2 - Gastrointestinal hemorrhage, unspecified Plan #Acute on chronic anemia * concerning for GI bleed. * Patient has had recurrent acute on chronic anemia and has required multiple transfusions. * He had EGD and colonoscopy on January 13 which did not really show any evidence of bleeding. * He also had EGD on December 11, 2023 which showed severe erosive esophagitis which was treated with a heater probe * Hb was 5.5. on admission. S/p transfusion of 2 units of PRBCs. * Hb today is 7.3. * He had EGD yesterday which showed single angiodysplastic lesion which was bleeding in the duodenum. This was cauterized. * Hold aspirin and Plavix. * To have capsule endoscopy on outpatient basis. * Discuss with GI about resuming aspirin and plavix * Patient will benefit from a capsule endoscopy but will defer to GI. * IV pantoprazole 40 mg twice daily. * #Recent CVA * On aspirin and Plavix which are on hold due to GI bleed. He had a stroke in December 2023. MRI showed no evidence of a stroke but neurology reviewed the patient and thought he did have a stroke on the MRI. * On high intensity statin. Resume aspirin and Plavix when okay with GI. #CAD s/p stents: Plavix on hold. On carvedilol and high intensity statin. Aspirin also on hold. #Peripheral artery disease s/p left SFA stent: * This was done in March 2023. * Aspirin and Plavix on hold due to GI bleed. * On high intensity statin #CKD stage IV: Cr is 3.37 today which is around his baseline. Will monitor. To follow up with nephrology on outpatient basis. #COPD: Not in exacerbation. Breathing treatments bronchodilators. #Hypertension: On nifedipine and carvedilol. IV hydralazine as needed #Type 2 diabetes mellitus: On insulin sliding scale. Accu-Cheks ACHS. DVT prophylaxis; SCDs CODE STATUS: Full code * Medications at Discharge Home Medications guselkumab 100 mg/mL subcutaneous syringe (Tremfya) 100 mg subcut Q4W ARTHRITIS 04/23/22 carvedilol 25 mg tablet 25 mg PO BID blood pressure #60 tabs 03/01/23 nifedipine 90 mg tablet,extended release 24 hr 90 mg PO DAILY blood pressure #90 tabs 05/08/23 atorvastatin 80 mg tablet 80 mg PO QHS cholesterol #30 tabs 12/14/23 albuterol sulfate 90 mcg/actuation aerosol inhaler See Rx Instructions .Route .COMPLEX PRN shortness of breath or wheezing #8.5 grams 01/01/24 furosemide 40 mg tablet (Lasix) 40 mg PO BIDCM diuretic #60 tabs 01/15/24 clonidine HCl 0.1 mg tablet 0.05 mg (1/2 x 0.1 mg) PO BID blood pressure 30 days #30 tabs 01/24/24 clopidogrel 75 mg tablet 75 mg PO DAILY anti platelet #30 tabs 01/24/24 dapagliflozin propanediol 10 mg tablet (Farxiga) 10 mg PO QAM diabetes 01/24/24 pantoprazole 40 mg tablet,delayed release 40 mg PO BID #60 tabs 01/31/24 Hospital Course Operations None Procedures EGD Summary of Care Provided Minutes Spent on Discharge: 47 Hospital Course: SVEN DUONG, is a 58 M with a PMH as outlined who presents via the ED on 01/28/2024 with a complaint of anemia. HE was sent to the ED from his oncologist's office on account of labs done which showed that he was anemic with hemoglobin of 5.5. Patient has had recurrent anemia for which he has had 2 EGDs and colonoscopies over the last month. His last colonoscopy was just on January 14, 2024 which did not show any evidence of bleeding. He also had EGD on January 14, 2024 which showed normal esophagus with no gross lesions in the fourth portion of the duodenum and normal jejunum. He was referred to oncology and states he just saw them today and was started on iron supplementation. He is still on aspirin and Plavix. He admits to feeling weak but denied any lightheadedness or dizziness, palpitations, nausea vomiting or any other symptoms. Review of symptoms otherwise negative. Vitals in the ED were blood pressure of 124/58, pulse rate of 62, respiratory rate 16 and temperature of 97.3 Fahrenheit. Was saturating at 100% on room air. CBC done today showed hemoglobin of 5.5 with WBC of 5.6 and platelets of 245. Chemistry shows sodium of 138 with potassium of 3.8 and creatinine of 3.98. Iron level was low at 18 and iron saturation is only 8.5. He was admitted to be managed for acute on chronic severe iron deficiency anemia. Gastroenterology was consulted and patient was placed on IV pantoprazole. He was transfused with 2 units of packed red blood cells. He had EGD which showed a single angiodysplastic lesion which was bleeding in the duodenum and this was cauterized. Per gastroenterology as well as to have The Scorpion Abscess Patient Basis. Patient's Aspirin Was Discontinued. GI and His Plavix Was Resumed. He Was Given Another Unit of Blood to Show Hemoptysis. Hospital Course Was Complicated by Poorly Controlled Hypertension with Systolic Going up to the 200s. Patient Said This Was Normal for Him and He Preferred to Follow-Up with His PCP. Blood Pressure Improved with P.O. Clonidine. He Remained Stable and Was Discharged Home on 02/01/2024 on P.O. Pantoprazole 40 Mg Twice Daily. As Stated above His Aspirin Was Discontinued He Was Continued on His Plavix. He Is Follow-Up with Gastroenterology to Determine When He Can Be Resumed on His Aspirin. Patient seen and examined prior to discharge. His son-in-law and granddaughter were by his bedside. He had no active complaints. Review of systems otherwise negative. Labs and vitals reviewed. Medication reviewed and reconciled. Physical Exam Const alert, oriented x3 and no apparent distress Constitutional Narrative: frail General Appearance: cooperative and comfortable Orientation / Consciousness: awake HEENT normocephalic, head/scalp atraumatic, hearing grossly normal bilaterally, moist oral mucous membranes and oropharynx normal Mouth: oral and palatal mucosa normal Eyes PERRL, EOMs intact bilaterally and conjunctivae normal Neck no lymphadenopathy and supple Resp normal respiratory effort, normal air movement, no retractions, no use of accessory muscles and clear to auscultation bilaterally Cardio regular rate, regular rhythm, S1 normal heart sound, S2 normal heart sound and no murmurs GI normal to inspection, nondistended, normoactive bowel sounds, soft to palpation, non-tender and non-distended GI Narrative: has a colostomy bag in situ Extremity normal to inspection, full ROM, normal capillary refill and no clubbing, cyanosis or edema General Extremity: no tenderness to palpation of joints or extremities Skin no rashes or lesions noted General Skin Exam: no breakdown Neuro oriented x3, CN's II-XII intact bilaterally, moves all extremities and no focal motor deficits Sensorium / Orientation: awake and alert Motor Exam: strength 5/5 throughout Psych thought process normal, cooperative and affect normal Appearance: appropriate Weight / BMI Weight Weight: 153 lb 10.595 oz Body Mass Index (BMI) 23.3 ABG / Lab / Microbiology Data 02/01/24 04:55 02/01/24 04:55 Laboratory: Laboratory Results - last 24 hr 01/31/24 17:20: POC Glucose 170 H 01/31/24 21:26: POC Glucose 172 H 02/01/24 04:55: WBC 10.3, RBC 2.97 L, Hgb 8.5 L, Hct 26.8 L, MCV 90.2, MCH 28.6, MCHC 31.7 L, RDW Std Deviation 50.3 H, RDW Coeff of Dana 15.4 H, Plt Count 265, MPV 10.0, Immature Gran % (Auto) 1.900 H, Neut % (Auto) 65.3, Lymph % (Auto) 22.7, [place] % (Auto) 7.6, Eos % (Auto) 1.9, Baso % (Auto) 0.6, Absolute Neuts (auto) 6.7, Absolute Lymphs (auto) 2.33, Nucleated RBC % 0, Sodium 139, P otassium 5.6 H, Chloride 111 H, Carbon Dioxide 25.0, Anion Gap 3 L, BUN 49 H, C reatinine 3.31 H, Estim Creat Clear Calc 22.96, Est GFR (MDRD) Af Amer 25 L, Est GFR (MDRD) Non-Af 20 L, BUN/Creatinine Ratio 14.8, Glucose 111 H, Calcium 8.5 02/01/24 06:34: POC Glucose 101 02/01/24 11:52: POC Glucose 203 H Microbiology: Microbiology 01/28/24 11:50 Stool Stool Occult Blood (RODRIGUE) - Final Occult Blood Positive D/C Instructions Discharge Diet: Low fat / Low cholesterol Discharge Activity: Return to Normal Activity Weight Bearing Status: Weight bearing as tolerated Call your doctor if you observe: Fever of 101 or Higher, Shortness of breath, Dizziness, Swelling in the ankles and Chest pain DC O2, CPAP, BIPAP Needs Home O2 Discharge instructions: No DC home with Oxygen: No Meaningful Use Info Meaningful Use Meaningful Use Diagnoses (Choose all that apply): None applicable Ischemic Stroke Statin Dosing Therapy Reference: STATIN DOSE THERAPY REFERENCE: * Patients > 75 years receive moderate or high dose statin therapy. * Patients 75 years or YOUNGER should receive HIGH intensity statin dose unless contraindicated. You will be required to document reason for non-treatment if statin daily dose does not meet guidelines. HIGH DOSE STATIN THERAPY DAILY Atorvastatin > than or = to 40 mg Rosuvastatin > than or = to 20 mg Amlodipine + Atorvastatin > than or = to 2.5/40 mg Ezetimibe + Simvastatin 10/80 mg Simvastatin 80mg Discharge Plan Admission Admit Date/Time: 01/28/24 13:56 Primary Reason for Your Visit: GI bleed Attending Provider: Carina Nevarez Primary Care Provider: Adina Bhat BOOTH SUPERVISOR Instructions Patient Instructions: GI Bleeding Ch, H Pylori Ulcers Ch Discharge Orders/Prescriptions Prescriptions: Continued Tremfya 100 mg/mL syringe 100 mg subcut Q4W Patient Comments: PT RICO THIS IS EVERY 8 WEEKS, DOESNT REMEMBER LAST DOSE carvedilol 25 mg tablet 25 mg PO BID Qty: 60 12RF Rx Instructions: must administer with a meal/food clopidogrel 75 mg tablet 75 mg PO DAILY Qty: 30 4RF clonidine HCl 0.1 mg tablet 0.05 mg PO BID 30 Days Qty: 30 4RF dapagliflozin propanediol [Farxiga] 10 mg tablet 10 mg PO QAM pantoprazole 40 mg Tablet,Delayed Release (Dr/Ec) 40 mg PO BID Qty: 60 3RF atorvastatin 80 mg Tablet 80 mg PO QHS Qty: 30 2RF albuterol sulfate 90 mcg/actuation HFA aerosol inhaler See Rx Instructions .ROUTE .COMPLEX PRN (Reason: shortness of breath or wheezing) Qty: 8.5 0RF Rx Instructions: 1-2 puffs every 4-6 hours as needed for shortness of breath or wheezing furosemide [Lasix] 40 mg tablet 40 mg PO BIDCM Qty: 60 0RF nifedipine 90 mg tablet extended release 24hr 90 mg PO DAILY Qty: 90 3RF Discontinued aspirin 81 mg tablet,delayed release (DR/EC) 81 mg PO DAILY Referrals / Follow Up: Ed Carlson DO [Med Staff - Active Staff] - 02/06/24 1:30 pm Adina Bhat NP, BOOTH SUPERVISOR-C [Primary Care Provider] - Within 1 Week (Please call after 02-17-24 to schedule an appt. ) Disposition Disposition (needs filled in before D/C Order can be placed): Home, Self Care Charges/Coding Visit Charges Inpatient E&M: 48770 Disch Hosp >30min
--- NOTE | 2024-01-31 13:50 | PCM.DC ---
Discharge Instructions Diet Discharge Diet: Low fat / Low cholesterol DC O2, CPAP, BIPAP needs Home O2 Discharge instructions: No Dressing / Incision Discharge Activity: Return to Normal Activity Weight Bearing Status: Weight bearing as tolerated Dressing / Incision Call your doctor if you observe: Fever of 101 or Higher, Shortness of breath, Swelling in the ankles, Chest pain and - (rectal bleeding) Follow Up Care Test Results: Test results from this visit will be discussed in further detail at your follow-up appointment, if applicable. Discharge Plan Admission Admit Date/Time: 01/28/24 13:56 Primary Reason for Your Visit: GI bleed Attending Provider: Carina Nevarez Primary Care Provider: Adina Bhat NP Instructions Patient Instructions: GI Bleeding Ch, H Pylori Ulcers Ch Discharge Orders/Prescriptions Prescriptions: Continued Tremfya 100 mg/mL syringe 100 mg subcut Q4W Patient Comments: PT RICO THIS IS EVERY 8 WEEKS, DOESNT REMEMBER LAST DOSE carvedilol 25 mg tablet 25 mg PO BID Qty: 60 12RF Rx Instructions: must administer with a meal/food clopidogrel 75 mg tablet 75 mg PO DAILY Qty: 30 4RF clonidine HCl 0.1 mg tablet 0.05 mg PO BID 30 Days Qty: 30 4RF dapagliflozin propanediol [Farxiga] 10 mg tablet 10 mg PO QAM pantoprazole 40 mg Tablet,Delayed Release (Dr/Ec) 40 mg PO BID Qty: 60 3RF atorvastatin 80 mg Tablet 80 mg PO QHS Qty: 30 2RF albuterol sulfate 90 mcg/actuation HFA aerosol inhaler See Rx Instructions .ROUTE .COMPLEX PRN (Reason: shortness of breath or wheezing) Qty: 8.5 0RF Rx Instructions: 1-2 puffs every 4-6 hours as needed for shortness of breath or wheezing furosemide [Lasix] 40 mg tablet 40 mg PO BIDCM Qty: 60 0RF nifedipine 90 mg tablet extended release 24hr 90 mg PO DAILY Qty: 90 3RF Discontinued aspirin 81 mg tablet,delayed release (DR/EC) 81 mg PO DAILY Referrals / Follow Up: Ed Carlson DO [Med Staff - Active Staff] - 02/06/24 1:30 pm Adina Bhat SOYFREEZE OPERATOR, SOYFREEZE OPERATOR-C [Primary Care Provider] - Within 1 Week (Please call after 02-17-24 to schedule an appt. ) Disposition Disposition (needs filled in before D/C Order can be placed): Home, Self Care
[2024-01-31 15:18] VITALS: BP 200/68; PULSE 53; RESP 18; TEMP 36.8; O2SAT 99
[2024-01-31] MEDS: cloNIDine HCl 0.2 MG Tablet PO (15:31)
--- NOTE | 2024-01-31 16:57 | PN_ITS ---
Subjective Subjective Patient seen and examined. He had no active complaints and had an uneventful night. Review of systems otherwise negative. Plan is to discharge patient today but patient's blood pressures remain markedly elevated in the 200s systolic so decision made to keep patient overnight. Objective Data Objective Data Vital Signs: Vital Signs Temp Pulse Resp BP Pulse Ox O2 Del Method 98.3 F 53 L 18 200/68 H 99 Room Air 01/31/24 15:18 01/31/24 15:18 01/31/24 15:18 01/31/24 15:18 01/31/24 15:18 01/31/24 15:18 Oxygen Delivery Method Room Air Weight: 153 lb 10.595 oz Body Mass Index (BMI) 23.3 Intake & Output: Intake and Output for Last 24 Hours 01/29/24 01/30/24 01/31/24 23:59 23:59 23:59 Intake Total 1470.00 / 1470.00 1920 / 1920 1197.25 / 1197.25 Output Total 2550 / 3475 1850 / 3300 3175 / 3175 Balance -1079.00 / -2004.00 70 / -1380 -1977.75 / -1977.75 Lab / Micro Data 01/31/24 07:07 01/31/24 07:07 Labs: Laboratory Results - last 24 hr 01/28/24 11:47: Crossmatch See Detail 01/30/24 06:19: POC Glucose 64 L 01/30/24 06:31: POC Glucose 78 01/30/24 16:28: POC Glucose 154 H 01/30/24 21:08: POC Glucose 192 H 01/31/24 06:37: POC Glucose 104 01/31/24 07:07: WBC 7.1, RBC 2.92 L, Hgb 8.2 L, Hct 26.3 L, MCV 90.1, MCH 28.1, MCHC 31.2 L, RDW Std Deviation 51.1 H, RDW Coeff of Dana 15.6 H, Plt Count 240, MPV 9.8, Immature Gran % (Auto) 1.000 H, Neut % (Auto) 62.8, Lymph % (Auto) 25.0, [place] % (Auto) 8.8, Eos % (Auto) 1.7, Baso % (Auto) 0.7, Absolute Neuts (auto) 4.5, Absolute Lymphs (auto) 1.78, Nucleated RBC % 0, Sodium 140, P otassium 5.4 H, Chloride 115 H, Carbon Dioxide 23.0, Anion Gap 2 L, BUN 37 H, C reatinine 3.21 H, Estim Creat Clear Calc 23.68, Est GFR (MDRD) Af Amer 26 L, Est GFR (MDRD) Non-Af 21 L, BUN/Creatinine Ratio 11.5, Glucose 94, Calcium 8.5 01/31/24 11:23: POC Glucose 157 H Micro: Microbiology 01/28/24 11:50 Stool Stool Occult Blood (RODRIGUE) - Final Occult Blood Positive Physical Exam Const alert, oriented x3 and no apparent distress General Appearance: cooperative HEENT normocephalic, head/scalp atraumatic, moist oral mucous membranes and oropharynx normal Eyes PERRL, EOMs intact bilaterally and conjunctivae normal Neck no lymphadenopathy and supple Resp normal respiratory effort, normal air movement, no retractions, no use of accessory muscles and clear to auscultation bilaterally Cardio regular rate, regular rhythm, S1 normal heart sound, S2 normal heart sound and no murmurs GI normal to inspection, nondistended, normoactive bowel sounds, soft to palpation, non-tender and non-distended GI Narrative: has a colostomy bag in situ Extremity normal to inspection, full ROM, normal capillary refill and no clubbing, cyanosis or edema General Extremity: no tenderness to palpation of joints or extremities Skin General Skin Exam: no breakdown Neuro oriented x3, CN's II-XII intact bilaterally, moves all extremities and no focal motor deficits Sensorium / Orientation: awake and alert Motor Exam: strength 5/5 throughout Psych thought process normal, cooperative and affect normal Appearance: appropriate Assessment & Plan Assessment/Plan (1) Acute on chronic blood loss anemia: (2) Recurrent gastrointestinal hemorrhage: PLAN: Plan #Acute on chronic anemia * concerning for GI bleed. * Patient has had recurrent acute on chronic anemia and has required multiple transfusions. * He had EGD and colonoscopy on January 13 which did not really show any evidence of bleeding. * He also had EGD on December 11, 2023 which showed severe erosive esophagitis which was treated with a heater probe * Hb was 5.5. on admission. S/p transfusion of 2 units of PRBCs. * Hb today is 8.2 * He had EGD on 01/29/2024 which showed single angiodysplastic lesion which was bleeding in the duodenum. This was cauterized. * Hold aspirin and Plavix. * To have capsule endoscopy on outpatient basis. * Discuss with GI about resuming aspirin and plavix * Patient will benefit from a capsule endoscopy but will defer to GI. * IV pantoprazole 40 mg twice daily. * #Recent CVA * On aspirin and Plavix which are on hold due to GI bleed. He had a stroke in December 2023. MRI showed no evidence of a stroke but neurology reviewed the patient and thought he did have a stroke on the MRI. * On high intensity statin. * Per GI, to resume plavix and continue holding aspirin. To follow up with GI on outpatient basis to determine if Resume aspirin and Plavix when okay with GI. #Hyperkalemia: K is 5.4. Will give kayexalate. #CAD s/p stents: Plavix on hold. On carvedilol and high intensity statin. Aspirin also on hold. #Peripheral artery disease s/p left SFA stent: * This was done in March 2023. * Aspirin and Plavix on hold due to GI bleed. * On high intensity statin #CKD stage IV: Cr is 3.37 today which is around his baseline. Will monitor. To follow up with nephrology on outpatient basis. #COPD: Not in exacerbation. Breathing treatments bronchodilators. #Hypertension: On nifedipine and carvedilol. IV hydralazine as needed #Type 2 diabetes mellitus: On insulin sliding scale. Accu-Cheks ACHS. DVT prophylaxis; SCDs CODE STATUS: Full code * Dispostioon: for likely dc tomorrow. Charges/Coding Visit Charges Inpatient E&M: 25130 Subs Hosp L2
[2024-01-31 17:37] LABS: Bedside Glucose 170 mg/dL (74-106)
[2024-01-31] MEDS: Sodium Polystyrene Sulfonate 15 GM/60 ML UDC 30 GM PO (18:16)
--- NOTE | 2024-01-31 18:53 | EX.PCM.PN.GI ---
Subjective Subjective Patient is doing well and eating without any complaints. He is status post treatment of acute GI bleed in the duodenum and was scheduled for discharge but the patient has been having high blood pressures. Objective Data Objective Data Vital Signs: Vital Signs Temp Pulse Resp BP Pulse Ox O2 Del Method 98.3 F 53 L 18 200/68 H 99 Room Air 01/31/24 15:18 01/31/24 15:18 01/31/24 15:18 01/31/24 15:18 01/31/24 15:18 01/31/24 15:18 Oxygen Delivery Method Room Air Weight: 153 lb 10.595 oz Body Mass Index (BMI) 23.3 Intake & Output: Intake and Output for Last 24 Hours 01/29/24 01/30/24 01/31/24 23:59 23:59 23:59 Intake Total 1470.00 / 1470.00 1920 / 1920 1197.25 / 1197.25 Output Total 2550 / 3475 1850 / 3300 3175 / 3175 Balance -1080.00 / -2004.00 70 / -1380 -1976.75 / -1976.75 Lab / Micro Data 01/31/24 07:07 01/31/24 07:07 Labs: Laboratory Results - last 24 hr 01/30/24 21:08: POC Glucose 192 H 01/31/24 06:37: POC Glucose 104 01/31/24 07:07: WBC 7.1, RBC 2.92 L, Hgb 8.2 L, Hct 26.3 L, MCV 90.1, MCH 28.1, MCHC 31.2 L, RDW Std Deviation 51.1 H, RDW Coeff of Dana 15.6 H, Plt Count 240, MPV 9.8, Immature Gran % (Auto) 1.000 H, Neut % (Auto) 62.8, Lymph % (Auto) 25.0, [place] % (Auto) 8.8, Eos % (Auto) 1.7, Baso % (Auto) 0.7, Absolute Neuts (auto) 4.5, Absolute Lymphs (auto) 1.78, Nucleated RBC % 0, Sodium 140, Potassium 5.4 H, Chloride 115 H, Carbon Dioxide 23.0, Anion Gap 2 L, BUN 37 H, Creatinine 3.21 H, Estim Creat Clear Calc 23.68, Est GFR (MDRD) Af Amer 26 L, Est GFR (MDRD) Non-Af 21 L, BUN/Creatinine Ratio 11.5, Glucose 94, Calcium 8.5 01/31/24 11:23: POC Glucose 157 H 01/31/24 17:20: POC Glucose 170 H Micro: Microbiology 01/28/24 11:50 Stool Stool Occult Blood (RODRIGUE) - Final Occult Blood Positive Physical Exam Const alert, oriented x3 and no apparent distress General Appearance: cooperative HEENT normocephalic, head/scalp atraumatic, moist oral mucous membranes and oropharynx normal Eyes PERRL, EOMs intact bilaterally and conjunctivae normal Neck no lymphadenopathy and supple Resp normal respiratory effort, normal air movement, no retractions, no use of accessory muscles and clear to auscultation bilaterally Cardio regular rate, regular rhythm, S1 normal heart sound, S2 normal heart sound and no murmurs GI normal to inspection, nondistended, normoactive bowel sounds, soft to palpation, non-tender and non-distended GI Narrative: has a colostomy bag in situ Extremity normal to inspection, full ROM, normal capillary refill and no clubbing, cyanosis or edema General Extremity: no tenderness to palpation of joints or extremities Skin General Skin Exam: no breakdown Neuro oriented x3, CN's II-XII intact bilaterally, moves all extremities and no focal motor deficits Sensorium / Orientation: awake and alert Motor Exam: strength 5/5 throughout Psych thought process normal, cooperative and affect normal Appearance: appropriate Assessment & Plan Assessment/Plan (1) Acute on chronic blood loss anemia: (2) Recurrent gastrointestinal hemorrhage: PLAN: Plan Patient is a 58-year-old male who presented to [facility] ED on 01/28/2024 with worsening anemia presumed secondary to recurrent GI bleed. Acute on chronic anemia presumed secondary to recurrent upper GI bleed ? Hemoglobin 5.5 on admit, down from 7.1 on 01/22. Patient reporting melanotic stools in his colostomy bag. EGD on 12/10 showed grade D erosive esophagitis with active bleeding that was cauterized. EGD recently on 01/14/2024 did not reveal any abnormalities. However patient was continued on aspirin and Plavix due to recent peripheral stent placed in May as noted below. - IV Protonix bolus given in ED and will agree with IV PPI twice daily. Okay for clear liquids for now. Patient underwent push enteroscopy while in hospital and will need capsule endoscopy as an outpatient as it cannot be done as an inpatient. 01/31/2024-patient's hemoglobin continues to be stable. The plan is still for capsule endoscopy as an outpatient. Charges/Coding Visit Charges Inpatient E&M: [address] [facility] Hosp L3
[2024-01-31] MEDS: 0.9% Saline Lock 10 ML Syringe IV (21:29)
[2024-01-31 21:30] VITALS: BP 156/55; PULSE 62; RESP 17; TEMP 36.9; O2SAT 97
[2024-01-31] MEDS: Carvedilol 25 MG Tablet PO (21:37)
[2024-01-31] MEDS: Atorvastatin Calcium 80 MG Tablet PO (21:37)
[2024-01-31 21:59] LABS: Bedside Glucose 172 mg/dL (74-106)
[2024-02-01 04:39] VITALS: BP 155/62; PULSE 54; RESP 16; TEMP 36.6; O2SAT 98
[2024-02-01 05:49] LABS: Absolute Lymphocyte Count 2.33 X10^3/uL (0.83-4.51); Absolute Neutrophil Count 6.7 X10^3/uL (2.0-7.7); Basophil# 0.06 X10^3/uL; Basophil% 0.6 % (0-1); Eosinophil# 0.19 X10^3/uL; Eosinophils% 1.9 % (0-5); Hematocrit 26.8 % (40-54); Hemoglobin 8.5 g/dL (13.0-16.5); Lymphocyte # 2.33 X10^3/ul (0.83-4.51); Lymphocyte % 22.7 % (19-41); Mean Corp Hgb Conc 31.7 g/dL (32-36); Mean Corpuscular Hgb 28.6 pg (27.0-32.0); Mean Corpuscular Volume 90.2 fL (80-94); Monocyte# 0.78 X10^3/uL; Monocyte% 7.6 % (0-10); NRBC Flagged by Analyzer 0 % (0-5); Neutrophil % 65.3 % (47-70); Platelet Count 265 K/mm3 (150-450); RBC Distribution Width CV 15.4 % (11.6-14.6); RBC Distribution Width SD 50.3 fl (35.1-43.9); Red Blood Count 2.97 M/mm3 (4.6-6.2); White Blood Count 10.3 K/mm3 (4.4-11.0)
[2024-02-01 06:52] LABS: Bedside Glucose 101 mg/dL (74-106)
[2024-02-01 07:07] LABS: Anion Gap 3 (5-15); BUN 49 mg/dL (7-18); BUN/Creat Ratio 14.8 RATIO (10-20); Calcium,Total 8.5 mg/dL (8.5-10.1); Chloride 111 mmol/L (98-107); Creatinine, Serum 3.31 mg/dL (0.70-1.30); EST Glomerular Filtration Rate 20 mL/min (>60); Est Glom Filt Rate - Afr Amer 25 mL/min (>60); Estimated Creatinine Clearance 22.96 ml/min; Glucose 111 mg/dL (74-106); Potassium 5.6 mmol/L (3.5-5.1); Sodium Level 139 mmol/L (136-145)
[2024-02-01 09:03] VITALS: BP 159/66; PULSE 57; RESP 18; TEMP 36.9; O2SAT 99
[2024-02-01] MEDS: Furosemide 40 MG Tablet PO (09:05)
[2024-02-01] MEDS: Clopidogrel Bisulfate 75 MG Tablet PO (09:05)
[2024-02-01] MEDS: Juven (unflavored) Packet 1 PACKET PO (09:05)
[2024-02-01] MEDS: NIFEdipine 90 MG Tablet PO (09:05)
[2024-02-01] MEDS: cloNIDine HCl 0.1 MG Tablet 0.05 MG PO (09:05)
[2024-02-01] MEDS: Pantoprazole Sodium 40 MG in 0.9% Normal Saline (100mL MB+) 100 ML 330 MG IV (09:10)
[2024-02-01] MEDS: Sodium Polystyrene Sulfonate 15 GM/60 ML UDC 30 GM PO (10:44)
[2024-02-01 12:09] LABS: Bedside Glucose 203 mg/dL (74-106)
== END 2024-02-01 12:49 | disposition home or self-care (01) | DRG 378 ==
LOC: ED 12:32 → PCU 14:26
PROVIDERS: Anesthesiology; Internal Medicine Gastroenterology; Admitting Provider Student in an Organized Health Care Education/Training Program; Emergency Provider Emergency Medicine; PCP Nurse Practitioner; Visit Provider Student in an Organized Health Care Education/Training Program
PROC: 0DJ08ZZ Inspection of Upper Intestinal Tract, Via Natural or Artificial Opening Endoscopic (ICD-10-PCS; CPT 43235; principal; 2024-01-29 15:40)
DX: K31.811 Angiodysplasia of stomach and duodenum with bleeding (principal); I13.0 Hypertensive heart and chronic kidney disease with heart failure and stage 1 through stage 4 chronic kidney disease, or unspecified chronic kidney disease; D62 Acute posthemorrhagic anemia; N18.4 Chronic kidney disease, stage 4 (severe); D68.32 Hemorrhagic disorder due to extrinsic circulating anticoagulants; I50.9 Heart failure, unspecified; E11.22 Type 2 diabetes mellitus with diabetic chronic kidney disease; J44.9 Chronic obstructive pulmonary disease, unspecified; Z93.3 Colostomy status; E11.51 Type 2 diabetes mellitus with diabetic peripheral angiopathy without gangrene; F17.210 Nicotine dependence, cigarettes, uncomplicated; I25.10 Atherosclerotic heart disease of native coronary artery without angina pectoris; E78.5 Hyperlipidemia, unspecified; E87.5 Hyperkalemia; I25.2 Old myocardial infarction; Z79.82 Long term (current) use of aspirin; Z79.84 Long term (current) use of oral hypoglycemic drugs; Z79.51 Long term (current) use of inhaled steroids; Z79.899 Other long term (current) drug therapy; Z79.02 Long term (current) use of antithrombotics/antiplatelets; Z86.73 Personal history of transient ischemic attack (TIA), and cerebral infarction without residual deficits; Z95.5 Presence of coronary angioplasty implant and graft
CPT/HCPCS: 36415; 80048; 82274; 82962; 83735; 85025; 85610; 85730; 86850; 86900; 86901; 86920; 86922; 93005; 97116; 97162; 97166; 97530; 97802; 99284; J7030; P9016; A4216

== ENCOUNTER → 2024-02-06 | Outpatient (CLI) | payer BC, MEDICARE, SELFPAY ==
[2024-02-06 14:51] LABS: Absolute Lymphocyte Count 1.94 X10^3/uL (0.83-4.51); Absolute Neutrophil Count 7.8 X10^3/uL (2.0-7.7); Basophil# 0.04 X10^3/uL; Basophil% 0.4 % (0-1); Eosinophil# 0.12 X10^3/uL; Eosinophils% 1.1 % (0-5); Hematocrit 28.9 % (40-54); Hemoglobin 9.1 g/dL (13.0-16.5); Lymphocyte # 1.94 X10^3/ul (0.83-4.51); Lymphocyte % 18.1 % (19-41); Mean Corp Hgb Conc 31.5 g/dL (32-36); Mean Corpuscular Hgb 28.5 pg (27.0-32.0); Mean Corpuscular Volume 90.6 fL (80-94); Mean Platelet Vol. 9.1 fl (6.2-12.0); Monocyte# 0.82 X10^3/uL; Monocyte% 7.6 % (0-10); NRBC Flagged by Analyzer 0 % (0-5); Neutrophil # 7.76 X10^3/uL (2.7-7.7); Neutrophil % 72.2 % (47-70); Platelet Count 324 K/mm3 (150-450); RBC Distribution Width SD 49.3 fl (35.1-43.9); Red Blood Count 3.19 M/mm3 (4.6-6.2); White Blood Count 10.7 K/mm3 (4.4-11.0)
[2024-02-06 15:11] LABS: Ferritin 160 ng/mL (26-388); Iron 25 ug/dL (65-175); Iron Binding Capacity,Total 242 ug/dL (250-450); PERCENT IRON SATURATION 10.3 % (15.0-55.0)
[2024-02-06 22:32] LABS: Xtra Tube EP Lab EXTRA TUBE
== END | disposition home or self-care (01) ==
LOC: LAB 14:27
PROVIDERS: PCP Nurse Practitioner; Referring Provider Internal Medicine Hematology & Oncology; Visit Provider Internal Medicine Hematology & Oncology
DX: N18.4 Chronic kidney disease, stage 4 (severe) (principal); D63.1 Anemia in chronic kidney disease; D50.0 Iron deficiency anemia secondary to blood loss (chronic)
CPT/HCPCS: 82728; 83540; 83550; 85025

== ENCOUNTER → 2024-02-13 | Outpatient (CLI) | payer BC, MEDICARE, SELFPAY ==
[2024-02-13 08:22] LABS: Absolute Lymphocyte Count 2.16 X10^3/uL (0.83-4.51); Basophil# 0.08 X10^3/uL; Basophil% 0.7 % (0-1); Eosinophil# 0.14 X10^3/uL; Eosinophils% 1.2 % (0-5); Hematocrit 27.1 % (40-54); Hemoglobin 8.7 g/dL (13.0-16.5); Lymphocyte # 2.16 X10^3/ul (0.83-4.51); Lymphocyte % 19.2 % (19-41); Mean Corp Hgb Conc 32.1 g/dL (32-36); Mean Corpuscular Hgb 28.9 pg (27.0-32.0); Mean Platelet Vol. 9.3 fl (6.2-12.0); Monocyte# 0.75 X10^3/uL; Monocyte% 6.7 % (0-10); NRBC Flagged by Analyzer 0 % (0-5); Neutrophil # 8.04 X10^3/uL (2.7-7.7); Neutrophil % 71.7 % (47-70); Platelet Count 284 K/mm3 (150-450); RBC Distribution Width CV 15.4 % (11.6-14.6); RBC Distribution Width SD 50.1 fl (35.1-43.9); Red Blood Count 3.01 M/mm3 (4.6-6.2); White Blood Count 11.2 K/mm3 (4.4-11.0)
== END | disposition home or self-care (01) ==
PROVIDERS: PCP Nurse Practitioner; Referring Provider Nurse Practitioner Family; Visit Provider Nurse Practitioner Family
DX: D64.9 Anemia, unspecified (principal)
CPT/HCPCS: 36415; 85025

== ENCOUNTER → 2024-02-17 | Outpatient (CLI) | payer BC, MEDICARE, SELFPAY ==
[2024-02-18 00:01] LABS: ALB/GLOB Ratio 0.5 RATIO (0.9-2.4); AST(SGOT) 13 U/L (15-37); Alanine Aminotransfer ALT/SGPT 21 U/L (16-61); Albumin, Serum 2.5 g/dL (3.2-5.0); Alkaline Phosphatase 107 U/L (45-117); Anion Gap 7 (5-15); BUN 27 mg/dL (7-18); BUN/Creat Ratio 8.6 RATIO (10-20); Calcium,Total 8.2 mg/dL (8.5-10.1); Chloride 110 mmol/L (98-107); Creatinine, Serum 3.15 mg/dL (0.70-1.30); EST Glomerular Filtration Rate 22 mL/min (>60); Est Glom Filt Rate - Afr Amer 26 mL/min (>60); Glucose 286 mg/dL (74-106); Phosphorus 4.1 mg/dL (2.5-4.9); Potassium 3.8 mmol/L (3.5-5.1); Protein, Total 7.5 g/dL (6.4-8.2); Sodium Level 139 mmol/L (136-145)
[2024-02-18 00:20] LABS: Absolute Neutrophil Count 6.5 X10^3/uL (2.0-7.7); Basophil# 0.08 X10^3/uL; Basophil% 0.9 % (0-1); Eosinophil# 0.27 X10^3/uL; Eosinophils% 2.9 % (0-5); Hemoglobin 8.6 g/dL (13.0-16.5); Lymphocyte % 20.5 % (19-41); Mean Corp Hgb Conc 31.9 g/dL (32-36); Mean Corpuscular Hgb 28.6 pg (27.0-32.0); Mean Corpuscular Volume 89.7 fL (80-94); Mean Platelet Vol. 9.8 fl (6.2-12.0); Monocyte# 0.48 X10^3/uL; Monocyte% 5.2 % (0-10); NRBC Flagged by Analyzer 0 % (0-5); Neutrophil # 6.45 X10^3/uL (2.7-7.7); Neutrophil % 69.6 % (47-70); Platelet Count 310 K/mm3 (150-450); RBC Distribution Width CV 15.3 % (11.6-14.6); RBC Distribution Width SD 49.9 fl (35.1-43.9); Red Blood Count 3.01 M/mm3 (4.6-6.2); White Blood Count 9.3 K/mm3 (4.4-11.0)
== END | disposition home or self-care (01) ==
PROVIDERS: PCP Nurse Practitioner; Referring Provider Nurse Practitioner; Visit Provider Nurse Practitioner
DX: N17.9 Acute kidney failure, unspecified (principal); E11.22 Type 2 diabetes mellitus with diabetic chronic kidney disease; N18.9 Chronic kidney disease, unspecified; D63.1 Anemia in chronic kidney disease
CPT/HCPCS: 80053; 84100; 85025

== ENCOUNTER → 2024-04-09 | Outpatient (CLI) | payer BC, MEDICARE, SELFPAY ==
--- NOTE | 2024-04-09 12:16 | CT_ITS ---
PROCEDURE: CHEST WITHOUT CONTRAST REASON FOR EXAM: COPD. History of pulmonary fibrosis. TECHNIQUE: Chest CT without contrast. COMPARISON: None. FINDINGS: Hardware: None. Lymph nodes: Small mediastinal lymph nodes. Heart and Vasculature: Normal heart size. No pericardial effusion. Thoracic aorta and pulmonary arteries have normal contours; noncontrast technique limits evaluation. Coronary Artery Calcifications: Present Lungs and Airways: Hyperinflation. Tiny subpleural blebs are seen along the lateral aspect of the right upper lobe. No significant interstitial scarring is seen. Pleura: No pleural effusion. No pneumothorax. Upper Abdomen: Tiny nonobstructive calculus in the upper pole calyx of the right kidney. Bones: Degenerative changes of the thoracic spine. CT/Chest without Contrast IMPRESSION: Subpleural blebs are seen along the lateral aspect of the right upper lobe. No significant pulmonary scarring is seen. One or more dose reduction techniques were used (e.g., Automated exposure contr ol, adjustment of the mA and/or kV according to patient size, use of iterative reconstruction technique). Reading Location: [id number]
[2024-04-09 13:36] VITALS: PULSE 71; PULSE 76; PULSE 80; PULSE 81; PULSE 85; PULSE 87; PULSE 88; O2SAT 100; O2SAT 98; O2SAT 99
--- NOTE | 2024-04-09 13:39 | CPS ---
PATIENT ARRIVED FOR TESTING IN W/C AND PUSHED W/C FOR STABILITY DURING WALK TEST. HE SAID HE WAS HAVING SOME WEAKNESS IN HIS KNEE FROM AN INJURY. NO REST BREAKS TAKEN DURING TESTING. HE WALKED 815FT.
--- NOTE | 2024-04-10 10:06 | WT_ITS ---
PSN 6 Minute Walk Test 6 Minute Walk Test 6 Minute Walk Test: 6 Minute Walk Test PSN:6-Minute Walk Test Start: 04/09/24 13:36 Freq: Status: Active Protocol: RESP.6MINW Document 04/09/24 13:36 [facility] (Rec: 04/09/24 13:41 [facility] [id number]) 6 Minute Walk Test Date Performed 04/09/24 Time Performed 13:00 Height 5 ft 8 in Weight: 166 lb Weight in Pounds 166.[address]: Sandy Aaron [employer]PERATOR Assistive device Walker used: Pre-test Oxygen Delivery Room Air Method Pulse Ox (%) 98 Pulse Rate (60-100 71 beats/min) Dyspnea Trell Scale ( 0 0-10) 1st minute Oxygen Delivery Room Air Method Pulse Ox (%) 98 Pulse Rate (60-100 76 beats/min) Dyspnea Trell Scale ( 0 0-10) Number of Rests 0 Taken 2nd minute Oxygen Delivery Room Air Method Pulse Ox (%) 98 Pulse Rate (60-100 85 beats/min) Dyspnea Trell Scale ( 0 0-10) Number of Rests 0 Taken 3rd minute Oxygen Delivery Room Air Method Pulse Ox (%) 99 Pulse Rate (60-100 88 beats/min) Dyspnea Trell Scale ( 0 0-10) Number of Rests 0 Taken 4th minute Oxygen Delivery Room Air Method Pulse Ox (%) 99 Pulse Rate (60-100 87 beats/min) Dyspnea Trell Scale ( 0 0-10) Number of Rests 0 Taken 5th minute Oxygen Delivery Room Air Method Pulse Ox (%) 100 Pulse Rate (60-100 87 beats/min) Dyspnea Trell Scale ( 0 0-10) Number of Rests 0 Taken 6th minute Oxygen Delivery Room Air Method Pulse Ox (%) 99 Pulse Rate (60-100 80 beats/min) Dyspnea Trell Scale ( 0 0-10) Number of Rests 0 Taken Post-test Oxygen Delivery Room Air Method Pulse Ox (%) 99 Pulse Rate (60-100 81 beats/min) Dyspnea Trell Scale ( 0 0-10) Full Laps Walked 13 Partial Lap, Number 48 of Tiles Walked Total Distance 815 Walked (ft) 04/09/24 13:39 Cardiopulmonary Services by Angie Guardado PATIENT ARRIVED FOR TESTING IN W/C AND PUSHED W/C FOR STABILITY DURING WALK TEST. HE SAID HE WAS HAVING SOME WEAKNESS IN HIS KNEE FROM AN INJURY. NO REST BREAKS TAKEN DURING TESTING. HE WALKED 815FT. Initialized on 04/09/24 13:39 - END OF NOTE Interpretation Interpretation: The patient ambulated 815 feet over the course of 6 minutes beginning on room air with the use of a walker. Pretesting oxygen saturation was noted to be 98% on room air. With ambulation, the anjel oxygen saturation was 98%. There was no significant exertional oxygen desaturation. Recommendations Recommendations: There is no indication for the use of supplemental oxygen at this time.
== END | disposition home or self-care (01) ==
LOC: CT 12:16
PROVIDERS: PCP Nurse Practitioner; Referring Provider Nurse Practitioner Acute Care; Visit Provider Nurse Practitioner Acute Care
DX: R06.02 Shortness of breath (principal); J44.9 Chronic obstructive pulmonary disease, unspecified
CPT/HCPCS: 71250; 94618

== ENCOUNTER → 2024-04-10 | Outpatient (CLI) | payer BC, MEDICARE, SELFPAY | END | disposition home or self-care (01) | LOC: PSN 08:32 | PROVIDERS: PCP Nurse Practitioner; Referring Provider Nurse Practitioner Acute Care; Visit Provider Nurse Practitioner Acute Care | DX: J44.9 Chronic obstructive pulmonary disease, unspecified (principal) | CPT/HCPCS: 94060; 94726; 94729 ==

== ENCOUNTER 2024-04-22 13:20 | Outpatient (RCR) | payer BC, MEDICARE, SELFPAY ==
[2024-04-22 13:30] VITALS: BP 213/80; PULSE 65; RESP 18
--- NOTE | 2024-04-22 15:21 | PCM.WC.HP ---
History of Present Illness Date of Service: 04/22/24 Chief Complaint: Ulcer left ischial area and hidradenitis History of Wound: 58 year old male presents for hidradenitis. Pt states he has had issue for 40 years. Pt has had some of the areas removed by Dr. Smith in the past. Pt states his buttocks are the problem today. He has pain on his left buttocks. He has intermittent HS flairs of his right buttocks, which today is stable. He has a hx of HTN, CKD, HS, DM, anemia. Pt states he is a current smoker, smokes a pack a day. Pt also has bleeding problems. He sees marcus Shah, and is on Tremfya. He is still having issues with left and right buttocks hidradenitis. He has been seen recently by Dr. Ibarra in his office. Patient has been placing Aquacel Ag (most days, sometimes he leaves the area uncovered) which seems to be helping absorb the drainage and subsequently there is less skin irritation. He is happy and is in less pain. He has been trying to cut down on the cigarettes. He has a medical history of DM type II, uncontrolled HTN, CAD, [place], arterial insufficiency, CKD, anemia, and smoker. He has lost his vision which they believe has been from a stroke. He comes in today for further evaluation of this left ischial area. Today he denies any fever, chills, nausea or vomiting. Progress of Wound: His blood pressure is elevated, he has not taken his blood pressure medication yet today and is declining going to the ED for further evaluation. Right buttocks area from hidradenitis appears healed today. He continues to have an ulcer on his left ishial area. No erythema. No clinical sign of infection. [facility] Medical History Nicotine dependence Chronic obstructive pulmonary disease Hypertension Acute kidney injury superimposed on chronic kidney disease Iron deficiency anemia due to chronic blood loss Anemia due to chronic kidney disease Anemia requiring transfusions Diabetic hypoglycemia Impaired vision in both eyes Abnormal gait Stroke Chronic kidney disease (CKD) stage G4/A3, severely decreased glomerular filtration rate (GFR) between 15-29 mL/min/1.73 square meter and albuminuria creatinine ratio greater than 300 mg/g Anasarca Bilateral pleural effusion Symptomatic anemia Signs and symptoms of anemia Acute on chronic anemia Acute on chronic renal failure Acute on chronic blood loss anemia Iron deficiency Leukocytosis Chronic pain Congestive heart failure (CHF) Myocardial infarct Chest pain Anemia due to chronic renal failure treated with erythropoietin, stage 4 (severe) Congestive heart failure Right sided numbness Dysphagia Renal failure (ARF), acute on chronic Gout Vitamin B12 deficiency anemia Hepatitis Hypotension Vitamin D deficiency Abdominal pain Wound, surgical, nonhealing Aftercare following surgery of the circulatory system Atherosclerosis of [place] arteries of extremities with rest pain, left leg Difficulty walking Wears glasses PVD (peripheral vascular disease) Gait instability TIA (transient ischemic attack) Syncope History of echocardiogram Cardiology follow-up encounter Pressure sore of left ischium, stage 3 Resistant hypertension Dyslipidemia Nonhealing skin ulcer Peripheral arterial disease Chronic kidney disease History of diverticulitis Acute kidney injury Arthritis Kidney disease Diverticulitis Weight gain with edema DM type 2, goal HbA1c < 7.5% Malnutrition Ulcer of perineum with fat layer exposed Ulcer of scrotum Ulcer of right groin with fat layer exposed Shingles Shingles Post-operative pain Elevated serum creatinine Hemoglobin A1c greater than 8.0 percent Hypokalemia Open wound of scrotum with complication Open wound of buttock with complication Non-healing open wound of right groin Abscess, perineum Abscess of scrotal wall Abscess of right groin Complete edentulism, class III Alcohol use Diabetes Back pain History of ulceration Shortness of breath on exertion History of pain when walking History of edema Hidradenitis suppurativa of anus Suppurative hidradenitis Gastric ulcer Ulcer of perianal area with fat layer exposed Nausea and vomiting Proteinuria due to type 2 diabetes mellitus Lupus (systemic lupus erythematosus) Weakness Edema of both legs Acute post-operative pain 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 Chronic pain Hyperlipidemia Coronary artery disease Diabetes mellitus Debility Colostomy in place Complicated open wound of left thigh Open wound of left buttock with complication Abscess of buttock, left Back pain due to injury History of stress test Smoker Coronary artery disease Abscess of left thigh Wound infection Cellulitis Ankle pain Ankle pain Iron deficiency anemia Ulcer of perineum with fat layer exposed Skin ulcer of scrotum Anemia of chronic disease Ulcer of left groin with fat layer exposed Open wound of scrotum Acute postoperative anemia due to expected blood loss Hidradenitis suppurativa of anus Tobacco dependence syndrome Malnutrition Cough Pneumonia involving right lung Hydradenitis Diabetes mellitus type 2, uncontrolled, with complications Hypertension Hyperlipidemia associated with type 2 diabetes mellitus Diabetes type 2, uncontrolled COPD (chronic obstructive pulmonary disease) Hydradenitis Home Medications ?Medication ?Instructions ?Recorded ?Last Taken ?Type guselkumab 100 mg/mL subcutaneous 100 mg subcut Q4W ARTHRITIS 04/23/22 09/26/22 History syringe (Tremfya) nifedipine 90 mg tablet,extended 90 mg PO DAILY blood pressure #90 05/08/23 12/25/23 Rx release 24 hr tabs atorvastatin 80 mg tablet 80 mg PO QHS cholesterol #30 tabs 12/14/23 12/25/23 Rx albuterol sulfate 90 mcg/actuation See Rx Instructions .Route 01/01/24 Unknown Rx aerosol inhaler .COMPLEX PRN shortness of breath or wheezing #8.5 grams furosemide 40 mg tablet (Lasix) 40 mg PO BIDCM diuretic #60 tabs 01/15/24 Unknown Rx clonidine HCl 0.1 mg tablet 0.05 mg (1/2 x 0.1 mg) PO BID 01/24/24 Unknown Rx blood pressure 30 days #30 tabs clopidogrel 75 mg tablet 75 mg PO DAILY anti platelet #30 01/24/24 Unknown Rx tabs pantoprazole 40 mg tablet,delayed 40 mg PO BID #60 tabs 01/31/24 12/25/23 Rx release ascorbic acid (vitamin C) 250 mg 250 mg PO QDAY 02/06/24 Unknown History tablet cholecalciferol (vitamin D3) 250 250 mcg PO QDAY 02/06/24 Unknown History mcg (10,000 unit) capsule pyridoxine (vitamin B6) 250 mg 250 mg PO QDAY 02/06/24 Unknown History tablet docusate sodium 100 mg capsule 100 mg PO QDAY 02/13/24 Unknown History ferrous sulfate 325 mg (65 mg 325 mg PO QDAY 02/13/24 Unknown History iron) tablet dapagliflozin propanediol 10 mg 10 mg PO QAM diabetes #90 tabs 02/19/24 Unknown Rx tablet (Farxiga) carvedilol 25 mg tablet 25 mg PO BID blood pressure #60 03/23/24 Unknown Rx tabs Allergy/AdvReac Type Severity Reaction Status Date / Time Penicillins Allergy Unknown Verified 04/16/24 11:13 Sulfa (Sulfonamide Allergy Unknown Verified 04/16/24 11:13 Antibiotics) bupropion (From Wellbutrin) AdvReac Severe change in Verified 04/16/24 11:13 personality ,meanness and smoked more doxycycline AdvReac Severe Vomiting Verified 04/16/24 11:13 Family History Aunt Lung disease lung cancer Father Heart disease Hypertension Family history of high cholesterol Diabetes Mother Diabetes Daughter Epilepsy Surgical History Hx of vascular surgery History of excision of lesion History of incision and drainage History of coronary artery stent placement History of removal of cyst Hx of hernia repair History of tonsillectomy and adenoidectomy Social History household members: spouse Smoking Status: Current every day smoker tobacco type: cigarettes alcohol intake: never substance use type: does not use caffeine: Yes (7) Type: coffee additional social history: DOES NOT TAKE ASPIRIN DOES NOT TAKE IBUPROFEN ROS Constitutional Constitutional: Reports daytime sleepiness and fatigue; Denies body ache(s), chills or fever(s) Eyes Eyes: Reports as per HPI and other Details: very poor vision. Is able to see shadows ENT HEENT: Reports none Cardiovascular Cardiovascular: Denies chest pain or dyspnea Respiratory/Chest Respiratory/Chest: Denies cough or dyspnea Gastrointestinal Gastrointestinal: Reports as per HPI and other Details: Has a colostomy Genitourinary Genitourinary: Reports none Musculoskeletal Musculoskeletal: Reports back pain and stiffness Integumentary Integumentary: Reports wounds and other Details: He has a history of hidradenitis. Neurologic Neurologic: Reports loss of vision Psychiatric Psychiatric: Reports none Endocrine Endocrinology: Reports none Vital Signs Vital Signs Vital Signs: 04/22/24 13:30 Pulse Rate 65 Respiratory Rate 18 Blood Pressure 213/80 H Blood Pressure Mean 124 Blood Pressure Source Monitor Blood Pressure Position Sitting Blood Pressure Location Left Arm Oxygen Delivery Method Room Air Physical Exam Const alert and oriented x3 General Appearance: cooperative HEENT normocephalic Head and Scalp: atraumatic Eyes General Eye: normal appearance of both eyes Neck full ROM Resp normal respiratory effort and normal air movement Effort and Inspection: able to speak in complete sentences Cardio regular rate and regular rhythm GI GI Narrative: colostomy in place Back/Spine normal ROM Extremity full ROM and normal capillary refill Skin Wound Narrative: Left ischial ulcer with pink wound bed. [place] wound is clear. Right buttocks area appears healed today. Neuro oriented x3 and moves all extremities Psych thought process normal and cooperative Appearance: unkempt Attitude: calm Speech: normal speech Debridement Note Debridement Note Wound debrided: ischial ulcer Laterality: Left Wound Grade/Stage: Stage III Type of Debridement: Excisional debridement Anesthesia Used: 5% Lidocaine Gel Depth: Down to and including healthy tissue and in the subcutaneous layer Percentage of wound debrided: 100 Instrument Used: 5mm curette Tissue Removed: Non viable tissue and slough Severity: Fat Layer Exposed Amount of bleeding with debridement: Mild Bleeding Controlled with: Compression and gauze Patient tolerated procedure: Patient tolerated procedure well Post-Debridement Measurements and Additional Note: Post-Debridement Measurements/Treatment - Nurse 1 - General Ulcer Assessment Start: 04/22/24 13:29 Freq: Status: Active Protocol: [id number] Activity Type Activity Date Activity User E-sign Co-sign Detail Recorded Client Recorded Date Recorded By Document 04/22/24 13:30 [employer] [id number] 04/22/24 13:43 KW 04/22/24 13:30 WC - Today's Visit Information Type of service Follow-up Visit (Physician/MAP PLOTTER ) Arrival Mode Ambulatory, Walker Accompanied by daughter Patient Identification Verified (Name & Yes ) Vital Signs Pulse Rate (60-100) 65 Pulse Location Monitor Respiratory Rate (12-18) 18 Respiratory rate source Observation Oxygen Delivery Method Room Air Blood Pressure (90/60-120/80) 213/80 H Blood Pressure Mean 124 Source Monitor Position Sitting Blood Pressure Location Left Arm History Since Last Visit- (Skip if this is Patient's initial visit) Left Footwear Regular Shoe Right Footwear Regular Shoe Pain Scale: 0-10 Numeric Is Patient Pain Free? Yes - Nurse 1 - General Ulcer Measurement Start: 04/22/24 13:29 Freq: Status: Active Protocol: Activity Type Activity Date Activity User E-sign Co-sign Detail Recorded Client Recorded Date Recorded By Document 04/22/24 13:30 KW [id number] 04/22/24 13:43 KW 04/22/24 13:30 Wound Center Nurse 1 #11 rt buttock/ischium -Current Size (cm) - Length 1 -Current Size (cm) - Width 0.5 -Current Size (cm) - Depth 0.3 -Total Square Cm 0.5 -Date of Last Picture (Recall this 04/22/24 field) -Exudate Amt Small -Exudate Type Serosanguineous -Wound Margin Thickened -Granulation Amt Large (67-100%) -Granulation Quality [place] -Texture ([place]-wound Skin Appearance) Assessed, Scarring -Moisture ([place]-wound Skin Appearance) Assessed,Dry/ Scaly -Color ([place]-wound Skin Appearance) Assessed -Temperature ([place]-wound Skin No Abnormality Appearance) (Pt Warm) -Tenderness on Palpation ([place]-wound No Skin Appearance) -Ulcer Cleansing Rinsed/ Irrigated with Saline -Foul Odor after Cleansing No -Anesthetic Used 5% Lidocaine Gel #10 L buttock/ischium -Current Size (cm) - Length 0.5 -Current Size (cm) - Width 1 -Current Size (cm) - Depth 0.1 -Total Square Cm 0.5 -Date of Last Picture (Recall this 04/22/24 field) -Exudate Amt None Present -Wound Margin Distinct, Outline Attached -Granulation Amt Large (67-100%) -Granulation Quality [place] -Texture ([place]-wound Skin Appearance) Assessed -Moisture ([place]-wound Skin Appearance) Assessed,Dry/ Scaly -Color ([place]-wound Skin Appearance) Assessed -Temperature ([place]-wound Skin No Abnormality Appearance) (Pt Warm) -Tenderness on Palpation ([place]-wound No Skin Appearance) -Ulcer Cleansing Rinsed/ Irrigated with Saline -Foul Odor after Cleansing No -Anesthetic Used 5% Lidocaine Gel WC - Nurse 2 - General Ulcer CM Notes Start: 04/22/24 13:29 Freq: Status: Active Protocol: Activity Type Activity Date Activity User E-sign Co-sign Detail Recorded Client Recorded Date Recorded By Document 04/22/24 14:14 [id number] 04/22/24 14:19 04/22/24 14:14 Wound Center Nurse 2 #11 rt buttock/ischium -Time 14:14 -Correct Patient Yes -Correct Side, Site, Position Yes -Tunneling No -Undermining/Tunneling No -Circular Undermining No -Wound/Ulcer Outcome Healed- Epithelialized -Debridement - Subq, 1st 20sq cm No #10 L buttock/ischium -Time 14:18 -Correct Patient Yes -Correct Side, Site, Position Yes -Correct Procedure Yes -Procedure Performed Yes -Type of Procedure Debridement -Clinical Debridement Subcutaneous -Tissue Removed Subcutaneous -Post Debridement (cm) - Length 0.7 -Post Debridement (cm) - Width 0.8 -Post Debridement (cm) - Depth 0.1 -Total Square (Post) (cm) 0.56 -Area of Debridement (cm) - Length 0.7 -Area of Debridement (cm) - Width 0.8 -Total Square (Area) (cm) 0.56 -Tunneling No -Undermining/Tunneling No -Circular Undermining No -Wound/Ulcer Outcome Not Healed -Ulcer Cleansing Rinsed/ Irrigated with Saline -Foul Odor after Cleansing No -Bioengineered Tissue No -Bleeding Controlled with Pressure -Treatment Response Procedure Tolerated Well -Debridement - Subq, 1st 20sq cm Yes Pain Scale: 0-10 Numeric Is Patient Pain Free? Yes - Nurse 3 - General Ulcer D/C NN Start: 04/22/24 13:29 Freq: Status: Active Protocol: Activity Type Activity Date Activity User E-sign Co-sign Detail Recorded Client Recorded Date Recorded By Document 04/22/24 14:22 [id number] 04/22/24 14:23 04/22/24 14:22 Wound Care Center Nurse 3 #10 L buttock/ischium -Primary Dressing Applied Promogran Miranda Matter, Silicone Border Foam 4x4 -Other Dressing lightly moistened miranda -Promogran Miranda Matter 1 -Silicone Border Foam 4x4 1 Pain Scale: 0-10 Numeric Is Patient Pain Free? Yes - Visit Discharge Discharge Condition Stable Ambulatory Status Ambulatory, Walker Transportation Private Auto Medication Reconcilliation completed & No provided to patient/care provider Clinical Summary of Care Provided Yes Charges/Coding Visit Charges Office Visits / Consults: 73433 OV L3 Est 20min (25 modifier) Procedures Integumentary [id number]: [id number] Ayla subq tissue 20 sq cm/< Assessment/Plan Assessment/Plan (1) Decubitus ulcer of left perineal ischial region, stage 3: CODE(S): L89.323 - Pressure ulcer of left buttock, stage 3 (2) Hydradenitis: CODE(S): L73.2 - Hidradenitis suppurativa (3) Diabetes: CODE(S): E11.9 - Type 2 diabetes mellitus without complications QUALIFIERS: Diabetes mellitus type: type 2 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 insulin use: without fdc use Diabetes mellitus complication status: with kidney complications Diabetes mellitus complication detail: with chronic kidney disease Chronic kidney disease stage: stage 4 (GFR 15-29) Qualified Code(s): E11.22 - Type 2 diabetes mellitus with diabetic chronic kidney disease; N18.4 - Chronic kidney disease, stage 4 (severe) (4) Nicotine dependence: CODE(S): F17.200 - Nicotine dependence, unspecified, uncomplicated (5) Hypertension: CODE(S): I10 - Essential (primary) hypertension QUALIFIERS: Hypertension type: primary hypertension Qualified Code(s): I10 - Essential (primary) hypertension PLAN: Plan Patient evaluated at the wound healing center. Wound care - Moistened Miranda covered by [place] [employer] daily after washing area with soap and water. Encouraged to off load as much as possible. Advised him to go to the ED for further evaluation and treatment of his hypertension. Patient is declininge. Recommend that he start taking his blood pressure medication on a regular basis to help control his BP. Follow up one week. Call or come in sooner if develop any concerns.
--- NOTE | 2024-04-23 10:11 | WC ---
PHOTO 04/22/24 LEFT BUTTOCK
--- NOTE | 2024-04-23 11:09 | WC ---
PHOTO 04/22/24 RIGHT BUTTOCKS
== END 2024-05-11 23:59 | disposition home or self-care (01) ==
LOC: WC 13:20
PROVIDERS: PCP Nurse Practitioner; Referring Provider Nurse Practitioner Family; Visit Provider Nurse Practitioner Family
DX: E11.622 Type 2 diabetes mellitus with other skin ulcer (principal); L89.223 Pressure ulcer of left hip, stage 3; Z93.3 Colostomy status; N18.4 Chronic kidney disease, stage 4 (severe); I50.9 Heart failure, unspecified; I13.0 Hypertensive heart and chronic kidney disease with heart failure and stage 1 through stage 4 chronic kidney disease, or unspecified chronic kidney disease; J44.9 Chronic obstructive pulmonary disease, unspecified; E11.22 Type 2 diabetes mellitus with diabetic chronic kidney disease; E11.51 Type 2 diabetes mellitus with diabetic peripheral angiopathy without gangrene; L73.2 Hidradenitis suppurativa; F17.210 Nicotine dependence, cigarettes, uncomplicated; D50.0 Iron deficiency anemia secondary to blood loss (chronic); Z79.84 Long term (current) use of oral hypoglycemic drugs; D63.1 Anemia in chronic kidney disease; E78.5 Hyperlipidemia, unspecified; I25.10 Atherosclerotic heart disease of native coronary artery without angina pectoris; Z79.899 Other long term (current) drug therapy
CPT/HCPCS: 11042; 99213; G0463

== ENCOUNTER → 2024-04-28 | Outpatient (CLI) | payer MEDICARE, SELFPAY ==
[2024-04-28 22:02] LABS: Absolute Lymphocyte Count 2.26 X10^3/uL (0.83-4.51); Absolute Neutrophil Count 5.7 X10^3/uL (2.0-7.7); Basophil# 0.06 X10^3/uL; Basophil% 0.6 % (0-1); Eosinophil# 0.34 X10^3/uL; Eosinophils% 3.7 % (0-5); Hematocrit 29.1 % (40-54); Hemoglobin 9.3 g/dL (13.0-16.5); Lymphocyte # 2.26 X10^3/ul (0.83-4.51); Lymphocyte % 24.4 % (19-41); Mean Corpuscular Hgb 29.7 pg (27.0-32.0); Mean Platelet Vol. 9.8 fl (6.2-12.0); Monocyte# 0.85 X10^3/uL; Monocyte% 9.2 % (0-10); NRBC Flagged by Analyzer 0 % (0-5); Neutrophil # 5.74 X10^3/uL (2.7-7.7); Neutrophil % 61.8 % (47-70); Platelet Count 305 K/mm3 (150-450); RBC Distribution Width CV 15.2 % (11.6-14.6); RBC Distribution Width SD 51.6 fl (35.1-43.9); Red Blood Count 3.13 M/mm3 (4.6-6.2); White Blood Count 9.3 K/mm3 (4.4-11.0)
[2024-04-28 22:25] LABS: D-Dimer Quantitative (DVT/PE) 1.76 FEU/ug/m (0.27-0.49)
[2024-04-28 22:28] LABS: ALB/GLOB Ratio 0.9 RATIO (0.9-2.4); AST(SGOT) 13 U/L (<=37); Alanine Aminotransfer ALT/SGPT 11 U/L (<=46); Albumin, Serum 3.4 g/dL (3.4-4.8); Alkaline Phosphatase 123 U/L (40-129); Anion Gap 11 (5-15); BUN 26 mg/dL (4-19); BUN/Creat Ratio 6.9 RATIO (10-20); Calcium,Total 8.5 mg/dL (7.6-11.0); Carbon Dioxide 19.9 mmol/L (21.0-32.0); Chloride 106 mmol/L (98-108); Creatinine, Serum 3.77 mg/dL (0.70-1.20); EST Glomerular Filtration Rate 18 (>60); Globulin 3.9 g/dL (2.2-4.2); Glucose 59 mg/dL (70-99); Potassium 4.6 mmol/L (3.3-5.1); Protein, Total 7.3 g/dL (5.9-8.4); Sodium Level 137 mmol/L (133-145); Total Bilirubin 0.25 mg/dL (0.00-1.30)
[2024-04-28 22:31] LABS: Hemoglobin A1c 5.9 % (<=5.6)
[2024-04-28 22:41] LABS: Pro- Brain NATRIURETIC PEPTIDE 41330 pg/mL (<=900)
== END | disposition home or self-care (01) ==
PROVIDERS: PCP Nurse Practitioner; Referring Provider Nurse Practitioner; Visit Provider Nurse Practitioner
DX: R63.5 Abnormal weight gain (principal); J44.9 Chronic obstructive pulmonary disease, unspecified; E11.9 Type 2 diabetes mellitus without complications; R19.00 Intra-abdominal and pelvic swelling, mass and lump, unspecified site; R06.02 Shortness of breath
CPT/HCPCS: 80053; 83036; 83880; 84443; 85025; 85379

== ENCOUNTER 2024-04-29 10:31 | Inpatient (IN) | payer MEDICARE, SELFPAY ==
[2024-04-29] VITALS (11 sets, daily range): BP systolic 169–226; BP diastolic 52–105; PULSE 63–78; RESP 15–22; TEMP 36.5–37; O2SAT 94–99; BMI 26.1
--- NOTE | 2024-04-29 11:00 | EKG12_ITS ---
Test Reason : SOB Blood Pressure : */* mmHG Vent. Rate : 68 BPM Atrial Rate : 68 BPM P-R Int : 146 ms QRS Dur : 88 ms QT Int : 458 ms P-R-T Axes : 59 21 151 degrees QTcB Int : 487 ms Normal sinus rhythm Minimal voltage criteria for LVH, may be normal variant ( Sokolow-White ) Septal infarct (cited on or before 02-Oct-2022) ST & T wave abnormality, consider lateral ischemia Abnormal ECG When compared with ECG of 29-Jan-2024 04:57, No significant change was found Confirmed by NOE RODRIGUEZ, STELLA ([id number]), clinical editor GILLIAN GONCALVES ([id number]) on 05/04/2024 7:38:23 AM Referred By: Confirmed By: STELLA LIU MD
--- NOTE | 2024-04-29 11:29 | RAD_ITS ---
PROCEDURE: CHEST PA AND LATERAL 04/29/2024 REASON FOR EXAM: SOB History of COPD and CHF. TECHNIQUE: Frontal and lateral views of the chest. COMPARISON: Comparison is made with prior study dated January 12, 2024. FINDINGS: EKG electrodes are seen. Borderline cardiomegaly. Hyperinflation. Pulmonary vasculature is congested. Degenerative changes are identified within the thoracic spine. RAD/Chest PA and Lateral IMPRESSION: Hyperinflation. Pulmonary vascular congestion and mild CHF. Borderline cardiomegaly. Reading Location: [place] [id number]
--- NOTE | 2024-04-29 11:37 | EX.ED.DYSGE1 ---
HPI History of Present Illness Chief Complaint: Shortness of Breath Narrative Narrative: Patient is a 58-year-old male with history of type 2 diabetes, hypertension, chronic kidney disease, iron deficiency anemia, CVA, CHF, colostomy in place, CAD who presented to the emergency department with a chief complaint of shortness of breath and abnormal blood work obtained in the outpatient setting. Patient's significant other at bedside states that they were told to come to the emergency department as his blood work was abnormal and was ultimately sent here for further evaluation management. They state that for the last several days he has been having worsening shortness of breath with exertion and notes that he has been unable to lie flat secondary to feeling of shortness of breath. [facility] Medical History DM type 2, goal HbA1c < 7.5% Nicotine dependence Chronic obstructive pulmonary disease Hypertension Acute kidney injury superimposed on chronic kidney disease Iron deficiency anemia due to chronic blood loss Anemia due to chronic kidney disease Anemia requiring transfusions Diabetic hypoglycemia Impaired vision in both eyes Abnormal gait Stroke Chronic kidney disease (CKD) stage G4/A3, severely decreased glomerular filtration rate (GFR) between 15-29 mL/min/1.73 square meter and albuminuria creatinine ratio greater than 300 mg/g Anasarca Bilateral pleural effusion Symptomatic anemia Signs and symptoms of anemia Acute on chronic anemia Acute on chronic renal failure Acute on chronic blood loss anemia Iron deficiency Leukocytosis Chronic pain Congestive heart failure (CHF) Myocardial infarct Chest pain Anemia due to chronic renal failure treated with erythropoietin, stage 4 (severe) Congestive heart failure Right sided numbness Dysphagia Renal failure (ARF), acute on chronic Gout Vitamin B12 deficiency anemia Hepatitis Hypotension Vitamin D deficiency Abdominal pain Wound, surgical, nonhealing Aftercare following surgery of the circulatory system Atherosclerosis of [place] arteries of extremities with rest pain, left leg Difficulty walking Wears glasses PVD (peripheral vascular disease) Gait instability TIA (transient ischemic attack) Syncope History of echocardiogram Cardiology follow-up encounter Pressure sore of left ischium, stage 3 Resistant hypertension Dyslipidemia Nonhealing skin ulcer Peripheral arterial disease Chronic kidney disease History of diverticulitis Acute kidney injury Arthritis Kidney disease Diverticulitis Weight gain with edema Malnutrition Ulcer of perineum with fat layer exposed Ulcer of scrotum Ulcer of right groin with fat layer exposed Shingles Shingles Post-operative pain Elevated serum creatinine Hemoglobin A1c greater than 8.0 percent Hypokalemia Open wound of scrotum with complication Open wound of buttock with complication Non-healing open wound of right groin Abscess, perineum Abscess of scrotal wall Abscess of right groin Complete edentulism, class III Alcohol use Diabetes Back pain History of ulceration Shortness of breath on exertion History of pain when walking History of edema Hidradenitis suppurativa of anus Suppurative hidradenitis Gastric ulcer Ulcer of perianal area with fat layer exposed Nausea and vomiting Proteinuria due to type 2 diabetes mellitus Lupus (systemic lupus erythematosus) Weakness Edema of both legs Acute post-operative pain 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 Chronic pain Hyperlipidemia Coronary artery disease Diabetes mellitus Debility Colostomy in place Complicated open wound of left thigh Open wound of left buttock with complication Abscess of buttock, left Back pain due to injury History of stress test Smoker Coronary artery disease Abscess of left thigh Wound infection Cellulitis Ankle pain Ankle pain Iron deficiency anemia Ulcer of perineum with fat layer exposed Skin ulcer of scrotum Anemia of chronic disease Ulcer of left groin with fat layer exposed Open wound of scrotum Acute postoperative anemia due to expected blood loss Hidradenitis suppurativa of anus Tobacco dependence syndrome Malnutrition Cough Pneumonia involving right lung Hydradenitis Diabetes mellitus type 2, uncontrolled, with complications Hypertension Hyperlipidemia associated with type 2 diabetes mellitus Diabetes type 2, uncontrolled COPD (chronic obstructive pulmonary disease) Hydradenitis Home Medications ?Medication ?Instructions ?Recorded ?Last Taken ?Type guselkumab 100 mg/mL subcutaneous 100 mg subcut Q4W ARTHRITIS 04/23/22 09/26/22 History syringe (Tremfya) nifedipine 90 mg tablet,extended 90 mg PO DAILY blood pressure #90 05/08/23 12/25/23 Rx release 24 hr tabs atorvastatin 80 mg tablet 80 mg PO QHS cholesterol #30 tabs 12/14/23 12/25/23 Rx albuterol sulfate 90 mcg/actuation See Rx Instructions .Route 01/01/24 Unknown Rx aerosol inhaler .COMPLEX PRN shortness of breath or wheezing #8.5 grams furosemide 40 mg tablet (Lasix) 40 mg PO BIDCM diuretic #60 tabs 01/15/24 Unknown Rx clonidine HCl 0.1 mg tablet 0.05 mg (1/2 x 0.1 mg) PO BID 01/24/24 Unknown Rx blood pressure 30 days #30 tabs clopidogrel 75 mg tablet 75 mg PO DAILY anti platelet #30 01/24/24 Unknown Rx tabs pantoprazole 40 mg tablet,delayed 40 mg PO BID #60 tabs 01/31/24 12/25/23 Rx release ascorbic acid (vitamin C) 250 mg 250 mg PO QDAY 02/06/24 Unknown History tablet cholecalciferol (vitamin D3) 250 250 mcg PO QDAY 02/06/24 Unknown History mcg (10,000 unit) capsule pyridoxine (vitamin B6) 250 mg 250 mg PO QDAY 02/06/24 Unknown History tablet docusate sodium 100 mg capsule 100 mg PO QDAY 02/13/24 Unknown History ferrous sulfate 325 mg (65 mg 325 mg PO QDAY 02/13/24 Unknown History iron) tablet dapagliflozin propanediol 10 mg 10 mg PO QAM diabetes #90 tabs 02/19/24 Unknown Rx tablet (Farxiga) carvedilol 25 mg tablet 25 mg PO BID blood pressure #60 04/28/24 Unknown Rx tabs Allergy/AdvReac Type Severity Reaction Status Date / Time Penicillins Allergy Unknown Verified 04/29/24 10:35 Sulfa (Sulfonamide Allergy Unknown Verified 04/29/24 10:35 Antibiotics) bupropion (From Wellbutrin) AdvReac Severe change in Verified 04/29/24 10:35 personality ,meanness and smoked more doxycycline AdvReac Severe Vomiting Verified 04/29/24 10:35 Family History Aunt Lung disease lung cancer Father Heart disease Hypertension Family history of high cholesterol Diabetes Mother Diabetes Daughter Epilepsy Surgical History Hx of vascular surgery History of excision of lesion History of incision and drainage History of coronary artery stent placement History of removal of cyst Hx of hernia repair History of tonsillectomy and adenoidectomy Social History household members: spouse Smoking Status: Current every day smoker tobacco type: cigarettes alcohol intake: never substance use type: does not use caffeine: Yes (7) Type: coffee additional social history: DOES NOT TAKE ASPIRIN DOES NOT TAKE IBUPROFEN ROS ROS ED ROS Narrative Constitutional: Denies fevers, chills, headaches, lightness, dizziness Cardiovascular: Denies chest pain or palpitations Respiratory: complains of shortness of breath with exertion denies cough Abdomen: Denies abdominal pain nausea vomit diarrhea, states that he has good output in his colostomy : Denies any urinary symptoms Neurological: Denies numbness going to come tingling Musculoskeletal: Denies back pain, complains of bilateral lower extremity swelling as noted above Skin: Denies rashes or lesions EXAM Physical Exam Narrative Exam Narrative: General: Patient is lying in bed rest comfortably did not appear to be in acute distress Head: Atraumatic, normocephalic Eyes: PERRL bilaterally, EOMI bilateral, no conjunctival injection noted Neck: Soft, supple, trachea midline Cardiovascular: Regular rate rhythm no murmurs gallops rubs noted Respiratory: Diminished breath sounds bilaterally at the bases Abdomen: Soft, nondistended, no tenderness to palpation, colostomy site pink moist states that it has been chronically outpouching like it is here today Extremities: +2 pitting edema in the bilateral lower extremities, +4/5 strength noted to bilateral upper and lower extremities Neurological: Patient following commands knew that he was at [facility] year is 2024 Skin: Warm, dry no rashes or lesions noted Const Vital Signs: 04/29/24 10:33 04/29/24 10:35 04/29/24 11:33 Temperature 97.8 F 97.8 F Temperature Source Oral Oral Pulse Rate 78 78 Respiratory Rate 22 H 22 H Respiratory Effort Short of Breath Respiratory Depth Normal Respiratory Pattern Tachypnea Blood Pressure 193/52 H 193/52 H Blood Pressure Mean 99 99 Pulse Ox 97 97 Oxygen Delivery Method Room Air Room Air 04/29/24 11:35 04/29/24 13:01 Temperature 97.8 F 97.8 F Temperature Source Temporal Oral Pulse Rate 70 68 Respiratory Rate 20 H 16 Respiratory Effort Respiratory Depth Respiratory Pattern Blood Pressure 180/63 H 204/77 H Blood Pressure Mean 102 119 Pulse Ox 97 96 Oxygen Delivery Method Room Air Room Air MDM MDM MDM Narrative Medical decision making narrative: Patient is a 58-year-old male who presented to the emergency department chief complaint of shortness of breath with exertion and abnormal blood work. On the differential diagnose includes but not limited to ACS, CHF exacerbation, pneumonia, pneumothorax. Once workup is obtained reviewed he will be reevaluated. Patient's echocardiogram from 12/11/2023 was reviewed and showed ejection fraction of 60%. Normal aortic root no pericardial effusion noted. Patient CBC was reviewed from yesterday which showed no evidence leukocytosis white blood cell count was normal at 9.3, hemoglobin stable at 9.3, plate count was noted be 305. Patient's sodium was noted be 137, potassium normal at 4.6, creatinine was elevated 3.77 where he has underlying chronic kidney disease, glucose was noted to be 59, AST and ALT were 13 and 11 respectively. Patient proBNP was 41,330, troponins will be added on. Patient TSH normal at 3.57. Patient D-dimer was elevated 1.76 however his GFR is low at 18 and the patient does not need any more IV fluids at this point in time given his CHF exacerbation therefore we will hold off on CTA of his chest as I do believe the shortness of breath is likely related to an elevated proBNP of 41,330 and will add a chest x-ray on as well. Patient be given 40 mg IV Lasix. Patient's troponin was noted be 57 delta troponin will be obtained he does not have any chest pain currently. Patient chest x-ray reviewed by myself by radiology showed hyperinflation and pulm vas congestion mild CHF borderline cardiomegaly. At this point time will discuss case with hospitalist for admission. Discussed case with hospitalist Dr. Smith who accept patient for admission. I notified the patient he is agreeable this plan all question concerns answered. Lab Data Labs: Laboratory Results - last 24 hr 04/29/24 11:29 Troponin T High Sens 57 H* Radiography Diagnostic Testing: Clinical Impression(s) from Imaging Studies Chest X-Ray 04/29/24 11:29 IMPRESSION: Hyperinflation. Pulmonary vascular congestion and mild CHF. Borderline cardiomegaly. Reading Location: [facility] Discharge Plan Triage Chief Complaint: Shortness of Breath ED Provider: Simone Bardales Dx/Rx/DC Orders Clinical Impression: CHF (congestive heart failure), Dyspnea on exertion, Bilateral leg edema, Myocardial infarction type 2 Prescriptions: No Action ascorbic acid (vitamin C) 250 mg tablet 250 mg PO QDAY pyridoxine (vitamin B6) 250 mg tablet 250 mg PO QDAY cholecalciferol (vitamin D3) 250 mcg (10,000 unit) capsule 250 mcg PO QDAY ferrous sulfate 325 mg (65 mg iron) tablet 325 mg PO QDAY docusate sodium 100 mg capsule 100 mg PO QDAY Tremfya 100 mg/mL syringe 100 mg subcut Q4W Patient Comments: RADHA GÓMEZ THIS IS EVERY 8 WEEKS, DOESNT REMEMBER LAST DOSE clopidogrel 75 mg tablet 75 mg PO DAILY Qty: 30 4RF clonidine HCl 0.1 mg tablet 0.05 mg PO BID 30 Days Qty: 30 4RF carvedilol 25 mg tablet 25 mg PO BID Qty: 60 12RF Rx Instructions: must administer with a meal/food pantoprazole 40 mg Tablet,Delayed Release (Dr/Ec) 40 mg PO BID Qty: 60 3RF atorvastatin 80 mg Tablet 80 mg PO QHS Qty: 30 2RF albuterol sulfate 90 mcg/actuation HFA aerosol inhaler See Rx Instructions .ROUTE .COMPLEX PRN (Reason: shortness of breath or wheezing) Qty: 8.5 0RF Rx Instructions: 1-2 puffs every 4-6 hours as needed for shortness of breath or wheezing furosemide [Lasix] 40 mg tablet 40 mg PO BIDCM Qty: 60 0RF nifedipine 90 mg tablet extended release 24hr 90 mg PO DAILY Qty: 90 3RF dapagliflozin propanediol [Farxiga] 10 mg tablet 10 mg PO QAM Qty: 90 3RF Primary Care Provider: Adina Bhat NP Referrals: Adina Bhat NP, [facility] [Primary Care Provider] - Print Language: Egyptian Disposition Disposition: Acute Care Hospital [facility]
[2024-04-29 12:09] LABS: Troponin T High Sensitivity 57 ng/L (<=22)
[2024-04-29] MEDS: Furosemide 40 MG/4 ML Vial IV (13:43)
--- NOTE | 2024-04-29 13:44 | HP.PCM.HOS_ITS ---
[facility] - General General Date of Admission: 04/29/24 Date of Service: 04/29/24 Chief Complaint: Worsening shortness of breath and lower extremity swelling HPI Narrative SVEN DUONG, is a 58 M who presented to [facility] ED on 04/29/2024 with worsening shortness of breath and lower extremity swelling. Medical history is significant for CKD stage IV, PAD with left SFA stent placement in 06/04, mild CVA with moderate bilateral carotid stenosis, nonobstructive CAD, hypertension, hyperlipidemia, chronic anemia, recurrent upper GI bleed secondary to erosive esophagitis, and severe hidradenitis suppurativa with chronic thigh and buttock wounds s/p colostomy placement. He saw his PCP yesterday and noted that he has had worsening shortness of breath with exertion, orthopnea, cough with congestion and weight gain over the past few weeks. Given concern for new onset heart failure, labs were obtained and showed BNP 09423 and D-dimer 1.76, so patient was sent to the ED for further evaluation. In the ED patient was hypertensive to the 190s to 200 systolic but otherwise stable and breathing comfortably on room air at rest. Chest x-ray showed pulmonary vascular congestion and mild CHF with borderline cardiomegaly along with hyperinflation. Creatinine was 3.77 (baseline around 3.4) so CTA chest was not done. Given all of these findings, hospitalist was contacted for admission. I saw the patient at bedside in the ED, was present. Patient was mildly fatigued appearing but otherwise sitting up comfortably at the edge of the bed, conversing normally and in no acute distress. He was breathing comfortably on room air at rest. He did note significantly worsening lower extremity edema over the past several days, along with mild shortness of breath with exertion and orthopnea. He denies any significant shortness of breath with minimal exertion or presyncopal symptoms. Has been taking his Lasix at home as prescribed with decent urine output. Denies any other acute concerns at this time. [facility] Medical History DM type 2, goal HbA1c < 7.5% Nicotine dependence Chronic obstructive pulmonary disease Hypertension Acute kidney injury superimposed on chronic kidney disease Iron deficiency anemia due to chronic blood loss Anemia due to chronic kidney disease Anemia requiring transfusions Diabetic hypoglycemia Impaired vision in both eyes Abnormal gait Stroke Chronic kidney disease (CKD) stage G4/A3, severely decreased glomerular filtration rate (GFR) between 15-29 mL/min/1.73 square meter and albuminuria creatinine ratio greater than 300 mg/g Anasarca Bilateral pleural effusion Symptomatic anemia Signs and symptoms of anemia Acute on chronic anemia Acute on chronic renal failure Acute on chronic blood loss anemia Iron deficiency Leukocytosis Chronic pain Congestive heart failure (CHF) Myocardial infarct Chest pain Anemia due to chronic renal failure treated with erythropoietin, stage 4 (severe) Congestive heart failure Right sided numbness Dysphagia Renal failure (ARF), acute on chronic Gout Vitamin B12 deficiency anemia Hepatitis Hypotension Vitamin D deficiency Abdominal pain Wound, surgical, nonhealing Aftercare following surgery of the circulatory system Atherosclerosis of [place] arteries of extremities with rest pain, left leg Difficulty walking Wears glasses PVD (peripheral vascular disease) Gait instability TIA (transient ischemic attack) Syncope History of echocardiogram Cardiology follow-up encounter Pressure sore of left ischium, stage 3 Resistant hypertension Dyslipidemia Nonhealing skin ulcer Peripheral arterial disease Chronic kidney disease History of diverticulitis Acute kidney injury Arthritis Kidney disease Diverticulitis Weight gain with edema Malnutrition Ulcer of perineum with fat layer exposed Ulcer of scrotum Ulcer of right groin with fat layer exposed Shingles Shingles Post-operative pain Elevated serum creatinine Hemoglobin A1c greater than 8.0 percent Hypokalemia Open wound of scrotum with complication Open wound of buttock with complication Non-healing open wound of right groin Abscess, perineum Abscess of scrotal wall Abscess of right groin Complete edentulism, class III Alcohol use Diabetes Back pain History of ulceration Shortness of breath on exertion History of pain when walking History of edema Hidradenitis suppurativa of anus Suppurative hidradenitis Gastric ulcer Ulcer of perianal area with fat layer exposed Nausea and vomiting Proteinuria due to type 2 diabetes mellitus Lupus (systemic lupus erythematosus) Weakness Edema of both legs Acute post-operative pain 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 Chronic pain Hyperlipidemia Coronary artery disease Diabetes mellitus Debility Colostomy in place Complicated open wound of left thigh Open wound of left buttock with complication Abscess of buttock, left Back pain due to injury History of stress test Smoker Coronary artery disease Abscess of left thigh Wound infection Cellulitis Ankle pain Ankle pain Iron deficiency anemia Ulcer of perineum with fat layer exposed Skin ulcer of scrotum Anemia of chronic disease Ulcer of left groin with fat layer exposed Open wound of scrotum Acute postoperative anemia due to expected blood loss Hidradenitis suppurativa of anus Tobacco dependence syndrome Malnutrition Cough Pneumonia involving right lung Hydradenitis Diabetes mellitus type 2, uncontrolled, with complications Hypertension Hyperlipidemia associated with type 2 diabetes mellitus Diabetes type 2, uncontrolled COPD (chronic obstructive pulmonary disease) Hydradenitis Home Medications ?Medication ?Instructions ?Recorded ?Last Taken ?Type guselkumab 100 mg/mL subcutaneous 100 mg subcut Q4W AR THRITIS 04/23/22 04/23/24 History syringe (Tremfya) nifedipine 90 mg tablet,extended 90 mg PO DAILY blood pressure #90 05/08/23 04/28/24 Rx release 24 hr tabs atorvastatin 80 mg tablet 80 mg PO QHS cholesterol #30 tabs 12/14/23 12/25/23 Rx albuterol sulfate 90 mcg/actuation See Rx Instructions .Route 01/01/24 Unknown Rx aerosol inhaler .COMPLEX PRN shortness of br eath or wheezing #8.5 grams furosemide 40 mg tablet (Lasix) 40 mg PO BIDCM diureti c #60 tabs 01/15/24 04/28/24 Rx clonidine HCl 0.1 mg tablet 0.05 mg (1/2 x 0.1 mg) PO BID 01/24/24 04/28/24 Rx blood pressure 30 days #30 tabs clopidogrel 75 mg tablet 75 mg PO DAILY anti platelet #30 01/24/24 04/28/24 Rx tabs pantoprazole 40 mg tablet,delayed 40 mg PO BID #60 tab s 01/31/24 04/28/24 Rx release ascorbic acid (vitamin C) 250 mg 250 mg PO DAILY 02/0504/28/24 History tablet cholecalciferol (vitamin D3) 250 250 mcg PO DAILY 01/1204/28/24 History mcg (10,000 unit) capsule docusate sodium 100 mg capsule 100 mg PO DAILY 5 04/28/24 History ferrous sulfate 325 mg (65 mg 325 mg PO DAILY 02/13/24 04/28/24 History iron) tablet dapagliflozin propanediol 10 mg 10 mg PO QAM diabetes #90 tabs 02/19/24 04/28/24 Rx tablet (Farxiga) carvedilol 25 mg tablet 25 mg PO BID blood pressure #60 04/28/24 04/28/24 Rx tabs potassium chloride 20 mEq 20 meq PO DAILY 04/29/24 History tablet,extended release Allergy/AdvReac Type Severity Reaction Status Date / Time Penicillins Allergy Unknown Verified 04/29/24 10:35 Sulfa (Sulfonamide Allergy Unknown Verified 04/29/24 10:35 Antibiotics) bupropion (From Wellbutrin) AdvReac Severe change in Verified 04/29/24 10:35 personality ,meanness and smoked more doxycycline AdvReac Severe Vomiting Verified 04/29/24 10:35 Family History Aunt Lung disease lung cancer Father Heart disease Hypertension Family history of high cholesterol Diabetes Mother Diabetes Daughter Epilepsy Surgical History Hx of vascular surgery History of excision of lesion History of incision and drainage History of coronary artery stent placement History of removal of cyst Hx of hernia repair History of tonsillectomy and adenoidectomy Social History household members: spouse Smoking Status: Current every day smoker tobacco type: cigarettes alcohol intake: never substance use type: does not use caffeine: Yes (7) Type: coffee additional social history: DOES NOT TAKE ASPIRIN DOES NOT TAKE IBUPROFEN ROS Constitutional Constitutional: Reports fatigue; Denies chills, fever(s) or weakness Eyes Eyes: Denies change in vision Cardiovascular Cardiovascular: Reports dyspnea on exertion, edema and orthopnea; Denies chest pain, lightheadedness, palpitations or syncope Respiratory/Chest Respiratory/Chest: Reports cough and shortness of breath with exertion; Denies productive cough, shortness of breath at rest or wheezing Gastrointestinal Gastrointestinal: Denies abdominal pain Genitourinary Genitourinary: Denies dysuria Musculoskeletal Musculoskeletal: Denies arthralgias or myalgias Neurologic Neurologic: Denies dizziness or headache(s) Vital Signs Vital Signs Vital Signs: 04/29/24 10:33 04/29/24 10:35 04/29/24 11:33 Temperature 97.8 F 97.8 F Temperature Source Oral Oral Pulse Rate 78 78 Respiratory Rate 22 H 22 H Respiratory Effort Short of Breath Respiratory Depth Normal Respiratory Pattern Tachypnea Blood Pressure 193/52 H 193/52 H Blood Pressure Mean 99 99 Pulse Ox 97 97 Oxygen Delivery Method Room Air Room Air 04/29/24 11:35 04/29/24 13:01 Temperature 97.8 F 97.8 F Temperature Source Temporal Oral Pulse Rate 70 68 Respiratory Rate 20 H 16 Respiratory Effort Respiratory Depth Respiratory Pattern Blood Pressure 180/63 H 204/77 H Blood Pressure Mean 102 119 Pulse Ox 97 96 Oxygen Delivery Method Room Air Room Air Physical Exam Const alert, oriented x3 and no apparent distress Constitutional Narrative: Upper middle-aged male, appears older than stated age, mildly fatigued appearing but otherwise sitting up comfortably at edge of bed, conversing normally and in no acute distress. General Appearance: cooperative and comfortable HEENT normocephalic, head/scalp atraumatic, hearing grossly normal bilaterally, nasal mucous membranes and turbinates normal and moist oral mucous membranes Eyes PERRL, EOMs intact bilaterally and conjunctivae normal Neck full ROM Chest inspection of chest normal Resp normal respiratory effort and no use of accessory muscles Resp Narrative: Breathing comfortably on room air at rest. Mild crackles noted in bilateral mid to lower lung zones. No wheezing noted. Cardio regular rate, regular rhythm, no murmurs and peripheral pulses 2+ throughout GI normal to inspection, nondistended, normoactive bowel sounds, soft to palpation, non-tender and non-distended Back/Spine normal ROM Extremity Extremity Narrative: +2-3 lower extremity pitting edema noted bilaterally up to the knees. No erythema or significant tenderness to palpation noted. Skin no rashes or lesions noted Neuro moves all extremities and no focal motor deficits Speech: speech normal Motor Exam: strength 5/5 throughout Psych mental status grossly normal Results Lab / Micro Data Labs: Laboratory Results - last 24 hr 04/29/24 11:29: Troponin T High Sens 57 H* Imaging Radiology Impression Chest X-Ray 04/29/24 11:29 IMPRESSION: Hyperinflation. Pulmonary vascular congestion and mild CHF. Borderline cardiomegaly. Reading Location: [facility] Assessment & Plan Assessment/Plan (1) CHF (congestive heart failure): (2) Bilateral leg edema: PLAN: Plan Patient is a 58-year-old male who presented to [facility] ED on 04/29/2024 with worsening shortness of breath and lower extremity swelling. 1. HFpEF exacerbation, concern for DVT/PE ? Admit under inpatient status to PCU. Presentation consistent with HFpEF exacerbation in setting of very elevated BNP, chest x-ray with pulmonary edema and cardiomegaly and shortness of breath on exertion and orthopnea. Last echo in 11/2023 showed EF 60%, moderate concentric LV hypertrophy, otherwise unremarkable. Volume overload may be secondary to worsening hypertension and inadequate Lasix dosing in setting of CKD stage IV. D-dimer elevated and have some concern for DVT/PE but cannot obtain CTA chest due to CKD. Will obtain repeat echo and bilateral lower extremity venous duplex ultrasound. If these are concerning for DVT/PE, will order VQ scan. Will treat with subcu heparin for DVT prophylaxis for now. Will treat with IV Lasix 60 mg twice daily and monitor daily BMP and urine output. 2. Accelerated hypertension ? Hypertensive to the 190s to 200 systolic in the ED. Asymptomatic and only mild creatinine elevation noted, no concern for hypertensive urgency. Suspect worsening hypertension is secondary to volume overload from HFpEF exacerbation and worsening kidney function. Will continue home Coreg, clonidine and nifedipine. Treating with IV Lasix as noted above. IV hydralazine as needed for SBP greater than 170 ordered as well. 3. CKD stage IV ? Creatinine 3.77 on admit, baseline appears to be around 3.4. Will monitor daily BMP and urine output as noted above. Chronic medical conditions: ? COPD: Stable on room air with no wheezing on exam, not in acute exacerbation. Continue home inhalers. ? History of PAD with SFA stent placement, nonobstructive CAD, hyperlipidemia: Had SFA stent placement with Dr. Jeffries in 05/2023. Remains on aspirin and Plavix at this time, will continue these. Continue home statin. ? Type 2 diabetes mellitus: Most recent A1c 5.9%. Only on home dapagliflozin at this time. Blood glucose was 59 in the ED, improved with p.o. intake. Will hold on Accu-Cheks and sliding scale insulin with meals at this time. ? Hydradenitis suppurativa s/p colostomy placement: Had colostomy placement about 3 to 4 years ago. No issues with colostomy recently. No inpatient needs, continue outpatient follow-up. ? Chronic iron deficiency anemia: Hemoglobin 9.3 on admit, stable at baseline. Continue home iron supplement. ? GERD with history of erosive esophagitis with upper GI bleed: Continue home PPI twice daily. ? Arthritis: Can resume home Tremfya every 4 weeks subcutaneously on discharge. DVT prophylaxis: Heparin subcu CODE STATUS: Full code, verified Expected disposition: Home, 2 to 3 days Total clinical time spent by myself addressing the patient's medical issues, reviewing all the data, and collaborating with patient's care team: 75 minutes. Charges/Coding Visit Charges Inpatient E&M: 25346 Init Hosp L3
--- NOTE | 2024-04-29 13:50 | ECHOD_ITS ---
Reason For Study Reason For Study: CHF Procedure This was a 2D Doppler, Color Flow transthoracic echocardiogram. Exam performed portable in ED. Left Ventricle Normal LV size. Moderate concentric left ventricular hypertrophy. Left ventricular systolic function is normal. The left ventricular ejection fraction is 65 %. Stage 1 diastolic dysfunction. No regional wall motion abnormalities noted. Right Ventricle Normal RV size. Normal systolic function. Atria The left atrium is mildly enlarged. Normal right atrium. Mitral Valve Normal mitral valve. Tricuspid Valve Normal tricuspid valve. Mild to moderate (1-2+) tricuspid valve insufficiency. Pulmonary artery systolic pressure is 35 mmHg. Aortic Valve Trisinus/trileaflet aortic valve. Mild focal aortic valve calcification. Pulmonic Valve Normal pulmonic valve. Great Vessels Normal aortic root. The pulmonary artery is normal size. Normal inferior vena cava. Pericardium/Pleural No pericardial effusion. MMode/2D Measurements & Calculations LVIDd: 4.3 cm IVSd: 1.5 cm Ao root diam: 3.1 cm LVIDs: 2.7 cm LVPWd: 1.5 cm RVDd: 3.6 cm FS: 36.1 % LAV(MOD-bp): 88.5 ml LVAd ap4: 30.8 cm2 SV(MOD-sp4): 58.1 ml LAV(MOD-bp) Indexed: 45.6 ml/m2 LVLd ap4: 8.6 cm SI(MOD-sp4): 29.9 ml/m2 LAV(MOD-sp2): 72.2 ml EDV(MOD-sp4): 90.5 ml LAV(MOD-sp4): 97.2 ml EDV(sp4-el): 93.5 ml LVAs ap4: 16.2 cm2 LVLs ap4: 7.3 cm ESV(MOD-sp4): 32.4 ml ESV(sp4-el): 30.4 ml EF(MOD-sp4): 64.2 % EF(sp4-el): 67.5 % SV(sp4-el): 63.1 ml LA A4 area: 27.0 cm2 LA dimension(2D): 4.0 cm RA A4 area: 17.8 cm2 TAPSE: 2.0 cm Time Measurements MV dec time: 0.17 sec Doppler Measurements & Calculations MV E max jarvis: 98.3 cm/sec Lat Peak E' Jarvis: 8.1 cm/sec Med Peak E' Jarvis: 8.1 cm/sec MV A max jarvis: 105.1 cm/sec E/E' lat: 12.2 E/E' med: 12.2 MV E/A: 0.93 MV V2 max: 121.1 cm/sec MV P1/2t max jarvis: 122.6 cm/sec Ao V2 max: 161.1 cm/sec MV max P.9 mmHg MV P1/2t: 66.7 msec Ao max P.4 mmHg MV V2 mean: 70.3 cm/sec Ao V2 mean: 98.5 cm/sec MV mean P.3 mmHg MV dec slope: 538.3 cm/sec2 Ao mean P.4 mmHg MV V2 VTI: 32.8 cm MVA(P1/2t): 3.3 cm2 Ao V2 VTI: 33.1 cm AV (velocity ratio): 0.86 LV V1 max: 137.0 cm/sec TR max jarvis: 276.1 cm/sec LV V1 max P.5 mmHg TR max P.5 mmHg LV V1 mean P.1 mmHg LV V1 mean: 83.0 cm/sec LV V1 VTI: 28.4 cm ECHO/Echo Complete Interpretation Summary Normal LV size. Left ventricular systolic function is normal. The left ventricular ejection fraction is 65 %. Stage 1 diastolic dysfunction. Moderate concentric left ventricular hypertrophy. Pulmonary artery systolic pressure is 35 mmHg. Ordering Physician: Lamine Smith Performed By: Ciaran Mayer RCS
--- NOTE | 2024-04-29 13:50 | VDLE_ITS ---
Reason For Study Reason For Study: Elevated D-dimer RIGHT LEFT GSV is normal. GSV is normal. CFV is compressible, spontaneous, phasic, competent CFV is compressible, spontaneous, phasic, competent, and demonstrates normal augmentation. and demonstrates normal augmentation. FV is compressible, spontaneous, phasic, competent FV is compressible, spontaneous, phasic, competent and demonstrates normal augmentation. and demonstrates normal augmentation. POP V is compressible, spontaneous, phasic, competent POP V is compressible, spontaneous, phasic, competent and demonstrates normal augmentation. and demonstrates normal augmentation. T/P Trunk is compressible. T/P Trunk is compressible. PTV is compressible. PTV is compressible. RT PerV is compressible. LT PerV is compressible. Procedure This is a venous duplex using B-mode, color flow and spectral Doppler. Exam performed in department. A preliminary report was called and/or faxed to ED. VL/Venous Duplex US - Roni Extrem Interpretation Summary Deep veins of the lower extremities are bilaterally patent and compressible seg mentally. There is no evidence of deep vein thrombosis on either side. Valvular competence appears intact within the p roximal deep venous systems bilaterally. The great saphenous veins appear bilaterally patent and compressible segmentall y. Ordering Physician: Lamine Smith Referring Physician: Adina Bhat Performed By: Valeria Kinney RVT
[2024-04-29 14:46] LABS: Troponin T High Sens 2 HR 52 ng/L (<=22)
[2024-04-29 16:52] LABS: Troponin T High Sens 4 HR 55 ng/L (<=22)
[2024-04-29] MEDS: cloNIDine HCl 0.2 MG Tablet PO (17:08)
[2024-04-29] MEDS: Pantoprazole Sodium 40 MG Tablet PO (21:10)
[2024-04-29] MEDS: Heparin Injection (Vial) 5,000 UNIT/ML VIAL 5000 UNIT SC (21:10)
[2024-04-29] MEDS: Atorvastatin Calcium 80 MG Tablet PO (21:10)
[2024-04-29] MEDS: Furosemide 100 MG/10 ML Vial 80 MG IV (21:10)
[2024-04-29] MEDS: cloNIDine HCl 0.1 MG Tablet PO (21:10)
[2024-04-29] MEDS: Carvedilol 25 MG Tablet PO (21:10)
[2024-04-29] MEDS: 0.9% Saline Lock 10 ML Syringe IV (21:11)
[2024-04-30 01:00] VITALS: PULSE 62
[2024-04-30 03:10] VITALS: BP 166/64; PULSE 58; RESP 18; TEMP 36.6; O2SAT 98
[2024-04-30 04:24] VITALS: BMI 26.0
[2024-04-30] MEDS: Heparin Injection (Vial) 5,000 UNIT/ML VIAL 5000 UNIT SC ×3 (05:10→22:08)
[2024-04-30] MEDS: 0.9% Saline Lock 10 ML Syringe IV (05:10)
[2024-04-30 07:02] VITALS: O2SAT 96
[2024-04-30 08:38] LABS: Absolute Lymphocyte Count 1.65 X10^3/uL (0.83-4.51); Absolute Neutrophil Count 4.9 X10^3/uL (2.0-7.7); Basophil# 0.07 X10^3/uL; Basophil% 0.9 % (0-1); Eosinophil# 0.33 X10^3/uL; Eosinophils% 4.3 % (0-5); Hematocrit 25.3 % (40-54); Hemoglobin 8.1 g/dL (13.0-16.5); Lymphocyte # 1.65 X10^3/ul (0.83-4.51); Lymphocyte % 21.7 % (19-41); Mean Corpuscular Hgb 29.8 pg (27.0-32.0); Mean Platelet Vol. 9.6 fl (6.2-12.0); Monocyte# 0.61 X10^3/uL; NRBC Flagged by Analyzer 0 % (0-5); Neutrophil # 4.92 X10^3/uL (2.7-7.7); Neutrophil % 64.7 % (47-70); Platelet Count 269 K/mm3 (150-450); RBC Distribution Width CV 15.2 % (11.6-14.6); RBC Distribution Width SD 51.8 fl (35.1-43.9); Red Blood Count 2.72 M/mm3 (4.6-6.2); White Blood Count 7.6 K/mm3 (4.4-11.0)
[2024-04-30 08:53] LABS: Anion Gap 10 (5-15); BUN 26 mg/dL (4-19); BUN/Creat Ratio 6.6 RATIO (10-20); Calcium,Total 8.1 mg/dL (7.6-11.0); Carbon Dioxide 18.7 mmol/L (21.0-32.0); Chloride 110 mmol/L (98-108); EST Glomerular Filtration Rate 17 (>60); Estimated Creatinine Clearance 19.49 ml/min (50-250); Glucose 83 mg/dL (70-99); Potassium 5.2 mmol/L (3.3-5.1); Sodium Level 139 mmol/L (133-145)
[2024-04-30 09:10] VITALS: BP 182/64; PULSE 62; RESP 16; TEMP 36.6; O2SAT 100
--- NOTE | 2024-04-30 09:41 | PCM.PN.HOSP ---
Reason for Visit Reason for Visit: Diagnoses Heart failure, unspecified (04/29/24) Localized edema (04/29/24) Subjective Subjective Saw patient at bedside this morning, daughter present. Patient sitting up comfortably at edge of bed, answering questions appropriately, in no acute distress. Appears similar to yesterday. States he is urinating some but not as much as he anticipated on the IV Lasix. He continues to report shortness of breath with exertion and fluid overload in his legs. He otherwise denies any other new concerns this morning. Objective Data Objective Data Vital Signs: Vital Signs Temp Pulse Resp BP Pulse Ox O2 Del Method 97.8 F 58 L 18 166/64 H 98 Room Air 04/30/24 03:10 04/30/24 03:10 04/30/24 03:10 04/30/24 03:10 04/30/24 03:10 04/30/24 03:10 Oxygen Delivery Method Room Air Weight: 77.9 kg Body Mass Index (BMI) 26.0 Intake & Output: Intake and Output for Last 24 Hours 04/28/24 04/29/24 04/30/24 23:59 23:59 23:59 Output Total 1175 / 1175 Balance -1175 / -1175 Lab / Micro Data 04/30/24 08:18 04/30/24 08:18 Labs: Laboratory Results - last 24 hr 04/29/24 11:29: Troponin T High Sens 57 H* 04/29/24 13:39: Troponin T Hi Sens 2 Hr 52 H 04/29/24 15:55: Troponin T Hi Sens 4Hr 55 H* 04/30/24 08:18: WBC 7.6, RBC 2.72 L, Hgb 8.1 L, Hct 25.3 L, MCV 93.0, MCH 29.8, MCHC 32.0, RDW Std Deviation 51.8 H, RDW Coeff of Dana 15.2 H, Plt Count 269, MPV 9.6, Immature Gran % (Auto) 0.400, Neut % (Auto) 64.7, Lymph % (Auto) 21.7, Pratt % (Auto) 8.0, Eos % (Auto) 4.3, Baso % (Auto) 0.9, Absolute Neuts (auto) 4.9, Absolute Lymphs (auto) 1.65, Nucleated RBC % 0, Sodium 139, Potassium 5.2 H, Chloride 110 H, Carbon Dioxide 18.7 L, Anion Gap 10, BUN 26 H, Creatinine 3.90 H, Estim Creat Clear Calc 19.49 L, Est GFR (MDRD) Non-Af 17 L, BUN/Creatinine Ratio 6.6 L, Glucose 83, Calcium 8.1 Radiography Diagnostic Testing: Radiology Impression Chest X-Ray 04/29/24 11:29 IMPRESSION: Hyperinflation. Pulmonary vascular congestion and mild CHF. Borderline cardiomegaly. Reading Location: [facility] Echocardiogram 04/29/24 13:50 Interpretation Summary Normal LV size. Left ventricular systolic function is normal. The left ventricular ejection fraction is 65 %. Stage 1 diastolic dysfunction. Moderate concentric left ventricular hypertrophy. Pulmonary artery systolic pressure is 35 mmHg. Ordering Physician: Lamine Smith Performed By: Ciaran Mayer RCS Physical Exam Const alert, oriented x3 and no apparent distress Constitutional Narrative: Upper middle-aged male, appears older than stated age, mildly fatigued appearing but otherwise sitting up comfortably at edge of bed, conversing normally and in no acute distress. Stable. General Appearance: cooperative and comfortable HEENT normocephalic, head/scalp atraumatic, hearing grossly normal bilaterally, nasal mucous membranes and turbinates normal and moist oral mucous membranes Eyes PERRL, EOMs intact bilaterally and conjunctivae normal Neck full ROM Chest inspection of chest normal Resp normal respiratory effort and no use of accessory muscles Resp Narrative: Breathing comfortably on room air at rest. Mild crackles noted in bilateral mid to lower lung zones. No wheezing noted. Stable. Cardio regular rate, regular rhythm, no murmurs and peripheral pulses 2+ throughout GI normal to inspection, nondistended, normoactive bowel sounds, soft to palpation, non-tender and non-distended Back/Spine normal ROM Extremity Extremity Narrative: +2-3 lower extremity pitting edema noted bilaterally up to the knees. No erythema or significant tenderness to palpation noted. Stable. Skin no rashes or lesions noted Neuro moves all extremities and no focal motor deficits Speech: speech normal Motor Exam: strength 5/5 throughout Psych mental status grossly normal Assessment & Plan Assessment/Plan (1) CHF (congestive heart failure): (2) Bilateral leg edema: PLAN: Plan Patient is a 58-year-old male who presented to [facility] ED on 04/29/2024 with worsening shortness of breath and lower extremity swelling. 1. HFpEF exacerbation ? Presentation consistent with HFpEF exacerbation in setting of very elevated BNP, chest x-ray with pulmonary edema and cardiomegaly and shortness of breath on exertion and orthopnea. Last echo in 11/2023 showed EF 60%, moderate concentric LV hypertrophy, otherwise unremarkable. Repeat echo on 04/29 showed EF 65%, moderate concentric LV hypertrophy with stage I diastolic dysfunction and mild pulmonary hypertension. Suspect volume overload is secondary to worsening hypertension and inadequate Lasix dosing in setting of CKD stage IV. D-dimer was elevated but lower extremity venous duplex ultrasound negative, low concern for PE. Initially treated with IV Lasix 80 mg twice daily without much urine output, so transitioned to IV Bumex 2 mg twice daily on 04/30. Continue to monitor daily BMP and urine output. Nephrology consulted as below. 2. Accelerated hypertension ? Hypertensive to the 190s to 200 systolic in the ED. Asymptomatic and only mild creatinine elevation noted, no concern for hypertensive urgency. Suspect worsening hypertension is secondary to volume overload from HFpEF exacerbation and worsening kidney function. Treating with IV diuresis as noted above. Continue home Coreg, clonidine and nifedipine. IV hydralazine as needed for SBP greater than 170 ordered as well. 3. Elevated creatinine in setting of CKD stage IV ? Nephrology consulted. Creatinine 3.77 on admit, worsened slightly to 3.90 on hospital day 2. Baseline appears to be around 3.4. Have concern that patient may not be diuresing well despite high dosing of diuretics secondary to worsening kidney disease. Appreciate further nephrology recommendations. Chronic medical conditions: ? COPD: Stable on room air with no wheezing on exam, not in acute exacerbation. Continue home inhalers. ? History of PAD with SFA stent placement, nonobstructive CAD, hyperlipidemia: Had SFA stent placement with Dr. Jeffries in 05/2023. Remains on aspirin and Plavix at this time, will continue these. Continue home statin. ? Type 2 diabetes mellitus: Most recent A1c 5.9%. Only on home dapagliflozin at this time. Blood glucose was 59 in the ED, improved with p.o. intake. Will hold on Accu-Cheks and sliding scale insulin with meals at this time. ? Hydradenitis suppurativa s/p colostomy placement: Had colostomy placement about 3 to 4 years ago. No issues with colostomy recently. No inpatient needs, continue outpatient follow-up. ? Chronic iron deficiency anemia: Hemoglobin stable at baseline 8-9. Continue home iron supplement. ? GERD with history of erosive esophagitis with upper GI bleed: Continue home PPI twice daily. ? Arthritis: Can resume home Tremfya every 4 weeks subcutaneously on discharge. DVT prophylaxis: Heparin subcu CODE STATUS: Full code, verified Expected disposition: Home, 2 to 3 days Total clinical time spent by myself addressing the patient's medical issues, reviewing all the data, and collaborating with patient's care team: 35 minutes. Charges/Coding Visit Charges Inpatient E&M: 45595 Subs Hosp L2
[2024-04-30] MEDS: Pyridoxine HCl 100 MG Tablet 250 MG PO (10:24)
[2024-04-30] MEDS: Ascorbic Acid 500 MG Tablet 250 MG PO (10:24)
[2024-04-30] MEDS: Carvedilol 25 MG Tablet PO ×2 (10:25→16:40)
[2024-04-30] MEDS: Pantoprazole Sodium 40 MG Tablet PO ×2 (10:25→22:08)
[2024-04-30] MEDS: cloNIDine HCl 0.1 MG Tablet PO ×2 (10:25→22:08)
[2024-04-30] MEDS: Docusate Sodium 100 MG Capsule PO (10:25)
[2024-04-30] MEDS: Clopidogrel Bisulfate 75 MG Tablet PO (10:25)
[2024-04-30] MEDS: NIFEdipine 90 MG Tablet PO (10:25)
[2024-04-30] MEDS: Cholecalciferol (Vit D3) 125 MCG CAPSULE (5,000 UNITS) 250 MCG PO (10:25)
[2024-04-30] MEDS: Potassium Chloride Oral Tablet 20 MEQ PO (10:26)
[2024-04-30] MEDS: Bumetanide 1 MG/4 ML Vial 2 MG IV ×2 (10:36→18:05)
--- NOTE | 2024-04-30 10:55 | CASEMGMT ---
SOLANGE NATARAJAN Face to Face with patient for initial transition planning/care coordination assessment. SOLANGE NATARAJAN introduced self and role at [facility]. Patient lying in bed, alert and oriented. Patient willing to participate in assessment and is able to answer all questions appropriately. Care providers, pharmacy, and demographics verified. Strata: 2 PCP: Home [facility] Specialists: Mervin, vascular; Aldo, GI; Stacey, plastics; Roslyn, oncology; Agnieszka, grain trader Preferred Pharmacy: [facility] [place] Insurance: [id number] [facility] Prescription Benefit: yes Living Will/HPOA: yes Shima Santos LNOK: , daughter, step son Living Arrangements: Patient lives with in a [place] with 4-5 steps to enter. Patient states he is independent at home. Transportation: , children DME/HHC: Patient has shower chair, raised toilet, cane, walker, grab bars, and glucometer at home. Patient has been to TCU in the past. Patient has had [facility] in the past. Patient wishes to discharge home discussed therapy at discharge, patient denies need for HHC or therapy at discharge. Patient states he has no further needs or concerns at this time. RN DELGADO placed script with green sheet on chart. CM to follow for discharge planning needs that may arise. Disposition Plan: Patient to discharge home with family support and follow-up plans in place. Valeria WILLIS, RN, CM
[2024-04-30] MEDS: Ferrous Sulfate 325 MG Tablet PO (12:06)
--- NOTE | 2024-04-30 12:18 | CON.PCM.RE_ITS ---
Documented by User: DEVONTE Parham 04/30/24 12:36 Assessment & Plan Assessment/Plan (1) CKD (chronic kidney disease) stage 4, GFR 15-29 ml/min: (2) Acute kidney injury: PLAN: Plan This is a pleasant 58-year-old male with past medical history significant for chronic kidney disease stage IV with nephrotic range proteinuria, history of diabetes and hypertension, who was admitted to the hospital for shortness of breath, worsening lower extremity edema with 20 pound weight gain, heart failure preserved EF. BNP on admission 41,000, chest x-ray pulmonary vascular congestion with mild CHF. Echo from yesterday normal LV size, left ventricular systolic function normal, EF 65%, stage I diastolic dysfunction. Nephrology consulted in view of rising creatinine with history of CKD. Patient was initially on Lasix 40 mg IV daily but transitioned to bumetanide 2 mg IV twice daily today. We will continue with current diuretic regimen. Bps elevated on admission with some improvement and may continue to have improvement with more diuresis; also on coreg, clonidine and nifedipine. Add fluid restriction. Postvoid residual only revealed 35 cc. Patient has been noted to have progression of kidney function and this may be new baseline CKD. SCr 3.65mg/dL 03/26/2024 and in January 2024 SCr ranged ~ 3.3-3.9mg/dL. Will stop potassium chloride, K+ 5.2 today. At this time there is no significant uremic symptoms, no acute indication for ELECTRICAL ENGINEERING DRAFTSPERSON. I did briefly discuss with patient should he not respond to high doses of diuretics and/or kidney function worsens he may be heading towards needing ELECTRICAL ENGINEERING DRAFTSPERSON. Dialysis modalities reviewed with patient, risk and benefit of dialysis reviewed and questions answered. Thank you for allowing us to participate in the care of Mr. Santos, [facility]. Assessment and plan reviewed with Dr. Baird. HPI Consult Data Date of Consult: 04/30/24 HPI Narrative HPI Narrative: SVEN SANTOS, is a 58 M with past medical history significant for CKD stage IV with nephrotic range proteinuria, hypertension, coronary artery disease, mild CVA with moderate bilateral carotid stenosis who was encouraged to go to emergency room yesterday per the prompting of his primary care provider for worsening lower extremity edema, shortness of breath and elevated BNP. Patient was admitted for exacerbation heart failure preserved EF. Nephrology consulted in view of rising serum creatinine. Patient is known to our group, followed by Dr. Baird in [place] office for CKD. He was last seen in February 2024, his creatinine was 3.15 mg/dL. On April 28 patient's creatinine 3.77 and today his creatinine is 3.90 mg/dL. Patient reports that at one time he was taken off furosemide, he saw PCP few days ago because of worsening lower extremity edema and he was put back on furosemide 40 mg, does not not know how often he was to take it. He denies any recent nausea, vomiting or diarrhea. No NSAIDs. States weight is up about 20 pounds [facility] Medical History (Updated 04/30/24 @ 12:23 by DEVONTE Parham) Acute kidney injury Smoker Sleep apnea Stroke/cerebrovascular accident Anemia due to chronic kidney disease Chronic pain Congestive heart failure (CHF) Myocardial infarct Chest pain Diabetic hypoglycemia Anemia due to chronic renal failure treated with erythropoietin, stage 4 (severe) Iron deficiency anemia due to chronic blood loss Impaired vision in both eyes Abnormal gait Stroke Chronic kidney disease (CKD) stage G4/A3, severely decreased glomerular filtration rate (GFR) between 15-29 mL/min/1.73 square meter and albuminuria creatinine ratio greater than 300 mg/g Anasarca Congestive heart failure Bilateral pleural effusion Anemia requiring transfusions Symptomatic anemia Signs and symptoms of anemia Acute on chronic anemia Acute on chronic renal failure Acute on chronic blood loss anemia Right sided numbness Dysphagia Iron deficiency Leukocytosis Renal failure (ARF), acute on chronic Gout Vitamin B12 deficiency anemia Hepatitis Hypotension Vitamin D deficiency Abdominal pain Wound, surgical, nonhealing Aftercare following surgery of the circulatory system Atherosclerosis of [place] arteries of extremities with rest pain, left leg Difficulty walking Wears glasses PVD (peripheral vascular disease) Gait instability TIA (transient ischemic attack) Syncope History of echocardiogram Cardiology follow-up encounter Pressure sore of left ischium, stage 3 Resistant hypertension Dyslipidemia Nicotine dependence Nonhealing skin ulcer Peripheral arterial disease Chronic kidney disease History of diverticulitis Arthritis Kidney disease Acute kidney injury superimposed on chronic kidney disease Diverticulitis Weight gain with edema DM type 2, goal HbA1c < 7.5% Malnutrition Ulcer of perineum with fat layer exposed Ulcer of scrotum Ulcer of right groin with fat layer exposed Shingles Shingles Post-operative pain Elevated serum creatinine Hemoglobin A1c greater than 8.0 percent Hypokalemia Open wound of scrotum with complication Open wound of buttock with complication Non-healing open wound of right groin Abscess, perineum Abscess of scrotal wall Abscess of right groin Complete edentulism, class III Alcohol use Diabetes Back pain History of ulceration Shortness of breath on exertion History of pain when walking History of edema Hidradenitis suppurativa of anus Suppurative hidradenitis Gastric ulcer Ulcer of perianal area with fat layer exposed Nausea and vomiting Proteinuria due to type 2 diabetes mellitus Lupus (systemic lupus erythematosus) Weakness Edema of both legs Acute post-operative pain 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 Chronic pain Hyperlipidemia Coronary artery disease Diabetes mellitus Chronic obstructive pulmonary disease Debility Colostomy in place Complicated open wound of left thigh Open wound of left buttock with complication Abscess of buttock, left Back pain due to injury History of stress test Smoker Coronary artery disease Abscess of left thigh Wound infection Cellulitis Ankle pain Ankle pain Iron deficiency anemia Ulcer of perineum with fat layer exposed Skin ulcer of scrotum Anemia of chronic disease Ulcer of left groin with fat layer exposed Open wound of scrotum Acute postoperative anemia due to expected blood loss Hidradenitis suppurativa of anus Hypertension Tobacco dependence syndrome Malnutrition Cough Pneumonia involving right lung Hydradenitis Diabetes mellitus type 2, uncontrolled, with complications Hypertension Hyperlipidemia associated with type 2 diabetes mellitus Diabetes type 2, uncontrolled COPD (chronic obstructive pulmonary disease) Hydradenitis Home Medications ?Medication ?Instructions ?Recorded ?Last Taken ?Type guselkumab 100 mg/mL subcutaneous 100 mg subcut Q4W AR THRITIS 04/23/22 04/23/24 History syringe (Tremfya) nifedipine 90 mg tablet,extended 90 mg PO DAILY blood pressure #90 05/08/23 04/28/24 Rx release 24 hr tabs atorvastatin 80 mg tablet 80 mg PO QHS cholesterol #30 tabs 12/14/23 12/25/23 Rx albuterol sulfate 90 mcg/actuation See Rx Instructions .Route 01/01/24 Unknown Rx aerosol inhaler .COMPLEX PRN shortness of br eath or wheezing #8.5 grams furosemide 40 mg tablet (Lasix) 40 mg PO BIDCM diureti c #60 tabs 01/15/24 04/28/24 Rx clonidine HCl 0.1 mg tablet 0.05 mg (1/2 x 0.1 mg) PO BID 01/24/24 04/28/24 Rx blood pressure 30 days #30 tabs clopidogrel 75 mg tablet 75 mg PO DAILY anti platelet #30 01/24/24 04/28/24 Rx tabs pantoprazole 40 mg tablet,delayed 40 mg PO BID #60 tab s 01/31/24 04/28/24 Rx release ascorbic acid (vitamin C) 250 mg 250 mg PO DAILY 02/0504/28/24 History tablet cholecalciferol (vitamin D3) 250 250 mcg PO DAILY 01/1204/28/24 History mcg (10,000 unit) capsule docusate sodium 100 mg capsule 100 mg PO DAILY 5 04/28/24 History ferrous sulfate 325 mg (65 mg 325 mg PO DAILY 02/13/24 04/28/24 History iron) tablet dapagliflozin propanediol 10 mg 10 mg PO QAM diabetes #90 tabs 02/19/24 04/28/24 Rx tablet (Farxiga) carvedilol 25 mg tablet 25 mg PO BID blood pressure #60 04/28/24 04/28/24 Rx tabs potassium chloride 20 mEq 20 meq PO DAILY 04/29/24 History tablet,extended release Allergy/AdvReac Type Severity Reaction Status Date / Time Penicillins Allergy Unknown Verified 04/29/24 10:35 Sulfa (Sulfonamide Allergy Unknown Verified 04/29/24 10:35 Antibiotics) bupropion (From Wellbutrin) AdvReac Severe change in Verified 04/29/24 10:35 personality ,meanness and smoked more doxycycline AdvReac Severe Vomiting Verified 04/29/24 10:35 Family History Aunt Lung disease lung cancer Father Heart disease Hypertension Family history of high cholesterol Diabetes Mother Diabetes Daughter Epilepsy Surgical History Hx of vascular surgery History of excision of lesion History of incision and drainage History of coronary artery stent placement History of removal of cyst Hx of hernia repair History of tonsillectomy and adenoidectomy Social History household members: spouse Smoking Status: Current every day smoker tobacco type: cigarettes alcohol intake: never substance use type: does not use caffeine: Yes (7) Type: coffee additional social history: DOES NOT TAKE ASPIRIN DOES NOT TAKE IBUPROFEN ROS ROS Narrative As in HPI and past medical history Physical Exam Narrative Alert and oriented x 3, no apparent distress. Sitting in chair at bedside. S1, S2, RRR Lungs sound rhonchorous. Not on any O2 at this time Abdomen soft, nontender. Ostomy intact. 2+ pitting edema bilateral lower legs extending up into b/l thighs Lab / Micro Data 04/30/24 08:18 04/30/24 08:18 Labs: Laboratory Results - last 24 hr 04/29/24 13:39: Troponin T Hi Sens 2 Hr 52 H 04/29/24 15:55: Troponin T Hi Sens 4Hr 55 H* 04/30/24 08:18: WBC 7.6, RBC 2.72 L, Hgb 8.1 L, Hct 25.3 L, MCV 93.0, MCH 29.8, MCHC 32.0, RDW Std Deviation 51.8 H, RDW Coeff of Dana 15.2 H, Plt Count 269, MPV 9.6, Immature Gran % (Auto) 0.400, Neut % (Auto) 64.7, Lymph % (Auto) 21.7, Patrick % (Auto) 8.0, Eos % (Auto) 4.3, Baso % (Auto) 0.9, Absolute Neuts (auto) 4.9, Absolute Lymphs (auto) 1.65, Nucleated RBC % 0, Sodium 139, Potassium 5.2 H, C hloride 110 H, Carbon Dioxide 18.7 L, Anion Gap 10, BUN 26 H, Creatinine 3.90 H, Estim Creat Clear Calc 19.49 L, Est GFR (MDRD) Non-Af 17 L, BUN/Creatinine Ratio 6.6 L, Glucose 83, Calcium 8.1 Imaging Radiology Impression Echocardiogram 04/29/24 13:50 Interpretation Summary Normal LV size. Left ventricular systolic function is normal. The left ventricular ejection fraction is 65 %. Stage 1 diastolic dysfunction. Moderate concentric left ventricular hypertrophy. Pulmonary artery systolic pressure is 35 mmHg. Ordering Physician: Lamine Smith Performed By: Ciaran Mayer RCS Venous Doppler Study 04/29/24 13:50 Interpretation Summary Deep veins of the lower extremities are bilaterally patent and compressible segmentally. There is no evidence of deep vein thrombosis on either side. Valvular competence appears intact within the proximal deep venous systems bilaterally. The great saphenous veins appear bilaterally patent and compressible segmentally. Ordering Physician: Lamine Smith Referring Physician: Adina Bhat Performed By: Valeria Kinney RVT Documented by User: Dr. Pat Baird MD 04/30/24 21:34 Assessment & Plan Assessment/Plan (1) CKD (chronic kidney disease) stage 4, GFR 15-29 ml/min: (2) Acute kidney injury: PLAN: Plan This is a pleasant 58-year-old male with past medical history significant for chronic kidney disease stage IV with nephrotic range proteinuria, history of diabetes and hypertension, who was admitted to the hospital for shortness of breath, worsening lower extremity edema with 20 pound weight gain, heart failure preserved EF. BNP on admission 41,000, chest x-ray pulmonary vascular congestion with mild CHF. Echo from yesterday normal LV size, left ventricular systolic function normal, EF 65%, stage I diastolic dysfunction. Nephrology consulted in view of rising creatinine with history of CKD. Patient was initially on Lasix 40 mg IV daily but transitioned to bumetanide 2 mg IV twice daily today. We will continue with current diuretic regimen. Bps elevated on admission with some improvement and may continue to have improvement with more diuresis; also on coreg, clonidine and nifedipine. Add fluid restriction. Postvoid residual only revealed 35 cc. Patient has been noted to have progression of kidney function and this may be new baseline CKD. SCr 3.65mg/dL 03/26/2024 and in January 2024 SCr ranged ~ 3.3-3.9mg/dL. Will stop potassium chloride, K+ 5.2 today. At this time there is no significant uremic symptoms, no acute indication for ELECTRICAL ENGINEERING DRAFTSPERSON. I did briefly discuss with patient should he not respond to high doses of diuretics and/or kidney function worsens he may be heading towards needing ELECTRICAL ENGINEERING DRAFTSPERSON. Dialysis modalities reviewed with patient, risk and benefit of dialysis reviewed and questions answered. Thank you for allowing us to participate in the care of Mr. Santos, further orders forthcoming [facility]. Assessment and plan reviewed with Dr. Baird. Addendum patient was seen and examined independently CKD4 proteinuria HTN. variable control. In the past when we tried to control aggressively he ended up with syncope clinically overloaded likely some progression of CKD IV diuretics for now HPI Consult Data Date of Consult: 04/30/24 [facility] Medical History (Updated 04/30/24 @ 12:23 by Mackenzie Jacobson, [place]) Acute kidney injury Smoker Sleep apnea Stroke/cerebrovascular accident Anemia due to chronic kidney disease Chronic pain Congestive heart failure (CHF) Myocardial infarct Chest pain Diabetic hypoglycemia Anemia due to chronic renal failure treated with erythropoietin, stage 4 (severe) Iron deficiency anemia due to chronic blood loss Impaired vision in both eyes Abnormal gait Stroke Chronic kidney disease (CKD) stage G4/A3, severely decreased glomerular filtration rate (GFR) between 15-29 mL/min/1.73 square meter and albuminuria creatinine ratio greater than 300 mg/g Anasarca Congestive heart failure Bilateral pleural effusion Anemia requiring transfusions Symptomatic anemia Signs and symptoms of anemia Acute on chronic anemia Acute on chronic renal failure Acute on chronic blood loss anemia Right sided numbness Dysphagia Iron deficiency Leukocytosis Renal failure (ARF), acute on chronic Gout Vitamin B12 deficiency anemia Hepatitis Hypotension Vitamin D deficiency Abdominal pain Wound, surgical, nonhealing Aftercare following surgery of the circulatory system Atherosclerosis of [place] arteries of extremities with rest pain, left leg Difficulty walking Wears glasses PVD (peripheral vascular disease) Gait instability TIA (transient ischemic attack) Syncope History of echocardiogram Cardiology follow-up encounter Pressure sore of left ischium, stage 3 Resistant hypertension Dyslipidemia Nicotine dependence Nonhealing skin ulcer Peripheral arterial disease Chronic kidney disease History of diverticulitis Arthritis Kidney disease Acute kidney injury superimposed on chronic kidney disease Diverticulitis Weight gain with edema DM type 2, goal HbA1c < 7.5% Malnutrition Ulcer of perineum with fat layer exposed Ulcer of scrotum Ulcer of right groin with fat layer exposed Shingles Shingles Post-operative pain Elevated serum creatinine Hemoglobin A1c greater than 8.0 percent Hypokalemia Open wound of scrotum with complication Open wound of buttock with complication Non-healing open wound of right groin Abscess, perineum Abscess of scrotal wall Abscess of right groin Complete edentulism, class III Alcohol use Diabetes Back pain History of ulceration Shortness of breath on exertion History of pain when walking History of edema Hidradenitis suppurativa of anus Suppurative hidradenitis Gastric ulcer Ulcer of perianal area with fat layer exposed Nausea and vomiting Proteinuria due to type 2 diabetes mellitus Lupus (systemic lupus erythematosus) Weakness Edema of both legs Acute post-operative pain 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 Chronic pain Hyperlipidemia Coronary artery disease Diabetes mellitus Chronic obstructive pulmonary disease Debility Colostomy in place Complicated open wound of left thigh Open wound of left buttock with complication Abscess of buttock, left Back pain due to injury History of stress test Smoker Coronary artery disease Abscess of left thigh Wound infection Cellulitis Ankle pain Ankle pain Iron deficiency anemia Ulcer of perineum with fat layer exposed Skin ulcer of scrotum Anemia of chronic disease Ulcer of left groin with fat layer exposed Open wound of scrotum Acute postoperative anemia due to expected blood loss Hidradenitis suppurativa of anus Hypertension Tobacco dependence syndrome Malnutrition Cough Pneumonia involving right lung Hydradenitis Diabetes mellitus type 2, uncontrolled, with complications Hypertension Hyperlipidemia associated with type 2 diabetes mellitus Diabetes type 2, uncontrolled COPD (chronic obstructive pulmonary disease) Hydradenitis Home Medications ?Medication ?Instructions ?Recorded ?Last Taken ?Type guselkumab 100 mg/mL subcutaneous 100 mg subcut Q4W AR THRITIS 04/23/22 04/23/24 History syringe (Tremfya) nifedipine 90 mg tablet,extended 90 mg PO DAILY blood pressure #90 05/08/23 04/28/24 Rx release 24 hr tabs atorvastatin 80 mg tablet 80 mg PO QHS cholesterol #30 tabs 12/14/23 12/25/23 Rx albuterol sulfate 90 mcg/actuation See Rx Instructions .Route 01/01/24 Unknown Rx aerosol inhaler .COMPLEX PRN shortness of br eath or wheezing #8.5 grams furosemide 40 mg tablet (Lasix) 40 mg PO BIDCM diureti c #60 tabs 01/15/24 04/28/24 Rx clonidine HCl 0.1 mg tablet 0.05 mg (1/2 x 0.1 mg) PO BID 01/24/24 04/28/24 Rx blood pressure 30 days #30 tabs clopidogrel 75 mg tablet 75 mg PO DAILY anti platelet #30 01/24/24 04/28/24 Rx tabs pantoprazole 40 mg tablet,delayed 40 mg PO BID #60 tab s 01/31/24 04/28/24 Rx release ascorbic acid (vitamin C) 250 mg 250 mg PO DAILY 02/0504/28/24 History tablet cholecalciferol (vitamin D3) 250 250 mcg PO DAILY 01/1204/28/24 History mcg (10,000 unit) capsule docusate sodium 100 mg capsule 100 mg PO DAILY 5 04/28/24 History ferrous sulfate 325 mg (65 mg 325 mg PO DAILY 02/13/24 04/28/24 History iron) tablet dapagliflozin propanediol 10 mg 10 mg PO QAM diabetes #90 tabs 02/19/24 04/28/24 Rx tablet (Farxiga) carvedilol 25 mg tablet 25 mg PO BID blood pressure #60 04/28/24 04/28/24 Rx tabs potassium chloride 20 mEq 20 meq PO DAILY 04/29/24 History tablet,extended release Allergy/AdvReac Type Severity Reaction Status Date / Time Penicillins Allergy Unknown Verified 04/29/24 10:35 Sulfa (Sulfonamide Allergy Unknown Verified 04/29/24 10:35 Antibiotics) bupropion (From Wellbutrin) AdvReac Severe change in Verified 04/29/24 10:35 personality ,meanness and smoked more doxycycline AdvReac Severe Vomiting Verified 04/29/24 10:35 Family History Aunt Lung disease lung cancer Father Heart disease Hypertension Family history of high cholesterol Diabetes Mother Diabetes Daughter Epilepsy Surgical History Hx of vascular surgery History of excision of lesion History of incision and drainage History of coronary artery stent placement History of removal of cyst Hx of hernia repair History of tonsillectomy and adenoidectomy Social History household members: spouse Smoking Status: Current every day smoker tobacco type: cigarettes alcohol intake: never substance use type: does not use caffeine: Yes (7) Type: coffee additional social history: DOES NOT TAKE ASPIRIN DOES NOT TAKE IBUPROFEN Lab / Micro Data 04/30/24 08:18 04/30/24 08:18
[2024-04-30 15:10] VITALS: BP 130/73; PULSE 58; RESP 18; TEMP 36.8; O2SAT 97
[2024-04-30 21:10] VITALS: BP 147/58; PULSE 62; RESP 16; TEMP 37.1; O2SAT 93
[2024-04-30] MEDS: Atorvastatin Calcium 80 MG Tablet PO (22:08)
[2024-05-01 03:10] VITALS: BP 147/58; PULSE 66; RESP 18; TEMP 37.2; O2SAT 94
[2024-05-01] MEDS: Heparin Injection (Vial) 5,000 UNIT/ML VIAL 5000 UNIT SC ×3 (05:44→21:53)
[2024-05-01 05:46] VITALS: BMI 26.4
[2024-05-01 06:27] LABS: Anion Gap 12 (5-15); BUN 30 mg/dL (4-19); BUN/Creat Ratio 6.8 RATIO (10-20); Calcium,Total 7.9 mg/dL (7.6-11.0); Carbon Dioxide 16.2 mmol/L (21.0-32.0); Chloride 110 mmol/L (98-108); Creatinine, Serum 4.34 mg/dL (0.70-1.20); EST Glomerular Filtration Rate 15 (>60); Estimated Creatinine Clearance 17.51 ml/min (50-250); Glucose 124 mg/dL (70-99); Potassium 5.7 mmol/L (3.3-5.1); Sodium Level 138 mmol/L (133-145)
[2024-05-01 07:25] VITALS: O2SAT 94
[2024-05-01 09:10] VITALS: BP 166/78; PULSE 74; RESP 17; TEMP 37.1; O2SAT 97
[2024-05-01] MEDS: Bumetanide 1 MG/4 ML Vial 2 MG IV ×2 (09:33→17:46)
[2024-05-01] MEDS: Carvedilol 25 MG Tablet PO ×2 (09:33→17:46)
[2024-05-01] MEDS: Docusate Sodium 100 MG Capsule PO (09:33)
[2024-05-01] MEDS: Clopidogrel Bisulfate 75 MG Tablet PO (09:33)
[2024-05-01] MEDS: cloNIDine HCl 0.1 MG Tablet PO ×2 (09:33→21:53)
[2024-05-01] MEDS: Pantoprazole Sodium 40 MG Tablet PO ×2 (09:33→21:53)
[2024-05-01] MEDS: Pyridoxine HCl 100 MG Tablet 250 MG PO (09:34)
[2024-05-01] MEDS: NIFEdipine 90 MG Tablet PO (09:34)
[2024-05-01] MEDS: Ascorbic Acid 500 MG Tablet 250 MG PO (09:34)
[2024-05-01] MEDS: Cholecalciferol (Vit D3) 125 MCG CAPSULE (5,000 UNITS) 250 MCG PO (09:35)
[2024-05-01] MEDS: Sodium Polystyrene Sulfonate 15 GM/60 ML UDC 30 GM PO (09:44)
--- NOTE | 2024-05-01 11:12 | PN.RENAL_ITS ---
Subjective Subjective Patient resting in bed. Daughter at bedside. No overnight events. Denies any chest pain or shortness of breath. Objective Data Objective Data Vital Signs: Vital Signs Temp Pulse Resp BP Pulse Ox O2 Del Method 98.9 F 66 18 147/58 H 94 Room Air 05/01/24 03:10 05/01/24 03:10 05/01/24 03:10 05/01/24 03:10 05/01/24 07:25 05/01/24 07:25 Oxygen Delivery Method Room Air Weight: 78.8 kg Body Mass Index (BMI) 26.4 Intake & Output: Intake and Output for Last 24 Hours 04/29/24 04/30/24 05/01/24 23:59 23:59 23:59 Intake Total 600 / 600 Output Total 2100 / 2700 950 / 950 Balance -1500 / -2100 -950 / -950 Lab / Micro Data 04/30/24 08:18 05/01/24 05:30 Labs: Laboratory Results - last 24 hr 05/01/24 05:30: Sodium 138, Potassium 5.7 H, Chloride 110 H, Carbon Dioxide 16.2 L, Anion Gap 12, BUN 30 H, Creatinine 4.34 H, Estim Creat Clear Calc 17.51 L, E st GFR (MDRD) Non-Af 15 L, BUN/Creatinine Ratio 6.8 L, Glucose 124 H, Calcium 7.9 Physical Exam Narrative Alert and oriented x 3, no apparent distress. Sitting in chair at bedside. S1, S2, RRR Lung sounds rhonchorous. Not on any O2 at this time Abdomen soft, nontender. Ostomy intact. 2+ pitting edema bilateral lower legs extending up into b/l thighs Assessment & Plan Assessment/Plan (1) CKD (chronic kidney disease) stage 4, GFR 15-29 ml/min: (2) Acute kidney injury: PLAN: Plan This is a pleasant 58-year-old male with past medical history significant for chronic kidney disease stage IV with nephrotic range proteinuria, history of diabetes and hypertension, who was admitted to the hospital for shortness of breath, worsening lower extremity edema with 20 pound weight gain, heart failure preserved EF. BNP on admission 41,000, chest x-ray pulmonary vascular congestion with mild CHF. Echo from yesterday normal LV size, left ventricular systolic function normal, EF 65%, stage I diastolic dysfunction. Nephrology consulted in view of rising creatinine with history of CKD. -CKD stage IV with nephrotic range proteinuria; baseline creatinine likely around mid 3.5 mg/dL range. Patient is hypervolemic, patient was initially on Lasix 40 mg IV daily but transitioned to bumetanide 2 mg IV twice daily. Serum creatinine 3.7 --> yesterday 3.9 and today creatinine up to 4.3 mg/dL, bicarb 16 and potassium is 5.7. Output yesterday around 2 L, per cumulative I&O he is net -2.5 L, weight down to 78.8 kg today however still remains mildly hypervolemic, pitting edema bilateral lower legs up into thighs however patient is on room air, lung sounds are rhonchorous today. We will continue with current diuretic regimen. Bps elevated on admission with some improvement and may continue to have improvement with more diuresis; also on coreg, clonidine and nifedipine. Continue with fluid restriction and low potassium diet. Received Kayexalate today and will give another 15 g. Postvoid residual only revealed 35 cc. At this time there is no significant uremic symptoms, no acute indication for ELECTRONIC ENGINEERING TECHNICIAN. I did briefly discuss with patient yesterday should he not respond to high doses of diuretics and/or kidney function worsens he may be heading towards needing ELECTRONIC ENGINEERING TECHNICIAN. Dialysis modalities reviewed with patient, risk and benefit of dialysis reviewed and questions answered. I reviewed with patient and his daughter again today that kidney function has slightly worsened today, patient remains hypervolemic and may be heading towards needing ELECTRONIC ENGINEERING TECHNICIAN. Patient is in agreement with hemodialysis should it be needed. Questions again answered today. Assessment and plan reviewed with Dr. Wen.
--- NOTE | 2024-05-01 12:57 | PN_ITS ---
Subjective Subjective Patient seen and examined. His daughter was by his bedside. He had no active complaints and was comfortably eating breakfast. He denied any fever or chills, nausea, vomiting or any other symptoms. Review of systems is otherwise negative. His potassium is elevated at 5.7 today. Cr has also trended up. Objective Data Objective Data Vital Signs: Vital Signs Temp Pulse Resp BP Pulse Ox O2 Del Method 98.9 F 66 18 147/58 H 94 Room Air 05/01/24 03:10 05/01/24 03:10 05/01/24 03:10 05/01/24 03:10 05/01/24 07:25 05/01/24 07:25 Oxygen Delivery Method Room Air Weight: 173 lb 11.588 oz Body Mass Index (BMI) 26.4 Intake & Output: Intake and Output for Last 24 Hours 04/29/24 04/30/24 05/01/24 23:59 23:59 23:59 Intake Total 600 / 600 Output Total 2100 / 2700 950 / 950 Balance -1500 / -2100 -950 / -950 Lab / Micro Data 04/30/24 08:18 05/01/24 05:30 Labs: Laboratory Results - last 24 hr 05/01/24 05:30: Sodium 138, Potassium 5.7 H, Chloride 110 H, Carbon Dioxide 16.2 L, Anion Gap 12, BUN 30 H, Creatinine 4.34 H, Estim Creat Clear Calc 17.51 L, E st GFR (MDRD) Non-Af 15 L, BUN/Creatinine Ratio 6.8 L, Glucose 124 H, Calcium 7.9 Physical Exam Const alert, oriented x3, no apparent distress and well nourished General Appearance: cooperative and well developed HEENT normocephalic, head/scalp atraumatic, moist oral mucous membranes and oropharynx normal Eyes PERRL and EOMs intact bilaterally Neck no lymphadenopathy and supple Lymph Lymphatic: no lymphadenopathy noted and no lymphedema noted Resp Resp Narrative: mildly diminished breath sounds bibasally, no wheezes or crackles. On room air. Cardio regular rate, regular rhythm, S1 normal heart sound, S2 normal heart sound and no murmurs GI normal to inspection, nondistended, normoactive bowel sounds, soft to palpation, non-tender and non-distended Extremity normal capillary refill, no clubbing, cyanosis or edema and no calf tenderness Skin General Skin Exam: no breakdown Neuro CN's II-XII intact bilaterally, no focal motor deficits and no sensory deficits noted Motor Exam: strength 5/5 throughout and general weakness Psych thought process normal and cooperative Appearance: appropriate Assessment & Plan Assessment/Plan (1) Acute kidney injury: (2) CKD (chronic kidney disease) stage 4, GFR 15-29 ml/min: PLAN: Plan #Tone on CKD IV with hyperkalemia * Cr today is up to 4.34 today. K is 5.7 * will give kayexalate * currently on IV Bumex, per nephrology * Management as per nephrology. * #Acute exacerbation of heart failure preserved ejection fraction * Now on room air. He was admitted with shortness of breath a chest x-ray showed pulmonary edema with cardiomegaly. Has known EF of 65% from 2D echo done on 04/29/2024 which also showed moderate concentric left ventricular hypertrophy and no regional wall motion abnormalities noted. * On IV Bumex * Monitor intake and output. Fluid restriction to 1500 cc daily. * #Hypertension * Blood pressure markedly elevated on admission with systolic being to the 200s. * His home Coreg, clonidine and nifedipine were continued. IV hydralazine as needed. Blood pressure is improving. * #COPD: Not in exacerbation. Breathing treatments bronchodilators. #History of PAD s/p stents: Had stents placed in the left SFA in March 2023. On aspirin and Plavix and high intensity statin. #CAD: S/p stents: On aspirin and Plavix as well as carvedilol and high intensity statin #History of CVA: On high intensity statin as well as aspirin and Plavix #History of hidradenitis suppurativa * Has had multiple surgeries and had a colostomy placed. Colostomy stable. # GERD: On PPI #Type 2 diabetes mellitus: On insulin sliding scale. Accu-Cheks ACHS. DVT prophylaxis: heparin Charges/Coding Visit Charges Inpatient E&M: 76791 Subs Hosp L2
[2024-05-01] MEDS: Sodium Polystyrene Sulfonate 15 GM/60 ML UDC PO (13:14)
[2024-05-01] MEDS: Ferrous Sulfate 325 MG Tablet PO (13:14)
[2024-05-01 15:10] VITALS: BP 184/76; PULSE 69; RESP 17; TEMP 38.2; O2SAT 98
[2024-05-01 15:29] VITALS: BP 189/76; PULSE 88
[2024-05-01] MEDS: hydrALAZINE 20 MG/ML Vial 10 MG IV (15:29)
[2024-05-01] MEDS: Acetaminophen 325 MG Tablet 650 MG PO (15:29)
[2024-05-01 21:45] VITALS: BP 178/62; PULSE 81; RESP 16; TEMP 37; O2SAT 94
[2024-05-01] MEDS: Atorvastatin Calcium 80 MG Tablet PO (21:53)
[2024-05-02] VITALS (9 sets, daily range): BP systolic 144–195; BP diastolic 47–75; PULSE 65–92; RESP 15–20; TEMP 36.5–37.4; O2SAT 93–95
[2024-05-02] MEDS: Albuterol 2.5 MG/3 ML VIAL.NEB. INHALATION (00:29)
[2024-05-02] MEDS: hydrALAZINE 20 MG/ML Vial 10 MG IV (00:55)
[2024-05-02 05:33] LABS: Hematocrit 26.2 % (40-54); Hemoglobin 8.5 g/dL (13.0-16.5); Mean Corp Hgb Conc 32.4 g/dL (32-36); Mean Corpuscular Hgb 29.8 pg (27.0-32.0); Mean Corpuscular Volume 91.9 fL (80-94); Mean Platelet Vol. 9.9 fl (6.2-12.0); Platelet Count 259 K/mm3 (150-450); RBC Distribution Width CV 15.1 % (11.6-14.6); RBC Distribution Width SD 51.4 fl (35.1-43.9); Red Blood Count 2.85 M/mm3 (4.6-6.2); White Blood Count 8.2 K/mm3 (4.4-11.0)
[2024-05-02] MEDS: Heparin Injection (Vial) 5,000 UNIT/ML VIAL 5000 UNIT SC ×3 (06:09→21:02)
[2024-05-02 06:20] LABS: Anion Gap 15 (5-15); BUN 30 mg/dL (4-19); BUN/Creat Ratio 6.4 RATIO (10-20); Carbon Dioxide 16.3 mmol/L (21.0-32.0); Chloride 106 mmol/L (98-108); Creatinine, Serum 4.66 mg/dL (0.70-1.20); EST Glomerular Filtration Rate 14 (>60); Estimated Creatinine Clearance 16.31 ml/min (50-250); Glucose 120 mg/dL (70-99); Potassium 4.8 mmol/L (3.3-5.1); Sodium Level 137 mmol/L (133-145)
[2024-05-02] MEDS: Carvedilol 25 MG Tablet PO ×2 (08:38→17:32)
[2024-05-02] MEDS: Bumetanide 1 MG/4 ML Vial 2 MG IV ×2 (08:38→17:32)
[2024-05-02] MEDS: cloNIDine HCl 0.1 MG Tablet PO ×2 (08:38→21:01)
[2024-05-02] MEDS: Clopidogrel Bisulfate 75 MG Tablet PO (08:39)
[2024-05-02] MEDS: Docusate Sodium 100 MG Capsule PO (08:39)
[2024-05-02] MEDS: NIFEdipine 90 MG Tablet PO (08:40)
[2024-05-02] MEDS: Pyridoxine HCl 100 MG Tablet 250 MG PO (08:40)
[2024-05-02] MEDS: Pantoprazole Sodium 40 MG Tablet PO ×2 (08:40→21:01)
[2024-05-02] MEDS: Ascorbic Acid 500 MG Tablet 250 MG PO (08:41)
[2024-05-02] MEDS: Cholecalciferol (Vit D3) 125 MCG CAPSULE (5,000 UNITS) 250 MCG PO (08:42)
--- NOTE | 2024-05-02 10:12 | PCM.PN.HOSP ---
Subjective Subjective No issues overnight, sleeping with his head at the foot of the bed. Hemoglobin is stabilized. Currently on room air but creatinine continues to worsen Objective Data Objective Data Vital Signs: Vital Signs Temp Pulse Resp BP Pulse Ox O2 Del Method O2 Flow Rate 97.7 F L 73 15 180/75 H 93 Room Air 2 05/02/24 08:37 05/02/24 08:37 05/02/24 08:37 05/02/24 08:37 05/02/24 08:37 05/02/24 09:24 05/02/24 03:34 Oxygen Flow Rate (L/min) 2 Oxygen Delivery Method Room Air Weight: 173 lb 11.588 oz Body Mass Index (BMI) 26.4 Intake & Output: Intake and Output for Last 24 Hours 05/01/24 05/02/24 05/03/24 03:59 03:59 03:59 Intake Total 600 / 600 720 / 720 Output Total 2175 / 2175 1150 / 1150 Balance -1575 / -1575 -430 / -430 Lab / Micro Data 05/02/24 04:31 05/02/24 04:31 Labs: Laboratory Results - last 24 hr 05/02/24 04:31: WBC 8.2, RBC 2.85 L, Hgb 8.5 L, Hct 26.2 L, MCV 91.9, MCH 29.8, MCHC 32.4, RDW Std Deviation 51.4 H, RDW Coeff of Dana 15.1 H, Plt Count 259, MPV 9.9, Sodium 137, Potassium 4.8, Chloride 106, Carbon Dioxide 16.3 L, Anion Gap 15, BUN 30 H, Creatinine 4.66 H, Estim Creat Clear Calc 16.31 L, Est GFR (MDRD) Non-Af 14 L, BUN/Creatinine Ratio 6.4 L, Glucose 120 H, Calcium 8.0 Physical Exam Narrative General: Alert, Oriented x3, Cooperative, No apparent distress HEENT: Atraumatic, PERRLA, EOMI, Normocephalic Oral: Moist Mucosa Neck: Supple, No JVD Lungs: Diminished, Normal air movement, No rhonchi, No wheeze, No rales Cardiovascular: Regular rate, Regular Rhythm, Normal S1, Normal S2, No murmurs Abdomen: Soft, Non Tender, Non-Distended, No Hepato-splenomegaly Extremities: No edema, Capillary Refill Less than 3 Seconds Skin: No rashes, No breakdown Musculoskeletal: No Tenderness to Palpation of Joints or Extremities Neurological: No focal neurological deficits, Motor Exam 5/5 strength throughout, Sensory exam intact to light touch and pain Psych/Mental Status: Normal Affect, Appropriate Assessment & Plan Assessment/Plan (1) Acute kidney injury: (2) CKD (chronic kidney disease) stage 4, GFR 15-29 ml/min: PLAN: Plan 1. Acute hypoxic respiratory insufficiency secondary to acute on chronic exacerbation of diastolic CHF/NATHANIEL on CKD 4 ? Continue with Bumex ? Appreciate nephrology's assistance ? He has little urine output and a rising creatinine ? Echo on 04/29/2024 with an EF of 65% and concentric left ventricular hypertrophy 2. Essential HTN/HLD/CAD status post stents/peripheral artery disease status post stents/history of CVA ? Continue with his blood pressure medications ? Will monitor and make adjustments as necessary ? Continue with his statin as well as aspirin and Plavix 3. DM2 ? Continue with insulin ? Accu-Cheks ACHS ? Will monitor and make adjustments as necessary ? A1c on admission was normal 4. COPD ? Not in exacerbation ? Continue with home inhalers 5. GERD ? Stable ? Continue with PPI DVT: Heparin Charges/Coding Visit Charges Inpatient E&M: 91389 Subs Hosp L2
[2024-05-02] MEDS: Ferrous Sulfate 325 MG Tablet PO (12:32)
[2024-05-02 12:37] LABS: Bedside Glucose 239 mg/dL (74-106)
[2024-05-02] MEDS: Atorvastatin Calcium 80 MG Tablet PO (21:01)
[2024-05-02 21:58] LABS: Bedside Glucose 187 mg/dL (74-106)
[2024-05-03] VITALS (7 sets, daily range): BP systolic 129–160; BP diastolic 54–109; PULSE 59–69; RESP 14–18; TEMP 36.6–37.3; O2SAT 93–98; BMI 25.9
[2024-05-03] MEDS: Heparin Injection (Vial) 5,000 UNIT/ML VIAL 5000 UNIT SC ×3 (06:13→22:05)
[2024-05-03 06:24] LABS: Anion Gap 12 (5-15); BUN 36 mg/dL (4-19); BUN/Creat Ratio 7.8 RATIO (10-20); Calcium,Total 8.1 mg/dL (7.6-11.0); Chloride 107 mmol/L (98-108); Creatinine, Serum 4.66 mg/dL (0.70-1.20); EST Glomerular Filtration Rate 14 (>60); Estimated Creatinine Clearance 16.31 ml/min (50-250); Glucose 156 mg/dL (70-99); Potassium 4.7 mmol/L (3.3-5.1); Sodium Level 138 mmol/L (133-145)
[2024-05-03 06:33] LABS: Bedside Glucose 129 mg/dL (74-106)
[2024-05-03] MEDS: Carvedilol 25 MG Tablet PO ×2 (09:10→17:10)
[2024-05-03] MEDS: Pantoprazole Sodium 40 MG Tablet PO ×2 (09:10→22:04)
[2024-05-03] MEDS: Cholecalciferol (Vit D3) 125 MCG CAPSULE (5,000 UNITS) 250 MCG PO (09:10)
[2024-05-03] MEDS: cloNIDine HCl 0.1 MG Tablet PO ×2 (09:10→22:04)
[2024-05-03] MEDS: Clopidogrel Bisulfate 75 MG Tablet PO (09:11)
[2024-05-03] MEDS: Docusate Sodium 100 MG Capsule PO (09:11)
[2024-05-03] MEDS: Ascorbic Acid 500 MG Tablet 250 MG PO (09:11)
[2024-05-03] MEDS: Pyridoxine HCl 100 MG Tablet 250 MG PO (09:12)
[2024-05-03] MEDS: Bumetanide 1 MG/4 ML Vial 2 MG IV ×2 (09:12→17:10)
[2024-05-03] MEDS: NIFEdipine 90 MG Tablet PO (09:13)
[2024-05-03] MEDS: 0.9% Saline Lock 10 ML Syringe IV ×3 (09:14→22:05)
[2024-05-03] MEDS: Acetaminophen 325 MG Tablet 650 MG PO (09:20)
--- NOTE | 2024-05-03 11:24 | PCM.PN.BLA ---
Progress Note Pt with NATHANIEL on advanced CKD. For the last 2 days Cr has been stable and UO has been adequate, K has normalize. I suspect that Cr has reached plateau and will start improving to baseline shortly. No dialysis indicated
--- NOTE | 2024-05-03 11:27 | PCM.PN.REN ---
Subjective Subjective Pt has not been seen Objective Data Objective Data Vital Signs: Vital Signs Temp Pulse Resp BP Pulse Ox O2 Del Method O2 Flow Rate 98.2 F 69 14 160/57 H 98 Room Air 2 05/03/24 09:07 05/03/24 09:07 05/03/24 09:07 05/03/24 09:07 05/03/24 09:07 05/03/24 09:07 05/02/24 03:34 Oxygen Flow Rate (L/min) 2 Oxygen Delivery Method Room Air Weight: 77.3 kg Body Mass Index (BMI) 25.9 Intake & Output: Intake and Output for Last 24 Hours 05/01/24 05/02/24 05/03/24 23:59 23:59 23:59 Intake Total 720 / 720 720 / 720 180 / 180 Output Total 1750 / 1750 1350 / 1350 400 / 400 Balance -1030 / -1030 -630 / -630 -220 / -220 Lab / Micro Data Attestation: I reviewed the patient's lab results. 05/02/24 04:31 05/03/24 04:57 Labs: Laboratory Results - last 24 hr 05/02/24 12:17: POC Glucose 239 H 05/02/24 21:09: POC Glucose 187 H 05/03/24 04:57: Sodium 138, Potassium 4.7, Chloride 107, Carbon Dioxide 19.0 L, Anion Gap 12, BUN 36 H, Creatinine 4.66 H, Estim Creat Clear Calc 16.31 L, Est GFR (MDRD) Non-Af 14 L, BUN/Creatinine Ratio 7.8 L, Glucose 156 H, Calcium 8.1 05/03/24 06:13: POC Glucose 129 H Assessment & Plan Assessment/Plan (1) Acute kidney injury: PLAN: NATHANIEL on advanced CKD. Cr has been stable over last 2 days, UO is adequate and K is now normal. Suspect that he has reached plateau and able to avoid dialysis. Will check another set tomorrow
[2024-05-03] MEDS: Ferrous Sulfate 325 MG Tablet PO (12:08)
[2024-05-03 12:30] LABS: Bedside Glucose 181 mg/dL (74-106)
--- NOTE | 2024-05-03 12:58 | PCM.PN.HOSP ---
Subjective Subjective Resting comfortably, creatinine has stabilized and nephrology does not believe that there is a need for dialysis currently Objective Data Objective Data Vital Signs: Vital Signs Temp Pulse Resp BP Pulse Ox O2 Del Method O2 Flow Rate 98.2 F 69 14 160/57 H 98 Room Air 2 05/03/24 09:07 05/03/24 09:07 05/03/24 09:07 05/03/24 09:07 05/03/24 09:07 05/03/24 09:07 05/02/24 03:34 Oxygen Flow Rate (L/min) 2 Oxygen Delivery Method Room Air Weight: 170 lb 6.677 oz Body Mass Index (BMI) 25.9 Intake & Output: Intake and Output for Last 24 Hours 05/02/24 05/03/24 05/04/24 03:59 03:59 03:59 Intake Total 720 / 720 720 / 720 800 / 800 Output Total 1150 / 1150 1350 / 1350 1200 / 1200 Balance -430 / -430 -630 / -630 -400 / -400 Lab / Micro Data 05/02/24 04:31 05/03/24 04:57 Labs: Laboratory Results - last 24 hr 05/02/24 21:09: POC Glucose 187 H 05/03/24 04:57: Sodium 138, Potassium 4.7, Chloride 107, Carbon Dioxide 19.0 L, Anion Gap 12, BUN 36 H, Creatinine 4.66 H, Estim Creat Clear Calc 16.31 L, Est GFR (MDRD) Non-Af 14 L, BUN/Creatinine Ratio 7.8 L, Glucose 156 H, Calcium 8.1 05/03/24 06:13: POC Glucose 129 H 05/03/24 12:05: POC Glucose 181 H Physical Exam Narrative General: Alert, Oriented x3, Cooperative, No apparent distress HEENT: Atraumatic, PERRLA, EOMI, Normocephalic Oral: Moist Mucosa Neck: Supple, No JVD Lungs: Diminished, Normal air movement, No rhonchi, No wheeze, No rales Cardiovascular: Regular rate, Regular Rhythm, Normal S1, Normal S2, No murmurs Abdomen: Soft, Non Tender, Non-Distended, No Hepato-splenomegaly Extremities: No edema, Capillary Refill Less than 3 Seconds Skin: No rashes, No breakdown Musculoskeletal: No Tenderness to Palpation of Joints or Extremities Neurological: No focal neurological deficits, Motor Exam 5/5 strength throughout, Sensory exam intact to light touch and pain Psych/Mental Status: Normal Affect, Appropriate Assessment & Plan Assessment/Plan (1) Acute kidney injury: (2) CKD (chronic kidney disease) stage 4, GFR 15-29 ml/min: PLAN: Plan 1. Acute hypoxic respiratory insufficiency secondary to acute on chronic exacerbation of diastolic CHF/NATHANIEL on CKD 4 ? Continue with Bumex ? Appreciate nephrology's assistance, no recommendation for dialysis today ?Creatinine has stabilized, no urine output documented on 05/02/2024 for today ? Echo on 04/29/2024 with an EF of 65% and concentric left ventricular hypertrophy 2. Essential HTN/HLD/CAD status post stents/peripheral artery disease status post stents/history of CVA ? Continue with his blood pressure medications ? Will monitor and make adjustments as necessary ? Continue with his statin as well as aspirin and Plavix 3. DM2 ? Continue with insulin ? Accu-Cheks ACHS ? Will monitor and make adjustments as necessary ? A1c on admission was normal 4. COPD ? Not in exacerbation ? Continue with home inhalers 5. GERD ? Stable ? Continue with PPI DVT: Heparin Charges/Coding Visit Charges Inpatient E&M: 54454 Subs Hosp L2
[2024-05-03 17:30] LABS: Bedside Glucose 211 mg/dL (74-106)
[2024-05-03] MEDS: Atorvastatin Calcium 80 MG Tablet PO (22:04)
[2024-05-03 23:06] LABS: Bedside Glucose 143 mg/dL (74-106)
[2024-05-04] VITALS (7 sets, daily range): BP systolic 154–171; BP diastolic 38–59; PULSE 58–65; RESP 16–18; TEMP 36.4–37; O2SAT 93–98; BMI 26.4
[2024-05-04 05:54] LABS: Hematocrit 25.1 % (40-54); Hemoglobin 8.1 g/dL (13.0-16.5); Mean Corp Hgb Conc 32.3 g/dL (32-36); Mean Corpuscular Hgb 29.6 pg (27.0-32.0); Mean Corpuscular Volume 91.6 fL (80-94); Mean Platelet Vol. 9.6 fl (6.2-12.0); Platelet Count 236 K/mm3 (150-450); RBC Distribution Width CV 14.8 % (11.6-14.6); RBC Distribution Width SD 49.7 fl (35.1-43.9); Red Blood Count 2.74 M/mm3 (4.6-6.2); White Blood Count 8.2 K/mm3 (4.4-11.0)
[2024-05-04] MEDS: Heparin Injection (Vial) 5,000 UNIT/ML VIAL 5000 UNIT SC ×3 (06:20→20:41)
[2024-05-04 06:30] LABS: Anion Gap 14 (5-15); BUN 38 mg/dL (4-19); Carbon Dioxide 17.7 mmol/L (21.0-32.0); Chloride 105 mmol/L (98-108); Creatinine, Serum 4.74 mg/dL (0.70-1.20); EST Glomerular Filtration Rate 13 (>60); Estimated Creatinine Clearance 16.03 ml/min (50-250); Glucose 199 mg/dL (70-99); Potassium 4.7 mmol/L (3.3-5.1); Sodium Level 136 mmol/L (133-145)
[2024-05-04 07:07] LABS: Bedside Glucose 153 mg/dL (74-106)
[2024-05-04] MEDS: Carvedilol 25 MG Tablet PO ×2 (09:05→16:43)
[2024-05-04] MEDS: Bumetanide 1 MG/4 ML Vial 2 MG IV ×2 (09:06→17:56)
[2024-05-04] MEDS: Clopidogrel Bisulfate 75 MG Tablet PO (09:06)
[2024-05-04] MEDS: NIFEdipine 90 MG Tablet PO (09:06)
[2024-05-04] MEDS: Docusate Sodium 100 MG Capsule PO (09:06)
[2024-05-04] MEDS: cloNIDine HCl 0.1 MG Tablet PO ×2 (09:06→20:42)
[2024-05-04] MEDS: Pantoprazole Sodium 40 MG Tablet PO ×2 (09:07→20:42)
[2024-05-04] MEDS: Ascorbic Acid 500 MG Tablet 250 MG PO (09:07)
[2024-05-04] MEDS: Pyridoxine HCl 100 MG Tablet 250 MG PO (09:07)
[2024-05-04] MEDS: Cholecalciferol (Vit D3) 125 MCG CAPSULE (5,000 UNITS) 250 MCG PO (09:08)
[2024-05-04] MEDS: 0.9% Saline Lock 10 ML Syringe IV ×3 (09:08→17:56)
--- NOTE | 2024-05-04 10:39 | PCM.PN.HOSP ---
Subjective Subjective Doing well, no issues overnight. Breathing just fine today. Creatinine did increase slightly so we will await nephrology's evaluation though you continues to make urine though output is dropped over the last couple of days Objective Data Objective Data Vital Signs: Vital Signs Temp Pulse Resp BP Pulse Ox O2 Del Method O2 Flow Rate 97.8 F 59 L 16 158/49 H 93 Room Air 2 05/04/24 09:02 05/04/24 09:02 05/04/24 09:02 05/04/24 09:02 05/04/24 09:02 05/04/24 09:02 05/02/24 03:34 Oxygen Flow Rate (L/min) 2 Oxygen Delivery Method Room Air Weight: 174 lb 2.643 oz Body Mass Index (BMI) 26.4 Intake & Output: Intake and Output for Last 24 Hours 05/03/24 05/04/24 05/05/24 03:59 03:59 03:59 Intake Total 720 / 720 1515 / 1515 240 / 240 Output Total 1350 / 1350 1200 / 1200 Balance -630 / -630 315 / 315 240 / 240 Lab / Micro Data 05/04/24 05:30 05/04/24 05:30 Labs: Laboratory Results - last 24 hr 05/03/24 12:05: POC Glucose 181 H 05/03/24 17:06: POC Glucose 211 H 05/03/24 22:01: POC Glucose 143 H 05/04/24 05:30: WBC 8.2, RBC 2.74 L, Hgb 8.1 L, Hct 25.1 L, MCV 91.6, MCH 29.6, MCHC 32.3, RDW Std Deviation 49.7 H, RDW Coeff of Dana 14.8 H, Plt Count 236, MPV 9.6, Sodium 136, Potassium 4.7, Chloride 105, Carbon Dioxide 17.7 L, Anion Gap 14, BUN 38 H, Creatinine 4.74 H, Estim Creat Clear Calc 16.03 L, Est GFR (MDRD) Non-Af 13 L, BUN/Creatinine Ratio 8.0 L, Glucose 199 H, Calcium 8.0 05/04/24 06:18: POC Glucose 153 H Physical Exam Narrative General: Alert, Oriented x3, Cooperative, No apparent distress HEENT: Atraumatic, PERRLA, EOMI, Normocephalic Oral: Moist Mucosa Neck: Supple, No JVD Lungs: Diminished, Normal air movement, No rhonchi, No wheeze, No rales Cardiovascular: Regular rate, Regular Rhythm, Normal S1, Normal S2, No murmurs Abdomen: Soft, Non Tender, Non-Distended, No Hepato-splenomegaly Extremities: No edema, Capillary Refill Less than 3 Seconds Skin: No rashes, No breakdown Musculoskeletal: No Tenderness to Palpation of Joints or Extremities Neurological: No focal neurological deficits, Motor Exam 5/5 strength throughout, Sensory exam intact to light touch and pain Psych/Mental Status: Normal Affect, Appropriate Assessment & Plan Assessment/Plan (1) Acute kidney injury: (2) CKD (chronic kidney disease) stage 4, GFR 15-29 ml/min: PLAN: Plan 1. Acute hypoxic respiratory insufficiency secondary to acute on chronic exacerbation of diastolic CHF/ANTHANIEL on CKD 4 ? Continue with Bumex ? Appreciate nephrology's assistance, no recommendation for dialysis today ?Creatinine is slightly worse today, and urine output has dropped, will await nephrology's evaluation again today ? Echo on 04/29/2024 with an EF of 65% and concentric left ventricular hypertrophy 2. Essential HTN/HLD/CAD status post stents/peripheral artery disease status post stents/history of CVA ? Continue with his blood pressure medications ? Will monitor and make adjustments as necessary ? Continue with his statin as well as aspirin and Plavix 3. DM2 ? Continue with insulin ? Accu-Cheks ACHS ? Will monitor and make adjustments as necessary ? A1c on admission was normal 4. COPD ? Not in exacerbation ? Continue with home inhalers 5. GERD ? Stable ? Continue with PPI DVT: Heparin Charges/Coding Visit Charges Inpatient E&M: 42596 Subs Hosp L2
[2024-05-04] MEDS: Ferrous Sulfate 325 MG Tablet PO (11:36)
[2024-05-04 12:04] LABS: Bedside Glucose 162 mg/dL (74-106)
--- NOTE | 2024-05-04 12:36 | PN.RENAL_ITS ---
Subjective Subjective Patient sitting in chair, no overnight events. Denies any difficulty breathing. Still has edema to bilateral legs. States appetite is fair. No nausea or vomiting Objective Data Objective Data Vital Signs: Vital Signs Temp Pulse Resp BP Pulse Ox O2 Del Method O2 Flow Rate 97.8 F 59 L 16 158/49 H 93 Room Air 2 05/04/24 09:02 05/04/24 09:02 05/04/24 09:02 05/04/24 09:02 05/04/24 09:02 05/04/24 09:02 05/02/24 03:34 Oxygen Flow Rate (L/min) 2 Oxygen Delivery Method Room Air Weight: 79 kg Body Mass Index (BMI) 26.4 Intake & Output: Intake and Output for Last 24 Hours 05/02/24 05/03/24 05/04/24 23:59 23:59 23:59 Intake Total 720 / 720 1275 / 1275 480 / 480 Output Total 1350 / 1350 1200 / 1200 550 / 550 Balance -630 / -630 75 / 75 -70 / -70 Lab / Micro Data 05/04/24 05:30 05/04/24 05:30 Labs: Laboratory Results - last 24 hr 05/03/24 17:06: POC Glucose 211 H 05/03/24 22:01: POC Glucose 143 H 05/04/24 05:30: WBC 8.2, RBC 2.74 L, Hgb 8.1 L, Hct 25.1 L, MCV 91.6, MCH 29.6, MCHC 32.3, RDW Std Deviation 49.7 H, RDW Coeff of Dana 14.8 H, Plt Count 236, MPV 9.6, Sodium 136, Potassium 4.7, Chloride 105, Carbon Dioxide 17.7 L, Anion Gap 14, BUN 38 H, Creatinine 4.74 H, Estim Creat Clear Calc 16.03 L, Est GFR (MDRD) Non-Af 13 L, BUN/Creatinine Ratio 8.0 L, Glucose 199 H, Calcium 8.0 05/04/24 06:18: POC Glucose 153 H 05/04/24 11:35: POC Glucose 162 H Physical Exam Narrative Alert and oriented x 3, no apparent distress. Sitting in chair at bedside. S1, S2, RRR Lung sounds rhonchorous posteriorly. Not on any O2 at this time Abdomen soft, nontender. Ostomy intact. 2+ pitting edema bilateral lower legs extending up into b/l thighs Assessment & Plan Assessment/Plan (1) Acute kidney injury: PLAN: NATHANIEL versus progression of CKD with nephrotic range proteinuria likely nearing ESRD. Baseline serum creatinine had been around mid 3 range. Patient's creatinine was 3.77 on admission. On admission patient hypervolemic and was started on Lasix IV switched to Bumex 2 mg IV twice daily. He is on room air but has been on room air since admission. Urine output is around 1.5 L/day but appears to be dropping off last few days, still has edema to bilateral legs, weights remain unchanged. Creatinine is up to 4.74, EGFR 13. Last week and today I had long discussion with patient that he is likely heading towards needing renal placement therapy. Patient's questions were answered about inpatient and outpatient dialysis, dialysis modalities, etc. Patient is in agreement with renal placement therapy. Consult general surgery for Tunneled HD catheter. There is no urgent need for [employer] today. Will plan for dialysis after tunneled hemodialysis catheter was placed. Patient has history of coronary artery disease with stents, he is on Plavix, had dose today. Discussed with case management about outpatient HD arrangements, either [place] [facility]: Diagnosis ESRD. Hep B ordered for a.m. Assess plan reviewed with Dr. Wen.
[2024-05-04] MEDS: metOLazone 5 MG Tablet PO (13:17)
--- NOTE | 2024-05-04 13:25 | EX.PCM.CON.S ---
Assessment & Plan Assessment/Plan (1) CKD (chronic kidney disease) stage 4, GFR 15-29 ml/min: PLAN: I was consulted for placement of tunneled dialysis catheter. I discussed this with the patient in detail. At this time the patient is still on his Plavix and this needs to be stopped before he has his catheter placed. I am holding it today but he has already received today's dose. I will plan for dialysis catheter placement or Saturday of this week once the Plavix has had some time to wear off. I discussed the procedure in detail as well as the risks of bleeding, infection, pneumothorax, line infection or DVT. Patient understands the risks and is 1 to proceed. Hold Plavix and continue heparin. Hold heparin day of surgery. I will continue to monitor and see him and plan for surgery later this week. Isaias Castro MD Pager: [facility] [address] [place] [address], [address] [place] [address] Office: HPI Consult Data Date of Consult: 05/04/24 HPI Narrative HPI Narrative: SVEN DUONG, is a 58 M who presents with fluid overload and CHF exacerbation. The patient also has chronic kidney disease and may need dialysis. I was consulted for dialysis catheter placement. Patient is on aspirin and Plavix for heart stents that are over several years old. He has a new stent from 2023 in his left SFA. [facility] Medical History (Updated 04/30/24 @ 12:23 by Mackenzie Jacobson NP-[place]) Acute kidney injury Smoker Sleep apnea Stroke/cerebrovascular accident Anemia due to chronic kidney disease Chronic pain Congestive heart failure (CHF) Myocardial infarct Chest pain Diabetic hypoglycemia Anemia due to chronic renal failure treated with erythropoietin, stage 4 (severe) Iron deficiency anemia due to chronic blood loss Impaired vision in both eyes Abnormal gait Stroke Chronic kidney disease (CKD) stage G4/A3, severely decreased glomerular filtration rate (GFR) between 15-29 mL/min/1.73 square meter and albuminuria creatinine ratio greater than 300 mg/g Anasarca Congestive heart failure Bilateral pleural effusion Anemia requiring transfusions Symptomatic anemia Signs and symptoms of anemia Acute on chronic anemia Acute on chronic renal failure Acute on chronic blood loss anemia Right sided numbness Dysphagia Iron deficiency Leukocytosis Renal failure (ARF), acute on chronic Gout Vitamin B12 deficiency anemia Hepatitis Hypotension Vitamin D deficiency Abdominal pain Wound, surgical, nonhealing Aftercare following surgery of the circulatory system Atherosclerosis of [place] arteries of extremities with rest pain, left leg Difficulty walking Wears glasses PVD (peripheral vascular disease) Gait instability TIA (transient ischemic attack) Syncope History of echocardiogram Cardiology follow-up encounter Pressure sore of left ischium, stage 3 Resistant hypertension Dyslipidemia Nicotine dependence Nonhealing skin ulcer Peripheral arterial disease Chronic kidney disease History of diverticulitis Arthritis Kidney disease Acute kidney injury superimposed on chronic kidney disease Diverticulitis Weight gain with edema DM type 2, goal HbA1c < 7.5% Malnutrition Ulcer of perineum with fat layer exposed Ulcer of scrotum Ulcer of right groin with fat layer exposed Shingles Shingles Post-operative pain Elevated serum creatinine Hemoglobin A1c greater than 8.0 percent Hypokalemia Open wound of scrotum with complication Open wound of buttock with complication Non-healing open wound of right groin Abscess, perineum Abscess of scrotal wall Abscess of right groin Complete edentulism, class III Alcohol use Diabetes Back pain History of ulceration Shortness of breath on exertion History of pain when walking History of edema Hidradenitis suppurativa of anus Suppurative hidradenitis Gastric ulcer Ulcer of perianal area with fat layer exposed Nausea and vomiting Proteinuria due to type 2 diabetes mellitus Lupus (systemic lupus erythematosus) Weakness Edema of both legs Acute post-operative pain 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 Chronic pain Hyperlipidemia Coronary artery disease Diabetes mellitus Chronic obstructive pulmonary disease Debility Colostomy in place Complicated open wound of left thigh Open wound of left buttock with complication Abscess of buttock, left Back pain due to injury History of stress test Smoker Coronary artery disease Abscess of left thigh Wound infection Cellulitis Ankle pain Ankle pain Iron deficiency anemia Ulcer of perineum with fat layer exposed Skin ulcer of scrotum Anemia of chronic disease Ulcer of left groin with fat layer exposed Open wound of scrotum Acute postoperative anemia due to expected blood loss Hidradenitis suppurativa of anus Hypertension Tobacco dependence syndrome Malnutrition Cough Pneumonia involving right lung Hydradenitis Diabetes mellitus type 2, uncontrolled, with complications Hypertension Hyperlipidemia associated with type 2 diabetes mellitus Diabetes type 2, uncontrolled COPD (chronic obstructive pulmonary disease) Hydradenitis Home Medications ?Medication ?Instructions ?Recorded ?Last Taken ?Type guselkumab 100 mg/mL subcutaneous 100 mg subcut Q4W ARTHRITIS 04/23/22 04/23/24 History syringe (Tremfya) nifedipine 90 mg tablet,extended 90 mg PO DAILY blood pressure #90 05/08/23 04/28/24 Rx release 24 hr tabs atorvastatin 80 mg tablet 80 mg PO QHS cholesterol #30 tabs 12/14/23 12/25/23 Rx albuterol sulfate 90 mcg/actuation See Rx Instructions .Route 01/01/24 Unknown Rx aerosol inhaler .COMPLEX PRN shortness of breath or wheezing #8.5 grams furosemide 40 mg tablet (Lasix) 40 mg PO BIDCM diuretic #60 tabs 01/15/24 04/28/24 Rx clonidine HCl 0.1 mg tablet 0.05 mg (1/2 x 0.1 mg) PO BID 01/24/24 04/28/24 Rx blood pressure 30 days #30 tabs clopidogrel 75 mg tablet 75 mg PO DAILY anti platelet #30 01/24/24 04/28/24 Rx tabs pantoprazole 40 mg tablet,delayed 40 mg PO BID #60 tabs 01/31/24 04/28/24 Rx release ascorbic acid (vitamin C) 250 mg 250 mg PO DAILY 02/06/24 04/28/24 History tablet cholecalciferol (vitamin D3) 250 250 mcg PO DAILY 02/06/24 04/28/24 History mcg (10,000 unit) capsule docusate sodium 100 mg capsule 100 mg PO DAILY 02/13/24 04/28/24 History ferrous sulfate 325 mg (65 mg 325 mg PO DAILY 02/13/24 04/28/24 History iron) tablet dapagliflozin propanediol 10 mg 10 mg PO QAM diabetes #90 tabs 02/19/24 04/28/24 Rx tablet (Farxiga) carvedilol 25 mg tablet 25 mg PO BID blood pressure #60 04/28/24 04/28/24 Rx tabs potassium chloride 20 mEq 20 meq PO DAILY 04/29/24 04/28/24 History tablet,extended release Allergy/AdvReac Type Severity Reaction Status Date / Time Penicillins Allergy Unknown Verified 04/29/24 10:35 Sulfa (Sulfonamide Allergy Unknown Verified 04/29/24 10:35 Antibiotics) bupropion (From Wellbutrin) AdvReac Severe change in Verified 04/29/24 10:35 personality ,meanness and smoked more doxycycline AdvReac Severe Vomiting Verified 04/29/24 10:35 Family History Aunt Lung disease lung cancer Father Heart disease Hypertension Family history of high cholesterol Diabetes Mother Diabetes Daughter Epilepsy Surgical History Hx of vascular surgery History of excision of lesion History of incision and drainage History of coronary artery stent placement History of removal of cyst Hx of hernia repair History of tonsillectomy and adenoidectomy Social History household members: spouse Smoking Status: Current every day smoker tobacco type: cigarettes alcohol intake: never substance use type: does not use caffeine: Yes (7) Type: coffee additional social history: DOES NOT TAKE ASPIRIN DOES NOT TAKE IBUPROFEN ROS ROS Narrative As in HPI and past medical history Constitutional Constitutional: Denies anorexia, chills or fatigue Eyes Eyes: Denies blurry vision Cardiovascular Cardiovascular: Denies chest pain Respiratory/Chest Respiratory/Chest: Reports dyspnea; Denies cough Gastrointestinal Gastrointestinal: Denies abdominal pain, diarrhea or dysphagia Musculoskeletal Musculoskeletal: Denies abnormal gait Integumentary Integumentary: Denies jaundice Physical Exam Const alert and oriented x3 HEENT normocephalic Eyes PERRL Lymph Lymphatic: no lymphadenopathy noted Resp normal respiratory effort Cardio Rate: regular rate Rhythm: regular rhythm GI Inspection: Negative for abdominal distention Auscultation: Negative for normoactive bowel sounds Lab / Micro Data 05/04/24 05:30 05/04/24 05:30 Labs: Laboratory Results - last 24 hr 05/03/24 17:06: POC Glucose 211 H 05/03/24 22:01: POC Glucose 143 H 05/04/24 05:30: WBC 8.2, RBC 2.74 L, Hgb 8.1 L, Hct 25.1 L, MCV 91.6, MCH 29.6, MCHC 32.3, RDW Std Deviation 49.7 H, RDW Coeff of Dana 14.8 H, Plt Count 236, MPV 9.6, Sodium 136, Potassium 4.7, Chloride 105, Carbon Dioxide 17.7 L, Anion Gap 14, BUN 38 H, Creatinine 4.74 H, Estim Creat Clear Calc 16.03 L, Est GFR (MDRD) Non-Af 13 L, BUN/Creatinine Ratio 8.0 L, Glucose 199 H, Calcium 8.0 05/04/24 06:18: POC Glucose 153 H 05/04/24 11:35: POC Glucose 162 H
[2024-05-04] MEDS: hydrALAZINE 20 MG/ML Vial 10 MG IV (14:29)
--- NOTE | 2024-05-04 16:08 | CASEMGMT ---
SOLANGE NATARAJAN updated by data miner that patient will need outapatient HD setup. SOLANGE NATARAJAN in to discuss with patient and . states she would prefer [facility] for outpatient HD. Patient and had no further questions. SOLANGE NATARAJAN sent referral to [facility] via portal. CM will continue to follow this patient and plan for a safe discharge.
[2024-05-04 16:40] LABS: Hepatitis B Surface Antigen Nonreactive (Nonreactive)
[2024-05-04 17:02] LABS: Bedside Glucose 166 mg/dL (74-106)
[2024-05-04] MEDS: Atorvastatin Calcium 80 MG Tablet PO (20:42)
[2024-05-04 21:06] LABS: Bedside Glucose 206 mg/dL (74-106)
[2024-05-05] VITALS (7 sets, daily range): BP systolic 137–173; BP diastolic 43–52; PULSE 62–70; RESP 16–18; TEMP 36.4–36.9; O2SAT 96–98; BMI 26.3
[2024-05-05] MEDS: Heparin Injection (Vial) 5,000 UNIT/ML VIAL 5000 UNIT SC (06:13)
[2024-05-05 06:40] LABS: Bedside Glucose 198 mg/dL (74-106)
[2024-05-05 06:41] LABS: Anion Gap 12 (5-15); BUN 41 mg/dL (4-19); BUN/Creat Ratio 8.8 RATIO (10-20); Calcium,Total 7.9 mg/dL (7.6-11.0); Chloride 107 mmol/L (98-108); Creatinine, Serum 4.68 mg/dL (0.70-1.20); EST Glomerular Filtration Rate 14 (>60); Estimated Creatinine Clearance 16.24 ml/min (50-250); Glucose 208 mg/dL (70-99); Potassium 4.6 mmol/L (3.3-5.1); Sodium Level 138 mmol/L (133-145)
[2024-05-05] MEDS: cloNIDine HCl 0.1 MG Tablet PO (08:53)
[2024-05-05] MEDS: Bumetanide 1 MG/4 ML Vial 2 MG IV (08:53)
[2024-05-05] MEDS: Carvedilol 25 MG Tablet PO (08:53)
[2024-05-05] MEDS: Pantoprazole Sodium 40 MG Tablet PO (08:54)
[2024-05-05] MEDS: NIFEdipine 90 MG Tablet PO (08:54)
[2024-05-05] MEDS: Docusate Sodium 100 MG Capsule PO (08:54)
[2024-05-05] MEDS: Ascorbic Acid 500 MG Tablet 250 MG PO (08:55)
[2024-05-05] MEDS: Cholecalciferol (Vit D3) 125 MCG CAPSULE (5,000 UNITS) 250 MCG PO (08:55)
[2024-05-05] MEDS: Pyridoxine HCl 100 MG Tablet 250 MG PO (08:55)
[2024-05-05] MEDS: 0.9% Saline Lock 10 ML Syringe IV ×2 (08:56→10:51)
--- NOTE | 2024-05-05 10:28 | CM.UR ---
RN DELGADO received message for daughter Bridger requesting SNF for patient. RN CM in to discuss discharge planning with patient and updated patient regarding SNF request from daughter. Patient states that his daughters work in dietary at [employer] and want to keep and eye on him. RN CM discussed progress with therapy, 150ft Contact guard and that insurance would not approve patient to go to SNF. Patient states daughter is concerned because he doesn't eat much at home. Patient states due to his blindness he has trouble finding things but know where items are for peanut butter and jelly sandwich and ravioli to heat up. RN CM discussed family organizing fridge and cupboards in a way that patient would know where items are to eat during the day, patient voiced understanding. Patient had no further questions or concerns. RN CM called daughter and discussed progress with therapy and that patient [facility]td[facility] would deny SNF at discharge. RN CM encourage daughter to discuss goals or care with patient and her mother and possibly applying for Medicaid, daughter voiced understanding. Daughter had no further questions or concerns. RN DELGADO called from Bobbi at [facility] regarding HD setup and chair time. RN CM updated Bobbi that patient is yet to be scheduled for outpatient procedure for HD cath placement. Patient has chair time of MWF [id number]. SOLANGE NATARAJAN to update Bobbi with new information when available. RN CM updated hospitalist and movie star regarding planned chair time.
[2024-05-05] MEDS: hydrALAZINE 20 MG/ML Vial 10 MG IV (10:50)
[2024-05-05] MEDS: Ferrous Sulfate 325 MG Tablet PO (11:27)
--- NOTE | 2024-05-05 11:27 | PN.RENAL_ITS ---
Subjective Subjective Sitting in chair, no complaints today. Objective Data Objective Data Vital Signs: Vital Signs Temp Pulse Resp BP Pulse Ox O2 Del Method O2 Flow Rate 98.3 F 62 18 165/43 H 98 Room Air 2 05/05/24 10:47 05/05/24 10:50 05/05/24 10:47 05/05/24 11:22 05/05/24 10:47 05/05/24 10:47 05/02/24 03:34 Oxygen Flow Rate (L/min) 2 Oxygen Delivery Method Room Air Weight: 78.5 kg Body Mass Index (BMI) 26.3 Intake & Output: Intake and Output for Last 24 Hours 05/03/24 05/04/24 05/05/24 23:59 23:59 23:59 Intake Total 1275 / 1275 810 / 810 Output Total 1200 / 1200 750 / 750 Balance 75 / 75 60 / 60 Lab / Micro Data 05/04/24 05:30 05/05/24 06:01 Labs: Laboratory Results - last 24 hr 05/04/24 05:30: Hep Bs Antigen Nonreactive 05/04/24 11:35: POC Glucose 162 H 05/04/24 16:40: POC Glucose 166 H 05/04/24 20:39: POC Glucose 206 H 05/05/24 06:01: Sodium 138, Potassium 4.6, Chloride 107, Carbon Dioxide 18.0 L, Anion Gap 12, BUN 41 H, Creatinine 4.68 H, Estim Creat Clear Calc 16.24 L, Est GFR (MDRD) Non-Af 14 L, BUN/Creatinine Ratio 8.8 L, Glucose 208 H, Calcium 7.9 05/05/24 06:12: POC Glucose 198 H Physical Exam Narrative Alert and oriented x 3, no apparent distress. Sitting in chair at bedside. S1, S2, RRR Lung sounds diminished. No rales or rhonchi Abdomen soft, nontender. Ostomy intact. 2+ pitting edema bilateral lower legs Assessment & Plan Assessment/Plan (1) Acute kidney injury: PLAN: New ESRD. Kidney function remaining about the same today. Bumex 2 mg IV twice daily. Urine output about the same. Still has pitting edema. No hyperkalemia or acidemia and no significant uremic symptoms that patient needs emergent renal placement therapy. Patient still has mild hypervolemia but should improve once he begins [employer]. He remains on room air. Appreciate surgery team seeing patient for tunneled hemodialysis catheter. Tunneled dialysis catheter to be placed . Patient is off Plavix. Okay for discharge per renal, for patient to go home, return to hospital for tunneled hemodialysis catheter placement and to begin first hemodialysis session Saturday at kidney center in [place]. Reviewed with patient importance of following low potassium diet. Discussed with case management about outpatient HD arrangements underway at [facility]. Hepatitis B resulted negative. Assessment and plan reviewed with Dr. Wen.
[2024-05-05 12:03] LABS: Bedside Glucose 255 mg/dL (74-106)
--- NOTE | 2024-05-05 12:07 | PCM.DC ---
Discharge Instructions Diet Discharge Diet: 6 Cup Fluid Restriction and Renal Diet DC O2, CPAP, BIPAP needs Home O2 Discharge instructions: No Dressing / Incision Discharge Activity: Return to Normal Activity Dressing / Incision Call your doctor if you observe: Fever of 101 or Higher, Shortness of breath, Dizziness, Fainting spells, Swelling in the ankles, Chest pain and Increased palpitations (irregular heartbeat) Follow Up Care Test Results: Test results from this visit will be discussed in further detail at your follow-up appointment, if applicable. Discharge Plan Admission Admit Date/Time: 04/29/24 13:44 Attending Provider: David Hensley Primary Care Provider: Adina Bhat NP Consulting Providers: Lamine Smith; Nixon Wall; Pat Baird; Carina Nevarez; Denisa Norton Discharge Orders/Prescriptions Prescriptions: New bumetanide 2 mg tablet 2 mg PO BID 30 Days Qty: 60 0RF Continued ascorbic acid (vitamin C) 250 mg tablet 250 mg PO DAILY cholecalciferol (vitamin D3) 250 mcg (10,000 unit) capsule 250 mcg PO DAILY ferrous sulfate 325 mg (65 mg iron) tablet 325 mg PO DAILY docusate sodium 100 mg capsule 100 mg PO DAILY Tremfya 100 mg/mL syringe 100 mg subcut Q4W clonidine HCl 0.1 mg tablet 0.05 mg PO BID 30 Days Qty: 30 4RF carvedilol 25 mg tablet 25 mg PO BID Qty: 60 12RF Rx Instructions: must administer with a meal/food pantoprazole 40 mg Tablet,Delayed Release (Dr/Ec) 40 mg PO BID Qty: 60 3RF atorvastatin 80 mg Tablet 80 mg PO QHS Qty: 30 2RF albuterol sulfate 90 mcg/actuation HFA aerosol inhaler See Rx Instructions .ROUTE .COMPLEX PRN (Reason: shortness of breath or wheezing) Qty: 8.5 0RF Rx Instructions: 1-2 puffs every 4-6 hours as needed for shortness of breath or wheezing potassium chloride 20 mEq tablet extended release 20 meq PO DAILY nifedipine 90 mg tablet extended release 24hr 90 mg PO DAILY Qty: 90 3RF dapagliflozin propanediol [Farxiga] 10 mg tablet 10 mg PO QAM Qty: 90 3RF Held clopidogrel 75 mg tablet 75 mg PO DAILY Qty: 30 4RF Hold Instructions: Resume on 05/11/24. Discontinued furosemide [Lasix] 40 mg tablet 40 mg PO BIDCM Qty: 60 0RF Patient Comments: STARTED AGAIN ON 04/28/24 Referrals / Follow Up: Isaias Castro MD [Med Staff - Active Staff] - 05/07/24 (Outpatient placement of tunneled dialysis catheter) Pat Baird MD [Med Staff - Consulting] - Within 2 Weeks Adina Bhat NP, FILTER PRESS OPERATOR-C [Primary Care Provider] - Within 1 Week Disposition Disposition (needs filled in before D/C Order can be placed): Home, Self Care
--- NOTE | 2024-05-05 13:45 | NURSING ---
This RN spoke with surgery scheduling and was informed that Ayana submitted a request for a PAT call and that pt is scheduled for his dialysis catheter as an outpatient and will be under a different billing number. Halle NARVAEZ
--- NOTE | 2024-05-05 14:53 | PCM.DC.SUM ---
Providers Date of Admission: 04/29/24 Primary Care Physician: DEVONTE Zimmerman Consultations 04/30/24 09:42 Consult: Nephrology Routine Consulting Provider: Pat Baird Reason for Consult: CHF exac w/ worsening Cr in setting of CKD4, difficulty w/ volume removal EMERGENT Consult: No Notified: Yes Date Notified: 04/30/24 Time Notified: 13:29 Method of Notification: Answering Service 05/04/24 12:48 Consult: General Surgery Routine Consulting Provider: Denisa Norton Reason for Consult: tunneled HD catheter EMERGENT Consult: No Notified: Yes Date Notified: 05/04/24 Time Notified: 12:48 Method of Notification: Text Reason For Visit: CHF EXACERBATION, CONCERN FOR PE Diagnosis Discharge Diagnosis (1) Acute kidney injury: Status: Acute Code(s): N17.9 - Acute kidney failure, unspecified Medications at Discharge Home Medications guselkumab 100 mg/mL subcutaneous syringe (TremfThe Poshpacker) 100 mg subcut Q4W ARTHRITIS 04/23/22 nifedipine 90 mg tablet,extended release 24 hr 90 mg PO DAILY blood pressure #90 tabs 05/08/23 atorvastatin 80 mg tablet 80 mg PO QHS cholesterol #30 tabs 12/14/23 albuterol sulfate 90 mcg/actuation aerosol inhaler See Rx Instructions .Route .COMPLEX PRN shortness of breath or wheezing #8.5 grams 01/01/24 clonidine HCl 0.1 mg tablet 0.05 mg (1/2 x 0.1 mg) PO BID blood pressure 30 days #30 tabs 01/24/24 clopidogrel 75 mg tablet 75 mg PO DAILY anti platelet #30 tabs 01/24/24 Held on 05/05/24. Instructions: Resume on 05/11/24. pantoprazole 40 mg tablet,delayed release 40 mg PO BID #60 tabs 01/31/24 ascorbic acid (vitamin C) 250 mg tablet 250 mg PO DAILY 02/06/24 cholecalciferol (vitamin D3) 250 mcg (10,000 unit) capsule 250 mcg PO DAILY 02/06/24 docusate sodium 100 mg capsule 100 mg PO DAILY 02/13/24 ferrous sulfate 325 mg (65 mg iron) tablet 325 mg PO DAILY 02/13/24 dapagliflozin propanediol 10 mg tablet (Farxiga) 10 mg PO QAM diabetes #90 tabs 02/19/24 carvedilol 25 mg tablet 25 mg PO BID blood pressure #60 tabs 04/28/24 potassium chloride 20 mEq tablet,extended release 20 meq PO DAILY 04/29/24 bumetanide 2 mg tablet 2 mg PO BID 30 days #60 tabs 05/05/24 Hospital Course Operations None Procedures 2-D Echocardiogram Summary of Care Provided Minutes Spent on Discharge: 34 Hospital Course: Per HPI: SVEN DUONG, is a 58 M who presented to [facility] ED on 04/29/2024 with worsening shortness of breath and lower extremity swelling. Medical history is significant for CKD stage IV, PAD with left SFA stent placement in 06/04, mild CVA with moderate bilateral carotid stenosis, nonobstructive CAD, hypertension, hyperlipidemia, chronic anemia, recurrent upper GI bleed secondary to erosive esophagitis, and severe hidradenitis suppurativa with chronic thigh and buttock wounds s/p colostomy placement. He saw his PCP yesterday and noted that he has had worsening shortness of breath with exertion, orthopnea, cough with congestion and weight gain over the past few weeks. Given concern for new onset heart failure, labs were obtained and showed BNP 73495 and D-dimer 1.76, so patient was sent to the ED for further evaluation. In the ED patient was hypertensive to the 190s to 200 systolic but otherwise stable and breathing comfortably on room air at rest. Chest x-ray showed pulmonary vascular congestion and mild CHF with borderline cardiomegaly along with hyperinflation. Creatinine was 3.77 (baseline around 3.4) so CTA chest was not done. Given all of these findings, hospitalist was contacted for admission. I saw the patient at bedside in the ED, was present. Patient was mildly fatigued appearing but otherwise sitting up comfortably at the edge of the bed, conversing normally and in no acute distress. He was breathing comfortably on room air at rest. He did note significantly worsening lower extremity edema over the past several days, along with mild shortness of breath with exertion and orthopnea. He denies any significant shortness of breath with minimal exertion or presyncopal symptoms. Has been taking his Lasix at home as prescribed with decent urine output. Denies any other acute concerns at this time. Hospital Course: 1. Acute hypoxic respiratory insufficiency secondary to acute on chronic exacerbation of diastolic CHF/new ESRD?58-year-old male presented to the hospital with worsening shortness of breath and lower extremity edema. In the middle of his hospitalization he did require oxygen for short period of time consistent with an exacerbation of his CHF. He was started on Bumex and had decent diuresis however his renal function continued to climb. He ultimately transition to needing dialysis though unfortunately because of the delay in the determination he had been continued on his Plavix therefore a dialysis catheter cannot be placed during the hospitalization. Since he is still making urine and it looks like his renal function has stabilized somewhat, nephrology indicated that he would be stable for discharge and have a catheter for dialysis place as an outpatient. Plan will be for tunneled dialysis catheter to be placed on with his first dialysis on Saturday. In the meantime he will hold his Plavix until Saturday. He did have an echo on 04/29/2024 with an EF of 65% and concentric left ventricular hypertrophy. Will transition him from his home Lasix to Bumex 2 mg twice daily p.o. with outpatient follow-up with his PCP as well as nephrology. I discussed with him the plan for discharge today and he expressed understanding of the risks and benefits of going home and would like to go home today. 2. Essential hypertension, hyperlipidemia, CAD status post stents, peripheral artery disease status post stents, history of CVA, type 2 diabetes, COPD, GERD are all chronic medical conditions which complicate his care. His home medications were continued where appropriate Physical Exam Narrative General: Alert, Oriented x3, Cooperative, No apparent distress HEENT: Atraumatic, PERRLA, EOMI, Normocephalic Oral: Moist Mucosa Neck: Supple, No JVD Lungs: Diminished, Normal air movement, No rhonchi, No wheeze, No rales Cardiovascular: Regular rate, Regular Rhythm, Normal S1, Normal S2, No murmurs Abdomen: Soft, Non Tender, Non-Distended, No Hepato-splenomegaly Extremities: Trace edema, Capillary Refill Less than 3 Seconds Skin: No rashes, No breakdown Musculoskeletal: No Tenderness to Palpation of Joints or Extremities Neurological: No focal neurological deficits, Motor Exam 5/5 strength throughout, Sensory exam intact to light touch and pain Psych/Mental Status: Normal Affect, Appropriate Weight / BMI Weight Weight: 173 lb 1.006 oz Body Mass Index (BMI) 26.3 ABG / Lab / Microbiology Data 05/04/24 05:30 05/05/24 06:01 Laboratory: Laboratory Results - last 24 hr 05/04/24 05:30: Hep Bs Antigen Nonreactive 05/04/24 16:40: POC Glucose 166 H 05/04/24 20:39: POC Glucose 206 H 05/05/24 06:01: Sodium 138, Potassium 4.6, Chloride 107, Carbon Dioxide 18.0 L, Anion Gap 12, BUN 41 H, Creatinine 4.68 H, Estim Creat Clear Calc 16.24 L, Est GFR (MDRD) Non-Af 14 L, BUN/Creatinine Ratio 8.8 L, Glucose 208 H, Calcium 7.9 05/05/24 06:12: POC Glucose 198 H 05/05/24 11:26: POC Glucose 255 H D/C Instructions Discharge Diet: 6 Cup Fluid Restriction and Renal Diet Call your doctor if you observe: Fever of 101 or Higher, Shortness of breath, Dizziness, Fainting spells, Swelling in the ankles, Chest pain and Increased palpitations (irregular heartbeat) DC O2, CPAP, BIPAP Needs Home O2 Discharge instructions: No Meaningful Use Info Meaningful Use Meaningful Use Diagnoses (Choose all that apply): None applicable Ischemic Stroke Statin Dosing Therapy Reference: STATIN DOSE THERAPY REFERENCE: * Patients > 75 years receive moderate or high dose statin therapy. * Patients 75 years or YOUNGER should receive HIGH intensity statin dose unless contraindicated. You will be required to document reason for non-treatment if statin daily dose does not meet guidelines. HIGH DOSE STATIN THERAPY DAILY Atorvastatin > than or = to 40 mg Rosuvastatin > than or = to 20 mg Amlodipine + Atorvastatin > than or = to 2.5/40 mg Ezetimibe + Simvastatin 10/80 mg Simvastatin 80mg Discharge Plan Admission Admit Date/Time: 04/29/24 13:44 Attending Provider: David Hensley Primary Care Provider: Adina Bhat NP Consulting Providers: Lamine Smith; Nixon Wall; Pat Baird; Carina Nevarez; Denisa Norton Instructions Additional Instructions / Restrictions: He will have a tunneled dialysis catheter placed as an outpatient on and then you will have your first dialysis on Saturday. Discharge Orders/Prescriptions Prescriptions: New bumetanide 2 mg tablet 2 mg PO BID 30 Days Qty: 60 0RF Continued ascorbic acid (vitamin C) 250 mg tablet 250 mg PO DAILY cholecalciferol (vitamin D3) 250 mcg (10,000 unit) capsule 250 mcg PO DAILY ferrous sulfate 325 mg (65 mg iron) tablet 325 mg PO DAILY docusate sodium 100 mg capsule 100 mg PO DAILY Tremfya 100 mg/mL syringe 100 mg subcut Q4W clonidine HCl 0.1 mg tablet 0.05 mg PO BID 30 Days Qty: 30 4RF carvedilol 25 mg tablet 25 mg PO BID Qty: 60 12RF Rx Instructions: must administer with a meal/food pantoprazole 40 mg Tablet,Delayed Release (Dr/Ec) 40 mg PO BID Qty: 60 3RF atorvastatin 80 mg Tablet 80 mg PO QHS Qty: 30 2RF albuterol sulfate 90 mcg/actuation HFA aerosol inhaler See Rx Instructions .ROUTE .COMPLEX PRN (Reason: shortness of breath or wheezing) Qty: 8.5 0RF Rx Instructions: 1-2 puffs every 4-6 hours as needed for shortness of breath or wheezing potassium chloride 20 mEq tablet extended release 20 meq PO DAILY nifedipine 90 mg tablet extended release 24hr 90 mg PO DAILY Qty: 90 3RF dapagliflozin propanediol [Farxiga] 10 mg tablet 10 mg PO QAM Qty: 90 3RF Held clopidogrel 75 mg tablet 75 mg PO DAILY Qty: 30 4RF Hold Instructions: Resume on 05/11/24. Discontinued furosemide [Lasix] 40 mg tablet 40 mg PO BIDCM Qty: 60 0RF Patient Comments: STARTED AGAIN ON 04/28/24 Referrals / Follow Up: Isaias Castro MD [Med Staff - Active Staff] - 05/07/24 (Outpatient placement of tunneled dialysis catheter) Pat Baird MD [Med Staff - Consulting] - Within 2 Weeks (They will call you with an appointment. ) Adina Bhat NP, [employer] [facility] [Primary Care Provider] - Within 1 Week Disposition Disposition (needs filled in before D/C Order can be placed): Home, Self Care Charges/Coding Visit Charges Inpatient E&M: 71059 Disch Hosp >30min
--- NOTE | 2024-05-05 15:13 | CASEMGMT ---
SOLANGE NATARAJAN received treatment schedule on [facility], MW [id number] with first treatment 05/08/24. SOLANGE NTAARAJAN received message from Bobbi at [facility] to discuss outpatient setup. SOLANGE NATARAJAN updated Bobbi that patient is scheduled to have tunnelled cath placed as an outpatient on and will be ready for outpatient HD on Saturday05/08/24. Bobbi requested that cath report be sent as soon as possible after report is available to aid in setup for Saturday. 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 Per hospitalist patient is on schedule for tunnelled cath placement on and will discharge home today. PCU charge nurse confirmed with community development planner that patient is discharging today and surgery will call patient at home and notify of surgery time on . SOLANGE NATARAJAN updated patient regarding outpatient HD on Saturday and planned outpatient surgery for . Patient denies further needs. SOLANGE NATARAJAN attempted to update , no answer and unable to leave as mailbox is full. SOLANGE NATARAJAN updated discharge plan.
--- NOTE | 2024-05-05 15:23 | PHA.DC.MC.R ---
Pharmacy [facility] has performed discharge medication reconciliation and counseling for this patient. 1. BUMETANIDE 2MG PO BID 2. STOP LASIX 3. RESUME CLOPIDOGREL 05/11 The patient's discharge medication list was reviewed for discrepancies and discrepancies were resolved. The patient was counseled on the following discharge medications and changes in medications for homegoing were reviewed. The Reason for Use, instructions for use, and potential side effects were reviewed for all new medications. The patient's questions regarding all of their medications were answered. The patient was able to verbally demonstrate an understanding of their discharge medications. Medications at Discharge Home Medications guselkumab 100 mg/mL subcutaneous syringe (Tremfya) 100 mg subcut Q4W ARTHRITIS 04/23/22 nifedipine 90 mg tablet,extended release 24 hr 90 mg PO DAILY blood pressure #90 tabs 05/08/23 atorvastatin 80 mg tablet 80 mg PO QHS cholesterol #30 tabs 12/14/23 albuterol sulfate 90 mcg/actuation aerosol inhaler See Rx Instructions .Route .COMPLEX PRN shortness of breath or wheezing #8.5 grams 01/01/24 clonidine HCl 0.1 mg tablet 0.05 mg (1/2 x 0.1 mg) PO BID blood pressure 30 days #30 tabs 01/24/24 clopidogrel 75 mg tablet 75 mg PO DAILY anti platelet #30 tabs 01/24/24 Held on 05/05/24. Instructions: Resume on 05/11/24. pantoprazole 40 mg tablet,delayed release 40 mg PO BID #60 tabs 01/31/24 ascorbic acid (vitamin C) 250 mg tablet 250 mg PO DAILY 02/06/24 cholecalciferol (vitamin D3) 250 mcg (10,000 unit) capsule 250 mcg PO DAILY 02/06/24 docusate sodium 100 mg capsule 100 mg PO DAILY 02/13/24 ferrous sulfate 325 mg (65 mg iron) tablet 325 mg PO DAILY 02/13/24 dapagliflozin propanediol 10 mg tablet (Farxiga) 10 mg PO QAM diabetes #90 tabs 02/19/24 carvedilol 25 mg tablet 25 mg PO BID blood pressure #60 tabs 04/28/24 potassium chloride 20 mEq tablet,extended release 20 meq PO DAILY 04/29/24 bumetanide 2 mg tablet 2 mg PO BID 30 days #60 tabs 05/05/24
--- NOTE | 2024-05-07 15:27 | CASEMGMT ---
Tunneled cath Operative Report and Hep B results Faxed to Carlos @ [phone]. Documents sent through the portal as well. [facility] who states that there are no further needs.
== END 2024-05-05 16:20 | disposition home or self-care (01) | DRG 291 ==
LOC: ED 13:52 → PCU 16:54
PROVIDERS: Nurse Practitioner Adult Health; Admitting Provider Hospitalist; Emergency Provider Emergency Medicine; PCP Nurse Practitioner; Visit Provider Family Medicine
DX: I13.0 Hypertensive heart and chronic kidney disease with heart failure and stage 1 through stage 4 chronic kidney disease, or unspecified chronic kidney disease (principal); I50.33 Acute on chronic diastolic (congestive) heart failure; N17.9 Acute kidney failure, unspecified; N18.4 Chronic kidney disease, stage 4 (severe); I27.20 Pulmonary hypertension, unspecified; E11.22 Type 2 diabetes mellitus with diabetic chronic kidney disease; D50.9 Iron deficiency anemia, unspecified; E11.51 Type 2 diabetes mellitus with diabetic peripheral angiopathy without gangrene; J44.9 Chronic obstructive pulmonary disease, unspecified; Z95.820 Peripheral vascular angioplasty status with implants and grafts; Z93.3 Colostomy status; E78.5 Hyperlipidemia, unspecified; I25.10 Atherosclerotic heart disease of native coronary artery without angina pectoris; F17.210 Nicotine dependence, cigarettes, uncomplicated; K21.00 Gastro-esophageal reflux disease with esophagitis, without bleeding; Z79.4 Long term (current) use of insulin; E87.5 Hyperkalemia; E11.65 Type 2 diabetes mellitus with hyperglycemia; Z79.82 Long term (current) use of aspirin; Z95.5 Presence of coronary angioplasty implant and graft; R80.9 Proteinuria, unspecified; Z79.02 Long term (current) use of antithrombotics/antiplatelets; Z86.73 Personal history of transient ischemic attack (TIA), and cerebral infarction without residual deficits; R63.5 Abnormal weight gain; R19.00 Intra-abdominal and pelvic swelling, mass and lump, unspecified site
CPT/HCPCS: 36415; 71046; 80048; 80053; 82962; 83036; 83880; 84443; 84484; 85025; 85027; 85379; 87340; 93005; 93306; 93970; 94640; 94668; 97116; 97162; 97166; 97530; 99283; 99406; Q9957; A4216; J1940

== ENCOUNTER 2024-05-07 12:54 | Day surgery (SDC) | payer MEDICARE, SELFPAY ==
--- NOTE | 2024-05-06 10:36 | PAT.ANE_ITS ---
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 When Was Last Pacemaker Check QUESTION #4 FULL TEXT: You/Your Family Experience fever (hyperthermia) with Anesthesia Last Oral Intake Last Oral intake: Last Oral Intake NPO since Meds taken in AM with sips of water? 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 Has anyone observed you stop breathing during sleep? STOP Results Positive 05/06/24 08:40 QUESTION #5 FULL TEXT : Do you snore loudly (louder than talking or can be heard through closed doors)? 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 Specify any problems Hx of Preganancy in last 3 N/A 05/06/24 08:40 Months Nurse Filling Out Transfusion NBUCHER 05/06/24 08:40 & Questions: Date: 05/06/24 05/06/24 08:40 Time: 08:42 05/06/24 08:40 Patient unable to answer at this time (ie. 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 water treatment plant operator Hx Now No 05/06/24 08:40 Gestational Age (in weeks): EDC: Hx Hx Para Hx Section SAB No 05/06/24 08:40 [facility] Medical History (Updated 05/06/24 @ 08:49 by Syeda Mckinney) History of GI bleed Smoker Sleep apnea Stroke/cerebrovascular accident Anemia due to chronic kidney disease Chronic pain Congestive heart failure (CHF) Myocardial infarct Chest pain Diabetic hypoglycemia Anemia due to chronic renal failure treated with erythropoietin, stage 4 (severe) Iron deficiency anemia due to chronic blood loss Impaired vision in both eyes Abnormal gait Stroke Chronic kidney disease (CKD) stage G4/A3, severely decreased glomerular filtration rate (GFR) between 15-29 mL/min/1.73 square meter and albuminuria creatinine ratio greater than 300 mg/g Anasarca Congestive heart failure Bilateral pleural effusion Anemia requiring transfusions Symptomatic anemia Signs and symptoms of anemia Acute on chronic anemia Acute on chronic renal failure Acute on chronic blood loss anemia Right sided numbness Dysphagia Iron deficiency Leukocytosis Renal failure (ARF), acute on chronic Gout Vitamin B12 deficiency anemia Hepatitis Hypotension Vitamin D deficiency Abdominal pain Wound, surgical, nonhealing Aftercare following surgery of the circulatory system Atherosclerosis of [place] arteries of extremities with rest pain, left leg Difficulty walking Wears glasses PVD (peripheral vascular disease) Gait instability TIA (transient ischemic attack) Syncope History of echocardiogram Cardiology follow-up encounter Pressure sore of left ischium, stage 3 Resistant hypertension Dyslipidemia Nicotine dependence Nonhealing skin ulcer Peripheral arterial disease Chronic kidney disease History of diverticulitis Acute kidney injury Arthritis Kidney disease Acute kidney injury superimposed on chronic kidney disease Diverticulitis Weight gain with edema DM type 2, goal HbA1c < 7.5% Malnutrition Ulcer of perineum with fat layer exposed Ulcer of scrotum Ulcer of right groin with fat layer exposed Shingles Shingles Post-operative pain Elevated serum creatinine Hemoglobin A1c greater than 8.0 percent Hypokalemia Open wound of scrotum with complication Open wound of buttock with complication Non-healing open wound of right groin Abscess, perineum Abscess of scrotal wall Abscess of right groin Complete edentulism, class III Alcohol use Diabetes Back pain History of ulceration Shortness of breath on exertion History of pain when walking History of edema Hidradenitis suppurativa of anus Suppurative hidradenitis Gastric ulcer Ulcer of perianal area with fat layer exposed Nausea and vomiting Proteinuria due to type 2 diabetes mellitus Lupus (systemic lupus erythematosus) Weakness Edema of both legs Acute post-operative pain 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 Chronic pain Hyperlipidemia Coronary artery disease Diabetes mellitus Chronic obstructive pulmonary disease Debility Colostomy in place Complicated open wound of left thigh Open wound of left buttock with complication Abscess of buttock, left Back pain due to injury History of stress test Smoker Coronary artery disease Abscess of left thigh Wound infection Cellulitis Ankle pain Ankle pain Iron deficiency anemia Ulcer of perineum with fat layer exposed Skin ulcer of scrotum Anemia of chronic disease Ulcer of left groin with fat layer exposed Open wound of scrotum Acute postoperative anemia due to expected blood loss Hidradenitis suppurativa of anus Hypertension Tobacco dependence syndrome Malnutrition Cough Pneumonia involving right lung Hydradenitis Diabetes mellitus type 2, uncontrolled, with complications Hypertension Hyperlipidemia associated with type 2 diabetes mellitus Diabetes type 2, uncontrolled COPD (chronic obstructive pulmonary disease) Hydradenitis Home Medications ?Medication ?Instructions ?Recorded ?Last Taken ?Type guselkumab 100 mg/mL subcutaneous 100 mg subcut Q4W AR THRITIS 04/23/22 04/23/24 History syringe (Tremfya) nifedipine 90 mg tablet,extended 90 mg PO DAILY blood pressure #90 05/08/23 04/28/24 Rx release 24 hr tabs atorvastatin 80 mg tablet 80 mg PO QHS cholesterol #30 tabs 12/14/23 12/25/23 Rx albuterol sulfate 90 mcg/actuation See Rx Instructions .Route 01/01/24 Unknown Rx aerosol inhaler .COMPLEX PRN shortness of br eath or wheezing #8.5 grams clonidine HCl 0.1 mg tablet 0.05 mg (1/2 x 0.1 mg) PO BID 01/24/24 04/28/24 Rx blood pressure 30 days #30 tabs clopidogrel 75 mg tablet 75 mg PO DAILY anti platelet #30 01/24/24 04/28/24 Rx Held on 05/05/24. tabs Instructions: Resume on 05/11/24. pantoprazole 40 mg tablet,delayed 40 mg PO BID #60 tab s 01/31/24 04/28/24 Rx release ascorbic acid (vitamin C) 250 mg 250 mg PO DAILY 02/0504/28/24 History tablet cholecalciferol (vitamin D3) 250 250 mcg PO DAILY 01/1204/28/24 History mcg (10,000 unit) capsule docusate sodium 100 mg capsule 100 mg PO DAILY 5 04/28/24 History ferrous sulfate 325 mg (65 mg 325 mg PO DAILY 02/13/24 04/28/24 History iron) tablet dapagliflozin propanediol 10 mg 10 mg PO QAM diabetes #90 tabs 02/19/24 04/28/24 Rx tablet (Farxiga) carvedilol 25 mg tablet 25 mg PO BID blood pressure #60 04/28/24 04/28/24 Rx tabs potassium chloride 20 mEq 20 meq PO DAILY 04/29/24 History tablet,extended release bumetanide 2 mg tablet 2 mg PO BID 30 days #60 tabs 05/05/24 Unknown Rx Allergy/AdvReac Type Severity Reaction Status Date / Time Penicillins Allergy Unknown Verified 05/06/24 08:37 Sulfa (Sulfonamide Allergy Unknown Verified 05/06/24 08:37 Antibiotics) bupropion (From Wellbutrin) AdvReac Severe change in Verified 05/06/24 08:37 personality ,meanness and smoked more doxycycline AdvReac Severe Vomiting Verified 05/06/24 08:37 Family History Aunt Lung disease lung cancer Father Heart disease Hypertension Family history of high cholesterol Diabetes Mother Diabetes Daughter Epilepsy Surgical History (Updated 05/06/24 @ 08:49 by Syeda Mckinney) History of esophagogastroduodenoscopy (EGD) Hx of vascular surgery History of excision of lesion History of incision and drainage History of coronary artery stent placement History of removal of cyst Hx of hernia repair History of tonsillectomy and adenoidectomy Social History household members: spouse Smoking Status: Current every day smoker tobacco type: cigarettes alcohol intake: never substance use type: does not use caffeine: Yes (7) Type: coffee additional social history: DOES NOT TAKE ASPIRIN DOES NOT TAKE IBUPROFEN Audit: Pertinent Findings Pertinent Findings EKG Perinent findings: 04/29/2024. Normal sinus rhythm [address] and T wave abnormality, consider lateral ischemia. No significant change from January 29, 2024. Echo (EF%) pertinent findings: 04/29/2024. EF 65%. Pulmonary artery systolic pressure 35. Consult pertinent findings: Cardiology 07/31/2023. Coronary artery disease. Chronic. Continue medications. Hypertension. Chronic. Continue medications. Chronic kidney disease. Stage IV. Additional pertinent findings: Anemia hemoglobin 8.1. Creatinine 4.68. These v alues are chronic and no need to assess further Recommendation Anesthesia Recommendation Anesthesia recommendation: OPTIMIZED for anesthesia
[2024-05-07] VITALS (8 sets, daily range): BP systolic 181–193; BP diastolic 41–62; PULSE 54–60; RESP 16; TEMP 36.6–36.9; O2SAT 92–96; BMI 25.2
--- NOTE | 2024-05-07 13:35 | PCM.HP.STD ---
HPI - General HPI Narrative SVEN DUONG, is a 58 M who presents for elective placement of right chest dialysis catheter. He was recently discharged from the hospital and I discussed this with him during his hospitalization. [facility] Medical History (Updated 05/06/24 @ 08:49 by Syeda Mckinney) History of GI bleed Smoker Sleep apnea Stroke/cerebrovascular accident Anemia due to chronic kidney disease Chronic pain Congestive heart failure (CHF) Myocardial infarct Chest pain Diabetic hypoglycemia Anemia due to chronic renal failure treated with erythropoietin, stage 4 (severe) Iron deficiency anemia due to chronic blood loss Impaired vision in both eyes Abnormal gait Stroke Chronic kidney disease (CKD) stage G4/A3, severely decreased glomerular filtration rate (GFR) between 15-29 mL/min/1.73 square meter and albuminuria creatinine ratio greater than 300 mg/g Anasarca Congestive heart failure Bilateral pleural effusion Anemia requiring transfusions Symptomatic anemia Signs and symptoms of anemia Acute on chronic anemia Acute on chronic renal failure Acute on chronic blood loss anemia Right sided numbness Dysphagia Iron deficiency Leukocytosis Renal failure (ARF), acute on chronic Gout Vitamin B12 deficiency anemia Hepatitis Hypotension Vitamin D deficiency Abdominal pain Wound, surgical, nonhealing Aftercare following surgery of the circulatory system Atherosclerosis of [place] arteries of extremities with rest pain, left leg Difficulty walking Wears glasses PVD (peripheral vascular disease) Gait instability TIA (transient ischemic attack) Syncope History of echocardiogram Cardiology follow-up encounter Pressure sore of left ischium, stage 3 Resistant hypertension Dyslipidemia Nicotine dependence Nonhealing skin ulcer Peripheral arterial disease Chronic kidney disease History of diverticulitis Acute kidney injury Arthritis Kidney disease Acute kidney injury superimposed on chronic kidney disease Diverticulitis Weight gain with edema DM type 2, goal HbA1c < 7.5% Malnutrition Ulcer of perineum with fat layer exposed Ulcer of scrotum Ulcer of right groin with fat layer exposed Shingles Shingles Post-operative pain Elevated serum creatinine Hemoglobin A1c greater than 8.0 percent Hypokalemia Open wound of scrotum with complication Open wound of buttock with complication Non-healing open wound of right groin Abscess, perineum Abscess of scrotal wall Abscess of right groin Complete edentulism, class III Alcohol use Diabetes Back pain History of ulceration Shortness of breath on exertion History of pain when walking History of edema Hidradenitis suppurativa of anus Suppurative hidradenitis Gastric ulcer Ulcer of perianal area with fat layer exposed Nausea and vomiting Proteinuria due to type 2 diabetes mellitus Lupus (systemic lupus erythematosus) Weakness Edema of both legs Acute post-operative pain 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 Chronic pain Hyperlipidemia Coronary artery disease Diabetes mellitus Chronic obstructive pulmonary disease Debility Colostomy in place Complicated open wound of left thigh Open wound of left buttock with complication Abscess of buttock, left Back pain due to injury History of stress test Smoker Coronary artery disease Abscess of left thigh Wound infection Cellulitis Ankle pain Ankle pain Iron deficiency anemia Ulcer of perineum with fat layer exposed Skin ulcer of scrotum Anemia of chronic disease Ulcer of left groin with fat layer exposed Open wound of scrotum Acute postoperative anemia due to expected blood loss Hidradenitis suppurativa of anus Hypertension Tobacco dependence syndrome Malnutrition Cough Pneumonia involving right lung Hydradenitis Diabetes mellitus type 2, uncontrolled, with complications Hypertension Hyperlipidemia associated with type 2 diabetes mellitus Diabetes type 2, uncontrolled COPD (chronic obstructive pulmonary disease) Hydradenitis Home Medications ?Medication ?Instructions ?Recorded ?Last Taken ?Type guselkumab 100 mg/mL subcutaneous 100 mg subcut Q4W ARTHRITIS 04/23/22 04/23/24 History syringe (Tremfya) nifedipine 90 mg tablet,extended 90 mg PO DAILY blood pressure #90 05/08/23 05/07/24 11:00 Rx release 24 hr tabs atorvastatin 80 mg tablet 80 mg PO QHS cholesterol #30 tabs 12/14/23 12/25/23 Rx albuterol sulfate 90 mcg/actuation See Rx Instructions .Route 01/01/24 Unknown Rx aerosol inhaler .COMPLEX PRN shortness of breath or wheezing #8.5 grams clonidine HCl 0.1 mg tablet 0.05 mg (1/2 x 0.1 mg) PO BID 01/24/24 05/07/24 11:00 Rx blood pressure 30 days #30 tabs clopidogrel 75 mg tablet 75 mg PO DAILY anti platelet #30 01/24/24 05/03/24 Rx Held on 05/05/24. tabs Instructions: Resume on 05/11/24. pantoprazole 40 mg tablet,delayed 40 mg PO BID #60 tabs 01/31/24 04/28/24 Rx release ascorbic acid (vitamin C) 250 mg 250 mg PO DAILY 02/06/24 04/28/24 History tablet cholecalciferol (vitamin D3) 250 250 mcg PO DAILY 02/06/24 04/28/24 History mcg (10,000 unit) capsule docusate sodium 100 mg capsule 100 mg PO DAILY 02/13/24 04/28/24 History ferrous sulfate 325 mg (65 mg 325 mg PO DAILY 02/13/24 04/28/24 History iron) tablet dapagliflozin propanediol 10 mg 10 mg PO QAM diabetes #90 tabs 02/19/24 04/28/24 Rx tablet (Farxiga) carvedilol 25 mg tablet 25 mg PO BID blood pressure #60 04/28/24 05/07/24 11:00 Rx tabs potassium chloride 20 mEq 20 meq PO DAILY 04/29/24 04/28/24 History tablet,extended release bumetanide 2 mg tablet 2 mg PO BID 30 days #60 tabs 05/05/24 Unknown Rx Allergy/AdvReac Type Severity Reaction Status Date / Time Penicillins Allergy Unknown Verified 05/07/24 13:19 Sulfa (Sulfonamide Allergy Unknown Verified 05/07/24 13:19 Antibiotics) bupropion (From Wellbutrin) AdvReac Severe change in Verified 05/07/24 13:19 personality ,meanness and smoked more doxycycline AdvReac Severe Vomiting Verified 05/07/24 13:19 Family History Aunt Lung disease lung cancer Father Heart disease Hypertension Family history of high cholesterol Diabetes Mother Diabetes Daughter Epilepsy Surgical History (Updated 05/06/24 @ 08:49 by Syeda Mckinney) History of esophagogastroduodenoscopy (EGD) Hx of vascular surgery History of excision of lesion History of incision and drainage History of coronary artery stent placement History of removal of cyst Hx of hernia repair History of tonsillectomy and adenoidectomy Social History household members: spouse Smoking Status: Current every day smoker tobacco type: cigarettes alcohol intake: never substance use type: does not use caffeine: Yes (7) Type: coffee additional social history: DOES NOT TAKE ASPIRIN DOES NOT TAKE IBUPROFEN Vital Signs Vital Signs Vital Signs: 05/07/24 13:20 05/07/24 13:20 Temperature 98.4 F Temperature Source Temporal Pulse Rate 54 L Respiratory Rate 16 Respiratory Pattern Normal Blood Pressure 181/41 H Blood Pressure Mean 87 Blood Pressure Source Monitor Blood Pressure Position Sitting Blood Pressure Location Right Arm Pulse Ox 96 Oxygen Delivery Method Room Air Weight Weight: 166 lb 7.184 oz Body Mass Index (BMI) 25.2 Physical Exam Const alert and oriented x3 HEENT normocephalic Eyes PERRL Resp normal respiratory effort and normal air movement Cardio regular rate and regular rhythm GI soft to palpation, non-tender and non-distended Extremity normal to inspection Assessment & Plan Assessment/Plan (1) CKD (chronic kidney disease) stage 4, GFR 15-29 ml/min: PLAN: Patient has chronic kidney disease and requires tunneled dialysis catheter. I discussed this with him in detail. I discussed the risks of bleeding, infection, pneumothorax, line infection or DVT. Patient understands the risks and is willing to proceed. Isaias Castro MD Pager: [facility] [address] [place] [address], [address] [place] [phone] Office:
[2024-05-07 13:44] LABS: Bedside Glucose 106 mg/dL (74-106)
--- NOTE | 2024-05-07 13:57 | PCM.PRE.AN2 ---
ASA Classification* ASA Classification ASA Classification: 4 Assessment & Plan Anesthesia* Anesthesia Assessment Anesthesia Assessment: Discussed sedation and/or anesthesia options, risks, benefits, and alternatives with patient/parents/legal guardian/POA. Questions invited. The patient/parents/legal guardian/POA seems to understand and agrees to proceed with anesthesia plan. Reviewed the physical assessment, medical history, allergy history and patient home medications list prior to surgery/procedure/anesthetic and documented any changes. Performed airway and anesthesia risk assessments. Anesthesia Type Anesthesia Type: MAC History Source History Obtained from:: Patient and Chart Anesthesia Focused Assessment* Temperature: 98.4 F Pulse Rate: 54 Blood Pressure: 181/41 Respiratory Rate: 16 Pulse Ox: 96 Oxygen Delivery Method: Room Air Airway Assessment Mouth opens: >3 cm Mallampati Score: IV Teeth Condition: Missing (Patient is edentulous.) Neck Range of motion (ROM): Limited ROM Comment: Patient has full torres. Focused Labs Anesthesia Preop lab: CBC WBC 8.2 K/mm3 (4.4-11.0) 05/04/24 05:30 05/04/24 RBC 2.74 M/mm3 (4.6-6.2) L 05/04/24 05:30 05/04/24 Hgb 8.1 g/dL (13.0-16.5) L 05/04/24 05:30 05/04/24 Hct 25.1 % (40-54) L 05/04/24 05:30 05/04/24 Plt Count 236 K/mm3 (150-450) 05/04/24 05:30 05/04/24 CHEMISTRY Potassium 4.6 mmol/L (3.3-5.1) 05/05/24 06:01 05/05/24 Sodium 138 mmol/L (133-145) 05/05/24 06:01 05/05/24 Magnesium 1.8 mg/dL (1.6-2.6) 01/29/24 19:32 01/29/24 Phosphorus 4.1 mg/dL (2.5-4.9) 02/17/24 23:59 02/17/24 BUN 41 mg/dL (4-19) H 05/05/24 06:01 05/05/24 Creatinine 4.68 mg/dL (0.70-1.20) H 05/05/24 06:01 05/05/24 Glucose 208 mg/dL (70-99) H 05/05/24 06:01 05/05/24 POC Glucose 106 mg/dL (74-106) 05/07/24 13:15 05/07/24 TSH 3.570 uIU/mL (0.300-4.200) 04/28/24 23:59 04/28/24 COAG PT 13.7 SECONDS (11.7-14.9) 01/29/24 06:02 01/29/24 Pre-Assessment Diagnosis/Proposed Procedure Planned Operative Procedure(s): HEMODIALYSIS CATH INSERTION Anesthesia History 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 When Was Last Pacemaker Check QUESTION #4 FULL TEXT: You/Your Family Experience fever (hyperthermia) with Anesthesia Last Oral Intake Last Oral intake: Last Oral Intake NPO since 11:00 05/07/24 13:20 Meds taken in AM with sips of Yes 05/07/24 13:20 water? Meds patient instructed to see med rec 05/07/24 13:20 take am of surgery Any additional information?: Yes NPO since: 11:00 (Patient took meds with sip of water at 11 AM) Meds taken in AM with sips of water?: Yes PONV PONV - music journalist: PONV - music journalist Female No 05/06/24 08:40 HX of Motion Sickness No 05/06/24 08:40 HX of N/V After Surgery No 05/06/24 08:40 Non-Smoker No 05/06/24 08:40 Duration of Surgery greater No 05/06/24 08:40 than 60 minutes Number of Risk Factors PONV Score Height & Weight Height & Weight: Anesthesia: Height & Weight Height 5 ft 8 in 05/07/24 13:20 Weight: 75.5 kg 05/07/24 13:20 Body Mass Index (BMI) 25.2 05/07/24 13:20 Respiratory Assessment Respiratory Assessment - music journalist: Respiratory Tract Infection Hx - music journalist Hx Respiratory Tract Infection No 05/06/24 08:40 Any additional information?: Yes Hx Respiratory Tract Infection: No (Patient was in the hospital last week with CHF. Home for 2 days.) STOP Sleep Apnea STOP Sleep Apnea - music journalist: STOP Sleep Apnea - music journalist Hx Hypertension Yes: CONTROLLED WITH MED 05/06/24 08:40 Hx Sleep Apnea Yes: PT STATES UNAWARE THAT 05/06/24 08:40 HE IS TO USE MACHINE CPAP No 05/06/24 08:40 BIPAP No 05/06/24 08:40 Do you snore loudly (louder than talking or can be heard Do you often feel tired/ fatigued/ sleepy during daytime? Has anyone observed you stop breathing during sleep? STOP Results Positive 05/06/24 08:40 QUESTION #5 FULL TEXT : Do you snore loudly (louder than talking or can be heard through closed doors)? Tobacco Use History Tobacco Use History - music journalist: Tobacco Use History - music journalist Tobacco Use Cigarettes 12/14/23 10:00 Smoking Status Current every day smoker 05/06/24 08:40 Hx Tobacco Use Yes 05/06/24 08:40 Years Smoking Packs Smoked per Day 1 05/06/24 08:40 Smoking Cessation Date was within the last 15 years Hx Smoking Cessation Date Hx Smoking Cessation Yes 05/06/24 08:40 Counseling Any additional information?: Yes Smoking Status: Current every day smoker (Patient smoked today.) Hematologic Medial History Hematologic Hx - music journalist: Hematologic Medical Hx - manager respiratory care Hx of Blood Transfusion Yes 05/06/24 08:40 Hx of Transfusion in last 3 Yes 05/06/24 08:40 Months Date of Last Transfusion (if 02/12/2024 05/06/24 08:40 within last 3 months) Ever experience any problems No 05/06/24 08:40 with transfusion(s)? Specify any problems Hx of Preganancy in last 3 N/A 05/06/24 08:40 Months Nurse Filling Out Transfusion NBUCHER 05/06/24 08:40 & Questions: Date: 05/06/24 05/06/24 08:40 Time: 08:42 05/06/24 08:40 Patient unable to answer at this time (ie. confused, unrespo /Reproduction History /Reproductive History - music journalist: /Reproductive Hx- music journalist Hx Now No 05/06/24 08:40 Gestational Age (in weeks): EDC: Hx Hx Para Hx Section SAB No 05/06/24 08:40 [facility] Medical History History of GI bleed Smoker Sleep apnea Stroke/cerebrovascular accident Anemia due to chronic kidney disease Chronic pain Congestive heart failure (CHF) Myocardial infarct Chest pain Diabetic hypoglycemia Anemia due to chronic renal failure treated with erythropoietin, stage 4 (severe) Iron deficiency anemia due to chronic blood loss Impaired vision in both eyes Abnormal gait Stroke Chronic kidney disease (CKD) stage G4/A3, severely decreased glomerular filtration rate (GFR) between 15-29 mL/min/1.73 square meter and albuminuria creatinine ratio greater than 300 mg/g Anasarca Congestive heart failure Bilateral pleural effusion Anemia requiring transfusions Symptomatic anemia Signs and symptoms of anemia Acute on chronic anemia Acute on chronic renal failure Acute on chronic blood loss anemia Right sided numbness Dysphagia Iron deficiency Leukocytosis Renal failure (ARF), acute on chronic Gout Vitamin B12 deficiency anemia Hepatitis Hypotension Vitamin D deficiency Abdominal pain Wound, surgical, nonhealing Aftercare following surgery of the circulatory system Atherosclerosis of kiana arteries of extremities with rest pain, left leg Difficulty walking Wears glasses PVD (peripheral vascular disease) Gait instability TIA (transient ischemic attack) Syncope History of echocardiogram Cardiology follow-up encounter Pressure sore of left ischium, stage 3 Resistant hypertension Dyslipidemia Nicotine dependence Nonhealing skin ulcer Peripheral arterial disease Chronic kidney disease History of diverticulitis Acute kidney injury Arthritis Kidney disease Acute kidney injury superimposed on chronic kidney disease Diverticulitis Weight gain with edema DM type 2, goal HbA1c < 7.5% Malnutrition Ulcer of perineum with fat layer exposed Ulcer of scrotum Ulcer of right groin with fat layer exposed Shingles Shingles Post-operative pain Elevated serum creatinine Hemoglobin A1c greater than 8.0 percent Hypokalemia Open wound of scrotum with complication Open wound of buttock with complication Non-healing open wound of right groin Abscess, perineum Abscess of scrotal wall Abscess of right groin Complete edentulism, class III Alcohol use Diabetes Back pain History of ulceration Shortness of breath on exertion History of pain when walking History of edema Hidradenitis suppurativa of anus Suppurative hidradenitis Gastric ulcer Ulcer of perianal area with fat layer exposed Nausea and vomiting Proteinuria due to type 2 diabetes mellitus Lupus (systemic lupus erythematosus) Weakness Edema of both legs Acute post-operative pain 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 Chronic pain Hyperlipidemia Coronary artery disease Diabetes mellitus Chronic obstructive pulmonary disease Debility Colostomy in place Complicated open wound of left thigh Open wound of left buttock with complication Abscess of buttock, left Back pain due to injury History of stress test Smoker Coronary artery disease Abscess of left thigh Wound infection Cellulitis Ankle pain Ankle pain Iron deficiency anemia Ulcer of perineum with fat layer exposed Skin ulcer of scrotum Anemia of chronic disease Ulcer of left groin with fat layer exposed Open wound of scrotum Acute postoperative anemia due to expected blood loss Hidradenitis suppurativa of anus Hypertension Tobacco dependence syndrome Malnutrition Cough Pneumonia involving right lung Hydradenitis Diabetes mellitus type 2, uncontrolled, with complications Hypertension Hyperlipidemia associated with type 2 diabetes mellitus Diabetes type 2, uncontrolled COPD (chronic obstructive pulmonary disease) Hydradenitis Home Medications ?Medication ?Instructions ?Recorded ?Last Taken ?Type guselkumab 100 mg/mL subcutaneous 100 mg subcut Q4W ARTHRITIS 04/23/22 04/23/24 History syringe (Tremfya) nifedipine 90 mg tablet,extended 90 mg PO DAILY blood pressure #90 05/08/23 05/07/24 11:00 Rx release 24 hr tabs atorvastatin 80 mg tablet 80 mg PO QHS cholesterol #30 tabs 12/14/23 12/25/23 Rx albuterol sulfate 90 mcg/actuation See Rx Instructions .Route 01/01/24 Unknown Rx aerosol inhaler .COMPLEX PRN shortness of breath or wheezing #8.5 grams clonidine HCl 0.1 mg tablet 0.05 mg (1/2 x 0.1 mg) PO BID 01/24/24 05/07/24 11:00 Rx blood pressure 30 days #30 tabs clopidogrel 75 mg tablet 75 mg PO DAILY anti platelet #30 01/24/24 05/03/24 Rx Held on 05/05/24. tabs Instructions: Resume on 05/11/24. pantoprazole 40 mg tablet,delayed 40 mg PO BID #60 tabs 01/31/24 04/28/24 Rx release ascorbic acid (vitamin C) 250 mg 250 mg PO DAILY 02/06/24 04/28/24 History tablet cholecalciferol (vitamin D3) 250 250 mcg PO DAILY 02/06/24 04/28/24 History mcg (10,000 unit) capsule docusate sodium 100 mg capsule 100 mg PO DAILY 02/13/24 04/28/24 History ferrous sulfate 325 mg (65 mg 325 mg PO DAILY 02/13/24 04/28/24 History iron) tablet dapagliflozin propanediol 10 mg 10 mg PO QAM diabetes #90 tabs 02/19/24 04/28/24 Rx tablet (Farxiga) carvedilol 25 mg tablet 25 mg PO BID blood pressure #60 04/28/24 05/07/24 11:00 Rx tabs potassium chloride 20 mEq 20 meq PO DAILY 04/29/24 04/28/24 History tablet,extended release bumetanide 2 mg tablet 2 mg PO BID 30 days #60 tabs 05/05/24 Unknown Rx Allergy/AdvReac Type Severity Reaction Status Date / Time Penicillins Allergy Unknown Verified 05/07/24 13:19 Sulfa (Sulfonamide Allergy Unknown Verified 05/07/24 13:19 Antibiotics) bupropion (From Wellbutrin) AdvReac Severe change in Verified 05/07/24 13:19 personality ,meanness and smoked more doxycycline AdvReac Severe Vomiting Verified 05/07/24 13:19 Family History Aunt Lung disease lung cancer Father Heart disease Hypertension Family history of high cholesterol Diabetes Mother Diabetes Daughter Epilepsy Surgical History History of esophagogastroduodenoscopy (EGD) Hx of vascular surgery History of excision of lesion History of incision and drainage History of coronary artery stent placement History of removal of cyst Hx of hernia repair History of tonsillectomy and adenoidectomy Social History household members: spouse Smoking Status: Current every day smoker tobacco type: cigarettes alcohol intake: never substance use type: does not use caffeine: Yes (7) Type: coffee additional social history: DOES NOT TAKE ASPIRIN DOES NOT TAKE IBUPROFEN Review of Systems (Anesthesia) ROS Narrative System reviewed and no additional complaints, except as documented.
[2024-05-07] MEDS: Clindamycin 900 MG/50 ML BAG 75 MG IV (14:28)
[2024-05-07] MEDS: Heparin 10,000 UNITS/10 ML Vial 10000 UNITS (14:39)
[2024-05-07] MEDS: Lidocaine 1% /Epi 1:100 (20ml) 20 ML Vial (14:39)
--- NOTE | 2024-05-07 14:43 | PCM.OPRPT ---
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 The right neck and chest were prepped and draped in usual sterile fashion. Ultrasound was used to inspect the right neck and the right IJ was identified. The skin overlying the right IJ was injected with local anesthetic. An incision was made with 11 blade scalpel. Next access needle was used to access the right IJ under ultrasound guidance. A guidewire was placed without difficulty under fluoroscopy. Next serial dilators were placed over the wire and then the peel-away sheath and then the wire was removed and a Was placed. Next an incision was made at the lower chest after injecting local anesthetic. The catheter was then guided under the skin and over the collarbone and tunneled to the upper incision and brought out the catheter was then placed through the peel-away sheath and the peel-away sheath was removed. It was confirmed in good placement on fluoroscopy. Next both catheters were aspirated and flushed and both aspirated and flushed easily. They were both instilled with 2 cc of heparinized saline and then clamped and capped. The catheter was then sutured to the skin using 4-0 nylon suture. The neck incision was closed with interrupted 3-0 Vicryl sutures. Steri-Strips were applied. Bandages were applied over the catheter. Patient will be taken to PACU and chest x-ray will be obtained. Surgical Findings: None Complications Complications: No Admit VTE Documentation VTE Mechan Device Prophylaxis: SCD's
--- NOTE | 2024-05-07 14:49 | DCINST_ITS ---
Discharge Instructions Procedure Port-A-Cath Diet Discharge Diet: Light diet - advance as tolerated (Pain medication may cause nausea. You should typically eat light foods as you take your pain medication.) Activity Discharge Activity: Return to Normal Activity and May Shower (with your bandage in place in 1-2 days after surgery) Additional Activity Instructions:: Resume Plavix tomorrow, 05/08 Dressing / Incision Call your doctor if your incision/area has: Continuous Slow Oozing, Sudden Increased Bleeding, Increased Pain/ Swelling, Increased Redness and Foul Smelling Discharge Call your doctor if you observe: Fever of 101 or Higher Remove Dressing in: 3 days Cleanse incision/area with: Soap & Water Follow Up Care Please Follow Up With: Isaias Castro MD When: as needed [phone] Test Results: Test results from this visit will be discussed in further detail at your follow- up appointment, if applicable. Discharge Plan Admission Attending Provider: Isaias Castro Primary Care Provider: Adina Bhat MANAGER WEB APPLICATION Instructions Print Language: Martiniquais Discharge Orders/Prescriptions Prescriptions: No Action ascorbic acid (vitamin C) 250 mg tablet 250 mg PO DAILY cholecalciferol (vitamin D3) 250 mcg (10,000 unit) capsule 250 mcg PO DAILY ferrous sulfate 325 mg (65 mg iron) tablet 325 mg PO DAILY docusate sodium 100 mg capsule 100 mg PO DAILY Tremfya 100 mg/mL syringe 100 mg subcut Q4W clopidogrel 75 mg tablet 75 mg PO DAILY Qty: 30 4RF clonidine HCl 0.1 mg tablet 0.05 mg PO BID 30 Days Qty: 30 4RF carvedilol 25 mg tablet 25 mg PO BID Qty: 60 12RF Rx Instructions: must administer with a meal/food pantoprazole 40 mg Tablet,Delayed Release (Dr/Ec) 40 mg PO BID Qty: 60 3RF atorvastatin 80 mg Tablet 80 mg PO QHS Qty: 30 2RF albuterol sulfate 90 mcg/actuation HFA aerosol inhaler See Rx Instructions .ROUTE .COMPLEX PRN (Reason: shortness of breath or wheezing) Qty: 8.5 0RF Rx Instructions: 1-2 puffs every 4-6 hours as needed for shortness of breath or wheezing potassium chloride 20 mEq tablet extended release 20 meq PO DAILY bumetanide 2 mg tablet 2 mg PO BID 30 Days Qty: 60 0RF nifedipine 90 mg tablet extended release 24hr 90 mg PO DAILY Qty: 90 3RF dapagliflozin propanediol [Farxiga] 10 mg tablet 10 mg PO QAM Qty: 90 3RF Referrals / Follow Up: Adina Bhat NP, MANAGER WEB APPLICATION-C [Primary Care Provider] - Disposition Disposition (needs filled in before D/C Order can be placed): Home, Self Care
--- NOTE | 2024-05-07 14:51 | PCM.POST.ANE ---
Anesthesia: Postop Eval I Current Vital Signs Temperature: 98.1 F Pulse Rate: 60 Blood Pressure: 187/62 Respiratory Rate: 16 Pulse Ox: 96 Oxygen Delivery Method: Room Air Assessment Airway patent: Yes Spontaneous unlabored respirations: Yes Mental status: Awake and Calm nausea: No Vomiting: No Anesthesia Complication: No Fluid Hydration Crystalloid volume administer (ml): 10 Total IV fluid infused: 10 Progress Note Anesthesia document: Postop Eval 1 completed: Yes
--- NOTE | 2024-05-07 15:24 | CASEMGMT ---
Tunneled cath Operative Report and Hep B results Faxed to Carlos @ [phone]. Documents sent through the portal as well. [facility] who states that there are no further needs.
--- NOTE | 2024-05-07 22:49 | POSTOPAN2_ITS ---
Anesthesia Postop Eval I Sum Postop Eval Completion status Anesthesia document: Postop Eval 1 completed: Yes Anesthesia Postop Eval I Summary Anesthesia Postop Eval I Summary: Anesthesia Postop Eval I: Assessment Summary Airway patent Yes 05/07/24 14:52 SERVICE ORDER DISPATCHER [email or web address].[email or web address] Spontaneous unlabored Yes 05/07/24 14:52 SERVICE ORDER DISPATCHER CHIEF.QUINN respirations Mental status Awake,Calm 05/07/24 14:52 SERVICE ORDER DISPATCHER CHIEF.KARINOBDana nausea No 05/07/24 14:52 SERVICE ORDER DISPATCHER CHIEF.KARINOBDana Vomiting No 05/07/24 14:52 SERVICE ORDER DISPATCHER CHIEF.KARINOBDana Anesthesia Postop Eval I: Fluid Summary Crystalloid volume administer 10 05/07/24 14:52 SERVICE ORDER DISPATCHER CHIEF.KARINOBY (ml) Colloids volume administered ( ml) Blood Product volume administered (ml) Total IV fluid infused 10 05/07/24 14:52 SERVICE ORDER DISPATCHER CHIEF.QUINN Anesthesia Postop Eval I: Summary Notes Anesthesia Complication No 05/07/24 14:52 SERVICE ORDER DISPATCHER CHIEF.QUINN Anesthesia Complication Comment: Post-operative progress note Anesthesia: Postop Eval II Evaluation Mental status: Awake and Calm Pain Level: 0 nausea: No Vomiting: No Complications Anesthesia Complication: No
--- NOTE | 2024-05-07 22:49 | PCM.POSTANE2 ---
Anesthesia Postop Eval I Sum Postop Eval Completion status Anesthesia document: Postop Eval 1 completed: Yes Anesthesia Postop Eval I Summary Anesthesia Postop Eval I Summary: Anesthesia Postop Eval I: Assessment Summary Airway patent Yes 05/07/24 14:52 OUTCOME ANALYST.SKOBY Spontaneous unlabored Yes 05/07/24 14:52 OUTCOME ANALYST.QUINN respirations Mental status Awake,Calm 05/07/24 14:52 OUTCOME ANALYST.KARINOBDana nausea No 05/07/24 14:52 OUTCOME ANALYST.KARINOBDana Vomiting No 05/07/24 14:52 OUTCOME ANALYST.KARINOBDnaa Anesthesia Postop Eval I: Fluid Summary Crystalloid volume administer 10 05/07/24 14:52 OUTCOME ANALYST.KARINOBY (ml) Colloids volume administered ( ml) Blood Product volume administered (ml) Total IV fluid infused 10 05/07/24 14:52 OUTCOME ANALYST.QUINN Anesthesia Postop Eval I: Summary Notes Anesthesia Complication No 05/07/24 14:52 OUTCOME ANALYST.QUINN Anesthesia Complication Comment: Post-operative progress note Anesthesia: Postop Eval II Evaluation Mental status: Awake and Calm Pain Level: 0 nausea: No Vomiting: No Complications Anesthesia Complication: No
== END 2024-05-07 15:41 | disposition home or self-care (01) ==
LOC: SDC 12:54 → AC 12:55
PROVIDERS: PCP Nurse Practitioner; Referring Provider Surgery; Visit Provider Surgery
PROC: (CPT 36558; principal; 2024-05-07 14:00)
DX: Z45.2 Encounter for adjustment and management of vascular access device (principal); N18.4 Chronic kidney disease, stage 4 (severe); I13.0 Hypertensive heart and chronic kidney disease with heart failure and stage 1 through stage 4 chronic kidney disease, or unspecified chronic kidney disease; I50.9 Heart failure, unspecified; J44.9 Chronic obstructive pulmonary disease, unspecified; E11.22 Type 2 diabetes mellitus with diabetic chronic kidney disease; E78.5 Hyperlipidemia, unspecified; F17.210 Nicotine dependence, cigarettes, uncomplicated; I25.10 Atherosclerotic heart disease of native coronary artery without angina pectoris; G47.30 Sleep apnea, unspecified; Z86.718 Personal history of other venous thrombosis and embolism; Z79.51 Long term (current) use of inhaled steroids; Z79.899 Other long term (current) drug therapy; Z86.73 Personal history of transient ischemic attack (TIA), and cerebral infarction without residual deficits; Z95.5 Presence of coronary angioplasty implant and graft
CPT/HCPCS: 36558; 76000; 82962; A4216